=== PATIENT | male | born 1965 | race Caucasian/White ===

== ENCOUNTER 2017-03-09 11:18 | Emergency (ER) | payer MEDICARE, MEDICAID ==
[~2017-03-09] VITALS: Ht 167.6 cm; Wt 113.4 kg
[~2017-03-09 11:18] MED LIST: ?BP MED; AMLO5TAB2 PO; AMOX500C2 PO; BENZ-13 PO; CEPH-507 PO; CYCL10TA9 PO; D-ME118S7 PO; DOXY100C42 PO; DXZS4T PO; GLIP5TAB13 PO; GLIPIZIDE; HYDR-3714 PO; INSU100V16 SQ; INSU100V5 SQ; INSU100V6 SQ; LANTUS SC; LISI10TA2 PO; LISINOPRIL; LOSA50TA2 PO; METFORMIN; METO200T4 PO; NAPR-243 PO; PENI500T PO; ROSU5TAB PO; TRAM-42 PO; TRM50T PO
[2017-03-09] MEDS ORDERED: PROPOFOL DRIP (ICU) 100 ML IV ONE (11:24)
[2017-03-09] MEDS: PROPOFOL DRIP (ICU) 100 ML IV SCH ×2 (11:30→12:05)
[2017-03-09 11:38] LABS: BASOPHILS % (AUTO) 0 % (0-10); EOSINOPHILS # (AUTO) 0.1 10^3/uL (0.0-0.3); EOSINOPHILS % (AUTO) 1 % (0-10); LYMPHOCYTES # (AUTO) 0.3 X 10^3 (1.0-4.0); LYMPHOCYTES % (AUTO) 5 % (12-44); MEAN CORPUSCULAR HEMOGLOBIN 31 PG (25-34); MEAN CORPUSCULAR HGB CONC 33 G/DL (32-36); MEAN CORPUSCULAR VOLUME 94 FL (80-99); MEAN PLATELET VOLUME 10.5 FL (7.4-10.4); MONOCYTES # (AUTO) 0.4 X 10^3 (0.0-1.0); MONOCYTES % (AUTO) 6 % (0-12); NEUTROPHILS % (AUTO) 87 % (42-75); PLATELET COUNT 150 10^3/uL (130-400); RED CELL DISTRIBUTION WIDTH 14.3 % (10.0-14.5); WHITE BLOOD COUNT 5.7 10^3/uL (4.3-11.0)
--- NOTE | 2017-03-09 11:46 | ED General ---
General Chief Complaint: Altered Mental Status Stated Complaint: SEIZURE ACTIVITY Source of Information: Patient Exam Limitations: Physical Impairments, Other (unresponsive) History of Present Illness Time Seen by Provider: 11:18 Initial Comments Here emergently by EMS intubated after RSI. He apparently was at the dialysis center when he became unresponsive and not breathing. EMS was called. He was found to be hypoxic in the 70s with poor respirations and very hypertensive as well as unresponsive. EMS attempted different airway maneuvers including oral and nasopharyngeal airway. Ultimately they were unable to keep oxygen saturation of and elected RSI and intubation. Prior to intubation, patient did have brief spontaneous movement of both arms and at least the right leg. Patient never became responsive and was not handling his airway well and intubation was completed with 8.0 tube. Patient did receive fentanyl 100 g IV and Versed 5 mg IV post intubation. Blood pressure was noted to be as high as 240s over 130s per EMS. He apparently walked into dialysis and was starting dialysis when this all occurred. Reportedly, the dialysis center was trying to get him to take blood pressure medicine prior to event which she refused. Unsure of how much dialysis the patient got today. Timing/Duration: 1/2 Hour Severity: Severe Allergies and Home Medications Allergies Coded Allergies: NKANo Known Allergies (Verified Allergy, Unknown, 06/13/05) Home Medications Amlodipine Besylate 5 Mg Tab, 10 MG PO DAILY, (Reported) Benzonatate 100 Mg Capsule, 1-2 TAB PO TID, #30 Prescribed by: JESSICA DIAZ on 02/27/15 0449 Cephalexin 500 Mg Capsule, 500 MG PO TID, #15 Prescribed by: JONATHAN MOOER on 06/09/15 1321 D-Methorphan Hb/Prometh HCl 118 Ml Syrup, 5-10 ML PO Q4H, #120 Prescribed by: JESSICA DIAZ on 02/27/15 0449 Doxazosin Mesylate 4 Mg Tab, 4 MG PO HS, (Reported) Doxycycline Monohydrate 100 Mg Capsule, 100 MG PO BID, #20 Prescribed by: JESSICA DIAZ on 02/27/15 044 Insulin Aspart 100 Unit/1 Ml Susp, 12 UNIT SQ PC, (Reported) Insulin Glargine,Hum.rec.anlog 100 Unit/1 Ml Vial, 60 UNIT SQ BID, (Reported) Losartan Potassium 50 Mg Tablet, 50 MG PO DAILY, (Reported) Metoprolol Succinate 200 Mg Tab.er.24h, 200 MG PO DAILY, (Reported) Rosuvastatin Calcium 5 Mg Tablet, 20 MG PO DAILY, (Reported) Tramadol HCl 50 Mg Tablet, 50 MG PO Q4H, #20 Prescribed by: JESSICA DIAZ on 02/27/15 0449 Constitutional: see HPI Other Unable to complete review of systems due to critical condition. Past Emljiea-Xgbqqu-Putuso Hx Immunizations Up To Date Tetanus Booster (TDap): Unknown Seasonal Allergies Seasonal Allergies: No Surgeries History of Surgeries: Yes Surgeries: Arteriovenous Shunt, Dialysis, Orthopedic Cardiovascular Cardiac Disorders: High Cholesterol, Hypertension Reproductive System Hx Reproductive Disorders: No Sexually Transmitted Disease: No HIV/AIDS: No Genitourinary Genitourinary Disorders: Renal Failure, Dialysis Musculoskeletal Musculoskeletal Disorders: Back Injury Endocrine Endocrine Disorders: Diabetes, Non-Insulin dep HEENT Loss of Vision: Denies Hearing Impairment: Denies Blood Transfusions Adverse Reaction to a Blood Tr: No Reviewed Nursing Assessment Reviewed/Agree w Nursing PMH: Yes Family Medical History Other All records per chart review as patient is unresponsive and intubated. Family Medial History: Blood clots 19 MOTHER Diabetes mellitus 19 MOTHER Hypertension 19 MOTHER Physical Exam Vital Signs Vital Sign - Last 12Hours 03/09/17 03/09/17 11:30 11:41 Temp 98.0 Pulse 92 Resp 14 B/P (MAP) 162/91 Pulse Ox 96 O2 Delivery Mechanical Ventilator FiO2 100 Capillary Refill : General Appearance: WD/WN, Obese, Other (unresponsive) HEENT: PERRL/EOMI, Pharynx Normal Neck: Non Tender, Supple Respiratory: Lungs Clear (with bagging), Other (equal breath sounds bilaterally with bagging) Cardiovascular: Regular Rate, Rhythm, No Murmur Gastrointestinal: Non Tender, No Distended Extremity: Normal Inspection, No Pedal Edema, Other (dialysis shunt to her left arm.) Neurologic/Psychiatric: Other (unresponsive) Skin: Normal Color, Warm/Dry Focused Exam Evaluation Lactate Level Laboratory Tests 03/09/17 11:28: Lactic Acid Level 5.86*H Lactic Acid Level Laboratory Tests Test 03/09/17 11:28 Lactic Acid Level 5.86 MMOL/L (0.50-2.00) *H Progress/Results/Core Measures Suspected Sepsis SIRS Temperature: Pulse: Respiratory Rate: Laboratory Tests 03/09/17 11:25: White Blood Count 5.7 Blood Pressure / Mean: Laboratory Tests 03/09/17 11:28: Lactic Acid Level 5.86*H Laboratory Tests 03/09/17 11:25: Creatinine 5.21H, Platelet Count 150, Total Bilirubin 0.8 Results/Orders Lab Results Laboratory Tests Test 03/09/17 11:25 03/09/17 11:28 03/09/17 11:39 Range/Units White Blood Count 5.7 4.3-11.0 10^3/uL Red Blood Count 3.10 L 4.35-5.85 10^6/uL Hemoglobin 9.6 L 13.3-17.7 G/DL Hematocrit 29 L 40-54 % Mean Corpuscular Volume 94 80-99 FL Mean Corpuscular Hemoglobin 31 25-34 PG Mean Corpuscular Hemoglobin Concent 33 32-36 G/DL Red Cell Distribution Width 14.3 10.0-14.5 % Platelet Count 150 130-400 10^3/uL Mean Platelet Volume 10.5 H 7.4-10.4 FL Neutrophils (%) (Auto) 87 H 42-75 % Lymphocytes (%) (Auto) 5 L 12-44 % Monocytes (%) (Auto) 6 0-12 % Eosinophils (%) (Auto) 1 0-10 % Basophils (%) (Auto) 0 0-10 % Neutrophils # (Auto) 5.0 1.8-7.8 X 10^3 Lymphocytes # (Auto) 0.3 L 1.0-4.0 X 10^3 Monocytes # (Auto) 0.4 0.0-1.0 X 10^3 Eosinophils # (Auto) 0.1 0.0-0.3 10^3/uL Basophils # (Auto) 0.0 0.0-0.1 10^3/uL Neutrophils % (Manual) 93 % Lymphocytes % (Manual) 4 % Monocytes % (Manual) 2 % Eosinophils % (Manual) 1 % Blood Morphology Comment NORMAL Sodium Level 136 135-145 MMOL/L Potassium Level 3.3 L 3.6-5.0 MMOL/L Chloride Level 94 L 98-107 MMOL/L Carbon Dioxide Level 22 21-32 MMOL/L Anion Gap 20 H 5-14 MMOL/L Blood Urea Nitrogen 28 H 7-18 MG/DL Creatinine 5.21 H 0.60-1.30 MG/DL Estimat Glomerular Filtration Rate 12 BUN/Creatinine Ratio 5 Glucose Level 200 H 70-105 MG/DL Calcium Level 8.2 L 8.5-10.1 MG/DL Magnesium Level 1.9 1.8-2.4 MG/DL Total Bilirubin 0.8 0.1-1.0 MG/DL Aspartate Amino Transf (AST/SGOT) 24 5-34 U/L Alanine Aminotransferase (ALT/SGPT) 21 0-55 U/L Alkaline Phosphatase 78 40-136 U/L Creatine Kinase MB 18.2 *H <6.6 NG/ML Troponin I < 0.30 <0.30 NG/ML C-Reactive Protein High Sensitivity 0.34 0.00-0.50 MG/DL Total Protein 7.8 6.4-8.2 GM/DL Albumin 4.1 3.2-4.5 GM/DL Lactic Acid Level 5.86 *H 0.50-2.00 MMOL/L Urine Color YELLOW Urine Clarity CLEAR Urine pH 8 5-9 Urine Specific [place] 1.015 L 1.016-1.022 Urine Protein 4+ NEGATIVE Urine Glucose (UA) 2+ H NEGATIVE Urine Ketones NEGATIVE NEGATIVE Urine Nitrite NEGATIVE NEGATIVE Urine Bilirubin NEGATIVE NEGATIVE Urine Urobilinogen NORMAL NORMAL MG/DL Urine Leukocyte Esterase NEGATIVE NEGATIVE Urine RBC (Auto) 4+ H NEGATIVE Urine RBC 2-5 H /HPF Urine WBC 5-10 H /HPF Urine Squamous Epithelial Cells 0-2 /HPF Urine Crystals NONE /LPF Urine Amorphous Sediment FEW RAJENDRA URATES H /LPF Urine Bacteria TRACE /HPF Urine Casts NONE /LPF Urine Mucus SMALL H /LPF Urine Other FEW SPERM H /HPF Urine Culture Indicated YES My Orders Orders - SIMI DODGE MD Propofol Drip (Icu) (Diprivan Drip (Icu) (03/09/17 11:24) Cbc With Automated Diff (03/09/17 11:25) Comprehensive Metabolic Panel (03/09/17 11:25) Creatine Kinase Mb (03/09/17 11:25) Hs C Reactive Protein (03/09/17 11:25) Lactic Acid Analyzer (03/09/17 11:25) Magnesium (03/09/17 11:25) Troponin I (03/09/17 11:25) Ua Culture If Indicated (03/09/17 11:25) Ct Head Wo-R/O Stroke (03/09/17 11:25) Saline Lock/Iv-Start (03/09/17 11:25) Chest 1 View, Ap/Pa Only (03/09/17 11:25) Rt Request For Service (03/09/17 11:25) Ekg Tracing (03/09/17 11:25) Catheter(Urinary) Insert & Ass 03,15 (03/09/17 11:25) O2 (03/09/17 11:25) Monitor-Rhythm Ecg Trace Only (03/09/17 11:25) End Tidal Co2 (03/09/17 11:25) Blood Culture (03/09/17 11:25) Ng Tube Insert & Assessment (03/09/17 11:25) Propofol Drip (Icu) (Diprivan Drip (Icu) (03/09/17 11:30) Sputum Culture (03/09/17 11:40) Manual Differential (03/09/17 11:25) Midazolam Injection (Versed Injection) (03/09/17 12:15) Midazolam Injection (Versed Injection) (03/09/17 12:09) Urine Culture (03/09/17 11:39) Piperacillin Sodium/Tazobactam (Zosyn Vi (03/09/17 12:45) Ns (Ivpb) (Sodium C... W/Nicardipine Iv (03/09/17 13:15) Levetiracetam Injection (Keppra Injectio (03/09/17 13:07) Medications Given in ED Current Medications Medications Dose Ordered Sig/Jesse Route Start Time Stop Time Status Last Admin Dose Admin Midazolam HCl 5 mg ONCE ONCE IVP 03/09/17 12:15 03/09/17 12:16 DC 03/09/17 12:10 5 MG Piperacillin Sod/ Tazobactam Sod 2.25 gm/Sodium Chloride 100 ml @ 200 mls/hr ONCE ONCE IV 03/09/17 12:45 03/09/17 13:14 DC 03/09/17 13:18 200 MLS/HR Vital Signs/I&O Vital Sign - Last 12Hours 03/09/17 03/09/17 03/09/17 03/09/17 11:30 11:41 12:05 12:12 Temp 98.0 97.3 98.5 Pulse 92 91 90 96 Resp 14 19 18 14 B/P (MAP) 162/91 162/91 172/98 (122) Pulse Ox 96 95 96 96 O2 Delivery Mechanical Ventilator Mechanical Ventilator FiO2 100 03/09/17 12:51 Pulse 95 Resp 20 Pulse Ox 98 FiO2 80 Capillary Refill : Progress Note : Progress Note Seen and evaluated on arrival by EMS. Patient has been intubated in is being ventilated via [id number]. IV established. Patient has IO established by EMS to the left tibia. Labs, blood cultures, lactic acid, EKG, chest x-ray and CT head ordered. Postintubation sedation initiated with propofol drip. 1200: I did speak with patient's primary care doctor to try to establish is typical place of care at [facility] and it appears to be [facility] in [facility]. We will initiate transfer process with them after CT head is complete. 1232: Notified by radiology of interparenchymal and subarachnoid bleed with concerns for MCA distribution aneurysm with rupture. The closest center available to care for this type of significant injury would be [facility] in [place]. 1236 initiated contact with [facility]. 1245: Report given. Pending acceptance. Family has been updated of all concerns and the critical nature of the situation. Helicopter flight service on standby. 1304: has called back and they have accepted patient for transfer. Dr. Del Valle accepting. Crusting initiation of Keppra 1000 mg IV as well as initiated standard to keep blood pressure less than 140 systolic. Currently his blood pressure is 147/87. We will initiate nicardipine drip to decrease blood pressure. While in 1330: Report given to flight crew by me. To [facility]. ECG Initial ECG Impression Date: Mar 09, 2017 Initial ECG Impression Time: :22 Initial ECG Rate: 93 Initial ECG Rhythm: Normal Sinus Comment Sinus rhythm with left atrial abnormality. LVH noted. Normal axis. Nonspecific intraventricular conduction delay noted. Overall similar to previous of 02/27/15. Interpreted by me. No evidence of ST elevation [place]. Diagnostic Imaging Diagonstic Imaging: Xray Plain Films/CT/US/NM/MRI: chest [facility] [place], [place] NAME: HARMEET DAVIS REC#: [id number] PT STATUS: REG ER : 1965 PHYSICIAN: SIMI DODGE MD ADMIT DATE: 03/09/17/ER Draft Date of Exam:03/09/17 CHEST 1 VIEW, AP/PA ONLY INDICATION: Tube placement, stroke. COMPARISON: 02/27/2015. TECHNIQUE: Frontal radiographs of the chest dated 03/09/2017. FINDINGS: Endotracheal tube is present with the distal tip approximately 1.7 cm above the level of the tiara. Enteric catheter is present with the distal tip extending into the stomach. The cardiac silhouette appears enlarged, though the left heart border is predominantly obscured. Near-complete opacification of the left hemithorax. The right lung appears grossly clear. No significant right pleural effusion. No pneumothorax. No acute osseous abnormality. IMPRESSION: 1. Near complete opacification of the left hemithorax. This likely relates to a combination of pleural fluid with adjacent atelectasis and/or infiltrate. Recommend clinical correlation. Radiographic followup is recommended to ensure resolution as underlying mass lesion in this location is not excluded. 2. Cardiomegaly. 3. Slightly low-lying endotracheal tube. This has been retracted prior to dictation. 4. Additional findings as above. 5. Findings discussed Dr. Dodge prior to dictation. Dictated on workstation # [id number] Dict: 03/09/17 1236 Trans: 03/09/17 1247 KB [id number] Interpreted by: KALYANI BRAY MD Electronically signed by: Reviewed: Reviewed by Me, Discussed w/Radiologist Diagonstic Imaging: CT Plain Films/CT/US/NM/MRI: head Comments VIA [place], [place] NAME: HARMEET DAVIS [facility] REC#: [id number] PT STATUS: REG ER : 1965 PHYSICIAN: SIMI DODGE MD ADMIT DATE: 03/09/17/ER Draft Date of Exam:03/09/17 CT HEAD WO-R/O STROKE INDICATION: Stroke. COMPARISON: None available. TECHNIQUE: Multiple contiguous axial CT images are obtained through the head without use of intravenous contrast dated 03/09/2017. FINDINGS: A 2.4 x 2.0 cm hypodensity is identified within the anterior aspect of the right temporal lobe. This demonstrates minimal adjacent hypodensity. This is associated with a small amount of extra-axial fluid which appears to be within the subarachnoid space overlying the right frontal and temporal lobes. No additional intracranial hemorrhage. No midline shift, herniation, or hydrocephalus. No CT evidence of a large acute territorial ischemic infarction. The orbits are unremarkable. Endotracheal tube and nasoenteric catheter are partially visualized. The calvarium and extracalvarial soft tissues are unremarkable. IMPRESSION: Findings concerning for intraparenchymal hemorrhage within the anterior aspect of the right temporal lobe with adjacent edema. This is associated with a small amount of subarachnoid hemorrhage overlying the right frontotemporal lobes. Given location, this could relate to an underlying middle cerebral artery aneurysm. Therefore, recommend a CT angiogram of the head for further evaluation. Additional findings as above. Findings discussed with Dr. Dodge at 1235 hours on 03/09/2017. Dictated on workstation # [id number] Dict: 03/09/17 1228 Trans: 03/09/17 1244 KB [id number] Interpreted by: KALYANI BRAY MD Electronically signed by: Reviewed: Reviewed by Me, Discussed w/Radiologist Departure Impression Impression: Primary Impression: Subarachnoid hemorrhage Additional Impressions: Intraparenchymal hemorrhage of brain Brain aneurysm Disposition: XF [facility]-TRM HOSP Condition: Critical Transfer Time Spoke to Accepting Phy: 13:04 Transfer Time: 13:04 Transfer Facility: [place], [place], Dr. Del Valle accepting Method of Transfer: Air Departure-Patient Inst. Referrals: [facility] (PCP/Family) Primary Care Physician SIMI DODGE MD Mar 09, 2017 11:46
[2017-03-09 11:55] LABS: ALANINE AMINOTRANSFERASE 21 U/L (0-55); ALBUMIN 4.1 GM/DL (3.2-4.5); ANION GAP 20 MMOL/L (5-14); ASPARTATE AMINO TRANSFERASE 24 U/L (5-34); BILIRUBIN,TOTAL 0.8 MG/DL (0.1-1.0); BLOOD UREA NITROGEN 28 MG/DL (7-18); BUN/CREATININE RATIO 5; CALCIUM 8.2 MG/DL (8.5-10.1); CARBON DIOXIDE 22 MMOL/L (21-32); CHLORIDE 94 MMOL/L (98-107); CREATININE SERUM 5.21 MG/DL (0.60-1.30); GFR ESTIMATED 12; GLUCOSE 200 MG/DL (70-105); MAGNESIUM 1.9 MG/DL (1.8-2.4); POTASSIUM 3.3 MMOL/L (3.6-5.0); SODIUM 136 MMOL/L (135-145); TOTAL PROTEIN 7.8 GM/DL (6.4-8.2); hs C REACTIVE PROTEIN 0.34 MG/DL (0.00-0.50)
[2017-03-09 11:58] LABS: BILIRUBIN,URINE NEGATIVE (NEGATIVE); KETONES,URINE NEGATIVE (NEGATIVE); LEUKOCYTE ESTERASE ,URINE NEGATIVE (NEGATIVE); NITRITE,URINE NEGATIVE (NEGATIVE); PH,URINE 8 (5-9); PROTEIN,URINE 4+ (NEGATIVE); UROBILINOGEN,URINE NORMAL (NORMAL)
[2017-03-09 12:04] LABS: TROPONIN I < 0.30 NG/ML (<0.30)
[2017-03-09] MEDS ORDERED: MIDAZOLAM 5 MG/5 ML (VERSED) VIAL ONE (12:09)
[2017-03-09] MEDS ORDERED: MIDAZOLAM 5 MG/5 ML (VERSED) VIAL IVP ONE (12:15)
[2017-03-09 12:21] LABS: SQUAMOUS EPITHELIAL CELL,UR 0-2 /HPF
--- NOTE | 2017-03-09 12:44 | Diagnostic Imaging Report ---
INDICATION: Stroke. COMPARISON: None available. TECHNIQUE: Multiple contiguous axial CT images are obtained through the head without use of intravenous contrast dated 03/09/2017. FINDINGS: A 2.4 x 2.0 cm hypodensity is identified within the anterior aspect of the right temporal lobe. This demonstrates minimal adjacent hypodensity. This is associated with a small amount of extra-axial fluid which appears to be within the subarachnoid space overlying the right frontal and temporal lobes. No additional intracranial hemorrhage. No midline shift, herniation, or hydrocephalus. No CT evidence of a large acute territorial ischemic infarction. The orbits are unremarkable. Endotracheal tube and nasoenteric catheter are partially visualized. The calvarium and extracalvarial soft tissues are unremarkable. IMPRESSION: Findings concerning for intraparenchymal hemorrhage within the anterior aspect of the right temporal lobe with adjacent edema. This is associated with a small amount of subarachnoid hemorrhage overlying the right frontotemporal lobes. Given location, this could relate to an underlying middle cerebral artery aneurysm. Therefore, recommend a CT angiogram of the head for further evaluation. Additional findings as above. Findings discussed with Dr. Vivas at 1235 hours on 03/09/2017. Dictated by: Dictated on workstation # [id number]
[2017-03-09] MEDS ORDERED: PIPERACILLIN SODIUM/TAZOBACTAM 2.25 GM in NS (IVPB) 100 ML IV ONE (12:45)
--- NOTE | 2017-03-09 12:47 | Diagnostic Imaging Report ---
INDICATION: Tube placement, stroke. COMPARISON: 02/27/2015. TECHNIQUE: Frontal radiographs of the chest dated 03/09/2017. FINDINGS: Endotracheal tube is present with the distal tip approximately 1.7 cm above the level of the tiara. Enteric catheter is present with the distal tip extending into the stomach. The cardiac silhouette appears enlarged, though the left heart border is predominantly obscured. Near-complete opacification of the left hemithorax. The right lung appears grossly clear. No significant right pleural effusion. No pneumothorax. No acute osseous abnormality. IMPRESSION: 1. Near complete opacification of the left hemithorax. This likely relates to a combination of pleural fluid with adjacent atelectasis and/or infiltrate. Recommend clinical correlation. Radiographic followup is recommended to ensure resolution as underlying mass lesion in this location is not excluded. 2. Cardiomegaly. 3. Slightly low-lying endotracheal tube. This has been retracted prior to dictation. 4. Additional findings as above. 5. Findings discussed Dr. Vivas prior to dictation. Dictated by: Dictated on workstation # [id number]
[2017-03-09] MEDS ORDERED: LEVETIRACETAM INJECTION 1,000 MG in NS (IVPB) 100 ML IV STA (13:07)
[2017-03-09 13:09] LABS: EOSINOPHILS % (MANUAL) 1 %; LYMPHOCYTES % (MANUAL) 4 %; NEUTROPHILS % (MANUAL) 93 %
[2017-03-09] MEDS ORDERED: niCARdipine IV 50 MG in NS (IVPB) 230 ML IV SCH (13:15)
[2017-03-09 14:08] VITALS: BP 145/85
== END 2017-03-09 14:08 | disposition short-term general hospital (02) ==
LOC: EDUNIT# 11:18 → ER 11:20
DX: I60.9 Nontraumatic subarachnoid hemorrhage, unspecified (principal); E78.00 Pure hypercholesterolemia, unspecified; I10 Essential (primary) hypertension; E11.9 Type 2 diabetes mellitus without complications; Z99.2 Dependence on renal dialysis
CPT/HCPCS: 36415; 51702; 70450; 71010; 80053; 81000; 82553; 83605; 83735; 84484; 85007; 85027; 86141; 87040; 87070; 87077; 87088; 87186; 87205; 93005; 93041; 94799

== ENCOUNTER 2017-03-26 16:23 | Inpatient (IN) | payer MEDICARE, MEDICAID ==
[~2017-03-26] VITALS: Ht 175.3 cm; Wt 104.1 kg
[2017-03-26 18:15] VITALS: BP 176/42
--- OUTSIDE RECORDS SUMMARY | 2017-03-26 19:19 | XMS REPORT | Continuity of Care Document ---
Author Author [employer] Organization [employer] Address Unknown Phone Unavailable Care Team Providers Care Manhole Stripper Name Role Phone [employer] Unavailable Unavailable Problems Medications Allergies, Adverse Reactions, Alerts Immunizations Results Vital Signs Encounters Procedures Plan of Care Social History Assessment and Plan Family History Value Date Source Advance Directives Order Name Results Value Date Source
--- OUTSIDE RECORDS SUMMARY | 2017-03-26 19:20 | XMS REPORT | Clinical Summary ---
Author Author [facility] Organization [facility] Address Unknown Phone Unavailable Care Team Providers Care Appeals Rn Name Role Phone PCP Unavailable Source Comments Some departments are not documenting in the electronic medical record. If you do not see the information that you expected, contact Release of Information in the Health Information Management department at [phone] for further assistance in locating additional records.[facility] Allergies No Known Allergies Current Medications Prescription Sig. Disp. Refills Start End Date Status Date amLODIPine (NORVASC) 10 Take 10 mg by mouth Active mg tablet daily. ferric citrate 210 mg Take 210 mg by mouth Active iron tab twice daily. calcium acetate (PHOSLO) Take two tablets with Active 667 mg capsule meals and take one with snacks doxazosin (CARDURA) 8 mg Take 8 mg by mouth at Active tablet bedtime daily. atorvastatin (LIPITOR) 10 Take 10 mg by mouth at Active mg tablet bedtime daily. albuterol (VENTOLIN HFA) Inhale 2 puffs by mouth Active 90 mcg/actuation inhaler into the lungs every 4 hours as needed for Wheezing or Shortness of Breath. Shake well before use. acetaminophen (TYLENOL) Take 2 tablets by mouth 0 03/26/20 Active 325 mg tablet every 4 hours as needed. 17 levETIRAcetam (KEPPRA) Take 2 tablets by mouth 03/26/20 Active 750 mg tablet daily. Do not stop being 17 used for seizure control nystatin (MYCOSTATIN) Take 5 mL by mouth four 0 03/26/20 Active 100,000 units/mL oral times daily. 17 suspension QUEtiapine (SEROQUEL) 50 Take 1 tablet by mouth 03/26/20 Active mg tablet twice daily. 17 metoprolol XL (TOPROL XL) Take 1 tablet by mouth 03/26/20 Active 100 mg extended release twice daily. Titration 17 tablet towards home dose 200mg BID niMODipine (NIMOTOP) 30 Take 2 capsules by mouth 48 capsule 0 03/30/20 Active mg capsule every 4 hours for 4 days. 17 17 senna/docusate Take 10 mL by mouth twice 03/26/20 Active (SENOKOT-S) 8.8/50 mg /10 daily. 17 mL solution methylcellulose Apply 1 drop to right eye 12 03/26/20 Active (GONIOSOL) 2.5 % as directed as Needed. 17 ophthalmic Indications: DRY EYE solutionIndications: DRY EYE melatonin 3 mg tab Take 1 tablet by mouth at 03/26/20 Active bedtime daily. 17 losartan (COZAAR) 50 mg Take 2 tablets by mouth 90 tablet 3 03/26/20 Active tablet daily. 17 heparin (porcine) PF Inject 0.5 mL under the 03/26/20 Active 5,000units/0.5mL skin every 8 hours. 17 injection syringe fluticasone/salmeterol Inhale 1 puff by mouth 03/15/20 Discontin (ADVAIR DISKUS) 250/50 into the lungs daily. 17 ued mcg inhalation disk baclofen (LIORESAL) 10 mg Take 10 mg by mouth twice 03/26/20 Suspended tablet daily. 17 HYDROcodone/acetaminophen Take 1 tablet by mouth 03/26/20 Suspended (NORCO) 7.5/325 mg tablet every 6 hours as needed 17 for Pain losartan-hydrochlorothiaz Take 1 tablet by mouth 03/26/20 Suspended kris (HYZAAR) 100-25 mg every morning. 17 tablet furosemide (LASIX) 40 mg Take 40 mg by mouth twice 03/26/20 Suspended tablet daily. 17 metoprolol tartrate Take 200 mg by mouth 03/11/20 Discontin (LOPRESSOR) 100 mg tablet twice daily. 17 ued losartan(+) (COZAAR) 100 Take 100 mg by mouth 03/11/20 Discontin mg tablet daily. 17 ued metOLazone (ZAROXOLYN) 5 Take 5 mg by mouth daily. 03/15/20 Discontin mg tablet 17 ued METOPROLOL SUCCINATE PO Take 200 mg by mouth at 03/09/20 Discontin bedtime daily. 17 ued minoxidil (LONITEN) 10 mg Take 10 mg by mouth twice 03/15/20 Discontin tablet daily. 17 ued insulin aspart (NOVOLOG) Inject 12 Units under the 03/15/20 Discontin 100 unit/mL injection skin three times daily 17 ued with meals. insulin glargine (LANTUS) Inject 60 Units under the 03/15/20 Discontin 100 unit/mL injection skin twice daily. 1 vial 17 ued contains 10mL metoprolol XL (TOPROL XL) Take 200 mg by mouth 03/26/20 Suspended 200 mg extended release twice daily. 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 Overview: Added automatically from request for surgery [id number] Acquired skull defect 03/09/2017 Overview: Added automatically from request for surgery [id number] Encounters Date Type Specialty Care Team Description 03/24/2017 Anesthesia Tania Britt CRNA Event 03/22/2017 Procedure Pass 03/16/2017 Procedure Pass 03/13/2017 Procedure Pass 03/13/2017 Procedure Pass 03/13/2017 Procedure Pass 03/11/2017 Procedure Pass 03/10/2017 Anesthesia Afia Person CRNA Event 03/10/2017 Procedure Pass 03/10/2017 Surgery Edgar Bee MD REPAIR ANEURYSM CRANIOTOMY 03/10/2017 Procedure Pass 03/10/2017 Procedure Pass 03/10/2017 Procedure Pass 03/10/2017 Surgery Edgar Bee MD Rt pterional craniotomy for clipping of MCA aneurysm 03/09/2017 [facility] Melissa Del Valle MD Ruptured cerebral - Encounter Edgar Bee MD aneurysm ([facility]) 03/26/2017 03/09/2017 Hospital Radiology Encounter 03/09/2017 Anesthesia Flor Perez MD Event 03/09/2017 Prep for Case Faraz Hernandez MD 03/09/2017 Anesthesia Radiology Juan Carlos Bunch MD Event 03/09/2017 Hospital Radiology Encounter 03/09/2017 Ancillary Radiology Outpatient, Radiologist Diagnosis unknown Orders 03/09/2017 Procedure Pass from Last 3 Months Family History Medical History Relation Name Comments Blood Clots Mother Diabetes Mother Hypertension Mother Relation Name Status Comments Mother Social History Tobacco Use Types Packs/Day Years Used Date Current Every Day Smoker 1 30 Sex Assigned at Date Recorded Not on file Last Filed Vital Signs Vital Sign Reading Time Taken Blood Pressure 192/83 03/26/2017 1:47 PM [employer]ICE [employer]AD Pulse 72 03/26/2017 1:47 PM [employer] SERVICE LEAD Temperature 36.8 C (98.3 F) 03/26/2017 1:47 PM [employer] SERVICE LEAD Respiratory Rate - - Oxygen Saturation 95% 03/26/2017 1:47 PM [employer] SERVICE LEAD Inhaled Oxygen - - Concentration Weight 105.9 kg (233 lb 7.5 oz) 03/26/2017 12:47 PM [employer]OD SERVICE LEAD Height 172.7 cm (5' 8") 03/11/2017 3:28 PM [employer]OD SERVICE LEAD Body Mass Index 35.5 03/26/2017 12:47 PM [employer]OD SERVICE LEAD Plan of Treatment Health Maintenance Due Date Last Done Comments PHYSICAL (COMPREHENSIVE) 08/21/1974 EXAM PERTUSSIS VACCINE 08/21/1978 TETANUS VACCINE 08/21/1984 INFLUENZA VACCINE 11/06/2016 Implants Implanted Type Area Medical Device Assembler Device Expiration Model / Identifier Date Serial / Lot Patch Dural 2x2in Lyoplant Cranial AESCULAP NEURO 01/05/2022 106 7020 / Bovine Pericardium Onlay - [id number] DIVISION [id number] / Implanted: Qty: 1 on 03/10/2017 by [id number] Edgar Bee MD Clip Aneurysm 21mm S-Lhusfokp-Pxge UNIDENTIFIED 45.858 / 1.77n 13.5mm Open - [id number] [facility] [id number] / Implanted: Qty: 1 on 03/10/2017 by [id number] Edgar Bee MD Clip Aneurysm 3mm 3.5mm UNIDENTIFIED 45.597 / R-Lknytxfj-Bmeg 1.47n 7.7mm Open - [facility] [id number] / [id number] Implanted: Qty: 1 on 03/10/2017 by Edgar Bee MD L-Aneurysm Clip Ti Perm - [id number] UNIDENTIFIED 45.902 / Implanted: Qty: 1 on 03/10/2017 by [facility] [id number] / [place] [id number] Mesh Cranial .6mm Large Temporal UNIDENTIFIED 25-006-51- Titanium Latex Free - [id number] [facility] 09 / Implanted: Qty: 1 on 03/10/2017 by [id number] Edgar Bee MD / [id number] Cover Rashmi Hole L17mm Od3mm - A[facility] [id number]- [id number] IMPLANTS 09 / Implanted: Qty: 1 on 03/10/2017 by [id number] Edgar Bee MD / [id number] Plate Bone 1.5mm Long Straight [facility] 25-302-13- Cranial Titanium 2 Hole Low - IMPLANTS 09 / [id number] Implanted: Qty: 1 on 03/10/2017 by / Edgar Bee MD [id number] Substitute Tissue 5x4in Lyoplant AESCULAP NEURO 106 7050 / Dura Onlay Absorbable - [id number] DIVISION [id number] / Implanted: Qty: 1 on 03/10/2017 by [id number] Edgar Bee MD Screw Neuro 1.5x4mm Drill Free - Right: [facility] 25-975-04- Sna Skull IMPLANTS 91 / Implanted: Qty: 10 on 03/10/2017 by NA / Edgar Bee MD NA Procedures Procedure Name Priority Date/Time Associated Diagnosis Comments CONSULT IV THERAPY TEAM Routine 03/19/2017 9:43 AM [employer]OD SERVICE LEAD ECG-SCAN 03/12/2017 Results for this 10:05 AM FOOD SERVICE LEAD procedure are in the results section. ECG-SCAN 03/12/2017 Results for this 10:05 AM FOOD SERVICE LEAD procedure are in the results section. ECG-SCAN 03/12/2017 Results for this 10:05 AM FOOD SERVICE LEAD procedure are in the results section. ECG-SCAN 03/12/2017 Results for this 10:05 AM FOOD SERVICE LEAD procedure are in the results section. REPAIR ANEURYSM 03/10/2017 Brain aneurysm CRANIOTOMY 8:15 PM FOOD SERVICE LEAD Rt pterional craniotomy 03/10/2017 Ruptured cerebral for clipping of MCA 8:00 AM FOOD SERVICE LEAD aneurysm (HCC) aneurysm from Last 3 Months Results * POC GLUCOSE (03/26/2017 1:47 PM) Only the most recent of 71 results within the time period is included. Component Value Ref Range Glucose, POC 103 (H) 70 - 100 MG/DL Specimen Performing Laboratory [facility] [address] [place] [address] * HEMODIALYSIS DATE (03/26/2017 1:10 PM) Only the most recent of 9 results within the time period is included. Narrative Dima Glasgow RN 03/26/20171:10 PM 0848: Consent confirmed, assessment complete and charted. Patient's LFA AV Fistula was accessed with two #15 fistula needles upon the first attempt. Treatment was started at this time. 1247: Blood returned, needles de-cannulated, bleeding stopped in <10min. Treatment completed at this time. * HEMODIALYSIS INPATIENT (03/26/2017 1:10 PM) Only the most recent of 9 results within the time period is included. Rose Glasgow RN 03/26/20171:10 PM 0848: Consent confirmed, assessment complete and charted. Patient's LFA AV Fistula was accessed with two #15 fistula needles upon the first attempt. Treatment was started at this time. 1247: Blood returned, needles de-cannulated, bleeding stopped in <10min. Treatment completed at this time. * CBC AND DIFF (03/26/2017 4:20 AM) Only the most recent of 17 results within the time period is included. Component Value Ref Range White Blood Cells 6.1 4.5 - 11.0 K/UL RBC 3.00 (L) 4.4 - 5.5 M/UL Hemoglobin 9.4 (L) 13.5 - 16.5 GM/DL Hematocrit 27.2 (L) 40 - 50 % MCV 90.8 80 - 100 FL MCH 31.5 26 - 34 PG MCHC 34.6 32.0 - 36.0 G/DL RDW 14.5 11 - 15 % Platelet Count 221 150 - 400 K/UL MPV 8.5 7 - 11 FL Neutrophils 79 (H) 41 - 77 % Lymphocytes 7 (L) 24 - 44 % Monocytes 9 4 - 12 % Eosinophils 4 0 - 5 % Basophils 1 0 - 2 % Absolute Neutrophil Count 4.80 1.8 - 7.0 K/UL Absolute Lymph Count 0.40 (L) 1.0 - 4.8 K/UL Absolute Monocyte Count 0.60 0 - 0.80 K/UL Absolute Eosinophil Count 0.20 0 - 0.45 K/UL Absolute Basophil Count 0.00 0 - 0.20 K/UL Specimen Performing Laboratory [facility] [address] [place] [address] * BASIC METABOLIC PANEL (03/26/2017 4:20 AM) Only the most recent of 18 results within the time period is included. Component Value Ref Range Sodium 134 (L) 137 - 147 MMOL/L Potassium 5.7 (H) 3.5 - 5.1 MMOL/L Chloride 93 (L) 98 - 110 MMOL/L CO2 16 (L) 21 - 30 MMOL/L Anion Gap 25 (H) 3 - 12 Glucose 118 (H) 70 - 100 MG/DL Blood Urea Nitrogen 77 (H) 7 - 25 MG/DL Creatinine 10.46 (H) 0.4 - 1.24 MG/DL Calcium 11.0 (H) 8.5 - 10.6 MG/DL eGFR Non 5 (L) >60 mL/min Comment: The eGFR is not validated for use in drug dosing adjustments. Continue to use estimated creatinine clearance per dosing reference text. Please contact the Clinical Pharmacist for questions. eGFR 6 (L) >60 mL/min Comment: The eGFR is not validated for use in drug dosing adjustments. Continue to use estimated creatinine clearance per dosing reference text. Please contact the Clinical Pharmacist for questions. Specimen Performing Laboratory [facility] [address] [place] [id number] * PHOSPHORUS (03/24/2017 4:13 AM) Only the most recent of 17 results within the time period is included. Component Value Ref Range Phosphorus 6.5 (H) 2.0 - 4.0 MG/DL Specimen Performing Laboratory [facility] [address] [place] [address] * MAGNESIUM (03/23/2017 4:39 AM) Only the most recent of 15 results within the time period is included. Component Value Ref Range Magnesium 2.6 1.6 - 2.6 mg/dL Specimen Performing Laboratory [facility] [address] [place] [address] * BLOOD GASES, ARTERIAL (03/23/2017 4:39 AM) Only the most recent of 18 results within the time period is included. Component Value Ref Range pH-Arterial 7.26 (L) 7.35 - 7.45 pCO2-Arterial 36 35 - 45 MMHG pO2-Arterial 74 (L) 80 - 100 MMHG Base Deficit-Arterial 10.6 MMOL/L O2 Sat-Arterial 92.5 (L) 95 - 99 % Gqgrsenxhtn-PKF-Vgt 16.1 (L) 21 - 28 MMOL/L Specimen Performing Laboratory Blood, arterial - Blood [facility] [address] [place] [address] * IONIZED CALCIUM (03/23/2017 4:39 AM) Only the most recent of 15 results within the time period is included. Component Value Ref Range Ionized Calcium 1.25 1.0 - 1.3 MMOL/L Specimen Performing Laboratory [facility] [address] [place] [address] * CT HEAD WO CONTRAST (03/22/2017 5:59 PM) Only the most recent of 2 results within the time period is included. Specimen Performing Laboratory [facility] RES[facility] Impressions 1.Prior right pterional craniectomy with improvement in right cerebral sulcal effacement and resolution of transcranial herniation. 2.Prior right MCA bifurcation aneurysm clipping. 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 4.Near-complete resolution of right sylvian fissure subarachnoid hemorrhage. No new acute intracranial hemorrhage. By my electronic signature, I attest that I have personally reviewed the images for this examination and formulated the interpretations and opinions expressed in this report Finalized by Torito Warner M.D. on 03/23/2017 2:31 AM. Dictated by Elinor Hernandez M.D. on 03/23/2017 1:[address] HEAD HISTORY: Status post craniectomy, subarachnoid hemorrhage status post clipping. TECHNIQUE: Multiple contiguous axial images were obtained of the head without IV contrast. Post processing coronal reconstruction images were made from the axial images. COMPARISON: CTA head March 13, 2017 FINDINGS: Prior right pterional craniectomy. There has been interval resolution of transcranial herniation at the craniectomy site and improvement in right cerebral sulcal effacement. Prior right MCA bifurcation aneurysm clipping. There has been expected evolution of low attenuation within the anterior right temporal lobe consistent with patient's known infarct. Near-complete resolution of right sylvian fissure subarachnoid hemorrhage. No new acute intracranial hemorrhage. Basal cisterns are patent. Redemonstration of moderate nonspecific white matter disease. Ventricles are stable in size without hydrocephalus. Partial visualization of nasogastric tube. Procedure Note Interface, Radiant Results - 03/23/2017 2:35 AM [employer]ICE LEAD CT HEAD HISTORY: Status post craniectomy, subarachnoid hemorrhage status post clipping. TECHNIQUE: Multiple contiguous axial images were obtained of the head without IV contrast. Post processing coronal reconstruction images were made from the axial images. COMPARISON: CTA head March 13, 2017 FINDINGS: Prior right pterional craniectomy. There has been interval resolution of transcranial herniation at the craniectomy site and improvement in right cerebral sulcal effacement. Prior right MCA bifurcation aneurysm clipping. There has been expected evolution of low attenuation within the anterior right temporal lobe consistent with patient's known infarct. Near-complete resolution of right sylvian fissure subarachnoid hemorrhage. No new acute intracranial hemorrhage. Basal cisterns are patent. Redemonstration of moderate nonspecific white matter disease. Ventricles are stable in size without hydrocephalus. Partial visualization of nasogastric tube. IMPRESSION 1. Prior right pterional craniectomy with improvement in right cerebral sulcal effacement and resolution of transcranial herniation. 2. Prior right MCA bifurcation aneurysm clipping. 3. 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 4. Near-complete resolution of right sylvian fissure subarachnoid hemorrhage. No new acute intracranial hemorrhage. By my electronic signature, I attest that I have personally reviewed the images for this examination and formulated the interpretations and opinions expressed in this report Finalized by Torito Warner M.D. on 03/23/2017 2:31 AM. Dictated by Elinor Hernandez M.D. on 03/23/2017 1:48 AM. * SWALLOW MOTION SERIES (03/21/2017 3:40 PM) Specimen Performing Laboratory [facility] RES[facility] Impressions SWALLOW MOTION SERIES IMPRESSION: 1. Inconsistent silent aspiration with thin consistency barium. 2. Trace laryngeal penetration with nectar thick barium. 3. Please see separately dictated report from the Department of Speech Pathology for further description. Approved by Terrence Jaime D.O. on 03/21/2017 4:38 PM By my electronic signature, I attest that I have personally reviewed the images for this examination and formulated the interpretations and opinions expressed in this report Finalized by Claudia Tinoco M.D. on 03/21/2017 4:41 PM. Dictated by Terrence Jaime D.O. on 03/21/2017 4:05 PM. Narrative SWALLOW MOTION SERIES CLINICAL INDICATION:Male, 51 years old. Dysphagia. TECHNIQUE: An explanation of the exam was provided to the patient and brief history was obtained. The swallow procedure was performed in conjunction with members of the department of speech pathology. Video fluoroscopy was performed during swallowing of various consistencies of barium. The patient tolerated the procedure well. TOTAL FLUOROSCOPY TIME: 108 seconds SWALLOW MOTION SERIES FINDINGS: Laryngeal penetration and single episode of aspiration with thin consistency barium, which did not elicit a spontaneous cough reflex. Trace laryngeal penetration with nectar thick barium. Procedure Note Interface, Radiant Results - 03/21/2017 4:44 PM FOOD SERVICE LEAD SWALLOW MOTION SERIES CLINICAL INDICATION: Male, 51 years old. Dysphagia. TECHNIQUE: An explanation of the exam was provided to the patient and brief history was obtained. The swallow procedure was performed in conjunction with members of the department of speech pathology. Video fluoroscopy was performed during swallowing of various consistencies of barium. The patient tolerated the procedure well. TOTAL FLUOROSCOPY TIME: 108 seconds SWALLOW MOTION SERIES FINDINGS: Laryngeal penetration and single episode of aspiration with thin consistency barium, which did not elicit a spontaneous cough reflex. Trace laryngeal penetration with nectar thick barium. IMPRESSION SWALLOW MOTION SERIES IMPRESSION: 1. Inconsistent silent aspiration with thin consistency barium. 2. Trace laryngeal penetration with nectar thick barium. 3. Please see separately dictated report from the Department of Speech Pathology for further description. Approved by Terrence Jaime D.O. on 03/21/2017 4:38 PM By my electronic signature, I attest that I have personally reviewed the images for this examination and formulated the interpretations and opinions expressed in this report Finalized by Claudia Tinoco M.D. on 03/21/2017 4:41 PM. Dictated by Terrence Jaime D.O. on 03/21/2017 4:05 PM. * ABDOMEN AP ONLY (03/19/2017 7:37 PM) Only the most recent of 5 results within the time period is included. Specimen Performing Laboratory [facility] RESULTS Impressions Advancement of enteric tube as noted above. Finalized by Simon Ledbetter M.D. on 03/20/2017 7:50 AM. Dictated by Simon Ledbetter M.D. on 03/20/2017 7:49 AM. Narrative Portable AP abdomen CLINICAL HISTORY: Corpak verification. COMPARISON: Earlier exam timed at 1604 hours. FINDINGS: Portable AP abdomen demonstrates partial visualization of loculated left pleural effusion and subjacent atelectasis. There is advancement of enteric tube , with tip appear to overlie the distal gastric antrum near the gastric outlet. The bowel gas pattern appears to be nonspecific and nonobstructive. The lower abdomen and pelvis are not included in the field of view of this study. Thoracic lumbar spondylosis is again noted. Procedure Note Interface, Radiant Results - 03/20/2017 7:53 AM FOOD SERVICE LEAD Portable AP abdomen CLINICAL HISTORY: Corpak verification. COMPARISON: Earlier exam timed at 1604 hours. FINDINGS: Portable AP abdomen demonstrates partial visualization of loculated left pleural effusion and subjacent atelectasis. There is advancement of enteric tube , with tip appear to overlie the distal gastric antrum near the gastric outlet. The bowel gas pattern appears to be nonspecific and nonobstructive. The lower abdomen and pelvis are not included in the field of view of this study. Thoracic lumbar spondylosis is again noted. IMPRESSION Advancement of enteric tube as noted above. Finalized by Simon Ledbetter M.D. on 03/20/2017 7:50 AM. Dictated by Simon Ledbetter M.D. on 03/20/2017 7:49 AM. * US DOPPLER VENOUS BILATERAL (03/19/2017 1:15 AM) Specimen Performing Laboratory Bilateral [facility] RESULTS Impressions No evidence of acute or occlusive femoral popliteal deep venous thrombosis in either leg. Finalized by Ronnie Nice M.D. on 03/19/2017 6:42 AM. Dictated by Ronnie Nice M.D. on 03/19/2017 6:41 AM. Narrative Bilateral lower extremity venous Doppler History: Immobility, increased risk for DVT Technique: Multiple 2-D real-time grayscale sonographic images were obtained throughout the lower extremities. In addition, color and duplex Doppler images were obtained of the deep venous systems. Comparison: No prior examinations are available for comparison Findings: There are no areas of narrowing or occlusion within the deep veins of the lower extremities on the color Doppler examination. There is complete filling in of all examined segments. The common femoral veins, deep femoral veins, femoral veins through the thigh, and popliteal veins are widely patent bilaterally. There is complete compressibility of the visualized portions of the deep veins bilaterally. There is also normal variability and response to augmentation. There is no evidence of mass or loculated fluid collection. Procedure Note Interface, Radiant Results - 03/19/2017 6:45 AM FOOD SERVICE LEAD Bilateral lower extremity venous Doppler History: Immobility, increased risk for DVT Technique: Multiple 2-D real-time grayscale sonographic images were obtained throughout the lower extremities. In addition, color and duplex Doppler images were obtained of the deep venous systems. Comparison: No prior examinations are available for comparison Findings: There are no areas of narrowing or occlusion within the deep veins of the lower extremities on the color Doppler examination. There is complete filling in of all examined segments. The common femoral veins, deep femoral veins, femoral veins through the thigh, and popliteal veins are widely patent bilaterally. There is complete compressibility of the visualized portions of the deep veins bilaterally. There is also normal variability and response to augmentation. There is no evidence of mass or loculated fluid collection. IMPRESSION No evidence of acute or occlusive femoral popliteal deep venous thrombosis in either leg. Finalized by Ronnie Nice M.D. on 03/19/2017 6:42 AM. Dictated by Ronnie Nice M.D. on 03/19/2017 6:41 AM. * CT CHEST W CONTRAST (03/17/2017 8:33 AM) Specimen Performing Laboratory [facility] RES[facility] Impressions 1. Small left pleural effusion with adjacent compressive and rounded atelectasis. 2. Mild cardiomegaly with enlargement of the main pulmonary artery consistent with pulmonary hypertension. 3. Moderate calcific coronary artery disease. 4. Diffuse groundglass opacities throughout both lungs, likely due to limited depth of inspiration. Subtle pulmonary edema or small airway disease could appear similar. 5. Mild hepatosplenomegaly. Approved by Main Connell M.D. on 03/17/2017 11:53 AM By my electronic signature, I attest that I have personally reviewed the images for this examination and formulated the interpretations and opinions expressed in this report Finalized by Juan Carlos Lozano M.D. on 03/17/2017 12:27 PM. Dictated by Main Connell M.D. on 03/17/2017 11:[address] Chest Clinical Indication:Male, 51 years old. Pleural effusion, thickened pleura. Technique: Multiple contiguous axial images were obtained through the chest following administration of Isovue-370 IV contrast material. Post processing coronal and sagittal reconstruction images were made from the axial images. Comparison: None Chest Findings: Lower neck: Unremarkable. Axilla, Mediastinum and Arin: Enteric tube noted. No thoracic lymphadenopathy. Mildly prominent, nonenlarged mediastinal lymph nodes are likely reactive. Heart and Great Vessels: Mild cardiomegaly without pericardial effusion. Enlargement of the main pulmonary artery consistent with pulmonary hypertension. Moderate calcific coronary artery disease. Mild atherosclerotic calcification of the normal caliber thoracic aorta. Airway, Lungs and Pleura: The central airways are patent. Diffuse groundglass opacities throughout both lungs. Small left pleural effusion with adjacent atelectasis. There is rounded atelectasis in the mid lateral left lung and inferior medial right lower lobe. Mild dependent atelectasis in the right lung base. No significant pleural thickening. Chest Wall and Osseous Structures: Mild thoracic spondylosis. Mild bilateral gynecomastia. No destructive osseous lesions. Upper abdomen: Mild hepatosplenomegaly. Nonspecific thickening of the adrenal glands bilaterally. Procedure Note Interface, Radiant Results - 03/17/2017 12:30 PM [employer] LEAD CT Chest Clinical Indication: Male, 51 years old. Pleural effusion, thickened pleura. Technique: Multiple contiguous axial images were obtained through the chest following administration of Isovue-370 IV contrast material. Post processing coronal and sagittal reconstruction images were made from the axial images. Comparison: None Chest Findings: Lower neck: Unremarkable. Axilla, Mediastinum and Arin: Enteric tube noted. No thoracic lymphadenopathy. Mildly prominent, nonenlarged mediastinal lymph nodes are likely reactive. Heart and Great Vessels: Mild cardiomegaly without pericardial effusion. Enlargement of the main pulmonary artery consistent with pulmonary hypertension. Moderate calcific coronary artery disease. Mild atherosclerotic calcification of the normal caliber thoracic aorta. Airway, Lungs and Pleura: The central airways are patent. Diffuse groundglass opacities throughout both lungs. Small left pleural effusion with adjacent atelectasis. There is rounded atelectasis in the mid lateral left lung and inferior medial right lower lobe. Mild dependent atelectasis in the right lung base. No significant pleural thickening. Chest Wall and Osseous Structures: Mild thoracic spondylosis. Mild bilateral gynecomastia. No destructive osseous lesions. Upper abdomen: Mild hepatosplenomegaly. Nonspecific thickening of the adrenal glands bilaterally. IMPRESSION 1. Small left pleural effusion with adjacent compressive and rounded atelectasis. 2. Mild cardiomegaly with enlargement of the main pulmonary artery consistent with pulmonary hypertension. 3. Moderate calcific coronary artery disease. 4. Diffuse groundglass opacities throughout both lungs, likely due to limited depth of inspiration. Subtle pulmonary edema or small airway disease could appear similar. 5. Mild hepatosplenomegaly. Approved by Main Connell M.D. on 03/17/2017 11:53 AM By my electronic signature, I attest that I have personally reviewed the images for this examination and formulated the interpretations and opinions expressed in this report Finalized by Juan Carlos Lozano M.D. on 03/17/2017 12:27 PM. Dictated by Main Connell M.D. on 03/17/2017 11:21 AM. * POC BLOOD GAS ARTERIAL (03/17/2017 5:29 AM) Only the most recent of 6 results within the time period is included. Component Value Ref Range PH-ART-POC 7.35 7.35 - 7.45 LRH7-DBI-PCH 40 35 - 45 MMHG PO2-ART-POC 90 80 - 100 MMHG Base Def-ART-POC 4.0 MMOL/L O2 Sat-ART-POC 97.0 95 - 99 % Jzomhxqjgum-JEA-TPU 22.0 21 - 28 MMOL/L Specimen Performing Laboratory [facility] [address] [place], [place] [id number] * POC SODIUM (03/17/2017 5:29 AM) Only the most recent of 6 results within the time period is included. Component Value Ref Range Sodium-POC 135 (L) 137 - 147 MMOL/L Specimen Performing Laboratory [facility] [address] [place], [place] [id number] * POC POTASSIUM (03/17/2017 5:29 AM) Only the most recent of 6 results within the time period is included. Component Value Ref Range Potassium-POC 3.8 3.5 - 5.1 MMOL/L Specimen Performing Laboratory [facility] [address] [place], [place] [id number] * POC IONIZED CALCIUM (03/17/2017 5:29 AM) Only the most recent of 6 results within the time period is included. Component Value Ref Range Ionized Calcium-POC 1.12 1.0 - 1.3 MMOL/L Specimen Performing Laboratory [facility] [address] [place], [place] [id number] * POC HEMATOCRIT (03/17/2017 5:29 AM) Only the most recent of 6 results within the time period is included. Component Value Ref Range Hemoglobin POC 9.2 (L) 13.5 - 16.5 GM/DL Hematocrit POC 27.0 (L) 40 - 50 % Specimen Performing Laboratory [facility] [address] [place], [place] [id number] * LIPASE (03/17/2017 4:13 AM) Only the most recent of 2 results within the time period is included. Component Value Ref Range Lipase 45 11 - 82 U/L Specimen Performing Laboratory [facility] [address] [place], [place] [id number] * AMYLASE (03/17/2017 4:13 AM) Only the most recent of 2 results within the time period is included. Component Value Ref Range Amylase 86 24 - 100 U/L Specimen Performing Laboratory [facility] [address] [place] [address] * CHEST SINGLE VIEW (03/16/2017 10:10 PM) Only the most recent of 8 results within the time period is included. Specimen Performing Laboratory [facility] RESULTS Impressions Persistent findings of fluid overload and/or CHF with left pleural effusion. Approved by Kenneth Irizarry M.D. on 03/17/2017 9:17 AM By my electronic signature, I attest that I have personally reviewed the images for this examination and formulated the interpretations and opinions expressed in this report Finalized by Lanre Lawler M.D. on 03/17/2017 11:46 AM. Dictated by Kenneth Irizarry M.D. on 03/17/2017 8:31 AM. Narrative CHEST SINGLE VIEW Clinical Indication: Male, 51 years old. Attempted thoracentesis, pleural thickening, concern for pneumothorax Comparison: Chest earlier same day Findings: Enteric tube extending over the diaphragm and out of the field of view. Cardiac silhouette is mildly enlarged. Mild pulmonary venous congestion and interstitial edema. Unchanged left pleural effusion with adjacent atelectasis. No pneumothorax. Procedure Note Interface, Radiant Results - 03/17/2017 11:49 AM [employer]AD CHEST SINGLE VIEW Clinical Indication: Male, 51 years old. Attempted thoracentesis, pleural thickening, concern for pneumothorax Comparison: Chest earlier same day Findings: Enteric tube extending over the diaphragm and out of the field of view. Cardiac silhouette is mildly enlarged. Mild pulmonary venous congestion and interstitial edema. Unchanged left pleural effusion with adjacent atelectasis. No pneumothorax. IMPRESSION Persistent findings of fluid overload and/or CHF with left pleural effusion. Approved by Kenneth Irizarry M.D. on 03/17/2017 9:17 AM By my electronic signature, I attest that I have personally reviewed the images for this examination and formulated the interpretations and opinions expressed in this report Finalized by Lanre Lawler M.D. on 03/17/2017 11:46 AM. Dictated by Kenneth Irizarry M.D. on 03/17/2017 8:31 AM. * BETA HYDROXYBUTYRATE (KETONES) (03/16/2017 11:20 AM) Component Value Ref Range Beta Hydroxybutyrate 0.1 <0.3 MMOL/L Comment: Beta hydroxybutyrate (BOHB) is the most abundant ketone (78%), followed by acetoacetate (20%) and acetone (2%). Measurement BOHB is recommended to assess ketones in DKA. Expected BOHB Results for DKA: Initial presentation high/increasing During treatment decreasing Resolved decreasing/normal Specimen Performing Laboratory [facility] [address] [place], [place] [id number] * LACTIC ACID(LACTATE) (03/16/2017 11:20 AM) Component Value Ref Range Lactic Acid 0.8 0.5 - 2.0 MMOL/L Specimen Performing Laboratory [facility] [address] [place] [address] * PLEURAL FLUID TRIGLYCERIDES (03/14/2017 4:30 PM) Component Value Ref Range Pleural Fluid 20 mg/dL Triglycerides Comment: Triglycerides >110 mg/dL is suggestive of a chylothorax. Triglycerides <50 mg/dL is suggestive of pseudochylothorax. Specimen Performing Laboratory [facility] [address] [place] [address] * PLEURAL FLUID TOTAL PROTEIN (03/14/2017 4:30 PM) Component Value Ref Range Pleural Fluid Total 3.8 (H)Comment: Serum to pleural fluid protein <1.1 g/ dL Protein gradient >3.1 g/dL is suggestive of an exudate Specimen Performing Laboratory [facility] [address] [place] [address] * PLEURAL FLUID PH (03/14/2017 4:30 PM) Component Value Ref Range Pleural Fluid Ph 7.70 (H) 7.60 - 7.66 Specimen Performing Laboratory [facility] [address] [place] [address] * PLEURAL FLUID LACTATE DEHYDROGENASE (03/14/2017 4:30 PM) Component Value Ref Range Pleural Fluid Lactate 255 (H)Comment: Higher levels suggestive of 67 - 140 U/L Dehydrogenase exudate Specimen Performing Laboratory [facility] [address] [place], [place] [id number] * PLEURAL FLUID GLUCOSE (03/14/2017 4:30 PM) Component Value Ref Range Pleural Fluid Glucose 160 (H) 70 - 100 mg/dL Comment: Glucose <60 mg/dL associated with parapneumonic effusion, tuberculosis, malignancy, empyema, and rheumatoid disease Specimen Performing Laboratory [facility] [address] [place] [id number] * PLEURAL FLUID TOTAL BILIRUBIN (03/14/2017 4:30 PM) Component Value Ref Range Pleural Fluid Total 2.4 mg/dL Bilirubin Comment: Pleural fluid to serum bilirubin ratio of 0.6 suggests the presence of an exudate Specimen Performing Laboratory [facility] [address] [place] [address] * PLEURAL FLUID ALBUMIN (03/14/2017 4:30 PM) Component Value Ref Range Pleural Fluid Albumin 2.3Comment: Pleural fluid albumin gradient >1.2 g/ dL g/dL is suggestive of an exudate Specimen Performing Laboratory [facility] [address] [place] [address] * FLUID HEMATOCRIT (03/14/2017 4:30 PM) Component Value Ref Range Fluid Hematocrit 0.7 % Specimen Performing Laboratory [facility] [address] [place] [address] * GRAM STAIN (03/14/2017 4:30 PM) Component Value Ref Range Battery Name GRAM STAIN Specimen Description PLEURAL FLUID L pleural space Special Requests NONE Gram Stain RARE NEUTROPHILS MANY RBC'S NO ORGANISMS SEEN Report Status FINAL 03/15/2017 Specimen Performing Laboratory [facility] [address] [place] [address] * CULTURE-WOUND/TISSUE/FLUID(AEROBIC ONLY)W/SENSITIVITY (03/14/2017 4:30 PM) Component Value Ref Range Battery Name ROUTINE CULTURE Specimen Description PLEURAL FLUID L pleural space Special Requests NONE Direct Gram Stain RARE NEUTROPHILS MANY RBC'S NO ORGANISMS SEEN Culture NO GROWTH 5 DAYS Report Status FINAL 03/19/2017 Specimen Performing Laboratory [facility] [address] [place] [address] * CELL COUNT W/DIFF-FLUIDS (03/14/2017 4:30 PM) Component Value Ref Range White Blood Cells,Fluid 160 /UL Red Blood Cells,Fluid 95328 /UL Segmented Neutrophils, 30 % Fluid Lymphocytes,Fluid 10 % Monocyte/Histo,Fluid 56 % Eosinophils, Fluid 3 % Other,Fluid 1 % Fluid Source PLEURAL FLUID Pathology HEMORRHAGIC FLUID Interpretation,Fluid Pathologist Signature INTERPRETED BY SETH XIAO M.D. By the PATH SIGNATURE ABOVE, I attest that I have personally formulated the final interpretation expressed in this report and that the above diagnosis is based upon my examination of the slides and/or other material indicated in this report. Specimen Performing Laboratory Fluid - Pleural Fluid [facility] [address] [place] [address] * NON-COMBINATION WELDER CYTOLOGY (BODY FLUIDS/TISSUE) (03/14/2017 8:49 AM) Component Value Ref Range Cytology [facility] [email or web address] Department of Pathology and Laboratory Medicine [address] [place] [address] Surgical Pathology Office: [phone] CYTOLOGY REPORT NAME: NAREN MAYFIELD CYTOLOGY #: [id number] MR #: [id number] ALT ID #: [id number] #: [id number] LOCATION: [place] DATE OF PROCEDURE: 03/14/2017 AGE: 51 SEX: M DATE RECEIVED: 03/15/2017 : 1965 TIME RECEIVED: 08:49 PHYSICIAN: EDGAR BEE DATE OF REPORT: 03/21/2017 COPY TO: EDGAR BEE DATE OF PRINTIN03/21/2017 Material Received: A: Pleural Fluid-Left History: 51 year old male with clinical history of left pleural effusion Gross Description: (1thin prep, 1dq direct smear, 1cell block) 1000ml cloudy, dark red fluid. ################################################## ###################### Final Diagnosis: A. Pleural Fluid-Left: Negative for malignant cells. See comment. Comment: Immunohistochemical stains BerEP4, MOC-31, and WT-1 performed on the cell block support the above diagnosis. Attestation: By this signature, I attest that I have personally formulated the final interpretation expressed in this report and that the above diagnosis is based upon my examination of the slides and/or other material indicated in this report. +++Electronically Signed Out By+++ ke/03/18/2017 Interpreted by: Carmela Sánchez MD, PhD Todd Berumen MD Resident Cytology Specimen Performing Laboratory [facility] RES[facility] * CHEM 7 ADD ON (03/14/2017 3:15 AM) Component Value Ref Range Total Protein 7.2 6.0 - 8.0 G/DL Total Bilirubin 0.5 0.3 - 1.2 MG/DL Albumin 3.6 3.5 - 5.0 G/DL Alk Phosphatase 71 25 - 110 U/L AST (SGOT) 21 7 - 40 U/L ALT (SGPT) 3 (L) 7 - 56 U/L Specimen Performing Laboratory [facility] [address] [place] [address] * FIBRINOGEN (03/14/2017 3:15 AM) Component Value Ref Range Fibrinogen 693 (H) 200 - 400 MG/DL Specimen Performing Laboratory [facility] [address] [place] [address] * OSMOLALITY (03/14/2017 3:15 AM) Component Value Ref Range Osmolality 312 (H) 280 - 307 MOSMOL/KG Specimen Performing Laboratory [facility] [address] [place] [address] * LDH-LACTATE DEHYDROGENASE (03/14/2017 3:15 AM) Component Value Ref Range Lactate Dehydrogenase 225 (H) 100 - 210 U/L Specimen Performing Laboratory [facility] [address] [place] [address] * LIPID PROFILE (03/14/2017 3:15 AM) Component Value Ref Range Cholesterol 102 <200 MG/DL Triglycerides 163 (H) <150 MG/DL HDL 20 (L) >40 MG/DL LDL 53 <100 MG/DL VLDL 33 MG/DL Non HDL Cholesterol 82 MG/DL Comment: Calculated non-HDL Cholesterol (non-HDL-C) indirectly measures LDL-C, Lp(a), IDL-C, and VLDL-C. It is a surrogate marker for Apoprotein B. Goal should be less than 130 mg/dL. Specimen Performing Laboratory [facility] [address] [place] [address] * TEG WITH KAOLIN (03/13/2017 4:25 PM) Component Value Ref Range MA Kaolin 77.7 (H) 50.0 - 70.0 MM R Kaolin 6.1 3.0 - 9.0 MIN RK Kaolin 7.0 4.0 - 12.0 MIN K Kaolin 0.9 (L) 1.0 - 3.0 MIN Angle Kaolin 76.0 (H) 55 - 75 DEG Lysis30 0.0 0.0 - 8.0 % Specimen Performing Laboratory [facility] * CBC (03/13/2017 4:25 PM) Only the most recent of 2 results within the time period is included. Component Value Ref Range White Blood Cells 15.3 (H) 4.5 - 11.0 K/UL RBC 2.70 (L) 4.4 - 5.5 M/UL Hemoglobin 8.3 (L) 13.5 - 16.5 GM/DL Hematocrit 24.8 (L) 40 - 50 % MCV 92.0 80 - 100 FL MCH 30.9 26 - 34 PG MCHC 33.6 32.0 - 36.0 G/DL RDW 16.3 (H) 11 - 15 % Platelet Count 286 150 - 400 K/UL MPV 8.4 7 - 11 FL Specimen Performing Laboratory [facility] [address] [place] [address] * CT ABD/PELV WO CONTRAST (03/13/2017 12:27 PM) Specimen Performing Laboratory [facility] RESULTS Impressions 1. Large left layering high density pleural fluid collection collection demonstrating a hematocrit level with marked atelectasis of the visualized left lung. This finding is concerning for hemothorax. 2. Moderate hepatomegaly. 3. Bilateral thickened adrenal glands which may indicate hyperplasia or hemorrhage and are not completely evaluated on this exam. Attention on follow- up recommended. I spoke with Dr. Menendez about the above findings at 3:27pm via telephone on 03/13/17. Approved by Dc Mendez M.D. on 03/13/2017 3:28 PM By my electronic signature, I attest that I have personally reviewed the images for this examination and formulated the interpretations and opinions expressed in this report Finalized by Neal Gates M.D. on 03/13/2017 4:36 PM. Dictated by Dc Mendez M.D. on 03/13/2017 1:[address] ABDOMEN AND PELVIS Clinical Indication:Male, 51 years old. Sheaths were removed from the groin. Low hemoglobin. Technique: Multiple contiguous axial CT images were obtained through the abdomen and pelvis without IV contrast. Post processing coronal and sagittal reconstruction images were made from the axial images. IV contrast: None. Bowel contrast:None Comparison: Abdomen AP March 12, 2017. FINDINGS: Limited evaluation without the use of IV contrast which includes the viscera and vasculature. Lower Thorax: Mild cardiomegaly. Calcific coronary artery disease is present. Mild right basilar atelectasis. Large left high density pleural fluid collection that demonstrates layering densities with marked atelectasis of the visualized left lung. Liver and Biliary system: Moderate hepatomegaly. No discrete hepatic lesion. No biliary ductal dilatation. The gallbladder is normal in size without radiopaque gallstone. Spleen: Unremarkable. Adrenal Glands and Kidneys: Bilateral adrenal gland thickening and nodularity with the left being greater than the right. Bilateral renal sinus lipomatosis. There is paranephric stranding bilaterally. No nephrolithiasis or hydronephrosis. Pancreas and Retroperitoneum: Unremarkable. Aorta and Major Vessels: Moderate aortoiliac calcified atherosclerotic plaque. The abdominal aorta is normal in caliber. No retroperitoneal hematoma. Bowel, Mesentery and Peritoneal space: There is residual contrast material within the colon. Nasogastric tube terminates in the gastric antrum. Small large bowel loops are normal in caliber. No mesenteric adenopathy or ascites. No pneumoperitoneum. Pelvis: A Cunningham catheter is in place within a decompressed urinary bladder. The prostate is unremarkable. No pelvic lymphadenopathy. Abdominal wall and Osseous Structures: Small bilateral fat-containing inguinal hernias. Right anterior abdominal staple line and underlying calvarial flap are noted. Mild thoracolumbar spondylosis. No groin hematoma is noted. Procedure Note Interface, Radiant Results - 03/13/2017 4:39 PM FO[employer] SERVICE LEAD CT ABDOMEN AND PELVIS Clinical Indication: Male, 51 years old. Sheaths were removed from the groin. Low hemoglobin. Technique: Multiple contiguous axial CT images were obtained through the abdomen and pelvis without IV contrast. Post processing coronal and sagittal reconstruction images were made from the axial images. IV contrast: None. Bowel contrast: None Comparison: Abdomen AP March 12, 2017. FINDINGS: Limited evaluation without the use of IV contrast which includes the viscera and vasculature. Lower Thorax: Mild cardiomegaly. Calcific coronary artery disease is present. Mild right basilar atelectasis. Large left high density pleural fluid collection that demonstrates layering densities with marked atelectasis of the visualized left lung. Liver and Biliary system: Moderate hepatomegaly. No discrete hepatic lesion. No biliary ductal dilatation. The gallbladder is normal in size without radiopaque gallstone. Spleen: Unremarkable. Adrenal Glands and Kidneys: Bilateral adrenal gland thickening and nodularity with the left being greater than the right. Bilateral renal sinus lipomatosis. There is paranephric stranding bilaterally. No nephrolithiasis or hydronephrosis. Pancreas and Retroperitoneum: Unremarkable. Aorta and Major Vessels: Moderate aortoiliac calcified atherosclerotic plaque. The abdominal aorta is normal in caliber. No retroperitoneal hematoma. Bowel, Mesentery and Peritoneal space: There is residual contrast material within the colon. Nasogastric tube terminates in the gastric antrum. Small large bowel loops are normal in caliber. No mesenteric adenopathy or ascites. No pneumoperitoneum. Pelvis: A Cunningham catheter is in place within a decompressed urinary bladder. The prostate is unremarkable. No pelvic lymphadenopathy. Abdominal wall and Osseous Structures: Small bilateral fat-containing inguinal hernias. Right anterior abdominal staple line and underlying calvarial flap are noted. Mild thoracolumbar spondylosis. No groin hematoma is noted. IMPRESSION 1. Large left layering high density pleural fluid collection collection demonstrating a hematocrit level with marked atelectasis of the visualized left lung. This finding is concerning for hemothorax. 2. Moderate hepatomegaly. 3. Bilateral thickened adrenal glands which may indicate hyperplasia or hemorrhage and are not completely evaluated on this exam. Attention on follow- up recommended. I spoke with Dr. Menendez about the above findings at 3:27pm via telephone on 03/13/17. Approved by Dc Mendez M.D. on 03/13/2017 3:28 PM By my electronic signature, I attest that I have personally reviewed the images for this examination and formulated the interpretations and opinions expressed in this report Finalized by Neal Gates M.D. on 03/13/2017 4:36 PM. Dictated by Dc Mendez M.D. on 03/13/2017 1:02 PM. * TYPE & CROSSMATCH (03/13/2017 10:49 AM) Only the most recent of 2 results within the time period is included. Component Value Ref Range Units Ordered 1 Crossmatch Expires 03/16/2017 Record Check FOUND ABO/RH(D) A POS Antibody Screen NEG Electronic Crossmatch YES Unit Number [id number] Blood Component Type RBC,ADSOL,LEUKO REDUCED Unit Division 0 Status OF Unit TRANSFUSED Transfusion Status OK TO TRANSFUSE Crossmatch Result COMPATIBLE,ELECTRONIC Specimen Performing Laboratory [facility] [address] [place] [address] * C DIFFICILE BY PCR (03/13/2017 10:30 AM) Component Value Ref Range Battery Name C DIFFICILE PCR Specimen Description FECES Special Requests NONE C. Difficile Toxin B PCR NEGATIVE-wait 7 days to repeat test Report Status FINAL 03/14/2017 Specimen Performing Laboratory Feces [facility] [address] [place] [address] * CT BRAIN PERF (03/13/2017 9:04 AM) Only the most recent of 2 results within the time period is included. Specimen Performing Laboratory [facility] RESULTS Impressions CTA head: 1. Mild increased smooth narrowing of the intracranial arterial vasculature, most notably within the A1 segments, consistent with mild vasospasm. No high- grade intracranial arterial stenosis is identified. 2. 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 3. Increased conspicuity of moderate sized infarct/cytotoxic edema within the anterior right temporal lobe. 4. Persistent mild transcranial herniation at the right pterional craniectomy site with improving intracranial mass effect. 5. Improving localized subarachnoid hemorrhage within the right sylvian fissure. 6. Bony thinning and probable dehiscence of the right jugular bulb sigmoid plate. CT perfusion: 1. Scattered small and moderate sized mismatch perfusion defects within the bilateral cerebral and cerebellar hemispheres, likely related to aforementioned vasospasm. 2. Moderate-sized matched perfusion defect within the anterior right temporal lobe, consistent with completed infarct. This is underestimated on the quantitative RAPID software. Discussed with Dr. Hernandez at 9:40 AM 03/13/2017 Finalized by Juan Carlos Lozano M.D. on 03/13/2017 9:41 AM. Dictated by Juan Carlos Lozano M.D. on 03/13/2017 9:14 AM. Narrative EXAM: CTA HEAD AND CT PERFUSION HISTORY: , Evaluation for vasospasm, aneurysm clipping. TECHNIQUE: Multiple contiguous axial images were obtained of the brain following the administration of IV contrast. CTA maximum density projection images were obtained of the brain with image post processing.Perfusion imaging was also obtained with CBV, MTT, TTD, and CBF mapping. COMPARISON: CT head March 11, 2017 and CTA head March 10, 2017 FINDINGS: Dr. Juan Carlos Lozano M.D. has personally reviewed these images and formulated the interpretations and opinions expressed in this report. CTA head: Prior right pterional craniectomy is again noted with slight increased transcranial herniation at the craniectomy site. There is increased conspicuity of a moderate-sized area of cytotoxic edema within the anterior right temporal lobe. 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 Improving intracranial mass effect with improving sulcal and partial cisternal effacement. Ventricles are less compressed, though, remain nondistended. Basal cisterns are patent. No new intracranial hemorrhage is identified. Mild increased is smooth narrowing of the intracranial arterial vasculature, most notably within the A1 segments (which is moderate degree). No high-grade intracranial arterial stenosis is identified. The distal internal carotid, basilar, and vertebral arteries, and anterior, middle, and posterior cerebral arteries remain patent. No residual or recurrent aneurysm at the clipping site. Bony thinning and probable dehiscence at the right jugular bulb/sigmoid plate. CT Perfusion: Moderate-sized matched perfusion defect (on qualitative perfusion maps) within the anterior right temporal lobe corresponding with aforementioned area of cytotoxic edema and completed infarct. This is underestimated on the quantitative RAPID software. Scattered small and moderate sized mismatch perfusion defects are noted within the bilateral cerebral and cerebellar hemispheres on both qualitative and quantitative perfusion maps. Procedure Note Interface, Radiant Results - 03/13/2017 9:44 AM FOOD SERVICE LEAD EXAM: CTA HEAD AND CT PERFUSION HISTORY: , Evaluation for vasospasm, aneurysm clipping. TECHNIQUE: Multiple contiguous axial images were obtained of the brain following the administration of IV contrast. CTA maximum density projection images were obtained of the brain with image post processing. Perfusion imaging was also obtained with CBV, MTT, TTD, and CBF mapping. COMPARISON: CT head March 11, 2017 and CTA head March 10, 2017 FINDINGS: Dr. Juna Carlos Lozano M.D. has personally reviewed these images and formulated the interpretations and opinions expressed in this report. CTA head: Prior right pterional craniectomy is again noted with slight increased transcranial herniation at the craniectomy site. There is increased conspicuity of a moderate-sized area of cytotoxic edema within the anterior right temporal lobe. 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 Improving intracranial mass effect with improving sulcal and partial cisternal effacement. Ventricles are less compressed, though, remain nondistended. Basal cisterns are patent. No new intracranial hemorrhage is identified. Mild increased is smooth narrowing of the intracranial arterial vasculature, most notably within the A1 segments (which is moderate degree). No high-grade intracranial arterial stenosis is identified. The distal internal carotid, basilar, and vertebral arteries, and anterior, middle, and posterior cerebral arteries remain patent. No residual or recurrent aneurysm at the clipping site. Bony thinning and probable dehiscence at the right jugular bulb/sigmoid plate. CT Perfusion: Moderate-sized matched perfusion defect (on qualitative perfusion maps) within the anterior right temporal lobe corresponding with aforementioned area of cytotoxic edema and completed infarct. This is underestimated on the quantitative RAPID software. Scattered small and moderate sized mismatch perfusion defects are noted within the bilateral cerebral and cerebellar hemispheres on both qualitative and quantitative perfusion maps. IMPRESSION CTA head: 1. Mild increased smooth narrowing of the intracranial arterial vasculature, most notably within the A1 segments, consistent with mild vasospasm. No high- grade intracranial arterial stenosis is identified. 2. 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 3. Increased conspicuity of moderate sized infarct/cytotoxic edema within the anterior right temporal lobe. 4. Persistent mild transcranial herniation at the right pterional craniectomy site with improving intracranial mass effect. 5. Improving localized subarachnoid hemorrhage within the right sylvian fissure. 6. Bony thinning and probable dehiscence of the right jugular bulb sigmoid plate. CT perfusion: 1. Scattered small and moderate sized mismatch perfusion defects within the bilateral cerebral and cerebellar hemispheres, likely related to aforementioned vasospasm. 2. Moderate-sized matched perfusion defect within the anterior right temporal lobe, consistent with completed infarct. This is underestimated on the quantitative RAPID software. Discussed with Dr. Hernandez at 9:40 AM 03/13/2017 Finalized by Juan Carlos Lozano M.D. on 03/13/2017 9:41 AM. Dictated by Jaun Carlos Lozano M.D. on 03/13/2017 9:14 AM. * CTA HEAD WO/W CONTR+POST PRO (03/13/2017 9:04 AM) Only the most recent of 3 results within the time period is included. Specimen Performing Laboratory [facility] RESULTS Impressions CTA head: 1. Mild increased smooth narrowing of the intracranial arterial vasculature, most notably within the A1 segments, consistent with mild vasospasm. No high- grade intracranial arterial stenosis is identified. 2. 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 3. Increased conspicuity of moderate sized infarct/cytotoxic edema within the anterior right temporal lobe. 4. Persistent mild transcranial herniation at the right pterional craniectomy site with improving intracranial mass effect. 5. Improving localized subarachnoid hemorrhage within the right sylvian fissure. 6. Bony thinning and probable dehiscence of the right jugular bulb sigmoid plate. CT perfusion: 1. Scattered small and moderate sized mismatch perfusion defects within the bilateral cerebral and cerebellar hemispheres, likely related to aforementioned vasospasm. 2. Moderate-sized matched perfusion defect within the anterior right temporal lobe, consistent with completed infarct. This is underestimated on the quantitative RAPID software. Discussed with Dr. Hernandez at 9:40 AM 03/13/2017 Finalized by Juan Carlos Lozano M.D. on 03/13/2017 9:41 AM. Dictated by Juan Carlos Lozano M.D. on 03/13/2017 9:14 AM. Narrative EXAM: CTA HEAD AND CT PERFUSION HISTORY: , Evaluation for vasospasm, aneurysm clipping. TECHNIQUE: Multiple contiguous axial images were obtained of the brain following the administration of IV contrast. CTA maximum density projection images were obtained of the brain with image post processing.Perfusion imaging was also obtained with CBV, MTT, TTD, and CBF mapping. COMPARISON: CT head March 11, 2017 and CTA head March 10, 2017 FINDINGS: Dr. Juan Carlos Lozano M.D. has personally reviewed these images and formulated the interpretations and opinions expressed in this report. CTA head: Prior right pterional craniectomy is again noted with slight increased transcranial herniation at the craniectomy site. There is increased conspicuity of a moderate-sized area of cytotoxic edema within the anterior right temporal lobe. 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 Improving intracranial mass effect with improving sulcal and partial cisternal effacement. Ventricles are less compressed, though, remain nondistended. Basal cisterns are patent. No new intracranial hemorrhage is identified. Mild increased is smooth narrowing of the intracranial arterial vasculature, most notably within the A1 segments (which is moderate degree). No high-grade intracranial arterial stenosis is identified. The distal internal carotid, basilar, and vertebral arteries, and anterior, middle, and posterior cerebral arteries remain patent. No residual or recurrent aneurysm at the clipping site. Bony thinning and probable dehiscence at the right jugular bulb/sigmoid plate. CT Perfusion: Moderate-sized matched perfusion defect (on qualitative perfusion maps) within the anterior right temporal lobe corresponding with aforementioned area of cytotoxic edema and completed infarct. This is underestimated on the quantitative RAPID software. Scattered small and moderate sized mismatch perfusion defects are noted within the bilateral cerebral and cerebellar hemispheres on both qualitative and quantitative perfusion maps. Procedure Note Interface, Radiant Results - 03/13/2017 9:44 AM FOOD SERVICE LEAD EXAM: CTA HEAD AND CT PERFUSION HISTORY: , Evaluation for vasospasm, aneurysm clipping. TECHNIQUE: Multiple contiguous axial images were obtained of the brain following the administration of IV contrast. CTA maximum density projection images were obtained of the brain with image post processing. Perfusion imaging was also obtained with CBV, MTT, TTD, and CBF mapping. COMPARISON: CT head March 11, 2017 and CTA head March 10, 2017 FINDINGS: Dr. Juan Carlos Lozano M.D. has personally reviewed these images and formulated the interpretations and opinions expressed in this report. CTA head: Prior right pterional craniectomy is again noted with slight increased transcranial herniation at the craniectomy site. There is increased conspicuity of a moderate-sized area of cytotoxic edema within the anterior right temporal lobe. 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 Improving intracranial mass effect with improving sulcal and partial cisternal effacement. Ventricles are less compressed, though, remain nondistended. Basal cisterns are patent. No new intracranial hemorrhage is identified. Mild increased is smooth narrowing of the intracranial arterial vasculature, most notably within the A1 segments (which is moderate degree). No high-grade intracranial arterial stenosis is identified. The distal internal carotid, basilar, and vertebral arteries, and anterior, middle, and posterior cerebral arteries remain patent. No residual or recurrent aneurysm at the clipping site. Bony thinning and probable dehiscence at the right jugular bulb/sigmoid plate. CT Perfusion: Moderate-sized matched perfusion defect (on qualitative perfusion maps) within the anterior right temporal lobe corresponding with aforementioned area of cytotoxic edema and completed infarct. This is underestimated on the quantitative RAPID software. Scattered small and moderate sized mismatch perfusion defects are noted within the bilateral cerebral and cerebellar hemispheres on both qualitative and quantitative perfusion maps. IMPRESSION CTA head: 1. Mild increased smooth narrowing of the intracranial arterial vasculature, most notably within the A1 segments, consistent with mild vasospasm. No high- grade intracranial arterial stenosis is identified. 2. 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 3. Increased conspicuity of moderate sized infarct/cytotoxic edema within the anterior right temporal lobe. 4. Persistent mild transcranial herniation at the right pterional craniectomy site with improving intracranial mass effect. 5. Improving localized subarachnoid hemorrhage within the right sylvian fissure. 6. Bony thinning and probable dehiscence of the right jugular bulb sigmoid plate. CT perfusion: 1. Scattered small and moderate sized mismatch perfusion defects within the bilateral cerebral and cerebellar hemispheres, likely related to aforementioned vasospasm. 2. Moderate-sized matched perfusion defect within the anterior right temporal lobe, consistent with completed infarct. This is underestimated on the quantitative RAPID software. Discussed with Dr. Hernandez at 9:40 AM 03/13/2017 Finalized by Juan Carlos Lozano M.D. on 03/13/2017 9:41 AM. Dictated by Juan Carlos Lozano M.D. on 03/13/2017 9:14 AM. * TRANSFUSE RBC'S NON-BLEEDING PT (03/12/2017 1:48 PM) Only the most recent of 2 results within the time period is included. Specimen Performing Laboratory Blood * ECG-SCAN (03/12/2017 10:05 AM) Narrative Ordered by an unspecified provider. * ECG-SCAN (03/12/2017 10:05 AM) Narrative Ordered by an unspecified provider. * ECG-SCAN (03/12/2017 10:05 AM) Narrative Ordered by an unspecified provider. * ECG-SCAN (03/12/2017 10:05 AM) Narrative Ordered by an unspecified provider. * HEMOGLOBIN A1C (03/12/2017 3:44 AM) Component Value Ref Range Hemoglobin A1C 5.2 4.0 - 6.0 % Comment: The ADA recommends that most patients with type 1 and type 2 diabetes maintain an A1c level <7%. Specimen Performing Laboratory [facility] [address] [place] [address] * 2-D + DOPPLER ECHOCARDIOGRAM (03/11/2017 3:28 PM) Component Value Ref Range BSA 2.35 m2 CV ECHO PV NEON INSTALLER TENZIN Anand LVIDD 5.9 4.2 - 5.9 cm IVS 1.2 0.6 - 1.0 cm PW 1.3 0.6 - 1.0 cm LVIDS 4.2 cm LA volume 98.0 18 - 58 mL Sinus 3.5 2.1 - 3.5 cm LA size 5.1 3.0 - 4.0 cm AV peak velocity 2.1 m/s TDI e' 0.090 m/s TV rest pulmonary artery 38 mmHg pressure Right Ventricular Basal 4.7 2.5 - 4.1 cm Diameter Right Ventricular Mid 2.5 1.9 - 3.5 cm Diameter Right Ventricular Long 8.8 5.9 - 8.3 cm Diameter Right Atrial Area 25.0 <=18 cm2 Right Atrial Major 6.2 <=5.3 cm Dimension Right Heart Systolic 2.8 cm Mmode TAPSE MV Peak E Abdelrahman PW 1.100 m/s MV Peak A Abdelrahman 0.700 m/s FS 28.81 28 - 44 % EF 48.98 % Left Atrium Index 41.70 10 - 32 E/A ratio 1.57 E/E' ratio 12.22 ECHO EF 55 % Specimen Performing Laboratory OTHER OUTSIDE LAB Narrative Rest Echo: Overall left ventricular systolic function is normal. EF~ 55% No regional wall motion abnormalities identified Aortic valve sclerosis without stenosis Mitral valve thickening with annular calcification No significant pericardial effusion Normal ventricular chamber dimensions Left and right atrial dilation Mild LVH Abnormal diastolic function Normal aortic root dimensions Increased estimated peak systolic PA pressure=38 mmHg No evidence of shunting by saline bubble injection * TROPONIN-I (03/11/2017 8:43 AM) Only the most recent of 5 results within the time period is included. Component Value Ref Range Troponin-I 0.17 (H) 0.0 - 0.05 NG/ML Specimen Performing Laboratory Blood [facility] [address] [place] [address] * FLUORO MOBILE IN OR (03/10/2017 10:18 PM) Specimen Performing Laboratory [facility] RES[facility] Impressions 1. Sluggish flow in the inferior division of the right MCA was identified and was concordant with the territory demonstrating mean transit time elevation on CT perfusion. Therefore a small buttressing clip was removed from the aneurysm. Repeat angiography was performed. This demonstrated robust filling of all vessel territories. There is no obvious change to the configuration of the aneurysm following removal of the small clip. A substantial residual aneurysm is not identified however the images are not optimized to make this definitive interpretation. ATTESTATION: I attest that I performed the entire procedure from beginning to end and am responsible for the image interpretations. Finalized by Edgar Bee M.D. on 03/26/2017 3:02 PM. Dictated by Edgar Bee M.D. on 03/26/2017 2:57 PM. 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 Patient required emergent reoperation for neurologic change. CT perfusion demonstrates prolonged mean transit times involving the inferior division of the right MCA. Intraoperative angiography is performed to evaluate the vasculature. TECHNICAL SERVICES SPECIALIST. Rohit ICT SUPPORT ENGINEER. David PGY-6 PROCEDURE. Intraoperative angiography right internal carotid artery ACCESS. Right common femoral previously placed sheath HEMOSTASIS. Sheath remains in situ. PROCEDURE DETAIL. During the preparation phase for the surgical procedure, the previously placed right femoral sheath was prepped and draped for subsequent intravascular access. The sheath was maintained on a continuous drip. Following surgical resection attention was turned to intraoperative angiography. Under fluoroscopic guidance the catheter was navigated along the descending aorta to the aortic arch over a Glidewire. Under fluoroscopic visualization the above named vessel was selected. Subtracted angiography was performed of the operative site. Sluggish flow in the inferior division of the right MCA was identified and was concordant with the territory demonstrating mean transit time elevation on CT perfusion. Therefore a small buttressing clip was removed from the aneurysm. Repeat angiography was performed. This demonstrated robust filling of all vessel territories. There is no obvious change to the configuration of the aneurysm following removal of the small clip. A substantial residual aneurysm is not identified however the images are not optimized to make this definitive interpretation. The catheter was removed. The sheath remains in situ a pressurized drip for removal in the neuro ICU. FINDINGS: Right internal carotid. Sluggish flow in the inferior division of the right MCA was identified and was concordant with the territory demonstrating mean transit time elevation on CT perfusion. Therefore a small buttressing clip was removed from the aneurysm. Repeat angiography was performed. This demonstrated robust filling of all vessel territories. There is no obvious change to the configuration of the aneurysm following removal of the small clip. A substantial residual aneurysm is not identified however the images are not optimized to make this definitive interpretation. 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 Patient required emergent reoperation for neurologic change. CT perfusion demonstrates prolonged mean transit times involving the inferior division of the right MCA. Intraoperative angiography is performed to evaluate the vasculature. TECHNICAL SERVICES SPECIALIST. Rohit ICT SUPPORT ENGINEER. David PGY-6 PROCEDURE. Intraoperative angiography right internal carotid artery ACCESS. Right common femoral previously placed sheath HEMOSTASIS. Sheath remains in situ. PROCEDURE DETAIL. During the preparation phase for the surgical procedure, the previously placed right femoral sheath was prepped and draped for subsequent intravascular access. The sheath was maintained on a continuous drip. Following surgical resection attention was turned to intraoperative angiography. Under fluoroscopic guidance the catheter was navigated along the descending aorta to the aortic arch over a Glidewire. Under fluoroscopic visualization the above named vessel was selected. Subtracted angiography was performed of the operative site. Sluggish flow in the inferior division of the right MCA was identified and was concordant with the territory demonstrating mean transit time elevation on CT perfusion. Therefore a small buttressing clip was removed from the aneurysm. Repeat angiography was performed. This demonstrated robust filling of all vessel territories. There is no obvious change to the configuration of the aneurysm following removal of the small clip. A substantial residual aneurysm is not identified however the images are not optimized to make this definitive interpretation. The catheter was removed. The sheath remains in situ a pressurized drip for removal in the neuro ICU. FINDINGS: Right internal carotid. Sluggish flow in the inferior division of the right MCA was identified and was concordant with the territory demonstrating mean transit time elevation on CT perfusion. Therefore a small buttressing clip was removed from the aneurysm. Repeat angiography was performed. This demonstrated robust filling of all vessel territories. There is no obvious change to the configuration of the aneurysm following removal of the small clip. A substantial residual aneurysm is not identified however the images are not optimized to make this definitive interpretation. IMPRESSION 1. Sluggish flow in the inferior division of the right MCA was identified and was concordant with the territory demonstrating mean transit time elevation on CT perfusion. Therefore a small buttressing clip was removed from the aneurysm. Repeat angiography was performed. This demonstrated robust filling of all vessel territories. There is no obvious change to the configuration of the aneurysm following removal of the small clip. A substantial residual aneurysm is not identified however the images are not optimized to make this definitive interpretation. ATTESTATION: I attest that I performed the entire procedure from beginning to end and am responsible for the image interpretations. Finalized by Edgar Bee M.D. on 03/26/2017 3:02 PM. Dictated by Edgar Bee M.D. on 03/26/2017 2:57 PM. * PTT (APTT) (03/10/2017 8:50 PM) Only the most recent of 2 results within the time period is included. Component Value Ref Range APTT 29.8Comment: NOTE NEW REFERENCE RANGES 21.0 - 39.0 SEC Specimen Performing Laboratory Blood [facility] [address] [place] [address] * PROTIME INR (PT) (03/10/2017 8:50 PM) Only the most recent of 2 results within the time period is included. Component Value Ref Range INR 1.3 (H) 0.8 - 1.2 Specimen Performing Laboratory Blood [facility] [address] [place] [address] * BLOOD TYPE CONFIRMATION - ORDER ONLY IF REQUESTED BY LAB (03/10/2017 4:00 AM) Component Value Ref Range ABO/RH(D) A POS Specimen [place]forming [place] [address] * TRIGLYCERIDE (03/10/2017 3:25 AM) Component Value Ref Range Triglycerides 84 <150 MG/DL Specimen Performing Laboratory [facility] [address] [place] [address] * PHENCYCLIDINES-URINE RANDOM (03/09/2017 6:45 PM) Component Value Ref Range Phencyclidine (PCP) NEG NEG-NEG Comment: RESULTS WERE OBTAINED BY IMMUNOASSAY AND ARE PRESUMPTIVE ONLY. POSITIVE INDICATES THE PRESENCE OF SUBSTANCE WITH CHARACTERISTICS SIMILAR TO DRUG-DRUG CLASS OR METABOLITE IN CONC. EQUAL TO OR EXCEEDING VALUES LISTED. PHENCYCLIDINE (PCP) 25 NG/ML Specimen Performing Laboratory Urine [facility] [address] [place] [address] * OPIATES-URINE RANDOM (03/09/2017 6:45 PM) Component Value Ref Range Opiates-Urine NEG NEG-NEG Comment: RESULTS WERE OBTAINED BY IMMUNOASSAY AND ARE PRESUMPTIVE ONLY. POSITIVE INDICATES THE PRESENCE OF SUBSTANCE WITH CHARACTERISTICS SIMILAR TO DRUG-DRUG CLASS OR METABOLITE IN CONC. EQUAL TO OR EXCEEDING VALUES LISTED. OPIATES 200 0 NG/ML Specimen Performing Laboratory Urine [facility] [address] [place] [address] * COCAINE-URINE RANDOM (03/09/2017 6:45 PM) Component Value Ref Range Cocaine-Urine NEG NEG-NEG Comment: RESULTS WERE OBTAINED BY IMMUNOASSAY AND ARE PRESUMPTIVE ONLY. POSITIVE INDICATES THE PRESENCE OF SUBSTANCE WITH CHARACTERISTICS SIMILAR TO DRUG-DRUG CLASS OR METABOLITE IN CONC. EQUAL TO OR EXCEEDING VALUES LISTED. COCAINE 300 NG/ML Specimen Performing Laboratory Urine [facility] [address] [place] [id number] * CANNABINOIDS-URINE RANDOM (03/09/2017 6:45 PM) Component Value Ref Range THC NEG NEG-NEG Comment: RESULTS WERE OBTAINED BY IMMUNOASSAY AND ARE PRESUMPTIVE ONLY. POSITIVE INDICATES THE PRESENCE OF SUBSTANCE WITH CHARACTERISTICS SIMILAR TO DRUG-DRUG CLASS OR METABOLITE IN CONC. EQUAL TO OR EXCEEDING VALUES LISTED. CANNABINOIDS 50 NG/ML Specimen Performing Laboratory Urine [facility] [address] [place] [id number] * BENZODIAZEPINES-URINE RANDOM (03/09/2017 6:45 PM) Component Value Ref Range Benzodiazepines POS (A) NEG-NEG Comment: RESULTS WERE OBTAINED BY IMMUNOASSAY AND ARE PRESUMPTIVE ONLY. POSITIVE INDICATES THE PRESENCE OF SUBSTANCE WITH CHARACTERISTICS SIMILAR TO DRUG-DRUG CLASS OR METABOLITE IN CONC. EQUAL TO OR EXCEEDING VALUES LISTED. BENZODIAZEPINES 200 NG/ML Specimen Performing Laboratory Urine [facility] [address] [place] [id number] * BARBITURATES-URINE RANDOM (03/09/2017 6:45 PM) Component Value Ref Range Barbiturates,Urine NEG NEG-NEG Comment: RESULTS WERE OBTAINED BY IMMUNOASSAY AND ARE PRESUMPTIVE ONLY. POSITIVE INDICATES THE PRESENCE OF SUBSTANCE WITH CHARACTERISTICS SIMILAR TO DRUG-DRUG CLASS OR METABOLITE IN CONC. EQUAL TO OR EXCEEDING VALUES LISTED. BARBITURATES 200 NG/ML Specimen Performing Laboratory Urine [facility] [address] [place] [id number] * AMPHETAMINES-URINE RANDOM (03/09/2017 6:45 PM) Component Value Ref Range Amphetamines POS (A) NEG-NEG Comment: RESULTS WERE OBTAINED BY IMMUNOASSAY AND ARE PRESUMPTIVE ONLY. POSITIVE INDICATES THE PRESENCE OF SUBSTANCE WITH CHARACTERISTICS SIMILAR TO DRUG-DRUG CLASS OR METABOLITE IN CONC. EQUAL TO OR EXCEEDING VALUES LISTED. AMPHETAMINES 1000 NG/ML Specimen Performing Laboratory Urine [facility] [address] [place] [id number] * COMPREHENSIVE METABOLIC PANEL (03/09/2017 6:43 PM) Component Value Ref Range Sodium 132 (L) 137 - 147 MMOL/L Potassium 3.5 3.5 - 5.1 MMOL/L Chloride 95 (L) 98 - 110 MMOL/L Glucose 83 70 - 100 MG/DL Blood Urea Nitrogen 36 (H) 7 - 25 MG/DL Creatinine 6.24 (H) 0.4 - 1.24 MG/DL Calcium 8.4 (L) 8.5 - 10.6 MG/DL Total Protein 6.5 6.0 - 8.0 G/DL Total Bilirubin 0.7 0.3 - 1.2 MG/DL Albumin 3.7 3.5 - 5.0 G/DL Alk Phosphatase 61 25 - 110 U/L AST (SGOT) 21 7 - 40 U/L CO2 29 21 - 30 MMOL/L ALT (SGPT) 14 7 - 56 U/L Anion Gap 8 3 - 12 eGFR Non 10 (L) >60 mL/min Comment: The eGFR is not validated for use in drug dosing adjustments. Continue to use estimated creatinine clearance per dosing reference text. Please contact the Clinical Pharmacist for questions. eGFR 12 (L) >60 mL/min Comment: The eGFR is not validated for use in drug dosing adjustments. Continue to use estimated creatinine clearance per dosing reference text. Please contact the Clinical Pharmacist for questions. Specimen Performing Laboratory Blood [facility] [address] [place] [address] * IR ARTERIOGRAM NEURO (03/09/2017 6:35 PM) Specimen Performing Laboratory [facility] RESULTS Addenda Addendum by Lyly Rogel MD on 03/11/2017 10:05 AM Finalized by LYLY ROGEL M.D. on 03/11/2017 8:34 AM. Dictated by LYLY ROGEL M.D. on 03/11/2017 8:22 AM.Addendum: Left Common Femoral Vein Central Line Placement Under fluoroscopic guidance a 4 Thai 10 cm central venous line was placed in the left common femoral vein. Finalized by LYLY ROGEL M.D. on 03/11/2017 10:02 AM. Dictated by LYLY ROGEL M.D. on 03/11/2017 10:01 AM. 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 I performed this procedure without the involvement of a resident or fellow. Narrative Cerebral Angiogram Indication - SAH with IPH Procedures Performed 1) Right common carotid artery cervical angiogram. 2) Selective right internal carotid artery cerebral angiograms x 2. 3) Selective right internal carotid artery 3D cerebral angiogram. 4) Selective right external carotid artery cerebral angiogram. 5) Selective left internal carotid artery cerebral angiograms x 2. 6) Selective left vertebral artery cerebral angiograms x 2. 7) Right common femoral artery angiogram. Referring Physician - Lilian Del Valle M.D. Neurointerventionalist:Lyly Rogel MD I was personally responsible for the administration of moderate sedation services during the procedure performed and I confirm requirements described in CPT section on moderate sedation were followed, including the use of an independent trained observer who had no other duties during the procedure. The total supervised sedation time was 50 minutes.See nursing log for complete details.The drugs utilized were:Versed 0 mg and Fentanyl 100 mcg Contrast - 100 cc [id number] Total mGy - 1174 Anesthesia:conscious sedation Consent -The procedure and its risks, benefits, and alternative treatments were explained to the patient's family over the telephone and a witnessed telephone consent was obtained. Clinical History: Mr. Mayfield is a 51 year old male who presented to the [facility] and was found to have subarachnoid hemorrhage and intraparenchymal hemorrhage due to a ruptured right middle cerebral artery aneurysm. He is here for a cerebral angiogram to further evaluate this aneurysm. Description of Procedure The patient was brought to the angio suite and placed in supine position on the angio table.The right groin was prepped in a standard sterile fashion. Local anesthesia was obtained with 10 cc of 1% lidocaine.Following this, a 5 F 25 cm sheath was placed in the right common femoral artery, establishing arterial access. RCCA Technique A 5 Thai 100 cm Vert catheter was advanced over a 150 cm 0.035 [place] wire over the aortic arch and into the right common carotid artery under fluoroscopic guidance.Images of the right cervical carotids were obtained in biplane projections. RCCA Interpretation The angiogram demonstrated normal flow through the cervical carotids.Mild atherosclerotic disease is seen in the carotid bulb with no significant stenosis. Mild tortuosity is noted in the cervical segment of the right internal carotid artery. PAN Technique Under fluoroscopic and roadmap guidance, the catheter was advanced into the cervical right internal carotid artery and images were obtained in biplane projections of the right anterior intracranial circulation. PAN Interpretation The angiogram demonstrated normal antegrade flow into the right middle and anterior cerebral arteries.A large right middle cerebral artery bifurcation aneurysm is seen, measuring 11.77 mm x 10.99 mm, with bilateral M2 arteries arising from the inferior dome of the aneurysm. Mild intracranial atherosclerotic disease is seen in the pericallosal artery branches. The capillary and venous phases are unremarkable. PAN 3D Angiogram Technique The catheter was attached to the contrast power injector and a right internal carotid artery 3D cerebral angiogram was performed. PAN 3D Angiogram Interpretation The angiogram demonstrated a large right middle cerebral artery bifurcation aneurysm, measuring 11.77 mm x 10.99 mm, with bilateral M2 arteries arising from the inferior dome of the aneurysm. RECA Technique Under fluoroscopic and roadmap guidance, the catheter was advanced into the right external carotid artery and images were obtained in biplane projections of the right extracranial circulation. RECA Interpretation The angiogram demonstrated normal antegrade flow with no evidence of an intracranial anastomosis or early arteriovenous shunting to suggest a dural AVF. LICA Technique Under fluoroscopic and roadmap guidance, the catheter was advanced into the cervical left internal carotid artery and images were obtained in biplane projections of the left anterior intracranial circulation. 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 LVA Technique The left vertebral artery was selectively catheterized under fluoroscopic and roadmap guidance over the [place] wire and images were obtained in biplane projections of the posterior intracranial circulation. LVA Interpretation The angiogram demonstrated normal antegrade flow into the vertebrobasilar artery circulation.Opacification of the contralateral vertebral artery V4 segment and PICA is seen. Mild intracranial atherosclerotic disease is seen in the parieto-occipital branches. The capillary and venous phases are unremarkable. After reviewing the final images, the catheter was removed and a right common femoral artery angiogram was performed.The angiogram demonstrated the access site well above the bifurcation with no branching vessels arising from the site; therefore, hemostasis was achieved using a 6 Thai Angioseal closure device followed by manual pressure for 5 minutes. The patient was transported to the neuro ICU in stable clinical and hemodynamic conditions. Complications - none immediate Procedure Note Interface, Radiant Results - 03/11/2017 10:05 AM [employer]ICE [employer]AD Cerebral Angiogram Indication - SAH with IPH Procedures Performed 1) Right common carotid artery cervical angiogram. 2) Selective right internal carotid artery cerebral angiograms x 2. 3) Selective right internal carotid artery 3D cerebral angiogram. 4) Selective right external carotid artery cerebral angiogram. 5) Selective left internal carotid artery cerebral angiograms x 2. 6) Selective left vertebral artery cerebral angiograms x 2. 7) Right common femoral artery angiogram. Referring Physician - Lilian Del Valle M.D. Neurointerventionalist: Lyly Rogel MD I was personally responsible for the administration of moderate sedation services during the procedure performed and I confirm requirements described in CPT section on moderate sedation were followed, including the use of an independent trained observer who had no other duties during the procedure. The total supervised sedation time was 50 minutes. See nursing log for complete details. The drugs utilized were: Versed 0 mg and Fentanyl 100 mcg Contrast - 100 cc [id number] Total mGy - 1174 Anesthesia: conscious sedation Consent - The procedure and its risks, benefits, and alternative treatments were explained to the patient's family over the telephone and a witnessed telephone consent was obtained. Clinical History: Mr. Mayfield is a 51 year old male who presented to the [facility] and was found to have subarachnoid hemorrhage and intraparenchymal hemorrhage due to a ruptured right middle cerebral artery aneurysm. He is here for a cerebral angiogram to further evaluate this aneurysm. Description of Procedure The patient was brought to the angio suite and placed in supine position on the angio table. The right groin was prepped in a standard sterile fashion. Local anesthesia was obtained with 10 cc of 1% lidocaine. Following this, a 5 F 25 cm sheath was placed in the right common femoral artery, establishing arterial access. RCCA Technique A 5 Thai 100 cm Vert catheter was advanced over a 150 cm 0.035 [place] wire over the aortic arch and into the right common carotid artery under fluoroscopic guidance. Images of the right cervical carotids were obtained in biplane projections. RCCA Interpretation The angiogram demonstrated normal flow through the cervical carotids. Mild atherosclerotic disease is seen in the carotid bulb with no significant stenosis. Mild tortuosity is noted in the cervical segment of the right internal carotid artery. PAN Technique Under fluoroscopic and roadmap guidance, the catheter was advanced into the cervical right internal carotid artery and images were obtained in biplane projections of the right anterior intracranial circulation. PAN Interpretation The angiogram demonstrated normal antegrade flow into the right middle and anterior cerebral arteries. A large right middle cerebral artery bifurcation aneurysm is seen, measuring 11.77 mm x 10.99 mm, with bilateral M2 arteries arising from the inferior dome of the aneurysm. Mild intracranial atherosclerotic disease is seen in the pericallosal artery branches. The capillary and venous phases are unremarkable. PAN 3D Angiogram Technique The catheter was attached to the contrast power injector and a right internal carotid artery 3D cerebral angiogram was performed. PAN 3D Angiogram Interpretation The angiogram demonstrated a large right middle cerebral artery bifurcation aneurysm, measuring 11.77 mm x 10.99 mm, with bilateral M2 arteries arising from the inferior dome of the aneurysm. RECA Technique Under fluoroscopic and roadmap guidance, the catheter was advanced into the right external carotid artery and images were obtained in biplane projections of the right extracranial circulation. RECA Interpretation The angiogram demonstrated normal antegrade flow with no evidence of an intracranial anastomosis or early arteriovenous shunting to suggest a dural AVF. LICA Technique Under fluoroscopic and roadmap guidance, the catheter was advanced into the cervical left internal carotid artery and images were obtained in biplane projections of the left anterior intracranial circulation. LICA Interpretation The angiogram demonstrated normal antegrade flow into the left middle and anterior cerebral arteries. 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 Mild intracranial atherosclerotic disease is seen in the pericallosal artery branches. The capillary and venous phases are unremarkable. LVA Technique The left vertebral artery was selectively catheterized under fluoroscopic and roadmap guidance over the [place] wire and images were obtained in biplane projections of the posterior intracranial circulation. LVA Interpretation The angiogram demonstrated normal antegrade flow into the vertebrobasilar artery circulation. Opacification of the contralateral vertebral artery V4 segment and PICA is seen. Mild intracranial atherosclerotic disease is seen in the parieto-occipital branches. The capillary and venous phases are unremarkable. After reviewing the final images, the catheter was removed and a right common femoral artery angiogram was performed. The angiogram demonstrated the access site well above the bifurcation with no branching vessels arising from the site ; therefore, hemostasis was achieved using a 6 Thai Angioseal closure device followed by manual pressure for 5 minutes. The patient was transported to the neuro ICU in stable clinical and hemodynamic conditions. Complications - none immediate IMPRESSION 1. 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 Due to the M2 arteries arising from the dome, endovascular coil embolization of this aneurysm is not safe and feasible. 2. 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 I performed this procedure without the involvement of a resident or fellow. * CT HEAD EXTERNAL IMAGING (03/09/2017 12:15 AM) Narrative This order has been auto finalized and does not contain a result. * GENERAL RAD CHEST EXTERNAL IMAGING (03/09/2017) Narrative This order has been auto finalized and does not contain a result. from Last 3 Months
--- OUTSIDE RECORDS SUMMARY | 2017-03-26 19:25 | XMS REPORT | Encounter Summary ---
Author Author [facility] Organization [facility] Address Unknown Phone Unavailable Care Team Providers Care Iron Caster Name Role Phone PCP Unavailable Reason for Visit * Auth/Cert Status Reason Specialty Diagnoses / Referred By Referred To Procedures Contact Contact Diagnoses 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HCC) Brain aneurysm subarachnoid hemorrhage Subarachnoid bleed (HCC) Encounter Details Date Type Department Care Team Description 03/09/2017 [facility] Melsisa Del Valle MD Ruptured cerebral - Encounter [id number] aneurysm (HCC) 03/26/2017 [place] [address] [place] [address] [phone] Edgar Leon MD [address] [place] [address] [phone] Social History Tobacco Use Types Packs/Day Years Used Date Current Every Day Smoker 1 30 Sex Assigned at Date Recorded Not on file as of this encounter Last Filed Vital Signs Vital Sign Reading Time Taken Blood Pressure 192/83 03/26/2017 1:47 PM INTERVENTIONIST Pulse 72 03/26/2017 1:47 PM INTERVENTIONIST Temperature 36.8 C (98.3 F) 03/26/2017 1:47 PM INTERVENTIONIST Respiratory Rate - - Oxygen Saturation 95% 03/26/2017 1:47 PM INTERVENTIONIST Inhaled Oxygen - - Concentration Weight 105.9 kg (233 lb 7.5 oz) 03/26/2017 12:47 PM INTERVENTIONIST Height 172.7 cm (5' 8") 03/11/2017 3:28 PM INTERVENTIONIST Body Mass Index 35.5 03/26/2017 12:47 PM INTERVENTIONIST in this encounter Functional Status Functional Status Response Date of Assessment Does the patient have a hearing impairment: No 03/26/2017 Does the patient have a visual impairment: No 03/26/2017 Does the patient have impaired ambulation: Yes 03/26/2017 Does the patient have an activity of daily living Yes 03/26/2017 (ADL) impairment: Cognitive Status Response Date of Assessment Does the patient have a cognitive impairment: Yes 03/26/2017 as of this encounter Medications at Time of Discharge Medication Sig. Disp. Refills Start Date End Date acetaminophen (TYLENOL) Take 2 tablets by mouth 0 03/26/2017 325 mg tablet every 4 hours as needed. albuterol (VENTOLIN HFA) Inhale 2 puffs by mouth 90 mcg/actuation inhaler into the lungs every 4 hours as needed for Wheezing or Shortness of Breath. Shake well before use. amLODIPine (NORVASC) 10 Take 10 mg by mouth mg tablet daily. atorvastatin (LIPITOR) 10 Take 10 mg by mouth at mg tablet bedtime daily. calcium acetate (PHOSLO) Take two tablets with 667 mg capsule meals and take one with snacks doxazosin (CARDURA) 8 mg Take 8 mg by mouth at tablet bedtime daily. ferric citrate 210 mg Take 210 mg by mouth iron tab twice daily. heparin (porcine) PF Inject 0.5 mL under the 03/26/2017 5,000units/0.5mL skin every 8 hours. injection syringe levETIRAcetam (KEPPRA) Take 2 tablets by mouth 03/26/2017 750 mg tablet daily. Do not stop being used for seizure control losartan (COZAAR) 50 mg Take 2 tablets by mouth 90 tablet 3 2016 tablet daily. melatonin 3 mg tab Take 1 tablet by mouth at 03/26/2017 bedtime daily. methylcellulose Apply 1 drop to right eye 12 03/26/2017 (GONIOSOL) 2.5 % as directed as Needed. ophthalmic Indications: DRY EYE solutionIndications: DRY EYE metoprolol XL (TOPROL XL) Take 1 tablet by mouth 03/26/2017 100 mg extended release twice daily. Titration tablet towards home dose 200mg BID niMODipine (NIMOTOP) 30 Take 2 capsules by mouth 48 capsule 0 201603/30/2017 mg capsule every 4 hours for 4 days. nystatin (MYCOSTATIN) Take 5 mL by mouth four 0 03/26/2017 100,000 units/mL oral times daily. suspension QUEtiapine (SEROQUEL) 50 Take 1 tablet by mouth 03/26/2017 mg tablet twice daily. senna/docusate Take 10 mL by mouth twice 03/26/2017 (SENOKOT-S) 8.8/50 mg /10 daily. mL solution as of this encounter Progress Notes * Amairani Miller, RN - 03/26/2017 3:49 PM INTERVENTIONIST Naren Mayfield discharged on 03/26/2017. Discharge instructions reviewed with nurse at rehab facility. Valuables returned: Yes Personal Items / Valuables: Valuables/Belongings home with patient. Home medications: None Functional assessment at discharge complete: Yes PIV removed prior to discharge. Report called to RN at rehab facility. All questions addressed and answered. * Melisa Emery APRN - 03/26/2017 12:43 PM INTERVENTIONIST Formatting of this note may be different from the original. Neurosurgery Progress Note SUBJECTIVE: Patient seen this AM. Did well overnight. No new concerns. Ready for discharge to rehab. OBJECTIVE: Vital Signs: 24 Hour Range BP: (126-198)/(66-89) Temp: [36.3 C (97.3 F)-36.8 C (98.2 F)] Pulse: [60-80] Respirations: [14 PER MINUTE-20 PER MINUTE] SpO2: [91 %-96 %] O2 Delivery: None (Room Air) Awake; oriented to self, setting, year/month Follows commands x 4 extremities Surgical fontanelle soft-full Incisions c/d/i ASSESSMENT/PLAN: 51 y.o. male s/p craniotomy x 2 for repair of right MCA aneurysm 03/10/2017 Active Hospital Problems Diagnosis 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HCC) Added automatically from request for surgery [id number] IVH (intraventricular hemorrhage) (HCC) Intraparenchymal hematoma of brain (HCC) Subarachnoid bleed (HCC) Acquired skull defect Added automatically from request for surgery [id number] SBP goal - normotensive Nimotop SQH Keppra (renal dosing) PT/OT - inpatient rehab - plan for cranioplasty after discharge from rehab Accepted to rehab, plan for transfer this afternoon Prophylaxis: A)GI: PPI B) Lines: No C) Urinary Catheter: No D) Antibiotic Usage: No E) VTE: Pharmacological prophylaxis; SQ Heparin and Mechanical prophylaxis; Sequential compression device F) Restraints: Patient assessed for need for restraints. Please call [phone] with questions. Melisa Emery APRN * Eddie Oconnor MBBS - 03/26/2017 10:43 AM INTERVENTIONIST Formatting of this note may be different from the original. Renal Progress Note Name: Naren Mayfield Today's Date: 03/26/2017 Admission Date: 03/09/2017 LOS: 17 days Assessment and Plan Principal Problem: 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HCC) Active Problems: IVH (intraventricular hemorrhage) (HCC) Intraparenchymal hematoma of brain (HCC) Subarachnoid bleed (HCC) Acquired skull defect Naren Mayfield is a 51 y.o. male with Subarachnoid hemorrhage s/p clipping ESRD on dialysis HTN: MAP goal>80 per neuro team Hyperphosphatemia: moderate, should improve with dialysis Metabolic Acidosis - this has corrected with dialysis, but continues to have high anion gap Plan Hemodialysis today. I saw and examined pt on HD multiple times given persistently elevated BP. UF of 3 L Plan to maintain MAP>80 per neuro team Check daily phos level Dose meds with dialysis. Ok to discharge to inpatient rehab from renal standpoint. CIPRIANO De La Rosa Pager [phone] Subjective Naren Mayfield is a 51 y.o. male. Awake and alert. No acute events. No reported fever. Medications MEDS amLODIPine 10 mg Oral QDAY atorvastatin 10 mg Oral QHS bisacodyl 10 mg Rectal QDAY docusate 100 mg Feeding Tube BID doxazosin 8 mg Oral QDAY heparin (porcine) 5,000 Units Subcutaneous Q8H insulin aspart 0-7 Units Subcutaneous 5 X Day levETIRAcetam 1,500 mg Oral QDAY losartan 50 mg Oral QDAY melatonin 3 mg Oral QHS metoprolol tartrate 50 mg Oral BID milk of magnesia (CONC) 10 mL Feeding Tube QDAY niMODipine 60 mg Oral Q4H nystatin 500,000 Units Swish & Swallow QID QUEtiapine 50 mg Oral BID senna/docusate 10 mL Oral BID IV MEDS Prn acetaminophen Q4H PRN 650 mg at 03/26/17 1001, albuterol Q4H PRN, haloperidol Q6H PRN 5 mg at 03/21/17 0542, hydrALAZINE Q6H PRN 20 mg at 0325, labetalol (NORMODYNE; TRANDATE) injection Q4H PRN 10 mg at 03/25/17 0205, methylcellulose PRN 1 drop at 03/20/17 1623, ondansetron Q6H PRN, oxyCODONE Q4H PRN 5 mg at 03/26/17 1055, pancrelipase 20,000 Units/ sodium bicarbonate 650 mg(#) PRN (Production Aide from Rx), sodium chloride 0.9% (NS) IP Dialysis PRN, sodium chloride 0.9% (NS) IP Dialysis PRN Stopped at 03/26/17 0836 , sodium chloride 0.9% (NS) IP Dialysis PRN Physical Exam Vital Signs: Last Filed In 24 Hours Vital Signs: 24 Hour Range BP: 182/85 (03/26 1230) Temp: 36.4 C (97.5 F) (03/26 0848) Pulse: 75 (03/26 1230) Respirations: 20 PER MINUTE (03/26 1230) SpO2: 94 % (03/26 1230) O2 Delivery: None (Room Air) (03/26 0653) SpO2 Pulse: 75 (03/26 1230) BP: (126-198)/(66-89) Temp: [36.3 C (97.3 F)-36.8 C (98.2 F)] Pulse: [60-80] Respirations: [14 PER MINUTE-20 PER MINUTE] SpO2: [91 %-96 %] O2 Delivery: None (Room Air) Intensity Pain Scale 0-10 (Pain 1): Asleep (03/26/17 0004) Intake/Output Summary (Last 24 hours) at 03/26/17 1243 Last data filed at 03/26/17 1230 Gross per 24 hour Intake 1160 ml Output 0 ml Net 1160 ml Vitals: 03/23/17 1045 03/23/17 1445 03/26/17 0848 Weight: (S) 104.4 kg (230 lb 2.6 oz) 104.2 kg (229 lb 11.5 oz) 107.4 kg (236 lb 12.4 oz) Gen: pleasant CV: no JVD, S1 and S2 normal, no rubs, murmurs or gallops Pulm: decreased breath sounds at bases GI: BS+ x4, non-tender to palpation Neuro: Alert, answering questions appropriately Ext: no edema Skin: no rash Labs Recent Labs 03/24/1741203/25/1742603/26/17 0420 NA 137 136* 134* K 4.6 4.7 5.7* CL 97* 96* 93* CO2 19* 17* 16* GAP 21* 23* 25* BUN 49* 66* 77* CR 6.39* 8.73* 10.46* GLU 94 91 118* CA 10.1 10.5 11.0* PO4 6.5* -- -- Recent Labs 03/24/1741203/25/1742603/26/17 0420 WBC 7.8 7.3 6.1 HGB 10.0* 9.3* 9.4* HCT 29.1* 27.4* 27.2* PLTCT 217 228 221 Estimated Creatinine Clearance: 10.1 mL/min (based on Cr of 10.46). Vitals: 03/23/17 1045 03/23/17 1445 03/26/17 0848 Weight: (S) 104.4 kg (230 lb 2.6 oz) 104.2 kg (229 lb 11.5 oz) 107.4 kg (236 lb 12.4 oz) No results for input(s): PHART, PO2ART in the last 72 hours. Invalid input(s): PC02A CIPRIANO De La Rosa * Carie Kinney, OT - 03/26/2017 10:00 AM INTERVENTIONIST OCCUPATIONAL THERAPY NO TREATMENT NOTE Patient off unit to dialysis at this time and unavailable for occupational therapy. OT will continue to follow. Therapist: ROME Portillo/Omar [id number] Date: 03/26/2017 * Miguel Angel Godoy, PT - 03/25/2017 10:57 AM INTERVENTIONIST PHYSICAL THERAPY PROGRESS NOTE MOBILITY: Mobility Progressive Mobility Level: Walk in hallway Distance Walked (feet): 84 ft Level of Assistance: Assist X2 Assistive Device: Walker Time Tolerated: 11-30 minutes Activity Limited By: Weakness;Mental Status Variability SUBJECTIVE: Subjective Significant hospital events: 51 y.o. male presenting from OSH after being at dialysis 03/09 when he became acutely unresponsive. CT was done at OSH and demonstrated SAH and a possible MCA aneurysm. Patient was then transferred to for further care and management. 03/10 s/p craniotomy for aneurysm clipping; returned emergently to OR for epidural bleed and hemicraniectomy Mental / Cognitive Status: Cooperative;Alert;Follows Commands Persons Present: OT Pain: Patient has no complaint of pain Pain Interventions: Patient agrees to participate in therapy;Patient assisted into position of comfort;Patient pre-medicated Precautions: Helmet on when Out of Bed BED MOBILITY/TRANSFERS: Bed Mobility/Transfers Bed Mobility: Supine to Sit: Minimal Assist;Assist with Trunk;Head of Bed Elevated;Requires Extra Time Transfer Type: Sit to Stand Transfer: Assistance Level: To/From;Bed;Bed Side Chair;Minimal Assist;x2 People Transfer: Assistive Device: Hand Hold Assist;Roller Walker Transfers: Type Of Assistance: Verbal Cues;For Balance;For Safety Considerations End Of Activity Status: Nursing Notified;Instructed Patient to Request Assist with Mobility;Instructed Patient to Use Call Light;Up in Chair (bed alarm on) Comments: Patient is able to stand min assist, but requires mod/max manual cues to stand due to obstinance. GAIT: Gait Gait Distance: 84 feet Gait: Assistance Level: Minimal Assist;x2 People (chair follow) Gait: Assistive Device: Hand Hold Assist;Roller Walker Gait: Descriptors: Pace: Slow;Pathway deviations;Loss of balance;Variable step length;Scissoring;Step-To Gait;Forward trunk flexion Comments: With hand hold patient is mod x2 due to pathway deviatrions and impulsivity. Activity Limited By: Complaint of Fatigue EDUCATION: Education Persons Educated: Patient Patient Barriers To Learning: Cognitive Deficits Interventions: Repetition of Instructions Teaching Methods: Verbal Instruction Patient Response: Verbalized Understanding;More Instruction Required Topics: Plan/Goals of PT Interventions;Mobility Progression;Safety Awareness;Up with Assist Only;Importance of Increasing Activity;Recommend Continued Therapy ASSESSMENT/PROGRESS: Assessment/Progress Impaired Mobility Due To: Decreased Strength;Impaired Balance;Cognitive Deficits ;Safety Concerns;Decreased Activity Tolerance Assessment/Progress: Should Improve w/ Continued PT Comments: Patient seen with OT due to time constraints, patient is able to tolerate seperate therapies AM-PAC 6 Clicks Basic Mobility Inpatient Turning from your back to your side while in a flat bed without using bed rails : A Little Moving from lying on your back to sitting on the side of a flatbed without using bedrails : A Little Moving to and from a bed to a chair (including a wheelchair): Total Standing up from a chair using your arms (e.g. wheelchair, or bedside chair): Total To walk in hospital room: Total Climbing 3-5 steps with a railing: Total Raw Score: 10 Standardized (T-scale) Score: 28.13 Basic Mobility CMS 0-100%: 71.92 CMS G Code Modifier for Basic Mobility: CL GOALS: Goals Goal Formulation: With Patient (Simultaneous filing. User may not have seen previous data.) Time For Goal Achievement: 7 days Pt Will Go Supine To/From Sit: w/ Minimal Assist Pt Will Transfer Bed/Chair: w/ Minimal Assist, w/ Assist of 2 Pt Will Transfer Sit to Stand: w/ Minimal Assist Pt Will Ambulate: 51-100 Feet, w/ No Device Pt Will Achieve Sitting Balance: Static Sitting Balance, Dynamic Sitting Balance , No UE Support, Minimal Assist PLAN: Plan Treatment Interventions: Mobility Training;Strengthening;Balance Activities; Coordination Training;Endurance Training;Neuromuscular Reeducation Plan Frequency: 5 Days per Week Comments: increase ambulation; standing balance exercies RECOMMENDATIONS: PT Discharge Recommendations PT Discharge Recommendations: Inpatient Setting;Recommend Physical Medicine and Rehabilitation Consult to address most appropriate level of rehabilitation placement Therapist: Miguel Angel Godoy, PT Date: 03/25/2017 * Sharyn Rutledge - 03/25/2017 10:54 AM INTERVENTIONIST Formatting of this note may be different from the original. OCCUPATIONAL THERAPY PROGRESS NOTE Patient Name: Naren Mayfield Room/Bed: [id number] Admitting Diagnosis: subarachnoid hemorrhage Subarachnoid bleed (HCC) Past Medical History: Diagnosis Date DM (diabetes mellitus) (HCC) HLD (hyperlipidemia) HTN (hypertension) Renal failure Mobility Progressive Mobility Level: Walk in hallway Distance Walked (feet): 84 ft Level of Assistance: Assist X2 Assistive Device: Walker Time Tolerated: 11-30 minutes Activity Limited By: Fatigue;Mental Status Variability Subjective Pertinent Dx per Physician: 51 y.o. male with PMH of HLD, HTN, renal failure, dialysis, and diabetes presenting from OSH after being at dialysis 03/09 when he became acutely unresponsive. CT was done at OSH and demonstrated SAH and a possible MCA aneurysm. Patient was then transferred to for further care and management. Precautions: Falls (helmet when out of bed) Pain / Complaints: Patient agrees to participate in therapy Comments: Patient in bed at start of session. Left in chair with TABS alarm set , call light within reach and RN notified of patient status. Recommend bed bath rather than shower this date due to patient being unsafe/impulsive/ uncooperative with safety instructions. Objective Psychosocial Status: Participates in Therapy with Encouragement Persons Present: Sister;PT ADL's Where Assessed: Standing at Sink;In Bathroom Grooming Assist: Minimal Assist Grooming Deficits: Steadying;Verbal Cueing;Supervision/Safety;Increased Time To Complete;Wash/Dry Hands LE Dressing Assist: Moderate Assist LE Dressing Deficits: Don/Doff R Sock;Don/Doff L Sock Toileting Assist: Minimal Assist Toileting Deficits: Steadying;Supervision/Safety Functional Transfer Assist: Minimal Assist (x2) Comment: Patient re-educated on purpose of wearing a helmet. Patient continually taking helmet off and wearing incorrectly. Required maximum encouragement to don socks. Patient refused attempting ambulation without walker. Ambulated in hallway. Performed toileting and grooming in bathroom with minimal assist of 1 for steadying. Activity Tolerance Endurance: 3/5 Tolerates 25-30 Minutes Exercise w/Multiple Rests Sitting Balance: 3+/5 Sits w/o UE Support for 30 Seconds or Greater Cognition Overall Cognitive Status: Impaired Social Interaction: Encouragement/Coaxing to Participate Problem Solving: Decreased Judgment/Safety Education Persons Educated: Patient Barriers To Learning: Cognitive Deficits Interventions: Repetition of Instructions Teaching Methods: Verbal Instruction Patient Response: More Instruction Required Topics: Role of OT, Goals for Therapy;Home safety Goal Formulation: With Patient Assessment Assessment: Decreased ADL Status;Decreased Endurance;Decreased Self-Care Trans; Decreased High-Level ADLs;Decreased Safe/Judg during ADL;Decreased Cognition Prognosis: Good Goal Formulation: Patient AM-PAC 6 Clicks Daily Activity Inpatient Putting on and taking off regular lower body clothes?: A Lot Bathing (Including washing, rinsing, drying): A Lot Toileting, which includes using toilet, bedpan, or urinal: A Little Putting on and taking off regular upper body clothing: A Little Taking care of personal grooming such as brushing teeth: A Little Eating meals?: None Daily Activity Raw Score: 17 Standardized (t-scale) score: 37.26 CMS 0-100% Score: 50.11 CMS G Code Modifier: CK Plan Treatment Interventions: ADL Retraining;Functional Transfer Training;Cognitive Reorientation;Patient/Family Training;Equipment Evaluation/Education; Compensatory Technique Education OT Frequency: 5x/week ADL Goals Patient Will Perform Grooming: Standing at Sink, w/ Stand By Assist Functional Transfer Goals Pt Will Perform All Functional Transfers: w/ Stand By Assist Pt Will Transfer To Bedside Commode: Met OT Discharge Recommendations OT Discharge Recommendations: Inpatient Setting Equipment Recommendations: Too early to be determined Therapist: Sharyn Monroy OTR/L [id number] Date: 03/25/2017 * Eddie Oconnor MBBS - 03/25/2017 10:17 AM INTERVENTIONIST Formatting of this note may be different from the original. Renal Progress Note Name: Naren Mayfield Today's Date: 03/25/2017 Admission Date: 03/09/2017 LOS: 16 days Assessment and Plan Principal Problem: 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HCC) Active Problems: IVH (intraventricular hemorrhage) (HCC) Intraparenchymal hematoma of brain (HCC) Subarachnoid bleed (HCC) Acquired skull defect Naren Mayfield is a 51 y.o. male with Subarachnoid hemorrhage s/p clipping ESRD on dialysis HTN: MAP goal>80 per neuro team Hyperphosphatemia: moderate, should improve with dialysis Metabolic Acidosis - this has corrected with dialysis, but continues to have high anion gap Plan No urgent indication for dialysis today We will evaluate daily for dialysis needs but anticipate next dialysis tomorrow. Plan UF of 2-3 L as BP tolerates. Plan to maintain MAP>80 per neuro team Check daily phos level Dose meds with dialysis. CIPRIANO De La Rosa Pager [phone] Subjective Naren Mayfield is a 51 y.o. male. Awake and alert. No acute events. No reported fever. Medications MEDS amLODIPine 10 mg Oral QDAY atorvastatin 10 mg Oral QHS bisacodyl 10 mg Rectal QDAY docusate 100 mg Feeding Tube BID doxazosin 8 mg Oral QDAY heparin (porcine) 5,000 Units Subcutaneous Q8H insulin aspart 0-7 Units Subcutaneous 5 X Day levETIRAcetam 1,500 mg Oral QDAY losartan 50 mg Oral QDAY melatonin 3 mg Oral QHS metoprolol tartrate 50 mg Oral BID milk of magnesia (CONC) 10 mL Feeding Tube QDAY niMODipine 60 mg Oral Q4H nystatin 500,000 Units Swish & Swallow QID QUEtiapine 50 mg Oral BID senna/docusate 10 mL Oral BID IV MEDS Prn acetaminophen Q4H PRN 650 mg at 03/25/17 1841, albuterol Q4H PRN, haloperidol Q6H PRN 5 mg at 03/21/17 0542, hydrALAZINE Q6H PRN 20 mg at 0650, labetalol (NORMODYNE; TRANDATE) injection Q4H PRN 10 mg at 03/25/17 0205, methylcellulose PRN 1 drop at 03/20/17 1623, ondansetron Q6H PRN, oxyCODONE Q4H PRN, pancrelipase 20,000 Units/ sodium bicarbonate 650 mg(#) PRN ( Production Aide from Rx), sodium chloride 0.9% (NS) IP Dialysis PRN Physical Exam Vital Signs: Last Filed In 24 Hours Vital Signs: 24 Hour Range BP: 151/73 (03/25 1917) Temp: 36.7 C (98.1 F) (03/25 1917) Pulse: 70 (03/25 2011) Respirations: 14 PER MINUTE (03/25 2011) SpO2: 94 % (03/25 1917) O2 Delivery: None (Room Air) (03/25 1917) BP: (126-177)/(66-82) Temp: [36.2 C (97.1 F)-36.9 C (98.5 F)] Pulse: [60-79] Respirations: [14 PER MINUTE-18 PER MINUTE] SpO2: [93 %-96 %] O2 Delivery: None (Room Air) Intensity Pain Scale 0-10 (Pain 1): 8 (03/25/17 1841) Intake/Output Summary (Last 24 hours) at 03/25/172016 Last data filed at 03/25/17 1453 Gross per 24 hour Intake 0 ml Output 0 ml Net 0 ml Vitals: 03/23/17 0400 03/23/17 1045 03/23/17 1445 Weight: 103.9 kg (229 lb 0.9 oz) (S) 104.4 kg (230 lb 2.6 oz) 104.2 kg (229 lb 11.5 oz) Gen: pleasant CV: no JVD, S1 and S2 normal, no rubs, murmurs or gallops Pulm: decreased breath sounds at bases GI: BS+ x4, non-tender to palpation Neuro: Alert, answering questions appropriately Ext: no edema Skin: no rash Labs Recent Labs 03/23/1743803/24/1741203/25/17 0427 NA 136* 137 136* K 4.2 4.6 4.7 CL 92* 97* 96* CO2 17* 19* 17* GAP 27* 21* 23* BUN 78* 49* 66* CR 8.84* 6.39* 8.73* GLU 91 94 91 CA 10.9* 10.1 10.5 MG 2.6 -- -- PO4 8.6* 6.5* -- Recent Labs 03/23/1743803/24/1741203/25/17 042 WBC 6.8 7.8 7.3 HGB 9.3* 10.0* 9.3* HCT 28.1* 29.1* 27.4* PLTCT 249 217 228 Estimated Creatinine Clearance: 12 mL/min (based on Cr of 8.73). Vitals: 03/23/17 0400 03/23/17 1045 03/23/17 1445 Weight: 103.9 kg (229 lb 0.9 oz) (S) 104.4 kg (230 lb 2.6 oz) 104.2 kg (229 lb 11.5 oz) Recent Labs 03/23/17438 PHART 7.26* PO2ART 74* CIPRIANO De La Rosa * Maria Dolores Simmons APRN - 03/25/2017 8:46 AM INTERVENTIONIST Formatting of this note may be different from the original. Neurosurgery Progress Note SUBJECTIVE: Patient stable overnight. Doing well this AM. Reports prior to hospital he was running high blood pressures, difficult to control per the family at bedside. OBJECTIVE: Vital Signs: 24 Hour Range BP: (148-198)/(69-93) Temp: [36.2 C (97.1 F)-37.1 C (98.7 F)] Pulse: [62-79] Respirations: [15 PER MINUTE-20 PER MINUTE] SpO2: [93 %-95 %] O2 Delivery: None (Room Air) Awake; oriented to self, setting, year/month Follows commands x 4 extremities Surgical fontanelle soft-full Incisions c/d/i ASSESSMENT/PLAN: 51 y.o. male s/p craniotomy x 2 for repair of right MCA aneurysm 03/10/2017 Active Hospital Problems Diagnosis 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HCC) Added automatically from request for surgery [id number] IVH (intraventricular hemorrhage) (HCC) Intraparenchymal hematoma of brain (HCC) Subarachnoid bleed (HCC) Acquired skull defect Added automatically from request for surgery [id number] SBP goal - normotensive Nimotop SQH Keppra (renal dosing) PT/OT - inpatient rehab - plan for [facility] pending cranioplasty-if can be placed will wait to complete cranioplasty CT head 03/23 reviewed Prophylaxis: A)GI: PPI B) Lines: No C) Urinary Catheter: No D) Antibiotic Usage: No E) VTE: Pharmacological prophylaxis; SQ Heparin and Mechanical prophylaxis; Sequential compression device F) Restraints: Patient assessed for need for restraints. Please call [phone] with questions. Maria Dolores Simmons, ROLO 1807 * Jay Mortensen - 03/24/2017 4:28 PM INTERVENTIONIST ORTHOTICS/PROSTHETICS Follow-up Note: NAME: Naren Mayfield ROOM: [place] [address] DIAGNOSIS: brain bleed DATE OF INITIAL CONSULT: 03-19-17 Order to check helmet fit - pt feels compression in width=discomfort. Trial fit of next size larger did not appear to fit=too large and very loose. Removed padding / liner form sides and added foam suspension top/crown and anterior brow. This seems to improve fit & suspensionto pt's comfort tolerance. Continue use and follow prn. Thank you Orthotics can be reached at [phone]. Jay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 clothes?: A Lot Bathing (Including washing, rinsing, drying): A Lot Toileting, which includes using toilet, bedpan, or urinal: A Lot Putting on and taking off regular upper body clothing: None Taking care of personal grooming such as brushing teeth: A Little Eating meals?: None Daily Activity Raw Score: 17 Standardized (t-scale) score: 37.26 CMS 0-100% Score: 50.11 CMS G Code Modifier: CK Plan Treatment Interventions: ADL Retraining;Functional Transfer Training;Endurance Training;Patient/Family Training;Cognitive Reorientation;Equipment Evaluation/ Education;Compensatory Technique Education OT Frequency: 5x/week Next session: Progress ADLs at sink with focus on safety and use of walker. ADL Goals Patient Will Perform Grooming: Standing at Sink, w/ Stand By Assist Functional Transfer Goals Pt Will Perform All Functional Transfers: w/ Stand By Assist Pt Will Transfer To Bedside Commode: Met OT Discharge Recommendations OT Discharge Recommendations: Inpatient Setting Equipment Recommendations: Too early to be determined Therapist: Sharyn Monroy, OTR/L [id number] Date: 03/22/2017 * Carole Sloan, PT - 03/22/2017 10:09 AM INTERVENTIONIST PHYSICAL THERAPY PROGRESS NOTE MOBILITY: Mobility Progressive Mobility Level: Walk in hallway Distance Walked (feet): 200 ft Level of Assistance: Assist X2 Assistive Device: Walker Time Tolerated: 11-30 minutes Activity Limited By: Weakness SUBJECTIVE: Subjective Significant hospital events: 51 y.o. male presenting from OSH after being at dialysis 03/09 when he became acutely unresponsive. CT was done at OSH and demonstrated SAH and a possible MCA aneurysm. Patient was then transferred to for further care and management. 03/10 s/p craniotomy for aneurysm clipping; returned emergently to OR for epidural bleed and hemicraniectomy Mental / Cognitive Status: Cooperative;Alert;Follows Commands Persons Present: [employer] Consultant Pain: Patient has no complaint of pain Pain Interventions: Patient agrees to participate in therapy;Patient assisted into position of comfort;Patient pre-medicated Comments: No bone flap R side Precautions: Helmet on when Out of Bed Comments: PMH: HLD, HTN, renal failure, dialysis, and diabetes BED MOBILITY/TRANSFERS: Bed Mobility/Transfers Bed Mobility: Supine to Sit: Minimal Assist;Assist with Trunk;Head of Bed Elevated;Requires Extra Time Transfer Type: Sit to Stand Transfer: Assistance Level: To/From;Bed;Minimal Assist;x2 People Transfer: Assistive Device: Hand Hold Assist Transfers: Type Of Assistance: Verbal Cues;For Balance;For Safety Considerations End Of Activity Status: Nursing Notified;Instructed Patient to Request Assist with Mobility;Instructed Patient to Use Call Light;In Bed (bed alarm on) GAIT: Gait Gait Distance: 100 feet (additional 200; with RW at patients request) Gait: Assistance Level: Moderate Assist;of 1st person;of 2nd person;Management of Lines (chair follow) Gait: Assistive Device: Hand Hold Assist (and roller walker) Gait: Descriptors: Pace: Slow;Pathway deviations;Loss of balance;Variable step length;Scissoring;Step-To Gait;Forward trunk flexion Activity Limited By: Complaint of Fatigue EDUCATION: Education Persons Educated: Patient Patient Barriers To Learning: Cognitive Deficits Interventions: Repetition of Instructions Teaching Methods: Verbal Instruction Patient Response: Verbalized Understanding;More Instruction Required Topics: Plan/Goals of PT Interventions;Mobility Progression;Safety Awareness;Up with Assist Only;Importance of Increasing Activity;Recommend Continued Therapy ASSESSMENT/PROGRESS: Assessment/Progress Impaired Mobility Due To: Decreased Strength;Impaired Balance;Cognitive Deficits ;Safety Concerns;Decreased Activity Tolerance Assessment/Progress: Should Improve w/ Continued PT AM-PAC 6 Clicks Basic Mobility Inpatient Turning from your back to your side while in a flat bed without using bed rails : A Little Moving from lying on your back to sitting on the side of a flatbed without using bedrails : A Little Moving to and from a bed to a chair (including a wheelchair): Total Standing up from a chair using your arms (e.g. wheelchair, or bedside chair): Total To walk in hospital room: Total Climbing 3-5 steps with a railing: Total Raw Score: 10 Standardized (T-scale) Score: 28.13 Basic Mobility CMS 0-100%: 71.92 CMS G Code Modifier for Basic Mobility: CL GOALS: Goals Goal Formulation: With Patient Time For Goal Achievement: 7 days Pt Will Go Supine To/From Sit: w/ Minimal Assist Pt Will Transfer Bed/Chair: w/ Minimal Assist, w/ Assist of 2 Pt Will Transfer Sit to Stand: w/ Minimal Assist Pt Will Ambulate: 51-100 Feet, w/ No Device Pt Will Achieve Sitting Balance: Static Sitting Balance, Dynamic Sitting Balance , No UE Support, Minimal Assist PLAN: Plan Treatment Interventions: Mobility Training;Strengthening;Balance Activities; Coordination Training;Endurance Training;Neuromuscular Reeducation Plan Frequency: 5 Days per Week Comments: increase ambulation; standing balance exercises RECOMMENDATIONS: PT Discharge Recommendations PT Discharge Recommendations: Inpatient Setting;Recommend Physical Medicine and Rehabilitation Consult to address most appropriate level of rehabilitation placement Therapist: Carole Sloan, PT Date: 03/22/2017 * Jeancarlos Menendez MD - 03/22/2017 7:41 AM INTERVENTIONIST Formatting of this note may be different from the original. 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 CT was done at OSH and demonstrated SAH and a possible MCA aneurysm. Patient was then transferred to for further care and management. Hospital and ICU course: 03/09: Admit NEICU. CTA. Angiogram 03/10: To OR for clipping, emergent return to OR due to epidural bleed kept intubated, hemicraniectomy 03/11: Dialysis, remains intubated. 03/12: Sheaths to be d/c'd today corpak placed. wean trial today 03/13: MS change, vasospasms on CTA 03/14: MS improved, PLEDs on VEEG 03/15: Extubated, VEEG stopped 03/16: Attempting to wean sedation 03/17: Face shield for breathing trouble, Pulm to assist with left lower lobe effusion 03/21: Room air, vasospasm watch Neuro: IPH rt temporal lobe, SAH rt frontotemporal lobe, epidural bleed, s/p right hemicraniectomy Escobar and Moore Grade (on admission): 4 Modified Stone Grade (on admission): 3 Evidence of hydrocephalus:No EVD at: N/A Sodium Goal:135-145 - 03/09 CTA Head: 1. Large saccular aneurysm projecting laterally from the right MCA bifurcation measuring up to 1.5 cm in maximum diameter. No significant change in surrounding right anterior temporal parenchymal hematoma as well as scattered right convexity subarachnoid hemorrhage. Small amount of layering blood products are noted within the occipital horn of the left lateral ventricle. No progressive ventricular distention to suggest hydrocephalus. Moderate nonspecific white matter disease, likely due to chronic microvascular ischemia. 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 - 03/10 S/p Clipping and craniectomy - 03/13 CTA head: 1. Mild increased smooth narrowing of the intracranial arterial vasculature, most notably within the A1 segments, consistent with mild vasospasm. No high-grade intracranial arterial stenosis is identified. 2. 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 3. Increased conspicuity of moderate sized infarct/cytotoxic edema within the anterior right temporal lobe. 4. Persistent mild transcranial herniation at the right pterional craniectomy site with improving intracranial mass effect. 5. Improving localized subarachnoid hemorrhage within the right sylvian fissure.6. Bony thinning and probable dehiscence of the right jugular bulb sigmoid plate. - 03/13 CT perfusion: 1. Scattered small and moderate sized mismatch perfusion defects within the bilateral cerebral and cerebellar hemispheres, likely related to aforementioned vasospasm. 2. Moderate-sized matched perfusion defect within the anterior right temporal lobe, consistent with completed infarct. This is underestimated on the quantitative RAPID software. -03/14 VEEG- Right PLEDs, severe diffuse slowing -03/15 VEEG- Right PLEDs, severe diffuse slowing Extubated. Follows commands and able to speak, Left face droop, weakness in left leg-improving - UDS + amphetamines on admission - SBP Goal 130-180 to help with vasospasms - Nimodipine [id number] - Continue Keppra 1500mg daily after dialysis - TCDs Daily - Neuro-ICU monitoring, neurochecks q 2 hrs Sedation/Pain Management: Yes -ICU delirium - Stop Precedex - Fentanyl PRN - Seroquel BID 50mg - Haldol prn - Melatonin 3mg Qhs - Delirium protocol Cardiac: HTN, HLD - SBP goal: 130-180 - MAP goal > 65 - EKG with SR, LVH - 03/11 Restart BACK TUFTER minoxidil and metoprolol BID - 03/11 ECHO EF 55% - 03/13 Stop minoxidil - 03/19: restart metoprolol 50mg BID - 03/20: restart amlodipine 10mg qday -03/21: restart losartan 50mg, restart doxasozin 4mg, hold off on HCTZ as not a good BP med in someone who produces no urine -PRN labetalol and hyrdralazine Respiratory: Pleural effusion Date of Intubation: 03/09/17 Date of extubation: 03/15/17 Reason: Airway protection - OSH CXR with near complete opacification of left lung, likely pleural fluid. CXR at slightly improved - 03/10 CXR: Large left pleural effusion and left lung atelectasis. Slight progression of right basilar atelectasis. Cardiomegaly. - PaO2 goal >100, Spo2 goal >95%, PCO2 goal 35-40 torr, chest physiotherapy, bronchotherapy, PD& V q 6 hrs - Pulmonary team consulted for plural effusion - 1.7L removed from pleural effusion 03/14 - Bloody and exudative fluid - Cytology-no malignant cells - Pleural effusion remains- Pulmonary consulted - Pulmonary toilet/physio GI: -Fiber added to thicken up stool, remove rectal tube - neurosurgery bowel regimen, ensure daily BM -Speech therapy eval-pureed diet with nectar thick liquids, will encourage PO intake, stop tube feeds, if not getting enough in will restart tube feeds Heme: - assess for coagulopathy, maintain platelets above 100k, INR <1.5 - TEG did not identify any decreased clotting problems ID: - aim for normothermia, Temp <38.3 celsius, normothermia protocol if febrile Renal: ESRDon dialysis , - Renal consult - dialysis 03/21 2L - Do not want to lower bp by pulling too much fluid as at risk for vasospasm. Map goal of >80 during dialysis - Aim for normovolemia Intake/Output Summary (Last 24 hours) at 03/22/17 0741 Last data filed at 03/22/17 0600 Gross per 24 hour Intake 1730 ml Output 2610 ml Net -880 ml Endocrine: DM - 03/12 BG on chem 151- will start accuchecks x5 daily with SSI - 03/12 A1C-5.2 - Blood glucose goal 100-180mg/dl FEN: - IVF: No maintenance fluid - Magnesium goal >2.0, i-Jarred goal > 1.0, Potassium goal >4.0 mEq/L Prophylaxis Review: A) GI:[id number] B) Lines:2 peripheral lines and Right arterial line C) Urinary Catheter:No D) Antibiotic Usage:No E) VTE:SCDs F) Isolation:NA G)Seizures:Keppra I) Restraints: Patient assessed for need for restraints. Disposition/Family:Neuro critical care team will sign off on patient. Please page with questions or concerns. Primary service:NSG Consults: NEICU, Renal, Pulmonary __ SUBJECTIVE Naren Mayfield is a 51 y.o. male. Overnight Events:No events overnight. Patient feels he is continuing to improve. OBJECTIVE Vital Signs: Last Filed Vital Signs: 24 Hour Range BP: 161/89 (03/21 1400) ABP: 186/70 (03/22 0700) Temp: 36.9 C (98.4 F) (03/22 0400) Pulse: 79 (03/22 0700) Respirations: 19 PER MINUTE (03/22 0700) SpO2: 97 % (03/22 0700) O2 Delivery: Nasal Cannula (03/22 07) Weight: 103.2 kg (227 lb 8.2 oz) (03/21 1230) BP: (145-201)/(56-89) ABP: (145-203)/(52-80) Temp: [36.4 C (97.6 F)-36.9 C (98.5 F)] Pulse: [66-98] Respirations: [15 PER MINUTE-29 PER MINUTE] SpO2: [90 %-99 %] O2 Delivery: Nasal Cannula Intensity Pain Scale 0-10 (Pain 1): (not recorded) Vitals: 03/19/17 1530 03/21/17 0800 03/21/17 1230 Weight: 100.3 kg (221 lb 1.9 oz) 105.2 kg (231 lb 14.8 oz) 103.2 kg (227 lb 8.2 oz) Scheduled Meds: amLODIPine (NORVASC) tablet 10 mg 10 mg Oral QDAY atorvastatin (LIPITOR) tablet 10 mg 10 mg Oral QHS bisacodyl (DULCOLAX) rectal suppository 10 mg 10 mg Rectal QDAY docusate (COLACE) oral solution 100 mg 100 mg Feeding Tube BID heparin (porcine) PF syringe 5,000 Units 5,000 Units Subcutaneous Q8H insulin aspart (NOVOLOG FLEXPEN) injection PEN 0-7 Units 0-7 Units Subcutaneous 5 X Day levETIRAcetam (KEPPRA) oral solution 1,500 mg 1,500 mg Feeding Tube QDAY melatonin tablet 3 mg 3 mg Oral QHS metoprolol tartrate (LOPRESSOR) tablet 50 mg 50 mg Oral BID milk of magnesia (CONC) oral suspension 10 mL 10 mL Feeding Tube QDAY niMODipine (NYMALIZE) 3 mg/ mL solution 30 mg 30 mg Per OG Tube Q2H nystatin (MYCOSTATIN) oral suspension 500,000 Units 500,000 Units Swish & Swallow QID QUEtiapine (SEROQUEL) tablet 50 mg 50 mg Oral BID senna/docusate (SENOKOT-S) solution 10 mL 10 mL Feeding Tube BID Continuous Infusions: PRN and Respiratory Meds:acetaminophen Q4H PRN, albuterol 0.5% Q4H PRN, fentaNYL citrate PF Q1H PRN, haloperidol Q6H PRN, hydrALAZINE Q6H PRN, ipratropium bromide Q4H PRN, labetalol (NORMODYNE; TRANDATE) injection Q10 MIN PRN, methylcellulose PRN, ondansetron Q6H PRN, pancrelipase 20,000 Units/ sodium bicarbonate 650 mg(#) PRN (Production Aide from Rx), sodium chloride 0.9% (NS) IP Dialysis PRN, sodium chloride 0.9% (NS) IP Dialysis PRN, sodium chloride 0.9 % (NS) IP Dialysis PRN Critical Care Vitals: ICP Monitoring: Hemodynamics/Oxycalcs: BP 161/89 (BP Source: Arm, Right) | Pulse 79 | Temp 36.9 C (98.4 F) | Ht 172.7 cm (68") | Wt 103.2 kg (227 lb 8.2 oz) | SpO2 97% | BMI 34.59 kg/m2 Intake/Output Summary: (Last 24 hours) Intake/Output Summary (Last 24 hours) at 03/22/17 0741 Last data filed at 03/22/17 0600 Gross per 24 hour Intake 1730 ml Output 2610 ml Net -880 ml Stool Occurrence: 1 Physical Exam: Blood pressure 161/89, pulse 79, temperature 36.9 C (98.4 F), height 172.7 cm (68"), weight 103.2 kg (227 lb 8.2 oz), SpO2 97 %. General appearance: well-developed Neurologic: Pupil exam: Size: 3 Reactivity: brisk - Corneal reflex: R - present L - present -Left face droop-improving - Cough: present - Gag reflex: present RUE: Strength: 5/5, moves on command gave a thumbs up on command RLE Strength: 5/5, moves on command LUE: Strength: 5/5, moves on command LLE: Strength: 5-/5, able to lift leg off bed, weaker than right lower leg Lungs: diminished breath sounds on left base with crackles, clear on right Pulmonary: no additional oxygen required Heart: regular rate and rhythm, S1, S2 normal Abdomen: soft, non-tender. Skull in abdomen, no palpable hematoma Extremities: extremities normal, atraumatic, no cyanosis, minimal edema Skin: Skin color, texture, turgor normal. No rashes or lesions Lab Review: Pertinent labs reviewed Medications: amLODIPine (NORVASC) tablet 10 mg 10 mg Oral QDAY atorvastatin (LIPITOR) tablet 10 mg 10 mg Oral QHS bisacodyl (DULCOLAX) rectal suppository 10 mg 10 mg Rectal QDAY docusate (COLACE) oral solution 100 mg 100 mg Feeding Tube BID heparin (porcine) PF syringe 5,000 Units 5,000 Units Subcutaneous Q8H insulin aspart (NOVOLOG FLEXPEN) injection PEN 0-7 Units 0-7 Units Subcutaneous 5 X Day levETIRAcetam (KEPPRA) oral solution 1,500 mg 1,500 mg Feeding Tube QDAY melatonin tablet 3 mg 3 mg Oral QHS metoprolol tartrate (LOPRESSOR) tablet 50 mg 50 mg Oral BID milk of magnesia (CONC) oral suspension 10 mL 10 mL Feeding Tube QDAY niMODipine (NYMALIZE) 3 mg/ mL solution 30 mg 30 mg Per OG Tube Q2H nystatin (MYCOSTATIN) oral suspension 500,000 Units 500,000 Units Swish & Swallow QID QUEtiapine (SEROQUEL) tablet 50 mg 50 mg Oral BID senna/docusate (SENOKOT-S) solution 10 mL 10 mL Feeding Tube BID Point of Care Testing: (Last 24 hours): Glucose: (!) 153 (03/22/17 0350) POC Glucose (Download): (!) 155 (03/22/17 1174) Radiology and Other Diagnostic Procedures Review: Reviewed and discussed above. Jeancarlos Menendez MD Date: 03/22/[phone] Associated attestation - Derrell Bowers MD - 03/22/2017 2:30 PM INTERVENTIONIST Formatting of this note may be different from the original. ATTESTATION I have seen, personally fully evaluated, and discussed patient with Dr Menendez and the NEICU team. I agree with the objective findings and agree with the plan of care as documented by the resident with the exceptions noted. The patient is critically ill with SAH s/p clipping, EDH s/p evacuation, ESRD c/b metabolic acidosis, pleural effusion and hypoxemia. O/e: AOx 4, in good spirit, walking with PT, unsteady gait Off oxygen, likely response to regular dialysis Add losartan 50 mg today, doxazosin 4 mg today Continue amlodipine 10 mg, metop 50 mg bid Escalate back to home anti-hypertensive regimen gradually Speech evals for swallow No further TCDs necessary OOB with PT with helmet NEICU will sign off today. Appreciate consult. I spent 30 minutes (excluding time spent performing or supervising any procedures) providing and personally directing critical care services, including reviewing imaging and laboratory results. Staff name: Derrell Bowers MD Date: 03/22/2017 * Adi Gonzalez, RT - 03/21/2017 10:39 PM INTERVENTIONIST RN placed Mr. Mayfield on 2 Lpm Nasal cannula to keep saturation above 92%. * Jarett Sultana, RN - 03/21/2017 8:30 PM INTERVENTIONIST Neurosurgery notified of pt guarding abdomen where bone flap is, his right lower quadrant of the abdomen. Neurosurgery at bedside to assess. Pt states its tender. Orders to monitor redness and site. Will continue to monitor. * Patti Mcclure - 03/21/2017 4:12 PM INTERVENTIONIST SPEECH-LANGUAGE PATHOLOGY VIDEOSWALLOW ASSESSMENT EVALUATION SUMMARY Videoswallow Summary*: Videoswallow completed this date. Moderate oropharyngeal dysphagia present 2* weakness and current mental status impacting attention to task. Silent aspiration noted with thin liquids prior to the swallow x1 secondary to early posterior bolus spillage from oral cavity. Deep penetration events noted with subsequent trials of thin liquids. High penetration noted with nectar thick liquids during the swallow and appeared to mostly clear. Pt noted to complete an independent throat clear following most penetration events , which additionally assisted with clearance of laryngeal residue. Attempted chin tuck, however did not alleviate penetration events. Please see below. RECOMMENDATIONS: 1:Pureed diet with NECTAR thick liquids. Continue ice chips only (15-20 per hour ). Please follow precautions posted at [facility]. 2:Will continue to follow for ongoing dysphagia management and cognitive evaluation as able to complete. 3:Pt will require ongoing speech services at the next level of care. Consistent supervision recommendedupon dischargeas anticipate patient'simpaired memory &attention will potentially impacttheir safety. MBSImp Scale: Lip closure for intraoral bolus containment resulted in bolus escape from the interlabial space or lateral juncture, but no extension beyond the so boarder. Bolus transport/lingual motion was with repetitive/disorganized motion of the tongue. Oral residue was a collection on oral structures. Silent aspiration noted with thin liquids prior to the swallow x1 secondary to early posterior bolus spillage from oral cavity. Initiation of the pharyngeal swallow occured as the bolus head was at the posterior laryngeal surface of the epigliottis. Soft palate elevation resulted in no bolus between the soft palate and the pharyngeal wall. Laryngeal elevation was decreased, with partial superior movement of the thyoid cartilage/ partial approximation of the arytenoids to the epigoittic petiole. Anterior hyoid excursion demonstrated partial anterior movement. Epiglottic movement Was sluggish. Laryngeal vestibular closure was incomplete, with narrow column of air/contrast noted within the laryngeal vestibule at the height of the swallow. This resulted in deep penetration events noted with subsequent trials of thin liquids. High penetration noted with nectar thick liquids during the swallow and appeared to mostly clear. Pt noted to complete an independent throat clear following most penetration events, which additionally assisted with clearance of laryngeal residue. Attempted chin tuck, however did not alleviate penetration events.Pharyngeal stripping wave was present, but diminished. Pharyngeal contraction Pharyngoesophageal segment opening was completely distended for complete duration with no obstruction of bolus flow. Tongue base retraction allowed a trace column of contrast or air between the retracted tongue base and the posterior pharyngeal wall. Pharyngeal residue was a collection of residue within or on pharyngeal structures. Swallow Recommendations* PO: Pureed, Bena Thick Liquids Swallow Strategies: Supervision During Meals Plan*: (Will continue to follow 5x per week) Prognosis*: Good NOMS Dysphagia Rating*: 3-Moderate Dysphagia -Alternative method of feeding needed. Pt takes < 50% of nutrition/hydration by mouth &/or swallow safe w/ consistent mod cueing to use compensatory strategies &/or requires max diet restriction. Penetration Aspiration Scale*: 8 - Material enters laryngeal vestibule, passes below vocal folds & no effort is made to eject Objective*Naren Dickens a 51 y.o.malewith PMH of HLD, HTN, renal failure, dialysis, and diabetes presenting from OSH after being at dialysis 03/09 when he became acutely unresponsive. CT was done at OSH and demonstrated SAH and a possible MCA aneurysm. Patient was then transferred to for further care and management. Lives With: Family Receives Help From: None Needed Psychosocial Status: Willing and Cooperative to Participate Subjective* Pain: Patient complains of pain, During activity, Patient does not rate pain Views / Seating* Views / Seating: Lateral View, Sitting at 90 Degrees Upright Barium Consist/Presentation* Presentations: Therapist Fed, Patient Fed Self Thin Liquid: 1 Tsp, Cup Bena Thick Liquid: 1 Tsp, Cup Other Consistencies: Pudding Education* Persons Educated: (Pt sleeping soundly during attempted return visit) Barriers To Learning: Cognitive Deficits, Family Not Present Interventions: Staff Educated Teaching Methods: Verbal, Printed Topics: Dysphagia Patient Response: Return Demonstration, More Instruction Required Videoswallow Goals* Goal : Pt will tolerate a pureed diet with nectar thick liquids with no change in pulmonary status. Goal : Pt will tolerate PO trials of mechanical soft/regular solids and thin liquids for possible diet upgrade with no overt s/s of aspiration. Goal : Pt will participate in a cognitive evaluation with moderate cues. Therapist: Patti SIEGELL/GAMEWELL OPERATOR Pager:[phone] Office:[phone] Date: 03/21/2017 * Conuselo Ayala, RN - 03/21/2017 3:30 PM INTERVENTIONIST Patient transported to radiology for a video swallow with this RN and transport. Patient tolerated transport and procedure without any complications. * Sharyn Rutledge - 03/21/2017 1:44 PM INTERVENTIONIST OCCUPATIONAL THERAPY PROGRESS NOTE Patient Name: Naren Mayfield Room/Bed: OL0449/01 Admitting Diagnosis: subarachnoid hemorrhage Subarachnoid bleed (HCC) Mobility Progressive Mobility Level: Walk in hallway Distance Walked (feet): 100 ft Level of Assistance: Assist X2 Assistive Device: Hand Held Time Tolerated: 11-30 minutes Activity Limited By: Weakness;Shortness of air Subjective Pertinent Dx per Physician: 51 y.o. male with PMH of HLD, HTN, renal failure, dialysis, and diabetes presenting from OSH after being at dialysis 03/09 when he became acutely unresponsive. CT was done at OSH and demonstrated SAH and a possible MCA aneurysm. Patient was then transferred to for further care and management. Precautions: Falls (helmet when out of bed) Pain / Complaints: Patient has no c/o pain Comments: Patient in bed at start of session. Left in chair with TABS alarm set , delores strap in place, call light within reach and RN notified of patient status. Objective Psychosocial Status: Willing and Cooperative to Participate Persons Present: PT (OT student) ADL's Where Assessed: Chair Bathing Assist: Minimal Assist Bathing Deficits: Verbal Cueing;Supervision/Safety;Increased Time to Complete;L Upper Leg;R Upper Leg;L Lower Leg Including Foot;R Lower Leg Including Foot LE Dressing Assist: Moderate Assist LE Dressing Deficits: Setup;Verbal Cueing;Supervision/Safety;Increased Time To Complete;Don/Doff R Sock;Don/Doff L Sock Functional Transfer Assist: Moderate Assist (x2) Comment: Patient required minimal assist of 1 for supine to sit transfer. Stood and ambulated with moderate assist of 2, one person for line management and one person for chair follow. Patient performed LE bathing in chair with cues and minimal assist for thoroughness. Doffed socks using feet only. Required repeated encouragement and verbal cues for donning socks using hands and leaning forward. Activity Tolerance Endurance: 3/5 Tolerates 25-30 Minutes Exercise w/Multiple Rests Sitting Balance: 3/5 Sits w/o UE Support Up to 30 Seconds Cognition Overall Cognitive Status: Impaired Problem Solving: Decreased Judgment/Safety Education Persons Educated: Patient Teaching Methods: Verbal Instruction Patient Response: Verbalized Understanding Topics: Role of OT, Goals for Therapy Goal Formulation: With Patient (Simultaneous filing. User may not have seen previous data.) Assessment Assessment: Decreased ADL Status;Decreased Safe/Judg during ADL;Decreased Endurance;Decreased Self-Care Trans;Decreased High-Level ADLs Prognosis: Good;w/Cont OT s/p Acute Discharge Goal Formulation: Patient AM-PAC 6 Clicks Daily Activity Inpatient Putting on and taking off regular lower body clothes?: A Lot Bathing (Including washing, rinsing, drying): A Lot Toileting, which includes using toilet, bedpan, or urinal: A Lot Putting on and taking off regular upper body clothing: A Little Taking care of personal grooming such as brushing teeth: A Little Eating meals?: Total Daily Activity Raw Score: 13 Standardized (t-scale) score: 32.03 CMS 0-100% Score: 63.03 CMS G Code Modifier: CL Plan Treatment Interventions: ADL Retraining;Functional Transfer Training;Endurance Training;Patient/Family Training;Equipment Evaluation/Education;Compensatory Technique Education OT Frequency: 5x/week Next session: Split therapy sessions to work on ADLs at sink with focus on safety awareness and coordination. ADL Goals Patient Will Perform Grooming: Standing at Sink, w/ Stand By Assist Functional Transfer Goals Pt Will Perform All Functional Transfers: w/ Stand By Assist Pt Will Transfer To Bedside Commode: Met OT Discharge Recommendations OT Discharge Recommendations: Inpatient Setting Equipment Recommendations: Too early to be determined Therapist: MIRNA Westfall/Omar [id number] Date: 03/21/2017 * Carole Sloan, PT - 03/21/2017 1:44 PM INTERVENTIONIST PHYSICAL THERAPY PROGRESS NOTE MOBILITY: Mobility Progressive Mobility Level: Walk in hallway Distance Walked (feet): 100 ft Level of Assistance: Assist X2 Assistive Device: Hand Held Time Tolerated: 11-30 minutes Activity Limited By: Weakness;Shortness of air SUBJECTIVE: Subjective Significant hospital events: 51 y.o. male presenting from OSH after being at dialysis 03/09 when he became acutely unresponsive. CT was done at OSH and demonstrated SAH and a possible MCA aneurysm. Patient was then transferred to for further care and management. 03/10 s/p craniotomy for aneurysm clipping; returned emergently to OR for epidural bleed and hemicraniectomy Mental / Cognitive Status: Cooperative;Inconsistent with Command Following;Alert Persons Present: OT;Student Pain: Patient complains of pain;During activity;Patient does not rate pain Pain Location: Headache Pain Description: Aching Pain Interventions: Patient agrees to participate in therapy;Patient assisted into position of comfort;Patient pre-medicated Comments: No bone flap R side Precautions: Helmet on when Out of Bed Comments: PMH: HLD, HTN, renal failure, dialysis, and diabetes BED MOBILITY/TRANSFERS: Bed Mobility/Transfers Transfer Type: Sit to Stand Transfer: Assistance Level: To/From;Bed;Minimal Assist;x2 People Transfer: Assistive Device: Hand Hold Assist Transfers: Type Of Assistance: Verbal Cues;For Balance;For Safety Considerations End Of Activity Status: Nursing Notified;Instructed Patient to Request Assist with Mobility;Instructed Patient to Use Call Light;In Bed (bed alarm on) GAIT: Gait Gait Distance: 50 feet (x2 with seated rest break) Gait: Assistance Level: Moderate Assist;x2 People Gait: Assistive Device: Hand Hold Assist Gait: Descriptors: Pace: Slow;Pathway deviations;Loss of balance;Variable step length;Scissoring;Step-To Gait Activity Limited By: Complaint of Fatigue;SOA EDUCATION: Education Persons Educated: Patient Patient Barriers To Learning: Cognitive Deficits Interventions: Repetition of Instructions Teaching Methods: Verbal Instruction Patient Response: Verbalized Understanding;More Instruction Required Topics: Plan/Goals of PT Interventions;Mobility Progression;Safety Awareness;Up with Assist Only;Importance of Increasing Activity;Recommend Continued Therapy ASSESSMENT/PROGRESS: Assessment/Progress Impaired Mobility Due To: Decreased Strength;Impaired Balance;Cognitive Deficits ;Safety Concerns;Decreased Activity Tolerance Assessment/Progress: Should Improve w/ Continued PT AM-PAC 6 Clicks Basic Mobility Inpatient Turning from your back to your side while in a flat bed without using bed rails : A Little Moving from lying on your back to sitting on the side of a flatbed without using bedrails : A Little Moving to and from a bed to a chair (including a wheelchair): Total Standing up from a chair using your arms (e.g. wheelchair, or bedside chair): Total To walk in hospital room: Total Climbing 3-5 steps with a railing: Total Raw Score: 10 Standardized (T-scale) Score: 28.13 Basic Mobility CMS 0-100%: 71.92 CMS G Code Modifier for Basic Mobility: CL GOALS: Goals Goal Formulation: With Patient Time For Goal Achievement: 7 days Pt Will Go Supine To/From Sit: w/ Minimal Assist Pt Will Transfer Bed/Chair: w/ Minimal Assist, w/ Assist of 2 Pt Will Transfer Sit to Stand: w/ Minimal Assist Pt Will Ambulate: 51-100 Feet, w/ No Device Pt Will Achieve Sitting Balance: Static Sitting Balance, Dynamic Sitting Balance , No UE Support, Minimal Assist PLAN: Plan Treatment Interventions: Mobility Training;Strengthening;Balance Activities; Coordination Training;Endurance Training;Neuromuscular Reeducation Plan Frequency: 5 Days per Week Comments: increase ambulation; standing balance exercises RECOMMENDATIONS: PT Discharge Recommendations PT Discharge Recommendations: Inpatient Setting;Recommend Physical Medicine and Rehabilitation Consult to address most appropriate level of rehabilitation placement Therapist: Carole Sloan, PT Date: 03/21/2017 * Tracie Mitchell MD - 03/21/2017 1:15 PM INTERVENTIONIST Formatting of this note may be different from the original. Renal Progress Note Name: Naren Mayfield Today's Date: 03/21/2017 Admission Date: 03/09/2017 LOS: 12 days Assessment and Plan Principal Problem: 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HCC) Active Problems: IVH (intraventricular hemorrhage) (HCC) Intraparenchymal hematoma of brain (HCC) Subarachnoid bleed (HCC) Naren Mayfield is a 51 y.o. male with Subarachnoid hemorrhage s/p clipping ESRD on dialysis HTN: MAP goal>80 per neuro team Hyperphosphatemia: moderate, should improve with dialysis Metabolic Acidosis - this has corrected with dialysis, but continues to have high anion gap Plan Dialysis today I examined him on dialysis Plan for 2 L fluid removal which he is tolerating well so far Will maintain MAP>90 per neuro team Tracie Mitchell MD Pager [phone] Subjective Naern Mayfield is a 51 y.o. male. Examined on dialysis. Medications MEDS amLODIPine 10 mg Oral QDAY atorvastatin 10 mg Oral QHS bisacodyl 10 mg Rectal QDAY docusate 100 mg Feeding Tube BID heparin (porcine) 5,000 Units Subcutaneous Q8H insulin aspart 0-7 Units Subcutaneous 5 X Day levETIRAcetam 1,500 mg Feeding Tube QDAY melatonin 3 mg Oral QHS metoprolol tartrate 50 mg Oral BID milk of magnesia (CONC) 10 mL Feeding Tube QDAY niMODipine 30 mg Per OG Tube Q2H nystatin 500,000 Units Swish & Swallow QID QUEtiapine 50 mg Oral BID senna/docusate 10 mL Feeding Tube BID IV MEDS Prn acetaminophen Q4H PRN 650 mg at 03/21/17 0024, albuterol 0.5% Q4H PRN, fentaNYL citrate PF Q1H PRN 50 mcg at 03/21/17 1226, haloperidol Q6H PRN 5 mg at 03/21/17 0542, hydrALAZINE Q6H PRN 20 mg at 03/21/17 0650, ipratropium bromide Q4H PRN, labetalol (NORMODYNE; TRANDATE) injection Q10 MIN PRN 20 mg at 03/21/17 0227, methylcellulose PRN 1 drop at 03/20/17 1623, ondansetron Q6H PRN , pancrelipase 20,000 Units/ sodium bicarbonate 650 mg(#) PRN (Production Aide from Rx) , sodium chloride 0.9% (NS) IP Dialysis PRN, sodium chloride 0.9% (NS) IP Dialysis PRN 300 mL at 03/21/17 0830, sodium chloride 0.9% (NS) IP Dialysis PRN Physical Exam Vital Signs: Last Filed In 24 Hours Vital Signs: 24 Hour Range BP: 195/76 (03/21 1245) Temp: 36.4 C (97.6 F) (03/21 1230) Pulse: 87 (03/21 1300) Respirations: 21 PER MINUTE (03/21 1300) SpO2: 93 % (03/21 1300) O2 Delivery: None (Room Air) (03/21 1245) SpO2 Pulse: 87 (03/21 1300) BP: (145-201)/(56-80) ABP: (154-213)/(59-81) Temp: [36.4 C (97.6 F)-37.1 C (98.7 F)] Pulse: [66-98] Respirations: [15 PER MINUTE-31 PER MINUTE] SpO2: [90 %-96 %] O2 Delivery: None (Room Air) Intensity Pain Scale 0-10 (Pain 1): 9 (03/21/17 1226) Intake/Output Summary (Last 24 hours) at 03/21/17 1315 Last data filed at 03/21/17 1230 Gross per 24 hour Intake 1391 ml Output 2620 ml Net -1229 ml Vitals: 03/19/17 1530 03/21/17 0800 03/21/17 1230 Weight: 100.3 kg (221 lb 1.9 oz) 105.2 kg (231 lb 14.8 oz) 103.2 kg (227 lb 8.2 oz) Gen: pleasant CV: no JVD, S1 and S2 normal, no rubs, murmurs or gallops Pulm: decreased breath sounds at bases GI: BS+ x4, non-tender to palpation Neuro: sedated Ext: no edema Skin: no rash Labs Recent Labs 03/19/1741703/20/17 0428 03/21/17 0340 NA 136* 135* 137 K 3.8 3.6 3.6 CL 94* 95* 94* CO2 21 22 17* GAP 21* 18* 26* BUN 60* 45* 75* CR 6.68* 5.83* 7.98* GLU 166* 132* 140* CA 10.0 9.9 10.7* MG 2.3 2.2 2.5 PO4 6.2* 5.3* 7.0* Recent Labs 03/19/1741703/20/17 0428 03/21/17 0340 WBC 7.4 8.6 8.6 HGB 9.3* 9.7* 10.2* HCT 27.0* 28.6* 29.9* PLTCT 218 270 286 Estimated Creatinine Clearance: 13 mL/min (based on Cr of 7.98). Vitals: 03/19/17 1530 03/21/17 0800 03/21/17 1230 Weight: 100.3 kg (221 lb 1.9 oz) 105.2 kg (231 lb 14.8 oz) 103.2 kg (227 lb 8.2 oz) Recent Labs 03/20/17 0428 03/21/17 0340 PHART 7.38 7.31* PO2ART 85 65* Tracie Mitchell MD Pager [phone] * Jeancarlos Menendez MD - 03/21/2017 7:22 AM INTERVENTIONIST Formatting of this note may be different from the original. Neuroscience Critical Care Progress Note Naren Mayfield Admission Date: 03/09/2017 LOS: 12 days ASSESSMENT/PLAN Patient Active Problem List Diagnosis Date Noted IVH (intraventricular hemorrhage) ([facility]) 03/09/2017 Intraparenchymal hematoma of brain (HCC) 03/09/2017 Subarachnoid bleed ([facility]) 03/09/2017 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[facility]) 03/09/2017 Added automatically from request for surgery [id number] Naren Mayfieldis a 51 y.o.malewith PMH of HLD, HTN, renal failure, dialysis, and diabetes presenting from OSH after being at dialysis 03/09when he became acutely unresponsive. CT was done at OSH and demonstrated SAH and a possible MCA aneurysm. Patient was then transferred to for further care and management. Hospital and ICU course: 03/09: Admit NEICU. CTA. Angiogram 03/10: To OR for clipping, emergent return to OR due to epidural bleed kept intubated, hemicraniectomy 03/11: Dialysis, remains intubated. 03/12: Sheaths to be d/c'd today corpak placed. wean trial today 03/13: MS change, vasospasms on CTA 03/14: MS improved, PLEDs on VEEG 03/15: Extubated, VEEG stopped 03/16: Attempting to wean sedation 03/17: Face shield for breathing trouble, Pulm to assist with left lower lobe effusion 03/21: Room air, vasospasm watch Neuro: IPH rt temporal lobe, SAH rt frontotemporal lobe, epidural bleed, s/p right hemicraniectomy Escobar and Moore Grade (on admission): 4 Modified Stone Grade (on admission): 3 Evidence of hydrocephalus:No EVD at: N/A Sodium Goal:135-145 - 03/09 CTA Head: 1. Large saccular aneurysm projecting laterally from the right MCA bifurcation measuring up to 1.5 cm in maximum diameter. No significant change in surrounding right anterior temporal parenchymal hematoma as well as scattered right convexity subarachnoid hemorrhage. Small amount of layering blood products are noted within the occipital horn of the left lateral ventricle. No progressive ventricular distention to suggest hydrocephalus. Moderate nonspecific white matter disease, likely due to chronic microvascular ischemia. 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 - 03/10 S/p Clipping and craniectomy - 03/13 CTA head: 1. Mild increased smooth narrowing of the intracranial arterial vasculature, most notably within the A1 segments, consistent with mild vasospasm. No high-grade intracranial arterial stenosis is identified. 2. 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 3. Increased conspicuity of moderate sized infarct/cytotoxic edema within the anterior right temporal lobe. 4. Persistent mild transcranial herniation at the right pterional craniectomy site with improving intracranial mass effect. 5. Improving localized subarachnoid hemorrhage within the right sylvian fissure.6. Bony thinning and probable dehiscence of the right jugular bulb sigmoid plate. - 03/13 CT perfusion: 1. Scattered small and moderate sized mismatch perfusion defects within the bilateral cerebral and cerebellar hemispheres, likely related to aforementioned vasospasm. 2. Moderate-sized matched perfusion defect within the anterior right temporal lobe, consistent with completed infarct. This is underestimated on the quantitative RAPID software. -03/14 VEEG- Right PLEDs, severe diffuse slowing -03/15 VEEG- Right PLEDs, severe diffuse slowing Extubated. Follows commands and able to speak, Left face droop, weakness in left leg-improving - UDS + amphetamines on admission - SBP Goal 130-200 to help with vasospasms - Nimodipine [id number] - Continue Keppra 1500mg daily after dialysis - TCDs Daily - Neuro-ICU monitoring, neurochecks q 2 hrs Sedation/Pain Management: Yes -ICU delirium - Stop Precedex - Fentanyl PRN - Seroquel BID 50mg - Haldol prn - Melatonin 3mg Qhs - Delirium protocol Cardiac: HTN, HLD - SBP goal: 130-180 - MAP goal > 65 - EKG with SR, LVH - 03/11 Restart BACK TUFTER minoxidil and metoprolol BID - 03/11 ECHO EF 55% - 03/13 Stop minoxidil - 03/19: restart metoprolol 50mg BID - 03/20: restart amlodipine 10mg qday -PRN labetalol and hyrdralazine Respiratory: Pleural effusion Date of Intubation: 03/09/17 Date of extubation: 03/15/17 Reason: Airway protection - OSH CXR with near complete opacification of left lung, likely pleural fluid. CXR at slightly improved - 03/10 CXR: Large left pleural effusion and left lung atelectasis. Slight progression of right basilar atelectasis. Cardiomegaly. - PaO2 goal >100, Spo2 goal >95%, PCO2 goal 35-40 torr, chest physiotherapy, bronchotherapy, PD& V q 6 hrs - Pulmonary team consulted for plural effusion - 1.7L removed from pleural effusion 03/14 - Bloody and exudative fluid - Cytology pending - Pleural effusion remains- Pulmonary consulted - Pulmonary toilet/physio GI: - Feeding: tube feeds novasource renal 40ml/hr water bolus 30ml q4 -Fiber added to tube feeds - neurosurgery bowel regimen, ensure daily BM -Speech therapy eval-swallow study this afternoon Heme: - assess for coagulopathy, maintain platelets above 100k, INR <1.5 - TEG did not identify any decreased clotting problems ID: - aim for normothermia, Temp <38.3 celsius, normothermia protocol if febrile Renal: ESRDon dialysis - Renal consult - dialysis 03/21 plan for 3L - Do not want to lower bp by pulling too much fluid as at risk for vasospasm. Map goal of >80 during dialysis - Aim for normovolemia Intake/Output Summary (Last 24 hours) at 03/21/17 0722 Last data filed at 03/21/17 0400 Gross per 24 hour Intake 972 ml Output 460 ml Net 512 ml Endocrine: DM - 03/12 BG on chem 151- will start accuchecks x5 daily with SSI - 03/12 A1C-5.2 - Blood glucose goal 100-180mg/dl FEN: - IVF: No maintenance fluid - Magnesium goal >2.0, i-Jarred goal > 1.0, Potassium goal >4.0 mEq/L Prophylaxis Review: A) GI:[id number] B) Lines:2 peripheral lines and Right arterial line C) Urinary Catheter:No D) Antibiotic Usage:No E) VTE:SCDs F) Isolation:NA G)Seizures:Keppra I) Restraints: Patient assessed for need for restraints. Disposition/Family:NEICU Primary service:NSG Consults: NEICU, Renal, Pulmonary __ SUBJECTIVE Naren Mayfield is a 51 y.o. male. Overnight Events:Patient states he did not sleep that well last night. He hates having to wear restraints at night, but knows he does pull at lines and they are needed. OBJECTIVE Vital Signs: Last Filed Vital Signs: 24 Hour Range ABP: 208/78 (03/21 700) Temp: 36.8 C (98.3 F) (03/21 0400) Pulse: 78 (03/21 0700) Respirations: 31 PER MINUTE (03/21 700) SpO2: 96 % (03/21 700) O2 Delivery: None (Room Air) (03/21 700) ABP: (160-213)/(59-81) Temp: [36.5 C (97.7 F)-37.1 C (98.7 F)] Pulse: [66-89] Respirations: [10 PER MINUTE-31 PER MINUTE] SpO2: [90 %-96 %] O2 Delivery: None (Room Air) Intensity Pain Scale 0-10 (Pain 1): 4 (03/21/17 0600) Vitals: 03/14/17 0730 03/19/17 1130 03/19/17 1530 Weight: 115.9 kg (255 lb 8.2 oz) 103.3 kg (227 lb 11.8 oz) 100.3 kg (221 lb 1.9 oz) Scheduled Meds: amLODIPine (NORVASC) tablet 10 mg 10 mg Oral QDAY atorvastatin (LIPITOR) tablet 10 mg 10 mg Oral QHS bisacodyl (DULCOLAX) rectal suppository 10 mg 10 mg Rectal QDAY docusate (COLACE) oral solution 100 mg 100 mg Feeding Tube BID heparin (porcine) PF syringe 5,000 Units 5,000 Units Subcutaneous Q8H insulin aspart (NOVOLOG FLEXPEN) injection PEN 0-7 Units 0-7 Units Subcutaneous 5 X Day levETIRAcetam (KEPPRA) oral solution 1,500 mg 1,500 mg Feeding Tube QDAY metoprolol tartrate (LOPRESSOR) tablet 50 mg 50 mg Oral BID milk of magnesia (CONC) oral suspension 10 mL 10 mL Feeding Tube QDAY niMODipine (NYMALIZE) 3 mg/ mL solution 30 mg 30 mg Per OG Tube Q2H nystatin (MYCOSTATIN) oral suspension 500,000 Units 500,000 Units Swish & Swallow QID QUEtiapine (SEROQUEL) tablet 50 mg 50 mg Oral BID senna/docusate (SENOKOT-S) solution 10 mL 10 mL Feeding Tube BID Continuous Infusions: PRN and Respiratory Meds:acetaminophen Q4H PRN, albuterol 0.5% Q4H PRN, fentaNYL citrate PF Q1H PRN, haloperidol Q6H PRN, hydrALAZINE Q6H PRN, ipratropium bromide Q4H PRN, labetalol (NORMODYNE; TRANDATE) injection Q10 MIN PRN, methylcellulose PRN, ondansetron Q6H PRN, pancrelipase 20,000 Units/ sodium bicarbonate 650 mg(#) PRN (Production Aide from Rx), sodium chloride 0.9% (NS) IP Dialysis PRN, sodium chloride 0.9% (NS) IP Dialysis PRN, sodium chloride 0.9 % (NS) IP Dialysis PRN Critical Care Vitals: ICP Monitoring: Hemodynamics/Oxycalcs: BP 200/88 (BP Source: Arm, Right) | Pulse 78 | Temp 36.8 C (98.3 F) | Ht 172.7 cm (68") | Wt 100.3 kg (221 lb 1.9 oz) | SpO2 96% | BMI 33.62 kg/m2 Intake/Output Summary: (Last 24 hours) Intake/Output Summary (Last 24 hours) at 03/21/17 0722 Last data filed at 03/21/17 0400 Gross per 24 hour Intake 972 ml Output 460 ml Net 512 ml Stool Occurrence: 1 Physical Exam: Blood pressure 200/88, pulse 78, temperature 36.8 C (98.3 F), height 172.7 cm (68"), weight 100.3 kg (221 lb 1.9 oz), SpO2 96 %. General appearance: well-developed Neurologic: Pupil exam: Size: 3 Reactivity: brisk - Corneal reflex: R - present L - present -Left face droop - Cough: weak - Gag reflex: present RUE: Strength: 5/5, moves on command gave a thumbs up on command RLE Strength: 5/5, moves on command LUE: Strength: 5/5, moves on command LLE: Strength: 4+/5, able to lift leg off bed, weaker than right lower leg Lungs: diminished breath sounds on left base with crackles, clear on right Pulmonary: no additional oxygen required Heart: regular rate and rhythm, S1, S2 normal Abdomen: soft, non-tender. Skull in abdomen, no palpable hematoma Extremities: extremities normal, atraumatic, no cyanosis, minimal edema Skin: Skin color, texture, turgor normal. No rashes or lesions Lab Review: Pertinent labs reviewed Medications: amLODIPine (NORVASC) tablet 10 mg 10 mg Oral QDAY atorvastatin (LIPITOR) tablet 10 mg 10 mg Oral QHS bisacodyl (DULCOLAX) rectal suppository 10 mg 10 mg Rectal QDAY docusate (COLACE) oral solution 100 mg 100 mg Feeding Tube BID heparin (porcine) PF syringe 5,000 Units 5,000 Units Subcutaneous Q8H insulin aspart (NOVOLOG FLEXPEN) injection PEN 0-7 Units 0-7 Units Subcutaneous 5 X Day levETIRAcetam (KEPPRA) oral solution 1,500 mg 1,500 mg Feeding Tube QDAY metoprolol tartrate (LOPRESSOR) tablet 50 mg 50 mg Oral BID milk of magnesia (CONC) oral suspension 10 mL 10 mL Feeding Tube QDAY niMODipine (NYMALIZE) 3 mg/ mL solution 30 mg 30 mg Per OG Tube Q2H nystatin (MYCOSTATIN) oral suspension 500,000 Units 500,000 Units Swish & Swallow QID QUEtiapine (SEROQUEL) tablet 50 mg 50 mg Oral BID senna/docusate (SENOKOT-S) solution 10 mL 10 mL Feeding Tube BID Point of Care Testing: (Last 24 hours): Glucose: (!) 140 (03/21/17 0340) POC Glucose (Download): (!) 150 (03/21/17341) Radiology and Other Diagnostic Procedures Review: Reviewed and discussed above. Jeancarlos Menendez MD Date: 03/21/[phone] Associated attestation - Derrell Bowers MD - 03/21/2017 12:29 PM INTERVENTIONIST Formatting of this note may be different from the original. ATTESTATION I have seen, personally fully evaluated, and discussed patient with Dr Menendez and the NCICU team. I agree with the objective findings and agree with the plan of care as documented by the resident with the exceptions noted. The patient is critically ill with SAH s/p clipping, EDH s/p evacuation, ESRD c/b metabolic acidosis, pleural effusion and hypoxemia. Off oxygen, likely response to regular dialysis Amlodipine 10 mg, metoprolol 50 mg bid Cont speech evals for swallow TCD today for vasospasm monitoring. OOB with PT with helmet Reduce UF in HD to 2 L to avoid volume contraction intravascularly in vasospasm risk period I spent 30 minutes (excluding time spent performing or supervising any procedures) providing and personally directing critical care services, including reviewing imaging and laboratory results. Staff name: Derrell Bowers MD Date: 03/21/2017 * Sharyn Rutledge - 03/20/2017 1:43 PM INTERVENTIONIST OCCUPATIONAL THERAPY PROGRESS NOTE Patient Name: Naren Mayfield Room/Bed: [place] [address] Admitting Diagnosis: subarachnoid hemorrhage Subarachnoid bleed (HCC) Mobility Progressive Mobility Level: Walk in room Distance Walked (feet): 25 ft Level of Assistance: Assist X2 Assistive Device: Hand Held Time Tolerated: 11-30 minutes Activity Limited By: No limitations Subjective Pertinent Dx per Physician: 51 y.o. male with PMH of HLD, HTN, renal failure, dialysis, and diabetes presenting from OSH after being at dialysis 03/09 when he became acutely unresponsive. CT was done at OSH and demonstrated SAH and a possible MCA aneurysm. Patient was then transferred to for further care and management. Precautions: Falls (helmet when out of bed) Pain / Complaints: Patient has no c/o pain Comments: Patient in bed at start of session. Patient left in chair with TABS alarm set, delores strap in place, call light within reach and RN notified of patient status. Objective Psychosocial Status: Willing and Cooperative to Participate Persons Present: PT (OT student) ADL's Where Assessed: Standing at Sink Grooming Assist: Minimal Assist Grooming Deficits: Verbal Cueing;Supervision/Safety;Increased Time To Complete; Teeth Care Functional Transfer Assist: Moderate Assist (x2) Comment: Performed supine to sit with minimal assistance. Stood from bed and ambulated to sink with minimal-moderate assist of 2. Patient required verbal cueing throughout ambulation to focus on his walking for safety. Patient performed grooming at sink with verbal cues for attention to task and minimal assist with opening mouth wash. Activity Tolerance Endurance: 2/5 Tolerates 10-20 Minutes Exercise w/Multiple Rests Sitting Balance: 2/5 Supports Self Independently w/Both UEs Cognition Overall Cognitive Status: Impaired Expression: Increased Time for Expression Problem Solving: Decreased Judgment/Safety Cognition Comment: Educated patient on purpose of helmet and safety concerns with touching right side of head when not wearing helmet. Will need reinforcement. Education Persons Educated: Patient Teaching Methods: Verbal Instruction;Demonstration Patient Response: Return Demonstration;More Instruction Required Topics: Role of OT, Goals for Therapy;Home safety;ADL Compensatory Techniques Goal Formulation: With Patient (Simultaneous filing. User may not have seen previous data.) Assessment Assessment: Decreased ADL Status;Decreased Endurance;Decreased Safe/Judg during ADL;Decreased Cognition;Decreased Self-Care Trans;Decreased High-Level ADLs Prognosis: Good;w/Cont OT s/p Acute Discharge Goal Formulation: Patient AM-PAC 6 Clicks Daily Activity Inpatient Putting on and taking off regular lower body clothes?: A Lot Bathing (Including washing, rinsing, drying): A Lot Toileting, which includes using toilet, bedpan, or urinal: A Lot Putting on and taking off regular upper body clothing: A Little Taking care of personal grooming such as brushing teeth: A Little Eating meals?: Total Daily Activity Raw Score: 13 Standardized (t-scale) score: 32.03 CMS 0-100% Score: 63.03 CMS G Code Modifier: CL Plan Treatment Interventions: ADL Retraining;Functional Transfer Training;Endurance Training;Cognitive Reorientation;Patient/Family Training;Equipment Evaluation/ Education;Compensatory Technique Education OT Frequency: 5x/week Next session: Split therapy session. Work on standing at sink for ADLs. ADL Goals Patient Will Perform Grooming: in Chair, w/ Stand By Assist Functional Transfer Goals Pt Will Perform All Functional Transfers: w/ Stand By Assist Pt Will Transfer To Bedside Commode: Met OT Discharge Recommendations OT Discharge Recommendations: Inpatient Setting Equipment Recommendations: Too early to be determined Therapist: Sharyn Monroy, OTR/L [id number] Date: 03/20/2017 * Carole Sloan, PT - 03/20/2017 1:42 PM INTERVENTIONIST PHYSICAL THERAPY PROGRESS NOTE MOBILITY: Mobility Progressive Mobility Level: Walk in room Distance Walked (feet): 25 ft Level of Assistance: Assist X2 Assistive Device: Hand Held Time Tolerated: 11-30 minutes Activity Limited By: No limitations SUBJECTIVE: Subjective Significant hospital events: 51 y.o. male presenting from OSH after being at dialysis 03/09 when he became acutely unresponsive. CT was done at OSH and demonstrated SAH and a possible MCA aneurysm. Patient was then transferred to for further care and management. 03/10 s/p craniotomy for aneurysm clipping; returned emergently to OR for epidural bleed and hemicraniectomy Mental / Cognitive Status: Cooperative;Inconsistent with Command Following;Alert Persons Present: OT;Student Pain: Patient complains of pain;During activity;Patient does not rate pain Pain Location: Headache Pain Description: Aching Pain Interventions: Patient agrees to participate in therapy;Patient assisted into position of comfort;Patient pre-medicated Comments: No bone flap R side Precautions: Helmet on when Out of Bed Comments: PMH: HLD, HTN, renal failure, dialysis, and diabetes BED MOBILITY/TRANSFERS: Bed Mobility/Transfers Transfer Type: Sit to Stand Transfer: Assistance Level: To/From;Bed;Minimal Assist;x2 People Transfer: Assistive Device: Hand Hold Assist Transfers: Type Of Assistance: Verbal Cues;For Balance;For Safety Considerations End Of Activity Status: Nursing Notified;Instructed Patient to Request Assist with Mobility;Instructed Patient to Use Call Light;In Bed (bed alarm on) GAIT: Gait Gait Distance: 30 feet Gait: Assistance Level: Minimal Assist;x2 People Gait: Assistive Device: Hand Hold Assist Gait: Descriptors: Pace: Slow;Pathway deviations;Loss of balance;Variable step length Activity Limited By: Complaint of Fatigue ACTIVITY/EXERCISE: Activity / Exercise Stand At Bedside : 5 minutes Stand At Bedside Assist: Minimal Assist Comments: Patient making significant mobility improvement, but continues to be impulsive and have poor safety judgement. EDUCATION: Education Persons Educated: Patient Patient Barriers To Learning: Cognitive Deficits Interventions: Repetition of Instructions Teaching Methods: Verbal Instruction Patient Response: Verbalized Understanding;More Instruction Required Topics: Plan/Goals of PT Interventions;Mobility Progression;Safety Awareness;Up with Assist Only;Importance of Increasing Activity;Recommend Continued Therapy ASSESSMENT/PROGRESS: Assessment/Progress Impaired Mobility Due To: Decreased Strength;Impaired Balance;Cognitive Deficits ;Safety Concerns;Decreased Activity Tolerance Assessment/Progress: Should Improve w/ Continued PT AM-PAC 6 Clicks Basic Mobility Inpatient Turning from your back to your side while in a flat bed without using bed rails : A Little Moving from lying on your back to sitting on the side of a flatbed without using bedrails : A Little Moving to and from a bed to a chair (including a wheelchair): Total Standing up from a chair using your arms (e.g. wheelchair, or bedside chair): Total To walk in hospital room: Total Climbing 3-5 steps with a railing: Total Raw Score: 10 Standardized (T-scale) Score: 28.13 Basic Mobility CMS 0-100%: 71.92 CMS G Code Modifier for Basic Mobility: CL GOALS: Goals Goal Formulation: With Patient Time For Goal Achievement: 7 days Pt Will Go Supine To/From Sit: w/ Minimal Assist Pt Will Transfer Bed/Chair: w/ Minimal Assist, w/ Assist of 2 Pt Will Transfer Sit to Stand: w/ Minimal Assist Pt Will Ambulate: 51-100 Feet, w/ No Device Pt Will Achieve Sitting Balance: Static Sitting Balance, Dynamic Sitting Balance , No UE Support, Minimal Assist PLAN: Plan Treatment Interventions: Mobility Training;Strengthening;Balance Activities; Coordination Training;Endurance Training;Neuromuscular Reeducation Plan Frequency: 5 Days per Week Comments: increase ambulation; decrease assist with transfers RECOMMENDATIONS: PT Discharge Recommendations PT Discharge Recommendations: Inpatient Setting;Recommend Physical Medicine and Rehabilitation Consult to address most appropriate level of rehabilitation placement Therapist: Carole Sloan, PT Date: 03/20/2017 * Jeancarlos Menendez MD - 03/20/2017 11:24 AM INTERVENTIONIST Formatting of this note may be different from the original. Neuroscience Critical Care Progress Note Naren Mayfield Admission Date: 03/09/2017 LOS: 11 days ASSESSMENT/PLAN Patient Active Problem List Diagnosis Date Noted IVH (intraventricular hemorrhage) (HCC) 03/09/2017 Intraparenchymal hematoma of brain (HCC) 03/09/2017 Subarachnoid bleed (HCC) 03/09/2017 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HCC) 03/09/2017 Added automatically from request for surgery [id number] Naren Mayfieldis a 51 y.o.malewith PMH of HLD, HTN, renal failure, dialysis, and diabetes presenting from OSH after being at dialysis 03/09when he became acutely unresponsive. CT was done at OSH and demonstrated SAH and a possible MCA aneurysm. Patient was then transferred to for further care and management. Hospital and ICU course: 03/09: Admit NEICU. CTA. Angiogram 03/10: To OR for clipping, emergent return to OR due to epidural bleed kept intubated, hemicraniectomy 03/11: Dialysis, remains intubated. 03/12: Sheaths to be d/c'd today corpak placed. wean trial today 03/13: MS change, vasospasms on CTA 03/14: MS improved, PLEDs on VEEG 03/15: Extubated, VEEG stopped 03/16: Attempting to wean sedation 03/17: Face shield for breathing trouble, Pulm to assist with left lower lobe effusion Neuro: IPH rt temporal lobe, SAH rt frontotemporal lobe, epidural bleed, s/p right hemicraniectomy Escobar and Moore Grade (on admission): 4 Modified Stone Grade (on admission): 3 Evidence of hydrocephalus:No EVD at: N/A Sodium Goal:135-145 - 03/09 CTA Head: 1. Large saccular aneurysm projecting laterally from the right MCA bifurcation measuring up to 1.5 cm in maximum diameter. No significant change in surrounding right anterior temporal parenchymal hematoma as well as scattered right convexity subarachnoid hemorrhage. Small amount of layering blood products are noted within the occipital horn of the left lateral ventricle. No progressive ventricular distention to suggest hydrocephalus. Moderate nonspecific white matter disease, likely due to chronic microvascular ischemia. 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 - 03/10 S/p Clipping and craniectomy - 03/13 CTA head: 1. Mild increased smooth narrowing of the intracranial arterial vasculature, most notably within the A1 segments, consistent with mild vasospasm. No high-grade intracranial arterial stenosis is identified. 2. 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 3. Increased conspicuity of moderate sized infarct/cytotoxic edema within the anterior right temporal lobe. 4. Persistent mild transcranial herniation at the right pterional craniectomy site with improving intracranial mass effect. 5. Improving localized subarachnoid hemorrhage within the right sylvian fissure.6. Bony thinning and probable dehiscence of the right jugular bulb sigmoid plate. - 03/13 CT perfusion: 1. Scattered small and moderate sized mismatch perfusion defects within the bilateral cerebral and cerebellar hemispheres, likely related to aforementioned vasospasm. 2. Moderate-sized matched perfusion defect within the anterior right temporal lobe, consistent with completed infarct. This is underestimated on the quantitative RAPID software. -03/14 VEEG- Right PLEDs, severe diffuse slowing -03/15 VEEG- Right PLEDs, severe diffuse slowing Extubated. Follows commands and able to speak, Left face droop, weakness in left leg - UDS + amphetamines on admission - SBP Goal 130-200 to help with vasospasms - Nimodipine [id number] - Continue Keppra 1500mg daily after dialysis - TCDs Daily - Neuro-ICU monitoring, neurochecks q 2 hrs Sedation/Pain Management: Yes -ICU delirium - Stop Precedex - Fentanyl PRN - Seroquel BID 50mg - Haldol prn - Delirium protocol Cardiac: HTN, HLD - SBP goal: 130-180 - MAP goal > 65 - EKG with SR, LVH - 03/11 Restart BACK TUFTER minoxidil and metoprolol BID - 03/11 ECHO EF 55% - 03/13 Stop minoxidil - 03/19: restart metoprolol 50mg BID - 03/20: restart amlodipine 10mg qday -PRN labetalol and hyrdralazine Respiratory: Pleural effusion Date of Intubation: 03/09/17 Date of extubation: 03/15/17 Reason: Airway protection - OSH CXR with near complete opacification of left lung, likely pleural fluid. CXR at [facility] slightly improved - 03/10 CXR: Large left pleural effusion and left lung atelectasis. Slight progression of right basilar atelectasis. Cardiomegaly. - PaO2 goal >100, Spo2 goal >95%, PCO2 goal 35-40 torr, chest physiotherapy, bronchotherapy, PD& V q 6 hrs - Pulmonary team consulted for plural effusion - 1.7L removed from pleural effusion 03/14 - Bloody and exudative fluid - Cytology pending - Pleural effusion remains- Pulmonary consulted - Pulmonary toilet/physio GI: - Feeding: tube feeds novasource renal 40ml/hr water bolus 30ml q4 - neurosurgery bowel regimen, ensure daily BM -Speech therapy eval-ice chips only Heme: - assess for coagulopathy, maintain platelets above 100k, INR <1.5 - TEG did not identify any decreased clotting problems ID: - aim for normothermia, Temp <38.3 celsius, normothermia protocol if febrile Renal: ESRDon dialysis - Renal consult - dialysis last 03/19 - Do not want to lower bp by pulling too much fluid as at risk for vasospasm. Map goal of >80 during dialysis - Aim for normovolemia Intake/Output Summary (Last 24 hours) at 03/20/17 1124 Last data filed at 03/20/17 0800 Gross per 24 hour Intake 894 ml Output 3660 ml Net -2766 ml Endocrine: DM - 03/12 BG on chem 151- will start accuchecks x5 daily with SSI - 03/12 A1C-5.2 - Blood glucose goal 100-180mg/dl FEN: - IVF: No maintenance fluid - Magnesium goal >2.0, i-Jarred goal > 1.0, Potassium goal >4.0 mEq/L Prophylaxis Review: A) GI:[id number] B) Lines:2 peripheral lines and Right arterial line C) Urinary Catheter:No D) Antibiotic Usage:No E) VTE:SCDs F) Isolation:NA G)Seizures:Keppra I) Restraints: Patient assessed for need for restraints. Disposition/Family:NEICU Primary service:NSG Consults: NEICU, Renal, Pulmonary __ SUBJECTIVE Naren Mayfield is a 51 y.o. male. Overnight Events:swings right arm when sleeps and pulls on lines and head. So was placed on soft restraints overnight. Mentation is continuing to improve. States he was on 3L of O2 at home, but doing well with only 2L this morning. Bp continues to run on higher side. OBJECTIVE Vital Signs: Last Filed Vital Signs: 24 Hour Range ABP: 208/79 (03/20 1100) Temp: 36.5 C (97.7 F) (03/20 0800) Pulse: 75 (03/20 1100) Respirations: 17 PER MINUTE (03/20 1100) SpO2: 96 % (03/20 1100) O2 Delivery: None (Room Air) (03/20 1100) Weight: 100.3 kg (221 lb 1.9 oz) (03/19 1530) ABP: (159-213)/(59-98) Temp: [36.5 C (97.7 F)-37.1 C (98.7 F)] Pulse: [72-91] Respirations: [10 PER MINUTE-24 PER MINUTE] SpO2: [89 %-97 %] O2 Delivery: None (Room Air) Intensity Pain Scale 0-10 (Pain 1): (not recorded) Vitals: 03/14/17 0730 03/19/17 1130 03/19/17 1530 Weight: 115.9 kg (255 lb 8.2 oz) 103.3 kg (227 lb 11.8 oz) 100.3 kg (221 lb 1.9 oz) Scheduled Meds: amLODIPine (NORVASC) tablet 10 mg 10 mg Oral QDAY atorvastatin (LIPITOR) tablet 10 mg 10 mg Oral QHS bisacodyl (DULCOLAX) rectal suppository 10 mg 10 mg Rectal QDAY docusate (COLACE) oral solution 100 mg 100 mg Feeding Tube BID heparin (porcine) PF syringe 5,000 Units 5,000 Units Subcutaneous Q8H insulin aspart (NOVOLOG FLEXPEN) injection PEN 0-7 Units 0-7 Units Subcutaneous 5 X Day levETIRAcetam (KEPPRA) oral solution 1,500 mg 1,500 mg Feeding Tube QDAY metoprolol tartrate (LOPRESSOR) tablet 50 mg 50 mg Oral BID milk of magnesia (CONC) oral suspension 10 mL 10 mL Feeding Tube QDAY niMODipine (NYMALIZE) 3 mg/ mL solution 30 mg 30 mg Per OG Tube Q2H nystatin (MYCOSTATIN) oral suspension 500,000 Units 500,000 Units Swish & Swallow QID QUEtiapine (SEROQUEL) tablet 50 mg 50 mg Oral BID senna/docusate (SENOKOT-S) solution 10 mL 10 mL Feeding Tube BID Continuous Infusions: PRN and Respiratory Meds:acetaminophen Q4H PRN, albuterol 0.5% Q4H PRN, fentaNYL citrate PF Q1H PRN, haloperidol Q6H PRN, hydrALAZINE Q6H PRN, ipratropium bromide Q4H PRN, labetalol (NORMODYNE; TRANDATE) injection Q10 MIN PRN, methylcellulose PRN, ondansetron Q6H PRN, pancrelipase 20,000 Units/ sodium bicarbonate 650 mg(#) PRN (Production Aide from Rx) Critical Care Vitals: ICP Monitoring: Hemodynamics/Oxycalcs: BP 200/88 (BP Source: Arm, Right) | Pulse 75 | Temp 36.5 C (97.7 F) | Ht 172.7 cm (68") | Wt 100.3 kg (221 lb 1.9 oz) | SpO2 96% | BMI 33.62 kg/m2 Intake/Output Summary: (Last 24 hours) Intake/Output Summary (Last 24 hours) at 03/20/17 1124 Last data filed at 03/20/17 0800 Gross per 24 hour Intake 894 ml Output 3660 ml Net -2766 ml Stool Occurrence: 1 Physical Exam: Blood pressure 200/88, pulse 75, temperature 36.5 C (97.7 F), height 172.7 cm (68"), weight 100.3 kg (221 lb 1.9 oz), SpO2 96 %. General appearance: well-developed Neurologic: Pupil exam: Size: 3 Reactivity: brisk - Corneal reflex: R - present L - present -Left face droop - Cough: weak - Gag reflex: present RUE: Strength: 5/5, moves on command gave a thumbs up on command RLE Strength: 5/5, moves on command LUE: Strength: 5/5, moves on command LLE: Strength: 4+/5, able to lift leg off bed, weaker than right lower leg Lungs: diminished breath sounds on left base with crackles, clear on right Pulmonary: nasal cannula 2L Heart: regular rate and rhythm, S1, S2 normal Abdomen: soft, non-tender. Skull in abdomen, no palpable hematoma Extremities: extremities normal, atraumatic, no cyanosis, minimal edema Skin: Skin color, texture, turgor normal. No rashes or lesions Lab Review: Pertinent labs reviewed Medications: amLODIPine (NORVASC) tablet 10 mg 10 mg Oral QDAY atorvastatin (LIPITOR) tablet 10 mg 10 mg Oral QHS bisacodyl (DULCOLAX) rectal suppository 10 mg 10 mg Rectal QDAY docusate (COLACE) oral solution 100 mg 100 mg Feeding Tube BID heparin (porcine) PF syringe 5,000 Units 5,000 Units Subcutaneous Q8H insulin aspart (NOVOLOG FLEXPEN) injection PEN 0-7 Units 0-7 Units Subcutaneous 5 X Day levETIRAcetam (KEPPRA) oral solution 1,500 mg 1,500 mg Feeding Tube QDAY metoprolol tartrate (LOPRESSOR) tablet 50 mg 50 mg Oral BID milk of magnesia (CONC) oral suspension 10 mL 10 mL Feeding Tube QDAY niMODipine (NYMALIZE) 3 mg/ mL solution 30 mg 30 mg Per OG Tube Q2H nystatin (MYCOSTATIN) oral suspension 500,000 Units 500,000 Units Swish & Swallow QID QUEtiapine (SEROQUEL) tablet 50 mg 50 mg Oral BID senna/docusate (SENOKOT-S) solution 10 mL 10 mL Feeding Tube BID Point of Care Testing: (Last 24 hours): Glucose: (!) 132 (03/20/17 4548) POC Glucose (Download): (!) 150 (03/20/17 2737) Radiology and Other Diagnostic Procedures Review: Reviewed and discussed above. Jeancarlos Menendez MD Date: 03/20/[phone] Associated attestation - Derrell Bowers MD - 03/20/2017 11:49 AM INTERVENTIONIST Formatting of this note may be different from the original. ATTESTATION I have seen, personally fully evaluated, and discussed patient with Dr Menendez and [facility]. I agree with the objective findings and agree with the plan of care as documented by the resident with the exceptions noted. The patient is critically ill with SAH s/p clipping, EDH s/p evacuation, ESRD c/b metabolic acidosis, pleural effusion and hypoxemia. Restart amlodipine 10 mg daily (BACK TUFTER med), may need addition of clonidine to control BP. TCD today for vasospasm monitoring. OOB with PT with helmet Dialysis per renal service, appreciate assistance I spent 30 minutes (excluding time spent performing or supervising any procedures) providing and personally directing critical care services, including reviewing imaging and laboratory results. Staff name: Derrell Bowers MD Date: 03/20/2017 * Patti Mcclure - 03/20/2017 10:00 AM INTERVENTIONIST SPEECH-LANGUAGE PATHOLOGY DAILY TREATMENT NOTE Patient seen 1x this date. Documentation reflects all daily treatment sessions. SUMMARY OF THERAPY SESSION: F/u with pt this date for ongoing clinical swallow evaluation. Moderate to severe oropharyngeal dysphagia remains. Pt initially did well with PO trials, however as they progressed began to demonstrate consistent throat clearing. Please see details below. RECOMMENDATIONS: 1:NPO with ice chips only (15-20 per hour). Please follow precautions posted at [facility]. Continue temporary alternate source of nutrition. 2:Will continue to follow for ongoing dysphagia management and cognitive evaluation as able to complete. 3:Pt will require ongoing speech services at the next level of care. Consistent supervision recommended upon discharge as anticipate patient's impaired memory & attention will potentially impact their safety. 4: Lindsaywaltiana 03/21-discussed with Primary team and ICU team. Goal: Pt will participate in an ongoing clinical swallow evaluation with moderate cues. Met Comment: Pt seen with ice chips, thin and nectar thick liquids and purees. Withdraw, control and formation appeared adequate with consistencies trialed. Swallow initiation was timely. Suspect some reduced elevation and possible incomplete airway closure 2* hoarse vocal quality. Pt initially did well with PO trials, however as they progressed began to demonstrate consistent throat clearing. Throat clear noted with all consistencies. Continue to address this goal Goal: Pt will participate in an ice chip protocol with no overt s/s of aspiration. Met Comment:Pt and family report use of ice chip protocol yesterday. Continue to address this goal PLAN / RECOMMENDATIONS: Will continue to follow 5x per week. Therapist: Patti MUNOZ/[employer] OPERATOR Pager:[phone] Office:[phone] Date: 03/20/2017 * Mel Ortiz - 03/19/2017 2:50 PM INTERVENTIONIST ORTHOTICS/PROSTHETICS Consult Note: NAME: Naren Mayfield ADMISSION DATE: admitted to hospital : 1965 AGE: 51 y.o. ROOM: [place] [id number] DOCTOR: Date of Order: 03/19 Date of Service: 03/19 Services referred for: Orthotic Eval and Treat: Hard helmet Description of condition/injury, including services:Post Surgery Size: large Side na Measurements: Area/circumference/Diameter/Length na Functional Goals discussed for device use: Post surgical support/correction Device is to be ordered no Estimated date of delivery delivered 03/19 Functional goals met: Yes The patient states satisfaction with the fit/function of device: Yes Additional supplies provided to the patient: no Patient Education: Written and/or verbal instruction/information provided to Patient and Hospital staff Information provided: device function, usage/break-in period, safety issues, donning/doffing of device, how/whom to report problems related to device/change in physical condition, hospital staff provided instructions, care and cleaning, fitting issues, benefits and precautions and skin inspection Patient did tolerate the procedure without incident/problem. Follow-up scheduled: patient fit today with large helmet. To be worn when up. To follow up as needed PLAN: Order completed Mel Ortiz 03/19/2017 * Tracie Mitchell MD - 03/19/2017 1:28 PM INTERVENTIONIST Formatting of this note may be different from the original. Renal Progress Note Name: Naren Mayfield Today's Date: 03/19/2017 Admission Date: 03/09/2017 LOS: 10 days Assessment and Plan Principal Problem: 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HCC) Active Problems: IVH (intraventricular hemorrhage) (HCC) Intraparenchymal hematoma of brain (HCC) Subarachnoid bleed (HCC) Naren Mayfield is a 51 y.o. male with Subarachnoid hemorrhage s/p clipping ESRD on dialysis HTN: MAP goal>80 per neuro surgery team Hyperphosphatemia: moderate, should improve with dialysis Metabolic Acidosis - this has corrected with dialysis, but continues to have high anion gap Plan Dialysis today I examined him on dialysis Plan for 2-3 L fluid removal which he is tolerating well so far Will maintain MAP>90 per neuro team Tracie Mitchell MD Pager [phone] Subjective Naren Mayfield is a 51 y.o. male. Examined on dialysis. Medications MEDS atorvastatin 10 mg Oral QHS bisacodyl 10 mg Rectal QDAY docusate 100 mg Feeding Tube BID heparin (porcine) 5,000 Units Subcutaneous Q8H insulin aspart 0-7 Units Subcutaneous 5 X Day levETIRAcetam 1,500 mg Feeding Tube QDAY metoprolol tartrate 50 mg Oral BID milk of magnesia (CONC) 10 mL Feeding Tube QDAY niMODipine 30 mg Per OG Tube Q2H nystatin 500,000 Units Swish & Swallow QID QUEtiapine 50 mg Oral BID senna/docusate 10 mL Feeding Tube BID IV MEDS Prn acetaminophen Q4H PRN 650 mg at 03/19/17 1122, albuterol 0.5% Q4H PRN, fentaNYL citrate PF Q1H PRN 50 mcg at 03/18/17 1953, haloperidol Q6H PRN 5 mg at 03/18/17 1154, hydrALAZINE Q6H PRN 20 mg at 03/19/17 0853, ipratropium bromide Q4H PRN, labetalol (NORMODYNE; TRANDATE) injection Q10 MIN PRN 10 mg at 03/17/17 1731, methylcellulose PRN 1 drop at 03/16/17 1351, ondansetron Q6H PRN , pancrelipase 20,000 Units/ sodium bicarbonate 650 mg(#) PRN (Production Aide from Rx) Physical Exam Vital Signs: Last Filed In 24 Hours Vital Signs: 24 Hour Range Temp: 37.1 C (98.7 F) (03/19 1200) Pulse: 83 (03/19 1315) Respirations: 21 PER MINUTE (03/19 1315) SpO2: 90 % (03/19 1315) O2 Delivery: None (Room Air) (03/19 1315) SpO2 Pulse: 82 (03/19 1315) ABP: (146-216)/(60-80) Temp: [36.7 C (98.1 F)-37.2 C (99 F)] Pulse: [70-96] Respirations: [8 PER MINUTE-28 PER MINUTE] SpO2: [90 %-100 %] O2 Delivery: None (Room Air) Intensity Pain Scale 0-10 (Pain 1): Asleep (03/18/17 2030) Intake/Output Summary (Last 24 hours) at 03/19/17 1328 Last data filed at 03/19/17 1315 Gross per 24 hour Intake 2269.11 ml Output 4550 ml Net -2280.89 ml Vitals: 03/14/17 0200 03/14/17 0730 03/19/17 1130 Weight: 116.2 kg (256 lb 2.8 oz) 115.9 kg (255 lb 8.2 oz) 103.3 kg (227 lb 11.8 oz) Gen: pleasant CV: no JVD, S1 and S2 normal, no rubs, murmurs or gallops Pulm: decreased breath sounds at bases GI: BS+ x4, non-tender to palpation Neuro: sedated Ext: no edema Skin: no rash Labs Recent Labs 03/17/17 0413 03/18/17 0340 03/19/17 0418 NA 137 138 136* K 4.9 4.2 3.8 CL 97* 95* 94* CO2 19* 14* 21 GAP 21* 29* 21* BUN 59* 94* 60* CR 6.74* 9.41* 6.68* GLU 142* 152* 166* CA 9.5 10.4 10.0 MG 2.4 2.6 2.3 PO4 6.6* 9.2* 6.2* Recent Labs 03/16/17 1410 03/17/17 0413 03/18/17 0340 03/19/17 0418 WBC 8.9 8.1 8.6 7.4 HGB 8.1* 8.5* 8.9* 9.3* HCT 24.8* 25.9* 25.9* 27.0* PLTCT 194 196 224 218 Estimated Creatinine Clearance: 15.6 mL/min (based on Cr of 6.68). Vitals: 03/14/17 0200 03/14/17 0730 03/19/17 1130 Weight: 116.2 kg (256 lb 2.8 oz) 115.9 kg (255 lb 8.2 oz) 103.3 kg (227 lb 11.8 oz) Recent Labs 03/18/17 0340 03/19/17 0418 PHART 7.28* 7.34* PO2ART 96 108* Tracie Mitchell MD Pager [phone] * Portia Johnson, RD - 03/19/2017 11:50 AM INTERVENTIONIST CLINICAL NUTRITION Clinical Nutrition Follow-Up Summary Nutrition Assessment of Patient: Malnutrition Assessment: Does not meet criteria Current Oral Intake: NPO Estimated Calorie Needs: 7890-7656 (30-32 kcal/kg desired wt) Estimated Protein Needs: 111-133g (1.5-1.8g/kg desired wt 74kf) Oral Diet Order: NPO Intake (calories) Daily Average : 1786 kilocalories (3 day EN/Prosource ave 03/16; 80% goal) Intake (protein) Daily Average : 118 grams (3 day EN/Prosource ave 03/16-; within goal range) Current EN Order: Novasource Renal @ 40ml/hr with 30ml water bolus [id number] and 3 packs Prosource per day. This provides 2100 kcal, 132 g protien and 871ml free water. at goal. Adding 3 packs Nutrisource fiber per day starting today ( 9g soluble fiber per day). Comment: 51 yo M admitted 03/09 from OSH after being acutely unresponsive during dialysis. CT was done at OSH and CT demonstrated large lesion and a possible MCA aneurysm. PMH includes HLD, HTN, ESRD on dialysis, and diabetes. Upon arrival to , pt was intubated. 03/10 s/p clipping and craniectomy. Off propofol 03/12, extubated 03/15. Pt with corpak tip still in stomach per 03/17 KUB. EN began 12:00 on 03/12 with Novasource Renal. Currently at goal rate of 40 ml/hr. 3 day EN/Prosource average 03/16- met 80% min kcal goal and within protein goal range. Last dialysis 03/18 with plans for HD today d/t acidosis per renal note of 03/18. No edema currently noted per RN, no pressure injuries noted. BM 03/19. Primary team adding 3 packs Nutrisource fiber starting today. Pt tolerating EN fine per RN. FSBS 121-194 with low dose correction insulin on board. GAMEWELL OPERATOR to see pt for oral intake safety and options. Recommendation: Recommend increasing Novasource Renal to goal of 45 ml/hr with 3 packs Prosource per day (fluids per primary team). Add Nutrisource fiber packs gradually, 1 additonal per day over 3 days to avoid too much change in fiber at once. If pt mental status allows for safe swallow eval and progression of diet, recommend combination renal dialysis/60g/meal consistent carb diabetic diet order with texture per GAMEWELL OPERATOR. Intervention / Plan: re-eval of kcal goals with HD Monitor EN tolerance/provision monitor wt trends, labs, meds, GI status monitor for swallow eval and ability to advance diet per GAMEWELL OPERATOR Nutrition Diagnosis: Nutrition Diagnosis: Altered GI function Etiology: swallowing deficits s/p SAH/extubation Signs & Symptoms: NPO with EN feeds and plans for GAMEWELL OPERATOR eval Goals: EN tolerated and meeting >85% of nutritional needs Time Frame: Throughout Stay Status: Partially met;Ongoing Portia Johnson RD * Patti Mcclure - 03/19/2017 11:44 AM INTERVENTIONIST SPEECH-LANGUAGE PATHOLOGY CLINICAL SWALLOW ASSESSMENT EVALUATION SUMMARY Summary: Clinical swallow evaluation completed this date. Moderate to severe oropharyngeal dysphagia present 2* prolonged intubation. Please see details below. RECOMMENDATIONS: 1:NPO with ice chips only (15-20 per hour). Please follow precautions posted at [facility]. Continue temporary alternate source of nutrition. 2:Will continue to follow for ongoing dysphagia management and cognitive evaluation as able to complete. 3:Pt will require ongoing speech services at the next level of care. Consistent supervision recommended upon discharge as anticipate patient's impaired memory & attention will potentially impact their safety. Oral Stage Summary*: Pt seen with ice chips, thin and nectar thick liquids and purees. Withdraw, control and formation appeared adequate with consistencies trialed. Pharyngeal Stage Summary*: Swallow initiation was timely. Suspect some reduced elevation and possible incomplete airway closure 2* hoarse vocal quality. Cough noted following thin liquid and pureed trials. Swallow Recommendations* NPO PO: Ice chip only Plan: Will continue to follow 3-5x per week. Prognosis: Good NOMS Dysphagia Ratin5-[id number]-Auxyiy Dysphagia -Not able to swallow safely by mouth for nutrition/hydration but may take some consistency w/ consistent max cues in therapy only. Alternative method of feeding required. Results Reported to Physician: Yes Objective* Naren Dickens a 51 y.o.malewith PMH of HLD, HTN, renal failure, dialysis, and diabetes presenting from OSH after being at dialysis 03/09when he became acutely unresponsive. CT was done at OSH and demonstrated SAH and a possible MCA aneurysm. Patient was then transferred to for further care and management. Hospital and ICU course: 03/09: Admit NEICU. CTA. Angiogram 03/10: To OR for clipping, emergent return to OR due to epidural bleed kept intubated, hemicraniectomy 03/11: Dialysis, remains intubated. 03/12: Sheaths to be d/c'd today corpak placed. wean trial today 03/13: MS change, vasospasms on CTA 03/14: MS improved, PLEDs on VEEG 03/15: Extubated, VEEG stopped 03/16: Attempting to wean sedation 03/17: Face shield for breathing trouble, Pulm to assist with left lower lobe effusion CT head 03/11 IMPRESSION 1. Interval right pterional craniectomy and epidural hematoma evacuation with mild transcranial herniation and resolution of midline shift. 2. Prior right MCA bifurcation aneurysm clipping. 3. Stable mild right perisylvian subarachnoid hemorrhage and trace intraventricular blood products. 4. Persistent nonspecific white matter disease, likely related to chronic microvascular ischemia. Handedness: Right Hearing: WFL Psychosocial Status: Cooperative Subjective* Pain: Patient has no complaint of pain Pain Level Current*: No pain Trach Presence: No Feeding Tube Present During Eval: corpak Nutrition* Nutrition Prior To Hospitalization: Regular;Thin Liquids Current Form Of Nutrition: NPO ORAL MECH EXAM Oral [facility] WFL*: Face asymmetrical upon labial retraction (reduced on L). Pt with missing natural dentition; remaining teeth appeared in poor condition. Jaw strength functional. Lingual ROM appeared functional. Reduced strength on L. Vocal quality hoarse; which may indicate reduced airway closure. Education* Persons Educated: Patient/Sister Barriers To Learning: Cognitive changes? Interventions: Repetition of Instructions Teaching Methods: Verbal;printed Topics: Dysphagia Patient Response: Verbalized Understanding Goal: Pt will participate in an ice chip protocol with no overt s/s of aspiration. Goal: Pt will participate in an ongoing clinical swallow evaluation with moderate cues. Therapist:Patti Nava M.S., CCC-L/GAMEWELL OPERATOR Pager:[phone] Office:[phone] Date:03/19/2017 * Jeancarlos Menendez MD - 03/19/2017 11:17 AM INTERVENTIONIST Formatting of this note may be different from the original. 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 CT was done at OSH and demonstrated SAH and a possible MCA aneurysm. Patient was then transferred to for further care and management. Hospital and ICU course: 03/09: Admit NEICU. CTA. Angiogram 03/10: To OR for clipping, emergent return to OR due to epidural bleed kept intubated, hemicraniectomy 03/11: Dialysis, remains intubated. 03/12: Sheaths to be d/c'd today corpak placed. wean trial today 03/13: MS change, vasospasms on CTA 03/14: MS improved, PLEDs on VEEG 03/15: Extubated, VEEG stopped 03/16: Attempting to wean sedation 03/17: Face shield for breathing trouble, Pulm to assist with left lower lobe effusion Neuro: IPH rt temporal lobe, SAH rt frontotemporal lobe, epidural bleed, s/p right hemicraniectomy Escobar and Moore Grade (on admission): 4 Modified Stone Grade (on admission): 3 Evidence of hydrocephalus:No EVD at: N/A Sodium Goal:135-145 - 03/09 CTA Head: 1. Large saccular aneurysm projecting laterally from the right MCA bifurcation measuring up to 1.5 cm in maximum diameter. No significant change in surrounding right anterior temporal parenchymal hematoma as well as scattered right convexity subarachnoid hemorrhage. Small amount of layering blood products are noted within the occipital horn of the left lateral ventricle. No progressive ventricular distention to suggest hydrocephalus. Moderate nonspecific white matter disease, likely due to chronic microvascular ischemia. 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 - 03/10 S/p Clipping and craniectomy - 03/13 CTA head: 1. Mild increased smooth narrowing of the intracranial arterial vasculature, most notably within the A1 segments, consistent with mild vasospasm. No high-grade intracranial arterial stenosis is identified. 2. 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 3. Increased conspicuity of moderate sized infarct/cytotoxic edema within the anterior right temporal lobe. 4. Persistent mild transcranial herniation at the right pterional craniectomy site with improving intracranial mass effect. 5. Improving localized subarachnoid hemorrhage within the right sylvian fissure.6. Bony thinning and probable dehiscence of the right jugular bulb sigmoid plate. - 03/13 CT perfusion: 1. Scattered small and moderate sized mismatch perfusion defects within the bilateral cerebral and cerebellar hemispheres, likely related to aforementioned vasospasm. 2. Moderate-sized matched perfusion defect within the anterior right temporal lobe, consistent with completed infarct. This is underestimated on the quantitative RAPID software. -03/14 VEEG- Right PLEDs, severe diffuse slowing -03/15 VEEG- Right PLEDs, severe diffuse slowing Extubated. Follows commands and able to speak, Left face droop, weakness in left leg - UDS + amphetamines on admission - SBP Goal 130-200 to help with vasospasms - Nimodipine [id number] - Continue Keppra 1500mg daily after dialysis - TCDs Daily - Neuro-ICU monitoring, neurochecks q 1 hrs Sedation/Pain Management: Yes -ICU delirium - Stop Precedex - Fentanyl PRN - Seroquel BID 50mg - Haldol prn - Delirium protocol Cardiac: HTN, HLD - SBP goal: 130-180 - MAP goal > 65 - EKG with SR, LVH - 03/11 Restart BACK TUFTER minoxidil and metoprolol BID - 03/11 ECHO EF 55% - 03/13 Stop minoxidil - 03/19: restart metoprolol 50mg BID -PRN labetalol and hyrdralazine Respiratory: Pleural effusion Date of Intubation: 03/09/17 Date of extubation: 03/15/17 Reason: Airway protection - OSH CXR with near complete opacification of left lung, likely pleural fluid. CXR at slightly improved - 03/10 CXR: Large left pleural effusion and left lung atelectasis. Slight progression of right basilar atelectasis. Cardiomegaly. - PaO2 goal >100, Spo2 goal >95%, PCO2 goal 35-40 torr, chest physiotherapy, bronchotherapy, PD& V q 6 hrs - Pulmonary team consulted for plural effusion - 1.7L removed from pleural effusion 03/14 - Bloody and exudative fluid - Cytology pending - Pleural effusion remains- Pulmonary consulted - Pulmonary toilet/physio GI: - Feeding: tube feeds novasource renal 40ml/hr water bolus 30ml q4 - neurosurgery bowel regimen, ensure daily BM -Speech therapy eval as patient's mentation improved Heme: - assess for coagulopathy, maintain platelets above 100k, INR <1.5 - TEG did not identify any decreased clotting problems ID: - Tmax 37.8 - WBC 8.6 - aim for normothermia, Temp <38.3 celsius, normothermia protocol if febrile Renal: ESRDon dialysis - Renal consult - dialysis today - Do not want to lower bp by pulling too much fluid as at risk for vasospasm. Map goal of >80 during dialysis - Aim for normovolemia Intake/Output Summary (Last 24 hours) at 03/19/17 1117 Last data filed at 03/19/17 1000 Gross per 24 hour Intake 2085.11 ml Output 4550 ml Net -2464.89 ml Endocrine: DM - 03/12 BG on chem 151- will start accuchecks x5 daily with SSI - 03/12 A1C-5.2 - Blood glucose goal 100-180mg/dl FEN: - IVF: No maintenance fluid - Magnesium goal >2.0, i-Jarred goal > 1.0, Potassium goal >4.0 mEq/L Prophylaxis Review: A) GI:[id number] B) Lines:2 peripheral lines and Right arterial line C) Urinary Catheter:No D) Antibiotic Usage:No E) VTE:SCDs F) Isolation:NA G)Seizures:Keppra I) Restraints: Patient assessed for need for restraints. Disposition/Family:[facility] Primary service:NSG Consults: NEICU, Renal, Pulmonary __ SUBJECTIVE Naren Mayfield is a 51 y.o. male. Overnight Events:Blood pressure elevated to low 200s systolic even after dialysis. Precedex was started to help with pressures. Mentation is much improved this morning. He is able to converse much more and answers questions appropriately. This mentation improved after dialysis yesterday according to sister. OBJECTIVE Vital Signs: Last Filed Vital Signs: 24 Hour Range ABP: 146/72 (03/19 1100) Temp: 37.2 C (99 F) (03/19 0800) Pulse: 70 (03/19 1100) Respirations: 16 PER MINUTE (03/19 1100) SpO2: 98 % (03/19 1100) O2 Delivery: Nasal Cannula (03/19 1100) ABP: (146-216)/(60-80) Temp: [36.7 C (98.1 F)-37.2 C (99 F)] Pulse: [70-96] Respirations: [8 PER MINUTE-28 PER MINUTE] SpO2: [90 %-100 %] O2 Delivery: Nasal Cannula Intensity Pain Scale 0-10 (Pain 1): (not recorded) Vitals: 03/12/17 1603 03/14/17 0200 03/14/17 0730 Weight: 108.8 kg (239 lb 13.8 oz) 116.2 kg (256 lb 2.8 oz) 115.9 kg (255 lb 8.2 oz) Scheduled Meds: atorvastatin (LIPITOR) tablet 10 mg 10 mg Oral QHS bisacodyl (DULCOLAX) rectal suppository 10 mg 10 mg Rectal QDAY docusate (COLACE) oral solution 100 mg 100 mg Feeding Tube BID heparin (porcine) PF syringe 5,000 Units 5,000 Units Subcutaneous Q8H insulin aspart (NOVOLOG FLEXPEN) injection PEN 0-7 Units 0-7 Units Subcutaneous 5 X Day levETIRAcetam (KEPPRA) oral solution 1,500 mg 1,500 mg Feeding Tube QDAY metoprolol tartrate (LOPRESSOR) tablet 50 mg 50 mg Oral BID milk of magnesia (CONC) oral suspension 10 mL 10 mL Feeding Tube QDAY niMODipine (NYMALIZE) 3 mg/ mL solution 30 mg 30 mg Per OG Tube Q2H nystatin (MYCOSTATIN) oral suspension 500,000 Units 500,000 Units Swish & Swallow QID QUEtiapine (SEROQUEL) tablet 50 mg 50 mg Oral BID senna/docusate (SENOKOT-S) solution 10 mL 10 mL Feeding Tube BID Continuous Infusions: PRN and Respiratory Meds:acetaminophen Q4H PRN, albuterol 0.5% Q4H PRN, fentaNYL citrate PF Q1H PRN, haloperidol Q6H PRN, hydrALAZINE Q6H PRN, ipratropium bromide Q4H PRN, labetalol (NORMODYNE; TRANDATE) injection Q10 MIN PRN, methylcellulose PRN, ondansetron Q6H PRN, pancrelipase 20,000 Units/ sodium bicarbonate 650 mg(#) PRN (Production Aide from Rx), sodium chloride 0.9% (NS) IP Dialysis PRN, sodium chloride 0.9% (NS) IP Dialysis PRN, sodium chloride 0.9 % (NS) IP Dialysis PRN Critical Care Vitals: ICP Monitoring: Hemodynamics/Oxycalcs: BP 200/88 (BP Source: Arm, Right) | Pulse 70 | Temp 37.2 C (99 F) | Ht 172.7 cm (68") | Wt 115.9 kg (255 lb 8.2 oz) | SpO2 98% | BMI 38.85 kg/m2 Intake/Output Summary: (Last 24 hours) Intake/Output Summary (Last 24 hours) at 03/19/17 1117 Last data filed at 03/19/17 1000 Gross per 24 hour Intake 2085.11 ml Output 4550 ml Net -2464.89 ml Stool Occurrence: 1 Physical Exam: Blood pressure 200/88, pulse 70, temperature 37.2 C (99 F), height 172.7 cm (68"), weight 115.9 kg (255 lb 8.2 oz), SpO2 98 %. General appearance: well-developed Neurologic: Pupil exam: Size: 3 Reactivity: brisk - Corneal reflex: R - present L - present -Left face droop - Cough: weak - Gag reflex: present RUE: Strength: 5/5, moves on command gave a thumbs up on command RLE Strength: 5/5, moves on command LUE: Strength: 5/5, moves on command LLE: Strength: 4/5, able to lift leg off bed, weaker than right lower leg Lungs: diminished breath sounds on left base with crackles, clear on right Pulmonary: face shield 40% O2 Heart: regular rate and rhythm, S1, S2 normal Abdomen: soft, non-tender. Skull in abdomen, no palpable hematoma Extremities: extremities normal, atraumatic, no cyanosis, minimal edema Skin: Skin color, texture, turgor normal. No rashes or lesions Lab Review: Pertinent labs reviewed Medications: atorvastatin (LIPITOR) tablet 10 mg 10 mg Oral QHS bisacodyl (DULCOLAX) rectal suppository 10 mg 10 mg Rectal QDAY docusate (COLACE) oral solution 100 mg 100 mg Feeding Tube BID heparin (porcine) PF syringe 5,000 Units 5,000 Units Subcutaneous Q8H insulin aspart (NOVOLOG FLEXPEN) injection PEN 0-7 Units 0-7 Units Subcutaneous 5 X Day levETIRAcetam (KEPPRA) oral solution 1,500 mg 1,500 mg Feeding Tube QDAY metoprolol tartrate (LOPRESSOR) tablet 50 mg 50 mg Oral BID milk of magnesia (CONC) oral suspension 10 mL 10 mL Feeding Tube QDAY niMODipine (NYMALIZE) 3 mg/ mL solution 30 mg 30 mg Per OG Tube Q2H nystatin (MYCOSTATIN) oral suspension 500,000 Units 500,000 Units Swish & Swallow QID QUEtiapine (SEROQUEL) tablet 50 mg 50 mg Oral BID senna/docusate (SENOKOT-S) solution 10 mL 10 mL Feeding Tube BID Point of Care Testing: (Last 24 hours): Glucose: (!) 166 (03/19/17 9418) POC Glucose (Download): (!) 163 (03/19/17 4980) Radiology and Other Diagnostic Procedures Review: Reviewed and discussed above. Jeancarlos Menendez MD Date: 03/19/[phone] Associated attestation - Derrell Bowers MD - 03/19/2017 1:59 PM INTERVENTIONIST Formatting of this note may be different from the original. ATTESTATION I have seen, personally fully evaluated, and discussed patient with Dr Menendez and [facility]. I agree with the objective findings and agree with the plan of care as documented by the resident with the exceptions noted. The patient is critically ill with SAH s/p clipping, EDH s/p evacuation, ESRD c/b metabolic acidosis, pleural effusion and hypoxemia. Stop precedex, use labetalol / hydralazine for BP. Start half home dose of metoprolol 50 mg bid today for SBP repeatedly > 200 in the absence of sonographic vasospasm. I spent 40 minutes (excluding time spent performing or supervising any procedures) providing and personally directing critical care services, including reviewing imaging and laboratory results. Staff name: Derrell Bowers MD Date: 03/19/2017 * Sharyn Rutledge - 03/19/2017 8:59 AM INTERVENTIONIST OCCUPATIONAL THERAPY PROGRESS NOTE Patient Name: Naren Mayfield Room/Bed: FL8605/01 Admitting Diagnosis: subarachnoid hemorrhage Subarachnoid bleed (HCC) Mobility Progressive Mobility Level: Stand Level of Assistance: Assist X2 Assistive Device: Hand Held Time Tolerated: 11-30 minutes Activity Limited By: Fatigue Subjective Pertinent Dx per Physician: 51 y.o. male with PMH of HLD, HTN, renal failure, dialysis, and diabetes presenting from OSH after being at dialysis 03/09 when he became acutely unresponsive. CT was done at OSH and demonstrated SAH and a possible MCA aneurysm. Patient was then transferred to for further care and management. Precautions: Falls Pain / Complaints: Patient agrees to participate in therapy Comments: Patient in bed at start and end of session with bed alarm set, call light within reach and RN notified of patient status. Objective Psychosocial Status: Willing and Cooperative to Participate Persons Present: Sister;PT (OT student) ADL's Where Assessed: Edge of Bed Grooming Assist: Moderate Assist Grooming Deficits: Verbal Cueing;Supervision/Safety;Wash/Dry Face Functional Transfer Assist: Moderate Assist (x2) Comment: Patient required verbal cues and minimal assist of 2 for supine to sit transfer. Sat EOB for 15 minutes with minimal assist progressing to stand by assist. Performed grooming with repeated verbal cues for incision and corpak safety. Patient stood with moderate assist of 2 and verbal cues for safety. Activity Tolerance Endurance: 3/5 Tolerates 25-30 Minutes Exercise w/Multiple Rests Sitting Balance: 2/5 Supports Self Independently w/Both UEs Cognition Overall Cognitive Status: Impaired Cognition Comment: Patient joking during session but also demonstrates impaired safety awareness. UE AROM Coordination: Adequate to Complete ADLs Education Persons Educated: Patient/Family Teaching Methods: Verbal Instruction;Demonstration Patient Response: Return Demonstration;More Instruction Required Topics: Role of OT, Goals for Therapy;Home safety Goal Formulation: With Patient/Family Assessment Assessment: Decreased ADL Status;Decreased Safe/Judg during ADL;Decreased Endurance;Decreased Self-Care Trans;Decreased High-Level ADLs Prognosis: Good;w/Cont OT s/p Acute Discharge Goal Formulation: Pt/family AM-PAC 6 Clicks Daily Activity Inpatient Putting on and taking off regular lower body clothes?: A Lot Bathing (Including washing, rinsing, drying): A Lot Toileting, which includes using toilet, bedpan, or urinal: A Lot Putting on and taking off regular upper body clothing: A Little Taking care of personal grooming such as brushing teeth: A Little Eating meals?: Total Daily Activity Raw Score: 13 Standardized (t-scale) score: 32.03 CMS 0-100% Score: 63.03 CMS G Code Modifier: CL Plan Treatment Interventions: ADL Retraining;Functional Transfer Training;Endurance Training;Patient/Family Training;Equipment Evaluation/Education;Compensatory Technique Education OT Frequency: 5x/week Next session: continue working on EOB sitting balance. Transfer to chair if patient has helmet. ADL Goals Patient Will Perform Grooming: in Chair, w/ Stand By Assist Functional Transfer Goals Pt Will Transfer To Bedside Commode: w/ Minimum Assist OT Discharge Recommendations OT Discharge Recommendations: Inpatient Setting Equipment Recommendations: Too early to be determined Therapist: MIRNA Westfall/Omar [id number] Date: 03/19/2017 * Carole Sloan, PT - 03/19/2017 8:58 AM INTERVENTIONIST PHYSICAL THERAPY PROGRESS NOTE MOBILITY: Mobility Progressive Mobility Level: Stand Level of Assistance: Assist X2 Assistive Device: Hand Held Time Tolerated: 11-30 minutes Activity Limited By: Fatigue SUBJECTIVE: Subjective Significant hospital events: 51 y.o. male presenting from OSH after being at dialysis 03/09 when he became acutely unresponsive. CT was done at OSH and demonstrated SAH and a possible MCA aneurysm. Patient was then transferred to for further care and management. 03/10 s/p craniotomy for aneurysm clipping; returned emergently to OR for epidural bleed and hemicraniectomy Mental / Cognitive Status: Cooperative;Inconsistent with Command Following;Alert Persons Present: OT;Sister Pain: Patient has no complaint of pain;Patient demonstrates no signs of pain Pain Interventions: Patient agrees to participate in therapy;Patient assisted into position of comfort Comments: No bone flap R side, contacted neurosurgery team for helmet order Precautions: Helmet on when Out of Bed Comments: PMH: HLD, HTN, renal failure, dialysis, and diabetes BED MOBILITY/TRANSFERS: Bed Mobility/Transfers Bed Mobility: Supine to Sit: Minimal Assist;x2 People;Assist with B LE;Assist with Trunk;Head of Bed Elevated Bed Mobility: Sit to Supine: Moderate Assist;x2 People;Assist with B LE;Assist with Trunk;Bed Flat Transfer Type: Sit to Stand Transfer: Assistance Level: To/From;Bed;Moderate Assist;x2 People Transfer: Assistive Device: Hand Hold Assist Transfers: Type Of Assistance: Verbal Cues;For Balance;For Safety Considerations End Of Activity Status: Nursing Notified;Instructed Patient to Request Assist with Mobility;Instructed Patient to Use Call Light;In Bed (bed alarm on) BALANCE: Balance Sitting Balance: Static Sitting Balance;Moderate Assist GAIT: Gait Comments: Not able to ambulate this date due to weakness/safety concerns without helmet in place. ACTIVITY/EXERCISE: Activity / Exercise Sit Edge Of Bed: 12 minutes Sit Edge Of Bed Assist: Moderate Assist EDUCATION: Education Persons Educated: Patient/Family Patient Barriers To Learning: Cognitive Deficits;Decreased Alertness Interventions: Repetition of Instructions Teaching Methods: Verbal Instruction Patient Response: Verbalized Understanding;More Instruction Required Topics: Plan/Goals of PT Interventions;Mobility Progression;Safety Awareness;Up with Assist Only;Importance of Increasing Activity;Recommend Continued Therapy ASSESSMENT/PROGRESS: Assessment/Progress Impaired Mobility Due To: Decreased Strength;Impaired Balance;Cognitive Deficits ;Safety Concerns;Decreased Activity Tolerance Assessment/Progress: Should Improve w/ Continued PT AM-PAC 6 Clicks Basic Mobility Inpatient Turning from your back to your side while in a flat bed without using bed rails : A lot Moving from lying on your back to sitting on the side of a flatbed without using bedrails : A Lot Moving to and from a bed to a chair (including a wheelchair): Total Standing up from a chair using your arms (e.g. wheelchair, or bedside chair): Total To walk in hospital room: Total Climbing 3-5 steps with a railing: Total Raw Score: 8 Standardized (T-scale) Score: 22.61 Basic Mobility CMS 0-100%: 85.35 [facility] G Code Modifier for Basic Mobility: CM GOALS: Goals Goal Formulation: With Patient Time For Goal Achievement: 7 days Pt Will Go Supine To/From Sit: w/ Minimal Assist Pt Will Transfer Bed/Chair: w/ Minimal Assist, w/ Assist of 2 Pt Will Transfer Sit to Stand: w/ Minimal Assist Pt Will Ambulate: 51-100 Feet, w/ No Device Pt Will Achieve Sitting Balance: Static Sitting Balance, Dynamic Sitting Balance , No UE Support, Minimal Assist PLAN: Plan Treatment Interventions: Mobility Training;Strengthening;Balance Activities; Coordination Training;Endurance Training;Neuromuscular Reeducation Plan Frequency: 5 Days per Week Comments: continue standing trials; transfers to chair as able RECOMMENDATIONS: PT Discharge Recommendations PT Discharge Recommendations: Inpatient Setting;Recommend Physical Medicine and Rehabilitation Consult to address most appropriate level of rehabilitation placement Therapist: Carole Sloan, PT Date: 03/19/2017 * Tracie Mitchell MD - 03/18/2017 3:42 PM INTERVENTIONIST Formatting of this note may be different from the original. Renal Progress Note Name: Naren Mayfield Today's Date: 03/18/2017 Admission Date: 03/09/2017 LOS: 9 days Assessment and Plan Principal Problem: 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HCC) Active Problems: IVH (intraventricular hemorrhage) (HCC) Intraparenchymal hematoma of brain (HCC) Subarachnoid bleed (HCC) Naren Mayfield is a 51 y.o. male with Subarachnoid hemorrhage s/p clipping ESRD on dialysis HTN: MAP goal>80 per neuro surgery team Hyperphosphatemia: moderate, should improve with dialysis Gap Metabolic Acidosis - not sure why this has developed. No ketones or lactate. - will plan to dialyze today and tomorrow which should help to correct it. Plan Dialysis today and Saturday for both volume and acidosis. I examined him on dialysis Plan for 4 L fluid removal which he is tolerating well so far Tracie Mitchell MD Pager [phone] Subjective Naren Mayfield is a 51 y.o. male. Examined on dialysis. Medications MEDS atorvastatin 10 mg Oral QHS bisacodyl 10 mg Rectal QDAY docusate 100 mg Feeding Tube BID heparin (porcine) 5,000 Units Subcutaneous Q8H insulin aspart 0-7 Units Subcutaneous 5 X Day levETIRAcetam 1,500 mg Feeding Tube QDAY milk of magnesia (CONC) 10 mL Feeding Tube QDAY niMODipine 30 mg Per OG Tube Q2H nystatin 500,000 Units Swish & Swallow QID QUEtiapine 50 mg Oral BID senna/docusate 10 mL Feeding Tube BID IV MEDS dexmedetomidine (PRECEDEX) 400 mcg/NS 100 ml IV drip 0.8 mcg/kg/hr ( 1538) Prn acetaminophen Q4H PRN 650 mg at 03/17/17 2019, albuterol 0.5% Q4H PRN, fentaNYL citrate PF Q1H PRN 50 mcg at 03/18/17 1339, haloperidol Q6H PRN 5 mg at 03/18/17 1154, hydrALAZINE Q6H PRN 20 mg at 03/18/17 1251, ipratropium bromide Q4H PRN, labetalol (NORMODYNE; TRANDATE) injection Q10 MIN PRN 10 mg at 03/17/17 1731, methylcellulose PRN 1 drop at 03/16/17 1351, ondansetron Q6H PRN , pancrelipase 20,000 Units/ sodium bicarbonate 650 mg(#) PRN (Production Aide from Rx) , sodium chloride 0.9% (NS) IP Dialysis PRN, sodium chloride 0.9% (NS) IP Dialysis PRN Stopped at 03/18/17 1415, sodium chloride 0.9% (NS) IP Dialysis PRN Physical Exam Vital Signs: Last Filed In 24 Hours Vital Signs: 24 Hour Range Temp: 36.7 C (98.1 F) (03/18 141) Pulse: 75 (03/18 1530) Respirations: 19 PER MINUTE (03/18 153) SpO2: 96 % (03/18 1530) O2 Delivery: Face Shield (03/18 1530) SpO2 Pulse: 75 (03/18 1530) ABP: (144-216)/(52-79) Temp: [36.7 C (98 F)-37.4 C (99.3 F)] Pulse: [66-96] Respirations: [5 PER MINUTE-26 PER MINUTE] SpO2: [90 %-98 %] O2 Delivery: Face Shield Intensity Pain Scale 0-10 (Pain 1): 5 (03/17/171999) Intake/Output Summary (Last 24 hours) at 03/18/17 1542 Last data filed at 03/18/17 1500 Gross per 24 hour Intake 1297.75 ml Output 0 ml Net 1297.75 ml Vitals: 03/12/17 1603 03/14/17 0200 03/14/17 0730 Weight: 108.8 kg (239 lb 13.8 oz) 116.2 kg (256 lb 2.8 oz) 115.9 kg (255 lb 8.2 oz) Gen: anxious today CV: no JVD, S1 and S2 normal, no rubs, murmurs or gallops Pulm: decreased breath sounds at bases GI: BS+ x4, non-tender to palpation Neuro: sedated Ext: no edema Skin: no rash Labs Recent Labs 03/16/17 0507 03/17/17 0413 03/18/17 0340 NA 137 137 138 K 4.5 4.9 4.2 CL 97* 97* 95* CO2 14* 19* 14* GAP 26* 21* 29* BUN 83* 59* 94* CR 8.61* 6.74* 9.41* GLU 149* 142* 152* CA 9.8 9.5 10.4 MG 2.4 2.4 2.6 PO4 9.4* 6.6* 9.2* Recent Labs 03/16/17 1410 03/17/17 0413 03/18/17 0340 WBC 8.9 8.1 8.6 HGB 8.1* 8.5* 8.9* HCT 24.8* 25.9* 25.9* PLTCT 194 196 224 Estimated Creatinine Clearance: 11.7 mL/min (based on Cr of 9.41). Vitals: 03/12/17 1603 03/14/17 0200 03/14/17 0730 Weight: 108.8 kg (239 lb 13.8 oz) 116.2 kg (256 lb 2.8 oz) 115.9 kg (255 lb 8.2 oz) Recent Labs 03/17/17 0527 03/18/17 0340 PHART 7.32* 7.28* PO2ART 108* 96 Tracie Mitchell MD Pager [phone] * Yesenia Yoon, PT - 03/18/2017 9:38 AM INTERVENTIONIST PHYSICAL THERAPY PROGRESS NOTE MOBILITY: Progressive Mobility Level: Sit on edge of bed Level of Assistance: Assist X2 Assistive Device: None Time Tolerated: 11-30 minutes Activity Limited By: Fatigue SUBJECTIVE: Subjective Significant hospital events: 51 y.o. male with PMH of HLD, HTN, renal failure, dialysis, and diabetes presenting from OSH after being at dialysis 03/09 when he became acutely unresponsive. CT was done at OSH and demonstrated SAH and a possible MCA aneurysm. Patient was then transferred to for further care and management. Mental / Cognitive Status: Lethargic;Cooperative;Inconsistent with Command Following Persons Present: OT;Family Pain: Patient has no complaint of pain;Patient demonstrates no signs of pain Pain Interventions: Patient agrees to participate in therapy;Patient assisted into position of comfort Comments: No bone flap R side, no helmet as of 03/18. Ambulation Assist: Independent Mobility in Community with Device Patient Owned Equipment: Single Point Cane Home Situation: Lives with Family (sister) Type of Home: House Entry Stairs: 3-5 Stairs In-Home Stairs: Able to Live on One Level Comments: Previously independent with ADLs. Uses single point cane when feeling weak. BED MOBILITY/TRANSFERS: Bed Mobility/Transfers Bed Mobility: Supine to Sit: Maximum Assist;x2 People;Assist with B LE;Assist with Trunk Bed Mobility: Sit to Supine: Maximum Assist;x2 People;Assist with B LE;Assist with Trunk End Of Activity Status: In Bed;Nursing Notified;Instructed Patient to Request Assist with Mobility;Instructed Patient to Use Call Light (bed alarm on) BALANCE: Balance Sitting Balance: Static Sitting Balance;2 UE Support;Minimal Assist;Maximal Assist (variable) ACTIVITY/EXERCISE: Activity / Exercise Sit Edge Of Bed: 12 minutes Sit Edge Of Bed Assist: Variable;Minimal Assist;Maximum Assist Comments: Patient tolerated sitting edge of bed for ~12 minutes. Patient very lethargic this date, unable to consistently keep eyes open. Patient requires variable min-maximal assist to achieve and maintain upright sitting posture in midline. EDUCATION: Education Persons Educated: Patient Patient Barriers To Learning: Cognitive Deficits;Decreased Alertness (increased time to respond) Interventions: Repetition of Instructions Teaching Methods: Verbal Instruction Patient Response: Verbalized Understanding;More Instruction Required Topics: Plan/Goals of PT Interventions;Mobility Progression;Safety Awareness;Up with Assist Only;Importance of Increasing Activity;Positioning;Recommend Continued Therapy ASSESSMENT/PROGRESS: Assessment/Progress Impaired Mobility Due To: Decreased Strength;Impaired Balance;Cognitive Deficits ;Safety Concerns;Decreased Activity Tolerance Assessment/Progress: Should Improve w/ Continued PT AM-PAC 6 Clicks Basic Mobility Inpatient Turning from your back to your side while in a flat bed without using bed rails : Total Moving from lying on your back to sitting on the side of a flatbed without using bedrails : Total Moving to and from a bed to a chair (including a wheelchair): Total Standing up from a chair using your arms (e.g. wheelchair, or bedside chair): Total To walk in hospital room: Total Climbing 3-5 steps with a railing: Total Raw Score: 6 Standardized (T-scale) Score: 16.59 Basic Mobility [facility] 0-100%: 100 [facility] G Code Modifier for Basic Mobility: CN GOALS: Goals Goal Formulation: With Patient Time For Goal Achievement: 5 days, To, 7 days Pt Will Go Supine To/From Sit: w/ Minimal Assist Pt Will Transfer Sit to Stand: w/ Minimal Assist Pt Will Achieve Sitting Balance: Static Sitting Balance, Dynamic Sitting Balance , No UE Support, Minimal Assist PLAN: Plan Treatment Interventions: Mobility Training;Strengthening;Balance Activities; Coordination Training;Endurance Training;Neuromuscular Reeducation Plan Frequency: 5 Days per Week Comments: Progress sitting edge of bed balance. Attempt sit to stand transfer as able RECOMMENDATIONS: PT Discharge Recommendations: Inpatient Setting Equipment Recommendations: Too early to be determined Therapist: Yesenia Yoon PT Date: 03/18/2017 * Sharyn Rutledge - 03/18/2017 9:38 AM INTERVENTIONIST OCCUPATIONAL THERAPY PROGRESS NOTE Patient Name: Naren Mayfield Room/Bed: KQ7514/01 Admitting Diagnosis: subarachnoid hemorrhage Subarachnoid bleed (HCC) Mobility Progressive Mobility Level: Sit on edge of bed Level of Assistance: Assist X2 Assistive Device: None Time Tolerated: 11-30 minutes Activity Limited By: Fatigue Subjective Pertinent Dx per Physician: 51 y.o. male with PMH of HLD, HTN, renal failure, dialysis, and diabetes presenting from OSH after being at dialysis 03/09 when he became acutely unresponsive. CT was done at OSH and demonstrated SAH and a possible MCA aneurysm. Patient was then transferred to for further care and management. Precautions: Falls Pain / Complaints: Patient demonstrates no signs of pain Comments: Patient in bed at start and end of session with alarm set, restraints in place and RN at bedside. Objective Psychosocial Status: Willing and Cooperative to Participate Persons Present: PT (OT student) ADL's Where Assessed: Edge of Bed Grooming Assist: Maximum Assist Grooming Deficits: Wash/Dry Face Functional Transfer Assist: Maximum Assist (x2) Comment: Patient required maximum assist of 2 for supine to sit. Tolerated sitting EOB for 12 minutes starting with maximum assist progressing to minimal assist at times. Patient with increased fatigue this date requiring verbal cues to stay alert and participate in grooming. Patient required maximum assist for grooming. Returned to supine with maximum assist of 2. Activity Tolerance Endurance: 3/5 Tolerates 25-30 Minutes Exercise w/Multiple Rests Sitting Balance: 1+/5 Supports Self w/>50% Effort UsingUE, Requires Therapist Assistance Cognition Overall Cognitive Status: Impaired Expression: Increased Time for Expression Problem Solving: Decreased Judgment/Safety Attention: Uable to Sustain level of Alertness for Therapy Education Persons Educated: Patient/Family Teaching Methods: Verbal Instruction Patient Response: More Instruction Required Topics: Role of OT, Goals for Therapy Goal Formulation: With Patient Assessment Assessment: Decreased ADL Status;Decreased Safe/Judg during ADL;Decreased Endurance;Decreased Self-Care Trans;Decreased High-Level ADLs Prognosis: Good;w/Cont OT s/p Acute Discharge Goal Formulation: Pt/family AM-PAC 6 Clicks Daily Activity Inpatient Putting on and taking off regular lower body clothes?: Total Bathing (Including washing, rinsing, drying): Total Toileting, which includes using toilet, bedpan, or urinal: Total Putting on and taking off regular upper body clothing: Total Taking care of personal grooming such as brushing teeth: A Lot Eating meals?: Total Daily Activity Raw Score: 7 Standardized (t-scale) score: 20.13 CMS 0-100% Score: 92.44 CMS G Code Modifier: CM Plan Treatment Interventions: ADL Retraining;Functional Transfer Training;Endurance Training;Patient/Family Training;Equipment Evaluation/Education;Compensatory Technique Education OT Frequency: 5x/week Next session: Co-treat one more visit with PT for sitting EOB. Stand if safe. ADL Goals Patient Will Perform Grooming: in Chair, w/ Stand By Assist Functional Transfer Goals Pt Will Transfer To Bedside Commode: w/ Minimum Assist OT Discharge Recommendations OT Discharge Recommendations: Inpatient Setting Equipment Recommendations: Too early to be determined Therapist: MIRNA Westfall/Omar [id number] Date: 03/18/2017 * Jeancarlos Menendez MD - 03/18/2017 7:54 AM INTERVENTIONIST Formatting of this note may be different from the original. Neuroscience Critical Care Progress Note Naren Mayfield Admission Date: 03/09/2017 LOS: 9 days ASSESSMENT/PLAN Patient Active Problem List Diagnosis Date Noted IVH (intraventricular hemorrhage) ([facility]) 03/09/2017 Intraparenchymal hematoma of brain ([facility]) 03/09/2017 Subarachnoid bleed ([facility]) 03/09/2017 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[facility]) 03/09/2017 Added automatically from request for surgery [id number] Naren Mayfieldis a 51 y.o.malewith PMH of HLD, HTN, renal failure, dialysis, and diabetes presenting from OSH after being at dialysis 03/09when he became acutely unresponsive. CT was done at OSH and demonstrated SAH and a possible MCA aneurysm. Patient was then transferred to for further care and management. Hospital and ICU course: 03/09: Admit NEICU. CTA. Angiogram 03/10: To OR for clipping, emergent return to OR due to epidural bleed kept intubated, hemicraniectomy 03/11: Dialysis, remains intubated. 03/12: Sheaths to be d/c'd today corpak placed. wean trial today 03/13: MS change, vasospasms on CTA 03/14: MS improved, PLEDs on VEEG 03/15: Extubated, VEEG stopped 03/16: Attempting to wean sedation 03/17: Face shield for breathing trouble, Pulm to assist with left lower lobe effusion Neuro: IPH rt temporal lobe, SAH rt frontotemporal lobe, epidural bleed, s/p right hemicraniectomy Escobar and Moore Grade (on admission): 4 Modified Stone Grade (on admission): 3 Evidence of hydrocephalus:No EVD at: N/A Sodium Goal:135-145 - 03/09 CTA Head: 1. Large saccular aneurysm projecting laterally from the right MCA bifurcation measuring up to 1.5 cm in maximum diameter. No significant change in surrounding right anterior temporal parenchymal hematoma as well as scattered right convexity subarachnoid hemorrhage. Small amount of layering blood products are noted within the occipital horn of the left lateral ventricle. No progressive ventricular distention to suggest hydrocephalus. Moderate nonspecific white matter disease, likely due to chronic microvascular ischemia. 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 - 03/10 S/p Clipping and craniectomy - 03/13 CTA head: 1. Mild increased smooth narrowing of the intracranial arterial vasculature, most notably within the A1 segments, consistent with mild vasospasm. No high-grade intracranial arterial stenosis is identified. 2. 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 3. Increased conspicuity of moderate sized infarct/cytotoxic edema within the anterior right temporal lobe. 4. Persistent mild transcranial herniation at the right pterional craniectomy site with improving intracranial mass effect. 5. Improving localized subarachnoid hemorrhage within the right sylvian fissure.6. Bony thinning and probable dehiscence of the right jugular bulb sigmoid plate. - 03/13 CT perfusion: 1. Scattered small and moderate sized mismatch perfusion defects within the bilateral cerebral and cerebellar hemispheres, likely related to aforementioned vasospasm. 2. Moderate-sized matched perfusion defect within the anterior right temporal lobe, consistent with completed infarct. This is underestimated on the quantitative RAPID software. -03/14 VEEG- Right PLEDs, severe diffuse slowing -03/15 VEEG- Right PLEDs, severe diffuse slowing Extubated. Follows commands and able to speak, Left face droop, weakness in left leg - UDS + amphetamines on admission - SBP Goal 130-180 to help with vasospasms - Nimodipine 99pet5mcw - Continue Keppra 1500mg daily after dialysis - TCDs Daily - Neuro-ICU monitoring, neurochecks q 1 hrs Sedation/Pain Management: Yes -ICU delirium - Precedex starterd overnight-will try and come off - Fentanyl PRN - Seroquel BID 50mg - Haldol prn - Delirium protocol Cardiac: HTN, HLD - SBP goal: 130-180 - MAP goal > 65 - EKG with SR, LVH - 03/11 Restart BACK TUFTER minoxidil and metoprolol BID - 03/11 ECHO EF 55% - 03/13 Stop minoxidil and metoprolol Respiratory: Pleural effusion Date of Intubation: 03/09/17 Date of extubation: 03/15/17 Reason: Airway protection - OSH CXR with near complete opacification of left lung, likely pleural fluid. CXR at slightly improved - 03/10 CXR: Large left pleural effusion and left lung atelectasis. Slight progression of right basilar atelectasis. Cardiomegaly. - PaO2 goal >100, Spo2 goal >95%, PCO2 goal 35-40 torr, chest physiotherapy, bronchotherapy, PD& V q 6 hrs - Pulmonary team consulted for plural effusion - 1.7L removed from pleural effusion 03/14 - Bloody and exudative fluid - Cytology pending - Pleural effusion remains- Pulmonary consulted - Pulmonary toilet/physio GI: - Feeding: tube feeds novasource renal 40ml/hr water bolus 30ml q4 - neurosurgery bowel regimen, ensure daily BM -Speech therapy Heme: - assess for coagulopathy, maintain platelets above 100k, INR <1.5 - TEG did not identify any decreased clotting problems ID: - Tmax 37.8 - WBC 8.6 - aim for normothermia, Temp <38.3 celsius, normothermia protocol if febrile Renal: ESRDon dialysis - Renal consult - Aim for normovolemia - K+ 4.2, Na 138 - dialysis today - Do not want to lower bp by pulling too much fluid as at risk for vasospasm. Map goal of >80 during dialysis Intake/Output Summary (Last 24 hours) at 03/18/17 0754 Last data filed at 03/18/17 0700 Gross per 24 hour Intake 1166.5 ml Output 0 ml Net 1166.5 ml Endocrine: DM -03/12 BG on chem 151- will start accuchecks x5 daily with SSI - 03/12 A1C-5.2 - Blood glucose goal 100-180mg/dl FEN: - IVF: No maintenance fluid, - Magnesium goal >2.0, i-Jarred goal > 1.0, Potassium goal >4.0 mEq/L Prophylaxis Review: A) GI:[id number] B) Lines:2 peripheral lines and Right arterial line C) Urinary Catheter:No D) Antibiotic Usage:No E) VTE:SCDs F) Isolation:NA G)Seizures:Keppra I) Restraints: Patient assessed for need for restraints. Disposition/Family:NEICU Primary service:NSG Consults: NEICU, Renal, Pulmonary __ SUBJECTIVE Naren Mayfield is a 51 y.o. male. Overnight Events: patient agitated and given haldol and placed on precidex overnight. Patient is able to follow commands and move left leg more today than previous days. OBJECTIVE Vital Signs: Last Filed Vital Signs: 24 Hour Range BP: 200/88 (03/17 1100) ABP: 186/71 (03/18 0700) Temp: 37.4 C (99.3 F) (03/18 0400) Pulse: 79 (03/18 0700) Respirations: 16 PER MINUTE (03/18 700) SpO2: 94 % (03/18 700) O2 Delivery: Face Shield (03/18 700) BP: (138-200)/(60-89) ABP: (144-216)/(52-72) Temp: [36.7 C (98 F)-37.8 C (100 F)] Pulse: [66-83] Respirations: [5 PER MINUTE-25 PER MINUTE] SpO2: [92 %-98 %] O2 Delivery: Face Shield Intensity Pain Scale 0-10 (Pain 1): (not recorded) Vitals: 03/12/17 1603 03/14/17 0200 03/14/17 0730 Weight: 108.8 kg (239 lb 13.8 oz) 116.2 kg (256 lb 2.8 oz) 115.9 kg (255 lb 8.2 oz) Scheduled Meds: atorvastatin (LIPITOR) tablet 10 mg 10 mg Oral QHS bisacodyl (DULCOLAX) rectal suppository 10 mg 10 mg Rectal QDAY docusate (COLACE) oral solution 100 mg 100 mg Feeding Tube BID heparin (porcine) PF syringe 5,000 Units 5,000 Units Subcutaneous Q8H insulin aspart (NOVOLOG FLEXPEN) injection PEN 0-7 Units 0-7 Units Subcutaneous 5 X Day levETIRAcetam (KEPPRA) oral solution 1,500 mg 1,500 mg Feeding Tube QDAY milk of magnesia (CONC) oral suspension 10 mL 10 mL Feeding Tube QDAY niMODipine (NYMALIZE) 3 mg/ mL solution 30 mg 30 mg Per OG Tube Q2H nystatin (MYCOSTATIN) oral suspension 500,000 Units 500,000 Units Swish & Swallow QID QUEtiapine (SEROQUEL) tablet 50 mg 50 mg Oral BID senna/docusate (SENOKOT-S) solution 10 mL 10 mL Feeding Tube BID Continuous Infusions: dexmedetomidine (PRECEDEX) 400 mcg/NS 100 ml IV drip 0.4 mcg/kg/hr ( 0636) PRN and Respiratory Meds:acetaminophen Q4H PRN, albuterol 0.5% Q4H PRN, fentaNYL citrate PF Q1H PRN, haloperidol Q6H PRN, hydrALAZINE Q6H PRN, ipratropium bromide Q4H PRN, labetalol (NORMODYNE; TRANDATE) injection Q10 MIN PRN, methylcellulose PRN, ondansetron Q6H PRN, pancrelipase 20,000 Units/ sodium bicarbonate 650 mg(#) PRN (Production Aide from Rx), sodium chloride 0.9% (NS) IP Dialysis PRN, sodium chloride 0.9% (NS) IP Dialysis PRN, sodium chloride 0.9 % (NS) IP Dialysis PRN Critical Care Vitals: ICP Monitoring: Hemodynamics/Oxycalcs: BP 200/88 (BP Source: Arm, Right) | Pulse 79 | Temp 37.4 C (99.3 F) | Ht 172.7 cm (68") | Wt 115.9 kg (255 lb 8.2 oz) | SpO2 94% | BMI 38.85 kg/m2 Intake/Output Summary: (Last 24 hours) Intake/Output Summary (Last 24 hours) at 03/18/17 0754 Last data filed at 03/18/17 0700 Gross per 24 hour Intake 1166.5 ml Output 0 ml Net 1166.5 ml Stool Occurrence: 1 Physical Exam: Blood pressure 200/88, pulse 79, temperature 37.4 C (99.3 F), height 172.7 cm (68"), weight 115.9 kg (255 lb 8.2 oz), SpO2 94 %. General appearance: well-developed Neurologic: [place] coma score: E: 2 M: 6 V: 1 Pupil exam: Size: 3 Reactivity: brisk - Corneal reflex: R - present L - present -Left face droop - Cough: weak - Gag reflex: present RUE: Strength: 5/5, moves on command gave a thumbs up on command RLE Strength: 5/5, moves on command LUE: Strength: 5/5, moves on command LLE: Strength: 3/5, able to roll leg and wiggled toes today, unable to lift off bed Lungs: diminished breath sounds on left base with crackles, clear on right Pulmonary: face shield 35% O2 Heart: regular rate and rhythm, S1, S2 normal Abdomen: soft, non-tender. Skull in abdomen, no palpable hematoma Extremities: extremities normal, atraumatic, no cyanosis, minimal edema Skin: Skin color, texture, turgor normal. No rashes or lesions Lab Review: Pertinent labs reviewed Medications: atorvastatin (LIPITOR) tablet 10 mg 10 mg Oral QHS bisacodyl (DULCOLAX) rectal suppository 10 mg 10 mg Rectal QDAY docusate (COLACE) oral solution 100 mg 100 mg Feeding Tube BID heparin (porcine) PF syringe 5,000 Units 5,000 Units Subcutaneous Q8H insulin aspart (NOVOLOG FLEXPEN) injection PEN 0-7 Units 0-7 Units Subcutaneous 5 X Day levETIRAcetam (KEPPRA) oral solution 1,500 mg 1,500 mg Feeding Tube QDAY milk of magnesia (CONC) oral suspension 10 mL 10 mL Feeding Tube QDAY niMODipine (NYMALIZE) 3 mg/ mL solution 30 mg 30 mg Per OG Tube Q2H nystatin (MYCOSTATIN) oral suspension 500,000 Units 500,000 Units Swish & Swallow QID QUEtiapine (SEROQUEL) tablet 50 mg 50 mg Oral BID senna/docusate (SENOKOT-S) solution 10 mL 10 mL Feeding Tube BID Point of Care Testing: (Last 24 hours): Glucose: (!) 152 (03/18/17 0340) POC Glucose (Download): (!) 162 (03/18/17 0341) Radiology and Other Diagnostic Procedures Review: Reviewed and discussed above. Jeancarlos Menendez MD Date: 03/18/[phone] Associated attestation - Derrell Bowers MD - 03/18/2017 12:46 PM INTERVENTIONIST Formatting of this note may be different from the original. ATTESTATION I have seen, personally fully evaluated, and discussed patient with Dr Menendez and the NEICU team. I agree with the objective findings and agree with the plan of care as documented by the resident with the exceptions noted. The patient is critically ill with SAH s/p clipping, EDH s/p evacuation, ESRD c/b metabolic acidosis, pleural effusion and hypoxemia. I spent 40 minutes ( excluding time spent performing or supervising any procedures) providing and personally directing critical care services, including reviewing imaging and laboratory results. Staff name: Derrell Bowers MD Date: 03/18/2017 Neuro: Left hemiparesis including face, rest of cranial nerves intact - SBP goal 130-200 mmHg - LEV 1500 mg qd - seroquel 50 mg qhs, percedex gtt for agitation to be weaned off Resp: - face tent - exudative effusion s/p thoracentesis, no indication for abx per pulmonary Cardiac: - keep MAP > 80 mmHg ID: - cultures negative - WBC 8.6 - no abx Endocrine: - low dose SSI Renal: - dialysis today, will touch base with renal to avoid large negative fluid balance, perhaps dialyze more frequently with smaller UF GI: - tube feeds at goal - speech therapy Lines: R art line, left AV fistula, flexicele * Nir Timmons MD - 03/17/2017 1:45 PM INTERVENTIONIST Formatting of this note may be different from the original. Renal Progress Note Name: Naren Mayfield Today's Date: 03/17/2017 Admission Date: 03/09/2017 LOS: 8 days Assessment and Plan Principal Problem: 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HCC) Active Problems: IVH (intraventricular hemorrhage) (HCC) Intraparenchymal hematoma of brain (HCC) Subarachnoid bleed (HCC) Naren Mayfield is a 51 y.o. male with Subarachnoid hemorrhage s/p clipping ESRD on dialysis Large pleural effusion; awaiting thoracentesis HTN: off cardene drip, hypertension better today Hyperphosphatemia: moderate, should improve with dialysis Gap Metabolic Acidosis - not sure why this has developed. No ketones or lactate. - could be an issue with dialysis access with inefficient clearance but no clear evidence for that. - will plan to dialyze Saturday and Saturday which should help to correct it. Plan Dialysis tomorrow and Saturday for both volume and acidosis. Plan for 4 L fluid removal if he can tolerate. Nir Timmons MD Pager [phone] Subjective Naren Mayfield is a 51 y.o. male. Sleepy today. BP readings are better. Medications MEDS atorvastatin 10 mg Oral QHS bisacodyl 10 mg Rectal QDAY chlorhexidine gluconate 15 mL Swish & Spit BID(8-20) docusate 100 mg Feeding Tube BID heparin (porcine) 5,000 Units Subcutaneous Q8H insulin aspart 0-7 Units Subcutaneous 5 X Day levETIRAcetam 1,500 mg Feeding Tube QDAY lidocaine NOW milk of magnesia (CONC) 10 mL Feeding Tube QDAY niMODipine 30 mg Per OG Tube Q2H nystatin 500,000 Units Swish & Swallow QID QUEtiapine 50 mg Oral BID senna/docusate 10 mL Feeding Tube BID IV MEDS Prn acetaminophen Q4H PRN 650 mg at 03/17/17 0401, albuterol 0.5% Q4H PRN, fentaNYL citrate PF Q1H PRN 50 mcg at 12/10/17 0502, haloperidol Q6H PRN 2.5 mg at 03/17/17 0909, hydrALAZINE Q6H PRN 20 mg at 03/17/17 1207, ipratropium bromide Q4H PRN, labetalol (NORMODYNE; TRANDATE) injection Q10 MIN PRN 20 mg at 03/17/17 1135, methylcellulose PRN 1 drop at 03/16/17 1351, ondansetron Q6H PRN , pancrelipase 20,000 Units/ sodium bicarbonate 650 mg(#) PRN (Production Aide from Rx) , sodium chloride 0.9% (NS) IP Dialysis PRN, sodium chloride 0.9% (NS) IP Dialysis PRN Stopped at 03/16/17 1420, sodium chloride 0.9% (NS) IP Dialysis PRN , sodium chloride 0.9% (NS) IP Dialysis PRN, sodium chloride 0.9% (NS) IP Dialysis PRN Stopped at 03/14/17 0731 Physical Exam Vital Signs: Last Filed In 24 Hours Vital Signs: 24 Hour Range BP: 138/60 (03/17 1000) Temp: 38.1 C (100.5 F) (03/17 0400) Pulse: 79 (03/17 1000) Respirations: 23 PER MINUTE (03/17 1000) SpO2: 92 % (03/17 1000) O2 Delivery: Face Shield (03/17 0900) SpO2 Pulse: 79 (03/17 1000) BP: (138-219)/(60-127) Temp: [36.9 C (98.4 F)-38.1 C (100.5 F)] Pulse: [72-95] Respirations: [14 PER MINUTE-29 PER MINUTE] SpO2: [90 %-99 %] O2 Delivery: Face Shield Intake/Output Summary (Last 24 hours) at 03/17/17 1345 Last data filed at 03/17/17 0800 Gross per 24 hour Intake 1195 ml Output 4330 ml Net -3135 ml Vitals: 03/12/17 1603 03/14/17 0200 03/14/17 0730 Weight: 108.8 kg (239 lb 13.8 oz) 116.2 kg (256 lb 2.8 oz) 115.9 kg (255 lb 8.2 oz) Gen: sleepy today CV: no JVD, S1 and S2 normal, no rubs, murmurs or gallops Pulm: decreased breath sounds at bases GI: BS+ x4, non-tender to palpation Neuro: sedated Ext: no edema Skin: no rash Labs Recent Labs 03/15/17 0330 03/16/17 0507 03/17/17 0413 NA 137 137 137 K 4.4 4.5 4.9 CL 99 97* 97* CO2 20* 14* 19* GAP 18* 26* 21* BUN 56* 83* 59* CR 6.29* 8.61* 6.74* GLU 200* 149* 142* CA 9.1 9.8 9.5 MG 2.2 2.4 2.4 PO4 7.5* 9.4* 6.6* Recent Labs 03/16/17 1410 03/17/17 0413 WBC 8.9 8.1 HGB 8.1* 8.5* HCT 24.8* 25.9* PLTCT 194 196 Estimated Creatinine Clearance: 16.4 mL/min (based on Cr of 6.74). Vitals: 03/12/17 1603 03/14/17 0200 03/14/17 0730 Weight: 108.8 kg (239 lb 13.8 oz) 116.2 kg (256 lb 2.8 oz) 115.9 kg (255 lb 8.2 oz) Recent Labs 03/16/17 1905 03/17/17 0527 PHART 7.43 7.32* PO2ART 74* 108* Nir Timmons MD Pager [phone] * Jeancarlos Menendez MD - 03/17/2017 12:05 PM INTERVENTIONIST Formatting of this note may be different from the original. Neuroscience Critical Care Progress Note Naren Mayfield Admission Date: 03/09/2017 LOS: 8 days ASSESSMENT/PLAN Patient Active Problem List Diagnosis Date Noted IVH (intraventricular hemorrhage) ([facility]) 03/09/2017 Intraparenchymal hematoma of brain (HCC) 03/09/2017 Subarachnoid bleed (HCC) 03/09/2017 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HCC) 03/09/2017 Added automatically from request for surgery [id number] Naren Mayfieldis a 51 y.o.malewith PMH of HLD, HTN, renal failure, dialysis, and diabetes presenting from OSH after being at dialysis 03/09when he became acutely unresponsive. CT was done at OSH and demonstrated SAH and a possible MCA aneurysm. Patient was then transferred to for further care and management. Hospital and ICU course: 03/09: Admit NEICU. CTA. Angiogram 03/10: To OR for clipping, emergent return to OR due to epidural bleed kept intubated, hemicraniectomy 03/11: Dialysis, remains intubated. 03/12: Sheaths to be d/c'd today corpak placed. wean trial today 03/13: MS change, vasospasms on CTA 03/14: MS improved, PLEDs on VEEG 03/15: Extubated, VEEG stopped 03/16: Attempting to wean sedation 03/17: Face shield for breathing trouble, Pulm to assist with left lower lobe effusion Neuro: IPH rt temporal lobe, SAH rt frontotemporal lobe, epidural bleed, s/p right hemicraniectomy Escobar and Moore Grade (on admission): 4 Modified Stone Grade (on admission): 3 Evidence of hydrocephalus:No EVD at: N/A Sodium Goal:135-145 - 03/09 CTA Head: 1. Large saccular aneurysm projecting laterally from the right MCA bifurcation measuring up to 1.5 cm in maximum diameter. No significant change in surrounding right anterior temporal parenchymal hematoma as well as scattered right convexity subarachnoid hemorrhage. Small amount of layering blood products are noted within the occipital horn of the left lateral ventricle. No progressive ventricular distention to suggest hydrocephalus. Moderate nonspecific white matter disease, likely due to chronic microvascular ischemia. 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 - 03/10 S/p Clipping and craniectomy - 03/13 CTA head: 1. Mild increased smooth narrowing of the intracranial arterial vasculature, most notably within the A1 segments, consistent with mild vasospasm. No high-grade intracranial arterial stenosis is identified. 2. 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 3. Increased conspicuity of moderate sized infarct/cytotoxic edema within the anterior right temporal lobe. 4. Persistent mild transcranial herniation at the right pterional craniectomy site with improving intracranial mass effect. 5. Improving localized subarachnoid hemorrhage within the right sylvian fissure.6. Bony thinning and probable dehiscence of the right jugular bulb sigmoid plate. - 03/13 CT perfusion: 1. Scattered small and moderate sized mismatch perfusion defects within the bilateral cerebral and cerebellar hemispheres, likely related to aforementioned vasospasm. 2. Moderate-sized matched perfusion defect within the anterior right temporal lobe, consistent with completed infarct. This is underestimated on the quantitative RAPID software. -03/14 VEEG- Right PLEDs, severe diffuse slowing -03/15 VEEG- Right PLEDs, severe diffuse slowing Extubated. Follows commands and able to speak, Left face droop, weakness in left leg - UDS + amphetamines on admission - SBP Goal 130-180 to help with vasospasms - Nimodipine [id number] - Continue Keppra 1500mg daily after dialysis - TCDs Daily - Neuro-ICU monitoring, neurochecks q 1 hrs Sedation/Pain Management: Yes - Precedex stopped - Fentanyl PRN - Assess for delirium daily - Seroquel BID 50mg - Haldol prn Cardiac: HTN, HLD - SBP goal: 130-180 - MAP goal > 65 - EKG with SR, LVH - 03/11 Restart BACK TUFTER minoxidil and metoprolol BID - 03/11 ECHO EF 55% - 03/13 Stop minoxidil and metoprolol Respiratory: Pleural effusion Date of Intubation: 03/09/17 Date of extubation: 03/15/17 Reason: Airway protection - OSH CXR with near complete opacification of left lung, likely pleural fluid. CXR at [facility] slightly improved - 03/10 CXR: Large left pleural effusion and left lung atelectasis. Slight progression of right basilar atelectasis. Cardiomegaly. - PaO2 goal >100, Spo2 goal >95%, PCO2 goal 35-40 torr, chest physiotherapy, bronchotherapy, PD& V q 6 hrs - Pulmonary team consulted for plural effusion - 1.7L removed from pleural effusion 03/14 - Bloody and exudative fluid - Cytology pending - Pleural effusion remains will re-engage Pulm team to evaluate for drainage. - Pulmonary toilet GI: - Feeding: tube feeds novasource renal 40ml/hr water bolus 30ml q4 - neurosurgery bowel regimen, ensure daily BM -Speech therapy -check amylase/lipase today bruising on right flank Heme: - assess for coagulopathy, maintain platelets above 100k, INR <1.5 - TEG did not identify any decreased clotting problems ID: - Tmax 38.1 - WBC 8.1 - aim for normothermia, Temp <38.3 celsius, normothermia protocol if febrile - mcknight culture if fever and would start broad antibiotic coverage Renal: ESRDon dialysis - Renal consult - Cunningham in place - Aim for normovolemia - K+ 3.8, Na 135 - dialysis per renal: Saturday Intake/Output Summary (Last 24 hours) at 03/17/17 1205 Last data filed at 03/17/17 0800 Gross per 24 hour Intake 1295 ml Output 4330 ml Net -3035 ml Endocrine: DM -03/12 BG on chem 151- will start accuchecks x5 daily with SSI - 03/12 A1C pending - Blood glucose goal 100-180mg/dl FEN: - IVF: No maintenance fluid, - Magnesium goal >2.0, i-Jarred goal > 1.0, Potassium goal >4.0 mEq/L Prophylaxis Review: A) GI:[id number] B) Lines:2 peripheral lines, place Right arterial line today C) Urinary Catheter:No D) Antibiotic Usage:No E) VTE:SCDs F) Isolation:NA G)Seizures:Keppra I) Restraints: Patient assessed for need for restraints. Disposition/Family:NEICU Primary service:NSG Consults: NEICU, Renal, Pulmonary __ SUBJECTIVE Naren Mayfield is a 51 y.o. male. Overnight Events: Patient with trouble breathing yesterday evening. He was placed on face shield. Thoracentesis attempted, but unsuccessful overnight. Patient with no complaints this morning. OBJECTIVE Vital Signs: Last Filed Vital Signs: 24 Hour Range BP: 138/60 (03/17 1000) Temp: 38.1 C (100.5 F) (03/17 0400) Pulse: 79 (03/17 1000) Respirations: 23 PER MINUTE (03/17 1000) SpO2: 92 % (03/17 1000) O2 Delivery: Face Shield (03/17 0900) BP: (138-219)/(60-127) Temp: [36.9 C (98.4 F)-38.1 C (100.5 F)] Pulse: [72-95] Respirations: [14 PER MINUTE-32 PER MINUTE] SpO2: [90 %-99 %] O2 Delivery: Face Shield Intensity Pain Scale 0-10 (Pain 1): (not recorded) Vitals: 03/12/17 1603 03/14/17 0200 03/14/17 0730 Weight: 108.8 kg (239 lb 13.8 oz) 116.2 kg (256 lb 2.8 oz) 115.9 kg (255 lb 8.2 oz) Scheduled Meds: atorvastatin (LIPITOR) tablet 10 mg 10 mg Oral QHS bisacodyl (DULCOLAX) rectal suppository 10 mg 10 mg Rectal QDAY chlorhexidine gluconate (PERIDEX) 0.12 % solution 15 mL 15 mL Swish & Spit BID(8 -20) docusate (COLACE) oral solution 100 mg 100 mg Feeding Tube BID heparin (porcine) PF syringe 5,000 Units 5,000 Units Subcutaneous Q8H insulin aspart (NOVOLOG FLEXPEN) injection PEN 0-7 Units 0-7 Units Subcutaneous 5 X Day levETIRAcetam (KEPPRA) oral solution 1,500 mg 1,500 mg Feeding Tube QDAY LIDOCAINE HCL 10 MG/ML (1 %) IJ SOLN (Cabinet Override) NOW milk of magnesia (CONC) oral suspension 10 mL 10 mL Feeding Tube QDAY niMODipine (NYMALIZE) 3 mg/ mL solution 30 mg 30 mg Per OG Tube Q2H nystatin (MYCOSTATIN) oral suspension 500,000 Units 500,000 Units Swish & Swallow QID QUEtiapine (SEROQUEL) tablet 50 mg 50 mg Oral BID senna/docusate (SENOKOT-S) solution 10 mL 10 mL Feeding Tube BID Continuous Infusions: PRN and Respiratory Meds:acetaminophen Q4H PRN, albuterol 0.5% Q4H PRN, fentaNYL citrate PF Q1H PRN, haloperidol Q6H PRN, hydrALAZINE Q6H PRN, ipratropium bromide Q4H PRN, labetalol (NORMODYNE; TRANDATE) injection Q10 MIN PRN, methylcellulose PRN, ondansetron Q6H PRN, pancrelipase 20,000 Units/ sodium bicarbonate 650 mg(#) PRN (Production Aide from Rx), sodium chloride 0.9% (NS) IP Dialysis PRN, sodium chloride 0.9% (NS) IP Dialysis PRN, sodium chloride 0.9 % (NS) IP Dialysis PRN, sodium chloride 0.9% (NS) IP Dialysis PRN, sodium chloride 0.9% (NS) IP Dialysis PRN Critical Care Vitals: ICP Monitoring: Hemodynamics/Oxycalcs: BP 138/60 | Pulse 79 | Temp (!) 38.1 C (100.5 F) | Ht 172.7 cm (68") | Wt 115.9 kg (255 lb 8.2 oz) | SpO2 92% | BMI 38.85 kg/m2 Intake/Output Summary: (Last 24 hours) Intake/Output Summary (Last 24 hours) at 03/17/17 1205 Last data filed at 03/17/17 0800 Gross per 24 hour Intake 1295 ml Output 4330 ml Net -3035 ml Stool Occurrence: 1 Physical Exam: Blood pressure 138/60, pulse 79, temperature (!) 38.1 C (100.5 F), height 172.7 cm (68"), weight 115.9 kg (255 lb 8.2 oz), SpO2 92 %. General appearance: well-developed Neurologic: [place] coma score: E: 2 M: 6 V: 1 Pupil exam: Size: 3 Reactivity: brisk - Corneal reflex: R - present L - present -Left face droop - Cough: weak - Gag reflex: present RUE: Strength: 5/5, moves on command gave a thumbs up on command RLE Strength: 5/5, moves on command LUE: Strength: 5/5, moves on command LLE: Strength: 2/5, flexes to painful stimulation Lungs: diminished breath sounds on left base with crackles, clear on right Pulmonary: face shield 30% O2 Heart: regular rate and rhythm, S1, S2 normal Abdomen: soft, non-tender. Skull in abdomen, no palpable hematoma Extremities: extremities normal, atraumatic, no cyanosis, minimal edema Skin: Skin color, texture, turgor normal. No rashes or lesions Lab Review: Pertinent labs reviewed Medications: atorvastatin (LIPITOR) tablet 10 mg 10 mg Oral QHS bisacodyl (DULCOLAX) rectal suppository 10 mg 10 mg Rectal QDAY chlorhexidine gluconate (PERIDEX) 0.12 % solution 15 mL 15 mL Swish & Spit BID(8 -20) docusate (COLACE) oral solution 100 mg 100 mg Feeding Tube BID heparin (porcine) PF syringe 5,000 Units 5,000 Units Subcutaneous Q8H insulin aspart (NOVOLOG FLEXPEN) injection PEN 0-7 Units 0-7 Units Subcutaneous 5 X Day levETIRAcetam (KEPPRA) oral solution 1,500 mg 1,500 mg Feeding Tube QDAY LIDOCAINE HCL 10 MG/ML (1 %) IJ SOLN (Cabinet Override) NOW milk of magnesia (CONC) oral suspension 10 mL 10 mL Feeding Tube QDAY niMODipine (NYMALIZE) 3 mg/ mL solution 30 mg 30 mg Per OG Tube Q2H nystatin (MYCOSTATIN) oral suspension 500,000 Units 500,000 Units Swish & Swallow QID QUEtiapine (SEROQUEL) tablet 50 mg 50 mg Oral BID senna/docusate (SENOKOT-S) solution 10 mL 10 mL Feeding Tube BID Point of Care Testing: (Last 24 hours): FSBS (Manual): (!) 127 (03/16/17 1719) Glucose: (!) 142 (03/17/17 0413) POC Glucose (Download): (!) 147 (03/17/17 0907) Radiology and Other Diagnostic Procedures Review: Reviewed and discussed above. Jeancarlos Menendez MD Date: 03/17/[phone] Associated attestation - Bakari Wu MD - 03/17/2017 9:11 PM INTERVENTIONIST Formatting of this note may be different from the original. ATTESTATION This note is associated with the NEICU team note dated today. Date of Service: 03/17/2017 51 year old male with past medical history significant for aneurysm rupture. Mental status is good, he has agitation, we are trying to control with seroquel , I envision seroquel 25-50 at night. Precedex has been used in the past and was just placed on the patient. There is possible cerebral vasospasm - observe closely Possible [employer] infection His agitation is also partly driven by respiratory distress and acidosis. He has hypertension that is markedly volume responsive, he will have 4L taken off in HD tomorrow. He develops gap acidosis rapidly. He has a large left-sided pleural effusion which has been present likely for over 1 year as he has been sleeping in a kneeling position and on presentation his lung was collapsed entirely. He may still have more possible reexpansion. I have a strong concern that this bloody effusion is related to cancer. Cytology is pending. He may need more aggressive treatment if there is loculation present: full thoracostomy tube and potential tPA when no longer a risk of intracranial bleeding. I have seen, personally fully evaluated, and discussed patient with the NEICU team. I agree with the objective findings and agree with the plan of care as documented by the resident with the exceptions noted. The patient is critically ill with impending respiratory failure and large left pleural effusion, potential malignancy, intracranial hemorrhage, and cerebral aneurysm rupture. Active hospital problems include: Principal Problem: 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HCC) Active Problems: IVH (intraventricular hemorrhage) (HCC) Intraparenchymal hematoma of brain (HCC) Subarachnoid bleed (HCC) I spent 60 minutes (excluding time spent performing or supervising any procedures) providing and personally directing critical care services including -review of serial neurologic, hemodynamic, respiratory, telemetry, laboratory and imaging data -management of fluids/electrolytes, antibiotics, vasoactive medications, gas exchange/mechanical ventilation, sepsis protocol, ICU prophylaxis, and ICU core measures -pain/sedation/delirium management -medication review and management -organization and coordination of care with patient (or surrogate), ICU team and consulting services. -directing the formulation of the overall plan of care outlined below. Dispo: This patient is critically ill with dysfunction of at least one organ system and is at risk for life threatening deterioration necessitating complex medical decision making and ongoing provision of ICU care. Staff name: Bakari Wu MD Date: 03/17/2017 * Calista Espana MD - 03/17/2017 8:01 AM INTERVENTIONIST Formatting of this note may be different from the original. Neurosurgery Progress Note SUBJECTIVE: Some respiratory distress overnight. Attempted chest tube placement. Planning for CT chest today. OBJECTIVE: Vital Signs: 24 Hour Range BP: (155-219)/(66-127) Temp: [36.9 C (98.4 F)-38.1 C (100.5 F)] Pulse: [71-95] Respirations: [14 PER MINUTE-32 PER MINUTE] SpO2: [90 %-99 %] O2 Delivery: Face Shield Face mask in place Awake on exam Oriented to self, conversational FC briskly RUE,RLE, LUE, questionable movement of LLE but not reproducible Surgical fontanelle soft but full Incisions c/d/i ASSESSMENT/PLAN: 51 y.o. male s/p craniotomy x 2 for repair of right MCA aneurysm 03/10/2017 Active Hospital Problems Diagnosis 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HCC) Added automatically from request for surgery [id number] IVH (intraventricular hemorrhage) (HCC) Intraparenchymal hematoma of brain (HCC) Subarachnoid bleed (HCC) Continue monitoring for seizure activity - renal keppra dosing Mildly elevated temperatures, WBC 8.1, continue to monitor closely for signs of infection CT chest, read pending Nimotop Continue SBP 130-180 Hgb 8.5 Dialysis daily SQ heparin Keppra TCDs 0.9, 2.0 PT/OT - inpatient Prophylaxis: A)GI: PPI B) Lines: Yes; Central Line; Indication: Hemodialysis/Plasmapheresis; Type: Implanted subcutaneous access device C) Urinary Catheter: No D) Antibiotic Usage: No E) VTE: Pharmacological prophylaxis; SQ Heparin and Mechanical prophylaxis; Sequential compression device F) Restraints: Patient assessed for need for restraints. Calista Espana MD Please call [phone] with any questions. * Nir Timmons MD - 03/16/2017 5:19 PM INTERVENTIONIST Formatting of this note may be different from the original. Renal Progress Note Name: Naren Mayfield Today's Date: 03/16/2017 Admission Date: 03/09/2017 LOS: 7 days Assessment and Plan Principal Problem: 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HCC) Active Problems: IVH (intraventricular hemorrhage) (HCC) Intraparenchymal hematoma of brain (HCC) Subarachnoid bleed (HCC) Naren Mayfield is a 51 y.o. male with Subarachnoid hemorrhage s/p clipping ESRD on dialysis Large pleural effusion; awaiting thoracentesis HTN: off cardene drip, but pretty hypertensive while on dialysis today. SBP > 200 Hyperphosphatemia: moderat, should improve with dialysis Plan Dialysis today Plan for 3.5 L fluid removal; he did not want to remove more due to concern for cramping. I examined him on dialysis We will consider an extra dialysis treatment on Saturday for volume removal if HTN control remains difficult. Hard to interpret the weights but may be as much as 20 lbs over recent dry weight if what is listed in the computer is accurate. Nir Timmons MD Pager [phone] Subjective Naren Mayfield is a 51 y.o. male. I examined him on dialysis. He is a little agitated while on treatment. Answers questions appropriately Medications MEDS atorvastatin 10 mg Oral QHS bisacodyl 10 mg Rectal QDAY chlorhexidine gluconate 15 mL Swish & Spit BID(8-20) docusate 100 mg Feeding Tube BID heparin (porcine) 5,000 Units Subcutaneous Q8H insulin aspart 0-7 Units Subcutaneous 5 X Day levETIRAcetam (KEPPRA) IVPB 1,500 mg Intravenous QDAY(12) milk of magnesia (CONC) 10 mL Feeding Tube QDAY niMODipine 30 mg Per OG Tube Q2H nystatin 500,000 Units Swish & Swallow QID QUEtiapine 100 mg Oral BID [START ON 03/17/2017] QUEtiapine 50 mg Oral BID senna/docusate 10 mL Feeding Tube BID IV MEDS Prn acetaminophen Q4H PRN 650 mg at 03/16/17 1200, albuterol 0.5% Q4H PRN, fentaNYL citrate PF Q1H PRN 50 mcg at 03/16/17 1321, haloperidol Q6H PRN 2.5 mg at 03/16/17 1512, hydrALAZINE Q6H PRN 10 mg at 03/16/17 1705, ipratropium bromide Q4H PRN, labetalol (NORMODYNE; TRANDATE) injection Q10 MIN PRN, methylcellulose PRN 1 drop at 12/09/17 1351, ondansetron Q6H PRN, pancrelipase 20,000 Units/ sodium bicarbonate 650 mg(#) PRN (Production Aide from Rx), sodium chloride 0.9% (NS) IP Dialysis PRN, sodium chloride 0.9% (NS) IP Dialysis PRN Stopped at 03/16/17 1420, sodium chloride 0.9% (NS) IP Dialysis PRN, sodium chloride 0.9% (NS) IP Dialysis PRN, sodium chloride 0.9% (NS) IP Dialysis PRN Stopped at 03/14/17 0731 Physical Exam Vital Signs: Last Filed In 24 Hours Vital Signs: 24 Hour Range BP: 206/83 (03/160) Temp: 37 C (98.6 F) (03/16 1400) Pulse: 80 (03/16 1700) Respirations: 28 PER MINUTE (03/16 1700) SpO2: 94 % (03/16 1700) O2 Delivery: Nasal Cannula (03/16 1700) SpO2 Pulse: 80 (03/16 1700) BP: (145-219)/(63-127) Temp: [36.9 C (98.4 F)-37.6 C (99.7 F)] Pulse: [67-86] Respirations: [15 PER MINUTE-32 PER MINUTE] SpO2: [86 %-98 %] O2 Delivery: Nasal Cannula Intake/Output Summary (Last 24 hours) at 03/16/17 1719 Last data filed at 03/16/17 1515 Gross per 24 hour Intake 1566.26 ml Output 0 ml Net 1566.26 ml Vitals: 03/12/17 1603 03/14/17 0200 03/14/17 0730 Weight: 108.8 kg (239 lb 13.8 oz) 116.2 kg (256 lb 2.8 oz) 115.9 kg (255 lb 8.2 oz) Gen: alert, a little agitate CV: no JVD, S1 and S2 normal, no rubs, murmurs or gallops Pulm: decreased breath sounds at bases GI: BS+ x4, non-tender to palpation Neuro: sedated Ext: no edema Skin: no rash Labs Recent Labs 03/14/17 0315 03/15/17 0330 03/16/17 0507 NA 134* 137 137 K 4.8 4.4 4.5 CL 97* 99 97* CO2 19* 20* 14* GAP 18* 18* 26* BUN 63* 56* 83* CR 8.63* 6.29* 8.61* GLU 155* 200* 149* CA 9.1 9.1 9.8 ALBUMIN 3.6 -- -- MG 2.7* 2.2 2.4 PO4 9.1* 7.5* 9.4* Recent Labs 03/14/17 0315 03/16/17 1410 WBC 11.0 8.9 HGB 8.2* 8.1* HCT 24.7* 24.8* PLTCT 215 194 AST 21 -- ALT 3* -- ALKPHOS 71 -- Estimated Creatinine Clearance: 12.8 mL/min (based on Cr of 8.61). Vitals: 03/12/17 1603 03/14/17 0200 03/14/17 0730 Weight: 108.8 kg (239 lb 13.8 oz) 116.2 kg (256 lb 2.8 oz) 115.9 kg (255 lb 8.2 oz) Recent Labs 03/15/17 0330 03/16/17 0507 PHART 7.32* 7.28* PO2ART 145* 92 Nir Timmons MD Pager [phone] * Calista Espana MD - 03/16/2017 8:11 AM INTERVENTIONIST Formatting of this note may be different from the original. Neurosurgery Progress Note SUBJECTIVE: Doing well this AM. Extubated yesterday. OBJECTIVE: Vital Signs: 24 Hour Range BP: (145-209)/(63-99) ABP: (102-207)/(65-82) Temp: [36.8 C (98.2 F)-37.6 C (99.7 F)] Pulse: [59-86] Respirations: [13 PER MINUTE-28 PER MINUTE] SpO2: [86 %-99 %] O2 Delivery: Nasal Cannula Extubated. Awake on exam Oriented x4 FC briskly RUE,RLE, LUE, questionable movement of LLE but not reproducible Surgical fontanelle soft Incisions c/d/i ASSESSMENT/PLAN: 51 y.o. male s/p craniotomy x 2 for repair of right MCA aneurysm 03/10/2017 Active Hospital Problems Diagnosis 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HCC) Added automatically from request for surgery [id number] IVH (intraventricular hemorrhage) (HCC) Intraparenchymal hematoma of brain (HCC) Subarachnoid bleed (HCC) Continue monitoring for seizure activity - renal keppra dosing Nimotop Continue SBP 130-180 Hgb pending Dialysis daily SQ heparin Keppra No recent TCDs, continue now that EEG is removed PT/OT - inpatient Prophylaxis: A)GI: PPI B) Lines: Yes; Central Line; Indication: Hemodialysis/Plasmapheresis; Type: Implanted subcutaneous access device C) Urinary Catheter: No D) Antibiotic Usage: No E) VTE: Pharmacological prophylaxis; SQ Heparin and Mechanical prophylaxis; Sequential compression device F) Restraints: Patient assessed for need for restraints. Calista Espana MD Please call [phone] with any questions. * Bakari Wu - 03/16/2017 6:35 AM INTERVENTIONIST Formatting of this note may be different from the original. Neuroscience Critical Care Progress Note Naren Chaparro Admission Date: 03/09/2017 LOS: 7 days ATTESTATION This note is associated with the NEICU team note dated today. Date of Service: 03/16/2017 51 year old male with past medical history significant for ruptured cerebral aneurysm. He is awake and answers questions. oriented to hospital, name, and year LLE weakness Metabolic acidosis, needs dialysis today Some Kussmaul's Left pleural effusion will perform another thoracentesis tomorrow if not improved after the 3.5L HD today I have seen, personally fully evaluated, and discussed patient with Dr. Velasquez and the NEICU team. I agree with the objective findings and agree with the plan of care as documented by the resident with the exceptions noted. The patient is critically ill with aneurysm rupture. Active hospital problems include: Principal Problem: 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HCC) Active Problems: IVH (intraventricular hemorrhage) (HCC) Intraparenchymal hematoma of brain (HCC) Subarachnoid bleed (HCC) I spent 65 minutes (excluding time spent performing or supervising any procedures) providing and personally directing critical care services including -review of serial neurologic, hemodynamic, respiratory, telemetry, laboratory and imaging data -management of fluids/electrolytes, antibiotics, vasoactive medications, gas exchange/mechanical ventilation, sepsis protocol, ICU prophylaxis, and ICU core measures -pain/sedation/delirium management -medication review and management -organization and coordination of care with patient (or surrogate), ICU team and consulting services. -directing the formulation of the overall plan of care outlined below. Dispo: This patient is critically ill with dysfunction of at least one organ system and is at risk for life threatening deterioration necessitating complex medical decision making and ongoing provision of ICU care. Staff name: Bakari Wu MD Date: 03/16/2017 ASSESSMENT/PLAN Patient Active Problem List Diagnosis Date Noted IVH (intraventricular hemorrhage) (HCC) 03/09/2017 Intraparenchymal hematoma of brain (HCC) 03/09/2017 Subarachnoid bleed (HCC) 03/09/2017 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HCC) 03/09/2017 Added automatically from request for surgery [id number] Naren Dickens a 51 y.o.malewith PMH of HLD, HTN, renal failure, dialysis, and diabetes presenting from OSH after being at dialysis 03/09when he became acutely unresponsive. CT was done at OSH and demonstrated SAH and a possible MCA aneurysm. Patient was then transferred to for further care and management. Hospital and ICU course: 03/09: Admit NEICU. CTA. Angiogram 03/10: To OR for clipping, emergent return to OR due to epidural bleed kept intubated, hemicraniectomy 03/11: Dialysis, remains intubated. 03/12: Sheaths to be d/c'd today corpak placed. wean trial today 03/13: MS change, vasospasms on CTA 03/14: MS improved, PLEDs on VEEG 03/15: Extubated, VEEG stopped 03/16: Attempting to wean sedation Neuro: IPH rt temporal lobe, SAH rt frontotemporal lobe, epidural bleed, s/p right hemicraniectomy Escobar and Moore Grade (on admission): 4 Modified Stone Grade (on admission): 3 Evidence of hydrocephalus:No EVD at: N/A Sodium Goal:135-145 - 03/09 CTA Head: 1. Large saccular aneurysm projecting laterally from the right MCA bifurcation measuring up to 1.5 cm in maximum diameter. No significant change in surrounding right anterior temporal parenchymal hematoma as well as scattered right convexity subarachnoid hemorrhage. Small amount of layering blood products are noted within the occipital horn of the left lateral ventricle. No progressive ventricular distention to suggest hydrocephalus. Moderate nonspecific white matter disease, likely due to chronic microvascular ischemia. 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 - 03/10 S/p Clipping and craniectomy - 03/13 CTA head: 1. Mild increased smooth narrowing of the intracranial arterial vasculature, most notably within the A1 segments, consistent with mild vasospasm. No high-grade intracranial arterial stenosis is identified. 2. 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 3. Increased conspicuity of moderate sized infarct/cytotoxic edema within the anterior right temporal lobe. 4. Persistent mild transcranial herniation at the right pterional craniectomy site with improving intracranial mass effect. 5. Improving localized subarachnoid hemorrhage within the right sylvian fissure.6. Bony thinning and probable dehiscence of the right jugular bulb sigmoid plate. - 03/13 CT perfusion: 1. Scattered small and moderate sized mismatch perfusion defects within the bilateral cerebral and cerebellar hemispheres, likely related to aforementioned vasospasm. 2. Moderate-sized matched perfusion defect within the anterior right temporal lobe, consistent with completed infarct. This is underestimated on the quantitative RAPID software. -03/14 VEEG- Right PLEDs, severe diffuse slowing -03/15 VEEG- Right PLEDs, severe diffuse slowing Extubated. Follows commands and able to speak, Left face droop, weakness on left side, - UDS + amphetamines on admission - SBP Goal 130-200 to help with vasospasms - Nimodipine [id number] - Continue Keppra 1500mg daily after dialysis - TCDs Daily - Neuro-ICU monitoring, neurochecks q 1 hrs Sedation/Pain Management: Yes - Precedex stopped - Fentanyl PRN - Assess for delirium daily - Added seroquel BID 100mg, will decrease to 50mg 03/17 - Haldol prn, will check EKG Cardiac: HTN, HLD - SBP goal: 130-200 - MAP goal > 65 - EKG with SR, LVH - 03/11 Restart BACK TUFTER minoxidil and metoprolol BID - 03/11 ECHO EF 55% - 03/13 Stop minoxidil and metoprolol Respiratory: Pleural effusion Date of Intubation: 03/09/17 Date of extubation: 03/15/17 Reason: Airway protection - OSH CXR with near complete opacification of left lung, likely pleural fluid. CXR at [facility] slightly improved - 03/10 CXR: Large left pleural effusion and left lung atelectasis. Slight progression of right basilar atelectasis. Cardiomegaly. - PaO2 goal >100, Spo2 goal >95%, PCO2 goal 35-40 torr, chest physiotherapy, bronchotherapy, PD& V q 6 hrs - Pulmonary team consulted for plural effusion - ABG improved today with continued metabolic acidosis - 1.7L removed from pleural effusion - Bloody and exudative fluid - Pleural effusion not all gone and will need to be monitored as unclear cause at this time - Will consider additional drainage in the future GI: - Feeding: tube feeds novasource renal 40ml/hr water bolus 30ml q4 - neurosurgery bowel regimen, ensure daily BM -Speech reevaluate Heme: - assess for coagulopathy, maintain platelets above 100k, INR <1.5 - TEG did not identify any decreased clotting problems ID: - Tmax 37.9 - WBC 11 - aim for normothermia, Temp <38.3 celsius, normothermia protocol if febrile Renal: ESRDon dialysis - Renal consult - Cunningham in place - Aim for normovolemia - K+ 4.4, Na 137 - dialysis daily per renal Intake/Output Summary (Last 24 hours) at 03/16/17 0635 Last data filed at 03/16/17 0500 Gross per 24 hour Intake 1246.23 ml Output 0 ml Net 1246.23 ml Endocrine: DM -03/12 BG on chem 151- will start accuchecks x5 daily with SSI - 03/12 A1C pending - Blood glucose goal 100-180mg/dl FEN: - IVF: No maintenance fluid, - Magnesium goal >2.0, i-Jarred goal > 1.0, Potassium goal >4.0 mEq/L Prophylaxis Review: A) GI:[id number] B) Lines:Yes; Arterial Line; Indication: Continuous BP monitoring; Location: Radial C) Urinary Catheter:Yes; Retain cunningham due to: Need for accurate Intake and Output D) Antibiotic Usage:No E) VTE:SCDs F) Isolation:NA G)Seizures:Keppra I) Restraints: Patient assessed for need for restraints. Disposition/Family:NEICU Primary service:NSG Consults: NEICU, Renal, Pulmonary __ SUBJECTIVE Naren Mayfield is a 51 y.o. male. Overnight Events: No events. Patient remains agitated, required precedex overnight. OBJECTIVE Vital Signs: Last Filed Vital Signs: 24 Hour Range BP: 185/86 (03/16 0500) ABP: 207/70 (03/15 1200) Temp: 36.9 C (98.4 F) (03/16 0400) Pulse: 72 (03/16 0500) Respirations: 27 PER MINUTE (03/16 050) SpO2: 96 % (03/16 500) O2 Delivery: Nasal Cannula (03/16 500) BP: (145-209)/(63-99) ABP: (102-207)/(58-82) Temp: [36.8 C (98.2 F)-37.6 C (99.7 F)] Pulse: [59-86] Respirations: [13 PER MINUTE-28 PER MINUTE] SpO2: [90 %-100 %] O2 Delivery: Nasal Cannula Intensity Pain Scale 0-10 (Pain 1): (not recorded) Vitals: 03/12/17 1603 03/14/17 0200 03/14/17 0730 Weight: 108.8 kg (239 lb 13.8 oz) 116.2 kg (256 lb 2.8 oz) 115.9 kg (255 lb 8.2 oz) Artificial airway: Endotracheal Tube Ventilator/ Respiratory Therapy: Yes: Vent weaning trial: Per protocol Lines: Arterial Line, Peripheral Line and AV fistula Left ARM Drains: Cunningham Catheter, Nasoduodenal tube, Claude-Cedeño Drain: #1 Scheduled Meds: atorvastatin (LIPITOR) tablet 10 mg 10 mg Oral QHS bisacodyl (DULCOLAX) rectal suppository 10 mg 10 mg Rectal QDAY chlorhexidine gluconate (PERIDEX) 0.12 % solution 15 mL 15 mL Swish & Spit BID(8 -20) docusate (COLACE) oral solution 100 mg 100 mg Feeding Tube BID famotidine (PEPCID) injection 20 mg 20 mg Intravenous QHS heparin (porcine) PF syringe 5,000 Units 5,000 Units Subcutaneous Q8H insulin aspart (NOVOLOG FLEXPEN) injection PEN 0-7 Units 0-7 Units Subcutaneous 5 X Day levETIRAcetam in NaCl (iso-os) (KEPPRA) IVPB (premade) 1,500 mg 100 mL 1,500 mg Intravenous QDAY(12) milk of magnesia (CONC) oral suspension 10 mL 10 mL Feeding Tube QDAY niMODipine (NYMALIZE) 3 mg/ mL solution 30 mg 30 mg Per OG Tube Q2H nystatin (MYCOSTATIN) oral suspension 500,000 Units 500,000 Units Swish & Swallow QID QUEtiapine (SEROQUEL) tablet 100 mg 100 mg Oral BID senna/docusate (SENOKOT-S) solution 10 mL 10 mL Feeding Tube BID Continuous Infusions: dexmedetomidine (PRECEDEX) 400 mcg/NS 100 ml IV drip 0.3 mcg/kg/hr ( 0342) PRN and Respiratory Meds:acetaminophen Q4H PRN, albuterol 0.5% Q4H PRN, fentaNYL citrate PF Q1H PRN, haloperidol Q6H PRN, ipratropium bromide Q4H PRN, labetalol (NORMODYNE; TRANDATE) injection Q10 MIN PRN, methylcellulose PRN, ondansetron Q6H PRN, pancrelipase 20,000 Units/ sodium bicarbonate 650 mg(#) PRN (Production Aide from Rx), sodium chloride 0.9% (NS) IP Dialysis PRN, sodium chloride 0.9% (NS) IP Dialysis PRN, sodium chloride 0.9% (NS) IP Dialysis PRN, sodium chloride 0.9% (NS) IP Dialysis PRN, sodium chloride 0.9% (NS) IP Dialysis PRN Critical Care Vitals: ICP Monitoring: Hemodynamics/Oxycalcs: BP 185/86 (BP Source: Arm, Right) | Pulse 72 | Temp 36.9 C (98.4 F) | Ht 172.7 cm (68") | Wt 115.9 kg (255 lb 8.2 oz) | SpO2 96% | BMI 38.85 kg/m2 Intake/Output Summary: (Last 24 hours) Intake/Output Summary (Last 24 hours) at 03/16/17 0635 Last data filed at 03/16/17 0500 Gross per 24 hour Intake 1246.23 ml Output 0 ml Net 1246.23 ml Stool Occurrence: 1 Physical Exam: Blood pressure 185/86, pulse 72, temperature 36.9 C (98.4 F), height 172.7 cm (68"), weight 115.9 kg (255 lb 8.2 oz), SpO2 96 %. General appearance: well-developed Neurologic: [place] coma score: E: 2 M: 6 V: 1 Pupil exam: Size: 3 Reactivity: brisk - Corneal reflex: R - present L - present -Left face droop - Cough: present - Gag reflex: present RUE: Strength: 5/5, moves on command gave a thumbs up on command RLE Strength: 5/5, moves on command LUE: Strength: 2/5, flexes to painful stimulation LLE: Strength: 2/5, flexes to painful stimulation Lungs: diminished breath sounds on left base with crackles, clear on right Pulmonary: Extubated Heart: regular rate and rhythm, S1, S2 normal Abdomen: soft, non-tender. Skull in abdomen, no palpable hematoma Extremities: extremities normal, atraumatic, no cyanosis, minimal edema Skin: Skin color, texture, turgor normal. No rashes or lesions Lab Review: Pertinent labs reviewed Medications: atorvastatin (LIPITOR) tablet 10 mg 10 mg Oral QHS bisacodyl (DULCOLAX) rectal suppository 10 mg 10 mg Rectal QDAY chlorhexidine gluconate (PERIDEX) 0.12 % solution 15 mL 15 mL Swish & Spit BID(8 -20) docusate (COLACE) oral solution 100 mg 100 mg Feeding Tube BID famotidine (PEPCID) injection 20 mg 20 mg Intravenous QHS heparin (porcine) PF syringe 5,000 Units 5,000 Units Subcutaneous Q8H insulin aspart (NOVOLOG FLEXPEN) injection PEN 0-7 Units 0-7 Units Subcutaneous 5 X Day levETIRAcetam in NaCl (iso-os) (KEPPRA) IVPB (premade) 1,500 mg 100 mL 1,500 mg Intravenous QDAY(12) milk of magnesia (CONC) oral suspension 10 mL 10 mL Feeding Tube QDAY niMODipine (NYMALIZE) 3 mg/ mL solution 30 mg 30 mg Per OG Tube Q2H nystatin (MYCOSTATIN) oral suspension 500,000 Units 500,000 Units Swish & Swallow QID QUEtiapine (SEROQUEL) tablet 100 mg 100 mg Oral BID senna/docusate (SENOKOT-S) solution 10 mL 10 mL Feeding Tube BID Point of Care Testing: (Last 24 hours): POC Glucose (Download): (!) 162 (03/16/17 9344) Radiology and Other Diagnostic Procedures Review: Reviewed and discussed above. Phi Velasquez MD Date: 03/16/[phone] * Portia Johnson RD - 03/15/2017 2:18 PM INTERVENTIONIST CLINICAL NUTRITION Clinical Nutrition Follow-Up Summary Nutrition Assessment of Patient: Malnutrition Assessment: Does not meet criteria Current Oral Intake: NPO Estimated Calorie Needs: 1850-2220kcal (25-30kcal/kg desired wt 74kg) Estimated Protein Needs: 111-133g (1.5-1.8g/kg desired wt 74kf) Oral Diet Order: NPO Intake (calories) Daily Average : 1373 kilocalories (3 day EN/Prosource ave; 74 % min goal) Intake (protein) Daily Average : 99 grams (3 day EN/Prosource ave; 89% min goal) Current EN Order: Novasource Renal @ 40ml/hr with 30ml water bolus [id number] and 3 packs Prosource per day. This provides 2100 kcal, 132 g protien and 871ml free water. at goal. Comment: 51 yo M admitted 03/09 from OSH after being acutely unresponsive during dialysis. CT was done at OSH and CT demonstrated large lesion and a possible MCA aneurysm. PMH includes HLD, HTN, ESRD on dialysis, and diabetes. Upon arrival to , pt was intubated. 03/10 s/p clipping and craniectomy. Off propofol 03/12, extubated today. Pt with corpak tip in stomach. EN began 12:00 on 03/12 with Novasource Renal. Currently held for extubation but to restart today per RN. Sister available this afternoon, says pt eating well BACK TUFTER and eating whatever he wanted though he should follow a renal/diabetic diet. Pt does his own cooking and dry wt stable per sister estimating around 240-260#. Last dialysis 03/14. Nonpitting edema in, no pressure injuries noted. BM 03/15 ( loose). Current weight is 255 lb pre HD 05/15. Has been tolerating EN fine per RN. Recommendation: When medically able, restart Novasource Renal @ 20 ml/hr with goal of 40 ml/hr and 3 packs Prosource per day (fluids per primary team). If pt mental status allows for safe swallow eval and progression of diet, recommend combination renal dialysis and 60g/meal consistent carb diabetic diet order with texture per GAMEWE[employer] OPERATOR. Intervention / Plan: obtained subjective data monitor En tolerance/provision monitor for swallow eval and ability to advance diet per GAMEWELL OPERATOR monitor wt trends, labs, meds, GI status Nutrition Diagnosis: Nutrition Diagnosis: Altered GI function Etiology: respiratory/swallowing deficits with intubation/extubation s/p SAH Signs & Symptoms: NPO with EN feeds Goals: EN tolerated and meeting >75% of nutritional needs Time Frame: Within 72 Hours Status: Met;new goal established EN tolerated and meeting >85% of nutritional needs Time Frame: Throughout Stay Portia Johnson RD * Saman Joshi - 03/15/2017 2:07 PM INTERVENTIONIST Patient disconnected from Video EEG Monitoring without complications. * Yesenia Yoon, PT - 03/15/2017 1:30 PM INTERVENTIONIST PHYSICAL THERAPY ASSESSMENT MOBILITY: Progressive Mobility Level: Sit on edge of bed Level of Assistance: Assist X2 Assistive Device: None Time Tolerated: 11-30 minutes Activity Limited By: Weakness;Fatigue SUBJECTIVE: Subjective Significant hospital events: 51 y.o. male with PMH of HLD, HTN, renal failure, dialysis, and diabetes presenting from OSH after being at dialysis 03/09 when he became acutely unresponsive. CT was done at OSH and demonstrated SAH and a possible MCA aneurysm. Patient was then transferred to for further care and management. Mental / Cognitive Status: Alert;Cooperative;Inconsistent with Command Following Persons Present: OT Pain: Patient has no complaint of pain Pain Interventions: Patient agrees to participate in therapy;Patient assisted into position of comfort Comments: patient on VEEG Ambulation Assist: Independent Mobility in Community with Device Patient Owned Equipment: Single Point Cane Home Situation: Lives with Family (sister) Type of Home: House Entry Stairs: 3-5 Stairs In-Home Stairs: Able to Live on One Level Comments: Previously independent with ADLs. Uses single point cane when feeling weak. ROM: ROM UE ROM: WFL LE ROM: WFL STRENGTH: Strength Overall Strength: Generalized Weakness POSTURE/NEURO: Posture / Neurological Head Control: Independent Posture: Forward Head;Rounded Shoulders BED MOBILITY/TRANSFERS: Bed Mobility/Transfers Bed Mobility: Supine to Sit: Maximum Assist;x2 People;Assist with B LE;Assist with Trunk Bed Mobility: Sit to Supine: Maximum Assist;x2 People;Assist with B LE;Assist with Trunk End Of Activity Status: In Bed;Nursing Notified;Instructed Patient to Request Assist with Mobility;Instructed Patient to Use Call Light BALANCE: Balance Sitting Balance: Static Sitting Balance;Dynamic Sitting Balance;1 UE Support; Maximal Assist ACTIVITY/EXERCISE: Activity / Exercise Sit Edge Of Bed: 12 minutes Sit Edge Of Bed Assist: Maximum Assist EDUCATION: Education Persons Educated: Patient Patient Barriers To Learning: Cognitive Deficits (increased time to respond) Interventions: Repetition of Instructions Teaching Methods: Verbal Instruction Patient Response: Verbalized Understanding;More Instruction Required Topics: Plan/Goals of PT Interventions;Mobility Progression;Safety Awareness;Up with Assist Only;Importance of Increasing Activity;Positioning;Recommend Continued Therapy ASSESSMENT/PROGRESS: Assessment/Progress Impaired Mobility Due To: Decreased Strength;Impaired Balance;Cognitive Deficits ;Safety Concerns;Decreased Activity Tolerance Assessment/Progress: Should Improve w/ Continued PT AM-PAC 6 Clicks Basic Mobility Inpatient Turning from your back to your side while in a flat bed without using bed rails : Total Moving from lying on your back to sitting on the side of a flatbed without using bedrails : Total Moving to and from a bed to a chair (including a wheelchair): Total Standing up from a chair using your arms (e.g. wheelchair, or bedside chair): Total To walk in hospital room: Total Climbing 3-5 steps with a railing: Total Raw Score: 6 Standardized (T-scale) Score: 16.59 Basic Mobility CMS 0-100%: 100 CMS G Code Modifier for Basic Mobility: CN GOALS: Goals Goal Formulation: With Patient Time For Goal Achievement: 5 days, To, 7 days Pt Will Go Supine To/From Sit: w/ Minimal Assist Pt Will Transfer Sit to Stand: w/ Minimal Assist Pt Will Achieve Sitting Balance: Static Sitting Balance, Dynamic Sitting Balance , No UE Support, Minimal Assist PLAN: Plan Treatment Interventions: Mobility Training;Strengthening;Balance Activities; Coordination Training;Endurance Training;Neuromuscular Reeducation Plan Frequency: 5 Days per Week Comments: Progress sitting edge of bed balance. Attempt sit to stand transfer as able RECOMMENDATIONS: PT Discharge Recommendations: Inpatient Setting Equipment Recommendations: Too early to be determined Therapist: Yesenia Yoon PT, DPT Date: 03/15/2017 G-Codes: Mobility G8978 Current Status: 60-79% G8979 Goal Status: 20-39% Based on above evaluation and clinical judgment. * Sharyn Rutledge - 03/15/2017 1:30 PM INTERVENTIONIST OCCUPATIONAL THERAPY ASSESSMENT NOTE Patient Name: Naren Mayfield Room/Bed: [place] [address] Admitting Diagnosis: subarachnoid hemorrhage Subarachnoid bleed (HCC) Mobility Progressive Mobility Level: Sit on edge of bed Level of Assistance: Assist X2 Assistive Device: None Time Tolerated: 11-30 minutes Activity Limited By: Weakness;Fatigue Subjective Pertinent Dx per Physician: 51 y.o. male with PMH of HLD, HTN, renal failure, dialysis, and diabetes presenting from OSH after being at dialysis 03/09 when he became acutely unresponsive. CT was done at OSH and demonstrated SAH and a possible MCA aneurysm. Patient was then transferred to for further care and management. Precautions: Falls (VEEG) Pain / Complaints: Patient agrees to participate in therapy Comments: Patient in bed at start and end of session with alarm set, restraints in place and RN aware of patient status. Objective Psychosocial Status: Willing and Cooperative to Participate Persons Present: PT;RN Home Living Type of Home: House Home Layout: Stairs to Enter w/ Rails Home Equipment: Cane Prior Function Level Of [place]: Independent with ADLs and functional transfers Lives With: Family Receives Help From: None Needed Homemaking Tasks: Driving Other Function Comments: Patient was driving himself to dialysis and using cane if feeling weak. ADL's Where Assessed: Standing at Sink Grooming Assist: Minimal Assist Grooming Deficits: Verbal Cueing;Wash/Dry Face LE Dressing Assist: Maximum Assist LE Dressing Deficits: Don/Doff R Sock;Don/Doff L Sock Functional Transfer Assist: Maximum Assist (x2) Comment: Patient required assist of 2 for supine to sit transfer. Patient required maximum assist-minimal assist of 1 for maintaining seated position. Patient performed grooming with minimal assistance and repeated verbal cues for safety within incisions. Activity Tolerance Endurance: 2/5 Tolerates 10-20 Minutes Exercise w/Multiple Rests Sitting Balance: 1+/5 Supports Self w/>50% Effort UsingUE, Requires Therapist Assistance Cognition Overall Cognitive Status: Impaired Expression: Increased Time for Expression Problem Solving: Decreased Judgment/Safety;Cueing to Sequence Task UE PROM Overall BUE PROM WNL: Yes UE AROM Coordination: Mild Delay Grasp: Bilateral Grasp Functional for Activity Education Persons Educated: Patient Barriers To Learning: Cognitive Deficits Teaching Methods: Verbal Instruction Patient Response: Verbalized Understanding Topics: Role of OT, Goals for Therapy;ADL Compensatory Techniques Goal Formulation: With Patient Assessment Assessment: Decreased ADL Status;Decreased UE ROM;Decreased UE Strength; Decreased Safe/Judg during ADL;Decreased Endurance;Decreased Self-Care Trans; Decreased High-Level ADLs Prognosis: Good;w/Cont OT s/p Acute Discharge Goal Formulation: Patient AM-PAC 6 Clicks Daily Activity Inpatient Putting on and taking off regular lower body clothes?: Total Bathing (Including washing, rinsing, drying): Total Toileting, which includes using toilet, bedpan, or urinal: Total Putting on and taking off regular upper body clothing: Total Taking care of personal grooming such as brushing teeth: A Lot Eating meals?: Total Daily Activity Raw Score: 7 Standardized (t-scale) score: 20.13 CMS 0-100% Score: 92.44 CMS G Code Modifier: CM G-Codes: Self-care G8987 Current Status: 80-99% Impairment G8988 Goal Status: 60-79% Impairment Based on above evaluation and clinical judgment. Plan Treatment Interventions: ADL Retraining;Functional Transfer Training;Endurance Training;Patient/Family Training;Equipment Evaluation/Education;Compensatory Technique Education OT Frequency: 5x/week Next session: EOB sitting or alfredo to chair if appropriate for ADLs ADL Goals Patient Will Perform Grooming: in Chair, w/ Stand By Assist Functional Transfer Goals Pt Will Transfer To Bedside Commode: w/ Minimum Assist OT Discharge Recommendations OT Discharge Recommendations: Inpatient Setting Equipment Recommendations: Too early to be determined Therapist: MIRNA Westfall/Omar [id number] Date: 03/15/2017 * Jeancarlos Menendez MD - 03/15/2017 1:01 PM INTERVENTIONIST Formatting of this note may be different from the original. Neuroscience Critical Care Progress Note Naren Mayfield Admission Date: 03/09/2017 LOS: 6 days ASSESSMENT/PLAN Patient Active Problem List Diagnosis Date Noted IVH (intraventricular hemorrhage) ([facility]) 03/09/2017 Intraparenchymal hematoma of brain (HCC) 03/09/2017 Subarachnoid bleed (HCC) 03/09/2017 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HCC) 03/09/2017 Added automatically from request for surgery [id number] Naren Dickens a 51 y.o.malewith PMH of HLD, HTN, renal failure, dialysis, and diabetes presenting from OSH after being at dialysis 03/09when he became acutely unresponsive. CT was done at OSH and demonstrated SAH and a possible MCA aneurysm. Patient was then transferred to for further care and management. Hospital and ICU course: 03/09: Admit NEICU. CTA. Angiogram 03/10: To OR for clipping, emergent return to OR due to epidural bleed kept intubated, hemicraniectomy 03/11: Dialysis, remains intubated. 03/12: Sheaths to be d/c'd today corpak placed. wean trial today 03/13: MS change, vasospasms on CTA 03/14: MS improved, PLEDs on VEEG 03/15: Extubated, VEEG stopped Neuro: IPH rt temporal lobe, SAH rt frontotemporal lobe, epidural bleed, s/p right hemicraniectomy Escobar and Moore Grade (on admission): 4 Modified Stone Grade (on admission): 3 Evidence of hydrocephalus:No EVD at: N/A Sodium Goal:135-145 - 03/09 CTA Head: 1. Large saccular aneurysm projecting laterally from the right MCA bifurcation measuring up to 1.5 cm in maximum diameter. No significant change in surrounding right anterior temporal parenchymal hematoma as well as scattered right convexity subarachnoid hemorrhage. Small amount of layering blood products are noted within the occipital horn of the left lateral ventricle. No progressive ventricular distention to suggest hydrocephalus. Moderate nonspecific white matter disease, likely due to chronic microvascular ischemia. 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 - 03/10 S/p Clipping and craniectomy - 03/13 CTA head: 1. Mild increased smooth narrowing of the intracranial arterial vasculature, most notably within the A1 segments, consistent with mild vasospasm. No high-grade intracranial arterial stenosis is identified. 2. 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 3. Increased conspicuity of moderate sized infarct/cytotoxic edema within the anterior right temporal lobe. 4. Persistent mild transcranial herniation at the right pterional craniectomy site with improving intracranial mass effect. 5. Improving localized subarachnoid hemorrhage within the right sylvian fissure.6. Bony thinning and probable dehiscence of the right jugular bulb sigmoid plate. - 03/13 CT perfusion: 1. Scattered small and moderate sized mismatch perfusion defects within the bilateral cerebral and cerebellar hemispheres, likely related to aforementioned vasospasm. 2. Moderate-sized matched perfusion defect within the anterior right temporal lobe, consistent with completed infarct. This is underestimated on the quantitative RAPID software. -03/14 VEEG- Right PLEDs, severe diffuse slowing -03/15 VEEG- Right PLEDs, severe diffuse slowing Extubated today. Follows commands and able to speak, Left face droop, weakness on left side, - UDS + amphetamines on admission - SBP Goal 130-160 to help with vasospasms - Nimodipine [id number] - Continue Keppra 1500mg daily after dialysis - Stop VEEG - Consider 1:1 fluid replacement - TCDs Daily - Neuro-ICU monitoring, neurochecks q 1 hrs Sedation/Pain Management: Yes - Precedex stopped - Fentanyl PRN - Assess for delirium daily Cardiac: HTN, HLD - SBP goal: 130-160 - MAP goal > 65 - phenylephrine drip to meet SBP goal - EKG with SR, LVH - 03/11 Restart BACK TUFTER minoxidil and metoprolol BID - 03/11 ECHO EF 55% - 03/13 Stop minoxidil and metoprolol Respiratory: Pleural effusion Date of Intubation: 03/09/17Reason: Airway protection - PS 450/40%/16/5 - Extubated 03/15 - OSH CXR with near complete opacification of left lung, likely pleural fluid. CXR at slightly improved - 03/10 CXR: Large left pleural effusion and left lung atelectasis. Slight progression of right basilar atelectasis. Cardiomegaly. - PaO2 goal >100, Spo2 goal >95%, PCO2 goal 35-40 torr, chest physiotherapy, bronchotherapy, PD& V q 6 hrs - Pulmonary team consulted for plural effusion - ABG improved today with continued metabolic acidosis - 1.7L removed from pleural effusion - Bloody and exudative fluid - Pleural effusion not all gone and will need to be monitored as unclear cause at this time GI: - Feeding: tube feeds novasource renal 40ml/hr water bolus 30ml q4 - neurosurgery bowel regimen, ensure daily BM -Speech reevaluate post intubation Heme: - Hgb 8.2, Plt 215 - assess for coagulopathy, maintain platelets above 100k, INR <1.5 - TEG did not identify any decreased clotting problems -Fibrinogen 193 03/14 ID: - Tmax 37.9 - WBC 11 - aim for normothermia, Temp <38.3 celsius, normothermia protocol if febrile Renal: ESRDon dialysis - Renal consult - Cunningham in place - Aim for normovolemia - K+ 4.4, Na 137 - dialysis daily per renal Intake/Output Summary (Last 24 hours) at 03/15/17 1301 Last data filed at 03/15/17 1100 Gross per 24 hour Intake 1461.94 ml Output 5000 ml Net -3538.06 ml Endocrine: DM -03/12 BG on chem 151- will start accuchecks x5 daily with SSI - 03/12 A1C pending - Blood glucose goal 100-180mg/dl FEN: - IVF: No maintenance fluid, - Magnesium goal >2.0, i-Jarred goal > 1.0, Potassium goal >4.0 mEq/L Prophylaxis Review: A) GI:[id number] B) Lines:Yes; Arterial Line; Indication: Continuous BP monitoring; Location: Radial C) Urinary Catheter:Yes; Retain cunningham due to: Need for accurate Intake and Output D) Antibiotic Usage:No E) VTE:SCDs F) Isolation:NA G)Seizures:Keppra I) Restraints: Patient assessed for need for restraints. Disposition/Family:NEICU Primary service:NSG Consults: NEICU, Renal, Pulmonary __ SUBJECTIVE Naren Mayfield is a 51 y.o. male. Overnight Events: no events overnight. Following commands with right side. Intubated and unable to speak. OBJECTIVE Vital Signs: Last Filed Vital Signs: 24 Hour Range ABP: 170/65 (03/15 1100) Temp: 37.2 C (99 F) (03/15 0800) Pulse: 75 (03/15 1100) Respirations: 18 PER MINUTE (03/15 1100) SpO2: 92 % (03/15 1100) O2 Delivery: Nasal Cannula (03/15 1100) ABP: (102-207)/(52-82) Temp: [37.2 C (99 F)-38.1 C (100.5 F)] Pulse: [59-90] Respirations: [0 PER MINUTE-28 PER MINUTE] SpO2: [92 %-100 %] O2 Delivery: Nasal Cannula Intensity Pain Scale 0-10 (Pain 1): (not recorded) Vitals: 03/12/17 1603 03/14/17 0200 03/14/17 0730 Weight: 108.8 kg (239 lb 13.8 oz) 116.2 kg (256 lb 2.8 oz) 115.9 kg (255 lb 8.2 oz) Artificial airway: Endotracheal Tube Ventilator/ Respiratory Therapy: Yes: Weaning readiness screen (RT Only):: Implement protocol Weaning readiness screen Met (RT Only):: Yes NIF: [-60 cm H2O] Weaning Minute Volume (L/min): [14.7 L/min] Weaning Tidal Vol (mL) (Calc.): [544 mL] $$ Vital Capacity (mL): [1446 ml] Weaning Respiratory Rate: [27 breaths/min] RSBI (Calculated): [50] FiO2 (Manual entry): [0.4] Spontaneous Breathing Trial (RT Only): Implement protocol Spontaneous Breathing Trial MET (RT Only): Yes $$ Extubation (RT only): Physician order Vent weaning trial: Per protocol Lines: Arterial Line, Peripheral Line and AV fistula Left ARM Drains: Cunningham Catheter, Nasoduodenal tube, Claude-Cedeño Drain: #1 Scheduled Meds: atorvastatin (LIPITOR) tablet 10 mg 10 mg Oral QHS bisacodyl (DULCOLAX) rectal suppository 10 mg 10 mg Rectal QDAY chlorhexidine gluconate (PERIDEX) 0.12 % solution 15 mL 15 mL Swish & Spit BID(8 -20) docusate (COLACE) oral solution 100 mg 100 mg Feeding Tube BID famotidine (PEPCID) injection 20 mg 20 mg Intravenous QHS heparin (porcine) PF syringe 5,000 Units 5,000 Units Subcutaneous Q8H insulin aspart (NOVOLOG FLEXPEN) injection PEN 0-7 Units 0-7 Units Subcutaneous 5 X Day levETIRAcetam in NaCl (iso-os) (KEPPRA) IVPB (premade) 1,500 mg 100 mL 1,500 mg Intravenous QDAY(12) milk of magnesia (CONC) oral suspension 10 mL 10 mL Feeding Tube QDAY niMODipine (NYMALIZE) 3 mg/ mL solution 30 mg 30 mg Per OG Tube Q2H nystatin (MYCOSTATIN) oral suspension 500,000 Units 500,000 Units Swish & Swallow QID senna/docusate (SENOKOT-S) solution 10 mL 10 mL Feeding Tube BID Continuous Infusions: dexmedetomidine (PRECEDEX) 400 mcg/NS 100 ml IV drip Stopped (03/15/17 0940 ) PRN and Respiratory Meds:acetaminophen Q4H PRN, albuterol 0.5% Q4H PRN, fentaNYL citrate PF Q1H PRN, ipratropium bromide Q4H PRN, labetalol (NORMODYNE; TRANDATE) injection Q1H PRN, ondansetron Q6H PRN, pancrelipase 20,000 Units/ sodium bicarbonate 650 mg(#) PRN (Production Aide from Rx), sodium chloride 0.9% (NS) IP Dialysis PRN, sodium chloride 0.9% (NS) IP Dialysis PRN Critical Care Vitals: ICP Monitoring: Hemodynamics/Oxycalcs: BP 144/60 (BP Source: Arm, Right) Comment (BP Source): Arterial line measurement | Pulse 75 | Temp 37.2 C (99 F) | Ht 172.7 cm (68") | Wt 115.9 kg (255 lb 8.2 oz) | SpO2 92% | BMI 38.85 kg/m2 Weaning readiness screen (RT Only):: Implement protocol Weaning readiness screen Met (RT Only):: Yes NIF: [-60 cm H2O] Weaning Minute Volume (L/min): [14.7 L/min] Weaning Tidal Vol (mL) (Calc.): [544 mL] $$ Vital Capacity (mL): [1446 ml] Weaning Respiratory Rate: [27 breaths/min] RSBI (Calculated): [50] FiO2 (Manual entry): [0.4] Spontaneous Breathing Trial (RT Only): Implement protocol Spontaneous Breathing Trial MET (RT Only): Yes $$ Extubation (RT only): Physician order Intake/Output Summary: (Last 24 hours) Intake/Output Summary (Last 24 hours) at 03/15/17 1301 Last data filed at 03/15/17 1100 Gross per 24 hour Intake 1461.94 ml Output 5000 ml Net -3538.06 ml Stool Occurrence: 1 Physical Exam: Blood pressure 144/60, pulse 75, temperature 37.2 C (99 F), height 172.7 cm (68"), weight 115.9 kg (255 lb 8.2 oz), SpO2 92 %. General appearance: well-developed Neurologic: Dylan coma score: E: 2 M: 6 V: 1 Pupil exam: Size: 3 Reactivity: brisk - Corneal reflex: R - present L - present -Left face droop - Cough: present - Gag reflex: present RUE: Strength: 5/5, moves on command gave a thumbs up on command RLE Strength: 5/5, moves on command LUE: Strength: 1/5, flexes to painful stimulation LLE: Strength: 1/5, flexes to painful stimulation Lungs: diminished breath sounds on left base with crackles, clear on right Pulmonary: Mechanical ventilation with pressure support Heart: regular rate and rhythm, S1, S2 normal Abdomen: soft, non-tender. Skull in abdomen, no palpable hematoma Extremities: extremities normal, atraumatic, no cyanosis, minimal edema Skin: Skin color, texture, turgor normal. No rashes or lesions Lab Review: Pertinent labs reviewed Medications: atorvastatin (LIPITOR) tablet 10 mg 10 mg Oral QHS bisacodyl (DULCOLAX) rectal suppository 10 mg 10 mg Rectal QDAY chlorhexidine gluconate (PERIDEX) 0.12 % solution 15 mL 15 mL Swish & Spit BID(8 -20) docusate (COLACE) oral solution 100 mg 100 mg Feeding Tube BID famotidine (PEPCID) injection 20 mg 20 mg Intravenous QHS heparin (porcine) PF syringe 5,000 Units 5,000 Units Subcutaneous Q8H insulin aspart (NOVOLOG FLEXPEN) injection PEN 0-7 Units 0-7 Units Subcutaneous 5 X Day levETIRAcetam in NaCl (iso-os) (KEPPRA) IVPB (premade) 1,500 mg 100 mL 1,500 mg Intravenous QDAY(12) milk of magnesia (CONC) oral suspension 10 mL 10 mL Feeding Tube QDAY niMODipine (NYMALIZE) 3 mg/ mL solution 30 mg 30 mg Per OG Tube Q2H nystatin (MYCOSTATIN) oral suspension 500,000 Units 500,000 Units Swish & Swallow QID senna/docusate (SENOKOT-S) solution 10 mL 10 mL Feeding Tube BID Point of Care Testing: (Last 24 hours): Glucose: (!) 200 (03/15/17 0330) POC Glucose (Download): (!) 162 (03/15/17 1210) Radiology and Other Diagnostic Procedures Review: Reviewed and discussed above. Jeancarlos Menendez MD Date: 03/15/[phone] Associated attestation - Bakari Wu MD - 03/15/2017 6:36 PM INTERVENTIONIST Formatting of this note may be different from the original. ATTESTATION This note is associated with the NEICU team note dated today. Date of Service: 03/15/2017 51 year old male with past medical history significant for left pleural effusion - bloody. Aneurysm rupture rupture on right MCA and sequelae thereof. He was awake yesterday and able to be weaned on the vent and sedation. He was extubated this morning. He will require close attention to prevent recurrent respiratory failure. Will discuss with pulmonary further evaluation of the left sided pleural effusion with bloody features. He may need outpatient oncologic workup. And may need recurrent tap. He is now hypertensive off sedation. He is very volume dependent and will need hemodialysis tomorrow. He is requiring a low dose of precedex per nursing for patient safety, but I will replace this with behavioral interventions, prn haldol, and risperdol 5mg bid. Chest xray tomorrow. He is more alert and follows commands and answers simple questions. vEEG removed. PLEDs are present on the right side, keppra has been increased to 1500mg daily and is given after dialysis. He may be able to switch to evening dosing to ensure that the keppra will not be removed by his routine dialysis in the future. I have seen, personally fully evaluated, and discussed patient with Dr. Menendez and [facility]. I agree with the objective findings and agree with the plan of care as documented by the resident with the exceptions noted. The patient is critically ill with SAH, IPH, M2 aneurysm rupture on the right with subsequent infarction and subsequent epidural hematoma and decompressive craniectomy and then cerebral vasospasm 2 days ago. He has become more alert over the past 2 days. Active hospital problems include: Principal Problem: 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HCC) Active Problems: IVH (intraventricular hemorrhage) (HCC) Intraparenchymal hematoma of brain (HCC) Subarachnoid bleed (HCC) I spent 70 minutes (excluding time spent performing or supervising any procedures) providing and personally directing critical care services including -review of serial neurologic, hemodynamic, respiratory, telemetry, laboratory and imaging data -management of fluids/electrolytes, antibiotics, vasoactive medications, gas exchange/mechanical ventilation, sepsis protocol, ICU prophylaxis, and ICU core measures -pain/sedation/delirium management -medication review and management -organization and coordination of care with patient (or surrogate), ICU team and consulting services. -directing the formulation of the overall plan of care outlined below. Dispo: This patient is critically ill with dysfunction of at least one organ system and is at risk for life threatening deterioration necessitating complex medical decision making and ongoing provision of ICU care. Staff name: Bakari Wu MD Date: 03/15/2017 * Marta Soto, OT - 03/14/2017 2:42 PM INTERVENTIONIST OCCUPATIONAL THERAPY NO TREATMENT NOTE The patient was not seen due to: pt was unavailable X2 this day 2* to dialysis. RN notes pt is following commands, however pt currently on bedrest, intubated with VEEG in place. Anticipate need for helmet once able to get up, due to craniectomy. Will continue to follow. Therapist: Marta Soto, OT Date: 03/14/2017 * Tracie Mitchell MD - 03/14/2017 1:29 PM INTERVENTIONIST Formatting of this note may be different from the original. Renal Progress Note Name: Naren Mayfield Today's Date: 03/14/2017 Admission Date: 03/09/2017 LOS: 5 days Assessment and Plan Principal Problem: 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HCC) Active Problems: IVH (intraventricular hemorrhage) (HCC) Intraparenchymal hematoma of brain (HCC) Subarachnoid bleed (HCC) Naren Mayfield is a 51 y.o. male with Subarachnoid hemorrhage s/p clipping ESRD on dialysis Large pleural effusion; awaiting thoracentesis HTN: off cardene drip Hyperphosphatemia: mild, should correct with dialysis Plan Dialysis today Plan for 3 L fluid removal I examined him on dialysis He was stable on treatment Tracie Mitchell MD Pager [phone] Subjective Naren Mayfield is a 51 y.o. male. He has some movement in his right leg and hand. He is off phenylephrine Medications MEDS bisacodyl 10 mg Rectal QDAY chlorhexidine gluconate 15 mL Swish & Spit BID(8-20) docusate 100 mg Feeding Tube BID famotidine 20 mg Intravenous QHS heparin (porcine) 5,000 Units Subcutaneous Q8H insulin aspart 0-7 Units Subcutaneous 5 X Day levETIRAcetam (KEPPRA) IVPB 1,500 mg Intravenous QDAY(12) milk of magnesia (CONC) 10 mL Feeding Tube QDAY niMODipine 30 mg Per OG Tube Q2H nystatin 500,000 Units Swish & Swallow QID senna/docusate 10 mL Feeding Tube BID IV MEDS dexmedetomidine (PRECEDEX) 400 mcg/NS 100 ml IV drip 0.4 mcg/kg/hr ( 1235) phenylephrine (ARLINE-SYNEPHRINE) 10 mg in sodium chloride 0.9% (NS) 250 mL IV drip (std conc) Stopped (03/13/17 2314) Prn acetaminophen Q4H PRN 650 mg at 03/14/17 0150, albuterol 0.5% Q4H PRN, fentaNYL citrate PF Q1H PRN 50 mcg at 03/12/17 2320, ipratropium bromide Q4H PRN , labetalol (NORMODYNE; TRANDATE) injection Q1H PRN, ondansetron Q6H PRN, pancrelipase 20,000 Units/ sodium bicarbonate 650 mg(#) PRN (Production Aide from Rx), sodium chloride 0.9% (NS) IP Dialysis PRN, sodium chloride 0.9% (NS) IP Dialysis PRN Stopped at 03/14/17 0731, sodium chloride 0.9% (NS) IP Dialysis PRN Physical Exam Vital Signs: Last Filed In 24 Hours Vital Signs: 24 Hour Range BP: 144/60 (03/14 730) Temp: 37.7 C (99.9 F) (03/14 1200) Pulse: 79 (03/14 1315) Respirations: 24 PER MINUTE (03/14 1315) SpO2: 97 % (03/14 1315) O2 Delivery: Endotracheal Tube (Oral) (03/14 1200) SpO2 Pulse: 79 (03/14 1315) BP: (144)/(60) ABP: (100-187)/(51-101) Temp: [37.1 C (98.7 F)-37.7 C (99.9 F)] Pulse: [70-91] Respirations: [0 PER MINUTE-28 PER MINUTE] SpO2: [85 %-100 %] O2 Delivery: Endotracheal Tube (Oral) Intake/Output Summary (Last 24 hours) at 03/14/17 1329 Last data filed at 03/14/17 1315 Gross per 24 hour Intake 2918.92 ml Output 3305 ml Net -386.08 ml Vitals: 03/12/17 1603 03/14/17 0200 03/14/17 0730 Weight: 108.8 kg (239 lb 13.8 oz) 116.2 kg (256 lb 2.8 oz) 115.9 kg (255 lb 8.2 oz) Gen: sedated CV: no JVD, S1 and S2 normal, no rubs, murmurs or gallops Pulm: decreased breath sounds at bases GI: BS+ x4, non-tender to palpation Neuro: sedated Ext: no edema Skin: no rash Labs Recent Labs 03/12/17 0344 03/13/17 0344 03/14/17 0315 NA 135* 136* 134* K 4.5 4.4 4.8 CL 101 101 97* CO2 21 22 19* GAP 13* 13* 18* BUN 36* 39* 63* CR 7.24* 6.12* 8.63* GLU 151* 151* 155* CA 7.9* 8.3* 9.1 MG 2.2 2.2 2.7* PO4 8.7* 6.6* 9.1* HGBA1C 5.2 -- -- Recent Labs 03/12/17 0344 03/13/17 0344 03/13/17 1625 03/14/17 0315 WBC 8.5 10.9 15.3* 11.0 HGB 6.8* 7.2* 8.3* 8.2* HCT 19.8* 21.1* 24.8* 24.7* PLTCT 138* 168 286 215 Estimated Creatinine Clearance: 12.8 mL/min (based on Cr of 8.63). Vitals: 03/12/17 1603 03/14/17 0200 03/14/17 0730 Weight: 108.8 kg (239 lb 13.8 oz) 116.2 kg (256 lb 2.8 oz) 115.9 kg (255 lb 8.2 oz) Recent Labs 03/13/17 0800 03/14/17 0500 PHART 7.35 7.26* PO2ART 112* 109* Tracie Mitchell MD Pager [phone] * Jeancarlos Menendez MD - 03/14/2017 12:41 PM INTERVENTIONIST Formatting of this note may be different from the original. Neuroscience Critical Care Progress Note Naren Mayfield Admission Date: 03/09/2017 LOS: 5 days ASSESSMENT/PLAN Patient Active Problem List Diagnosis Date Noted IVH (intraventricular hemorrhage) (HCC) 03/09/2017 Intraparenchymal hematoma of brain ([facility]) 03/09/2017 Subarachnoid bleed (HCC) 03/09/2017 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[facility]) 03/09/2017 Added automatically from request for surgery [id number] Naren Mayfieldis a 51 y.o.malewith PMH of HLD, HTN, renal failure, dialysis, and diabetes presenting from OSH after being at dialysis 03/09when he became acutely unresponsive. CT was done at OSH and demonstrated SAH and a possible MCA aneurysm. Patient was then transferred to for further care and management. Hospital and ICU course: 03/09: Admit NEICU. CTA. Angiogram 03/10: To OR for clipping, emergent return to OR due to epidural bleed kept intubated, hemicraniectomy 03/11: Dialysis, remains intubated. 03/12: Sheaths to be d/c'd today corpak placed. wean trial today 03/13: MS change, vasospasms on CTA 03/14: MS improved, PLEDs on VEEG Neuro: IPH rt temporal lobe, SAH rt frontotemporal lobe, epidural bleed, s/p right hemicraniectomy Escobar and Moore Grade (on admission): 4 Modified Stone Grade (on admission): 3 Evidence of hydrocephalus:No EVD at: N/A Sodium Goal:135-145 - 03/09 CTA Head: 1. Large saccular aneurysm projecting laterally from the right MCA bifurcation measuring up to 1.5 cm in maximum diameter. No significant change in surrounding right anterior temporal parenchymal hematoma as well as scattered right convexity subarachnoid hemorrhage. Small amount of layering blood products are noted within the occipital horn of the left lateral ventricle. No progressive ventricular distention to suggest hydrocephalus. Moderate nonspecific white matter disease, likely due to chronic microvascular ischemia. 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 - 03/10 S/p Clipping and craniectomy - 03/13 CTA head: 1. Mild increased smooth narrowing of the intracranial arterial vasculature, most notably within the A1 segments, consistent with mild vasospasm. No high-grade intracranial arterial stenosis is identified. 2. 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 3. Increased conspicuity of moderate sized infarct/cytotoxic edema within the anterior right temporal lobe. 4. Persistent mild transcranial herniation at the right pterional craniectomy site with improving intracranial mass effect. 5. Improving localized subarachnoid hemorrhage within the right sylvian fissure.6. Bony thinning and probable dehiscence of the right jugular bulb sigmoid plate. - 03/13 CT perfusion: 1. Scattered small and moderate sized mismatch perfusion defects within the bilateral cerebral and cerebellar hemispheres, likely related to aforementioned vasospasm. 2. Moderate-sized matched perfusion defect within the anterior right temporal lobe, consistent with completed infarct. This is underestimated on the quantitative RAPID software. -03/14 VEEG- Right PLEDs, severe diffuse slowing Mentation improved and following commands, not moving left side spontaneously just to pain. - UDS + amphetamines on admission - SBP Goal 130-160 to help with vasospasms - Nimodipine [id number] - Phenylephrine as needed - Increase Keppra 1500mg daily after dialysis - Continue VEEG- see if PLEDs improve with increased keppra - Consider 1:1 fluid replacement - TCDs Daily - Neuro-ICU monitoring, neurochecks q 1 hrs Sedation/Pain Management: Yes - Precedex drip for sedation paused due to mentation - Fentanyl PRN - Assess for delirium daily Cardiac: HTN, HLD - SBP goal: 130-160 - MAP goal > 65 - phenylephrine drip to meet SBP goal - EKG with SR, LVH - 03/11 Restart BACK TUFTER minoxidil and metoprolol BID - 03/11 ECHO EF 55% - 03/13 Stop minoxidil and metoprolol Respiratory: Pleural effusion Date of Intubation: 03/09/17Reason: Airway protection - PS 450/40%/21/08 - OSH CXR with near complete opacification of left lung, likely pleural fluid. CXR at slightly improved - 03/10 CXR: Large left pleural effusion and left lung atelectasis. Slight progression of right basilar atelectasis. Cardiomegaly. - PaO2 goal >100, Spo2 goal >95%, PCO2 goal 35-40 torr, chest physiotherapy, bronchotherapy, PD& V q 6 hrs - Pulmonary team consulted for plural effusion - AB.26,41,109,17.8 metabolic acidosis with increased anion gap most likely from missing dialysis yesterday. GI: - Feeding: tube feeds novasource renal 40ml/hr water bolus 30ml q4 - neurosurgery bowel regimen, ensure daily BM Heme: - Hgb 8.2, Plt 215 - assess for coagulopathy, maintain platelets above 100k, INR <1.5 - TEG did not identify any decreased clotting problems -Fibrinogen 193 03/14 ID: - Tmax 37.9 - WBC 11 - aim for normothermia, Temp <38.3 celsius, normothermia protocol if febrile Renal: ESRDon dialysis - Renal consult - Octavio in place - Aim for normovolemia - K+ 4.8, Na 134 - dialysis today with metabolic acidosis and high anion gap to hopefully correct this and pull some fluid Intake/Output Summary (Last 24 hours) at 03/14/17 1241 Last data filed at 03/14/17 1110 Gross per 24 hour Intake 2776.62 ml Output 5 ml Net 2771.62 ml Endocrine: DM -03/12 BG on chem 151- will start accuchecks x5 daily with SSI - 03/12 A1C pending - Blood glucose goal 100-180mg/dl FEN: - IVF: No maintenance fluid, - Magnesium goal >2.0, i-Jarred goal > 1.0, Potassium goal >4.0 mEq/L Prophylaxis Review: A) GI:[id number] B) Lines:Yes; Arterial Line; Indication: Continuous BP monitoring; Location: Radial C) Urinary Catheter:Yes; Retain cunningham due to: Need for accurate Intake and Output D) Antibiotic Usage:No E) VTE:SCDs F) Isolation:NA G)Seizures:Keppra I) Restraints: Patient assessed for need for restraints. Disposition/Family:NEICU Primary service:NSG Consults: NEICU, Renal, Pulmonary __ SUBJECTIVE Naren Mayfield is a 51 y.o. male. Overnight Events: Patient received keppra and improved an hour or so later. Unclear if related to seizure or not, but mentation was improved. OBJECTIVE Vital Signs: Last Filed Vital Signs: 24 Hour Range BP: 144/60 (03/14 730) ABP: 187/66 (03/14 1230) Temp: 37.1 C (98.8 F) (03/14 0800) Pulse: 84 (03/14 1230) Respirations: 22 PER MINUTE (03/14 1230) SpO2: 99 % (03/14 1230) O2 Delivery: Endotracheal Tube (Oral) (03/14 1200) Weight: 115.9 kg (255 lb 8.2 oz) (03/14 730) BP: (144)/(60) ABP: (100-187)/(51-101) Temp: [37.1 C (98.7 F)-37.7 C (99.9 F)] Pulse: [70-91] Respirations: [0 PER MINUTE-28 PER MINUTE] SpO2: [85 %-100 %] O2 Delivery: Endotracheal Tube (Oral) Intensity Pain Scale 0-10 (Pain 1): (not recorded) Vitals: 03/12/17 1603 03/14/17 0200 03/14/17 0730 Weight: 108.8 kg (239 lb 13.8 oz) 116.2 kg (256 lb 2.8 oz) 115.9 kg (255 lb 8.2 oz) Artificial airway: Endotracheal Tube Ventilator/ Respiratory Therapy: Yes: Mode: PS/CPAP Tidal Volume Spont (mL): [577 milliliters-640 milliliters] Total Respiratory Rate (Breaths/Min): [21 breaths/minutes-23 breaths/minutes] O2%: [40 %] PIP Actual: [11 cm H20] PEEP/CPAP: [5 cm H2O] PSupport: [5 cm H20] Vent weaning trial: Per protocol Lines: Arterial Line, Peripheral Line and AV fistula Left ARM Drains: Cunningham Catheter, Nasoduodenal tube, Claude-Cedeño Drain: #1 Scheduled Meds: bisacodyl (DULCOLAX) rectal suppository 10 mg 10 mg Rectal QDAY chlorhexidine gluconate (PERIDEX) 0.12 % solution 15 mL 15 mL Swish & Spit BID(8 -20) docusate (COLACE) oral solution 100 mg 100 mg Feeding Tube BID famotidine (PEPCID) injection 20 mg 20 mg Intravenous QHS heparin (porcine) PF syringe 5,000 Units 5,000 Units Subcutaneous Q8H insulin aspart (NOVOLOG FLEXPEN) injection PEN 0-7 Units 0-7 Units Subcutaneous 5 X Day levETIRAcetam in NaCl (iso-os) (KEPPRA) IVPB (premade) 1,500 mg 100 mL 1,500 mg Intravenous QDAY(12) milk of magnesia (CONC) oral suspension 10 mL 10 mL Feeding Tube QDAY niMODipine (NYMALIZE) 3 mg/ mL solution 30 mg 30 mg Per OG Tube Q2H nystatin (MYCOSTATIN) oral suspension 500,000 Units 500,000 Units Swish & Swallow QID senna/docusate (SENOKOT-S) solution 10 mL 10 mL Feeding Tube BID Continuous Infusions: dexmedetomidine (PRECEDEX) 400 mcg/NS 100 ml IV drip 0.4 mcg/kg/hr ( 1235) phenylephrine (ARLINE-SYNEPHRINE) 10 mg in sodium chloride 0.9% (NS) 250 mL IV drip (std conc) Stopped (03/13/17 0901) PRN and Respiratory Meds:acetaminophen Q4H PRN, albuterol 0.5% Q4H PRN, fentaNYL citrate PF Q1H PRN, ipratropium bromide Q4H PRN, labetalol (NORMODYNE; TRANDATE) injection Q1H PRN, ondansetron Q6H PRN, pancrelipase 20,000 Units/ sodium bicarbonate 650 mg(#) PRN (Production Aide from Rx), sodium chloride 0.9% (NS) IP Dialysis PRN, sodium chloride 0.9% (NS) IP Dialysis PRN, sodium chloride 0.9 % (NS) IP Dialysis PRN Critical Care Vitals: ICP Monitoring: Hemodynamics/Oxycalcs: BP 144/60 (BP Source: Arm, Right) Comment (BP Source): Arterial line measurement | Pulse 84 | Temp 37.1 C (98.8 F) | Ht 172.7 cm (68") | Wt 115.9 kg (255 lb 8.2 oz) | SpO2 99% | BMI 38.85 kg/m2 Mode: PS/CPAP Tidal Volume Spont (mL): [577 milliliters-640 milliliters] Total Respiratory Rate (Breaths/Min): [21 breaths/minutes-23 breaths/minutes] O2%: [40 %] PIP Actual: [11 cm H20] PEEP/CPAP: [5 cm H2O] PSupport: [5 cm H20] Intake/Output Summary: (Last 24 hours) Intake/Output Summary (Last 24 hours) at 03/14/17 1241 Last data filed at 03/14/17 1110 Gross per 24 hour Intake 2776.62 ml Output 5 ml Net 2771.62 ml Stool Occurrence: 1 Physical Exam: Blood pressure 144/60, pulse 84, temperature 37.1 C (98.8 F), height 172.7 cm (68"), weight 115.9 kg (255 lb 8.2 oz), SpO2 99 %. General appearance: well-developed Neurologic: Dylan coma score: E: 2 M: 6 V: 1 Pupil exam: Size: 3 Reactivity: brisk - Corneal reflex: R - present L - present - Cough: present - Gag reflex: present RUE: Strength: 5/5, moves on command gave a thumbs up on command RLE Strength: 5/5, moves on command LUE: Strength: 1/5, flexes to painful stimulation LLE: Strength: 1/5, flexes to painful stimulation Lungs: diminished breath sounds on left base with crackles, clear on right Pulmonary: Mechanical ventilation with pressure support Heart: regular rate and rhythm, S1, S2 normal Abdomen: soft, non-tender. Skull in abdomen, no palpable hematoma Extremities: extremities normal, atraumatic, no cyanosis, minimal edema Skin: Skin color, texture, turgor normal. No rashes or lesions Lab Review: Pertinent labs reviewed Medications: bisacodyl (DULCOLAX) rectal suppository 10 mg 10 mg Rectal QDAY chlorhexidine gluconate (PERIDEX) 0.12 % solution 15 mL 15 mL Swish & Spit BID(8 -20) docusate (COLACE) oral solution 100 mg 100 mg Feeding Tube BID famotidine (PEPCID) injection 20 mg 20 mg Intravenous QHS heparin (porcine) PF syringe 5,000 Units 5,000 Units Subcutaneous Q8H insulin aspart (NOVOLOG FLEXPEN) injection PEN 0-7 Units 0-7 Units Subcutaneous 5 X Day levETIRAcetam in NaCl (iso-os) (KEPPRA) IVPB (premade) 1,500 mg 100 mL 1,500 mg Intravenous QDAY(12) milk of magnesia (CONC) oral suspension 10 mL 10 mL Feeding Tube QDAY niMODipine (NYMALIZE) 3 mg/ mL solution 30 mg 30 mg Per OG Tube Q2H nystatin (MYCOSTATIN) oral suspension 500,000 Units 500,000 Units Swish & Swallow QID senna/docusate (SENOKOT-S) solution 10 mL 10 mL Feeding Tube BID Point of Care Testing: (Last 24 hours): Glucose: (!) 155 (03/14/17 0315) POC Glucose (Download): (!) 161 (03/14/17 8532) Radiology and Other Diagnostic Procedures Review: Reviewed and discussed above. Jeancarlos Menendez MD Date: 03/14/[phone] Associated attestation - Bakari Wu MD - 03/14/2017 9:51 PM INTERVENTIONIST Formatting of this note may be different from the original. NEICU Attending Security Shift Supervisor Attestation Naren Mayfield is a 51 y.o. y.o. male admitted 03/09/2017 to the NEICU critically ill with ruptured aneurysm and is receiving critical care services for the treatment of this primary diagnosis and the prevention and management of secondary injuries. I have reviewed the events, seen, personally examined, fully evaluated, and discussed this patient with NeuroICU team during the team rounds. I agree with the objective findings and agree with the plan of care as documented by the resident with the exceptions noted. This patient exhibits injury of at least one organ system and there is high probability of imminent or life-threatening deterioration in patient's condition. As such, there is a need for continued medical attention including frequent neurological examination, frequent vital signs, and the cares appropriate for an ICU. I spent 60 minutes providing and personally directing neurological care services. Family and patient were counseled about the diagnosis, treatment plan , and prognosis. Bakari Wu MD Date: 03/14/2017 * Sydney Andrade - 03/14/2017 9:05 AM INTERVENTIONIST EEG signals are clean of artifact and visible. Video was visualized and recording. Audio recording was checked and functioning. The VEEG system is on- line. Central monitoring station is functioning appropriately. The event button is operational and within reach of the patient and/or patient' s family. Electrode impedances below 5 kOhms * Tracie Mitchell MD - 03/13/2017 4:54 PM INTERVENTIONIST Formatting of this note may be different from the original. Renal Progress Note Name: Naren Mayfield Today's Date: 03/13/2017 Admission Date: 03/09/2017 LOS: 4 days Assessment and Plan Principal Problem: 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HCC) Active Problems: IVH (intraventricular hemorrhage) (HCC) Intraparenchymal hematoma of brain (HCC) Subarachnoid bleed (HCC) Naren Mayfield is a 51 y.o. male with Subarachnoid hemorrhage s/p clipping ESRD on dialysis Large pleural effusion; awaiting thoracentesis HTN: off cardene drip and now hypotensive Hyperphosphatemia: mild, should correct with next dialysis session Plan Potassium and bicarbonate are stable and patient is stable from a respiratory stand point. No need for dialysis today. WIll continue to assess daily for dialysis needs. Tracie Mitchell MD Pager [phone] Subjective Naren Mayfield is a 51 y.o. male. Remains sedated. Off cardene drip. He is now on phenylephrine for hypotension Medications MEDS bisacodyl 10 mg Rectal QDAY chlorhexidine gluconate 15 mL Swish & Spit BID(8-20) docusate 100 mg Feeding Tube BID famotidine 20 mg Intravenous QHS heparin (porcine) 5,000 Units Subcutaneous Q8H insulin aspart 0-7 Units Subcutaneous 5 X Day levETIRAcetam (KEPPRA) IVPB 1,000 mg Intravenous QDAY(12) milk of magnesia (CONC) 10 mL Feeding Tube QDAY niMODipine 30 mg Per OG Tube Q2H nystatin 500,000 Units Swish & Swallow QID senna/docusate 10 mL Feeding Tube BID sodium chloride 0.9% (NS) NOW sodium chloride 0.9% (NS) NOW IV MEDS dexmedetomidine (PRECEDEX) 400 mcg/NS 100 ml IV drip Stopped (03/13/17 0610 ) phenylephrine (ARLINE-SYNEPHRINE) 10 mg in sodium chloride 0.9% (NS) 250 mL IV drip (std conc) 0.8 mcg/kg/min (03/13/17 1621) Prn acetaminophen Q4H PRN 650 mg at 03/13/17 0422, albuterol 0.5% Q4H PRN, fentaNYL citrate PF Q1H PRN 50 mcg at 03/12/17 2320, ipratropium bromide Q4H PRN , ondansetron Q6H PRN, pancrelipase 20,000 Units/ sodium bicarbonate 650 mg(#) PRN (Production Aide from Rx) Physical Exam Vital Signs: Last Filed In 24 Hours Vital Signs: 24 Hour Range BP: 115/50 (03/13 0200) Temp: 37.7 C (99.9 F) (03/13 1452) Pulse: 87 (03/13 1452) Respirations: 28 PER MINUTE (03/13 1452) SpO2: 99 % (03/13 1452) O2 Delivery: Endotracheal Tube (Oral) (03/13 1400) SpO2 Pulse: 87 (03/13 1452) BP: (115)/(50) ABP: (106-157)/(41-131) Temp: [37.2 C (99 F)-37.9 C (100.2 F)] Pulse: [58-87] Respirations: [14 PER MINUTE-28 PER MINUTE] SpO2: [91 %-100 %] O2 Delivery: Endotracheal Tube (Oral) Intake/Output Summary (Last 24 hours) at 03/13/17 1654 Last data filed at 03/13/17 1452 Gross per 24 hour Intake 2020.44 ml Output 0 ml Net 2020.44 ml Vitals: 03/11/17 1528 03/12/17 1233 03/12/17 1603 Weight: 114.8 kg (253 lb) 111 kg (244 lb 11.4 oz) 108.8 kg (239 lb 13.8 oz) Gen: sedated CV: no JVD, S1 and S2 normal, no rubs, murmurs or gallops Pulm: decreased breath sounds at bases GI: BS+ x4, non-tender to palpation Neuro: sedated Ext: no edema Skin: no rash Labs Recent Labs 03/10/17204903/11/17 0355 03/12/17 0344 03/13/17 0344 NA 133* 135* 135* 136* K 4.1 4.0 4.5 4.4 CL 98 101 101 101 CO2 21 20* 21 22 GAP 14* 14* 13* 13* BUN 43* 45* 36* 39* CR 8.05* 8.60* 7.24* 6.12* GLU 101* 100 151* 151* CA 8.2* 7.6* 7.9* 8.3* MG -- 2.1 2.2 2.2 PO4 8.1* 9.1* 8.7* 6.6* HGBA1C -- -- 5.2 -- Recent Labs 03/10/17 2050 03/11/17 0050 03/11/17 0355 03/11/17 0607 03/11/17 0843 03/12/17 0344 03/13/17 0344 WBC 9.0 -- 8.2 -- -- 8.5 10.9 HGB 9.1* -- 7.5* -- -- 6.8* 7.2* HCT 27.7* -- 22.6* -- -- 19.8* 21.1* PLTCT 157 -- 159 -- -- 138* 168 INR 1.3* -- -- -- -- -- -- PTT 29.8 -- -- -- -- -- -- TNI 0.16* 0.13* 0.15* 0.16* 0.17* -- -- Estimated Creatinine Clearance: 17.5 mL/min (based on Cr of 6.12). Vitals: 03/11/17 1528 03/12/17 1233 03/12/17 1603 Weight: 114.8 kg (253 lb) 111 kg (244 lb 11.4 oz) 108.8 kg (239 lb 13.8 oz) Recent Labs 03/13/17 0344 03/13/17 0800 PHART 7.37 7.35 PO2ART 99 112* Tracie Mitchell MD Pager [phone] * Portia Johnson, RD - 03/13/2017 3:54 PM INTERVENTIONIST CLINICAL NUTRITION Clinical Nutrition Follow-Up Summary Nutrition Assessment of Patient: Malnutrition Assessment: (pending subjective information) Current Oral Intake: NPO Estimated Calorie Needs: 1850-2220kcal (25-30kcal/kg desired wt 74kg) Estimated Protein Needs: 111-133g (1.5-1.8g/kg desired wt 74kf) Oral Diet Order: NPO Comment: 51 yo M admitted 03/09 from OSH after being acutely unresponsive during dialysis. CT was done at OSH and CT demonstrated large lesion and a possible MCA aneurysm. PMH includes HLD, HTN, ESRD on dialysis, and diabetes. Upon arrival to , pt was intubated. 03/10 s/p clipping and craniectomy. Off propofol 03/12, vent weaning trial yesterday. Pt with corpak tip in stomach. EN began 12:00 on 03/12 with Novasource Renal. Currently running at 20ml/hr. Pt intubation continues; with staff in procedure and no family available this afternoon. Pt received dialysis 03/11 and . Nonpitting edema in BLEs and facial , no pressure injuries noted. BM 03/13 (medium/loose/watery). Current weight is 239 lb post HD. Per pt's license from August 2016, pt's weight was 245 lb. Will follow up with tolerance and nutrition status 03/15. Recommendation: Recommendation: Continue Novasource Renal @ 20 ml/hr with goal rate of 40 ml/ hr and 3 prosource packets daily. Additional water per primary team. This provides 2100 kcal, 132 g protein, and 691 ml free water. If extubated and passes swallow evaluation, recommend combination of renal-dialysis and diabetic consistent carb [id number] (60g CHO/meal). Intervention / Plan: attempted to obtain subjective data Monitor labs, weight trends, EN intake/tolerance, GI health Nutrition Diagnosis: Nutrition Diagnosis: Inadequate protein-energy intake Etiology: SAH, s/p intubation Signs & Symptoms: trophic EN feeds Goals: EN tolerated and meeting >75% of nutritional needs Time Frame: Within 72 Hours Status: Ongoing Portia Johnson RD * AdiSaman - 03/13/2017 3:07 PM INTERVENTIONIST EEG electrodes were successfully placed on pt's scalp and secured without complications. V-EEG was instructed to both the pt and their family. All questions were answered and addressed to their liking. Seizure pads are placed on the bed rail. The event button and emergent call light are placed within the pt and their family's reach. Video, sound and EEG tracings are all functioning properly. Routine 25 Minute EEG Study completed without complications once patient was hooked up for VEEG Monitoring. * Carole Sloan, PT - 03/13/2017 11:45 AM INTERVENTIONIST PHYSICAL THERAPY NOTE Patient's case reviewed and discussed during interdisciplinary rounds. Patient is currently minimally responsive and unable to participate in purposeful physical therapy. Physical therapy will continue to follow and provide intervention as indicated. Therapist: Carole Sloan, PT Date: 03/13/2017 * Marcos Solorzano MD - 03/13/2017 11:14 AM INTERVENTIONIST Formatting of this note may be different from the original. Pulmonary Progress Note Naren Mayfield Date of Admission: 03/09/2017 Principal Problem: 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HCC) Active Problems: IVH (intraventricular hemorrhage) (HCC) Intraparenchymal hematoma of brain (HCC) Subarachnoid bleed (HCC) Impression/Plan: Mr. Mayfield is a 51 year old male with PMH of SAH s/p clipping of cerebral aneurysm who presents with new pleural effusion 1. Pleural effusion- likely secondary to volume overload. On bedside US this mornign there was not a significant amount of fluid and given patient's current clinical status not ideal to attempt thora - will eval daily with bedside US for thoracentesis - no indication for thoracentesis today Pt seen and discussed with Dr. Solorzano ICU Attending Note Naren Mayfield Is critically ill with: Principal Problem: 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HCC) Active Problems: IVH (intraventricular hemorrhage) (HCC) Intraparenchymal hematoma of brain (HCC) Subarachnoid bleed (HCC) I spent 40 minutes (excluding time spent performing or supervising any procedures) providing and personally directing critical care services which was discussed with the ICU team including: Systems review and physical examination Serial evaluation of hemodynamic data Serial evaluation of respiratory status Review and management of ICU prophylaxis and core measures Review of laboratory data Review of telemetry data Review of imaging studies Review of medications Fluid and electrolyte management Will do daily US to assess fluid accumulation. Unsure of etiology but no loculations identified in pleural space. Large volume thoracentesis possible but logistically challenging given patients MV and bed bound. Further he is currently on pressors. Thoracentesis would probably be helpful with extubation but would wait until he is off pressors and closer to extubation. Staff name: Marcos oSlorzano MD Date: 03/15/2017 __ Subjective Naren Mayfield is a 51 y.o. male. No acute events overnight. Patinet more hypotensive this morning and started on pressor. Was trialing for possible extubation but given mental status unable to be extubated. Objective Vital Signs: Last Filed Vital Signs: 24 Hour Range BP: 115/50 (03/13 0200) Temp: 37.9 C (100.2 F) (03/13 800) Pulse: 82 (03/13 908) Respirations: 26 PER MINUTE (03/13 908) SpO2: 95 % (03/13 908) O2 Delivery: Endotracheal Tube (Oral) (03/13 600) SpO2 Pulse: 77 (03/13 600) BP: (115)/(50) ABP: (106-155)/(41-131) Temp: [36.9 C (98.5 F)-37.9 C (100.2 F)] Pulse: [58-83] Respirations: [13 PER MINUTE-28 PER MINUTE] SpO2: [90 %-100 %] O2 Delivery: Endotracheal Tube (Oral) Intake/Output Summary (Last 24 hours) at 03/13/17 1116 Last data filed at 03/13/17 0800 Gross per 24 hour Intake 1827.71 ml Output 2826 ml Net -998.29 ml PHYSICAL EXAMINATION General: Intubated and sedated Head: Dressing in place Eyes: Conjunctiva clear. Pupils round. No scleral icterus Neck: No JVD. No adenopathy Lungs: Chest rise appropriate with ventilator delivered breath Heart: Regular rate and rhythm Abdomen: Soft, non-tender. Bowel sounds normal. No masses. No organomegaly. Extremities: Extremities normal, atraumatic, no cyanosis or edema Pulses: 2+ and symmetric, all extremities Neurologic Exam Mental Status: sedated Psych: unable to assess given sedation Skin: no rash or jaundice on limited exam. LABS: Recent Labs 03/10/17204903/11/17 0355 03/12/17 0344 03/13/17 0344 NA 133* 135* 135* 136* K 4.1 4.0 4.5 4.4 CL 98 101 101 101 CO2 21 20* 21 22 GAP 14* 14* 13* 13* BUN 43* 45* 36* 39* CR 8.05* 8.60* 7.24* 6.12* GLU 101* 100 151* 151* CA 8.2* 7.6* 7.9* 8.3* MG -- 2.1 2.2 2.2 PO4 8.1* 9.1* 8.7* 6.6* HGBA1C -- -- 5.2 -- Recent Labs 03/10/17 2050 03/11/17 0050 03/11/17 0355 03/11/17 0607 03/11/17 0843 03/12/17 0344 03/13/17 0344 WBC 9.0 -- 8.2 -- -- 8.5 10.9 HGB 9.1* -- 7.5* -- -- 6.8* 7.2* HCT 27.7* -- 22.6* -- -- 19.8* 21.1* PLTCT 157 -- 159 -- -- 138* 168 INR 1.3* -- -- -- -- -- -- PTT 29.8 -- -- -- -- -- -- TNI 0.16* 0.13* 0.15* 0.16* 0.17* -- -- Estimated Creatinine Clearance: 17.5 mL/min (based on Cr of 6.12). Vitals: 03/11/17 1528 03/12/17 1233 03/12/17 1603 Weight: 114.8 kg (253 lb) 111 kg (244 lb 11.4 oz) 108.8 kg (239 lb 13.8 oz) Recent Labs 03/13/17 0344 03/13/17 0800 PHART 7.37 7.35 PO2ART 99 112* MEDS bisacodyl 10 mg Rectal QDAY chlorhexidine gluconate 15 mL Swish & Spit BID(8-20) docusate 100 mg Feeding Tube BID famotidine 20 mg Intravenous QHS insulin aspart 0-7 Units Subcutaneous 5 X Day levETIRAcetam (KEPPRA) IVPB 1,000 mg Intravenous QDAY(12) milk of magnesia (CONC) 10 mL Feeding Tube QDAY niMODipine 30 mg Per OG Tube Q2H nystatin 500,000 Units Swish & Swallow QID senna/docusate 10 mL Feeding Tube BID sodium chloride 0.9% (NS) NOW sodium chloride 0.9% (NS) NOW IV MEDS dexmedetomidine (PRECEDEX) 400 mcg/NS 100 ml IV drip Stopped (12/06/17 0610 ) phenylephrine (ARLINE-SYNEPHRINE) 10 mg in sodium chloride 0.9% (NS) 250 mL IV drip (std conc) 0.7 mcg/kg/min (03/13/17 1044) Prnacetaminophen Q4H PRN, albuterol 0.5% Q4H PRN, fentaNYL citrate PF Q1H PRN , ipratropium bromide Q4H PRN, ondansetron Q6H PRN, pancrelipase 20,000 Units/ sodium bicarbonate 650 mg(#) PRN (Production Aide from Rx) Radiology Pertinent radiology reviewed. Caroline Davila, Pulmonary/Critical Care Pager # [phone] 03/13/2017 * Marta Soto, ERICK - 03/13/2017 10:05 AM INTERVENTIONIST OCCUPATIONAL THERAPY NO TREATMENT NOTE The patient was not seen due to: discussed with RN. Pt with worsened exam, pt is not following commands and not able to participate in meaningful therapy at this time. Will continue to follow. Attempted to see patient 1 time(s) Therapist: Marta Soto, OT Date: 03/13/2017 * Jeancarlos Menendez MD - 03/13/2017 8:09 AM INTERVENTIONIST Formatting of this note may be different from the original. 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 CT was done at OSH and demonstrated SAH and a possible MCA aneurysm. Patient was then transferred to for further care and management. Hospital and ICU course: 03/09: Admit NEICU. CTA. Angiogram 03/10: To OR for clipping, emergent return to OR due to epidural bleed kept intubated, hemicraniectomy 12/4: Dialysis, remains intubated. 03/12: Sheaths to be d/c'd today corpak placed. wean trial today 03/13: MS change, vasospasms on CTA Neuro: IPH rt temporal lobe, SAH rt frontotemporal lobe, epidural bleed, s/p right hemicraniectomy Escobar and Moore Grade (on admission): 4 Modified Stone Grade (on admission): 3 Evidence of hydrocephalus:No EVD at: N/A Sodium Goal:135-145 - 03/09 CTA Head: 1. Large saccular aneurysm projecting laterally from the right MCA bifurcation measuring up to 1.5 cm in maximum diameter. No significant change in surrounding right anterior temporal parenchymal hematoma as well as scattered right convexity subarachnoid hemorrhage. Small amount of layering blood products are noted within the occipital horn of the left lateral ventricle. No progressive ventricular distention to suggest hydrocephalus. Moderate nonspecific white matter disease, likely due to chronic microvascular ischemia. 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 - 03/10 S/p Clipping and craniectomy - 03/13 CTA head: 1. Mild increased smooth narrowing of the intracranial arterial vasculature, most notably within the A1 segments, consistent with mild vasospasm. No high-grade intracranial arterial stenosis is identified. 2. 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 3. Increased conspicuity of moderate sized infarct/cytotoxic edema within the anterior right temporal lobe. 4. Persistent mild transcranial herniation at the right pterional craniectomy site with improving intracranial mass effect. 5. Improving localized subarachnoid hemorrhage within the right sylvian fissure.6. Bony thinning and probable dehiscence of the right jugular bulb sigmoid plate. - 03/13 CT perfusion: 1. Scattered small and moderate sized mismatch perfusion defects within the bilateral cerebral and cerebellar hemispheres, likely related to aforementioned vasospasm. 2. Moderate-sized matched perfusion defect within the anterior right temporal lobe, consistent with completed infarct. This is underestimated on the quantitative RAPID software. Unclear for exact cause of mentation change differential includes vasospasm, Seizures, metabolic, drug, infectious or other etiologies. - UDS + amphetamines on admission - SBP Goal 130-160 to help with vasospasms - Nimodipine [id number] - Phenylephrine - Keppra 1000mg daily after dialysis daily - VEEG today to rule out seizure activity - Consider 1:1 fluid replacement - TCDs Daily - Neuro-ICU monitoring, neurochecks q 1 hrs Sedation/Pain Management: Yes - Precedex drip for sedation paused due to mentation - Fentanyl PRN - Assess for delirium daily Cardiac: HTN, HLD - SBP goal: 130-160 - MAP goal > 65 - phenylephrine drip to meet SBP goal - EKG with SR, LVH - 03/11 Restart BACK TUFTER minoxidil and metoprolol BID - 03/11 ECHO EF 55% - 03/13 Stop minoxidil and metoprolol Respiratory: Pleural effusion Date of Intubation: 03/09/17Reason: Airway protection - PS 450/40%/16/5 - ABG 7.35/40/112/21.9 - OSH CXR with near complete opacification of left lung, likely pleural fluid. CXR at slightly improved - 03/10 CXR: Large left pleural effusion and left lung atelectasis. Slight progression of right basilar atelectasis. Cardiomegaly. - PaO2 goal >100, Spo2 goal >95%, PCO2 goal 35-40 torr, chest physiotherapy, bronchotherapy, PD& V q 6 hrs - Pulmonary team consulted for plural effusion and will hold off as fluid shifts could lower BP, they feel most likely transudate and related to kidney disease GI: - Feeding: tube feeds novasource renal 40ml/hr water bolus 30ml q4 - neurosurgery bowel regimen, ensure daily BM Heme: - Hgb 7.2, Plt 168 - assess for coagulopathy, maintain platelets above 100k, INR <1.5 Sheath removed yesterday and Hgb did not improve as expected with unit of blood will order CT abdomen and pelvis to check for bleed ID: - Tmax 37.7 - WBC 8.5 - aim for normothermia, Temp <38.3 celsius, normothermia protocol if febrile Renal: ESRDon dialysis - Renal consult - Octavio in place - Aim for normovolemia - K+ 4.4, Na 136 - dialysis daily - Will try and limit fluid pulled off today -1L NS given this morning to help pressure Intake/Output Summary (Last 24 hours) at 03/13/17 0809 Last data filed at 03/13/17 0600 Gross per 24 hour Intake 1994.19 ml Output 2831 ml Net -836.81 ml Endocrine: DM -12/5 BG on chem 151- will start accuchecks x5 daily with SSI - 125 A1C pending - Blood glucose goal 100-180mg/dl FEN: - IVF: No maintenance fluid, - Magnesium goal >2.0, i-Jarred goal > 1.0, Potassium goal >4.0 mEq/L Prophylaxis Review: A) [id number] B) Lines:Yes; Arterial Line; Indication: Continuous BP monitoring; Location: Radial C) Urinary Catheter:Yes; Retain cunningham due to: Need for accurate Intake and Output D) Antibiotic Usage:No E) VTE:SCDs F) Isolation:NA G)Seizures:Keppra I) Restraints: Patient assessed for need for restraints. Disposition/Family:NEICU Primary service:NSG Consults: NEICU, Renal, Pulmonary __ SUBJECTIVE Naren Mayfield is a 51 y.o. male. Overnight Events: No events overnight. Change in mentation around 6 am where patient would no longer follow commands. He was able to squeeze hands and open eyes, but now will do neither. Only responds to painful stimulation. Blood pressure lowered around time of symptom start. OBJECTIVE Vital Signs: Last Filed Vital Signs: 24 Hour Range BP: 115/50 (03/13 0200) ABP: 118/47 (03/13 636) ART MAP (Calculated) mm H mm Hg (03/12 1000) Temp: 37.9 C (100.2 F) (03/13 800) Pulse: 83 (03/13 636) Respirations: 28 PER MINUTE (03/13 636) SpO2: 100 % (03/13 636) O2 Delivery: Endotracheal Tube (Oral) (03/13 600) Weight: 108.8 kg (239 lb 13.8 oz) (03/12 1603) BP: (115)/(50) ABP: (106-155)/(41-131) ART MAP (Calculated) mm Hg: [73 mm Hg-92 mm Hg] Temp: [36.9 C (98.5 F)-37.9 C (100.2 F)] Pulse: [58-83] Respirations: [13 PER MINUTE-28 PER MINUTE] SpO2: [90 %-100 %] O2 Delivery: Endotracheal Tube (Oral) Intensity Pain Scale 0-10 (Pain 1): (not recorded) Vitals: 03/11/17 1528 03/12/17 1233 03/12/17 1603 Weight: 114.8 kg (253 lb) 111 kg (244 lb 11.4 oz) 108.8 kg (239 lb 13.8 oz) Artificial airway: Endotracheal Tube Ventilator/ Respiratory Therapy: Yes: Weaning readiness screen (RT Only):: Implement protocol Weaning readiness screen Met (RT Only):: Yes NIF: [-21 cm H2O] Weaning Minute Volume (L/min): [10.4 L/min] Weaning Tidal Vol (mL) (Calc.): [371 mL] Weaning Respiratory Rate: [28 breaths/min] RSBI (Calculated): [75] PaO2 (Manual entry): [99 MMHG] FiO2 (Manual entry): [0.4] P/F Ratio (Calculated): [248] Mode: PS/CPAP Set Vt (ml): [450 milliliters] Tidal Volume Spont (mL): [426 milliliters-481 milliliters] Set RR: [16 breaths/minutes] Total Respiratory Rate (Breaths/Min): [24 breaths/minutes-28 breaths/minutes] O2%: [40 %] PIP Actual: [7.1 cm H20-16 cm H20] PEEP/CPAP: [5 cm H2O] PSupport: [5 cm H20] Spontaneous Breathing Trial (RT Only): Implement protocol Spontaneous Breathing Trial MET (RT Only): No: Not awake/alert, doesn't follow commands Weaning Trial Comment: pt not following commands, hypotensive Vent weaning trial: Per protocol Lines: Arterial Line, Peripheral Line and AV fistula Left ARM Drains: Cunningham Catheter, Nasoduodenal tube, Claude-Cedeño Drain: #1 Scheduled Meds: bisacodyl (DULCOLAX) rectal suppository 10 mg 10 mg Rectal QDAY chlorhexidine gluconate (PERIDEX) 0.12 % solution 15 mL 15 mL Swish & Spit BID(8 -20) docusate (COLACE) oral solution 100 mg 100 mg Feeding Tube BID famotidine (PEPCID) injection 20 mg 20 mg Intravenous QHS insulin aspart (NOVOLOG FLEXPEN) injection PEN 0-7 Units 0-7 Units Subcutaneous 5 X Day levETIRAcetam in NaCl (iso-os) (KEPPRA) IVPB (premade) 1,000 mg 100 mL 1,000 mg Intravenous QDAY(12) metoprolol tartrate (LOPRESSOR) tablet 100 mg 100 mg Per NG tube BID milk of magnesia (CONC) oral suspension 10 mL 10 mL Feeding Tube QDAY minoxidil (LONITEN) tablet 10 mg 10 mg Per NG tube BID niMODipine (NYMALIZE) 3 mg/ mL solution 60 mg 60 mg Per OG Tube Q4H senna/docusate (SENOKOT-S) solution 10 mL 10 mL Feeding Tube BID Continuous Infusions: dexmedetomidine (PRECEDEX) 400 mcg/NS 100 ml IV drip Stopped (03/13/17 0610 ) phenylephrine (ARLINE-SYNEPHRINE) 10 mg in sodium chloride 0.9% (NS) 250 mL IV drip (std conc) PRN and Respiratory Meds:acetaminophen Q4H PRN, albuterol 0.5% Q4H PRN, fentaNYL citrate PF Q1H PRN, hydrALAZINE Q6H PRN, ipratropium bromide Q4H PRN, labetalol (NORMODYNE; TRANDATE) injection Q15 MIN PRN, ondansetron Q6H PRN, pancrelipase 20,000 Units/ sodium bicarbonate 650 mg(#) PRN (Production Aide from Rx) Critical Care Vitals: ICP Monitoring: Hemodynamics/Oxycalcs: BP 115/50 (BP Source: Arm, Left) | Pulse 83 | Temp 37.9 C (100.2 F) | Ht 172.7 cm (68") | Wt 108.8 kg (239 lb 13.8 oz) | SpO2 100% | BMI 36.47 kg/m2 Weaning readiness screen (RT Only):: Implement protocol Weaning readiness screen Met (RT Only):: Yes NIF: [-21 cm H2O] Weaning Minute Volume (L/min): [10.4 L/min] Weaning Tidal Vol (mL) (Calc.): [371 mL] Weaning Respiratory Rate: [28 breaths/min] RSBI (Calculated): [75] PaO2 (Manual entry): [99 MMHG] FiO2 (Manual entry): [0.4] P/F Ratio (Calculated): [248] Mode: PS/CPAP Set Vt (ml): [450 milliliters] Tidal Volume Spont (mL): [426 milliliters-481 milliliters] Set RR: [16 breaths/minutes] Total Respiratory Rate (Breaths/Min): [24 breaths/minutes-28 breaths/minutes] O2%: [40 %] PIP Actual: [7.1 cm H20-16 cm H20] PEEP/CPAP: [5 cm H2O] PSupport: [5 cm H20] Spontaneous Breathing Trial (RT Only): Implement protocol Spontaneous Breathing Trial MET (RT Only): No: Not awake/alert, doesn't follow commands Weaning Trial Comment: pt not following commands, hypotensive Intake/Output Summary: (Last 24 hours) Intake/Output Summary (Last 24 hours) at 03/13/17 0809 Last data filed at 03/13/17 0600 Gross per 24 hour Intake 1994.19 ml Output 2831 ml Net -836.81 ml Stool Occurrence: 1 Physical Exam: Blood pressure 115/50, pulse 83, temperature 37.9 C (100.2 F), height 172.7 cm (68"), weight 108.8 kg (239 lb 13.8 oz), SpO2 100 %. General appearance: well-developed Neurologic: Dylan coma score: E: 1 M: 4 V: 1 Pupil exam: Size: 3 Reactivity: brisk - Corneal reflex: R - present L - present - Cough: present - Gag reflex: present RUE: Strength: 1/5, moves to painful stimulation RLE Strength: 1/5, moves to painful stimulation LUE: Strength: 1/5, moves to painful stimulation LLE: Strength: 1/5, moves to painful stimulation Lungs: diminished breath sounds on left base with crackles, clear on right Pulmonary: Mechanical ventilation with pressure support Heart: regular rate and rhythm, S1, S2 normal Abdomen: soft, non-tender. Skull in abdomen, no palpable hematoma Extremities: extremities normal, atraumatic, no cyanosis, minimal edema Skin: Skin color, texture, turgor normal. No rashes or lesions Lab Review: Pertinent labs reviewed Medications: bisacodyl (DULCOLAX) rectal suppository 10 mg 10 mg Rectal QDAY chlorhexidine gluconate (PERIDEX) 0.12 % solution 15 mL 15 mL Swish & Spit BID(8 -20) docusate (COLACE) oral solution 100 mg 100 mg Feeding Tube BID famotidine (PEPCID) injection 20 mg 20 mg Intravenous QHS insulin aspart (NOVOLOG FLEXPEN) injection PEN 0-7 Units 0-7 Units Subcutaneous 5 X Day levETIRAcetam in NaCl (iso-os) (KEPPRA) IVPB (premade) 1,000 mg 100 mL 1,000 mg Intravenous QDAY(12) metoprolol tartrate (LOPRESSOR) tablet 100 mg 100 mg Per NG tube BID milk of magnesia (CONC) oral suspension 10 mL 10 mL Feeding Tube QDAY minoxidil (LONITEN) tablet 10 mg 10 mg Per NG tube BID niMODipine (NYMALIZE) 3 mg/ mL solution 60 mg 60 mg Per OG Tube Q4H senna/docusate (SENOKOT-S) solution 10 mL 10 mL Feeding Tube BID Point of Care Testing: (Last 24 hours): Glucose: (!) 151 (03/13/17 0344) POC Glucose (Download): (!) 129 (03/13/17 0342) Radiology and Other Diagnostic Procedures Review: Reviewed and discussed above. Jeancarlos Menendez MD Date: 03/13/[phone] Associated attestation - Bakari Wu MD - 03/13/2017 6:19 PM INTERVENTIONIST Formatting of this note may be different from the original. ATTESTATION This note is associated with the NEICU team note dated today. Date of Service: 03/13/2017 51 year old male with past medical history significant for R M2 aneurysm rupture and IPH, SAH, cerebral edema, and small cerebral infarction. Mr Mayfield was less responsive this morning and required fluid volume replacement 1L and BP augmentation. CTa/CTp demonstrated some cerebral vasospasm. This morning his NPI were less responsive, and he did not respond to pain. In the late morning after bp augmentation his exam remained unchanged. By the afternoon, 4pm, his exam was improved to the point where he would open his eyes again, he would not track, he did have a subtle grasp with his right hand. Continue BP augmentation 130-180 for today. Use phenylephrine as needed for augmentation. Wean off precedex sedation vEEG started today DDx of neurologic change: vasospasm, cerebral edema, fever (low grade), seizure. HgB was low again and required 1 u pRBC transfusion. He had an appropriate bum in his hemoglobin after transfusion. However he did have a CTabdomen to rule out retroperitoneal bleed after pulling the sheath which did not show a retroperitoneal bleed. The left sided pleural effusion did have some layering idiciativeof its chronicity. I do not suspect that it would be bloody as there is no obvious mechanism for this. TEG and coag sent today. Platelets normal. After we obtain pigtail drain to the left chest we will be able to send for cells, free hemoglobin, Lights criteria. Not clear on the etiology of the pleural effusion. The left lung though is almost completely collapsed as seen on ultrasound and CT. Will continue to attempt to wean to extubate. Gradual removal of pleural fluid may be more successful at re-inflating the left lung if it has been compromised for a long time and positive pressure ventilation will held minimize the tendency for pulmonary edema from reinflation. Anemia - 8.6 on admission. If no bleeding, then may start SQ heparin tomorrow Leukocytosis and low grade temp may be related to vasospasm. Will culture if fever spikes. HD was withheld today. Vascular access: avoiding IJ canulation due to potential for elevated ICP in the future, avoid subclavian canulation due to need for dialysis access and the left forearm AV fistula, avoid radha access for infectious risk and recently pulled groin sheaths. I have seen, personally fully evaluated, and discussed patient with Dr. Menendez and the [facility] team. I agree with the objective findings and agree with the plan of care as documented by the resident with the exceptions noted. The patient is critically ill with cerebral vasospasm. Active hospital problems include: Principal Problem: 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HCC) Active Problems: IVH (intraventricular hemorrhage) (HCC) Intraparenchymal hematoma of brain (HCC) Subarachnoid bleed (HCC) I spent 55 minutes (excluding time spent performing or supervising any procedures) providing and personally directing critical care services including -review of serial neurologic, hemodynamic, respiratory, telemetry, laboratory and imaging data -management of fluids/electrolytes, antibiotics, vasoactive medications, gas exchange/mechanical ventilation, sepsis protocol, ICU prophylaxis, and ICU core measures -pain/sedation/delirium management -medication review and management -organization and coordination of care with patient (or surrogate), ICU team and consulting services. -directing the formulation of the overall plan of care outlined below. Dispo: This patient is critically ill with dysfunction of at least one organ system and is at risk for life threatening deterioration necessitating complex medical decision making and ongoing provision of ICU care. Staff name: Bakari Wu MD Date: 03/13/2017 * Bakari Wu - 03/12/2017 11:05 PM INTERVENTIONIST Formatting of this note may be different from the original. Neuroscience Critical Care Progress Note Naren Mayfield Admission Date: 03/09/2017 LOS: 3 days ATTESTATION This note is associated with the NEICU team note dated today. Date of Service: 03/12/2017 51 year old male with past medical history significant for ruptured M2 aneurysm. Mr Mayfield has no further elevated ICP issues and is awake on exam. TCD's have been non-concerning He has had good bp control with the addition of meds yesterday and the removal of fluid on dialysis Will evaluate for extubation tomorrow: before extubation, will wean vent and sedation, will determine the duration of the epidural drain and if the patient can sit up, will drain pleural fluid preferably with a pigtail to drain fluid over several days as I expect a large volume will be present. His femoral sheaths have nettie removed. HD again today with 2.5L removed. Tube feeds running, will hold npo at midnight 1u prbc administered during dialysis for anemia hgb 6.8. I have seen, personally fully evaluated, and discussed patient with the NEICU team. I agree with the objective findings and agree with the plan of care as documented by the resident with the exceptions noted. The patient is critically ill with SAH. Active hospital problems include: Principal Problem: 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HCC) Active Problems: IVH (intraventricular hemorrhage) (HCC) Intraparenchymal hematoma of brain (HCC) Subarachnoid bleed (HCC) I spent 70 minutes (excluding time spent performing or supervising any procedures) providing and personally directing critical care services including -review of serial neurologic, hemodynamic, respiratory, telemetry, laboratory and imaging data -management of fluids/electrolytes, antibiotics, vasoactive medications, gas exchange/mechanical ventilation, sepsis protocol, ICU prophylaxis, and ICU core measures -pain/sedation/delirium management -medication review and management -organization and coordination of care with patient (or surrogate), ICU team and consulting services. -directing the formulation of the overall plan of care outlined below. Dispo: This patient is critically ill with dysfunction of at least one organ system and is at risk for life threatening deterioration necessitating complex medical decision making and ongoing provision of ICU care. 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 CT was done at OSH and demonstrated SAH and a possible MCA aneurysm. Patient was then transferred to for further care and management. Hospital and ICU course: 03/09: Admit NEICU. CTA. Angiogram 03/10: To OR for clipping, emergent return to OR due to epidural bleed kept intubated 03/11: Dialysis, remains intubated. 03/12: Sheaths to be d/c'd today corpak placed. wean trial today Neuro: IPH rt temporal lobe, SAH rt frontotemporal lobe Escobar and Moore Grade (on admission): 4 Modified Stone Grade (on admission): 3 Evidence of hydrocephalus:No EVD at: N/A Sodium Goal:135-145 - 03/09 CTA Head: 1. Large saccular aneurysm projecting laterally from the right MCA bifurcation measuring up to 1.5 cm in maximum diameter. No significant change in surrounding right anterior temporal parenchymal hematoma as well as scattered right convexity subarachnoid hemorrhage. Small amount of layering blood products are noted within the occipital horn of the left lateral ventricle. No progressive ventricular distention to suggest hydrocephalus. Moderate nonspecific white matter disease, likely due to chronic microvascular ischemia. 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 - 03/10 S/p Clipping and craniectomy - UDS + amphetamines - SBP 120-160 - Keppra 1000mg daily after dialysis daily - Nimotop [id number] - Consider 1:1 fluid replacement - TCDs Daily - Neuro-ICU monitoring, neurochecks q 1 hrs Sedation/Pain Management: Yes - Precedex drip for sedation - Fentanyl PRN - Assess for delirium daily Cardiac: HTN, HLD - SBP goal: 120-160 - MAP goal > 65 - Cardene drip to meet SBP goal, PRN hydralazine, labetalol - EKG with SR, LVH - 03/11 Restart BACK TUFTER minoxidil and metoprolol BID - 03/11 ECHO EF 55% Respiratory: Pleural effusion Date of Intubation: 03/09/17Reason: Airway protection - AC 450/50%/16/5 - ABG 7.33/ 41/72/20.9 - OSH CXR with near complete opacification of left lung, likely pleural fluid. CXR at [facility] slightly improved - 03/10 CXR: Large left pleural effusion and left lung atelectasis. Slight progression of right basilar atelectasis. Cardiomegaly. - Pulmonary team consulted for plural effusion - PaO2 goal >100, Spo2 goal >95%, PCO2 goal 35-40 torr, chest physiotherapy, bronchotherapy, PD& V q 6 hrs GI: - Feeding: NPO - Gastric tube in place- will assess plan for nutrition and PO access 03/12 - neurosurgery bowel regimen, ensure daily BM Heme: - Hgb 6.8, Plt 139 - assess for coagulopathy, maintain platelets above 100k, INR <1.5 ID: - Tmax 38 - WBC 8.5 - aim for normothermia, Temp <38.3 celsius, normothermia protocol if febrile Renal: ESRDon dialysis - Renal consult - Octavio in place - Aim for normovolemia - K+ 4.5, Na 135 - dialysis daily - 03/12 may consider transfusion 1Unit PRBCs with dialysis Intake/Output Summary (Last 24 hours) at 03/12/17 2305 Last data filed at 03/12/17 2200 Gross per 24 hour Intake 1831.73 ml Output 3551 ml Net -1719.27 ml Endocrine: DM -12 BG on chem 151- will start accuchecks x5 daily with SSI - 03/12 A1C pending - Blood glucose goal 100-180mg/dl FEN: - IVF: No maintenance fluid, on Precedex - Magnesium goal >2.0, i-Jarred goal > 1.0, Potassium goal >4.0 mEq/L Prophylaxis Review: A) GI:[id number] B) Lines:Yes; Arterial Line; Indication: Continuous BP monitoring; Location: Radial C) Urinary Catheter:Yes; Retain cunningham due to: Need for accurate Intake and Output D) Antibiotic Usage:No E) VTE:SCDs F) Isolation:NA G)Seizures:Keppra I) Restraints: Patient assessed for need for restraints. Disposition/Family:NEICU Primary service:NSG Consults: NEICU, Renal __ SUBJECTIVE Naren Mayfield is a 51 y.o. male. Overnight Events: No new events noted. OBJECTIVE Vital Signs: Last Filed Vital Signs: 24 Hour Range ABP: 114/47 (03/12 2100) ART MAP (Calculated) mm H mm Hg (03/12 1000) Temp: 37.3 C (99.1 F) (03/12 2000) Pulse: 58 (03/12 2100) Respirations: 23 PER MINUTE (03/12 2100) SpO2: 93 % (03/12 2100) O2 Delivery: Endotracheal Tube (Oral) (03/12 2100) Weight: 108.8 kg (239 lb 13.8 oz) (03/12 1603) ABP: (114-155)/(47-131) ART MAP (Calculated) mm Hg: [73 mm Hg-92 mm Hg] Temp: [36.9 C (98.5 F)-37.5 C (99.5 F)] Pulse: [58-73] Respirations: [13 PER MINUTE-25 PER MINUTE] SpO2: [90 %-100 %] O2 Delivery: Endotracheal Tube (Oral) Intensity Pain Scale 0-10 (Pain 1): (not recorded) Vitals: 03/11/17 1528 03/12/17 1233 03/12/17 1603 Weight: 114.8 kg (253 lb) 111 kg (244 lb 11.4 oz) 108.8 kg (239 lb 13.8 oz) Artificial airway: Endotracheal Tube Ventilator/ Respiratory Therapy: Yes: Mode: V/AC+ Set Vt (ml): [450 milliliters] Tidal Volume Spont (mL): [398 milliliters-554 milliliters] Set RR: [16 breaths/minutes] Total Respiratory Rate (Breaths/Min): [21 breaths/minutes-29 breaths/minutes] O2%: [40 %] PIP Actual: [6.4 cm H20-20 cm H20] PEEP/CPAP: [5 cm H2O] Vent weaning trial: Per protocol Lines: Arterial Line, Peripheral Line and AV fistula Left ARM Drains: Cunningham Catheter, Nasoduodenal tube, Claude-Cedeño Drain: #1 Scheduled Meds: bisacodyl (DULCOLAX) rectal suppository 10 mg 10 mg Rectal QDAY ceFAZolin (ANCEF) IVP 1 g 1 g Intravenous Q24H* chlorhexidine gluconate (PERIDEX) 0.12 % solution 15 mL 15 mL Swish & Spit BID(8 -20) docusate (COLACE) oral solution 100 mg 100 mg Feeding Tube BID famotidine (PEPCID) injection 20 mg 20 mg Intravenous QHS insulin aspart (NOVOLOG FLEXPEN) injection PEN 0-7 Units 0-7 Units Subcutaneous 5 X Day levETIRAcetam in NaCl (iso-os) (KEPPRA) IVPB (premade) 1,000 mg 100 mL 1,000 mg Intravenous QDAY(12) metoprolol tartrate (LOPRESSOR) tablet 100 mg 100 mg Per NG tube BID milk of magnesia (CONC) oral suspension 10 mL 10 mL Feeding Tube QDAY minoxidil (LONITEN) tablet 10 mg 10 mg Per NG tube BID niMODipine (NYMALIZE) 3 mg/ mL solution 60 mg 60 mg Per OG Tube Q4H senna/docusate (SENOKOT-S) solution 10 mL 10 mL Feeding Tube BID Continuous Infusions: dexmedetomidine (PRECEDEX) 400 mcg/NS 100 ml IV drip 1 mcg/kg/hr (03/12/171914) PRN and Respiratory Meds:acetaminophen Q4H PRN, albuterol 0.5% Q4H PRN, fentaNYL citrate PF Q1H PRN, hydrALAZINE Q6H PRN, ipratropium bromide Q4H PRN, labetalol (NORMODYNE; TRANDATE) injection Q15 MIN PRN, ondansetron Q6H PRN, pancrelipase 20,000 Units/ sodium bicarbonate 650 mg(#) PRN (Production Aide from Rx) Critical Care Vitals: ICP Monitoring: Hemodynamics/Oxycalcs: BP 123/56 | Pulse 58 | Temp 37.3 C (99.1 F) | Ht 172.7 cm (68") | Wt 108.8 kg (239 lb 13.8 oz) | SpO2 93% | BMI 36.47 kg/m2 Mode: V/AC+ Set Vt (ml): [450 milliliters] Tidal Volume Spont (mL): [398 milliliters-554 milliliters] Set RR: [16 breaths/minutes] Total Respiratory Rate (Breaths/Min): [21 breaths/minutes-29 breaths/minutes] O2%: [40 %] PIP Actual: [6.4 cm H20-20 cm H20] PEEP/CPAP: [5 cm H2O] Intake/Output Summary: (Last 24 hours) Intake/Output Summary (Last 24 hours) at 03/12/17 2305 Last data filed at 03/12/17 2200 Gross per 24 hour Intake 1831.73 ml Output 3551 ml Net -1719.27 ml Stool Occurrence: 1 Physical Exam: Blood pressure 123/56, pulse 58, temperature 37.3 C (99.1 F), height 172.7 cm (68"), weight 108.8 kg (239 lb 13.8 oz), SpO2 93 %. General appearance: well-developed, cooperative and mild distress Neurologic: [place] coma score: E: 3 M: 6 V: 1+T FOUR score: E: 4 M: 4 BR: 4 Resp : 1 Pupil exam: Size: 2 Reactivity: brisk - Corneal reflex: R - present L - present - Cough: present - Gag reflex: present RUE: Strength: 3/5 RLE Strength: 3/5 LUE: Strength: 1/5 LLE: Strength: 1/5 Lungs: clear to auscultation bilaterally, diminished breath sounds R base and L base Pulmonary: Mechanical ventilation full vent support for now Heart: regular rate and rhythm, S1, S2 normal Abdomen: soft, non-tender. Bowel sounds normal. No masses, no organomegaly Extremities: extremities normal, atraumatic, no cyanosis or edema Skin: Skin color, texture, turgor normal. No rashes or lesions Lab Review: Pertinent labs reviewed Medications: bisacodyl (DULCOLAX) rectal suppository 10 mg 10 mg Rectal QDAY ceFAZolin (ANCEF) IVP 1 g 1 g Intravenous Q24H* chlorhexidine gluconate (PERIDEX) 0.12 % solution 15 mL 15 mL Swish & Spit BID(8 -20) docusate (COLACE) oral solution 100 mg 100 mg Feeding Tube BID famotidine (PEPCID) injection 20 mg 20 mg Intravenous QHS insulin aspart (NOVOLOG FLEXPEN) injection PEN 0-7 Units 0-7 Units Subcutaneous 5 X Day levETIRAcetam in NaCl (iso-os) (KEPPRA) IVPB (premade) 1,000 mg 100 mL 1,000 mg Intravenous QDAY(12) metoprolol tartrate (LOPRESSOR) tablet 100 mg 100 mg Per NG tube BID milk of magnesia (CONC) oral suspension 10 mL 10 mL Feeding Tube QDAY minoxidil (LONITEN) tablet 10 mg 10 mg Per NG tube BID niMODipine (NYMALIZE) 3 mg/ mL solution 60 mg 60 mg Per OG Tube Q4H senna/docusate (SENOKOT-S) solution 10 mL 10 mL Feeding Tube BID Point of Care Testing: (Last 24 hours): Glucose: (!) 151 (03/12/17 0344) POC Glucose (Download): (!) 139 (03/12/17 1120) Radiology and Other Diagnostic Procedures Review: all noted Bakari Wu Date: 03/12/[phone] * Nicolas Mclaughlin MD - 03/12/2017 5:00 PM INTERVENTIONIST Brief Pulmonary Progress Note Due to required time being flat after femoral sheath removal we will have to delay thoracentesis till tomorrow morning. Given that his FiO2 requirements are decreasing I suspect that the effusion is not causing significant effect on oxygenation and thus thoracentesis should not delay extubation. If there are any clinical changes overnight please page [phone] to have the procedure done urgently * Tracie Mitchell MD - 03/12/2017 4:52 PM INTERVENTIONIST Formatting of this note may be different from the original. Renal Progress Note Name: Naren Mayfield Today's Date: 03/12/2017 Admission Date: 03/09/2017 LOS: 3 days Assessment and Plan Principal Problem: 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HCC) Active Problems: IVH (intraventricular hemorrhage) (HCC) Intraparenchymal hematoma of brain (HCC) Subarachnoid bleed (HCC) Naren Mayfield is a 51 y.o. male with Subarachnoid hemorrhage s/p clipping ESRD on dialysis Large pleural effusion HTN: off cardene drip and well controlled Plan Dialysis performed today for volume I examined him on dialysis He was hemodynamically stable Plan for UF goal of 2.5 L Will follow for dialysis needs Tracie Mitchell MD Pager [phone] Subjective Naren Mayfield is a 51 y.o. male . He was examined on dialysis. Remains sedated. Off cardene drip Medications MEDS bisacodyl 10 mg Rectal QDAY ceFAZolin (ANCEF) IV 1 g Intravenous Q24H* chlorhexidine gluconate 15 mL Swish & Spit BID(8-20) docusate 100 mg Feeding Tube BID famotidine 20 mg Intravenous QHS insulin aspart 0-7 Units Subcutaneous 5 X Day levETIRAcetam (KEPPRA) IVPB 1,000 mg Intravenous QDAY(12) metoprolol tartrate 100 mg Per NG tube BID milk of magnesia (CONC) 10 mL Feeding Tube QDAY minoxidil 10 mg Per NG tube BID niMODipine 60 mg Per OG Tube Q4H senna/docusate 10 mL Feeding Tube BID IV MEDS dexmedetomidine (PRECEDEX) 400 mcg/NS 100 ml IV drip 1 mcg/kg/hr (03/12/17 1517) Prn acetaminophen Q4H PRN 650 mg at 03/12/17 0012, albuterol 0.5% Q4H PRN, fentaNYL citrate PF Q1H PRN 50 mcg at 03/12/17 1002, hydrALAZINE Q6H PRN 10 mg at 03/09/17 2134, ipratropium bromide Q4H PRN, labetalol (NORMODYNE; TRANDATE) injection Q15 MIN PRN 10 mg at 03/11/17 1152, ondansetron Q6H PRN, pancrelipase 20,000 Units/ sodium bicarbonate 650 mg(#) PRN (Production Aide from Rx), sodium chloride 0.9% (NS) IP Dialysis PRN, sodium chloride 0.9% (NS) IP Dialysis PRN, sodium chloride 0.9% (NS) IP Dialysis PRN Physical Exam Vital Signs: Last Filed In 24 Hours Vital Signs: 24 Hour Range Temp: 37.1 C (98.8 F) (03/12 1603) Pulse: 63 (03/12 1603) Respirations: 14 PER MINUTE (03/12 1603) SpO2: 95 % (03/12 1603) O2 Delivery: Endotracheal Tube (Oral) (03/12 1603) SpO2 Pulse: 63 (03/12 1603) ABP: (115-160)/(50-69) ART MAP (Calculated) mm Hg: [73 mm Hg-92 mm Hg] Temp: [36.9 C (98.5 F)-38 C (100.4 F)] Pulse: [58-73] Respirations: [13 PER MINUTE-25 PER MINUTE] SpO2: [90 %-100 %] O2 Delivery: Endotracheal Tube (Oral) Intake/Output Summary (Last 24 hours) at 03/12/17 1653 Last data filed at 03/12/17 1603 Gross per 24 hour Intake 1608.53 ml Output 3916 ml Net -2307.47 ml Vitals: 03/11/17 1528 03/12/17 1233 03/12/17 1603 Weight: 114.8 kg (253 lb) 111 kg (244 lb 11.4 oz) 108.8 kg (239 lb 13.8 oz) Gen: sedated CV: no JVD, S1 and S2 normal, no rubs, murmurs or gallops Pulm: decreased breath sounds at bases GI: BS+ x4, non-tender to palpation Neuro: sedated Ext: no edema Skin: no rash Labs Recent Labs 03/09/17 [id number]/10/[id number]/11/17 0355 03/12/17 0344 NA 132* 134* 133* 135* 135* K 3.5 3.4* 4.1 4.0 4.5 CL 95* 96* 98 101 101 CO2 29 28 21 20* 21 GAP 8 10 14* 14* 13* BUN 36* 38* 43* 45* 36* CR 6.24* 6.46* 8.05* 8.60* 7.24* GLU 83 91 101* 100 151* CA 8.4* 8.4* 8.2* 7.6* 7.9* ALBUMIN 3.7 -- -- -- -- MG 2.1 2.2 -- 2.1 2.2 PO4 6.0* 6.1* 8.1* 9.1* 8.7* HGBA1C -- -- -- -- 5.2 Recent Labs 03/09/17 [id number]/11/17 0050 03/11/17 0355 03/11/17 0607 03/11/17 0843 03/12/17 0344 WBC 7.4 8.6 9.0 -- 8.2 -- -- 8.5 HGB 8.6* 9.0* 9.1* -- 7.5* -- -- 6.8* HCT 26.3* 25.5* 27.7* -- 22.6* -- -- 19.8* PLTCT 164 152 157 -- 159 -- -- 138* INR 1.3* -- 1.3* -- -- -- -- -- PTT 31.9 -- 29.8 -- -- -- -- -- AST 21 -- -- -- -- -- -- -- ALT 14 -- -- -- -- -- -- -- ALKPHOS 61 -- -- -- -- -- -- -- TNI -- -- 0.16* 0.13* 0.15* 0.16* 0.17* -- Estimated Creatinine Clearance: 14.8 mL/min (based on Cr of 7.24). Vitals: 03/11/17 1528 03/12/17 1233 03/12/17 1603 Weight: 114.8 kg (253 lb) 111 kg (244 lb 11.4 oz) 108.8 kg (239 lb 13.8 oz) Recent Labs 03/12/17 0344 03/12/17 1014 PHART 7.35 7.33* PO2ART 132* 72* Tracie Mitchell MD Pager [phone] * Marta Soto, OT - 03/12/2017 9:44 AM INTERVENTIONIST OCCUPATIONAL THERAPY NO TREATMENT NOTE The patient was not seen due to: pt still with sheaths in place. Will follow up tomorrow as appropriate. Therapist: Marta Soto, OT Date: 03/12/2017 * Geoffrey Guerra, WELFARE AIDE - 03/12/2017 6:44 AM INTERVENTIONIST Formatting of this note may be different from the original. Neuroscience Critical Care Progress Note Naren Mayfield Admission Date: 03/09/2017 LOS: 3 days ASSESSMENT/PLAN Patient Active Problem List Diagnosis Date Noted IVH (intraventricular hemorrhage) (HCC) 03/09/2017 Intraparenchymal hematoma of brain (HCC) 03/09/2017 Subarachnoid bleed (HCC) 03/09/2017 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[facility]) 03/09/2017 Added automatically from request for surgery [id number] Naren Mayfieldis a 51 y.o.malewith PMH of HLD, HTN, renal failure, dialysis, and diabetes presenting from OSH after being at dialysis 03/09when he became acutely unresponsive. CT was done at OSH and demonstrated SAH and a possible MCA aneurysm. Patient was then transferred to for further care and management. Hospital and ICU course: 03/09: Admit NEICU. CTA. Angiogram 03/10: To OR for clipping, emergent return to OR due to epidural bleed kept intubated 03/11: Dialysis, remains intubated. 03/12: Sheaths to be d/c'd today corpak placed. wean trial today Neuro: IPH rt temporal lobe, SAH rt frontotemporal lobe Escobar and Moore Grade (on admission): 4 Modified Stone Grade (on admission): 3 Evidence of hydrocephalus:No EVD at: N/A Sodium Goal:135-145 - 03/09 CTA Head: 1. Large saccular aneurysm projecting laterally from the right MCA bifurcation measuring up to 1.5 cm in maximum diameter. No significant change in surrounding right anterior temporal parenchymal hematoma as well as scattered right convexity subarachnoid hemorrhage. Small amount of layering blood products are noted within the occipital horn of the left lateral ventricle. No progressive ventricular distention to suggest hydrocephalus. Moderate nonspecific white matter disease, likely due to chronic microvascular ischemia. 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 - 03/10 S/p Clipping and craniectomy - UDS + amphetamines - SBP 120-160 - Keppra 1000mg daily after dialysis daily - Nimotop [id number] - Consider 1:1 fluid replacement - TCDs Daily - Neuro-ICU monitoring, neurochecks q 1 hrs Sedation/Pain Management: Yes - Precedex drip for sedation - Fentanyl PRN - Assess for delirium daily Cardiac: HTN, HLD - SBP goal: 120-160 - MAP goal > 65 - Cardene drip to meet SBP goal, PRN hydralazine, labetalol - EKG with SR, LVH - 03/11 Restart BACK TUFTER minoxidil and metoprolol BID - 03/11 ECHO EF 55% Respiratory: Pleural effusion Date of Intubation: 03/09/17Reason: Airway protection - AC 450/50%/16/5 - ABG 7.33/ 41/72/20.9 - OSH CXR with near complete opacification of left lung, likely pleural fluid. CXR at slightly improved - 03/10 CXR: Large left pleural effusion and left lung atelectasis. Slight progression of right basilar atelectasis. Cardiomegaly. - Pulmonary team consulted for plural effusion - PaO2 goal >100, Spo2 goal >95%, PCO2 goal 35-40 torr, chest physiotherapy, bronchotherapy, PD& V q 6 hrs GI: - Feeding: NPO - Gastric tube in place- will assess plan for nutrition and PO access 03/12 - neurosurgery bowel regimen, ensure daily BM Heme: - Hgb 6.8, Plt 139 - assess for coagulopathy, maintain platelets above 100k, INR <1.5 ID: - Tmax 38 - WBC 8.5 - aim for normothermia, Temp <38.3 celsius, normothermia protocol if febrile Renal: ESRDon dialysis - Renal consult - Cunningham in place - Aim for normovolemia - K+ 4.5, Na 135 - dialysis daily - 03/12 may consider transfusion 1Unit PRBCs with dialysis Intake/Output Summary (Last 24 hours) at 03/12/17 0646 Last data filed at 03/12/17 0600 Gross per 24 hour Intake 1584.5 ml Output 5452 ml Net -3867.5 ml Endocrine: DM -03/12 BG on chem 151- will start accuchecks x5 daily with SSI - 03/12 A1C pending - Blood glucose goal 100-180mg/dl FEN: - IVF: No maintenance fluid, on Precedex - Magnesium goal >2.0, i-Jarred goal > 1.0, Potassium goal >4.0 mEq/L Prophylaxis Review: A) GI:[id number] B) Lines:Yes; Arterial Line; Indication: Continuous BP monitoring; Location: Radial C) Urinary Catheter:Yes; Retain cunningham due to: Need for accurate Intake and Output D) Antibiotic Usage:No E) VTE:SCDs F) Isolation:NA G)Seizures:Keppra I) Restraints: Patient assessed for need for restraints. Disposition/Family:NEICU [place] [place]: [place], Renal __ SUBJECTIVE Naren Mayfield is a 51 y.o. male. Overnight Events: No new events noted. OBJECTIVE Vital Signs: Last Filed Vital Signs: 24 Hour Range BP: 123/56 (03/11 1528) ABP: 127/53 (03/12 0600) ART MAP (Calculated) mm H mm Hg (03/12 600) Temp: 37.1 C (98.8 F) (03/12 400) Pulse: 58 (03/12 600) Respirations: 18 PER MINUTE (03/12 600) SpO2: 100 % (03/12 600) O2 Delivery: Endotracheal Tube (Oral) (03/12 600) Height: 172.7 cm (68") (03/11 1528) Weight: 114.8 kg (253 lb) (03/11 1528) BP: (123)/(56) ABP: (120-160)/(51-69) ART MAP (Calculated) mm Hg: [74 mm Hg-92 mm Hg] Temp: [36.9 C (98.5 F)-38 C (100.4 F)] Pulse: [58-82] Respirations: [15 PER MINUTE-29 PER MINUTE] SpO2: [94 %-100 %] O2 Delivery: Endotracheal Tube (Oral) Intensity Pain Scale 0-10 (Pain 1): (not recorded) Vitals: 03/11/17 1000 03/11/17 1400 03/11/171527 Weight: 118.3 kg (260 lb 12.9 oz) 114.1 kg (251 lb 8.7 oz) 114.8 kg (253 lb) Artificial airway: Endotracheal Tube Ventilator/ Respiratory Therapy: Yes: Weaning readiness screen (RT Only):: Implement protocol PaO2 (Manual entry): [132 MMHG] FiO2 (Manual entry): [0.6] P/F Ratio (Calculated): [220] Mode: V/AC+ Set Vt (ml): [450 milliliters] Tidal Volume Spont (mL): [492 milliliters-674 milliliters] Set RR: [16 breaths/minutes] Total Respiratory Rate (Breaths/Min): [18 breaths/minutes-21 breaths/minutes] O2%: [60 %] PIP Actual: [4.9 cm H20-13 cm H20] PEEP/CPAP: [5 cm H2O] Spontaneous Breathing Trial (RT Only): Implement protocol Vent weaning trial: Per protocol Lines: Arterial Line, Peripheral Line and AV fistula Left ARM Drains: [place] Catheter, Nasoduodenal tube, Claude-Cedeño Drain: #1 Scheduled Meds: bisacodyl (DULCOLAX) rectal suppository 10 mg 10 mg Rectal QDAY ceFAZolin (ANCEF) IVP 1 g 1 g Intravenous Q24H* chlorhexidine gluconate (PERIDEX) 0.12 % solution 15 mL 15 mL Swish & Spit BID(8 -20) docusate (COLACE) oral solution 100 mg 100 mg Feeding Tube BID famotidine (PEPCID) injection 20 mg 20 mg Intravenous QHS levETIRAcetam in NaCl (iso-os) (KEPPRA) IVPB (premade) 1,000 mg 100 mL 1,000 mg Intravenous QDAY(12) metoprolol tartrate (LOPRESSOR) tablet 100 mg 100 mg Per NG tube BID milk of magnesia (CONC) oral suspension 10 mL 10 mL Feeding Tube QDAY minoxidil (LONITEN) tablet 10 mg 10 mg Per NG tube BID niMODipine (NYMALIZE) 3 mg/ mL solution 60 mg 60 mg Per OG Tube Q4H senna/docusate (SENOKOT-S) solution 10 mL 10 mL Feeding Tube BID Continuous Infusions: dexmedetomidine (PRECEDEX) 400 mcg/NS 100 ml IV drip 1 mcg/kg/hr (03/12/17 0619) niCARdipine (cardENE) 20 mg/NS 200 mL infusion (std conc)(premade) Stopped (03/11/17 1140) propofol (DIPRIVAN) 10 mg/mL IV infusion Stopped (03/11/17 1313) PRN and Respiratory Meds:acetaminophen Q4H PRN, albuterol 0.5% Q4H PRN, fentaNYL citrate PF Q1H PRN, hydrALAZINE Q6H PRN, ipratropium bromide Q4H PRN, labetalol (NORMODYNE; TRANDATE) injection Q15 MIN PRN, ondansetron Q6H PRN, sodium chloride 0.9% (NS) IP Dialysis PRN, sodium chloride 0.9% (NS) IP Dialysis PRN Critical Care Vitals: ICP Monitoring: Hemodynamics/Oxycalcs: BP 123/56 | Pulse 58 | Temp 37.1 C (98.8 F) | Ht 172.7 cm (68") | Wt 114.8 kg (253 lb) | SpO2 100% | BMI 38.47 kg/m2 Weaning readiness screen (RT Only):: Implement protocol PaO2 (Manual entry): [132 MMHG] FiO2 (Manual entry): [0.6] P/F Ratio (Calculated): [220] Mode: V/AC+ Set Vt (ml): [450 milliliters] Tidal Volume Spont (mL): [492 milliliters-674 milliliters] Set RR: [16 breaths/minutes] Total Respiratory Rate (Breaths/Min): [18 breaths/minutes-21 breaths/minutes] O2%: [60 %] PIP Actual: [4.9 cm H20-13 cm H20] PEEP/CPAP: [5 cm H2O] Spontaneous Breathing Trial (RT Only): Implement protocol Intake/Output Summary: (Last 24 hours) Intake/Output Summary (Last 24 hours) at 03/12/17 0645 Last data filed at 03/12/17 0600 Gross per 24 hour Intake 1584.5 ml Output 5452 ml Net -3867.5 ml Physical Exam: Blood pressure 123/56, pulse 58, temperature 37.1 C (98.8 F), height 172.7 cm (68"), weight 114.8 kg (253 lb), SpO2 100 %. General appearance: well-developed, cooperative and mild distress Neurologic: [place] coma score: E: 3 M: 6 V: 1+T FOUR score: E: 4 M: 4 BR: 4 Resp : 1 Pupil exam: Size: 2 Reactivity: brisk - Corneal reflex: R - present L - present - Cough: present - Gag reflex: present RUE: Strength: 3/5 RLE Strength: 3/5 LUE: Strength: 1/5 LLE: Strength: 1/5 Lungs: clear to auscultation bilaterally, diminished breath sounds R base and L base Pulmonary: Mechanical ventilation full vent support for now Heart: regular rate and rhythm, S1, S2 normal Abdomen: soft, non-tender. Bowel sounds normal. No masses, no organomegaly Extremities: extremities normal, atraumatic, no cyanosis or edema Skin: Skin color, texture, turgor normal. No rashes or lesions Lab Review: Pertinent labs reviewed Medications: bisacodyl (DULCOLAX) rectal suppository 10 mg 10 mg Rectal QDAY ceFAZolin (ANCEF) IVP 1 g 1 g Intravenous Q24H* chlorhexidine gluconate (PERIDEX) 0.12 % solution 15 mL 15 mL Swish & Spit BID(8 -20) docusate (COLACE) oral solution 100 mg 100 mg Feeding Tube BID famotidine (PEPCID) injection 20 mg 20 mg Intravenous QHS levETIRAcetam in NaCl (iso-os) (KEPPRA) IVPB (premade) 1,000 mg 100 mL 1,000 mg Intravenous QDAY(12) metoprolol tartrate (LOPRESSOR) tablet 100 mg 100 mg Per NG tube BID milk of magnesia (CONC) oral suspension 10 mL 10 mL Feeding Tube QDAY minoxidil (LONITEN) tablet 10 mg 10 mg Per NG tube BID niMODipine (NYMALIZE) 3 mg/ mL solution 60 mg 60 mg Per OG Tube Q4H senna/docusate (SENOKOT-S) solution 10 mL 10 mL Feeding Tube BID Point of Care Testing: (Last 24 hours): Glucose: (!) 151 (03/12/17 0344) Radiology and Other Diagnostic Procedures Review: all noted I spent 50 minutes managing the care of this patient. Mr Mayfield is critically ill. Cares included: detailed neurologic and systems exam, medication review, laboratory data review and interpretation, electrolyte management, review of available imaging, DVT/PE prophylaxis review, diet review, activity review, mechanical ventilation and sedation management, and coordination of care with consulted teams Geoffrey Guerra, ROLO Date: 03/12/[phone] * Bakari Wu - 03/11/2017 6:00 PM INTERVENTIONIST Formatting of this note may be different from the original. Neuroscience Critical Care Progress Note Naren Mayfield Admission Date: 03/09/2017 LOS: 2 days ATTESTATION This note is associated with the NEICU team note dated today. Date of Service: 03/11/2017 51 year old male with past medical history significant for R MCA aneurysm with SAH, IPH, small IVH, ESRD on HD with bleed on dialysis 2 days ago. R MCA aneurysm was greater than 1.5cm and has subsequently been clipped. Takeback to OR after blown right pupil due to epidural hematoma with epidural evacuation, craniectomy for decompression and removal of 1 of 2 clips. Positive amphetamines on arrival and hx of refractory hypertension requiring multiple medications (7 medications). N: R pupil dilated compared to right on my exam 6mm left was 4mm, both were reactive with consensual response. He was on sedation and I did not get as good of an exam as other providers today. Follow neurochecks q1h. keppra 100bid for prophylaxis after HD due to dialysis Nimotop, TCDs Monitor for hydrocephalus, seizures, vasospasm, herniation syndrome Repeat CT head this afternoon with good evacuation of the hematoma and resolution of the midline shift Arterial and venous femoral sheaths ill stay in place tonight in case repeat angiography is needed tonight, then d/c sheaths when no longer needed. precedex for sedation CV: Refractory hypertension. We restarted his minoxidil 10 bid -whic is his home dose, and we restarted his metoprolol at 100 BID- which is half his home dose. With this intervention he was able to come off nicardipine gtt and stay with in his target bp range 120-160. Will continue to hold amlodipine, losartan , and doxazosin and his diuretics furosemide and metolazone. Hopefully he will abstain from stimulants in the future. Troponin elevated from ESRD. Abnormal EKG, lateral leads with ST elevation. No on going ischemia. Resp: Very large left pleural effusion. >2L. We will limit the thoracentesis to 2L tomorrow, may benefit from pigtail catheter to avoid overdrainage at one time. Will send for Light's criteria, pH, cell count, and culture. Ths is strange to occur on the left side if related to ESRD and fluid overload. Per his girlfriend he sleeps in an upright kneeling position slumped over a rest. He may have very chronic pleural effusion. erspiratory failure due to SAH and neurologic state. However he is tachypnea and labored on the ventilator, likely with some dyspnea due to pleural effusion. Renal: ESRD, 4L dialysis today. Left arm fistula works well. Near anuria Hypocalcemia Hyponatremia resolved 134->135. He potenially has the beginnings of a metabolic acidosis, Hyperphosphatemia - when tube feeds restarted will need dialysis tube feed and phosphate binder. GI: OG output is considerable. May have poor gut function due to gut edema from volume overload. GI prophylaxis with pepcid ID: no current infection. Prophylactic ancef for evd today. Endo: glucose Heme: anemia hgb 7.5. mcv 91 I have seen, personally fully evaluated, and discussed patient with the NEICU team. I agree with the objective findings and agree with the plan of care as documented by the resident with the exceptions noted. The patient is critically ill with SAH. Active hospital problems include: Principal Problem: 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HCC) Active Problems: IVH (intraventricular hemorrhage) (HCC) Intraparenchymal hematoma of brain (HCC) Subarachnoid bleed (HCC) I spent 70 minutes (excluding time spent performing or supervising any procedures) providing and personally directing critical care services including -review of serial neurologic, hemodynamic, respiratory, telemetry, laboratory and imaging data -management of fluids/electrolytes, antibiotics, vasoactive medications, gas exchange/mechanical ventilation, sepsis protocol, ICU prophylaxis, and ICU core measures -pain/sedation/delirium management -medication review and management -organization and coordination of care with patient (or surrogate), ICU team and consulting services. -directing the formulation of the overall plan of care outlined below. Dispo: This patient is critically ill with dysfunction of at least one organ system and is at risk for life threatening deterioration necessitating complex medical decision making and ongoing provision of ICU care. Staff name: Bakari Wu MD Date: 03/11/2017 ASSESSMENT/PLAN Patient Active Problem List Diagnosis Date Noted IVH (intraventricular hemorrhage) (HCC) 03/09/2017 Intraparenchymal hematoma of brain (HCC) 03/09/2017 Subarachnoid bleed (HCC) 03/09/2017 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HCC) 03/09/2017 Added automatically from request for surgery [id number] Naren Mayfield is a 51 y.o. male with PMH of HLD, HTN, renal failure, dialysis , and diabetes presenting from OSH after being at dialysis 03/09when he became acutely unresponsive. CT was done at OSH and demonstrated SAH and a possible MCA aneurysm. Patient was then transferred to for further care and management. Hospital and ICU course: 03/09: Admit NEICU. CTA. Angiogram 03/10: To OR for clipping Neuro: IPH rt temporal lobe, SAH rt frontotemporal lobe Escobar and Moore Grade (on admission): 4 Modified Stone Grade (on admission): 3 Evidence of hydrocephalus:No EVD at: N/A Sodium Goal:135-145 - 03/09 CTA Head: 1. Large saccular aneurysm projecting laterally from the right MCA bifurcation measuring up to 1.5 cm in maximum diameter. No significant change in surrounding right anterior temporal parenchymal hematoma as well as scattered right convexity subarachnoid hemorrhage. Small amount of layering blood products are noted within the occipital horn of the left lateral ventricle. No progressive ventricular distention to suggest hydrocephalus. Moderate nonspecific white matter disease, likely due to chronic microvascular ischemia. 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 - 03/10 S/p Clipping and craniectomy - UDS + amphetamines - SBP 120-160 - Keppra 1000mg daily after dialysis daily - Nimotop [id number] - Consider 1:1 fluid replacement - TCDs Daily - Neuro-ICU monitoring, neurochecks q 1 hrs Sedation/Pain Management: Yes - Wean Propofol as able, Precedex drip available - Fentanyl PRN - Assess for delirium daily Cardiac: HTN, HLD - SBP goal: 120-160 - MAP goal > 65 - Cardene drip to meet SBP goal, PRN hydralazine, labetalol - EKG with SR, LVH - 03/11 Restart BACK TUFTER minoxidil and metoprolol BID - ECHO this AM Respiratory: Pleural effusion Date of Intubation: 03/09/17Reason: Airway protection - AC 450/50%/21/08 - ABG pending - OSH CXR with near complete opacification of left lung, likely pleural fluid. CXR at [facility] slightly improved - 03/10 CXR: Large left pleural effusion and left lung atelectasis. Slight progression of right basilar atelectasis. Cardiomegaly. - Pulmonary team consulted for plural effusion - PaO2 goal >100, Spo2 goal >95%, PCO2 goal 35-40 torr, chest physiotherapy, bronchotherapy, PD& V q 6 hrs GI: - Feeding: NPO - Gastric tube in place- will assess plan for nutrition and PO access 03/12 - neurosurgery bowel regimen, ensure daily BM Heme: - Hgb 7.5 Plt 159 - assess for coagulopathy, maintain platelets above 100k, INR <1.5 ID: - Tmax 37 - WBC 8.2 - aim for normothermia, Temp <38.3 celsius, normothermia protocol if febrile Renal: ESRD on dialysis - Renal consult - Cunningham in place - Aim for normovolemia - K+ 4.0, Na 135 - dialysis daily - 03/11 plan for 4 liters removal today Intake/Output Summary (Last 24 hours) at 03/11/17 1800 Last data filed at 03/11/17 1600 Gross per 24 hour Intake 3226.73 ml Output 4669 ml Net -1442.27 ml Endocrine: DM -03/11 BG on chem 100 - Blood glucose goal 100-180mg/dl FEN: - IVF: No maintenance fluid, on Cardene drip, Propofol and Precedex- wean as able - Magnesium goal >2.0, i-Jarred goal > 1.0, Potassium goal >4.0 mEq/L Prophylaxis Review: A) [id number] B) Lines:Yes; Arterial Line; Indication: Continuous BP monitoring; Location: Radial C) Urinary Catheter:Yes; Retain cunningham due to: Need for accurate Intake and Output D) Antibiotic Usage:No E) VTE:SCDs F) Isolation:NA G)Seizures:Keppra I) Restraints: Patient assessed for need for restraints. Disposition/Family:NEICU Primary service:NSG Consults: NEICU, Renal __ SUBJECTIVE Naren Mayfield is a 51 y.o. male. Overnight Events: Significant event: returned emergently to the OR overnight due bleeding. Now S/p Craniectomy . OBJECTIVE Vital Signs: Last Filed Vital Signs: 24 Hour Range BP: 123/56 (03/11 1528) ABP: 142/59 (03/11 175) ART MAP (Calculated) mm H mm Hg (03/11 1700) Temp: 37.3 C (99.2 F) (03/11 1600) Pulse: 64 (03/11 1751) Respirations: 20 PER MINUTE (03/11 175) SpO2: 94 % (03/11 1751) O2 Delivery: Endotracheal Tube (Oral) (03/11 1700) Height: 172.7 cm (68") (03/11 1528) Weight: 114.8 kg (253 lb) (03/11 1528) BP: (123-151)/(56-73) ABP: (123-170)/(53-74) ART MAP (Calculated) mm Hg: [80 mm Hg-106 mm Hg] Temp: [36.9 C (98.5 F)-37.3 C (99.2 F)] Pulse: [64-82] Respirations: [0 PER MINUTE-29 PER MINUTE] SpO2: [90 %-100 %] O2 Delivery: Endotracheal Tube (Oral) Intensity Pain Scale 0-10 (Pain 1): (not recorded) Vitals: 03/11/17 1000 03/11/17 1400 03/11/171527 Weight: 118.3 kg (260 lb 12.9 oz) 114.1 kg (251 lb 8.7 oz) 114.8 kg (253 lb) Artificial airway: Endotracheal Tube Ventilator/ Respiratory Therapy: Yes: Mode: V/AC+ Set Vt (ml): [450 milliliters] Tidal Volume Spont (mL): [414 milliliters-556 milliliters] Set RR: [16 breaths/minutes] Total Respiratory Rate (Breaths/Min): [20 breaths/minutes-28 breaths/minutes] O2%: [60 %-80 %] PIP Actual: [6 cm H20-8.9 cm H20] PEEP/CPAP: [5 cm H2O] PSupport: [5 cm H20] Vent weaning trial: Per protocol Lines: Central Line, Dialysis Catheter, Arterial Line and Peripheral Line Drains: Cunningham Catheter, Nasogastric tube and Claude-Cedeño Drain: #1 Scheduled Meds: bisacodyl (DULCOLAX) rectal suppository 10 mg 10 mg Rectal QDAY ceFAZolin (ANCEF) IVP 1 g 1 g Intravenous Q24H* chlorhexidine gluconate (PERIDEX) 0.12 % solution 15 mL 15 mL Swish & Spit BID(8 -20) docusate (COLACE) oral solution 100 mg 100 mg Feeding Tube BID famotidine (PEPCID) injection 20 mg 20 mg Intravenous QHS [START ON 03/12/2017] levETIRAcetam in NaCl (iso-os) (KEPPRA) IVPB (premade) 1, 000 mg 100 mL 1,000 mg Intravenous QDAY(12) metoprolol tartrate (LOPRESSOR) tablet 100 mg 100 mg Per NG tube BID milk of magnesia (CONC) oral suspension 10 mL 10 mL Feeding Tube QDAY minoxidil (LONITEN) tablet 10 mg 10 mg Per NG tube BID niMODipine (NYMALIZE) 3 mg/ mL solution 60 mg 60 mg Per OG Tube Q4H senna/docusate (SENOKOT-S) solution 10 mL 10 mL Feeding Tube BID Continuous Infusions: dexmedetomidine (PRECEDEX) 400 mcg/NS 100 ml IV drip 1 mcg/kg/hr (03/11/17 1453) niCARdipine (cardENE) 20 mg/NS 200 mL infusion (std conc)(premade) Stopped (03/11/17 1140) propofol (DIPRIVAN) 10 mg/mL IV infusion Stopped (03/11/17 1313) PRN and Respiratory Meds:albuterol 0.5% Q4H PRN, fentaNYL citrate PF Q1H PRN, hydrALAZINE Q6H PRN, ipratropium bromide Q4H PRN, labetalol (NORMODYNE; TRANDATE ) injection Q15 MIN PRN, ondansetron Q6H PRN, sodium chloride 0.9% (NS) IP Dialysis PRN, sodium chloride 0.9% (NS) IP Dialysis PRN, sodium chloride 0.9% ( NS) IP Dialysis PRN Critical Care Vitals: ICP Monitoring: Hemodynamics/Oxycalcs: BP 123/56 | Pulse 64 | Temp 37.3 C (99.2 F) | Ht 172.7 cm (68") | Wt 114.8 kg (253 lb) | SpO2 94% | BMI 38.47 kg/m2 Mode: V/AC+ Set Vt (ml): [450 milliliters] Tidal Volume Spont (mL): [414 milliliters-556 milliliters] Set RR: [16 breaths/minutes] Total Respiratory Rate (Breaths/Min): [20 breaths/minutes-28 breaths/minutes] O2%: [60 %-80 %] PIP Actual: [6 cm H20-8.9 cm H20] PEEP/CPAP: [5 cm H2O] PSupport: [5 cm H20] Intake/Output Summary: (Last 24 hours) Intake/Output Summary (Last 24 hours) at 03/11/17 1800 Last data filed at 03/11/17 1600 Gross per 24 hour Intake 3226.73 ml Output 4669 ml Net -1442.27 ml Physical Exam: Blood pressure 123/56, pulse 64, temperature 37.3 C (99.2 F), height 172.7 cm (68"), weight 114.8 kg (253 lb), SpO2 94 %. General appearance: well-developed, cooperative and mild distress Neurologic: Dylan coma score: E: 3 M: 6 V: 1+T FOUR score: E: 4 M: 4 BR: 4 Resp : 1 Pupil exam: Size: 2 Reactivity: brisk - Corneal reflex: R - present L - present - Cough: present - Gag reflex: present EOM: LOS- sedated, right periorbital edema RUE: Strength: 3/5 RLE Strength: 3/5 LUE: Strength: 1/5 LLE: Strength: 1/5 Lungs: clear to auscultation bilaterally, diminished breath sounds R base and L base Pulmonary: Mechanical ventilation full vent support for now Heart: regular rate and rhythm, S1, S2 normal Abdomen: soft, non-tender. Bowel sounds normal. No masses, no organomegaly Extremities: extremities normal, atraumatic, no cyanosis or edema Skin: Skin color, texture, turgor normal. No rashes or lesions Lab Review: Pertinent labs reviewed Medications: bisacodyl (DULCOLAX) rectal suppository 10 mg 10 mg Rectal QDAY ceFAZolin (ANCEF) IVP 1 g 1 g Intravenous Q24H* chlorhexidine gluconate (PERIDEX) 0.12 % solution 15 mL 15 mL Swish & Spit BID(8 -20) docusate (COLACE) oral solution 100 mg 100 mg Feeding Tube BID famotidine (PEPCID) injection 20 mg 20 mg Intravenous QHS [START ON 03/12/2017] levETIRAcetam in NaCl (iso-os) (KEPPRA) IVPB (premade) 1, 000 mg 100 mL 1,000 mg Intravenous QDAY(12) metoprolol tartrate (LOPRESSOR) tablet 100 mg 100 mg Per NG tube BID milk of magnesia (CONC) oral suspension 10 mL 10 mL Feeding Tube QDAY minoxidil (LONITEN) tablet 10 mg 10 mg Per NG tube BID niMODipine (NYMALIZE) 3 mg/ mL solution 60 mg 60 mg Per OG Tube Q4H senna/docusate (SENOKOT-S) solution 10 mL 10 mL Feeding Tube BID Point of Care Testing: (Last 24 hours): Glucose: 100 (03/11/17 0355) Radiology and Other Diagnostic Procedures Review: all noted Bakari Wintersamp Date: 03/11/[phone] * Caorle Sloan, PT - 03/11/2017 3:31 PM INTERVENTIONIST PHYSICAL THERAPY NOTE Discussed case with bedside RN, patient is currently requiring increased oxygen demands and not appropriate for physical therapy intervention. Physical therapy will continue to follow and provide intervention as indicated. Therapist: Carole Sloan, PT Date: 03/11/2017 * Marta Soto, OT - 03/11/2017 3:05 PM INTERVENTIONIST OCCUPATIONAL THERAPY NO TREATMENT NOTE The patient was not seen due to: getting bedside test. Still on 80% FiO2, but likely to wean later per RN. Will follow up tomorrow. Therapist: Marta Soto, OT Date: 03/11/2017 * Melisa Dailey, RT - 03/11/2017 8:22 AM INTERVENTIONIST No wean till after dialysis per RN team * Geoffrey Guerra APRN - 03/11/2017 6:11 AM INTERVENTIONIST Formatting of this note may be different from the original. Neuroscience Critical Care Progress Note Naren Mayfield Admission Date: 03/09/2017 LOS: 2 days ASSESSMENT/PLAN Patient Active Problem List Diagnosis Date Noted IVH (intraventricular hemorrhage) ([facility]) 03/09/2017 Intraparenchymal hematoma of brain ([facility]) 03/09/2017 Subarachnoid bleed ([facility]) 03/09/2017 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[facility]) 03/09/2017 Added automatically from request for surgery [id number] Naren Mayfield is a 51 y.o. male with PMH of HLD, HTN, renal failure, dialysis , and diabetes presenting from OSH after being at dialysis 03/09when he became acutely unresponsive. CT was done at OSH and demonstrated SAH and a possible MCA aneurysm. Patient was then transferred to for further care and management. Hospital and ICU course: 03/09: Admit NEICU. CTA. Angiogram 03/10: To OR for clipping Neuro: IPH rt temporal lobe, SAH rt frontotemporal lobe Escobar and Moore Grade (on admission): 4 Modified Stone Grade (on admission): 3 Evidence of hydrocephalus:No EVD at: N/A Sodium Goal:135-145 - 03/09 CTA Head: 1. Large saccular aneurysm projecting laterally from the right MCA bifurcation measuring up to 1.5 cm in maximum diameter. No significant change in surrounding right anterior temporal parenchymal hematoma as well as scattered right convexity subarachnoid hemorrhage. Small amount of layering blood products are noted within the occipital horn of the left lateral ventricle. No progressive ventricular distention to suggest hydrocephalus. Moderate nonspecific white matter disease, likely due to chronic microvascular ischemia. 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 - 03/10 S/p Clipping and craniectomy - UDS + amphetamines - SBP 120-160 - Keppra 1000mg daily after dialysis daily - Nimotop [id number] - Consider 1:1 fluid replacement - TCDs Daily - Neuro-ICU monitoring, neurochecks q 1 hrs Sedation/Pain Management: Yes - Wean Propofol as able, Precedex drip available - Fentanyl PRN - Assess for delirium daily Cardiac: HTN, HLD - SBP goal: 120-160 - MAP goal > 65 - Cardene drip to meet SBP goal, PRN hydralazine, labetalol - EKG with SR, LVH - 03/11 Restart BACK TUFTER minoxidil and metoprolol BID - ECHO this AM Respiratory: Pleural effusion Date of Intubation: 03/09/17Reason: Airway protection - AC 450/50%/21/08 - ABG pending - OSH CXR with near complete opacification of left lung, likely pleural fluid. CXR at slightly improved - 03/10 CXR: Large left pleural effusion and left lung atelectasis. Slight progression of right basilar atelectasis. Cardiomegaly. - Pulmonary team consulted for plural effusion - PaO2 goal >100, Spo2 goal >95%, PCO2 goal 35-40 torr, chest physiotherapy, bronchotherapy, PD& V q 6 hrs GI: - Feeding: NPO - Gastric tube in place- will assess plan for nutrition and PO access 03/12 - neurosurgery bowel regimen, ensure daily BM Heme: - Hgb 7.5 Plt 159 - assess for coagulopathy, maintain platelets above 100k, INR <1.5 ID: - Tmax 37 - WBC 8.2 - aim for normothermia, Temp <38.3 celsius, normothermia protocol if febrile Renal: ESRD on dialysis - Renal consult - Cunningham in place - Aim for normovolemia - K+ 4.0, Na 135 - dialysis daily - 03/11 plan for 4 liters removal today Intake/Output Summary (Last 24 hours) at 03/11/17 1153 Last data filed at 03/11/17 1000 Gross per 24 hour Intake 4313.87 ml Output 724 ml Net 3589.87 ml Endocrine: DM -03/11 BG on chem 100 - Blood glucose goal 100-180mg/dl FEN: - IVF: No maintenance fluid, on Cardene drip, Propofol and Precedex- wean as able - Magnesium goal >2.0, i-Jarred goal > 1.0, Potassium goal >4.0 mEq/L Prophylaxis Review: A) [id number] B) Lines:Yes; Arterial Line; Indication: Continuous BP monitoring; Location: Radial C) Urinary Catheter:Yes; Retain cunningham due to: Need for accurate Intake and Output D) Antibiotic Usage:No E) VTE:SCDs F) Isolation:NA G)Seizures:Keppra I) Restraints: Patient assessed for need for restraints. Disposition/Family:NEICU Primary service:NSG Consults: NEICU, Renal __ SUBJECTIVE Naren Mayfield is a 51 y.o. male. Overnight Events: Significant event: returned emergently to the OR overnight due bleeding. Now S/p Craniectomy . OBJECTIVE Vital Signs: Last Filed Vital Signs: 24 Hour Range BP: 151/73 (03/10 1830) ABP: 149/62 (03/11 0500) ART MAP (Calculated) mm H mm Hg (03/11 0500) Temp: 37 C (98.6 F) (03/11 400) Pulse: 73 (03/110) Respirations: 23 PER MINUTE (03/11 500) SpO2: 100 % (03/11 500) O2 Delivery: Endotracheal Tube (Oral) (03/11 500) BP: (151)/(73) ABP: (116-170)/(58-74) ART MAP (Calculated) mm Hg: [77 mm Hg-106 mm Hg] Temp: [37 C (98.6 F)] Pulse: [64-73] Respirations: [0 PER MINUTE-23 PER MINUTE] SpO2: [90 %-100 %] O2 Delivery: Endotracheal Tube (Oral) Intensity Pain Scale 0-10 (Pain 1): (not recorded) Vitals: 03/09/17 1525 Weight: 115.1 kg (253 lb 12 oz) Artificial airway: Endotracheal Tube Ventilator/ Respiratory Therapy: Yes: Weaning readiness screen (RT Only):: Implement protocol Weaning readiness screen Met (RT Only):: Other (see comments) PaO2 (Manual entry): [135 MMHG] FiO2 (Manual entry): [0.8] P/F Ratio (Calculated): [169] Mode: V/AC+ Set Vt (ml): [450 milliliters] Tidal Volume Spont (mL): [419 milliliters-530 milliliters] Set RR: [16 breaths/minutes-26 breaths/minutes] Total Respiratory Rate (Breaths/Min): [24 breaths/minutes-28 breaths/minutes] O2%: [80 %] PIP Actual: [5.1 cm H20-14 cm H20] PEEP/CPAP: [5 cm H2O] PSupport: [5 cm H20] Plateau Pressure: [8 cm H2O] Weaning Trial Comment: pt. just got back from OR Vent weaning trial: Per protocol Lines: Central Line, Dialysis Catheter, Arterial Line and Peripheral Line Drains: Cunningham Catheter, Nasogastric tube and Claude-Cedeño Drain: #1 Scheduled Meds: docusate (COLACE) oral solution 100 mg 100 mg Feeding Tube BID famotidine (PEPCID) injection 20 mg 20 mg Intravenous QHS levETIRAcetam in NaCl (iso-os) (KEPPRA) IVPB (premade) 500 mg 100 mL 500 mg Intravenous BID milk of magnesia (CONC) oral suspension 10 mL 10 mL Feeding Tube QDAY niMODipine (NIMOTOP) capsule 60 mg 60 mg Oral Q4H potassium chloride oral solution 40 mEq 40 mEq Per NG tube ONCE senna/docusate (SENOKOT-S) solution 10 mL 10 mL Feeding Tube BID Continuous Infusions: dexmedetomidine (PRECEDEX) 400 mcg/NS 100 ml IV drip Stopped (03/10/17 0800 ) niCARdipine (cardENE) 20 mg/NS 200 mL infusion (std conc)(premade) 15 mg/ hr (03/11/17 0152) propofol (DIPRIVAN) 10 mg/mL IV infusion 30 mcg/kg/min (03/11/17 0324) PRN and Respiratory Meds:albuterol 0.5% Q4H PRN, fentaNYL citrate PF Q1H PRN, fentaNYL citrate PF Intra-procedure Med, hydrALAZINE Q6H PRN, ipratropium bromide Q4H PRN, labetalol (NORMODYNE; TRANDATE) injection Q15 MIN PRN, ondansetron Q6H PRN, sodium chloride 0.9% (NS) IP Dialysis PRN, sodium chloride 0.9% (NS) IP Dialysis PRN, sodium chloride 0.9% (NS) IP Dialysis PRN Critical Care Vitals: ICP Monitoring: Hemodynamics/Oxycalcs: BP 151/73 (BP Source: Leg, Left) | Pulse 73 | Temp 37 C (98.6 F) | Ht 172.7 cm (68") | Wt 115.1 kg (253 lb 12 oz) | SpO2 100% | BMI 38.58 kg/m2 Weaning readiness screen (RT Only):: Implement protocol Weaning readiness screen Met (RT Only):: Other (see comments) PaO2 (Manual entry): [135 MMHG] FiO2 (Manual entry): [0.8] P/F Ratio (Calculated): [169] Mode: V/AC+ Set Vt (ml): [450 milliliters] Tidal Volume Spont (mL): [330 milliliters-528 milliliters] Set RR: [16 breaths/minutes-26 breaths/minutes] Total Respiratory Rate (Breaths/Min): [24 breaths/minutes-28 breaths/minutes] O2%: [80 %] PIP Actual: [5.1 cm H20-27 cm H20] PEEP/CPAP: [5 cm H2O] PSupport: [5 cm H20] Plateau Pressure: [8 cm H2O] Weaning Trial Comment: pt. just got back from OR Intake/Output Summary: (Last 24 hours) Intake/Output Summary (Last 24 hours) at 03/11/17 0612 Last data filed at 03/11/17 0500 Gross per 24 hour Intake 4811.76 ml Output 681 ml Net 4130.76 ml Physical Exam: Blood pressure 151/73, pulse 73, temperature 37 C (98.6 F), height 172.7 cm (68"), weight 115.1 kg (253 lb 12 oz), SpO2 100 %. General appearance: well-developed, cooperative and mild distress Neurologic: [place] coma score: E: 3 M: 6 V: 1+T FOUR score: E: 4 M: 4 BR: 4 Resp : 1 Pupil exam: Size: 2 Reactivity: brisk - Corneal reflex: R - present L - present - Cough: present - Gag reflex: present EOM: LOS- sedated, right periorbital edema RUE: Strength: 3/5 RLE Strength: 3/5 LUE: Strength: 1/5 LLE: Strength: 1/5 Lungs: clear to auscultation bilaterally, diminished breath sounds R base and L base Pulmonary: Mechanical ventilation full vent support for now Heart: regular rate and rhythm, S1, S2 normal Abdomen: soft, non-tender. Bowel sounds normal. No masses, no organomegaly Extremities: extremities normal, atraumatic, no cyanosis or edema Skin: Skin color, texture, turgor normal. No rashes or lesions Lab Review: Pertinent labs reviewed Medications: docusate (COLACE) oral solution 100 mg 100 mg Feeding Tube BID famotidine (PEPCID) injection 20 mg 20 mg Intravenous QHS levETIRAcetam in NaCl (iso-os) (KEPPRA) IVPB (premade) 500 mg 100 mL 500 mg Intravenous BID milk of magnesia (CONC) oral suspension 10 mL 10 mL Feeding Tube QDAY niMODipine (NIMOTOP) capsule 60 mg 60 mg Oral Q4H potassium chloride oral solution 40 mEq 40 mEq Per NG tube ONCE senna/docusate (SENOKOT-S) solution 10 mL 10 mL Feeding Tube BID Point of Care Testing: (Last 24 hours): Glucose: 100 (03/11/17 0355) POC Glucose (Download): 90 (03/10/17 1210) Radiology and Other Diagnostic Procedures Review: all noted I spent 51 minutes managing the care of this patient. Mr Mayfield is critically ill s/p SAH. Cares included: detailed neurologic and systems exam, medication review, laboratory data review and interpretation, electrolyte management, review of available imaging, DVT/PE prophylaxis review, diet review, activity review, mechanical ventilation and sedation management, and coordination of care with consulted teams. Geoffrey Guerra, WELFARE AIDE Date: 03/11/[phone] * Tonia Lopes MD - 03/10/2017 9:02 PM INTERVENTIONIST Formatting of this note may be different from the original. March 10, 2017 Naren Chaparro Lopes MD Neuro ICU Progress Note Subjective: I have seen and examined Mr. Mayfield in the neurosciences ICU. I have reviewed the hospital progress note authored by Ms. Tanner, and I agree with their findings as stated, unless amended below. Examined briefly pre-operatively this morning and again following return from the OR. No major events overnight. Objective: Vitals: 03/10/17 1840 03/10/17 1845 03/10/17 1900 03/10/17 1930 BP: Pulse: 73 69 68 70 Temp: SpO2: 96% 97% 100% 99% Weight: Height: In/Out: Intake/Output Summary (Last 24 hours) at 03/10/17 2102 Last data filed at 03/10/17 1900 Gross per 24 hour Intake 3381.16 ml Output 490 ml Net 2891.16 ml Last bowel movement: none since admission General: in bed, intubated and sedated Heart: regular rate and rhythm, no murmur Lungs: decreased on the lower left, otherwise clear. Abdomen: Obese, non-distended. Extremities: LUE dialysis catheter. Left femoral venous line site is clean and dry. Neuro: Post-op pupils were initially anisocoric (R 4 mm, L 3 mm). Patient was sedated on propofol. Approximately 30 minutes later his right pupil was 8 mm and non-reactive. Impression: Mr. Mayfield is a 51 yo gentleman with a medical history significant for DM and ESRD who suffered a subarachnoid hemorrhage with subsequent angiography demonstrating a large MCA trifurcation aneurysm now status/post clipping. He returned to the OR this evening after developing a dilated, unreactive right pupil. Hospital Problem List: #1 Aneurysmal subarachnoid hemorrhage #2 Stupor #3 Intubation and mechanical ventilation #4 Left pleural effusion #5 Possible seizure #6 ESRD on dialysis #7 Diabetes mellitus Plan/Recommendations: Neurologic: Underwent coiling today and has returned to the OR for reoperation after developing a blown pupil. He received 23% NaCl and was hyperventilated as a bridge to the OR. Cardiac: Echo ordered but has not been able to be completed as he was in the OR today. Will continue to monitor. Nicardipine as needed for HTN, goal SBP <160 mm Hg. Pulmonary: Keep intubated, okay to wean to SIMV or CPAP post-op but do not extubate. Will need fluid removal with nephrology to optimize his respiratory status. Gastrointestinal: NPO overnight. Start tube feeds tomorrow pending clinical status. Bowel regimen. Renal: Nephrology consulted due to ESRD. He did not complete dialysis yesterday and is fluid up since admission and is clinically volume overloaded, requiring high FIO2. Endocrine: Diabetes mellitus. Sliding scale insulin for now. Will need to implement home insulin regimen. Hematologic: Obtain baseline CBC here. No subQ heparin until cleared by neurosurgery post-operatively. Infectious Disease: No known infection. Monitor and culture with fever. Perioperative antibiotics. I have seen, personally fully evaluated, and discussed patient with the NEURO- ENT ICU team. The patient is critically ill with aneurysmal subarachnoid hemorrhage and stupor requiring intubation and mechanical ventilation s/p clipping and development of a blown pupil.I spent 45minutes (excluding time spent performing or supervising any procedures) providing and personally directing critical care services including neuro monitoring and management, ventilator management, hemodynamic monitoring and management, lab and radiology review, medication review and management, fluid and electrolyte management and coordination of care. * Moi Sol RN - 03/10/2017 8:58 PM INTERVENTIONIST Patient came from OR and arrived in room at 1830, Neurosurgery let me know of his right pupil being slightly larger than his left. This RN noticed as well. Patient's right pupil blew around 1930, Neurosurgery was notified, and so was Neuro ICU team. Stat CTA/P was ordered, and a 23.4% bolus was ordered as well. Patient getting packed up to go to CT and the 23.4% was started with an attending in the room. Nurses and RT were told to keep an eye out for pulm edema. Patient left for CT at around 2009 with attending and Neuro surg residents, along with RT and resource nurse. * Saeid Thompson, RN - 03/10/2017 8:42 PM INTERVENTIONIST Patient transported to CT on the monitor, on the vent with RT. Physician with the patient during transport. Transported without incident. After CT scan the patient was transported to OR with anesthesia assuming care. * Courtney Dael MD - 03/10/2017 5:01 PM INTERVENTIONIST Pulmonary service consulted for L pleural effusion at 8:30 am. Unable to see the patient all day as he has been in the OR since 7 am and has not returned. Pulmonary consult service will see the patient in the AM. Please page [phone] if stat consult required overnight. Courtney Dale MD, M.Sc. PGY4 Pulmonary and Critical Care Fellow Pager: [phone] * Tracie Mitchell MD - 03/10/2017 1:51 PM INTERVENTIONIST Renal service consulted for ESRD. Unable to see patient as he has been in the OR since morning. Will see patient in AM unless acutely needed. Please obtain a BMP after return from OR * Yesenia Yoon, PT - 03/10/2017 9:31 AM INTERVENTIONIST PHYSICAL THERAPY NOTE Physical therapy orders received and appreciated. Patient to OR today for right pterional craniotomy for clipping of MCA aneurysm. PT will follow up 03/11 and provide physical therapy intervention as indicated. Therapist: Yesenia Yoon PT Date: 03/10/2017 * Brandy Posada OT - 03/10/2017 9:10 AM INTERVENTIONIST OCCUPATIONAL THERAPY NOTE OT orders received and appreciated. Pt to OR for procedure this date. OT will follow up tomorrow for evaluation/treatment as indicated. Therapist: MIRNA Best/Omar [id number] Date: 03/10/2017 * Moi Sol RN - 03/10/2017 8:25 AM INTERVENTIONIST Patient started to be prepared for OR at 0730. Patient left room at 0815. Patient taking via bed with SERVICE ORDER CLERK's and RT. No issues during this process. This RN was not able to get a full assessment done before the patient was taken to OR. * Rosie Tanner, WELFARE AIDE - 03/10/2017 6:32 AM INTERVENTIONIST Formatting of this note may be different from the original. Neuro Critical Care Progress Note Naren Mayfield Admission Date: 03/09/2017 LOS: 1 day Full Code ASSESSMENT/PLAN Patient Active Problem List Diagnosis Date Noted IVH (intraventricular hemorrhage) (HCC) 03/09/2017 Intraparenchymal hematoma of brain (HCC) 03/09/2017 Subarachnoid bleed (HCC) 03/09/2017 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HCC) 03/09/2017 Added automatically from request for surgery [id number] Naren Mayfield is a 51 y.o. male with PMH of HLD, HTN, renal failure, dialysis , and diabetes presenting from OSH after being at dialysis 03/09 when he became acutely unresponsive. CT was done at OSH and demonstrated SAH and a possible MCA aneurysm. Patient was then transferred to for further care and management. Hospital and ICU course: 03/09: Admit NEICU. CTA. Angiogram 03/10: To OR for clipping Neuro: IPH rt temporal lobe, SAH rt frontotemporal lobe Escobar and Moore Grade (on admission): 4 Modified Stone Grade (on admission): 3 Evidence of hydrocephalus: No EVD at: N/A Sodium Goal: 135-145 - 03/09 CTA Head: 1. Large saccular aneurysm projecting laterally from the right MCA bifurcation measuring up to 1.5 cm in maximum diameter. No significant change in surrounding right anterior temporal parenchymal hematoma as well as scattered right convexity subarachnoid hemorrhage. Small amount of layering blood products are noted within the occipital horn of the left lateral ventricle. No progressive ventricular distention to suggest hydrocephalus. Moderate nonspecific white matter disease, likely due to chronic microvascular ischemia. 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 - UDS + amphetamines - SBP <140 - Keppra 500BID - Nimotop 60mg q4hrs - Consider 1:1 fluid replacement - TCDs Daily - Neuro-ICU monitoring, neurochecks q 1 hrs, parameters for prevention of secondary brain injury (avoid hypotension, hypoxia, fever, hyperglycemia, significant anemia, diagnose and treatment of seizures, electrolyte abnormalities) - To OR today for clipping Sedation/Pain Management: Yes - Wean Propofol as able, Precedex drip available - Fentanyl PRN - Assess for delirium daily Cardiac: HTN, HLD - SBP goal: < 140 - MAP goal > 65 - Cardene drip to meet SBP goal, PRN hydralazine, labetalol - EKG with SR, LVH - Will add BACK TUFTER medications when verified - ECHO this AM Respiratory: Pleural effusion Date of Intubation: 03/09/17 Reason: Airway protection - AC 450/50%/21/08 - ABG pending - OSH CXR with near complete opacification of left lung, likely pleural fluid. CXR at slightly improved - 03/10 CXR: Large left pleural effusion and left lung atelectasis. Slight progression of right basilar atelectasis. Cardiomegaly. - Pulmonary team consulted - PaO2 goal >100, Spo2 goal >95%, PCO2 goal 35-40 torr, chest physiotherapy, bronchotherapy, PD& V q 6 hrs GI: - Feeding: NPO - Gastric tube in place - neurosurgery bowel regimen, ensure daily BM Heme: - Hgb 9.0 Plt 152 - assess for coagulopathy, maintain platelets above 100k, INR <1.5 ID: - Tmax 37 - WBC 8.6 - aim for normothermia, Temp <38.3 celsius, normothermia protocol if febrile Renal: ESRD on dialysis - Renal consult - Cunningham in place - 40mg Lasix given overnight with little UO - Monitor I/O balance- +795ml over 24 hours - Aim for normovolemia - K+ 3.4, Na 134 - BUN 38, Creat 6.46 - Renal to diurese when pt is stable from OR Endocrine: DM - BG on chem 91 - Blood glucose goal 100-180mg/dl FEN: - IVF: No maintenance fluid, on Cardene drip, Propofol and Precedex- wean as able - Magnesium goal >2.0, i-Jarred goal > 1.0, Potassium goal >4.0 mEq/L Prophylaxis Review: A) GI: P1Rmlmedn B) Lines: Yes; Arterial Line; Indication: Continuous BP monitoring; Location: Radial C) Urinary Catheter: Yes; Retain cunningham due to: Need for accurate Intake and Output D) Antibiotic Usage: No E) VTE: SCDs F) Isolation: NA G)Seizures: Keppra I) Restraints: Patient assessed for need for restraints. Disposition/Family: GLENNA Primary service: NSG Consults: NEICU, Renal SUBJECTIVE Naren Mayfield is a 51 y.o. male. Overnight Events: No new events noted. Patient sedated, to OR today OBJECTIVE Vital Signs: Last Filed Vital Signs: 24 Hour Range BP: 127/89 (03/09 2030) ABP: 132/67 (03/10 0455) ART MAP (Calculated) mm H mm Hg (03/09 1930) Temp: 36.6 C (97.8 F) (03/10 0000) Pulse: 68 (03/10 0455) Respirations: 20 PER MINUTE (03/10 0442) SpO2: 98 % (03/10 0455) O2 Delivery: Endotracheal Tube (Oral) (03/10 0200) Height: 172.7 cm (68") (03/09 152) Weight: 115.1 kg (253 lb 12 oz) (03/09 1525) BP: (107-143)/(67-95) ABP: (110-183)/(55-104) ART MAP (Calculated) mm Hg: [76 mm Hg-96 mm Hg] Temp: [36 C (96.8 F)-36.9 C (98.4 F)] Pulse: [67-89] Respirations: [18 PER MINUTE-23 PER MINUTE] SpO2: [90 %-100 %] O2 Delivery: Endotracheal Tube (Oral) Intensity Pain Scale 0-10 (Pain 1): (not recorded) Vitals: 03/09/17 1525 Weight: 115.1 kg (253 lb 12 oz) Artificial airway: Endotracheal Tube Ventilator/ Respiratory Therapy: Yes: Weaning readiness screen (RT Only):: Implement protocol FiO2 (Manual entry): [0.5] Mode: V/AC+ Set Vt (ml): [400 milliliters-450 milliliters] Tidal Volume Spont (mL): [365 milliliters-488 milliliters] Set RR: [16 breaths/minutes] Total Respiratory Rate (Breaths/Min): [22 breaths/minutes-23 breaths/minutes] O2%: [50 %-60 %] PIP Actual: [4.9 cm H20-5.3 cm H20] PEEP/CPAP: [5 cm H2O] Spontaneous Breathing Trial (RT Only): Implement protocol Spontaneous Breathing Trial MET (RT Only): Other (see comments) Vent weaning trial: Per protocol Lines: Dialysis Catheter, Arterial Line and Peripheral Line Drains: Cunningham Catheter: 41 mL Intake/Output Summary: (Last 24 hours) Intake/Output Summary (Last 24 hours) at 03/10/17 0632 Last data filed at 03/10/17 0200 Gross per 24 hour Intake 776.42 ml Output 169 ml Net 607.42 ml Physical Exam: Blood pressure 127/89, pulse 68, temperature 36.6 C (97.8 F), height 172.7 cm (68"), weight 115.1 kg (253 lb 12 oz), SpO2 98 %. Dylan coma score: E: 3 - Opens eyes to loud noise or command M: 6 - Follows simple motor commands V: 1T - Makes no noise Neuro: Mental Status: Sedated, when sedation paused patient is agitated flailing all extremities. Able to follow commands. Cranial Nerves: - Pupil exam: Size: 3 Reactivity: Brisk - Corneal reflex: R - present L - present - Grimace/facial movement: present - Cough: present - Gag reflex: present Motor: 4/5 moving all extremities LOS formal strength testing Sensory: LOS sensory loss, brisk withdrawal throughout Lungs: diminished breath sounds R anterior Pulmonary: Respiratory status: Stable Heart: regular rate and rhythm, S1, S2 normal, no murmur, click, rub or gallop Abdomen: soft, non-tender. Bowel sounds normal. No masses, no organomegaly, abnormal findings: obese Extremities: extremities normal, atraumatic, no cyanosis or edema Skin: Skin color, texture, turgor normal. No rashes or lesions Point of Care Testing: (Last 24 hours) Glucose: 91 (03/10/17 0325) Lab Review: Pertinent labs reviewed Radiology and Other Diagnostic Procedures Review: Pertinent radiologic and diagnostic procedures reviewed. Rosie Tanner APRN Date: 03/10/[phone] I spent 65 minutes managing the care of this patient. Mr. Mayfield is in critical condition with SAH and MCA aneurysm, HTN, ESRD on dialysis, pleural effusion. Cares included: detailed neurologic and systems exam, medication review, laboratory data review and interpretation, electrolyte management, review of available imaging, DVT/PE prophylaxis review, diet review, activity review, mechanical ventilation and sedation management, and coordination of care with consulted teams * Tonia Lopes MD - 03/09/2017 6:22 PM INTERVENTIONIST Formatting of this note may be different from the original. @DATE@ Naren Mayfield Tonia Lopes MD Neuro ICU Progress Note Subjective: I have seen and examined Mr. Mayfield in the neurosciences ICU. The patient is a 51 yo male with DM and ESRD on dialysis. He was just beginning his dialysis run today and while there developed sudden unresponsiveness and possible seizure activity. He had desaturation and was intubated in the field. His blood pressure was 240/[address] demonstrated a large lesion, presumed aneurysm in the sylvian fissure on the right at the location of the MCA bifurcation. There was associated subarachnoid hemorrhage. CXR demonstrated poor aeration of the left lung and a large left pleural effusion. He was transferred here for further management. He did not complete his dialysis before the event. Objective: Vitals: 03/09/17 1755 03/09/17 1800 03/09/17 1805 03/09/17 1810 BP: 114/68 Pulse: 69 70 73 72 Temp: SpO2: (!) 90% (!) 90% (!) 90% (!) 90% Weight: Height: In/Out: No intake or output data in the 24 hours ending 03/09/17 1822 Last bowel movement: None since admission General: In bed, sedate on propofol Heart: Regular rate and rhythm Lungs: Clear anteriorly, normal effort. Abdomen: Obese, soft, non-distended. Neuro: Intubated and sedate. Pupils are equal and reactive. He will localize with his upper extremities and moves his lower extremities. Impression: Mr. Mayfield is a 51 yo gentleman with a medical history significant for DM and ESRD who suffered a subarachnoid hemorrhage with subsequent angiography demonstrating a large MCA trifurcation aneurysm. Hospital Problem List: #1 Aneurysmal subarachnoid hemorrhage #2 Stupor #3 Intubation and mechanical ventilation #4 Left pleural effusion #5 Possible seizure Plan/Recommendations: Neurologic: Angiogram has just been completed. Planning for clipping tomorrow. Maintain blood pressure <140 mm Hg. Keep sedate with low-dose propofol. Cardiac: Stable on arrival. Will continue to monitor. Nicardipine as needed for HTN. Pulmonary: Keep intubated, okay to wean to SIMV or CPAP, but do not extubate. Gastrointestinal: NPO overnight. Consider diet via NG or oral pending intubation status post-operatively. Bowel regimen. Renal: Nephrology consultation due to ESRD. He did not complete dialysis today. Electrolytes were acceptable on outside labs; will repeat here. Uncertain if he produces urine or not. Will not provide additional IVF beyond medication infusions. Endocrine: Diabetes mellitus. Sliding scale insulin until home regimen is known. Hematologic: Obtain baseline CBC here. No subQ heparin until cleared by neurosurgery post-operatively. Infectious Disease: No known infection. Monitor and culture with fever. I have seen, personally fully evaluated, and discussed patient with the NEURO- ENT ICU team. The patient is critically ill with aneurysmal subarachnoid hemorrhage and stupor requiring intubation and mechanical ventilation. I spent 45 minutes (excluding time spent performing or supervising any procedures) providing and personally directing critical care services including neuro monitoring and management, ventilator management, hemodynamic monitoring and management, lab and radiology review, medication review and management, fluid and electrolyte management and coordination of care. * Dayan Rollins RN - 03/09/2017 4:43 PM INTERVENTIONIST Sedation physician present in room. Recent vitals and patient condition reviewed between sedating physician and nurse. Reassessment completed. Determination made to proceed with planned sedation. * Leslye Park RN ([place]) - 03/09/2017 3:30 PM INTERVENTIONIST Pt arrived to room [id number] via EMS intubated and sedated. VSS, no acute issues. All orders released and implemented as necessary. ART line placed at bedside by Neuro ICU team. 1605- pt transported to CT via bed with this RN, NA, and RT with vent. Tolerated scan and move well. Dr Rogel met in CT, orders to go straight from CT to IR for Angio. in this encounter H&P Notes * Braden De Leon MD - 03/09/2017 3:30 PM INTERVENTIONIST Formatting of this note may be different from the original. Neurosurgery History and Physical Examination Naren Mayfield Admission Date: 03/09/2017 Assessment/Plan: Naren Mayfield is a 51 y.o. male with PMH of HLD, HTN, renal failure, dialysis , and diabetes presenting from OSH with concern for right ruptured MCA aneurysm , GCS 7T on arrival. HH4mF3, WFNS grade 4 - admit to NEI - consult NEICU team - consult nephrology - CTA head to evaluate aneurysm - angiogram after CTA - NPO - SBP <140 - keppra 500 BID - nimotop 60 q4 - discussed with staff Please page [phone] with any questions Devon Castro MD [id number] __ Chief Complaint: MCA aneurysm History of Present Illness: Naren Mayfield is a 51 y.o. male with PMH of HLD, HTN, renal failure, dialysis , and diabetes presenting from OSH after being at dialysis earlier today when he became acutely unresponsive. CT was done at OSH and demonstrated SAH and a possible MCA aneurysm. Patient was then transferred to for further care and management. Past Medical History: Past Medical History: Diagnosis Date DM (diabetes mellitus) (HCC) HLD (hyperlipidemia) HTN (hypertension) Renal failure Past Surgical History: No past surgical history on file. Social History: Social History Substance Use Topics Smoking status: None Smokeless tobacco: None Alcohol use None Family History: Family History Problem Relation Age of Onset Blood Clots Mother Hypertension Mother Diabetes Mother Allergies: Review of patient's allergies indicates no known allergies. Medications: Prescriptions Prior to Admission Medication Sig albuterol (VENTOLIN HFA) 90 mcg/actuation inhaler Inhale 2 puffs by mouth into the lungs every 6 hours as needed for Wheezing or Shortness of Breath. Shake well before use. amLODIPine (NORVASC) 10 mg tablet Take 10 mg by mouth daily. atorvastatin (LIPITOR) 10 mg tablet Take 10 mg by mouth at bedtime daily. baclofen (LIORESAL) 10 mg tablet Take 10 mg by mouth daily. calcium acetate (PHOSLO) 667 mg capsule Take 1,334 mg by mouth three times daily with meals. Take two tabs with meals, take one with snacks doxazosin (CARDURA) 8 mg tablet Take 8 mg by mouth at bedtime daily. ferric citrate 210 mg iron tab Take 210 mg by mouth three times daily. fluticasone/salmeterol (ADVAIR DISKUS) 250/50 mcg inhalation disk Inhale 1 puff by mouth into the lungs daily. furosemide (LASIX) 40 mg tablet Take 40 mg by mouth twice daily. HYDROcodone/acetaminophen (NORCO) 7.5/325 mg tablet Take 1 tablet by mouth every 6 hours as needed for Pain insulin aspart (NOVOLOG) 100 unit/mL injection Inject 12 Units under the skin three times daily with meals. insulin glargine (LANTUS) 100 unit/mL injection Inject 60 Units under the skin twice daily. 1 vial contains 10mL losartan(+) (COZAAR) 100 mg tablet Take 100 mg by mouth daily. losartan-hydrochlorothiazide (HYZAAR) 100-25 mg tablet Take 1 tablet by mouth every morning. metOLazone (ZAROXOLYN) 5 mg tablet Take 5 mg by mouth daily. METOPROLOL SUCCINATE PO Take 200 mg by mouth at bedtime daily. metoprolol tartrate (LOPRESSOR) 100 mg tablet Take 200 mg by mouth twice daily. minoxidil (LONITEN) 10 mg tablet Take 10 mg by mouth twice daily. Review of Systems: Full 10 point review of systems negative except for HPI Physical Exam: Vital Signs: Last Filed In 24 Hours Vital Signs: 24 Hour Range BP: 114/68 (03/09 1800) Temp: 36.9 C (98.4 F) (03/09 1845) Pulse: 71 (03/09 1930) Respirations: 22 PER MINUTE (03/09 1915) SpO2: 98 % (03/09 1930) O2 Delivery: Endotracheal Tube (Oral) (03/09 1930) SpO2 Pulse: 70 (03/09 1930) Height: 172.7 cm (68") (03/09 1525) BP: (107-143)/(67-95) ABP: (110-183)/(55-104) ART MAP (Calculated) mm Hg: [76 mm Hg-96 mm Hg] Temp: [36.9 C (98.4 F)] Pulse: [68-84] Respirations: [18 PER MINUTE-22 PER MINUTE] SpO2: [90 %-98 %] O2 Delivery: Endotracheal Tube (Oral) General appearance: intubated, thrashing Lungs: Clear to auscultation bilaterally Heart: Regular rate and rhythm Gastrointestinal: Soft, non-tender. Bowel sounds normal Musculoskeletal: No edema, redness or tenderness in the calves or thighs Skin: Integument intact without major lesion. Psychiatric: intubated Neurologic Exam: Mental Status: awake, intubated Pupils: Pupils equal round and reactive to light Cranial Nerves: face symmetric Motor: Moves all spontaneously, does not follow RUE: localizes Normal muscle bulk and tone Sensation: unable to assess given patient condition Deep Tendon Reflexes: Plantar responses toes downgoing bilaterally No clonus bilaterally No shaffer's sign bilaterally Gait: deferred Cerebellar: unable to assess given patient condition Rectal: deferred Lab Tests: Hematology: Lab Results Component Value Date HGB 8.6 03/09/2017 HCT 26.3 03/09/2017 PLTCT 164 03/09/2017 WBC 7.4 03/09/2017 NEUT 86 03/09/2017 ANC 6.30 03/09/2017 ALC 0.40 03/09/2017 SUZI 7 03/09/2017 AMC 0.50 03/09/2017 ABC 0.00 03/09/2017 MCV 92.1 03/09/2017 MCHC 32.8 03/09/2017 MPV 8.5 03/09/2017 RDW 16.1 03/09/2017 General Chemistry: Lab Results Component Value Date NA 132 03/09/2017 K 3.5 03/09/2017 CL 95 03/09/2017 CO2 29 03/09/2017 BUN 36 03/09/2017 CR 6.24 03/09/2017 GLU 83 03/09/2017 OBSCA 1.10 03/09/2017 CA 8.4 03/09/2017 MG 2.1 03/09/2017 PO4 6.0 03/09/2017 General Chemistry: Lab Results Component Value Date GAP 8 03/09/2017 ALBUMIN 3.7 03/09/2017 TOTBILI 0.7 03/09/2017 TOTPROT 6.5 03/09/2017 AST 21 03/09/2017 ALT 14 03/09/2017 ALKPHOS 61 03/09/2017 Radiology and other Diagnostics Review: Reviewed in this encounter Procedure Notes * Dima Glasgow RN - 03/26/2017 9:00 AM INTERVENTIONIST Associated Order(s): HEMODIALYSIS INPATIENT; HEMODIALYSIS DATE 0848: Consent confirmed, assessment complete and charted. Patient's LFA AV Fistula was accessed with two #15 fistula needles upon the first attempt. Treatment was started at this time. 1247: Blood returned, needles de-cannulated, bleeding stopped in <10min. Treatment completed at this time. * Dharmesh Navarro RN - 03/23/2017 3:22 PM INTERVENTIONIST Associated Order(s): HEMODIALYSIS INPATIENT; HEMODIALYSIS DATE Arrived at patient room C 5112 and treatment started at 1040 am. Vital signs stable. Patient tolerating treatment well. Treatment complete at 1444 pm. Vital signs stable. Comins removed from L AV fistula and site healed. Report given to unit nurse. Left patient in room C 5112 in stable condition. * Hetal Roberts RN - 03/21/2017 8:44 AM INTERVENTIONIST Associated Order(s): HEMODIALYSIS INPATIENT; HEMODIALYSIS DATE 06 Arrived in Pt's [id number] with portable R/O and diaysis machine/supply cart. ICU staff cleaning Pt from BM. [id number] R/O rinsing/cool down cycle in progress. Pt repositioned by ICU staff X's 3. 0815 Arterial line patent. Verified correct Pt,meds,procedure and equipment.Signed consent for HD TX in chart. Pre-TX VS taken. 0830 HD TX started after all machine checks completed and passed. Verified Pt's LT FA AVF is patent. #15g fistula needles to cannulate Pt's access successfully, taped securely then connected to HD bloodlines. HD TX set per 's orders/HD protocol. Dr. Mitchell notified Pt started TX. 0930 Neuro team @ bedside and requested FR @ 2.0L. HD machine adjusted. 0945 Dr. Mitchell @ bedside. 1230 HD TX completed. Blood returned through Pt's LT FA AVF and flushes easily. Net UF is 2.01L. 1245 Post TX VS taken. Report given to TENZIN Cueto. * Geoffrey Farias RN - 03/19/2017 11:57 AM INTERVENTIONIST Associated Order(s): HEMODIALYSIS INPATIENT; HEMODIALYSIS DATE Hemodialysis treatment started 11:28, orders written for a 4 hour treatment with an ultra filtration goal of 2-3 liters, pre dialysis weight per bed scale 103.3 kg. Patient with a left forearm fistula needles placed without difficulties. Dialysis treatment completed without complications, blood returned needles pulled, hemostasis within 10 minutes, actual patient fluid removal 3,000 ml. * Mihai Aly RN - 03/18/2017 2:45 PM INTERVENTIONIST Associated Order(s): HEMODIALYSIS INPATIENT; HEMODIALYSIS DATE Formatting of this note may be different from the original. Status: Active Ordering user: Nir Timmons MD 03/17/171224 Ordering provider: Nir Timmons MD Authorized by: Nir Timmons MD Frequency: Once 03/17/17 1800 - 1 Occurrences Released by: Patti Garcia RN 03/17/17 1477 Questions: Date Hemodialysis to be performed: 03/18/2017 Type of Hemodialysis: Conventional Hemodialysis Dialyzer: [employer] Optiflux F160 Type of Access: Left AV Fistula Maximum Blood flow Rate (BFR)(mL/min): 400 Comment - May reduce Blood Flow Rate if access or return pressure exceeds +/- 250 mmHg or symptomatic for hypovolemia Maximum Dialysate flow rate (mL/min): 800 Duration of treatment __ hours: 4 Comment - May adjust duration to match outpatient orders Initial Net Ultrafiltration Goal: Liters (Specify in comments) Comment - May reduce goal or place in minimum ultrafiltration rate if MAP <60 mmHg or symptomatic for hypovolemia Comments: 4 Potassium (K+) Bath: 3 mEq/L Calcium (Ca++) Bath 2.5 mEq/L Bicarbonate: 35 mEq/L Sodium (Na+) Modeling: Standard 140 mEq UF Modeling: Comment - May select UF Profile PRN to optimize fluid removal 1411 Set up at bedside. Patient in soft restraints for safety. Verified consent. Utilized 15 gauge and cannulated left forearm fistula. Bruit and thrill present. Aspirated and flushed well. Secured line with tape and scissor clamp. Soft restraint in place to prevent dislodgement of needles. Dialysis began. UF set for 2.5 liters or if Map drops below 80. 1450 Dr[address]aged. [phone] Dr Mitchell here at bedside. 1814 patient had episodes with agitation and restless during treatment. Completed dialysis. Took off 4 liters. Map remains over 80. Karen DAVE received report. * Vernell Corbin MD - 03/18/2017 1:01 PM INTERVENTIONIST VIDEO EEG REPORT Name: Naren Mayfield Date of : 1965 START TIME 0700 on 03/15/2017 END TIME 1407 on 03/15/2017 PATIENT HISTORY: This is a 51 y.o. male with a history of HTN, HLD, DM, ESRD on dialysis presenting with altered mental status found to have Right temporal ICH/SAH due to ruptured Right MCA aneurysm s/p craniotomy and clipping c/b epidural hematoma s/p craniectomy and evacuation. TECHNICAL: This EEG is intended to be awake, drowsy and asleep. EEG is intended to be prolonged with continuous video recording. The EEG is performed on a 32 channel digital recording device. The 10-20 international system of electrode placement is used. REPORT: BACKGROUND: The posterior dominant rhythm is not seen. The background consists of continuous slow activity in the delta frequency range, diffuse with maximum slowing in the right hemisphere, with no EEG reactivity. SLEEP: Normal sleep architecture is not seen. ABNORMALITIES: 1. Periodic Discharges, Lateralized, Right Hemisphere maximum Right Frontal region ( F4>FP2>F8) Seen continuously throughout the recording, composed of sharp waves/spikes superimposed on high amplitude polymorphic delta activity, 1-3 Hz in frequency, for brief periods of time can be 4-5 Hz in frequency with superimposed faster activity, but no definite evolution. 2. Continuous Slow, Generalized and Lateralized, Right Hemisphere 3. Asymmetry, increased background amplitude, Right compared to left hemisphere. IMPRESSION This abnormal EEG is indicative of an acute/subacute right cerebral hemisphere lesion/dysfunction maximum in the right frontal region with epileptogenic potential. There is also evidence of a severe diffuse encephalopathy. This EEG is also consistent with the presence of skull defect/craniotomy on the right side. Vernell Corbin MD Seafood Process Worker of Neurology [facility] * Bakari Wu - 03/16/2017 9:43 PM INTERVENTIONIST Procedure(s): THORACENTESIS ED Procedure Note - Attempted Thoracentesis: Confirmed correct: Patient, Procedure and Side Indication: large pleural effusion and respiratory distress Procedure consent form: Risks discussed, Alternatives discussed, Questions answered, Form signed and Patient unable to sign form due to medical condition Approach: Left, Posterior and Rib level 5th Preparation: Chloraprep Anesthesia: 1% lidocaine 4 ml SQ in area of aspiration Technique: Needle - catheter size: 14 Aspirate: None Ultrasound of the left chest was performed. There was elevation and lack of excursion of the left hemidiaphragm. A large amount of free fluid was easily seen deep in the chest. Within the thorax fibrinous material was seen on imaging. There was a large pleural based thickening. After topicalization of the skin the 30 ga needle was used to probe deeper structures but was unable to make contact with the rib due to the patients weight. With the 21ga needle bony contact was made and the needle was walked off the bone. There was some return of serosanguinous fluid. The 14ga thoracentesis needle was inserted in the same direction but unable to aspirate fluid at 5cm depth. The procedure was abandoned. Will obtain Chest CT to better delineate the pleural based process as a possible source of the bloody pleural effusion. Post procedure breath sounds: Unchanged Post procedure patient condition: Unchanged Patient tolerated procedure: Well Resident Supervision Note concerning Naren Mayfield: I personally performed the procedure myself. Bakari Wu * Mihai Aly RN - 03/16/2017 2:38 PM INTERVENTIONIST Associated Order(s): HEMODIALYSIS INPATIENT; HEMODIALYSIS DATE Formatting of this note may be different from the original. 41 Status: Active Ordering user: Tracie Mitchell MD 03/15/171641 Ordering provider: Tracie Mitchell MD Authorized by: Tracie Mitchell MD Frequency: Once 03/16/17 0530 - 1 Occurrences Released by: Corazon Caba RN 03/16/17519 Questions: Date Hemodialysis to be performed: 03/16/2017 Type of Hemodialysis: Conventional Hemodialysis Dialyzer: [employer] Optiflux F160 Type of Access: Left AV Fistula Maximum Blood flow Rate (BFR)(mL/min): 400 Comment - May reduce Blood Flow Rate if access or return pressure exceeds +/- 250 mmHg or symptomatic for hypovolemia Maximum Dialysate flow rate (mL/min): 800 Duration of treatment __ hours: 3.5 Comment - May adjust duration to match outpatient orders Initial Net Ultrafiltration Goal: Liters (Specify in comments) Comment - May reduce goal or place in minimum ultrafiltration rate if MAP <60 mmHg or symptomatic for hypovolemia Comments: 2-3L Potassium (K+) Bath: 2 mEq/L Calcium (Ca++) Bath 2.5 mEq/L Bicarbonate: 35 mEq/L Sodium (Na+) Modeling: Standard 140 mEq UF Modeling: Comment - May select UF Profile PRN to optimize fluid removal 1245 Received report at bedside from Miranda Alcantara RN. 1400 CBC drawn prior to start of dialysis. 1415 Orders as above placed per renal. Accessed his left forearm fistula with 15 guage needles. Aspirated and flushed well. Lines are visible on him and to the machine. Goal is set at 2 liters. Potassium bath was 2K+. 1430 Dr. Mitchell paged. [phone] Family in room visiting. 1515 Patient has been consistent with putting legs on the side of the bed. 1530 B/P in the 200s systolic. immigration paralegal giving meds. UF increased to 3.[address] Cardona. 1615 BP remains above 200 systolic. ICU nurse addressing B/P. 1745 Dialysis complete. UF total was 4 liters. Phi DAVE given report. * Vernell Corbin MD - 03/15/2017 9:22 AM INTERVENTIONIST VIDEO EEG REPORT Name: Naren Mayfield Date of : 1965 START TIME 0700 on 03/14/2017 END TIME 0700 on 03/15/2017 PATIENT HISTORY: This is a 51 y.o. male with a history of HTN, HLD, DM, ESRD on dialysis presenting with altered mental status found to have Right temporal ICH/SAH due to ruptured Right MCA aneurysm s/p craniotomy and clipping c/b epidural hematoma s/p craniectomy and evacuation. TECHNICAL: This EEG is intended to be awake, drowsy and asleep. EEG is intended to be prolonged with continuous video recording. The EEG is performed on a 32 channel digital recording device. The 10-20 international system of electrode placement is used. REPORT: BACKGROUND: The posterior dominant rhythm is not seen. The background consists of continuous slow activity in the delta frequency range, diffuse with maximum slowing in the right hemisphere, with no EEG reactivity. SLEEP: Normal sleep architecture is not seen. ABNORMALITIES: 1. Periodic Discharges, Lateralized, Right Hemisphere maximum Right Frontal region ( F4>FP2>F8) Seen continuously throughout the recording, composed of sharp waves/spikes superimposed on high amplitude polymorphic delta activity, 1-3 Hz in frequency, for brief periods of time can be 4-5 Hz in frequency with superimposed faster activity, but no definite evolution. 2. Continuous Slow, Generalized and Lateralized, Right Hemisphere 3. Asymmetry, increased background amplitude, Right compared to left hemisphere. IMPRESSION This abnormal EEG is indicative of an acute/subacute right cerebral hemisphere lesion/dysfunction maximum in the right frontal region with epileptogenic potential. There is also evidence of a severe diffuse encephalopathy. This EEG is also consistent with the presence of skull defect/craniotomy on the right side. Vernell Corbin MD Seafood Process Worker of Neurology [facility] * Marcos Solorzano MD - 03/14/2017 4:26 PM INTERVENTIONIST Procedure(s): THORACENTESIS ED Pre-Procedure Diagnose(s): Pleural effusion Post-Procedure Diagnose(s): Pleural effusion Formatting of this note may be different from the original. Thoracentesis: Under sterile conditions the skin above the posterior Left 5 rib was prepped with chlorhexadine and covered with a sterile drape. Local anesthesia was applied to the skin and subcutaneous tissues. A(n) 18 needle was then inserted superior to the rib and advanced until fluid was returned. A catheter was then passed through the needle, and the needle was withdrawn. 1700 mL dark serosanguinous fluid was removed. Catheter was then removed, and a pressure dressing was applied to the site. Dr. Solorzano was present throughout the entire procedure Caroline Davila, Pulmonary and Critical Care Fellow ATTESTATION I was present for the procedure performed by Dr. Davila, Pulmonary Critical Care Fellow. DOS 03-14-17 Staff name: Marcos Solorzano MD Date: 03/15/2017 * Vernell Corbin MD - 03/14/2017 9:22 AM INTERVENTIONIST VIDEO EEG REPORT Name: Naren Mayfield Date of : 1965 START TIME 1601 on 03/13/2017 END TIME 0700 on 03/14/2017 PATIENT HISTORY: This is a 51 y.o. male with a history of HTN, HLD, DM, ESRD on dialysis presenting with altered mental status found to have Right temporal ICH/SAH due to ruptured Right MCA aneurysm s/p craniotomy and clipping c/b epidural hematoma s/p craniectomy and evacuation. TECHNICAL: This EEG is intended to be awake, drowsy and asleep. EEG is intended to be prolonged with continuous video recording. The EEG is performed on a 32 channel digital recording device. The 10-20 international system of electrode placement is used. REPORT: BACKGROUND: The posterior dominant rhythm is not seen. The background consists of continuous slow activity in the delta frequency range, diffuse with maximum slowing in the right hemisphere, with no EEG reactivity. SLEEP: Normal sleep architecture is not seen. ABNORMALITIES: 1. Periodic Discharges, Lateralized, Right Hemisphere maximum Right Frontal region ( F4>FP2>F8) Seen continuously throughout the recording, composed of sharp waves/spikes superimposed on high amplitude polymorphic delta activity, 1-3 Hz in frequency, at times can be 4-5 Hz in frequency with superimposed faster activity but no definite evolution. 2. Continuous Slow, Generalized and Lateralized, Right Hemisphere 3. Asymmetry, increased background amplitude, Right compared to left hemisphere. IMPRESSION This abnormal EEG is indicative of an acute/subacute right cerebral hemisphere lesion/dysfunction maximum in the right frontal region with epileptogenic potential. There is also evidence of a severe diffuse encephalopathy. This EEG is also consistent with the presence of skull defect/craniotomy on the right side. Vernell Corbin MD [employer] Worker of Neurology [facility] * Germaine Covarrubias RN - 03/14/2017 7:27 AM INTERVENTIONIST Associated Order(s): HEMODIALYSIS INPATIENT; HEMODIALYSIS DATE tubular stock glass bulb machine former in patient's room. Patient sedated and on ventilator, however, opens eyes to commands and moves bilateral upper extremities and right lower extremity to command. Patient moves away from painful stimuli. HD treatment initiated per MD orders using patient's left AVF. AVF (+/+) cannulated without difficulties. Will continue to monitor. With one hour remaining on treatment, machine with technical alarm that was unable to be cleared. Blood returned manually to patient. Machine exchanged. * Vernell Corbin MD - 03/13/2017 5:44 PM INTERVENTIONIST EEG REPORT Date of service: 03/13/2017 Name: Naren Mayfield Date of : 1965 PATIENT HISTORY: This is a 51 y.o. male with a history of HTN, HLD, DM, ESRD on dialysis presenting with altered mental status found to have Right temporal ICH/SAH due to ruptured Right MCA aneurysm s/p craniotomy and clipping c/b epidural hematoma s/p craniectomy and evacuation. TECHNICAL: This is EEG was intended to be awake, drowsy and asleep. The EEG was performed on a 32 channel digital recording device. The 10-20 international system of electrode placement was used. Hyperventilation was not performed. Photic stimulation was not performed. REPORT: BACKGROUND: The posterior dominant rhythm is not seen. The background consists of continuous slow activity in the delta frequency range, diffuse with maximum slowing in the right hemisphere, with no EEG reactivity. SLEEP: Normal sleep architecture is not seen. ACTIVATIONS: Stepwise photic stimulation at a frequency of 3-30 Hz results in no driving response. ABNORMALITIES: 1. Periodic Discharges, Lateralized, Right Hemisphere maximum Right Frontal region ( F4>FP2>F8) Seen continuously throughout the recording, composed of sharp waves/spikes superimposed on high amplitude polymorphic delta activity, 1-3 Hz in frequency, with no clear evolution. 2. Continuous Slow, Generalized and Lateralized, Right Hemisphere 3. Asymmetry, increased background amplitude, Right compared to left hemisphere. IMPRESSION This abnormal EEG is indicative of an acute/subacute right cerebral hemisphere lesion/dysfunction maximum in the right frontal region with epileptogenic potential. There is also evidence of a severe diffuse encephalopathy. This EEG is also consistent with the presence of skull defect/craniotomy on the right side. Vernell Corbin MD [employer]afood [employer] Worker of Neurology [facility] * Vandana Delaney, TENZIN - 03/12/2017 12:33 PM INTERVENTIONIST Associated Order(s): HEMODIALYSIS INPATIENT; HEMODIALYSIS DATE 1233- HD tx initiated using pt's L AV lower arm fistula without difficulty. Pt anticipating 3.5 hr tx, on a 3k bath, with 2L net expected fluid removal as tolerated. Will monitor pt closely during tx. 1603- HD tx complete, blood returned, and post VSS. Pt's L AV lower arm fistula de-accessed, pressure held until hemostasis achieved, and new bandages applied to each site. Pt in stable condition and tolerated tx well. Total of 2.5L net expected fluid removed from pt during tx. Primary, RN updated on pt. Pt remains in room [id number] at this time. * Bailee Gann RN - 03/11/2017 10:09 AM INTERVENTIONIST Associated Order(s): HEMODIALYSIS INPATIENT 0900 Arrived in [id number] to set up for dialysis. Assessment completed and documented. Care of pt, respirator and all lines remains with his primary SUPERVISOR LAMP SHADESTENZIN Jean. Left AVF assessed and found to still have dialysis needles from last dialysis treatment (03/09/17 outside facility) in place. Area around needles noted to have old bloody drainage under transparent dressing. Dressing and needles removed, hemostasis achieved and skin around AVF cleaned. 1000 Left AVF accessed with new 15 gauge needles without difficulty. Dialysis treatment started with a planned duration of 3.5 hours and a UF goal of 3 liters of fluid. 1045 Dr Mitchell at bedside. Requested length of dialysis to be increased to 4 hours and UF goal be increased to 4 liters. 1400 Dialysis treatment completed. Pt tolerated well. Blood returned and needles removed from left AVF, hemostasis achieved and area covered with dry gauze and paper tape. Report given to primary SUPERVISOR LAMP SHADESTENZIN Jean. * Dharmesh Navarro RN - 03/10/2017 9:10 PM INTERVENTIONIST Associated Order(s): HEMODIALYSIS DATE Arrived on unit and contacted unit nurse for patient at 2014 pm. Patient had cranial bleed and sent to CT and then to OR for second time. Home Care Liaison contacted and said patient may be done the next morning. Unit nurse also said patient may still have needles from outpatient dialysis unit in fistula. Patient already in OR. * Maxim Chauhan MD - 03/10/2017 9:45 AM INTERVENTIONIST Pre-Procedure Diagnose(s): Aneurysm rupture of middle cerebral artery (HCC); Aneurysm of middle cerebral artery Neurology intra-Operating Monitoring report (IOM) Diagnosis: Ruptured aneurysm of right middle cerebral artery Procedure: Right pterional craniotomy for repair of aneurysm.Clipping of aneurysm. Surgeon: Edgar Bee MD Baseline acquisition time: 9:12 am Monitoring start time: 9:12 am Incision time: 9:19 am Closing started at: 4:26 pm Monitoring stop time: 5:08 pm TcMEP: Trancranial Motor Evoked Potential: Post induction baseline transcranial motor evoked potentials from bilateral abductor digiti minimi in hands, and bilateral tibialis anterior, and abductor hallucis muscles in lower extremities were reproducible with normal latencies and morphology. The compound muscle action potential data showed no evidence to suggest change in the lateral cortico-spinal pathways as a consequence of this surgery. SSEP: Somatosensory Evoked Potentials: Post induction baseline somatosensory evoked potentials from bilateral ulnar and posterior tibial nerves were obtained. They were reproducible with normal latencies and morphology in upper extremities. The somatosensory evoked potential from bilateral posterior tibial nerves were of very low amplitude and could not be reliably monitored at onset. After troubleshooting they become reproducible with normal morphology and latencies in both legs. The data from neurophysiological monitoring of somatosensory evoked potentials showed no evidence to suggest change in the posterior column-medial lemniscus cortical pathways as a consequence of this surgery. Repetitive Nerve Stimulation: TO4 (train of 4) was frequently run throughout the procedure to monitor for neuromuscular blockade. A nerve was repetitively stimulation and the compound motor action potentials (CMAPs) recorded from a distal motor group. TO4 was assessed during critical periods of surgery and demonstrated that neuromuscular blockade was not present while monitoring EMGs and TcMEP. EEG: Electroencephalography: Post induction EEG was monitorable with interhemispheric symmetry. EEG was continuously monitored throughout the procedure. No significant changes in the EEG were observed. I remotely monitored and supervised this case in real-time, online via a secure HIPAA-compliant network. Maxim Chauhan MD Visual Supervisor [facility] Department of Neurology in this encounter Consult Notes * Aleksandr Young MD - 03/19/2017 10:34 AM INTERVENTIONIST Associated Order(s): CONSULT REHABILITATION MEDICINE PHYSICIAN Formatting of this note may be different from the original. Physical Medicine & Rehabilitation Consult Note Date of Service: 03/19/2017 Naren Mayfield is a 51 y.o. male. : 1965 Primary Insurance: MEDICARE Secondary Insurance: [facility] MEDICAID [place] Tertiary Insurance: Financial Class: Medicare Date of Admission: 03/09/2017 Referring Physician: Edgar Bee MD Reason for Consult: evaluate for Post-Acute Rehab/Placement Precautions: Fall, aspiration, helmet s/p craniectomy Active Problems Ruptured R MCA aneurysm S/p hemicraniectomy with aneurysm repair S/p evacuation of SDH Acute respiratory failure requiring intubation, resolved Hypertension LLE weakness Cognitive impairment Impaired mobility and ADLs Gait abnormality Assessment & Plan Naren Mayfield is a 51 y.o. male admitted to [facility] on 03/09/2017 with the following issues: IPH/SAH secondary to ruptured R MCA aneurysm Impairments: cognitive impairments, dysphagia, poor activity tolerance and weakness Activity Limitations: eating, grooming, bathing, dressing - upper, dressing - lower, toileting, bowel control, transfers, ambulation, problem solving and memory Participation Restrictions: unable to return home safely Post-acute care rehabilitation needs: Pt currently demonstrates the therapy goals and medical complexity to recommend admission to acute inpatient rehabilitation once medically stable. Given that the patient will remain in the Neuro-ICU through the end of the week (at a minimum) for continued monitoring, our service will continue to follow his progress with therapies. Goals & Barriers Family / Patient Goals: return home with family assistance Mobility Goals: Overall goal is Minimum assistance and Physical Therapy will evaluate and treat ambulation/wheelchair use and bed transfers Activities of Daily Living (ADLs) Goals: Overall goal is Supervision and Occupational therapy will evaluate and treat basic Activities of Daily Living Cognition / Communication Goals: Speech therapy will evaluate and treat cognition and communication deficits and assess for safe swallow Barriers: High burden of care, Medical complexity, Medication education and Poor strength/endurance Facilitators: patient motivation, improving strength / endurance and improving medical condition Rehabilitation Prognosis: Good Tolerance for three hours of therapy a day: Good Prior to the inpatient rehabilitation admission complete the following: *Dysphagia The patient is at risk for or has significant dysphagia. The primary team is currently addressing adequate nutritional access, and the patient will need to make sure the patient is tolerating appropriate tubefeeding prior to admission to acute inpatient rehabilitation. *IV Pain The patient will need to be transitioned off all IV pain medications and have good pain control with oral analgesics prior to considering acute inpatient rehabilitation. Other recommendations: Cognitive impairment Pt would benefit from formal GAMEWELL OPERATOR cognitive evaluation to determine specific domains of cognitive dysfunction at this or next level of care. Aleksandr Young MD Rehab Consult Pager: [phone] History of Present Illness Hospital Course: Mr. Naren Mayfield is a 51 yo M with a hx of DM, HTN, HLD and renal failure on HD transferred to [facility] from [facility] on 03/09 with concern for ruptured R MCA aneurysm. Pt was found on imaging to have subarachnoid hemorrhage with a right temporal intracerebral hemorrhage. Vascular imaging was significant for a right sided large MCA aneurysm with multiple branches incorporated. Pt underwent right pterional craniotomy for repair of R MCA aneurysm via clipping on 03/10. Upon recovery in the neuro ICU the patient's neurological exam had declined and he had a fixed and dilated right pupil. CT imaging of the head and intracranial vasculature with perfusion data was significant for a small right epidural hematoma with significant amount of brain edema and shift. Pt subsequently underwent craniectomy evacuation of epidural hematoma on 03/11. Pt has remained in neuro ICU for continued transcranial doppler monitoring. Pt underwent video EEG which were abnormal for right cerebral hemisphere dysfunction in the right frontal region with epileptogenic potential and evidence of a severe diffuse encephalopathy. Pt underwent thoracentesis with pulmonary on 03/14 for pleural effusion. Pt has continued to be followed by renal for dialysis sessions. Pt extubated on 03/15. Sedation weaned 03/16. Corpak in place due to NPO status. PT/OT consulted for therapy needs. PM&R consulted for rehab recs for discharge planning. Past Medical History Past Medical History: Diagnosis Date DM (diabetes mellitus) (HCC) HLD (hyperlipidemia) HTN (hypertension) Renal failure Past Surgical History Past Surgical History: Procedure Laterality Date INTRACRANIAL ANEURYSM REPAIR N/A 03/10/2017 REPAIR ANEURYSM CRANIOTOMY performed by Edgar Bee MD at [facility] OR/Periop INTRACRANIAL ANEURYSM REPAIR Right 03/10/2017 Rt pterional craniotomy for clipping of MCA aneurysm performed by Edgar Bee MD at [facility] OR/Periop Family\\Social History Social History Social History Marital status: Spouse name: N/A Number of children: N/A Years of education: N/A Social History Main Topics Smoking status: Current Every Day Smoker Packs/day: 1.00 Years: 30.00 Smokeless tobacco: None Alcohol use None Drug use: None Sexual activity: Not Asked Other Topics Concern None Social History Narrative Family History Problem Relation Age of Onset Blood Clots Mother Hypertension Mother Diabetes Mother Medications: atorvastatin (LIPITOR) tablet 10 mg 10 mg Oral QHS bisacodyl (DULCOLAX) rectal suppository 10 mg 10 mg Rectal QDAY docusate (COLACE) oral solution 100 mg 100 mg Feeding Tube BID heparin (porcine) PF syringe 5,000 Units 5,000 Units Subcutaneous Q8H insulin aspart (NOVOLOG FLEXPEN) injection PEN 0-7 Units 0-7 Units Subcutaneous 5 X Day levETIRAcetam (KEPPRA) oral solution 1,500 mg 1,500 mg Feeding Tube QDAY metoprolol tartrate (LOPRESSOR) tablet 50 mg 50 mg Oral BID milk of magnesia (CONC) oral suspension 10 mL 10 mL Feeding Tube QDAY niMODipine (NYMALIZE) 3 mg/ mL solution 30 mg 30 mg Per OG Tube Q2H nystatin (MYCOSTATIN) oral suspension 500,000 Units 500,000 Units Swish & Swallow QID QUEtiapine (SEROQUEL) tablet 50 mg 50 mg Oral BID senna/docusate (SENOKOT-S) solution 10 mL 10 mL Feeding Tube BID PRN Medications: acetaminophen Q4H PRN, albuterol 0.5% Q4H PRN, fentaNYL citrate PF Q1H PRN, haloperidol Q6H PRN, hydrALAZINE Q6H PRN, ipratropium bromide Q4H PRN, labetalol (NORMODYNE; TRANDATE) injection Q10 MIN PRN, methylcellulose PRN, ondansetron Q6H PRN, pancrelipase 20,000 Units/ sodium bicarbonate 650 mg(#) PRN (Production Aide from Rx), sodium chloride 0.9% (NS) IP Dialysis PRN, sodium chloride 0.9% (NS) IP Dialysis PRN, sodium chloride 0.9% (NS) IP Dialysis PRN Allergies: No Known Allergies Prior Level of Function Self-Care/ADLs: Independent Mobility: Independent Home Environment: Home Situation: Lives with Family (sister) (03/18/2017 10:00 AM) Patient Owned Equipment: Single Point Cane (03/18/2017 10:00 AM) Type of Home: House (03/18/2017 10:00 AM) Entry Stairs: 3-5 Stairs (03/18/2017 10:00 AM) In-Home Stairs: Able to Live on One Level (03/18/2017 10:00 AM) Comments: Previously independent with ADLs. Uses single point cane when feeling weak. (03/18/2017 10:00 AM) No Data Recorded Support System: Lives with sister Current Level of Function PT Gait: Bed Mobility/Transfers Bed Mobility: Supine to Sit: Minimal Assist, x2 People, Assist with B LE, Assist with Trunk, Head of Bed Elevated Bed Mobility: Sit to Supine: Moderate Assist, x2 People, Assist with B LE, Assist with Trunk, Bed Flat Transfer Type: Sit to Stand Transfer: Assistance Level: To/From, Bed, Moderate Assist, x2 People Transfer: Assistive Device: Hand Hold Assist Transfers: Type Of Assistance: Verbal Cues, For Balance, For Safety Considerations End Of Activity Status: Nursing Notified, Instructed Patient to Request Assist with Mobility, Instructed Patient to Use Call Light, In Bed (bed alarm on) OT ADL's Where Assessed: Edge of Bed Grooming Assist: Moderate Assist Grooming Deficits: Verbal Cueing, Supervision/Safety, Wash/Dry Face LE Dressing Assist: Maximum Assist LE Dressing Deficits: Don/Doff R Sock, Don/Doff L Sock Functional Transfer Assist: Moderate Assist (x2) Comment: Patient required verbal cues and minimal assist of 2 for supine to sit transfer. Sat EOB for 15 minutes with minimal assist progressing to stand by assist. Performed grooming with repeated verbal cues for incision and corpak safety. Patient stood with moderate assist of 2 and verbal cues for safety. Review of Systems A 14 point review of systems was negative except for: as described in brief hospital course Physical Exam Temp: 37.2 C (99 F) (03/19 0800) Pulse: 78 (03/19 1000) Respirations: 19 PER MINUTE (03/19 1000) SpO2: 99 % (03/19 1000) O2 Delivery: Nasal Cannula (03/19 1000) SpO2 Pulse: 78 (03/19 1000) Body mass index is 38.85 kg/(m^2). Gen: Alert & Oriented X 3, No Acute Distress HEENT: R Craniectomy site c/d/i, Corpak in place, PERRL, EOMI, MMM Neck: Supple, symmetric Heart: Ext well perfused Lungs: Even, non-labored respirations : No Cunningham Skin: No rashes/lesions Ext: No c/c/e MS: Root Right Left Shoulder Abduction C5 5 * Elbow Flexion C5 5 * Elbow Extension C7 5 * Wrist Extension C6 5 * Finger Flexion C8 5 5 Finger Abduction T1 5 5 Hip Flexion L2 3 3 Knee Extension L3 5 4 Dorsiflexion L4 5 3 Plantarflexion S1 5 3 EHL Extension L5 5 3 *Unable to perform due to limb being restrained Neuro: Cranial Nerves Left facial droop, otherwise Cranial Nerves 2-12 are grossly intact DTR's No hyperreflexia noted Babinski Plantar Reflex is Downgoing Bilaterally Rapid Alternating Movements Normal Upper Extremity Tone Normal Lower Extremity Tone Normal Upper Extremity Sensation Intact to light touch bilaterally Lower Extremity Sensation Intact to light touch bilaterally Clonus Negative Bilaterally Memory/Cognition/Speech Pt with limited memory of early hospital details. Concentration impaired. Speech fluent. Intake/Output Summary: Intake/Output Summary (Last 24 hours) at 03/19/17 1034 Last data filed at 03/19/17 1000 Gross per 24 hour Intake 2089.36 ml Output 4550 ml Net -2460.64 ml Stool Occurrence: 1 (03/18/2017 7:00 PM) Last BM Date: 03/19/17 (03/19/2017 8:00 AM) BVI (Bladder Scan)(mL): 2 milliliters (03/19/2017 5:00 AM) No Data Recorded No Data Recorded No Data Recorded Oral Diet Order: NPO (03/12/2017 2:00 PM) Basic Metabolic Profile Lab Results Component Value Date/Time NA 136 (L) 03/19/2017 04:18 AM K 3.8 03/19/2017 04:18 AM CA 10.0 03/19/2017 04:18 AM CL 94 (L) 03/19/2017 04:18 AM CO2 21 03/19/2017 04:18 AM Lab Results Component Value Date/Time BUN 60 (H) 03/19/2017 04:18 AM CR 6.68 (H) 03/19/2017 04:18 AM GLU 166 (H) 03/19/2017 04:18 AM CBC w/Diff Lab Results Component Value Date/Time WBC 7.4 03/19/2017 04:18 AM RBC 2.96 (L) 03/19/2017 04:18 AM HGB 9.3 (L) 03/19/2017 04:18 AM HCT 27.0 (L) 03/19/2017 04:18 AM MCV 91.1 03/19/2017 04:18 AM MCH 31.3 03/19/2017 04:18 AM RDW 15.1 (H) 03/19/2017 04:18 AM PLTCT 218 03/19/2017 04:18 AM MPV 8.0 03/19/2017 04:18 AM Lab Results Component Value Date/Time NEUT 81 (H) 03/19/2017 04:18 AM ANC 6.00 03/19/2017 04:18 AM LYMA 4 (L) 03/19/2017 04:18 AM ALC 0.30 (L) 03/19/2017 04:18 AM SUZI 10 03/19/2017 04:18 AM AMC 0.70 03/19/2017 04:18 AM EOSA 4 03/19/2017 04:18 AM AEC 0.30 03/19/2017 04:18 AM BASA 1 03/19/2017 04:18 AM ABC 0.00 03/19/2017 04:18 AM Radiology: Reviewed Associated attestation - Richard Mackenzie MD - 03/19/2017 10:02 PM INTERVENTIONIST Rehabilitation Medicine Attending Physician Attestation: Agree with resident. Naren Mayfield is a pleasant 51 y.o. male with PMH of HL , HTN, ESRD on chronic HD, and diabetes mellitus type 2 who was admitted from OSH on 03/09/2017 after being found to be acutely unresponsive. The patient was intubated for acute respiratory failure and placed on mechanical ventilation. He was found to have SAH and concerns for MCA aneurysm, and thus he was admitted to NeICU and underwent angiography which showed Large right MCA bifurcation aneurysm by Dr. Rogel on 03/09/2017, right hemicraniectomy as well as craniotomy with aneurysm clipping/repair. He remains in the NeICU on close monitoring with TCDs for vasospasms and was ultimately extubated on 03/15/2017. The patient has experienced an acute hemorrhagic stroke syndrome, with resulting left hemiparesis (primarily LLE), dysphagia, and significant cognitive and functional deficits as noted. He seems to have medical complexity and goals with PT, OT, and GAMEWELL OPERATOR for acute inpatient rehabilitation. Recommend continued therapies, while the primary team continues to monitor and manage acute concerns for the patient while addressing dysphagia and adequate nutritional access. Discussed with the patient and will discuss with our dock coordinator. Will continue to follow for medical stability/ appropriateness for discharge. Thank you for this consultation. Please call with questions/concerns. I personally performed rubin portions of the history and exam. I discussed the case with the resident and concur with the resident's documentation of history, physical assessment and treatment plan unless otherwise noted. Richard Mackenzie MD * Janeen Morse - 03/12/2017 3:10 PM INTERVENTIONIST Associated Order(s): CONSULT DIETITIAN CLINICAL NUTRITION Clinical Nutrition Assessment Summary Nutrition Assessment of Patient: BMI Categories Adult: Obesity Class II: 35-39.9 Malnutrition Assessment: (pending subjective information) Current Oral Intake: NPO Estimated Calorie Needs: 1850-2220kcal (25-30kcal/kg desired wt 74kg) Estimated Protein Needs: 111-133g (1.5-1.8g/kg desired wt 74kf) Oral Diet Order: NPO Current EN Order: Novasource Renal @ 40ml/hr with 30ml water bolus [id number]. This provides 1920kcal, 87g, and 871ml free water. 51 yo M admitted 03/09 from OSH after being acutely unresponsive during dialysis. CT was done at OSH and CT demonstrated large lesion and a possible MCA aneurysm. PMH includes HLD, HTN, ESRD on dialysis, and diabetes. Upon arrival to , pt was intubated. 03/10 s/p clipping and craniectomy. Off propofol 03/12, vent weaning trial today. Pt with corpak tip in stomach. EN began 12:00 on 03/12 with Novasource Renal. Currently running at 20ml/hr. Consult for EN recs complete. Unable to see pt today, RD internal medicine specialist to follow up tomorrow. Pt received dialysis 03/11, Nonpitting edema in BLEs and facial, no pressure injuries noted. BM 03/12. Current weight is 244 lb. Per pt's license from August 2016, pt's weight was 245 lb. A1C taken 03/12/17 is 5.2%, could be falsely low. Will follow up with tolerance and nutrition status 03/13. Recommendation: As pt likely to extubate, agree with Novasource Renal Continuous @ 40 ml/hr goal rate. Additionally 3 prosource packets daily. Additional water per med team. This provides 2100 kcal, 132 g protein, and 691 ml free water. If extubated and passes swallow evaluation, recommend combination of renal- dialysis and diabetic consistent carb [id number] (60g CHO/meal). Intervention / Plan: Consult complete for EN recommendations Monitor labs, weight trends, EN intake/tolerance, GI health Will obtain further subjective data on follow up Nutrition Diagnosis: Nutrition Diagnosis: Inadequate protein-energy intake Etiology: SAH, s/p intubation Signs & Symptoms: 2 days w/o EN support Goals: EN tolerated and meeting >75% of nutritional needs Time Frame: Within 72 Hours Janeen Morse, Best Worker *[phone] Associated attestation - Crystal Mayen RD - 03/12/2017 3:21 PM INTERVENTIONIST Agree with internal medicine specialist's initial assessment/recommendations as summarized. Malnutrition assessment and updated recommendations to be completed at next visit as feasible. If patient unable to extubate soon, hypocaloric/high protein feeding goals should be initiated. Crystal Mayen RD, LD, CNSC *[phone] * Yuly Meléndez MD - 03/11/2017 5:02 PM INTERVENTIONIST Associated Order(s): CONSULT PULMONARY/CRITICAL CARE PHYSICIAN Formatting of this note may be different from the original. Pulmonary Critical Care Consult Note Admission Date: 03/09/2017 LOS: 2 days Reason for Consult: "Pleaural effusion- ?drain" Consult type: Co-management with signed orders Impression: 1) Left pleural effusion - unknown duratoin 2) Ruptured cerebral aneurysm s/p clipping 3) ESRD on HD 4) Volume overload 5) Hypoxemic respiratory failure 6) Mechanical ventilation Recommendations: > Newly diagnosed left pleural effusion, given the clinical context, is likely related to volume overload but should be evaluated by thoracentesis > Do not feel that this represents an empyema or complicated parapneumonic effusion that would require small bore chest tube placement > On ultrasonographic evaluation today there was a significant amount of pleural fluid that could be safely accessed via thoracentesis but given that he must lay flat with his venous access sheaths in place we will postpone the procedure till tomorrow > Please check CXR in AM, if he undergoes significant UF in dialysis today the effusion may decrease in size > Please page [phone] if there are any clinical changes overnight Patient seen and discussed with Dr. Rika Mclaughlin MD Pulmonary Critical Care, PGY-5 Pg. [phone] ATTESTATION I personally performed the E/M including history, physical exam, and MDM. Will f/u on repeat CXR tomorrow. If fluid still present, will proceed with thoracentesis once he is able to be moved. Staff name: Yuly Meléndez MD Date: 03/11/2017 History of Present Illness: Naren Mayfield is a 51 y.o. male History obtained from patients sister as patient was intubated and sedated. She reports that she is unsure whether he has been told he had a pleural effusion before or if he has ever undergone a thoracentesis. She does note that for some time he has been unable to lay flat at night due to dyspnea. Also that the week prior to coming in he underwent extra dialysis sessions to remove fluid. He did not have any fevers, chills, productive cough or chest pain prior to coming in that she is aware of. He does not have any known pulmonary problems and has never been admitted for breathing difficulties. He is a smoker and has smoked for about the past 30 years but has quit off and on. Past Medical History: Diagnosis Date DM (diabetes mellitus) (HCC) HLD (hyperlipidemia) HTN (hypertension) Renal failure Past Surgical History: Procedure Laterality Date INTRACRANIAL ANEURYSM REPAIR N/A 03/10/2017 REPAIR ANEURYSM CRANIOTOMY performed by Edgar Bee MD at [facility] OR/Periop INTRACRANIAL ANEURYSM REPAIR Right 03/10/2017 Rt pterional craniotomy for clipping of MCA aneurysm performed by Edgar Bee MD at [facility] OR/Periop Social History Social History Marital status: Spouse name: N/A Number of children: N/A Years of education: N/A Social History Main Topics Smoking status: Not on file Smokeless tobacco: Not on file Alcohol use Not on file Drug use: Not on file Sexual activity: Not on file Other Topics Concern Not on file Social History Narrative Family History Problem Relation Age of Onset Blood Clots Mother Hypertension Mother Diabetes Mother Allergies: Review of patient's allergies indicates no known allergies. Scheduled Meds: bisacodyl (DULCOLAX) rectal suppository 10 mg 10 mg Rectal QDAY ceFAZolin (ANCEF) IVP 1 g 1 g Intravenous Q24H* chlorhexidine gluconate (PERIDEX) 0.12 % solution 15 mL 15 mL Swish & Spit BID(8 -20) docusate (COLACE) oral solution 100 mg 100 mg Feeding Tube BID famotidine (PEPCID) injection 20 mg 20 mg Intravenous QHS [START ON 03/12/2017] levETIRAcetam in NaCl (iso-os) (KEPPRA) IVPB (premade) 1, 000 mg 100 mL 1,000 mg Intravenous QDAY(12) metoprolol tartrate (LOPRESSOR) tablet 100 mg 100 mg Per NG tube BID milk of magnesia (CONC) oral suspension 10 mL 10 mL Feeding Tube QDAY minoxidil (LONITEN) tablet 10 mg 10 mg Per NG tube BID niMODipine (NYMALIZE) 3 mg/ mL solution 60 mg 60 mg Per OG Tube Q4H senna/docusate (SENOKOT-S) solution 10 mL 10 mL Feeding Tube BID Continuous Infusions: dexmedetomidine (PRECEDEX) 400 mcg/NS 100 ml IV drip 1 mcg/kg/hr (03/11/17 1453) niCARdipine (cardENE) 20 mg/NS 200 mL infusion (std conc)(premade) Stopped (03/11/17 1140) propofol (DIPRIVAN) 10 mg/mL IV infusion Stopped (03/11/17 1313) PRN and Respiratory Meds:albuterol 0.5% Q4H PRN, fentaNYL citrate PF Q1H PRN, hydrALAZINE Q6H PRN, ipratropium bromide Q4H PRN, labetalol (NORMODYNE; TRANDATE ) injection Q15 MIN PRN, ondansetron Q6H PRN, sodium chloride 0.9% (NS) IP Dialysis PRN, sodium chloride 0.9% (NS) IP Dialysis PRN, sodium chloride 0.9% ( NS) IP Dialysis PRN Review of Systems: Review of systems not obtained from patient due to patient factors. Vital Signs: Last Filed in 24 hours Vital Signs: 24 hour Range BP: 123/56 (03/11 1528) Temp: 37.3 C (99.2 F) (03/11 1600) Pulse: 65 (03/11 1600) Respirations: 24 PER MINUTE (03/11 1600) SpO2: 98 % (03/11 1600) O2 Delivery: Endotracheal Tube (Oral) (03/11 1600) SpO2 Pulse: 65 (03/11 1600) Height: 172.7 cm (68") (03/11 1528) BP: (123-151)/(56-73) ABP: (123-170)/(53-74) ART MAP (Calculated) mm Hg: [80 mm Hg-106 mm Hg] Temp: [36.9 C (98.5 F)-37.3 C (99.2 F)] Pulse: [64-82] Respirations: [0 PER MINUTE-29 PER MINUTE] SpO2: [90 %-100 %] O2 Delivery: Endotracheal Tube (Oral) Physical Exam: General: Intubated and sedated, no response to verbal or tactile stimuli Head: Right sided surgical changes including periorbital ecchymoses and edema Eyes: Unable to examine right eye due to edema, left conj clear Throat: Lips normal, ETT in place Neck: Supple, JVP not elevated Lungs: Clear to auscultation, decreased air movement on left, no rales/rhonchi/ wheezes Heart: Regular rate and rhythm, no murmur Abdomen: Soft, non-distended, non-tender, +BS Extremities: Trace LE edema, LUE AV fistula Peripheral pulses: 2+ and symmetric, all extremities Cap Refill: <2 seconds Skin: Skin color, texture, turgor normal. No rashes or lesions except for as described above Lab/Radiology/Other Diagnostic Tests: Hematology: Lab Results Component Value Date HGB 7.5 03/11/2017 HCT 22.6 03/11/2017 PLTCT 159 03/11/2017 WBC 8.2 03/11/2017 NEUT 89 03/11/2017 ANC 7.20 03/11/2017 ALC 0.30 03/11/2017 SUZI 7 03/11/2017 AMC 0.60 03/11/2017 ABC 0.00 03/11/2017 MCV 91.1 03/11/2017 MCHC 33.2 03/11/2017 MPV 8.5 03/11/2017 RDW 16.3 03/11/2017 , Coagulation: Lab Results Component Value Date PTT 29.8 03/10/2017 INR 1.3 03/10/2017 , General Chemistry: Lab Results Component Value Date NA 135 03/11/2017 K 4.0 03/11/2017 CL 101 03/11/2017 GAP 14 03/11/2017 BUN 45 03/11/2017 CR 8.60 03/11/2017 GLU 100 03/11/2017 CA 7.6 03/11/2017 ALBUMIN 3.7 03/09/2017 OBSCA 1.05 03/11/2017 MG 2.1 03/11/2017 TOTBILI 0.7 03/09/2017 , Enzymes: Lab Results Component Value Date AST 21 03/09/2017 ALT 14 03/09/2017 ALKPHOS 61 03/09/2017 and Mg and PO4: Lab Results Component Value Date MG 2.1 03/11/2017 Pertinent radiology reviewed. Nicolas Mclaughlin MD Pager [phone] * Tracie Mitchell MD - 03/10/2017 10:43 AM INTERVENTIONIST Associated Order(s): CONSULT NEPHROLOGY PHYSICIAN Formatting of this note may be different from the original. Renal Consult Naren Mayfield Admission Date: 03/09/2017 ASSESSMENT/PLAN: Principal Problem: 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HCC) Active Problems: IVH (intraventricular hemorrhage) (HCC) Intraparenchymal hematoma of brain (HCC) Subarachnoid bleed (HCC) Naren Mayfield is a 51 y.o. male Subarachnoid hemorrhage s/p clipping ESRD on dialysis Large pleural effusion HTN Plan Dialysis performed today for volume I examined him on dialysis He was hemodynamically stable Plan for UF goal of 4 L Please resume his home anti hypertensives amlodipine, lopressor and minoxidil and losartan Wean cardene drip as able to We will plan on dialysis daily to help with HTN Will get his outpatient dialysis prescription If starting tube feeds, please choose a renal prepaaration. Per patients sister, he is anuric, so would hold on starting lasix and zaroxylyn - renally dose medications - avoid mag containing medications - avoid PICC lines - strict Is and Os - Daily weights Tracie Mitchell MD Pager [phone] History Reason for Consult: ESRD HPI: Naren Mayfield is a 51 y.o. male with ESRD on dialysis transferred from outside hospital on 03/09/17 after becoming unresponsive at dialysis. Ct done demonstrated sub arachnoid hemorrhage and a possible MCA aneurysm. Plans for craniotomy today and clipping of MCA aneurysm. This is his first admission to . He was in surgery all day yesterday and had clipping of his anuerysm done. He returned from the OR at 7pm and the plan was to dialyse him for fluid overload, but he had to go back to the OR. He is currently on cardene drip with blood pressure in the 140 systolic range I talked to sister. He started dialysis 1.5 years ago and he dialyses in [place], [place]. He usually dialyses T// but dialysed 4 times last week as he was way above dry weight. Past Medical History: Diagnosis Date DM (diabetes mellitus) (HCC) HLD (hyperlipidemia) HTN (hypertension) Renal failure Past Surgical History: Procedure Laterality Date INTRACRANIAL ANEURYSM REPAIR N/A 03/10/2017 REPAIR ANEURYSM CRANIOTOMY performed by Edgar Bee MD at [facility] OR/Periop INTRACRANIAL ANEURYSM REPAIR Right 03/10/2017 Rt pterional craniotomy for clipping of MCA aneurysm performed by Edgar Bee MD at [facility] OR/Periop Family History Problem Relation Age of Onset Blood Clots Mother Hypertension Mother Diabetes Mother Social History Social History Marital status: Spouse name: N/A Number of children: N/A Years of education: N/A Social History Main Topics Smoking status: None Smokeless tobacco: None Alcohol use None Drug use: None Sexual activity: Not Asked Other Topics Concern None Social History Narrative Allergies Review of patient's allergies indicates no known allergies. Medications MEDS ceFAZolin (ANCEF) IV 1 g Intravenous Q24H* chlorhexidine gluconate 15 mL Swish & Spit BID(8-20) docusate 100 mg Feeding Tube BID famotidine 20 mg Intravenous QHS [START ON 03/12/2017] levETIRAcetam (KEPPRA) IVPB 1,000 mg Intravenous QDAY(12) levETIRAcetam (KEPPRA) IVPB 500 mg Intravenous ONCE metoprolol tartrate 100 mg Per NG tube BID milk of magnesia (CONC) 10 mL Feeding Tube QDAY minoxidil 10 mg Per NG tube BID niMODipine 60 mg Per OG Tube Q4H senna/docusate 10 mL Feeding Tube BID IV MEDS dexmedetomidine (PRECEDEX) 400 mcg/NS 100 ml IV drip Stopped (03/10/17 0800 ) niCARdipine (cardENE) 20 mg/NS 200 mL infusion (std conc)(premade) Stopped (03/11/17 1140) propofol (DIPRIVAN) 10 mg/mL IV infusion 50 mcg/kg/min (03/11/17 1207) Prn albuterol 0.5% Q4H PRN, fentaNYL citrate PF Q1H PRN 50 mcg at 03/09/17 2150, hydrALAZINE Q6H PRN 10 mg at 03/09/17 2134, ipratropium bromide Q4H PRN, labetalol (NORMODYNE; TRANDATE) injection Q15 MIN PRN 10 mg at 03/11/17 1152, ondansetron Q6H PRN, sodium chloride 0.9% (NS) IP Dialysis PRN, sodium chloride 0.9% (NS) IP Dialysis PRN Stopped at 03/11/17 1020, sodium chloride 0.9% (NS) IP Dialysis PRN HOME MEDS Prior to Admission Medications Prescriptions Last Dose Informant Patient Reported? Taking? HYDROcodone/acetaminophen (NORCO) 7.5/325 mg tablet Yes Yes Sig: Take 1 tablet by mouth every 6 hours as needed for Pain albuterol (VENTOLIN HFA) 90 mcg/actuation inhaler Yes Yes Sig: Inhale 2 puffs by mouth into the lungs every 6 hours as needed for Wheezing or Shortness of Breath. Shake well before use. amLODIPine (NORVASC) 10 mg tablet Yes Yes Sig: Take 10 mg by mouth daily. atorvastatin (LIPITOR) 10 mg tablet Yes Yes Sig: Take 10 mg by mouth at bedtime daily. baclofen (LIORESAL) 10 mg tablet Yes Yes Sig: Take 10 mg by mouth daily. calcium acetate (PHOSLO) 667 mg capsule Yes Yes Sig: Take 1,334 mg by mouth three times daily with meals. Take two tabs with meals, take one with snacks doxazosin (CARDURA) 8 mg tablet Yes Yes Sig: Take 8 mg by mouth at bedtime daily. ferric citrate 210 mg iron tab Yes Yes Sig: Take 210 mg by mouth three times daily. fluticasone/salmeterol (ADVAIR DISKUS) 250/50 mcg inhalation disk Yes Yes Sig: Inhale 1 puff by mouth into the lungs daily. furosemide (LASIX) 40 mg tablet Yes Yes Sig: Take 40 mg by mouth twice daily. insulin aspart (NOVOLOG) 100 unit/mL injection Yes Yes Sig: Inject 12 Units under the skin three times daily with meals. insulin glargine (LANTUS) 100 unit/mL injection Yes Yes Sig: Inject 60 Units under the skin twice daily. 1 vial contains 10mL losartan(+) (COZAAR) 100 mg tablet Yes Yes Sig: Take 100 mg by mouth daily. losartan-hydrochlorothiazide (HYZAAR) 100-25 mg tablet Yes Yes Sig: Take 1 tablet by mouth every morning. metOLazone (ZAROXOLYN) 5 mg tablet Yes Yes Sig: Take 5 mg by mouth daily. metoprolol tartrate (LOPRESSOR) 100 mg tablet Yes Yes Sig: Take 200 mg by mouth twice daily. minoxidil (LONITEN) 10 mg tablet Yes Yes Sig: Take 10 mg by mouth twice daily. Facility-Administered Medications: None Review of Systems Unable to obtain due to patients condition Physical Exam Vital Signs: Last Filed In 24 Hours Vital Signs: 24 Hour Range BP: 151/73 (03/10 1830) Temp: 36.9 C (98.5 F) (03/11 1000) Pulse: 75 (03/11 1215) Respirations: 25 PER MINUTE (03/11 1215) SpO2: 99 % (03/11 1215) O2 Delivery: Endotracheal Tube (Oral) (03/11 1215) SpO2 Pulse: 75 (03/11 1215) BP: (151)/(73) ABP: (130-170)/(53-74) ART MAP (Calculated) mm Hg: [80 mm Hg-106 mm Hg] Temp: [36.9 C (98.5 F)-37.1 C (98.8 F)] Pulse: [64-82] Respirations: [0 PER MINUTE-29 PER MINUTE] SpO2: [90 %-100 %] O2 Delivery: Endotracheal Tube (Oral) Vitals: 03/09/17 1525 03/11/17 1000 Weight: 115.1 kg (253 lb 12 oz) 120.1 kg (264 lb 12.4 oz) Gen: Aintubated HEENT: Sclera normal CV: no JVD, S1 and S2 normal, no rubs, murmurs or gallops Pulm: decreased breath sounds at bases GI: BS+ x4, soft no organomegaly Neuro: sedated Ext: no edema, cyanosis, clubbing Pulse: 2+ bilaterally Labs: Recent Labs 03/09/17 1843 03/10/17 0325 03/10/170 03/11/17 0355 NA 132* 134* 133* 135* K 3.5 3.4* 4.1 4.0 CL 95* 96* 98 101 CO2 29 28 21 20* GAP 8 10 14* 14* BUN 36* 38* 43* 45* CR 6.24* 6.46* 8.05* 8.60* GLU 83 91 101* 100 CA 8.4* 8.4* 8.2* 7.6* ALBUMIN 3.7 -- -- -- MG 2.1 2.2 -- 2.1 PO4 6.0* 6.1* 8.1* 9.1* Recent Labs 03/09/17 1843 03/10/17 0325 03/10/170 03/11/17 0050 03/11/17 0355 03/11/17 0607 03/11/17 0843 WBC 7.4 8.6 9.0 -- 8.2 -- -- HGB 8.6* 9.0* 9.1* -- 7.5* -- -- HCT 26.3* 25.5* 27.7* -- 22.6* -- -- PLTCT 164 152 157 -- 159 -- -- INR 1.3* -- 1.3* -- -- -- -- PTT 31.9 -- 29.8 -- -- -- -- AST 21 -- -- -- -- -- -- ALT 14 -- -- -- -- -- -- ALKPHOS 61 -- -- -- -- -- -- TNI -- -- 0.16* 0.13* 0.15* 0.16* 0.17* Estimated Creatinine Clearance: 13.1 mL/min (based on Cr of 8.6). Vitals: 03/09/17 1525 03/11/17 1000 Weight: 115.1 kg (253 lb 12 oz) 120.1 kg (264 lb 12.4 oz) Recent Labs 03/11/17 0050 03/11/17 0355 PHART 7.36 7.36 PO2ART 140* 135* Radiology Pertinent radiology reviewed. Tracie Mitchell MD Pager [phone] * Rosie Tanner, ROLO - 03/09/2017 4:28 PM INTERVENTIONIST Associated Order(s): CONSULT NEURO CRITICAL CARE PHYSICIAN Formatting of this note may be different from the original. Neuro Critical Care Consult Note Naren Mayfield Admission Date: 03/09/2017 LOS: 0 days Full Code ASSESSMENT/PLAN Patient Active Problem List Diagnosis Date Noted IVH (intraventricular hemorrhage) (HCC) 03/09/2017 Intraparenchymal hematoma of brain (HCC) 03/09/2017 Subarachnoid bleed ([facility]) 03/09/2017 Naren Mayfield is a 51 y.o. male with PMH of HLD, HTN, renal failure, dialysis , and diabetes presenting from OSH after being at dialysis 03/09 when he became acutely unresponsive. CT was done at OSH and demonstrated SAH and a possible MCA aneurysm. Patient was then transferred to for further care and management. Hospital and ICU course: 03/09: Admit NEICU. CTA. Angiogram Neuro: IPH rt temporal lobe, SAH rt frontotemporal lobe Escobar and Moore Grade (on admission): 4 Modified Stone Grade (on admission): 3 Evidence of hydrocephalus: No EVD at: N/A Sodium Goal: 135-145 - CTA now, Angiogram after - VTE prophylaxis: Mechanical prophylaxis; Sequential compression device - SBP <140 - Keppra 500 BID - Nimotop 60mg q4hrs - Consider 1:1 fluid replacement - TCDs Daily - Neuro-ICU monitoring, neurochecks q 1 hrs, parameters for prevention of secondary brain injury (avoid hypotension, hypoxia, fever, hyperglycemia, significant anemia, diagnose and treatment of seizures, electrolyte abnormalities) - Cognitive impairment suspected? Yes - if yes, GAMEWELL OPERATOR cognitive evaluation ordered? Not at this time, will evaluate when extubated Sedation/Pain Management: Yes - Propofol - Assess for delirium daily Cardiac: - SBP goal: < 140 - MAP goal > 65 - Cardene drip to meet SBP goal - EKG with SR - Will add BACK TUFTER medications when verified Respiratory: Date of Intubation: 03/09/17 Reason: Airway protection - AC 400/40%/16/5 - OSH CXR with near complete opacification of left lung, likely pleural fluid. CXR at slightly improved - PaO2 goal >100, Spo2 goal >95%, PCO2 goal 35-40 torr, chest physiotherapy, bronchotherapy, PD& V q 6 hrs GI: - Feeding: NPO - neurosurgery bowel regimen, ensure daily BM Heme: - assess for coagulopathy, maintain platelets above 100k, INR <1.5 ID: - Tmax 36.9 - aim for normothermia, Temp <38.3 celsius, normothermia protocol if febrile Renal: Renal failure on dialysis - Renal consult - Cunningham in place - Monitor I/O balance - Aim for normovolemia Endocrine: DM - Blood glucose goal 100-180mg/dl FEN: - IVF: NS @ 75ml/hr - Magnesium goal >2.0, i-Jarred goal > 1.0, Potassium goal >4.0 mEq/L Prophylaxis Review: A) GI: [id number] B) Lines: Yes; Arterial Line; Indication: Continuous BP monitoring; Location: Radial C) Urinary Catheter: Yes; Retain cunningham due to: Need for accurate Intake and Output D) Antibiotic Usage: No E) VTE: SCDs F) Isolation: NA G)Seizures: Keppra I) Restraints: Patient assessed for need for restraints. Disposition/Family: NEICU Primary service: NSG Consults: NEICU, Renal SUBJECTIVE Chief Complaint: SAH History of Present Illness: Naren Mayfield is a 51 y.o. male with PMH of HLD, HTN, renal failure, dialysis, and diabetes presenting from OSH after being at dialysis earlier today when he became acutely unresponsive. CT was done at OSH and demonstrated SAH and a possible MCA aneurysm. Patient was then transferred to for further care and management. Past Medical History: Diagnosis Date DM (diabetes mellitus) (HCC) HLD (hyperlipidemia) HTN (hypertension) Renal failure No past surgical history on file. Family History Problem Relation Age of Onset Blood Clots Mother Hypertension Mother Diabetes Mother Social History Social History Narrative No narrative on file Code Status: Full Code Decision Maker: Self and sister Mary [phone] Immunizations (includes history and patient reported): There is no immunization history on file for this patient. Allergies: Review of patient's allergies indicates no known allergies. Prescriptions Prior to Admission Medication Sig albuterol (VENTOLIN HFA) 90 mcg/actuation inhaler Inhale 2 puffs by mouth into the lungs every 6 hours as needed for Wheezing or Shortness of Breath. Shake well before use. amLODIPine (NORVASC) 10 mg tablet Take 10 mg by mouth daily. atorvastatin (LIPITOR) 10 mg tablet Take 10 mg by mouth at bedtime daily. baclofen (LIORESAL) 10 mg tablet Take 10 mg by mouth daily. calcium acetate (PHOSLO) 667 mg capsule Take 1,334 mg by mouth three times daily with meals. Take two tabs with meals, take one with snacks doxazosin (CARDURA) 8 mg tablet Take 8 mg by mouth at bedtime daily. ferric citrate 210 mg iron tab Take 210 mg by mouth three times daily. fluticasone/salmeterol (ADVAIR DISKUS) 250/50 mcg inhalation disk Inhale 1 puff by mouth into the lungs daily. furosemide (LASIX) 40 mg tablet Take 40 mg by mouth twice daily. HYDROcodone/acetaminophen (NORCO) 7.5/325 mg tablet Take 1 tablet by mouth every 6 hours as needed for Pain insulin aspart (NOVOLOG) 100 unit/mL injection Inject 12 Units under the skin three times daily with meals. insulin glargine (LANTUS) 100 unit/mL injection Inject 60 Units under the skin twice daily. 1 vial contains 10mL losartan(+) (COZAAR) 100 mg tablet Take 100 mg by mouth daily. losartan-hydrochlorothiazide (HYZAAR) 100-25 mg tablet Take 1 tablet by mouth every morning. metOLazone (ZAROXOLYN) 5 mg tablet Take 5 mg by mouth daily. METOPROLOL SUCCINATE PO Take 200 mg by mouth at bedtime daily. metoprolol tartrate (LOPRESSOR) 100 mg tablet Take 200 mg by mouth twice daily. minoxidil (LONITEN) 10 mg tablet Take 10 mg by mouth twice daily. Review of Systems: Review of systems not obtained from patient due to patient factors. OBJECTIVE Vital Signs: Last Filed Vital Signs: 24 Hour Range BP: 127/80 (03/09 1715) ABP: 146/71 (03/09 1715) Temp: 36.9 C (98.4 F) (03/09 1525) Pulse: 70 (03/09 1715) Respirations: 19 PER MINUTE (03/09 1525) SpO2: 94 % (03/09 1715) O2 Delivery: Endotracheal Tube (Oral) (12/02 1715) Height: 172.7 cm (68") (03/09 1525) Weight: 115.1 kg (253 lb 12 oz) (03/09 1525) BP: (127-141)/(78-85) ABP: (110-146)/(55-71) Temp: [36.9 C (98.4 F)] Pulse: [70-84] Respirations: [19 PER MINUTE] SpO2: [94 %-97 %] O2 Delivery: Endotracheal Tube (Oral) Intensity Pain Scale 0-10 (Pain 1): (not recorded) Vitals: 03/09/17 152 Weight: 115.1 kg (253 lb 12 oz) Artificial airway: Endotracheal Tube Ventilator/ Respiratory Therapy: Yes: Mode: V/AC+ Set Vt (ml): [400 milliliters-500 milliliters] Tidal Volume Spont (mL): [263 milliliters-518 milliliters] Set RR: [14 breaths/minutes-16 breaths/minutes] Total Respiratory Rate (Breaths/Min): [21 breaths/minutes-24 breaths/minutes] O2%: [40 %-75 %] PIP Actual: [10 cm H20-22 cm H20] PEEP/CPAP: [5 cm H2O] PSupport: [5 cm H20] Vent weaning trial: Per protocol Lines: Arterial Line and Peripheral Line Drains: Cunningham Catheter: - mL Intake/Output Summary: (Last 24 hours) No intake or output data in the 24 hours ending 03/09/17 1734 Physical Exam: Blood pressure 127/80, pulse 70, temperature 36.9 C (98.4 F), height 172.7 cm (68"), weight 115.1 kg (253 lb 12 oz), SpO2 94 %. [place] coma score: E: 4 - Opens eyes on own M: 5 - Pushes away noxious stimulus V: 1T - Makes no noise FOUR score: E: 3 M: 3 BR: 4 Resp: 1 Neuro: Mental Status: Intubated, thrashing. Moving all extremities, not following commands. Cranial Nerves: Face symmetric, pupils reactive - Pupil exam: Size: 3 Reactivity: Brisk - Corneal reflex: R - present L - present - Grimace/facial movement: present - Cough: present - Gag reflex: present Motor: RUE: Strength: 4/5; localizes to noxious RLE: Strength: 3/5; spontaneous LUE: Strength: 3/5; spontaneous LLE: Strength: 3/5; spontaneous Sensory: LOS severity of sensory loss Lungs: clear to auscultation bilaterally Pulmonary: Respiratory status: Stable Heart: regular rate and rhythm, S1, S2 normal, no murmur, click, rub or gallop Abdomen: soft, non-tender. Bowel sounds normal. No masses, no organomegaly, abnormal findings: obese Extremities: extremities normal, atraumatic, no cyanosis or edema Skin: Skin color, texture, turgor normal. No rashes or lesions Point of Care Testing: (Last 24 hours): Lab Review: Pertinent labs reviewed Radiology and Other Diagnostic Procedures Review: Pertinent radiologic and diagnostic procedures reviewed. Rosie Tanner, WELFARE AIDE Date: 03/09/[phone] I spent 65 minutes managing the care of this patient. Mr. Mayfield is in critical condition with SAH and MCA aneurysm, HTN. Cares included: detailed neurologic and systems exam, medication review, laboratory data review and interpretation, electrolyte management, review of available imaging, DVT/PE prophylaxis review, diet review, activity review, mechanical ventilation and sedation management, and coordination of care with consulted teams in this encounter Miscellaneous Notes * Case Mgmt DC Plan - Yesenia Stockton - 03/26/2017 11:21 AM INTERVENTIONIST Case Management Progress Note NAME:Naren Mayfield :[birth year] AGE: 51 y.o. ADMISSION DATE: 03/09/2017 DAYS ADMITTED: LOS: 17 days Todays Date: 03/26/2017 Plan REJI met with the neurosurgery team regarding POC and d/c planning. Pt is ready to d/c today, facility has accepted, since REJI was able to get transportation arranged for dialysis. Pt going to [facility], [facility] today at 3:00 via [employer] [facility] W/C Van ([phone]), following his dialysis today Interventions ? Support Mary Chaparro, pt's sister is primary source of support. ? Info or Referral REJI called [facility] Medicaid to set up transportation ([phone]; where's my ride is [phone]) at d/c; [facility] denied. [facility] also originally denied dialysis apt transportation, but SW was eventually able to obtain authorization. Pt's transport to and from Dialysis apts from [facility], are as follows: Pt's Medicaid ID is [id number] 03/28/17 9:00am apt fern picker @ 8 [facility] Confirmation#[id number] 03/30/17 9:00am fern picker @8 Confirmation #[id number] 04/02/17 9am apt, fern picker @ 8:00am from [facility] Confirmatoin #[id number] 04/04/17 9am apt from [facility] (train operations supervisor @ 8:00am) Confirmation #[id number] 04/06/17 9am apt from [facility] (train operations supervisor @ 8:00am) Confirmation #[id number] 04/09/17 9am apt from [facility] (train operations supervisor @ 8:00am) Confirmation #[id number] 04/11/17 9am apt from [facility] (train operations supervisor @ 8:00am) Confirmation #[id number] 04/13/17 9am apt from [facility] (train operations supervisor @ 8:00am) Confirmation #[id number] ? Discharge Planning Discharge Planning: OP HD or PD Pt planning on going to [facility], [facility] today at 3:00 via [place] [facility] W/C Van ([phone]) Via [facility] in [place] - Acute Rehab [address] [place], [place] [id number] [place] [address] [facility] [address], [place] [address] ? Medication Needs ? Financial ? Legal ? Other Disposition ? Discharge Preparation When ready for discharge, who will be responsible for transporting?: sister Type of Residence: Private residence Patient expects to be discharged to: Rehab facility Was the patient receiving home care services?: No ? Expected Discharge Expected Discharge Date: 03/25/17 ? Discharge Disposition Disposition: Inpatient Rehab Facility (IRF) Inpatient Rehab: [facility] ([place], [place]) ([phone]) ? Next Level Care Yesenia Stockton, [facility] *[phone] * Case Mgmt DC Earl - Kavitha Pimentel - 03/26/2017 10:04 AM INTERVENTIONIST Request to Arrange Patient Transportation Received request from Yesenia Stockton [facility] to arrange transportation for pt to transfer to [facility] in [place]; [address] [address] today. Arrival date and time: 03/26 @ 1530 Transport company: [employer] @ [phone] Instructions for clark driver: Pt needs wheelchair van, has no other special needs. Cost of transport: $325 to be paid by [facility] per SWCM. Kavitha Pimentel It Help Desk Manager For further assistance please contact [facility] *[phone] * Care Plan - Consuelo Cox RN - 03/26/2017 12:33 AM INTERVENTIONIST Problem: Neurological Status, Impaired/Altered Goal: Progress toward maximizing functional outcomes Outcome: Goal Ongoing Neuro checks done Q4 Goal: Cognitive status restored to baseline Outcome: Goal Ongoing Pt reoriented as needed. Problem: Discharge Planning Goal: Participation in plan of care Outcome: Goal Ongoing Discharge plan in place. Problem: Pain Goal: Management of pain Outcome: Goal Ongoing Pain management plan in place. Goal: Knowledge of pain management Outcome: Goal Ongoing RN educated pt on pain management regimen. Problem: Tissue Perfusion, Altered Goal: Adequate tissue perfusion Outcome: Goal Ongoing Cap refill less than 3 seconds. Problem: Falls, High Risk of Goal: Absence of falls-Adult Patient Outcome: Goal Ongoing Fall bundle in place. Problem: Skin Integrity Goal: Skin integrity intact Outcome: Goal Ongoing Skin CDI other than documented wounds. Problem: Nutrition Deficit Goal: Adequate nutritional intake Outcome: Goal Ongoing Pt on a nectar thick diet. Problem: Self-Care Deficit Goal: Maximize ADL functioning Outcome: Goal Ongoing Pt encouraged to participate in all care provided. * Case Mgmt DC Plan - Kavitha Pimentel - 03/25/2017 11:32 AM INTERVENTIONIST Request to Arrange Patient Transportation Received request from Yesenia Stockton [facility] to arrange transportation for pt to transfer to [facility], [address] [facility] [place] [address] today. Transportation cancelled per SWCM @ 1330 Transport company: [employer] [phone] Instructions for clark driver: Pt needs wheelchair van, has no other special needs. Cost of transport: $325 to be paid by [facility] per SWCM Patient Transportation Quote Request Received request from MAE Rossi to check on quotes for wheelchair van to transfer pt to [facility] in [place], [address] [place] [address] [employer] [phone]: $325 [facility] Transport [phone]- $480 Kavitha Pimentel It Help Desk Manager For further assistance please contact [facility] *[phone] * Case Mgmt DC Plan - Yesenia Stockton - 03/25/2017 11:28 AM INTERVENTIONIST Case Management Progress Note NAME:Naren Mayfield :[birth year] AGE: 51 y.o. ADMISSION DATE: 03/09/2017 DAYS ADMITTED: LOS: 16 days Todays Date: 03/25/2017 Plan SW met with the neurosurgery team regarding POC and d/c planning; pt is ready to d/c today. However, Via [facility] will only accept if pt's dialysis transport has been arranged for pt. ([facility] denied without transportation arrangement for pt's dialysis). Interventions ? Support ? Info or Referral SW called [facility] Community Plan to set up w/c transport [phone]; member service CM authorization requested for pt's dialysis transportation. Mihir to call SW back with confirmation ([phone]); 16:30 03/25/17. REJI also called [facility] transport in [place] requesting transport assistance. 03/28/17 9:00am apt fern picker @ 8 [facility] Confirmation# 03/30/17 9:00am fern picker @8 Confirmation # 04/01/17 9am apt, fern picker @ 8:00am from [facility] Confirmatoin # 04/03/17 9am apt from [facility] (train operations supervisor @ 8:00am) Confirmation # 04/05/17 9am apt from [facility] (train operations supervisor @ 8:00am) Confirmation # 04/07/17 9am apt from [facility] (train operations supervisor @ 8:00am) Confirmation # 04/09/17 9am apt from [facility] (train operations supervisor @ 8:00am) Confirmation # 04/11/17 9am apt from [facility] (train operations supervisor @ 8:00am) Confirmation # 04/13/17 9am apt from [facility] to [facility] (train operations supervisor @ 8:00am) Confirmation # [facility] will not transport pt from Hospital to [facility]. SW discussed this with the SW @ [facility] ? Discharge Planning Discharge Planning: OP HD or PD Set up transportation for pt's dialysis. Pt going to [facility] as soon as w/c van can be arranged [facility] in [place] - Acute Rehab [address] [place] [address] [facility] [address], [place] [address] ? Medication Needs ? Financial ? Legal ? Other Disposition ? Discharge Preparation When ready for discharge, who will be responsible for transporting?: sister Type of Residence: Private residence Patient expects to be discharged to: Rehab facility Was the patient receiving home care services?: No ? Expected Discharge Expected Discharge Date: 03/25/17 ? Discharge Disposition ? Next Level Care Yesenia Stockton, [facility] *[phone] * Care Plan - Patito Moulton RN - 03/25/2017 12:19 AM INTERVENTIONIST Problem: Neurological Status, Impaired/Altered Goal: Progress toward maximizing functional outcomes Outcome: Goal Ongoing Neuro checks performed q4hrs, NIH assessed at beginning of shift. Problem: Discharge Planning Goal: Participation in plan of care Outcome: Goal Ongoing POC discussed with patient. Pt verbalized understanding. Problem: Pain Goal: Management of pain Outcome: Goal Ongoing Pt denies pain at present. Problem: Falls, High Risk of Goal: Absence of falls-Adult Patient Outcome: Goal Ongoing Fall risk bundle in place. * Care Plan - Consuelo Cox RN - 03/24/2017 3:07 AM INTERVENTIONIST Problem: Neurological Status, Impaired/Altered Goal: Progress toward maximizing functional outcomes Outcome: Goal Ongoing Neuro assessments done Q4h. Problem: Discharge Planning Goal: Participation in plan of care Outcome: Goal Ongoing Discharge plan in place. Problem: Pain Goal: Management of pain Outcome: Goal Ongoing Pain management plan in place. Goal: Knowledge of pain management Outcome: Goal Ongoing RN educated pt on pain management regimen. Problem: Tissue Perfusion, Altered Goal: Adequate tissue perfusion Outcome: Goal Ongoing Cap refill less than 3 seconds Problem: Falls, High Risk of Goal: Absence of falls-Adult Patient Outcome: Goal Ongoing Fall bundle in place. Problem: Skin Integrity Goal: Skin integrity intact Outcome: Goal Ongoing Skin CDI. Problem: Nutrition Deficit Goal: Adequate nutritional intake Outcome: Goal Ongoing Pt currently on a necator thick diet. * Case Mgmt DC Plan - Yesenia Stockton - 03/22/2017 4:17 PM INTERVENTIONIST Case Management Progress Note NAME:Naren Mayfield :[birth year] AGE: 51 y.o. ADMISSION DATE: 03/09/2017 DAYS ADMITTED: LOS: 13 days Todays Date: 03/22/2017 Plan SW met with the neurosurgery team regarding POC and d/c planning. Pt may be ready to transition to IPR as early as Saturday. Interventions ? Support Pt's sister, Mary Mayfield ([phone]) is pt's primary support. She is working with [facility] housing to try and get him his own place, once he is done with IPR. She is also taking responsibility for pt's daughter, Charo (9y/o). ? Info or Referral SW was asked to draft a statement for pt, stating that pt is giving his sister , Mary, permission to assist with setting up Housing/utility and practical planning through the end of this year (04/07/17). REJI reviewed with pt and pt signed. This was sent to Calista Maldonado with the housing authority in [place] ( [phone]; [phone]); per pt and pt's sister's request. ? Discharge Planning Discharge Planning: OP HD or PD SW sent a referral to [facility] in [place], but they denied acceptance , stating that pt needs to have a d/c plan from there. REJI discussed this with Mary, and she stated that she will not let him be homeless--that she can take him back in to her home, until she can get the housing voucher approved. REJI will review this with [facility] clinical liaison. [facility] - Acute Rehab [address] [place] [address] ? Medication Needs ? Financial ? Legal ? Other Disposition ? Discharge Preparation When ready for discharge, who will be responsible for transporting?: sister Type of Residence: Private residence Patient expects to be discharged to: Rehab facility Was the patient receiving home care services?: No ? Expected Discharge Expected Discharge Date: 03/25/17 ? Discharge Disposition ? Next Level Care Yesenia Stockton, [facility] *[phone] * Procedures (Immed Post or Bedside) - Daianaberthajocelyn ElaineROLO - 03/21/2017 5: 47 PM INTERVENTIONIST Formatting of this note may be different from the original. Neuro Critical Care Transcranial Doppler Ultrasound Report Naren Mayfield [id number] 51 y.o. male Diagnosis: SAH Indication for TCD: Evaluation for cerebral vasospasm Blood pressure 161/89, pulse 79, temperature 36.5 C (97.7 F), height 172.7 cm (68"), weight 103.2 kg (227 lb 8.2 oz), SpO2 94 %. Hgb: 10.2gm/dl Intake/Output Summary (Last 24 hours) at 03/21/17 1747 Last data filed at 03/21/17 1600 Gross per 24 hour Intake 1411 ml Output 2620 ml Net -1209 ml Escobar and Moore: 4 Modified Stone: 3 Observations: The following denote maximal velocities recorded for that vessel territory Procedure and Results: A complete transcranial doppler ultrasound examination was performed. Interpretation: Reference Values Lindegaard Ratio Pulsatility Ratio <3: Probability of vasospasm - <15% <0.5: Below normal 3 - 4.5: Probability of vasospasm - 50-75% 0.5 - 1.2: Normal >4.5: Probability of vasospasm - >95% 1.2 - 1.5: Above normal >1.5: Abnormal ATTESTATION I have personally performed the procedure. Procedure time: 15 minutes Results communicated to the neurosurgical team Staff name: Elaine ROLO Nicholson Date: 03/21/2017 Associated attestation - Derrell Bowers MD - 03/22/2017 7:55 AM INTERVENTIONIST I have personally reviewed the study. Bilaterally elevated LRs but mean MCA velocities < 120, do not meet criteria for vasospasm. Follow up study recommended. Derrell Bowers MD 03/22/2017 7:55 AM * Case Mgmt DC Plan - Kavitha Pimentel - 03/20/2017 3:54 PM INTERVENTIONIST Request to Send Referral Received request from Yesenia Stockton [facility] to send referral to the following facility: [facility] [address] [place] [address] Kavitha Pimentel It Help Desk Manager For additional assistance please contact [facility] *[phone] * Case Mgmt DC Plan - Diana Scott RN - 03/20/2017 3:33 PM INTERVENTIONIST Case Management Progress Note NAME:Naren Mayfield :[birth year] AGE: 51 y.o. ADMISSION DATE: 03/09/2017 DAYS ADMITTED: LOS: 11 days Todays Date: 03/20/2017 Plan Ongoing DC planning - Dialysis Center update Interventions ? Support ? Info or Referral ? Discharge Planning Discharge Planning: OP HD or PD - NCM updated Danita at [facility] - [place], [place], ph [phone] / fax [phone] on patient's discharge planning (likely IPR, hopefully in [place], next week). NCM will contact [facility] again upon discharge so that they are aware of where patient is recovering. ? Medication Needs ? Financial ? Legal ? Other Disposition ? Discharge Preparation When ready for discharge, who will be responsible for transporting?: sister Type of Residence: Private residence Patient expects to be discharged to: Rehab facility Was the patient receiving home care services?: No ? Expected Discharge Expected Discharge Date: 03/25/17 ? Discharge Disposition ? Next Level Care THANG Mack, pilates instructor Nurse Abalone Diver [phone] * Case Mgmt DC Plan - Yesenia Stockton - 03/20/2017 2:58 PM INTERVENTIONIST Case Management Progress Note NAME:Naren Mayfield :[birth year] AGE: 51 y.o. ADMISSION DATE: 03/09/2017 DAYS ADMITTED: LOS: 11 days Todays Date: 03/20/2017 Plan SW discussed this pt with the neurosurgery team reviewing his POC and d/c plan. Pt is alert and medically doing much better, but behaviorally being somewhat challenging for the team (pulling on his monitors and trying to get out of his restraints). Interventions ? Support Pt's sister, Torito was in the room when SW arrived. Pt's sister Mary is also supportive and helping with the care of pt's daughter, Charo (9 y/o). SW notified pt that SW had contacted the state regarding his positive UDS ( amphetamine and benzodiazepine)--pt acted surprised that he was positive. Pt then stated, "I will take them all down before I lose my little girl", and he stated that he will kill himself if he loses his daughter. SW asked 3x during the conversation whether not SW should consult psychology and pt denied need for psych support. SW also notified bedside RN of SW's conversation. ? Info or Referral Pt asking SW for assistance with a therapy dog (because his daughter really wants a dog), assistance with rent deposit money and utility deposit money. According to pt's sister, pt is on a waiting list for HCBS care as well. Pt has a housing voucher; for which SW asked if he needs a letter or anything considering his current medical situation. Pt does not believe that he needs anything. SW to check back in with pt's sister, Mary tomorrow or Saturday. ? Discharge Planning Discharge Planning: OP HD or PD PM&R consult in, pt appropriate, but prefers to go to [facility]. REJI requested that the [facility] please send a referral for their consideration. ? Medication Needs ? Financial ? Legal ? Other Disposition ? Discharge Preparation When ready for discharge, who will be responsible for transporting?: sister Type of Residence: Private residence Patient expects to be discharged to: Rehab facility Was the patient receiving home care services?: No ? Expected Discharge Expected Discharge Date: 03/22/17 ? Discharge Disposition ? Next Level Care Yesenia Stockton, [facility] *[id number] * Procedures (Immed Post or Bedside) - Rylee Arango APRN - 03/19/2017 12:17 PM INTERVENTIONIST Formatting of this note may be different from the original. Neuro Critical Care Transcranial Doppler Ultrasound Report Naren Chaparro [id number] 51 y.o. male Diagnosis: SAH Indication for TCD: Evaluation for cerebral vasospasm Blood pressure 200/88, pulse 73, temperature 37.1 C (98.7 F), height 172.7 cm (68"), weight 103.3 kg (227 lb 11.8 oz), SpO2 97 %. Hgb: 9.3 gm/dl Intake/Output Summary (Last 24 hours) at 03/19/17 1218 Last data filed at 03/19/17 1200 Gross per 24 hour Intake 2269.11 ml Output 4550 ml Net -2280.89 ml Escobar and Moore: 4 Modified Stone: 3 Observations: The following denote maximal velocities recorded for that vessel territory Procedure and Results: A complete transcranial doppler ultrasound examination was performed. Interpretation: Reference Values Lindegaard Ratio Pulsatility Ratio <3: Probability of vasospasm - <15% <0.5: Below normal 3 - 4.5: Probability of vasospasm - 50-75% 0.5 - 1.2: Normal >4.5: Probability of vasospasm - >95% 1.2 - 1.5: Above normal >1.5: Abnormal ATTESTATION I have personally performed the procedure. Procedure time: 25 minutes Results communicated to the neurosurgical team Staff name: Rylee Arango, WELFARE AIDE Date: 03/19/2017 Associated attestation - Derrell Bowers MD - 03/19/2017 1:54 PM INTERVENTIONIST Interval decrease in the MFV of left MCA, with slight increase in MFV of right MCAs. LRL 1.1; RLR 1.2. No sonographic evidence of vasospasm on this study. Derrell Bowers MD 03/19/2017 1:54 PM * Case Mgmt DC Plan - Yesenia Stockton - 03/18/2017 10:44 AM INTERVENTIONIST Case Management Progress Note NAME:Naren Mayfield :[birth year] AGE: 51 y.o. ADMISSION DATE: 03/09/2017 DAYS ADMITTED: LOS: 9 days Todays Date: 03/18/2017 Plan REJI met with the neurosurgery team regarding POC and d/c planning. Pt is no longer intubated, talking some and ambulating minimally as well. Pt has a very complex medical history and ongoing concerns; therefore, will likely remain in the hospital for another several days. Pt expected to need facility placement ( IPR, ideal). Interventions ? Support Pt's sister, Mary, and his sister, Torito; have been very supportive. Pt has a 9 y/o daughter, Charo; who is being cared for by Mary Hernandez's and her oldest daughter (21). Due to pt's positive UDS, REJI has contacted [facility] and filed a report; family aware of SW's report. Pt has been accepted for HUD housing in [place] and was getting ready to move into his home just when he experienced the SAH. SW unsure what the status of his home currently is, but has offered support if letters re:pt's medical situation are needed. ? Info or Referral ? Discharge Planning Discharge Planning: OP HD or PD Rehab consult has been placed. Pt [facility] returning [facility] ( [facility] SW will watch to consult them as pt continues to medically improve. ? Medication Needs ? Financial ? Legal ? Other Disposition ? Discharge Preparation When ready for discharge, who will be responsible for transporting?: sister Type of Residence: Private residence Patient expects to be discharged to: Rehab facility Was the patient receiving home care services?: No ? Expected Discharge Expected Discharge Date: 03/22/17 ? Discharge Disposition ? Next Level Care Yesenia Stockton, [facility] *[id number] * Procedures (Immed Post or Bedside) - Rosie Tanner APRN - 03/18/2017 5: 56 AM INTERVENTIONIST Formatting of this note may be different from the original. Neuro Critical Care Transcranial Doppler Ultrasound Report Naren Chaparro [id number] 51 y.o. male Diagnosis: SAH Indication for TCD: Evaluation for cerebral vasospasm Blood pressure 200/88, pulse 76, temperature 37.4 C (99.3 F), height 172.7 cm (68"), weight 115.9 kg (255 lb 8.2 oz), SpO2 94 %. Hgb: 8.9 gm/dl Intake/Output Summary (Last 24 hours) at 03/18/17 0556 Last data filed at 03/18/17 0500 Gross per 24 hour Intake 1131.8 ml Output 0 ml Net 1131.8 ml Escobar and Moore: 4 Modified Stone: 3 Observations: The following denote maximal velocities recorded for that vessel territory Procedure and Results: A complete transcranial doppler ultrasound examination was performed. Interpretation: Reference Values Lindegaard Ratio Pulsatility Ratio <3: Probability of vasospasm - <15% <0.5: Below normal 3 - 4.5: Probability of vasospasm - 50-75% 0.5 - 1.2: Normal >4.5: Probability of vasospasm - >95% 1.2 - 1.5: Above normal >1.5: Abnormal ATTESTATION I have personally performed the procedure. Procedure time: 35 minutes Results communicated to the neurosurgical team Staff name: Rosie Tanner APRN Date: 03/18/2017 Associated attestation - Derrell Bowers MD - 03/21/2017 6:12 PM INTERVENTIONIST Elevated LR on left side 3.3, however mean flow velocity of L MCA is < 130 cm/ s. Could be an early finding of subsequent vasospasm. Right LR 1.6, normal velocities on right side. Follow up study recommended. Derrell Bowers MD 03/19/2017 1:50 PM * Critical Results - Karen Escalante RN - 03/17/2017 6:01 AM INTERVENTIONIST Critical result or procedure called (document test and value, and read back): PO2 49 Time MD/MARKETING ADMINISTRATIVE ASSISTANT Notified: 0415 MD/MARKETING ADMINISTRATIVE ASSISTANT Name: Rosie Tanner APRN MD/MARKETING ADMINISTRATIVE ASSISTANT Response/Orders Given: Result thought to be in error. Orders given to redraw. * Procedures (Immed Post or Bedside) - Rosie Tanner APRN - 03/17/2017 5: 43 AM INTERVENTIONIST Formatting of this note may be different from the original. Neuro Critical Care Transcranial Doppler Ultrasound Report Naren Mayfield [id number] 51 y.o. male Diagnosis: SAH Indication for TCD: Evaluation for cerebral vasospasm Blood pressure 157/67, pulse 79, temperature (!) 38.1 C (100.5 F), height 172.7 cm (68"), weight 115.9 kg (255 lb 8.2 oz), SpO2 97 %. Hgb: 9.2 gm/dl Intake/Output Summary (Last 24 hours) at 03/17/17 0543 Last data filed at 03/17/17 0000 Gross per 24 hour Intake 1362.1 ml Output 4330 ml Net -2967.9 ml Escobar and Moore: 4 Modified Stone: 3 Observations: The following denote maximal velocities recorded for that vessel territory Procedure and Results: A complete transcranial doppler ultrasound examination was performed. Interpretation: Reference Values Lindegaard Ratio Pulsatility Ratio <3: Probability of vasospasm - <15% <0.5: Below normal 3 - 4.5: Probability of vasospasm - 50-75% 0.5 - 1.2: Normal >4.5: Probability of vasospasm - >95% 1.2 - 1.5: Above normal >1.5: Abnormal ATTESTATION I have personally performed the procedure. Procedure time: 35 minutes Results communicated to the neurosurgical team Staff name: Rosie GutierrezROLO pereyra Date: 03/17/2017 Associated attestation - Deborah Lynn MD - 03/26/2017 2:57 PM INTERVENTIONIST Formatting of this note may be different from the original. ATTESTATION: No evidence of vasospasm on this study. I have interpreted the results. Staff name: Deborah Lynn MD Date: 03/26/2017 * Care Plan - Mary Amezquita RN - 03/14/2017 6:40 PM INTERVENTIONIST Problem: Infection, Risk of, Central Venous Catheter-Associated Bloodstream Infection Goal: Absence of CVC Associated Bloodstream infection Outcome: Goal Achieved Date Met: 03/14/17 Pt no longer has central line * Case Mgmt DC Plan - Mahin Yesenia - 03/14/2017 10:46 AM INTERVENTIONIST Case Management Progress Note NAME:Naren Mayfield :[birth year] AGE: 51 y.o. ADMISSION DATE: 03/09/2017 DAYS ADMITTED: LOS: 5 days Todays Date: 03/14/2017 Plan SW met with the neurosurgery team regarding POC and d/c planning. Pt is continuing his acute recovery following surgery. He is anticipated to be here for several more days. Interventions ? Support Pt's sister, Mary, is in the room with him. His other sister, Torito, is planning to come on Saturday to stay the weekend with him. Pt has a 9 year old daughter; Charo; who is being cared for by Mary and her s/o; Torito, and her eldest cousin (Mary's 21 year old daughter). ? Info or Referral SW did send a CFS report d/t positive UDS. Family aware and prepared to discuss this with the state. ? Discharge Planning Discharge Planning: OP HD or PD Pt anticipated to need inpt; however whether or not pt will need SNF or IPR is unknown at this time. Rehab consult has not yet been made. SW will be watchful for any improvement in pt's mobility to warrant a consult. ? Medication Needs ? Financial ? 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 Pt's sister, Mary, self disclosed that she is also listed as a felon with the state--not drug use related. ? Other Disposition ? Discharge Preparation ? Expected Discharge Expected Discharge Date: 03/22/17 ? Discharge Disposition ? Next Level Care Yesenia Stockton, [facility] *[id number] * Procedures (Immed Post or Bedside) - Elaine Nicholson APRN - 03/14/2017 6: 46 AM INTERVENTIONIST Formatting of this note may be different from the original. Neuro Critical Care Transcranial Doppler Ultrasound Report Naren Mayfield [id number] 51 y.o. male Diagnosis: SAH Indication for TCD: Evaluation for cerebral vasospasm Blood pressure 115/50, pulse 74, temperature 37.1 C (98.7 F), height 172.7 cm (68"), weight 116.2 kg (256 lb 2.8 oz), SpO2 99 %. Hgb: 8.2gm/dl Intake/Output Summary (Last 24 hours) at 03/14/17 0646 Last data filed at 03/14/17 0600 Gross per 24 hour Intake 3192.31 ml Output 12 ml Net 3180.31 ml Escobar and Moore: 4 Modified Stone: 3 Observations: The following denote maximal velocities recorded for that vessel territory Procedure and Results: A complete transcranial doppler ultrasound examination was attempted. Unable to obtain Right measurements 2/2 EEG leads and bandages. Interpretation: Reference Values Lindegaard Ratio Pulsatility Ratio <3: Probability of vasospasm - <15% <0.5: Below normal 3 - 4.5: Probability of vasospasm - 50-75% 0.5 - 1.2: Normal >4.5: Probability of vasospasm - >95% 1.2 - 1.5: Above normal >1.5: Abnormal ATTESTATION I have personally performed the procedure. Procedure time: 15 minutes Results communicated to the neurosurgical team Staff name: Elaine Nicholson APRN Date: 03/14/2017 Associated attestation - Deborah Lynn MD - 03/26/2017 2:54 PM INTERVENTIONIST Formatting of this note may be different from the original. ATTESTATION: Right TCDs not able to be obtained. Left sided study shows no evidence of vasospasm. I have interpreted the results. Staff name: Deborah Lynn MD Date: 03/26/2017 * Care Coordination-Inpatient - Vernell Corbin MD - 03/13/2017 6:56 PM INTERVENTIONIST BRIEF VEEG NOTE First 30 min of EEG reviewed. Right PLEDs are seen. Will continue to monitor. Vernell Corbin MD Seafood Process Worker of Neurology [facility] Ep[facility] * Case Mgmt DC Plan - Yesenia Stockton - 03/13/2017 2:28 PM INTERVENTIONIST Case Management Progress Note NAME:Naren Mayfield :[birth year] AGE: 51 y.o. ADMISSION DATE: 03/09/2017 DAYS ADMITTED: LOS: 4 days Todays Date: 03/13/2017 Plan SW met with the neurosurgery and neuro-icu team regarding pt's POC and d/c plan. SW was notified that pt was positive for amphetamine and benzos; according to the UDS completed upon admission. Interventions ? Support SW talked with pt's sister, Mary, regarding pt's positive UDS, and as a mandated nib adjuster, SW would need to contact the state. She was very upset to hear this about her brother, but understood that SW would be calling in a report. She admitted to him having a history of methamphetamine use, but that he was clean for 2 years in order to get his daughter back in his custody. Furthermore , she had opened her home to Mr. Mayfield and his daughter so that they can re- start their live, after he regained custody. She stated that there were only two times she suspected that he may have been using, but that she was never able to prove it. Daughter is reportedly safe, with her aunt, Torito. Mary's 14 year old son is also with the aunt Torito. SW did call [facility] to report the positive drug screen. Incident: [id number] ? Info or Referral ? Discharge Planning Discharge Planning: OP HD or PD D/C planning is too early to determine. Pt will likely require IPR vs SNF; SW will continue to follow with the neurosurgery team and therapies recommendations. ? Medication Needs ? Financial ? Legal ? Other Disposition ? Discharge Preparation ? Expected Discharge Expected Discharge Date: 03/22/17 ? Discharge Disposition ? Next Level Care Yesenia Stockton LMSW *[id number] * Procedures (Immed Post or Bedside) - Luciano WeemscarlojessyROLO - 03/13/2017 6: 16 AM INTERVENTIONIST Formatting of this note may be different from the original. [facility] Neuroscience ICU Transcranial Doppler Ultrasound Report Naren Mayfield [id number] 51 y.o. male Diagnosis:SAH Indication for TCD: evaluation for cerebral vasospasm Blood pressure 115/50, pulse 77, temperature 37.7 C (99.9 F), height 172.7 cm (68"), weight 108.8 kg (239 lb 13.8 oz), SpO2 96 %. Hb: gm/dl Intake/Output Summary (Last 24 hours) at 03/13/17 0616 Last data filed at 03/13/17 0600 Gross per 24 hour Intake 2033.79 ml Output 2834 ml Net -800.21 ml Escobar and Moore: Modified Stone grade: Observations: Following denote maximal velocities recorded for that vessel territory Procedure and Results: A complete transcranial doppler ultrasound examination was performed. Reference values: Lindegaard ratio : <3 : Low probability of vasospasm ( less than 15%) 3-4.5: Probability of vasospasm 50-75% >4.5: High probability (>95%) Pulsatility ratio: Normal : 0.5 to 1.2 Below normal : < 0.5 Above normal : 1.2 to 1.5 Abnormal: > 1.5 ATTESTATION I have personally performed the procedure. Procedure time: minutes Results communicated to the neurosurgical team Staff name: Phyllisjessy ROLO Weems Date: 03/13/2017 Associated attestation - Deborah Lynn MD - 03/14/2017 1:39 PM INTERVENTIONIST Formatting of this note may be different from the original. ATTESTATION: Increased left LR concerning for vasospasm. No evidence of right-sided vasospasm on this study. I have interpreted the results. Staff name: Deborah Lynn MD Date: 03/14/2017 * Case Mgmt DC Plan - Yesenia Stockton - 03/12/2017 4:33 PM INTERVENTIONIST Case Management Progress Note NAME:Naren Mayfield :[birth year] AGE: 51 y.o. ADMISSION DATE: 03/09/2017 DAYS ADMITTED: LOS: 3 days Todays Date: 03/12/2017 Plan REJI met with the neuro-surgery team regarding pt's POC and d/c planning. Pt anticipated to stay in the hospital for the next two weeks or so for acute monitoring. Interventions ? Support Pt's sister is in the room staying with pt. Pt has a 9 year old daughter at home; being watched by her cousin (pt's sister's oldest daughter--who is in college). Pt's sister (Mary) also has a son (14) who is being watched by her oldest daughter. Pt is one of 8 children; 6 of whom live in the [facility] area. ? Info or Referral none at this time ? Discharge Planning Discharge Planning: OP HD or PD SW was asked to assist with faxing a letter to pt's place of work excusing her absence. SW also asked to draft a letter excusing pt's daughter from school ( at least once weekly) to visit her father while he's in the hospital for the next 2 weeks. REJI faxed the work letter and will provide the school letter directly to pt's sister to submit. ? Medication Needs ? Financial ? Legal ? Other Disposition ? Discharge Preparation ? Expected Discharge Expected Discharge Date: 03/22/17 ? Discharge Disposition ? Next Level Care Yesenia Stockton, [facility] *[id number] * Case Mgmt DC Plan - Diana Scott RN - 03/12/2017 2:08 PM INTERVENTIONIST Case Management Progress Note NAME:Naren Mayfield :[birth year] AGE: 51 y.o. ADMISSION DATE: 03/09/2017 DAYS ADMITTED: LOS: 3 days Todays Date: 03/12/2017 Plan Ongoing DC planning - Outpatient dialysis Interventions ? Support ? Info or Referral ? Discharge Planning Discharge Planning: OP HD or PD * NCM confirmed with dialysis center that patient obtains his dialysis T-Th-Sat at [facility] [place], [place], ph [phone] / fax [phone]. * This center is not part of [employer]; NCM sent [facility] referral, facesheet, H&P, renal consult, and dialysis report as of 03/12/17 to [facility] via [employer] fax function. * NCM will update [facility] as needed as DC planning evolves; patient may require an inpatient setting at discharge. ? Medication Needs ? Financial ? Legal ? Other Disposition ? Discharge Preparation ? Expected Discharge Expected Discharge Date: 03/22/17 ? Discharge Disposition ? Next Level Care THANG Mack, pilates instructor Nurse Abalone Diver [phone] * Procedures (Immed Post or Bedside) - Shannen Wilson APRN-NP - 03/12/2017 1: 10 AM INTERVENTIONIST Formatting of this note may be different from the original. Neuro Critical Care Transcranial Doppler Ultrasound Report Naren Mayfield [id number] 51 y.o. male Diagnosis: SAH Indication for TCD: Evaluation for cerebral vasospasm Blood pressure 123/56, pulse 64, temperature 37.5 C (99.5 F), height 172.7 cm (68"), weight 114.8 kg (253 lb), SpO2 98 %. Hgb: 7.5 gm/dl Intake/Output Summary (Last 24 hours) at 03/12/17 0110 Last data filed at 03/12/17 0000 Gross per 24 hour Intake 2188.32 ml Output 4395 ml Net -2206.68 ml Escobar and Moore: 4 Modified Stone: 3 Observations: The following denote maximal velocities recorded for that vessel territory Procedure and Results: A complete transcranial doppler ultrasound examination was performed. Reference Values Lindegaard Ratio Pulsatility Ratio <3: Probability of vasospasm - <15% <0.5: Below normal 3 - 4.5: Probability of vasospasm - 50-75% 0.5 - 1.2: Normal >4.5: Probability of vasospasm - >95% 1.2 - 1.5: Above normal >1.5: Abnormal ATTESTATION I have personally performed the procedure. Procedure time: 20 minutes Results communicated to the neurosurgical team Staff name: Shannen Wilson APRN-JONI Date: 03/12/2017 Associated attestation - eDborah Lynn MD - 03/12/2017 11:55 AM INTERVENTIONIST Formatting of this note may be different from the original. ATTESTATION: No evidence of vasospasm on this study. I have interpreted the results. Staff name: Deborah Lynn MD Date: 03/12/2017 * Case Mgmt DC Plan - Vandana Arce - 03/11/2017 2:38 PM INTERVENTIONIST Formatting of this note may be different from the original. Case Management Admission Assessment NAME:Naren Mayfield :1965 AGE: 51 y.o. ADMISSION DATE: 03/09/2017 DAYS ADMITTED: LOS: 2 days Todays Date: 03/11/2017 Source of Information: Patient's nieceSim Plan Plan: CM Assessment, Assist PRN with SW/NCM Services Covering SW reviewed EMR for plan of care update and met with pt's niece, Sim Gan, at the bedside to obtain as much information as possible. Pt's primary support (sister, Laura Mayfield) was not present at time of assessment, and SW unable to reach sister by phone. Final discharge disposition undetermined at this time, but per discussion with medical team, anticipate pt will remain inpatient for at least another 14 days. Prior to admit, pt reportedly attending T// HD at [facility], and was primarily transporting himself to/from HD appts. Emergency Contact No emergency contact information on file. Primary family support is pt's sister, Laura Mayfield -cell. Pt currently resides with his sister at [address] [place] [address]. DPOA None on file Transportation Does the patient need discharge transport arranged?: No Transportation Name, Phone and Availability #1: Sister, Laura Mayfield Does the patient use Medicaid Transportation?: No Expected Discharge Expected Discharge Date: 03/22/17 Living Situation Prior to Admission ? Living Arrangements Type of Residence: Home, independent Living Arrangements: Family members, Children (Pt lives with his sister, Laura Mayfield. Pt's 9 y/o daughter also resides in the home) How many levels in the residence?: 1 (Pt's sister's home has 3 entry steps, but once inside pt can reside on a single level) Can patient live on one level if needed?: Yes Support Systems: Other family Assistance Needed: No Home Care Services: No Per pt's niece, Sim Gan (Sim's mother is pt's sister/primary support, Laura Mayfield), the address on pt's Facesheet is pt's permanent address, but pt has been staying with his sister, Laura, at the above listed address in [place], [place]. Per Sim, pt is primarily independent, was driving to/from HD appointments, and only occasionally using a cane. Pt reportedly has 5 children , including a 9 y/o daughter that resides with pt at his sister Laura's home. ? Level of Function Prior level of function: Independent (Pt reportedly primarily independent, some transportation assistance to HD appointments if he is not feeling well and occassional use of a cane if feeling weak. ) ? Cognitive Abilities Cognitive Abilities: Continue to Assess, Unable to participate in decision making (Intubated/vented at time of SW assessment) Financial Resources ? Coverage Primary Insurance: Medicare (Part B ) Secondary Insurance: Medicaid ([employer] [place] Medicaid) Additional Coverage: RX ? Source of Income Source Of Income: SSDI ? Financial Assistance Needed? None identified at time of assessment Current/Previous Services ? PCP No primary care provider on file. ? DME DME at home: Single Point Cane ? Home Health Home Health: No ? HD or PD Undergoing hemodialysis or peritoneal dialysis: Yes Hemodialysis or Peritoneal Dialysis: Hemodialysis Location: [facility] attending: Saturday, , Saturday Does patient sit for treatment?: Yes Transportation to treatment via: Other (Pt typically drives self to HD appts. Family occassionally assists if pt is not feeling well enough to drive) ? Tube/Enteral Feeds Receive tube/enteral feeds: No ? Infusion Receive infusions: No ? Private Duty Private duty help used: No ? HCBS Home and community based services: No ? Que White Que White: No ? Hospice Hospice: No ? Outpatient Therapy PT: No OT: No GAMEWELL OPERATOR: No ? SNF/NH SNF: No NH: No ? IPR IPR: No ? LTACH LTACH: No ? Acute Hospital Stay Acute Hospital Stay: In the past Was patient's stay within the last 30 days?: No Psychosocial Needs ? Mental Health Unable to assess due to medical status, will require f/u ? Substance History -- Unable to assess due to medical status, will require f/u History Smoking Status Not on file Smokeless Tobacco Not on file History Alcohol use Not on file History Drug Use Not on file ? Abuse/Sexual Assault Unable to assess with pt due to medical status Radha Arce LMSW, [facility] [phone] * Anesthesia Post Op Day 1 - Carmen Novak SRNA - 03/11/2017 9:57 AM INTERVENTIONIST Formatting of this note may be different from the original. Anesthesia Follow-Up Evaluation: Post-Procedure Day One Name: Naren Mayfield : 1965 Age: 51 y.o. 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 - Neuromonitoring, aneurysm clips, microscope, ICG, radiolucent cobden Physical Assessment Height: 172.7 cm (68") Weight: 115.1 kg (253 lb 12 oz) Vital Signs (Last Filed in 24 hours) BP: 151/73 (03/10 1830) Temp: 37 C (98.6 F) (03/11 0400) Pulse: 77 (03/11 819) Respirations: 27 PER MINUTE (03/11 819) SpO2: 98 % (03/11 819) O2 Delivery: Endotracheal Tube (Oral) (03/11 600) SpO2 Pulse: 76 (03/11 600) Patient History Allergies No Known Allergies Medications Scheduled Meds: ceFAZolin (ANCEF) IVP 1 g 1 g Intravenous Q24H* docusate (COLACE) oral solution 100 mg 100 mg Feeding Tube BID famotidine (PEPCID) injection 20 mg 20 mg Intravenous QHS levETIRAcetam in NaCl (iso-os) (KEPPRA) IVPB (premade) 500 mg 100 mL 500 mg Intravenous BID milk of magnesia (CONC) oral suspension 10 mL 10 mL Feeding Tube QDAY niMODipine (NYMALIZE) 3 mg/ mL solution 60 mg 60 mg Per OG Tube Q4H senna/docusate (SENOKOT-S) solution 10 mL 10 mL Feeding Tube BID Continuous Infusions: dexmedetomidine (PRECEDEX) 400 mcg/NS 100 ml IV drip Stopped (03/10/17 0800 ) niCARdipine (cardENE) 20 mg/NS 200 mL infusion (std conc)(premade) Stopped (03/11/17 0940) propofol (DIPRIVAN) 10 mg/mL IV infusion 50 mcg/kg/min (03/11/17 8768) PRN and Respiratory Meds:albuterol 0.5% Q4H PRN, fentaNYL citrate PF Q1H PRN, fentaNYL citrate PF Intra-procedure Med, hydrALAZINE Q6H PRN, ipratropium bromide Q4H PRN, labetalol (NORMODYNE; TRANDATE) injection Q15 MIN PRN, ondansetron Q6H PRN, sodium chloride 0.9% (NS) IP Dialysis PRN, sodium chloride 0.9% (NS) IP Dialysis PRN, sodium chloride 0.9% (NS) IP Dialysis PRN Diagnostic Tests Hematology: Lab Results Component Value Date HGB 7.5 03/11/2017 HCT 22.6 03/11/2017 PLTCT 159 03/11/2017 WBC 8.2 03/11/2017 NEUT 89 03/11/2017 ANC 7.20 03/11/2017 ALC 0.30 03/11/2017 SUZI 7 03/11/2017 AMC 0.60 03/11/2017 EOSA 0 03/11/2017 ABC 0.00 03/11/2017 MCV 91.1 03/11/2017 MCH 30.2 03/11/2017 MCHC 33.2 03/11/2017 MPV 8.5 03/11/2017 RDW 16.3 03/11/2017 General Chemistry: Lab Results Component Value Date NA 135 03/11/2017 K 4.0 03/11/2017 CL 101 03/11/2017 CO2 20 03/11/2017 GAP 14 03/11/2017 BUN 45 03/11/2017 CR 8.60 03/11/2017 GLU 100 03/11/2017 CA 7.6 03/11/2017 ALBUMIN 3.7 03/09/2017 OBSCA 1.05 03/11/2017 MG 2.1 03/11/2017 TOTBILI 0.7 03/09/2017 PO4 9.1 03/11/2017 Coagulation: Lab Results Component Value Date PTT 29.8 03/10/2017 INR 1.3 03/10/2017 Follow-Up Assessment Patient location during evaluation: ICU Anesthetic Complications: Anesthetic complications: The patient did not experience any anesthestic complications. Pain: Pain control: unable to assess. Level of Consciousness: Post-procedure mental status: sedated with propofol. Hydration:acceptable Airway Patency: patent Respiratory Status: ETT, intubated and ventilator (VC) Cardiovascular Status:acceptable and hemodynamically stable Regional/Neuroaxial: Comments: On CRRT. Radial and femoral arterial lines in place. Current ABP varying between 140/150 systolic and 60/65 diastolic. * Anesthesia Post Op Day 1 - Carmen Novak, OMI - 03/11/2017 9:53 AM INTERVENTIONIST Formatting of this note may be different from the original. Anesthesia Follow-Up Evaluation: Post-Procedure Day One Name: Naren Mayfield : 1965 Age: 51 y.o. Sex: male Procedure Date: 03/10/2017 Procedure: Procedure(s): REPAIR ANEURYSM CRANIOTOMY Physical Assessment Height: 172.7 cm (68") Weight: 115.1 kg (253 lb 12 oz) Vital Signs (Last Filed in 24 hours) BP: 151/73 (03/10 1830) Temp: 37 C (98.6 F) (03/11 0400) Pulse: 77 (03/11 0819) Respirations: 27 PER MINUTE (03/11 0819) SpO2: 98 % (03/11 08) O2 Delivery: Endotracheal Tube (Oral) (03/11 600) SpO2 Pulse: 76 (03/11 0600) Patient History Allergies No Known Allergies Medications Scheduled Meds: ceFAZolin (ANCEF) IVP 1 g 1 g Intravenous Q24H* docusate (COLACE) oral solution 100 mg 100 mg Feeding Tube BID famotidine (PEPCID) injection 20 mg 20 mg Intravenous QHS levETIRAcetam in NaCl (iso-os) (KEPPRA) IVPB (premade) 500 mg 100 mL 500 mg Intravenous BID milk of magnesia (CONC) oral suspension 10 mL 10 mL Feeding Tube QDAY niMODipine (NYMALIZE) 3 mg/ mL solution 60 mg 60 mg Per OG Tube Q4H senna/docusate (SENOKOT-S) solution 10 mL 10 mL Feeding Tube BID Continuous Infusions: dexmedetomidine (PRECEDEX) 400 mcg/NS 100 ml IV drip Stopped (03/10/17 0800 ) niCARdipine (cardENE) 20 mg/NS 200 mL infusion (std conc)(premade) Stopped (03/11/17 0940) propofol (DIPRIVAN) 10 mg/mL IV infusion 50 mcg/kg/min (03/11/17 0822) PRN and Respiratory Meds:albuterol 0.5% Q4H PRN, fentaNYL citrate PF Q1H PRN, fentaNYL citrate PF Intra-procedure Med, hydrALAZINE Q6H PRN, ipratropium bromide Q4H PRN, labetalol (NORMODYNE; TRANDATE) injection Q15 MIN PRN, ondansetron Q6H PRN, sodium chloride 0.9% (NS) IP Dialysis PRN, sodium chloride 0.9% (NS) IP Dialysis PRN, sodium chloride 0.9% (NS) IP Dialysis PRN Diagnostic Tests Hematology: Lab Results Component Value Date HGB 7.5 03/11/2017 HCT 22.6 03/11/2017 PLTCT 159 03/11/2017 WBC 8.2 03/11/2017 NEUT 89 03/11/2017 ANC 7.20 03/11/2017 ALC 0.30 03/11/2017 SUZI 7 03/11/2017 AMC 0.60 03/11/2017 EOSA 0 03/11/2017 ABC 0.00 03/11/2017 MCV 91.1 03/11/2017 MCH 30.2 03/11/2017 MCHC 33.2 03/11/2017 MPV 8.5 03/11/2017 RDW 16.3 03/11/2017 General Chemistry: Lab Results Component Value Date NA 135 03/11/2017 K 4.0 03/11/2017 CL 101 03/11/2017 CO2 20 03/11/2017 GAP 14 03/11/2017 BUN 45 03/11/2017 CR 8.60 03/11/2017 GLU 100 03/11/2017 CA 7.6 03/11/2017 ALBUMIN 3.7 03/09/2017 OBSCA 1.05 03/11/2017 MG 2.1 03/11/2017 TOTBILI 0.7 03/09/2017 PO4 9.1 03/11/2017 Coagulation: Lab Results Component Value Date PTT 29.8 03/10/2017 INR 1.3 03/10/2017 Follow-Up Assessment Patient location during evaluation: ICU Anesthetic Complications: Anesthetic complications: The patient did not experience any anesthestic complications. Pain: Pain control: unable to assess. Level of Consciousness: Post-procedure mental status: sedated with propofol. Hydration:acceptable Airway Patency: patent Respiratory Status: ETT, intubated and ventilator (VC) Cardiovascular Status:acceptable and hemodynamically stable Regional/Neuroaxial: * Procedures (Immed Post or Bedside) - Lyly Rogel MD - 03/09/2017 5:54 PM INTERVENTIONIST Neuro Interventional Immediate Post Procedure Note Date: 03/09/2017 Attending Physician: Lyly Rogel MD Php Programmer(s): Ankita Lopez Cerebral Angiogram Time out performed: Consent obtained, correct patient verified, correct procedure verified, correct site verified, patient marked as necessary. 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 Will go for clipping in am. Estimated Blood Loss: Minimal Specimen(s) Removed/Disposition: None Complications: None Comments: D/w Dr. Bee who will clip in am Closure Device: Sheath left in place Recommended Blood Pressure Parameters: SBP <140 mmHg Neuro Exam: Intubated, sedated Lyly Rogel MD Pager: [phone] * Procedures (Immed Post or Bedside) - Rosie Tanner APRN - 03/09/2017 4: 29 PM INTERVENTIONIST Formatting of this note may be different from the original. Procedure Note - Arterial catheter insertion Indication : Hemodynamic monitoring, frequent blood draws Site: Rt radial Prep: Chloraprep Catheter: 20 gauge Local anesthesia: 2% lidocaine, 0.5 ml local skin infiltration Attempts: # 1 Waveform: Adequate dampened waveform Procedure time: 20 Minutes Pt tolerated procedure well, no complications. Extremity pink and warm after completed. ATTESTATION Date of Service: 03/09/2017 I personally performed the procedure myself with supervision of Dr. Lopes. Staff name: Rosie Tanner APRN Date: 03/09/2017 in this encounter Plan of Treatment Name Priority Associated Diagnoses Date/Time DELIVER & TRANSFUSE RED BLOOD CELLS STAT 03/10/2017 10:29 AM INTERVENTIONIST (INTRAOP ONLY) IR ARTERIOGRAM NEURO Routine 03/10/2017 9:34 AM INTERVENTIONIST TRANSFUSE RBC'S NON-BLEEDING PT Routine 03/13/2017 1:10 PM INTERVENTIONIST TRANSFUSE RBC'S NON-BLEEDING PT Routine 03/13/2017 1:10 PM INTERVENTIONIST CULTURE-FUNGAL,OTHER Routine 03/14/2017 4:30 PM INTERVENTIONIST CULTURE-TB (AFB) Routine 03/14/2017 4:30 PM INTERVENTIONIST Name Priority Associated Diagnoses Order Schedule IR ARTERIOGRAM NEURO Routine ONE TIME for 1 Occurrences starting 03/11/2017 until 03/11/2017 as of this encounter Procedures Procedure Name Priority Date/Time Associated Diagnosis Comments CONSULT IV THERAPY TEAM Routine 03/19/2017 9:43 AM INTERVENTIONIST ECG-SCAN 03/12/2017 Results for this 10:05 AM INTERVENTIONIST procedure are in the results section. ECG-SCAN 03/12/2017 Results for this 10:05 AM INTERVENTIONIST procedure are in the results section. ECG-SCAN 03/12/2017 Results for this 10:05 AM INTERVENTIONIST procedure are in the results section. ECG-SCAN 03/12/2017 Results for this 10:05 AM INTERVENTIONIST procedure are in the results section. REPAIR ANEURYSM 03/10/2017 Brain aneurysm CRANIOTOMY 8:15 PM INTERVENTIONIST Rt pterional craniotomy 03/10/2017 Ruptured cerebral for clipping of MCA 8:00 AM INTERVENTIONIST aneurysm (HCC) aneurysm in this encounter Results * POC GLUCOSE (03/26/2017 1:47 PM) Component Value Ref Range Glucose, POC 103 (H) 70 - 100 MG/DL Specimen Performing Laboratory MA[facility] [address] [place] [address] * HEMODIALYSIS INPATIENT (03/26/2017 1:10 PM) Narrative Dima Glasgow RN 03/26/20171:10 PM 0848: Consent confirmed, assessment complete and charted. Patient's LFA AV Fistula was accessed with two #15 fistula needles upon the first attempt. Treatment was started at this time. 1247: Blood returned, needles de-cannulated, bleeding stopped in <10min. Treatment completed at this time. * HEMODIALYSIS DATE (03/26/2017 1:10 PM) Narrative Dima Glasgow RN 03/26/20171:10 PM 0848: Consent confirmed, assessment complete and charted. Patient's LFA AV Fistula was accessed with two #15 fistula needles upon the first attempt. Treatment was started at this time. 1247: Blood returned, needles de-cannulated, bleeding stopped in <10min. Treatment completed at this time. * CBC AND DIFF (03/26/2017 4:20 AM) Component Value Ref Range White Blood Cells [...] Performing Laboratory Blood [facility] [address] [place] [address] * BASIC METABOLIC PANEL (03/26/2017 4:20 AM) Component Value Ref Range Sodium 134 (L) [...] Pharmacist for questions. Specimen Performing Laboratory Blood [facility] [address] [place] [address] * POC GLUCOSE (03/26/2017 3:24 AM) Component Value Ref Range Glucose, POC 114 (H) 70 - 100 MG/DL Specimen Performing Laboratory [facility] [address] [place], [place] [id number] * POC GLUCOSE (03/25/2017 8:52 PM) Component Value Ref Range Glucose, POC 160 (H) 70 - 100 MG/DL Specimen Performing Laboratory [facility] [address] [place] [address] * POC GLUCOSE (03/25/2017 5:13 PM) Component Value Ref Range Glucose, POC 135 (H) 70 - 100 MG/DL Specimen Performing Laboratory [facility] [address] [place] [address] * POC GLUCOSE (03/25/2017 11:59 AM) Component Value Ref Range Glucose, POC 103 (H) 70 - 100 MG/DL Specimen Performing Laboratory [facility] [address] [place] [address] * POC GLUCOSE (03/25/2017 7:30 AM) Component Value Ref Range Glucose, POC 85 70 - 100 MG/DL Specimen Performing Laboratory [facility] [address] [place] [address] * CBC AND DIFF (03/25/2017 4:27 AM) Component Value Ref Range White Blood Cells 7.3 4.5 - 11.0 K/UL RBC 3.05 (L) 4.4 - 5.5 M/UL Hemoglobin 9.3 (L) 13.5 - 16.5 GM/DL Hematocrit 27.4 (L) 40 - 50 % MCV 89.7 80 - 100 FL MCH 30.4 26 - 34 PG MCHC 33.9 32.0 - 36.0 G/DL RDW 14.9 11 - 15 % Platelet Count 228 150 - 400 K/UL MPV 8.2 7 - 11 FL Neutrophils 80 (H) 41 - 77 % Lymphocytes 7 (L) 24 - 44 % Monocytes 9 4 - 12 % Eosinophils 3 0 - 5 % Basophils 1 0 - 2 % Absolute Neutrophil Count 6.00 1.8 - 7.0 K/UL Absolute Lymph Count 0.50 (L) 1.0 - 4.8 K/UL Absolute Monocyte Count 0.60 0 - 0.80 K/UL Absolute Eosinophil Count 0.20 0 - 0.45 K/UL Absolute Basophil Count 0.00 0 - 0.20 K/UL Specimen Performing Laboratory Blood [facility] [address] [place] [address] * BASIC METABOLIC PANEL (03/25/2017 4:27 AM) Component Value Ref Range Sodium 136 (L) 137 - 147 MMOL/L Potassium 4.7 3.5 - 5.1 MMOL/L Chloride 96 (L) 98 - 110 MMOL/L CO2 17 (L) 21 - 30 MMOL/L Anion Gap 23 (H) 3 - 12 Glucose 91 70 - 100 MG/DL Blood Urea Nitrogen 66 (H) 7 - 25 MG/DL Creatinine 8.73 (H) 0.4 - 1.24 MG/DL Calcium 10.5 8.5 - 10.6 MG/DL eGFR Non 7 (L) >60 mL/min Comment: The eGFR is not validated for use in drug dosing adjustments. Continue to use estimated creatinine clearance per dosing reference text. Please contact the Clinical Pharmacist for questions. eGFR 8 (L) >60 mL/min Comment: The eGFR is not validated for use in drug dosing adjustments. Continue to use estimated creatinine clearance per dosing reference text. Please contact the Clinical Pharmacist for questions. Specimen Performing Laboratory [facility] [address] [place] [address] * POC GLUCOSE (03/25/2017 1:51 AM) Component Value Ref Range Glucose, POC 90 70 - 100 MG/DL Specimen Performing Laboratory [facility] [address] [place] [address] * POC GLUCOSE (03/24/2017 8:52 PM) Component Value Ref Range Glucose, POC 160 (H) 70 - 100 MG/DL Specimen Performing Laboratory [facility] [address] [place] [address] * POC GLUCOSE (03/24/2017 4:55 PM) Component Value Ref Range Glucose, POC 105 (H) 70 - 100 MG/DL Specimen Performing Laboratory [facility] [address] [place] [address] * POC GLUCOSE (03/24/2017 11:42 AM) Component Value Ref Range Glucose, POC 158 (H) 70 - 100 MG/DL Specimen Performing Laboratory [facility] [address] [place] [address] * POC GLUCOSE (03/24/2017 7:52 AM) Component Value Ref Range Glucose, POC 102 (H) 70 - 100 MG/DL Specimen Performing Laboratory [facility] [address] [place] [address] * BASIC METABOLIC PANEL (03/24/2017 4:13 AM) Component Value Ref Range Sodium 137 137 - 147 MMOL/L Potassium 4.6 3.5 - 5.1 MMOL/L Chloride 97 (L) 98 - 110 MMOL/L CO2 19 (L) 21 - 30 MMOL/L Anion Gap 21 (H) 3 - 12 Glucose 94 70 - 100 MG/DL Blood Urea Nitrogen 49 (H) 7 - 25 MG/DL Creatinine 6.39 (H) 0.4 - 1.24 MG/DL Calcium 10.1 8.5 - 10.6 MG/DL eGFR Non 9 (L) >60 mL/min Comment: The eGFR is not validated for use in drug dosing adjustments. Continue to use estimated creatinine clearance per dosing reference text. Please contact the Clinical Pharmacist for questions. eGFR 11 (L) >60 mL/min Comment: The eGFR is not validated for use in drug dosing adjustments. Continue to use estimated creatinine clearance per dosing reference text. Please contact the Clinical Pharmacist for questions. Specimen Performing Laboratory Blood [facility] [address] [place] [address] * PHOSPHORUS (03/24/2017 4:13 AM) Component Value Ref Range Phosphorus 6.5 (H) 2.0 - 4.0 MG/DL Specimen Performing Laboratory Blood [facility] [address] [place] [address] * CBC AND DIFF (03/24/2017 4:13 AM) Component Value Ref Range White Blood Cells 7.8 4.5 - 11.0 K/UL RBC 3.25 (L) 4.4 - 5.5 M/UL Hemoglobin 10.0 (L) 13.5 - 16.5 GM/DL Hematocrit 29.1 (L) 40 - 50 % MCV 89.4 80 - 100 FL MCH 30.7 26 - 34 PG MCHC 34.3 32.0 - 36.0 G/DL RDW 14.7 11 - 15 % Platelet Count 217 150 - 400 K/UL MPV 8.0 7 - 11 FL Neutrophils 81 (H) 41 - 77 % Lymphocytes 7 (L) 24 - 44 % Monocytes 9 4 - 12 % Eosinophils 3 0 - 5 % Basophils 0 0 - 2 % Absolute Neutrophil Count 6.30 1.8 - 7.0 K/UL Absolute Lymph Count 0.50 (L) 1.0 - 4.8 K/UL Absolute Monocyte Count 0.70 0 - 0.80 K/UL Absolute Eosinophil Count 0.20 0 - 0.45 K/UL Absolute Basophil Count 0.00 0 - 0.20 K/UL Specimen Performing Laboratory [facility] [address] [place] [address] * POC GLUCOSE (03/24/2017 3:55 AM) Component Value Ref Range Glucose, POC 97 70 - 100 MG/DL Specimen Performing Laboratory [facility] [address] [place] [address] * POC GLUCOSE (03/23/2017 9:09 PM) Component Value Ref Range Glucose, POC 143 (H) 70 - 100 MG/DL Specimen Performing Laboratory [facility] [address] [place] [address] * POC GLUCOSE (03/23/2017 5:37 PM) Component Value Ref Range Glucose, POC 134 (H) 70 - 100 MG/DL Specimen Performing Laboratory [facility] [address] [place] [address] * HEMODIALYSIS INPATIENT (03/23/2017 3:24 PM) Narrative Dharmesh Navarro RN 03/23/20173:24 PM Arrived at patient room C [facility] and treatment started at 1040 am. Vital signs stable. Patient tolerating treatment well. Treatment complete at 1444 pm. Vital signs stable. Comins removed from L AV fistula and site healed. Report given to unit nurse. Left patient in room C [facility] in stable condition. * HEMODIALYSIS DATE (03/23/2017 3:24 PM) Rose Navarro RN 03/23/20173:24 PM Arrived at patient room C [facility] and treatment started at 1040 am. Vital signs stable. Patient tolerating treatment well. Treatment complete at 1444 pm. Vital signs stable. Comins removed from L AV fistula and site healed. Report given to unit nurse. Left patient in room C [facility] in stable condition. * POC GLUCOSE (03/23/2017 1:10 PM) Component Value Ref Range Glucose, POC 146 (H) 70 - 100 MG/DL Specimen Performing Laboratory [facility] [address] [place] [address] * POC GLUCOSE (03/23/2017 8:13 AM) Component Value Ref Range Glucose, POC 105 (H) 70 - 100 MG/DL Specimen Performing Laboratory [facility] [address] [place] [address] * CBC AND DIFF (03/23/2017 4:39 AM) Component Value Ref Range White Blood Cells 6.8 4.5 - 11.0 K/UL RBC 3.08 (L) 4.4 - 5.5 M/UL Hemoglobin 9.3 (L) 13.5 - 16.5 GM/DL Hematocrit 28.1 (L) 40 - 50 % MCV 91.4 80 - 100 FL MCH 30.1 26 - 34 PG MCHC 33.0 32.0 - 36.0 G/DL RDW 15.0 11 - 15 % Platelet Count 249 150 - 400 K/UL MPV 8.5 7 - 11 FL Neutrophils 76 41 - 77 % Lymphocytes 10 (L) 24 - 44 % Monocytes 10 4 - 12 % Eosinophils 3 0 - 5 % Basophils 1 0 - 2 % Absolute Neutrophil Count 5.20 1.8 - 7.0 K/UL Absolute Lymph Count 0.70 (L) 1.0 - 4.8 K/UL Absolute Monocyte Count 0.70 0 - 0.80 K/UL Absolute Eosinophil Count 0.20 0 - 0.45 K/UL Absolute Basophil Count 0.00 0 - 0.20 K/UL Specimen Performing Laboratory [facility] [address] [place] [address] * BLOOD GASES, ARTERIAL (03/23/2017 4:39 AM) Component Value Ref Range pH-Arterial 7.26 (L) 7.35 - 7.45 pCO2-Arterial 36 35 - 45 MMHG pO2-Arterial 74 (L) 80 - 100 MMHG Base Deficit-Arterial 10.6 MMOL/L O2 Sat-Arterial 92.5 (L) 95 - 99 % Twsrpgfeqit-MGV-Myj 16.1 (L) 21 - 28 MMOL/L Specimen Performing Laboratory Blood, arterial - Blood [facility] [address] [place] [address] * IONIZED CALCIUM (03/23/2017 4:39 AM) Component Value Ref Range Ionized Calcium 1.25 1.0 - 1.3 MMOL/L Specimen Performing Laboratory [facility] [address] [place] [address] * PHOSPHORUS (03/23/2017 4:39 AM) Component Value Ref Range Phosphorus 8.6 (H) 2.0 - 4.0 MG/DL Specimen Performing Laboratory [facility] [address] [place] [address] * MAGNESIUM (03/23/2017 4:39 AM) Component Value Ref Range Magnesium 2.6 1.6 - 2.6 mg/dL Specimen Performing Laboratory [facility] [address] [place] [address] * BASIC METABOLIC PANEL (03/23/2017 4:39 AM) Component Value Ref Range Sodium 136 (L) 137 - 147 MMOL/L Potassium 4.2 3.5 - 5.1 MMOL/L Chloride 92 (L) 98 - 110 MMOL/L CO2 17 (L) 21 - 30 MMOL/L Anion Gap 27 (H) 3 - 12 Glucose 91 70 - 100 MG/DL Blood Urea Nitrogen 78 (H) 7 - 25 MG/DL Creatinine 8.84 (H) 0.4 - 1.24 MG/DL Calcium 10.9 (H) 8.5 - 10.6 MG/DL eGFR Non 6 (L) >60 mL/min Comment: The eGFR is not validated for use in drug dosing adjustments. Continue to use estimated creatinine clearance per dosing reference text. Please contact the Clinical Pharmacist for questions. eGFR 8 (L) >60 mL/min Comment: The eGFR is not validated for use in drug dosing adjustments. Continue to use estimated creatinine clearance per dosing reference text. Please contact the Clinical Pharmacist for questions. Specimen Performing Laboratory [facility] [address] [place] [address] * POC GLUCOSE (03/23/2017 4:23 AM) Component Value Ref Range Glucose, POC 90 70 - 100 MG/DL Specimen Performing Laboratory [facility] [address] [place] [address] * POC GLUCOSE (03/22/2017 8:40 PM) Component Value Ref Range Glucose, POC 110 (H) 70 - 100 MG/DL Specimen Performing Laboratory [facility] [address] [place] [address] * POC GLUCOSE (03/22/2017 6:14 PM) Component Value Ref Range Glucose, POC 212 (H) 70 - 100 MG/DL Specimen Performing Laboratory [facility] [address] [place] [address] * CT HEAD WO CONTRAST (03/22/2017 5:59 PM) Specimen Performing Laboratory [facility] RAD RESULTS [...] Interface, Radiant Results - 03/23/2017 2:[address] HEAD HISTORY: Status post craniectomy, subarachnoid [...] Hernandez M.D. on 03/23/2017 1:48 AM. * POC GLUCOSE (03/22/2017 12:43 PM) Component Value Ref Range Glucose, POC 219 (H) 70 - 100 MG/DL Specimen Performing Laboratory MAIN LAB [address] [place] [address] * POC GLUCOSE (03/22/2017 8:07 AM) Component Value Ref Range Glucose, POC 128 (H) 70 - 100 MG/DL Specimen Performing Laboratory MAIN LAB [address] [place] [address] * CBC AND DIFF (03/22/2017 3:50 AM) Component Value Ref Range White Blood Cells 8.6 4.5 - 11.0 K/UL RBC 3.41 (L) 4.4 - 5.5 M/UL Hemoglobin 10.4 (L) 13.5 - 16.5 GM/DL Hematocrit 30.8 (L) 40 - 50 % MCV 90.4 80 - 100 FL MCH 30.6 26 - 34 PG MCHC 33.8 32.0 - 36.0 G/DL RDW 15.4 (H) 11 - 15 % Platelet Count 280 150 - 400 K/UL MPV 8.2 7 - 11 FL Neutrophils 82 (H) 41 - 77 % Lymphocytes 5 (L) 24 - 44 % Monocytes 10 4 - 12 % Eosinophils 3 0 - 5 % Basophils 0 0 - 2 % Absolute Neutrophil Count 7.10 (H) 1.8 - 7.0 K/UL Absolute Lymph Count 0.40 (L) 1.0 - 4.8 K/UL Absolute Monocyte Count 0.80 0 - 0.80 K/UL Absolute Eosinophil Count 0.30 0 - 0.45 K/UL Absolute Basophil Count 0.00 0 - 0.20 K/UL Specimen Performing Laboratory Blood MAIN LAB [address] [place] [address] * BLOOD GASES, ARTERIAL (03/22/2017 3:50 AM) Component Value Ref Range pH-Arterial 7.36 7.35 - 7.45 pCO2-Arterial 36 35 - 45 MMHG pO2-Arterial 83 80 - 100 MMHG Base Deficit-Arterial 4.2 MMOL/L O2 Sat-Arterial 96.1 95 - 99 % Xapdbvnpokl-VDW-Hxs 20.9 (L) 21 - 28 MMOL/L Specimen Performing Laboratory Blood, arterial - Blood MAIN LAB [address] [place] [address] * IONIZED CALCIUM (03/22/2017 3:50 AM) Component Value Ref Range Ionized Calcium 1.21 1.0 - 1.3 MMOL/L Specimen Performing Laboratory Blood MAIN LAB [address] [place], [place] [id number] * PHOSPHORUS (03/22/2017 3:50 AM) Component Value Ref Range Phosphorus 6.3 (H) 2.0 - 4.0 MG/DL Specimen Performing Laboratory Blood MAIN LAB [address] [place], [place] [id number] * MAGNESIUM (03/22/2017 3:50 AM) Component Value Ref Range Magnesium 2.4 1.6 - 2.6 mg/dL Specimen Performing Laboratory Blood MAIN LAB [address] [place] [address] * BASIC METABOLIC PANEL (03/22/2017 3:50 AM) Component Value Ref Range Sodium 135 (L) 137 - 147 MMOL/L Potassium 4.1 3.5 - 5.1 MMOL/L Chloride 95 (L) 98 - 110 MMOL/L CO2 19 (L) 21 - 30 MMOL/L Anion Gap 21 (H) 3 - 12 Glucose 153 (H) 70 - 100 MG/DL Blood Urea Nitrogen 51 (H) 7 - 25 MG/DL Creatinine 6.31 (H) 0.4 - 1.24 MG/DL Calcium 10.2 8.5 - 10.6 MG/DL eGFR Non 9 (L) >60 mL/min Comment: The eGFR is not validated for use in drug dosing adjustments. Continue to use estimated creatinine clearance per dosing reference text. Please contact the Clinical Pharmacist for questions. eGFR 11 (L) >60 mL/min Comment: The eGFR is not validated for use in drug dosing adjustments. Continue to use estimated creatinine clearance per dosing reference text. Please contact the Clinical Pharmacist for questions. Specimen Performing Laboratory Blood MAIN LAB [address] [place] [address] * POC GLUCOSE (03/22/2017 3:38 AM) Component Value Ref Range Glucose, POC 155 (H) 70 - 100 MG/DL Specimen Performing Laboratory MAIN LAB [address] [place] [address] * POC GLUCOSE (03/21/2017 9:12 PM) Component Value Ref Range Glucose, POC 153 (H) 70 - 100 MG/DL Specimen Performing Laboratory MAIN LAB [address] [place] [address] * POC GLUCOSE (03/21/2017 6:09 PM) Component Value Ref Range Glucose, POC 163 (H) 70 - 100 MG/DL Specimen Performing Laboratory MAIN LAB [address] [place] [address] * SWALLOW MOTION SERIES (03/21/2017 3:40 PM) [...] Interface, Radiant Results - 03/21/2017 4:44 PM INTERVENTIONIST SWALLOW MOTION SERIES CLINICAL INDICATION: Male, 51 [...] Jaime D.O. on 03/21/2017 4:05 PM. * HEMODIALYSIS INPATIENT (03/21/2017 1:02 PM) Narrative Hetal Roberts RN 03/21/20171:02 PM 0630 Arrived in Pt's RM [id number] with portable R/O and diaysis machine/supply cart. ICU staff cleaning Pt from BM. [id number] R/O rinsing/cool down cycle in progress. Pt repositioned by ICU staff X's 3. 0815 Arterial line patent. Verified correct Pt,meds,procedure and equipment.Signed consent for HD TX in chart. Pre-TX VS taken. 0830 HD TX started after all machine checks completed and passed. Verified Pt's LT FA AVF is patent. #15g fistula needles to cannulate Pt's access successfully,taped securely then connected to HD bloodlines. HD TX set per 's orders/HD protocol. Dr. Mitchell notified Pt started TX. 0930 Neuro team @ bedside and requested FR @ 2.0L. HD machine adjusted. 45 Dr. Mitchell @ bedside. 1230 HD TX completed. Blood returned through Pt's LT FA AVF and flushes easily. Net UF is 2.01L. 1245 Post TX VS taken. Report given to TENZIN Cueto. * HEMODIALYSIS DATE (03/21/2017 1:02 PM) Narrative Hetal Roberts RN 03/21/20171:02 PM 0630 Arrived in Pt's RM [id number] with portable R/O and diaysis machine/supply cart. ICU staff cleaning Pt from BM. [id number] R/O rinsing/cool down cycle in progress. Pt repositioned by ICU staff X's 3. 0815 Arterial line patent. Verified correct Pt,meds,procedure and equipment.Signed consent for HD TX in chart. Pre-TX VS taken. 0830 HD TX started after all machine checks completed and passed. Verified Pt's LT FA AVF is patent. #15g fistula needles to cannulate Pt's access successfully,taped securely then connected to HD bloodlines. HD TX set per 's orders/HD protocol. Dr. Mitchell notified Pt started TX. 0930 Neuro team @ bedside and requested FR @ 2.0L. HD machine adjusted. 45 Dr. Mitchell @ bedside. 1230 HD TX completed. Blood returned through Pt's LT FA AVF and flushes easily. Net UF is 2.01L. 1245 Post TX VS taken. Report given to TENZIN Cueto. * POC GLUCOSE (03/21/2017 12:26 PM) Component Value Ref Range Glucose, POC 145 (H) 70 - 100 MG/DL Specimen Performing Laboratory MAIN LAB [address] [place] [address] * POC GLUCOSE (03/21/2017 8:05 AM) Component Value Ref Range Glucose, POC 169 (H) 70 - 100 MG/DL Specimen Performing Laboratory MAIN LAB [address] [place] [address] * POC GLUCOSE (03/21/2017 3:42 AM) Component Value Ref Range Glucose, POC 150 (H) 70 - 100 MG/DL Specimen Performing Laboratory MAIN LAB [address] [place] [address] * CBC AND DIFF (03/21/2017 3:40 AM) Component Value Ref Range White Blood Cells 8.6 4.5 - 11.0 K/UL RBC 3.35 (L) 4.4 - 5.5 M/UL Hemoglobin 10.2 (L) 13.5 - 16.5 GM/DL Hematocrit 29.9 (L) 40 - 50 % MCV 89.2 80 - 100 FL MCH 30.4 26 - 34 PG MCHC 34.1 32.0 - 36.0 G/DL RDW 15.3 (H) 11 - 15 % Platelet Count 286 150 - 400 K/UL MPV 8.0 7 - 11 FL Neutrophils 81 (H) 41 - 77 % Lymphocytes 6 (L) 24 - 44 % Monocytes 10 4 - 12 % Eosinophils 3 0 - 5 % Basophils 0 0 - 2 % Absolute Neutrophil Count 6.90 1.8 - 7.0 K/UL Absolute Lymph Count 0.50 (L) 1.0 - 4.8 K/UL Absolute Monocyte Count 0.90 (H) 0 - 0.80 K/UL Absolute Eosinophil Count 0.30 0 - 0.45 K/UL Absolute Basophil Count 0.00 0 - 0.20 K/UL Specimen Performing Laboratory Blood MAIN LAB [address] [place] [address] * BLOOD GASES, ARTERIAL (03/21/2017 3:40 AM) Component Value Ref Range pH-Arterial 7.31 (L) 7.35 - 7.45 pCO2-Arterial 33 (L) 35 - 45 MMHG pO2-Arterial 65 (L) 80 - 100 MMHG Base Deficit-Arterial 9.1 MMOL/L O2 Sat-Arterial 89.9 (L) 95 - 99 % Ejymxckurop-TSH-Jel 17.0 (L) 21 - 28 MMOL/L Specimen Performing Laboratory Blood, arterial - Blood MAIN LAB [address] [place], [place] [id number] * IONIZED CALCIUM (03/21/2017 3:40 AM) Component Value Ref Range Ionized Calcium 1.23 1.0 - 1.3 MMOL/L Specimen Performing Laboratory Blood MAIN LAB [address] [place] [address] * PHOSPHORUS (03/21/2017 3:40 AM) Component Value Ref Range Phosphorus 7.0 (H) 2.0 - 4.0 MG/DL Specimen Performing Laboratory Blood MAIN LAB [address] [place] [address] * MAGNESIUM (03/21/2017 3:40 AM) Component Value Ref Range Magnesium 2.5 1.6 - 2.6 mg/dL Specimen Performing Laboratory Blood MAIN LAB [address] [place] [address] * BASIC METABOLIC PANEL (03/21/2017 3:40 AM) Component Value Ref Range Sodium 137 137 - 147 MMOL/L Potassium 3.6 3.5 - 5.1 MMOL/L Chloride 94 (L) 98 - 110 MMOL/L CO2 17 (L) 21 - 30 MMOL/L Anion Gap 26 (H) 3 - 12 Glucose 140 (H) 70 - 100 MG/DL Blood Urea Nitrogen 75 (H) 7 - 25 MG/DL Creatinine 7.98 (H) 0.4 - 1.24 MG/DL Calcium 10.7 (H) 8.5 - 10.6 MG/DL eGFR Non 7 (L) >60 mL/min Comment: The eGFR is not validated for use in drug dosing adjustments. Continue to use estimated creatinine clearance per dosing reference text. Please contact the Clinical Pharmacist for questions. eGFR 9 (L) >60 mL/min Comment: The eGFR is not validated for use in drug dosing adjustments. Continue to use estimated creatinine clearance per dosing reference text. Please contact the Clinical Pharmacist for questions. Specimen Performing Laboratory Blood MAIN LAB [address] [place] [address] * POC GLUCOSE (03/20/2017 8:54 PM) Component Value Ref Range Glucose, POC 139 (H) 70 - 100 MG/DL Specimen Performing Laboratory MAIN LAB [address] [place] [address] * POC GLUCOSE (03/20/2017 4:51 PM) Component Value Ref Range Glucose, POC 159 (H) 70 - 100 MG/DL Specimen Performing Laboratory MAIN LAB [address] [place] [address] * POC GLUCOSE (03/20/2017 11:57 AM) Component Value Ref Range Glucose, POC 143 (H) 70 - 100 MG/DL Specimen Performing Laboratory MAIN LAB [address] [place] [address] * POC GLUCOSE (03/20/2017 7:44 AM) Component Value Ref Range Glucose, POC 150 (H) 70 - 100 MG/DL Specimen Performing Laboratory MAIN LAB [address] [place] [address] * CBC AND DIFF (03/20/2017 4:28 AM) Component Value Ref Range White Blood Cells 8.6 4.5 - 11.0 K/UL RBC 3.18 (L) 4.4 - 5.5 M/UL Hemoglobin 9.7 (L) 13.5 - 16.5 GM/DL Hematocrit 28.6 (L) 40 - 50 % MCV 90.1 80 - 100 FL MCH 30.7 26 - 34 PG MCHC 34.1 32.0 - 36.0 G/DL RDW 15.1 (H) 11 - 15 % Platelet Count 270 150 - 400 K/UL MPV 8.1 7 - 11 FL Neutrophils 81 (H) 41 - 77 % Lymphocytes 5 (L) 24 - 44 % Monocytes 11 4 - 12 % Eosinophils 3 0 - 5 % Basophils 0 0 - 2 % Absolute Neutrophil Count 6.90 1.8 - 7.0 K/UL Absolute Lymph Count 0.40 (L) 1.0 - 4.8 K/UL Absolute Monocyte Count 1.00 (H) 0 - 0.80 K/UL Absolute Eosinophil Count 0.30 0 - 0.45 K/UL Absolute Basophil Count 0.00 0 - 0.20 K/UL Specimen Performing Laboratory Blood MAIN LAB [address] [place] [address] * BLOOD GASES, ARTERIAL (03/20/2017 4:28 AM) Component Value Ref Range pH-Arterial 7.38 7.35 - 7.45 pCO2-Arterial 37 35 - 45 MMHG pO2-Arterial 85 80 - 100 MMHG Base Deficit-Arterial 2.3 MMOL/L O2 Sat-Arterial 96.1 95 - 99 % Nbztbbaxtqj-PFV-Fog 22.4 21 - 28 MMOL/L Specimen Performing Laboratory Blood, arterial - Blood MAIN LAB [address] [place] [address] * IONIZED CALCIUM (03/20/2017 4:28 AM) Component Value Ref Range Ionized Calcium 1.19 1.0 - 1.3 MMOL/L Specimen Performing Laboratory Blood MAIN LAB [address] [place] [address] * PHOSPHORUS (03/20/2017 4:28 AM) Component Value Ref Range Phosphorus 5.3 (H) 2.0 - 4.0 MG/DL Specimen Performing Laboratory Blood MAIN LAB [address] [place] [address] * MAGNESIUM (03/20/2017 4:28 AM) Component Value Ref Range Magnesium 2.2 1.6 - 2.6 mg/dL Specimen Performing Laboratory Blood MAIN LAB [address] [place] [address] * BASIC METABOLIC PANEL (03/20/2017 4:28 AM) Component Value Ref Range Sodium 135 (L) 137 - 147 MMOL/L Potassium 3.6 3.5 - 5.1 MMOL/L Chloride 95 (L) 98 - 110 MMOL/L CO2 22 21 - 30 MMOL/L Anion Gap 18 (H) 3 - 12 Glucose 132 (H) 70 - 100 MG/DL Blood Urea Nitrogen 45 (H) 7 - 25 MG/DL Creatinine 5.83 (H) 0.4 - 1.24 MG/DL Calcium 9.9 8.5 - 10.6 MG/DL eGFR Non 10 (L) >60 mL/min Comment: The eGFR is not validated for use in drug dosing adjustments. Continue to use estimated creatinine clearance per dosing reference text. Please contact the Clinical Pharmacist for questions. eGFR 13 (L) >60 mL/min Comment: The eGFR is not validated for use in drug dosing adjustments. Continue to use estimated creatinine clearance per dosing reference text. Please contact the Clinical Pharmacist for questions. Specimen Performing Laboratory Blood MAIN LAB [address] [place] [address] * POC GLUCOSE (03/20/2017 3:23 AM) Component Value Ref Range Glucose, POC 150 (H) 70 - 100 MG/DL Specimen Performing Laboratory MAIN LAB [address] [place] [address] * POC GLUCOSE (03/19/2017 8:10 PM) Component Value Ref Range Glucose, POC 137 (H) 70 - 100 MG/DL Specimen Performing Laboratory MAIN LAB [address] [place] [address] * ABDOMEN AP ONLY (03/19/2017 7:37 PM) Specimen Performing Laboratory [facility] RAD RESULTS [...] Interface, Radiant Results - 03/20/2017 7:53 AM INTERVENTIONIST Portable AP abdomen CLINICAL HISTORY: Corpak verification. [...] Ledbetter M.D. on 03/20/2017 7:49 AM. * POC GLUCOSE (03/19/2017 5:36 PM) Component Value Ref Range Glucose, POC 131 (H) 70 - 100 MG/DL Specimen Performing Laboratory [facility] MAIN [facility] [address] [place] [address] * ABDOMEN AP ONLY (03/19/2017 4:23 PM) Specimen Performing Laboratory [facility] RAD RESULTS Impressions Enteric tube with tip overlying region of gastric body. Finalized by Claudia Tinoco M.D. on 03/19/2017 4:36 PM. Dictated by Claudia Tinoco M.D. on 03/19/2017 4:35 PM. Narrative ABDOMEN AP ONLY Indication: Corpak placement. Comparison: March 17, 2017 Findings: The enteric tube is seen with the tip overlying the region of the gastric body. Scattered gas is seen in large and small bowel in the upper abdomen. There appears to be a left pleural effusion and adjacent atelectasis. Procedure Note Interface, Radiant Results - 03/19/2017 4:39 PM INTERVENTIONIST ABDOMEN AP ONLY Indication: Corpak placement. Comparison: March 17, 2017 Findings: The enteric tube is seen with the tip overlying the region of the gastric body. Scattered gas is seen in large and small bowel in the upper abdomen. There appears to be a left pleural effusion and adjacent atelectasis. IMPRESSION Enteric tube with tip overlying region of gastric body. Finalized by Claudia Tinoco M.D. on 03/19/2017 4:36 PM. Dictated by Claudia Tinoco M.D. on 03/19/2017 4:35 PM. * HEMODIALYSIS INPATIENT (03/19/2017 4:09 PM) Rose Farias RN 03/19/20174:09 PM Hemodialysis treatment started 11:28, orders written for a 4 hour treatment with an ultra filtration goal of 2-3 liters, pre dialysis weight per bed scale 103.3 kg.Patient with a left forearm fistula needles placed without difficulties. Dialysis treatment completed without complications, blood returned needles pulled, hemostasis within 10 minutes, actual patient fluid removal 3,000 ml. * HEMODIALYSIS DATE (03/19/2017 4:09 PM) Rose Farias RN 03/19/20174:09 PM Hemodialysis treatment started 11:28, orders written for a 4 hour treatment with an ultra filtration goal of 2-3 liters, pre dialysis weight per bed scale 103.3 kg.Patient with a left forearm fistula needles placed without difficulties. Dialysis treatment completed without complications, blood returned needles pulled, hemostasis within 10 minutes, actual patient fluid removal 3,000 ml. * POC GLUCOSE (03/19/2017 11:56 AM) Component Value Ref Range Glucose, POC 139 (H) 70 - 100 MG/DL Specimen Performing Laboratory MAIN LAB [address] [place] [address] * POC GLUCOSE (03/19/2017 8:26 AM) Component Value Ref Range Glucose, POC 163 (H) 70 - 100 MG/DL Specimen Performing Laboratory MAIN LAB [address] [place] [address] * CBC AND DIFF (03/19/2017 4:18 AM) Component Value Ref Range White Blood Cells 7.4 4.5 - 11.0 K/UL RBC 2.96 (L) 4.4 - 5.5 M/UL Hemoglobin 9.3 (L) 13.5 - 16.5 GM/DL Hematocrit 27.0 (L) 40 - 50 % MCV 91.1 80 - 100 FL MCH 31.3 26 - 34 PG MCHC 34.4 32.0 - 36.0 G/DL RDW 15.1 (H) 11 - 15 % Platelet Count 218 150 - 400 K/UL MPV 8.0 7 - 11 FL Neutrophils 81 (H) 41 - 77 % Lymphocytes 4 (L) 24 - 44 % Monocytes 10 4 - 12 % Eosinophils 4 0 - 5 % Basophils 1 0 - 2 % Absolute Neutrophil Count 6.00 1.8 - 7.0 K/UL Absolute Lymph Count 0.30 (L) 1.0 - 4.8 K/UL Absolute Monocyte Count 0.70 0 - 0.80 K/UL Absolute Eosinophil Count 0.30 0 - 0.45 K/UL Absolute Basophil Count 0.00 0 - 0.20 K/UL Specimen Performing Laboratory Blood MAIN LAB [address] [place], [place] [id number] * BLOOD GASES, ARTERIAL (03/19/2017 4:18 AM) Component Value Ref Range pH-Arterial 7.34 (L) 7.35 - 7.45 pCO2-Arterial 37 35 - 45 MMHG pO2-Arterial 108 (H) 80 - 100 MMHG Base Deficit-Arterial 5.2 MMOL/L O2 Sat-Arterial 98.4 95 - 99 % Dfmzljwcmdg-QMW-Ekk 20.1 (L) 21 - 28 MMOL/L Specimen Performing Laboratory Blood, arterial - Blood MAIN LAB [address] [place], [place] [id number] * IONIZED CALCIUM (03/19/2017 4:18 AM) Component Value Ref Range Ionized Calcium 1.18 1.0 - 1.3 MMOL/L Specimen Performing Laboratory Blood MAIN LAB [address] [place] [address] * PHOSPHORUS (03/19/2017 4:18 AM) Component Value Ref Range Phosphorus 6.2 (H) 2.0 - 4.0 MG/DL Specimen Performing Laboratory Blood MAIN LAB [address] [place] [address] * MAGNESIUM (03/19/2017 4:18 AM) Component Value Ref Range Magnesium 2.3 1.6 - 2.6 mg/dL Specimen Performing Laboratory Blood MAIN LAB [address] [place] [address] * BASIC METABOLIC PANEL (03/19/2017 4:18 AM) Component Value Ref Range Sodium 136 (L) 137 - 147 MMOL/L Potassium 3.8 3.5 - 5.1 MMOL/L Chloride 94 (L) 98 - 110 MMOL/L CO2 21 21 - 30 MMOL/L Anion Gap 21 (H) 3 - 12 Glucose 166 (H) 70 - 100 MG/DL Blood Urea Nitrogen 60 (H) 7 - 25 MG/DL Creatinine 6.68 (H) 0.4 - 1.24 MG/DL Calcium 10.0 8.5 - 10.6 MG/DL eGFR Non 9 (L) >60 mL/min Comment: The eGFR is not validated for use in drug dosing adjustments. Continue to use estimated creatinine clearance per dosing reference text. Please contact the Clinical Pharmacist for questions. eGFR 11 (L) >60 mL/min Comment: The eGFR is not validated for use in drug dosing adjustments. Continue to use estimated creatinine clearance per dosing reference text. Please contact the Clinical Pharmacist for questions. Specimen Performing Laboratory Blood [facility] MAIN LAB [address] [place] [address] * POC GLUCOSE (03/19/2017 3:02 AM) Component Value Ref Range Glucose, POC 181 (H) 70 - 100 MG/DL Specimen Performing Laboratory [facility] MAIN [facility] [address] [place] [address] * US DOPPLER VENOUS BILATERAL (03/19/2017 1:15 [...] Interface, Radiant Results - 03/19/2017 6:45 AM INTERVENTIONIST Bilateral lower extremity venous Doppler History: Immobility, [...] Nice M.D. on 03/19/2017 6:41 AM. * POC GLUCOSE (03/18/2017 8:40 PM) Component Value Ref Range Glucose, POC 170 (H) 70 - 100 MG/DL Specimen Performing Laboratory MAIN LAB [address] [place] [address] * HEMODIALYSIS INPATIENT (03/18/2017 7:03 PM) Narrative Mihai Aly RN 03/18/20177:03 PM 8895 Status: Active Ordering user: Nir Timmons MD 03/17/175 Ordering provider: Nir Timmons MD Authorized by: Nir Timmons MD Frequency: Once 03/17/17 1800 - 1 Occurrences Released by: Patti Garcia RN 03/17/17 1422 Questions: Date Hemodialysis to be performed: 03/18/2017 Type of Hemodialysis: Conventional Hemodialysis Dialyzer: [employer] Optiflux F160 Type of Access: Left AV Fistula Maximum Blood flow Rate (BFR)(mL/min): 400 Comment - May reduce Blood Flow Rate if access or return pressure exceeds +/- 250 mmHg or symptomatic for hypovolemia Maximum Dialysate flow rate (mL/min): 800 Duration of treatment __ hours: 4 Comment - May adjust duration to match outpatient orders Initial Net Ultrafiltration Goal: Liters (Specify in comments) Comment - May reduce goal or place in minimum ultrafiltration rate if MAP <60 mmHg or symptomatic for hypovolemia Comments: 4 Potassium (K+) Bath: 3 mEq/L Calcium (Ca++) Bath 2.5 mEq/L Bicarbonate: 35 mEq/L Sodium (Na+) Modeling: Standard 140 mEq UF Modeling: Comment - May select UF Profile PRN to optimize fluid removal 1411 Set up at bedside. Patient in soft restraints for safety. Verified consent. Utilized 15 gauge and cannulated left forearm fistula. Bruit and thrill present. Aspirated and flushed well. Secured line with tape and scissor clamp. Soft restraint in place to prevent dislodgement of needles. Dialysis began. UF set for 2.5 liters or if Map drops below 80. 1450 Dr. Hartman paged. 1530 Dr Mitchlel here at bedside. 1815 patient had episodes with agitation and restless during treatment. Completed dialysis. Took off 4 liters. Map remains over 80. Karen DAVE received report. * HEMODIALYSIS DATE (03/18/2017 7:03 PM) Narrative Mihai Aly RN 03/18/20177:03 PM 1225 Status: Active Ordering user: Nir Timmons MD 03/17/17 1225 Ordering provider: Nir Timmons MD Authorized by: Nir Timmons MD Frequency: Once 03/17/17 1800 - 1 Occurrences Released by: Patti Garcia RN 03/17/17 5235 Questions: Date Hemodialysis to be performed: 03/18/2017 Type of Hemodialysis: Conventional Hemodialysis Dialyzer: [employer] Optiflux F160 Type of Access: Left AV Fistula Maximum Blood flow Rate (BFR)(mL/min): 400 Comment - May reduce Blood Flow Rate if access or return pressure exceeds +/- 250 mmHg or symptomatic for hypovolemia Maximum Dialysate flow rate (mL/min): 800 Duration of treatment __ hours: 4 Comment - May adjust duration to match outpatient orders Initial Net Ultrafiltration Goal: Liters (Specify in comments) Comment - May reduce goal or place in minimum ultrafiltration rate if MAP <60 mmHg or symptomatic for hypovolemia Comments: 4 Potassium (K+) Bath: 3 mEq/L Calcium (Ca++) Bath 2.5 mEq/L Bicarbonate: 35 mEq/L Sodium (Na+) Modeling: Standard 140 mEq UF Modeling: Comment - May select UF Profile PRN to optimize fluid removal 1411 Set up at bedside. Patient in soft restraints for safety. Verified consent. Utilized 15 gauge and cannulated left forearm fistula. Bruit and thrill present. Aspirated and flushed well. Secured line with tape and scissor clamp. Soft restraint in place to prevent dislodgement of needles. Dialysis began. UF set for 2.5 liters or if Map drops below 80. 14[address] Dr[address]man [address] 1530 Dr Mitchell here at bedside. 1815 patient had episodes with agitation and restless during treatment. Completed dialysis. Took off 4 liters. Map remains over 80. Karen DAVE received report. * POC GLUCOSE (03/18/2017 6:05 PM) Component Value Ref Range Glucose, POC 121 (H) 70 - 100 MG/DL Specimen Performing Laboratory MAIN LAB [address] [place] [address] * POC GLUCOSE (03/18/2017 11:44 AM) Component Value Ref Range Glucose, POC 157 (H) 70 - 100 MG/DL Specimen Performing Laboratory MAIN LAB [address] [place] [address] * POC GLUCOSE (03/18/2017 10:03 AM) Component Value Ref Range Glucose, POC 194 (H) 70 - 100 MG/DL Specimen Performing Laboratory MAIN LAB [address] [place] [address] * POC GLUCOSE (03/18/2017 3:41 AM) Component Value Ref Range Glucose, POC 162 (H) 70 - 100 MG/DL Specimen Performing Laboratory MAIN LAB [address] [place] [address] * CBC AND DIFF (03/18/2017 3:40 AM) Component Value Ref Range White Blood Cells 8.6 4.5 - 11.0 K/UL RBC 2.84 (L) 4.4 - 5.5 M/UL Hemoglobin 8.9 (L) 13.5 - 16.5 GM/DL Hematocrit 25.9 (L) 40 - 50 % MCV 91.4 80 - 100 FL MCH 31.5 26 - 34 PG MCHC 34.5 32.0 - 36.0 G/DL RDW 15.2 (H) 11 - 15 % Platelet Count 224 150 - 400 K/UL MPV 8.2 7 - 11 FL Neutrophils 81 (H) 41 - 77 % Lymphocytes 4 (L) 24 - 44 % Monocytes 10 4 - 12 % Eosinophils 4 0 - 5 % Basophils 1 0 - 2 % Absolute Neutrophil Count 7.00 1.8 - 7.0 K/UL Absolute Lymph Count 0.40 (L) 1.0 - 4.8 K/UL Absolute Monocyte Count 0.90 (H) 0 - 0.80 K/UL Absolute Eosinophil Count 0.40 0 - 0.45 K/UL Absolute Basophil Count 0.10 0 - 0.20 K/UL Specimen Performing Laboratory Blood MAIN LAB [address] [place] [address] * BLOOD GASES, ARTERIAL (03/18/2017 3:40 AM) Component Value Ref Range pH-Arterial 7.28 (L) 7.35 - 7.45 pCO2-Arterial 33 (L) 35 - 45 MMHG pO2-Arterial 96 80 - 100 MMHG Base Deficit-Arterial 10.4 MMOL/L O2 Sat-Arterial 97.0 95 - 99 % Vlhzznsumwo-NUF-Kfg 16.1 (L) 21 - 28 MMOL/L Specimen Performing Laboratory Blood, arterial - Blood MAIN LAB [address] [place] [address] * IONIZED CALCIUM (03/18/2017 3:40 AM) Component Value Ref Range Ionized Calcium 1.22 1.0 - 1.3 MMOL/L Specimen Performing Laboratory Blood MAIN LAB [address] [place] [address] * PHOSPHORUS (03/18/2017 3:40 AM) Component Value Ref Range Phosphorus 9.2 (H) 2.0 - 4.0 MG/DL Specimen Performing Laboratory Blood MAIN LAB [address] [place] [address] * MAGNESIUM (03/18/2017 3:40 AM) Component Value Ref Range Magnesium 2.6 1.6 - 2.6 mg/dL Specimen Performing Laboratory Blood MAIN LAB [address] [place] [address] * BASIC METABOLIC PANEL (03/18/2017 3:40 AM) Component Value Ref Range Sodium 138 137 - 147 MMOL/L Potassium 4.2 3.5 - 5.1 MMOL/L Chloride 95 (L) 98 - 110 MMOL/L CO2 14 (L) 21 - 30 MMOL/L Anion Gap 29 (H) 3 - 12 Glucose 152 (H) 70 - 100 MG/DL Blood Urea Nitrogen 94 (H) 7 - 25 MG/DL Creatinine 9.41 (H) 0.4 - 1.24 MG/DL Calcium 10.4 8.5 - 10.6 MG/DL eGFR Non 6 (L) >60 mL/min Comment: The eGFR is not validated for use in drug dosing adjustments. Continue to use estimated creatinine clearance per dosing reference text. Please contact the Clinical Pharmacist for questions. eGFR 7 (L) >60 mL/min Comment: The eGFR is not validated for use in drug dosing adjustments. Continue to use estimated creatinine clearance per dosing reference text. Please contact the Clinical Pharmacist for questions. Specimen Performing Laboratory [facility] [address] [place] [address] * ABDOMEN AP ONLY (03/17/2017 9:28 PM) Specimen Performing Laboratory [facility] RESULTS Impressions Antral position of the tip of the enteric tube. Finalized by Ronnie Nice M.D. on 03/18/2017 8:20 AM. Dictated by Ronnie Nice M.D. on 03/18/2017 8:18 AM. Narrative Corpak placement. Technique: Single portable AP supine view of the abdomen was obtained. Comparison: Comparison is made to an examination of 03/12/2017.. Findings: Only the upper abdomen is included on the present study. The bowel is not distended. An enteric tube is in place with its tip at the level of the gastric antrum. There are bilateral lower lobe alveolar opacities, left greater than right. There is also a left pleural effusion. Procedure Note Interface, Radiant Results - 03/18/2017 8:23 AM INTERVENTIONIST Corpak placement. Technique: Single portable AP supine view of the abdomen was obtained. Comparison: Comparison is made to an examination of 03/12/2017.. Findings: Only the upper abdomen is included on the present study. The bowel is not distended. An enteric tube is in place with its tip at the level of the gastric antrum. There are bilateral lower lobe alveolar opacities, left greater than right. There is also a left pleural effusion. IMPRESSION Antral position of the tip of the enteric tube. Finalized by Ronnie Nice M.D. on 03/18/2017 8:20 AM. Dictated by Ronnie Nice M.D. on 03/18/2017 8:18 AM. * POC GLUCOSE (03/17/2017 8:28 PM) Component Value Ref Range Glucose, POC 134 (H) 70 - 100 MG/DL Specimen Performing Laboratory [facility] [address] [place] [address] * POC GLUCOSE (03/17/2017 4:51 PM) Component Value Ref Range Glucose, POC 153 (H) 70 - 100 MG/DL Specimen Performing Laboratory [facility] [address] [place] [address] * POC GLUCOSE (03/17/2017 12:40 PM) Component Value Ref Range Glucose, POC 185 (H) 70 - 100 MG/DL Specimen Performing Laboratory [facility] [address] [place] [address] * POC GLUCOSE (03/17/2017 9:07 AM) Component Value Ref Range Glucose, POC 147 (H) 70 - 100 MG/DL Specimen Performing Laboratory [facility] [address] [place] [address] * CT CHEST W CONTRAST (03/17/2017 8:33 [...] Interface, Radiant Results - 03/17/2017 12:[address] Chest Clinical Indication: Male, 51 years [...] M.D. on 03/17/2017 11:21 AM. * POC IONIZED CALCIUM (03/17/2017 5:29 AM) Component Value Ref Range Ionized Calcium-POC 1.12 1.0 - 1.3 MMOL/L Specimen Performing Laboratory MAIN [facility] [address] [place] [address] * POC SODIUM (03/17/2017 5:29 AM) Component Value Ref Range Sodium-POC 135 (L) 137 - 147 MMOL/L Specimen Performing Laboratory MAIN [facility] [address] [place], [place] [id number] * POC POTASSIUM (03/17/2017 5:29 AM) Component Value Ref Range Potassium-POC 3.8 3.5 - 5.1 MMOL/L Specimen Performing Laboratory MAIN [facility] [address] [place] [address] * POC HEMATOCRIT (03/17/2017 5:29 AM) Component Value Ref Range Hemoglobin POC 9.2 (L) 13.5 - 16.5 GM/DL Hematocrit POC 27.0 (L) 40 - 50 % Specimen Performing Laboratory MAIN [facility] [address] [place] [address] * POC BLOOD GAS ARTERIAL (03/17/2017 5:29 AM) Component Value Ref Range PH-ART-POC 7.35 7.35 - 7.45 PCS1-MON-GQO 40 35 - 45 MMHG PO2-ART-POC 90 80 - 100 MMHG Base Def-ART-POC 4.0 MMOL/L O2 Sat-ART-POC 97.0 95 - 99 % Sifvdtxnptb-RIP-SKP 22.0 21 - 28 MMOL/L Specimen Performing Laboratory [facility] [address] [place] [address] * BLOOD GASES, ARTERIAL (03/17/2017 5:27 AM) Component Value Ref Range pH-Arterial 7.32 (L) 7.35 - 7.45 pCO2-Arterial 41 35 - 45 MMHG pO2-Arterial 108 (H) 80 - 100 MMHG Base Deficit-Arterial 4.7 MMOL/L O2 Sat-Arterial 98.0 95 - 99 % Ygewqegboog-GDV-Vds 20.5 (L) 21 - 28 MMOL/L Specimen Performing Laboratory Blood, arterial - Blood [facility] [address] [place] [address] * LIPASE (03/17/2017 4:13 AM) Component Value Ref Range Lipase 45 11 - 82 U/L Specimen Performing Laboratory [facility] [address] [place] [address] * AMYLASE (03/17/2017 4:13 AM) Component Value Ref Range Amylase 86 24 - 100 U/L Specimen Performing Laboratory [facility] [address] [place] [address] * CBC AND DIFF (03/17/2017 4:13 AM) Component Value Ref Range White Blood Cells 8.1 4.5 - 11.0 K/UL RBC 2.82 (L) 4.4 - 5.5 M/UL Hemoglobin 8.5 (L) 13.5 - 16.5 GM/DL Hematocrit 25.9 (L) 40 - 50 % MCV 91.8 80 - 100 FL MCH 30.3 26 - 34 PG MCHC 33.0 32.0 - 36.0 G/DL RDW 16.1 (H) 11 - 15 % Platelet Count 196 150 - 400 K/UL MPV 8.8 7 - 11 FL Neutrophils 83 (H) 41 - 77 % Lymphocytes 3 (L) 24 - 44 % Monocytes 11 4 - 12 % Eosinophils 3 0 - 5 % Basophils 0 0 - 2 % Absolute Neutrophil Count 6.60 1.8 - 7.0 K/UL Absolute Lymph Count 0.30 (L) 1.0 - 4.8 K/UL Absolute Monocyte Count 0.90 (H) 0 - 0.80 K/UL Absolute Eosinophil Count 0.30 0 - 0.45 K/UL Absolute Basophil Count 0.00 0 - 0.20 K/UL Specimen Performing Laboratory [facility] [address] [place] [address] * IONIZED CALCIUM (03/17/2017 4:13 AM) Component Value Ref Range Ionized Calcium 1.17 1.0 - 1.3 MMOL/L Specimen Performing Laboratory [facility] [address] [place] [address] * PHOSPHORUS (03/17/2017 4:13 AM) Component Value Ref Range Phosphorus 6.6 (H) 2.0 - 4.0 MG/DL Specimen Performing Laboratory [facility] [address] [place] [address] * MAGNESIUM (03/17/2017 4:13 AM) Component Value Ref Range Magnesium 2.4Comment: SLT HEMOLYSIS 1.6 - 2.6 mg/dL Specimen Performing Laboratory [facility] [address] [place] [address] * BASIC METABOLIC PANEL (03/17/2017 4:13 AM) Component Value Ref Range Sodium 137 137 - 147 MMOL/L Potassium 4.9Comment: SLT HEMOLYSIS 3.5 - 5.1 MMOL/L Chloride 97 (L) 98 - 110 MMOL/L CO2 19 (L) 21 - 30 MMOL/L Anion Gap 21 (H) 3 - 12 Glucose 142 (H) 70 - 100 MG/DL Blood Urea Nitrogen 59 (H) 7 - 25 MG/DL Creatinine 6.74 (H) 0.4 - 1.24 MG/DL Calcium 9.5 8.5 - 10.6 MG/DL eGFR Non 9 (L) >60 mL/min Comment: The eGFR is not validated for use in drug dosing adjustments. Continue to use estimated creatinine clearance per dosing reference text. Please contact the Clinical Pharmacist for questions. eGFR 11 (L) >60 mL/min Comment: The eGFR is not validated for use in drug dosing adjustments. Continue to use estimated creatinine clearance per dosing reference text. Please contact the Clinical Pharmacist for questions. Specimen Performing Laboratory [facility] [address] [place] [address] * POC GLUCOSE (03/17/2017 4:00 AM) Component Value Ref Range Glucose, POC 142 (H) 70 - 100 MG/DL Specimen Performing Laboratory MA[facility] [address] [place] [address] * POC GLUCOSE (03/16/2017 10:18 PM) Component Value Ref Range Glucose, POC 147 (H) 70 - 100 MG/DL Specimen Performing Laboratory [facility] [address] [place] [address] * CHEST SINGLE VIEW (03/16/2017 10:10 PM) Specimen Performing Laboratory [facility] RESULTS [...] Interface, Radiant Results - 03/17/2017 11:49 AM INTERVENTIONIST CHEST SINGLE VIEW Clinical Indication: Male, 51 [...] Irizarry M.D. on 03/17/2017 8:31 AM. * CHEST SINGLE VIEW (03/16/2017 7:44 PM) Specimen Performing Laboratory [facility] RESULTS Impressions Unchanged mild cardiomegaly and a left pleural effusion with adjacent atelectasis. Approved by Kenneth Irizarry M.D. on 03/17/2017 10:16 AM By my electronic signature, I attest that I have personally reviewed the images for this examination and formulated the interpretations and opinions expressed in this report Finalized by Lanre Lawler M.D. on 03/17/2017 11:46 AM. Dictated by Kenneth Irizarry M.D. on 03/17/2017 9:32 AM. Narrative CHEST SINGLE VIEW Clinical Indication: Male, 51 years old. Increased work of breathing Comparison: Chest earlier same day Findings: Enteric tube extends below the diaphragm and out of the field of view. Cardiac silhouettes mildly enlarged. Pulmonary vasculature is unremarkable. Unchanged left pleural effusion and adjacent atelectasis. No pneumothorax. Procedure Note Interface, Radiant Results - 03/17/2017 11:49 AM INTERVENTIONIST CHEST SINGLE VIEW Clinical Indication: Male, 51 years old. Increased work of breathing Comparison: Chest earlier same day Findings: Enteric tube extends below the diaphragm and out of the field of view. Cardiac silhouettes mildly enlarged. Pulmonary vasculature is unremarkable. Unchanged left pleural effusion and adjacent atelectasis. No pneumothorax. IMPRESSION Unchanged mild cardiomegaly and a left pleural effusion with adjacent atelectasis. Approved by Kenneth Irizarry M.D. on 03/17/2017 10:16 AM By my electronic signature, I attest that I have personally reviewed the images for this examination and formulated the interpretations and opinions expressed in this report Finalized by Lanre Lawler M.D. on 03/17/2017 11:46 AM. Dictated by Kenneth Irizarry M.D. on 03/17/2017 9:32 AM. * BLOOD GASES, ARTERIAL (03/16/2017 7:05 PM) Component Value Ref Range pH-Arterial 7.43 7.35 - 7.45 pCO2-Arterial 34 (L) 35 - 45 MMHG pO2-Arterial 74 (L) 80 - 100 MMHG Base Deficit-Arterial 1.1 MMOL/L O2 Sat-Arterial 95.1 95 - 99 % Dbborisvjca-BJK-Ysk 23.4 21 - 28 MMOL/L Specimen Performing Laboratory Blood, arterial - Blood [facility] [address] [place] [address] * HEMODIALYSIS INPATIENT (03/16/2017 6:13 PM) Narrative Mihai Aly RN 03/16/20176:13 PM 41 Status: Active Ordering user: Tracie Mitchell MD 03/15/171641 Ordering provider: Tracie Mitchell MD Authorized by: Tracie Mitchell MD Frequency: Once 03/16/17 0530 - 1 Occurrences Released by: Corazon Caba RN 03/16/17519 Questions: Date Hemodialysis to be performed: 03/16/2017 Type of Hemodialysis: Conventional Hemodialysis Dialyzer: [employer] Optiflux F160 Type of Access: Left AV Fistula Maximum Blood flow Rate (BFR)(mL/min): 400 Comment - May reduce Blood Flow Rate if access or return pressure exceeds +/- 250 mmHg or symptomatic for hypovolemia Maximum Dialysate flow rate (mL/min): 800 Duration of treatment __ hours: 3.5 Comment - May adjust duration to match outpatient orders Initial Net Ultrafiltration Goal: Liters (Specify in comments) Comment - May reduce goal or place in minimum ultrafiltration rate if MAP <60 mmHg or symptomatic for hypovolemia Comments: 2-3L Potassium (K+) Bath: 2 mEq/L Calcium (Ca++) Bath 2.5 mEq/L Bicarbonate: 35 mEq/L Sodium (Na+) Modeling: Standard 140 mEq UF Modeling: Comment - May select UF Profile PRN to optimize fluid removal 1245 Received report at bedside from Miranda Alcantara RN. 1400 CBC drawn prior to start of dialysis. 1415 Orders as above placed per renal. Accessed his left forearm fistula with 15 guage needles. Aspirated and flushed well. Lines are visible on him and to the machine. Goal is set at 2 liters. Potassium bath was 2K+. 1430 Dr. Mitchell paged. 1435 Family in room visiting. 1515 Patient has been consistent with putting legs on the side of the bed. 1530 B/P in the 200s systolic. immigration paralegal giving meds. UF increased to 3.[address] Cardona. 1615 BP remains above 200 systolic. ICU nurse addressing B/P. 1745 Dialysis complete. UF total was 4 liters. Phi DAVE given report. * HEMODIALYSIS DATE (03/16/2017 6:13 PM) Narrative Mihai Aly RN 03/16/20176:13 PM 1642 Status: Active Ordering user: Tracie Mitchell MD 03/15/17 1642 Ordering provider: Tracie Mitchell MD Authorized by: Tracie Mitchell MD Frequency: Once 03/16/17 0530 - 1 Occurrences Released by: Corazon Caba RN 03/16/17519 Questions: Date Hemodialysis to be performed: 03/16/2017 Type of Hemodialysis: Conventional Hemodialysis Dialyzer: [employer] Optiflux F160 Type of Access: Left AV Fistula Maximum Blood flow Rate (BFR)(mL/min): 400 Comment - May reduce Blood Flow Rate if access or return pressure exceeds +/- 250 mmHg or symptomatic for hypovolemia Maximum Dialysate flow rate (mL/min): 800 Duration of treatment __ hours: 3.5 Comment - May adjust duration to match outpatient orders Initial Net Ultrafiltration Goal: Liters (Specify in comments) Comment - May reduce goal or place in minimum ultrafiltration rate if MAP <60 mmHg or symptomatic for hypovolemia Comments: 2-3L Potassium (K+) Bath: 2 mEq/L Calcium (Ca++) Bath 2.5 mEq/L Bicarbonate: 35 mEq/L Sodium (Na+) Modeling: Standard 140 mEq UF Modeling: Comment - May select UF Profile PRN to optimize fluid removal 1245 Received report at bedside from Miranda Alcantara RN. 1400 CBC drawn prior to start of dialysis. 1415 Orders as above placed per renal. Accessed his left forearm fistula with 15 guage needles. Aspirated and flushed well. Lines are visible on him and to the machine. Goal is set at 2 liters. Potassium bath was 2K+. 1430 Dr. Mitchell paged. 1435 Family in room visiting. 1515 Patient has been consistent with putting legs on the side of the bed. 1530 B/P in the 200s systolic. immigration paralegal giving meds. UF increased to 3.[address] Cardona. 1615 BP remains above 200 systolic. ICU nurse addressing B/P. 1745 Dialysis complete. UF total was 4 liters. Phi DAVE given report. * POC GLUCOSE (03/16/2017 5:18 PM) Component Value Ref Range Glucose, POC 127 (H) 70 - 100 MG/DL Specimen Performing Laboratory [facility] [address] [place] [address] * CBC AND DIFF (03/16/2017 2:10 PM) Component Value Ref Range White Blood Cells 8.9 4.5 - 11.0 K/UL RBC 2.67 (L) 4.4 - 5.5 M/UL Hemoglobin 8.1 (L) 13.5 - 16.5 GM/DL Hematocrit 24.8 (L) 40 - 50 % MCV 92.8 80 - 100 FL MCH 30.4 26 - 34 PG MCHC 32.7 32.0 - 36.0 G/DL RDW 16.2 (H) 11 - 15 % Platelet Count 194 150 - 400 K/UL MPV 8.4 7 - 11 FL Neutrophils 82 (H) 41 - 77 % Lymphocytes 3 (L) 24 - 44 % Monocytes 11 4 - 12 % Eosinophils 4 0 - 5 % Basophils 0 0 - 2 % Absolute Neutrophil Count 7.30 (H) 1.8 - 7.0 K/UL Absolute Lymph Count 0.30 (L) 1.0 - 4.8 K/UL Absolute Monocyte Count 1.00 (H) 0 - 0.80 K/UL Absolute Eosinophil Count 0.30 0 - 0.45 K/UL Absolute Basophil Count 0.00 0 - 0.20 K/UL Specimen Performing Laboratory [facility] [address] [place] [address] * POC GLUCOSE (03/16/2017 11:56 AM) Component Value Ref Range Glucose, POC 193 (H) 70 - 100 MG/DL Specimen Performing Laboratory [facility] [address] [place] [address] * BETA HYDROXYBUTYRATE (KETONES) (03/16/2017 11:20 AM) Component Value Ref Range Beta Hydroxybutyrate 0.1 <0.3 MMOL/L Comment: Beta hydroxybutyrate (BOHB) is the most abundant ketone (78%), followed by acetoacetate (20%) and acetone (2%). Measurement BOHB is recommended to assess ketones in DKA. Expected BOHB Results for DKA: Initial presentation high/increasing During treatment decreasing Resolved decreasing/normal Specimen Performing Laboratory [facility] [address] [place] [address] * LACTIC ACID(LACTATE) (03/16/2017 11:20 AM) Component Value Ref Range Lactic Acid 0.8 0.5 - 2.0 MMOL/L Specimen Performing Laboratory [facility] [address] [place] [address] * POC GLUCOSE (03/16/2017 7:59 AM) Component Value Ref Range Glucose, POC 191 (H) 70 - 100 MG/DL Specimen Performing Laboratory [facility] [address] [place] [address] * CHEST SINGLE VIEW (03/16/2017 6:32 AM) Specimen Performing Laboratory [facility] RESULTS Impressions 1.Interval removal of endotracheal tube. 2.Increased left pleural effusion and left basilar consolidation. 3.Unchanged cardiomegaly. Approved by Berlin Menjivar M.D. on 03/16/2017 10:25 AM By my electronic signature, I attest that I have personally reviewed the images for this examination and formulated the interpretations and opinions expressed in this report Finalized by Lanre Lawler M.D. on 03/16/2017 11:18 AM. Dictated by Berlin Menjivar M.D. on 03/16/2017 9:08 AM. Narrative Exam: CHEST SINGLE VIEW History: left sided pleural effusion Comparison: Portable chest dated 03/14/2017.. Findings: The endotracheal tube and esophageal temperature probe have been removed. An enteric tube is again seen and can be followed below the diaphragm, however, the tip is not in the ecvvu-fi-ntel. The heart size remains enlarged. No pulmonary vascular congestion is identified. There is been interval increased left pleural effusion and left basilar consolidation. The right lung remains clear focal consolidation or pleural effusion. No pneumothorax is identified. Procedure Note Interface, Radiant Results - 03/16/2017 11:22 AM INTERVENTIONIST Exam: CHEST SINGLE VIEW History: left sided pleural effusion Comparison: Portable chest dated 03/14/2017.. Findings: The endotracheal tube and esophageal temperature probe have been removed. An enteric tube is again seen and can be followed below the diaphragm, however, the tip is not in the ktcth-rr-meoe. The heart size remains enlarged. No pulmonary vascular congestion is identified. There is been interval increased left pleural effusion and left basilar consolidation. The right lung remains clear focal consolidation or pleural effusion. No pneumothorax is identified. IMPRESSION 1. Interval removal of endotracheal tube. 2. Increased left pleural effusion and left basilar consolidation. 3. Unchanged cardiomegaly. Approved by Berlin Menjivar M.D. on 03/16/2017 10:25 AM By my electronic signature, I attest that I have personally reviewed the images for this examination and formulated the interpretations and opinions expressed in this report Finalized by Lanre Lawler M.D. on 03/16/2017 11:18 AM. Dictated by Berlin Menjivar M.D. on 03/16/2017 9:08 AM. * BLOOD GASES, ARTERIAL (03/16/2017 5:07 AM) Component Value Ref Range pH-Arterial 7.28 (L) 7.35 - 7.45 pCO2-Arterial 35 35 - 45 MMHG pO2-Arterial 92 80 - 100 MMHG Base Deficit-Arterial 9.8 MMOL/L O2 Sat-Arterial 96.3 95 - 99 % Cnsusstepmq-FYQ-Lon 16.5 (L) 21 - 28 MMOL/L Specimen Performing Laboratory Blood, arterial - Blood [facility] [address] [place] [address] * IONIZED CALCIUM (03/16/2017 5:07 AM) Component Value Ref Range Ionized Calcium 1.14 1.0 - 1.3 MMOL/L Specimen Performing Laboratory Blood [facility] [address] [place], [place] [id number] * PHOSPHORUS (03/16/2017 5:07 AM) Component Value Ref Range Phosphorus 9.4 (H) 2.0 - 4.0 MG/DL Specimen Performing Laboratory [facility] [address] [place] [address] * MAGNESIUM (03/16/2017 5:07 AM) Component Value Ref Range Magnesium 2.4 1.6 - 2.6 mg/dL Specimen Performing Laboratory [facility] [address] [place] [address] * BASIC METABOLIC PANEL (03/16/2017 5:07 AM) Component Value Ref Range Sodium 137 137 - 147 MMOL/L Potassium 4.5 3.5 - 5.1 MMOL/L Chloride 97 (L) 98 - 110 MMOL/L CO2 14 (L) 21 - 30 MMOL/L Anion Gap 26 (H) 3 - 12 Glucose 149 (H) 70 - 100 MG/DL Blood Urea Nitrogen 83 (H) 7 - 25 MG/DL Creatinine 8.61 (H) 0.4 - 1.24 MG/DL Calcium 9.8 8.5 - 10.6 MG/DL eGFR Non 7 (L) >60 mL/min Comment: The eGFR is not validated for use in drug dosing adjustments. Continue to use estimated creatinine clearance per dosing reference text. Please contact the Clinical Pharmacist for questions. eGFR 8 (L) >60 mL/min Comment: The eGFR is not validated for use in drug dosing adjustments. Continue to use estimated creatinine clearance per dosing reference text. Please contact the Clinical Pharmacist for questions. Specimen Performing Laboratory Blood [facility] [address] [place] [address] * POC GLUCOSE (03/16/2017 4:57 AM) Component Value Ref Range Glucose, POC 162 (H) 70 - 100 MG/DL Specimen Performing Laboratory [facility] [address] [place], [place] [id number] * POC GLUCOSE (03/15/2017 8:24 PM) Component Value Ref Range Glucose, POC 182 (H) 70 - 100 MG/DL Specimen Performing Laboratory [facility] [address] [place], [place] [id number] * POC GLUCOSE (03/15/2017 5:26 PM) Component Value Ref Range Glucose, POC 163 (H) 70 - 100 MG/DL Specimen Performing Laboratory [facility] [address] [place], [place] [id number] * POC GLUCOSE (03/15/2017 12:10 PM) Component Value Ref Range Glucose, POC 162 (H) 70 - 100 MG/DL Specimen Performing Laboratory [facility] [address] [place], [place] [id number] * POC GLUCOSE (03/15/2017 8:19 AM) Component Value Ref Range Glucose, POC 163 (H) 70 - 100 MG/DL Specimen Performing Laboratory [facility] [address] [place] [address] * BLOOD GASES, ARTERIAL (03/15/2017 3:30 AM) Component Value Ref Range pH-Arterial 7.32 (L) 7.35 - 7.45 pCO2-Arterial 44 35 - 45 MMHG pO2-Arterial 145 (H) 80 - 100 MMHG Base Deficit-Arterial 3.7 MMOL/L O2 Sat-Arterial 99.5 (H) 95 - 99 % Nfnbdahcwnq-GAO-Efb 21.3 21 - 28 MMOL/L Specimen Performing Laboratory Blood, arterial - Blood [facility] [address] [place] [address] * IONIZED CALCIUM (03/15/2017 3:30 AM) Component Value Ref Range Ionized Calcium 1.16 1.0 - 1.3 MMOL/L Specimen Performing Laboratory [facility] [address] [place] [address] * PHOSPHORUS (03/15/2017 3:30 AM) Component Value Ref Range Phosphorus 7.5 (H) 2.0 - 4.0 MG/DL Specimen Performing Laboratory [facility] [address] [place] [address] * MAGNESIUM (03/15/2017 3:30 AM) Component Value Ref Range Magnesium 2.2 1.6 - 2.6 mg/dL Specimen Performing Laboratory [facility] [address] [place] [address] * BASIC METABOLIC PANEL (03/15/2017 3:30 AM) Component Value Ref Range Sodium 137 137 - 147 MMOL/L Potassium 4.4 3.5 - 5.1 MMOL/L Chloride 99 98 - 110 MMOL/L CO2 20 (L) 21 - 30 MMOL/L Anion Gap 18 (H) 3 - 12 Glucose 200 (H) 70 - 100 MG/DL Blood Urea Nitrogen 56 (H) 7 - 25 MG/DL Creatinine 6.29 (H) 0.4 - 1.24 MG/DL Calcium 9.1 8.5 - 10.6 MG/DL eGFR Non 10 (L) >60 mL/min Comment: [...] Pharmacist for questions. Specimen Performing Laboratory [facility] [address] [place] [address] * POC GLUCOSE (03/15/2017 2:19 AM) Component Value Ref Range Glucose, POC 193 (H) 70 - 100 MG/DL Specimen Performing Laboratory [facility] [address] [place] [address] * POC GLUCOSE (03/14/2017 8:04 PM) Component Value Ref Range Glucose, POC 172 (H) 70 - 100 MG/DL Specimen Performing Laboratory [facility] [address] [place] [address] * POC GLUCOSE (03/14/2017 5:11 PM) Component Value Ref Range Glucose, POC 206 (H) 70 - 100 MG/DL Specimen Performing Laboratory [facility] [address] [place] [address] * CHEST SINGLE VIEW (03/14/2017 5:08 PM) Specimen Performing Laboratory [facility] RESULTS Impressions 1. Improvement in moderate left pleural effusion with adjacent consolidation. 2. Cardiomegaly without CHF. 3. Exchange of gastric tube for enteric tube. Approved by Lyly Frazier M.D. on 03/15/2017 10:04 AM By my electronic signature, I attest that I have personally reviewed the images for this examination and formulated the interpretations and opinions expressed in this report Finalized by Gage Sebastian D.O. on 03/16/2017 12:00 AM. Dictated by Lyly Frazier M.D. on 03/15/2017 7:28 AM. Narrative Procedure: CHEST SINGLE VIEW Clinical Indication: Status post thoracentesis. Comparison: Chest radiograph March 12, 2017 FINDINGS: Single portable semiupright AP chest radiograph was obtained. Endotracheal tube remains in similar position. Exchange of gastric tube for enteric tube which courses below the diaphragm and projects out of the lrinu-ps-pech. Metallic wire is noted with tip overlying the tiara which may represent a guidewire. Persistent cardiomegaly without pulmonary venous congestion. Improvement in moderate left pleural effusion with adjacent left lung base consolidation. No pneumothorax. Procedure Note Interface, Radiant Results - 03/16/2017 12:03 AM INTERVENTIONIST Procedure: CHEST SINGLE VIEW Clinical Indication: Status post thoracentesis. Comparison: Chest radiograph March 12, 2017 FINDINGS: Single portable semiupright AP chest radiograph was obtained. Endotracheal tube remains in similar position. Exchange of gastric tube for enteric tube which courses below the diaphragm and projects out of the fzhxl-nu-jjhz. Metallic wire is noted with tip overlying the tiara which may represent a guidewire. Persistent cardiomegaly without pulmonary venous congestion. Improvement in moderate left pleural effusion with adjacent left lung base consolidation. No pneumothorax. IMPRESSION 1. Improvement in moderate left pleural effusion with adjacent consolidation. 2. Cardiomegaly without CHF. 3. Exchange of gastric tube for enteric tube. Approved by Lyly Frazier M.D. on 03/15/2017 10:04 AM By my electronic signature, I attest that I have personally reviewed the images for this examination and formulated the interpretations and opinions expressed in this report Finalized by Gage Sebastian D.O. on 03/16/2017 12:00 AM. Dictated by Lyly Frazier M.D. on 03/15/2017 7:28 AM. * FLUID HEMATOCRIT (03/14/2017 4:30 PM) Component Value Ref Range Fluid Hematocrit 0.7 % Specimen Performing Laboratory MAIN LAB [address] [place] [address] * GRAM STAIN (03/14/2017 4:30 PM) Component Value Ref Range Battery Name GRAM STAIN Specimen Description PLEURAL FLUID L pleural space Special Requests NONE Gram Stain RARE NEUTROPHILS MANY RBC'S NO ORGANISMS SEEN Report Status FINAL 03/15/2017 Specimen Performing Laboratory Pleural Fluid [facility] [address] [place] [address] * CULTURE-WOUND/TISSUE/FLUID(AEROBIC ONLY)W/SENSITIVITY (03/14/2017 4:30 PM) Component Value Ref Range Battery Name ROUTINE CULTURE Specimen Description PLEURAL FLUID L pleural space Special Requests NONE Direct Gram Stain RARE NEUTROPHILS MANY RBC'S NO ORGANISMS SEEN Culture NO GROWTH 5 DAYS Report Status FINAL 03/19/2017 Specimen Performing Laboratory Pleural Fluid [facility] [address] [place] [address] * PLEURAL FLUID ALBUMIN (03/14/2017 4:30 PM) Component Value Ref Range Pleural Fluid Albumin 2.3Comment: Pleural fluid albumin gradient >1.2 g/ dL g/dL is suggestive of an exudate Specimen Performing Laboratory Pleural Fluid [facility] [address] [place] [address] * PLEURAL FLUID TOTAL BILIRUBIN (03/14/2017 4:30 PM) Component Value Ref Range Pleural Fluid Total 2.4 mg/dL Bilirubin Comment: Pleural fluid to serum bilirubin ratio of 0.6 suggests the presence of an exudate Specimen Performing Laboratory Pleural Fluid MAIN LAB [address] [place] [address] * PLEURAL FLUID GLUCOSE (03/14/2017 4:30 PM) Component Value Ref Range Pleural Fluid Glucose 160 (H) 70 - 100 mg/dL Comment: Glucose <60 mg/dL associated with parapneumonic effusion, tuberculosis, malignancy, empyema, and rheumatoid disease Specimen Performing Laboratory Pleural Fluid MAIN LAB [address] [place] [address] * PLEURAL FLUID LACTATE DEHYDROGENASE (03/14/2017 4:30 PM) Component Value Ref Range Pleural Fluid Lactate 255 (H)Comment: Higher levels suggestive of 67 - 140 U/L Dehydrogenase exudate Specimen Performing Laboratory Pleural Fluid MAIN LAB [address] [place] [address] * PLEURAL FLUID PH (03/14/2017 4:30 PM) Component Value Ref Range Pleural Fluid Ph 7.70 (H) 7.60 - 7.66 Specimen Performing Laboratory Pleural Fluid MAIN [facility] [address] [place] [address] * PLEURAL FLUID TRIGLYCERIDES (03/14/2017 4:30 PM) Component Value Ref Range Pleural Fluid 20 mg/dL Triglycerides Comment: Triglycerides >110 mg/dL is suggestive of a chylothorax. Triglycerides <50 mg/dL is suggestive of pseudochylothorax. Specimen Performing Laboratory Pleural Fluid MAIN [facility] [address] [place] [address] * PLEURAL FLUID TOTAL PROTEIN (03/14/2017 4:30 PM) Component Value Ref Range Pleural Fluid Total 3.8 (H)Comment: Serum to pleural fluid protein <1.1 g/ dL Protein gradient >3.1 g/dL is suggestive of an exudate Specimen Performing Laboratory Pleural Fluid MAIN [facility] [address] [place] [address] * CELL COUNT W/DIFF-FLUIDS (03/14/2017 4:30 PM) Component Value Ref Range White Blood Cells,Fluid 160 /UL Red Blood Cells,Fluid 57029 /UL Segmented Neutrophils, 30 % Fluid Lymphocytes,Fluid [...] Specimen Performing Laboratory Fluid - Pleural Fluid MAIN LAB [address] [place] [address] * POC GLUCOSE (03/14/2017 12:25 PM) Component Value Ref Range Glucose, POC 161 (H) 70 - 100 MG/DL Specimen Performing Laboratory [facility] [address] [place] [address] * HEMODIALYSIS INPATIENT (03/14/2017 10:41 AM) Rose Covarrubias RN 03/14/2017 10:41 AM tubular stock glass bulb machine former in patient's room. Patient sedated and on ventilator, however, opens eyes to commands and moves bilateral upper extremities and right lower extremity to command. Patient moves away from painful stimuli. HD treatment initiated per MD orders using patient's left AVF. AVF (+/+) cannulated without difficulties. Will continue to monitor. With one hour remaining on treatment, machine with technical alarm that was unable to be cleared. Blood returned manually to patient. Machine exchanged. * HEMODIALYSIS DATE (03/14/2017 10:41 AM) Rose Covarrubias RN 03/14/2017 10:41 AM tubular stock glass bulb machine former in patient's room. Patient sedated and on ventilator, however, opens eyes to commands and moves bilateral upper extremities and right lower extremity to command. Patient moves away from painful stimuli. HD treatment initiated per MD orders using patient's left AVF. AVF (+/+) cannulated without difficulties. Will continue to monitor. With one hour remaining on treatment, machine with technical alarm that was unable to be cleared. Blood returned manually to patient. Machine exchanged. * NON-PROJECT MANAGER CYTOLOGY (BODY FLUIDS/TISSUE) (03/14/2017 8:49 AM) Component Value Ref Range Cytology [email or web address] Department of Pathology and Laboratory Medicine [address] [place] [id number] Surgical Pathology Office: [phone] CYTOLOGY REPORT NAME: NAREN MAYFIELD CYTOLOGY #: [id number] MR #: [id number] ALT ID #: BILLING #: [id number] LOCATION: [place] DATE OF PROCEDURE: 03/14/2017 AGE: [...] Berumen MD Resident Cytology Specimen Performing Laboratory LAB RESULTS * POC GLUCOSE (03/14/2017 7:58 AM) Component Value Ref Range Glucose, POC 171 (H) 70 - 100 MG/DL Specimen Performing Laboratory MAIN LAB [address] [place] [address] * BLOOD GASES, ARTERIAL (03/14/2017 5:00 AM) Component Value Ref Range pH-Arterial 7.26 (L) 7.35 - 7.45 pCO2-Arterial 41 35 - 45 MMHG pO2-Arterial 109 (H) 80 - 100 MMHG Base Deficit-Arterial 8.2 MMOL/L O2 Sat-Arterial 98.0 95 - 99 % Qkqjbchlahs-SSV-Ibo 17.8 (L) 21 - 28 MMOL/L Specimen Performing Laboratory Blood, arterial - Blood [facility] [address] [place] [address] * IONIZED CALCIUM (03/14/2017 5:00 AM) Component Value Ref Range Ionized Calcium 1.11 1.0 - 1.3 MMOL/L Specimen Performing Laboratory Blood MAIN LAB [address] [place] [address] * LDH-LACTATE DEHYDROGENASE (03/14/2017 3:15 AM) Component Value Ref Range Lactate Dehydrogenase 225 (H) 100 - 210 U/L Specimen Performing Laboratory MAIN LAB [address] [place] [address] * CHEM 7 ADD ON (03/14/2017 3:15 AM) Component Value Ref Range Total Protein 7.2 6.0 - 8.0 G/DL Total Bilirubin 0.5 0.3 - 1.2 MG/DL Albumin 3.6 3.5 - 5.0 G/DL Alk Phosphatase 71 25 - 110 U/L AST (SGOT) 21 7 - 40 U/L ALT (SGPT) 3 (L) 7 - 56 U/L Specimen Performing Laboratory [facility] [address] [place] [address] * LIPASE (03/14/2017 3:15 AM) Component Value Ref Range Lipase 26 11 - 82 U/L Specimen Performing Laboratory [facility] [address] [place], [place] [id number] * AMYLASE (03/14/2017 3:15 AM) Component Value Ref Range Amylase 115 (H) 24 - 100 U/L Specimen Performing Laboratory [facility] [address] [place], [place] [id number] * LIPID PROFILE (03/14/2017 3:15 AM) Component [...] less than 130 mg/dL. Specimen Performing Laboratory [facility] [address] [place] [address] * PHOSPHORUS (03/14/2017 3:15 AM) Component Value Ref Range Phosphorus 9.1 (H) 2.0 - 4.0 MG/DL Specimen Performing Laboratory Blood [facility] [address] [place] [address] * MAGNESIUM (03/14/2017 3:15 AM) Component Value Ref Range Magnesium 2.7 (H) 1.6 - 2.6 mg/dL Specimen Performing Laboratory Blood MAIN LAB [address] [place], [place] [id number] * BASIC METABOLIC PANEL (03/14/2017 3:15 AM) Component Value Ref Range Sodium 134 (L) 137 - 147 MMOL/L Potassium 4.8 3.5 - 5.1 MMOL/L Chloride 97 (L) 98 - 110 MMOL/L CO2 19 (L) 21 - 30 MMOL/L Anion Gap 18 (H) 3 - 12 Glucose 155 (H) 70 - 100 MG/DL Blood Urea Nitrogen 63 (H) 7 - 25 MG/DL Creatinine 8.63 (H) 0.4 - 1.24 MG/DL Calcium 9.1 8.5 - 10.6 MG/DL eGFR Non 7 (L) >60 mL/min Comment: The eGFR is not validated for use in drug dosing adjustments. Continue to use estimated creatinine clearance per dosing reference text. Please contact the Clinical Pharmacist for questions. eGFR 8 (L) >60 mL/min Comment: The eGFR is not validated for use in drug dosing adjustments. Continue to use estimated creatinine clearance per dosing reference text. Please contact the Clinical Pharmacist for questions. Specimen Performing Laboratory Blood MAIN LAB [address] [place] [id number] * OSMOLALITY (03/14/2017 3:15 AM) Component Value Ref Range Osmolality 312 (H) 280 - 307 MOSMOL/KG Specimen Performing Laboratory Blood MAIN LAB [address] [place] [address] * FIBRINOGEN (03/14/2017 3:15 AM) Component Value Ref Range Fibrinogen 693 (H) 200 - 400 MG/DL Specimen Performing Laboratory Blood MAIN LAB [address] [place] [address] * CBC AND DIFF (03/14/2017 3:15 AM) Component Value Ref Range White Blood Cells 11.0 4.5 - 11.0 K/UL RBC 2.67 (L) 4.4 - 5.5 M/UL Hemoglobin 8.2 (L) 13.5 - 16.5 GM/DL Hematocrit 24.7 (L) 40 - 50 % MCV 92.4 80 - 100 FL MCH 30.5 26 - 34 PG MCHC 33.0 32.0 - 36.0 G/DL RDW 16.7 (H) 11 - 15 % Platelet Count 215 150 - 400 K/UL MPV 8.4 7 - 11 FL Neutrophils 86 (H) 41 - 77 % Lymphocytes 3 (L) 24 - 44 % Monocytes 10 4 - 12 % Eosinophils 1 0 - 5 % Basophils 0 0 - 2 % Absolute Neutrophil Count 9.60 (H) 1.8 - 7.0 K/UL Absolute Lymph Count 0.30 (L) 1.0 - 4.8 K/UL Absolute Monocyte Count 1.00 (H) 0 - 0.80 K/UL Absolute Eosinophil Count 0.10 0 - 0.45 K/UL Absolute Basophil Count 0.00 0 - 0.20 K/UL Specimen Performing Laboratory Blood MAIN LAB [address] [place], [place] [id number] * POC GLUCOSE (03/14/2017 3:11 AM) Component Value Ref Range Glucose, POC 82 70 - 100 MG/DL Specimen Performing Laboratory [facility] [address] [place], [place] [phone] * POC GLUCOSE (03/13/2017 9:40 PM) Component Value Ref Range Glucose, POC 182 (H) 70 - 100 MG/DL Specimen Performing Laboratory [facility] [address] [place], [place] [phone] * POC GLUCOSE (03/13/2017 4:45 PM) Component Value Ref Range Glucose, POC 152 (H) 70 - 100 MG/DL Specimen Performing Laboratory [facility] [address] [place], [place] [phone] * CBC (03/13/2017 4:25 PM) Component Value Ref Range White Blood Cells [...] - 11 FL Specimen Performing Laboratory Blood [facility] [address] [place], [place] [phone] * TEG WITH KAOLIN (03/13/2017 4:25 PM) Component Value Ref Range MA Kaolin 77.7 (H) 50.0 - 70.0 MM R Kaolin 6.1 3.0 - 9.0 MIN RK Kaolin 7.0 4.0 - 12.0 MIN K Kaolin 0.9 (L) 1.0 - 3.0 MIN Angle Kaolin 76.0 (H) 55 - 75 DEG Lysis30 0.0 0.0 - 8.0 % Specimen Performing Laboratory Blood REFERENCE LAB * POC GLUCOSE (03/13/2017 1:16 PM) Component Value Ref Range Glucose, POC 140 (H) 70 - 100 MG/DL Specimen Performing Laboratory [facility] [address] [place] [address] * CT ABD/PELV WO CONTRAST (03/13/2017 12:27 [...] Interface, Radiant Results - 03/13/2017 4:[address] ABDOMEN AND PELVIS Clinical Indication: Male, [...] * TYPE & CROSSMATCH (03/13/2017 10:49 AM) Component Value Ref Range Units Ordered 1 Crossmatch Expires 03/16/2017 Record Check FOUND ABO/RH(D) A POS Antibody Screen NEG Electronic Crossmatch YES Unit Number [id number] Blood Component Type RBC,ADSOL,LEUKO REDUCED Unit Division 0 Status OF Unit TRANSFUSED Transfusion Status OK TO TRANSFUSE Crossmatch Result COMPATIBLE,ELECTRONIC Specimen Performing Laboratory Blood MAIN LAB [address] [place] [address] * C DIFFICILE BY PCR (03/13/2017 10:30 AM) Component Value Ref Range Battery Name C DIFFICILE PCR Specimen Description FECES Special Requests NONE C. Difficile Toxin B PCR NEGATIVE-wait 7 days to repeat test Report Status FINAL 03/14/2017 Specimen Performing Laboratory Feces MAIN LAB [address] [place] [address] * POC GLUCOSE (03/13/2017 10:24 AM) Component Value Ref Range Glucose, POC 152 (H) 70 - 100 MG/DL Specimen Performing Laboratory [facility] [address] [place] [address] * CT BRAIN PERF (03/13/2017 9:04 AM) Specimen Performing Laboratory [facility] RAD RESULTS [...] Interface, Radiant Results - 03/13/2017 9:44 AM INTERVENTIONIST EXAM: CTA HEAD AND CT PERFUSION HISTORY: [...] HEAD WO/W CONTR+POST PRO (03/13/2017 9:04 AM) Specimen Performing Laboratory [facility] RAD RESULTS [...] Interface, Radiant Results - 03/13/2017 9:44 AM INTERVENTIONIST EXAM: CTA HEAD AND CT PERFUSION HISTORY: [...] Lozano M.D. on 03/13/2017 9:14 AM. * BLOOD GASES, ARTERIAL (03/13/2017 8:00 AM) Component Value Ref Range pH-Arterial 7.35 7.35 - 7.45 pCO2-Arterial 40 35 - 45 MMHG pO2-Arterial 112 (H) 80 - 100 MMHG Base Deficit-Arterial 2.9 MMOL/L O2 Sat-Arterial 98.7 95 - 99 % Ieldqilskzn-RES-Rpv 21.9 21 - 28 MMOL/L Specimen Performing Laboratory Blood, arterial - Blood MAIN LAB [address] [place] [address] * BLOOD GASES, ARTERIAL (03/13/2017 3:44 AM) Component Value Ref Range pH-Arterial 7.37 7.35 - 7.45 pCO2-Arterial 42 35 - 45 MMHG pO2-Arterial 99 80 - 100 MMHG Base Deficit-Arterial 1.1 MMOL/L O2 Sat-Arterial 97.3 95 - 99 % Fhdpsaefxho-TTC-Cqt 23.5 21 - 28 MMOL/L Specimen Performing Laboratory Blood, arterial - Blood MAIN LAB [address] [place], [place] [phone] * IONIZED CALCIUM (03/13/2017 3:44 AM) Component Value Ref Range Ionized Calcium 1.11 1.0 - 1.3 MMOL/L Specimen Performing Laboratory Blood MAIN LAB [address] [place] [address] * PHOSPHORUS (03/13/2017 3:44 AM) Component Value Ref Range Phosphorus 6.6 (H) 2.0 - 4.0 MG/DL Specimen Performing Laboratory Blood MAIN LAB [address] [place] [address] * MAGNESIUM (03/13/2017 3:44 AM) Component Value Ref Range Magnesium 2.2 1.6 - 2.6 mg/dL Specimen Performing Laboratory Blood MAIN LAB [address] [place] [address] * CBC AND DIFF (03/13/2017 3:44 AM) Component Value Ref Range White Blood Cells 10.9 4.5 - 11.0 K/UL RBC 2.33 (L) 4.4 - 5.5 M/UL Hemoglobin 7.2 (L) 13.5 - 16.5 GM/DL Hematocrit 21.1 (L) 40 - 50 % MCV 90.7 80 - 100 FL MCH 30.9 26 - 34 PG MCHC 34.1 32.0 - 36.0 G/DL RDW 15.9 (H) 11 - 15 % Platelet Count 168 150 - 400 K/UL MPV 8.4 7 - 11 FL Neutrophils 89 (H) 41 - 77 % Lymphocytes 2 (L) 24 - 44 % Monocytes 8 4 - 12 % Eosinophils 1 0 - 5 % Basophils 0 0 - 2 % Absolute Neutrophil Count 9.80 (H) 1.8 - 7.0 K/UL Absolute Lymph Count 0.20 (L) 1.0 - 4.8 K/UL Absolute Monocyte Count 0.80 0 - 0.80 K/UL Absolute Eosinophil Count 0.10 0 - 0.45 K/UL Absolute Basophil Count 0.00 0 - 0.20 K/UL Specimen Performing Laboratory Blood [facility] [address] [place] [address] * BASIC METABOLIC PANEL (03/13/2017 3:44 AM) Component Value Ref Range Sodium 136 (L) 137 - 147 MMOL/L Potassium 4.4 3.5 - 5.1 MMOL/L Chloride 101 98 - 110 MMOL/L CO2 22 21 - 30 MMOL/L Anion Gap 13 (H) 3 - 12 Glucose 151 (H) 70 - 100 MG/DL Blood Urea Nitrogen 39 (H) 7 - 25 MG/DL Creatinine 6.12 (H) 0.4 - 1.24 MG/DL Calcium 8.3 (L) 8.5 - 10.6 MG/DL eGFR Non 10 (L) >60 mL/min Comment: [...] Performing Laboratory Blood [facility] [address] [place] [address] * POC GLUCOSE (03/13/2017 3:42 AM) Component Value Ref Range Glucose, POC 129 (H) 70 - 100 MG/DL Specimen Performing Laboratory MAIN LAB [address] [place] [address] * POC GLUCOSE (03/12/2017 11:25 PM) Component Value Ref Range Glucose, POC 197 (H) 70 - 100 MG/DL Specimen Performing Laboratory MAIN LAB [address] [place] [address] * POC GLUCOSE (03/12/2017 5:14 PM) Component Value Ref Range Glucose, POC 139 (H) 70 - 100 MG/DL Specimen Performing Laboratory MAIN LAB [address] [place] [address] * HEMODIALYSIS INPATIENT (03/12/2017 4:52 PM) Narrative Vandana Delaney RN 03/12/20174:52 PM 1233- HD tx initiated using pt's L AV lower arm fistula without difficulty. Pt anticipating 3.5 hr tx, on a 3k bath, with 2L net expected fluid removal as tolerated. Will monitor pt closely during tx. 1603- HD tx complete, blood returned, and post VSS. Pt's L AV lower arm fistula de-accessed, pressure held until hemostasis achieved, and new bandages applied to each site. Pt in stable condition and tolerated tx well. Total of 2.5L net expected fluid removed from pt during tx. TENZIN Patel updated on pt. Pt remains in room [id number] at this time. * HEMODIALYSIS DATE (03/12/2017 4:52 PM) Narrative Vandana Delaney RN 03/12/20174:52 PM 1233- HD tx initiated using pt's L AV lower arm fistula without difficulty. Pt anticipating 3.5 hr tx, on a 3k bath, with 2L net expected fluid removal as tolerated. Will monitor pt closely during tx. 1603- HD tx complete, blood returned, and post VSS. Pt's L AV lower arm fistula de-accessed, pressure held until hemostasis achieved, and new bandages applied to each site. Pt in stable condition and tolerated tx well. Total of 2.5L net expected fluid removed from pt during tx. TENZIN Patel updated on pt. Pt remains in room [id number] at this time. * TRANSFUSE RBC'S NON-BLEEDING PT (03/12/2017 1:48 PM) Specimen Performing Laboratory Blood * TRANSFUSE RBC'S NON-BLEEDING PT (03/12/2017 1:48 PM) Specimen Performing Laboratory Blood * POC GLUCOSE (03/12/2017 11:49 AM) Component Value Ref Range Glucose, POC 165 (H) 70 - 100 MG/DL Specimen Performing Laboratory [facility] [address] [place] [address] * ABDOMEN AP ONLY (03/12/2017 11:08 AM) Specimen Performing Laboratory [facility] RAD RESULTS Impressions Interval exchange of enteric catheters. Finalized by Gage Sebastian D.O. on 03/12/2017 11:33 AM. Dictated by Gage Sebastian D.O. on 03/12/2017 11:31 AM. Narrative Supine abdomen CLINICAL HISTORY: Post feeding tube placement COMPARISON: 2 days earlier FINDINGS: Interval exchange of the nasogastric tube for a nasoenteric tube with its tip overlying the region of the gastric outlet. The visualized bowel loops are nondistended. The left lung base remains opacified. Procedure Note Interface, Radiant Results - 03/12/2017 11:36 AM INTERVENTIONIST Supine abdomen CLINICAL HISTORY: Post feeding tube placement COMPARISON: 2 days earlier FINDINGS: Interval exchange of the nasogastric tube for a nasoenteric tube with its tip overlying the region of the gastric outlet. The visualized bowel loops are nondistended. The left lung base remains opacified. IMPRESSION Interval exchange of enteric catheters. Finalized by Gage Sebastian D.O. on 03/12/2017 11:33 AM. Dictated by Gage Sebastian D.O. on 03/12/2017 11:31 AM. * BLOOD GASES, ARTERIAL (03/12/2017 10:14 AM) Component Value Ref Range pH-Arterial 7.33 (L) 7.35 - 7.45 pCO2-Arterial 41 35 - 45 MMHG pO2-Arterial 72 (L) 80 - 100 MMHG Base Deficit-Arterial 4.1 MMOL/L O2 Sat-Arterial 92.3 (L) 95 - 99 % Eezmiagzjpv-GWY-Ocy 20.9 (L) 21 - 28 MMOL/L Specimen Performing Laboratory Blood, arterial - Blood [facility] [address] [place] [address] * ECG-SCAN (03/12/2017 10:05 AM) Narrative Ordered [...] an A1c level <7%. Specimen Performing Laboratory MAIN LAB [address] [place] [address] * BLOOD GASES, ARTERIAL (03/12/2017 3:44 AM) Component Value Ref Range pH-Arterial 7.35 7.35 - 7.45 pCO2-Arterial 42 35 - 45 MMHG pO2-Arterial 132 (H) 80 - 100 MMHG Base Deficit-Arterial 2.1 MMOL/L O2 Sat-Arterial 98.9 95 - 99 % Ohlbnoewghg-TYS-Nsj 22.7 21 - 28 MMOL/L Specimen Performing Laboratory Blood, arterial - Blood MAIN LAB [address] [place] [address] * IONIZED CALCIUM (03/12/2017 3:44 AM) Component Value Ref Range Ionized Calcium 1.14 1.0 - 1.3 MMOL/L Specimen Performing Laboratory Blood MAIN LAB [address] [place] [address] * PHOSPHORUS (03/12/2017 3:44 AM) Component Value Ref Range Phosphorus 8.7 (H) 2.0 - 4.0 MG/DL Specimen Performing Laboratory Blood MAIN LAB [address] [place] [address] * MAGNESIUM (03/12/2017 3:44 AM) Component Value Ref Range Magnesium 2.2 1.6 - 2.6 mg/dL Specimen Performing Laboratory Blood MAIN LAB [address] [place] [address] * CBC AND DIFF (03/12/2017 3:44 AM) Component Value Ref Range White Blood Cells 8.5 4.5 - 11.0 K/UL RBC 2.19 (L) 4.4 - 5.5 M/UL Hemoglobin 6.8 (L) 13.5 - 16.5 GM/DL Hematocrit 19.8 (L) 40 - 50 % MCV 90.2 80 - 100 FL MCH 31.1 26 - 34 PG MCHC 34.4 32.0 - 36.0 G/DL RDW 16.4 (H) 11 - 15 % Platelet Count 138 (L) 150 - 400 K/UL MPV 8.4 7 - 11 FL Neutrophils 87 (H) 41 - 77 % Lymphocytes 3 (L) 24 - 44 % Monocytes 9 4 - 12 % Eosinophils 1 0 - 5 % Basophils 0 0 - 2 % Absolute Neutrophil Count 7.40 (H) 1.8 - 7.0 K/UL Absolute Lymph Count 0.20 (L) 1.0 - 4.8 K/UL Absolute Monocyte Count 0.80 0 - 0.80 K/UL Absolute Eosinophil Count 0.10 0 - 0.45 K/UL Absolute Basophil Count 0.00 0 - 0.20 K/UL Specimen Performing Laboratory Blood [facility] [address] [place] [address] * BASIC METABOLIC PANEL (03/12/2017 3:44 AM) Component Value Ref Range Sodium 135 (L) 137 - 147 MMOL/L Potassium 4.5 3.5 - 5.1 MMOL/L Chloride 101 98 - 110 MMOL/L CO2 21 21 - 30 MMOL/L Anion Gap 13 (H) 3 - 12 Glucose 151 (H) 70 - 100 MG/DL Blood Urea Nitrogen 36 (H) 7 - 25 MG/DL Creatinine 7.24 (H) 0.4 - 1.24 MG/DL Calcium 7.9 (L) 8.5 - 10.6 MG/DL eGFR Non 8 (L) >60 mL/min Comment: The eGFR is not validated for use in drug dosing adjustments. Continue to use estimated creatinine clearance per dosing reference text. Please contact the Clinical Pharmacist for questions. eGFR 10 (L) >60 mL/min Comment: The eGFR is not validated for use in drug dosing adjustments. Continue to use estimated creatinine clearance per dosing reference text. Please contact the Clinical Pharmacist for questions. Specimen Performing Laboratory Blood [facility] [address] [place] [address] * CHEST SINGLE VIEW (03/12/2017 3:40 AM) Specimen Performing Laboratory [facility] RAD RESULTS Impressions 1. Large left pleural effusion with adjacent consolidation. 2. Stable cardiomegaly without pulmonary venous congestion. Approved by Lyly Frazier M.D. on 03/12/2017 9:54 AM By my electronic signature, I attest that I have personally reviewed the images for this examination and formulated the interpretations and opinions expressed in this report Finalized by Ronnie Nice M.D. on 03/12/2017 11:06 AM. Dictated by Lyly Frazier M.D. on 03/12/2017 9:06 AM. Narrative Procedure: CHEST SINGLE VIEW Clinical Indication: Pleural effusion. Comparison: Chest radiograph March 10, 2017 FINDINGS: Single portable supine AP chest radiograph was obtained. Endotracheal tube with tip well above the tiara at the level of the clavicles. Gastric tube courses below the diaphragm and projects out of the qmetl-dh-rnlb. Persistent cardiomegaly without pulmonary venous congestion. Large left pleural effusion with adjacent consolidation. No pneumothorax. Procedure Note Interface, Radiant Results - 03/12/2017 11:09 AM INTERVENTIONIST Procedure: CHEST SINGLE VIEW Clinical Indication: Pleural effusion. Comparison: Chest radiograph March 10, 2017 FINDINGS: Single portable supine AP chest radiograph was obtained. Endotracheal tube with tip well above the tiara at the level of the clavicles. Gastric tube courses below the diaphragm and projects out of the japuq-jf-cbie. Persistent cardiomegaly without pulmonary venous congestion. Large left pleural effusion with adjacent consolidation. No pneumothorax. IMPRESSION 1. Large left pleural effusion with adjacent consolidation. 2. Stable cardiomegaly without pulmonary venous congestion. Approved by Lyly Frazier M.D. on 03/12/2017 9:54 AM By my electronic signature, I attest that I have personally reviewed the images for this examination and formulated the interpretations and opinions expressed in this report Finalized by Ronnie Nice M.D. on 03/12/2017 11:06 AM. Dictated by Lyly Frazier M.D. on 03/12/2017 9:06 AM. * CT HEAD WO CONTRAST (03/11/2017 4:08 PM) Specimen Performing Laboratory [facility] RESULTS Impressions 1. Interval right pterional craniectomy and epidural hematoma evacuation with mild transcranial herniation and resolution of midline shift. 2. Prior right MCA bifurcation aneurysm clipping. 3. Stable mild right perisylvian subarachnoid hemorrhage and trace intraventricular blood products. 4. Persistent nonspecific white matter disease, likely related to chronic microvascular ischemia. Finalized by Juan Carlos Lozano M.D. on 03/11/2017 5:00 PM. Dictated by Juan Carlos Lozano M.D. on 03/11/2017 4:34 PM. 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 Epidural drain in place., TECHNIQUE: Multiple contiguous axial images were obtained of the brain without intravenous contrast. COMPARISON: CT head March 09, 2017 and CTA head March 10, 2017 FINDINGS: Dr. Juan Carlos Lozano M.D. has personally reviewed these images and formulated the interpretations and opinions expressed in this report. Interval right pterional craniectomy and epidural hematoma evacuation, status post prior right MCA bifurcation aneurysm clipping. Indwelling right pterional scalp surgical drain. There is mild transcranial herniation at the craniectomy site with resolution of right to left midline shift. Basal cisterns are patent. Persistent mild subarachnoid hemorrhage within the right sylvian fissure and trace intraventricular blood products in the occipital horns. No new intracranial hemorrhage is identified. Patchy areas of hypodensity throughout the supratentorial white matter consistent with persistent moderate nonspecific white matter disease. Byrd-white matter interfaces are grossly preserved. Ventricles remain nondistended. Procedure Note Interface, Radiant Results - 03/11/2017 5:03 PM INTERVENTIONIST EXAM: CT HEAD HISTORY: , craniectomy last PM after aneurysm clipping. Epidural drain in place., TECHNIQUE: Multiple contiguous axial images were obtained of the brain without intravenous contrast. COMPARISON: CT head March 09, 2017 and CTA head March 10, 2017 FINDINGS: Dr. Juan Carlos Lozano M.D. has personally reviewed these images and formulated the interpretations and opinions expressed in this report. Interval right pterional craniectomy and epidural hematoma evacuation, status post prior right MCA bifurcation aneurysm clipping. Indwelling right pterional scalp surgical drain. There is mild transcranial herniation at the craniectomy site with resolution of right to left midline shift. Basal cisterns are patent. Persistent mild subarachnoid hemorrhage within the right sylvian fissure and trace intraventricular blood products in the occipital horns. No new intracranial hemorrhage is identified. Patchy areas of hypodensity throughout the supratentorial white matter consistent with persistent moderate nonspecific white matter disease. Byrd-white matter interfaces are grossly preserved. Ventricles remain nondistended. IMPRESSION 1. Interval right pterional craniectomy and epidural hematoma evacuation with mild transcranial herniation and resolution of midline shift. 2. Prior right MCA bifurcation aneurysm clipping. 3. Stable mild right perisylvian subarachnoid hemorrhage and trace intraventricular blood products. 4. Persistent nonspecific white matter disease, likely related to chronic microvascular ischemia. Finalized by Juan Carlos Lozano M.D. on 03/11/2017 5:00 PM. Dictated by Juan Carlos Lozano M.D. on 03/11/2017 4:34 PM. * 2-D + DOPPLER ECHOCARDIOGRAM (03/11/2017 3:28 PM) Component Value Ref Range BSA 2.35 m2 CV ECHO PV MEDICAL ADMINISTRATIVE TECHNICIAN TENZIN Anand LVIDD 5.9 4.2 - 5.9 [...] of shunting by saline bubble injection * HEMODIALYSIS INPATIENT (03/11/2017 2:41 PM) Narrative Bialee Gann RN 03/11/20172:41 PM 0900 Arrived in [facility] to set up for dialysis. Assessment completed and documented. Care of pt, respirator and all lines remains with his primary SUPERVISOR LAMP SHADESTENZIN Jean. Left AVF assessed and found to still have dialysis needles from last dialysis treatment (03/09/17 outside facility) in place. Area around needles noted to have old bloody drainage under transparent dressing. Dressing and needles removed, hemostasis achieved and skin around AVF cleaned. 1000 Left AVF accessed with new 15 gauge needles without difficulty. Dialysis treatment started with a planned duration of 3.5 hours and a UF goal of 3 liters of fluid. 1045 Dr Mitchell at bedside. Requested length of dialysis to be increased to 4 hours and UF goal be increased to 4 liters. 1400 Dialysis treatment completed. Pt tolerated well. Blood returned and needles removed from left AVF, hemostasis achieved and area covered with dry gauze and paper tape. Report given to primary SUPERVISOR LAMP SHADESTENZIN Jean. * TROPONIN-I (03/11/2017 8:43 AM) Component Value Ref Range Troponin-I 0.17 (H) 0.0 - 0.05 NG/ML Specimen Performing Laboratory [facility] [address] [place] [address] * TROPONIN-I (03/11/2017 6:07 AM) Component Value Ref Range Troponin-I 0.16 (H) 0.0 - 0.05 NG/ML Specimen Performing Laboratory [facility] [address] [place] [address] * IONIZED CALCIUM (03/11/2017 3:55 AM) Component Value Ref Range Ionized Calcium 1.05 1.0 - 1.3 MMOL/L Specimen Performing Laboratory [facility] [address] [place] [address] * TROPONIN-I (03/11/2017 3:55 AM) Component Value Ref Range Troponin-I 0.15 (H) 0.0 - 0.05 NG/ML Specimen Performing Laboratory [facility] [address] [place] [address] * BLOOD GASES, ARTERIAL (03/11/2017 3:55 AM) Component Value Ref Range pH-Arterial 7.36 7.35 - 7.45 pCO2-Arterial 41 35 - 45 MMHG pO2-Arterial 135 (H) 80 - 100 MMHG Base Deficit-Arterial 2.3 MMOL/L O2 Sat-Arterial 99.2 (H) 95 - 99 % Ogsiwzqcfnh-[id number]-Hpd 22.5 21 - 28 MMOL/L Specimen Performing Laboratory Blood, arterial - Blood [facility] [address] [place] [address] * PHOSPHORUS (03/11/2017 3:55 AM) Component Value Ref Range Phosphorus 9.1 (H) 2.0 - 4.0 MG/DL Specimen Performing Laboratory [facility] [address] [place] [address] * MAGNESIUM (03/11/2017 3:55 AM) Component Value Ref Range Magnesium 2.1 1.6 - 2.6 mg/dL Specimen Performing Laboratory [facility] [address] [place] [address] * CBC AND DIFF (03/11/2017 3:55 AM) Component Value Ref Range White Blood Cells 8.2 4.5 - 11.0 K/UL RBC 2.48 (L) 4.4 - 5.5 M/UL Hemoglobin 7.5 (L) 13.5 - 16.5 GM/DL Hematocrit 22.6 (L) 40 - 50 % MCV 91.1 80 - 100 FL MCH 30.2 26 - 34 PG MCHC 33.2 32.0 - 36.0 G/DL RDW 16.3 (H) 11 - 15 % Platelet Count 159 150 - 400 K/UL MPV 8.5 7 - 11 FL Neutrophils 89 (H) 41 - 77 % Lymphocytes 4 (L) 24 - 44 % Monocytes 7 4 - 12 % Eosinophils 0 0 - 5 % Basophils 0 0 - 2 % Absolute Neutrophil Count 7.20 (H) 1.8 - 7.0 K/UL Absolute Lymph Count 0.30 (L) 1.0 - 4.8 K/UL Absolute Monocyte Count 0.60 0 - 0.80 K/UL Absolute Eosinophil Count 0.00 0 - 0.45 K/UL Absolute Basophil Count 0.00 0 - 0.20 K/UL Specimen Performing Laboratory [facility] [address] [place] [address] * BASIC METABOLIC PANEL (03/11/2017 3:55 AM) Component Value Ref Range Sodium 135 (L) 137 - 147 MMOL/L Potassium 4.0 3.5 - 5.1 MMOL/L Chloride 101 98 - 110 MMOL/L CO2 20 (L) 21 - 30 MMOL/L Anion Gap 14 (H) 3 - 12 Glucose 100 70 - 100 MG/DL Blood Urea Nitrogen 45 (H) 7 - 25 MG/DL Creatinine 8.60 (H) 0.4 - 1.24 MG/DL Calcium 7.6 (L) 8.5 - 10.6 MG/DL eGFR Non 7 (L) >60 mL/min Comment: The eGFR is not validated for use in drug dosing adjustments. Continue to use estimated creatinine clearance per dosing reference text. Please contact the Clinical Pharmacist for questions. eGFR 8 (L) >60 mL/min Comment: The eGFR is not validated for use in drug dosing adjustments. Continue to use estimated creatinine clearance per dosing reference text. Please contact the Clinical Pharmacist for questions. Specimen Performing Laboratory [facility] [address] [place] [address] * TROPONIN-I (03/11/2017 12:50 AM) Component Value Ref Range Troponin-I 0.13 (H) 0.0 - 0.05 NG/ML Specimen Performing Laboratory [facility] [address] [place] [address] * BLOOD GASES, ARTERIAL (03/11/2017 12:50 AM) Component Value Ref Range pH-Arterial 7.36 7.35 - 7.45 pCO2-Arterial 41 35 - 45 MMHG pO2-Arterial 140 (H) 80 - 100 MMHG Base Deficit-Arterial 2.1 MMOL/L O2 Sat-Arterial 99.3 (H) 95 - 99 % Uajctymxrcm-SDX-Jdr 22.7 21 - 28 MMOL/L Specimen Performing Laboratory Blood, arterial - [facility] [address] [place] [address] * FLUORO MOBILE IN OR (03/10/2017 10:18 [...] angiography is performed to evaluate the vasculature. AGRICULTURAL EQUIPMENT OPERATOR. Rohit LOTTERY MANAGER. David PGY-6 PROCEDURE. 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 Patient required emergent reoperation for neurologic change. CT perfusion demonstrates prolonged mean transit times involving the inferior division of the right MCA. Intraoperative angiography is performed to evaluate the vasculature. AGRICULTURAL EQUIPMENT OPERATOR. Rohit LOTTERY MANAGER. David PGY-6 PROCEDURE. Intraoperative angiography right internal [...] Bee M.D. on 03/26/2017 2:57 PM. * HEMODIALYSIS DATE (03/10/2017 9:16 PM) Narrative Dharmesh Navarro RN 03/10/20179:16 PM Arrived on unit and contacted unit nurse for patient at 2014 pm. Patient had cranial bleed and sent to CT and then to OR for second time.Home Care Liaison contacted and said patient may be done the next morning.Unit nurse also said patient may still have needles from outpatient dialysis unit in fistula. Patient already in OR. * POC IONIZED CALCIUM (03/10/2017 9:03 PM) Component Value Ref Range Ionized Calcium-POC 0.98 (L) 1.0 - 1.3 MMOL/L Specimen Performing Laboratory [facility] [address] [place] [address] * POC SODIUM (03/10/2017 9:03 PM) Component Value Ref Range Sodium-POC 134 (L) 137 - 147 MMOL/L Specimen Performing Laboratory [facility] [address] [place] [address] * POC POTASSIUM (03/10/2017 9:03 PM) Component Value Ref Range Potassium-POC 4.0 3.5 - 5.1 MMOL/L Specimen Performing Laboratory [facility] [address] [place] [address] * POC HEMATOCRIT (03/10/2017 9:03 PM) Component Value Ref Range Hemoglobin POC 9.5 (L) 13.5 - 16.5 GM/DL Hematocrit POC 28.0 (L) 40 - 50 % Specimen Performing Laboratory [facility] [address] [place] [address] * POC BLOOD GAS ARTERIAL (03/10/2017 9:03 PM) Component Value Ref Range PH-ART-POC 7.34 (L) 7.35 - 7.45 [id number]-[id number] 44 35 - 45 MMHG PO2-ART-POC 69 (L) 80 - 100 MMHG Base Def-ART-POC 2.0 MMOL/L O2 Sat-ART-POC 92.0 (L) 95 - 99 % Ypslnmuvyfv-PHL-BSL 23.7 21 - 28 MMOL/L Specimen Performing Laboratory [facility] [address] [place] [address] * TROPONIN-I (03/10/2017 8:50 PM) Component Value Ref Range Troponin-I 0.16 (H) 0.0 - 0.05 NG/ML Specimen Performing Laboratory [facility] [address] [place] [address] * PHOSPHORUS (03/10/2017 8:50 PM) Component Value Ref Range Phosphorus 8.1 (H) 2.0 - 4.0 MG/DL Specimen Performing Laboratory [facility] [address] [place] [address] * CBC (03/10/2017 8:50 PM) Component Value Ref Range White Blood Cells 9.0 4.5 - 11.0 K/UL RBC 3.00 (L) 4.4 - 5.5 M/UL Hemoglobin 9.1 (L) 13.5 - 16.5 GM/DL Hematocrit 27.7 (L) 40 - 50 % MCV 92.1 80 - 100 FL MCH 30.4 26 - 34 PG MCHC 33.0 32.0 - 36.0 G/DL RDW 16.5 (H) 11 - 15 % Platelet Count 157 150 - 400 K/UL MPV 8.8 7 - 11 FL Specimen Performing Laboratory [facility] [address] [place] [address] * BASIC METABOLIC PANEL (03/10/2017 8:50 PM) Component Value Ref Range Sodium 133 (L) 137 - 147 MMOL/L Potassium 4.1 3.5 - 5.1 MMOL/L Chloride 98 98 - 110 MMOL/L CO2 21 21 - 30 MMOL/L Anion Gap 14 (H) 3 - 12 Glucose 101 (H) 70 - 100 MG/DL Blood Urea Nitrogen 43 (H) 7 - 25 MG/DL Creatinine 8.05 (H) 0.4 - 1.24 MG/DL Calcium 8.2 (L) 8.5 - 10.6 MG/DL eGFR Non 7 (L) >60 mL/min Comment: The eGFR is not validated for use in drug dosing adjustments. Continue to use estimated creatinine clearance per dosing reference text. Please contact the Clinical Pharmacist for questions. eGFR 9 (L) >60 mL/min Comment: The eGFR is not validated for use in drug dosing adjustments. Continue to use estimated creatinine clearance per dosing reference text. Please contact the Clinical Pharmacist for questions. Specimen Performing Laboratory [facility] [address] [place] [address] * PTT (APTT) (03/10/2017 8:50 PM) Component Value Ref Range APTT 29.8Comment: NOTE NEW REFERENCE RANGES 21.0 - 39.0 SEC Specimen Performing Laboratory [facility] [address] [place] [address] * PROTIME INR (PT) (03/10/2017 8:50 PM) Component Value Ref Range INR 1.3 (H) 0.8 - 1.2 Specimen Performing Laboratory [facility] [address] [place] [address] * CT BRAIN PERF (03/10/2017 8:35 PM) Specimen Performing Laboratory [facility] RESULTS Impressions CTA head: 1.Interval right pterional craniotomy for MCA bifurcation clipping and evacuation of temporal hematoma. Development of right epidural hemorrhage causing effacement of the right lateral ventricle, leftward subfalcine herniation, and mild right uncal herniation. Slight asymmetric distention of the left lateral ventricle may represent early entrapment. 2.Loss of byrd-white matter interface within the anterolateral right temporal lobe compatible with infarct. 3.No significant residual aneurysm identified at the clipping site. Decrease in size of temporal tip hematoma following evacuation. 4.Additional new subgaleal and right sylvian fissure hemorrhage. Redemonstration of scattered subarachnoid hemorrhage and trace dependent intraventricular hemorrhage within the left occipital horn. 5.Luminal irregularity and mildly decreased caliber of the ascending proximal right M2 branches which may represent mild vasospasm or reactive change. No discrete branch vessel occlusion is identified to account for the right temporal infarct. 6.Diffuse supratentorial sulcal effacement compatible with cerebral edema. CT perfusion: 1.Small completed infarct in the anterolateral right temporal lobe with surrounding tissue at risk involving the lateral right occipitotemporal region. 2.Symmetric perfusion to the high MCA territories without evidence of significant vasospasm of the right M2 branches. Findings discussed via telephone with Justin Sebastian of neurosurgery at 9: 50 PM 03/10/2017. By my electronic signature, I attest that I have personally reviewed the images for this examination and formulated the interpretations and opinions expressed in this report Finalized by Dillon Maldonado M.D. on 03/10/2017 9:53 PM. Dictated by Miguel Angel Kim M.D. on 03/10/2017 9:19 PM. Narrative EXAM: CTA HEAD AND NECK, CTA BRAIN PERFUSION HISTORY: 51-year-old male. Neurological change. Cerebral aneurysm status post surgery. Subarachnoid hemorrhage. TECHNIQUE: Multiple contiguous axial images were obtained of the brain following the administration of Isovue-370IV contrast. CTA maximum density projection images were obtained of the brain and neck with image post processing.Perfusion imaging was also obtained with CBV, MTT, TTD, and CBF mapping. COMPARISON: CTA head previous day FINDINGS: CTA head: There has been interval right pterional craniotomy for clipping of previously noted large right MCA bifurcation aneurysm. Bifrontal pneumocephalus is noted. Development of epidural hemorrhage measuring to 1.5 cm in thickness (series 2 image 19). There is leftward subfalcine herniation measuring up to 1.1 cm ( series 2 image 17). Mild right uncal herniation. There is slightly increased asymmetric distention of the left lateral ventricle. Diffuse supratentorial sulcal effacement with crowding of the suprasellar cistern. New subarachnoid hemorrhage along the anterior right sylvian fissure. Scattered subarachnoid hemorrhage along the right convexity is similar to prior. Trace amount of blood products again noted within the occipital horn of the left lateral ventricle. Decrease in size of the hematoma in the right temporal tip adjacent to the aneurysm clip with a few foci of gas compatible with interval evacuation. Mild surrounding edema is again noted. Development of loss of byrd- white matter interface within the right anterior and lateral temporal lobe. Subgaleal and subcutaneous hemorrhage in the right scalp. There is a postoperative surgical drain within the subgaleal hemorrhage. Surgical andria are noted along the right frontoparietal scalp. An endotracheal tube is in place.There is mild mucosal thickening of the left maxillary sinus with patchy ethmoid opacities. The distal internal carotid, vertebral, and basilar arteries are patent without focal narrowing or occlusion. 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 No definite residual aneurysm is visualized at the clipping site. The M2 branches which originate near the base of the aneurysm demonstrate mild luminal irregularity and decreased caliber proximally, although , the high distal MCA vascular territory is well opacified. There is relative oligemia in the right temporal lobe in comparison to the left, although, no discrete branch vessel occlusion is identified. The anterior and posterior cerebral arteries are patent without focal narrowing. CT Perfusion: There is a small area of matched perfusion defect within the right anterior and lateral temporal lobe compatible with completed infarct, corresponding with the area of byrd-white loss. There is surrounding mismatched perfusion throughout the lateral right occipitotemporal region compatible with tissue at risk. No significant decreased blood flow or increased mean transit time in the high right MCA territory to suggest significant vasospasm. Procedure Note Interface, Radiant Results - 03/10/2017 9:56 PM INTERVENTIONIST EXAM: CTA HEAD AND NECK, CTA BRAIN PERFUSION HISTORY: 51-year-old male. Neurological change. Cerebral aneurysm status post surgery. Subarachnoid hemorrhage. TECHNIQUE: Multiple contiguous axial images were obtained of the brain following the administration of Isovue-370 IV contrast. CTA maximum density projection images were obtained of the brain and neck with image post processing. Perfusion imaging was also obtained with CBV, MTT, TTD, and CBF mapping. COMPARISON: CTA head previous day FINDINGS: CTA head: There has been interval right pterional craniotomy for clipping of previously noted large right MCA bifurcation aneurysm. Bifrontal pneumocephalus is noted. Development of epidural hemorrhage measuring to 1.5 cm in thickness (series 2 image 19). There is leftward subfalcine herniation measuring up to 1.1 cm ( series 2 image 17). Mild right uncal herniation. There is slightly increased asymmetric distention of the left lateral ventricle. Diffuse supratentorial sulcal effacement with crowding of the suprasellar cistern. New subarachnoid hemorrhage along the anterior right sylvian fissure. Scattered subarachnoid hemorrhage along the right convexity is similar to prior. Trace amount of blood products again noted within the occipital horn of the left lateral ventricle. Decrease in size of the hematoma in the right temporal tip adjacent to the aneurysm clip with a few foci of gas compatible with interval evacuation. Mild surrounding edema is again noted. Development of loss of byrd- white matter interface within the right anterior and lateral temporal lobe. Subgaleal and subcutaneous hemorrhage in the right scalp. There is a postoperative surgical drain within the subgaleal hemorrhage. Surgical andria are noted along the right frontoparietal scalp. An endotracheal tube is in place.There is mild mucosal thickening of the left maxillary sinus with patchy ethmoid opacities. The distal internal carotid, vertebral, and basilar arteries are patent without focal narrowing or occlusion. 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 No definite residual aneurysm is visualized at the clipping site. The M2 branches which originate near the base of the aneurysm demonstrate mild luminal irregularity and decreased caliber proximally, although , the high distal MCA vascular territory is well opacified. There is relative oligemia in the right temporal lobe in comparison to the left, although, no discrete branch vessel occlusion is identified. The anterior and posterior cerebral arteries are patent without focal narrowing. CT Perfusion: There is a small area of matched perfusion defect within the right anterior and lateral temporal lobe compatible with completed infarct, corresponding with the area of byrd-white loss. There is surrounding mismatched perfusion throughout the lateral right occipitotemporal region compatible with tissue at risk. No significant decreased blood flow or increased mean transit time in the high right MCA territory to suggest significant vasospasm. IMPRESSION CTA head: 1. Interval right pterional craniotomy for MCA bifurcation clipping and evacuation of temporal hematoma. Development of right epidural hemorrhage causing effacement of the right lateral ventricle, leftward subfalcine herniation, and mild right uncal herniation. Slight asymmetric distention of the left lateral ventricle may represent early entrapment. 2. Loss of byrd-white matter interface within the anterolateral right temporal lobe compatible with infarct. 3. No significant residual aneurysm identified at the clipping site. Decrease in size of temporal tip hematoma following evacuation. 4. Additional new subgaleal and right sylvian fissure hemorrhage. Redemonstration of scattered subarachnoid hemorrhage and trace dependent intraventricular hemorrhage within the left occipital horn. 5. Luminal irregularity and mildly decreased caliber of the ascending proximal right M2 branches which may represent mild vasospasm or reactive change. No discrete branch vessel occlusion is identified to account for the right temporal infarct. 6. Diffuse supratentorial sulcal effacement compatible with cerebral edema. CT perfusion: 1. Small completed infarct in the anterolateral right temporal lobe with surrounding tissue at risk involving the lateral right occipitotemporal region. 2. Symmetric perfusion to the high MCA territories without evidence of significant vasospasm of the right M2 branches. Findings discussed via telephone with Justin Sebastian of neurosurgery at 9: 50 PM 03/10/2017. By my electronic signature, I attest that I have personally reviewed the images for this examination and formulated the interpretations and opinions expressed in this report Finalized by Dillon Maldonado M.D. on 03/10/2017 9:53 PM. Dictated by Miguel Angel Kim M.D. on 03/10/2017 9:19 PM. * CTA HEAD WO/W CONTR+POST PRO (03/10/2017 8:35 PM) Specimen Performing Laboratory [facility] RESULTS Impressions CTA head: 1.Interval right pterional craniotomy for MCA bifurcation clipping and evacuation of temporal hematoma. Development of right epidural hemorrhage causing effacement of the right lateral ventricle, leftward subfalcine herniation, and mild right uncal herniation. Slight asymmetric distention of the left lateral ventricle may represent early entrapment. 2.Loss of byrd-white matter interface within the anterolateral right temporal lobe compatible with infarct. 3.No significant residual aneurysm identified at the clipping site. Decrease in size of temporal tip hematoma following evacuation. 4.Additional new subgaleal and right sylvian fissure hemorrhage. Redemonstration of scattered subarachnoid hemorrhage and trace dependent intraventricular hemorrhage within the left occipital horn. 5.Luminal irregularity and mildly decreased caliber of the ascending proximal right M2 branches which may represent mild vasospasm or reactive change. No discrete branch vessel occlusion is identified to account for the right temporal infarct. 6.Diffuse supratentorial sulcal effacement compatible with cerebral edema. CT perfusion: 1.Small completed infarct in the anterolateral right temporal lobe with surrounding tissue at risk involving the lateral right occipitotemporal region. 2.Symmetric perfusion to the high MCA territories without evidence of significant vasospasm of the right M2 branches. Findings discussed via telephone with Justin Sebastian of neurosurgery at 9: 50 PM 03/10/2017. By my electronic signature, I attest that I have personally reviewed the images for this examination and formulated the interpretations and opinions expressed in this report Finalized by Dillon Maldonado M.D. on 03/10/2017 9:53 PM. Dictated by Miguel Angel Kim M.D. on 03/10/2017 9:19 PM. Narrative EXAM: CTA HEAD AND NECK, CTA BRAIN PERFUSION HISTORY: 51-year-old male. Neurological change. Cerebral aneurysm status post surgery. Subarachnoid hemorrhage. TECHNIQUE: Multiple contiguous axial images were obtained of the brain following the administration of Isovue-370IV contrast. CTA maximum density projection images were obtained of the brain and neck with image post processing.Perfusion imaging was also obtained with CBV, MTT, TTD, and CBF mapping. COMPARISON: CTA head previous day FINDINGS: CTA head: There has been interval right pterional craniotomy for clipping of previously noted large right MCA bifurcation aneurysm. Bifrontal pneumocephalus is noted. Development of epidural hemorrhage measuring to 1.5 cm in thickness (series 2 image 19). There is leftward subfalcine herniation measuring up to 1.1 cm ( series 2 image 17). Mild right uncal herniation. There is slightly increased asymmetric distention of the left lateral ventricle. Diffuse supratentorial sulcal effacement with crowding of the suprasellar cistern. New subarachnoid hemorrhage along the anterior right sylvian fissure. Scattered subarachnoid hemorrhage along the right convexity is similar to prior. Trace amount of blood products again noted within the occipital horn of the left lateral ventricle. Decrease in size of the hematoma in the right temporal tip adjacent to the aneurysm clip with a few foci of gas compatible with interval evacuation. Mild surrounding edema is again noted. Development of loss of byrd- white matter interface within the right anterior and lateral temporal lobe. Subgaleal and subcutaneous hemorrhage in the right scalp. There is a postoperative surgical drain within the subgaleal hemorrhage. Surgical andria are noted along the right frontoparietal scalp. An endotracheal tube is in place.There is mild mucosal thickening of the left maxillary sinus with patchy ethmoid opacities. The distal internal carotid, vertebral, and basilar arteries are patent without focal narrowing or occlusion. 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 No definite residual aneurysm is visualized at the clipping site. The M2 branches which originate near the base of the aneurysm demonstrate mild luminal irregularity and decreased caliber proximally, although , the high distal MCA vascular territory is well opacified. There is relative oligemia in the right temporal lobe in comparison to the left, although, no discrete branch vessel occlusion is identified. The anterior and posterior cerebral arteries are patent without focal narrowing. CT Perfusion: There is a small area of matched perfusion defect within the right anterior and lateral temporal lobe compatible with completed infarct, corresponding with the area of byrd-white loss. There is surrounding mismatched perfusion throughout the lateral right occipitotemporal region compatible with tissue at risk. No significant decreased blood flow or increased mean transit time in the high right MCA territory to suggest significant vasospasm. Procedure Note Interface, Radiant Results - 03/10/2017 9:56 PM INTERVENTIONIST EXAM: CTA HEAD AND NECK, CTA BRAIN PERFUSION HISTORY: 51-year-old male. Neurological change. Cerebral aneurysm status post surgery. Subarachnoid hemorrhage. TECHNIQUE: Multiple contiguous axial images were obtained of the brain following the administration of Isovue-370 IV contrast. CTA maximum density projection images were obtained of the brain and neck with image post processing. Perfusion imaging was also obtained with CBV, MTT, TTD, and CBF mapping. COMPARISON: CTA head previous day FINDINGS: CTA head: There has been interval right pterional craniotomy for clipping of previously noted large right MCA bifurcation aneurysm. Bifrontal pneumocephalus is noted. Development of epidural hemorrhage measuring to 1.5 cm in thickness (series 2 image 19). There is leftward subfalcine herniation measuring up to 1.1 cm ( series 2 image 17). Mild right uncal herniation. There is slightly increased asymmetric distention of the left lateral ventricle. Diffuse supratentorial sulcal effacement with crowding of the suprasellar cistern. New subarachnoid hemorrhage along the anterior right sylvian fissure. Scattered subarachnoid hemorrhage along the right convexity is similar to prior. Trace amount of blood products again noted within the occipital horn of the left lateral ventricle. Decrease in size of the hematoma in the right temporal tip adjacent to the aneurysm clip with a few foci of gas compatible with interval evacuation. Mild surrounding edema is again noted. Development of loss of byrd- white matter interface within the right anterior and lateral temporal lobe. Subgaleal and subcutaneous hemorrhage in the right scalp. There is a postoperative surgical drain within the subgaleal hemorrhage. Surgical andria are noted along the right frontoparietal scalp. An endotracheal tube is in place.There is mild mucosal thickening of the left maxillary sinus with patchy ethmoid opacities. The distal internal carotid, vertebral, and basilar arteries are patent without focal narrowing or occlusion. 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 No definite residual aneurysm is visualized at the clipping site. The M2 branches which originate near the base of the aneurysm demonstrate mild luminal irregularity and decreased caliber proximally, although , the high distal MCA vascular territory is well opacified. There is relative oligemia in the right temporal lobe in comparison to the left, although, no discrete branch vessel occlusion is identified. The anterior and posterior cerebral arteries are patent without focal narrowing. CT Perfusion: There is a small area of matched perfusion defect within the right anterior and lateral temporal lobe compatible with completed infarct, corresponding with the area of byrd-white loss. There is surrounding mismatched perfusion throughout the lateral right occipitotemporal region compatible with tissue at risk. No significant decreased blood flow or increased mean transit time in the high right MCA territory to suggest significant vasospasm. IMPRESSION CTA head: 1. Interval right pterional craniotomy for MCA bifurcation clipping and evacuation of temporal hematoma. Development of right epidural hemorrhage causing effacement of the right lateral ventricle, leftward subfalcine herniation, and mild right uncal herniation. Slight asymmetric distention of the left lateral ventricle may represent early entrapment. 2. Loss of byrd-white matter interface within the anterolateral right temporal lobe compatible with infarct. 3. No significant residual aneurysm identified at the clipping site. Decrease in size of temporal tip hematoma following evacuation. 4. Additional new subgaleal and right sylvian fissure hemorrhage. Redemonstration of scattered subarachnoid hemorrhage and trace dependent intraventricular hemorrhage within the left occipital horn. 5. Luminal irregularity and mildly decreased caliber of the ascending proximal right M2 branches which may represent mild vasospasm or reactive change. No discrete branch vessel occlusion is identified to account for the right temporal infarct. 6. Diffuse supratentorial sulcal effacement compatible with cerebral edema. CT perfusion: 1. Small completed infarct in the anterolateral right temporal lobe with surrounding tissue at risk involving the lateral right occipitotemporal region. 2. Symmetric perfusion to the high MCA territories without evidence of significant vasospasm of the right M2 branches. Findings discussed via telephone with Justin Sebastian of neurosurgery at 9: 50 PM 03/10/2017. By my electronic signature, I attest that I have personally reviewed the images for this examination and formulated the interpretations and opinions expressed in this report Finalized by Dillon Maldonado M.D. on 03/10/2017 9:53 PM. Dictated by Miguel Angel Kim M.D. on 03/10/2017 9:19 PM. * POC IONIZED CALCIUM (03/10/2017 5:00 PM) Component Value Ref Range Ionized Calcium-POC 0.97 (L) 1.0 - 1.3 MMOL/L Specimen Performing Laboratory [facility] [address] [place] [address] * POC SODIUM (03/10/2017 5:00 PM) Component Value Ref Range Sodium-POC 135 (L) 137 - 147 MMOL/L Specimen Performing Laboratory [facility] [address] [place] [address] * POC POTASSIUM (03/10/2017 5:00 PM) Component Value Ref Range Potassium-POC 4.0 3.5 - 5.1 MMOL/L Specimen Performing Laboratory [facility] [address] [place] [address] * POC HEMATOCRIT (03/10/2017 5:00 PM) Component Value Ref Range Hemoglobin POC 8.5 (L) 13.5 - 16.5 GM/DL Hematocrit POC 25.0 (L) 40 - 50 % Specimen Performing Laboratory [facility] [address] [place] [address] * POC BLOOD GAS ARTERIAL (03/10/2017 5:00 PM) Component Value Ref Range PH-ART-POC 7.40 7.35 - 7.45 [id number] 37 35 - 45 MMHG PO2-ART-POC 76 (L) 80 - 100 MMHG Base Def-ART-POC 2.0 MMOL/L O2 Sat-ART-POC 95.0 95 - 99 % Jdjnfrwlazw-CYH-SIY 23.0 21 - 28 MMOL/L Specimen Performing Laboratory [facility] [address] [place] [address] * POC IONIZED CALCIUM (03/10/2017 2:30 PM) Component Value Ref Range Ionized Calcium-POC 0.97 (L) 1.0 - 1.3 MMOL/L Specimen Performing Laboratory [facility] [address] [place] [address] * POC SODIUM (03/10/2017 2:30 PM) Component Value Ref Range Sodium-POC 135 (L) 137 - 147 MMOL/L Specimen Performing Laboratory [facility] [address] [place] [address] * POC POTASSIUM (03/10/2017 2:30 PM) Component Value Ref Range Potassium-POC 4.0 3.5 - 5.1 MMOL/L Specimen Performing Laboratory [facility] [address] [place] [address] * POC HEMATOCRIT (03/10/2017 2:30 PM) Component Value Ref Range Hemoglobin POC 8.8 (L) 13.5 - 16.5 GM/DL Hematocrit POC 26.0 (L) 40 - 50 % Specimen Performing Laboratory [facility] [address] [place] [address] * POC BLOOD GAS ARTERIAL (03/10/2017 2:30 PM) Component Value Ref Range PH-ART-POC 7.42 7.35 - 7.45 [id number] 37 35 - 45 MMHG PO2-ART-POC 72 (L) 80 - 100 MMHG Base Ex-ART-POC 0.0 MMOL/L O2 Sat-ART-POC 95.0 95 - 99 % Powbjkoibrn-OMT-SEY 24.0 21 - 28 MMOL/L Specimen Performing Laboratory [facility] [address] [place] [address] * POC GLUCOSE (03/10/2017 12:10 PM) Component Value Ref Range Glucose, POC 90 70 - 100 MG/DL Specimen Performing Laboratory [facility] [address] [place], [place] [id number] * POC IONIZED CALCIUM (03/10/2017 11:29 AM) Component Value Ref Range Ionized Calcium-POC 1.01 1.0 - 1.3 MMOL/L Specimen Performing Laboratory [facility] [address] [place], [place] [id number] * POC SODIUM (03/10/2017 11:29 AM) Component Value Ref Range Sodium-POC 135 (L) 137 - 147 MMOL/L Specimen Performing Laboratory [facility] [address] [place] [address] * POC POTASSIUM (03/10/2017 11:29 AM) Component Value Ref Range Potassium-POC 3.5 3.5 - 5.1 MMOL/L Specimen Performing Laboratory [facility] [address] [place], [place] [id number] * POC HEMATOCRIT (03/10/2017 11:29 AM) Component Value Ref Range Hemoglobin POC 8.5 (L) 13.5 - 16.5 GM/DL Hematocrit POC 25.0 (L) 40 - 50 % Specimen Performing Laboratory [facility] [address] [place] [address] * POC BLOOD GAS ARTERIAL (03/10/2017 11:29 AM) Component Value Ref Range PH-ART-POC 7.45 7.35 - 7.45 [id number] 36 35 - 45 MMHG PO2-ART-POC 86 80 - 100 MMHG Base Ex-ART-POC 1.0 MMOL/L O2 Sat-ART-POC 97.0 95 - 99 % Lzgebdokhyr-JPA-LMK 24.6 21 - 28 MMOL/L Specimen Performing Laboratory [facility] [address] [place], [place] [id number] * POC IONIZED CALCIUM (03/10/2017 10:18 AM) Component Value Ref Range Ionized Calcium-POC 1.02 1.0 - 1.3 MMOL/L Specimen Performing Laboratory [facility] [address] [place], [place] [id number] * POC SODIUM (03/10/2017 10:18 AM) Component Value Ref Range Sodium-POC 135 (L) 137 - 147 MMOL/L Specimen Performing Laboratory [facility] [address] [place] [address] * POC POTASSIUM (03/10/2017 10:18 AM) Component Value Ref Range Potassium-POC 3.4 (L) 3.5 - 5.1 MMOL/L Specimen Performing Laboratory [facility] [address] [place] [address] * POC HEMATOCRIT (03/10/2017 10:18 AM) Component Value Ref Range Hemoglobin POC 7.8 (L) 13.5 - 16.5 GM/DL Hematocrit POC 23.0 (L) 40 - 50 % Specimen Performing Laboratory [facility] [address] [place] [address] * POC BLOOD GAS ARTERIAL (03/10/2017 10:18 AM) Component Value Ref Range PH-ART-POC 7.46 (H) 7.35 - 7.45 [id number] 35 35 - 45 MMHG PO2-ART-POC 90 80 - 100 MMHG Base Ex-ART-POC 1.0 MMOL/L O2 Sat-ART-POC 97.0 95 - 99 % Cqkswbdhlnh-JBY-VSC 25.0 21 - 28 MMOL/L Specimen Performing Laboratory [facility] [address] [place] [address] * ABDOMEN AP ONLY (03/10/2017 7:57 AM) Specimen Performing Laboratory [facility] RESULTS Impressions Findings/Impression: Tip of the gastric tube is seen overlying the mid abdomen in the expected location of body of stomach. Small amount of stool in the colon. Otherwise, nonspecific bowel gas pattern. No free air in the abdomen on this limited radiograph. Left basilar subsegmental atelectasis. Regional osseous structures are grossly intact. Finalized by ROLANDO UGARTE on 03/10/2017 10:13 AM. Dictated by ROLANDO UGARTE on 03/10/2017 10:11 AM. Narrative ABDOMEN AP ONLY Indication: gastric tube placement Comparison: None Technique: Single AP view Procedure Note Interface, Radiant Results - 03/10/2017 10:16 AM INTERVENTIONIST ABDOMEN AP ONLY Indication: gastric tube placement Comparison: None Technique: Single AP view IMPRESSION Findings/Impression: Tip of the gastric tube is seen overlying the mid abdomen in the expected location of body of stomach. Small amount of stool in the colon. Otherwise, nonspecific bowel gas pattern. No free air in the abdomen on this limited radiograph. Left basilar subsegmental atelectasis. Regional osseous structures are grossly intact. Finalized by ROLANDO UGARTE on 03/10/2017 10:13 AM. Dictated by ROLANDO UGARTE on 03/10/2017 10:11 AM. * BLOOD TYPE CONFIRMATION - ORDER ONLY IF REQUESTED BY LAB (03/10/2017 4:00 AM) Component Value Ref Range ABO/RH(D) A POS Specimen Performing Laboratory Blood [facility] [address] [place] [address] * TRIGLYCERIDE (03/10/2017 3:25 AM) Component Value Ref Range Triglycerides 84 <150 MG/DL Specimen Performing Laboratory [facility] [address] [place] [address] * IONIZED CALCIUM (03/10/2017 3:25 AM) Component Value Ref Range Ionized Calcium 1.01 1.0 - 1.3 MMOL/L Specimen Performing Laboratory Blood [facility] [address] [place] [address] * PHOSPHORUS (03/10/2017 3:25 AM) Component Value Ref Range Phosphorus 6.1 (H) 2.0 - 4.0 MG/DL Specimen Performing Laboratory Blood [facility] [address] [place], [place] [id number] * MAGNESIUM (03/10/2017 3:25 AM) Component Value Ref Range Magnesium 2.2 1.6 - 2.6 mg/dL Specimen Performing Laboratory Blood [facility] [address] [place] [address] * CBC AND DIFF (03/10/2017 3:25 AM) Component Value Ref Range White Blood Cells 8.6 4.5 - 11.0 K/UL RBC 2.80 (L) 4.4 - 5.5 M/UL Hemoglobin 9.0 (L) 13.5 - 16.5 GM/DL Hematocrit 25.5 (L) 40 - 50 % MCV 91.1 80 - 100 FL MCH 32.0 26 - 34 PG MCHC 35.2 32.0 - 36.0 G/DL RDW 15.4 (H) 11 - 15 % Platelet Count 152 150 - 400 K/UL MPV 8.7 7 - 11 FL Neutrophils 86 (H) 41 - 77 % Lymphocytes 4 (L) 24 - 44 % Monocytes 8 4 - 12 % Eosinophils 2 0 - 5 % Basophils 0 0 - 2 % Absolute Neutrophil Count 7.50 (H) 1.8 - 7.0 K/UL Absolute Lymph Count 0.30 (L) 1.0 - 4.8 K/UL Absolute Monocyte Count 0.70 0 - 0.80 K/UL Absolute Eosinophil Count 0.10 0 - 0.45 K/UL Absolute Basophil Count 0.00 0 - 0.20 K/UL Specimen Performing Laboratory Blood [facility] [address] [place] [address] * BASIC METABOLIC PANEL (03/10/2017 3:25 AM) Component Value Ref Range Sodium 134 (L) 137 - 147 MMOL/L Potassium 3.4 (L) 3.5 - 5.1 MMOL/L Chloride 96 (L) 98 - 110 MMOL/L CO2 28 21 - 30 MMOL/L Anion Gap 10 3 - 12 Glucose 91 70 - 100 MG/DL Blood Urea Nitrogen 38 (H) 7 - 25 MG/DL Creatinine 6.46 (H) 0.4 - 1.24 MG/DL Calcium 8.4 (L) 8.5 - 10.6 MG/DL eGFR Non 9 (L) >60 mL/min Comment: The eGFR is not validated for use in drug dosing adjustments. Continue to use estimated creatinine clearance per dosing reference text. Please contact the Clinical Pharmacist for questions. eGFR 11 (L) >60 mL/min Comment: The eGFR is not validated for use in drug dosing adjustments. Continue to use estimated creatinine clearance per dosing reference text. Please contact the Clinical Pharmacist for questions. Specimen Performing Laboratory Blood [facility] [address] [place] [address] * TYPE & CROSSMATCH (03/10/2017 3:25 AM) Component Value Ref Range Units Ordered 4 Crossmatch Expires 03/13/2017 Record Check 2ND TYPE REQUIRED ABO/RH(D) A POS Antibody Screen NEG Electronic Crossmatch YES Unit Number [id number] Blood Component Type RBC,ADSOL,LEUKO REDUCED Unit Division 0 Status OF Unit DISCARDED Transfusion Status OK TO TRANSFUSE Crossmatch Result COMPATIBLE,ELECTRONIC Unit Number [id number] Blood Component Type RBC,ADSOL,LEUKO REDUCED Unit Division 0 Status OF Unit TRANSFUSED Transfusion Status OK TO TRANSFUSE Crossmatch Result COMPATIBLE,ELECTRONIC Unit Number [id number] Blood Component Type RBC,ADSOL,LEUKO REDUCED Unit Division 0 Status OF Unit REL FROM ALLOC Transfusion Status OK TO TRANSFUSE Crossmatch Result COMPATIBLE,ELECTRONIC Unit Number [id number] Blood Component Type RBC,ADSOL,LEUKO REDUCED Unit Division 0 Status OF Unit REL FROM ALLOC Transfusion Status OK TO TRANSFUSE Crossmatch Result COMPATIBLE,ELECTRONIC Unit Number [id number] Blood Component Type RBC,ADSOL,LEUKO REDUCED Unit Division 0 Status OF Unit TRANSFUSED Transfusion Status OK TO TRANSFUSE Crossmatch Result COMPATIBLE,ELECTRONIC Specimen Performing Laboratory Blood [facility] [address] [place] [address] * CHEST SINGLE VIEW (03/10/2017 1:47 AM) Specimen Performing Laboratory [facility] RAD RESULTS Impressions 1. No significant change in large left pleural effusion with adjacent consolidation. 2. Persistent cardiomegaly without CHF. Approved by Main Connell M.D. on 03/10/2017 9:40 AM By my electronic signature, I attest that I have personally reviewed the images for this examination and formulated the interpretations and opinions expressed in this report Finalized by ROLANDO UGARTE on 03/10/2017 10:52 AM. Dictated by Main Connell M.D. on 03/10/2017 9:11 AM. Narrative CHEST SINGLE VIEW Indication: Male, 51 years old, pleural effusion Comparison: March 09, 2017 FINDINGS: Endotracheal tube remains in place. Interval retraction of the gastric tube with tip now located at the GE junction. This has been advanced below the diaphragm on a future study. Persistent cardiomegaly without pulmonary vascular congestion. Persistent large left pleural effusion with adjacent consolidation. The right lung remains clear. No pneumothorax. Mild bilateral acromioclavicular arthrosis. Procedure Note Interface, Radiant Results - 03/10/2017 10:56 AM INTERVENTIONIST CHEST SINGLE VIEW Indication: Male, 51 years old, pleural effusion Comparison: March 09, 2017 FINDINGS: Endotracheal tube remains in place. Interval retraction of the gastric tube with tip now located at the GE junction. This has been advanced below the diaphragm on a future study. Persistent cardiomegaly without pulmonary vascular congestion. Persistent large left pleural effusion with adjacent consolidation. The right lung remains clear. No pneumothorax. Mild bilateral acromioclavicular arthrosis. IMPRESSION 1. No significant change in large left pleural effusion with adjacent consolidation. 2. Persistent cardiomegaly without CHF. Approved by Main Connell M.D. on 03/10/2017 9:40 AM By my electronic signature, I attest that I have personally reviewed the images for this examination and formulated the interpretations and opinions expressed in this report Finalized by ROLANDO UGARTE on 03/10/2017 10:52 AM. Dictated by Main Connell M.D. on 03/10/2017 9:11 AM. * CHEST SINGLE VIEW (03/09/2017 8:45 PM) Specimen Performing Laboratory [facility] RAD RESULTS Impressions 1. Endotracheal tube in satisfactory positioning as above. This was discussed by telephone with Rylee Arango APRN at 9:15 PM on 03/09/2017. 2. Large left pleural effusion and left lung atelectasis. Slight progression of right basilar atelectasis. 3. Cardiomegaly. By my electronic signature, I attest that I have personally reviewed the images for this examination and formulated the interpretations and opinions expressed in this report Finalized by Dillon Maldonado M.D. on 03/09/2017 9:29 PM. Dictated by Mikey Nuñez M.D. on 03/09/2017 9:14 PM. Narrative CHEST SINGLE VIEW Clinical history: Repositioned endotracheal tube Comparison: Same day chest x-ray Findings: The endotracheal tube is visualized in unchanged position with tip at the level of the inferior clavicular heads. Additional tubing and leads overlie the patient. The nasogastric tube is visualized with tip coursing below the diaphragm, distal tip not visualized. The heart is at least mildly enlarged. There is a large left pleural effusion and atelectasis throughout the left upper lung. Slight progression of right basilar atelectasis. The costophrenic angles are not included within the [id number]. No pneumothorax. Right AC joint arthrosis. Procedure Note Interface, Radiant Results - 03/09/2017 9:32 PM INTERVENTIONIST CHEST SINGLE VIEW Clinical history: Repositioned endotracheal tube Comparison: Same day chest x-ray Findings: The endotracheal tube is visualized in unchanged position with tip at the level of the inferior clavicular heads. Additional tubing and leads overlie the patient. The nasogastric tube is visualized with tip coursing below the diaphragm, distal tip not visualized. The heart is at least mildly enlarged. There is a large left pleural effusion and atelectasis throughout the left upper lung. Slight progression of right basilar atelectasis. The costophrenic angles are not included within the [id number]-mu-[id number]. No pneumothorax. Right AC joint arthrosis. IMPRESSION 1. Endotracheal tube in satisfactory positioning as above. This was discussed by telephone with Rylee Arango APRN at 9:15 PM on 03/09/2017. 2. Large left pleural effusion and left lung atelectasis. Slight progression of right basilar atelectasis. 3. Cardiomegaly. By my electronic signature, I attest that I have personally reviewed the images for this examination and formulated the interpretations and opinions expressed in this report Finalized by Dillon Maldonado M.D. on 03/09/2017 9:29 PM. Dictated by Mikey Nuñez M.D. on 03/09/2017 9:14 PM. * PHENCYCLIDINES-URINE RANDOM (03/09/2017 6:45 PM) Component Value Ref Range Phencyclidine (PCP) NEG NEG-NEG Comment: RESULTS WERE OBTAINED BY IMMUNOASSAY AND ARE PRESUMPTIVE ONLY. POSITIVE INDICATES THE PRESENCE OF SUBSTANCE WITH CHARACTERISTICS SIMILAR TO DRUG-DRUG CLASS OR METABOLITE IN CONC. EQUAL TO OR EXCEEDING VALUES LISTED. PHENCYCLIDINE (PCP) 25 NG/ML Specimen Performing Laboratory Urine [facility] [address] [place] [address] * OPIATES-URINE RANDOM (03/09/2017 6:45 PM) Component Value Ref Range Opiates-Urine NEG NEG-NEG Comment: RESULTS WERE OBTAINED BY IMMUNOASSAY AND ARE PRESUMPTIVE ONLY. POSITIVE INDICATES THE PRESENCE OF SUBSTANCE WITH CHARACTERISTICS SIMILAR TO DRUG-DRUG CLASS OR METABOLITE IN CONC. EQUAL TO OR EXCEEDING VALUES LISTED. OPIATES 200 0 NG/ML Specimen Performing Laboratory Urine [facility] [address] [place] [address] * COCAINE-URINE RANDOM (03/09/2017 6:45 PM) Component Value Ref Range Cocaine-Urine NEG NEG-NEG Comment: RESULTS WERE OBTAINED BY IMMUNOASSAY AND ARE PRESUMPTIVE ONLY. POSITIVE INDICATES THE PRESENCE OF SUBSTANCE WITH CHARACTERISTICS SIMILAR TO DRUG-DRUG CLASS OR METABOLITE IN CONC. EQUAL TO OR EXCEEDING VALUES LISTED. COCAINE 300 NG/ML Specimen Performing Laboratory Urine [facility] [address] [place] [address] [id number] * CANNABINOIDS-URINE RANDOM (03/09/2017 6:45 PM) Component Value Ref Range THC NEG NEG-NEG Comment: RESULTS WERE OBTAINED BY IMMUNOASSAY AND ARE PRESUMPTIVE ONLY. POSITIVE INDICATES THE PRESENCE OF SUBSTANCE WITH CHARACTERISTICS SIMILAR TO DRUG-DRUG CLASS OR METABOLITE IN CONC. EQUAL TO OR EXCEEDING VALUES LISTED. CANNABINOIDS 50 NG/ML Specimen Performing Laboratory [facility] [address] [place] [address] [id number] * BENZODIAZEPINES-URINE RANDOM (03/09/2017 6:45 PM) Component Value Ref Range Benzodiazepines POS (A) NEG-NEG Comment: RESULTS WERE OBTAINED BY IMMUNOASSAY AND ARE PRESUMPTIVE ONLY. POSITIVE INDICATES THE PRESENCE OF SUBSTANCE WITH CHARACTERISTICS SIMILAR TO DRUG-DRUG CLASS OR METABOLITE IN CONC. EQUAL TO OR EXCEEDING VALUES LISTED. BENZODIAZEPINES 200 NG/ML Specimen Performing Laboratory Urine [facility] [address] [place] [id number] * BARBITURATES-URINE RANDOM (03/09/2017 6:45 PM) Component Value Ref Range Barbiturates,Urine NEG NEG-NEG Comment: RESULTS WERE OBTAINED BY IMMUNOASSAY AND ARE PRESUMPTIVE ONLY. POSITIVE INDICATES THE PRESENCE OF SUBSTANCE WITH CHARACTERISTICS SIMILAR TO DRUG-DRUG CLASS OR METABOLITE IN CONC. EQUAL TO OR EXCEEDING VALUES LISTED. BARBITURATES 200 NG/ML Specimen Performing Laboratory Urine [facility] [address] [place] [id number] * AMPHETAMINES-URINE RANDOM (03/09/2017 6:45 PM) Component Value Ref Range Amphetamines POS (A) NEG-NEG Comment: RESULTS WERE OBTAINED BY IMMUNOASSAY AND ARE PRESUMPTIVE ONLY. POSITIVE INDICATES THE PRESENCE OF SUBSTANCE WITH CHARACTERISTICS SIMILAR TO DRUG-DRUG CLASS OR METABOLITE IN CONC. EQUAL TO OR EXCEEDING VALUES LISTED. AMPHETAMINES 1000 NG/ML Specimen Performing Laboratory Urine [facility] [address] [place] [id number] * IONIZED CALCIUM (03/09/2017 6:43 PM) Component Value Ref Range Ionized Calcium 1.10 1.0 - 1.3 MMOL/L Specimen Performing Laboratory Blood [facility] [address] [place] [phone] * BLOOD GASES, ARTERIAL (03/09/2017 6:43 PM) Component Value Ref Range pH-Arterial 7.37 7.35 - 7.45 pCO2-Arterial 50 (H) 35 - 45 MMHG pO2-Arterial 118 (H) 80 - 100 MM[facility] Base Excess-Arterial 3.3 MMOL/L O2 Sat-Arterial 98.6 95 - 99 % [id number]-Hrc 27.4 21 - 28 MMOL/L Specimen Performing Laboratory Blood, arterial - Blood [facility] [address] [place] [address] * PHOSPHORUS (03/09/2017 6:43 PM) Component Value Ref Range Phosphorus 6.0 (H) 2.0 - 4.0 MG/DL Specimen Performing Laboratory [facility] [address] [place] [address] * MAGNESIUM (03/09/2017 6:43 PM) Component Value Ref Range Magnesium 2.1 1.6 - 2.6 mg/dL Specimen Performing Laboratory [facility] [address] [place] [address] [phone] * COMPREHENSIVE METABOLIC PANEL (03/09/2017 6:43 PM) [...] Pharmacist for questions. Specimen Performing Laboratory [facility] [address] [place] [id number] * PTT (APTT) (03/09/2017 6:43 PM) Component Value Ref Range APTT 31.9Comment: NOTE NEW REFERENCE RANGES 21.0 - 39.0 SEC Specimen Performing Laboratory [facility] [address] [place] [address] * PROTIME INR (PT) (03/09/2017 6:43 PM) Component Value Ref Range INR 1.3 (H) 0.8 - 1.2 Specimen Performing Laboratory [facility] [address] [place] [address] * CBC AND DIFF (03/09/2017 6:43 PM) Component Value Ref Range White Blood Cells 7.4 4.5 - 11.0 K/UL RBC 2.86 (L) 4.4 - 5.5 M/UL Hemoglobin 8.6 (L) 13.5 - 16.5 GM/DL Hematocrit 26.3 (L) 40 - 50 % MCV 92.1 80 - 100 FL MCH 30.2 26 - 34 PG MCHC 32.8 32.0 - 36.0 G/DL RDW 16.1 (H) 11 - 15 % Platelet Count 164 150 - 400 K/UL MPV 8.5 7 - 11 FL Neutrophils 86 (H) 41 - 77 % Lymphocytes 6 (L) 24 - 44 % Monocytes 7 4 - 12 % Eosinophils 1 0 - 5 % Basophils 0 0 - 2 % Absolute Neutrophil Count 6.30 1.8 - 7.0 K/UL Absolute Lymph Count 0.40 (L) 1.0 - 4.8 K/UL Absolute Monocyte Count 0.50 0 - 0.80 K/UL Absolute Eosinophil Count 0.10 0 - 0.45 K/UL Absolute Basophil Count 0.00 0 - 0.20 K/UL Specimen Performing Laboratory [facility] [address] [place] [address] * IR ARTERIOGRAM NEURO (03/09/2017 6:35 PM) Specimen Performing Laboratory RAD RESULTS Addenda Addendum by Llyy Rogel MD on 03/11/2017 10:05 AM Finalized by LYLY ROGEL M.D. on 03/11/2017 8:34 AM. Dictated by LYLY ROGEL M.D. on 03/11/2017 8:22 AM.Addendum: Left Common Femoral Vein Central Line Placement Under fluoroscopic guidance a 4 Kosovan 10 cm central venous line was placed [...] Narrative Cerebral Angiogram Indication - SAH with [facility] Procedures Performed 1) Right common carotid artery [...] Fentanyl 100 mcg Contrast - 100 cc [id number] Total mGy - 1174 Anesthesia:conscious sedation Consent -The procedure and its risks, benefits, and alternative treatments were explained to the patient's family over the telephone and a witnessed telephone consent was obtained. Clinical History: Mr. Mayfield is a 51 year old male who presented to the [facility] and was found to have subarachnoid hemorrhage [...] establishing arterial access. RCCA Technique A 5 Kosovan 100 cm Vert catheter was advanced over a 150 cm 0.035 [place] wire over the aortic arch and into [...] under fluoroscopic and roadmap guidance over the [place] wire and images were obtained in biplane [...] therefore, hemostasis was achieved using a 6 [place] Angioseal closure device followed by manual pressure for 5 minutes. The patient was transported to the neuro ICU in stable clinical and hemodynamic conditions. Complications - none immediate Procedure Note Interface, Radiant Results - 03/11/2017 10:05 AM INTERVENTIONIST Cerebral Angiogram Indication - SAH with IPH [...] Fentanyl 100 mcg Contrast - 100 cc [id number] Total mGy - 1174 Anesthesia: conscious sedation Consent - The procedure and its risks, benefits, and alternative treatments were explained to the patient's family over the telephone and a witnessed telephone consent was obtained. Clinical History: Mr. Mayfield is a 51 year old male who presented to the [facility] and was found to have subarachnoid hemorrhage [...] establishing arterial access. RCCA Technique A 5 [place] 100 cm Vert catheter was advanced over a 150 cm 0.035 [place] wire over the aortic arch and into [...] under fluoroscopic and roadmap guidance over the [place] wire and images were obtained in biplane [...] therefore, hemostasis was achieved using a 6 [place] Angioseal closure device followed by manual pressure [...] involvement of a resident or fellow. * CTA HEAD WO/W CONTR+POST PRO (03/09/2017 4:32 PM) Specimen Performing Laboratory [facility] RAD RESULTS Addenda Addendum by Dillon Maldonado MD on 03/09/2017 6:58 PM Finalized by Dillon Maldonado M.D. on 03/09/2017 5:56 PM. Dictated by Ekta Vitale M.D. on 03/09/2017 5:08 PM.Addendum: Large aneurysm was discussed with Xenia Arango by phone at 6:39 PM on 03/09/2017. Approved by Ekta Vitale M.D. on 03/09/2017 6:39 PM By my electronic signature, I attest that I have personally reviewed the images for this examination and formulated the interpretations and opinions expressed in this report Finalized by Dillon Maldonado M.D. on 03/09/2017 6:55 PM. Dictated by Ekta Vitale M.D. on 03/09/2017 6:39 PM. Impressions 1.Large saccular aneurysm projecting laterally from the right MCA bifurcation measuring up to 1.5 cm in maximum diameter. 2.No significant change in surrounding right anterior temporal parenchymal hematoma as well as scattered right convexity subarachnoid hemorrhage. Small amount of layering blood products are noted within the occipital horn of the left lateral ventricle. No progressive ventricular distention to suggest hydrocephalus. 3.Moderate nonspecific white matter disease, likely due to chronic microvascular ischemia. By my electronic signature, I attest that I have personally reviewed the images for this examination and formulated the interpretations and opinions expressed in this report Narrative EXAM: CTA HEAD HISTORY: 51-year-old male, subarachnoid hemorrhage with IPH TECHNIQUE: Multiple contiguous axial images were obtained of the brain before and following the administration of Isovue-370IV contrast. CTA maximum density projection images were obtained of the brain with image post processing. Comparison: CT head 03/09/2017 FINDINGS: Redemonstration of intraparenchymal hematoma involving the right temporal tip now measuring 2.3 x 2.1 cm (series 2 image 11), previously 2.1 x 2.0 cm. There is a focal area of low-attenuation along the superomedial aspect of the hematoma demonstrating peripheral calcification which corresponds with the MCA aneurysm, further discussed below. There is mild surrounding vasogenic edema. Additionally, there is subarachnoid hemorrhage involving the right lateral sylvian fissure and parietotemporal region with a small amount of hemorrhage layering within the occipital horn of the left lateral ventricle. No evidence of progressive ventricular distention. Punctate low-attenuation in the anterior limbs of the internal capsules, likely old lacunar infarcts. Patchy and confluent low-attenuation in the cerebral white matter compatible with moderate nonspecific white matter disease. The byrd white matter interfaces are otherwise maintained. There is no midline shift. The basal cisterns are patent. The calvarium is intact. Mild mucosal thickening of the maxillary sinuses and ethmoid air cells. Along the distal right M1 segment centered about the right MCA bifurcation, there is a large elongated saccular aneurysm with partial peripheral calcifications measuring 1.5 x 1.2 cm (series 3 image 90). The lesion projects laterally from the MCA bifurcation demonstrates a relatively narrow neck. The posterior right M2 division originates from the base of the aneurysm. The distal internal carotid, vertebral, and basilar arteries are patent without focal narrowing or occlusion. The anterior, middle, and posterior cerebral arteries are patent without focal narrowing. Procedure Note Interface, Radiant Results - 03/09/2017 6:58 PM INTERVENTIONIST EXAM: CTA HEAD HISTORY: 51-year-old male, subarachnoid hemorrhage with IPH TECHNIQUE: Multiple contiguous axial images were obtained of the brain before and following the administration of Isovue-370 IV contrast. CTA maximum density projection images were obtained of the brain with image post processing. Comparison: CT head 03/09/2017 FINDINGS: Redemonstration of intraparenchymal hematoma involving the right temporal tip now measuring 2.3 x 2.1 cm (series 2 image 11), previously 2.1 x 2.0 cm. There is a focal area of low-attenuation along the superomedial aspect of the hematoma demonstrating peripheral calcification which corresponds with the MCA aneurysm, further discussed below. There is mild surrounding vasogenic edema. Additionally, there is subarachnoid hemorrhage involving the right lateral sylvian fissure and parietotemporal region with a small amount of hemorrhage layering within the occipital horn of the left lateral ventricle. No evidence of progressive ventricular distention. Punctate low-attenuation in the anterior limbs of the internal capsules, likely old lacunar infarcts. Patchy and confluent low-attenuation in the cerebral white matter compatible with moderate nonspecific white matter disease. The byrd white matter interfaces are otherwise maintained. There is no midline shift. The basal cisterns are patent. The calvarium is intact. Mild mucosal thickening of the maxillary sinuses and ethmoid air cells. Along the distal right M1 segment centered about the right MCA bifurcation, there is a large elongated saccular aneurysm with partial peripheral calcifications measuring 1.5 x 1.2 cm (series 3 image 90). The lesion projects laterally from the MCA bifurcation demonstrates a relatively narrow neck. The posterior right M2 division originates from the base of the aneurysm. The distal internal carotid, vertebral, and basilar arteries are patent without focal narrowing or occlusion. The anterior, middle, and posterior cerebral arteries are patent without focal narrowing. IMPRESSION 1. Large saccular aneurysm projecting laterally from the right MCA bifurcation measuring up to 1.5 cm in maximum diameter. 2. No significant change in surrounding right anterior temporal parenchymal hematoma as well as scattered right convexity subarachnoid hemorrhage. Small amount of layering blood products are noted within the occipital horn of the left lateral ventricle. No progressive ventricular distention to suggest hydrocephalus. 3. Moderate nonspecific white matter disease, likely due to chronic microvascular ischemia. By my electronic signature, I attest that I have personally reviewed the images for this examination and formulated the interpretations and opinions expressed in this report * CHEST SINGLE VIEW (03/09/2017 3:45 PM) Specimen Performing Laboratory [facility] RAD RESULTS Impressions 1. Slight decrease in size of large left pleural effusion with adjacent consolidation. 2. Persistent cardiomegaly without CHF. Approved by Main Connell M.D. on 03/10/2017 9:26 AM By my electronic signature, I attest that I have personally reviewed the images for this examination and formulated the interpretations and opinions expressed in this report Finalized by ROLANDO UGARTE on 03/10/2017 10:53 AM. Dictated by Main Connell M.D. on 03/10/2017 8:37 AM. Narrative CHEST SINGLE VIEW Indication: Male, 51 years old, intubated, new transfer Comparison: March 09, 2017 FINDINGS: Endotracheal tube and gastric tube remain in place. Persistent cardiomegaly without pulmonary vascular congestion. Slight decrease in size of large left pleural effusion with adjacent consolidation. The right lung remains clear. No pneumothorax. Mild bilateral acromioclavicular arthrosis. Procedure Note Interface, Radiant Results - 03/10/2017 10:56 AM INTERVENTIONIST CHEST SINGLE VIEW Indication: Male, 51 years old, intubated, new transfer Comparison: March 09, 2017 FINDINGS: Endotracheal tube and gastric tube remain in place. Persistent cardiomegaly without pulmonary vascular congestion. Slight decrease in size of large left pleural effusion with adjacent consolidation. The right lung remains clear. No pneumothorax. Mild bilateral acromioclavicular arthrosis. IMPRESSION 1. Slight decrease in size of large left pleural effusion with adjacent consolidation. 2. Persistent cardiomegaly without CHF. Approved by Main Connell M.D. on 03/10/2017 9:26 AM By my electronic signature, I attest that I have personally reviewed the images for this examination and formulated the interpretations and opinions expressed in this report Finalized by ROLANDO UGARTE on 03/10/2017 10:53 AM. Dictated by Main Connell M.D. on 03/10/2017 8:37 AM. in this encounter Visit Diagnoses Diagnosis 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HCC) - Primary Subarachnoid hemorrhage IVH (intraventricular hemorrhage) (HCC) Intracerebral hemorrhage On mechanically assisted ventilation (HCC) ESRD on hemodialysis (HCC) End stage renal disease Subarachnoid bleed (HCC) Subarachnoid hemorrhage ESRD (end stage renal disease) (HCC) End stage renal disease Essential hypertension Unspecified essential hypertension Hypertension secondary to other renal disorders Hyperphosphatemia Disorders of phosphorus metabolism Acquired skull defect Other specified acquired deformity of head Intraparenchymal hematoma of brain (HCC) in this encounter Admitting Diagnoses Diagnosis subarachnoid hemorrhage Subarachnoid bleed (HCC) 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HCC) Subarachnoid hemorrhage Brain aneurysm Cerebral aneurysm, nonruptured 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HCC) Subarachnoid hemorrhage Acquired skull defect Other specified acquired deformity of head in this encounter Administered Medications Medication Order MAR Action Action Date Dose Rate Site acetaminophen (TYLENOL) oral solution Given 03/22/2017 650 mg 650 mg 23:54 INTERVENTIONIST 650 mg, Per NG tube, EVERY 4 HOURS PRN, Starting Sat03/20/17 at 0149, Until Sat03/24/17 at 0134, Pain non-opioid: may be used alone or in combination with opioid analgesia, TOTAL ACETAMINOPHEN DOSE NOT TO EXCEED 4GM DAILY Given 03/23/2017 650 mg 08:01 INTERVENTIONIST Given 03/23/2017 650 mg 16:01 INTERVENTIONIST acetaminophen (TYLENOL) tablet 650 mg Given 03/17/2017 650 mg 650 mg, Oral, EVERY 4 HOURS PRN, 20:19 INTERVENTIONIST Starting Sat03/11/17 at 2330, Until Sat03/20/17 at 0151, Pain non-opioid: may be used alone or in combination with opioid analgesia, TOTAL ACETAMINOPHEN DOSE NOT TO EXCEED 4GM DAILY Given 03/19/2017 650 mg 11:22 INTERVENTIONIST Given 03/19/2017 650 mg 17:27 INTERVENTIONIST acetaminophen (TYLENOL) tablet 650 mg Given 03/24/2017 650 mg 650 mg, Oral, EVERY 4 HOURS PRN, 08:03 INTERVENTIONIST Starting 03/24/17 at 0138, Until Sat03/26/17 at 1750, Pain non-opioid: may be used alone or in combination with opioid analgesia, TOTAL ACETAMINOPHEN DOSE NOT TO EXCEED 4GM DAILY Given 03/25/2017 650 mg 18:41 INTERVENTIONIST Given 03/26/2017 650 mg 10:01 INTERVENTIONIST amLODIPine (NORVASC) tablet 10 mg Given 03/24/2017 10 mg 10 mg, Oral, DAILY, First dose on Sat 09:03 INTERVENTIONIST 03/20/17 at 1100, Until Discontinued, NURSING: Please educate patient and document: Do not give with grapefruit juice. Given 03/25/2017 10 mg 08:21 INTERVENTIONIST Given 03/26/2017 10 mg 14:05 INTERVENTIONIST atorvastatin (LIPITOR) tablet 10 mg Given 03/23/2017 10 mg 10 mg, Oral, AT BEDTIME DAILY, First 21:16 INTERVENTIONIST dose on Sat03/15/17 at 2100, Until Discontinued Given 03/24/2017 10 mg 21:26 INTERVENTIONIST Given 03/25/2017 10 mg 20:52 INTERVENTIONIST barium sulfate 40 % (VARIBAR HONEY) oral Given 03/21/2017 10 mL suspension 10 mL 15:30 INTERVENTIONIST 10 mL, Oral, ONCE, 1 dose, Becky 03/21/17 at 1545, GI Procedure Area Only barium sulfate 40 % (VARIBAR NECTAR) Given 03/21/2017 10 mL oral suspension 10 mL 15:30 INTERVENTIONIST 10 mL, Oral, ONCE, 1 dose, Becky 03/21/17 at 1545, GI Procedure Area Only barium sulfate 40 % (VARIBAR PUDDING) Given 03/21/2017 10 mL oral paste 10 mL 15:30 INTERVENTIONIST 10 mL, Oral, ONCE, 1 dose, Becky 03/21/17 at 1545, GI Procedure Area Only barium sulfate 40 % (VARIBAR THIN Given 03/21/2017 10 mL LIQUID) oral powder for suspension 10 mL 15:30 INTERVENTIONIST 10 mL, Oral, ONCE, 1 dose, Becky 03/21/17 at 1545, Mixing Instructions: 1. Gently shake the barium sulfate to loosen the powder. 2. Remove Cap. Add water to the 40% (w/v) line and replace the cap. 3. Invert bottle and tap with fingers to mix the powder into the water. 4. Shake vigorously for 30 seconds. Let stand for 5 minutes. 5. Suspension has hydrated and settled. Re-fill with water to the 40% line and replace cap. 6. Re-shake thoroughly. Product is now ready for use. bisacodyl (DULCOLAX) rectal suppository Given 03/11/2017 10 mg 10 mg 20:41 INTERVENTIONIST 10 mg, Rectal, DAILY, First dose on Sat03/11/17 at 2100, Until Discontinued, Hold for loose stools ceFAZolin (ANCEF) IVP 1 g Given 03/11/2017 1 g 1 g, Intravenous, EVERY 24 HOURS, First 17:00 INTERVENTIONIST dose on Sat03/11/17 at 1600, Until Discontinued, Administer after HD on HD days IV PUSH -- RECONSTITUTE each 1 g vial by adding 10 mL 0.9% NACL Given 03/12/2017 1 g 16:15 INTERVENTIONIST chlorhexidine gluconate (PERIDEX) 0.12 % Given 03/16/2017 15 mL solution 15 mL 09:00 INTERVENTIONIST 15 mL, Swish & Spit, TWICE DAILY, First dose on Sat03/11/17 at 1200, Until Discontinued Given 03/16/2017 15 mL 22:19 INTERVENTIONIST Given 03/17/2017 15 mL 09:09 INTERVENTIONIST dexmedetomidine (PRECEDEX) 400 mcg/NS Dose/Rate 03/15/2017 0.2 5.8 mL/ hr 100 ml IV drip Change 21:54 INTERVENTIONIST mcg/kg/hr 0.2-1 mcg/kg/hr 115.1 kg (5.755-28.775 mL/hr, rounded to 5.8-28.8 mL/hr) 100 mL, at 5.8-28.8 mL/hr, Intravenous, TITRATE DIRECTED , Starting 03/10/17 at 0700, Until 03/16/17 at 0901, -Initiate at 0.2 mcg/kg/hr and maintain for 30 minutes -Titrate to keep: RASS of 0 to -2 a.) Titrate infusion in increments of 0.1 mcg/kg/hour at 5 minute intervals until goal sedation level achieved or maintenance exceeds 1.0 mcg/kg/hr b.) If HR < 60 or SBP < 90 mmHg hold for 10 minutes then restart at dose reduced by 0.3 mcg/kg/min c.) Notify physician for persistent hypotension (SBP < 90 mmHg) or bradycardia (HR < 60) over 15 minutes d.) For breakthrough agitation NOTIFY PHYSICIAN and consider bolus of 1 mcg/kg over 20 min if HR and BP are acceptable. e.) Notify physician if maintenance exceeds 1 mcg/kg/hr -Taper agent continuously to lowest effective dose to achieve desired level of sedation keeping patient calm and able to participate in care. Infusion Restarted 03/16/2017 0.3 8.6 mL/hr 01:18 INTERVENTIONIST mcg/kg/hr Given - New Bag 03/16/2017 0.3 8.6 mL/hr 03:42 INTERVENTIONIST mcg/kg/hr dexmedetomidine (PRECEDEX) 400 mcg/NS Infusion 03/18/2017 0.6 17.4 mL/ hr 100 ml IV drip Restarted 19:45 INTERVENTIONIST mcg/kg/hr 0.2-1 mcg/kg/hr 115.9 kg (5.795-28.975 mL/hr, rounded to 5.8-29 mL/hr) 100 mL, at 5.8-29 mL/hr, Intravenous, TITRATE DIRECTED , Starting [place] 03/17/17 at 1945, Until Sat03/19/17 at 0906, -Initiate at .2 mcg/kg/hr and maintain for 30 minutes -Titrate to keep: RASS of 0 to -2 a.) Titrate infusion in increments of 0.1 mcg/kg/hour at 5 minute intervals until goal sedation level achieved or maintenance exceeds 1.0 mcg/kg/hr b.) If HR < 60 or SBP < 90 mmHg hold for 10 minutes then restart at dose reduced by 0.3 mcg/kg/min c.) Notify physician for persistent hypotension (SBP < 90 mmHg) or bradycardia (HR < 60) over 15 minutes d.) For breakthrough agitation NOTIFY PHYSICIAN and consider bolus of 1 mcg/kg over 20 min if HR and BP are acceptable. e.) Notify physician if maintenance exceeds 1 mcg/kg/hr -Taper agent continuously to lowest effective dose to achieve desired level of sedation keeping patient calm and able to participate in care. Dose/Rate Change 03/18/2017 0.4 11.6 mL/hr 22:32 INTERVENTIONIST mcg/kg/hr Given - New Bag 03/19/2017 0.4 11.6 mL/hr 01:34 INTERVENTIONIST mcg/kg/hr docusate (COLACE) oral solution 100 mg Given 03/12/2017 100 mg 100 mg, Feeding Tube, TWICE DAILY, First 08:40 INTERVENTIONIST dose on 03/09/17 at 2100, Until Discontinued, Hold for loose stools Given 03/12/2017 100 mg 20:09 INTERVENTIONIST Given 03/24/2017 100 mg 09:03 INTERVENTIONIST doxazosin (CARDURA) tablet 4 mg Given 03/22/2017 4 mg 4 mg, Feeding Tube, DAILY, First dose on 12:16 INTERVENTIONIST 03/22/17 at 1130, Until Discontinued Given 03/23/2017 4 mg 08:02 INTERVENTIONIST doxazosin (CARDURA) tablet 4 mg Given 03/24/2017 4 mg 4 mg, Oral, DAILY, First dose on Sun 09:03 INTERVENTIONIST 03/24/17 at 0900, Until Discontinued doxazosin (CARDURA) tablet 8 mg Given 03/25/2017 8 mg 8 mg, Oral, DAILY, First dose on Mon 08:21 INTERVENTIONIST 03/25/17 at 0900, Until Discontinued Given 03/26/2017 8 mg 14:05 INTERVENTIONIST famotidine (PEPCID) injection 20 mg Given 03/13/2017 20 mg 20 mg, Intravenous, AT BEDTIME DAILY, 20:29 INTERVENTIONIST First dose on 03/09/17 at 2100, Until Discontinued, DILUTE W/ 10ML NS OR D5W. GIVE IV PUSH OVER 2 MIN Given 03/14/2017 20 mg 20:02 INTERVENTIONIST Given 03/15/2017 20 mg 20:25 INTERVENTIONIST fentaNYL citrate PF (SUBLIMAZE) Given 03/09/2017 50 mcg injection 17:37 INTERVENTIONIST INTRA-PROCEDURE MED, Starting 03/09/17 at 1737, Until 03/11/17 at 1043 fentaNYL citrate PF (SUBLIMAZE) Given 03/21/2017 50 mcg injection 25-50 mcg 05:42 INTERVENTIONIST 25-50 mcg, Intravenous, EVERY 1 HOUR PRN, Starting 03/09/17 at 1516, Until Sat03/22/17 at 1033, Pain Injectable Given 03/21/2017 50 mcg 09:16 INTERVENTIONIST Given 03/21/2017 50 mcg 12:26 INTERVENTIONIST furosemide (LASIX) injection 40 mg Given 03/09/2017 40 mg 40 mg, Intravenous, ONCE, 1 dose, Sat 21:18 INTERVENTIONIST 03/09/17 at 2100, PROTECT FROM LIGHT haloperidol (HALDOL) oral solution 2.5-5 Given 03/19/2017 5 mg mg 23:06 INTERVENTIONIST 2.5-5 mg, Oral, EVERY 6 HOURS PRN, Starting Sat03/15/17 at 1716, Until Tu03/26/17 at 1750, Agitation PO, Anxiety PO Given 03/20/2017 5 mg 22:16 INTERVENTIONIST Given 03/21/2017 5 mg 05:42 INTERVENTIONIST heparin (porcine) PF syringe 5,000 Units Given 03/24/2017 5,000 Units Arm, Right 5,000 Units, Subcutaneous, EVERY 8 06:04 INTERVENTIONIST HOURS, 34 doses, First dose on 03/13/17 at 2100, Last dose on Sat03/24/17 at 2200, NOTE: This is a HIGH ALERT Medication. Given 03/24/2017 5,000 Units Abdominal 15:37 INTERVENTIONIST Tissue Given 03/24/2017 5,000 Units Abdominal 21:25 INTERVENTIONIST Tissue heparin (porcine) PF syringe 5,000 Units Given 03/26/2017 5,000 Units Arm, Right 5,000 Units, Subcutaneous, EVERY 8 06:24 INTERVENTIONIST HOURS, First dose on Sat03/25/17 at 2200, Until Discontinued, NOTE: This is a HIGH ALERT Medication. hydrALAZINE (APRESOLINE) injection 10 mg Given 03/09/2017 10 mg 10 mg, Intravenous, EVERY 6 HOURS PRN, 21:34 INTERVENTIONIST Starting 03/09/17 at 1516, Until Sat03/13/17 at 0946, Systolic Blood Pressure..., >140 mmHg or MAP >110 mmHg or DBP >90 mmHg hydrALAZINE (APRESOLINE) injection 10-20 Given 03/20/2017 20 mg mg 16:57 INTERVENTIONIST 10-20 mg, Intravenous, EVERY 6 HOURS PRN, Starting 03/16/17 at 1631, Until Sat03/26/17 at 1750, Systolic Blood Pressure..., >200mmHg Given 03/21/2017 20 mg 06:50 INTERVENTIONIST Given 03/26/2017 20 mg 03:25 INTERVENTIONIST insulin aspart (NOVOLOG FLEXPEN) Given 03/22/2017 2 Units Arm, Left injection PEN 0-7 Units 18:00 INTERVENTIONIST 0-7 Units, Subcutaneous, FIVE TIMES DAILY, First dose on Sat03/12/17 at 1200, Until Discontinued, -POC glucose 140-180mg/dL at administer 1 unit insulin, at , 03* administer 0 units. -POC glucose 181-220mg/dL at administer 2 units insulin, at 21, 03* administer 1 unit. -POC glucose 221-260mg/dL at administer 3 units insulin, at , 03* administer 2 units. -POC glucose 261-300mg/dL at administer 4 units insulin, at , 03* administer 3 units. -POC glucose 301-350mg/dL at administer 5 units insulin, at , 03* administer 4 units. -POC glucose 351-400mg/dL at administer 6 units insulin, at , 03* administer 5 units. -POC glucose >400mg/dL at 07, 11, 17 administer 7 units insulin, at 21, 03* administer 6 units. *only if ordered 5x's daily For POCT glucose >350mg/dL give correction bolus and recheck POCT glucose in 2 hours. If POCT glucose at 2 hours >300mg/dL call physician for further orders. For patients who are not eating meals, continue to administer the appropriate correction factor. NOTE: This is a HIGH ALERT Medication. Given 03/23/2017 1 Units Arm, Right 13:00 INTERVENTIONIST Given 03/24/2017 1 Units Abdominal 12:36 INTERVENTIONIST Tissue iopamidol 300 (ISOVUE-300) injection 100 Given 03/09/2017 100 mL mL 18:36 INTERVENTIONIST 100 mL, Intra-arterial, ONCE, 1 dose, 03/09/17 at 1845, NOTE: This is a HIGH ALERT Medication. iopamidol 300 (ISOVUE-300) injection 50 Given 03/11/2017 50 mL mL 09:57 INTERVENTIONIST 50 mL, Intra-arterial, ONCE, 1 dose, 03/11/17 at 1000, NOTE: This is a HIGH ALERT Medication. iopamidol 370 (ISOVUE-370) injection 100 Given 03/10/2017 100 mL mL 20:45 INTERVENTIONIST 100 mL, Intravenous, ONCE, 1 dose, 03/10/17 at 2045, NOTE: This is a HIGH ALERT Medication. iopamidol 370 (ISOVUE-370) injection 100 Given 03/13/2017 100 mL mL 09:15 INTERVENTIONIST 100 mL, Intravenous, ONCE, 1 dose, 03/13/17 at 0915, NOTE: This is a HIGH ALERT Medication. iopamidol 370 (ISOVUE-370) injection 65 Given 03/09/2017 65 mL mL 16:45 INTERVENTIONIST 65 mL, Intravenous, ONCE, 1 dose, 03/09/17 at 1645, NOTE: This is a HIGH ALERT Medication. iopamidol 370 (ISOVUE-370) injection 65 Given 03/17/2017 65 mL mL 08:45 INTERVENTIONIST 65 mL, Intravenous, ONCE, 1 dose, 03/17/17 at 0845, NOTE: This is a HIGH ALERT Medication. labetalol (NORMODYNE) injection 10 mg Given 03/14/2017 10 mg 10 mg, Intravenous, EVERY 1 HOUR PRN, 18:33 INTERVENTIONIST Starting Becky 03/14/17 at 0230, Until 03/15/17 at 1414, Systolic Blood Pressure..., >180, Hold for heart rate < 60 bpm Given 03/15/2017 10 mg 13:25 INTERVENTIONIST labetalol (NORMODYNE) injection 10 mg Given 03/24/2017 10 mg 10 mg, Intravenous, EVERY 4 HOURS PRN, 11:30 INTERVENTIONIST Starting 03/24/17 at 1107, Until Tu03/26/17 at 1750, Blood Pressure..., Systolic Blood Pressure..., for SBP > 160, Hold for heart rate < 60 bpm Given 03/25/2017 10 mg 02:05 INTERVENTIONIST labetalol (NORMODYNE) injection 10-20 mg Given 03/11/2017 10 mg 10-20 mg, Intravenous, EVERY 15 MIN PRN, 02:45 INTERVENTIONIST Starting 03/09/17 at 1516, Until Sat03/13/17 at 0946, Other..., For SBP > 140 mmHg or MAP > 110 mmHg OR DBP >90 mmHg, Hold for HR < 60/min and/or MAP < 110 mmHg or SBP < 140 mmHg or DBP <90 mmHg. Given 03/11/2017 10 mg 07:02 INTERVENTIONIST Given 03/11/2017 10 mg 11:52 INTERVENTIONIST labetalol (NORMODYNE) injection 10-20 mg Given 03/16/2017 15 mg 10-20 mg, Intravenous, EVERY 10 MIN PRN, 03:36 INTERVENTIONIST Starting 03/15/17 at 1422, Until 03/16/17 at 1637, Systolic Blood Pressure..., >180, Hold for heart rate < 60 bpm. May double dose every 10 min up to 80mg. Never give more than 80mg at one time and never more than 300mg in one 24h period. Given 03/16/2017 20 mg 06:14 INTERVENTIONIST Given 03/16/2017 20 mg 15:50 INTERVENTIONIST labetalol (NORMODYNE) injection 10-20 mg Given 03/19/2017 20 mg 10-20 mg, Intravenous, EVERY 10 MIN PRN, 20:04 INTERVENTIONIST Starting 03/16/17 at 1631, Until 03/23/17 at 1914, Systolic Blood Pressure..., >200mmHg, Hold for heart rate < 60 bpm. May double dose every 10 min up to 80mg. Never give more than 80mg at one time and never more than 300mg in one 24h period. Given 03/20/2017 20 mg 11:03 INTERVENTIONIST Given 03/21/2017 20 mg 02:27 INTERVENTIONIST levETIRAcetam (KEPPRA) oral solution Given 03/21/2017 1,500 mg 1,500 mg 13:06 INTERVENTIONIST 1,500 mg, Feeding Tube, DAILY, First dose on 03/17/17 at 1300, Until Discontinued Given 03/22/2017 1,500 mg 08:04 INTERVENTIONIST Given 03/23/2017 1,500 mg 08:00 INTERVENTIONIST levETIRAcetam (KEPPRA) tablet 1,500 mg Given 03/24/2017 1,500 mg 1,500 mg, Oral, DAILY, First dose on Sun 09:34 INTERVENTIONIST 03/24/17 at 0900, Until Discontinued Given 03/25/2017 1,500 mg 08:21 INTERVENTIONIST Given 03/26/2017 1,500 mg 14:05 INTERVENTIONIST levETIRAcetam in NaCl (iso-os) (KEPPRA) Given - 03/12/2017 1,000 mg IVPB (premade) 1,000 mg 100 mL Bag 16:22 INTERVENTIONIST 1,000 mg, 100 mL, Administer over 15 Minutes, Intravenous, DAILY, First dose on Sat03/12/17 at 1200, Until Discontinued, renal dosing - give after dialysis on dialysis days levETIRAcetam in NaCl (iso-os) (KEPPRA) Given - New 03/13/2017 1,000 mg IVPB (premade) 1,000 mg 100 mL Bag 21:32 INTERVENTIONIST 1,000 mg, 100 mL, Administer over 15 Minutes, Intravenous, ONCE, 1 dose, Sat03/13/17 at 2030 levETIRAcetam in NaCl (iso-os) (KEPPRA) Given - New 03/14/2017 1,500 mg IVPB (premade) 1,500 mg 100 mL Bag 14:22 INTERVENTIONIST 1,500 mg, 100 mL, Administer over 15 Minutes, Intravenous, DAILY, First dose on Becky 03/14/17 at 1230, Until Discontinued, renal dosing - give after dialysis on dialysis days (continue giving on non-HD days) Given - New Bag 03/15/2017 1,500 mg 12:01 INTERVENTIONIST Given - New Bag 03/16/2017 1,500 mg 12:42 INTERVENTIONIST levETIRAcetam in NaCl (iso-os) (KEPPRA) Given - New 03/09/2017 500 mg IVPB (premade) 500 mg 100 mL Bag 21:18 INTERVENTIONIST 500 mg, 100 mL, Administer over 15 Minutes, Intravenous, TWICE DAILY, First dose on 03/09/17 at 2100, Until Discontinued Given - New Bag 03/11/2017 500 mg 08:10 INTERVENTIONIST levETIRAcetam in NaCl (iso-os) (KEPPRA) Given - New 03/11/2017 500 mg IVPB (premade) 500 mg 100 mL Bag 14:06 INTERVENTIONIST 500 mg, 100 mL, Administer over 15 Minutes, Intravenous, ONCE, 1 dose, 03/11/17 at 1300, After HD losartan (COZAAR) suspension 50 mg Given 03/22/2017 50 mg 50 mg, Feeding Tube, DAILY, First dose 12:16 INTERVENTIONIST on Sat03/22/17 at 1130, Until Discontinued Given 03/23/2017 50 mg 08:00 INTERVENTIONIST losartan (COZAAR) tablet 50 mg Given 03/24/2017 50 mg 50 mg, Oral, DAILY, First dose on Sun 09:03 INTERVENTIONIST 03/24/17 at 0900, Until Discontinued Given 03/25/2017 50 mg 08:21 INTERVENTIONIST Given 03/26/2017 50 mg 14:08 INTERVENTIONIST melatonin tablet 3 mg Given 03/23/2017 3 mg 3 mg, Oral, AT BEDTIME DAILY, First dose 21:16 INTERVENTIONIST on Becky 03/21/17 at 2100, Until Discontinued Given 03/24/2017 3 mg 21:26 INTERVENTIONIST Given 03/25/2017 3 mg 20:52 INTERVENTIONIST methylcellulose (GONIOSOL) 2.5 % Given 03/16/2017 1 drop ophthalmic solution 1 drop 13:51 INTERVENTIONIST 1 drop, Both Eyes, NEEDED, Starting Sat03/15/17 at 1708, Until Tu03/26/17 at 1750, Dry Eyes, Irritated Eyes Given 03/20/2017 1 drop 10:31 INTERVENTIONIST Given 03/20/2017 1 drop 16:23 INTERVENTIONIST metoprolol tartrate (LOPRESSOR) tablet Given 03/11/2017 100 mg 100 mg 20:09 INTERVENTIONIST 100 mg, Per NG tube, TWICE DAILY, First dose on 03/11/17 at 1200, Until Discontinued, Hold for heart rate < 60 bpm, SBP<120 Given 03/12/2017 100 mg 09:45 INTERVENTIONIST Given 03/12/2017 100 mg 20:09 INTERVENTIONIST metoprolol tartrate (LOPRESSOR) tablet Given 03/21/2017 50 mg 50 mg 13:07 INTERVENTIONIST 50 mg, Oral, TWICE DAILY, First dose on Sat03/19/17 at 1030, Until Discontinued, Hold for heart rate < 60 bpm Given 03/21/2017 50 mg 20:07 INTERVENTIONIST Given 03/22/2017 50 mg 08:04 INTERVENTIONIST metoprolol tartrate (LOPRESSOR) tablet Given 03/25/2017 50 mg 50 mg 08:21 INTERVENTIONIST 50 mg, Oral, TWICE DAILY, First dose on Sat03/24/17 at 0900, Until Discontinued, Hold for heart rate < 50 bpm or systolic BP < 100 Given 03/25/2017 50 mg 20:52 INTERVENTIONIST Given 03/26/2017 50 mg 14:05 INTERVENTIONIST metoprolol(#) (LOPRESSOR) solution 50 mg Given 03/22/2017 50 mg 50 mg, Feeding Tube, TWICE DAILY, First 20:41 INTERVENTIONIST dose on Sat03/22/17 at 2100, Until Discontinued, Hold for heart rate < 60 bpm Given 03/23/2017 50 mg 08:01 INTERVENTIONIST Given 03/23/2017 50 mg 21:18 INTERVENTIONIST milk of magnesia (CONC) oral suspension Given 03/24/2017 10 mL 10 mL 09:03 INTERVENTIONIST 10 mL, Feeding Tube, DAILY, First dose on Sat03/09/17 at 1530, Until Discontinued, May hold if BM within 24 hours of dose. 10 mL CONC=30 mL MOM minoxidil (LONITEN) tablet 10 mg Given 03/11/2017 10 mg 10 mg, Per NG tube, TWICE DAILY, First 20:08 INTERVENTIONIST dose on Sat03/11/17 at 1200, Until Discontinued Given 03/12/2017 10 mg 09:45 INTERVENTIONIST Given 03/12/2017 10 mg 20:09 INTERVENTIONIST niCARdipine (cardENE) 20 mg/NS 200 mL Dose/Rate 03/11/2017 15 mg/hr 150 mL/hr infusion (std conc)(premade) Change 01:52 INTERVENTIONIST 200 mL, 5-15 mg/hr (50-150 mL/hr), at 50-150 mL/hr, Intravenous, TITRATE DIRECTED , Starting Sat03/09/17 at 1545, Until Sat03/12/17 at 0930, Initiate at 5 mg/hr Titrate to keep: SYS<140 Call MD if patient's dose is 5 mg/hr and able to tolerate oral medications. Std Conc=0.1 mg/ml Given - New Bag 03/11/2017 5 mg/hr 50 mL/hr 06:50 INTERVENTIONIST Infusion Restarted 03/11/2017 5 mg/hr 50 mL/hr 10:26 INTERVENTIONIST niMODipine (NIMOTOP) capsule 60 mg Given 03/10/2017 60 mg 60 mg, Oral, EVERY 4 HOURS, 126 doses, 04:56 INTERVENTIONIST First dose on 03/09/17 at 2200, Last dose on Sat03/30/17 at 1600, Give sublingually Given 03/11/2017 60 mg 03:24 INTERVENTIONIST Given 03/11/2017 60 mg 08:00 INTERVENTIONIST niMODipine (NIMOTOP) capsule 60 mg Given 03/25/2017 60 mg 60 mg, Oral, EVERY 4 HOURS, First dose 19:41 INTERVENTIONIST on 03/24/17 at 0815, Until Discontinued Given 03/25/2017 60 mg 23:31 INTERVENTIONIST Given 03/26/2017 60 mg 03:16 INTERVENTIONIST niMODipine (NYMALIZE) 3 mg/ mL solution Given 03/22/2017 30 mg 30 mg 13:41 INTERVENTIONIST 30 mg, Per OG Tube, EVERY 2 HOURS, 211 doses, First dose on Sat03/13/17 at 1000, Last dose on Sat03/30/17 at 2200 Given 03/22/2017 30 mg 16:05 INTERVENTIONIST Given 03/22/2017 30 mg 18:15 INTERVENTIONIST niMODipine (NYMALIZE) 3 mg/ mL solution Given 03/12/2017 60 mg 60 mg 16:14 INTERVENTIONIST 60 mg, Per OG Tube, EVERY 4 HOURS, 127 doses, First dose on Sat03/11/17 at 0900, Last dose on Sat04/01/17 at 0800 Given 03/12/2017 60 mg 20:09 INTERVENTIONIST Given 03/13/2017 60 mg 00:26 INTERVENTIONIST niMODipine (NYMALIZE) 3 mg/ mL solution Given 03/23/2017 60 mg 60 mg 20:33 INTERVENTIONIST 60 mg, Per OG Tube, EVERY 4 HOURS, First dose on Sat03/22/17 at 2030, Until Discontinued Given 03/24/2017 60 mg 00:00 INTERVENTIONIST Given 03/24/2017 60 mg 03:48 INTERVENTIONIST nystatin (MYCOSTATIN) oral suspension Given 03/21/2017 500,000 500,000 Units 16:10 INTERVENTIONIST Units 500,000 Units, Swish & Swallow, FOUR TIMES DAILY, First dose on Sat03/13/17 at 1300, Until Discontinued, Swab mouth Given 03/21/2017 500,000 21:09 INTERVENTIONIST Units Given 03/22/2017 500,000 08:04 INTERVENTIONIST Units nystatin (MYCOSTATIN) oral suspension Given 03/25/2017 500,000 500,000 Units 08:21 INTERVENTIONIST Units 500,000 Units, Swish & Swallow, FOUR TIMES DAILY, First dose on Sat03/22/17 at 1300, Until Discontinued, Swab mouth Given 03/25/2017 500,000 13:38 INTERVENTIONIST Units Given 03/25/2017 500,000 20:52 INTERVENTIONIST Units oxyCODONE (ROXICODONE) oral solution Given 03/22/2017 10 mg 5-15 mg 18:15 INTERVENTIONIST 5-15 mg, Feeding Tube, EVERY 4 HOURS PRN, Starting Sat03/22/17 at 1032, Until Sat03/24/17 at 0711, Headache, Pain PO Given 03/22/2017 10 mg 23:54 INTERVENTIONIST Given 03/23/2017 5 mg 06:44 INTERVENTIONIST oxyCODONE (ROXICODONE, OXY-IR) tablet 5 Given 03/26/2017 5 mg mg 10:55 INTERVENTIONIST 5 mg, Oral, EVERY 4 HOURS PRN, Starting Sat03/24/17 at 0711, Until Sat03/26/17 at 1750, Pain PO phenylephrine (ARLINE-SYNEPHRINE) 10 mg in Given - New 03/13/2017 0.8 130.6 mL/hr sodium chloride 0.9% (NS) 250 mL IV drip Bag 16:21 INTERVENTIONIST mcg/kg/min (std conc) 0.5-3 mcg/kg/min 108.8 kg (81.6-489.6 mL/hr) 250 mL, at 81.6-489.6 mL/hr, Intravenous, TITRATE DIRECTED , Starting Sat03/13/17 at 0800, Until Sat03/15/17 at 0913, Initiate at 0.5 mcg/kg/min Titrate to keep: SBP > 130-180 mmHg Std Conc=40 mcg/ml NOTE: For weight-based dosing, use patient dosing weight. Given - New Bag 03/13/2017 0.4 65.3 mL/hr 16:56 INTERVENTIONIST mcg/kg/min Dose/Rate Change 03/13/2017 0.2 32.6 mL/hr 19:42 INTERVENTIONIST mcg/kg/min propofol (DIPRIVAN) 10 mg/mL IV infusion Dose/Rate 03/11/2017 40 27.6 mL/hr 5-60 mcg/kg/min Change 10:26 INTERVENTIONIST mcg/kg/min 115.1 kg (3.453-41.436 mL/hr, rounded to 3.5-41.4 mL/hr) 100 mL, at 3.5-41.4 mL/hr, Intravenous, TITRATE DIRECTED , Starting Sat03/09/17 at 1545, Until Sat03/12/17 at 0930, -Initiate at 10 mcg/kg/min (No loading dose) -Titrate to keep: SYS<140 -Increase in 10 mcg/kg/min increments every 1 minute to achieve goal sedation level. -Call physician if maintenance exceeds 150 mcg/kg/min -Taper agent continuously to lowest effective dose to achieve desired level of sedation keeping patient calm and able to participate in care. NOTE: This is a HIGH ALERT Medication. Given - New Bag 03/11/2017 40 27.6 mL/hr 11:01 INTERVENTIONIST mcg/kg/min Dose/Rate Change 03/11/2017 25 17.3 mL/hr 12:07 INTERVENTIONIST mcg/kg/min QUEtiapine (SEROQUEL) tablet 100 mg Given 03/15/2017 100 mg 100 mg, Oral, TWICE DAILY, 3 doses, 20:26 INTERVENTIONIST First dose on Sat03/15/17 at 2100, Last dose on Sat03/16/17 at 2100 Given 03/16/2017 100 mg 08:01 INTERVENTIONIST Given 03/16/2017 100 mg 22:21 INTERVENTIONIST QUEtiapine (SEROQUEL) tablet 50 mg Given 03/25/2017 50 mg 50 mg, Oral, TWICE DAILY, First dose on 08:21 INTERVENTIONIST 03/17/17 at 0900, Until Discontinued Given 03/25/2017 50 mg 20:51 INTERVENTIONIST Given 03/26/2017 50 mg 14:05 INTERVENTIONIST senna/docusate (SENOKOT-S) solution 10 Given 03/11/2017 10 mL mL 20:08 INTERVENTIONIST 10 mL, Feeding Tube, TWICE DAILY, First dose on 03/09/17 at 2100, Until Discontinued, Hold for loose stools. If patient unable to take tablet, give 10 mL of senna/docusate (SENOKOT-S) solution. Send inKlash message to pharmacy. Given 03/12/2017 10 mL 20:09 INTERVENTIONIST senna/docusate (SENOKOT-S) solution 10 Given 03/24/2017 10 mL mL 09:03 INTERVENTIONIST 10 mL, Oral, TWICE DAILY, First dose on Sat03/24/17 at 0900, Until Discontinued, Hold for loose stools. If patient unable to take tablet, give 10 mL of senna/docusate (SENOKOT-S) solution. Send inKlash message to pharmacy. sodium chloride 0.9 % infusion Given - 03/11/2017 300 mL 150 mL/ hr 1,000 mL, 300 mL, Intravenous, at 150 Bag 10:19 INTERVENTIONIST mL/hr, PRN IN IP DIALYSIS, 2 doses, Starting Sat03/11/17 at 0743, Until Sat03/12/17 at 0919, Other..., Prime Rinse, For Prime/Rinseback sodium chloride 0.9 % infusion Given - 03/13/2017 250 mL 250 mL/ hr 250 mL, 250 mL, Intravenous, at 250 Bag 07:29 INTERVENTIONIST mL/hr, BOLUS, 1 dose, Sat03/13/17 at 0700 sodium chloride 0.9 % infusion Given - 03/13/2017 250 mL 250 mL/ hr 250 mL, 250 mL, Intravenous, at 250 Bag 07:00 INTERVENTIONIST mL/hr, BOLUS, 1 dose, Sat03/13/17 at 0715, In addition to 250ml already given for a total of 500ml this morning sodium chloride 0.9 % infusion Given - 03/14/2017 300 mL 1,000 mL, 300 mL, Intravenous, PRN IN IP Bag 07:29 INTERVENTIONIST DIALYSIS, 2 doses, Starting Sat03/13/17 at 1741, Until Sat03/17/17 at 1803, Other..., Prime Rinse, For Prime/Rinseback sodium chloride 0.9 % infusion Given - 03/16/2017 300 mL 1,000 mL, 300 mL, Intravenous, PRN IN IP Bag 14:15 INTERVENTIONIST DIALYSIS, 2 doses, Starting 03/16/17 at 0520, Until 03/17/17 at 1803, Other..., Prime Rinse, For Prime/Rinseback sodium chloride 0.9 % infusion Given - 03/18/2017 300 mL 1,000 mL, 300 mL, Intravenous, PRN IN IP Bag 14:11 INTERVENTIONIST DIALYSIS, 2 doses, Starting [place] 03/17/17 at 1756, Until Sat03/19/17 at 0316, Other..., Prime Rinse, For Prime/Rinseback sodium chloride 0.9 % infusion Given - 03/19/2017 300 mL 1,000 mL, 300 mL, Intravenous, PRN IN IP Bag 11:15 INTERVENTIONIST DIALYSIS, 2 doses, Starting Sat03/19/17 at 0309, Until Sat03/19/17 at 1200, Other..., Prime Rinse, For Prime/Rinseback sodium chloride 0.9 % infusion Given - 03/21/2017 300 mL 1,000 mL, 300 mL, Intravenous, PRN IN IP Bag 08:30 INTERVENTIONIST DIALYSIS, 2 doses, Starting Becky 03/21/17 at 0514, Until 03/23/17 at 0333, Other..., Prime Rinse, For Prime/Rinseback sodium chloride 0.9 % infusion Given - 03/26/2017 300 mL 1,000 mL, 300 mL, Intravenous, PRN IN IP Bag 08:35 INTERVENTIONIST DIALYSIS, 2 doses, Starting Sat03/26/17 at 0522, Until Sat03/26/17 at 1311, Other..., Prime Rinse, For Prime/Rinseback SODIUM CHLORIDE 0.9 % IV SOLP (Cabinet Given - 03/13/2017 1,000 mL Override) Bag 07:29 INTERVENTIONIST NOW, 1 dose, [facility] 03/13/17 at 0700, Created by cabinet override sodium chloride 23.4 % 30mL IVPB Given - 03/10/2017 90 mL/hr 30 mL, Intravenous, Administer over 20 Bag 20:07 INTERVENTIONIST Minutes, ONCE, 1 dose, [place] 03/10/17 at 2000, NOTE: HYPERTONIC SALINE 23.4% (4mEq/mL) CENTRAL LINE ONLY Ordering provider must be present on unit during 23.4% HTS infusion administration Use Restricted to Critical Care Areas ONLY Delivers: Sodium 4004 mEq/L, osmolarity 8008 mOsm/L. NOTE: This is a HIGH ALERT Medication. sodium chloride PF 0.9% injection 50 mL Given 03/09/2017 50 mL 50 mL, Intravenous, ONCE, 1 dose, Sat 16:45 INTERVENTIONIST 03/09/17 at 1645, Intra-procedure (IR) sodium chloride PF 0.9% injection 50 mL Given 03/10/2017 50 mL 50 mL, Intravenous, ONCE, 1 dose, Sun 20:45 INTERVENTIONIST 03/10/17 at 2045, DO NOT SEND this medication unless it is requested. This med is usually available in floor stock. sodium chloride PF 0.9% injection 50 mL Given 03/13/2017 50 mL 50 mL, Intravenous, ONCE, 1 dose, Wed 09:15 INTERVENTIONIST 03/13/17 at 0915, Intra-procedure (IR) sodium chloride PF 0.9% injection 50 mL Given 03/17/2017 50 mL 50 mL, Intravenous, ONCE, 1 dose, Sun 08:45 INTERVENTIONIST 03/17/17 at 0845, Intra-procedure (IR) in this encounter
--- OUTSIDE RECORDS SUMMARY | 2017-03-26 19:26 | XMS REPORT | Encounter Summary ---
Author Author [facility] Organization [facility] Address Unknown Phone Unavailable Care Team Providers Care Line Maintenance Technician Name Role Phone PCP Unavailable Encounter Details Date Type Department Care Team Description 03/22/2017 Procedure Pass [id number] [place] [address] Social History Tobacco Use Types Packs/Day Years Used Date Current Every Day Smoker 1 30 Sex Assigned at Date Recorded Not on file as of this encounter Functional Status Functional Status Response Date of Assessment Does the patient have a hearing impairment: No 03/15/2017 as of this encounter Plan of Treatment Not on fileas of this encounter Visit Diagnoses Not on filein this encounter
--- OUTSIDE RECORDS SUMMARY | 2017-03-26 19:26 | XMS REPORT | Encounter Summary ---
Author Author [facility] Organization [facility] Address Unknown Phone Unavailable Care Team Providers Care Teaching Assistant Name Role Phone PCP Unavailable Encounter Details Date Type Department Care Team Description 03/11/2017 Procedure [facility] [id number] [place] [address] Social History Tobacco Use Types Packs/Day Years Used Date Current Every Day Smoker 1 30 Sex Assigned at Date Recorded Not on file as of this encounter Plan of Treatment Not on fileas of this encounter Visit Diagnoses Not on filein this encounter
--- OUTSIDE RECORDS SUMMARY | 2017-03-26 19:26 | XMS REPORT | Encounter Summary ---
Author Author [facility] Organization [facility] Address Unknown Phone Unavailable Care Team Providers Care Hris Coordinator Name Role Phone PCP Unavailable Encounter Details Date Type Department Care Team Description 03/13/2017 Procedure Pass [id number] [place] [address] Social History Tobacco Use Types Packs/Day Years Used Date Current Every Day Smoker 1 30 Sex Assigned at Date Recorded Not on file as of this encounter Plan of Treatment Not on fileas of this encounter Visit Diagnoses Not on filein this encounter
--- OUTSIDE RECORDS SUMMARY | 2017-03-26 19:26 | XMS REPORT | Encounter Summary ---
Author Author [facility] Organization [facility] Address Unknown Phone Unavailable Care Team Providers Care Stained Glass Painter Name Role Phone PCP Unavailable Encounter Details Date Type Department Care Team Description 03/13/2017 Procedure Pass [id number] [place] [address] Social History Tobacco Use Types Packs/Day Years Used Date Current Every Day Smoker 1 30 Sex Assigned at Date Recorded Not on file as of this encounter Plan of Treatment Not on fileas of this encounter Visit Diagnoses Not on filein this encounter
--- OUTSIDE RECORDS SUMMARY | 2017-03-26 19:26 | XMS REPORT | Encounter Summary ---
Author Author [facility] Organization [facility] Address Unknown Phone Unavailable Care Team Providers Care Automotive Tire Technician Name Role Phone PCP Unavailable Reason for Visit * Auth/Cert Status Reason Specialty Diagnoses / Referred By Referred To Procedures Contact Contact Diagnoses 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HCC) Brain aneurysm subarachnoid hemorrhage Subarachnoid bleed (HCC) Encounter Details Date Type Department Care Team Description 03/10/2017 Anesthesia [place] Operating Room Afia Person CRNA [address] [address] [place] [address] [phone] Social History Tobacco Use Types Packs/Day Years Used Date Never Assessed Sex Assigned at Date Recorded Not on file as of this encounter OR Notes * Anesthesia Postprocedure Evaluation - Afia Person CRNA - 03/10/2017 10: 59 PM AVIATION NEUROPSYCHOLOGIST Post-Anesthesia Evaluation Name: Naren Mayfield : 1965 Age: 51 y.o. Sex: male Procedure Date: 03/10/2017 Procedure: Procedure(s): REPAIR ANEURYSM CRANIOTOMY Surgeon: Surgeon(s): MD Faraz Oliver MD Post-Anesthesia Vitals BP: 151/73 (03/10 1830) Temp: 37 C (98.6 F) (03/10 1830) Pulse: 68 (03/10 2020) Respirations: 0 PER MINUTE (03/10 1930) SpO2: 99 % (03/10 2020) O2 Delivery: Endotracheal Tube (Oral) (03/10 1830) SpO2 Pulse: 70 (03/10 1930) Post Anesthesia Evaluation Note Evaluation location: ICU Patient participation: patient intubated, unable to assess; expectation of recovery by ICU physician Level of consciousness: intubated & sedated Pain score: Pain scale: unable to assess. Hydration: normovolemia Temperature: 36.0C - 38.4C Airway patency: adequate Perioperative Events Perioperative events: no Post-op nausea and vomiting: PONV status: intubated and sedated. Postoperative Status Cardiovascular status: hemodynamically stable Respiratory status: ETT Additional comments: Department of Anesthesia Post Anesthesia Evaluation & Transfer Note Date of Service: 03/10/2017 Name: Naren Mayfield is a 51 y.o. y.o. male. : 1965 Patient status -post General and with Invasive Monitoring for Repair aneurysm craniotomy. Surgeon: Rohit Vital Signs in ICU BP: 151/73 (03/10 1830) Temp: 37 C (98.6 F) (03/10 1830) Pulse: 68 (03/10 2020) Respirations: 0 PER MINUTE (03/10 1930) SpO2: 99 % (03/10 2020) O2 Delivery: Endotracheal Tube (Oral) (03/10 1830) SpO2 Pulse: 70 (03/10 1930) Respiratory Function: Airway: Intubated prior to arrival to OR/Procedural suite. Ventilator settings: Mode: VC FiO2: .94 Tidal volume: 525 ml Ventilatory rate: 17 breaths/min PEEP: 5 cm H2O Cardiovascular Function: Hemodynamically stable: Yes Vasoactive Drips: Phenylephrine: 0 mcg/kg/min Mental Status: Mental status: Patient intubated, unable to assess and expectation for recovery per ICU physician Pain: Adequate analgesia: Unable to assess Regional block: No Nausea and Vomiting: PONV Control Satisfactory: Unable to assess Hydration Status: Adequate hydration status: Yes Fluids: Crystalloid: 300 ml UOP: 9 ml Blood products/Hemostatic Agents/Anticoagulants: N/A Medications: Case drug total: Antibiotic: ancef; Last dose: 2000 mg @2138 hrs. Paralytic:rocuronium; Last dose: 50 mg @ 2049 hrs. Reversal given @ 2320 hrs. Other drips: N/A Intraoperative Complications/Unanticipated Events: Anesthetic complications: altered EKG leads in II and V. Upon transfer to ICU, Neuro attending notified and will follow with appropriate labs. Lines placed: N/A Special Considerations: N/A Lab Results: Lab Results Component Value Date HGB 9.1 (L) 03/10/2017 HCT 27.7 (L) 03/10/2017 PLTCT 157 03/10/2017 INR 1.3 (H) 03/10/2017 NA 133 (L) 03/10/2017 K 4.1 03/10/2017 GLU 101 (H) 03/10/2017 CA 8.2 (L) 03/10/2017 Lab Results Component Value Date PHART 7.37 03/09/2017 PCO2A 50 (H) 03/09/2017 PO2ART 118 (H) 03/09/2017 HCO3A 27.4 03/09/2017 [id number] 98.6 03/09/2017 BASEEXA 3.3 03/09/2017 Transport: Patient was transported with supplemental oxygen and routine cardiovascular monitoring, including pulse oximetry. Individuals present during transport include Astrid Person CRNA, , MD Ana Luisa, David JONES-neurosurg, RT,Raúl-anesthesia residents Assessment/Plan: The patient was admitted to the ICU under care of RN. Report given to RN and ICU attending; Neuro ICU to follow up on EKG and Labs, radiology or consults.. Afia Person CRNA Perioperative Events Perioperative Event: No Emergency Case Activation: No Associated attestation - Binh Orosco MD - 03/12/2017 7:52 AM AVIATION NEUROPSYCHOLOGIST Post-Anesthesia Evaluation Attestation: I reviewed and agree the indicated post- anesthesia care was provided. * Anesthesia Preprocedure Evaluation - Binh Orosco MD - 03/10/2017 9:59 PM AVIATION NEUROPSYCHOLOGIST Formatting of this note may be different from the original. Anesthesia Pre-Procedure Evaluation Name: Naren Mayfield : 1965 Age: 51 y.o. Sex: male Procedure Date: 03/10/2017 Procedure: Procedure(s): REPAIR ANEURYSM CRANIOTOMY Physical Assessment Vital Signs (last filed in past 24 hours): BP: 151/73 (03/10 1830) ABP: 146/60 (03/10 1930) ART MAP (Calculated) mm H mm Hg (03/10 1930) Temp: 37 C (98.6 F) (03/10 1830) Pulse: 70 (03/10 1930) Respirations: 0 PER MINUTE (03/10 1930) SpO2: 99 % (03/10 1930) O2 Delivery: Endotracheal Tube (Oral) (03/10 1830) Patient History No Known Allergies Current Medications Medication Directions albuterol (VENTOLIN HFA) 90 mcg/actuation inhaler Inhale [...] tablet Take 5 mg by mouth daily. metoprolol tartrate (LOPRESSOR) 100 mg tablet Take 200 mg by mouth twice daily. minoxidil (LONITEN) 10 mg tablet Take 10 mg by mouth twice daily. Review of Systems/Medical History Airway Presently intubated Cardiovascular Hypertension, Hyperlipidemia GI/Hepatic/Renal Renal disease: dialysis and ESRD Neuro/Psych CVA Aneurysmal bleed from right MCA aneurysm 03/09/2017. Sedation with propofol Endocrine/Other Diabetes Physical Exam Airway Findings Pre-existing airway: ETT Neurological Findings: Sedated Comments: Prior to sedation was reportedly moving all four limbs, but obtunded with GCS 7. Escobar and Moore grade 3 upon admission Diagnostic Tests Hematology: Lab Results Component Value Date HGB 9.1 03/10/2017 HCT 27.7 03/10/2017 PLTCT 157 03/10/2017 WBC 9.0 03/10/2017 NEUT 86 03/10/2017 ANC 7.50 03/10/2017 ALC 0.30 03/10/2017 SUZI 8 03/10/2017 AMC 0.70 03/10/2017 EOSA 2 03/10/2017 ABC 0.00 03/10/2017 MCV 92.1 03/10/2017 MCH 30.4 03/10/2017 MCHC 33.0 03/10/2017 MPV 8.8 03/10/2017 RDW 16.5 03/10/2017 General Chemistry: Lab Results Component Value Date NA 133 03/10/2017 K 4.1 03/10/2017 CL 98 03/10/2017 CO2 21 03/10/2017 GAP 14 03/10/2017 BUN 43 03/10/2017 CR 8.05 03/10/2017 GLU 101 03/10/2017 CA 8.2 03/10/2017 ALBUMIN 3.7 03/09/2017 OBSCA 1.01 03/10/2017 MG 2.2 03/10/2017 TOTBILI 0.7 03/09/2017 PO4 8.1 03/10/2017 Coagulation: Lab Results Component Value Date PTT 29.8 03/10/2017 INR 1.3 03/10/2017 Anesthesia Plan ASA score: 4 emergent Plan: general and invasive monitoring Induction method: intravenous NPO status: acceptable and waived due to emergency Comments: (Pt s/p Rt pterional craniotomy for clipping of MCA aneurysm earlier today (03/10). 1-2 hrs post-op in ICU, pt found to have acute change on exam w/ Rt pupil 8mm and NR. Emergently taken to CT and OR for Crainotomy, exploration and possible hematoma evacuation/aneurysm repair. Pt remains intubated w/ all previous lines in place. Cardene gtt at 10mg/hr. Increased to 15mg/hr in CT for SBP 160-170.) Informed Consent Plan discussed with: anesthesiologist, SHELLFISH MANAGER and resident. in this encounter Miscellaneous Notes * Addendum Note - Afia Person CRNA - 03/11/2017 3:40 PM AVIATION NEUROPSYCHOLOGIST Formatting of this note may be different from the original. Addendum created 03/11/17 1540 by Afia Person CRNA Sign clinical note in this encounter Plan of Treatment Not on fileas of this encounter Visit Diagnoses Not on filein this encounter Administered Medications Medication Order MAR Action Action Date Dose Rate Site albuterol (PROAIR HFA, VENTOLIN HFA, or Given 03/10/2017 2 puffs PROVENTIL HFA) inhaler 21:12 AVIATION NEUROPSYCHOLOGIST INTRA-PROCEDURE MED, Starting 03/10/17 at 2111, Until Discontinued, RT PROTOCOL, Anesthesia Intra-op ceFAZolin (ANCEF) injection Given 03/10/2017 2 g INTRA-PROCEDURE MED, Starting Sun 21:38 AVIATION NEUROPSYCHOLOGIST 03/10/17 at 2137, Until Discontinued, Anesthesia Intra-op electrolyte-R (PH 7.4) (NORMOSOL-R Given - New 03/10/2017 PH7.4) injection Bag 20:44 AVIATION NEUROPSYCHOLOGIST INTRA-PROCEDURE MED(CONT), Starting 03/10/17 at 2043, Until Discontinued, Anesthesia Intra-op electrolyte-R (PH 7.4) (NORMOSOL-R Given - New 03/10/2017 PH7.4) injection Bag 20:57 AVIATION NEUROPSYCHOLOGIST INTRA-PROCEDURE MED(CONT), Starting 03/10/17 at 2056, Until Discontinued, Anesthesia Intra-op fentaNYL citrate PF (SUBLIMAZE) Given 03/10/2017 25 mcg injection 20:56 AVIATION NEUROPSYCHOLOGIST INTRA-PROCEDURE MED, Starting 03/10/17 at 2055, Until Discontinued, Pain Injectable, Anesthesia Intra-op Given 03/10/2017 25 mcg 22:11 AVIATION NEUROPSYCHOLOGIST Given 03/10/2017 25 mcg 22:52 AVIATION NEUROPSYCHOLOGIST glycopyrrolate (ROBINUL) injection Given 03/10/2017 0.8 mg INTRA-PROCEDURE MED, Starting Sun 23:21 AVIATION NEUROPSYCHOLOGIST 03/10/17 at 2321, Until 03/10/17 at 2351, Secretions, Anesthesia Intra-op neostigmine (PROSTIGMINE) injection Given 03/10/2017 5 mg INTRA-PROCEDURE MED, Starting Sun 23:21 AVIATION NEUROPSYCHOLOGIST 03/10/17 at 2321, Until 03/10/17 at 2351, Anesthesia Intra-op niCARdipine (cardENE) 20 mg/NS 200 mL Dose/Rate 03/11/2017 15 mg/hr 150 mL/hr infusion (std conc)(premade) Change 01:52 AVIATION NEUROPSYCHOLOGIST 200 mL, 5-15 mg/hr (50-150 mL/hr), at 50-150 mL/hr, Intravenous, TITRATE DIRECTED , Starting 03/09/17 at 1545, Until 03/12/17 at 0930, Initiate at 5 mg/hr Titrate to keep: SYS<140 Call MD if patient's dose is 5 mg/hr and able to tolerate oral medications. Std Conc=0.1 mg/ml Given - New Bag 03/11/2017 5 mg/hr 50 mL/hr 06:50 AVIATION NEUROPSYCHOLOGIST Infusion Restarted 03/11/2017 5 mg/hr 50 mL/hr 10:26 AVIATION NEUROPSYCHOLOGIST phenylephrine (ARLINE-SYNEPHRINE) 10 mg in Infusion 03/10/2017 0.4 69.1 mL /hr sodium chloride 0.9% (NS) 250 mL IV drip Restarted 22:34 AVIATION NEUROPSYCHOLOGIST mcg/kg/min (std conc) 10 mg 250 mL, INTRA-PROCEDURE MED(CONT), Starting 03/10/17 at 2121, Until Discontinued, Anesthesia Intra-op Dose/Rate Change 03/10/2017 0.3 51.8 mL/hr 22:51 AVIATION NEUROPSYCHOLOGIST mcg/kg/min Infusion Restarted 03/10/2017 0.3 51.8 mL/hr 23:04 AVIATION NEUROPSYCHOLOGIST mcg/kg/min propofol (DIPRIVAN) infusion 1,000 mg Dose/Rate 03/10/2017 75 51.8 mL/ hr 1,000 mg Change 22:12 AVIATION NEUROPSYCHOLOGIST mcg/kg/min 100 mL, INTRA-PROCEDURE MED(CONT), Starting 03/10/17 at 2045, Until Discontinued, Anesthesia Intra-op Dose/Rate Change 03/10/2017 50 34.5 mL/hr 22:20 AVIATION NEUROPSYCHOLOGIST mcg/kg/min Given - New Bag 03/10/2017 23:10 AVIATION NEUROPSYCHOLOGIST propofol (DIPRIVAN) injection Given 03/10/2017 80 mg INTRA-PROCEDURE MED, Starting Sun 20:44 AVIATION NEUROPSYCHOLOGIST 03/10/17 at 2043, Until Discontinued, Anesthesia Intra-op rocuronium (ZEMURON) injection Given 03/10/2017 50 mg Intravenous, INTRA-PROCEDURE MED, 20:48 AVIATION NEUROPSYCHOLOGIST Starting [place] 03/10/17 at 2047, Until Discontinued, Anesthesia Intra-op in this encounter
--- OUTSIDE RECORDS SUMMARY | 2017-03-26 19:26 | XMS REPORT | Encounter Summary ---
Author Author [facility] Organization [facility] Address Unknown Phone Unavailable Care Team Providers Care Painter Spring Name Role Phone PCP Unavailable Encounter Details Date Type Department Care Team Description 03/13/2017 Procedure Pass CA7 [address] [place] [address] Social History Tobacco Use Types Packs/Day Years Used Date Current Every Day Smoker 1 30 Sex Assigned at Date Recorded Not on file as of this encounter Plan of Treatment Not on fileas of this encounter Visit Diagnoses Not on filein this encounter
--- OUTSIDE RECORDS SUMMARY | 2017-03-26 19:26 | XMS REPORT | Encounter Summary ---
Author Author [facility] Organization [facility] Address Unknown Phone Unavailable Care Team Providers Care Rehabilitation Program Manager Name Role Phone PCP Unavailable Encounter Details Date Type Department Care Team Description 03/10/2017 Procedure Pass CA Operating Room [address] [place] [address] Social History Tobacco Use Types Packs/Day Years Used Date Never Assessed Sex Assigned at Date Recorded Not on file as of this encounter Plan of Treatment Not on fileas of this encounter Visit Diagnoses Not on filein this encounter
--- OUTSIDE RECORDS SUMMARY | 2017-03-26 19:26 | XMS REPORT | Encounter Summary ---
Author Author [facility] Organization [facility] Address Unknown Phone Unavailable Care Team Providers Care General Medical Practitioner Name Role Phone PCP Unavailable Encounter Details Date Type Department Care Team Description 03/16/2017 Procedure Pass [facility]7 [address] [place] [address] Social History Tobacco Use Types Packs/Day Years [...]
--- OUTSIDE RECORDS SUMMARY | 2017-03-26 19:26 | XMS REPORT | Encounter Summary ---
Author Author [facility] Organization [facility] Address Unknown Phone Unavailable Care Team Providers Care Iuss Acoustic Analyst Name Role Phone PCP Unavailable Encounter Details Date Type Department Care Team Description 03/25/2017 Anesthesia [place] Operating Room Tania Britt CRNA [address] [facility] [address] [place] [address] [place] [address] [phone] Social History Tobacco Use Types Packs/Day Years Used Date Current Every Day Smoker 1 30 Sex Assigned at Date Recorded Not on file as of this encounter Functional Status Functional Status Response Date of Assessment Does the patient have a hearing impairment: No 03/15/2017 as of this encounter OR Notes * Anesthesia Preprocedure Evaluation - Tania Britt CRNA - 03/24/2017 3:11 PM PRISON CLASSIFICATION COUNSELOR Formatting of this note may be different from the original. Anesthesia Pre-Procedure Evaluation Name: Naren Mayfield : 1965 Age: 51 y.o. Sex: male Procedure Date: 03/25/2017 Procedure: Procedure(s): RIGHT FRONTAL CRANIOPLASTY Physical Assessment Vital Signs (last filed in past 24 hours): BP: 182/74 (03/24 1037) ABP: 140/67 (03/23 1700) Temp: 36.7 C (98.1 F) (03/24 1037) Pulse: 62 (03/24 1037) Respirations: 20 PER MINUTE (03/24 1037) SpO2: 95 % (03/24 1037) O2 Delivery: None (Room Air) (03/24 1037) Patient History No Known Allergies Current Medications Medication Directions albuterol (VENTOLIN HFA) 90 mcg/actuation inhaler Inhale 2 puffs by mouth into the lungs every 4 hours as needed for Wheezing or Shortness of Breath. Shake well before use. amLODIPine (NORVASC) 10 mg tablet Take 10 mg by mouth daily. atorvastatin (LIPITOR) 10 mg tablet Take 10 mg by mouth at bedtime daily. baclofen (LIORESAL) 10 mg tablet Take 10 mg by mouth twice daily. calcium acetate (PHOSLO) 667 mg capsule Take two tablets with meals and take one with snacks doxazosin (CARDURA) 8 mg tablet Take 8 mg by mouth at bedtime daily. ferric citrate 210 mg iron tab Take 210 mg by mouth twice daily. furosemide (LASIX) 40 mg tablet Take 40 mg by mouth twice daily. HYDROcodone/acetaminophen (NORCO) 7.5/325 mg tablet Take 1 tablet by mouth every 6 hours as needed for Pain losartan-hydrochlorothiazide (HYZAAR) 100-25 mg tablet Take 1 tablet by mouth every morning. metoprolol XL (TOPROL XL) 200 mg extended release tablet Take 200 mg by mouth twice daily. Review of Systems/Medical History Patient summary reviewed Nursing notes reviewed Pertinent labs reviewed PONV Screening: Postoperative opioids and Non-smoker No history of anesthetic complications No family history of anesthetic complications Airway Presently intubated Pulmonary Not a current smoker COPD Home oxygen use Sleep apnea; noncompliant Former smoker 6 - 8 Pack year Cardiovascular Exercise tolerance: <4 METS Hypertension, Hyperlipidemia Hospitalized since 03/09/2017 GI/Hepatic/Renal No GERD, No peptic ulcer disease Renal disease: dialysis and ESRD Date of last dialysis: Dialyzed 03/23/2017 No nausea No vomiting Left Arm A V Fistula - No BP's, no venipuncture left arm Neuro/Psych No seizures CVA Aneurysmal bleed from right MCA aneurysm 03/09/2017. Sedation with propofol Endocrine/Other Diabetes, well controlled, type 1; using insulin Physical Exam Airway Findings Mallampati: IV TM distance: <3 FB Neck ROM: full Mouth opening: good Airway patency: adequate Dental Findings: Cardiovascular Findings: Negative Rhythm: regular Pulmonary Findings: Negative Breath sounds clear to auscultation. Other Findings: ONLY 1 piece of 1 tooth upper, many lower missing teeth. Poor dentition Sleepy for interview. Discussed with RN - patient does not have motor deficits post craniotomy Up with help in Hallway. Wears Helmet for cranial protection Diagnostic Tests Hematology: Lab Results Component Value Date HGB 10.0 03/24/2017 HCT 29.1 03/24/2017 PLTCT 217 03/24/2017 WBC 7.8 03/24/2017 NEUT 81 03/24/2017 ANC 6.30 03/24/2017 ALC 0.50 03/24/2017 SUZI 9 03/24/2017 AMC 0.70 03/24/2017 EOSA 3 03/24/2017 ABC 0.00 03/24/2017 MCV 89.4 03/24/2017 MCH 30.7 03/24/2017 MCHC 34.3 03/24/2017 MPV 8.0 03/24/2017 RDW 14.7 03/24/2017 General Chemistry: Lab Results Component Value Date NA 137 03/24/2017 K 4.6 03/24/2017 CL 97 03/24/2017 CO2 19 03/24/2017 GAP 21 03/24/2017 BUN 49 03/24/2017 CR 6.39 03/24/2017 GLU 94 03/24/2017 CA 10.1 03/24/2017 ALBUMIN 3.6 03/14/2017 LACTIC 0.8 03/16/2017 OBSCA 1.25 03/23/2017 MG 2.6 03/23/2017 TOTBILI 0.5 03/14/2017 PO4 6.5 03/24/2017 Coagulation: Lab Results Component Value Date PTT 29.8 03/10/2017 INR 1.3 03/10/2017 Anesthesia Plan ASA score: 3 Plan: general in this encounter Plan of Treatment Not on fileas of this encounter Visit Diagnoses Not on filein this encounter
[2017-03-26] MEDS ORDERED: RT-ALBUTEROL SULF 2.5 MG/3 ML PRE-MIX VIAL INH PRN (19:30)
--- OUTSIDE RECORDS SUMMARY | 2017-03-26 19:30 | XMS REPORT | Encounter Summary ---
Author Author [facility] Organization [facility] Address Unknown Phone Unavailable Care Team Providers Care Bed Placement Coordinator Name Role Phone PCP Unavailable Reason for Visit * Auth/Cert Status Reason Specialty Diagnoses / Referred By Referred To Procedures Contact Contact Diagnoses 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HCC) Brain aneurysm subarachnoid hemorrhage Subarachnoid bleed (HCC) Encounter Details Date Type Department Care Team Description 03/10/2017 Surgery [place] Operating Room Edgar Bee MD REPAIR ANEURYSM [address] [place] [address] [address] [place] [address] [phone] Social History Tobacco Use Types Packs/Day Years Used Date Current Every Day Smoker 1 30 Sex Assigned at Date Recorded Not on file as of this encounter Last Filed Vital Signs Vital Sign Reading Time Taken Blood Pressure 192/83 03/26/2017 1:47 PM DRIVER Pulse 72 03/26/2017 1:47 PM DRIVER Temperature 36.8 C (98.3 F) 03/26/2017 1:47 PM DRIVER Respiratory Rate - - Oxygen Saturation 95% 03/26/2017 1:47 PM DRIVER Inhaled Oxygen - - Concentration Weight 105.9 kg (233 lb 7.5 oz) 03/26/2017 12:47 PM DRIVER Height 172.7 cm (5' 8") 03/11/2017 3:28 PM DRIVER Body Mass Index 35.5 03/26/2017 12:47 PM DRIVER in this encounter Functional Status Functional Status [...] Amairani Miller, RN - 03/26/2017 3:49 PM DRIVER Naren Mayfield discharged on 03/26/2017. Discharge instructions reviewed with nurse at rehab facility. Valuables returned: Yes Personal Items / Valuables: Valuables/Belongings home with patient. Home medications: None Functional assessment at discharge complete: Yes PIV removed prior to discharge. Report called to RN at rehab facility. All questions addressed and answered. * Melisa Emery APRN - 03/26/2017 12:43 PM DRIVER Formatting of this note may be different [...] (HCC) Added automatically from request for surgery [id number] IVH (intraventricular hemorrhage) (HCC) Intraparenchymal hematoma of brain (HCC) Subarachnoid bleed (HCC) Acquired skull defect Added automatically from request for surgery [id number] SBP goal - normotensive Nimotop SQH Keppra [...] assessed for need for restraints. Please call [phone] with questions. Melisa Emery APRN * Eddie Oconnor MBBS - 03/26/2017 10:43 AM DRIVER Formatting of this note may be different [...] renal standpoint. CIPRIANO De La Rosa Pager [phone] Subjective Naren Mayfield is a 51 y.o. [...] 20,000 Units/ sodium bicarbonate 650 mg(#) PRN (Senior Adults Director from Rx), sodium chloride 0.9% (NS) IP [...] edema Skin: no rash Labs Recent Labs 03/24/1741203/25/1742603/26/17419 NA 137 136* 134* K 4.6 4.7 5.7* CL 97* 96* 93* CO2 19* 17* 16* GAP 21* 23* 25* BUN 49* 66* 77* CR 6.39* 8.73* 10.46* GLU 94 91 118* CA 10.1 10.5 11.0* PO4 6.5* -- -- Recent Labs 03/24/1741203/25/1742603/26/17419 WBC 7.8 7.3 6.1 HGB 10.0* 9.3* [...] Carie Kinney, OT - 03/26/2017 10:00 AM DRIVER OCCUPATIONAL THERAPY NO TREATMENT NOTE Patient off unit to dialysis at this time and unavailable for occupational therapy. OT will continue to follow. Therapist: ROME Portillo/Omar [id number] Date: 03/26/2017 * Miguel Angel Godoy, PT - 03/25/2017 10:57 AM DRIVER PHYSICAL THERAPY PROGRESS NOTE MOBILITY: Mobility Progressive [...] level of rehabilitation placement Therapist: Miguel Angel Godoy PT Date: 03/25/2017 * Sharyn Rutledge - 03/25/2017 10:54 AM DRIVER Formatting of this note may be different from the original. OCCUPATIONAL THERAPY PROGRESS NOTE Patient Name: Naren Mayfield Room/Bed: [place] [address] Admitting Diagnosis: subarachnoid hemorrhage Subarachnoid bleed (HCC) [...] presenting from OSH after being at dialysis / when he became acutely unresponsive. CT was [...] early to be determined Therapist: Sharyn Monroy OTR/Omar 5294 Date: 03/25/2017 * Eddie Oconnor MBBS - 03/25/2017 10:17 AM DRIVER Formatting of this note may be different [...] with dialysis. CIPRIANO De La Rosa Pager [phone] Subjective Naren Mayfield is a 51 y.o. [...] Units/ sodium bicarbonate 650 mg(#) PRN ( Senior Adults Director from Rx), sodium chloride 0.9% (NS) IP [...] Intensity Pain Scale 0-10 (Pain 1): 8 (03/25/171840) Intake/Output Summary (Last 24 hours) at 03/25/172016 [...] Skin: no rash Labs Recent Labs 03/23/1743803/24/1741203/25/17 042 NA 136* 137 136* K 4.2 4.6 4.7 CL 92* 97* 96* CO2 17* 19* 17* GAP 27* 21* 23* BUN 78* 49* 66* CR 8.84* 6.39* 8.73* GLU 91 94 91 CA 10.9* 10.1 10.5 MG 2.6 -- -- PO4 8.6* 6.5* -- Recent Labs 03/23/17 04303/24/1741203/25/17 042 WBC 6.8 7.8 7.3 HGB 9.3* [...] Dolores Simmons APRN - 03/25/2017 8:46 AM DRIVER Formatting of this note may be different [...] (HCC) Added automatically from request for surgery [id number] IVH (intraventricular hemorrhage) (HCC) Intraparenchymal hematoma of brain (HCC) Subarachnoid bleed (HCC) Acquired skull defect Added automatically from request for surgery [id number] SBP goal - normotensive Nimotop SQH Keppra (renal dosing) PT/OT - inpatient rehab - plan for [place] pending cranioplasty-if can be placed will wait to complete cranioplasty CT head 03/23 reviewed Prophylaxis: A)GI: PPI B) Lines: No C) Urinary Catheter: No D) Antibiotic Usage: No E) VTE: Pharmacological prophylaxis; SQ Heparin and Mechanical prophylaxis; Sequential compression device F) Restraints: Patient assessed for need for restraints. Please call [phone] with questions. Maria Dolores Simmons APRN [id number] - 03/24/2017 4:28 PM DRIVER ORTHOTICS/PROSTHETICS Follow-up Note: NAME: Naren Mayfield ROOM: [place] [address] DIAGNOSIS: brain bleed DATE OF INITIAL CONSULT: [...] Thank you Orthotics can be reached at [phone]. Jay Mortensen * Montana Moore MD - 03/24/2017 9:00 AM DRIVER Formatting of this note may be different [...] (HCC) Added automatically from request for surgery [id number] IVH (intraventricular hemorrhage) (HCC) Intraparenchymal hematoma of brain (HCC) Subarachnoid bleed (HCC) SBP goal - normotensive Nimotop SQH Keppra (renal dosing) PT/OT - inpatient rehab - plan for [place] pending cranioplasty Corpak out, continue to monitor [...] assessed for need for restraints. Please call [phone] with questions. Saeid Nix MD ATTESTATION pollution control engineer neurosurgery attending coverage. Patient seen and reviewed with resident team. Present management. Staff name: Montana Moore MD Date: 03/24/2017 * Jimena Rogel, RT - 03/24/2017 8:53 AM DRIVER Formatting of this note may be different [...] Date: 03/24/2017 Rubin AC=Airway clearance AM=Aerosolized medication BA=[place] aerosol DB&C=Deep breathe & cough FEV1=Forced expiratory volume in first second) IC=Inspiratory capacity LE=Lung expansion MDI=Metered dose inhaler Neb=Nebulizer O2=Oxygen Oxim=Oximetry PEFR=Peak expiratory flow rate EMBEDDED ENGINEER=Rapid Response Team * Yesenia Mendoza RN - 03/24/2017 8:25 AM DRIVER Patient up to chair but refusing to wear helmet because he states it is too small. This RN contacted [facility] [employer] about getting a larger helmet. * Consuelo Cox RN - 03/24/2017 7:11 AM DRIVER Neuro surgery paged. Pt removed Corpak last night, day RN in need of morning medications changed to PO medications. MD Nix placed the orders to change medications. Will continue to monitor. * Consuelo Cox RN - 03/24/2017 1:40 AM DRIVER Neuro surg paged. Pt's corpak came out after requesting tylenol, RN told MD that pt is tolerating nector thick liquids well. MD Nix notified and told RN told leave the corpak out and change the tylenol order to PO. * Yesenia Mendoza RN - 03/23/2017 6:47 PM DRIVER Patient arrived on unit via bed accompanied by RN. Patient transferred to the bed with assistance. Assessment completed, refer to flowsheet for details. Orders released, reviewed, and implemented as appropriate. Oriented to surroundings, call light within reach. Plan of care reviewed. Will continue to monitor and assess. * Ryan Villagran MD - 03/23/2017 3:25 PM DRIVER Formatting of this note may be different [...] per neuro team Ryan Villagran MD Pager [phone] Subjective Naren Mayfield is a 51 y.o. [...] 000 Units/ sodium bicarbonate 650 mg(#) PRN (Senior Adults Director from Rx), sodium chloride 0.9% (NS) IP [...] Skin: no rash Labs Recent Labs 03/21/17 03403/22/17 0350 03/23/17 0439 NA 137 135* 136* K 3.6 4.1 4.2 CL 94* 95* 92* CO2 17* 19* 17* GAP 26* 21* 27* BUN 75* 51* 78* CR 7.98* 6.31* 8.84* GLU 140* 153* 91 CA 10.7* 10.2 10.9* MG 2.5 2.4 2.6 PO4 7.0* 6.3* 8.6* Recent Labs 03/21/17 03403/22/17 0350 03/23/17 0439 WBC 8.6 8.6 6.8 [...] Montana Moore MD - 03/23/2017 2:54 PM DRIVER Formatting of this note may be different [...] (HCC) Added automatically from request for surgery [id number] IVH (intraventricular hemorrhage) (HCC) Intraparenchymal hematoma of brain (HCC) Subarachnoid bleed (HCC) Continue monitoring for seizure activity - renal keppra dosing SBP - normotensive Nimotop SQH Keppra PT/OT - inpatient rehab - plan for [facility] [place] by [facility] when able Pending Corpak removal based on intake Possible cranioplasty Saturday Prophylaxis: A)GI: PPI B) Lines: Yes; Central Line; Indication: Hemodialysis/Plasmapheresis; Type: Implanted subcutaneous access device C) Urinary Catheter: No D) Antibiotic Usage: No E) VTE: Pharmacological prophylaxis; SQ Heparin and Mechanical prophylaxis; Sequential compression device F) Restraints: Patient assessed for need for restraints. Miguel Angel Jaime MD 5070 Please call [phone] with any questions. ATTESTATION pollution control engineer neurosurgery attending coverage. Patient seen and reviewed with resident team. Present management. Staff name: Montana Moore MD Date: 03/23/2017 * Matheus López RT - 03/23/2017 8:20 AM DRIVER Formatting of this note may be different [...] Cell Crisis OR Anemia (<10) OR Acute OH (02 & oxim) Patient Assessment * Respiratory [...] Date: 03/23/2017 Rubin AC=Airway clearance AM=Aerosolized medication BA=[place] aerosol DB&C=Deep breathe & cough FEV1=Forced expiratory volume in first second) IC=Inspiratory capacity LE=Lung expansion MDI=Metered dose inhaler Neb=Nebulizer O2=Oxygen Oxim=Oximetry PEFR=Peak expiratory flow rate EMBEDDED ENGINEER=Rapid Response Team * Portia Johnson, RD - 03/22/2017 4:01 PM DRIVER CLINICAL NUTRITION Clinical Nutrition Follow-Up Summary Nutrition Assessment of Patient: Malnutrition Assessment: Does not meet criteria Current Oral Intake: Inadequate (new start of pureed today) Estimated Calorie Needs: 5065-3820 (30-32 kcal/kg desired wt) Estimated Protein Needs: 110-135 (1.5-1.8 g /kg desired wt) Oral Diet Order: Pureed, [place] Thick Liquids Oral Supplement: Nutrisource Fiber, TID, [...] injuries noted. BM 03/22 (rectal tube out). ENVIRONMENTAL CONSTRUCTION ENGINEER evaluated pt safe for pureed diet with nectar thick liquids today and EN feeds discontinued. Primary team added 3 packs Nutrisource fiber ( 1 per each meal). FSBS 128-219 with correction insulin on board. ENVIRONMENTAL CONSTRUCTION ENGINEER continuing to follow pt for oral intake safety and options. Recommendation: Continue to encourage po inake on pureed diet with nectar thick fluids. Add CIB in nectar thick milk daily and PRN if tolerated with renal/diabetes status. Intervention / Plan: monitor po intake, wt trends, labs, meds, GI status monitor ENVIRONMENTAL CONSTRUCTION ENGINEER findings and recs Nutrition Diagnosis: Nutrition Diagnosis: Altered GI function Etiology: swallowing deficits s/p SAH/extubation Signs & Symptoms: pureed diet with nectar thick fluids per ENVIRONMENTAL CONSTRUCTION ENGINEER recs Goals: EN tolerated and meeting >85% of nutritional needs Time Frame: Throughout Stay Status: Partially met;no longer appropriate Patient to consume >50% of meals Time Frame: Within [address] * Lilian Garcia - 03/22/2017 1:57 PM DRIVER SPEECH-LANGUAGE PATHOLOGY COGNITIVE ASSESSMENT // SWALLOW TREATMENT [...] per hour). Please follow precautions posted at [facility]. Will continue to follow for ongoing dysphagia [...] safety problems given min cues. Therapist: Omar Ames/ISMAEL-ENVIRONMENTAL CONSTRUCTION ENGINEER [phone] Date: 03/22/2017 * Elaine Nicholson APRN - 03/22/2017 12:18 PM DRIVER Pt hemodynamically stable and neuro exam unchanged. Discussed with primary team and NEICU Team to sign off at this time. Please page [phone] with any questions. Thank you for this consult. * Sharyn Rutledge - 03/22/2017 11:32 AM DRIVER Formatting of this note may be different from the original. OCCUPATIONAL THERAPY PROGRESS NOTE Patient Name: Naren Mayfield Room/Bed: KG8410/01 Admitting Diagnosis: subarachnoid hemorrhage Subarachnoid bleed (HCC) [...] Cooperative to Participate Persons Present: (OT student; certified ophthalmic technologist) ADL's Where Assessed: In Bathroom Eating Assist: [...] Carole Sloan, PT - 03/22/2017 10:09 AM DRIVER PHYSICAL THERAPY PROGRESS NOTE MOBILITY: Mobility Progressive [...] / Cognitive Status: Cooperative;Alert;Follows Commands Persons Present: Talent Acquisition Director Pain: Patient has no complaint of pain [...] Jeancarlos Menendez MD - 03/22/2017 7:41 AM DRIVER Formatting of this note may be different from the original. Neuroscience Critical Care Progress Note Naren Mayfield Admission Date: 03/09/2017 LOS: 13 days ASSESSMENT/PLAN Patient Active Problem List Diagnosis Date Noted IVH (intraventricular hemorrhage) (HCC) 03/09/2017 Intraparenchymal hematoma of brain (HCC) 03/09/2017 Subarachnoid bleed (HCC) 03/09/2017 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HCC) 03/09/2017 Added automatically from request for surgery [id number] Naren Mayfieldis a 51 y.o.malewith PMH of [...] 130-180 to help with vasospasms - Nimodipine [id number] - Continue Keppra 1500mg daily after dialysis - TCDs Daily - Neuro-ICU monitoring, neurochecks q 2 hrs Sedation/Pain Management: Yes -ICU delirium - Stop Precedex - Fentanyl PRN - Seroquel BID 50mg - Haldol prn - Melatonin 3mg Qhs - Delirium protocol Cardiac: HTN, HLD - SBP goal: 130-180 - MAP goal > 65 - EKG with SR, LVH - 03/11 Restart QUARRY MANAGER minoxidil and metoprolol BID - 03/11 ECHO [...] Potassium goal >4.0 mEq/L Prophylaxis Review: A) GI:F1Lqfpxxf B) Lines:2 peripheral lines and Right arterial [...] (03/22 0700) O2 Delivery: Nasal Cannula (03/22 0700) Weight: 103.2 kg (227 lb 8.2 oz) [...] 20,000 Units/ sodium bicarbonate 650 mg(#) PRN (Senior Adults Director from Rx), sodium chloride 0.9% (NS) IP [...] 0350) POC Glucose (Download): (!) 155 (03/22/17 4972) Radiology and Other Diagnostic Procedures Review: Reviewed and discussed above. Jeancarlos Menendez MD Date: 03/22/[phone] Associated attestation - Derrell Bowers MD - 03/22/2017 2:30 PM DRIVER Formatting of this note may be different [...] Adi Gonzalez, RT - 03/21/2017 10:39 PM DRIVER RN placed Mr. Mayfield on 2 Lpm Nasal cannula to keep saturation above 92%. * Jarett Sultana, RN - 03/21/2017 8:30 PM DRIVER Neurosurgery notified of pt guarding abdomen where bone flap is, his right lower quadrant of the abdomen. Neurosurgery at bedside to assess. Pt states its tender. Orders to monitor redness and site. Will continue to monitor. * Patti Mcclure - 03/21/2017 4:12 PM DRIVER SPEECH-LANGUAGE PATHOLOGY VIDEOSWALLOW ASSESSMENT EVALUATION SUMMARY Videoswallow [...] hour ). Please follow precautions posted at [facility]. 2:Will continue to follow for ongoing dysphagia [...] on pharyngeal structures. Swallow Recommendations* PO: Pureed, [place] Thick Liquids Swallow Strategies: Supervision During Meals [...] Fed Self Thin Liquid: 1 Tsp, Cup [place] Thick Liquid: 1 Tsp, Cup Other Consistencies: [...] cognitive evaluation with moderate cues. Therapist: Patti Nava M.S., CCC-L/ENVIRONMENTAL CONSTRUCTION ENGINEER Pager:[phone] Office:[phone] Date: 03/21/2017 * Consuelo Ayala, RN - 03/21/2017 3:30 PM DRIVER Patient transported to radiology for a video swallow with this RN and transport. Patient tolerated transport and procedure without any complications. * Sharyn Rutledge - 03/21/2017 1:44 PM DRIVER OCCUPATIONAL THERAPY PROGRESS NOTE Patient Name: Naren Mayfield Room/Bed: UH4618/01 Admitting Diagnosis: subarachnoid hemorrhage Subarachnoid bleed (HCC) [...] determined Therapist: Sharyn Monroy, OTR/L 5294 Date: 03/21/2017 * Carole Sloan, PT - 03/21/2017 1:44 PM DRIVER PHYSICAL THERAPY PROGRESS NOTE MOBILITY: Mobility Progressive [...] Tracie Mitchell MD - 03/21/2017 1:15 PM DRIVER Formatting of this note may be different [...] per neuro team Tracie Mitchell MD Pager [phone] Subjective Naren Mayfield is a 51 y.o. [...] 20,000 Units/ sodium bicarbonate 650 mg(#) PRN (Senior Adults Director from Rx) , sodium chloride 0.9% (NS) [...] edema Skin: no rash Labs Recent Labs 03/19/1741703/20/178 03/21/17 0340 NA 136* 135* 137 K [...] PO2ART 85 65* Tracie Mitchell MD Pager [phone] * Jeancarlos Menendez MD - 03/21/2017 7:22 AM DRIVER Formatting of this note may be different from the original. Neuroscience Critical Care Progress Note Naren Mayfield Admission Date: 03/09/2017 LOS: 12 days ASSESSMENT/PLAN Patient Active Problem List Diagnosis Date Noted IVH (intraventricular hemorrhage) (HCC) 03/09/2017 Intraparenchymal hematoma of brain (HCC) 03/09/2017 Subarachnoid bleed (HCC) 03/09/2017 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HCC) 03/09/2017 Added automatically from request for surgery [id number] Naren Mayfieldis a 51 y.o.malewith PMH of [...] 130-200 to help with vasospasms - Nimodipine [id number] - Continue Keppra 1500mg daily after dialysis - TCDs Daily - Neuro-ICU monitoring, neurochecks q 2 hrs Sedation/Pain Management: Yes -ICU delirium - Stop Precedex - Fentanyl PRN - Seroquel BID 50mg - Haldol prn - Melatonin 3mg Qhs - Delirium protocol Cardiac: HTN, HLD - SBP goal: 130-180 - MAP goal > 65 - EKG with SR, LVH - 03/11 Restart QUARRY MANAGER minoxidil and metoprolol BID - 03/11 ECHO [...] Potassium goal >4.0 mEq/L Prophylaxis Review: A) GI:W9Cglvmxs B) Lines:2 peripheral lines and Right arterial [...] 20,000 Units/ sodium bicarbonate 650 mg(#) PRN (Senior Adults Director from Rx), sodium chloride 0.9% (NS) IP [...] discussed above. Jeancarlos Menendez MD Date: 03/21/[phone] Associated attestation - Derrell Bowers MD - 03/21/2017 12:29 PM DRIVER Formatting of this note may be different from the original. ATTESTATION I have seen, personally fully evaluated, and discussed patient with Dr Menendez and [facility]. I agree with the objective findings [...] * Sharyn Rutledge - 03/20/2017 1:43 PM DRIVER OCCUPATIONAL THERAPY PROGRESS NOTE Patient Name: Naren Mayfield Room/Bed: [place] [address] Admitting Diagnosis: subarachnoid hemorrhage Subarachnoid bleed (HCC) [...] Carole Sloan, PT - 03/20/2017 1:42 PM DRIVER PHYSICAL THERAPY PROGRESS NOTE MOBILITY: Mobility Progressive [...] Jeancarlos Menendez MD - 03/20/2017 11:24 AM DRIVER Formatting of this note may be different from the original. Neuroscience Critical Care Progress Note Naren Mayfield Admission Date: 03/09/2017 LOS: 11 days ASSESSMENT/PLAN Patient Active Problem List Diagnosis Date Noted IVH (intraventricular hemorrhage) (HCC) 03/09/2017 Intraparenchymal hematoma of brain (HCC) 03/09/2017 Subarachnoid bleed (HCC) 03/09/2017 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HCC) 03/09/2017 Added automatically from request for surgery [id number] Naren Dickens a 51 y.o.malewith PMH of [...] 130-200 to help with vasospasms - Nimodipine [id number] - Continue Keppra 1500mg daily after dialysis - TCDs Daily - Neuro-ICU monitoring, neurochecks q 2 hrs Sedation/Pain Management: Yes -ICU delirium - Stop Precedex - Fentanyl PRN - Seroquel BID 50mg - Haldol prn - Delirium protocol Cardiac: HTN, HLD - SBP goal: 130-180 - MAP goal > 65 - EKG with SR, LVH - 03/11 Restart QUARRY MANAGER minoxidil and metoprolol BID - 03/11 ECHO [...] Potassium goal >4.0 mEq/L Prophylaxis Review: A) GI:I7Eahgqmm B) Lines:2 peripheral lines and Right arterial [...] 20,000 Units/ sodium bicarbonate 650 mg(#) PRN (Senior Adults Director from Rx) Critical Care Vitals: ICP Monitoring: [...] (Last 24 hours): Glucose: (!) 132 (03/20/17 0428) POC Glucose (Download): (!) 150 (03/20/17 9214) Radiology and Other Diagnostic Procedures Review: Reviewed and discussed above. Jeancarlos Menendez MD Date: 03/20/[phone] Associated attestation - Derrell Bowers MD - 03/20/2017 11:49 AM DRIVER Formatting of this note may be different from the original. ATTESTATION I have seen, personally fully evaluated, and discussed patient with Dr Menendez and the [facility] team. I agree with the objective findings and agree with the plan of care as documented by the resident with the exceptions noted. The patient is critically ill with SAH s/p clipping, EDH s/p evacuation, ESRD c/b metabolic acidosis, pleural effusion and hypoxemia. Restart amlodipine 10 mg daily (QUARRY MANAGER med), may need addition of clonidine to [...] * Patti Mcclure - 03/20/2017 10:00 AM DRIVER SPEECH-LANGUAGE PATHOLOGY DAILY TREATMENT NOTE Patient seen [...] per hour). Please follow precautions posted at [facility]. Continue temporary alternate source of nutrition. 2:Will continue to follow for ongoing dysphagia management and cognitive evaluation as able to complete. 3:Pt will require ongoing speech services at the next level of care. Consistent supervision recommended upon discharge as anticipate patient's impaired memory & attention will potentially impact their safety. 4: Videoswallow 03/21-discussed with Primary team and ICU team. [...] to follow 5x per week. Therapist: Patti Nava M.S., CCC-L/ENVIRONMENTAL CONSTRUCTION ENGINEER Pager:[phone] Office:[phone] Date: 03/20/2017 * Mel Ortiz - 03/19/2017 2:50 PM DRIVER ORTHOTICS/PROSTHETICS Consult Note: NAME: Naren Mayfield ADMISSION DATE: admitted to hospital : 1965 AGE: 51 y.o. ROOM: [place] [address] DOCTOR: Date of Order: 03/19 Date of [...] Tracie Mitchell MD - 03/19/2017 1:28 PM DRIVER Formatting of this note may be different [...] per neuro team Tracie Mitchell MD Pager [phone] Subjective Naren Mayfield is a 51 y.o. [...] 20,000 Units/ sodium bicarbonate 650 mg(#) PRN (Senior Adults Director from Rx) Physical Exam Vital Signs: Last [...] PO2ART 96 108* Tracie Mitchell MD Pager [phone] * Portia Johnson, RD - 03/19/2017 11:50 AM [facility] CLINICAL NUTRITION Clinical Nutrition Follow-Up Summary Nutrition Assessment of Patient: Malnutrition Assessment: Does not meet criteria Current Oral Intake: NPO Estimated Calorie Needs: 5384-0764 (30-32 kcal/kg desired wt) Estimated Protein Needs: 111-133g (1.5-1.8g/kg desired wt 74kf) Oral Diet Order: NPO Intake (calories) Daily Average : 1786 kilocalories (3 day EN/Prosource ave 03/16; 80% goal) Intake (protein) Daily Average : 118 grams (3 day EN/Prosource ave 03/16-; within goal range) Current EN Order: Novasource Renal @ 40ml/hr with 30ml water bolus [id number] and 3 packs Prosource per day. This [...] on dialysis, and diabetes. Upon arrival to [facility], pt was intubated. 03/10 s/p clipping and craniectomy. Off propofol 03/12, extubated 03/15. Pt with corpak tip still in stomach per 03/17 [facility]. EN began 12:00 on 03/12 with Novasource Renal. Currently at goal rate of 40 ml/hr. 3 day EN/Prosource average met 80% min kcal goal and within protein goal range. Last dialysis 03/18 with plans for HD today d/t acidosis per renal note of 03/18. No edema currently noted per RN, no pressure injuries noted. BM 03/19. Primary team adding 3 packs Nutrisource fiber starting today. Pt tolerating EN fine per RN. FSBS 121-194 with low dose correction insulin on board. ENVIRONMENTAL CONSTRUCTION ENGINEER to see pt for oral intake safety [...] carb diabetic diet order with texture per ENVIRONMENTAL CONSTRUCTION ENGINEER. Intervention / Plan: re-eval of kcal goals with HD Monitor EN tolerance/provision monitor wt trends, labs, meds, GI status monitor for swallow eval and ability to advance diet per ENVIRONMENTAL CONSTRUCTION ENGINEER Nutrition Diagnosis: Nutrition Diagnosis: Altered GI function Etiology: swallowing deficits s/p SAH/extubation Signs & Symptoms: NPO with EN feeds and plans for ENVIRONMENTAL CONSTRUCTION ENGINEER eval Goals: EN tolerated and meeting >85% of nutritional needs Time Frame: Throughout Stay Status: Partially met;Ongoing Portia Johnson, TAE * Patti Mcclure - 03/19/2017 11:44 AM DRIVER SPEECH-LANGUAGE PATHOLOGY CLINICAL SWALLOW ASSESSMENT EVALUATION SUMMARY Summary: Clinical swallow evaluation completed this date. Moderate to severe oropharyngeal dysphagia present 2* prolonged intubation. Please see details below. RECOMMENDATIONS: 1:NPO with ice chips only (15-20 per hour). Please follow precautions posted at [facility]. Continue temporary alternate source of nutrition. 2:Will [...] 3-5x per week. Prognosis: Good NOMS Dysphagia Ratin7-Xpkaplwshj-Hgrdcs Dysphagia -Not able to swallow safely by [...] Of Nutrition: NPO ORAL MECH EXAM [facility] WFL*: Face asymmetrical upon labial retraction [...] evaluation with moderate cues. Therapist:Patti Nava M.S., CCC-L/ENVIRONMENTAL CONSTRUCTION ENGINEER Pager:[phone] Office:[phone] Date:03/19/2017 * Jeancarlos Menendez MD - 03/19/2017 11:17 AM DRIVER Formatting of this note may be different from the original. 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 Added automatically from request for surgery [id number] Naren Mayfieldis a 51 y.o.malewith PMH of [...] 130-200 to help with vasospasms - Nimodipine [id number] - Continue Keppra 1500mg daily after dialysis - TCDs Daily - Neuro-ICU monitoring, neurochecks q 1 hrs Sedation/Pain Management: Yes -ICU delirium - Stop Precedex - Fentanyl PRN - Seroquel BID 50mg - Haldol prn - Delirium protocol Cardiac: HTN, HLD - SBP goal: 130-180 - MAP goal > 65 - EKG with SR, LVH - 03/11 Restart QUARRY MANAGER minoxidil and metoprolol BID - 03/11 ECHO [...] Potassium goal >4.0 mEq/L Prophylaxis Review: A) GI:Y1Akkngom B) Lines:2 peripheral lines and Right arterial [...] 20,000 Units/ sodium bicarbonate 650 mg(#) PRN (Senior Adults Director from Rx), sodium chloride 0.9% (NS) IP [...] (Last 24 hours): Glucose: (!) 166 (03/19/17 1959) POC Glucose (Download): (!) 163 (03/19/17 8681) Radiology and Other Diagnostic Procedures Review: Reviewed and discussed above. Jeancarlos Menendez MD Date: 03/19/[phone] Associated attestation - Derrell Bowers MD - 03/19/2017 1:59 PM DRIVER Formatting of this note may be different from the original. ATTESTATION I have seen, personally fully evaluated, and discussed patient with Dr Menendez [facility]. I agree with the objective findings [...] * Sharyn Rutledge - 03/19/2017 8:59 AM DRIVER OCCUPATIONAL THERAPY PROGRESS NOTE Patient Name: Naren Mayfield Room/Bed: [id number]/ Admitting Diagnosis: subarachnoid hemorrhage Subarachnoid bleed (HCC) [...] determined Therapist: Sharyn Monroy, OTR/L 5294 Date: 03/19/2017 * Carole Sloan, PT - 03/19/2017 8:58 AM DRIVER PHYSICAL THERAPY PROGRESS NOTE MOBILITY: Mobility Progressive Mobility Level: Stand Level of Assistance: Assist X2 Assistive Device: Hand Held Time Tolerated: 11-30 minutes Activity Limited By: Fatigue SUBJECTIVE: Subjective Significant hospital events: 51 y.o. male presenting from OSH after being at dialysis 12/2 when he became acutely unresponsive. CT was [...] Score: 22.61 Basic Mobility CMS 0-100%: 85.35 CMS G Code Modifier for Basic Mobility: CM [...] Tracie Mitchell MD - 03/18/2017 3:42 PM DRIVER Formatting of this note may be different [...] well so far Tracie Mitchell MD Pager [phone] Subjective Naren Mayfield is a 51 y.o. [...] 20,000 Units/ sodium bicarbonate 650 mg(#) PRN (Senior Adults Director from Rx) , sodium chloride 0.9% (NS) IP Dialysis PRN, sodium chloride 0.9% (NS) IP Dialysis PRN Stopped at 03/18/17 1415, sodium chloride 0.9% (NS) IP Dialysis PRN Physical Exam Vital Signs: Last Filed In 24 Hours Vital Signs: 24 Hour Range Temp: 36.7 C (98.1 F) (03/18 1411) Pulse: 75 (03/180) Respirations: 19 PER MINUTE (03/18 153) SpO2: [...] PO2ART 108* 96 Tracie Mitchell MD Pager [phone] * Yesenia Yoon, PT - 03/18/2017 9:38 AM DRIVER PHYSICAL THERAPY PROGRESS NOTE MOBILITY: Progressive Mobility [...] Too early to be determined Therapist: Yesenia Yoon, PT Date: 03/18/2017 * Sharyn Rutledge - 03/18/2017 9:38 AM DRIVER OCCUPATIONAL THERAPY PROGRESS NOTE Patient Name: Naren Mayfield Room/Bed: [id number] Admitting Diagnosis: subarachnoid hemorrhage Subarachnoid bleed (HCC) [...] determined Therapist: Sharyn Monroy, OTR/L 5294 Date: 03/18/2017 * Jeancarlos Menendez MD - 03/18/2017 7:54 AM DRIVER Formatting of this note may be different from the original. Neuroscience Critical Care Progress Note Naren Mayfield Admission Date: 03/09/2017 LOS: 9 days ASSESSMENT/PLAN Patient Active Problem List Diagnosis Date Noted IVH (intraventricular hemorrhage) ([facility]) 03/09/2017 Intraparenchymal hematoma of brain ([facility]) 03/09/2017 Subarachnoid bleed ([facility]) 03/09/2017 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[facility]) 03/09/2017 Added automatically from request for surgery [id number] Naren Mayfieldis a 51 y.o.malewith PMH of [...] 130-180 to help with vasospasms - Nimodipine [id number] - Continue Keppra 1500mg daily after dialysis - TCDs Daily - Neuro-ICU monitoring, neurochecks q 1 hrs Sedation/Pain Management: Yes -ICU delirium - Precedex starterd overnight-will try and come off - Fentanyl PRN - Seroquel BID 50mg - Haldol prn - Delirium protocol Cardiac: HTN, HLD - SBP goal: 130-180 - MAP goal > 65 - EKG with SR, LVH - 03/11 Restart QUARRY MANAGER minoxidil and metoprolol BID - 03/11 ECHO [...] Potassium goal >4.0 mEq/L Prophylaxis Review: A) GI:B2Llznvlc B) Lines:2 peripheral lines and Right arterial [...] BP: 200/88 (03/17 1100) ABP: 186/71 (03/18 700) Temp: 37.4 C (99.3 F) (03/18 0400) Pulse: 79 (03/18 700) Respirations: 16 PER MINUTE (03/18 700) SpO2: [...] 20,000 Units/ sodium bicarbonate 650 mg(#) PRN (Senior Adults Director from Rx), sodium chloride 0.9% (NS) IP [...] SpO2 94 %. General appearance: well-developed Neurologic: [place] coma score: E: 2 M: 6 V: [...] discussed above. Jeancarlos Menendez MD Date: 03/18/[phone] Associated attestation - Derrell Bowers MD - 03/18/2017 12:46 PM DRIVER Formatting of this note may be different from the original. ATTESTATION I have seen, personally fully evaluated, and discussed patient with Dr Menendez and the [facility] team. I agree with the objective findings [...] Nir Timmons MD - 03/17/2017 1:45 PM DRIVER Formatting of this note may be different [...] he can tolerate. Nir Timmons MD Pager [phone] Subjective Naren Mayfield is a 51 y.o. [...] citrate PF Q1H PRN 50 mcg at 03/17/17 0502, haloperidol Q6H PRN 2.5 mg at 03/17/17 0909, hydrALAZINE Q6H PRN 20 mg at 03/17/17 1207, ipratropium bromide Q4H PRN, labetalol (NORMODYNE; TRANDATE) injection Q10 MIN PRN 20 mg at 03/17/17 1135, methylcellulose PRN 1 drop at 03/16/17 1351, ondansetron Q6H PRN , pancrelipase 20,000 Units/ sodium bicarbonate 650 mg(#) PRN (Senior Adults Director from Rx) , sodium chloride 0.9% (NS) [...] PO2ART 74* 108* Nir Timmons MD Pager [phone] * Jeancarlos Menendez MD - 03/17/2017 12:05 PM DRIVER Formatting of this note may be different from the original. Neuroscience Critical Care Progress Note Naren Mayfield Admission Date: 03/09/2017 LOS: 8 days ASSESSMENT/PLAN Patient Active Problem List Diagnosis Date Noted IVH (intraventricular hemorrhage) (HCC) 03/09/2017 Intraparenchymal hematoma of brain (HCC) 03/09/2017 Subarachnoid bleed ([facility]) 03/09/2017 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[facility]) 03/09/2017 Added automatically from request for surgery [id number] Naren Mayfieldis a 51 y.o.malewith PMH of [...] 130-180 to help with vasospasms - Nimodipine [id number] - Continue Keppra 1500mg daily after dialysis - TCDs Daily - Neuro-ICU monitoring, neurochecks q 1 hrs Sedation/Pain Management: Yes - Precedex stopped - Fentanyl PRN - Assess for delirium daily - Seroquel BID 50mg - Haldol prn Cardiac: HTN, HLD - SBP goal: 130-180 - MAP goal > 65 - EKG with SR, LVH - 03/11 Restart QUARRY MANAGER minoxidil and metoprolol BID - 03/11 ECHO [...] Potassium goal >4.0 mEq/L Prophylaxis Review: A) GI:C3Frqplyu B) Lines:2 peripheral lines, place Right arterial [...] 20,000 Units/ sodium bicarbonate 650 mg(#) PRN (Senior Adults Director from Rx), sodium chloride 0.9% (NS) IP [...] SpO2 92 %. General appearance: well-developed Neurologic: [place] coma score: E: 2 M: 6 V: [...] discussed above. Jeancarlos Menendez MD Date: 03/17/[phone] Associated attestation - Bakari Wu MD - 03/17/2017 9:11 PM DRIVER Formatting of this note may be different [...] possible cerebral vasospasm - observe closely Possible SPORTS ANNOUNCER infection His agitation is also partly driven [...] Calista Espana MD - 03/17/2017 8:01 AM DRIVER Formatting of this note may be different [...] (HCC) Added automatically from request for surgery [id number] IVH (intraventricular hemorrhage) (HCC) Intraparenchymal hematoma of [...] for restraints. Calista Espana MD Please call [phone] with any questions. * Nir Timmons MD - 03/16/2017 5:19 PM DRIVER Formatting of this note may be different [...] computer is accurate. Nir Timmons MD Pager [phone] Subjective Naren Mayfield is a 51 y.o. [...] MIN PRN, methylcellulose PRN 1 drop at 03/16/17 1351, ondansetron Q6H PRN, pancrelipase 20,000 Units/ sodium bicarbonate 650 mg(#) PRN (Senior Adults Director from Rx), sodium chloride 0.9% (NS) IP Dialysis PRN, sodium chloride 0.9% (NS) IP Dialysis PRN Stopped at 03/16/17 1420, sodium chloride 0.9% (NS) IP Dialysis PRN, sodium chloride 0.9% (NS) IP Dialysis PRN, sodium chloride 0.9% (NS) IP Dialysis PRN Stopped at 03/14/17 0731 Physical Exam Vital Signs: Last Filed In 24 Hours Vital Signs: 24 Hour Range BP: 206/83 (03/16 1700) Temp: 37 C (98.6 F) (03/16 1400) [...] PO2ART 145* 92 Nir Timmons MD Pager [phone] * Calista Espana MD - 03/16/2017 8:11 AM DRIVER Formatting of this note may be different [...] (HCC) Added automatically from request for surgery [id number] IVH (intraventricular hemorrhage) (HCC) Intraparenchymal hematoma of [...] for restraints. Calista Espana MD Please call [phone] with any questions. * Bakari Wu - 03/16/2017 6:35 AM DRIVER Formatting of this note may be different from the original. Neuroscience Critical Care Progress Note Naren Mayfield Admission Date: 03/09/2017 LOS: 7 days ATTESTATION [...] 03/09/2017 Added automatically from request for surgery [id number] Naren Dickens a 51 y.o.malewith PMH of [...] 130-200 to help with vasospasms - Nimodipine [id number] - Continue Keppra 1500mg daily after dialysis [...] EKG with SR, LVH - 03/11 Restart QUARRY MANAGER minoxidil and metoprolol BID - 03/11 ECHO [...] 0 ml Net 1246.23 ml Endocrine: DM -12/ BG on chem 151- will start accuchecks x5 daily with SSI - 12 A1C pending - Blood glucose goal 100-180mg/dl FEN: - IVF: No maintenance fluid, - Magnesium goal >2.0, i-Jarred goal > 1.0, Potassium goal >4.0 mEq/L Prophylaxis Review: A) GI:G0Oseiler B) Lines:Yes; Arterial Line; Indication: Continuous BP monitoring; Location: Radial C) Urinary Catheter:Yes; Retain cunninhgam due to: Need for accurate Intake and [...] MINUTE (03/16 050) SpO2: 96 % (03/16 050) O2 Delivery: Nasal Cannula (03/16 500) BP: [...] 20,000 Units/ sodium bicarbonate 650 mg(#) PRN (Senior Adults Director from Rx), sodium chloride 0.9% (NS) IP [...] SpO2 96 %. General appearance: well-developed Neurologic: [place] coma score: E: 2 M: 6 V: [...] hours): POC Glucose (Download): (!) 162 (03/16/17 8266) Radiology and Other Diagnostic Procedures Review: Reviewed and discussed above. Phi Velasquez MD Date: 03/16/[phone] * Portia Johnson, TAE - 03/15/2017 2:18 PM DRIVER CLINICAL NUTRITION Clinical Nutrition Follow-Up Summary Nutrition [...] Renal @ 40ml/hr with 30ml water bolus [id number] and 3 packs Prosource per day. This [...] available this afternoon, says pt eating well QUARRY MANAGER and eating whatever he wanted though he [...] carb diabetic diet order with texture per ENVIRONMENTAL CONSTRUCTION ENGINEER. Intervention / Plan: obtained subjective data monitor En tolerance/provision monitor for swallow eval and ability to advance diet per ENVIRONMENTAL CONSTRUCTION ENGINEER monitor wt trends, labs, meds, GI status Nutrition Diagnosis: Nutrition Diagnosis: Altered GI function Etiology: respiratory/swallowing deficits with intubation/extubation s/p SAH Signs & Symptoms: NPO with EN feeds Goals: EN tolerated and meeting >75% of nutritional needs Time Frame: Within 72 Hours Status: Met;new goal established EN tolerated and meeting >85% of nutritional needs Time Frame: Throughout Stay Portia Johnson, RD * Saman Joshi - 03/15/2017 2:07 PM DRIVER Patient disconnected from Video EEG Monitoring without complications. * Yesenia Yoon, PT - 03/15/2017 1:30 PM DRIVER PHYSICAL THERAPY ASSESSMENT MOBILITY: Progressive Mobility Level: [...] 6 Standardized (T-scale) Score: 16.59 Basic Mobility [facility] 0-100%: 100 CMS G Code Modifier for [...] * Sharyn Rutledge - 03/15/2017 1:30 PM DRIVER OCCUPATIONAL THERAPY ASSESSMENT NOTE Patient Name: Naren Mayfield Room/Bed: [place] [address] Admitting Diagnosis: subarachnoid hemorrhage Subarachnoid bleed (HCC) [...] Home Equipment: Cane Prior Function Level Of [place]: Independent with ADLs and functional transfers Lives [...] Raw Score: 7 Standardized (t-scale) score: 20.13 [facility] 0-100% Score: 92.44 [facility] G Code Modifier: CM G-Codes: Self-care G8987 [...] determined Therapist: Sharyn Monroy, OTR/L 5294 Date: 03/15/2017 * Jeancarlos Mneendez MD - 03/15/2017 1:01 PM DRIVER Formatting of this note may be different from the original. 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 General appearance: well-developed Neurologic: [place] coma score: E: 2 M: 6 V: [...] discussed above. Jeancarlos Menendez MD Date: 03/15/[phone] Associated attestation - Bakari Wu MD - 03/15/2017 6:36 PM DRIVER Formatting of this note may be different [...] discussed patient with Dr. Menendez and the NEICU team. I agree [...] Bakari Wu MD Date: 03/15/2017 * Marta Soto OT - 03/14/2017 2:42 PM DRIVER OCCUPATIONAL THERAPY NO TREATMENT NOTE The patient was not seen due to: pt was unavailable X2 this day 2* to dialysis. RN notes pt is following commands, however pt currently on bedrest, intubated with VEEG in place. Anticipate need for helmet once able to get up, due to craniectomy. Will continue to follow. Therapist: Marta Soto OT Date: 03/14/2017 * Tracie Mitchell MD - 03/14/2017 1:29 PM DRIVER Formatting of this note may be different [...] stable on treatment Tracie Mitchell MD Pager [phone] Subjective Naren Mayfield is a 51 y.o. [...] 20,000 Units/ sodium bicarbonate 650 mg(#) PRN (Senior Adults Director from Rx), sodium chloride 0.9% (NS) IP Dialysis PRN, sodium chloride 0.9% (NS) IP Dialysis PRN Stopped at 03/14/17 0731, sodium chloride 0.9% (NS) IP Dialysis PRN Physical Exam Vital Signs: Last Filed In 24 Hours Vital Signs: 24 Hour Range BP: 144/60 (03/14 730) Temp: 37.7 C (99.9 F) (03/14 1200) Pulse: 79 (03/14 131) Respirations: 24 PER MINUTE (03/14 1315) SpO2: [...] PO2ART 112* 109* Tracie Mitchell MD Pager [phone] * Jeancarlos Menendez MD - 03/14/2017 12:41 PM DRIVER Formatting of this note may be different from the original. Neuroscience Critical Care Progress Note Naren Mayfield Admission Date: 03/09/2017 LOS: 5 days ASSESSMENT/PLAN Patient Active Problem List Diagnosis Date Noted IVH (intraventricular hemorrhage) ([facility]) 03/09/2017 Intraparenchymal hematoma of brain ([facility]) 03/09/2017 Subarachnoid bleed ([facility]) 03/09/2017 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[facility]) 03/09/2017 Added automatically from request for surgery [id number] Naren Mayfieldis a 51 y.o.malewith PMH of [...] 130-160 to help with vasospasms - Nimodipine [id number] - Phenylephrine as needed - Increase Keppra [...] EKG with SR, LVH - 03/11 Restart QUARRY MANAGER minoxidil and metoprolol BID - 03/11 ECHO [...] 5 ml Net 2771.62 ml Endocrine: DM -12/ BG on chem 151- will start accuchecks x5 daily with SSI - 12/5 A1C pending - Blood glucose goal 100-180mg/dl FEN: - IVF: No maintenance fluid, - Magnesium goal >2.0, i-Jarred goal > 1.0, Potassium goal >4.0 mEq/L Prophylaxis Review: A) GI:X6Fvpekgd B) Lines:Yes; Arterial Line; Indication: Continuous BP monitoring; Location: Radial C) Urinary Catheter:Yes; Retain cunningham due to: Need for accurate Intake and Output D) Antibiotic Usage:No E) VTE:SCDs F) Isolation:NA G)Seizures:Keppra I) Restraints: Patient assessed for need for restraints. Disposition/Family:NEICU Primary service:NSG Consults: NEICU, Renal, Pulmonary __ SUBJECTIVE aNren Mayfield is a 51 y.o. male. Overnight [...] IV drip (std conc) Stopped (03/13/17 2314) PRN and Respiratory Meds:acetaminophen Q4H PRN, albuterol 0.5% Q4H PRN, fentaNYL citrate PF Q1H PRN, ipratropium bromide Q4H PRN, labetalol (NORMODYNE; TRANDATE) injection Q1H PRN, ondansetron Q6H PRN, pancrelipase 20,000 Units/ sodium bicarbonate 650 mg(#) PRN (Senior Adults Director from Rx), sodium chloride 0.9% (NS) IP [...] SpO2 99 %. General appearance: well-developed Neurologic: [place] coma score: E: 2 M: 6 V: [...] 0315) POC Glucose (Download): (!) 161 (03/14/17 1225) Radiology and Other Diagnostic Procedures Review: Reviewed and discussed above. Jeancarlos Menendez MD Date: 03/14/[phone] Associated attestation - Bakari Wu MD - 03/14/2017 9:51 PM DRIVER Formatting of this note may be different from the original. NEICU Attending Command Post Superintendent Attestation Naren Mayfield is a 51 y.o. [...] * Sydney Andrade - 03/14/2017 9:05 AM DRIVER EEG signals are clean of artifact and visible. Video was visualized and recording. Audio recording was checked and functioning. The VEEG system is on- line. Central monitoring station is functioning appropriately. The event button is operational and within reach of the patient and/or patient' s family. Electrode impedances below 5 kOhms * Tracie Mitchell MD - 03/13/2017 4:54 PM DRIVER Formatting of this note may be different [...] for dialysis needs. Tracie Mitchell MD Pager [phone] Subjective Naren Mayfield is a 51 y.o. [...] 20,000 Units/ sodium bicarbonate 650 mg(#) PRN (Senior Adults Director from Rx) Physical Exam Vital Signs: Last Filed In 24 Hours Vital Signs: 24 Hour Range BP: 115/50 (03/13 0200) Temp: 37.7 C (99.9 F) (03/13 1452) Pulse: 87 (03/13 145) Respirations: 28 PER MINUTE (03/13 1452) SpO2: [...] HGBA1C -- -- 5.2 -- Recent Labs 03/10/17204903/11/17 0050 03/11/17 0355 03/11/17 0607 03/11/17 0843 [...] PO2ART 99 112* Tracie Mitchell MD Pager [phone] * Portia Johnson, RD - 03/13/2017 3:54 PM DRIVER CLINICAL NUTRITION Clinical Nutrition Follow-Up Summary Nutrition [...] combination of renal-dialysis and diabetic consistent carb 7501-1409 (60g CHO/meal). Intervention / Plan: attempted to obtain subjective data Monitor labs, weight trends, EN intake/tolerance, GI health Nutrition Diagnosis: Nutrition Diagnosis: Inadequate protein-energy intake Etiology: SAH, s/p intubation Signs & Symptoms: trophic EN feeds Goals: EN tolerated and meeting >75% of nutritional needs Time Frame: Within 72 Hours Status: Ongoing Portia Johnson RD * Saman Joshi - 03/13/2017 3:07 PM DRIVER EEG electrodes were successfully placed on pt's [...] Carole Sloan, PT - 03/13/2017 11:45 AM DRIVER PHYSICAL THERAPY NOTE Patient's case reviewed and discussed during interdisciplinary rounds. Patient is currently minimally responsive and unable to participate in purposeful physical therapy. Physical therapy will continue to follow and provide intervention as indicated. Therapist: Carole Sloan, PT Date: 03/13/2017 * Marcos Solorzano MD - 03/13/2017 11:14 AM DRIVER Formatting of this note may be different [...] and closer to extubation. Staff name: Marcos Solorzano MD Date: 03/15/2017 __ Subjective Naren Mayfield [...] 20,000 Units/ sodium bicarbonate 650 mg(#) PRN (Senior Adults Director from Rx) Radiology Pertinent radiology reviewed. Caroline Davila, DO Pulmonary/Critical Care Pager # [phone] 03/13/2017 * Marta Soto, OT - 03/13/2017 10:05 AM DRIVER OCCUPATIONAL THERAPY NO TREATMENT NOTE The patient was not seen due to: discussed with RN. Pt with worsened exam, pt is not following commands and not able to participate in meaningful therapy at this time. Will continue to follow. Attempted to see patient 1 time(s) Therapist: Marta Soto OT Date: 03/13/2017 * Jeancarlos Menendez MD - 03/13/2017 8:09 AM DRIVER Formatting of this note may be different from the original. 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 Added automatically from request for surgery [id number] Naren Mayfieldis a 51 y.o.malewith PMH of [...] 130-160 to help with vasospasms - Nimodipine [id number] - Phenylephrine - Keppra 1000mg daily after [...] EKG with SR, LVH - 03/11 Restart QUARRY MANAGER minoxidil and metoprolol BID - 03/11 ECHO [...] 2831 ml Net -836.81 ml Endocrine: DM -03/12 BG on chem 151- will start accuchecks x5 daily with SSI - 03/12 A1C pending - Blood glucose goal 100-180mg/dl FEN: - IVF: No maintenance fluid, - Magnesium goal >2.0, i-Jarred goal > 1.0, Potassium goal >4.0 mEq/L Prophylaxis Review: A) GI:R2Gmpgmsk B) Lines:Yes; Arterial Line; Indication: Continuous BP [...] 1000) Temp: 37.9 C (100.2 F) (03/13 0800) Pulse: 83 (03/13 636) Respirations: 28 PER [...] 20,000 Units/ sodium bicarbonate 650 mg(#) PRN (Senior Adults Director from Rx) Critical Care Vitals: ICP Monitoring: [...] SpO2 100 %. General appearance: well-developed Neurologic: [place] coma score: E: 1 M: 4 V: [...] discussed above. Jeancarlos Menendez MD Date: 03/13/[phone] Associated attestation - Bakari Wu MD - 03/13/2017 6:19 PM DRIVER Formatting of this note may be different [...] discussed patient with Dr. Menendez and the [facility] team. I agree with the objective findings [...] * Bakari Wu - 03/12/2017 11:05 PM DRIVER Formatting of this note may be different [...] 03/09/2017 Added automatically from request for surgery [id number] Naren Dickens a 51 y.o.malewith PMH of [...] 1000mg daily after dialysis daily - Nimotop [id number] - Consider 1:1 fluid replacement - TCDs Daily - Neuro-ICU monitoring, neurochecks q 1 hrs Sedation/Pain Management: Yes - Precedex drip for sedation - Fentanyl PRN - Assess for delirium daily Cardiac: HTN, HLD - SBP goal: 120-160 - MAP goal > 65 - Cardene drip to meet SBP goal, PRN hydralazine, labetalol - EKG with SR, LVH - 03/11 Restart QUARRY MANAGER minoxidil and metoprolol BID - 03/11 ECHO EF 55% Respiratory: Pleural effusion Date of Intubation: 03/09/17Reason: Airway protection - AC 450/50%/5 - ABG 7.33/ 41/72/20.9 - OSH CXR [...] 3551 ml Net -1719.27 ml Endocrine: DM -03/12 BG on chem 151- will start accuchecks x5 daily with SSI - 03/12 A1C pending - Blood glucose goal 100-180mg/dl FEN: - IVF: No maintenance fluid, on Precedex - Magnesium goal >2.0, i-Jarred goal > 1.0, Potassium goal >4.0 mEq/L Prophylaxis Review: A) GI:[id number] B) Lines:Yes; Arterial Line; Indication: Continuous BP [...] 108.8 kg (239 lb 13.8 oz) (03/12 160) ABP: (114-155)/(47-131) ART MAP (Calculated) mm Hg: [...] 20,000 Units/ sodium bicarbonate 650 mg(#) PRN (Senior Adults Director from Rx) Critical Care Vitals: ICP Monitoring: [...] appearance: well-developed, cooperative and mild distress Neurologic: Ydlan coma score: E: 3 M: 6 V: [...] 0344) POC Glucose (Download): (!) 139 (03/12/17 6550) Radiology and Other Diagnostic Procedures Review: all noted Bakari Wu Date: 03/12/[phone] * Nicolas Mclaughlin MD - 03/12/2017 5:00 PM DRIVER Brief Pulmonary Progress Note Due to required [...] Tracie Mitchell MD - 03/12/2017 4:52 PM DRIVER Formatting of this note may be different [...] for dialysis needs Tracie Mitchell MD Pager [phone] Subjective Naren Mayfield is a 51 y.o. [...] 100 ml IV drip 1 mcg/kg/hr (03/12/17 8487) Prn acetaminophen Q4H PRN 650 mg at 03/12/17 0012, albuterol 0.5% Q4H PRN, fentaNYL citrate PF Q1H PRN 50 mcg at 03/12/17 1002, hydrALAZINE Q6H PRN 10 mg at 03/09/17 2134, ipratropium bromide Q4H PRN, labetalol (NORMODYNE; TRANDATE) injection Q15 MIN PRN 10 mg at 03/11/17 1152, ondansetron Q6H PRN, pancrelipase 20,000 Units/ sodium bicarbonate 650 mg(#) PRN (Senior Adults Director from Rx), sodium chloride 0.9% (NS) IP Dialysis PRN, sodium chloride 0.9% (NS) IP Dialysis PRN, sodium chloride 0.9% (NS) IP Dialysis PRN Physical Exam Vital Signs: Last Filed In 24 Hours Vital Signs: 24 Hour Range Temp: 37.1 C (98.8 F) (03/12 160) Pulse: 63 (03/12 160) Respirations: 14 PER MINUTE (03/12 1603) SpO2: 95 % (03/12 1603) O2 Delivery: Endotracheal Tube (Oral) (03/12 1603) SpO2 Pulse: 63 (03/12 160) ABP: (115-160)/(50-69) ART MAP (Calculated) mm Hg: [...] edema Skin: no rash Labs Recent Labs 03/09/17184203/10/1732403/10/17204903/11/1735403/12/17 0344 NA 132* 134* 133* 135* 135* [...] -- -- -- -- 5.2 Recent Labs 03/09/17184203/10/1732403/10/17204903/11/17 0050 03/11/175 03/11/17 0607 03/11/17 0843 03/12/17 0344 WBC [...] PO2ART 132* 72* Tracie Mitchell MD Pager [phone] * Marta Soto, OT - 03/12/2017 9:44 AM DRIVER OCCUPATIONAL THERAPY NO TREATMENT NOTE The patient was not seen due to: pt still with sheaths in place. Will follow up tomorrow as appropriate. Therapist: Marta Soto, OT Date: 03/12/2017 * Geoffrey Guerra APRN - 03/12/2017 6:44 AM DRIVER Formatting of this note may be different from the original. Neuroscience Critical Care Progress Note Naren Mayfield Admission Date: 03/09/2017 LOS: 3 days ASSESSMENT/PLAN Patient Active Problem List Diagnosis Date Noted IVH (intraventricular hemorrhage) (HCC) 03/09/2017 Intraparenchymal hematoma of brain (HCC) 03/09/2017 Subarachnoid bleed (HCC) 03/09/2017 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HCC) 03/09/2017 Added automatically from request for surgery [id number] Naren Mayfieldis a 51 y.o.malewith PMH of [...] 1000mg daily after dialysis daily - Nimotop [id number] - Consider 1:1 fluid replacement - TCDs Daily - Neuro-ICU monitoring, neurochecks q 1 hrs Sedation/Pain Management: Yes - Precedex drip for sedation - Fentanyl PRN - Assess for delirium daily Cardiac: HTN, HLD - SBP goal: 120-160 - MAP goal > 65 - Cardene drip to meet SBP goal, PRN hydralazine, labetalol - EKG with SR, LVH - 03/11 Restart QUARRY MANAGER minoxidil and metoprolol BID - 03/11 ECHO [...] Potassium goal >4.0 mEq/L Prophylaxis Review: A) GI:[id number] B) Lines:Yes; Arterial Line; Indication: Continuous BP [...] BP: 123/56 (03/11 1528) ABP: 127/53 (03/12 600) ART MAP (Calculated) mm H mm Hg (03/12 600) Temp: 37.1 C (98.8 F) (03/12 0400) Pulse: 58 (03/12 600) Respirations: 18 PER [...] consulted teams Geoffrey Guerra, ROLO Date: 03/12/[phone] * Bakari Wu - 03/11/2017 6:00 PM DRIVER Formatting of this note may be different [...] 03/09/2017 Added automatically from request for surgery [id number] Naren Mayfield is a 51 y.o. male [...] 1000mg daily after dialysis daily - Nimotop [id number] - Consider 1:1 fluid replacement - TCDs [...] EKG with SR, LVH - 03/11 Restart QUARRY MANAGER minoxidil and metoprolol BID - ECHO this [...] ESRD on dialysis - Renal consult - Octavio in [...] Potassium goal >4.0 mEq/L Prophylaxis Review: A) GI:S7Qvagptv B) Lines:Yes; Arterial Line; Indication: Continuous BP [...] BP: 123/56 (03/11 1528) ABP: 142/59 (03/11 1751) ART MAP (Calculated) mm H mm Hg (03/11 1700) Temp: 37.3 C (99.2 F) (03/11 1600) Pulse: 64 (03/11 1751) Respirations: 20 PER MINUTE (03/11 1751) SpO2: 94 % (03/11 1751) O2 Delivery: [...] (not recorded) Vitals: 03/11/17 1000 03/11/17 1400 03/11/17 1528 Weight: 118.3 kg (260 lb 12.9 oz) [...] Procedures Review: all noted Bakari Wu Date: 03/11/[phone] * Carole Sloan, PT - 03/11/2017 3:31 PM DRIVER PHYSICAL THERAPY NOTE Discussed case with bedside RN, patient is currently requiring increased oxygen demands and not appropriate for physical therapy intervention. Physical therapy will continue to follow and provide intervention as indicated. Therapist: Carole Sloan, PT Date: 03/11/2017 * Marta Soto, OT - 03/11/2017 3:05 PM DRIVER OCCUPATIONAL THERAPY NO TREATMENT NOTE The patient was not seen due to: getting bedside test. Still on 80% FiO2, but likely to wean later per RN. Will follow up tomorrow. Therapist: Marta Soto, OT Date: 03/11/2017 * Melisa Dailey, RT - 03/11/2017 8:22 AM DRIVER No wean till after dialysis per RN team * Geoffrey Guerra, FIRE EXTINGUISHER MECHANIC - 03/11/2017 6:11 AM DRIVER Formatting of this note may be different from the original. Neuroscience Critical Care Progress Note Naren Mayfield Admission Date: 03/09/2017 LOS: 2 days ASSESSMENT/PLAN Patient Active Problem List Diagnosis Date Noted IVH (intraventricular hemorrhage) (HCC) 03/09/2017 Intraparenchymal hematoma of brain (HCC) 03/09/2017 Subarachnoid bleed (HCC) 03/09/2017 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HCC) 03/09/2017 Added automatically from request for surgery [id number] Naren Mayfield is a 51 y.o. male [...] 1000mg daily after dialysis daily - Nimotop [id number] - Consider 1:1 fluid replacement - TCDs [...] EKG with SR, LVH - 03/11 Restart QUARRY MANAGER minoxidil and metoprolol BID - ECHO this [...] Potassium goal >4.0 mEq/L Prophylaxis Review: A) GI:M5Ikfmzwr B) Lines:Yes; Arterial Line; Indication: Continuous BP [...] MAP (Calculated) mm H mm Hg (03/11 500) Temp: 37 C (98.6 F) (03/11 0400) Pulse: 73 (03/11 0500) Respirations: 23 PER MINUTE (03/11 0500) SpO2: 100 % (12/04 0500) O2 Delivery: Endotracheal Tube (Oral) (03/11 0500) BP: (151)/(73) ABP: (116-170)/(58-74) ART MAP (Calculated) [...] coordination of care with consulted teams. Geoffrey Resendiz Charlie, FIRE EXTINGUISHER MECHANIC Date: 03/11/[phone] * Tonia Lopes MD - 03/10/2017 9:02 PM DRIVER Formatting of this note may be different from the original. March 10, 2017 Naren Mayfield Tonia Lopes MD Neuro ICU [...] management and coordination of care. * Moi Sol, RN - 03/10/2017 8:58 PM DRIVER Patient came from OR and arrived in [...] Saeid Thompson, RN - 03/10/2017 8:42 PM DRIVER Patient transported to CT on the monitor, on the vent with RT. Physician with the patient during transport. Transported without incident. After CT scan the patient was transported to OR with anesthesia assuming care. * Courtney Dale MD - 03/10/2017 5:01 PM DRIVER Pulmonary service consulted for L pleural effusion at 8:30 am. Unable to see the patient all day as he has been in the OR since 7 am and has not returned. Pulmonary consult service will see the patient in the AM. Please page [phone] if stat consult required overnight. Courtney Dale MD, M.Sc. PGY4 Pulmonary and Critical Care Fellow Pager: [phone] * Tracie Mitchell MD - 03/10/2017 1:51 PM DRIVER Renal service consulted for ESRD. Unable to see patient as he has been in the OR since morning. Will see patient in AM unless acutely needed. Please obtain a BMP after return from OR * Yesenia Yoon, PT - 03/10/2017 9:31 AM DRIVER PHYSICAL THERAPY NOTE Physical therapy orders received and appreciated. Patient to OR today for right pterional craniotomy for clipping of MCA aneurysm. PT will follow up 03/11 and provide physical therapy intervention as indicated. Therapist: Yesenia Yoon, PT Date: 03/10/2017 * Brandy Posada OT - 03/10/2017 9:10 AM DRIVER OCCUPATIONAL THERAPY NOTE OT orders received and appreciated. Pt to OR for procedure this date. OT will follow up tomorrow for evaluation/treatment as indicated. Therapist: Brandy Posada OTR/Omar [id number] Date: 03/10/2017 * Moi Sol RN - 03/10/2017 8:25 AM DRIVER Patient started to be prepared for OR at 0730. Patient left room at 0815. Patient taking via bed with WHITE HAT HACKER's and RT. No issues during this process. This RN was not able to get a full assessment done before the patient was taken to OR. * Rosie Tanner APRN - 03/10/2017 6:32 AM DRIVER Formatting of this note may be different from the original. Neuro Critical Care Progress Note Naren Mayfield Admission Date: 03/09/2017 LOS: 1 day Full Code ASSESSMENT/PLAN Patient Active Problem List Diagnosis Date Noted IVH (intraventricular hemorrhage) (HCC) 03/09/2017 Intraparenchymal hematoma of brain (HCC) 03/09/2017 Subarachnoid bleed (HCC) 03/09/2017 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HCC) 03/09/2017 Added automatically from request for surgery [id number] Naren Mayfield is a 51 y.o. male [...] EKG with SR, LVH - Will add QUARRY MANAGER medications when verified - ECHO this AM [...] goal >4.0 mEq/L Prophylaxis Review: A) GI: [id number] B) Lines: Yes; Arterial Line; Indication: Continuous [...] Range BP: 127/89 (03/09 2030) ABP: 132/67 (03/105) ART MAP (Calculated) mm H mm Hg (03/09 1930) Temp: 36.6 C (97.8 F) (03/10 0000) Pulse: 68 (03/10 455) Respirations: 20 PER MINUTE (03/10 442) SpO2: 98 % (03/10 455) O2 Delivery: Endotracheal Tube (Oral) (03/10 0200) [...] (253 lb 12 oz), SpO2 98 %. [place] coma score: E: 3 - Opens eyes [...] radiologic and diagnostic procedures reviewed. Rosie Tanner, ROLO Date: 03/10/[phone] I spent 65 minutes managing the care [...] Tonia Lopes MD - 03/09/2017 6:22 PM DRIVER Formatting of this note may be different [...] Dayan Rollins RN - 03/09/2017 4:43 PM DRIVER Sedation physician present in room. Recent vitals and patient condition reviewed between sedating physician and nurse. Reassessment completed. Determination made to proceed with planned sedation. * Leslye Park RN ([place]) - 03/09/2017 3:30 PM DRIVER Pt arrived to room [id number] via EMS intubated and sedated. VSS, no [...] De Leon MD - 03/09/2017 3:30 PM DRIVER Formatting of this note may be different [...] q4 - discussed with staff Please page [phone] with any questions Devon Castro MD [phone] __ Chief Complaint: MCA aneurysm History of [...] (03/09 1930) Height: 172.7 cm (68") (03/09 152) BP: (107-143)/(67-95) ABP: (110-183)/(55-104) ART MAP (Calculated) [...] Dima Glasgow RN - 03/26/2017 9:00 AM DRIVER Associated Order(s): HEMODIALYSIS INPATIENT; HEMODIALYSIS DATE 847: Consent confirmed, assessment complete and charted. Patient's LFA AV Fistula was accessed with two #15 fistula needles upon the first attempt. Treatment was started at this time. 1247: Blood returned, needles de-cannulated, bleeding stopped in <10min. Treatment completed at this time. * Dharmesh Navarro RN - 03/23/2017 3:22 PM DRIVER Associated Order(s): HEMODIALYSIS INPATIENT; HEMODIALYSIS DATE Arrived at patient room C 5112 and treatment started at 1040 am. Vital signs stable. Patient tolerating treatment well. Treatment complete at 1444 pm. Vital signs stable. [place] removed from L AV fistula and site healed. Report given to unit nurse. Left patient in room C 5112 in stable condition. * Hetal Roberts RN - 03/21/2017 8:44 AM DRIVER Associated Order(s): HEMODIALYSIS INPATIENT; HEMODIALYSIS DATE 629 Arrived in Pt's RM [id number] with portable R/O and diaysis machine/supply cart. ICU staff cleaning Pt from BM. [id number] R/O rinsing/cool down cycle in progress. Pt repositioned by ICU staff X's 3 0815 Arterial line patent. Verified correct Pt,meds,procedure [...] Geoffrey Farias RN - 03/19/2017 11:57 AM DRIVER Associated Order(s): HEMODIALYSIS INPATIENT; HEMODIALYSIS DATE Hemodialysis [...] Mihai Aly RN - 03/18/2017 2:45 PM DRIVER Associated Order(s): HEMODIALYSIS INPATIENT; HEMODIALYSIS DATE Formatting of this note may be different from the original. 1225 Status: Active Ordering user: Nir Timmons MD 03/17/17 1225 Ordering provider: Nir Timmons MD Authorized by: Nir Timmons MD Frequency: Once 03/17/17 1800 - 1 Occurrences Released by: Patti Garcia RN 03/17/17 5284 Questions: Date Hemodialysis to be performed: 03/18/2017 [...] Vernell Corbin MD - 03/18/2017 1:01 PM DRIVER VIDEO EEG REPORT Name: Naren Mayfield Date [...] on the right side. Vernell Corbin MD Reformatory Attendant of Neurology [facility] * Bakari Wu - 03/16/2017 9:43 PM DRIVER Procedure(s): THORACENTESIS ED Procedure Note - Attempted [...] Mihai Aly RN - 03/16/2017 2:38 PM DRIVER Associated Order(s): HEMODIALYSIS INPATIENT; HEMODIALYSIS DATE Formatting of this note may be different from the original. 41 Status: Active Ordering user: Tracie Mitchell MD 03/15/171641 Ordering provider: Tracie Mitchell MD Authorized by: Tracie Mitchell MD Frequency: Once 03/16/17 0530 - 1 Occurrences Released by: Corazon Caba RN 03/16/17 05 Questions: Date Hemodialysis to be performed: 03/16/2017 [...] bed. 1530 B/P in the 200s systolic. data analytics specialist giving meds. UF increased to 3.[address] Cardona. 1615 BP remains above 200 systolic. ICU nurse addressing B/P. 1745 Dialysis complete. UF total was 4 liters. Phi DAVE given report. * Vernell Corbin MD - 03/15/2017 9:22 AM DRIVER VIDEO EEG REPORT Name: Naren Mayfield Date [...] on the right side. Vernell Corbin MD Reformatory Attendant of Neurology Comprehensive Epilepsy [facility] * Marcos Solorzano MD - 03/14/2017 4:26 PM DRIVER Procedure(s): THORACENTESIS ED Pre-Procedure Diagnose(s): Pleural effusion [...] by Dr. Davila, Pulmonary Critical Care Fellow. [facility] 03-14-17 Staff name: Marcos Solorzano MD Date: 03/15/2017 * Vernell Corbin MD - 03/14/2017 9:22 AM DRIVER VIDEO EEG REPORT Name: Naren Mayfield Date [...] on the right side. Vernell Corbin MD Reformatory Attendant of Neurology [facility] * Germaine Covarrubias, RN - 03/14/2017 7:27 AM DRIVER Associated Order(s): HEMODIALYSIS INPATIENT; HEMODIALYSIS DATE waterproof bag sewer in patient's room. Patient sedated and on [...] Vernell Corbin MD - 03/13/2017 5:44 PM DRIVER EEG REPORT Date of service: 03/13/2017 Name: [...] on the right side. Vernell Corbin MD Reformatory Attendant of Neurology [facility] * Vandana Delaney RN - 03/12/2017 12:33 PM DRIVER Associated Order(s): HEMODIALYSIS INPATIENT; HEMODIALYSIS DATE 1233- [...] expected fluid removed from pt during tx. Amanda, RN updated on pt. Pt remains in room [id number] at this time. * Bailee Gann RN - 03/11/2017 10:09 AM DRIVER Associated Order(s): HEMODIALYSIS INPATIENT 0900 Arrived in [id number] to set up for dialysis. Assessment completed and documented. Care of pt, respirator and all lines remains with his primary CHIEF STEWARD/STEWARDESSTENZIN Jean. Left AVF assessed and found to [...] and paper tape. Report given to primary CHIEF STEWARD/STEWARDESSTENZIN Jean. * Dharmesh Navarro RN - 03/10/2017 9:10 PM DRIVER Associated Order(s): HEMODIALYSIS DATE Arrived on unit and contacted unit nurse for patient at 2014 pm. Patient had cranial bleed and sent to CT and then to OR for second time. Bulk Truck Driver contacted and said patient may be done the next morning. Unit nurse also said patient may still have needles from outpatient dialysis unit in fistula. Patient already in OR. * Maxim Chauhan MD - 03/10/2017 9:45 AM DRIVER Pre-Procedure Diagnose(s): Aneurysm rupture of middle cerebral [...] a secure HIPAA-compliant network. Maxim Chauhan MD Shop Clerk [facility] Epilepsy [place] Department of Neurology in this encounter Consult Notes * Aleksandr Young MD - 03/19/2017 10:34 AM DRIVER Associated Order(s): CONSULT REHABILITATION MEDICINE PHYSICIAN Formatting of this note may be different from the original. Physical Medicine & Rehabilitation Consult Note Date of Service: 03/19/2017 Naren Mayfield is a 51 y.o. male. : 1965 Primary Insurance: MEDICARE Secondary Insurance: [facility] MEDICAID [place] Tertiary Insurance: Financial Class: Medicare Date of [...] a 51 y.o. male admitted to [facility] on 03/09/2017 with the following issues: IPH/SAH [...] Cognitive impairment Pt would benefit from formal ENVIRONMENTAL CONSTRUCTION ENGINEER cognitive evaluation to determine specific domains of cognitive dysfunction at this or next level of care. Aleksandr Young MD Rehab Consult Pager: [phone] History of Present Illness Hospital Course: Mr. Naren Mayfield is a 51 yo M with a hx of DM, HTN, HLD and renal failure on HD transferred to [facility] from OSH on 03/09 with concern for ruptured R [...] CRANIOTOMY performed by Edgar Bee MD at [facility] OR/Periop INTRACRANIAL ANEURYSM REPAIR Right 03/10/2017 Rt pterional craniotomy for clipping of MCA aneurysm performed by Edgar Bee MD at [facility] OR/Periop Family\\Social History Social History Social History [...] 20,000 Units/ sodium bicarbonate 650 mg(#) PRN (Senior Adults Director from Rx), sodium chloride 0.9% (NS) IP [...] Richard Mackenzie MD - 03/19/2017 10:02 PM DRIVER Rehabilitation Medicine Attending Physician Attestation: Agree with [...] complexity and goals with PT, OT, and ENVIRONMENTAL CONSTRUCTION ENGINEER for acute inpatient rehabilitation. Recommend continued therapies, while the primary team continues to monitor and manage acute concerns for the patient while addressing dysphagia and adequate nutritional access. Discussed with the patient and will discuss with our admissions recruiter. Will continue to follow for medical stability/ appropriateness for discharge. Thank you for this consultation. Please call with questions/concerns. I personally performed rubin portions of the history and exam. I discussed the case with the resident and concur with the resident's documentation of history, physical assessment and treatment plan unless otherwise noted. Richard Mackenzie MD * Janeen Morse - 03/12/2017 3:10 PM DRIVER Associated Order(s): CONSULT DIETITIAN CLINICAL NUTRITION Clinical Nutrition Assessment Summary Nutrition Assessment of Patient: BMI Categories Adult: Obesity Class II: 35-39.9 Malnutrition Assessment: (pending subjective information) Current Oral Intake: NPO Estimated Calorie Needs: 1850-2220kcal (25-30kcal/kg desired wt 74kg) Estimated Protein Needs: 111-133g (1.5-1.8g/kg desired wt 74kf) Oral Diet Order: NPO Current EN Order: Novasource Renal @ 40ml/hr with 30ml water bolus g5mgqig. This provides 1920kcal, 87g, and 871ml free [...] complete. Unable to see pt today, RD statistics intern to follow up tomorrow. Pt received dialysis [...] of renal- dialysis and diabetic consistent carb [id number] (60g CHO/meal). Intervention / Plan: Consult complete for EN recommendations Monitor labs, weight trends, EN intake/tolerance, GI health Will obtain further subjective data on follow up Nutrition Diagnosis: Nutrition Diagnosis: Inadequate protein-energy intake Etiology: SAH, s/p intubation Signs & Symptoms: 2 days w/o EN support Goals: EN tolerated and meeting >75% of nutritional needs Time Frame: Within 72 Hours Janeen Morse, Plug Grower *[phone] Associated attestation - SkCrystal gong RD - 03/12/2017 3:21 PM DRIVER Agree with statistics intern's initial assessment/recommendations as summarized. Malnutrition assessment and updated recommendations to be completed at next visit as feasible. If patient unable to extubate soon, hypocaloric/high protein feeding goals should be initiated. Crystal Mayen RD, LD, [facility] *[phone] * Yuly Meléndez MD - 03/11/2017 5:02 PM DRIVER Associated Order(s): CONSULT PULMONARY/CRITICAL CARE PHYSICIAN Formatting [...] CRANIOTOMY performed by Edgar Bee MD at [facility] OR/Periop INTRACRANIAL ANEURYSM REPAIR Right 03/10/2017 Rt pterional craniotomy for clipping of MCA aneurysm performed by Edgar Bee MD at [facility] OR/Periop Social History Social History Marital status: [...] Pertinent radiology reviewed. Nicolas Mclaughlin MD Pager [phone] * Tracie Mitchell MD - 03/10/2017 10:43 AM DRIVER Associated Order(s): CONSULT NEPHROLOGY PHYSICIAN Formatting of [...] - Daily weights Tracie Mitchell MD Pager [phone] History Reason for Consult: ESRD HPI: Naren [...] 1.5 years ago and he dialyses in [place], [place]. He usually dialyses T// but dialysed 4 times last week as he was way above dry weight. Past Medical History: Diagnosis Date DM (diabetes mellitus) (HCC) HLD (hyperlipidemia) HTN (hypertension) Renal failure Past Surgical History: Procedure Laterality Date INTRACRANIAL ANEURYSM REPAIR N/A 03/10/2017 REPAIR ANEURYSM CRANIOTOMY performed by Edgar Bee MD at [facility] OR/Periop INTRACRANIAL ANEURYSM REPAIR Right 03/10/2017 Rt pterional craniotomy for clipping of MCA aneurysm performed by Edgar Bee MD at [facility] OR/Periop Family History Problem Relation Age of [...] 2150, hydrALAZINE Q6H PRN 10 mg at 03/09/174, ipratropium bromide Q4H PRN, labetalol (NORMODYNE; TRANDATE) [...] 1215) O2 Delivery: Endotracheal Tube (Oral) (03/11 121) SpO2 Pulse: 75 (03/11 1215) BP: (151)/(73) [...] Labs: Recent Labs 03/09/17 1843 03/10/17 0325 03/10/17204903/11/17 0355 NA 132* 134* 133* 135* K [...] 9.1* Recent Labs 03/09/17 1843 03/10/17 0325 03/10/17 2050 03/11/17 0050 03/11/17 0355 03/11/17 [...] Pertinent radiology reviewed. Tracie Mitchell MD Pager [phone] * Rosie Tanner, FIRE EXTINGUISHER MECHANIC - 03/09/2017 4:28 PM DRIVER Associated Order(s): CONSULT NEURO CRITICAL CARE PHYSICIAN Formatting of this note may be different from the original. Neuro Critical Care Consult Note Naren Mayfield Admission Date: 03/09/2017 LOS: 0 days Full Code ASSESSMENT/PLAN Patient Active Problem List Diagnosis Date Noted IVH (intraventricular hemorrhage) (HCC) 03/09/2017 Intraparenchymal hematoma of brain (HCC) 03/09/2017 Subarachnoid bleed (HCC) 03/09/2017 Naren Mayfield is a 51 y.o. [...] Cognitive impairment suspected? Yes - if yes, ENVIRONMENTAL CONSTRUCTION ENGINEER cognitive evaluation ordered? Not at this time, will evaluate when extubated Sedation/Pain Management: Yes - Propofol - Assess for delirium daily Cardiac: - SBP goal: < 140 - MAP goal > 65 - Cardene drip to meet SBP goal - EKG with SR - Will add QUARRY MANAGER medications when verified Respiratory: Date of Intubation: [...] goal >4.0 mEq/L Prophylaxis Review: A) GI: [id number] B) Lines: Yes; Arterial Line; Indication: Continuous [...] Code Decision Maker: Self and sister Mary [phone] Immunizations (includes history and patient reported): There [...] (03/09 1715) O2 Delivery: Endotracheal Tube (Oral) (03/09 1715) Height: 172.7 cm (68") (03/09 1525) [...] (253 lb 12 oz), SpO2 94 %. [place] coma score: E: 4 - Opens eyes [...] radiologic and diagnostic procedures reviewed. Rosie Tanner, FIRE EXTINGUISHER MECHANIC Date: 03/09/[phone] I spent 65 minutes managing the care [...] - Yesenia Stockton - 03/26/2017 11:21 AM DRIVER Case Management Progress Note NAME:Naren Mayfield :[birth year] AGE: 51 y.o. ADMISSION DATE: 03/09/2017 DAYS ADMITTED: LOS: 17 days Todays Date: 03/26/2017 Plan REJI met with the neurosurgery team regarding POC and d/c planning. Pt is ready to d/c today, facility has accepted, since was able to get transportation arranged for dialysis. Pt going to [facility], [address] [place] [facility] today at 3:00 via [employer] W/C Van ([phone]), following his dialysis today Interventions ? Support Mary Mayfield, pt's sister is primary source of support. ? Info or Referral REJI called [facility] Medicaid to set up transportation ([phone]; where's my ride is [phone]) at d/c; [facility] denied. [facility] also originally denied dialysis apt transportation, but REJI was eventually able to obtain authorization. Pt's transport to and from Dialysis apts from [facility], are as follows: Pt's Medicaid ID is [id number] 03/28/17 9:00am apt pickling grader @ 8 [facility] Confirmation#[id number] 03/30/17 9:00am pickling grader @8 Confirmation #[id number] 04/02/17 9am apt, pickling grader @ 8:00am from [facility] Confirmatoin #[id number] 04/04/17 9am apt from [facility] (paramedic supervisor @ 8:00am) Confirmation #[id number] 04/06/17 9am apt from [facility] (paramedic supervisor @ 8:00am) Confirmation #[id number] 04/09/17 9am apt from [facility] (paramedic supervisor @ 8:00am) Confirmation #[id number] 04/11/17 9am apt from [facility] (paramedic supervisor @ 8:00am) Confirmation #[id number] 04/13/17 9am apt from [facility] to [facility] (paramedic supervisor @ 8:00am) Confirmation #[id number] ? Discharge Planning Discharge Planning: OP HD or PD Pt planning on going to [facility], [facility] today at 3:00 via [place] [facility] W/C Van ([phone]) [facility] [address] [place] [address] ? Medication Needs ? Financial ? Legal ? Other Disposition ? Discharge Preparation When ready for discharge, who will be responsible for transporting?: [facility] Type of Residence: Private residence Patient expects to be discharged to: Rehab facility Was the patient receiving home care services?: No ? Expected Discharge Expected Discharge Date: 03/25/17 ? Discharge Disposition Disposition: Inpatient Rehab Facility (IRF) Inpatient Rehab: Via [facility] ([place], [place]) ([phone]) ? Next Level Care Yesenia Stockton LMSW *[id number] * Case Mgmt DC Plan - Kavitha Pimentel - 03/26/2017 10:04 AM DRIVER Request to Arrange Patient Transportation Received request from Yesenia Stockton [facility] to arrange transportation for pt to transfer to Via [facility]; [address] [place] [phone] today. Arrival date and time: 03/26 @ 1530 Transport company: [employer] @ [phone] Instructions for service car driver: Pt needs wheelchair van, has no other special needs. Cost of transport: $325 to be paid by [facility] per SWCM. Kavitha Pimentel Customer Assistant For further assistance please contact [facility] *[phone] * Care Plan - Consuelo Cox RN - 03/26/2017 12:33 AM DRIVER Problem: Neurological Status, Impaired/Altered Goal: Progress toward [...] - Kavitha Pimentel - 03/25/2017 11:32 AM DRIVER Request to Arrange Patient Transportation Received request from Yesenia Stockton [facility] to arrange transportation for pt to transfer to [facility], [address] [place] [address] today. Transportation cancelled per SWCM @ 1330 Transport company: [employer] [phone] Instructions for service car driver: Pt needs wheelchair van, has no other special needs. Cost of transport: $325 to be paid by [facility] per SWCM Patient Transportation Quote Request Received request from MAE Rossi to check on quotes for wheelchair van to transfer pt to [facility], [address] [place] [address] [employer] [phone]: $325 Assisted Transport [phone]- $480 Kavitha Margarito Customer Assistant For further assistance please contact [facility] *[phone] * Case Mgmt DC Plan - Yesenia Stockton - 03/25/2017 11:28 AM DRIVER Case Management Progress Note NAME:Naren Mayfield :[birth year] AGE: 51 y.o. ADMISSION DATE: 03/09/2017 DAYS ADMITTED: LOS: 16 days Todays Date: 03/25/2017 Plan REJI met with the neurosurgery team regarding POC and d/c planning; pt is ready to d/c today. However, [facility] will only accept if pt's dialysis transport has been arranged for pt. ([facility] denied without transportation arrangement for pt's dialysis). Interventions ? Support ? Info or Referral REJI called [facility] Community Plan to set up w/c transport [phone]; member service CM authorization requested for pt's dialysis transportation. Mihir to call back with confirmation ([phone]); 16:30 03/25/17. REJI also called [employer] [facility] in [place] requesting transport assistance. 03/28/17 9:00am apt pickling grader @ 8 From [facility] Confirmation# 03/30/17 9:00am pickling grader @8 Confirmation # 04/01/17 9am apt, pickling grader @ 8:00am from [facility] Confirmatoin # 04/03/17 9am apt from [facility] (paramedic supervisor @ 8:00am) Confirmation # 04/05/17 9am apt from [facility] (paramedic supervisor @ 8:00am) Confirmation # 04/07/17 9am apt from [facility] (paramedic supervisor @ 8:00am) Confirmation # 04/09/17 9am apt from [facility] (paramedic supervisor @ 8:00am) Confirmation # 04/11/17 9am apt from [facility] (paramedic supervisor @ 8:00am) Confirmation # 04/13/17 9am apt from [facility] (paramedic supervisor @ 8:00am) Confirmation # [facility] will not transport pt from Hospital to [facility] IPR. REJI discussed this with the @ [facility] ? Discharge Planning Discharge Planning: OP HD or PD Set up transportation for pt's dialysis. Pt going to [facility] as soon as w/c van can be arranged [facility] [address] [place] [address] [facility] [address] [place], [place] [address] ? Medication Needs ? Financial ? Legal ? Other Disposition ? Discharge Preparation When ready for discharge, who will be responsible for transporting?: sister Type of Residence: Private residence Patient expects to be discharged to: Rehab facility Was the patient receiving home care services?: No ? Expected Discharge Expected Discharge Date: 03/25/17 ? Discharge Disposition ? Next Level Care Yesenia Stockton, [facility] *6246 * Care Plan - Patito Moulton RN - 03/25/2017 12:19 AM DRIVER Problem: Neurological Status, Impaired/Altered Goal: Progress toward [...] Consuelo Cox RN - 03/24/2017 3:07 AM DRIVER Problem: Neurological Status, Impaired/Altered Goal: Progress toward [...] - Yesenia Stockton - 03/22/2017 4:17 PM DRIVER Case Management Progress Note NAME:Naren Mayfield :[birth year] AGE: 51 y.o. ADMISSION DATE: 03/09/2017 DAYS ADMITTED: LOS: 13 days Todays Date: 03/22/2017 Plan SW met with the neurosurgery team regarding POC and d/c planning. Pt may be ready to transition to IPR as early as Saturday. Interventions ? Support Pt's sister, Mary Mayfield ([phone]) is pt's primary support. She is working with [facility] housing to try and get him his [...] through the end of this year (04/07/17). SW reviewed with pt and pt signed. This was sent to Calista Maldonado with the housing authority in [place] ( [phone]; [phone]); per pt and pt's sister's request. ? Discharge Planning Discharge Planning: OP HD or PD SW sent a referral to [facility] in [place], but they denied acceptance , stating that pt needs to have a d/c plan from there. SW discussed this with Mary, and she stated that she will not let him be homeless--that she can take him back in to her home, until she can get the housing voucher approved. REJI will review this with [facility] [place] clinical liaison. [facility] 1 [place] [address] ? Medication Needs ? Financial ? Legal [...] or Bedside) - Elaine Nicholson APRN - 03/21/2017 5: 47 PM DRIVER Formatting of this note may be different from the original. Neuro Critical Care Transcranial Doppler Ultrasound Report Naren Mayfield [id number] 51 y.o. male Diagnosis: SAH Indication for [...] to the neurosurgical team Staff name: Elaine NicholsonROLO Date: 03/21/2017 Associated attestation - Derrell Bowers MD - 03/22/2017 7:55 AM DRIVER I have personally reviewed the study. Bilaterally elevated LRs but mean MCA velocities < 120, do not meet criteria for vasospasm. Follow up study recommended. Derrell Bowers MD 03/22/2017 7:55 AM * Case Mgmt DC Plan - Kavitha Pimentel - 03/20/2017 3:54 PM DRIVER Request to Send Referral Received request from Yesenia Stockton [facility] to send referral to the following facility: Via [facility] 1 [place] [address] Kavitha Pimentel Customer Assistant For additional assistance please contact [facility] *[phone] * Case Mgmt DC Plan - Diana Scott RN - 03/20/2017 3:33 PM DRIVER Case Management Progress Note NAME:Naren Mayfield :[birth year] AGE: 51 y.o. ADMISSION DATE: 03/09/2017 DAYS ADMITTED: LOS: 11 days Todays Date: 03/20/2017 Plan Ongoing DC planning - Dialysis Center update Interventions ? Support ? Info or Referral ? Discharge Planning Discharge Planning: OP HD or PD - NCM updated Danita at [place], [place], ph [phone] / fax [phone] on patient's discharge planning (likely IPR, hopefully in [place], next week). NCM will contact [facility] again upon discharge so that they are [...] Disposition ? Next Level Care THANG Mack, military exchange wireless manager Nurse Oyster Planter [phone] * Case Mgmt DC Plan - Yesenia Stockton - 03/20/2017 2:58 PM DRIVER Case Management Progress Note NAME:Naren Mayfield :[birth year] [...] pt appropriate, but prefers to go to [facility]. SW requested that the [facility] please send a referral for their consideration. [...] Disposition ? Next Level Care Yesenia Stockton, [facility] *[id number] * Procedures (Immed Post or Bedside) - Rylee Arango APRN - 03/19/2017 12:17 PM DRIVER Formatting of this note may be different from the original. Neuro Critical Care Transcranial Doppler Ultrasound Report Naren Mayfield [id number] 51 y.o. male Diagnosis: SAH Indication for [...] the neurosurgical team Staff name: Rylee Arango, FIRE EXTINGUISHER MECHANIC Date: 03/19/2017 Associated attestation - Derrell Bowers MD - 03/19/2017 1:54 PM DRIVER Interval decrease in the MFV of left MCA, with slight increase in MFV of right MCAs. LRL 1.1; RLR 1.2. No sonographic evidence of vasospasm on this study. Derrell Bowers MD 03/19/2017 1:54 PM * Case Mgmt DC Plan - Yesenia Stockton - 03/18/2017 10:44 AM DRIVER Case Management Progress Note NAME:Naren Mayfield :[birth year] AGE: 51 y.o. ADMISSION DATE: 03/09/2017 DAYS ADMITTED: LOS: 9 days Todays Date: 03/18/2017 Plan SW met with the neurosurgery team [...] daughter (21). Due to pt's positive UDS, SW has contacted [facility] and filed a report; family aware of SW's report. Pt has been accepted for [facility] housing in [place] and was getting ready to move into his home just when he experienced the SAH. SW unsure what the status of his home currently is, but has offered support if letters re:pt's medical situation are needed. ? Info or Referral ? Discharge Planning Discharge Planning: OP HD or PD Rehab consult has been placed. Pt likely returning to [facility] ( [facility]). SW will watch to consult them as [...] Discharge Disposition ? Next Level Care Yesenia Moralesby, [facility] *[phone] * Procedures (Immed Post or Bedside) - Rosie Tanner APRN - 03/18/2017 5: 56 AM DRIVER Formatting of this note may be different from the original. Neuro Critical Care Transcranial Doppler Ultrasound Report Naren Mayfield [id number] 51 y.o. male Diagnosis: SAH Indication for [...] Derrell Bowers MD - 03/21/2017 6:12 PM DRIVER Elevated LR on left side 3.3, however mean flow velocity of L MCA is < 130 cm/ s. Could be an early finding of subsequent vasospasm. Right LR 1.6, normal velocities on right side. Follow up study recommended. Derrell Bowers MD 03/19/2017 1:50 PM * Critical Results - Karen Escalante RN - 03/17/2017 6:01 AM DRIVER Critical result or procedure called (document test and value, and read back): PO2 49 Time MD/SCRUMMASTER Notified: 0415 MD/SCRUMMASTER Name: Rosie Tanner APRN MD/SCRUMMASTER Response/Orders Given: Result thought to be in error. Orders given to redraw. * Procedures (Immed Post or Bedside) - Rosie Tanner APRN - 03/17/2017 5: 43 AM DRIVER Formatting of this note may be different from the original. Neuro Critical Care Transcranial Doppler Ultrasound Report Naren Mayfield [id number] 51 y.o. male Diagnosis: SAH Indication for [...] team Staff name: Rosie Tanner APRN Date: 03/17/2017 Associated attestation - Deborah Lynn MD - 03/26/2017 2:57 PM DRIVER Formatting of this note may be different from the original. ATTESTATION: No evidence of vasospasm on this study. I have interpreted the results. Staff name: Deborah Lynn MD Date: 03/26/2017 * Care Plan - Mary Amezquita RN - 03/14/2017 6:40 PM DRIVER Problem: Infection, Risk of, Central Venous Catheter-Associated Bloodstream Infection Goal: Absence of CVC Associated Bloodstream infection Outcome: Goal Achieved Date Met: 03/14/17 Pt no longer has central line * Case Mgmt DC Plan - Yesenia Stockton - 03/14/2017 10:46 AM DRIVER Case Management Progress Note NAME:Naren Mayfield :[birth year] [...] Disposition ? Next Level Care Yesenia Stockton, [facility] *[phone] * Procedures (Immed Post or Bedside) - Daianaberthajocelyn ElaineROLO - 03/14/2017 6: 46 AM DRIVER Formatting of this note may be different from the original. Neuro Critical Care Transcranial Doppler Ultrasound Report Naren Mayfield [id number] 51 y.o. male Diagnosis: SAH Indication for [...] Deborah Lynn MD - 03/26/2017 2:54 PM DRIVER Formatting of this note may be different from the original. ATTESTATION: Right TCDs not able to be obtained. Left sided study shows no evidence of vasospasm. I have interpreted the results. Staff name: Deborah Lynn MD Date: 03/26/2017 * Care Coordination-Inpatient - Vernell Corbin MD - 03/13/2017 6:56 PM DRIVER BRIEF VEEG NOTE First 30 min of EEG reviewed. Right PLEDs are seen. Will continue to monitor. Vernell Corbin MD Reformatory Attendant of Neurology [facility] * Case Mgmt DC Plan - Yesenia Stockton - 03/13/2017 2:28 PM DRIVER Case Management Progress Note NAME:Naren Mayfield :[birth year] AGE: 51 y.o. ADMISSION DATE: 03/09/2017 DAYS ADMITTED: LOS: 4 days Todays Date: 03/13/2017 Plan REJI met with the neurosurgery and neuro-icu team regarding pt's POC and d/c plan. SW was notified that pt was positive for amphetamine and benzos; according to the UDS completed upon admission. Interventions ? Support REJI talked with pt's sister, Mary, regarding pt's positive UDS, and as a mandated health sanitarian, SW would need to contact the state. [...] son is also with the aunt Torito. REJI did call [facility] to report the positive drug screen. Incident: [id number] ? Info or Referral ? Discharge Planning [...] * Procedures (Immed Post or Bedside) - Suad Weems APRN - 03/13/2017 6: 16 AM DRIVER Formatting of this note may be different from the original. [facility] Neuroscience ICU Transcranial Doppler Ultrasound Report Naren Mayfield [id number] 51 y.o. male Diagnosis:SAH Indication for TCD: [...] communicated to the neurosurgical team Staff name: Suad Weems APRN Date: 03/13/2017 Associated attestation - Deborah Lynn MD - 03/14/2017 1:39 PM DRIVER Formatting of this note may be different from the original. ATTESTATION: Increased left LR concerning for vasospasm. No evidence of right-sided vasospasm on this study. I have interpreted the results. Staff name: Deborah Lynn MD Date: 03/14/2017 * Case Mgmt DC Plan - Yesenia Stockton - 03/12/2017 4:33 PM DRIVER Case Management Progress Note NAME:Naren Mayfield :[birth year] AGE: 51 y.o. ADMISSION DATE: 03/09/2017 DAYS ADMITTED: LOS: 3 days Todays Date: 03/12/2017 Plan SW met with the neuro-surgery team regarding pt's [...] children; 6 of whom live in the [facility] area. ? Info or Referral none at [...] the hospital for the next 2 weeks. SW faxed the work letter and will provide the school letter directly to pt's sister to submit. ? Medication Needs ? Financial ? Legal ? Other Disposition ? Discharge Preparation ? Expected Discharge Expected Discharge Date: 03/22/17 ? Discharge Disposition ? Next Level Care Yesenia Stockton, [facility] *[phone] * Case Mgmt DC Plan - Diana Scott RN - 03/12/2017 2:08 PM DRIVER Case Management Progress Note NAME:Naren Mayfield :[birth year] AGE: 51 y.o. ADMISSION DATE: 03/09/2017 DAYS ADMITTED: LOS: 3 days Todays Date: 03/12/2017 Plan Ongoing DC planning - Outpatient dialysis Interventions ? Support ? Info or Referral ? Discharge Planning Discharge Planning: OP HD or PD * NCM confirmed with dialysis center that patient obtains his dialysis T--Sat at [place], [place], ph [phone] / fax [phone]. * This center is not part of [facility]; NCM sent [facility] referral, facesheet, H&P, renal consult, and dialysis report as of 03/12/17 to [facility] via [facility] fax function. * [facility] will update [facility] as needed as DC planning evolves; patient may require an inpatient setting at discharge. ? Medication Needs ? Financial ? Legal ? Other Disposition ? Discharge Preparation ? Expected Discharge Expected Discharge Date: 03/22/17 ? Discharge Disposition ? Next Level Care THANG Mack, military exchange wireless manager Nurse Oyster Planter [phone] * Procedures (Immed Post or Bedside) - Shannen Wilson APRN-NP - 03/12/2017 1: 10 AM DRIVER Formatting of this note may be different from the original. Neuro Critical Care Transcranial Doppler Ultrasound Report Naren Mayfield [id number] 51 y.o. male Diagnosis: SAH Indication for [...] communicated to the neurosurgical team Staff name: SUJIT Disla Date: 03/12/2017 Associated attestation - Deborah Lynn MD - 03/12/2017 11:55 AM DRIVER Formatting of this note may be different from the original. ATTESTATION: No evidence of vasospasm on this study. I have interpreted the results. Staff name: Deborah Lynn MD Date: 03/12/2017 * Case Mgmt DC Plan - Asia Arceecca - 03/11/2017 2:38 PM DRIVER Formatting of this note may be different from the original. Case Management Admission Assessment NAME:Naren Mayfield :1965 AGE: 51 y.o. ADMISSION DATE: 03/09/2017 DAYS ADMITTED: LOS: 2 days Todays Date: 03/11/2017 Source of Information: Patient's niece, Sim Gan Plan Plan: CM Assessment, Assist PRN with [...] days. Prior to admit, pt reportedly attending // HD at [facility], and was primarily transporting himself to/from HD appts. Emergency Contact No emergency contact information on file. Primary family support is pt's sister, Laura Mayfield -cell. Pt currently resides with his sister at [address] [place] [address]. DPOA None on file Transportation Does the [...] Laura, at the above listed address in [place], [place]. Per Sim, pt is primarily independent, [...] Yes Hemodialysis or Peritoneal Dialysis: Hemodialysis Location: [facility] attending: Saturday, , Saturday Does patient sit [...] ? Outpatient Therapy PT: No OT: No ENVIRONMENTAL CONSTRUCTION ENGINEER: No ? SNF/NH SNF: No NH: No [...] due to medical status Radha Arce LMSW, [facility] [phone] * Anesthesia Post Op Day 1 - Carmen Novak SRNA - 03/11/2017 9:57 AM DRIVER Formatting of this note may be different from the original. Anesthesia Follow-Up Evaluation: Post-Procedure Day One Name: Naren Mayfield : 1965 Age: 51 y.o. 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 - Neuromonitoring, aneurysm clips, microscope, ICG, radiolucent dayton Physical Assessment Height: 172.7 cm (68") Weight: [...] 1 - Carmen Novak SRNA - 03/11/2017 9:53 AM DRIVER Formatting of this note may be different [...] MINUTE (03/11 0819) SpO2: 98 % (03/11 819) O2 Delivery: Endotracheal Tube (Oral) (03/11 0600) SpO2 Pulse: 76 (03/11 0600) Patient History [...] Lyly Rogel MD - 03/09/2017 5:54 PM DRIVER Neuro Interventional Immediate Post Procedure Note Date: 03/09/2017 Attending Physician: Lyly Rogel MD Pushcart Peddler(s): Ankita Lopez Cerebral Angiogram Time out performed: [...] Exam: Intubated, sedated Lyly Rogel MD Pager: [phone] * Procedures (Immed Post or Bedside) - Rosie Tanner APRN - 03/09/2017 4: 29 PM DRIVER Formatting of this note may be different [...] RED BLOOD CELLS STAT 03/10/2017 10:29 AM DRIVER (INTRAOP ONLY) IR ARTERIOGRAM NEURO Routine 03/10/2017 9:34 AM DRIVER TRANSFUSE RBC'S NON-BLEEDING PT Routine 03/13/2017 1:10 PM DRIVER TRANSFUSE RBC'S NON-BLEEDING PT Routine 03/13/2017 1:10 PM DRIVER CULTURE-FUNGAL,OTHER Routine 03/14/2017 4:30 PM DRIVER CULTURE-TB (AFB) Routine 03/14/2017 4:30 PM DRIVER Name Priority Associated Diagnoses Order Schedule IR ARTERIOGRAM NEURO Routine ONE TIME for 1 Occurrences starting 03/11/2017 until 03/11/2017 as of this encounter Procedures Procedure Name Priority Date/Time Associated Diagnosis Comments CONSULT IV THERAPY TEAM Routine 03/19/2017 9:43 AM DRIVER ECG-SCAN 03/12/2017 Results for this 10:05 AM DRIVER procedure are in the results section. ECG-SCAN 03/12/2017 Results for this 10:05 AM DRIVER procedure are in the results section. ECG-SCAN 03/12/2017 Results for this 10:05 AM DRIVER procedure are in the results section. ECG-SCAN 03/12/2017 Results for this 10:05 AM DRIVER procedure are in the results section. REPAIR ANEURYSM 03/10/2017 Brain aneurysm CRANIOTOMY 8:15 PM DRIVER in this encounter Results * POC GLUCOSE (03/26/2017 1:47 PM) Component Value Ref Range Glucose, POC 103 (H) 70 - 100 MG/DL Specimen Performing Laboratory MAIN LAB [address] [place] [address] * HEMODIALYSIS INPATIENT (03/26/2017 1:10 PM) Narrative [...] Specimen Performing Laboratory Blood MAIN LAB [address] [place] [address] * BASIC METABOLIC PANEL (03/26/2017 4:20 AM) [...] Specimen Performing Laboratory Blood MAIN LAB [address] [place] [address] * POC GLUCOSE (03/26/2017 3:24 AM) Component Value Ref Range Glucose, POC 114 (H) 70 - 100 MG/DL Specimen Performing Laboratory [facility] [address] [place] [address] * POC GLUCOSE (03/25/2017 8:52 PM) Component Value Ref Range Glucose, POC 160 (H) 70 - 100 MG/DL Specimen Performing Laboratory [facility] [address] [place] [address] * POC GLUCOSE (03/25/2017 5:13 PM) Component Value Ref Range Glucose, POC 135 (H) 70 - 100 MG/DL Specimen Performing Laboratory [facility] [address] [place] [address] * POC GLUCOSE (03/25/2017 11:59 AM) Component Value Ref Range Glucose, POC 103 (H) 70 - 100 MG/DL Specimen Performing Laboratory [facility] [address] [place] [address] * POC GLUCOSE (03/25/2017 7:30 AM) Component Value Ref Range Glucose, POC 85 70 - 100 MG/DL Specimen Performing Laboratory [facility] [address] [place] [address] * CBC AND DIFF (03/25/2017 4:27 AM) [...] - 0.20 K/UL Specimen Performing Laboratory Blood [facility] [address] [place] [address] * BASIC METABOLIC PANEL (03/25/2017 4:27 AM) [...] Pharmacist for questions. Specimen Performing Laboratory Blood [facility] [address] [place] [address] * POC GLUCOSE (03/25/2017 1:51 AM) Component Value Ref Range Glucose, POC 90 70 - 100 MG/DL Specimen Performing Laboratory [facility] [address] [place] [address] * POC GLUCOSE (03/24/2017 8:52 PM) Component Value Ref Range Glucose, POC 160 (H) 70 - 100 MG/DL Specimen Performing Laboratory MAIN LAB [address] [place] [address] * POC GLUCOSE (03/24/2017 4:55 PM) Component Value Ref Range Glucose, POC 105 (H) 70 - 100 MG/DL Specimen Performing Laboratory MAIN LAB [address] [place] [address] * POC GLUCOSE (03/24/2017 11:42 AM) Component Value Ref Range Glucose, POC 158 (H) 70 - 100 MG/DL Specimen Performing Laboratory MAIN LAB [address] [place] [address] * POC GLUCOSE (03/24/2017 7:52 AM) Component Value Ref Range Glucose, POC 102 (H) 70 - 100 MG/DL Specimen Performing Laboratory MAIN LAB [address] [place] [address] * BASIC METABOLIC PANEL (03/24/2017 4:13 AM) [...] Specimen Performing Laboratory Blood MAIN LAB [address] [place] [address] * PHOSPHORUS (03/24/2017 4:13 AM) Component Value Ref Range Phosphorus 6.5 (H) 2.0 - 4.0 MG/DL Specimen Performing Laboratory Blood MAIN LAB [address] [place] [address] * CBC AND DIFF (03/24/2017 4:13 AM) [...] K/UL Specimen Performing Laboratory Blood MAIN LAB [address] [place] [address] * POC GLUCOSE (03/24/2017 3:55 AM) Component Value Ref Range Glucose, POC 97 70 - 100 MG/DL Specimen Performing Laboratory MAIN LAB [address] [place] [address] * POC GLUCOSE (03/23/2017 9:09 PM) Component Value Ref Range Glucose, POC 143 (H) 70 - 100 MG/DL Specimen Performing Laboratory MAIN LAB [address] [place] [address] * POC GLUCOSE (03/23/2017 5:37 PM) Component Value Ref Range Glucose, POC 134 (H) 70 - 100 MG/DL Specimen Performing Laboratory MAIN LAB [address] [place] [address] * HEMODIALYSIS INPATIENT (03/23/2017 3:24 PM) Narrative Dharmesh Navarro RN 03/23/20173:24 PM Arrived at patient room C [facility] and treatment started at 1040 am. Vital signs stable. Patient tolerating treatment well. Treatment complete at 1444 pm. Vital signs stable. [place] removed from L AV fistula and site healed. Report given to unit nurse. Left patient in room C [facility] in stable condition. * HEMODIALYSIS DATE (03/23/2017 3:24 PM) Narrative Dharmesh Navarro RN 03/23/20173:24 PM Arrived at patient room C [facility] and treatment started at 1040 am. Vital signs stable. Patient tolerating treatment well. Treatment complete at 1444 pm. Vital signs stable. [place] removed from L AV fistula and site healed. Report given to unit nurse. Left patient in room C 5112 in stable condition. * POC GLUCOSE (03/23/2017 1:10 PM) Component Value Ref Range Glucose, POC 146 (H) 70 - 100 MG/DL Specimen Performing Laboratory MAIN LAB [address] [place] [address] * POC GLUCOSE (03/23/2017 8:13 AM) Component Value Ref Range Glucose, POC 105 (H) 70 - 100 MG/DL Specimen Performing Laboratory MAIN LAB [address] [place] [address] * CBC AND DIFF (03/23/2017 4:39 AM) [...] K/UL Specimen Performing Laboratory Blood MAIN LAB [address] [place] [address] * BLOOD GASES, ARTERIAL (03/23/2017 4:39 AM) Component Value Ref Range pH-Arterial 7.26 (L) 7.35 - 7.45 pCO2-Arterial 36 35 - 45 MMHG pO2-Arterial 74 (L) 80 - 100 MMHG Base Deficit-Arterial 10.6 MMOL/L O2 Sat-Arterial 92.5 (L) 95 - 99 % Hsmyjgdixwo-UHB-Ifg 16.1 (L) 21 - 28 MMOL/L Specimen Performing Laboratory Blood, arterial - Blood MAIN LAB [address] [place] [address] * IONIZED CALCIUM (03/23/2017 4:39 AM) Component Value Ref Range Ionized Calcium 1.25 1.0 - 1.3 MMOL/L Specimen Performing Laboratory Blood MAIN LAB [address] [place] [address] * PHOSPHORUS (03/23/2017 4:39 AM) Component Value Ref Range Phosphorus 8.6 (H) 2.0 - 4.0 MG/DL Specimen Performing Laboratory Blood MAIN LAB [address] [place] [address] * MAGNESIUM (03/23/2017 4:39 AM) Component Value Ref Range Magnesium 2.6 1.6 - 2.6 mg/dL Specimen Performing Laboratory Blood MAIN LAB [address] [place] [address] * BASIC METABOLIC PANEL (03/23/2017 4:39 AM) [...] questions. Specimen Performing Laboratory Blood MAIN LAB [address] [place] [address] * POC GLUCOSE (03/23/2017 4:23 AM) Component Value Ref Range Glucose, POC 90 70 - 100 MG/DL Specimen Performing Laboratory MAIN LAB [address] [place] [address] * POC GLUCOSE (03/22/2017 8:40 PM) Component Value Ref Range Glucose, POC 110 (H) 70 - 100 MG/DL Specimen Performing Laboratory MAIN LAB [address] [place] [address] * POC GLUCOSE (03/22/2017 6:14 PM) Component Value Ref Range Glucose, POC 212 (H) 70 - 100 MG/DL Specimen Performing Laboratory MAIN LAB [address] [place] [address] * CT HEAD WO CONTRAST (03/22/2017 5:59 [...] Interface, Radiant Results - 03/23/2017 2:[address] HEAD HISTORY: Status post craniectomy, subarachnoid [...] 100 MG/DL Specimen Performing Laboratory MAIN LAB [address] [place] [address] * POC GLUCOSE (03/22/2017 8:07 AM) Component Value Ref Range Glucose, POC 128 (H) 70 - 100 MG/DL Specimen Performing Laboratory MAIN LAB [address] [place] [address] * CBC AND DIFF (03/22/2017 3:50 AM) [...] K/UL Specimen Performing Laboratory Blood MAIN LAB [address] [place] [address] * BLOOD GASES, ARTERIAL (03/22/2017 3:50 AM) Component Value Ref Range pH-Arterial 7.36 7.35 - 7.45 pCO2-Arterial 36 35 - 45 MMHG pO2-Arterial 83 80 - 100 MMHG Base Deficit-Arterial 4.2 MMOL/L O2 Sat-Arterial 96.1 95 - 99 % Ucffvrijjqa-FXY-Thp 20.9 (L) 21 - 28 MMOL/L Specimen Performing Laboratory Blood, arterial - Blood [facility] MAIN LAB [address] [place] [address] * IONIZED CALCIUM (03/22/2017 3:50 AM) Component Value Ref Range Ionized Calcium 1.21 1.0 - 1.3 MMOL/L Specimen Performing Laboratory Blood MAIN LAB [address] [place] [address] * PHOSPHORUS (03/22/2017 3:50 AM) Component Value Ref Range Phosphorus 6.3 (H) 2.0 - 4.0 MG/DL Specimen Performing Laboratory Blood MAIN LAB [address] [place] [address] * MAGNESIUM (03/22/2017 3:50 AM) Component Value Ref Range Magnesium 2.4 1.6 - 2.6 mg/dL Specimen Performing Laboratory Blood MAIN LAB [address] [place] [address] * BASIC METABOLIC PANEL (03/22/2017 3:50 AM) [...] Performing Laboratory Blood [facility] MAIN LAB [address] [place] [address] * POC GLUCOSE (03/22/2017 3:38 AM) Component Value Ref Range Glucose, POC 155 (H) 70 - 100 MG/DL Specimen Performing Laboratory [facility] MAIN LAB [address] [place] [address] * POC GLUCOSE (03/21/2017 9:12 PM) Component Value Ref Range Glucose, POC 153 (H) 70 - 100 MG/DL Specimen Performing Laboratory [facility] MAIN LAB [address] [place] [address] * POC GLUCOSE (03/21/2017 6:09 PM) Component Value Ref Range Glucose, POC 163 (H) 70 - 100 MG/DL Specimen Performing Laboratory MAIN LAB [address] [place] [address] * SWALLOW MOTION SERIES (03/21/2017 3:40 PM) [...] Interface, Radiant Results - 03/21/2017 4:44 PM DRIVER SWALLOW MOTION SERIES CLINICAL INDICATION: Male, 51 [...] 03/21/20171:02 PM 0630 Arrived in Pt's RM [id number] with portable R/O and diaysis machine/supply cart. ICU staff cleaning Pt from BM. [id number] R/O rinsing/cool down cycle in progress. Pt [...] 03/21/20171:02 PM 0630 Arrived in Pt's RM [id number] with portable R/O and diaysis machine/supply cart. ICU staff cleaning Pt from BM. [id number] R/O rinsing/cool down cycle in progress. Pt [...] 100 MG/DL Specimen Performing Laboratory MAIN LAB [address] [place] [address] * POC GLUCOSE (03/21/2017 8:05 AM) Component Value Ref Range Glucose, POC 169 (H) 70 - 100 MG/DL Specimen Performing Laboratory MAIN LAB [address] [place] [address] 10[address] * POC GLUCOSE (03/21/2017 3:42 AM) Component Value Ref Range Glucose, POC 150 (H) 70 - 100 MG/DL Specimen Performing Laboratory MAIN LAB [address] [place] [address] * CBC AND DIFF (03/21/2017 3:40 AM) [...] K/UL Specimen Performing Laboratory Blood MAIN LAB [address] [place] [address] * BLOOD GASES, ARTERIAL (03/21/2017 3:40 AM) Component Value Ref Range pH-Arterial 7.31 (L) 7.35 - 7.45 pCO2-Arterial 33 (L) 35 - 45 MMHG pO2-Arterial 65 (L) 80 - 100 MMHG Base Deficit-Arterial 9.1 MMOL/L O2 Sat-Arterial 89.9 (L) 95 - 99 % Kemytjasrhd-NRV-Hqw 17.0 (L) 21 - 28 MMOL/L Specimen Performing Laboratory Blood, arterial - Blood MAIN LAB [address] [place] [address] * IONIZED CALCIUM (03/21/2017 3:40 AM) Component Value Ref Range Ionized Calcium 1.23 1.0 - 1.3 MMOL/L Specimen Performing Laboratory Blood MAIN LAB [address] [place] [address] * PHOSPHORUS (03/21/2017 3:40 AM) Component Value Ref Range Phosphorus 7.0 (H) 2.0 - 4.0 MG/DL Specimen Performing Laboratory Blood MAIN LAB [address] [place] [address] * MAGNESIUM (03/21/2017 3:40 AM) Component Value Ref Range Magnesium 2.5 1.6 - 2.6 mg/dL Specimen Performing Laboratory Blood [facility] MAIN LAB [address] [place] [address] * BASIC METABOLIC PANEL (03/21/2017 3:40 AM) [...] Pharmacist for questions. Specimen Performing Laboratory Blood [facility] [address] [place] [address] * POC GLUCOSE (03/20/2017 8:54 PM) Component Value Ref Range Glucose, POC 139 (H) 70 - 100 MG/DL Specimen Performing Laboratory [facility] [address] [place] [address] 8[address] * POC GLUCOSE (03/20/2017 4:51 PM) Component Value Ref Range Glucose, POC 159 (H) 70 - 100 MG/DL Specimen Performing Laboratory MAIN LAB [address] [place] [address] 8[address] * POC GLUCOSE (03/20/2017 11:57 AM) Component Value Ref Range Glucose, POC 143 (H) 70 - 100 MG/DL Specimen Performing Laboratory MAIN LAB [address] [place] [address] 119[address] * POC GLUCOSE (03/20/2017 7:44 AM) Component Value Ref Range Glucose, POC 150 (H) 70 - 100 MG/DL Specimen Performing Laboratory [facility] [address] [place] [address] * CBC AND DIFF (03/20/2017 4:28 AM) [...] K/UL Specimen Performing Laboratory Blood MAIN LAB [address] [place] [address] * BLOOD GASES, ARTERIAL (03/20/2017 4:28 AM) Component Value Ref Range pH-Arterial 7.38 7.35 - 7.45 pCO2-Arterial 37 35 - 45 MMHG pO2-Arterial 85 80 - 100 MMHG Base Deficit-Arterial 2.3 MMOL/L O2 Sat-Arterial 96.1 95 - 99 % Srgqtgylqxk-KRF-Gfa 22.4 21 - 28 MMOL/L Specimen Performing Laboratory Blood, arterial - Blood [facility] MAIN LAB [address] [place] [address] * IONIZED CALCIUM (03/20/2017 4:28 AM) Component Value Ref Range Ionized Calcium 1.19 1.0 - 1.3 MMOL/L Specimen Performing Laboratory Blood [facility] MAIN LAB [address] [place] [address] * PHOSPHORUS (03/20/2017 4:28 AM) Component Value Ref Range Phosphorus 5.3 (H) 2.0 - 4.0 MG/DL Specimen Performing Laboratory Blood [facility] MAIN LAB [address] [place] [address] * MAGNESIUM (03/20/2017 4:28 AM) Component Value Ref Range Magnesium 2.2 1.6 - 2.6 mg/dL Specimen Performing Laboratory Blood [facility] MAIN LAB [address] [place] [address] * BASIC METABOLIC PANEL (03/20/2017 4:28 AM) [...] Specimen Performing Laboratory Blood MAIN LAB [address] [place] [address] * POC GLUCOSE (03/20/2017 3:23 AM) Component Value Ref Range Glucose, POC 150 (H) 70 - 100 MG/DL Specimen Performing Laboratory MAIN LAB [address] [place] [address] * POC GLUCOSE (03/19/2017 8:10 PM) Component Value Ref Range Glucose, POC 137 (H) 70 - 100 MG/DL Specimen Performing Laboratory MAIN LAB [address] [place] [address] * ABDOMEN AP ONLY (03/19/2017 7:37 PM) [...] Interface, Radiant Results - 03/20/2017 7:53 AM DRIVER Portable AP abdomen CLINICAL HISTORY: Corpak verification. [...] Specimen Performing Laboratory [facility] MAIN LAB [address] [place] [address] * ABDOMEN AP ONLY (03/19/2017 4:23 PM) [...] Interface, Radiant Results - 03/19/2017 4:39 PM DRIVER ABDOMEN AP ONLY Indication: Corpak placement. Comparison: [...] MG/DL Specimen Performing Laboratory MAIN LAB [address] [place] [address] * POC GLUCOSE (03/19/2017 8:26 AM) Component Value Ref Range Glucose, POC 163 (H) 70 - 100 MG/DL Specimen Performing Laboratory MAIN LAB [address] [place] [address] * CBC AND DIFF (03/19/2017 4:18 AM) [...] K/UL Specimen Performing Laboratory Blood MAIN LAB [address] [place] [address] * BLOOD GASES, ARTERIAL (03/19/2017 4:18 AM) Component Value Ref Range pH-Arterial 7.34 (L) 7.35 - 7.45 pCO2-Arterial 37 35 - 45 MMHG pO2-Arterial 108 (H) 80 - 100 MMHG Base Deficit-Arterial 5.2 MMOL/L O2 Sat-Arterial 98.4 95 - 99 % Xdqyigxinjt-JHV-Ajk 20.1 (L) 21 - 28 MMOL/L Specimen Performing Laboratory Blood, arterial - Blood MAIN LAB [address] [place] [address] * IONIZED CALCIUM (03/19/2017 4:18 AM) Component Value Ref Range Ionized Calcium 1.18 1.0 - 1.3 MMOL/L Specimen Performing Laboratory Blood MAIN LAB [address] [place] [address] * PHOSPHORUS (03/19/2017 4:18 AM) Component Value Ref Range Phosphorus 6.2 (H) 2.0 - 4.0 MG/DL Specimen Performing Laboratory Blood MAIN LAB [address] [place] [address] * MAGNESIUM (03/19/2017 4:18 AM) Component Value Ref Range Magnesium 2.3 1.6 - 2.6 mg/dL Specimen Performing Laboratory Blood MAIN LAB [address] [place] [address] * BASIC METABOLIC PANEL (03/19/2017 4:18 AM) [...] Performing Laboratory Blood [facility] MAIN LAB [address] [place] [address] * POC GLUCOSE (03/19/2017 3:02 AM) Component Value Ref Range Glucose, POC 181 (H) 70 - 100 MG/DL Specimen Performing Laboratory [facility] MAIN LAB [address] [place] [address] * US DOPPLER VENOUS BILATERAL (03/19/2017 1:15 [...] Interface, Radiant Results - 03/19/2017 6:45 AM DRIVER Bilateral lower extremity venous Doppler History: Immobility, [...] MG/DL Specimen Performing Laboratory MAIN LAB [address] [place] [address] * HEMODIALYSIS INPATIENT (03/18/2017 7:03 PM) Narrative Mihai Aly RN 03/18/20177:03 PM 1411 Status: Active Ordering user: Nir Timmons MD 03/17/17 1225 Ordering provider: Nir Timmons MD Authorized by: Nir Timmons MD Frequency: Once 03/17/17 1800 - 1 Occurrences Released by: Patti Garcia RN 03/17/17 3769 Questions: Date Hemodialysis to be performed: 03/18/2017 [...] Occurrences Released by: Patti Garcia RN 03/17/17 2956 Questions: Date Hemodialysis to be performed: 03/18/2017 [...] 100 MG/DL Specimen Performing Laboratory MAIN LAB [address] [place], [place] [id number] * POC GLUCOSE (03/18/2017 11:44 AM) Component Value Ref Range Glucose, POC 157 (H) 70 - 100 MG/DL Specimen Performing Laboratory MAIN LAB [address] [place] [address] * POC GLUCOSE (03/18/2017 10:03 AM) Component Value Ref Range Glucose, POC 194 (H) 70 - 100 MG/DL Specimen Performing Laboratory MAIN LAB [address] [place] [address] * POC GLUCOSE (03/18/2017 3:41 AM) Component Value Ref Range Glucose, POC 162 (H) 70 - 100 MG/DL Specimen Performing Laboratory MAIN LAB [address] [place], [place] [id number] * CBC AND DIFF (03/18/2017 3:40 AM) [...] K/UL Specimen Performing Laboratory Blood MAIN LAB [address] [place] [address] * BLOOD GASES, ARTERIAL (03/18/2017 3:40 AM) Component Value Ref Range pH-Arterial 7.28 (L) 7.35 - 7.45 pCO2-Arterial 33 (L) 35 - 45 MMHG pO2-Arterial 96 80 - 100 MMHG Base Deficit-Arterial 10.4 MMOL/L O2 Sat-Arterial 97.0 95 - 99 % Ctqpnhbdmwr-XOL-Nji 16.1 (L) 21 - 28 MMOL/L Specimen Performing Laboratory Blood, arterial - Blood MAIN LAB [address] [place] [address] * IONIZED CALCIUM (03/18/2017 3:40 AM) Component Value Ref Range Ionized Calcium 1.22 1.0 - 1.3 MMOL/L Specimen Performing Laboratory Blood MAIN LAB [address] [place] [address] * PHOSPHORUS (03/18/2017 3:40 AM) Component Value Ref Range Phosphorus 9.2 (H) 2.0 - 4.0 MG/DL Specimen Performing Laboratory Blood MAIN LAB [address] [place] [address] * MAGNESIUM (03/18/2017 3:40 AM) Component Value Ref Range Magnesium 2.6 1.6 - 2.6 mg/dL Specimen Performing Laboratory Blood MAIN LAB [address] [place] [address] * BASIC METABOLIC PANEL (03/18/2017 3:40 AM) [...] Performing Laboratory Blood [facility] MAIN LAB [address] [place] [address] * ABDOMEN AP ONLY (03/17/2017 9:28 PM) [...] Interface, Radiant Results - 03/18/2017 8:23 AM DRIVER Corpak placement. Technique: Single portable AP supine [...] 100 MG/DL Specimen Performing Laboratory MAIN LAB [address] [place] [address] * POC GLUCOSE (03/17/2017 4:51 PM) Component Value Ref Range Glucose, POC 153 (H) 70 - 100 MG/DL Specimen Performing Laboratory MAIN LAB [address] [place] [address] * POC GLUCOSE (03/17/2017 12:40 PM) Component Value Ref Range Glucose, POC 185 (H) 70 - 100 MG/DL Specimen Performing Laboratory MAIN LAB [address] [place] [address] * POC GLUCOSE (03/17/2017 9:07 AM) Component Value Ref Range Glucose, POC 147 (H) 70 - 100 MG/DL Specimen Performing Laboratory MAIN LAB [address] [place] [address] * CT CHEST W CONTRAST (03/17/2017 8:33 [...] Interface, Radiant Results - 03/17/2017 12:[address] Chest Clinical Indication: Male, 51 years [...] 1.0 - 1.3 MMOL/L Specimen Performing Laboratory [facility] [address] [place] [address] * POC SODIUM (03/17/2017 5:29 AM) Component Value Ref Range Sodium-POC 135 (L) 137 - 147 MMOL/L Specimen Performing Laboratory [facility] [address] [place] [address] * POC POTASSIUM (03/17/2017 5:29 AM) Component Value Ref Range Potassium-POC 3.8 3.5 - 5.1 MMOL/L Specimen Performing Laboratory [facility] [address] [place] [address] * POC HEMATOCRIT (03/17/2017 5:29 AM) Component Value Ref Range Hemoglobin POC 9.2 (L) 13.5 - 16.5 GM/DL Hematocrit POC 27.0 (L) 40 - 50 % Specimen Performing Laboratory [facility] [address] [place] [address] * POC BLOOD GAS ARTERIAL (03/17/2017 5:29 AM) Component Value Ref Range PH-ART-POC 7.35 7.35 - 7.45 NXB6-JSI-MAB 40 35 - 45 MMHG PO2-ART-POC 90 80 - 100 MMHG Base Def-ART-POC 4.0 MMOL/L O2 Sat-ART-POC 97.0 95 - 99 % Vjheykixabj-ZLP-WXS 22.0 21 - 28 MMOL/L Specimen Performing Laboratory [facility] [address] [place] [address] * BLOOD GASES, ARTERIAL (03/17/2017 5:27 AM) Component Value Ref Range pH-Arterial 7.32 (L) 7.35 - 7.45 pCO2-Arterial 41 35 - 45 MMHG pO2-Arterial 108 (H) 80 - 100 MMHG Base Deficit-Arterial 4.7 MMOL/L O2 Sat-Arterial 98.0 95 - 99 % Qirerinjxci-VZG-Pai 20.5 (L) 21 - 28 MMOL/L Specimen Performing Laboratory Blood, arterial - Blood MAIN LAB [address] [place] [address] * LIPASE (03/17/2017 4:13 AM) Component Value Ref Range Lipase 45 11 - 82 U/L Specimen Performing Laboratory MAIN LAB [address] [place] [address] * AMYLASE (03/17/2017 4:13 AM) Component Value Ref Range Amylase 86 24 - 100 U/L Specimen Performing Laboratory MAIN LAB [address] [place] [address] * CBC AND DIFF (03/17/2017 4:13 AM) [...] K/UL Specimen Performing Laboratory Blood MAIN LAB [address] [place] [address] * IONIZED CALCIUM (03/17/2017 4:13 AM) Component Value Ref Range Ionized Calcium 1.17 1.0 - 1.3 MMOL/L Specimen Performing Laboratory Blood MAIN LAB [address] [place] [address] * PHOSPHORUS (03/17/2017 4:13 AM) Component Value Ref Range Phosphorus 6.6 (H) 2.0 - 4.0 MG/DL Specimen Performing Laboratory Blood MAIN LAB [address] [place] [address] * MAGNESIUM (03/17/2017 4:13 AM) Component Value Ref Range Magnesium 2.4Comment: SLT HEMOLYSIS 1.6 - 2.6 mg/dL Specimen Performing Laboratory Blood MAIN LAB [address] [place] [address] * BASIC METABOLIC PANEL (03/17/2017 4:13 AM) [...] questions. Specimen Performing Laboratory Blood MAIN LAB [address] [place] [address]990 * POC GLUCOSE (03/17/2017 4:00 AM) Component Value Ref Range Glucose, POC 142 (H) 70 - 100 MG/DL Specimen Performing Laboratory MAIN LAB [address] [place] [address] 0[address] * POC GLUCOSE (03/16/2017 10:18 PM) Component Value Ref Range Glucose, POC 147 (H) 70 - 100 MG/DL Specimen Performing Laboratory MAIN LAB [address] [place] [address] * CHEST SINGLE VIEW (03/16/2017 10:10 PM) [...] Interface, Radiant Results - 03/17/2017 11:49 AM DRIVER CHEST SINGLE VIEW Clinical Indication: Male, 51 [...] Interface, Radiant Results - 03/17/2017 11:49 AM DRIVER CHEST SINGLE VIEW Clinical Indication: Male, 51 [...] O2 Sat-Arterial 95.1 95 - 99 % Sipjewknevo-XTI-Min 23.4 21 - 28 MMOL/L Specimen Performing Laboratory Blood, arterial - Blood MAIN LAB [address] [place] [address] * HEMODIALYSIS INPATIENT (03/16/2017 6:13 PM) Narrative Mihai Aly RN 03/16/20176:13 PM 6072 Status: Active Ordering user: Tracie Mitchell MD 12/08/17 1642 Ordering provider: Tracie Mitchell MD Authorized by: Tracie Mitchell MD Frequency: Once 03/16/17 0530 - 1 Occurrences Released by: Corazon Caba RN 03/16/17 05 Questions: Date Hemodialysis to be performed: 03/16/2017 [...] bed. 1530 B/P in the 200s systolic. data analytics specialist giving meds. UF increased to 3.[address] Cardona. 1615 BP remains above 200 systolic. ICU nurse addressing B/P. 1745 Dialysis complete. UF total was 4 liters. Phi DAVE given report. * HEMODIALYSIS DATE (03/16/2017 6:13 PM) Narrative Mihai Aly RN 03/16/20176:13 PM Status: Active Ordering user: Tracie Mitchell MD 12/08/17 1642 Ordering provider: Tracie Mitchell MD Authorized by: Tracie Mitchell MD Frequency: Once 03/16/17 0530 - 1 Occurrences Released by: Corazon Caba RN 03/16/17 0520 Questions: Date Hemodialysis to be performed: 03/16/2017 [...] bed. 1530 B/P in the 200s systolic. data analytics specialist giving meds. UF increased to 3.[address] Cardona. 1615 BP remains above 200 systolic. ICU nurse addressing B/P. 1745 Dialysis complete. UF total was 4 liters. Phi DAVE given report. * POC GLUCOSE (03/16/2017 5:18 PM) Component Value Ref Range Glucose, POC 127 (H) 70 - 100 MG/DL Specimen Performing Laboratory [facility] MAIN [facility] [address] [place] [address] * CBC AND DIFF (03/16/2017 2:10 PM) [...] K/UL Specimen Performing Laboratory Blood MAIN LAB [address] [place] [address] * POC GLUCOSE (03/16/2017 11:56 AM) Component Value Ref Range Glucose, POC 193 (H) 70 - 100 MG/DL Specimen Performing Laboratory MAIN LAB [address] [place] [address] * BETA HYDROXYBUTYRATE (KETONES) (03/16/2017 11:20 AM) Component Value Ref Range Beta Hydroxybutyrate 0.1 <0.3 MMOL/L Comment: Beta hydroxybutyrate (BOHB) is the most abundant ketone (78%), followed by acetoacetate (20%) and acetone (2%). Measurement BOHB is recommended to assess ketones in DKA. Expected BOHB Results for DKA: Initial presentation high/increasing During treatment decreasing Resolved decreasing/normal Specimen Performing Laboratory Blood MAIN LAB [address] [place] [address] * LACTIC ACID(LACTATE) (03/16/2017 11:20 AM) Component Value Ref Range Lactic Acid 0.8 0.5 - 2.0 MMOL/L Specimen Performing Laboratory Blood MAIN LAB [address] [place] [address] 9[address] * POC GLUCOSE (03/16/2017 7:59 AM) Component Value Ref Range Glucose, POC 191 (H) 70 - 100 MG/DL Specimen Performing Laboratory [facility] [address] [place] [address] * CHEST SINGLE VIEW (03/16/2017 6:32 AM) [...] however, the tip is not in the usiqg-dt-fgud. The heart size remains enlarged. No pulmonary vascular congestion is identified. There is been interval increased left pleural effusion and left basilar consolidation. The right lung remains clear focal consolidation or pleural effusion. No pneumothorax is identified. Procedure Note Interface, Radiant Results - 03/16/2017 11:22 AM DRIVER Exam: CHEST SINGLE VIEW History: left sided pleural effusion Comparison: Portable chest dated 03/14/2017.. Findings: The endotracheal tube and esophageal temperature probe have been removed. An enteric tube is again seen and can be followed below the diaphragm, however, the tip is not in the skzkm-ml-dcat. The heart size remains enlarged. No pulmonary [...] O2 Sat-Arterial 96.3 95 - 99 % Asfjnnzizvk-VLZ-Ycf 16.5 (L) 21 - 28 MMOL/L Specimen Performing Laboratory Blood, arterial - Blood MAIN LAB [address] [place] [address] * IONIZED CALCIUM (03/16/2017 5:07 AM) Component Value Ref Range Ionized Calcium 1.14 1.0 - 1.3 MMOL/L Specimen Performing Laboratory Blood MAIN LAB [address] [place], [place] [id number] * PHOSPHORUS (03/16/2017 5:07 AM) Component Value Ref Range Phosphorus 9.4 (H) 2.0 - 4.0 MG/DL Specimen Performing Laboratory Blood MAIN LAB [address] [place] [address] * MAGNESIUM (03/16/2017 5:07 AM) Component Value Ref Range Magnesium 2.4 1.6 - 2.6 mg/dL Specimen Performing Laboratory Blood MAIN LAB [address] [place], [place] [id number] * BASIC METABOLIC PANEL (03/16/2017 5:07 AM) [...] Pharmacist for questions. Specimen Performing Laboratory Blood [facility] [address] [place] [address] * POC GLUCOSE (03/16/2017 4:57 AM) Component Value Ref Range Glucose, POC 162 (H) 70 - 100 MG/DL Specimen Performing Laboratory MAIN LAB [address] [place], [place] [id number] * POC GLUCOSE (03/15/2017 8:24 PM) Component Value Ref Range Glucose, POC 182 (H) 70 - 100 MG/DL Specimen Performing Laboratory [facility] [address] [place], [place] [id number] * POC GLUCOSE (03/15/2017 5:26 PM) Component Value Ref Range Glucose, POC 163 (H) 70 - 100 MG/DL Specimen Performing Laboratory [facility] [address] [place], [place] [id number] * POC GLUCOSE (03/15/2017 12:10 PM) Component Value Ref Range Glucose, POC 162 (H) 70 - 100 MG/DL Specimen Performing Laboratory [facility] [address] [place], [place] [id number] * POC GLUCOSE (03/15/2017 8:19 AM) Component Value Ref Range Glucose, POC 163 (H) 70 - 100 MG/DL Specimen Performing Laboratory [facility] [address] [place] [address] * BLOOD GASES, ARTERIAL (03/15/2017 3:30 AM) Component Value Ref Range pH-Arterial 7.32 (L) 7.35 - 7.45 pCO2-Arterial 44 35 - 45 MMHG pO2-Arterial 145 (H) 80 - 100 MMHG Base Deficit-Arterial 3.7 MMOL/L O2 Sat-Arterial 99.5 (H) 95 - 99 % Mmluccaeqms-OLT-Yrm 21.3 21 - 28 MMOL/L Specimen Performing Laboratory Blood, arterial - Blood [facility] [address] [place], [place] [id number] * IONIZED CALCIUM (03/15/2017 3:30 AM) Component Value Ref Range Ionized Calcium 1.16 1.0 - 1.3 MMOL/L Specimen Performing Laboratory Blood [facility] MAIN LAB [address] [place] [address] * PHOSPHORUS (03/15/2017 3:30 AM) Component Value Ref Range Phosphorus 7.5 (H) 2.0 - 4.0 MG/DL Specimen Performing Laboratory Blood MAIN LAB [address] [place] [address] * MAGNESIUM (03/15/2017 3:30 AM) Component Value Ref Range Magnesium 2.2 1.6 - 2.6 mg/dL Specimen Performing Laboratory Blood MAIN LAB [address] [place] [address] * BASIC METABOLIC PANEL (03/15/2017 3:30 AM) [...] questions. Specimen Performing Laboratory Blood MAIN LAB [address] [place] [address] * POC GLUCOSE (03/15/2017 2:19 AM) Component Value Ref Range Glucose, POC 193 (H) 70 - 100 MG/DL Specimen Performing Laboratory MAIN LAB [address] [place] [address] * POC GLUCOSE (03/14/2017 8:04 PM) Component Value Ref Range Glucose, POC 172 (H) 70 - 100 MG/DL Specimen Performing Laboratory MAIN LAB [address] [place] [address] * POC GLUCOSE (03/14/2017 5:11 PM) Component Value Ref Range Glucose, POC 206 (H) 70 - 100 MG/DL Specimen Performing Laboratory MAIN LAB [address] [place] [address] * CHEST SINGLE VIEW (03/14/2017 5:08 PM) [...] the diaphragm and projects out of the tgull-hn-ytsc. Metallic wire is noted with tip overlying the tiara which may represent a guidewire. Persistent cardiomegaly without pulmonary venous congestion. Improvement in moderate left pleural effusion with adjacent left lung base consolidation. No pneumothorax. Procedure Note Interface, Radiant Results - 03/16/2017 12:03 AM DRIVER Procedure: CHEST SINGLE VIEW Clinical Indication: Status post thoracentesis. Comparison: Chest radiograph March 12, 2017 FINDINGS: Single portable semiupright AP chest radiograph was obtained. Endotracheal tube remains in similar position. Exchange of gastric tube for enteric tube which courses below the diaphragm and projects out of the wmxfw-qm-trzn. Metallic wire is noted with tip overlying [...] 0.7 % Specimen Performing Laboratory MAIN LAB [address] [place] [address] * GRAM STAIN (03/14/2017 4:30 PM) Component Value Ref Range Battery Name GRAM STAIN Specimen Description PLEURAL FLUID L pleural space Special Requests NONE Gram Stain RARE NEUTROPHILS MANY RBC'S NO ORGANISMS SEEN Report Status FINAL 03/15/2017 Specimen Performing Laboratory Pleural Fluid MAIN LAB [address] [place] [address] * CULTURE-WOUND/TISSUE/FLUID(AEROBIC ONLY)W/SENSITIVITY (03/14/2017 4:30 PM) Component Value Ref Range Battery Name ROUTINE CULTURE Specimen Description PLEURAL FLUID L pleural space Special Requests NONE Direct Gram Stain RARE NEUTROPHILS MANY RBC'S NO ORGANISMS SEEN Culture NO GROWTH 5 DAYS Report Status FINAL 03/19/2017 Specimen Performing Laboratory Pleural Fluid MAIN LAB [address] [place] [address] * PLEURAL FLUID ALBUMIN (03/14/2017 4:30 PM) Component Value Ref Range Pleural Fluid Albumin 2.3Comment: Pleural fluid albumin gradient >1.2 g/ dL g/dL is suggestive of an exudate Specimen Performing Laboratory Pleural Fluid MAIN LAB [address] [place] [address] * PLEURAL FLUID TOTAL BILIRUBIN (03/14/2017 4:30 PM) Component Value Ref Range Pleural Fluid Total 2.4 mg/dL Bilirubin Comment: Pleural fluid to serum bilirubin ratio of 0.6 suggests the presence of an exudate Specimen Performing Laboratory Pleural Fluid MAIN LAB [address] [place] [address] * PLEURAL FLUID GLUCOSE (03/14/2017 4:30 PM) Component Value Ref Range Pleural Fluid Glucose 160 (H) 70 - 100 mg/dL Comment: Glucose <60 mg/dL associated with parapneumonic effusion, tuberculosis, malignancy, empyema, and rheumatoid disease Specimen Performing Laboratory Pleural Fluid MAIN LAB [address] [place] [address] * PLEURAL FLUID LACTATE DEHYDROGENASE (03/14/2017 4:30 PM) Component Value Ref Range Pleural Fluid Lactate 255 (H)Comment: Higher levels suggestive of 67 - 140 U/L Dehydrogenase exudate Specimen Performing Laboratory Pleural Fluid MAIN LAB [address] [place] [address] * PLEURAL FLUID PH (03/14/2017 4:30 PM) Component Value Ref Range Pleural Fluid Ph 7.70 (H) 7.60 - 7.66 Specimen Performing Laboratory Pleural Fluid MAIN LAB [address] [place] [address] * PLEURAL FLUID TRIGLYCERIDES (03/14/2017 4:30 PM) Component Value Ref Range Pleural Fluid 20 mg/dL Triglycerides Comment: Triglycerides >110 mg/dL is suggestive of a chylothorax. Triglycerides <50 mg/dL is suggestive of pseudochylothorax. Specimen Performing Laboratory Pleural Fluid MAIN LAB [address] [place] [address] * PLEURAL FLUID TOTAL PROTEIN (03/14/2017 4:30 PM) Component Value Ref Range Pleural Fluid Total 3.8 (H)Comment: Serum to pleural fluid protein <1.1 g/ dL Protein gradient >3.1 g/dL is suggestive of an exudate Specimen Performing Laboratory Pleural Fluid MAIN LAB [address] [place], [place] [id number] * CELL COUNT W/DIFF-FLUIDS (03/14/2017 4:30 PM) Component Value Ref Range White Blood Cells,Fluid 160 /UL Red Blood Cells,Fluid 76670 /UL Segmented Neutrophils, 30 % Fluid Lymphocytes,Fluid [...] Laboratory Fluid - Pleural Fluid MAIN LAB [address] [place] [address] * POC GLUCOSE (03/14/2017 12:25 PM) Component Value Ref Range Glucose, POC 161 (H) 70 - 100 MG/DL Specimen Performing Laboratory MAIN LAB [address] [place] [address] * HEMODIALYSIS INPATIENT (03/14/2017 10:41 AM) Narrative Germaine Covarrubias RN 03/14/2017 10:41 AM waterproof bag sewer in patient's room. Patient sedated and on [...] AM) Rose Covarrubias RN 03/14/2017 10:41 AM waterproof bag sewer in patient's room. Patient sedated and on [...] returned manually to patient. Machine exchanged. * NON-RADIOACTIVE WASTE DISPOSAL DISPATCHER CYTOLOGY (BODY FLUIDS/TISSUE) (03/14/2017 8:49 AM) Component Value Ref Range Cytology [facility] [email or web address] Department of Pathology and Laboratory Medicine [address] [place] [address] Surgical Pathology Office: [phone] CYTOLOGY REPORT NAME: NAREN MAYFIELD CYTOLOGY #: [id number] MR #: [id number] ALT ID #: [id number] #: [id number] LOCATION: [facility] DATE OF PROCEDURE: 03/14/2017 AGE: 51 SEX: [...] 70 - 100 MG/DL Specimen Performing Laboratory [facility] [address] [place] [address] * BLOOD GASES, ARTERIAL (03/14/2017 5:00 AM) Component Value Ref Range pH-Arterial 7.26 (L) 7.35 - 7.45 pCO2-Arterial 41 35 - 45 MMHG pO2-Arterial 109 (H) 80 - 100 MMHG Base Deficit-Arterial 8.2 MMOL/L O2 Sat-Arterial 98.0 95 - 99 % Psqxojrotxt-CMS-Xib 17.8 (L) 21 - 28 MMOL/L Specimen Performing Laboratory Blood, arterial - Blood [facility] [address] [place] [address] * IONIZED CALCIUM (03/14/2017 5:00 AM) Component Value Ref Range Ionized Calcium 1.11 1.0 - 1.3 MMOL/L Specimen Performing Laboratory Blood [facility] [address] [place] [address] * LDH-LACTATE DEHYDROGENASE (03/14/2017 3:15 AM) Component Value Ref Range Lactate Dehydrogenase 225 (H) 100 - 210 U/L Specimen Performing Laboratory [facility] [address] [place] [address] * CHEM 7 ADD ON (03/14/2017 3:15 AM) Component Value Ref Range Total Protein 7.2 6.0 - 8.0 G/DL Total Bilirubin 0.5 0.3 - 1.2 MG/DL Albumin 3.6 3.5 - 5.0 G/DL Alk Phosphatase 71 25 - 110 U/L AST (SGOT) 21 7 - 40 U/L ALT (SGPT) 3 (L) 7 - 56 U/L Specimen Performing Laboratory MAIN LAB [address] [place], [place] [id number] * LIPASE (03/14/2017 3:15 AM) Component Value Ref Range Lipase 26 11 - 82 U/L Specimen Performing Laboratory MAIN LAB [address] [place], [place] [id number] * AMYLASE (03/14/2017 3:15 AM) Component Value Ref Range Amylase 115 (H) 24 - 100 U/L Specimen Performing Laboratory [facility] [address] [place], [place] [id number] * LIPID PROFILE (03/14/2017 3:15 AM) Component [...] less than 130 mg/dL. Specimen Performing Laboratory [facility] [address] [place] [address] * PHOSPHORUS (03/14/2017 3:15 AM) Component Value Ref Range Phosphorus 9.1 (H) 2.0 - 4.0 MG/DL Specimen Performing Laboratory Blood [facility] [address] [place] [address] 0[address] * MAGNESIUM (03/14/2017 3:15 AM) Component Value Ref Range Magnesium 2.7 (H) 1.6 - 2.6 mg/dL Specimen Performing Laboratory Blood [facility] [address] [place] [address] * BASIC METABOLIC PANEL (03/14/2017 3:15 AM) [...] questions. Specimen Performing Laboratory Blood MAIN LAB [address] [place] [address] * OSMOLALITY (03/14/2017 3:15 AM) Component Value Ref Range Osmolality 312 (H) 280 - 307 MOSMOL/KG Specimen Performing Laboratory Blood MAIN LAB [address] [place] [address] * FIBRINOGEN (03/14/2017 3:15 AM) Component Value Ref Range Fibrinogen 693 (H) 200 - 400 MG/DL Specimen Performing Laboratory Blood MAIN LAB [address] [place] [address] * CBC AND DIFF (03/14/2017 3:15 AM) [...] - 0.20 K/UL Specimen Performing Laboratory Blood [facility] [address] [place] [address] * POC GLUCOSE (03/14/2017 3:11 AM) Component Value Ref Range Glucose, POC 82 70 - 100 MG/DL Specimen Performing Laboratory [facility] [address] [place] [address] * POC GLUCOSE (03/13/2017 9:40 PM) Component Value Ref Range Glucose, POC 182 (H) 70 - 100 MG/DL Specimen Performing Laboratory [facility] [address] [place] [address] * POC GLUCOSE (03/13/2017 4:45 PM) Component Value Ref Range Glucose, POC 152 (H) 70 - 100 MG/DL Specimen Performing Laboratory [facility] [address] [place] [address]686 * CBC (03/13/2017 4:25 PM) Component Value [...] - 11 FL Specimen Performing Laboratory Blood [facility] [address] [place], [place] [id number] * TEG WITH KAOLIN (03/13/2017 4:25 PM) [...] Laboratory [facility] MAIN LAB [address] [place] [address] * CT ABD/PELV WO CONTRAST (03/13/2017 12:27 [...] Interface, Radiant Results - 03/13/2017 4:[address] ABDOMEN AND PELVIS Clinical Indication: Male, [...] Screen NEG Electronic Crossmatch YES Unit Number [id number] Blood Component Type RBC,ADSOL,LEUKO REDUCED Unit Division 0 Status OF Unit TRANSFUSED Transfusion Status OK TO TRANSFUSE Crossmatch Result COMPATIBLE,ELECTRONIC Specimen Performing Laboratory Blood MAIN LAB [address] [place] [address] * C DIFFICILE BY PCR (03/13/2017 10:30 AM) Component Value Ref Range Battery Name C DIFFICILE PCR Specimen Description FECES Special Requests NONE C. Difficile Toxin B PCR NEGATIVE-wait 7 days to repeat test Report Status FINAL 03/14/2017 Specimen Performing Laboratory Feces MAIN LAB [address] [place] [address] * POC GLUCOSE (03/13/2017 10:24 AM) Component Value Ref Range Glucose, POC 152 (H) 70 - 100 MG/DL Specimen Performing Laboratory MAIN LAB [address] [place] [address] * CT BRAIN PERF (03/13/2017 9:04 AM) [...] Interface, Radiant Results - 03/13/2017 9:44 AM DRIVER EXAM: CTA HEAD AND CT PERFUSION HISTORY: [...] Interface, Radiant Results - 03/13/2017 9:44 AM DRIVER EXAM: CTA HEAD AND CT PERFUSION HISTORY: [...] O2 Sat-Arterial 98.7 95 - 99 % Txelyslrqwv-XRA-Dmr 21.9 21 - 28 MMOL/L Specimen Performing Laboratory Blood, arterial - Blood MAIN LAB [address] [place] [address] * BLOOD GASES, ARTERIAL (03/13/2017 3:44 AM) Component Value Ref Range pH-Arterial 7.37 7.35 - 7.45 pCO2-Arterial 42 35 - 45 MMHG pO2-Arterial 99 80 - 100 MMHG Base Deficit-Arterial 1.1 MMOL/L O2 Sat-Arterial 97.3 95 - 99 % Ywwurqqvwlo-BGF-Kpr 23.5 21 - 28 MMOL/L Specimen Performing Laboratory Blood, arterial - Blood MAIN LAB [address] [place] [address] * IONIZED CALCIUM (03/13/2017 3:44 AM) Component Value Ref Range Ionized Calcium 1.11 1.0 - 1.3 MMOL/L Specimen Performing Laboratory Blood MAIN LAB [address] [place] [address] * PHOSPHORUS (03/13/2017 3:44 AM) Component Value Ref Range Phosphorus 6.6 (H) 2.0 - 4.0 MG/DL Specimen Performing Laboratory Blood MAIN LAB [address] [place] [address] * MAGNESIUM (03/13/2017 3:44 AM) Component Value Ref Range Magnesium 2.2 1.6 - 2.6 mg/dL Specimen Performing Laboratory Blood MAIN LAB [address] [place] [address] * CBC AND DIFF (03/13/2017 3:44 AM) [...] Specimen Performing Laboratory Blood MAIN LAB [address] [place] [address] * BASIC METABOLIC PANEL (03/13/2017 3:44 AM) [...] Specimen Performing Laboratory Blood MAIN LAB [address] [place] [address] * POC GLUCOSE (03/13/2017 3:42 AM) Component Value Ref Range Glucose, POC 129 (H) 70 - 100 MG/DL Specimen Performing Laboratory MAIN LAB [address] [place] [address] * POC GLUCOSE (03/12/2017 11:25 PM) Component Value Ref Range Glucose, POC 197 (H) 70 - 100 MG/DL Specimen Performing Laboratory [facility] MAIN [facility] [address] [place] [address] * POC GLUCOSE (03/12/2017 5:14 PM) Component Value Ref Range Glucose, POC 139 (H) 70 - 100 MG/DL Specimen Performing Laboratory MAIN LAB [address] [place] [address] * HEMODIALYSIS INPATIENT (03/12/2017 4:52 PM) Narrative [...] updated on pt. Pt remains in room [id number] at this time. * HEMODIALYSIS DATE (03/12/2017 [...] updated on pt. Pt remains in room [id number] at this time. * TRANSFUSE RBC'S NON-BLEEDING PT (03/12/2017 1:48 PM) Specimen Performing Laboratory Blood * TRANSFUSE RBC'S NON-BLEEDING PT (03/12/2017 1:48 PM) Specimen Performing Laboratory Blood * POC GLUCOSE (03/12/2017 11:49 AM) Component Value Ref Range Glucose, POC 165 (H) 70 - 100 MG/DL Specimen Performing Laboratory [facility] MAIN LAB [address] [place] [address] * ABDOMEN AP ONLY (03/12/2017 11:08 AM) [...] Interface, Radiant Results - 03/12/2017 11:36 AM DRIVER Supine abdomen CLINICAL HISTORY: Post feeding tube [...] Sat-Arterial 92.3 (L) 95 - 99 % Vcxcimbemos-YCR-Xge 20.9 (L) 21 - 28 MMOL/L Specimen Performing Laboratory Blood, arterial - Blood [facility] MAIN LAB [address] [place] [address] * ECG-SCAN (03/12/2017 10:05 AM) Narrative Ordered [...] level <7%. Specimen Performing Laboratory MAIN LAB [address] [place] [address] * BLOOD GASES, ARTERIAL (03/12/2017 3:44 AM) Component Value Ref Range pH-Arterial 7.35 7.35 - 7.45 pCO2-Arterial 42 35 - 45 MMHG pO2-Arterial 132 (H) 80 - 100 MMHG Base Deficit-Arterial 2.1 MMOL/L O2 Sat-Arterial 98.9 95 - 99 % Goqgznshnbq-IDT-Jca 22.7 21 - 28 MMOL/L Specimen Performing Laboratory Blood, arterial - Blood MAIN LAB [address] [place] [address] * IONIZED CALCIUM (03/12/2017 3:44 AM) Component Value Ref Range Ionized Calcium 1.14 1.0 - 1.3 MMOL/L Specimen Performing Laboratory Blood MAIN LAB [address] [place] [address] * PHOSPHORUS (03/12/2017 3:44 AM) Component Value Ref Range Phosphorus 8.7 (H) 2.0 - 4.0 MG/DL Specimen Performing Laboratory Blood MAIN LAB [address] [place] [address] * MAGNESIUM (03/12/2017 3:44 AM) Component Value Ref Range Magnesium 2.2 1.6 - 2.6 mg/dL Specimen Performing Laboratory Blood MAIN LAB [address] [place] [address] * CBC AND DIFF (03/12/2017 3:44 AM) [...] Performing Laboratory Blood [facility] MAIN [facility] [address] [place] [address] * BASIC METABOLIC PANEL (03/12/2017 3:44 AM) [...] Performing Laboratory Blood [facility] MAIN [facility] [address] [place] [address] * CHEST SINGLE VIEW (03/12/2017 3:40 AM) [...] the diaphragm and projects out of the ywwtz-qa-rcao. Persistent cardiomegaly without pulmonary venous congestion. Large left pleural effusion with adjacent consolidation. No pneumothorax. Procedure Note Interface, Radiant Results - 03/12/2017 11:09 AM DRIVER Procedure: CHEST SINGLE VIEW Clinical Indication: Pleural effusion. Comparison: Chest radiograph March 10, 2017 FINDINGS: Single portable supine AP chest radiograph was obtained. Endotracheal tube with tip well above the tiara at the level of the clavicles. Gastric tube courses below the diaphragm and projects out of the tfsnm-sb-bgdf. Persistent cardiomegaly without pulmonary venous congestion. Large [...] Interface, Radiant Results - 03/11/2017 5:03 PM DRIVER EXAM: CT HEAD HISTORY: , craniectomy last [...] Range BSA 2.35 m2 CV ECHO PV OIL RECOVERY OPERATOR TENZIN Anand LVIDD 5.9 4.2 - 5.9 [...] * HEMODIALYSIS INPATIENT (03/11/2017 2:41 PM) Narrative Bailee Gann RN 03/11/20172:41 PM 0900 Arrived in [facility] to set up for dialysis. Assessment completed and documented. Care of pt, respirator and all lines remains with his primary CHIEF STEWARD/STEWARDESSTENZIN Jean. Left AVF assessed and found to [...] and paper tape. Report given to primary CHIEF STEWARD/STEWARDESSTENZIN Jean. * TROPONIN-I (03/11/2017 8:43 AM) Component Value Ref Range Troponin-I 0.17 (H) 0.0 - 0.05 NG/ML Specimen Performing Laboratory Blood MAIN LAB [address] [place] [address] * TROPONIN-I (03/11/2017 6:07 AM) Component Value Ref Range Troponin-I 0.16 (H) 0.0 - 0.05 NG/ML Specimen Performing Laboratory Blood MAIN LAB [address] [place] [address] * IONIZED CALCIUM (03/11/2017 3:55 AM) Component Value Ref Range Ionized Calcium 1.05 1.0 - 1.3 MMOL/L Specimen Performing Laboratory MAIN LAB [address] [place] [address] * TROPONIN-I (03/11/2017 3:55 AM) Component Value Ref Range Troponin-I 0.15 (H) 0.0 - 0.05 NG/ML Specimen Performing Laboratory MAIN LAB [address] [place] [address] * BLOOD GASES, ARTERIAL (03/11/2017 3:55 AM) Component Value Ref Range pH-Arterial 7.36 7.35 - 7.45 pCO2-Arterial 41 35 - 45 MMHG pO2-Arterial 135 (H) 80 - 100 MMHG Base Deficit-Arterial 2.3 MMOL/L O2 Sat-Arterial 99.2 (H) 95 - 99 % Fcudpzmkiyg-QNX-Blh 22.5 21 - 28 MMOL/L Specimen Performing Laboratory Blood, arterial - Blood MAIN LAB [address] [place] [address] * PHOSPHORUS (03/11/2017 3:55 AM) Component Value Ref Range Phosphorus 9.1 (H) 2.0 - 4.0 MG/DL Specimen Performing Laboratory Blood MAIN LAB [address] [place], [place] [id number] * MAGNESIUM (03/11/2017 3:55 AM) Component Value Ref Range Magnesium 2.1 1.6 - 2.6 mg/dL Specimen Performing Laboratory Blood MAIN LAB [address] [place] [address] * CBC AND DIFF (03/11/2017 3:55 AM) [...] Specimen Performing Laboratory Blood MAIN LAB [address] [place] [address] * BASIC METABOLIC PANEL (03/11/2017 3:55 AM) [...] Performing Laboratory Blood [facility]IN [facility] [address] [place] [address] * TROPONIN-I (03/11/2017 12:50 AM) Component Value Ref Range Troponin-I 0.13 (H) 0.0 - 0.05 NG/ML Specimen Performing Laboratory Blood [facility] MAIN [facility] [address] [place] [address] * BLOOD GASES, ARTERIAL (03/11/2017 12:50 AM) Component Value Ref Range pH-Arterial 7.36 7.35 - 7.45 pCO2-Arterial 41 35 - 45 MMHG pO2-Arterial 140 (H) 80 - 100 MMHG Base Deficit-Arterial 2.1 MMOL/L O2 Sat-Arterial 99.3 (H) 95 - 99 % Onpjwfqnwan-YEE-Uey 22.7 21 - 28 MMOL/L Specimen Performing Laboratory Blood, arterial - Blood [facility] MAIN LAB [address] [place] [address] * FLUORO MOBILE IN OR (03/10/2017 10:18 [...] angiography is performed to evaluate the vasculature. ACID TANK CLEANER. Rohit GRAIN OILSEED OR PASTURE FARM WORKER. David PGY-6 PROCEDURE. 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 Patient required emergent reoperation for neurologic change. CT perfusion demonstrates prolonged mean transit times involving the inferior division of the right MCA. Intraoperative angiography is performed to evaluate the vasculature. ACID TANK CLEANER. Rohit GRAIN OILSEED OR PASTURE FARM WORKER. David PGY-6 PROCEDURE. Intraoperative angiography right internal [...] PM. * HEMODIALYSIS DATE (03/10/2017 9:16 PM) Rose Navarro RN 03/10/20179:16 PM Arrived on unit and contacted unit nurse for patient at 2014 pm. Patient had cranial bleed and sent to CT and then to OR for second time.Bulk Truck Driver contacted and said patient may be done the next morning.Unit nurse also said patient may still have needles from outpatient dialysis unit in fistula. Patient already in OR. * POC IONIZED CALCIUM (03/10/2017 9:03 PM) Component Value Ref Range Ionized Calcium-POC 0.98 (L) 1.0 - 1.3 MMOL/L Specimen Performing Laboratory MAIN LAB [address] [place] [address] * POC SODIUM (03/10/2017 9:03 PM) Component Value Ref Range Sodium-POC 134 (L) 137 - 147 MMOL/L Specimen Performing Laboratory MAIN LAB [address] [place], [place] [id number] * POC POTASSIUM (03/10/2017 9:03 PM) Component Value Ref Range Potassium-POC 4.0 3.5 - 5.1 MMOL/L Specimen Performing Laboratory [facility] [address] [place] [address] * POC HEMATOCRIT (03/10/2017 9:03 PM) Component Value Ref Range Hemoglobin POC 9.5 (L) 13.5 - 16.5 GM/DL Hematocrit POC 28.0 (L) 40 - 50 % Specimen Performing Laboratory MAIN LAB [address] [place], [place] [id number] * POC BLOOD GAS ARTERIAL (03/10/2017 9:03 PM) Component Value Ref Range PH-ART-POC 7.34 (L) 7.35 - 7.45 AEJ6-GNE-DXY 44 35 - 45 MMHG PO2-ART-POC 69 (L) 80 - 100 MMHG Base Def-ART-POC 2.0 MMOL/L O2 Sat-ART-POC 92.0 (L) 95 - 99 % Ahebfutyrcw-YFD-TXN 23.7 21 - 28 MMOL/L Specimen Performing Laboratory MAIN LAB [address] [place], [place] [id number] * TROPONIN-I (03/10/2017 8:50 PM) Component Value Ref Range Troponin-I 0.16 (H) 0.0 - 0.05 NG/ML Specimen Performing Laboratory [facility] [address] [place], [place] [id number] * PHOSPHORUS (03/10/2017 8:50 PM) Component Value Ref Range Phosphorus 8.1 (H) 2.0 - 4.0 MG/DL Specimen Performing Laboratory MAIN LAB [address] [place], [place] [id number] * CBC (03/10/2017 8:50 PM) Component Value [...] 11 FL Specimen Performing Laboratory MAIN LAB [address] [place] [address] * BASIC METABOLIC PANEL (03/10/2017 8:50 PM) [...] for questions. Specimen Performing Laboratory MAIN LAB [address] [place] [address] * PTT (APTT) (03/10/2017 8:50 PM) Component Value Ref Range APTT 29.8Comment: NOTE NEW REFERENCE RANGES 21.0 - 39.0 SEC Specimen Performing Laboratory Blood [facility] [address] [place] [address] * PROTIME INR (PT) (03/10/2017 8:50 PM) Component Value Ref Range INR 1.3 (H) 0.8 - 1.2 Specimen Performing Laboratory Blood MAIN LAB [address] [place] [address] * CT BRAIN PERF (03/10/2017 8:35 PM) [...] Interface, Radiant Results - 03/10/2017 9:56 PM DRIVER EXAM: CTA HEAD AND NECK, CTA BRAIN [...] Interface, Radiant Results - 03/10/2017 9:56 PM DRIVER EXAM: CTA HEAD AND NECK, CTA BRAIN [...] 1.3 MMOL/L Specimen Performing Laboratory MAIN LAB [address] [place] [address] * POC SODIUM (03/10/2017 5:00 PM) Component Value Ref Range Sodium-POC 135 (L) 137 - 147 MMOL/L Specimen Performing Laboratory MAIN LAB [address] [place] [address] * POC POTASSIUM (03/10/2017 5:00 PM) Component Value Ref Range Potassium-POC 4.0 3.5 - 5.1 MMOL/L Specimen Performing Laboratory MAIN LAB [address] [place] [address] * POC HEMATOCRIT (03/10/2017 5:00 PM) Component Value Ref Range Hemoglobin POC 8.5 (L) 13.5 - 16.5 GM/DL Hematocrit POC 25.0 (L) 40 - 50 % Specimen Performing Laboratory MAIN LAB [address] [place] [address] * POC BLOOD GAS ARTERIAL (03/10/2017 5:00 PM) Component Value Ref Range PH-ART-POC 7.40 7.35 - 7.45 [id number]-KOV-GSI 37 35 - 45 MMHG PO2-ART-POC 76 (L) 80 - 100 MMHG Base Def-ART-POC 2.0 MMOL/L O2 Sat-ART-POC 95.0 95 - 99 % Kqrsuhhydkg-YKK-RCE 23.0 21 - 28 MMOL/L Specimen Performing Laboratory MAIN LAB [address] [place] [address] * POC IONIZED CALCIUM (03/10/2017 2:30 PM) Component Value Ref Range Ionized Calcium-POC 0.97 (L) 1.0 - 1.3 MMOL/L Specimen Performing Laboratory MAIN LAB [address] [place] [address] * POC SODIUM (03/10/2017 2:30 PM) Component Value Ref Range Sodium-POC 135 (L) 137 - 147 MMOL/L Specimen Performing Laboratory [facility] LAB [address] [place] [address] * POC POTASSIUM (03/10/2017 2:30 PM) Component Value Ref Range Potassium-POC 4.0 3.5 - 5.1 MMOL/L Specimen Performing Laboratory MAIN LAB [address] [place], [place] [id number] * POC HEMATOCRIT (03/10/2017 2:30 PM) Component Value Ref Range Hemoglobin POC 8.8 (L) 13.5 - 16.5 GM/DL Hematocrit POC 26.0 (L) 40 - 50 % Specimen Performing Laboratory [facility] LAB [address] [place], [place] [id number] * POC BLOOD GAS ARTERIAL (03/10/2017 2:30 PM) Component Value Ref Range PH-ART-POC 7.42 7.35 - 7.45 DTT2-XNI-RHW 37 35 - 45 MMHG PO2-ART-POC 72 (L) 80 - 100 MMHG Base Ex-ART-POC 0.0 MMOL/L O2 Sat-ART-POC 95.0 95 - 99 % Mdbhkvlfddl-CSS-JTT 24.0 21 - 28 MMOL/L Specimen Performing Laboratory MAIN LAB [address] [place] [address] * POC GLUCOSE (03/10/2017 12:10 PM) Component Value Ref Range Glucose, POC 90 70 - 100 MG/DL Specimen Performing Laboratory [facility] [address] [place], [place] [id number] * POC IONIZED CALCIUM (03/10/2017 11:29 AM) Component Value Ref Range Ionized Calcium-POC 1.01 1.0 - 1.3 MMOL/L Specimen Performing Laboratory [facility] [address] [place] [address] * POC SODIUM (03/10/2017 11:29 AM) Component Value Ref Range Sodium-POC 135 (L) 137 - 147 MMOL/L Specimen Performing Laboratory [facility] [address] [place] [address] * POC POTASSIUM (03/10/2017 11:29 AM) Component Value Ref Range Potassium-POC 3.5 3.5 - 5.1 MMOL/L Specimen Performing Laboratory [facility] [address] [place] [address] * POC HEMATOCRIT (03/10/2017 11:29 AM) Component Value Ref Range Hemoglobin POC 8.5 (L) 13.5 - 16.5 GM/DL Hematocrit POC 25.0 (L) 40 - 50 % Specimen Performing Laboratory [facility] [address] [place] [address] * POC BLOOD GAS ARTERIAL (03/10/2017 11:29 AM) Component Value Ref Range PH-ART-POC 7.45 7.35 - 7.45 ULS2-FYR-GBJ 36 35 - 45 MMHG PO2-ART-POC 86 80 - 100 MMHG Base Ex-ART-POC 1.0 MMOL/L O2 Sat-ART-POC 97.0 95 - 99 % Korjfjwwvet-PSK-JJE 24.6 21 - 28 MMOL/L Specimen Performing Laboratory [facility] [address] [place] [address] * POC IONIZED CALCIUM (03/10/2017 10:18 AM) Component Value Ref Range Ionized Calcium-POC 1.02 1.0 - 1.3 MMOL/L Specimen Performing Laboratory [facility] [address] [place] [address] * POC SODIUM (03/10/2017 10:18 AM) Component Value Ref Range Sodium-POC 135 (L) 137 - 147 MMOL/L Specimen Performing Laboratory [facility] [address] [place] [address] * POC POTASSIUM (03/10/2017 10:18 AM) Component Value Ref Range Potassium-POC 3.4 (L) 3.5 - 5.1 MMOL/L Specimen Performing Laboratory [facility] [address] [place] [address] * POC HEMATOCRIT (03/10/2017 10:18 AM) Component Value Ref Range Hemoglobin POC 7.8 (L) 13.5 - 16.5 GM/DL Hematocrit POC 23.0 (L) 40 - 50 % Specimen Performing Laboratory MAIN LAB [address] [place] [address] * POC BLOOD GAS ARTERIAL (03/10/2017 10:18 AM) Component Value Ref Range PH-ART-POC 7.46 (H) 7.35 - 7.45 TDV6-ZGI-UPZ 35 35 - 45 MMHG PO2-ART-POC 90 80 - 100 MMHG Base Ex-ART-POC 1.0 MMOL/L O2 Sat-ART-POC 97.0 95 - 99 % Hroegktqfco-DSA-UBN 25.0 21 - 28 MMOL/L Specimen Performing Laboratory MAIN LAB [address] [place] [address] * ABDOMEN AP ONLY (03/10/2017 7:57 AM) [...] Interface, Radiant Results - 03/10/2017 10:16 AM DRIVER ABDOMEN AP ONLY Indication: gastric tube placement [...] POS Specimen Performing Laboratory Blood MAIN LAB [address] [place], [place] [id number] * TRIGLYCERIDE (03/10/2017 3:25 AM) Component Value Ref Range Triglycerides 84 <150 MG/DL Specimen Performing Laboratory MAIN LAB [address] [place] [address] * IONIZED CALCIUM (03/10/2017 3:25 AM) Component Value Ref Range Ionized Calcium 1.01 1.0 - 1.3 MMOL/L Specimen Performing Laboratory Blood MAIN LAB [address] [place] [address] * PHOSPHORUS (03/10/2017 3:25 AM) Component Value Ref Range Phosphorus 6.1 (H) 2.0 - 4.0 MG/DL Specimen Performing Laboratory Blood MAIN LAB [address] [place] [address] * MAGNESIUM (03/10/2017 3:25 AM) Component Value Ref Range Magnesium 2.2 1.6 - 2.6 mg/dL Specimen Performing Laboratory Blood MAIN LAB [address] [place], [place] [id number] * CBC AND DIFF (03/10/2017 3:25 AM) [...] Performing Laboratory Blood [facility] MAIN LAB [address] [place] [address] * BASIC METABOLIC PANEL (03/10/2017 3:25 AM) [...] Specimen Performing Laboratory Blood MAIN LAB [address] [place] [address] * TYPE & CROSSMATCH (03/10/2017 3:25 AM) Component Value Ref Range Units Ordered 4 Crossmatch Expires 03/13/2017 Record Check 2ND TYPE REQUIRED ABO/RH(D) A POS Antibody Screen NEG Electronic Crossmatch YES Unit Number [id number] Blood Component Type RBC,ADSOL,LEUKO REDUCED Unit Division 0 Status OF Unit DISCARDED Transfusion Status OK TO TRANSFUSE Crossmatch Result COMPATIBLE,ELECTRONIC Unit Number [id number] Blood Component Type RBC,ADSOL,LEUKO REDUCED Unit Division 0 Status OF Unit TRANSFUSED Transfusion Status OK TO TRANSFUSE Crossmatch Result COMPATIBLE,ELECTRONIC Unit Number [id number] Blood Component Type RBC,ADSOL,LEUKO REDUCED Unit Division 0 Status OF Unit REL FROM ALLOC Transfusion Status OK TO TRANSFUSE Crossmatch Result COMPATIBLE,ELECTRONIC Unit Number [id number] Blood Component Type RBC,ADSOL,LEUKO REDUCED Unit Division 0 Status OF Unit REL FROM ALLOC Transfusion Status OK TO TRANSFUSE Crossmatch Result COMPATIBLE,ELECTRONIC Unit Number [id number] Blood Component Type RBC,ADSOL,LEUKO REDUCED Unit Division 0 Status OF Unit TRANSFUSED Transfusion Status OK TO TRANSFUSE Crossmatch Result COMPATIBLE,ELECTRONIC Specimen Performing Laboratory Blood [facility] MAIN LAB [address] [place] [address] * CHEST SINGLE VIEW (03/10/2017 1:47 AM) [...] UGARTE on 03/10/2017 10:52 AM. Dictated by Mani Connell M.D. on 03/10/2017 9:11 AM. Narrative [...] Interface, Radiant Results - 03/10/2017 10:56 AM DRIVER CHEST SINGLE VIEW Indication: Male, 51 years [...] costophrenic angles are not included within the iqccx-yh-vgww. No pneumothorax. Right AC joint arthrosis. Procedure Note Interface, Radiant Results - 03/09/2017 9:32 PM DRIVER CHEST SINGLE VIEW Clinical history: Repositioned endotracheal [...] costophrenic angles are not included within the mlomd-lo-yngz. No pneumothorax. Right AC joint arthrosis. IMPRESSION [...] (PCP) 25 NG/ML Specimen Performing Laboratory Urine [facility] [address] [place] [address] * OPIATES-URINE RANDOM (03/09/2017 6:45 PM) Component Value Ref Range Opiates-Urine NEG NEG-NEG Comment: RESULTS WERE OBTAINED BY IMMUNOASSAY AND ARE PRESUMPTIVE ONLY. POSITIVE INDICATES THE PRESENCE OF SUBSTANCE WITH CHARACTERISTICS SIMILAR TO DRUG-DRUG CLASS OR METABOLITE IN CONC. EQUAL TO OR EXCEEDING VALUES LISTED. OPIATES 200 0 NG/ML Specimen Performing Laboratory Urine [facility] [address] [place] [address] * COCAINE-URINE RANDOM (03/09/2017 6:45 PM) Component Value Ref Range Cocaine-Urine NEG NEG-NEG Comment: RESULTS WERE OBTAINED BY IMMUNOASSAY AND ARE PRESUMPTIVE ONLY. POSITIVE INDICATES THE PRESENCE OF SUBSTANCE WITH CHARACTERISTICS SIMILAR TO DRUG-DRUG CLASS OR METABOLITE IN CONC. EQUAL TO OR EXCEEDING VALUES LISTED. COCAINE 300 NG/ML Specimen Performing Laboratory Urine [facility] [address] [place] [address] * CANNABINOIDS-URINE RANDOM (03/09/2017 6:45 PM) Component Value Ref Range THC NEG NEG-NEG Comment: RESULTS WERE OBTAINED BY IMMUNOASSAY AND ARE PRESUMPTIVE ONLY. POSITIVE INDICATES THE PRESENCE OF SUBSTANCE WITH CHARACTERISTICS SIMILAR TO DRUG-DRUG CLASS OR METABOLITE IN CONC. EQUAL TO OR EXCEEDING VALUES LISTED. CANNABINOIDS 50 NG/ML Specimen Performing Laboratory Urine [facility] [address] [place] [address] * BENZODIAZEPINES-URINE RANDOM (03/09/2017 6:45 PM) Component Value Ref Range Benzodiazepines POS (A) NEG-NEG Comment: RESULTS WERE OBTAINED BY IMMUNOASSAY AND ARE PRESUMPTIVE ONLY. POSITIVE INDICATES THE PRESENCE OF SUBSTANCE WITH CHARACTERISTICS SIMILAR TO DRUG-DRUG CLASS OR METABOLITE IN CONC. EQUAL TO OR EXCEEDING VALUES LISTED. BENZODIAZEPINES 200 NG/ML Specimen Performing Laboratory Urine MAIN LAB [address] [place] [address] * BARBITURATES-URINE RANDOM (03/09/2017 6:45 PM) Component Value Ref Range Barbiturates,Urine NEG NEG-NEG Comment: RESULTS WERE OBTAINED BY IMMUNOASSAY AND ARE PRESUMPTIVE ONLY. POSITIVE INDICATES THE PRESENCE OF SUBSTANCE WITH CHARACTERISTICS SIMILAR TO DRUG-DRUG CLASS OR METABOLITE IN CONC. EQUAL TO OR EXCEEDING VALUES LISTED. BARBITURATES 200 NG/ML Specimen Performing Laboratory Urine MAIN LAB [address] [place] [address] * AMPHETAMINES-URINE RANDOM (03/09/2017 6:45 PM) Component Value Ref Range Amphetamines POS (A) NEG-NEG Comment: RESULTS WERE OBTAINED BY IMMUNOASSAY AND ARE PRESUMPTIVE ONLY. POSITIVE INDICATES THE PRESENCE OF SUBSTANCE WITH CHARACTERISTICS SIMILAR TO DRUG-DRUG CLASS OR METABOLITE IN CONC. EQUAL TO OR EXCEEDING VALUES LISTED. AMPHETAMINES 1000 NG/ML Specimen Performing Laboratory Urine MAIN LAB [address] [place] [address]25 * IONIZED CALCIUM (03/09/2017 6:43 PM) Component Value Ref Range Ionized Calcium 1.10 1.0 - 1.3 MMOL/L Specimen Performing Laboratory Blood [facility] [address] [place] [address]85[address] * BLOOD GASES, ARTERIAL (03/09/2017 6:43 PM) Component Value Ref Range pH-Arterial 7.37 7.35 - 7.45 pCO2-Arterial 50 (H) 35 - 45 MMHG pO2-Arterial 118 (H) 80 - 100 MMHG Base Excess-Arterial 3.3 MMOL/L O2 Sat-Arterial 98.6 95 - 99 % Jfawnwfactk-ARJ-Rnv 27.4 21 - 28 MMOL/L Specimen Performing Laboratory Blood, arterial - Blood MAIN LAB [address] [place] [address] * PHOSPHORUS (03/09/2017 6:43 PM) Component Value Ref Range Phosphorus 6.0 (H) 2.0 - 4.0 MG/DL Specimen Performing Laboratory Blood MAIN LAB [address] [place] [address] * MAGNESIUM (03/09/2017 6:43 PM) Component Value Ref Range Magnesium 2.1 1.6 - 2.6 mg/dL Specimen Performing Laboratory Blood MAIN LAB [address] [place] [address] * COMPREHENSIVE METABOLIC PANEL (03/09/2017 6:43 PM) [...] questions. Specimen Performing Laboratory Blood MAIN LAB [address] [place] [address] * PTT (APTT) (03/09/2017 6:43 PM) Component Value Ref Range APTT 31.9Comment: NOTE NEW REFERENCE RANGES 21.0 - 39.0 SEC Specimen Performing Laboratory Blood MAIN LAB [address] [place], [place] [id number] * PROTIME INR (PT) (03/09/2017 6:43 PM) Component Value Ref Range INR 1.3 (H) 0.8 - 1.2 Specimen Performing Laboratory Blood MAIN LAB [address] [place], [place] [id number] * CBC AND DIFF (03/09/2017 6:43 PM) [...] Performing Laboratory Blood [facility] MAIN LAB [address] [place] [address] * IR ARTERIOGRAM NEURO (03/09/2017 6:35 PM) Specimen Performing Laboratory [facility] RAD RESULTS Addenda Addendum by Lyly Rogel MD on 03/11/2017 10:05 AM Finalized by LYLY ROGEL M.D. on 03/11/2017 8:34 AM. Dictated by LYLY ROGEL M.D. on 03/11/2017 8:22 AM.Addendum: Left Common Femoral Vein Central Line Placement Under fluoroscopic guidance a 4 Ivorian 10 cm central venous line was placed [...] Fentanyl 100 mcg Contrast - 100 cc [id number] Total mGy - 1174 Anesthesia:conscious sedation Consent -The procedure and its risks, benefits, and alternative treatments were explained to the patient's family over the telephone and a witnessed telephone consent was obtained. Clinical History: Mr. Mayfield is a 51 year old male who presented to the [facility] and was found to have [...] establishing arterial access. RCCA Technique A 5 Ivorian 100 cm Vert catheter was advanced over a 150 cm 0.035 Raleigh wire over the aortic arch and into [...] under fluoroscopic and roadmap guidance over the Raleigh wire and images were obtained in biplane [...] therefore, hemostasis was achieved using a 6 Ivorian Angioseal closure device followed by manual pressure for 5 minutes. The patient was transported to the neuro ICU in stable clinical and hemodynamic conditions. Complications - none immediate Procedure Note Interface, Radiant Results - 03/11/2017 10:05 AM DRIVER Cerebral Angiogram Indication - SAH with IPH [...] Fentanyl 100 mcg Contrast - 100 cc [id number] Total mGy - 1174 Anesthesia: conscious sedation Consent - The procedure and its risks, benefits, and alternative treatments were explained to the patient's family over the telephone and a witnessed telephone consent was obtained. Clinical History: Mr. Mayfield is a 51 year old male who presented to the [facility] and was found to have [...] establishing arterial access. RCCA Technique A 5 Ivorian 100 cm Vert catheter was advanced over a 150 cm 0.035 Raleigh wire over the aortic arch and into [...] under fluoroscopic and roadmap guidance over the Raleigh wire and images were obtained in biplane [...] therefore, hemostasis was achieved using a 6 Ivorian Angioseal closure device followed by manual pressure [...] Interface, Radiant Results - 03/09/2017 6:58 PM DRIVER EXAM: CTA HEAD HISTORY: 51-year-old male, subarachnoid [...] Interface, Radiant Results - 03/10/2017 10:56 AM DRIVER CHEST SINGLE VIEW Indication: Male, 51 years [...] AM. in this encounter Visit Diagnoses Diagnosis Brain aneurysm Cerebral aneurysm, nonruptured in this encounter Admitting Diagnoses Diagnosis subarachnoid hemorrhage Subarachnoid bleed (HCC) 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HCC) Subarachnoid hemorrhage Brain aneurysm Cerebral aneurysm, nonruptured 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HCC) Subarachnoid hemorrhage Acquired skull defect Other specified acquired deformity of head in this encounter Administered Medications Medication Order MAR Action Action Date Dose Rate Site bacitracin (BACIIM) 50,000 Units in Given 03/10/2017 500 mL Ringer's 500 mL irrigation bottle 22:06 DRIVER INTRA-PROCEDURE MED, Starting 03/10/17 at 2206, Until 03/11/17 at 0056, Intra-op bacitracin topical ointment Given 03/10/2017 1 Dose INTRA-PROCEDURE MED, Starting Sun 22:47 DRIVER 03/10/17 at 2247, Until 03/11/17 at 0056, Intra-op vancomycin (VANCOCIN) injection Given 03/10/2017 1 g INTRA-PROCEDURE MED, Starting Sun 22:47 DRIVER 03/10/17 at 2247, Until 03/11/17 at 0056, Intra-op in this encounter
--- OUTSIDE RECORDS SUMMARY | 2017-03-26 19:31 | XMS REPORT | Encounter Summary ---
Author Author [facility] Organization [facility] Address Unknown Phone Unavailable Care Team Providers Care Building Service Worker Name Role Phone PCP Unavailable Encounter Details Date Type Department Care Team Description 03/10/2017 Procedure Pass [facility] Operating Room [address] [place] [address] Social History Tobacco Use Types Packs/Day Years Used Date Never Assessed Sex Assigned at Date Recorded Not on file as of this encounter Plan of Treatment Not on fileas of this encounter Visit Diagnoses Not on filein this encounter
--- OUTSIDE RECORDS SUMMARY | 2017-03-26 19:31 | XMS REPORT | Encounter Summary ---
Author Author [facility] Organization [facility] Address Unknown Phone Unavailable Care Team Providers Care Aircraft Structure Mechanic Name Role Phone PCP Unavailable Encounter Details Date Type Department Care Team Description 03/10/2017 Procedure Pass CA7 [address] [place] [address] Social History Tobacco Use Types Packs/Day Years Used Date Never Assessed Sex Assigned at Date Recorded Not on file as of this encounter Plan of Treatment Not on fileas of this encounter Visit Diagnoses Not on filein this encounter
--- OUTSIDE RECORDS SUMMARY | 2017-03-26 19:31 | XMS REPORT | Encounter Summary ---
Author Author [facility] Organization [facility] Address Unknown Phone Unavailable Care Team Providers Care Heading And Priming Tool Setter Name Role Phone PCP Unavailable Encounter Details Date Type Department Care Team Description 03/10/2017 Procedure Pass CA7 [address] [place] [address] Social History Tobacco Use Types Packs/Day Years Used Date Never Assessed Sex Assigned at Date Recorded Not on file as of this encounter Plan of Treatment Not on fileas of this encounter Visit Diagnoses Not on filein this encounter
--- OUTSIDE RECORDS SUMMARY | 2017-03-26 19:36 | XMS REPORT | Encounter Summary ---
Author Author [facility] Organization [facility] Address Unknown Phone Unavailable Care Team Providers Care Care Professional Name Role Phone PCP Unavailable Reason for Visit * Auth/Cert Status Reason Specialty Diagnoses / Referred By Referred To Procedures Contact Contact Diagnoses 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HCC) Brain aneurysm subarachnoid hemorrhage Subarachnoid bleed (HCC) Encounter Details Date Type Department Care Team Description 03/10/2017 Anesthesia [facility] Operating Room Flor Perez MD [address] [address] [place] [address] [place] [address] Social History Tobacco Use Types Packs/Day Years Used Date Never Assessed Sex Assigned at Date Recorded Not on file as of this encounter OR Notes * Anesthesia Postprocedure Evaluation - Binh Orosco MD - 03/10/2017 6:30 PM TOP FRAME FITTER Post-Anesthesia Evaluation Name: Naren Mayfield : 1965 Age: 51 y.o. 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 - Neuromonitoring, aneurysm clips, microscope, ICG, radiolucent [place] Surgeon: Surgeon(s): MD Edgar Maguire MD Post-Anesthesia Vitals BP: 127/89 (03/09 2030) Temp: 37 C (98.6 F) (03/10 0400) Pulse: 64 (03/10 0815) Respirations: 20 PER MINUTE (03/10 0442) SpO2: 97 % (03/10 0815) O2 Delivery: Endotracheal Tube (Oral) (03/10 07) SpO2 Pulse: 70 (03/10 800) Post Anesthesia Evaluation Note Evaluation location: ICU Patient participation: patient intubated, unable to assess; expectation of recovery by ICU physician Level of consciousness: intubated & sedated Hydration: normovolemia Temperature: 36.0C - 38.4C Perioperative Events Postoperative Status Cardiovascular status: hemodynamically stable Respiratory status: ETT Follow-up needed: none Additional comments: H/d [facility]. Present for transport MD Ana Luisa, MD David, MARIETTA Gann, Solomon, RT. Gtt's: Porpofol 50 mcg/kg/min Intra-Op: I's--> Zully: 2400 Colloid: Albumin 500ml, PRBC's 1u O's--> EBL 350, UO 30 Perioperative Events Perioperative Event: No Emergency Case Activation: No * Anesthesia Preprocedure Evaluation - Gabriel Jarrett MD - 03/10/2017 1:16 AM TOP FRAME FITTER Formatting of this note may be different from the original. Anesthesia Pre-Procedure Evaluation Name: Naren Mayfield : 1965 Age: 51 y.o. 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 - Neuromonitoring, aneurysm clips, microscope, ICG, Possible intraoperative angiogram, radiolucent [place] Physical Assessment Vital Signs (last filed in past 24 hours): BP: 127/89 (03/09 2030) ABP: 122/65 (03/107) ART MAP (Calculated) mm H mm Hg (03/09 1930) Temp: 36.9 C (98.4 F) (03/09 1845) Pulse: 74 (03/10 17) Respirations: 20 PER MINUTE (03/09 2200) SpO2: 93 % (03/10 17) O2 Delivery: Endotracheal Tube (Oral) (03/09 1930) Height: 172.7 cm (68") (03/09 1525) Weight: 115.1 kg (253 lb 12 oz) (03/09 1525) Patient History No Known Allergies Current Medications [...] 03/09/2017 SUZI 7 03/09/2017 AMC 0.50 03/09/2017 EOSA 1 03/09/2017 ABC 0.00 03/09/2017 MCV 92.1 03/09/2017 MCH 30.2 03/09/2017 MCHC 32.8 03/09/2017 MPV 8.5 03/09/2017 RDW 16.1 03/09/2017 General Chemistry: Lab Results Component Value Date NA 132 03/09/2017 K 3.5 03/09/2017 CL 95 03/09/2017 CO2 29 03/09/2017 GAP 8 03/09/2017 BUN 36 03/09/2017 CR 6.24 03/09/2017 GLU 83 03/09/2017 CA 8.4 03/09/2017 ALBUMIN 3.7 03/09/2017 OBSCA 1.10 03/09/2017 MG 2.1 03/09/2017 TOTBILI 0.7 03/09/2017 PO4 6.0 03/09/2017 Coagulation: Lab Results Component Value Date PTT 31.9 03/09/2017 INR 1.3 03/09/2017 Anesthesia Plan ASA score: 4 Plan: general NPO status: acceptable in this encounter Miscellaneous Notes * Addendum Note - Sandra Gann CRNA - 03/14/2017 11:01 AM TOP FRAME FITTER Formatting of this note may be different from the original. Addendum created 03/14/17 1101 by Sandra Gann CRNA Anesthesia Intra Meds edited in this encounter Plan of Treatment Not on fileas of this encounter Visit Diagnoses Not on filein this encounter Administered Medications Medication Order MAR Action Action Date Dose Rate Site albumin 5% infusion (500 mL) Given - New 03/10/2017 INTRA-PROCEDURE MED(CONT), Starting Sun Bag 12:06 TOP FRAME FITTER 03/10/17 at 1206, Until Discontinued, Anesthesia Intra-op ceFAZolin (ANCEF) injection Given 03/10/2017 2 g INTRA-PROCEDURE MED, Starting Sun 09:11 TOP FRAME FITTER 03/10/17 at 0911, Until Discontinued, Anesthesia Intra-op Given 03/10/2017 2 g 12:45 TOP FRAME FITTER DELIVER & TRANSFUSE RED BLOOD CELLS Given - New 03/10/2017 (INTRAOP ONLY) Bag 10:28 TOP FRAME FITTER STAT, On 03/10/17 at 1028, Lab Results Component Value Date HGB 9.0 (L) 03/10/2017 dexamethasone (DECADRON) injection Given 03/10/2017 4 mg Intravenous, INTRA-PROCEDURE MED, 12:13 TOP FRAME FITTER Starting 03/10/17 at 1213, Until Discontinued, Nausea/Vomiting Injectable, Anesthesia Intra-op electrolyte-A (PLASMA-LYTE A PH 7.4) Given - New 03/10/2017 injection Bag 14:25 TOP FRAME FITTER INTRA-PROCEDURE MED(CONT), Starting 03/10/17 at 1425, Until Discontinued, Anesthesia Intra-op fentaNYL citrate PF (SUBLIMAZE) Given 03/10/2017 100 mcg injection 17:55 TOP FRAME FITTER INTRA-PROCEDURE MED, Starting 03/10/17 at 1755, Until Discontinued, Pain Injectable, Anesthesia Intra-op glycopyrrolate (ROBINUL) injection Given 03/10/2017 0.2 mg INTRA-PROCEDURE MED, Starting Sun 11:06 TOP FRAME FITTER 03/10/17 at 1106, Until Discontinued, Secretions, Anesthesia Intra-op indocyanine green (IC GREEN) injection Given 03/10/2017 57.5 mg INTRA-PROCEDURE MED, Starting Sun 16:03 TOP FRAME FITTER 03/10/17 at 1603, Until Discontinued, Anesthesia Intra-op levETIRAcetam (KEPPRA) 500 mg in sodium Given - New 03/10/2017 500 mg chloride 0.9% (NS) 100 mL IVPB Bag 09:16 TOP FRAME FITTER 500 mg, Intravenous, 100 mL, Administer over 15 Minutes, INTRA-PROCEDURE MED(CONT), Starting 03/10/17 at 0916, Until Discontinued, Anesthesia Intra-op niCARdipine (cardENE) 20 mg/NS 200 mL Given - New 03/10/2017 2.5 mg/hr 25 mL/hr infusion (std conc)(premade) Bag 08:30 TOP FRAME FITTER 200 mL, 20 mg, INTRA-PROCEDURE MED(CONT), Starting [place] 03/10/17 at 0830, Until Discontinued, Anesthesia Intra-op Dose/Rate Change 03/10/2017 1.25 mg/hr 12.5 mL/hr 09:30 TOP FRAME FITTER phenylephrine (ARLINE-SYNEPHRINE) 10 mg in Dose/Rate 03/10/2017 1.1 189.9 mL/hr sodium chloride 0.9% (NS) 250 mL IV drip Change 15:51 TOP FRAME FITTER mcg/kg/min (std conc) 10 mg 250 mL, INTRA-PROCEDURE MED(CONT), Starting [place] 03/10/17 at 0951, Until Discontinued, Anesthesia Intra-op Dose/Rate Change 03/10/2017 0.8 138.1 mL/hr 15:52 TOP FRAME FITTER mcg/kg/min Dose/Rate Change 03/10/2017 0.6 103.6 mL/hr 15:55 TOP FRAME FITTER mcg/kg/min phenylephrine in NS Injection Given 03/10/2017 100 mcg Intravenous, INTRA-PROCEDURE MED, 09:54 TOP FRAME FITTER Starting [place] 03/10/17 at 0954, Until Discontinued, Symptomatic Hypotension, Anesthesia Intra-op Given 03/10/2017 50 mcg 14:11 TOP FRAME FITTER propofol (DIPRIVAN) infusion 1,000 mg Dose/Rate 03/10/2017 125 86.3 mL/ hr 1,000 mg Change 15:44 TOP FRAME FITTER mcg/kg/min 100 mL, INTRA-PROCEDURE MED(CONT), Starting [place] 03/10/17 at 0846, Until Discontinued, Anesthesia Intra-op Dose/Rate Change 03/10/2017 70 48.3 mL/hr 15:50 TOP FRAME FITTER mcg/kg/min Dose/Rate Change 03/10/2017 50 34.5 mL/hr 16:01 TOP FRAME FITTER mcg/kg/min propofol (DIPRIVAN) injection Given 03/10/2017 50 mg INTRA-PROCEDURE MED, Starting [place] 08:30 TOP FRAME FITTER 03/10/17 at 0830, Until Discontinued, Anesthesia Intra-op Given 03/10/2017 50 mg 08:55 TOP FRAME FITTER remifentanil (ULTIVA) 1 mg/3 mL 1,000 Given - New 03/10/2017 0.05 6.9 mL/hr mcg in sodium chloride 0.9% (NS) 20 mL Bag 09:23 TOP FRAME FITTER mcg/kg/min Injection Intravenous, INTRA-PROCEDURE MED(CONT), Starting [place] 03/10/17 at 0923, Until Discontinued, Anesthesia Intra-op rocuronium (ZEMURON) injection Given 03/10/2017 10 mg Intravenous, INTRA-PROCEDURE MED, 08:37 TOP FRAME FITTER Starting [place] 03/10/17 at 0837, Until Discontinued, Anesthesia Intra-op sodium chloride 0.9 % infusion Given - New 03/10/2017 INTRA-PROCEDURE MED(CONT), Starting [place] Bag 08:45 TOP FRAME FITTER 03/10/17 at 0845, Until Discontinued, Anesthesia Intra-op Given - New Bag 03/10/2017 11:05 TOP FRAME FITTER in this encounter
--- OUTSIDE RECORDS SUMMARY | 2017-03-26 19:36 | XMS REPORT | Encounter Summary ---
Author Author [facility] Organization [facility] Address Unknown Phone Unavailable Care Team Providers Care Rail Car Unloader Name Role Phone PCP Unavailable Encounter Details Date Type Department Care Team Description 03/09/2017 Anesthesia [facility] Juan Carlos Bunch MD [facility] Radiology [address] [facility] [address] [place] [address] [place] [address] [phone] Social History Tobacco Use Types Packs/Day Years Used Date Never Assessed Sex Assigned at Date Recorded Not on file as of this encounter Plan of Treatment Not on fileas of this encounter Visit Diagnoses Not on filein this encounter
--- OUTSIDE RECORDS SUMMARY | 2017-03-26 19:36 | XMS REPORT | Encounter Summary ---
Author Author [facility] Organization [facility] Address Unknown Phone Unavailable Care Team Providers Care Wind Energy Mechanic Name Role Phone PCP Unavailable Encounter Details Date Type Department Care Team Description 03/09/2017 Prep for Case ADMITTING Faraz Hernandez MD [address] [facility]. [address] [facility] [place] [address] [address] [place] [address] [phone] Social History Tobacco Use Types Packs/Day Years Used Date Never Assessed Sex Assigned at Date Recorded Not on file as of this encounter Plan of Treatment Not on fileas of this encounter Visit Diagnoses Not on filein this encounter
--- OUTSIDE RECORDS SUMMARY | 2017-03-26 19:36 | XMS REPORT | Encounter Summary ---
Author Author [facility] Organization [facility] Address Unknown Phone Unavailable Care Team Providers Care Bilingual Sales Consultant Name Role Phone PCP Unavailable Reason for Visit * Auth/Cert Status Reason Specialty Diagnoses / Referred By Referred To Procedures Contact Contact Diagnoses 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HCC) Brain aneurysm subarachnoid hemorrhage Subarachnoid bleed (HCC) Encounter Details Date Type Department Care Team Description 03/10/2017 Surgery [place] Operating Room Edgar Bee MD Rt pterional craniotomy [address] [place] [address] MS 3021 aneurysm [phone] [place] [address] [phone] Social History Tobacco Use Types Packs/Day Years Used Date Current Every Day Smoker 1 30 Sex Assigned at Date Recorded Not on file as of this encounter Last Filed Vital Signs Vital Sign Reading Time Taken Blood Pressure 192/83 03/26/2017 1:47 PM CRM MARKETING EXECUTIVE Pulse 72 03/26/2017 1:47 PM CRM MARKETING EXECUTIVE Temperature 36.8 C (98.3 F) 03/26/2017 1:47 PM CRM MARKETING EXECUTIVE Respiratory Rate - - Oxygen Saturation 95% 03/26/2017 1:47 PM CRM MARKETING EXECUTIVE Inhaled Oxygen - - Concentration Weight 105.9 kg (233 lb 7.5 oz) 03/26/2017 12:47 PM CRM MARKETING EXECUTIVE Height 172.7 cm (5' 8") 03/11/2017 3:28 PM CRM MARKETING EXECUTIVE Body Mass Index 35.5 03/26/2017 12:47 PM CRM MARKETING EXECUTIVE in this encounter Functional Status Functional Status [...] Amairani Miller, RN - 03/26/2017 3:49 PM CRM MARKETING EXECUTIVE Naren Mayfield discharged on 03/26/2017. Discharge instructions reviewed with nurse at rehab facility. Valuables returned: Yes Personal Items / Valuables: Valuables/Belongings home with patient. Home medications: None Functional assessment at discharge complete: Yes PIV removed prior to discharge. Report called to RN at rehab facility. All questions addressed and answered. * Melisa Emery APRN - 03/26/2017 12:43 PM CRM MARKETING EXECUTIVE Formatting of this note may be different [...] (HCC) Added automatically from request for surgery [id number] IVH (intraventricular hemorrhage) (HCC) Intraparenchymal hematoma of brain (HCC) Subarachnoid bleed (HCC) Acquired skull defect Added automatically from request for surgery [id number] SBP goal - normotensive Nimotop SQH Keppra [...] assessed for need for restraints. Please call [phone] with questions. Melisa Emery APRN * Eddie Oconnor MBBS - 03/26/2017 10:43 AM CRM MARKETING EXECUTIVE Formatting of this note may be different [...] renal standpoint. CIPRIANO De La Rosa Pager [phone] Subjective Naren Mayfield is a 51 y.o. [...] 20,000 Units/ sodium bicarbonate 650 mg(#) PRN (Scrum Master from Rx), sodium chloride 0.9% (NS) IP [...] Carie Kinney, OT - 03/26/2017 10:00 AM CRM MARKETING EXECUTIVE OCCUPATIONAL THERAPY NO TREATMENT NOTE Patient off unit to dialysis at this time and unavailable for occupational therapy. OT will continue to follow. Therapist: ROME Portillo/Omar [id number] Date: 03/26/2017 * Miguel Angel Godoy, PT - 03/25/2017 10:57 AM CRM MARKETING EXECUTIVE PHYSICAL THERAPY PROGRESS NOTE MOBILITY: Mobility Progressive [...] * Sharyn Rutledge - 03/25/2017 10:54 AM CRM MARKETING EXECUTIVE Formatting of this note may be different from the original. OCCUPATIONAL THERAPY PROGRESS NOTE Patient Name: Naren Mayfield Room/Bed: [place] [address] Admitting Diagnosis: subarachnoid hemorrhage Subarachnoid bleed (HCC) [...] (t-scale) score: 37.26 CMS 0-100% Score: 50.11 [facility] G Code Modifier: CK Plan Treatment Interventions: [...] Eddie Oconnor MBBS - 03/25/2017 10:17 AM CRM MARKETING EXECUTIVE Formatting of this note may be different [...] with dialysis. CIPRIANO De La Rosa Pager [phone] Subjective Naren Mayfield is a 51 y.o. [...] Units/ sodium bicarbonate 650 mg(#) PRN ( Scrum Master from Rx), sodium chloride 0.9% (NS) IP [...] (03/25/171840) Intake/Output Summary (Last 24 hours) at 03/25/17 2017 Last data filed at 03/25/17 1453 Gross [...] Dolores Simmons APRN - 03/25/2017 8:46 AM CRM MARKETING EXECUTIVE Formatting of this note may be different [...] (HCC) Added automatically from request for surgery [id number] IVH (intraventricular hemorrhage) (HCC) Intraparenchymal hematoma of brain (HCC) Subarachnoid bleed (HCC) Acquired skull defect Added automatically from request for surgery [id number] SBP goal - normotensive Nimotop SQH Keppra (renal dosing) PT/OT - inpatient rehab - plan for [place] pending cranioplasty-if can be placed will wait to complete cranioplasty CT head 03/23 reviewed Prophylaxis: A)GI: PPI B) Lines: No C) Urinary Catheter: No D) Antibiotic Usage: No E) VTE: Pharmacological prophylaxis; SQ Heparin and Mechanical prophylaxis; Sequential compression device F) Restraints: Patient assessed for need for restraints. Please call [phone] with questions. Maria Dolores Simmons APRN [id number] Ross - 03/24/2017 4:28 PM CRM MARKETING EXECUTIVE ORTHOTICS/PROSTHETICS Follow-up Note: NAME: Naren Mayfield ROOM: [place] [address] DIAGNOSIS: brain bleed DATE OF INITIAL CONSULT: [...] Thank you Orthotics can be reached at [phone]. Jay Mortensen * Montana Moore MD - 03/24/2017 9:00 AM CRM MARKETING EXECUTIVE Formatting of this note may be different [...] (HCC) Added automatically from request for surgery [id number] IVH (intraventricular hemorrhage) (HCC) Intraparenchymal hematoma of brain (HCC) Subarachnoid bleed (HCC) SBP goal - normotensive Nimotop SQH Keppra (renal dosing) PT/OT - inpatient rehab - plan for [place] pending cranioplasty Corpak out, continue to monitor [...] assessed for need for restraints. Please call [phone] with questions. Saeid Nix MD ATTESTATION call center rn neurosurgery attending coverage. Patient seen and reviewed with resident team. Present management. Staff name: Montana Moore MD Date: 03/24/2017 * Jimena Rogel, RT - 03/24/2017 8:53 AM CRM MARKETING EXECUTIVE Formatting of this note may be different [...] Date: 03/24/2017 Rubin AC=Airway clearance AM=Aerosolized medication BA=[place] aerosol DB&C=Deep breathe & cough FEV1=Forced expiratory volume in first second) IC=Inspiratory capacity LE=Lung expansion MDI=Metered dose inhaler Neb=Nebulizer O2=Oxygen Oxim=Oximetry PEFR=Peak expiratory flow rate MARINE PLUMBER=Rapid Response Team * Yesenia Mendoza RN - 03/24/2017 8:25 AM CRM MARKETING EXECUTIVE Patient up to chair but refusing to wear helmet because he states it is too small. This RN contacted [employer] about getting a larger helmet. * Consuelo Cox RN - 03/24/2017 7:11 AM CRM MARKETING EXECUTIVE Neuro surgery paged. Pt removed Corpak last night, day RN in need of morning medications changed to PO medications. MD Nix placed the orders to change medications. Will continue to monitor. * Consuelo Cox RN - 03/24/2017 1:40 AM CRM MARKETING EXECUTIVE Neuro surg paged. Pt's corpak came out after requesting tylenol, RN told MD that pt is tolerating nector thick liquids well. MD Nix notified and told RN told leave the corpak out and change the tylenol order to PO. * Yesenia Mendoza RN - 03/23/2017 6:47 PM CRM MARKETING EXECUTIVE Patient arrived on unit via bed accompanied by RN. Patient transferred to the bed with assistance. Assessment completed, refer to flowsheet for details. Orders released, reviewed, and implemented as appropriate. Oriented to surroundings, call light within reach. Plan of care reviewed. Will continue to monitor and assess. * Ryan Villagran MD - 03/23/2017 3:25 PM CRM MARKETING EXECUTIVE Formatting of this note may be different [...] per neuro team Ryan Villagran MD Pager [phone] Subjective Naren Mayfield is a 51 y.o. [...] 000 Units/ sodium bicarbonate 650 mg(#) PRN (Scrum Master from Rx), sodium chloride 0.9% (NS) IP [...] Montana Moore MD - 03/23/2017 2:54 PM CRM MARKETING EXECUTIVE Formatting of this note may be different [...] (HCC) Added automatically from request for surgery [id number] IVH (intraventricular hemorrhage) (HCC) Intraparenchymal hematoma of brain (HCC) Subarachnoid bleed (HCC) Continue monitoring for seizure activity - renal keppra dosing SBP - normotensive Nimotop SQH Keppra PT/OT - inpatient rehab - plan for [facility] when able Pending Corpak removal based on intake Possible cranioplasty Saturday Prophylaxis: A)GI: PPI B) Lines: Yes; Central Line; Indication: Hemodialysis/Plasmapheresis; Type: Implanted subcutaneous access device C) Urinary Catheter: No D) Antibiotic Usage: No E) VTE: Pharmacological prophylaxis; SQ Heparin and Mechanical prophylaxis; Sequential compression device F) Restraints: Patient assessed for need for restraints. Miguel Angel Jaime MD [phone] Please call [phone] with any questions. ATTESTATION call center rn neurosurgery attending coverage. Patient seen and reviewed with resident team. Present management. Staff name: Montana Moore MD Date: 03/23/2017 * Matheus López, - 03/23/2017 8:20 AM CRM MARKETING EXECUTIVE Formatting of this note may be different [...] Cell Crisis OR Anemia (<10) OR Acute ID (02 & oxim) Patient Assessment * Respiratory [...] Date: 03/23/2017 Rubin AC=Airway clearance AM=Aerosolized medication BA=[place] aerosol DB&C=Deep breathe & cough FEV1=Forced expiratory volume in first second) IC=Inspiratory capacity LE=Lung expansion MDI=Metered dose inhaler Neb=Nebulizer O2=Oxygen Oxim=Oximetry PEFR=Peak expiratory flow rate MARINE PLUMBER=Rapid Response Team * Portia Johnson, RD - 03/22/2017 4:01 PM CRM MARKETING EXECUTIVE CLINICAL NUTRITION Clinical Nutrition Follow-Up Summary Nutrition Assessment of Patient: Malnutrition Assessment: Does not meet criteria Current Oral Intake: Inadequate (new start of pureed today) Estimated Calorie Needs: 7518-1344 (30-32 kcal/kg desired wt) Estimated Protein Needs: 110-135 (1.5-1.8 g /kg desired wt) Oral Diet Order: Pureed, [place] Thick Liquids Oral Supplement: Nutrisource Fiber, TID, [...] injuries noted. BM 03/22 (rectal tube out). PRESENTATION MANAGER evaluated pt safe for pureed diet with nectar thick liquids today and EN feeds discontinued. Primary team added 3 packs Nutrisource fiber ( 1 per each meal). FSBS 128-219 with correction insulin on board. PRESENTATION MANAGER continuing to follow pt for oral intake safety and options. Recommendation: Continue to encourage po inake on pureed diet with nectar thick fluids. Add CIB in nectar thick milk daily and PRN if tolerated with renal/diabetes status. Intervention / Plan: monitor po intake, wt trends, labs, meds, GI status monitor PRESENTATION MANAGER findings and recs Nutrition Diagnosis: Nutrition Diagnosis: Altered GI function Etiology: swallowing deficits s/p SAH/extubation Signs & Symptoms: pureed diet with nectar thick fluids per PRESENTATION MANAGER recs Goals: EN tolerated and meeting >85% of nutritional needs Time Frame: Throughout Stay Status: Partially met;no longer appropriate Patient to consume >50% of meals Time Frame: Within [address] * Lilian Garcia - 03/22/2017 1:57 PM CRM MARKETING EXECUTIVE SPEECH-LANGUAGE PATHOLOGY COGNITIVE ASSESSMENT // SWALLOW TREATMENT [...] hour). Please follow precautions posted at [facility]. Will continue to follow for ongoing dysphagia [...] safety problems given min cues. Therapist: Omar Ames/ISMAEL-PRESENTATION MANAGER [phone] Date: 03/22/2017 * Elaine Nicholson APRN - 03/22/2017 12:18 PM CRM MARKETING EXECUTIVE Pt hemodynamically stable and neuro exam unchanged. Discussed with primary team and NEICU Team to sign off at this time. Please page [phone] with any questions. Thank you for this consult. * Sharyn Rutledge - 03/22/2017 11:32 AM CRM MARKETING EXECUTIVE Formatting of this note may be different from the original. OCCUPATIONAL THERAPY PROGRESS NOTE Patient Name: Naren Mayfield Room/Bed: [facility]/ Admitting Diagnosis: subarachnoid hemorrhage Subarachnoid bleed (HCC) [...] Cooperative to Participate Persons Present: (OT student; director of rehabilitative services) ADL's Where Assessed: In Bathroom Eating Assist: [...] Carole Sloan, PT - 03/22/2017 10:09 AM CRM MARKETING EXECUTIVE PHYSICAL THERAPY PROGRESS NOTE MOBILITY: Mobility Progressive [...] / Cognitive Status: Cooperative;Alert;Follows Commands Persons Present: Sociology Research Assistant Pain: Patient has no complaint of pain [...] Jeancarlos Menendez MD - 03/22/2017 7:41 AM CRM MARKETING EXECUTIVE Formatting of this note may be different from the original. Neuroscience Critical Care Progress Note Naren Mayfield Admission Date: 03/09/2017 LOS: 13 days ASSESSMENT/PLAN Patient Active Problem List Diagnosis Date Noted IVH (intraventricular hemorrhage) (HCC) 03/09/2017 Intraparenchymal hematoma of brain (HCC) 03/09/2017 Subarachnoid bleed (HCC) 03/09/2017 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HCC) 03/09/2017 Added automatically from request for surgery [id number] Naren Mayfieldis a 51 y.o.malewith PMH of [...] 130-180 to help with vasospasms - Nimodipine [id number] - Continue Keppra 1500mg daily after dialysis - TCDs Daily - Neuro-ICU monitoring, neurochecks q 2 hrs Sedation/Pain Management: Yes -ICU delirium - Stop Precedex - Fentanyl PRN - Seroquel BID 50mg - Haldol prn - Melatonin 3mg Qhs - Delirium protocol Cardiac: HTN, HLD - SBP goal: 130-180 - MAP goal > 65 - EKG with SR, LVH - 03/11 Restart IRON WORKER minoxidil and metoprolol BID - 03/11 ECHO [...] dialysis - Renal consult - dialysis 03/21 2L [...] Potassium goal >4.0 mEq/L Prophylaxis Review: A) GI:[id number] B) Lines:2 peripheral lines and Right arterial [...] 20,000 Units/ sodium bicarbonate 650 mg(#) PRN (Scrum Master from Rx), sodium chloride 0.9% (NS) IP [...] 0350) POC Glucose (Download): (!) 155 (03/22/17 4573) Radiology and Other Diagnostic Procedures Review: Reviewed and discussed above. Jeancarlos Menendez MD Date: 03/22/[phone] Associated attestation - Derrell Bowers MD - 03/22/2017 2:30 PM CRM MARKETING EXECUTIVE Formatting of this note may be different [...] Adi Gonzalez, RT - 03/21/2017 10:39 PM CRM MARKETING EXECUTIVE RN placed Mr. Mayfield on 2 Lpm Nasal cannula to keep saturation above 92%. * Jarett Sultana, RN - 03/21/2017 8:30 PM CRM MARKETING EXECUTIVE Neurosurgery notified of pt guarding abdomen where bone flap is, his right lower quadrant of the abdomen. Neurosurgery at bedside to assess. Pt states its tender. Orders to monitor redness and site. Will continue to monitor. * Patti Mcclure - 03/21/2017 4:12 PM CRM MARKETING EXECUTIVE SPEECH-LANGUAGE PATHOLOGY [facility]AL[facility] SUMMARY Videoswallow Summary*: Videoswallow completed [...] hour ). Please follow precautions posted at [facility]. 2:Will continue to follow for ongoing dysphagia [...] on pharyngeal structures. Swallow Recommendations* PO: Pureed, [place] Thick Liquids Swallow Strategies: Supervision During Meals [...] Fed Self Thin Liquid: 1 Tsp, Cup [place] Thick Liquid: 1 Tsp, Cup Other Consistencies: [...] cognitive evaluation with moderate cues. Therapist: Patti SIEGELL/PRESENTATION MANAGER Pager:[phone] Office:[phone] Date: 03/21/2017 * Consuelo Ayala, RN - 03/21/2017 3:30 PM CRM MARKETING EXECUTIVE Patient transported to radiology for a video swallow with this RN and transport. Patient tolerated transport and procedure without any complications. * Sharyn Rutledge - 03/21/2017 1:44 PM CRM MARKETING EXECUTIVE OCCUPATIONAL THERAPY PROGRESS NOTE Patient Name: Naren Mayfield Room/Bed: FS0325/ Admitting Diagnosis: subarachnoid hemorrhage Subarachnoid bleed (HCC) [...] Carole Sloan, PT - 03/21/2017 1:44 PM CRM MARKETING EXECUTIVE PHYSICAL THERAPY PROGRESS NOTE MOBILITY: Mobility Progressive [...] Tracie Mitchell MD - 03/21/2017 1:15 PM CRM MARKETING EXECUTIVE Formatting of this note may be different [...] far Will maintain MAP>90 per neuro team Trcaie Mitchell MD Pager [phone] Subjective Naren Mayfield is a 51 y.o. [...] 20,000 Units/ sodium bicarbonate 650 mg(#) PRN (Scrum Master from Rx) , sodium chloride 0.9% (NS) [...] PO2ART 85 65* Tracie Mitchell MD Pager [phone] * Jeancarlos Menendez MD - 03/21/2017 7:22 AM CRM MARKETING EXECUTIVE Formatting of this note may be different from the original. Neuroscience Critical Care Progress Note Naren Mayfield Admission Date: 03/09/2017 LOS: 12 days ASSESSMENT/PLAN Patient Active Problem List Diagnosis Date Noted IVH (intraventricular hemorrhage) (HCC) 03/09/2017 Intraparenchymal hematoma of brain (HCC) 03/09/2017 Subarachnoid bleed (HCC) 03/09/2017 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HCC) 03/09/2017 Added automatically from request for surgery [id number] Naren Mayfieldis a 51 y.o.malewith PMH of [...] 130-200 to help with vasospasms - Nimodipine [id number] - Continue Keppra 1500mg daily after dialysis - TCDs Daily - Neuro-ICU monitoring, neurochecks q 2 hrs Sedation/Pain Management: Yes -ICU delirium - Stop Precedex - Fentanyl PRN - Seroquel BID 50mg - Haldol prn - Melatonin 3mg Qhs - Delirium protocol Cardiac: HTN, HLD - SBP goal: 130-180 - MAP goal > 65 - EKG with SR, LVH - 03/11 Restart IRON WORKER minoxidil and metoprolol BID - 03/11 ECHO [...] Potassium goal >4.0 mEq/L Prophylaxis Review: A) GI:U6Gbfngqm B) Lines:2 peripheral lines and Right arterial [...] 20,000 Units/ sodium bicarbonate 650 mg(#) PRN (Scrum Master from Rx), sodium chloride 0.9% (NS) IP [...] discussed above. Jeancarlos Menendez MD Date: 03/21/[phone] Associated attestation - Derrell Bowers MD - 03/21/2017 12:29 PM CRM MARKETING EXECUTIVE Formatting of this note may be different from the original. ATTESTATION I have seen, personally fully evaluated, and discussed patient with Dr Menendez [facility]. I agree with the objective findings [...] * Sharyn Rutledge - 03/20/2017 1:43 PM CRM MARKETING EXECUTIVE OCCUPATIONAL THERAPY PROGRESS NOTE Patient Name: Naren Mayfield Room/Bed: WA1947/01 Admitting Diagnosis: subarachnoid hemorrhage Subarachnoid bleed (HCC) [...] Carole Sloan, PT - 03/20/2017 1:42 PM CRM MARKETING EXECUTIVE PHYSICAL THERAPY PROGRESS NOTE MOBILITY: Mobility Progressive [...] Jeancarlos Menendez MD - 03/20/2017 11:24 AM CRM MARKETING EXECUTIVE Formatting of this note may be different from the original. Neuroscience Critical Care Progress Note Naren Mayfield Admission Date: 03/09/2017 LOS: 11 days ASSESSMENT/PLAN Patient Active Problem List Diagnosis Date Noted IVH (intraventricular hemorrhage) ([facility]) 03/09/2017 Intraparenchymal hematoma of brain ([facility]) 03/09/2017 Subarachnoid bleed ([facility]) 03/09/2017 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[facility]) 03/09/2017 Added automatically from request for surgery [id number] Naren Mayfieldis a 51 y.o.malewith PMH of [...] 130-200 to help with vasospasms - Nimodipine [id number] - Continue Keppra 1500mg daily after dialysis - TCDs Daily - Neuro-ICU monitoring, neurochecks q 2 hrs Sedation/Pain Management: Yes -ICU delirium - Stop Precedex - Fentanyl PRN - Seroquel BID 50mg - Haldol prn - Delirium protocol Cardiac: HTN, HLD - SBP goal: 130-180 - MAP goal > 65 - EKG with SR, LVH - 03/11 Restart IRON WORKER minoxidil and metoprolol BID - 03/11 ECHO [...] Potassium goal >4.0 mEq/L Prophylaxis Review: A) GI:C2Ijizljx B) Lines:2 peripheral lines and Right arterial [...] 20,000 Units/ sodium bicarbonate 650 mg(#) PRN (Scrum Master from Rx) Critical Care Vitals: ICP Monitoring: [...] (Last 24 hours): Glucose: (!) 132 (03/20/17 9608) POC Glucose (Download): (!) 150 (03/20/17 6922) Radiology and Other Diagnostic Procedures Review: Reviewed and discussed above. Jeancarlos Menendez MD Date: 03/20/[phone] Associated attestation - Derrell Bowers MD - 03/20/2017 11:49 AM CRM MARKETING EXECUTIVE Formatting of this note may be different from the original. ATTESTATION I have seen, personally fully evaluated, and discussed patient with Dr Menendez and the [facility] team. I agree with the objective findings and agree with the plan of care as documented by the resident with the exceptions noted. The patient is critically ill with SAH s/p clipping, EDH s/p evacuation, ESRD c/b metabolic acidosis, pleural effusion and hypoxemia. Restart amlodipine 10 mg daily (IRON WORKER med), may need addition of clonidine to [...] * Patti Mcclure - 03/20/2017 10:00 AM CRM MARKETING EXECUTIVE SPEECH-LANGUAGE PATHOLOGY DAILY TREATMENT NOTE Patient seen [...] per hour). Please follow precautions posted at [facility]. Continue temporary alternate source of nutrition. 2:Will [...] 5x per week. Therapist: Patti Nava M.S., CCC-L/PRESENTATION MANAGER Pager:[phone] Office:[phone] Date: 03/20/2017 * Mel Ortiz - 03/19/2017 2:50 PM CRM MARKETING EXECUTIVE ORTHOTICS/PROSTHETICS Consult Note: NAME: Naren Mayfield ADMISSION DATE: admitted to hospital : 1965 AGE: 51 y.o. ROOM: [place] [address] DOCTOR: Date of Order: 03/19 Date of [...] Tracie Mitchell MD - 03/19/2017 1:28 PM CRM MARKETING EXECUTIVE Formatting of this note may be different [...] per neuro team Tracie Mitchell MD Pager [phone] Subjective Naren Mayfield is a 51 y.o. [...] 20,000 Units/ sodium bicarbonate 650 mg(#) PRN (Scrum Master from Rx) Physical Exam Vital Signs: Last [...] Recent Labs 03/17/17 0413 03/18/17 0340 03/19/17 041 NA 137 138 136* K 4.9 4.2 [...] PO2ART 96 108* Tracie Mitchell MD Pager [phone] * Portia Johnson, RD - 03/19/2017 11:50 AM CRM MARKETING EXECUTIVE CLINICAL NUTRITION Clinical Nutrition Follow-Up Summary Nutrition Assessment of Patient: Malnutrition Assessment: Does not meet criteria Current Oral Intake: NPO Estimated Calorie Needs: 3487-7828 (30-32 kcal/kg desired wt) Estimated Protein Needs: 111-133g (1.5-1.8g/kg desired wt 74kf) Oral Diet Order: NPO Intake (calories) Daily Average : 1786 kilocalories (3 day EN/Prosource ave 03/16; 80% goal) Intake (protein) Daily Average : 118 grams (3 day EN/Prosource ave ; within goal range) Current EN Order: Novasource Renal @ 40ml/hr with 30ml water bolus [id number] and 3 packs Prosource per day. This [...] with low dose correction insulin on board. PRESENTATION MANAGER to see pt for oral intake safety [...] carb diabetic diet order with texture per PRESENTATION MANAGER. Intervention / Plan: re-eval of kcal goals with HD Monitor EN tolerance/provision monitor wt trends, labs, meds, GI status monitor for swallow eval and ability to advance diet per PRESENTATION MANAGER Nutrition Diagnosis: Nutrition Diagnosis: Altered GI function Etiology: swallowing deficits s/p SAH/extubation Signs & Symptoms: NPO with EN feeds and plans for PRESENTATION MANAGER eval Goals: EN tolerated and meeting >85% of nutritional needs Time Frame: Throughout Stay Status: Partially met;Ongoing Portia Johnson RD * Jefdinesh Patti - 03/19/2017 11:44 AM CRM MARKETING EXECUTIVE SPEECH-LANGUAGE PATHOLOGY CLINICAL SWALLOW ASSESSMENT EVALUATION SUMMARY Summary: Clinical swallow evaluation completed this date. Moderate to severe oropharyngeal dysphagia present 2* prolonged intubation. Please see details below. RECOMMENDATIONS: 1:NPO with ice chips only (15-20 per hour). Please follow precautions posted at [facility]. Continue temporary alternate source of nutrition. 2:Will [...] 3-5x per week. Prognosis: Good NOMS Dysphagia Ratin6-Vglvejravk-Kvmhsi Dysphagia -Not able to swallow safely by [...] Of Nutrition: NPO ORAL MECH EXAM Oral [facility] WFL*: Face asymmetrical upon labial retraction (reduced [...] evaluation with moderate cues. Therapist:Patti Nava M.S., CCC-L/PRESENTATION MANAGER Pager:[phone] Office:[phone] Date:03/19/2017 * Jeancarlos Menendez MD - 03/19/2017 11:17 AM CRM MARKETING EXECUTIVE Formatting of this note may be different from the original. 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 Added automatically from request for surgery [id number] Naren Mayfieldis a 51 y.o.malewith PMH of [...] 130-200 to help with vasospasms - Nimodipine [id number] - Continue Keppra 1500mg daily after dialysis - TCDs Daily - Neuro-ICU monitoring, neurochecks q 1 hrs Sedation/Pain Management: Yes -ICU delirium - Stop Precedex - Fentanyl PRN - Seroquel BID 50mg - Haldol prn - Delirium protocol Cardiac: HTN, HLD - SBP goal: 130-180 - MAP goal > 65 - EKG with SR, LVH - 03/11 Restart IRON WORKER minoxidil and metoprolol BID - 03/11 ECHO EF 55% - 03/13 Stop minoxidil - 12/12: restart metoprolol 50mg BID -PRN labetalol and [...] Potassium goal >4.0 mEq/L Prophylaxis Review: A) GI:A4Sllktvp B) Lines:2 peripheral lines and Right arterial [...] 20,000 Units/ sodium bicarbonate 650 mg(#) PRN (Scrum Master from Rx), sodium chloride 0.9% (NS) IP [...] (Last 24 hours): Glucose: (!) 166 (03/19/17 0597) POC Glucose (Download): (!) 163 (03/19/17 2797) Radiology and Other Diagnostic Procedures Review: Reviewed and discussed above. Jeancarlos Menendez MD Date: 03/19/[phone] Associated attestation - Derrell Bowers MD - 03/19/2017 1:59 PM CRM MARKETING EXECUTIVE Formatting of this note may be different from the original. ATTESTATION I have seen, personally fully evaluated, and discussed patient with Dr Menendez and the [facility] team. I agree with the objective [...] * Sharyn Rutledge - 03/19/2017 8:59 AM CRM MARKETING EXECUTIVE OCCUPATIONAL THERAPY PROGRESS NOTE Patient Name: Naren Mayfield Room/Bed: [id number]/01 Admitting Diagnosis: subarachnoid hemorrhage Subarachnoid bleed (HCC) [...] early to be determined Therapist: Sharyn Monroy, OTR/Omar 5294 Date: 03/19/2017 * Carole Sloan, PT - 03/19/2017 8:58 AM CRM MARKETING EXECUTIVE PHYSICAL THERAPY PROGRESS NOTE MOBILITY: Mobility Progressive Mobility Level: Stand Level of Assistance: Assist X2 Assistive Device: Hand Held Time Tolerated: 11-30 minutes Activity Limited By: Fatigue SUBJECTIVE: Subjective Significant hospital events: 51 y.o. male presenting from H after being at dialysis 03/09 when he [...] Tracie Mitchell MD - 03/18/2017 3:42 PM CRM MARKETING EXECUTIVE Formatting of this note may be different [...] well so far Tracie Mitchell MD Pager [phone] Subjective Naren Mayfield is a 51 y.o. [...] 20,000 Units/ sodium bicarbonate 650 mg(#) PRN (Scrum Master from Rx) , sodium chloride 0.9% (NS) IP Dialysis PRN, sodium chloride 0.9% (NS) IP Dialysis PRN Stopped at 03/18/17 1415, sodium chloride 0.9% (NS) IP Dialysis PRN Physical Exam Vital Signs: Last Filed In 24 Hours Vital Signs: 24 Hour Range Temp: 36.7 C (98.1 F) (03/18 1411) Pulse: 75 (03/18 1530) Respirations: 19 PER MINUTE (03/18 1530) SpO2: 96 % (03/18 1530) O2 Delivery: [...] PO2ART 108* 96 Tracie Mitchell MD Pager [phone] * Karrie Yesenia, PT - 03/18/2017 9:38 AM CRM MARKETING EXECUTIVE PHYSICAL THERAPY PROGRESS NOTE MOBILITY: Progressive Mobility [...] * Sharyn Rutledge - 03/18/2017 9:38 AM CRM MARKETING EXECUTIVE OCCUPATIONAL THERAPY PROGRESS NOTE Patient Name: Naren Mayfield Room/Bed: TK9718/01 Admitting Diagnosis: subarachnoid hemorrhage Subarachnoid bleed (HCC) [...] Jeancarlos Menendez MD - 03/18/2017 7:54 AM CRM MARKETING EXECUTIVE Formatting of this note may be different from the original. 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 Added automatically from request for surgery [id number] Naren Mayfieldis a 51 y.o.malewith PMH of [...] 130-180 to help with vasospasms - Nimodipine [id number] - Continue Keppra 1500mg daily after dialysis - TCDs Daily - Neuro-ICU monitoring, neurochecks q 1 hrs Sedation/Pain Management: Yes -ICU delirium - Precedex starterd overnight-will try and come off - Fentanyl PRN - Seroquel BID 50mg - Haldol prn - Delirium protocol Cardiac: HTN, HLD - SBP goal: 130-180 - MAP goal > 65 - EKG with SR, LVH - 03/11 Restart IRON WORKER minoxidil and metoprolol BID - 03/11 ECHO [...] Potassium goal >4.0 mEq/L Prophylaxis Review: A) GI:X5Yeybpai B) Lines:2 peripheral lines and Right arterial [...] 100 ml IV drip 0.4 mcg/kg/hr ( 9936) PRN and Respiratory Meds:acetaminophen Q4H PRN, albuterol 0.5% Q4H PRN, fentaNYL citrate PF Q1H PRN, haloperidol Q6H PRN, hydrALAZINE Q6H PRN, ipratropium bromide Q4H PRN, labetalol (NORMODYNE; TRANDATE) injection Q10 MIN PRN, methylcellulose PRN, ondansetron Q6H PRN, pancrelipase 20,000 Units/ sodium bicarbonate 650 mg(#) PRN (Scrum Master from Rx), sodium chloride 0.9% (NS) IP [...] SpO2 94 %. General appearance: well-developed Neurologic: [place] coma score: E: 2 M: 6 V: [...] 0340) POC Glucose (Download): (!) 162 (03/18/17 034) Radiology and Other Diagnostic Procedures Review: Reviewed and discussed above. Jeancarlos Menendez MD Date: 03/18/[phone] Associated attestation - Derrell oBwers MD - 03/18/2017 12:46 PM CRM MARKETING EXECUTIVE Formatting of this note may be different from the original. ATTESTATION I have seen, personally fully evaluated, and discussed patient with Dr Menendez and [facility]. I agree with the objective findings [...] Nir Timmons MD - 03/17/2017 1:45 PM CRM MARKETING EXECUTIVE Formatting of this note may be different [...] he can tolerate. Nir Timmons MD Pager [phone] Subjective Naren Mayfield is a 51 y.o. [...] 20,000 Units/ sodium bicarbonate 650 mg(#) PRN (Scrum Master from Rx) , sodium chloride 0.9% (NS) [...] PO2ART 74* 108* Nir Timmons MD Pager [phone] * Jeancarlos Menendez MD - 03/17/2017 12:05 PM CRM MARKETING EXECUTIVE Formatting of this note may be different from the original. 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 - 12/6 CT perfusion: 1. Scattered small and moderate [...] 130-180 to help with vasospasms - Nimodipine [id number] - Continue Keppra 1500mg daily after dialysis - TCDs Daily - Neuro-ICU monitoring, neurochecks q 1 hrs Sedation/Pain Management: Yes - Precedex stopped - Fentanyl PRN - Assess for delirium daily - Seroquel BID 50mg - Haldol prn Cardiac: HTN, HLD - SBP goal: 130-180 - MAP goal > 65 - EKG with SR, LVH - 03/11 Restart IRON WORKER minoxidil and metoprolol BID - 03/11 ECHO [...] Potassium goal >4.0 mEq/L Prophylaxis Review: A) GI:V6Cckceno B) Lines:2 peripheral lines, place Right arterial [...] 20,000 Units/ sodium bicarbonate 650 mg(#) PRN (Scrum Master from Rx), sodium chloride 0.9% (NS) IP [...] discussed above. Jeancarlos Menendez MD Date: 03/17/[phone] Associated attestation - Bakari Wu MD - 03/17/2017 9:11 PM CRM MARKETING EXECUTIVE Formatting of this note may be different [...] possible cerebral vasospasm - observe closely Possible WOODWORKING MACHINE SETTER infection His agitation is also partly driven [...] Calista Espana MD - 03/17/2017 8:01 AM CRM MARKETING EXECUTIVE Formatting of this note may be different [...] (HCC) Added automatically from request for surgery [id number] IVH (intraventricular hemorrhage) (HCC) Intraparenchymal hematoma of [...] for restraints. Calista Espana MD Please call [phone] with any questions. * Nir Timmons MD - 03/16/2017 5:19 PM CRM MARKETING EXECUTIVE Formatting of this note may be different [...] computer is accurate. Nir Timmons MD Pager [phone] Subjective Naren Mayfield is a 51 y.o. [...] 20,000 Units/ sodium bicarbonate 650 mg(#) PRN (Scrum Master from Rx), sodium chloride 0.9% (NS) IP [...] PO2ART 145* 92 Nir Timmons MD Pager [phone] * Calista Espana MD - 03/16/2017 8:11 AM CRM MARKETING EXECUTIVE Formatting of this note may be different [...] (HCC) Added automatically from request for surgery [id number] IVH (intraventricular hemorrhage) (HCC) Intraparenchymal hematoma of [...] for restraints. Calista Espana MD Please call [phone] with any questions. * Bakari Wu - 03/16/2017 6:35 AM CRM MARKETING EXECUTIVE Formatting of this note may be different [...] 03/09/2017 Added automatically from request for surgery [id number] Naren Dickens a 51 y.o.malewith PMH of [...] 130-200 to help with vasospasms - Nimodipine [id number] - Continue Keppra 1500mg daily after dialysis [...] EKG with SR, LVH - 03/11 Restart IRON WORKER minoxidil and metoprolol BID - 03/11 ECHO [...] start accuchecks x5 daily with SSI - 12/ A1C pending - Blood glucose goal 100-180mg/dl FEN: - IVF: No maintenance fluid, - Magnesium goal >2.0, i-Jarred goal > 1.0, Potassium goal >4.0 mEq/L Prophylaxis Review: A) GI:C2Ldbcjio B) Lines:Yes; Arterial Line; Indication: Continuous BP [...] 1200) Temp: 36.9 C (98.4 F) (03/16 040) Pulse: 72 (03/16 050) Respirations: 27 PER MINUTE (03/16 500) SpO2: 96 % (03/16 500) O2 Delivery: [...] 20,000 Units/ sodium bicarbonate 650 mg(#) PRN (Scrum Master from Rx), sodium chloride 0.9% (NS) IP [...] SpO2 96 %. General appearance: well-developed Neurologic: [place] coma score: E: 2 M: 6 V: [...] hours): POC Glucose (Download): (!) 162 (03/16/17 7893) Radiology and Other Diagnostic Procedures Review: Reviewed and discussed above. Phi Velasquez MD Date: 03/16/[phone] * Portia Johnson RD - 03/15/2017 2:18 PM CRM MARKETING EXECUTIVE CLINICAL NUTRITION Clinical Nutrition Follow-Up Summary Nutrition [...] Renal @ 40ml/hr with 30ml water bolus [id number] and 3 packs Prosource per day. This [...] available this afternoon, says pt eating well IRON WORKER and eating whatever he wanted though he [...] carb diabetic diet order with texture per PRESENTATION MANAGER. Intervention / Plan: obtained subjective data monitor En tolerance/provision monitor for swallow eval and ability to advance diet per PRESENTATION MANAGER monitor wt trends, labs, meds, GI status [...] * Saman Joshi - 03/15/2017 2:07 PM CRM MARKETING EXECUTIVE Patient disconnected from Video EEG Monitoring without complications. * Yesenia Yoon, PT - 03/15/2017 1:30 PM CRM MARKETING EXECUTIVE PHYSICAL THERAPY ASSESSMENT MOBILITY: Progressive Mobility Level: [...] 6 Standardized (T-scale) Score: 16.59 Basic Mobility [facility] 0-100%: 100 [facility] G Code Modifier for Basic Mobility: CN [...] on above evaluation and clinical judgment. * Saqib Perrysarah Sharyn - 03/15/2017 1:30 PM CRM MARKETING EXECUTIVE OCCUPATIONAL THERAPY ASSESSMENT NOTE Patient Name: Naren Mayfield Room/Bed: [place] [address] Admitting Diagnosis: subarachnoid hemorrhage Subarachnoid bleed (HCC) [...] Home Equipment: Cane Prior Function Level Of [place]: Independent with ADLs and functional transfers Lives [...] Monroy, OTR/L 5294 Date: 03/15/2017 * Jeancarlos Menendez MD - 03/15/2017 1:01 PM CRM MARKETING EXECUTIVE Formatting of this note may be different from the original. 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 Added automatically from request for surgery [id number] Naren Dickens a 51 y.o.malewith PMH of [...] 130-160 to help with vasospasms - Nimodipine [id number] - Continue Keppra 1500mg daily after dialysis [...] EKG with SR, LVH - 03/11 Restart IRON WORKER minoxidil and metoprolol BID - 03/11 ECHO EF 55% - 03/13 Stop minoxidil and metoprolol Respiratory: Pleural effusion Date of Intubation: 03/09/17Reason: Airway protection - PS 450/40%// - Extubated 03/15 - OSH CXR with [...] Potassium goal >4.0 mEq/L Prophylaxis Review: A) GI:W5Pddmebt B) Lines:Yes; Arterial Line; Indication: Continuous BP [...] 20,000 Units/ sodium bicarbonate 650 mg(#) PRN (Scrum Master from Rx), sodium chloride 0.9% (NS) IP [...] 5 X Day levETIRAcetam in NaCl (iso-os) (ALISHAPPRA) IVPB (premade) 1,500 mg 100 mL 1,500 [...] discussed above. Jeancarlos Menendez MD Date: 03/15/[phone] Associated attestation - Bakari Wu MD - 03/15/2017 6:36 PM CRM MARKETING EXECUTIVE Formatting of this note may be different [...] Marta Soto, OT - 03/14/2017 2:42 PM CRM MARKETING EXECUTIVE OCCUPATIONAL THERAPY NO TREATMENT NOTE The patient [...] Tracie Mitchell MD - 03/14/2017 1:29 PM CRM MARKETING EXECUTIVE Formatting of this note may be different [...] stable on treatment Tracie Mitchell MD Pager [phone] Subjective Naren Mayfield is a 51 y.o. [...] 20,000 Units/ sodium bicarbonate 650 mg(#) PRN (Scrum Master from Rx), sodium chloride 0.9% (NS) IP Dialysis PRN, sodium chloride 0.9% (NS) IP Dialysis PRN Stopped at 03/14/17 0731, sodium chloride 0.9% (NS) IP Dialysis PRN Physical Exam Vital Signs: Last Filed In 24 Hours Vital Signs: 24 Hour Range BP: 144/60 (03/14 730) Temp: 37.7 C (99.9 F) (03/14 1200) Pulse: 79 (03/14 1315) Respirations: 24 PER MINUTE (03/14 131) SpO2: 97 % (03/14 1315) O2 Delivery: Endotracheal Tube (Oral) (03/14 1200) SpO2 Pulse: 79 (03/14 131) BP: (144)/(60) ABP: (100-187)/(51-101) Temp: [37.1 C [...] PO2ART 112* 109* Tracie Mitchell MD Pager [phone] * Jeancarlos Menendez MD - 03/14/2017 12:41 PM CRM MARKETING EXECUTIVE Formatting of this note may be different from the original. 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 Added automatically from request for surgery [id number] Naren Mayfieldis a 51 y.o.malewith PMH of [...] 130-160 to help with vasospasms - Nimodipine [id number] - Phenylephrine as needed - Increase Keppra [...] EKG with SR, LVH - 03/11 Restart IRON WORKER minoxidil and metoprolol BID - 03/11 ECHO [...] 5 ml Net 2771.62 ml Endocrine: DM -12 BG on chem 151- will start accuchecks x5 daily with SSI - 03/12 A1C pending - Blood glucose goal 100-180mg/dl FEN: - IVF: No maintenance fluid, - Magnesium goal >2.0, i-Jarred goal > 1.0, Potassium goal >4.0 mEq/L Prophylaxis Review: A) GI:Q5Yapgqyh B) Lines:Yes; Arterial Line; Indication: Continuous BP [...] 20,000 Units/ sodium bicarbonate 650 mg(#) PRN (Scrum Master from Rx), sodium chloride 0.9% (NS) IP [...] SpO2 99 %. General appearance: well-developed Neurologic: [place] coma score: E: 2 M: 6 V: [...] discussed above. Jeancarlos Menendez MD Date: 03/14/[phone] Associated attestation - Bakari Wu MD - 03/14/2017 9:51 PM CRM MARKETING EXECUTIVE Formatting of this note may be different from the original. NEICU Attending Sash Sticker Attestation Naren Mayfield is a 51 y.o. [...] * Sydney Andrade - 03/14/2017 9:05 AM CRM MARKETING EXECUTIVE EEG signals are clean of artifact and visible. Video was visualized and recording. Audio recording was checked and functioning. The VEEG system is on- line. Central monitoring station is functioning appropriately. The event button is operational and within reach of the patient and/or patient' s family. Electrode impedances below 5 kOhms * Tracie Mitchell MD - 03/13/2017 4:54 PM CRM MARKETING EXECUTIVE Formatting of this note may be different [...] for dialysis needs. Tracie Mitchell MD Pager [phone] Subjective Naren Mayfield is a 51 y.o. [...] 20,000 Units/ sodium bicarbonate 650 mg(#) PRN (Scrum Master from Rx) Physical Exam Vital Signs: Last [...] PO2ART 99 112* Tracie Mitchell MD Pager [phone] * Portia Johnson, RD - 03/13/2017 3:54 PM CRM MARKETING EXECUTIVE CLINICAL NUTRITION Clinical Nutrition Follow-Up Summary Nutrition [...] combination of renal-dialysis and diabetic consistent carb [phone] (60g CHO/meal). Intervention / Plan: attempted to obtain subjective data Monitor labs, weight trends, EN intake/tolerance, GI health Nutrition Diagnosis: Nutrition Diagnosis: Inadequate protein-energy intake Etiology: SAH, s/p intubation Signs & Symptoms: trophic EN feeds Goals: EN tolerated and meeting >75% of nutritional needs Time Frame: Within 72 Hours Status: Ongoing Portia Johnson, TAE * Saman Joshi - 03/13/2017 3:07 PM CRM MARKETING EXECUTIVE EEG electrodes were successfully placed on pt's [...] Carole Sloan, PT - 03/13/2017 11:45 AM CRM MARKETING EXECUTIVE PHYSICAL THERAPY NOTE Patient's case reviewed and discussed during interdisciplinary rounds. Patient is currently minimally responsive and unable to participate in purposeful physical therapy. Physical therapy will continue to follow and provide intervention as indicated. Therapist: Carole Sloan, PT Date: 03/13/2017 * Marcos Solorzano MD - 03/13/2017 11:14 AM CRM MARKETING EXECUTIVE Formatting of this note may be different [...] Vital Signs: 24 Hour Range BP: 115/50 (03/130) Temp: 37.9 C (100.2 F) (03/13 800) [...] 20,000 Units/ sodium bicarbonate 650 mg(#) PRN (Scrum Master from Rx) Radiology Pertinent radiology reviewed. Caroline Davila, Pulmonary/Critical Care Pager # [phone] 03/13/2017 * Marta Soto, OT - 03/13/2017 10:05 AM CRM MARKETING EXECUTIVE OCCUPATIONAL THERAPY NO TREATMENT NOTE The patient was not seen due to: discussed with RN. Pt with worsened exam, pt is not following commands and not able to participate in meaningful therapy at this time. Will continue to follow. Attempted to see patient 1 time(s) Therapist: Marta Soto, OT Date: 03/13/2017 * Jeancarlos Menendez MD - 03/13/2017 8:09 AM CRM MARKETING EXECUTIVE Formatting of this note may be different from the original. 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 Added automatically from request for surgery [id number] Naren Mayfieldis a 51 y.o.malewith PMH of [...] 130-160 to help with vasospasms - Nimodipine [id number] - Phenylephrine - Keppra 1000mg daily after [...] EKG with SR, LVH - 03/11 Restart IRON WORKER minoxidil and metoprolol BID - 03/11 ECHO [...] Potassium goal >4.0 mEq/L Prophylaxis Review: A) GI:G6Hloefbh B) Lines:Yes; Arterial Line; Indication: Continuous BP [...] 20,000 Units/ sodium bicarbonate 650 mg(#) PRN (Scrum Master from Rx) Critical Care Vitals: ICP Monitoring: [...] discussed above. Jeancarlos Menendez MD Date: 03/13/[phone] Associated attestation - Bakari Wu MD - 03/13/2017 6:19 PM CRM MARKETING EXECUTIVE Formatting of this note may be different [...] discussed patient with Dr. Menendez and the [facility] team. I agree with the objective [...] * Bakari Wu - 03/12/2017 11:05 PM CRM MARKETING EXECUTIVE Formatting of this note may be different [...] 03/09/2017 Added automatically from request for surgery [id number] Naren Dickens a 51 y.o.malewith PMH of [...] 1000mg daily after dialysis daily - Nimotop [id number] - Consider 1:1 fluid replacement - TCDs Daily - Neuro-ICU monitoring, neurochecks q 1 hrs Sedation/Pain Management: Yes - Precedex drip for sedation - Fentanyl PRN - Assess for delirium daily Cardiac: HTN, HLD - SBP goal: 120-160 - MAP goal > 65 - Cardene drip to meet SBP goal, PRN hydralazine, labetalol - EKG with SR, LVH - 03/11 Restart IRON WORKER minoxidil and metoprolol BID - 03/11 ECHO EF 55% Respiratory: Pleural effusion Date of Intubation: 03/09/17Reason: Airway protection - AC 450/50%/21/08 - ABG 7.33/ 41/72/20.9 - OSH CXR [...] Potassium goal >4.0 mEq/L Prophylaxis Review: A) GI:P3Uduvvtz B) Lines:Yes; Arterial Line; Indication: Continuous BP [...] 100 ml IV drip 1 mcg/kg/hr (03/12/17 191) PRN and Respiratory Meds:acetaminophen Q4H PRN, albuterol 0.5% Q4H PRN, fentaNYL citrate PF Q1H PRN, hydrALAZINE Q6H PRN, ipratropium bromide Q4H PRN, labetalol (NORMODYNE; TRANDATE) injection Q15 MIN PRN, ondansetron Q6H PRN, pancrelipase 20,000 Units/ sodium bicarbonate 650 mg(#) PRN (Scrum Master from Rx) Critical Care Vitals: ICP Monitoring: [...] 0344) POC Glucose (Download): (!) 139 (03/12/17 1714) Radiology and Other Diagnostic Procedures Review: all noted Bakari Wu Date: 03/12/[phone] * Nicolas Mclaughlin MD - 03/12/2017 5:00 PM CRM MARKETING EXECUTIVE Brief Pulmonary Progress Note Due to required [...] Tracie Mitchell MD - 03/12/2017 4:52 PM CRM MARKETING EXECUTIVE Formatting of this note may be different [...] for dialysis needs Tracie Mitchell MD Pager [phone] Subjective Naren Mayfield is a 51 y.o. [...] 100 ml IV drip 1 mcg/kg/hr (03/12/17 6867) Prn acetaminophen Q4H PRN 650 mg at 03/12/17 0012, albuterol 0.5% Q4H PRN, fentaNYL citrate PF Q1H PRN 50 mcg at 03/12/17 1002, hydrALAZINE Q6H PRN 10 mg at 03/09/17 2134, ipratropium bromide Q4H PRN, labetalol (NORMODYNE; TRANDATE) injection Q15 MIN PRN 10 mg at 03/11/17 1152, ondansetron Q6H PRN, pancrelipase 20,000 Units/ sodium bicarbonate 650 mg(#) PRN (Scrum Master from Rx), sodium chloride 0.9% (NS) IP [...] -- -- 5.2 Recent Labs 03/09/17184203/10/[id number]/10/17204903/11/17 0050 03/11/17 0355 03/11/17 0607 03/11/17 0843 [...] PO2ART 132* 72* Tracie Mitchell MD Pager [phone] * Marta Soto, OT - 03/12/2017 9:44 AM CRM MARKETING EXECUTIVE OCCUPATIONAL THERAPY NO TREATMENT NOTE The patient was not seen due to: pt still with sheaths in place. Will follow up tomorrow as appropriate. Therapist: Marta Soto, OT Date: 03/12/2017 * Geoffrey Guerra APRN - 03/12/2017 6:44 AM CRM MARKETING EXECUTIVE Formatting of this note may be different from the original. Neuroscience Critical Care Progress Note Naren Mayfield Admission Date: 03/09/2017 LOS: 3 days ASSESSMENT/PLAN Patient Active Problem List Diagnosis Date Noted IVH (intraventricular hemorrhage) (HCC) 03/09/2017 Intraparenchymal hematoma of brain (HCC) 03/09/2017 Subarachnoid bleed (HCC) 03/09/2017 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HCC) 03/09/2017 Added automatically from request for surgery [id number] Naren Mayfieldis a 51 y.o.malewith PMH of [...] 1000mg daily after dialysis daily - Nimotop [id number] - Consider 1:1 fluid replacement - TCDs Daily - Neuro-ICU monitoring, neurochecks q 1 hrs Sedation/Pain Management: Yes - Precedex drip for sedation - Fentanyl PRN - Assess for delirium daily Cardiac: HTN, HLD - SBP goal: 120-160 - MAP goal > 65 - Cardene drip to meet SBP goal, PRN hydralazine, labetalol - EKG with SR, LVH - 03/11 Restart IRON WORKER minoxidil and metoprolol BID - 03/11 ECHO [...] Potassium goal >4.0 mEq/L Prophylaxis Review: A) GI:Q0Wrcrlae B) Lines:Yes; Arterial Line; Indication: Continuous BP monitoring; Location: Radial C) Urinary Catheter:Yes; Retain cunningham due to: Need for accurate Intake and Output D) Antibiotic Usage:No E) VTE:SCDs F) Isolation:NA G)Seizures:Keppra I) Restraints: Patient assessed for need for restraints. Disposition/Family:NEICU Primary service:ANIAG Consults: NEEDMARU, Renal __ SUBJECTIVE Naren Mayfield is a [...] consulted teams Geoffrey Guerra, ROLO Date: 03/12/[phone] * Bakari Wu - 03/11/2017 6:00 PM CRM MARKETING EXECUTIVE Formatting of this note may be different [...] 03/09/2017 Added automatically from request for surgery [id number] Naren Mayfield is a 51 y.o. male [...] 1000mg daily after dialysis daily - Nimotop [id number] - Consider 1:1 fluid replacement - TCDs [...] EKG with SR, LVH - 03/11 Restart IRON WORKER minoxidil and metoprolol BID - ECHO this AM Respiratory: Pleural effusion Date of Intubation: 03/09/17Reason: Airway protection - AC 450/50%//5 - ABG pending - OSH CXR with [...] Potassium goal >4.0 mEq/L Prophylaxis Review: A) GI:D0Muhekpu B) Lines:Yes; Arterial Line; Indication: Continuous BP [...] appearance: well-developed, cooperative and mild distress Neurologic: [place] coma score: E: 3 M: 6 V: [...] Review: all noted Bakari Wu Date: 03/11/[phone] * Carole Sloan, PT - 03/11/2017 3:31 PM CRM MARKETING EXECUTIVE PHYSICAL THERAPY NOTE Discussed case with bedside RN, patient is currently requiring increased oxygen demands and not appropriate for physical therapy intervention. Physical therapy will continue to follow and provide intervention as indicated. Therapist: Carole Sloan, PT Date: 03/11/2017 * Marta Soto, OT - 03/11/2017 3:05 PM CRM MARKETING EXECUTIVE OCCUPATIONAL THERAPY NO TREATMENT NOTE The patient was not seen due to: getting bedside test. Still on 80% FiO2, but likely to wean later per RN. Will follow up tomorrow. Therapist: Marta Soto, OT Date: 03/11/2017 * Melisa Dailey, RT - 03/11/2017 8:22 AM CRM MARKETING EXECUTIVE No wean till after dialysis per RN team * Geoffrey Guerra APRN - 03/11/2017 6:11 AM CRM MARKETING EXECUTIVE Formatting of this note may be different from the original. 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 male [...] 1000mg daily after dialysis daily - Nimotop [id number] - Consider 1:1 fluid replacement - TCDs [...] EKG with SR, LVH - 03/11 Restart IRON WORKER minoxidil and metoprolol BID - ECHO this AM Respiratory: Pleural effusion Date of Intubation: 03/09/17Reason: Airway protection - AC 450/50%/16/5 - ABG pending - OSH CXR with [...] Potassium goal >4.0 mEq/L Prophylaxis Review: A) GI:[id number] B) Lines:Yes; Arterial Line; Indication: Continuous BP [...] PER MINUTE (03/11 0500) SpO2: 100 % (03/11 500) O2 Delivery: [...] appearance: well-developed, cooperative and mild distress Neurologic: [place] coma score: E: 3 M: 6 V: [...] care with consulted teams. Geoffrey Resendiz Charlie, MILK CONDENSER Date: 03/11/[phone] * Tonia Lopes MD - 03/10/2017 9:02 PM CRM MARKETING EXECUTIVE Formatting of this note may be different [...] and coordination of care. * Moi Sol, TENZIN - 03/10/2017 8:58 PM CRM MARKETING EXECUTIVE Patient came from OR and arrived in [...] Saeid Thompson, RN - 03/10/2017 8:42 PM CRM MARKETING EXECUTIVE Patient transported to CT on the monitor, on the vent with RT. Physician with the patient during transport. Transported without incident. After CT scan the patient was transported to OR with anesthesia assuming care. * Courtney Dale MD - 03/10/2017 5:01 PM CRM MARKETING EXECUTIVE Pulmonary service consulted for L pleural effusion at 8:30 am. Unable to see the patient all day as he has been in the OR since 7 am and has not returned. Pulmonary consult service will see the patient in the AM. Please page [phone] if stat consult required overnight. Courtney Dale MD, M.Sc. PGY4 Pulmonary and Critical Care Fellow Pager: [phone] * Tracie Mitchell MD - 03/10/2017 1:51 PM CRM MARKETING EXECUTIVE Renal service consulted for ESRD. Unable to see patient as he has been in the OR since morning. Will see patient in AM unless acutely needed. Please obtain a BMP after return from OR * Yesenia Yoon, PT - 03/10/2017 9:31 AM CRM MARKETING EXECUTIVE PHYSICAL THERAPY NOTE Physical therapy orders received and appreciated. Patient to OR today for right pterional craniotomy for clipping of MCA aneurysm. PT will follow up 03/11 and provide physical therapy intervention as indicated. Therapist: Yesenia Yoon, PT Date: 03/10/2017 * Brandy Posada OT - 03/10/2017 9:10 AM CRM MARKETING EXECUTIVE OCCUPATIONAL THERAPY NOTE OT orders received and appreciated. Pt to OR for procedure this date. OT will follow up tomorrow for evaluation/treatment as indicated. Therapist: Brandy Posada, OTR/L 3806 Date: 03/10/2017 * Moi Sol, TENZIN - 03/10/2017 8:25 AM CRM MARKETING EXECUTIVE Patient started to be prepared for OR at 0730. Patient left room at 0815. Patient taking via bed with EMAIL MARKETING INTERN's and RT. No issues during this process. This RN was not able to get a full assessment done before the patient was taken to OR. * Rosie Tanner APRN - 03/10/2017 6:32 AM CRM MARKETING EXECUTIVE Formatting of this note may be different from the original. 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 male [...] EKG with SR, LVH - Will add IRON WORKER medications when verified - ECHO this AM [...] goal >4.0 mEq/L Prophylaxis Review: A) GI: [id number] B) Lines: Yes; Arterial Line; Indication: Continuous [...] (03/10 0200) Height: 172.7 cm (68") (03/09 1525) Weight: 115.1 kg (253 lb 12 oz) (03/09 152) BP: (107-143)/(67-95) ABP: (110-183)/(55-104) ART [...] (253 lb 12 oz), SpO2 98 %. [place] coma score: E: 3 - Opens eyes [...] procedures reviewed. Rosie Tanner APRN Date: 03/10/[phone] I spent 65 minutes managing the care [...] Tonia Lopes MD - 03/09/2017 6:22 PM CRM MARKETING EXECUTIVE Formatting of this note may be different [...] Dayan Rollins RN - 03/09/2017 4:43 PM CRM MARKETING EXECUTIVE Sedation physician present in room. Recent vitals and patient condition reviewed between sedating physician and nurse. Reassessment completed. Determination made to proceed with planned sedation. * Leslye Park RN ([place]) - 03/09/2017 3:30 PM CRM MARKETING EXECUTIVE Pt arrived to room HY0615 via EMS intubated and sedated. VSS, no [...] De Leon MD - 03/09/2017 3:30 PM CRM MARKETING EXECUTIVE Formatting of this note may be different [...] q4 - discussed with staff Please page [phone] with any questions Devon Castro MD [phone] __ Chief Complaint: MCA aneurysm History of [...] Dima Glasgow RN - 03/26/2017 9:00 AM CRM MARKETING EXECUTIVE Associated Order(s): HEMODIALYSIS INPATIENT; HEMODIALYSIS DATE 847: Consent confirmed, assessment complete and charted. Patient's LFA AV Fistula was accessed with two #15 fistula needles upon the first attempt. Treatment was started at this time. 1247: Blood returned, needles de-cannulated, bleeding stopped in <10min. Treatment completed at this time. * Dharmesh Navarro RN - 03/23/2017 3:22 PM CRM MARKETING EXECUTIVE Associated Order(s): HEMODIALYSIS INPATIENT; HEMODIALYSIS DATE Arrived at patient room C 5112 and treatment started at 1040 am. Vital signs stable. Patient tolerating treatment well. Treatment complete at 1444 pm. Vital signs stable. Kendrick removed from L AV fistula and site healed. Report given to unit nurse. Left patient in room C 5112 in stable condition. * Hetal Roberts RN - 03/21/2017 8:44 AM CRM MARKETING EXECUTIVE Associated Order(s): HEMODIALYSIS INPATIENT; HEMODIALYSIS DATE 629 Arrived in Pt's [id number] with portable R/O and diaysis machine/supply cart. ICU staff cleaning Pt from BM. [id number] R/O rinsing/cool down cycle in progress. Pt [...] Geoffrey Farias RN - 03/19/2017 11:57 AM CRM MARKETING EXECUTIVE Associated Order(s): HEMODIALYSIS INPATIENT; HEMODIALYSIS DATE Hemodialysis [...] Mihai Aly RN - 03/18/2017 2:45 PM CRM MARKETING EXECUTIVE Associated Order(s): HEMODIALYSIS INPATIENT; HEMODIALYSIS DATE Formatting of this note may be different from the original. 1225 Status: Active Ordering user: Nir Timmons MD 03/17/171224 Ordering provider: Nir Timmons MD Authorized by: Nir Timmons MD Frequency: Once 03/17/17 1800 - 1 Occurrences Released by: Patti Garcia RN 03/17/17 3838 Questions: Date Hemodialysis to be performed: 03/18/2017 [...] Vernell Corbin MD - 03/18/2017 1:01 PM CRM MARKETING EXECUTIVE VIDEO EEG REPORT Name: Naren Mayfield Date [...] on the right side. Vernell Corbin MD Design Project Manager of Neurology [facility] * Bakari Wu - 03/16/2017 9:43 PM CRM MARKETING EXECUTIVE Procedure(s): THORACENTESIS ED Procedure Note - Attempted [...] Mihai Aly RN - 03/16/2017 2:38 PM CRM MARKETING EXECUTIVE Associated Order(s): HEMODIALYSIS INPATIENT; HEMODIALYSIS DATE Formatting [...] bed. 1530 B/P in the 200s systolic. garage supervisor giving meds. UF increased to 3.[address] Cardona. 1615 BP remains above 200 systolic. ICU nurse addressing B/P. 1745 Dialysis complete. UF total was 4 liters. Phi DAVE given report. * Vernell Corbin MD - 03/15/2017 9:22 AM CRM MARKETING EXECUTIVE VIDEO EEG REPORT Name: Naren Mayfield Date [...] on the right side. Vernell Corbin MD Design Project Manager of Neurology [facility] Epilepsy [facility] * Marcos Solorzano MD - 03/14/2017 4:26 PM CRM MARKETING EXECUTIVE Procedure(s): THORACENTESIS ED Pre-Procedure Diagnose(s): Pleural effusion [...] Dr. Davila, Pulmonary Critical Care Fellow. DOS 7- Staff name: Marcos Solorzano MD Date: 03/15/2017 * Vernell Corbin MD - 03/14/2017 9:22 AM CRM MARKETING EXECUTIVE VIDEO EEG REPORT Name: Naren Mayfield Date [...] on the right side. Vernell Corbin MD Design Project Manager of Neurology [facility] * Germaine Covarrubias, RN - 03/14/2017 7:27 AM CRM MARKETING EXECUTIVE Associated Order(s): HEMODIALYSIS INPATIENT; HEMODIALYSIS DATE stocking and box shop supervisor in patient's room. Patient sedated and on [...] Vernell Corbin MD - 03/13/2017 5:44 PM CRM MARKETING EXECUTIVE EEG REPORT Date of service: 03/13/2017 Name: [...] on the right side. Vernell Corbin MD Design Project Manager of Neurology [facility] * Vandana Delaney RN - 03/12/2017 12:33 PM CRM MARKETING EXECUTIVE Associated Order(s): HEMODIALYSIS INPATIENT; HEMODIALYSIS DATE 1233- [...] updated on pt. Pt remains in room [id number] at this time. * Bailee Gann RN - 03/11/2017 10:09 AM CRM MARKETING EXECUTIVE Associated Order(s): HEMODIALYSIS INPATIENT 0900 Arrived in HU8611 to set up for dialysis. Assessment completed and documented. Care of pt, respirator and all lines remains with his primary PATIENT CARE SECRETARYTENZIN Jean. Left AVF assessed and found to [...] and paper tape. Report given to primary PATIENT CARE SECRETARYTENZIN Jean. * Dharmesh Navarro RN - 03/10/2017 9:10 PM CRM MARKETING EXECUTIVE Associated Order(s): HEMODIALYSIS DATE Arrived on unit and contacted unit nurse for patient at 2014 pm. Patient had cranial bleed and sent to CT and then to OR for second time. Structural Welder contacted and said patient may be done the next morning. Unit nurse also said patient may still have needles from outpatient dialysis unit in fistula. Patient already in OR. * Maxim Chauhan MD - 03/10/2017 9:45 AM CRM MARKETING EXECUTIVE Pre-Procedure Diagnose(s): Aneurysm rupture of middle cerebral [...] a secure HIPAA-compliant network. Maxim Chauhan MD Business Performance Analyst [facility] Epilepsy [place] Department of Neurology in this encounter Consult Notes * Aleksandr Young MD - 03/19/2017 10:34 AM CRM MARKETING EXECUTIVE Associated Order(s): CONSULT REHABILITATION MEDICINE PHYSICIAN Formatting of this note may be different from the original. Physical Medicine & Rehabilitation Consult Note Date of Service: 03/19/2017 Naren Mayfield is a 51 y.o. male. : 1965 Primary Insurance: MEDICARE Secondary Insurance: [facility] MEDICAID [place] Tertiary Insurance: Financial Class: Medicare Date of [...] a 51 y.o. male admitted to [facility] on 03/09/2017 with the following [...] Cognitive impairment Pt would benefit from formal PRESENTATION MANAGER cognitive evaluation to determine specific domains of cognitive dysfunction at this or next level of care. Aleksandr Young MD Rehab Consult Pager: [phone] History of Present Illness Hospital Course: Mr. Naren Mayfield is a 51 yo M with a hx of DM, HTN, HLD and renal failure on HD transferred to [facility] from OSH on 03/09 with concern [...] CRANIOTOMY performed by Edgar Bee MD at [facility] OR/Periop INTRACRANIAL ANEURYSM REPAIR Right 03/10/2017 Rt pterional craniotomy for clipping of MCA aneurysm performed by Edgar Bee MD at [facility] OR/Periop Family\\Social History Social History [...] 20,000 Units/ sodium bicarbonate 650 mg(#) PRN (Scrum Master from Rx), sodium chloride 0.9% (NS) IP [...] Richard Mackenzie MD - 03/19/2017 10:02 PM CRM MARKETING EXECUTIVE Rehabilitation Medicine Attending Physician Attestation: Agree with [...] complexity and goals with PT, OT, and PRESENTATION MANAGER for acute inpatient rehabilitation. Recommend continued therapies, while the primary team continues to monitor and manage acute concerns for the patient while addressing dysphagia and adequate nutritional access. Discussed with the patient and will discuss with our branch operations coordinator. Will continue to follow for medical stability/ appropriateness for discharge. Thank you for this consultation. Please call with questions/concerns. I personally performed rubin portions of the history and exam. I discussed the case with the resident and concur with the resident's documentation of history, physical assessment and treatment plan unless otherwise noted. Richard Mackenzie MD * Janeen Morse - 03/12/2017 3:10 PM CRM MARKETING EXECUTIVE Associated Order(s): CONSULT DIETITIAN CLINICAL NUTRITION Clinical Nutrition Assessment Summary Nutrition Assessment of Patient: BMI Categories Adult: Obesity Class II: 35-39.9 Malnutrition Assessment: (pending subjective information) Current Oral Intake: NPO Estimated Calorie Needs: 1850-2220kcal (25-30kcal/kg desired wt 74kg) Estimated Protein Needs: 111-133g (1.5-1.8g/kg desired wt 74kf) Oral Diet Order: NPO Current EN Order: Novasource Renal @ 40ml/hr with 30ml water bolus [id number]. This provides 1920kcal, 87g, and 871ml free [...] complete. Unable to see pt today, RD safety intern to follow up tomorrow. Pt received [...] of renal- dialysis and diabetic consistent carb 6426-6274 (60g CHO/meal). Intervention / Plan: Consult complete for EN recommendations Monitor labs, weight trends, EN intake/tolerance, GI health Will obtain further subjective data on follow up Nutrition Diagnosis: Nutrition Diagnosis: Inadequate protein-energy intake Etiology: SAH, s/p intubation Signs & Symptoms: 2 days w/o EN support Goals: EN tolerated and meeting >75% of nutritional needs Time Frame: Within 72 Hours Janeen Morse, Nurses Aide *[phone] Associated attestation - Crystal Mayen RD - 03/12/2017 3:21 PM CRM MARKETING EXECUTIVE Agree with safety intern's initial assessment/recommendations as summarized. Malnutrition assessment and updated recommendations to be completed at next visit as feasible. If patient unable to extubate soon, hypocaloric/high protein feeding goals should be initiated. Crystal Mayen RD, LD, CNSC *[phone] * Yuly Meléndez MD - 03/11/2017 5:02 PM CRM MARKETING EXECUTIVE Associated Order(s): CONSULT PULMONARY/CRITICAL CARE PHYSICIAN Formatting [...] CRANIOTOMY performed by Edgar Bee MD at [facility] OR/Periop INTRACRANIAL ANEURYSM REPAIR Right 03/10/2017 Rt pterional craniotomy for clipping of MCA aneurysm performed by Edgar Bee MD at [facility] OR/Periop Social History Social History [...] Pertinent radiology reviewed. Nicolas Mclaughlin MD Pager [phone] * Tracie Mitchell MD - 03/10/2017 10:43 AM CRM MARKETING EXECUTIVE Associated Order(s): CONSULT NEPHROLOGY PHYSICIAN Formatting of [...] - Daily weights Tracie Mitchell MD Pager [phone] History Reason for Consult: ESRD HPI: Naren [...] 1.5 years ago and he dialyses in [place], [place]. He usually dialyses T// but dialysed [...] Pertinent radiology reviewed. Tracie Mitchell MD Pager [phone] * Rosie Tanner, MILK CONDENSER - 03/09/2017 4:28 PM CRM MARKETING EXECUTIVE Associated Order(s): CONSULT NEURO CRITICAL CARE PHYSICIAN [...] Cognitive impairment suspected? Yes - if yes, PRESENTATION MANAGER cognitive evaluation ordered? Not at this time, will evaluate when extubated Sedation/Pain Management: Yes - Propofol - Assess for delirium daily Cardiac: - SBP goal: < 140 - MAP goal > 65 - Cardene drip to meet SBP goal - EKG with SR - Will add IRON WORKER medications when verified Respiratory: Date of Intubation: [...] goal >4.0 mEq/L Prophylaxis Review: A) GI: [id number] B) Lines: Yes; Arterial Line; Indication: Continuous [...] Code Decision Maker: Self and sister Mary [phone] Immunizations (includes history and patient reported): There [...] (253 lb 12 oz), SpO2 94 %. [place] coma score: E: 4 - Opens eyes [...] radiologic and diagnostic procedures reviewed. Rosie Tanner, MILK CONDENSER Date: 03/09/[phone] I spent 65 minutes managing the care [...] - Yesenia Stockton - 03/26/2017 11:21 AM CRM MARKETING EXECUTIVE Case Management Progress Note NAME:Naren Mayfield :[birth year] AGE: 51 y.o. ADMISSION DATE: 03/09/2017 DAYS ADMITTED: LOS: 17 days Todays Date: 03/26/2017 Plan REJI met with the neurosurgery team regarding POC and d/c planning. Pt is ready to d/c today, facility has accepted, since was able to get transportation arranged for dialysis. Pt going to [facility], [facility] today at 3:00 via [employer] W/C [employer] ([phone]), following his dialysis today Interventions ? Support Mary Mayfield, pt's sister is primary source of support. ? Info or Referral REJI called [facility] Medicaid to set up transportation ([phone]; where's my ride is [phone]) at d/c; [facility] denied. [facility] also originally denied dialysis apt transportation, but REJI was eventually able to obtain authorization. Pt's transport to and from Dialysis apts from [facility], are as follows: Pt's Medicaid ID is [id number] 03/28/17 9:00am apt brain picker @ 8 [facility] Confirmation#[id number] 03/30/17 9:00am brain picker @8 Confirmation #[id number] 04/02/17 9am apt, brain picker @ 8:00am from [facility] Confirmatoin #[id number] 04/04/17 9am apt from [facility] (supervisor engine repair @ 8:00am) Confirmation #[id number] 04/06/17 9am apt from [facility] (supervisor engine repair @ 8:00am) Confirmation #[id number] 04/09/17 9am apt from [facility] (supervisor engine repair @ 8:00am) Confirmation #[id number] 04/11/17 9am apt from [facility] (supervisor engine repair @ 8:00am) Confirmation #[id number] 04/13/17 9am apt from [facility] (supervisor engine repair @ 8:00am) Confirmation #[id number] ? Discharge Planning Discharge Planning: OP HD or PD Pt planning on going to [facility], [facility] today at 3:00 via [employer] W/C Van ([phone]) [address] [facility] - [facility] Re[facility] [address] [id number] ? Medication Needs ? Financial ? Legal ? Other Disposition ? Discharge Preparation When ready for discharge, who will be responsible for transporting?: sister Type of Residence: Private residence Patient expects to be discharged to: Rehab facility Was the patient receiving home care services?: No ? Expected Discharge Expected Discharge Date: 03/25/17 ? Discharge Disposition Disposition: Inpatient Rehab Facility (IRF) [facility]patient [facility]hab: [facility] ([place], [place]) ([phone]) ? Next Level Care Yesenia Stockton LMSW *[phone] * Case Mgmt DC Plan - Kavitha Pimentel - 03/26/2017 10:04 AM CRM MARKETING EXECUTIVE Request to Arrange Patient Transportation Received request from Yesenia Stockton [facility] to arrange transportation for pt to transfer to [facility] in [place]; [address] [address] today. Arrival date and time: 03/26 @ 1530 Transport company: [employer] @ [phone] Instructions for cdl driver: Pt needs wheelchair van, has no other special needs. Cost of transport: $325 to be paid by [facility] per SWCM. Kavitha Pimentel Fiber Optic Technician For further assistance please contact [facility] *[phone] * Care Plan - Consuelo Cox RN - 03/26/2017 12:33 AM CRM MARKETING EXECUTIVE Problem: Neurological Status, Impaired/Altered Goal: Progress toward [...] - Kavitha Pimentel - 03/25/2017 11:32 AM CRM MARKETING EXECUTIVE Request to Arrange Patient Transportation Received request from Yesenia Stockton [facility] to arrange transportation for pt to transfer to [facility], [address] [place] [address] today. Transportation cancelled per SWCM @ 1330 Transport company: [employer] [phone] Instructions for cdl driver: Pt needs wheelchair van, has no other special needs. Cost of transport: $325 to be paid by [facility] per SWCM Patient Transportation Quote Request Received request from REJI Rossi to check on quotes for wheelchair van to transfer pt to [facility], [address] [place] [address] [employer] [phone]: $325 Assisted Transport [phone]- $480 Kavitha Pimentel Fiber Optic Technician For further assistance please contact [facility] *[phone] * Case Mgmt DC Plan - Yesenia Stockton - 03/25/2017 11:28 AM CRM MARKETING EXECUTIVE Case Management Progress Note NAME:Naren Mayfield :[birth year] [...] Support ? Info or Referral REJI called [facility] to set up w/c transport [phone]; member service CM authorization requested for pt's dialysis transportation. Mihir to call back with confirmation ([phone]); 16:30 03/25/17. REJI also called [employer] [facility] in [place] requesting transport assistance. 03/28/17 9:00am apt brain picker @ 8 From [facility] Confirmation# 03/30/17 9:00am brain picker @8 Confirmation # 04/01/17 9am apt, brain picker @ 8:00am from [facility] Confirmatoin # 04/03/17 9am apt from [facility] (supervisor engine repair @ 8:00am) Confirmation # 04/05/17 9am apt from [facility] (supervisor engine repair @ 8:00am) Confirmation # 04/07/17 9am apt from [facility] (supervisor engine repair @ 8:00am) Confirmation # 04/09/17 9am apt from [facility] (supervisor engine repair @ 8:00am) Confirmation # 04/11/17 9am apt from [facility] (supervisor engine repair @ 8:00am) Confirmation # 04/13/17 9am apt from [facility] (supervisor engine repair @ 8:00am) Confirmation # [facility] will not transport pt from Hospital to [facility]. REJI discussed this with the SW @ [facility] ? Discharge Planning Discharge Planning: OP HD or PD Set up transportation for pt's dialysis. Pt going to [facility] as soon as w/c van can be arranged [facility] in [place] - Acute Rehab [address] [place] [address] [facility] [place] [address], [place] [address] ? Medication Needs ? Financial ? Legal ? Other Disposition ? Discharge Preparation When ready for discharge, who will be responsible for transporting?: sister Type of Residence: Private residence Patient expects to be discharged to: Rehab facility Was the patient receiving home care services?: No ? Expected Discharge Expected Discharge Date: 03/25/17 ? Discharge Disposition ? Next Level Care Yesenia Stockton [facility] *[phone] * Care Plan - Patito Moulton RN - 03/25/2017 12:19 AM CRM MARKETING EXECUTIVE Problem: Neurological Status, Impaired/Altered Goal: Progress toward [...] Consuelo Cox RN - 03/24/2017 3:07 AM CRM MARKETING EXECUTIVE Problem: Neurological Status, Impaired/Altered Goal: Progress toward [...] - Yesenia Stockton - 03/22/2017 4:17 PM CRM MARKETING EXECUTIVE Case Management Progress Note NAME:Naren Mayfield :[birth year] AGE: 51 y.o. ADMISSION DATE: 03/09/2017 DAYS ADMITTED: LOS: 13 days Todays Date: 03/22/2017 Plan SW met with the neurosurgery team regarding POC and d/c planning. Pt may be ready to transition to IPR as early as Saturday. Interventions ? Support Pt's sister, Mary Mayfield ([phone]) is pt's primary support. She is working with [facility] housing to try and get him [...] Calista Maldonado with the housing authority in [place] ( [phone]; [phone]); per pt and pt's sister's request. ? Discharge Planning Discharge Planning: OP HD or PD SW sent a referral to [facility] in [place], but they denied acceptance , stating that pt needs to have a d/c plan from there. REJI discussed this with Mary, and she stated that she will not let him be homeless--that she can take him back in to her home, until she can get the housing voucher approved. REJI will review this with [facility] clinical liaison. [facility] [address] [place] [address] ? Medication Needs ? Financial ? Legal ? Other Disposition ? Discharge Preparation When ready for discharge, who will be responsible for transporting?: sister Type of Residence: Private residence Patient expects to be discharged to: Rehab facility Was the patient receiving home care services?: No ? Expected Discharge Expected Discharge Date: 03/25/17 ? Discharge Disposition ? Next Level Care Yesenia Stockton, [facility] *6246 * Procedures (Immed Post or Bedside) - Elaine Nicholson APRN - 03/21/2017 5: 47 PM CRM MARKETING EXECUTIVE Formatting of this note may be different from the original. Neuro Critical Care Transcranial Doppler Ultrasound Report Naren Mayfield [id number] 51 y.o. male Diagnosis: SAH Indication for [...] Derrell Bowers MD - 03/22/2017 7:55 AM CRM MARKETING EXECUTIVE I have personally reviewed the study. Bilaterally elevated LRs but mean MCA velocities < 120, do not meet criteria for vasospasm. Follow up study recommended. Derrell Bowers MD 03/22/2017 7:55 AM * Case Mgmt DC Plan - Kavitha Pimentel - 03/20/2017 3:54 PM CRM MARKETING EXECUTIVE Request to Send Referral Received request from Yesenia Stockton [facility] to send referral to the following facility: [facility] [address] [place] [address] Kavitha Pimentel Fiber Optic Technician For additional assistance please contact [facility] *[phone] * Case Mgmt DC Plan - Diana Scott RN - 03/20/2017 3:33 PM CRM MARKETING EXECUTIVE Case Management Progress Note NAME:Naren Mayfield :[birth year] AGE: 51 y.o. ADMISSION DATE: 03/09/2017 DAYS ADMITTED: LOS: 11 days Todays Date: 03/20/2017 Plan Ongoing DC planning - Dialysis Center update Interventions ? Support ? Info or Referral ? Discharge Planning Discharge Planning: OP HD or PD - NCM updated Danita at [place], [place], ph [phone] / fax [phone] on patient's discharge planning (likely [facility]PR, hopefully in [place], next week). NCM will contact [facility] again upon discharge so that they [...] Disposition ? Next Level Care THANG Mack, avionics supervisor Nurse Draw Off Worker [phone] * Case Mgmt DC Plan - Yesenia Stockton - 03/20/2017 2:58 PM CRM MARKETING EXECUTIVE Case Management Progress Note NAME:Naren Mayfield :[birth year] [...] pt appropriate, but prefers to go to [facility]. SW requested that the [facility] please send a referral for their consideration. [...] Disposition ? Next Level Care Yesenia Stockton, [facility] *6246 * Procedures (Immed Post or Bedside) - Rylee Arango APRN - 03/19/2017 12:17 PM CRM MARKETING EXECUTIVE Formatting of this note may be different from the original. Neuro Critical Care Transcranial Doppler Ultrasound Report Naren Mayfield [id number] 51 y.o. male Diagnosis: SAH Indication for [...] the neurosurgical team Staff name: Rylee Arango, MILK CONDENSER Date: 03/19/2017 Associated attestation - Derrell Bowers MD - 03/19/2017 1:54 PM CRM MARKETING EXECUTIVE Interval decrease in the MFV of left MCA, with slight increase in MFV of right MCAs. LRL 1.1; RLR 1.2. No sonographic evidence of vasospasm on this study. Derrell Bowers MD 03/19/2017 1:54 PM * Case Mgmt DC Plan - Yesenia Stockton - 03/18/2017 10:44 AM CRM MARKETING EXECUTIVE Case Management Progress Note NAME:Naren Mayfield :[birth year] [...] pt's positive UDS, SW has contacted [facility] and filed a report; family aware of SW's report. Pt has been accepted for [facility] housing in [place] and was getting ready to move into his home just when he experienced the SAH. SW unsure what the status of his home currently is, but has offered support if letters re:pt's medical situation are needed. ? Info or Referral ? Discharge Planning Discharge Planning: OP HD or PD Rehab consult has been placed. Pt likely returning to [facility] ( [facility]). SW will watch to consult [...] Disposition ? Next Level Care Yesenia Stockton, [facility] *6246 * Procedures (Immed Post or Bedside) - Rosie Tanner APRN - 03/18/2017 5: 56 AM CRM MARKETING EXECUTIVE Formatting of this note may be different from the original. Neuro Critical Care Transcranial Doppler Ultrasound Report Naren Mayfield [id number] 51 y.o. male Diagnosis: SAH Indication for [...] Derrell Bowers MD - 03/21/2017 6:12 PM CRM MARKETING EXECUTIVE Elevated LR on left side 3.3, however mean flow velocity of L MCA is < 130 cm/ s. Could be an early finding of subsequent vasospasm. Right LR 1.6, normal velocities on right side. Follow up study recommended. Derrell Bowers MD 03/19/2017 1:50 PM * Critical Results - Karen Escalante RN - 03/17/2017 6:01 AM CRM MARKETING EXECUTIVE Critical result or procedure called (document test and value, and read back): PO2 49 Time MD/GANG SUPERVISOR Notified: [id number] MD/GANG SUPERVISOR Name: Rosie Tanner APRN MD/GANG SUPERVISOR Response/Orders Given: Result thought to be in error. Orders given to redraw. * Procedures (Immed Post or Bedside) - Rosie Tanner APRN - 03/17/2017 5: 43 AM CRM MARKETING EXECUTIVE Formatting of this note may be different from the original. Neuro Critical Care Transcranial Doppler Ultrasound Report Naren Mayfield [id number] 51 y.o. male Diagnosis: SAH Indication for [...] to the neurosurgical team Staff name: Rosie Gutierrezroddy, MILK CONDENSER Date: 03/17/2017 Associated attestation - Deborah Lynn MD - 03/26/2017 2:57 PM CRM MARKETING EXECUTIVE Formatting of this note may be different from the original. ATTESTATION: No evidence of vasospasm on this study. I have interpreted the results. Staff name: Deborah Lynn MD Date: 03/26/2017 * Care Plan - Mary Amezquita RN - 03/14/2017 6:40 PM CRM MARKETING EXECUTIVE Problem: Infection, Risk of, Central Venous Catheter-Associated Bloodstream Infection Goal: Absence of CVC Associated Bloodstream infection Outcome: Goal Achieved Date Met: 03/14/17 Pt no longer has central line * Case Mgmt DC Plan - Yesenia Stockton - 03/14/2017 10:46 AM CRM MARKETING EXECUTIVE Case Management Progress Note NAME:Naren Mayfield :[birth year] [...] Disposition ? Next Level Care Yesenia Stockton, [facility] *6246 * Procedures (Immed Post or Bedside) - Elaine Nicholson APRN - 03/14/2017 6: 46 AM CRM MARKETING EXECUTIVE Formatting of this note may be different from the original. Neuro Critical Care Transcranial Doppler Ultrasound Report Naren Mayfield [id number] 51 y.o. male Diagnosis: SAH Indication for [...] Deborah Lynn MD - 03/26/2017 2:54 PM CRM MARKETING EXECUTIVE Formatting of this note may be different from the original. ATTESTATION: Right TCDs not able to be obtained. Left sided study shows no evidence of vasospasm. I have interpreted the results. Staff name: Deborah Lynn MD Date: 03/26/2017 * Care Coordination-Inpatient - Vernell Corbin MD - 03/13/2017 6:56 PM CRM MARKETING EXECUTIVE BRIEF VEEG NOTE First 30 min of EEG reviewed. Right PLEDs are seen. Will continue to monitor. 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 [...] with the aunt Torito. REJI did call [facility] to report the positive drug screen. Incident: [id number] ? Info or Referral ? Discharge Planning [...] Weems APRN - 03/13/2017 6: 16 AM CRM MARKETING EXECUTIVE Formatting of this note may be different from the original. [facility] Neuroscience ICU Transcranial Doppler Ultrasound Report Naren Mayfield [id number] 51 y.o. male Diagnosis:SAH Indication for TCD: [...] Deborah Lynn MD - 03/14/2017 1:39 PM CRM MARKETING EXECUTIVE Formatting of this note may be different from the original. ATTESTATION: Increased left LR concerning for vasospasm. No evidence of right-sided vasospasm on this study. I have interpreted the results. Staff name: Deborah Lynn MD Date: 03/14/2017 * Case Mgmt DC Plan - Yesenia Stockton - 03/12/2017 4:33 PM CRM MARKETING EXECUTIVE Case Management Progress Note NAME:Naren Mayfield :[birth year] [...] children; 6 of whom live in the [facility] area. ? Info or Referral none [...] Diana Scott RN - 03/12/2017 2:08 PM CRM MARKETING EXECUTIVE Case Management Progress Note NAME:Naren Mayfield :[birth year] AGE: 51 y.o. ADMISSION DATE: 03/09/2017 DAYS ADMITTED: LOS: 3 days Todays Date: 03/12/2017 Plan Ongoing DC planning - Outpatient dialysis Interventions ? Support ? Info or Referral ? Discharge Planning Discharge Planning: OP HD or PD * NCM confirmed with dialysis center that patient obtains his dialysis T-Th-Sat at [place], [place], ph [phone] / fax [phone]. * This center is not part of [facility]; NCM sent [facility] referral, facesheet, H&P, renal consult, and dialysis report as of 03/12/17 to [facility] via [facility] fax function. * [facility] will update [facility] as needed as DC planning evolves; patient may require an inpatient setting at discharge. ? Medication Needs ? Financial ? Legal ? Other Disposition ? Discharge Preparation ? Expected Discharge Expected Discharge Date: 03/22/17 ? Discharge Disposition ? Next Level Care THANG Mack, avionics supervisor Nurse Draw Off Worker [phone] * Procedures (Immed Post or Bedside) - Shannen Wilson APRN-NP - 03/12/2017 1: 10 AM CRM MARKETING EXECUTIVE Formatting of this note may be different from the original. Neuro Critical Care Transcranial Doppler Ultrasound Report Naren Mayfield [id number] 51 y.o. male Diagnosis: SAH Indication for [...] Deborah Lynn MD - 03/12/2017 11:55 AM CRM MARKETING EXECUTIVE Formatting of this note may be different from the original. ATTESTATION: No evidence of vasospasm on this study. I have interpreted the results. Staff name: Deborah Lynn MD Date: 03/12/2017 * Case Mgmt DC Plan - Vandana Arce - 03/11/2017 2:38 PM CRM MARKETING EXECUTIVE Formatting of this note may be different [...] admit, pt reportedly attending // HD at [facility], and was primarily transporting himself to/from HD appts. Emergency Contact No emergency contact information on file. Primary family support is pt's sister, Laura Mayfield -cell. Pt currently resides with his sister at [address] [place] [address]. DPOA None on file Transportation Does the [...] Laura, at the above listed address in [place], [place]. Per Sim, pt is primarily independent, [...] Yes Hemodialysis or Peritoneal Dialysis: Hemodialysis Location: [facility] attending: Saturday, , Saturday Does patient [...] ? Outpatient Therapy PT: No OT: No PRESENTATION MANAGER: No ? SNF/NH SNF: No NH: No [...] due to medical status Radha Arce LMSW, [facility] [id number] * Anesthesia Post Op Day 1 - Carmen Novak SRNA - 03/11/2017 9:57 AM CRM MARKETING EXECUTIVE Formatting of this note may be different from the original. Anesthesia Follow-Up Evaluation: Post-Procedure Day One Name: Naren Mayfield : 1965 Age: 51 y.o. 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 - Neuromonitoring, aneurysm clips, microscope, ICG, radiolucent buda Physical Assessment Height: 172.7 cm (68") Weight: 115.1 kg (253 lb 12 oz) Vital Signs (Last Filed in 24 hours) BP: 151/73 (03/100) Temp: 37 C (98.6 F) (03/11 400) Pulse: 77 (03/11 819) Respirations: 27 PER [...] Carmen Novak SRNA - 03/11/2017 9:53 AM CRM MARKETING EXECUTIVE Formatting of this note may be different [...] (03/11 0819) Respirations: 27 PER MINUTE (03/11 08) SpO2: 98 % (03/11 819) O2 Delivery: [...] Lyly Rogel MD - 03/09/2017 5:54 PM CRM MARKETING EXECUTIVE Neuro Interventional Immediate Post Procedure Note Date: 03/09/2017 Attending Physician: Lyly Rogel MD Tenant Selector(s): Ankita Lopez Cerebral Angiogram Time out performed: [...] Exam: Intubated, sedated Lyly Rogel MD Pager: [phone] * Procedures (Immed Post or Bedside) - Rosie Tanner APRN - 03/09/2017 4: 29 PM CRM MARKETING EXECUTIVE Formatting of this note may be different [...] RED BLOOD CELLS STAT 03/10/2017 10:29 AM CRM MARKETING EXECUTIVE (INTRAOP ONLY) IR ARTERIOGRAM NEURO Routine 03/10/2017 9:34 AM CRM MARKETING EXECUTIVE TRANSFUSE RBC'S NON-BLEEDING PT Routine 03/13/2017 1:10 PM CRM MARKETING EXECUTIVE TRANSFUSE RBC'S NON-BLEEDING PT Routine 03/13/2017 1:10 PM CRM MARKETING EXECUTIVE CULTURE-FUNGAL,OTHER Routine 03/14/2017 4:30 PM CRM MARKETING EXECUTIVE CULTURE-TB (AFB) Routine 03/14/2017 4:30 PM CRM MARKETING EXECUTIVE Name Priority Associated Diagnoses Order Schedule IR ARTERIOGRAM NEURO Routine ONE TIME for 1 Occurrences starting 03/11/2017 until 03/11/2017 as of this encounter Procedures Procedure Name Priority Date/Time Associated Diagnosis Comments CONSULT IV THERAPY TEAM Routine 03/19/2017 9:43 AM CRM MARKETING EXECUTIVE ECG-SCAN 03/12/2017 Results for this 10:05 AM CRM MARKETING EXECUTIVE procedure are in the results section. ECG-SCAN 03/12/2017 Results for this 10:05 AM CRM MARKETING EXECUTIVE procedure are in the results section. ECG-SCAN 03/12/2017 Results for this 10:05 AM CRM MARKETING EXECUTIVE procedure are in the results section. ECG-SCAN 03/12/2017 Results for this 10:05 AM CRM MARKETING EXECUTIVE procedure are in the results section. Rt pterional craniotomy 03/10/2017 Ruptured cerebral for clipping of MCA 8:00 AM CRM MARKETING EXECUTIVE aneurysm (HCC) aneurysm in this encounter Results * POC GLUCOSE (03/26/2017 1:47 PM) Component Value Ref Range Glucose, POC 103 (H) 70 - 100 MG/DL Specimen Performing Laboratory MAIN LAB [address] [place] [address] * HEMODIALYSIS INPATIENT (03/26/2017 1:10 PM) Narrative [...] Performing Laboratory [facility] MAIN [facility] [address] [place] [address] * BASIC METABOLIC PANEL (03/26/2017 4:20 AM) [...] Specimen Performing Laboratory [facility] MAIN [facility] [address] [place] [address] * POC GLUCOSE (03/26/2017 3:24 AM) Component Value Ref Range Glucose, POC 114 (H) 70 - 100 MG/DL Specimen Performing Laboratory [facility] [address] [place] [address] * POC GLUCOSE (03/25/2017 8:52 PM) Component Value Ref Range Glucose, POC 160 (H) 70 - 100 MG/DL Specimen Performing Laboratory [facility] [address] [place] [address] * POC GLUCOSE (03/25/2017 5:13 PM) Component Value Ref Range Glucose, POC 135 (H) 70 - 100 MG/DL Specimen Performing Laboratory [facility] [address] [place], [place] [id number] * POC GLUCOSE (03/25/2017 11:59 AM) Component Value Ref Range Glucose, POC 103 (H) 70 - 100 MG/DL Specimen Performing Laboratory [facility] [address] [place] [address] * POC GLUCOSE (03/25/2017 7:30 AM) Component Value Ref Range Glucose, POC 85 70 - 100 MG/DL Specimen Performing Laboratory [facility] [address] [place], [place] [id number] * CBC AND DIFF (03/25/2017 4:27 AM) [...] K/UL Specimen Performing Laboratory Blood MAIN LAB [address] [place] [address] * BASIC METABOLIC PANEL (03/25/2017 4:27 AM) [...] Pharmacist for questions. Specimen Performing Laboratory Blood [facility] [address] [place] [address] * POC GLUCOSE (03/25/2017 1:51 AM) Component Value Ref Range Glucose, POC 90 70 - 100 MG/DL Specimen Performing Laboratory [facility] [address] [place] [address] * POC GLUCOSE (03/24/2017 8:52 PM) Component Value Ref Range Glucose, POC 160 (H) 70 - 100 MG/DL Specimen Performing Laboratory MAIN LAB [address] [place] [address] * POC GLUCOSE (03/24/2017 4:55 PM) Component Value Ref Range Glucose, POC 105 (H) 70 - 100 MG/DL Specimen Performing Laboratory MAIN LAB [address] [place] [address] * POC GLUCOSE (03/24/2017 11:42 AM) Component Value Ref Range Glucose, POC 158 (H) 70 - 100 MG/DL Specimen Performing Laboratory MAIN LAB [address] [place] [address] * POC GLUCOSE (03/24/2017 7:52 AM) Component Value Ref Range Glucose, POC 102 (H) 70 - 100 MG/DL Specimen Performing Laboratory MAIN LAB [address] [place] [address] * BASIC METABOLIC PANEL (03/24/2017 4:13 AM) [...] Specimen Performing Laboratory Blood MAIN LAB [address] [place] [address] * PHOSPHORUS (03/24/2017 4:13 AM) Component Value Ref Range Phosphorus 6.5 (H) 2.0 - 4.0 MG/DL Specimen Performing Laboratory Blood MAIN LAB [address] [place] [address] * CBC AND DIFF (03/24/2017 4:13 AM) [...] K/UL Specimen Performing Laboratory Blood MAIN LAB [address] [place] [address] * POC GLUCOSE (03/24/2017 3:55 AM) Component Value Ref Range Glucose, POC 97 70 - 100 MG/DL Specimen Performing Laboratory MAIN LAB [address] [place] [address] * POC GLUCOSE (03/23/2017 9:09 PM) Component Value Ref Range Glucose, POC 143 (H) 70 - 100 MG/DL Specimen Performing Laboratory MAIN LAB [address] [place] [address] * POC GLUCOSE (03/23/2017 5:37 PM) Component Value Ref Range Glucose, POC 134 (H) 70 - 100 MG/DL Specimen Performing Laboratory MAIN LAB [address] [place] [address] * HEMODIALYSIS INPATIENT (03/23/2017 3:24 PM) Rose Navarro RN 03/23/20173:24 PM Arrived at patient room [facility] and treatment started at 1040 am. Vital signs stable. Patient tolerating treatment well. Treatment complete at 1444 pm. Vital signs stable. Kendrick removed from L AV fistula and site healed. Report given to unit nurse. Left patient in room [facility] in stable condition. * HEMODIALYSIS DATE (03/23/2017 3:24 PM) Rose Navarro RN 03/23/20173:24 PM Arrived at patient room [facility] and treatment started at 1040 am. Vital signs stable. Patient tolerating treatment well. Treatment complete at 1444 pm. Vital signs stable. Kendrick removed from L AV fistula and site healed. Report given to unit nurse. Left patient in room [facility] in stable condition. * POC GLUCOSE (03/23/2017 1:10 PM) Component Value Ref Range Glucose, POC 146 (H) 70 - 100 MG/DL Specimen Performing Laboratory MAIN LAB [address] [place] [address] * POC GLUCOSE (03/23/2017 8:13 AM) Component Value Ref Range Glucose, POC 105 (H) 70 - 100 MG/DL Specimen Performing Laboratory MAIN LAB [address] [place] [address] * CBC AND DIFF (03/23/2017 4:39 AM) [...] K/UL Specimen Performing Laboratory Blood MAIN LAB [address] [place], [place] [id number] * BLOOD GASES, ARTERIAL (03/23/2017 4:39 AM) Component Value Ref Range pH-Arterial 7.26 (L) 7.35 - 7.45 pCO2-Arterial 36 35 - 45 [facility] pO2-Arterial 74 (L) 80 - 100 [facility] Base Deficit-Arterial 10.6 MMOL/L O2 Sat-Arterial 92.5 (L) 95 - 99 % Ppzmgcjwlfz-EIH-Uds 16.1 (L) 21 - 28 MMOL/L Specimen Performing Laboratory Blood, arterial - Blood MAIN LAB [address] [place] [id number] * IONIZED CALCIUM (03/23/2017 4:39 AM) Component Value Ref Range Ionized Calcium 1.25 1.0 - 1.3 MMOL/L Specimen Performing Laboratory Blood MAIN LAB [address] [place] [id number] * PHOSPHORUS (03/23/2017 4:39 AM) Component Value Ref Range Phosphorus 8.6 (H) 2.0 - 4.0 MG/DL Specimen Performing Laboratory Blood MAIN LAB [address] [place] [address] * MAGNESIUM (03/23/2017 4:39 AM) Component Value Ref Range Magnesium 2.6 1.6 - 2.6 mg/dL Specimen Performing Laboratory Blood [facility]IN [facility] [address] [place] [address] * BASIC METABOLIC PANEL (03/23/2017 4:39 AM) [...] questions. Specimen Performing Laboratory Blood [facility]IN [facility] [address] [place] [address] * POC GLUCOSE (03/23/2017 4:23 AM) Component Value Ref Range Glucose, POC 90 70 - 100 MG/DL Specimen Performing Laboratory MAIN LAB [address] [place] [address] * POC GLUCOSE (03/22/2017 8:40 PM) Component Value Ref Range Glucose, POC 110 (H) 70 - 100 MG/DL Specimen Performing Laboratory MAIN LAB [address] [place], [place] [id number] * POC GLUCOSE (03/22/2017 6:14 PM) Component Value Ref Range Glucose, POC 212 (H) 70 - 100 MG/DL Specimen Performing Laboratory MAIN LAB [address] [place], [place] [phone] * CT HEAD WO CONTRAST (03/22/2017 5:59 [...] Interface, Radiant Results - 03/23/2017 2:35 AM CRM MARKETING EXECUTIVE CT HEAD HISTORY: Status post craniectomy, subarachnoid [...] 100 MG/DL Specimen Performing Laboratory MAIN LAB [address] [place] [address] * POC GLUCOSE (03/22/2017 8:07 AM) Component Value Ref Range Glucose, POC 128 (H) 70 - 100 MG/DL Specimen Performing Laboratory MAIN LAB [address] [place] [address] * CBC AND DIFF (03/22/2017 3:50 AM) [...] K/UL Specimen Performing Laboratory Blood [facility]IN LAB [address] [place] [address] * BLOOD GASES, ARTERIAL (03/22/2017 3:50 AM) Component Value Ref Range pH-Arterial 7.36 7.35 - 7.45 pCO2-Arterial 36 35 - 45 [facility] pO2-Arterial 83 80 - 100 [facility] Base Deficit-Arterial 4.2 MMOL/L O2 Sat-Arterial 96.1 95 - 99 % [facility] 20.9 (L) 21 - 28 MMOL/L Specimen Performing Laboratory Blood, arterial - Blood MAIN LAB [address] [place] [address] * IONIZED CALCIUM (03/22/2017 3:50 AM) Component Value Ref Range Ionized Calcium 1.21 1.0 - 1.3 MMOL/L Specimen Performing Laboratory Blood MAIN LAB [address] [place] [address] * PHOSPHORUS (03/22/2017 3:50 AM) Component Value Ref Range Phosphorus 6.3 (H) 2.0 - 4.0 MG/DL Specimen Performing Laboratory Blood MAIN LAB [address] [place] [address] * MAGNESIUM (03/22/2017 3:50 AM) Component Value Ref Range Magnesium 2.4 1.6 - 2.6 mg/dL Specimen Performing Laboratory Blood [facility]IN [facility] [address] [place] [address] * BASIC METABOLIC PANEL (03/22/2017 3:50 AM) [...] Performing Laboratory [facility] MAIN [facility] [address] [place] [address] * POC GLUCOSE (03/22/2017 3:38 AM) Component Value Ref Range Glucose, POC 155 (H) 70 - 100 MG/DL Specimen Performing Laboratory [facility] MAIN [facility] [address] [place] [address] * POC GLUCOSE (03/21/2017 9:12 PM) Component Value Ref Range Glucose, POC 153 (H) 70 - 100 MG/DL Specimen Performing Laboratory [facility] [address] [place] [address] * POC GLUCOSE (03/21/2017 6:09 PM) Component Value Ref Range Glucose, POC 163 (H) 70 - 100 MG/DL Specimen Performing Laboratory [facility] [address] [place] [address] * SWALLOW MOTION SERIES (03/21/2017 3:40 PM) [...] Interface, Radiant Results - 03/21/2017 4:44 PM CRM MARKETING EXECUTIVE SWALLOW MOTION SERIES CLINICAL INDICATION: Male, 51 [...] * HEMODIALYSIS INPATIENT (03/21/2017 1:02 PM) Narrative Hetla Roberts RN 03/21/20171:02 PM 0630 Arrived in Pt's RM [id number] with portable R/O and diaysis machine/supply cart. ICU staff cleaning Pt from BM. [id number] R/O rinsing/cool down cycle in progress. Pt [...] 03/21/20171:02 PM 0630 Arrived in Pt's RM [id number] with portable R/O and diaysis machine/supply cart. ICU staff cleaning Pt from BM. [id number] R/O rinsing/cool down cycle in progress. Pt repositioned by ICU staff X's [id number] Arterial line patent. Verified correct Pt,meds,procedure and [...] 100 MG/DL Specimen Performing Laboratory MAIN LAB [address] [place] [address] 85569 * POC GLUCOSE (03/21/2017 8:05 AM) Component Value Ref Range Glucose, POC 169 (H) 70 - 100 MG/DL Specimen Performing Laboratory MAIN LAB [address] [place] [address] 66468 * POC GLUCOSE (03/21/2017 3:42 AM) Component Value Ref Range Glucose, POC 150 (H) 70 - 100 MG/DL Specimen Performing Laboratory MAIN LAB [address] [place] [address] 09861 * CBC AND DIFF (03/21/2017 3:40 AM) [...] K/UL Specimen Performing Laboratory Blood MAIN LAB [address] [place] [address] * BLOOD GASES, ARTERIAL (03/21/2017 3:40 AM) Component Value Ref Range pH-Arterial 7.31 (L) 7.35 - 7.45 pCO2-Arterial 33 (L) 35 - 45 MMHG pO2-Arterial 65 (L) 80 - 100 MMHG Base Deficit-Arterial 9.1 MMOL/L O2 Sat-Arterial 89.9 (L) 95 - 99 % Sgustuscovz-KTF-Nxn 17.0 (L) 21 - 28 MMOL/L Specimen Performing Laboratory Blood, arterial - Blood MAIN LAB [address] [place] [address] 61520 * IONIZED CALCIUM (03/21/2017 3:40 AM) Component Value Ref Range Ionized Calcium 1.23 1.0 - 1.3 MMOL/L Specimen Performing Laboratory Blood MAIN LAB [address] [place] [address] 12717 * PHOSPHORUS (03/21/2017 3:40 AM) Component Value Ref Range Phosphorus 7.0 (H) 2.0 - 4.0 MG/DL Specimen Performing Laboratory Blood MAIN LAB [address] [place] [address] 34607 * MAGNESIUM (03/21/2017 3:40 AM) Component Value Ref Range Magnesium 2.5 1.6 - 2.6 mg/dL Specimen Performing Laboratory Blood [facility] [address] [place] [address] 7[address] * BASIC METABOLIC PANEL (03/21/2017 3:40 AM) [...] Pharmacist for questions. Specimen Performing Laboratory Blood [facility] [address] [place] [address] 41251 * POC GLUCOSE (03/20/2017 8:54 PM) Component Value Ref Range Glucose, POC 139 (H) 70 - 100 MG/DL Specimen Performing Laboratory [facility] [address] [place] [address] 46591 * POC GLUCOSE (03/20/2017 4:51 PM) Component Value Ref Range Glucose, POC 159 (H) 70 - 100 MG/DL Specimen Performing Laboratory MAIN LAB [address] [place] [address] 26797 * POC GLUCOSE (03/20/2017 11:57 AM) Component Value Ref Range Glucose, POC 143 (H) 70 - 100 MG/DL Specimen Performing Laboratory MAIN LAB [address] [place] [address] 41393 * POC GLUCOSE (03/20/2017 7:44 AM) Component Value Ref Range Glucose, POC 150 (H) 70 - 100 MG/DL Specimen Performing Laboratory MAIN LAB [address] [place] [address] 48397 * CBC AND DIFF (03/20/2017 4:28 AM) [...] K/UL Specimen Performing Laboratory Blood MAIN LAB [address] [place] [address] * BLOOD GASES, ARTERIAL (03/20/2017 4:28 AM) Component Value Ref Range pH-Arterial 7.38 7.35 - 7.45 pCO2-Arterial 37 35 - 45 MMHG pO2-Arterial 85 80 - 100 MMHG Base Deficit-Arterial 2.3 MMOL/L O2 Sat-Arterial 96.1 95 - 99 % Xklnqjuvfvp-ZAD-Osi 22.4 21 - 28 MMOL/L Specimen Performing Laboratory Blood, arterial - Blood MAIN LAB [address] [place], [place] [id number] * IONIZED CALCIUM (03/20/2017 4:28 AM) Component Value Ref Range Ionized Calcium 1.19 1.0 - 1.3 MMOL/L Specimen Performing Laboratory Blood MAIN LAB [address] [place], [place] [id number] * PHOSPHORUS (03/20/2017 4:28 AM) Component Value Ref Range Phosphorus 5.3 (H) 2.0 - 4.0 MG/DL Specimen Performing Laboratory Blood MAIN LAB [address] [place] [address] 84915 * MAGNESIUM (03/20/2017 4:28 AM) Component Value Ref Range Magnesium 2.2 1.6 - 2.6 mg/dL Specimen Performing Laboratory Blood MAIN LAB [address] [place] [address] * BASIC METABOLIC PANEL (03/20/2017 4:28 AM) [...] Specimen Performing Laboratory Blood MAIN LAB [address] [place] [address] * POC GLUCOSE (03/20/2017 3:23 AM) Component Value Ref Range Glucose, POC 150 (H) 70 - 100 MG/DL Specimen Performing Laboratory MAIN LAB [address] [place] [address] * POC GLUCOSE (03/19/2017 8:10 PM) Component Value Ref Range Glucose, POC 137 (H) 70 - 100 MG/DL Specimen Performing Laboratory MAIN LAB [address] [place] [address] * ABDOMEN AP ONLY (03/19/2017 7:37 PM) [...] Interface, Radiant Results - 03/20/2017 7:53 AM CRM MARKETING EXECUTIVE Portable AP abdomen CLINICAL HISTORY: Corpak verification. [...] MG/DL Specimen Performing Laboratory MAIN LAB [address] [place] [address] * ABDOMEN AP ONLY (03/19/2017 4:23 PM) [...] Interface, Radiant Results - 03/19/2017 4:39 PM CRM MARKETING EXECUTIVE ABDOMEN AP ONLY Indication: Corpak placement. Comparison: [...] MG/DL Specimen Performing Laboratory MAIN LAB [address] [place] [address] * POC GLUCOSE (03/19/2017 8:26 AM) Component Value Ref Range Glucose, POC 163 (H) 70 - 100 MG/DL Specimen Performing Laboratory MAIN LAB [address] [place] [address] * CBC AND DIFF (03/19/2017 4:18 AM) [...] K/UL Specimen Performing Laboratory Blood MAIN LAB [address] [place] [address] * BLOOD GASES, ARTERIAL (03/19/2017 4:18 AM) Component Value Ref Range pH-Arterial 7.34 (L) 7.35 - 7.45 pCO2-Arterial 37 35 - 45 MMHG pO2-Arterial 108 (H) 80 - 100 MMHG Base Deficit-Arterial 5.2 MMOL/L O2 Sat-Arterial 98.4 95 - 99 % Mmwtjjegcxq-AYX-Jpz 20.1 (L) 21 - 28 MMOL/L Specimen Performing Laboratory Blood, arterial - Blood MAIN LAB [address] [place] [address] * IONIZED CALCIUM (03/19/2017 4:18 AM) Component Value Ref Range Ionized Calcium 1.18 1.0 - 1.3 MMOL/L Specimen Performing Laboratory Blood MAIN LAB [address] [place] [address] 6[address] * PHOSPHORUS (03/19/2017 4:18 AM) Component Value Ref Range Phosphorus 6.2 (H) 2.0 - 4.0 MG/DL Specimen Performing Laboratory Blood MAIN LAB [address] [place] [address] 38767 * MAGNESIUM (03/19/2017 4:18 AM) Component Value Ref Range Magnesium 2.3 1.6 - 2.6 mg/dL Specimen Performing Laboratory Blood MAIN LAB [address] [place] [address] 06661 * BASIC METABOLIC PANEL (03/19/2017 4:18 AM) [...] Performing Laboratory Blood [facility] MAIN LAB [address] [place] [address] * POC GLUCOSE (03/19/2017 3:02 AM) Component Value Ref Range Glucose, POC 181 (H) 70 - 100 MG/DL Specimen Performing Laboratory [facility] MAIN LAB [address] [place] [address] * US DOPPLER VENOUS BILATERAL (03/19/2017 1:15 [...] Interface, Radiant Results - 03/19/2017 6:45 AM CRM MARKETING EXECUTIVE Bilateral lower extremity venous Doppler History: Immobility, [...] MG/DL Specimen Performing Laboratory MAIN LAB [address] [place] [address] * HEMODIALYSIS INPATIENT (03/18/2017 7:03 PM) Narrative Mihai Aly RN 03/18/20177:03 PM 8963 Status: Active Ordering user: Nir Timmons MD 03/17/17 1225 Ordering provider: Nir Timmons MD Authorized by: Nir Timmons MD Frequency: Once 03/17/17 1800 - 1 Occurrences Released by: Patti Garcia RN 03/17/17 3779 Questions: Date Hemodialysis to be performed: 03/18/2017 [...] Occurrences Released by: Patti Garcia RN 03/17/17 1534 Questions: Date Hemodialysis to be performed: 03/18/2017 [...] 100 MG/DL Specimen Performing Laboratory MAIN LAB [address] [place] [address] * POC GLUCOSE (03/18/2017 11:44 AM) Component Value Ref Range Glucose, POC 157 (H) 70 - 100 MG/DL Specimen Performing Laboratory MAIN LAB [address] [place] [address] 48539 * POC GLUCOSE (03/18/2017 10:03 AM) Component Value Ref Range Glucose, POC 194 (H) 70 - 100 MG/DL Specimen Performing Laboratory MAIN LAB [address] [place] [address] 29493 * POC GLUCOSE (03/18/2017 3:41 AM) Component Value Ref Range Glucose, POC 162 (H) 70 - 100 MG/DL Specimen Performing Laboratory MAIN LAB [address] [place] [address] 06814 * CBC AND DIFF (03/18/2017 3:40 AM) [...] K/UL Specimen Performing Laboratory Blood MAIN LAB [address] [place] [address] * BLOOD GASES, ARTERIAL (03/18/2017 3:40 AM) Component Value Ref Range pH-Arterial 7.28 (L) 7.35 - 7.45 pCO2-Arterial 33 (L) 35 - 45 MMHG pO2-Arterial 96 80 - 100 MMHG Base Deficit-Arterial 10.4 MMOL/L O2 Sat-Arterial 97.0 95 - 99 % Dgqwyahqaxw-OPB-Xld 16.1 (L) 21 - 28 MMOL/L Specimen Performing Laboratory Blood, arterial - Blood MAIN LAB [address] [place], [place] [id number] * IONIZED CALCIUM (03/18/2017 3:40 AM) Component Value Ref Range Ionized Calcium 1.22 1.0 - 1.3 MMOL/L Specimen Performing Laboratory Blood MAIN LAB [address] [place] [address] 16734 * PHOSPHORUS (03/18/2017 3:40 AM) Component Value Ref Range Phosphorus 9.2 (H) 2.0 - 4.0 MG/DL Specimen Performing Laboratory Blood MAIN LAB [address] [place] [address] 92079 * MAGNESIUM (03/18/2017 3:40 AM) Component Value Ref Range Magnesium 2.6 1.6 - 2.6 mg/dL Specimen Performing Laboratory Blood MAIN LAB [address] [place] [address] 02078 * BASIC METABOLIC PANEL (03/18/2017 3:40 AM) [...] Performing Laboratory Blood [facility] MAIN LAB [address] [place] [address] * ABDOMEN AP ONLY (03/17/2017 9:28 PM) [...] Interface, Radiant Results - 03/18/2017 8:23 AM CRM MARKETING EXECUTIVE Corpak placement. Technique: Single portable AP supine [...] 100 MG/DL Specimen Performing Laboratory MAIN LAB [address] [place] [address] 89947 * POC GLUCOSE (03/17/2017 4:51 PM) Component Value Ref Range Glucose, POC 153 (H) 70 - 100 MG/DL Specimen Performing Laboratory MAIN LAB [address] [place] [address] 30692 * POC GLUCOSE (03/17/2017 12:40 PM) Component Value Ref Range Glucose, POC 185 (H) 70 - 100 MG/DL Specimen Performing Laboratory MAIN LAB [address] [place] [address] 82987 * POC GLUCOSE (03/17/2017 9:07 AM) Component Value Ref Range Glucose, POC 147 (H) 70 - 100 MG/DL Specimen Performing Laboratory MAIN LAB [address] [place] [address] * CT CHEST W CONTRAST (03/17/2017 8:33 [...] Interface, Radiant Results - 03/17/2017 12:30 PM CRM MARKETING EXECUTIVE CT Chest Clinical Indication: Male, 51 years [...] 1.0 - 1.3 MMOL/L Specimen Performing Laboratory [facility] [address] [place] [address] * POC SODIUM (03/17/2017 5:29 AM) Component Value Ref Range Sodium-POC 135 (L) 137 - 147 MMOL/L Specimen Performing Laboratory [facility] [address] [place], [place] [id number] * POC POTASSIUM (03/17/2017 5:29 AM) Component Value Ref Range Potassium-POC 3.8 3.5 - 5.1 MMOL/L Specimen Performing Laboratory [facility] [address] [place], [place] [id number] * POC HEMATOCRIT (03/17/2017 5:29 AM) Component Value Ref Range Hemoglobin POC 9.2 (L) 13.5 - 16.5 GM/DL Hematocrit POC 27.0 (L) 40 - 50 % Specimen Performing Laboratory [facility] [address] [place], [place] [id number] * POC BLOOD GAS ARTERIAL (03/17/2017 5:29 AM) Component Value Ref Range PH-ART-POC 7.35 7.35 - 7.45 PWZ5-WWV-QAD 40 35 - 45 MMHG PO2-ART-POC 90 80 - 100 MMHG Base Def-ART-POC 4.0 MMOL/L O2 Sat-ART-POC 97.0 95 - 99 % Boutiuqvbck-KCR-UIQ 22.0 21 - 28 MMOL/L Specimen Performing Laboratory [facility] [address] [place], [place] [id number] * BLOOD GASES, ARTERIAL (03/17/2017 5:27 AM) Component Value Ref Range pH-Arterial 7.32 (L) 7.35 - 7.45 pCO2-Arterial 41 35 - 45 MMHG pO2-Arterial 108 (H) 80 - 100 MMHG Base Deficit-Arterial 4.7 MMOL/L O2 Sat-Arterial 98.0 95 - 99 % Rhjnrpjxvpj-BNF-Fvn 20.5 (L) 21 - 28 MMOL/L Specimen Performing Laboratory Blood, arterial - Blood MAIN LAB [address] [place] [address] * LIPASE (03/17/2017 4:13 AM) Component Value Ref Range Lipase 45 11 - 82 U/L Specimen Performing Laboratory MAIN LAB [address] [place] [address] * AMYLASE (03/17/2017 4:13 AM) Component Value Ref Range Amylase 86 24 - 100 U/L Specimen Performing Laboratory MAIN LAB [address] [place] [address] * CBC AND DIFF (03/17/2017 4:13 AM) [...] K/UL Specimen Performing Laboratory Blood MAIN LAB [address] [place] [address] * IONIZED CALCIUM (03/17/2017 4:13 AM) Component Value Ref Range Ionized Calcium 1.17 1.0 - 1.3 MMOL/L Specimen Performing Laboratory Blood MAIN LAB [address] [place] [address] 88519 * PHOSPHORUS (03/17/2017 4:13 AM) Component Value Ref Range Phosphorus 6.6 (H) 2.0 - 4.0 MG/DL Specimen Performing Laboratory Blood MAIN LAB [address] [place] [address] 05929 * MAGNESIUM (03/17/2017 4:13 AM) Component Value Ref Range Magnesium 2.4Comment: SLT HEMOLYSIS 1.6 - 2.6 mg/dL Specimen Performing Laboratory Blood MAIN LAB [address] [place] [address] 02339 * BASIC METABOLIC PANEL (03/17/2017 4:13 AM) [...] questions. Specimen Performing Laboratory Blood MAIN LAB [address] [place] [address] 25172 * POC GLUCOSE (03/17/2017 4:00 AM) Component Value Ref Range Glucose, POC 142 (H) 70 - 100 MG/DL Specimen Performing Laboratory MAIN LAB [address] [place] [address] 44210 * POC GLUCOSE (03/16/2017 10:18 PM) Component Value Ref Range Glucose, POC 147 (H) 70 - 100 MG/DL Specimen Performing Laboratory MAIN LAB [address] [place] [address] [place] [address] * CHEST SINGLE VIEW (03/16/2017 10:10 PM) [...] Interface, Radiant Results - 03/17/2017 11:49 AM CRM MARKETING EXECUTIVE CHEST SINGLE VIEW Clinical Indication: Male, 51 [...] Interface, Radiant Results - 03/17/2017 11:49 AM CRM MARKETING EXECUTIVE CHEST SINGLE VIEW Clinical Indication: Male, 51 [...] O2 Sat-Arterial 95.1 95 - 99 % Lozmjbpkono-QOE-Tto 23.4 21 - 28 MMOL/L Specimen Performing Laboratory Blood, arterial - Blood MAIN LAB [address] [place] [address] * HEMODIALYSIS INPATIENT (03/16/2017 6:13 PM) Narrative Mihai Aly RN 03/16/20176:13 PM 1642 Status: Active Ordering user: Tracie Mitchell MD 03/15/17 164 Ordering provider: Tracie Mitchell MD Authorized by: [...] bed. 1530 B/P in the 200s systolic. garage supervisor giving meds. UF increased to 3.5 liters [...] bed. 1530 B/P in the 200s systolic. garage supervisor giving meds. UF increased to 3.[address] Cardona. 1615 BP remains above 200 systolic. ICU nurse addressing B/P. 1745 Dialysis complete. UF total was 4 liters. Phi DAVE given report. * POC GLUCOSE (03/16/2017 5:18 PM) Component Value Ref Range Glucose, POC 127 (H) 70 - 100 MG/DL Specimen Performing Laboratory MAIN LAB [address] [place] [address] * CBC AND DIFF (03/16/2017 2:10 PM) [...] Specimen Performing Laboratory Blood MAIN LAB [address] [place] [address] * POC GLUCOSE (03/16/2017 11:56 AM) Component Value Ref Range Glucose, POC 193 (H) 70 - 100 MG/DL Specimen Performing Laboratory MAIN LAB [address] [place] [address] * BETA HYDROXYBUTYRATE (KETONES) (03/16/2017 11:20 AM) Component Value Ref Range Beta Hydroxybutyrate 0.1 <0.3 MMOL/L Comment: Beta hydroxybutyrate (BOHB) is the most abundant ketone (78%), followed by acetoacetate (20%) and acetone (2%). Measurement BOHB is recommended to assess ketones in DKA. Expected BOHB Results for DKA: Initial presentation high/increasing During treatment decreasing Resolved decreasing/normal Specimen Performing Laboratory Blood MAIN LAB [address] [place] [address] 52396 * LACTIC ACID(LACTATE) (03/16/2017 11:20 AM) Component Value Ref Range Lactic Acid 0.8 0.5 - 2.0 MMOL/L Specimen Performing Laboratory Blood [facility] MAIN [facility] [address] [place] [address] * POC GLUCOSE (03/16/2017 7:59 AM) Component Value Ref Range Glucose, POC 191 (H) 70 - 100 MG/DL Specimen Performing Laboratory [facility] MAIN [facility] [address] [place] [address] * CHEST SINGLE VIEW (03/16/2017 6:32 AM) [...] however, the tip is not in the npgio-lw-wdaj. The heart size remains enlarged. No pulmonary vascular congestion is identified. There is been interval increased left pleural effusion and left basilar consolidation. The right lung remains clear focal consolidation or pleural effusion. No pneumothorax is identified. Procedure Note Interface, Radiant Results - 03/16/2017 11:22 AM CRM MARKETING EXECUTIVE Exam: CHEST SINGLE VIEW History: left sided pleural effusion Comparison: Portable chest dated 03/14/2017.. Findings: The endotracheal tube and esophageal temperature probe have been removed. An enteric tube is again seen and can be followed below the diaphragm, however, the tip is not in the vunse-sq-wxcg. The heart size remains enlarged. No pulmonary [...] O2 Sat-Arterial 96.3 95 - 99 % Otzukaswzzh-ACI-Ysp 16.5 (L) 21 - 28 MMOL/L Specimen Performing Laboratory Blood, arterial - Blood MAIN LAB [address] [place] [address] * IONIZED CALCIUM (03/16/2017 5:07 AM) Component Value Ref Range Ionized Calcium 1.14 1.0 - 1.3 MMOL/L Specimen Performing Laboratory Blood MAIN LAB [address] [place] [address] * PHOSPHORUS (03/16/2017 5:07 AM) Component Value Ref Range Phosphorus 9.4 (H) 2.0 - 4.0 MG/DL Specimen Performing Laboratory Blood [facility] [address] [place] [address] * MAGNESIUM (03/16/2017 5:07 AM) Component Value Ref Range Magnesium 2.4 1.6 - 2.6 mg/dL Specimen Performing Laboratory Blood MAIN LAB [address] [place] [address] * BASIC METABOLIC PANEL (03/16/2017 5:07 AM) [...] Pharmacist for questions. Specimen Performing Laboratory Blood [facility] [address] [place], [place] [id number] * POC GLUCOSE (03/16/2017 4:57 AM) Component Value Ref Range Glucose, POC 162 (H) 70 - 100 MG/DL Specimen Performing Laboratory [facility] [address] [place], [place] [id number] * POC GLUCOSE (03/15/2017 8:24 PM) Component Value Ref Range Glucose, POC 182 (H) 70 - 100 MG/DL Specimen Performing Laboratory [facility] [address] [place], [place] [id number] * POC GLUCOSE (03/15/2017 5:26 PM) Component Value Ref Range Glucose, POC 163 (H) 70 - 100 MG/DL Specimen Performing Laboratory [facility] [address] [place], [place] [id number] * POC GLUCOSE (03/15/2017 12:10 PM) Component Value Ref Range Glucose, POC 162 (H) 70 - 100 MG/DL Specimen Performing Laboratory [facility] [address] [place], [place] [id number] * POC GLUCOSE (03/15/2017 8:19 AM) Component Value Ref Range Glucose, POC 163 (H) 70 - 100 MG/DL Specimen Performing Laboratory [facility] [address] [place] [address] * BLOOD GASES, ARTERIAL (03/15/2017 3:30 AM) Component Value Ref Range pH-Arterial 7.32 (L) 7.35 - 7.45 pCO2-Arterial 44 35 - 45 MMHG pO2-Arterial 145 (H) 80 - 100 MMHG Base Deficit-Arterial 3.7 MMOL/L O2 Sat-Arterial 99.5 (H) 95 - 99 % Tkbuqocdmlm-IKE-Czf 21.3 21 - 28 MMOL/L Specimen Performing Laboratory Blood, arterial - Blood [facility] [address] [place], [place] [id number] * IONIZED CALCIUM (03/15/2017 3:30 AM) Component Value Ref Range Ionized Calcium 1.16 1.0 - 1.3 MMOL/L Specimen Performing Laboratory Blood MAIN LAB [address] [place] [address] 41052 * PHOSPHORUS (03/15/2017 3:30 AM) Component Value Ref Range Phosphorus 7.5 (H) 2.0 - 4.0 MG/DL Specimen Performing Laboratory Blood MAIN LAB [address] [place] [address] 45324 * MAGNESIUM (03/15/2017 3:30 AM) Component Value Ref Range Magnesium 2.2 1.6 - 2.6 mg/dL Specimen Performing Laboratory Blood MAIN LAB [address] [place] [address] 7[address]19 * BASIC METABOLIC PANEL (03/15/2017 3:30 AM) [...] questions. Specimen Performing Laboratory Blood MAIN LAB [address] [place] [address] 26086 * POC GLUCOSE (03/15/2017 2:19 AM) Component Value Ref Range Glucose, POC 193 (H) 70 - 100 MG/DL Specimen Performing Laboratory MAIN LAB [address] [place] [address] * POC GLUCOSE (03/14/2017 8:04 PM) Component Value Ref Range Glucose, POC 172 (H) 70 - 100 MG/DL Specimen Performing Laboratory MAIN LAB [address] [place] [address] 97450 * POC GLUCOSE (03/14/2017 5:11 PM) Component Value Ref Range Glucose, POC 206 (H) 70 - 100 MG/DL Specimen Performing Laboratory [facility] MAIN [facility] [address] [place] [address] * CHEST SINGLE VIEW (03/14/2017 5:08 PM) [...] the diaphragm and projects out of the sbbmj-re-dsfv. Metallic wire is noted with tip overlying the tiara which may represent a guidewire. Persistent cardiomegaly without pulmonary venous congestion. Improvement in moderate left pleural effusion with adjacent left lung base consolidation. No pneumothorax. Procedure Note Interface, Radiant Results - 03/16/2017 12:03 AM CRM MARKETING EXECUTIVE Procedure: CHEST SINGLE VIEW Clinical Indication: Status post thoracentesis. Comparison: Chest radiograph March 12, 2017 FINDINGS: Single portable semiupright AP chest radiograph was obtained. Endotracheal tube remains in similar position. Exchange of gastric tube for enteric tube which courses below the diaphragm and projects out of the hbcvr-jq-gezl. Metallic wire is noted with tip overlying [...] 0.7 % Specimen Performing Laboratory MAIN LAB [address] [place] [address] 88273 * GRAM STAIN (03/14/2017 4:30 PM) Component Value Ref Range Battery Name GRAM STAIN Specimen Description PLEURAL FLUID L pleural space Special Requests NONE Gram Stain RARE NEUTROPHILS MANY RBC'S NO ORGANISMS SEEN Report Status FINAL 03/15/2017 Specimen Performing Laboratory Pleural Fluid MAIN LAB [address] [place] [address] 30056 * CULTURE-WOUND/TISSUE/FLUID(AEROBIC ONLY)W/SENSITIVITY (03/14/2017 4:30 PM) Component Value Ref Range Battery Name ROUTINE CULTURE Specimen Description PLEURAL FLUID L pleural space Special Requests NONE Direct Gram Stain RARE NEUTROPHILS MANY RBC'S NO ORGANISMS SEEN Culture NO GROWTH 5 DAYS Report Status FINAL 03/19/2017 Specimen Performing Laboratory Pleural Fluid MAIN LAB [address] [place] [address] 08968 * PLEURAL FLUID ALBUMIN (03/14/2017 4:30 PM) Component Value Ref Range Pleural Fluid Albumin 2.3Comment: Pleural fluid albumin gradient >1.2 g/ dL g/dL is suggestive of an exudate Specimen Performing Laboratory Pleural Fluid MAIN LAB [address] [place] [address] 68891 * PLEURAL FLUID TOTAL BILIRUBIN (03/14/2017 4:30 PM) Component Value Ref Range Pleural Fluid Total 2.4 mg/dL Bilirubin Comment: Pleural fluid to serum bilirubin ratio of 0.6 suggests the presence of an exudate Specimen Performing Laboratory Pleural Fluid MAIN LAB [address] [place] [address] 90197 * PLEURAL FLUID GLUCOSE (03/14/2017 4:30 PM) Component Value Ref Range Pleural Fluid Glucose 160 (H) 70 - 100 mg/dL Comment: Glucose <60 mg/dL associated with parapneumonic effusion, tuberculosis, malignancy, empyema, and rheumatoid disease Specimen Performing Laboratory Pleural Fluid MAIN LAB [address] [place] [address] 64045 * PLEURAL FLUID LACTATE DEHYDROGENASE (03/14/2017 4:30 PM) Component Value Ref Range Pleural Fluid Lactate 255 (H)Comment: Higher levels suggestive of 67 - 140 U/L Dehydrogenase exudate Specimen Performing Laboratory Pleural Fluid MAIN LAB [address] [place] [address]457 * PLEURAL FLUID PH (03/14/2017 4:30 PM) Component Value Ref Range Pleural Fluid Ph 7.70 (H) 7.60 - 7.66 Specimen Performing Laboratory Pleural Fluid MAIN LAB [address] [place] [address] 07799 * PLEURAL FLUID TRIGLYCERIDES (03/14/2017 4:30 PM) Component Value Ref Range Pleural Fluid 20 mg/dL Triglycerides Comment: Triglycerides >110 mg/dL is suggestive of a chylothorax. Triglycerides <50 mg/dL is suggestive of pseudochylothorax. Specimen Performing Laboratory Pleural Fluid MAIN LAB [address] [place] [address] 45565 * PLEURAL FLUID TOTAL PROTEIN (03/14/2017 4:30 PM) Component Value Ref Range Pleural Fluid Total 3.8 (H)Comment: Serum to pleural fluid protein <1.1 g/ dL Protein gradient >3.1 g/dL is suggestive of an exudate Specimen Performing Laboratory Pleural Fluid [facility] [address] [place] [address] * CELL COUNT W/DIFF-FLUIDS (03/14/2017 4:30 PM) Component Value Ref Range White Blood Cells,Fluid 160 /UL Red Blood Cells,Fluid 30312 /UL Segmented Neutrophils, 30 % Fluid Lymphocytes,Fluid [...] Laboratory Fluid - Pleural Fluid MAIN LAB [address] [place] [address] 27070 * POC GLUCOSE (03/14/2017 12:25 PM) Component Value Ref Range Glucose, POC 161 (H) 70 - 100 MG/DL Specimen Performing Laboratory MAIN LAB [address] [place], [place] [id number] * HEMODIALYSIS INPATIENT (03/14/2017 10:41 AM) Rose Covarrubias RN 03/14/2017 10:41 AM stocking and box shop supervisor in patient's room. Patient sedated and on [...] AM) Rose Covarrubias RN 03/14/2017 10:41 AM stocking and box shop supervisor in patient's room. Patient sedated and on [...] returned manually to patient. Machine exchanged. * NON-PLUMBER AND TINNER CYTOLOGY (BODY FLUIDS/TISSUE) (03/14/2017 8:49 AM) Component Value Ref Range Cytology [facility] [email or web address] Department of Pathology and Laboratory Medicine [address] [place] [address] Surgical Pathology Office: [phone] CYTOLOGY REPORT NAME: NAREN MAYFIELD CYTOLOGY #: [id number] MR #: [id number] ALT ID #: BILLING #: [id number] LOCATION: [facility] DATE OF PROCEDURE: 03/14/2017 AGE: 51 SEX: [...] 70 - 100 MG/DL Specimen Performing Laboratory [facility] [address] [place] [address] * BLOOD GASES, ARTERIAL (03/14/2017 5:00 AM) Component Value Ref Range pH-Arterial 7.26 (L) 7.35 - 7.45 pCO2-Arterial 41 35 - 45 MMHG pO2-Arterial 109 (H) 80 - 100 MMHG Base Deficit-Arterial 8.2 MMOL/L O2 Sat-Arterial 98.0 95 - 99 % Nkwitqkbqje-LOR-Atc 17.8 (L) 21 - 28 MMOL/L Specimen Performing Laboratory Blood, arterial - Blood [facility] [address] [place] [address] * IONIZED CALCIUM (03/14/2017 5:00 AM) Component Value Ref Range Ionized Calcium 1.11 1.0 - 1.3 MMOL/L Specimen Performing Laboratory Blood [facility] [address] [place] [address] * LDH-LACTATE DEHYDROGENASE (03/14/2017 3:15 AM) Component Value Ref Range Lactate Dehydrogenase 225 (H) 100 - 210 U/L Specimen Performing Laboratory [facility] [address] [place] [address] * CHEM 7 ADD ON (03/14/2017 3:15 AM) Component Value Ref Range Total Protein 7.2 6.0 - 8.0 G/DL Total Bilirubin 0.5 0.3 - 1.2 MG/DL Albumin 3.6 3.5 - 5.0 G/DL Alk Phosphatase 71 25 - 110 U/L AST (SGOT) 21 7 - 40 U/L ALT (SGPT) 3 (L) 7 - 56 U/L Specimen Performing Laboratory MA[facility] [address] [place], [place] [id number] * LIPASE (03/14/2017 3:15 AM) Component Value Ref Range Lipase 26 11 - 82 U/L Specimen Performing Laboratory MAIN [facility] [address] [place], [place] [id number] * AMYLASE (03/14/2017 3:15 AM) Component Value Ref Range Amylase 115 (H) 24 - 100 U/L Specimen Performing Laboratory [facility] [address] [place] [address] * LIPID PROFILE (03/14/2017 3:15 AM) Component [...] less than 130 mg/dL. Specimen Performing Laboratory [facility] [address] [place], [place] [id number] * PHOSPHORUS (03/14/2017 3:15 AM) Component Value Ref Range Phosphorus 9.1 (H) 2.0 - 4.0 MG/DL Specimen Performing Laboratory Blood [facility] [address] [place], [place] [id number] * MAGNESIUM (03/14/2017 3:15 AM) Component Value Ref Range Magnesium 2.7 (H) 1.6 - 2.6 mg/dL Specimen Performing Laboratory Blood [facility] [address] [place] [address] * BASIC METABOLIC PANEL (03/14/2017 3:15 AM) [...] questions. Specimen Performing Laboratory Blood [facility] [address] [place] [address] * OSMOLALITY (03/14/2017 3:15 AM) Component Value Ref Range Osmolality 312 (H) 280 - 307 MOSMOL/KG Specimen Performing Laboratory Blood [facility]IN [facility] [address] [place] [address] * FIBRINOGEN (03/14/2017 3:15 AM) Component Value Ref Range Fibrinogen 693 (H) 200 - 400 MG/DL Specimen Performing Laboratory Blood [facility]IN [facility] [address] [place] [address] * CBC AND DIFF (03/14/2017 3:15 AM) [...] - 0.20 K/UL Specimen Performing Laboratory Blood [facility] [address] [place], [place] [id number] * POC GLUCOSE (03/14/2017 3:11 AM) Component Value Ref Range Glucose, POC 82 70 - 100 MG/DL Specimen Performing Laboratory [facility] [address] [place] [address] * POC GLUCOSE (03/13/2017 9:40 PM) Component Value Ref Range Glucose, POC 182 (H) 70 - 100 MG/DL Specimen Performing Laboratory [facility] [address] [place] [address] * POC GLUCOSE (03/13/2017 4:45 PM) Component Value Ref Range Glucose, POC 152 (H) 70 - 100 MG/DL Specimen Performing Laboratory [facility] [address] [place] [address] * CBC (03/13/2017 4:25 PM) Component Value [...] - 11 FL Specimen Performing Laboratory Blood [facility] [address] [place] [address] * TEG WITH KAOLIN (03/13/2017 4:25 PM) [...] Laboratory [facility] [address] [place] [address] * CT ABD/PELV WO CONTRAST (03/13/2017 12:27 [...] Interface, Radiant Results - 03/13/2017 4:39 PM CRM MARKETING EXECUTIVE CT ABDOMEN AND PELVIS Clinical Indication: Male, [...] Screen NEG Electronic Crossmatch YES Unit Number [id number] Blood Component Type RBC,ADSOL,LEUKO REDUCED Unit Division 0 Status OF Unit TRANSFUSED Transfusion Status OK TO TRANSFUSE Crossmatch Result COMPATIBLE,ELECTRONIC Specimen Performing Laboratory Blood MAIN [facility] [address] [place] [address] * C DIFFICILE BY PCR (03/13/2017 10:30 AM) Component Value Ref Range Battery Name C DIFFICILE PCR Specimen Description FECES Special Requests NONE C. Difficile Toxin B PCR NEGATIVE-wait 7 days to repeat test Report Status FINAL 03/14/2017 Specimen Performing Laboratory Feces MAIN [facility] [address] [place] [address] * POC GLUCOSE (03/13/2017 10:24 AM) Component Value Ref Range Glucose, POC 152 (H) 70 - 100 MG/DL Specimen Performing Laboratory MAIN [facility] [address] [place] [address] * CT BRAIN PERF (03/13/2017 9:04 AM) [...] Interface, Radiant Results - 03/13/2017 9:44 AM CRM MARKETING EXECUTIVE EXAM: CTA HEAD AND CT PERFUSION HISTORY: [...] Interface, Radiant Results - 03/13/2017 9:44 AM CRM MARKETING EXECUTIVE EXAM: CTA HEAD AND CT PERFUSION HISTORY: [...] O2 Sat-Arterial 98.7 95 - 99 % Ptczuojbgkl-XWF-Iny 21.9 21 - 28 MMOL/L Specimen Performing Laboratory Blood, arterial - Blood [facility] [address] [place] [address] * BLOOD GASES, ARTERIAL (03/13/2017 3:44 AM) Component Value Ref Range pH-Arterial 7.37 7.35 - 7.45 pCO2-Arterial 42 35 - 45 MMHG pO2-Arterial 99 80 - 100 MMHG Base Deficit-Arterial 1.1 MMOL/L O2 Sat-Arterial 97.3 95 - 99 % Hdqcftkxrrj-FVF-Kqm 23.5 21 - 28 MMOL/L Specimen Performing Laboratory Blood, arterial - Blood [facility] [address] [place] [address] * IONIZED CALCIUM (03/13/2017 3:44 AM) Component Value Ref Range Ionized Calcium 1.11 1.0 - 1.3 MMOL/L Specimen Performing Laboratory Blood [facility]IN [facility] [address] [place] [address] * PHOSPHORUS (03/13/2017 3:44 AM) Component Value Ref Range Phosphorus 6.6 (H) 2.0 - 4.0 MG/DL Specimen Performing Laboratory Blood [facility]IN [facility] [address] [place] [address] * MAGNESIUM (03/13/2017 3:44 AM) Component Value Ref Range Magnesium 2.2 1.6 - 2.6 mg/dL Specimen Performing Laboratory Blood [facility] [address] [place] [address] * CBC AND DIFF (03/13/2017 3:44 AM) [...] Specimen Performing Laboratory Blood [facility]IN [facility] [address] [place] [address] * BASIC METABOLIC PANEL (03/13/2017 3:44 AM) [...] Specimen Performing Laboratory Blood [facility]IN [facility] [address] [place] [address] * POC GLUCOSE (03/13/2017 3:42 AM) Component Value Ref Range Glucose, POC 129 (H) 70 - 100 MG/DL Specimen Performing Laboratory MAIN [facility] [address] [place] [address] * POC GLUCOSE (03/12/2017 11:25 PM) Component Value Ref Range Glucose, POC 197 (H) 70 - 100 MG/DL Specimen Performing Laboratory MAIN [facility] [address] [place] [address] * POC GLUCOSE (03/12/2017 5:14 PM) Component Value Ref Range Glucose, POC 139 (H) 70 - 100 MG/DL Specimen Performing Laboratory MAIN [facility] [address] [place] [address] * HEMODIALYSIS INPATIENT (03/12/2017 4:52 PM) Narrative [...] expected fluid removed from pt during tx. Amanda RN updated on pt. Pt remains in room [id number] at this time. * HEMODIALYSIS DATE (03/12/2017 [...] expected fluid removed from pt during tx. Amanda RN updated on pt. Pt remains in room [id number] at this time. * TRANSFUSE RBC'S NON-BLEEDING PT (03/12/2017 1:48 PM) Specimen Performing Laboratory Blood * TRANSFUSE RBC'S NON-BLEEDING PT (03/12/2017 1:48 PM) Specimen Performing Laboratory Blood * POC GLUCOSE (03/12/2017 11:49 AM) Component Value Ref Range Glucose, POC 165 (H) 70 - 100 MG/DL Specimen Performing Laboratory [facility] [address] [place] [address] * ABDOMEN AP ONLY (03/12/2017 11:08 AM) [...] Interface, Radiant Results - 03/12/2017 11:36 AM CRM MARKETING EXECUTIVE Supine abdomen CLINICAL HISTORY: Post feeding tube [...] Sat-Arterial 92.3 (L) 95 - 99 % Omkrxdzvevl-ZQM-Ust 20.9 (L) 21 - 28 MMOL/L Specimen Performing Laboratory Blood, arterial - Blood [facility] [address] [place] [address] * ECG-SCAN (03/12/2017 10:05 AM) Narrative Ordered [...] level <7%. Specimen Performing Laboratory [facility] [address] [place] [address] * BLOOD GASES, ARTERIAL (03/12/2017 3:44 AM) Component Value Ref Range pH-Arterial 7.35 7.35 - 7.45 pCO2-Arterial 42 35 - 45 MMHG pO2-Arterial 132 (H) 80 - 100 MMHG Base Deficit-Arterial 2.1 MMOL/L O2 Sat-Arterial 98.9 95 - 99 % Tekggkktfhq-SBH-Llx 22.7 21 - 28 MMOL/L Specimen Performing Laboratory Blood, arterial - Blood [facility] [address] [place] [address] * IONIZED CALCIUM (03/12/2017 3:44 AM) Component Value Ref Range Ionized Calcium 1.14 1.0 - 1.3 MMOL/L Specimen Performing Laboratory Blood [facility] [address] [place] [address] * PHOSPHORUS (03/12/2017 3:44 AM) Component Value Ref Range Phosphorus 8.7 (H) 2.0 - 4.0 MG/DL Specimen Performing Laboratory Blood [facility]IN [facility] [address] [place] [address] * MAGNESIUM (03/12/2017 3:44 AM) Component Value Ref Range Magnesium 2.2 1.6 - 2.6 mg/dL Specimen Performing Laboratory Blood [facility]IN [facility] [address] [place] [address] * CBC AND DIFF (03/12/2017 3:44 AM) [...] Performing Laboratory Blood [facility] [address] [place] [address] * BASIC METABOLIC PANEL (03/12/2017 3:44 AM) [...] Performing Laboratory Blood [facility] [address] [place] [address] * CHEST SINGLE VIEW (03/12/2017 3:40 AM) [...] the diaphragm and projects out of the vmnqb-kp-gjmz. Persistent cardiomegaly without pulmonary venous congestion. Large left pleural effusion with adjacent consolidation. No pneumothorax. Procedure Note Interface, Radiant Results - 03/12/2017 11:09 AM CRM MARKETING EXECUTIVE Procedure: CHEST SINGLE VIEW Clinical Indication: Pleural effusion. Comparison: Chest radiograph March 10, 2017 FINDINGS: Single portable supine AP chest radiograph was obtained. Endotracheal tube with tip well above the tiara at the level of the clavicles. Gastric tube courses below the diaphragm and projects out of the pxpsm-pu-jyci. Persistent cardiomegaly without pulmonary venous congestion. Large [...] Interface, Radiant Results - 03/11/2017 5:03 PM CRM MARKETING EXECUTIVE EXAM: CT HEAD HISTORY: , craniectomy last [...] Range BSA 2.35 m2 CV ECHO PV BICYCLE ASSEMBLER TENZIN Anand LVIDD 5.9 4.2 - 5.9 [...] Gann RN 03/11/20172:41 PM 0900 Arrived in [facility] to set up for dialysis. Assessment completed and documented. Care of pt, respirator and all lines remains with his primary PATIENT CARE SECRETARYTENZIN Jean. Left AVF assessed and found to [...] and paper tape. Report given to primary PATIENT CARE SECRETARYTENZIN Jean. * TROPONIN-I (03/11/2017 8:43 AM) Component Value Ref Range Troponin-I 0.17 (H) 0.0 - 0.05 NG/ML Specimen Performing Laboratory Blood [facility]IN [facility] [address] [place] [address] * TROPONIN-I (03/11/2017 6:07 AM) Component Value Ref Range Troponin-I 0.16 (H) 0.0 - 0.05 NG/ML Specimen Performing Laboratory Blood [facility] [address] [place] [address] * IONIZED CALCIUM (03/11/2017 3:55 AM) Component Value Ref Range Ionized Calcium 1.05 1.0 - 1.3 MMOL/L Specimen Performing Laboratory MAIN [facility] [address] [place], [place] [id number] * TROPONIN-I (03/11/2017 3:55 AM) Component Value Ref Range Troponin-I 0.15 (H) 0.0 - 0.05 NG/ML Specimen Performing Laboratory [facility] [address] [place] [address] * BLOOD GASES, ARTERIAL (03/11/2017 3:55 AM) Component Value Ref Range pH-Arterial 7.36 7.35 - 7.45 pCO2-Arterial 41 35 - 45 MMHG pO2-Arterial 135 (H) 80 - 100 MMHG Base Deficit-Arterial 2.3 MMOL/L O2 Sat-Arterial 99.2 (H) 95 - 99 % Vdgvrbwvsik-POW-Mgd 22.5 21 - 28 MMOL/L Specimen Performing Laboratory Blood, arterial - Blood [facility] [address] [place], [place] [id number] * PHOSPHORUS (03/11/2017 3:55 AM) Component Value Ref Range Phosphorus 9.1 (H) 2.0 - 4.0 MG/DL Specimen Performing Laboratory Blood [facility]IN [facility] [address] [place], [place] [id number] * MAGNESIUM (03/11/2017 3:55 AM) Component Value Ref Range Magnesium 2.1 1.6 - 2.6 mg/dL Specimen Performing Laboratory Blood MAIN [facility] [address] [place] [id number] * CBC AND DIFF (03/11/2017 3:55 AM) [...] Specimen Performing Laboratory Blood [facility]IN [facility] [address] [place] [id number] * BASIC METABOLIC PANEL (03/11/2017 3:55 AM) [...] Performing Laboratory Blood [facility] [address] [place] [address] * TROPONIN-I (03/11/2017 12:50 AM) Component Value Ref Range Troponin-I 0.13 (H) 0.0 - 0.05 NG/ML Specimen Performing Laboratory [facility] [address] [place] [address] * BLOOD GASES, ARTERIAL (03/11/2017 12:50 AM) Component Value Ref Range pH-Arterial 7.36 7.35 - 7.45 pCO2-Arterial 41 35 - 45 MMHG pO2-Arterial 140 (H) 80 - 100 MMHG Base Deficit-Arterial 2.1 MMOL/L O2 Sat-Arterial 99.3 (H) 95 - 99 % Efjbeieynai-YDX-Mcp 22.7 21 - 28 MMOL/L Specimen Performing Laboratory Blood, arterial - Blood [facility] [address] [place] [id number] * FLUORO MOBILE IN OR (03/10/2017 10:18 [...] angiography is performed to evaluate the vasculature. [employer]LEMENT[employer]CHO[employer] ART TEACHER. Rohit BURR MACHINE OPERATOR. David PGY-6 PROCEDURE. 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 Patient required emergent reoperation for neurologic change. CT perfusion demonstrates prolonged mean transit times involving the inferior division of the right MCA. Intraoperative angiography is performed to evaluate the vasculature. ELEMENTARY SCHO[employer] ART TEACHER. Rohit BURR MACHINE OPERATOR. David PGY-6 PROCEDURE. Intraoperative angiography right internal [...] CT and then to OR for second time.Structural Welder contacted and said patient may be done the next morning.Unit nurse also said patient may still have needles from outpatient dialysis unit in fistula. Patient already in OR. * POC IONIZED CALCIUM (03/10/2017 9:03 PM) Component Value Ref Range Ionized Calcium-POC 0.98 (L) 1.0 - 1.3 MMOL/L Specimen Performing Laboratory MAIN LAB [address] [place], [place] [id number] * POC SODIUM (03/10/2017 9:03 PM) Component Value Ref Range Sodium-POC 134 (L) 137 - 147 MMOL/L Specimen Performing Laboratory MAIN [facility] [address] [place], [place] [id number] * POC POTASSIUM (03/10/2017 9:03 PM) Component Value Ref Range Potassium-POC 4.0 3.5 - 5.1 MMOL/L Specimen Performing Laboratory [facility] [address] [place], [place] [id number] * POC HEMATOCRIT (03/10/2017 9:03 PM) Component Value Ref Range Hemoglobin POC 9.5 (L) 13.5 - 16.5 GM/DL Hematocrit POC 28.0 (L) 40 - 50 % Specimen Performing Laboratory [facility]IN [facility] [address] [place], [place] [id number] * POC BLOOD GAS ARTERIAL (03/10/2017 9:03 PM) Component Value Ref Range PH-ART-POC 7.34 (L) 7.35 - 7.45 QVG5-IAB-KIP 44 35 - 45 MMHG PO2-ART-POC 69 (L) 80 - 100 MMHG Base Def-ART-POC 2.0 MMOL/L O2 Sat-ART-POC 92.0 (L) 95 - 99 % Fuvzgmyayoc-PZX-UIT 23.7 21 - 28 MMOL/L Specimen Performing Laboratory MAIN [facility] [address] [place], [place] [id number] * TROPONIN-I (03/10/2017 8:50 PM) Component Value Ref Range Troponin-I 0.16 (H) 0.0 - 0.05 NG/ML Specimen Performing Laboratory [facility] [address] [place], [place] [id number] * PHOSPHORUS (03/10/2017 8:50 PM) Component Value Ref Range Phosphorus 8.1 (H) 2.0 - 4.0 MG/DL Specimen Performing Laboratory MAIN [facility] [address] [place] [address] * CBC (03/10/2017 8:50 PM) Component Value [...] 11 FL Specimen Performing Laboratory MAIN LAB [address] [place] [address] * BASIC METABOLIC PANEL (03/10/2017 8:50 PM) [...] for questions. Specimen Performing Laboratory MAIN LAB [address] [place] [address] * PTT (APTT) (03/10/2017 8:50 PM) Component Value Ref Range APTT 29.8Comment: NOTE NEW REFERENCE RANGES 21.0 - 39.0 SEC Specimen Performing Laboratory Blood [facility] [address] [place] [address] * PROTIME INR (PT) (03/10/2017 8:50 PM) Component Value Ref Range INR 1.3 (H) 0.8 - 1.2 Specimen Performing Laboratory Blood [facility]IN [facility] [address] [place] [address] * CT BRAIN PERF (03/10/2017 8:35 PM) [...] Interface, Radiant Results - 03/10/2017 9:56 PM CRM MARKETING EXECUTIVE EXAM: CTA HEAD AND NECK, CTA BRAIN [...] Interface, Radiant Results - 03/10/2017 9:56 PM CRM MARKETING EXECUTIVE EXAM: CTA HEAD AND NECK, CTA BRAIN [...] 1.3 MMOL/L Specimen Performing Laboratory [facility] [address] [place] [address] * POC SODIUM (03/10/2017 5:00 PM) Component Value Ref Range Sodium-POC 135 (L) 137 - 147 MMOL/L Specimen Performing Laboratory [facility]IN [facility] [address] [place] [address] * POC POTASSIUM (03/10/2017 5:00 PM) Component Value Ref Range Potassium-POC 4.0 3.5 - 5.1 MMOL/L Specimen Performing Laboratory [facility]IN [facility] [address] [place] [address] * POC HEMATOCRIT (03/10/2017 5:00 PM) Component Value Ref Range Hemoglobin POC 8.5 (L) 13.5 - 16.5 GM/DL Hematocrit POC 25.0 (L) 40 - 50 % Specimen Performing Laboratory [facility]IN [facility] [address] [place] [address] * POC BLOOD GAS ARTERIAL (03/10/2017 5:00 PM) Component Value Ref Range PH-ART-POC 7.40 7.35 - 7.45 FMY8-HCR-ESV 37 35 - 45 MMHG PO2-ART-POC 76 (L) 80 - 100 MMHG Base Def-ART-POC 2.0 MMOL/L O2 Sat-ART-POC 95.0 95 - 99 % Pwxfpqgoyvq-YGH-BDT 23.0 21 - 28 MMOL/L Specimen Performing Laboratory MAIN LAB [address] [place] [address] * POC IONIZED CALCIUM (03/10/2017 2:30 PM) Component Value Ref Range Ionized Calcium-POC 0.97 (L) 1.0 - 1.3 MMOL/L Specimen Performing Laboratory MAIN LAB [address] [place] [address] * POC SODIUM (03/10/2017 2:30 PM) Component Value Ref Range Sodium-POC 135 (L) 137 - 147 MMOL/L Specimen Performing Laboratory [facility] [address] [place] [address] * POC POTASSIUM (03/10/2017 2:30 PM) Component Value Ref Range Potassium-POC 4.0 3.5 - 5.1 MMOL/L Specimen Performing Laboratory [facility] [address] [place] [address] * POC HEMATOCRIT (03/10/2017 2:30 PM) Component Value Ref Range Hemoglobin POC 8.8 (L) 13.5 - 16.5 GM/DL Hematocrit POC 26.0 (L) 40 - 50 % Specimen Performing Laboratory [facility] [address] [place] [address] * POC BLOOD GAS ARTERIAL (03/10/2017 2:30 PM) Component Value Ref Range PH-ART-POC 7.42 7.35 - 7.45 RRW3-MQD-ZFB 37 35 - 45 MMHG PO2-ART-POC 72 (L) 80 - 100 MMHG Base Ex-ART-POC 0.0 MMOL/L O2 Sat-ART-POC 95.0 95 - 99 % Lbjitpneuxh-OPM-JUV 24.0 21 - 28 MMOL/L Specimen Performing Laboratory [facility] [address] [place] [address] * POC GLUCOSE (03/10/2017 12:10 PM) Component Value Ref Range Glucose, POC 90 70 - 100 MG/DL Specimen Performing Laboratory MAIN LAB [address] [place] [address] * POC IONIZED CALCIUM (03/10/2017 11:29 AM) Component Value Ref Range Ionized Calcium-POC 1.01 1.0 - 1.3 MMOL/L Specimen Performing Laboratory MAIN LAB [address] [place] [address] * POC SODIUM (03/10/2017 11:29 AM) Component Value Ref Range Sodium-POC 135 (L) 137 - 147 MMOL/L Specimen Performing Laboratory MAIN LAB [address] [place] [address] * POC POTASSIUM (03/10/2017 11:29 AM) Component Value Ref Range Potassium-POC 3.5 3.5 - 5.1 MMOL/L Specimen Performing Laboratory [facility] [address] [place], [place] [id number] * POC HEMATOCRIT (03/10/2017 11:29 AM) Component Value Ref Range Hemoglobin POC 8.5 (L) 13.5 - 16.5 GM/DL Hematocrit POC 25.0 (L) 40 - 50 % Specimen Performing Laboratory MAIN LAB [address] [place], [place] [id number] * POC BLOOD GAS ARTERIAL (03/10/2017 11:29 AM) Component Value Ref Range PH-ART-POC 7.45 7.35 - 7.45 HBR0-GUA-BIU 36 35 - 45 MMHG PO2-ART-POC 86 80 - 100 MMHG Base Ex-ART-POC 1.0 MMOL/L O2 Sat-ART-POC 97.0 95 - 99 % Hmtevjjiekb-FTC-FFI 24.6 21 - 28 MMOL/L Specimen Performing Laboratory MAIN LAB [address] [place] [address] * POC IONIZED CALCIUM (03/10/2017 10:18 AM) Component Value Ref Range Ionized Calcium-POC 1.02 1.0 - 1.3 MMOL/L Specimen Performing Laboratory MAIN LAB [address] [place] [address] * POC SODIUM (03/10/2017 10:18 AM) Component Value Ref Range Sodium-POC 135 (L) 137 - 147 MMOL/L Specimen Performing Laboratory MAIN LAB [address] [place], [place] [id number] * POC POTASSIUM (03/10/2017 10:18 AM) Component Value Ref Range Potassium-POC 3.4 (L) 3.5 - 5.1 MMOL/L Specimen Performing Laboratory [facility] [address] [place] [address] * POC HEMATOCRIT (03/10/2017 10:18 AM) Component Value Ref Range Hemoglobin POC 7.8 (L) 13.5 - 16.5 GM/DL Hematocrit POC 23.0 (L) 40 - 50 % Specimen Performing Laboratory MAIN [facility] [address] [place] [address] * POC BLOOD GAS ARTERIAL (03/10/2017 10:18 AM) Component Value Ref Range PH-ART-POC 7.46 (H) 7.35 - 7.45 QVL6-OJQ-OFX 35 35 - 45 MMHG PO2-ART-POC 90 80 - 100 MMHG Base Ex-ART-POC 1.0 MMOL/L O2 Sat-ART-POC 97.0 95 - 99 % Drfynmvkfjz-REA-BIW 25.0 21 - 28 MMOL/L Specimen Performing Laboratory MAIN [facility] [address] [place] [address] * ABDOMEN AP ONLY (03/10/2017 7:57 AM) [...] Interface, Radiant Results - 03/10/2017 10:16 AM CRM MARKETING EXECUTIVE ABDOMEN AP ONLY Indication: gastric tube placement [...] POS Specimen Performing Laboratory Blood [facility] [address] [place], [place] [id number] * TRIGLYCERIDE (03/10/2017 3:25 AM) Component Value Ref Range Triglycerides 84 <150 MG/DL Specimen Performing Laboratory MAIN LAB [address] [place], [place] [id number] * IONIZED CALCIUM (03/10/2017 3:25 AM) Component Value Ref Range Ionized Calcium 1.01 1.0 - 1.3 MMOL/L Specimen Performing Laboratory Blood [facility]IN [facility] [address] [place], [place] [id number] * PHOSPHORUS (03/10/2017 3:25 AM) Component Value Ref Range Phosphorus 6.1 (H) 2.0 - 4.0 MG/DL Specimen Performing Laboratory Blood MAIN [facility] [address] [place], [place] [id number] * MAGNESIUM (03/10/2017 3:25 AM) Component Value Ref Range Magnesium 2.2 1.6 - 2.6 mg/dL Specimen Performing Laboratory Blood [facility]IN [facility] [address] [place] [address] * CBC AND DIFF (03/10/2017 3:25 AM) [...] Specimen Performing Laboratory Blood [facility]IN [facility] [address] [place] [address] * BASIC METABOLIC PANEL (03/10/2017 3:25 AM) [...] Specimen Performing Laboratory Blood [facility]IN [facility] [address] [place] [address] * TYPE & CROSSMATCH (03/10/2017 3:25 AM) Component Value Ref Range Units Ordered 4 Crossmatch Expires 03/13/2017 Record Check 2ND TYPE REQUIRED ABO/RH(D) A POS Antibody Screen NEG Electronic Crossmatch YES Unit Number [id number] Blood Component Type RBC,ADSOL,LEUKO REDUCED Unit Division 0 Status OF Unit DISCARDED Transfusion Status OK TO TRANSFUSE Crossmatch Result COMPATIBLE,ELECTRONIC Unit Number [id number] Blood Component Type RBC,ADSOL,LEUKO REDUCED Unit Division 0 Status OF Unit TRANSFUSED Transfusion Status OK TO TRANSFUSE Crossmatch Result COMPATIBLE,ELECTRONIC Unit Number [id number] Blood Component Type RBC,ADSOL,LEUKO REDUCED Unit Division 0 Status OF Unit REL FROM ALLOC Transfusion Status OK TO TRANSFUSE Crossmatch Result COMPATIBLE,ELECTRONIC Unit Number [id number] Blood Component Type RBC,ADSOL,LEUKO REDUCED Unit Division 0 Status OF Unit REL FROM ALLOC Transfusion Status OK TO TRANSFUSE Crossmatch Result COMPATIBLE,ELECTRONIC Unit Number [id number] Blood Component Type RBC,ADSOL,LEUKO REDUCED Unit Division 0 Status OF Unit TRANSFUSED Transfusion Status OK TO TRANSFUSE Crossmatch Result COMPATIBLE,ELECTRONIC Specimen Performing Laboratory [facility] [address] [place] [address] * CHEST SINGLE VIEW (03/10/2017 1:47 AM) [...] Interface, Radiant Results - 03/10/2017 10:56 AM CRM MARKETING EXECUTIVE CHEST SINGLE VIEW Indication: Male, 51 years [...] costophrenic angles are not included within the [id number]. No pneumothorax. Right AC joint arthrosis. Procedure Note Interface, Radiant Results - 03/09/2017 9:32 PM CRM MARKETING EXECUTIVE CHEST SINGLE VIEW Clinical history: Repositioned endotracheal [...] costophrenic angles are not included within the [id number]. No pneumothorax. Right AC joint arthrosis. IMPRESSION [...] (PCP) 25 NG/ML Specimen Performing Laboratory Urine [facility] [address] [place] [address] * OPIATES-URINE RANDOM (03/09/2017 6:45 PM) Component Value Ref Range Opiates-Urine NEG NEG-NEG Comment: RESULTS WERE OBTAINED BY IMMUNOASSAY AND ARE PRESUMPTIVE ONLY. POSITIVE INDICATES THE PRESENCE OF SUBSTANCE WITH CHARACTERISTICS SIMILAR TO DRUG-DRUG CLASS OR METABOLITE IN CONC. EQUAL TO OR EXCEEDING VALUES LISTED. OPIATES 200 0 NG/ML Specimen Performing Laboratory Urine [facility] [address] [place] [address] * COCAINE-URINE RANDOM (03/09/2017 6:45 PM) Component Value Ref Range Cocaine-Urine NEG NEG-NEG Comment: RESULTS WERE OBTAINED BY IMMUNOASSAY AND ARE PRESUMPTIVE ONLY. POSITIVE INDICATES THE PRESENCE OF SUBSTANCE WITH CHARACTERISTICS SIMILAR TO DRUG-DRUG CLASS OR METABOLITE IN CONC. EQUAL TO OR EXCEEDING VALUES LISTED. COCAINE 300 NG/ML Specimen Performing Laboratory Urine [facility] [address] [place] [address] * CANNABINOIDS-URINE RANDOM (03/09/2017 6:45 PM) Component Value Ref Range THC NEG NEG-NEG Comment: RESULTS WERE OBTAINED BY IMMUNOASSAY AND ARE PRESUMPTIVE ONLY. POSITIVE INDICATES THE PRESENCE OF SUBSTANCE WITH CHARACTERISTICS SIMILAR TO DRUG-DRUG CLASS OR METABOLITE IN CONC. EQUAL TO OR EXCEEDING VALUES LISTED. CANNABINOIDS 50 NG/ML Specimen Performing Laboratory Urine [facility] [address] [place] [address] * BENZODIAZEPINES-URINE RANDOM (03/09/2017 6:45 PM) Component Value Ref Range Benzodiazepines POS (A) NEG-NEG Comment: RESULTS WERE OBTAINED BY IMMUNOASSAY AND ARE PRESUMPTIVE ONLY. POSITIVE INDICATES THE PRESENCE OF SUBSTANCE WITH CHARACTERISTICS SIMILAR TO DRUG-DRUG CLASS OR METABOLITE IN CONC. EQUAL TO OR EXCEEDING VALUES LISTED. BENZODIAZEPINES 200 NG/ML Specimen Performing Laboratory Urine [facility] [address] [place] [address] * BARBITURATES-URINE RANDOM (03/09/2017 6:45 PM) Component Value Ref Range Barbiturates,Urine NEG NEG-NEG Comment: RESULTS WERE OBTAINED BY IMMUNOASSAY AND ARE PRESUMPTIVE ONLY. POSITIVE INDICATES THE PRESENCE OF SUBSTANCE WITH CHARACTERISTICS SIMILAR TO DRUG-DRUG CLASS OR METABOLITE IN CONC. EQUAL TO OR EXCEEDING VALUES LISTED. BARBITURATES 200 NG/ML Specimen Performing Laboratory Urine [facility] [address] [place] [address] * AMPHETAMINES-URINE RANDOM (03/09/2017 6:45 PM) Component Value Ref Range Amphetamines POS (A) NEG-NEG Comment: RESULTS WERE OBTAINED BY IMMUNOASSAY AND ARE PRESUMPTIVE ONLY. POSITIVE INDICATES THE PRESENCE OF SUBSTANCE WITH CHARACTERISTICS SIMILAR TO DRUG-DRUG CLASS OR METABOLITE IN CONC. EQUAL TO OR EXCEEDING VALUES LISTED. AMPHETAMINES 1000 NG/ML Specimen Performing Laboratory Urine [facility] [address] [place] [address] * IONIZED CALCIUM (03/09/2017 6:43 PM) Component Value Ref Range Ionized Calcium 1.10 1.0 - 1.3 MMOL/L Specimen Performing Laboratory Blood [facility] [address] [place] [address] * BLOOD GASES, ARTERIAL (03/09/2017 6:43 PM) Component Value Ref Range pH-Arterial 7.37 7.35 - 7.45 pCO2-Arterial 50 (H) 35 - 45 MMHG pO2-Arterial 118 (H) 80 - 100 MMHG Base Excess-Arterial 3.3 MMOL/L O2 Sat-Arterial 98.6 95 - 99 % Eafipqlpkjt-VSQ-Xsb 27.4 21 - 28 MMOL/L Specimen Performing Laboratory Blood, arterial - Blood [facility] [address] [place] [address] * PHOSPHORUS (03/09/2017 6:43 PM) Component Value Ref Range Phosphorus 6.0 (H) 2.0 - 4.0 MG/DL Specimen Performing Laboratory [facility] [address] [place] [address] * MAGNESIUM (03/09/2017 6:43 PM) Component Value Ref Range Magnesium 2.1 1.6 - 2.6 mg/dL Specimen Performing Laboratory [facility] [address] [place] [address] * COMPREHENSIVE METABOLIC PANEL (03/09/2017 6:43 PM) [...] Specimen Performing Laboratory [facility] [address] [place] [address] * PTT (APTT) (03/09/2017 6:43 PM) Component Value Ref Range APTT 31.9Comment: NOTE NEW REFERENCE RANGES 21.0 - 39.0 SEC Specimen Performing Laboratory [facility] [address] [place] [address] * PROTIME INR (PT) (03/09/2017 6:43 PM) Component Value Ref Range INR 1.3 (H) 0.8 - 1.2 Specimen Performing Laboratory [facility] [address] [place] [address] * CBC AND DIFF (03/09/2017 6:43 PM) [...] Specimen Performing Laboratory [facility] [address] [place] [address] * IR ARTERIOGRAM NEURO (03/09/2017 6:35 PM) Specimen Performing Laboratory [facility] RAD RESULTS Addenda Addendum by Lyly Rogel MD on 03/11/2017 10:05 AM Finalized by LYLY ROGEL M.D. on 03/11/2017 8:34 AM. Dictated by LYLY ROGEL M.D. on 03/11/2017 8:22 AM.Addendum: Left Common Femoral Vein Central Line Placement Under fluoroscopic guidance a 4 Martiniquais 10 cm central venous line was placed [...] Fentanyl 100 mcg Contrast - 100 cc [id number] Total mGy - 1174 Anesthesia:conscious sedation Consent -The procedure and its risks, benefits, and alternative treatments were explained to the patient's family over the telephone and a witnessed telephone consent was obtained. Clinical History: Mr. Mayfield is a 51 year old male who presented to the [facility] and was found to have [...] establishing arterial access. RCCA Technique A 5 Martiniquais 100 cm Vert catheter was advanced over a 150 cm 0.035 [place] wire over the aortic arch and into [...] under fluoroscopic and roadmap guidance over the [place] wire and images were obtained in biplane [...] therefore, hemostasis was achieved using a 6 Martiniquais Angioseal closure device followed by manual pressure for 5 minutes. The patient was transported to the neuro ICU in stable clinical and hemodynamic conditions. Complications - none immediate Procedure Note Interface, Radiant Results - 03/11/2017 10:05 AM CRM MARKETING EXECUTIVE Cerebral Angiogram Indication - SAH with IPH [...] Fentanyl 100 mcg Contrast - 100 cc [id number] Total mGy - 1174 Anesthesia: conscious sedation Consent - The procedure and its risks, benefits, and alternative treatments were explained to the patient's family over the telephone and a witnessed telephone consent was obtained. Clinical History: Mr. Mayfield is a 51 year old male who presented to the [facility] and was found to have [...] establishing arterial access. RCCA Technique A 5 Martiniquais 100 cm Vert catheter was advanced over a 150 cm 0.035 [place] wire over the aortic arch and into [...] under fluoroscopic and roadmap guidance over the [place] wire and images were obtained in biplane [...] therefore, hemostasis was achieved using a 6 Martiniquais Angioseal closure device followed by manual pressure [...] Interface, Radiant Results - 03/09/2017 6:58 PM CRM MARKETING EXECUTIVE EXAM: CTA HEAD HISTORY: 51-year-old male, subarachnoid [...] Interface, Radiant Results - 03/10/2017 10:56 AM CRM MARKETING EXECUTIVE CHEST SINGLE VIEW Indication: Male, 51 years [...] Visit Diagnoses Diagnosis 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HCC) Subarachnoid hemorrhage in this encounter Admitting Diagnoses Diagnosis subarachnoid [...] 500 mL Ringer's 500 mL irrigation bottle 09:19 CRM MARKETING EXECUTIVE INTRA-PROCEDURE MED, Starting 12/3/17 at 0919, Until 03/10/17 at 1832, Intra-op bacitracin topical ointment Given 03/10/2017 1 Dose INTRA-PROCEDURE MED, Starting Sun 09:05 CRM MARKETING EXECUTIVE 03/10/17 at 0905, Until 03/10/17 at 1832, Intra-op lidocaine 1%/EPINEPHrine 1:100,000 Given 03/10/2017 4 mL Other injection 09:14 CRM MARKETING EXECUTIVE INTRA-PROCEDURE MED, Starting 03/10/17 at 0914, Until 03/10/17 at 1832, Intra-op in this encounter
--- OUTSIDE RECORDS SUMMARY | 2017-03-26 19:37 | XMS REPORT | Encounter Summary ---
Author Author [facility] Organization [facility] Address Unknown Phone Unavailable Care Team Providers Care Investment Consultant Name Role Phone PCP Unavailable Encounter Details Date Type Department Care Team Description 03/09/2017 Hospital [facility] Encounter Hospital Radiology [address] [place] [address] Social History Tobacco Use Types Packs/Day Years Used Date Never Assessed Sex Assigned at Date Recorded Not on file as of this encounter Medications at Time of Discharge Medication Sig. Disp. Refills Start Date End Date acetaminophen (TYLENOL) Take 2 tablets by mouth 0 03/26/2017 325 mg tablet every 4 hours as needed. heparin (porcine) PF Inject 0.5 mL under [...] (SENOKOT-S) 8.8/50 mg /10 daily. mL solution metoprolol XL (TOPROL XL) Take 200 mg by mouth 03/26/2017 200 mg extended release twice daily. tablet as of this encounter Plan of Treatment Not on fileas of this encounter Results * CT HEAD EXTERNAL IMAGING (03/09/2017 12:15 AM) Narrative This order has been auto finalized and does not contain a result. in this encounter Visit Diagnoses Diagnosis Diagnosis unknown Other unknown and unspecified cause of morbidity or mortality in this encounter
--- OUTSIDE RECORDS SUMMARY | 2017-03-26 19:37 | XMS REPORT ---
Author ROSIE Cobb Organization [employer] Address Unknown Phone Unavailable Care Team Providers Care Nursery Laborer Name Role Phone ROSIE AMADO CP Unavailable Allergies, Adverse Reactions, Alerts Substance Reaction Event Type Hydrocodone Failed UDS Non Drug Allergy Benzodiazepines Failed UDS Non Drug Allergy Amphetamine Failed UDS Non Drug Allergy Problems Problem Type Condition Code Onset Dates Condition Status Problem Anxiety state, unspecified 300.00 Active Problem Acute sinusitis, unspecified 461.9 Active Problem Acute upper respiratory infections of unspecified site 465.9 Active Problem CAD (coronary artery disease) I25.10 Active Problem Coronary atherosclerosis of unspecified type of vessel, [place] or graft 414.00 Active Problem HTN (hypertension) I10 Active Problem Nephritis and nephropathy, not specified as acute or chronic, with other specified pathological lesion in kidney, in diseases classified elsewhere 583.81 Active Problem Chronic kidney disease, Stage IV (severe) 585.4 Active Problem Kidney disease, chronic, stage IV (GFR 15-29 ml/min) N18.4 Active Problem Essential hypertension 401.9 Active Problem Open wound of foot except toe(s) alone, without mention of complication 892.0 Active Problem Pain in left arm M79.602 Active Problem Type 2 diabetes mellitus 250.00 Active Problem Chest pain, unspecified 786.50 Active Problem Secondary diabetes mellitus with ophthalmic manifestations, not stated as uncontrolled, or unspecified 249.50 Active Problem Proteinuria 791.0 Active Problem Diabetes with renal manifestations, type II or unspecified type, not stated as uncontrolled 250.40 Active Problem Personal history of noncompliance with medical treatment, presenting hazards to health V15.81 Active Problem Other and unspecified hyperlipidemia 272.4 Active Problem Other specified visual disturbances 368.8 Active Problem Psychosexual dysfunction with inhibited sexual excitement 302.72 Active Assessment Bronchitis with airway obstruction J44.9 Active Problem Unspecified hereditary and idiopathic peripheral neuropathy 356.9 Active Problem Epistaxis 784.7 Active Medications Medication Code System Code Instructions Start Date End Date Status Dosage Toprol XL [facility] [address]-07 200 MG Orally 2 times a day Jan 25, 2014 take 1 tablet by Oral route 2 times per day Cardura [facility] [address]-27 8 MG Orally Once a day Dec 28, 2013 1 tablet by Oral route 1 time per day h s Drisdol [facility] [address]-85 51318 UNIT Orally 1 capsule Hydrocodone-Acetaminophen [facility] [address]-50 7.5-325 MG Orally every 6 hrs Jan 20, 2015 1 tablet as needed Doxycycline Hyclate [facility] [address]-36 100 MG Orally every 12 hrs 1 capsule NovoLog Flexpen [facility] [address]-53 100 UNIT/ML Subcutaneous 3 times a day October 14, 2014 10 units with meals Crestor [facility] [id number] 20 MG TAKE ONE TABLET BY MOUTH DAILY Losartan Potassium [facility] [address]-51 50 MG Orally Once a day not defined Cheratussin AC [facility] [address]-98 100-10 MG/5ML Orally 4 times a day Feb 5- 7.5 ml Lantus [facility] [address]-06 100 UNIT/ML Subcutaneous Once a day Dec 28, 2013 75 Unit by Subcutaneous route 1 ttimes per day Norvasc [facility] [id number] 10 MG TAKE ONE TABLET BY MOUTH DAILY Procedures Procedure Coding System Code Date Office Visit, Est Pt., Level 4 CPT-4 26128 Mar 02, 2015 MEASURE BLOOD OXYGEN LEVEL CPT-4 74040 Mar 02, 2015 Vital Signs Date/Time: Mar 02, 2015 Cardiac Monitoring Heart Rate 78 bpm Temperature 96.8 F Height 69 in Oximetry 96 % Blood Pressure Diastolic 92 mmHg Blood Pressure Systolic 160 mmHg Results No Known Results Summary Purpose [employer] Submission
--- OUTSIDE RECORDS SUMMARY | 2017-03-26 19:37 | XMS REPORT | Encounter Summary ---
Author Author [facility] Address Unknown Phone Unavailable Care Team Providers Care Tortilla Maker Name Role Phone PCP Unavailable Encounter Details Date Type Department Care Team Description 03/09/2017 Ancillary Rad Outpatient, Radiologist Diagnosis unknown Orders [address] [place] [address] Social History Tobacco Use Types Packs/Day Years [...]
--- OUTSIDE RECORDS SUMMARY | 2017-03-26 19:37 | XMS REPORT ---
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 34052648 Problem Hypoxia R09.02 Active 069081455 Problem Pain in right knee M25.561 Active 83497970 Problem COPD (chronic obstructive pulmonary disease) J44.9 Active 23095434 Problem Dialysis patient Z99.2 Active 140771979 Problem Pain in left knee M25.562 Active 92049818 Problem Edema, unspecified type R60.9 Active 637344919 ALLERGIES Substance Reaction Event Type Date Status Hydrocodone Failed UDS Non Drug Allergy Apr, Active Benzodiazepines Failed UDS Non Drug Allergy Apr, Active Amphetamine Failed UDS Non Drug Allergy Apr, Active SOCIAL HISTORY No smoking Hx information available PLAN OF CARE Activity Details Follow Up 2 Months Reason: VITAL SIGNS Height 69 in 2016-04-24 Weight 276.6 lbs 2016-04-24 Temperature 97.9 degrees Fahrenheit 2016-04-24 Heart Rate 92 bpm 2016-04-24 Respiratory Rate 24 2016-04-24 BMI 40.84 kg/m2 2016-04-24 Blood pressure systolic 202 mmHg 2016-04-24 Blood pressure diastolic 90 mmHg 2016-04-24 MEDICATIONS Medication Instructions Dosage Frequency Start Date End Date Duration Status Norvasc 10 MG TAKE ONE TABLET BY MOUTH DAILY 90 Active Ventolin HFA 108 (90 Base) MCG/ACT Inhalation every 4 hrs 2 puffs as needed 4h Jul, Active Toprol XL 200 mg TAKE ONE TABLET BY MOUTH TWICE DAILY Active Torsemide 100 MG TAKE ONE TABLET BY MOUTH ONCE DAILY ON NON DIALYSIS DAYS Active Minoxidil 2.5 MG Orally twice a day 1 tablet 12h 30 Active PhosLo 667 MG Orally Three times a day 2 tabs 8h 30 Active Hydrocodone-Acetaminophen 7.5-325 MG Orally every 6 hrs 1 tablet as needed 6h 16 Apr, 2016 Active Furosemide 40 mg Orally twice a day 1 tablet 12h Dec, Active Symbicort 160-4.5 MCG/ACT Inhalation Twice a day 2 puffs 12h Jul, Active Hyzaar 100-25 MG TAKE ONE TABLET BY MOUTH ONCE DAILY 90 Active Oxygen 2-3 L/NC by inhalation route continious as directed Mar, Active Atorvastatin Calcium 10 mg Orally Once a day 1 tablet 24h Active Cardura 8 MG Orally Once a day 1 tablet by Oral route 1 time per day h s 24h 30 Active RESULTS Name Result Date Reference Range A1C (IN HOUSE) 2016-04-24 A1C IN HOUSE 5.5 4.3 - 5.6 % Previous A1c 5.9 Lot [id number] Exp date 01/2018 PROCEDURES Procedure Date Ordered Related Diagnosis Body Site GLYCATED HEMOGLOBIN TEST Apr 24, 2016 Office Visit, Est Pt., Level 4 Apr 24, 2016 IMMUNIZATIONS No Known Immunizations
--- OUTSIDE RECORDS SUMMARY | 2017-03-26 19:37 | XMS REPORT | Encounter Summary ---
Author Author [facility] Organization [facility] Address Unknown Phone Unavailable Care Team Providers Care Radiology Transporter Name Role Phone PCP Unavailable Encounter Details Date Type Department Care Team Description 03/09/2017 Hospital [facility] Encounter Hospital Radiology [address] [place] [address] Social History Tobacco Use Types Packs/Day Years [...] on fileas of this encounter Results * GENERAL RAD CHEST EXTERNAL IMAGING (03/09/2017) Narrative This order has been auto finalized and does not contain a result. in this encounter Visit Diagnoses Diagnosis Diagnosis unknown Other unknown and unspecified cause of morbidity or mortality in this encounter
--- OUTSIDE RECORDS SUMMARY | 2017-03-26 19:37 | XMS REPORT ---
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 Problem moth exterminator current use of insulin Z79.4 Active Problem COPD (chronic obstructive pulmonary disease) J44.9 Active Problem Dialysis patient Z99.2 Active Problem Edema, unspecified type R60.9 Active Problem HTN (hypertension) I10 Active Problem Pain in left arm M79.602 Active Problem Kidney disease, chronic, stage IV (GFR 15-29 ml/min) N18.4 Active Problem CAD (coronary artery disease) I25.10 Active Medications Medication Code System Code Instructions Start Date End Date Status Dosage Hydrocodone-Acetaminophen [facility] [address]-22 7.5-325 MG Orally every 6 hrs Jan 20, 2015 1 tablet as needed Results No Known Results Summary Purpose [employer] Submission
--- OUTSIDE RECORDS SUMMARY | 2017-03-26 19:37 | XMS REPORT | Encounter Summary ---
Author Author [facility] Organization [facility] Address Unknown Phone Unavailable Care Team Providers Care Decaler Name Role Phone PCP Unavailable Encounter Details Date Type Department Care Team Description 03/09/2017 Procedure [facility] [address] [place] [address] Social History Tobacco Use Types Packs/Day Years Used Date Never Assessed Sex Assigned at Date Recorded Not on file as of this encounter Plan of Treatment Not on fileas of this encounter Visit Diagnoses Not on filein this encounter
--- OUTSIDE RECORDS SUMMARY | 2017-03-26 19:37 | XMS REPORT ---
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 09531731 Problem Hypoxia R09.02 Active 695158636 Problem Pain in right knee M25.561 Active 68554029 Problem COPD (chronic obstructive pulmonary disease) J44.9 Active 57246905 Problem Dialysis patient Z99.2 Active 743590763 Problem Pain in left knee M25.562 Active 79937530 Problem Edema, unspecified type R60.9 Active 373951989 ALLERGIES Substance Reaction Event Type Date Status Hydrocodone Failed UDS Non Drug Allergy Mar, Active Benzodiazepines Failed UDS Non Drug Allergy Mar, Active Amphetamine Failed UDS Non Drug Allergy Mar, Active SOCIAL HISTORY No smoking Hx information available PLAN OF CARE Activity Details Follow Up 4 Weeks Reason: VITAL SIGNS Height 69 in 2016-03-26 Weight 288 lbs 2016-03-26 Temperature 98.9 degrees Fahrenheit 2016-03-26 Heart Rate 102 bpm 2016-03-26 Respiratory Rate 32 2016-03-26 BMI 42.53 kg/m2 2016-03-26 Blood pressure systolic 198 mmHg 2016-03-26 Blood pressure diastolic 122 mmHg 2016-03-26 MEDICATIONS Medication Instructions Dosage Frequency Start Date End Date Duration Status Hydrocodone-Acetaminophen 7.5-325 MG TAKE ONE TABLET BY MOUTH EVERY 6 HOURS NEEDED (MUST LAST 28 DAYS) 28 Active Symbicort 160-4.5 MCG/ACT Inhalation Twice a day 2 puffs 12h Jul, Active Torsemide 100 MG TAKE ONE TABLET BY MOUTH ONCE DAILY ON NON DIALYSIS DAYS 4 Active Farxiga 5 mg Orally Once a day 1 tablet 24h Mar, Apr, 30 day(s) Active Furosemide 40 mg Orally twice a day 1 tablet 12h Dec, 30 Active Hyzaar 100-25 MG Orally Once a day 1 tablet 24h Active Norvasc 10 MG TAKE ONE TABLET BY MOUTH DAILY 90 Active Oxygen 2-3 L/NC by inhalation route continious as directed Mar, Active Ventolin HFA 108 (90 Base) MCG/ACT Inhalation every 4 hrs 2 puffs as needed 4h Jul, Active Atorvastatin Calcium 10 mg Orally Once a day 1 tablet 24h 30 Active Cardura 8 MG Orally Once a day 1 tablet by Oral route 1 time per day h s 24h Active Hydrocodone-Acetaminophen 7.5-325 MG Orally every 6 hrs 1 tablet as needed 6h Mar, Active Minoxidil 2.5 MG Orally twice a day 1 tablet 12h 30 Active Clindamycin HCl 300 MG Orally every 8 hrs 1 capsule 8h Mar,Mar 10 days Active PhosLo 667 MG Orally Three times a day 2 tabs 8h 30 Active Toprol XL 200 mg TAKE ONE TABLET BY MOUTH TWICE DAILY Active RESULTS Name Result Date Reference Range GLUCOSE FINGERSTICK (IN HOUSE) 2016-03-26 GLU FINGERSTICK 161 PC Lot # [id number] Exp date 06/03/2016 CBC 2016-03-26 WBC 6.8 3.4-10.8 RBC 3.49 4.14-5.80 Hemoglobin 9.7 12.6-17.7 Hematocrit 30.1 37.5-51.0 MCV 86 79-97 MCH 27.8 26.6-33.0 MCHC 32.2 31.5-35.7 RDW 16.6 12.3-15.4 Platelets 163 150-379 Neutrophils 88 Lymphs 6 Monocytes 4 Eos 2 Basos 0 Immature Cells Neutrophils (Absolute) 6.0 1.4-7.0 Lymphs (Absolute) 0.4 0.7-3.1 Monocytes(Absolute) 0.3 0.1-0.9 Eos (Absolute) 0.1 0.0-0.4 Baso (Absolute) 0.0 0.0-0.2 Immature Granulocytes 0 Immature Grans (Abs) 0.0 0.0-0.1 [facility] Hematology Comments: LIPID PANEL 2016-03-26 Cholesterol, Total 120 100-199 Triglycerides 105 0-149 HDL Cholesterol 25 >39 VLDL Cholesterol Jarred 21 5-40 LDL Cholesterol Calc 74 0-99 Comment: CMP 2016-03-26 Glucose, Serum 139 65-99 BUN 68 6-24 Creatinine, Serum 9.85 0.76-1.27 eGFR If NonAfricn Am 6 >59 eGFR If Africn Am 6 >59 BUN/Creatinine Ratio 7 9-20 Sodium, Serum 140 134-144 Potassium, Serum 5.7 3.5-5.2 Chloride, Serum 98 96-106 Carbon Dioxide, Total 27 18-29 Calcium, Serum 9.3 8.7-10.2 Protein, Total, Serum 6.7 6.0-8.5 Albumin, Serum 3.9 3.5-5.5 Globulin, Total 2.8 1.5-4.5 A/G Ratio 1.4 1.1-2.5 Bilirubin, Total 0.9 0.0-1.2 Alkaline Phosphatase, S 82 39-117 AST (SGOT) 15 0-40 ALT (SGPT) 15 0-44 PROCEDURES Procedure Date Ordered Related Diagnosis Body Site LAB NOT BILLED BY [facility] Mar 26, 2016 Office Visit, Est Pt., Level 4 Mar 26, 2016 GLUCOSE BLOOD TEST Mar 26, 2016 VENIPUNCT, ROUTINE* Mar 26, 2016 IMMUNIZATIONS No Known Immunizations
--- OUTSIDE RECORDS SUMMARY | 2017-03-26 19:37 | XMS REPORT ---
Author ROSIE Cobb Organization [employer] Address Unknown Phone Unavailable Care Team Providers Care Car Unloader Helper Name Role Phone ROSIE AMADO CP Unavailable Allergies No Known Allergies Problems Problem Type Condition Code Onset Dates Condition Status Problem Anxiety state, unspecified 300.00 Active Problem Acute sinusitis, unspecified 461.9 Active Problem Acute upper respiratory infections of unspecified site 465.9 Active Problem CAD (coronary artery disease) I25.10 Active Problem Coronary atherosclerosis of unspecified type of vessel, [place] or graft 414.00 Active Problem HTN (hypertension) [...] dysfunction with inhibited sexual excitement 302.72 Active Problem Unspecified hereditary and idiopathic peripheral neuropathy 356.9 Active Problem Epistaxis 784.7 Active Medications Medication Code System Code Instructions Start Date End Date Status Dosage Hydrocodone-Acetaminophen [facility] [address]-31 7.5-325 MG Orally every 6 hrs Jan 20, 2015 Apr 05, 2015 1 tablet as needed Results No Known Results Summary Purpose [employer] Submission
--- OUTSIDE RECORDS SUMMARY | 2017-03-26 19:38 | XMS REPORT ---
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 70504923 Problem Hypoxia R09.02 Active 403969337 Problem Pain in right knee M25.561 Active 31604502 Problem COPD (chronic obstructive pulmonary disease) J44.9 Active 05167532 Problem Dialysis patient Z99.2 Active 222540842 Problem Pain in left knee M25.562 Active 80951790 Problem Edema, unspecified type R60.9 Active 001254348 ALLERGIES Substance Reaction Event Type Date Status Hydrocodone Failed UDS Non Drug Allergy May, Active Benzodiazepines Failed UDS Non Drug Allergy May, Active Amphetamine Failed UDS Non Drug Allergy May, Active SOCIAL HISTORY Never Assessed PLAN OF CARE Activity Details Follow Up 4 Weeks Reason: VITAL SIGNS Height 69 in 2016-05-31 Weight 253 lbs 2016-05-31 Temperature 98.0 degrees Fahrenheit 2016-05-31 Heart Rate 80 bpm 2016-05-31 Respiratory Rate 24 2016-05-31 BMI 37.36 kg/m2 2016-05-31 Blood pressure systolic 160 mmHg 2016-05-31 Blood pressure diastolic 90 mmHg 2016-05-31 MEDICATIONS Medication Instructions Dosage Frequency Start Date End Date Duration Status Hyzaar 100-25 MG TAKE ONE TABLET BY MOUTH ONCE DAILY 90 Active Torsemide 100 MG TAKE ONE TABLET BY MOUTH ONCE DAILY ON NON DIALYSIS DAYS Active PhosLo 667 MG Orally Three times a day 2 tabs 8h 30 Active Atorvastatin Calcium 10 mg Orally Once a day 1 tablet 24h Active Toprol XL 200 MG TAKE ONE TABLET BY MOUTH TWICE DAILY 30 Active Norvasc 10 MG TAKE ONE TABLET BY MOUTH DAILY 90 Active Cardura 8 MG Orally Once a day 1 tablet by Oral route 1 time per day h s 24h 30 Active Furosemide 40 mg Orally twice a day 1 tablet 12h 22 Dec, 2015 Active Baclofen 10 mg Orally 2 times a day 1 tablet with food or milk 12h 23 May, 2016 Jun, 30 day(s) Active Hydrocodone-Acetaminophen 7.5-325 MG Orally every 6 hrs 1 tablet as needed 6h 28 Active Symbicort 160-4.5 MCG/ACT Inhalation Twice a day 2 puffs 12h Jul, Active Minoxidil 2.5 MG Orally twice a day 1 tablet 12h 30 Active Oxygen 2-3 L/NC by inhalation route continious as directed Mar, Active Ventolin HFA 108 (90 Base) MCG/ACT Inhalation every 4 hrs 2 puffs as needed 4h Jul, Active RESULTS No Results PROCEDURES No Known procedures IMMUNIZATIONS No Known Immunizations MEDICAL (GENERAL) HISTORY Type Description Date Medical History hypertension Medical History Type 2 diabetes Medical History Chronic Kidney disease stage 4 Medical History anxiety Medical History Hyperlipidemia Medical History Neuropathy Surgical History laproscopy on left knee Surgical History Laser on both eyes Surgical History arteriovenous fistula placed at [facility] by Dr. Engel january 2015 Hospitalization History [facility] for chest pain Hospitalization History [place] [id number] night stay - SOB 2015
--- OUTSIDE RECORDS SUMMARY | 2017-03-26 19:38 | XMS REPORT ---
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 Assessment Kidney disease, chronic, stage IV (GFR 15-29 ml/min) N18.4 Active Problem Epistaxis 784.7 Active Assessment Type 2 diabetes mellitus 250.00 Active Problem Anxiety state, unspecified 300.00 Active Problem Acute sinusitis, unspecified 461.9 Active Problem Acute upper respiratory infections of unspecified site 465.9 Active Problem CAD (coronary artery disease) I25.10 Active Problem HTN (hypertension) I10 Active Problem Coronary atherosclerosis of unspecified type of vessel, [place] or graft 414.00 Active Problem Nephritis and nephropathy, not specified as acute or chronic, with other specified pathological lesion in kidney, in diseases classified elsewhere 583.81 Active Problem Kidney disease, chronic, stage IV (GFR 15-29 ml/min) N18.4 Active Problem Chronic kidney disease, Stage IV (severe) 585.4 Active Problem Essential hypertension 401.9 Active Problem [...] Other specified visual disturbances 368.8 Active Problem Unspecified hereditary and idiopathic peripheral neuropathy 356.9 Active Medications Medication Code System Code Instructions Start Date End Date Status Dosage Crestor [facility] 02724280305 20 MG TAKE ONE TABLET BY MOUTH DAILY Cardura [facility] [address]-12 8 MG Orally Once a day Dec 28, 2013 1 tablet by Oral route 1 time per day h s Toprol XL [facility] [address]-53 200 MG Orally 2 times a day Jan 25, 2014 take 1 tablet by Oral route 2 times per day Lantus [facility] [address]-50 100 UNIT/ML Subcutaneous Once a day Dec 28, 2013 75 Unit by Subcutaneous route 1 ttimes per day Losartan Potassium [facility] [address]-16 50 MG Orally Once a day not defined Drisdol [facility] [address]-91 36184 UNIT Orally 1 capsule Hydrocodone-Acetaminophen [facility] [address]-90 7.5-325 MG Orally every 6 hrs Jan 20, 2015 1 tablet as needed Norvasc [facility] 13291697223 10 MG TAKE ONE TABLET BY MOUTH DAILY NovoLog Flexpen [facility] [address]-62 100 UNIT/ML Subcutaneous 3 times a day October 14, 2014 10 units with meals Procedures Procedure Coding System Code Date Office Visit, Est Pt., Level 4 CPT-4 31319 Feb 10, 2015 GLYCATED HEMOGLOBIN TEST CPT-4 60797 Feb 10, 2015 Vital Signs Date/Time: Feb 10, 2015 Temperature 98.1 F Weight 268.6 lbs Height 69 in BMI 39.66 Index Blood Pressure Diastolic 82 mmHg Blood Pressure Systolic 132 mmHg Cardiac Monitoring Heart Rate 82 bpm Results Name Result Date Reference Range Unit Abnormality Flag A1C (IN HOUSE) Summary Purpose [employer] Submission
--- OUTSIDE RECORDS SUMMARY | 2017-03-26 19:38 | XMS REPORT ---
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
--- OUTSIDE RECORDS SUMMARY | 2017-03-26 19:38 | XMS REPORT ---
Author ROSIE Cobb Organization [employer] Address Unknown Phone Unavailable Care Team Providers Care Janitor Helper Name Role Phone ROSIE AMADO CP Unavailable Allergies No Known Allergies Problems Problem Type Condition Code Onset Dates Condition Status Problem Anxiety state, unspecified 300.00 Active Problem Acute sinusitis, unspecified 461.9 Active Problem Acute upper respiratory infections of unspecified site 465.9 Active Problem CAD (coronary artery disease) I25.10 Active Problem Coronary atherosclerosis of unspecified type of vessel, [place] or graft 414.00 Active Problem HTN (hypertension) [...] Instructions Start Date End Date Status Dosage PhosLo [facility] [address]-28 667 MG Orally Three times a day Mar 31, 2015 Apr 30, 2015 2 tabs Results No Known Results Summary Purpose [employer] Submission
--- OUTSIDE RECORDS SUMMARY | 2017-03-26 19:38 | XMS REPORT ---
Author ROSIE Cobb Organization [employer] Address Unknown Phone Unavailable Care Team Providers Care Ecology Professor Name Role Phone ROSIE AMADO CP Unavailable Allergies No Known Allergies Problems Problem Type Condition Code Onset Dates Condition Status Problem Pain in left arm M79.602 Active Problem CAD (coronary artery disease) I25.10 Active Problem HTN (hypertension) I10 Active Problem half-way current use of insulin Z79.4 Active Problem [...] (chronic obstructive pulmonary disease) J44.9 Active Medications Medication Code System Code Instructions Start Date End Date Status Dosage Furosemide [facility] [address]-18 40 mg Orally twice a day Dec 29, 2015 1 tablet Results No Known Results Summary Purpose [employer] Submission
--- OUTSIDE RECORDS SUMMARY | 2017-03-26 19:38 | XMS REPORT ---
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 Problem Other and unspecified hyperlipidemia 272.4 Active Problem Essential hypertension 401.9 Active Problem Open wound of foot except toe(s) alone, without mention of complication 892.0 Active Problem Type 2 diabetes mellitus 250.00 Active Problem Anxiety state, unspecified 300.00 Active Problem Epistaxis 784.7 Active Problem Acute sinusitis, unspecified 461.9 Active Problem Acute upper respiratory infections of unspecified site 465.9 Active Problem Nephritis and nephropathy, not specified as acute or chronic, with other specified pathological lesion in kidney, in diseases classified elsewhere 583.81 Active Problem Coronary atherosclerosis of unspecified type of vessel, [place] or graft 414.00 Active Problem Chronic kidney disease, Stage IV (severe) 585.4 Active Problem Chest pain, unspecified 786.50 Active Problem Secondary diabetes mellitus with ophthalmic manifestations, not stated as uncontrolled, or unspecified 249.50 Active Problem Proteinuria 791.0 Active Problem Other specified visual disturbances 368.8 Active Problem Diabetes with renal manifestations, type II or unspecified type, not stated as uncontrolled 250.40 Active Problem Unspecified hereditary and idiopathic peripheral neuropathy 356.9 Active Medications Medication Code System Code Instructions Start Date End Date Status Dosage Hydrocodone-Acetaminophen [facility] [address]-68 7.5-325 MG Orally every 6 hrs Jan 20, 2015 1 tablet as needed Results No Known Results Summary Purpose [employer] Submission
--- OUTSIDE RECORDS SUMMARY | 2017-03-26 19:38 | XMS REPORT ---
Author ROSIE Cobb [facility] eClinical[employer] Address Unknown Phone Unavailable Care Team Providers Care Airdox Fitter Name Role Phone ROSIE AMADO CP Unavailable Allergies No Known Allergies Problems Problem Type Condition Code Onset Dates Condition Status Problem Anxiety state, unspecified 300.00 Active Problem Acute sinusitis, unspecified 461.9 Active Problem Acute upper respiratory infections of unspecified site 465.9 Active Problem CAD (coronary artery disease) I25.10 Active Problem Coronary atherosclerosis of unspecified type of vessel, [place] or graft 414.00 Active Problem HTN (hypertension) [...] Instructions Start Date End Date Status Dosage Cardura [facility] [address]-23 8 MG Orally Once a day Dec 28, 2013 1 tablet by Oral route 1 time per day h s Losartan Potassium [facility] [address]-56 50 MG Orally Once a day 1 tablet Results No Known Results Summary Purpose [employer] Submission
--- OUTSIDE RECORDS SUMMARY | 2017-03-26 19:38 | XMS REPORT ---
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
--- OUTSIDE RECORDS SUMMARY | 2017-03-26 19:38 | XMS REPORT ---
Author ROSIE Cobb Organization [employer] Address Unknown Phone Unavailable Care Team Providers Care Tub Rider Name Role Phone ROSIE AMADO CP Unavailable Allergies No Known Allergies Problems Problem Type Condition ICD-9 Code Onset Dates Condition Status Problem Personal [...] Coronary atherosclerosis of unspecified type of vessel, [place] or graft 414.00 Active Problem Chronic kidney [...] and idiopathic peripheral neuropathy 356.9 Active Medications No Known Medications Results No Known Results Summary Purpose [employer] Submission
--- OUTSIDE RECORDS SUMMARY | 2017-03-26 19:38 | XMS REPORT ---
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 35167707 Problem Hypoxia R09.02 Active 429988121 Problem Pain in right knee M25.561 Active 93722050 Problem COPD (chronic obstructive pulmonary disease) J44.9 Active 47243933 Problem Dialysis patient Z99.2 Active 778314914 Problem Pain in left knee M25.562 Active 27095351 Problem Edema, unspecified type R60.9 Active 147964738 ALLERGIES No Information SOCIAL HISTORY Never Assessed PLAN OF CARE VITAL SIGNS MEDICATIONS Medication Instructions Dosage Frequency Start Date End Date Duration Status Hydrocodone-Acetaminophen 7.5-325 MG Orally every 6 hrs 1 tablet as needed 6h Sep, 28 Active RESULTS No Results PROCEDURES No Known procedures IMMUNIZATIONS No Known Immunizations MEDICAL (GENERAL) HISTORY Type Description Date Medical History hypertension Medical History Type 2 diabetes Medical History Chronic Kidney disease stage 4 Medical History anxiety Medical History Hyperlipidemia Medical History Neuropathy Surgical History laproscopy on left knee Surgical History Laser on both eyes Surgical History arteriovenous fistula placed at [facility] by Dr. Engel january 2015 Hospitalization History [facility] for chest pain Hospitalization History [facility] 2 night stay - SOB 2015
--- OUTSIDE RECORDS SUMMARY | 2017-03-26 19:38 | XMS REPORT ---
Author ROSIE Cobb Organization [employer] Address Unknown Phone Unavailable Care Team Providers Care Sports Medicine Masseur Name Role Phone ROSIE AMADO CP Unavailable Allergies No Known Allergies Problems Problem Type Condition Code Onset Dates Condition Status Problem Pain in left arm M79.602 Active Problem CAD (coronary artery disease) I25.10 Active Problem HTN (hypertension) I10 Active Problem senior living current use of insulin Z79.4 Active Problem [...] Start Date End Date Status Dosage Hydrocodone-Acetaminophen [facility] [address]-01 7.5-325 MG Orally every 6 hrs Jan 20, 2015 1 tablet as needed Results No Known Results Summary Purpose [employer] Submission
--- OUTSIDE RECORDS SUMMARY | 2017-03-26 19:39 | XMS REPORT ---
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
--- OUTSIDE RECORDS SUMMARY | 2017-03-26 19:39 | XMS REPORT ---
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
--- OUTSIDE RECORDS SUMMARY | 2017-03-26 19:39 | XMS REPORT ---
Author Author ROSIE AMADO [facility] Address [address] [place] [address] Care Team Providers Care Janitor Cleaner Name Role Phone MARYANN AMADONETTE Unavailable PROBLEMS Type Condition ICD9-CM Code [id number] Code Onset Dates Condition Status SNOMED Code Problem Pain in left arm M79.602 Active 608342274 Problem CAD (coronary artery disease) I25.10 Active 30645136 Problem HTN (hypertension) I10 Active 92982536 Assessment Kidney disease, chronic, stage IV (GFR 15-29 ml/min) N18.4 Dec, Active 264180085 Problem moving consultant current use of insulin Z79.4 Active 307508752 Problem 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 29273357 Problem Pain in right knee M25.561 Active 55057709 Problem Pain in left knee M25.562 Active 38396578 Problem Dialysis patient Z99.2 Active 303856766 Problem Kidney disease, chronic, stage IV (GFR 15-29 ml/min) N18.4 Active 769403974 Problem Edema, unspecified type R60.9 Active 965152794 Problem COPD (chronic obstructive pulmonary disease) J44.9 Active 24023483 ALLERGIES Substance Reaction Event Type Date Status Hydrocodone Failed UDS Non Drug Allergy Dec, Active Benzodiazepines Failed UDS Non Drug Allergy Dec, Active Amphetamine Failed UDS Non Drug Allergy Dec, Active SOCIAL HISTORY No smoking Hx information available PLAN OF CARE VITAL SIGNS Height 69 in 2016-01-02 Weight 266 lbs 2016-01-02 Heart Rate 90 bpm 2016-01-02 Respiratory Rate 20 2016-01-02 BMI 39.28 kg/m2 2016-01-02 Blood pressure systolic 140 mmHg 2016-01-02 Blood pressure diastolic 70 mmHg 2016-01-02 MEDICATIONS Medication Instructions Dosage Frequency Start Date End Date Duration Status Toprol XL 200 mg TAKE ONE TABLET BY MOUTH TWICE DAILY Active NovoLog Flexpen 100 UNIT/ML Subcutaneous 3 times a day 10 units with meals 8h Active PhosLo 667 MG Orally Three times a day 2 tabs 8h 30 Active Minoxidil 2.5 MG Orally twice a day 1 tablet 12h Sep, 30 day(s ) Active Hydrocodone-Acetaminophen 7.5-325 MG Orally every 6 hrs 1 tablet as needed 6h 15 Jan, 2015 28 days Active Symbicort 160-4.5 MCG/ACT Inhalation Twice a day 2 puffs 12h Jul, Active Torsemide 100 MG Orally on non Dialysis days 1 tablet 20 Active Atorvastatin Calcium 10 mg Orally Once a day 1 tablet 24h Oct, Active Ventolin HFA 108 (90 Base) MCG/ACT Inhalation every 4 hrs 2 puffs as needed 4h Jul, Active Lantus SoloStar 100 UNIT/ML INJECT 75 UNITS SUBCUTANEOUSLY ONCE DAILY Active Furosemide 40 mg Orally twice a day 1 tablet 12h Dec, 3 days Active Norvasc 10 MG TAKE ONE TABLET BY MOUTH DAILY 30 Active Hyzaar 100-25 MG Orally Once a day 1 tablet 24h August, 30 days Active Cardura 8 MG Orally Once a day 1 tablet by Oral route 1 time per day h s 24h 30 Active Potassium Chloride ER 10 MEQ Orally Once a day 1 tablet with food 24h Dec, Jan, 10 days Active RESULTS Name Result Date Reference Range [facility] 2016-01-02 Glucose, Serum 127 65-99 BUN 28 6-24 Creatinine, Serum 5.20 0.76-1.27 eGFR If NonAfricn Am 12 >59 eGFR If Africn Am 14 >59 BUN/Creatinine Ratio 5 9-20 Sodium, Serum 141 134-144 Potassium, Serum 3.8 3.5-5.2 Chloride, Serum 95 97-108 Carbon Dioxide, Total 36 18-29 Calcium, Serum 8.7 8.7-10.2 Protein, Total, Serum 6.6 6.0-8.5 Albumin, Serum 4.0 3.5-5.5 Globulin, Total 2.6 1.5-4.5 A/G Ratio 1.5 1.1-2.5 Bilirubin, Total 1.3 0.0-1.2 Alkaline Phosphatase, S 66 39-117 AST (SGOT) 19 0-40 ALT (SGPT) 19 0-44 PROCEDURES Procedure Date Ordered Related Diagnosis Body Site LAB NOT BILLED BY [facility] Jan 02, 2016 Office Visit, Est Pt., Level 4 Jan 02, 2016 IJEOMA, ROUTINE* Jan 02, 2016 IMMUNIZATIONS No Known Immunizations
--- OUTSIDE RECORDS SUMMARY | 2017-03-26 19:39 | XMS REPORT ---
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
--- OUTSIDE RECORDS SUMMARY | 2017-03-26 19:39 | XMS REPORT ---
Author ROSIE Cobb Organization [employer] Address Unknown Phone Unavailable Care Team Providers Care Component Assembler Name Role Phone AMADO ROSIE CP Unavailable Allergies No Known Allergies Problems [...] Coronary atherosclerosis of unspecified type of vessel, [place] or graft 414.00 Active Assessment Chronic kidney disease, Stage IV (severe) 585.4 Active Problem Chronic kidney disease, Stage IV [...] neuropathy 356.9 Active Medications No Known Medications Procedures Procedure Coding System Code Date VENIPUNCT, ROUTINE* CPT-4 57842 Nov 25, 2014 RENAL FUNCTION PANEL CPT-4 12211 Nov 25, 2014 Results Name Result Date Reference Range Unit Abnormality Flag ROUTINE VENIPUNCTURE RENAL PROFILE Summary Purpose eClinicalWorks Submission
--- OUTSIDE RECORDS SUMMARY | 2017-03-26 19:39 | XMS REPORT ---
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 Problem HTN (hypertension) I10 Active Problem Pain in left arm M79.602 Active Problem Pain in left knee M25.562 Active Problem Edema, unspecified type R60.9 Active Problem Pain in right knee M25.561 Active Problem Kidney disease, chronic, stage IV (GFR 15-29 ml/min) N18.4 Active Problem CAD (coronary artery disease) I25.10 Active Problem COPD (chronic obstructive pulmonary disease) J44.9 Active Problem Dialysis patient Z99.2 Active Assessment 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 Assessment HTN (hypertension) I10 Active Assessment CAD (coronary artery disease) I25.10 Active Assessment COPD (chronic obstructive pulmonary disease) J44.9 Active Assessment Kidney disease, chronic, stage IV (GFR 15-29 ml/min) N18.4 Active Assessment Dialysis patient Z99.2 Active Problem termite control servicer current use of insulin Z79.4 Active Medications Medication Code System Code Instructions Start Date End Date Status Dosage Furosemide [facility] [address]-87 40 mg Orally twice a day Dec 29, 2015 1 tablet Toprol XL [facility] [address]-42 200 mg TAKE ONE TABLET BY MOUTH TWICE DAILY Norvasc [facility] 52503319687 10 MG TAKE ONE TABLET BY MOUTH DAILY Minoxidil [facility] [address]-55 2.5 MG Orally twice a day October 03, 2015 1 tablet Atorvastatin Calcium [facility] [address]-27 10 MG Orally Once a day Jan 05, 2016 1 tablet Hydrocodone-Acetaminophen [facility] [address]-97 7.5-325 MG Orally every 6 hrs Jan 20, 2015 1 tablet as needed Torsemide [facility] [address]-61 100 MG Orally on non Dialysis days 1 tablet Hyzaar [facility] [address]-41 100-25 MG Orally Once a day September 01, 2015 1 tablet PhosLo [facility] 12073638884 667 MG Orally Three times a day 2 tabs Cardura [facility] 24219871055 8 MG Orally Once a day 1 tablet by Oral route 1 time per day h s Atorvastatin Calcium [facility] [address]-93 10 mg Orally Once a day October 31, 2015 1 tablet Procedures Procedure Coding System Code Date Office Visit, Est Pt., Level 4 CPT-4 42679 Jan 26, 2016 Vital Signs Date/Time: Jan 26, 2016 Cardiac Monitoring Heart Rate 100 bpm Weight 278 lbs Height 69 in BMI 41.05 Index Blood Pressure Diastolic 118 mmHg Blood Pressure Systolic 190 mmHg Results No Known Results Summary Purpose eClinicalWorks Submission
--- OUTSIDE RECORDS SUMMARY | 2017-03-26 19:39 | XMS REPORT ---
Author Author ROSIE AMADO Organization [facility] Address [address] [place] [address] Care Team Providers Care Industrial Sweeper Cleaner Name Role Phone ROSIE AMADO Unavailable PROBLEMS Type Condition ICD9-CM Code [id number] Code Onset Dates Condition Status SNOMED Code Problem HTN (hypertension) I10 Active 95449364 Problem Kidney disease, chronic, stage IV (GFR 15-29 ml/min) N18.4 Active 462134864 Problem CAD (coronary artery disease) I25.10 Active 57701270 Problem Pure hypercholesterolemia E78.00 Active 786607864 Problem 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 86016091 Problem Hypoxia R09.02 Active 144803719 Problem Pain in right knee M25.561 Active 43744212 Problem COPD (chronic obstructive pulmonary disease) J44.9 Active 17495041 Problem Dialysis patient Z99.2 Active 753570208 Problem Pain in left knee M25.562 Active 47770845 Problem Edema, unspecified type R60.9 Active 607304646 ALLERGIES No Information SOCIAL HISTORY Never Assessed PLAN OF CARE VITAL SIGNS MEDICATIONS Medication Instructions Dosage Frequency Start Date End Date Duration Status Hydrocodone-Acetaminophen 7.5-325 MG Orally every 6 hrs 1 tablet as needed 6h Sep, 28 Active Auryxia 1 GM 210 MG(Fe) Orally 2 times a day 1 tablets with meals 12h Sep, Dec, 30 day(s) Active Furosemide 40 mg Orally twice a day 1 tablet 12h Dec, 30 days Active RESULTS No Results PROCEDURES No Known procedures IMMUNIZATIONS No Known Immunizations MEDICAL (GENERAL) HISTORY Type Description Date Medical History hypertension Medical History Type 2 diabetes Medical History Chronic Kidney disease stage 4 Medical History anxiety Medical History Hyperlipidemia Medical History Neuropathy Surgical History laproscopy on left knee Surgical History Laser on both eyes Surgical History arteriovenous fistula placed at [facility] by Dr. Engel january 2015 Hospitalization History [facility] for chest pain Hospitalization History [facility] 2 night stay - SOB 2015
--- OUTSIDE RECORDS SUMMARY | 2017-03-26 19:40 | XMS REPORT ---
Author Author ANEUDY ROSIE Organization [facility] Address [address] [place] [address] Care Team Providers Care Import/Export Freight Forwarder Name Role Phone ROSIE AMADO Unavailable PROBLEMS Type Condition ICD9-CM Code [id number] Code Onset Dates Condition Status SNOMED Code Problem roasterman current use of insulin Z79.4 Active 431180343 Problem Pain in left arm M79.602 Active 613208141 Problem 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 35133638 Assessment Type 2 diabetes mellitus with diabetic nephropathy E11.21 Dec, Active 174583314 Problem Edema, unspecified type R60.9 Active 295553533 Problem COPD (chronic obstructive pulmonary disease) J44.9 Active 95228809 Problem CAD (coronary artery disease) I25.10 Active 70918037 Problem HTN (hypertension) I10 Active 08971931 Problem Dialysis patient Z99.2 Active 211636331 Problem Kidney disease, chronic, stage IV (GFR 15-29 ml/min) N18.4 Active 597815329 ALLERGIES Substance Reaction Event Type Date Status Hydrocodone Failed UDS Non Drug Allergy Dec, Active Benzodiazepines Failed UDS Non Drug Allergy Dec, Active Amphetamine Failed UDS Non Drug Allergy Dec, Active SOCIAL HISTORY No smoking Hx information available PLAN OF CARE Activity Details Pending Test CMP 2 - 3 Days,Reason: VITAL SIGNS Height 69 in 2015-12-29 Weight 277.6 lbs 2015-12-29 Heart Rate 112 bpm 2015-12-29 Respiratory Rate 28 2015-12-29 Oximetry on room air:89 % 2015-12-29 BMI 40.99 kg/m2 2015-12-29 MEDICATIONS Medication Instructions Dosage Frequency Start Date End Date Duration Status Furosemide 40 mg Orally twice a day 1 tablet 12h Dec, 3 days Active Toprol XL 200 mg TAKE ONE TABLET BY MOUTH TWICE DAILY Active Ventolin HFA 108 (90 Base) MCG/ACT Inhalation every 4 hrs 2 puffs as needed 4h Jul, Active Potassium Chloride ER 10 MEQ Orally Once a day 1 tablet with food 24h Dec, Jan, 10 days Active NovoLog Flexpen 100 UNIT/ML Subcutaneous 3 times a day 10 units with meals 8h Active Atorvastatin Calcium 10 mg Orally Once a day 1 tablet 24h Oct, Active Norvasc 10 MG TAKE ONE TABLET BY MOUTH DAILY 30 Active Lantus SoloStar 100 UNIT/ML INJECT 75 UNITS SUBCUTANEOUSLY ONCE DAILY Active Hyzaar 100-25 MG Orally Once a day 1 tablet 24h August, 30 days Active PhosLo 667 MG Orally Three times a day 2 tabs 8h 30 Active Torsemide 100 MG Orally on non Dialysis days 1 tablet 20 Active Symbicort 160-4.5 MCG/ACT Inhalation Twice a day 2 puffs 12h Jul, Active Minoxidil 2.5 MG Orally twice a day 1 tablet 12h Sep, 30 day(s ) Active Cardura 8 MG Orally Once a day 1 tablet by Oral route 1 time per day h s 24h 30 Active RESULTS Name Result Date Reference Range A1C (IN HOUSE) 2015-12-29 A1C IN HOUSE 5.9 4.3 - 5.6 % Previous A1c 7.2 Lot 0620 Exp date 10/2017 Xray : Chest (IN HOUSE) 2015-12-29 PROCEDURES Procedure Date Ordered Related Diagnosis Body Site MEASURE BLOOD OXYGEN LEVEL Dec 29, 2015 GLYCATED HEMOGLOBIN TEST Dec 29, 2015 LAB NOT BILLED BY [facility] Dec 29, 2015 CHEST X-RAY Dec 29, 2015 Office Visit, Est Pt., Level 4 Dec 29, 2015 IMMUNIZATIONS No Known Immunizations
--- OUTSIDE RECORDS SUMMARY | 2017-03-26 19:40 | XMS REPORT ---
Author ROSIE Cobb Organization [employer] Address Unknown Phone Unavailable Care Team Providers Care Paving Block Cutter Name Role Phone ROSIE AMADO CP Unavailable Allergies No Known Allergies Problems Problem Type Condition Code Onset Dates Condition Status Problem Anxiety state, unspecified 300.00 Active Problem Acute sinusitis, unspecified 461.9 Active Problem Acute upper respiratory infections of unspecified site 465.9 Active Problem CAD (coronary artery disease) I25.10 Active Problem Coronary atherosclerosis of unspecified type of vessel, [place] or graft 414.00 Active Problem HTN (hypertension) [...] Start Date End Date Status Dosage Hydrocodone-Acetaminophen [facility] [address]-62 7.5-325 MG Orally every 6 hrs Jan 20, 2015 Apr 05, 2015 1 tablet as needed Results No Known Results Summary Purpose eClinicalWorks Submission
--- OUTSIDE RECORDS SUMMARY | 2017-03-26 19:40 | XMS REPORT ---
Author Author ROSIE AMADO Organization [facility] Address [address] [place] [address] Care Team Providers Care Tool And Production Planner Name Role Phone MARYANN AMADONETTE Unavailable PROBLEMS Type Condition ICD9-CM Code [id number] Code Onset Dates Condition Status SNOMED Code Problem HTN (hypertension) I10 Active 77287351 Problem Kidney disease, chronic, stage IV (GFR 15-29 ml/min) N18.4 Active 220500379 Problem CAD (coronary artery disease) I25.10 Active 39268511 Problem Pure hypercholesterolemia E78.00 Active 837138374 Problem 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 55023264 Problem Hypoxia R09.02 Active 512680536 Problem Pain in right knee M25.561 Active 98030930 Problem COPD (chronic obstructive pulmonary disease) J44.9 Active 96748988 Problem Dialysis patient Z99.2 Active 384703568 Problem Pain in left knee M25.562 Active 67121180 Problem Edema, unspecified type R60.9 Active 283609725 ALLERGIES No Information SOCIAL HISTORY Never Assessed PLAN OF CARE VITAL SIGNS MEDICATIONS Medication Instructions Dosage Frequency Start Date End Date Duration Status Hydrocodone-Acetaminophen 7.5-325 MG Orally every 6 hrs 1 tablet as needed 6h August, 28 Active RESULTS No Results PROCEDURES No Known procedures IMMUNIZATIONS No Known Immunizations MEDICAL (GENERAL) HISTORY Type Description Date Medical History hypertension Medical History Type 2 diabetes Medical History Chronic Kidney disease stage 4 Medical History anxiety Medical History Hyperlipidemia Medical History Neuropathy Surgical History laproscopy on left knee Surgical History Laser on both eyes Surgical History arteriovenous fistula placed at [facility] by Dr. Engel january 2015 Hospitalization History [facility] for chest pain Hospitalization History [facility] 2 night stay - SOB 2015
--- OUTSIDE RECORDS SUMMARY | 2017-03-26 19:40 | XMS REPORT ---
Author ROSIE Cobb Organization [employer] Address Unknown Phone Unavailable Care Team Providers Care Christmas Tree Farmer Name Role Phone ROSIE AMADO CP Unavailable Allergies No Known Allergies Problems Problem Type Condition Code Onset Dates Condition Status Problem Anxiety state, unspecified 300.00 Active Problem Acute sinusitis, unspecified 461.9 Active Problem Acute upper respiratory infections of unspecified site 465.9 Active Problem CAD (coronary artery disease) I25.10 Active Problem Coronary atherosclerosis of unspecified type of vessel, [place] or graft 414.00 Active Problem HTN (hypertension) [...] Date Status Dosage Hydrocodone-Acetaminophen [facility] [address]-65 7.5-325 MG Orally every 6 hrs Jan 20, 2015 1 tablet as needed Results No Known Results Summary Purpose eClinicalWorks Submission
--- OUTSIDE RECORDS SUMMARY | 2017-03-26 19:40 | XMS REPORT ---
Author ROSIE Cobb Organization [employer] Address Unknown Phone Unavailable Care Team Providers Care Manager Disaster Recovery Name Role Phone ROSIE AMADO CP Unavailable [...] Coronary atherosclerosis of unspecified type of vessel, [place] or graft 414.00 Active Problem Chronic kidney [...] Instructions Start Date End Date Status Dosage NovoLog Flexpen [facility] [address]-61 100 UNIT/ML Subcutaneous 3 times a day October 14, 2014 10 units with meals Results No Known Results Summary Purpose eClinicalWorks Submission
--- OUTSIDE RECORDS SUMMARY | 2017-03-26 19:40 | XMS REPORT ---
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 [address]-69 7.5-325 MG Orally every 6 hrs Jan 20, 2015 1 tablet as needed Results No Known Results Summary Purpose eClinicalWorks Submission
--- OUTSIDE RECORDS SUMMARY | 2017-03-26 19:40 | XMS REPORT ---
Author Author ROSIE AMADO Organization [facility] Address [address] [place] [address] Care Team Providers Care Lacquer Spray Booth Operator Name Role Phone ROSIE AMADO Unavailable PROBLEMS Type Condition ICD9-CM Code [id number] Code Onset Dates Condition Status SNOMED Code Problem HTN (hypertension) I10 Active 56872763 Problem Kidney disease, chronic, stage IV (GFR 15-29 ml/min) N18.4 Active 851763072 Problem CAD (coronary artery disease) I25.10 Active 45439082 Problem Pure hypercholesterolemia E78.00 Active 578502655 Problem 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 72759743 Problem Hypoxia R09.02 Active 983580934 Problem Pain in right knee M25.561 Active 43357874 Problem COPD (chronic obstructive pulmonary disease) J44.9 Active 98172428 Problem Dialysis patient Z99.2 Active 614762806 Problem Pain in left knee M25.562 Active 71012024 Problem Edema, unspecified type R60.9 Active 120943679 ALLERGIES Unknown Allergies SOCIAL HISTORY No smoking Hx information available PLAN OF CARE VITAL SIGNS MEDICATIONS Unknown Medications RESULTS No Results PROCEDURES No Known procedures IMMUNIZATIONS No Known Immunizations
--- OUTSIDE RECORDS SUMMARY | 2017-03-26 19:40 | XMS REPORT ---
Author Author ROSIE AMADO Organization [facility] Address [address] [place] [address] Care Team Providers Care Liner Installer Name Role Phone ANEUDY ROSIE Unavailable PROBLEMS Type Condition ICD9-CM Code [id number] Code Onset Dates Condition Status SNOMED Code Problem Pain in left arm M79.602 Active 754684722 Problem CAD (coronary artery disease) I25.10 Active 79775237 Problem HTN (hypertension) I10 Active 57936187 Problem nursing home current use of insulin Z79.4 Active 607884848 Problem 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 57999114 Problem Pain in right knee M25.561 Active 99611283 Problem Pain in left knee M25.562 Active 68743189 Problem Dialysis patient Z99.2 Active 898569660 Problem Kidney disease, chronic, stage IV (GFR 15-29 ml/min) N18.4 Active 448831549 Problem Edema, unspecified type R60.9 Active 773662230 Problem COPD (chronic obstructive pulmonary disease) J44.9 Active 03298760 ALLERGIES Unknown Allergies SOCIAL HISTORY No smoking Hx information available PLAN OF CARE VITAL SIGNS MEDICATIONS Unknown Medications RESULTS No Results PROCEDURES No Known procedures IMMUNIZATIONS No Known Immunizations
--- OUTSIDE RECORDS SUMMARY | 2017-03-26 19:40 | XMS REPORT ---
Author ROSIE Cobb Organization [employer] Address Unknown Phone Unavailable Care Team Providers Care Material Manager Name Role Phone ROSIE AMADO CP Unavailable [...] Coronary atherosclerosis of unspecified type of vessel, [place] or graft 414.00 Active Problem Chronic kidney [...] Start Date End Date Status Dosage Hydrocodone-Acetaminophen [facility] [address]-18 7.5-325 MG Orally every 6 hrs Jan 20, 2015 1 tablet as needed Results No Known Results Summary Purpose eClinicalWorks Submission
--- OUTSIDE RECORDS SUMMARY | 2017-03-26 19:41 | XMS REPORT ---
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 91239794 Problem Pain in right knee M25.561 Active 22730783 Problem Pain in left knee M25.562 Active 56896693 Problem Dialysis patient Z99.2 Active 261925220 Problem Kidney disease, chronic, stage IV (GFR 15-29 ml/min) N18.4 Active 095069837 Problem Edema, unspecified type R60.9 Active 269952620 Problem COPD (chronic obstructive pulmonary disease) J44.9 Active 97821575 ALLERGIES Unknown Allergies SOCIAL HISTORY No smoking Hx information available PLAN OF CARE VITAL SIGNS MEDICATIONS Medication Instructions Dosage Frequency Start Date End Date Duration Status Potassium Chloride ER 10 MEQ Orally Once a day 1 tablet with food 24h Dec, Jan, 7 days Active Atorvastatin Calcium 10 MG Orally Once a day 1 tablet 24h Dec, Active Furosemide 40 mg Orally twice a day 1 tablet 12h Dec, 7 days Active Hydrocodone-Acetaminophen 7.5-325 MG Orally every 6 hrs 1 tablet as needed 6h Jan, 28 days Active RESULTS No Results PROCEDURES No Known procedures IMMUNIZATIONS No Known Immunizations
--- OUTSIDE RECORDS SUMMARY | 2017-03-26 19:41 | XMS REPORT ---
Author ROSIE Cobb [facility] e[employer] Address Unknown Phone Unavailable Care Team Providers Care Rasper Machine Operator Name Role Phone ROSIE AMADO CP Unavailable Allergies, Adverse Reactions, Alerts Substance Reaction Event Type Hydrocodone Failed UDS Non Drug Allergy Benzodiazepines Failed UDS Non Drug Allergy Amphetamine Failed UDS Non Drug Allergy Problems Problem Type Condition Code Onset Dates Condition Status Assessment COPD (chronic obstructive pulmonary disease) J44.9 Active Problem Essential hypertension 401.9 Active Problem Chronic kidney disease, Stage IV (severe) 585.4 Active Problem Dialysis patient Z99.2 Active Problem Kidney disease, chronic, stage IV (GFR 15-29 ml/min) N18.4 Active Problem COPD (chronic obstructive pulmonary disease) J44.9 Active Problem Pain in left arm M79.602 Active Problem Type 2 diabetes mellitus 250.00 Active Problem CAD (coronary artery disease) I25.10 Active Problem HTN (hypertension) I10 Active Assessment CAD (coronary artery disease) I25.10 Active Assessment Essential hypertension 401.9 Active Assessment Hypercholesteremia E78.0 Active Assessment Chronic kidney disease, Stage IV (severe) 585.4 Active Assessment HTN (hypertension) I10 Active Assessment Type 2 diabetes mellitus 250.00 Active Medications Medication Code System Code Instructions Start Date End Date Status Dosage Ventolin HFA [facility] [address]-61 108 (90 Base) MCG/ACT Inhalation every 4 hrs July 28, 2015 2 puffs as needed Cardura [facility] [address]-91 8 MG Orally Once a day Dec 28, 2013 1 tablet by Oral route 1 time per day h s Crestor [facility] 92513592614 20 MG TAKE ONE TABLET BY MOUTH DAILY Symbicort [facility] [address]-84 160-4.5 MCG/ACT Inhalation Twice a day July 2 puffs Losartan Potassium [facility] [address]-05 50 MG Orally Once a day 1 tablet Toprol XL [facility] 45755631899 200 MG TAKE ONE TABLET BY MOUTH TWICE DAILY Norvasc [facility] 47662978064 10 MG TAKE ONE TABLET BY MOUTH DAILY PhosLo [facility] 02773879935 667 MG Orally Three times a day 2 tabs Hydrocodone-Acetaminophen [facility] [address]-87 7.5-325 MG Orally every 6 hrs Jan 20, 2015 1 tablet as needed Ismael Benitez [facility] [address]-38 100 UNIT/ML INJECT 75 UNITS SUBCUTANEOUSLY ONCE DAILY NovoLog Flexpen [facility] [address]-98 100 UNIT/ML Subcutaneous 3 times a day October 14, 2014 10 units with meals Procedures Procedure Coding System Code Date [facility] C[facility]-4 NOBLL July 28, 2015 CHEST X-RAY CPT-4 78543 July 28, 2015 MEASURE BLOOD OXYGEN LEVEL CPT-4 73994 July 28, 2015 VENIPUNCT, ROUTINE* CPT-4 09010 July 28, 2015 Office Visit, Est Pt., Level 4 CPT-4 29317 July 28, 2015 Vital Signs Date/Time: July 28, 2015 Temperature 97.7 F Weight 278.8 lbs Height 69 in Oximetry 96 % Blood Pressure Diastolic 70 mmHg Blood Pressure Systolic 166 mmHg Cardiac Monitoring Heart Rate 104 bpm BMI 41.17 Index Results Name Result Date Reference Range Unit Abnormality Flag CMP ----Calcium, Serum 8.3 20150728 8.7-10.2 mg/dL L ----Carbon Dioxide, Total 26 20150728 18-29 mmol/L ----ALT (SGPT) 23 20150728 0-44 IU/L ----Creatinine, Serum 6.11 27396596 0.76-1.27 mg/dL H ----AST (SGOT) 18 20150728 0-40 IU/L ----eGFR If NonAfricn Am 10 20150728 >59 mL/min/1.73 L ----Alkaline Phosphatase, S 80 20150728 39-117 IU/L ----eGFR If Africn Am 12 20150728 >59 mL/min/1.73 L ----Bilirubin, Total 0.5 20150728 0.0-1.2 mg/dL ----BUN/Creatinine Ratio 7 20150728 9-20 L ----A/G Ratio 1.5 20150728 1.1-2.5 ----Sodium, Serum 139 38709135 134-144 mmol/L ----Globulin, Total 2.5 02324238 1.5-4.5 g/dL ----Potassium, Serum 4.7 20275766 3.5-5.2 mmol/L ----Glucose, Serum 198 24156315 65-99 mg/dL H ----Chloride, Serum 97 07092945 97-108 mmol/L ----Albumin, Serum 3.8 87033172 3.5-5.5 g/dL ----BUN 42 93935785 6-24 mg/dL H ----Protein, Total, Serum 6.3 99913595 6.0-8.5 g/dL ROUTINE VENIPUNCTURE CBC ----MCHC 33.4 59134287 31.5-35.7 g/dL ----MCH 28.4 11778958 26.6-33.0 pg ----Platelets 162 77404242 150-379 x10E3/uL ----RDW 14.4 48859468 12.3-15.4 % ----Immature Granulocytes 0 89457484 % ----Immature Grans (Abs) 0.0 18237759 0.0-0.1 x10E3/uL ----Lymphs 10 75986228 % ----Monocytes 8 90605292 % ----Neutrophils 79 86156814 % ----Neutrophils (Absolute) 4.9 28050122 1.4-7.0 x10E3/uL ----Hematocrit 29.9 79654046 37.5-51.0 % L ----Lymphs (Absolute) 0.6 75114585 0.7-3.1 x10E3/uL L ----MCV 85 60390279 79-97 fL ----RBC 3.52 18960241 4.14-5.80 x10E6/uL L ----Eos 3 74679988 % ----Basos 0 37789583 % ----Hemoglobin 10.0 09753581 12.6-17.7 g/dL L ----Baso (Absolute) 0.0 02449598 0.0-0.2 x10E3/uL ----WBC 6.2 55307156 3.4-10.8 x10E3/uL ----Monocytes(Absolute) 0.5 20150728 0.1-0.9 x10E3/uL ----Eos (Absolute) 0.2 20150728 0.0-0.4 x10E3/uL Summary Purpose eClinicalWorks Submission
--- OUTSIDE RECORDS SUMMARY | 2017-03-26 19:41 | XMS REPORT ---
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 90999946 Problem Hypoxia R09.02 Active 209108969 Problem Pain in right knee M25.561 Active 91114015 Problem COPD (chronic obstructive pulmonary disease) J44.9 Active 40229870 Problem Dialysis patient Z99.2 Active 345851947 Problem Pain in left knee M25.562 Active 24994361 Problem Edema, unspecified type R60.9 Active 326835050 ALLERGIES Unknown Allergies SOCIAL HISTORY No smoking Hx information available PLAN OF CARE VITAL SIGNS MEDICATIONS Medication Instructions Dosage Frequency Start Date End Date Duration Status Lantus SoloStar 100 UNIT/ML INJECT 75 UNITS SUBCUTANEOUSLY ONCE DAILY Active PhosLo 667 MG Orally Three times a day 2 tabs 8h 30 Active Atorvastatin Calcium 10 mg Orally Once a day 1 tablet 24h Oct, Active Symbicort 160-4.5 MCG/ACT Inhalation Twice a day 2 puffs 12h Jul, Active Hydrocodone-Acetaminophen 7.5-325 MG Orally every 6 hrs 1 tablet as needed 6h 15 Jan, 2015 28 days Active Furosemide 40 mg Orally twice a day 1 tablet 12h Dec, 7 days Active Hyzaar 100-25 MG Orally Once a day 1 tablet 24h August, Active Norvasc 10 MG TAKE ONE TABLET BY MOUTH DAILY 30 Active Atorvastatin Calcium 10 mg Orally Once a day 1 tablet 24h Dec, 30 days Active Toprol XL 200 mg TAKE ONE TABLET BY MOUTH TWICE DAILY Active Minoxidil 2.5 MG Orally twice a day 1 tablet 12h Sep, Active Torsemide 100 MG Orally on non Dialysis days 1 tablet Active Ventolin HFA 108 (90 Base) MCG/ACT Inhalation every 4 hrs 2 puffs as needed 4h Jul, Active Cardura 8 MG Orally Once a day 1 tablet by Oral route 1 time per day h s 24h Active RESULTS No Results PROCEDURES No Known procedures IMMUNIZATIONS No Known Immunizations
--- OUTSIDE RECORDS SUMMARY | 2017-03-26 19:42 | XMS REPORT | Continuity of Care Document ---
Author Author [facility] Address Unknown Phone Unavailable Allergies Active Description Code Type Severity Reaction Onset Reported/Identified Relationship to Patient Clinical Status Yes NKANo Known Allergies NKA Miscellaneous Allergy Unknown N/A 06/13/2005 Yes amphetamine Drug Allergy N/A N/A 02/18/2013 Yes Benzodiazepines Drug Allergy N/A N/A 02/18/2013 Yes hydrocodone Drug Allergy N/A N/A 02/18/2013 Medications There is no data. Problems Date Dx Coded Attending Type Code Diagnosis Diagnosed By 10/09/2007 NAY WEBER DO 477.9 RHINITIS ALLERGIC 10/09/2007 NAY WEBER DO 522.5 PERIAPICAL ABSCESS WITHOUT SINUS 10/09/2007 NAY WEBER DO 525.9 UNSPECIFIED DISORDER OF THE TEETH AND SUPPORTING STRUCTURES 10/09/2007 477.9 RHINITIS ALLERGIC 10/09/2007 522.5 PERIAPICAL ABSCESS WITHOUT SINUS 10/09/2007 525.9 UNSPECIFIED DISORDER OF THE TEETH AND SUPPORTING STRUCTURES 10/09/2007 RED ROWAN PHD 477.9 RHINITIS ALLERGIC 10/09/2007 RED ROWAN PHD 522.5 PERIAPICAL ABSCESS WITHOUT SINUS 10/09/2007 RED ROWAN PHD 525.9 UNSPECIFIED DISORDER OF THE TEETH AND SUPPORTING STRUCTURES 10/09/2007 477.9 RHINITIS ALLERGIC 10/09/2007 522.5 PERIAPICAL ABSCESS WITHOUT SINUS 10/09/2007 525.9 UNSPECIFIED DISORDER OF THE TEETH AND SUPPORTING STRUCTURES 10/09/2007 477.9 RHINITIS ALLERGIC 10/09/2007 522.5 PERIAPICAL ABSCESS WITHOUT SINUS 10/09/2007 525.9 UNSPECIFIED DISORDER OF THE TEETH AND SUPPORTING STRUCTURES 10/09/2007 RED ROWAN PHD 477.9 RHINITIS ALLERGIC 10/09/2007 RED ROWAN PHD 522.5 PERIAPICAL ABSCESS WITHOUT SINUS 10/09/2007 RED ROWAN PHD 525.9 UNSPECIFIED DISORDER OF THE TEETH AND SUPPORTING STRUCTURES 10/09/2007 NABIL ACKERMAN MD 477.9 RHINITIS ALLERGIC 10/09/2007 NABIL ACKERMAN MD 522.5 PERIAPICAL ABSCESS WITHOUT SINUS 10/09/2007 NABIL ACKERMAN MD 525.9 UNSPECIFIED DISORDER OF THE TEETH AND SUPPORTING STRUCTURES 10/09/2007 NAY WEBER DO 477.9 RHINITIS ALLERGIC 10/09/2007 NAY WEBER DO K 522.5 PERIAPICAL ABSCESS WITHOUT SINUS 10/09/2007 NAY WEBER DO K 525.9 UNSPECIFIED DISORDER OF THE TEETH AND SUPPORTING STRUCTURES 10/09/2007 NABIL ACKERMAN MD 477.9 RHINITIS ALLERGIC 10/09/2007 NABIL ACKERMAN MD 522.5 PERIAPICAL ABSCESS WITHOUT SINUS 10/09/2007 NABIL ACKERMAN MD 525.9 UNSPECIFIED DISORDER OF THE TEETH AND SUPPORTING STRUCTURES 10/09/2007 KEREN AIRPLANE DISPATCH CLERK, MAURY R 477.9 RHINITIS ALLERGIC 10/09/2007 KEREN AIRPLANE DISPATCH CLERK, MAURY R 522.5 PERIAPICAL ABSCESS WITHOUT SINUS 10/09/2007 KEREN AIRPLANE DISPATCH CLERK, MAURY R 525.9 UNSPECIFIED DISORDER OF THE TEETH AND SUPPORTING STRUCTURES 10/09/2007 GUS PRINCE NAY K 477.9 RHINITIS ALLERGIC 10/09/2007 APRIL WEBER DOA K 522.5 PERIAPICAL ABSCESS WITHOUT SINUS 10/09/2007 APRIL WEBER DOA K 525.9 UNSPECIFIED DISORDER OF THE TEETH AND SUPPORTING STRUCTURES 10/09/2007 GUS PRINCE NAY K 477.9 RHINITIS ALLERGIC 10/09/2007 GUS PRINCE NAY K 522.5 PERIAPICAL ABSCESS WITHOUT SINUS 10/09/2007 APRIL WEBER DOA K 525.9 UNSPECIFIED DISORDER OF THE TEETH AND SUPPORTING STRUCTURES 10/09/2007 477.9 RHINITIS ALLERGIC 10/09/2007 522.5 PERIAPICAL ABSCESS WITHOUT SINUS 10/09/2007 525.9 UNSPECIFIED DISORDER OF THE TEETH AND SUPPORTING STRUCTURES 10/09/2007 GUS PRINCE NAY K 477.9 RHINITIS ALLERGIC 10/09/2007 GUS PRINCE NAY K 522.5 PERIAPICAL ABSCESS WITHOUT SINUS 10/09/2007 APRIL WEBER DOA K 525.9 UNSPECIFIED DISORDER OF THE TEETH AND SUPPORTING STRUCTURES 10/09/2007 APRIL WEBER DOA K 477.9 RHINITIS ALLERGIC 10/09/2007 GUS PRINCE NAY K 522.5 PERIAPICAL ABSCESS WITHOUT SINUS 10/09/2007 NAY WEBER DO 525.9 UNSPECIFIED DISORDER OF THE TEETH AND SUPPORTING STRUCTURES 10/09/2007 DEDRICK PA-C, PATRICK M 477.9 RHINITIS ALLERGIC 10/09/2007 TSE PA-C, PATRICK M 522.5 PERIAPICAL ABSCESS WITHOUT SINUS 10/09/2007 TSE PA-C, PATRICK M 525.9 UNSPECIFIED DISORDER OF THE TEETH AND SUPPORTING STRUCTURES 10/09/2007 TSE PA-C, PATIRCK M 477.9 RHINITIS ALLERGIC 10/09/2007 TSE PA-C, PATRICK M 522.5 PERIAPICAL ABSCESS WITHOUT SINUS 10/09/2007 TSE PA-C, PATRICK M 525.9 UNSPECIFIED DISORDER OF THE TEETH AND SUPPORTING STRUCTURES 10/09/2007 NAY WEBER DO 477.9 RHINITIS ALLERGIC 10/09/2007 NAY WEBER DO 522.5 PERIAPICAL ABSCESS WITHOUT SINUS 10/09/2007 NAY WEBER DO 525.9 UNSPECIFIED DISORDER OF THE TEETH AND SUPPORTING STRUCTURES 10/21/2007 NAY WEBER DO 719.46 PAIN IN JOINT INVOLVING LOWER LEG 10/21/2007 NAY WEBER DO 724.5 BACKACHE UNSPECIFIED 10/21/2007 719.46 PAIN IN JOINT INVOLVING LOWER LEG 10/21/2007 724.5 BACKACHE UNSPECIFIED 10/21/2007 RED ROWAN PHD 719.46 PAIN IN JOINT INVOLVING LOWER LEG 10/21/2007 RED ROWAN PHD 724.5 BACKACHE UNSPECIFIED 10/21/2007 719.46 PAIN IN JOINT INVOLVING LOWER LEG 10/21/2007 724.5 BACKACHE UNSPECIFIED 10/21/2007 719.46 PAIN IN JOINT INVOLVING LOWER LEG 10/21/2007 724.5 BACKACHE UNSPECIFIED 10/21/2007 RED ROWAN PHD 719.46 PAIN IN JOINT INVOLVING LOWER LEG 10/21/2007 RED ROWAN PHD 724.5 BACKACHE UNSPECIFIED 10/21/2007 NABIL ACKERMAN MD 719.46 PAIN IN JOINT INVOLVING LOWER LEG 10/21/2007 NABIL ACKERMAN MD 724.5 BACKACHE UNSPECIFIED 10/21/2007 NAY WEBER DO 719.46 PAIN IN JOINT INVOLVING LOWER LEG 10/21/2007 WEBER DO, NAY K 724.5 BACKACHE UNSPECIFIED 10/21/2007 NABIL ACKERMAN MD 719.46 PAIN IN JOINT INVOLVING LOWER LEG 10/21/2007 NABIL ACKERMAN MD 724.5 BACKACHE UNSPECIFIED 10/21/2007 KEREN AIRPLANE DISPATCH CLERK, MAURY R 719.46 PAIN IN JOINT INVOLVING LOWER LEG 10/21/2007 KEREN SETH, MAURY R 724.5 BACKACHE UNSPECIFIED 10/21/2007 WEBER DO NAY K 719.46 PAIN IN JOINT INVOLVING LOWER LEG 10/21/2007 WEBER DO, NAY K 724.5 BACKACHE UNSPECIFIED 10/21/2007 WEBER DO, NAY K 719.46 PAIN IN JOINT INVOLVING LOWER LEG 10/21/2007 WEBER DO, NAY K 724.5 BACKACHE UNSPECIFIED 10/21/2007 719.46 PAIN IN JOINT INVOLVING LOWER LEG 10/21/2007 724.5 BACKACHE UNSPECIFIED 10/21/2007 WEBER DO NAY K 719.46 PAIN IN JOINT INVOLVING LOWER LEG 10/21/2007 WEBER DO, NAY K 724.5 BACKACHE UNSPECIFIED 10/21/2007 WEBER DO, NAY K 719.46 PAIN IN JOINT INVOLVING LOWER LEG 10/21/2007 WEBER DO, NAY K 724.5 BACKACHE UNSPECIFIED 10/21/2007 PATRICK TSE PA-C 719.46 PAIN IN JOINT INVOLVING LOWER LEG 10/21/2007 DEDRICK WILKINS-PATRICK Franco M 724.5 BACKACHE UNSPECIFIED 10/21/2007 PATRICK TSE PA-C M 719.46 PAIN IN JOINT INVOLVING LOWER LEG 10/21/2007 DEDRICK WILKINS-PATRICK Franco M 724.5 BACKACHE UNSPECIFIED 10/21/2007 WEBER DO, NAY K 719.46 PAIN IN JOINT INVOLVING LOWER LEG 10/21/2007 WEBER DO, NAY K 724.5 BACKACHE UNSPECIFIED 04/20/2008 GUS DO NAY K 401.9 HYPERTENSION (SYSTEMIC) 04/20/2008 401.9 HYPERTENSION ( SYSTEMIC) 04/20/2008 RED ROWAN PHD 401.9 HYPERTENSION (SYSTEMIC) 04/20/2008 401.9 HYPERTENSION ( SYSTEMIC) 04/20/2008 401.9 HYPERTENSION ( SYSTEMIC) 04/20/2008 ANUM LU RED Eden 401.9 HYPERTENSION (SYSTEMIC) 04/20/2008 NABIL ACKERMAN MD 401.9 HYPERTENSION (SYSTEMIC) 04/20/2008 NAY WEBER DO 401.9 HYPERTENSION (SYSTEMIC) 04/20/2008 NABIL ACKERMAN MD 401.9 HYPERTENSION (SYSTEMIC) 04/20/2008 KEREN SETH MAURY R 401.9 HYPERTENSION (SYSTEMIC) 04/20/2008 WEBER DO NAY K 401.9 HYPERTENSION (SYSTEMIC) 04/20/2008 WEBER DO NAY K 401.9 HYPERTENSION (SYSTEMIC) 04/20/2008 401.9 HYPERTENSION ( SYSTEMIC) 04/20/2008 WEBER DO, NAY K 401.9 HYPERTENSION (SYSTEMIC) 04/20/2008 WEBER DO NAY K 401.9 HYPERTENSION (SYSTEMIC) 04/20/2008 PATRICK TSE PA-C 401.9 HYPERTENSION (SYSTEMIC) 04/20/2008 PATRICK TSE PA-C 401.9 HYPERTENSION (SYSTEMIC) 04/20/2008 GUS PRINCE NAY K 401.9 HYPERTENSION (SYSTEMIC) 09/08/2008 WEBER DO NAY K 250.02 DIABETES II UNCONTROLLED 09/08/2008 GUS PRINCE NAY K 401.1 HYPERTENSION, BENIGN ESSENTIAL 09/08/2008 250.02 DIABETES II UNCONTROLLED 09/08/2008 401.1 HYPERTENSION, BENIGN ESSENTIAL 09/08/2008 ANUM PHD, RED Eden 250.02 DIABETES II UNCONTROLLED 09/08/2008 ANUM PHD, RED Eden 401.1 HYPERTENSION, BENIGN ESSENTIAL 09/08/2008 250.02 DIABETES II UNCONTROLLED 09/08/2008 401.1 HYPERTENSION, BENIGN ESSENTIAL 09/08/2008 250.02 DIABETES II UNCONTROLLED 09/08/2008 401.1 HYPERTENSION, BENIGN ESSENTIAL 09/08/2008 ANUM PHD, RED Eden 250.02 DIABETES II UNCONTROLLED 09/08/2008 ANUM PHD, RED Eden 401.1 HYPERTENSION, BENIGN ESSENTIAL 09/08/2008 NABIL ACKERMAN MD 250.02 DIABETES II UNCONTROLLED 09/08/2008 NABIL ACKERMAN MD 401.1 HYPERTENSION, BENIGN ESSENTIAL 09/08/2008 WEBER DO NAY K 250.02 DIABETES II UNCONTROLLED 09/08/2008 GUS PRINCE NAY K 401.1 HYPERTENSION, BENIGN ESSENTIAL 09/08/2008 NABIL ACKERMAN MD 250.02 DIABETES II UNCONTROLLED 09/08/2008 MEKA JONES, NABIL 401.1 HYPERTENSION, BENIGN ESSENTIAL 09/08/2008 MAURY VELIZ APRN R 250.02 DIABETES II UNCONTROLLED 09/08/2008 MAURY VELIZ APRN R 401.1 HYPERTENSION, BENIGN ESSENTIAL 09/08/2008 WEBER DO, NAY K 250.02 DIABETES II UNCONTROLLED 09/08/2008 WEBER DO, NAY K 401.1 HYPERTENSION, BENIGN ESSENTIAL 09/08/2008 WEBER DO, NAY K 250.02 DIABETES II UNCONTROLLED 09/08/2008 WEBER DO, NAY K 401.1 HYPERTENSION, BENIGN ESSENTIAL 09/08/2008 250.02 DIABETES II UNCONTROLLED 09/08/2008 401.1 HYPERTENSION, BENIGN ESSENTIAL 09/08/2008 WEBER DO, NAY K 250.02 DIABETES II UNCONTROLLED 09/08/2008 WEBER DO, NAY K 401.1 HYPERTENSION, BENIGN ESSENTIAL 09/08/2008 WEBER DO, NAY K 250.02 DIABETES II UNCONTROLLED 09/08/2008 WEBER DO, NAY K 401.1 HYPERTENSION, BENIGN ESSENTIAL 09/08/2008 PATRICK TSE PA-C M 250.02 DIABETES II UNCONTROLLED 09/08/2008 PATRICK TSE PA-C 401.1 HYPERTENSION, BENIGN ESSENTIAL 09/08/2008 PATRICK TSE PA-C M 250.02 DIABETES II UNCONTROLLED 09/08/2008 PATRICK TSE PA-C 401.1 HYPERTENSION, BENIGN ESSENTIAL 09/08/2008 WEBER DO, NAY K 250.02 DIABETES II UNCONTROLLED 09/08/2008 WEBER DO, NAY K 401.1 HYPERTENSION, BENIGN ESSENTIAL 09/20/2008 WEBER DO, NAY K 250.00 DIABETES MELLITUS TYPE 2 09/20/2008 GUS PRINCE NAY K 796.2 Blood Pressure Isolated Elevated 09/20/2008 250.00 DIABETES MELLITUS TYPE 2 09/20/2008 796.2 Blood Pressure Isolated Elevated 09/20/2008 RED ROWAN PHD 250.00 DIABETES MELLITUS TYPE 2 09/20/2008 RED ROWAN PHD 796.2 Blood Pressure Isolated Elevated 09/20/2008 250.00 DIABETES MELLITUS TYPE 2 09/20/2008 796.2 Blood Pressure Isolated Elevated 09/20/2008 250.00 DIABETES MELLITUS TYPE 2 09/20/2008 796.2 Blood Pressure Isolated Elevated 09/20/2008 BOEKHOUT PHD, RED A 250.00 DIABETES MELLITUS TYPE 2 09/20/2008 ANUM PHD, RED A 796.2 Blood Pressure Isolated Elevated 09/20/2008 NABIL ACKERMAN MD 250.00 DIABETES MELLITUS TYPE 2 09/20/2008 NABIL ACKERMAN MD 796.2 Blood Pressure Isolated Elevated 09/20/2008 WEBER DO, NAY K 250.00 DIABETES MELLITUS TYPE 2 09/20/2008 WEBER DO, NAY K 796.2 BLOOD PRESSURE ISOLATED ELEVATED 09/20/2008 NABIL ACKERMAN MD 250.00 DIABETES MELLITUS TYPE 2 09/20/2008 NABIL ACKERMAN MD 796.2 BLOOD PRESSURE ISOLATED ELEVATED 09/20/2008 KEREN AIRPLANE DISPATCH CLERK, MAURY R 250.00 DIABETES MELLITUS TYPE 2 09/20/2008 KEREN AIRPLANE DISPATCH CLERK, MAURY R 796.2 BLOOD PRESSURE ISOLATED ELEVATED 09/20/2008 WEBER DO, NAY K 250.00 DIABETES MELLITUS TYPE 2 09/20/2008 WEBER DO, NAY K 796.2 BLOOD PRESSURE ISOLATED ELEVATED 09/20/2008 WEBER DO, NAY K 250.00 DIABETES MELLITUS TYPE 2 09/20/2008 WEBER DO, NAY K 796.2 BLOOD PRESSURE ISOLATED ELEVATED 09/20/2008 250.00 DIABETES MELLITUS TYPE 2 09/20/2008 796.2 BLOOD PRESSURE ISOLATED ELEVATED 09/20/2008 WBEER DO, NAY K 250.00 DIABETES MELLITUS TYPE 2 09/20/2008 WEBER DO, NAY K 796.2 BLOOD PRESSURE ISOLATED ELEVATED 09/20/2008 WEBER DO, NAY K 250.00 DIABETES MELLITUS TYPE 2 09/20/2008 WEBER DO, NAY K 796.2 BLOOD PRESSURE ISOLATED ELEVATED 09/20/2008 PATRICK TSE PA-C 250.00 DIABETES MELLITUS TYPE 2 09/20/2008 PATRICK TSE PA-C 796.2 BLOOD PRESSURE ISOLATED ELEVATED 09/20/2008 PATRICK TSE PA-C 250.00 DIABETES MELLITUS TYPE 2 09/20/2008 PATRICK TSE PA-C 796.2 BLOOD PRESSURE ISOLATED ELEVATED 09/20/2008 WEBER DO, NAY K 250.00 DIABETES MELLITUS TYPE 2 09/20/2008 WEBER DO, NAY K 796.2 BLOOD PRESSURE ISOLATED ELEVATED 11/20/2008 WEBER DO, NAY K 372.30 CONJUNCTIVITIS UNSPECIFIED 11/20/2008 372.30 CONJUNCTIVITIS UNSPECIFIED 11/20/2008 ANUM LU, RED Eden 372.30 CONJUNCTIVITIS UNSPECIFIED 11/20/2008 372.30 CONJUNCTIVITIS UNSPECIFIED 11/20/2008 372.30 CONJUNCTIVITIS UNSPECIFIED 11/20/2008 ANUM LU, RED Eden 372.30 CONJUNCTIVITIS UNSPECIFIED 11/20/2008 NABIL ACKERMAN MD 372.30 CONJUNCTIVITIS UNSPECIFIED 11/20/2008 NAY WEBER DO K 372.30 CONJUNCTIVITIS UNSPECIFIED 11/20/2008 NABIL ACKERMAN MD 372.30 CONJUNCTIVITIS UNSPECIFIED 11/20/2008 MAURY VELIZ APRN 372.30 CONJUNCTIVITIS UNSPECIFIED 11/20/2008 WEBER DO, NAY K 372.30 CONJUNCTIVITIS UNSPECIFIED 11/20/2008 WEBER DO, NAY K 372.30 CONJUNCTIVITIS UNSPECIFIED 11/20/2008 372.30 CONJUNCTIVITIS UNSPECIFIED 11/20/2008 WEBER DO, NAY K 372.30 CONJUNCTIVITIS UNSPECIFIED 11/20/2008 WEBER DO, NAY K 372.30 CONJUNCTIVITIS UNSPECIFIED 11/20/2008 PATRICK TSE PA-C 372.30 CONJUNCTIVITIS UNSPECIFIED 11/20/2008 PATRICK TSE PA-C 372.30 CONJUNCTIVITIS UNSPECIFIED 11/20/2008 WEEBR DO, NAY K 372.30 CONJUNCTIVITIS UNSPECIFIED 12/30/2009 Ot 401.9 12/30/2009 Ot 719.06 12/30/2009 Ot 924.11 12/30/2009 Ot 959.7 12/30/2009 Ot E000.8 12/30/2009 Ot E814.7 12/30/2009 Ot V15.81 01/11/2010 NAY WEBER DO 729.5 PAIN IN LIMB 01/11/2010 729.5 PAIN IN LIMB 01/11/2010 RED ROWAN PHD 729.5 PAIN IN LIMB 01/11/2010 729.5 PAIN IN LIMB 01/11/2010 729.5 PAIN IN LIMB 01/11/2010 RED ROWAN PHD 729.5 PAIN IN LIMB 01/11/2010 NABIL ACKERMAN MD 729.5 PAIN IN LIMB 01/11/2010 NAY WEBER DO 729.5 PAIN IN LIMB 01/11/2010 NABIL ACKERMAN MD 729.5 PAIN IN LIMB 01/11/2010 MAURY VELIZ APRN R 729.5 PAIN IN LIMB 01/11/2010 WEBRE DO, NAY K 729.5 PAIN IN LIMB 01/11/2010 WEBER DO, NAY K 729.5 PAIN IN LIMB 01/11/2010 729.5 PAIN IN LIMB 01/11/2010 WEBER DO, NAY K 729.5 PAIN IN LIMB 01/11/2010 WEBER DO, NAY K 729.5 PAIN IN LIMB 01/11/2010 TSE PA-C, PATRICK M 729.5 PAIN IN LIMB 01/11/2010 TSE PA-C, PATRICK M 729.5 PAIN IN LIMB 01/11/2010 WEBER DO, NAY K 729.5 PAIN IN LIMB 01/11/2011 WEBER DO, NAY K 250.42 DIABETES W/ NEPHROPATHY, TYPE 2 - UNCONTROLLED 01/11/2011 GUS DOAPRILA K 727.62 NONTRAUMATIC TENDON RUPTURE BICEPS LEFT 01/11/2011 250.42 DIABETES W/ NEPHROPATHY, TYPE 2 - UNCONTROLLED 01/11/2011 727.62 NONTRAUMATIC TENDON RUPTURE BICEPS LEFT 01/11/2011 ANUM PHD, RED Eden 250.42 DIABETES W/ NEPHROPATHY, TYPE 2 - UNCONTROLLED 01/11/2011 ANUM PHD, ERD Eden 727.62 NONTRAUMATIC TENDON RUPTURE BICEPS LEFT 01/11/2011 250.42 DIABETES W/ NEPHROPATHY, TYPE 2 - UNCONTROLLED 01/11/2011 727.62 NONTRAUMATIC TENDON RUPTURE BICEPS LEFT 01/11/2011 250.42 DIABETES W/ NEPHROPATHY, TYPE 2 - UNCONTROLLED 01/11/2011 727.62 NONTRAUMATIC TENDON RUPTURE BICEPS LEFT 01/11/2011 ANUM PHD, RED Eden 250.42 DIABETES W/ NEPHROPATHY, TYPE 2 - UNCONTROLLED 01/11/2011 ANUM PHD, RED Eden 727.62 NONTRAUMATIC TENDON RUPTURE BICEPS LEFT 01/11/2011 NABIL ACKERMAN MD 250.42 DIABETES W/ NEPHROPATHY, TYPE 2 - UNCONTROLLED 01/11/2011 NABIL ACKERMAN MD 727.62 NONTRAUMATIC TENDON RUPTURE BICEPS LEFT 01/11/2011 NAY WEBER DO 250.42 DIABETES W/ NEPHROPATHY, TYPE 2 - UNCONTROLLED 01/11/2011 NAY WEBER DO 727.62 NONTRAUMATIC TENDON RUPTURE BICEPS LEFT 01/11/2011 MEKA JONES, NABIL 250.42 DIABETES W/ NEPHROPATHY, TYPE 2 - UNCONTROLLED 01/11/2011 NABIL ACKERMAN MD 727.62 NONTRAUMATIC TENDON RUPTURE BICEPS LEFT 01/11/2011 FELIPE VELIZ APRNINA R 250.42 DIABETES W/ NEPHROPATHY, TYPE 2 - UNCONTROLLED 01/11/2011 MAURY VELIZ APRN R 727.62 NONTRAUMATIC TENDON RUPTURE BICEPS LEFT 01/11/2011 WEBER DO NAY K 250.42 DIABETES W/ NEPHROPATHY, TYPE 2 - UNCONTROLLED 01/11/2011 WEBER DO, NAY K 727.62 NONTRAUMATIC TENDON RUPTURE BICEPS LEFT 01/11/2011 WEBER DO NAY K 250.42 DIABETES W/ NEPHROPATHY, TYPE 2 - UNCONTROLLED 01/11/2011 WEBER DO, NAY K 727.62 NONTRAUMATIC TENDON RUPTURE BICEPS LEFT 01/11/2011 250.42 DIABETES W/ NEPHROPATHY, TYPE 2 - UNCONTROLLED 01/11/2011 727.62 NONTRAUMATIC TENDON RUPTURE BICEPS LEFT 01/11/2011 WEBER DO NAY K 250.42 DIABETES W/ NEPHROPATHY, TYPE 2 - UNCONTROLLED 01/11/2011 WEBER DO, NAY K 727.62 NONTRAUMATIC TENDON RUPTURE BICEPS LEFT 01/11/2011 GUS PRINCE NAY K 250.42 DIABETES W/ NEPHROPATHY, TYPE 2 - UNCONTROLLED 01/11/2011 WEBER DO, NAY K 727.62 NONTRAUMATIC TENDON RUPTURE BICEPS LEFT 01/11/2011 PATRICK TSE PA-C 250.42 DIABETES W/ NEPHROPATHY, TYPE 2 - UNCONTROLLED 01/11/2011 PATRICK TSE PA-C 727.62 NONTRAUMATIC TENDON RUPTURE BICEPS LEFT 01/11/2011 PATRICK TSE PA-C 250.42 DIABETES W/ NEPHROPATHY, TYPE 2 - UNCONTROLLED 01/11/2011 PATRICK TSE PA-C 727.62 NONTRAUMATIC TENDON RUPTURE BICEPS LEFT 01/11/2011 NAY WEBER DO K 250.42 DIABETES W/ NEPHROPATHY, TYPE 2 - UNCONTROLLED 01/11/2011 WEBER DO NAY K 727.62 NONTRAUMATIC TENDON RUPTURE BICEPS LEFT 03/14/2011 Ot 250.00 03/14/2011 Ot 401.9 03/14/2011 Ot 522.5 03/14/2011 Ot 593.9 03/14/2011 Ot V15.81 11/29/2011 NAY WEBER DO 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 UNSPECIFIED 11/29/2011 NAY WEBER DO 368.8 OTHER SPECIFIED VISUAL DISTURBANCES 11/29/2011 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 UNSPECIFIED 11/29/2011 368.8 OTHER SPECIFIED VISUAL DISTURBANCES 11/29/2011 RED ROWAN PHD 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 UNSPECIFIED 11/29/2011 RED ROWAN PHD 368.8 OTHER SPECIFIED VISUAL DISTURBANCES 11/29/2011 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 UNSPECIFIED 11/29/2011 368.8 OTHER SPECIFIED VISUAL DISTURBANCES 11/29/2011 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 UNSPECIFIED 11/29/2011 368.8 OTHER SPECIFIED VISUAL DISTURBANCES 11/29/2011 RED ROWAN PHD 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 UNSPECIFIED 11/29/2011 RED ROWAN PHD 368.8 OTHER SPECIFIED VISUAL DISTURBANCES 11/29/2011 NABIL ACKERMAN MD 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 UNSPECIFIED 11/29/2011 NABIL ACKERMAN MD 368.8 OTHER SPECIFIED VISUAL DISTURBANCES 11/29/2011 NAY WEBER DO 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 UNSPECIFIED 11/29/2011 NAY WEBER DO 368.8 OTHER SPECIFIED VISUAL DISTURBANCES 11/29/2011 NABIL ACKERMAN MD 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 UNSPECIFIED 11/29/2011 NABIL ACKERMAN MD 368.8 OTHER SPECIFIED VISUAL DISTURBANCES 11/29/2011 MAURY VEILZ APRN 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 UNSPECIFIED 11/29/2011 MAURY VELIZ APRN 368.8 OTHER SPECIFIED VISUAL DISTURBANCES 11/29/2011 NAY WEBER DO 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 UNSPECIFIED 11/29/2011 NAY WEBER DO 368.8 OTHER SPECIFIED VISUAL DISTURBANCES 11/29/2011 NAY WEBER DO 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 UNSPECIFIED 11/29/2011 NAY WEBER DO 368.8 OTHER SPECIFIED VISUAL DISTURBANCES 11/29/2011 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 UNSPECIFIED 11/29/2011 368.8 OTHER SPECIFIED VISUAL DISTURBANCES 11/29/2011 NAY WEBER DO 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 UNSPECIFIED 11/29/2011 NAY WEBER DO 368.8 OTHER SPECIFIED VISUAL DISTURBANCES 11/29/2011 NAY WEBER DO 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 UNSPECIFIED 11/29/2011 NAY WEBER DO 368.8 OTHER SPECIFIED VISUAL DISTURBANCES 11/29/2011 PATRICK TSE PA-C 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 UNSPECIFIED 11/29/2011 PATRICK TSE PA-C 368.8 OTHER SPECIFIED VISUAL DISTURBANCES 11/29/2011 PATRICK TSE PA-C 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 UNSPECIFIED 11/29/2011 PATRICK TSE PA-C 368.8 OTHER SPECIFIED VISUAL DISTURBANCES 11/29/2011 NAY WEBER DO 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 UNSPECIFIED 11/29/2011 NAY WEBER DO 368.8 OTHER SPECIFIED VISUAL DISTURBANCES 01/17/2012 NAY WEBER DO 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 DYSFUNCTION WITH INHIBITED SEXUAL EXCITEMENT 01/17/2012 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 DYSFUNCTION WITH INHIBITED SEXUAL EXCITEMENT 01/17/2012 RED ROWAN PHD 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 DYSFUNCTION WITH INHIBITED SEXUAL EXCITEMENT 01/17/2012 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 DYSFUNCTION WITH INHIBITED SEXUAL EXCITEMENT 01/17/2012 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 DYSFUNCTION WITH INHIBITED SEXUAL EXCITEMENT 01/17/2012 RED ROWAN PHD 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 DYSFUNCTION WITH INHIBITED SEXUAL EXCITEMENT 01/17/2012 NABIL ACKERMAN MD 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 DYSFUNCTION WITH INHIBITED SEXUAL EXCITEMENT 01/17/2012 NAY WEBER DO 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 DYSFUNCTION WITH INHIBITED SEXUAL EXCITEMENT 01/17/2012 NABIL ACKERMAN MD 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 DYSFUNCTION WITH INHIBITED SEXUAL EXCITEMENT 01/17/2012 K[employer]EN [employer]PL[employer] 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 CLERK, MAURY R 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 DYSFUNCTION WITH INHIBITED SEXUAL EXCITEMENT 01/17/2012 WEBER DO NAY K 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 DYSFUNCTION WITH INHIBITED SEXUAL EXCITEMENT 01/17/2012 WEBER DO NAY K 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9 SINUSITIS ACUTE 05/13/2012 RED ROWAN PHD 461.9 SINUSITIS ACUTE 05/13/2012 461.9 SINUSITIS ACUTE 05/13/2012 461.9 SINUSITIS ACUTE 05/13/2012 RED ROWAN PHD 461.9 SINUSITIS ACUTE 05/13/2012 NABIL ACKERMAN MD 461.9 SINUSITIS ACUTE 05/13/2012 NAY WEBER DO 461.9 SINUSITIS ACUTE 05/13/2012 NABIL ACKERMAN MD 461.9 SINUSITIS ACUTE 05/13/2012 MAURY VELIZ APRN 461.9 SINUSITIS ACUTE 05/13/2012 WEBER APRIL PRINCEA K 461.9 SINUSITIS ACUTE 05/13/2012 APRIL WEBER DOA K 461.9 SINUSITIS ACUTE 05/13/2012 461.9 SINUSITIS ACUTE 05/13/2012 WEBER DO NAY K 461.9 SINUSITIS ACUTE 05/13/2012 WEBER APRIL PRINCEA K 461.9 SINUSITIS ACUTE 05/13/2012 PATRICK TSE PA-C 461.9 SINUSITIS ACUTE 05/13/2012 PATRICK TSE PA-C 461.9 SINUSITIS ACUTE 05/13/2012 WEBER NAY PRINCE 461.9 SINUSITIS ACUTE 05/16/2012 RED ROWAN PHD 300.00 AN ANXIETY UNSPEC 05/16/2012 300.00 AN ANXIETY UNSPEC 05/16/2012 300.00 AN ANXIETY UNSPEC 05/16/2012 ANUM LU, RED A 300.00 AN ANXIETY UNSPEC 05/16/2012 NABIL ACKERMAN MD 300.00 AN ANXIETY UNSPEC 05/16/2012 WEBER DO, NAY K 300.00 AN ANXIETY UNSPEC 05/16/2012 NABIL ACKERMAN MD 300.00 AN ANXIETY UNSPEC 05/16/2012 MAURY VELIZ APRN 300.00 AN ANXIETY UNSPEC 05/16/2012 WEBER DO, NAY K 300.00 AN ANXIETY UNSPEC 05/16/2012 WEBER DO, NAY K 300.00 AN ANXIETY UNSPEC 05/16/2012 300.00 AN ANXIETY UNSPEC 05/16/2012 WEBER DO, NAY K 300.00 AN ANXIETY UNSPEC 05/16/2012 WEBER DO, NAY K 300.00 AN ANXIETY UNSPEC 05/16/2012 PATRICK TSE PA-C 300.00 AN ANXIETY UNSPEC 05/16/2012 PATRICK TSE PA-C 300.00 AN ANXIETY UNSPEC 05/16/2012 WEBER DO, NAY K 300.00 AN ANXIETY UNSPEC 02/14/2013 JOE JESSICA PRINCE Ot 250.02 DIAB JONATHAN WO COMPL, TYPE II OR UNSPEC TY 02/14/2013 JESSICA DIAZ DO Ot 305.70 AMPHETAMINE ABUSE-UNSPEC 02/14/2013 JESSICA DIAZ DO Ot 401.9 HYPERTENSION NOS 02/14/2013 JESSICA DIAZ DO Ot 784.7 EPISTAXIS 02/14/2013 JESSICA DIAZ DO Ot V04.81 ND FOR PROPHYLACTIC VACCIN AND INOCULATI 02/14/2013 JESSICA DIAZ DO Ot V15.81 HX OF PAST NONCOMPLIANCE 02/16/2013 NABIL ACKERMAN MD 784.7 EPISTAXIS 02/16/2013 NAY WEBER DO 784.7 EPISTAXIS 02/16/2013 NABIL ACKERMAN MD 784.7 EPISTAXIS 02/16/2013 MAURY VELIZ APRN 784.7 EPISTAXIS 02/16/2013 NAY WEBER DO 784.7 EPISTAXIS 02/16/2013 NAY WEBER DO 784.7 EPISTAXIS 02/16/2013 784.7 EPISTAXIS 02/16/2013 WEBER DO, NAY K 784.7 EPISTAXIS 02/16/2013 WEBER DO, NAY K 784.7 EPISTAXIS 02/16/2013 DEDRICK VELOZ, PATRICK Resendiz 784.7 EPISTAXIS 02/16/2013 DEDRICK VELOZ, PATRICK Resendiz 784.7 EPISTAXIS 02/16/2013 WEBER DO, NAY K 784.7 EPISTAXIS 04/09/2013 WEBER DO, NAY K 892.0 OPEN WOUND OF FOOT EXCEPT TOE(S) ALONE WITHOUT COMPLICATION 04/09/2013 NABIL ACKERMAN MD 892.0 OPEN WOUND OF FOOT EXCEPT TOE(S) ALONE WITHOUT COMPLICATION 04/09/2013 MAURY VELIZ APRN R 892.0 OPEN WOUND OF FOOT EXCEPT TOE(S) ALONE WITHOUT COMPLICATION 04/09/2013 WEBER DO, NAY K 892.0 OPEN WOUND OF FOOT EXCEPT TOE(S) ALONE WITHOUT COMPLICATION 04/09/2013 WEBER DO, NAY K 892.0 OPEN WOUND OF FOOT EXCEPT TOE(S) ALONE WITHOUT COMPLICATION 04/09/2013 892.0 OPEN WOUND OF FOOT EXCEPT TOE(S) ALONE WITHOUT COMPLICATION 04/09/2013 WEBER DO, NAY K 892.0 OPEN WOUND OF FOOT EXCEPT TOE(S) ALONE WITHOUT COMPLICATION 04/09/2013 WEBER DO, NAY K 892.0 OPEN WOUND OF FOOT EXCEPT TOE(S) ALONE WITHOUT COMPLICATION 04/09/2013 DEDRICK VELOZ, PATRICK Resendiz 892.0 OPEN WOUND OF FOOT EXCEPT TOE(S) ALONE WITHOUT COMPLICATION 04/09/2013 PATRICK TSE PA-C 892.0 OPEN WOUND OF FOOT EXCEPT TOE(S) ALONE WITHOUT COMPLICATION 04/09/2013 WEBER DO, NAY K 892.0 OPEN WOUND OF FOOT EXCEPT TOE(S) ALONE WITHOUT COMPLICATION 07/13/2013 NABIL ACKERMAN MD 465.9 ACUTE UPPER RESPIRATORY INFECTIONS OF UNSPECIFIED SITE 07/13/2013 MAURY VELIZ APRN R 465.9 ACUTE UPPER RESPIRATORY INFECTIONS OF UNSPECIFIED SITE 07/13/2013 WEBER DO, NAY K 465.9 ACUTE UPPER RESPIRATORY INFECTIONS OF UNSPECIFIED SITE 07/13/2013 WEBER DO, NAY K 465.9 ACUTE UPPER RESPIRATORY INFECTIONS OF UNSPECIFIED SITE 07/13/2013 465.9 ACUTE UPPER RESPIRATORY INFECTIONS OF UNSPECIFIED SITE 07/13/2013 WEBER DO, NAY K 465.9 ACUTE UPPER RESPIRATORY INFECTIONS OF UNSPECIFIED SITE 07/13/2013 GUS PRINCE NAY K 465.9 ACUTE UPPER RESPIRATORY INFECTIONS OF UNSPECIFIED SITE 07/13/2013 PATRICK TSE PA-C 465.9 ACUTE UPPER RESPIRATORY INFECTIONS OF UNSPECIFIED SITE 07/13/2013 PATRICK TSE PA-C 465.9 ACUTE UPPER RESPIRATORY INFECTIONS OF UNSPECIFIED SITE 07/13/2013 GUS PRINCE NAY K 465.9 ACUTE UPPER RESPIRATORY INFECTIONS OF UNSPECIFIED SITE 07/14/2013 PATRICK HENRY MD Ot 388.70 OTALGIA NOS 07/14/2013 PATRICK HENRY MD Ot 401.9 HYPERTENSION NOS 07/14/2013 PATRICK HENRY MD Ot 462 ACUTE PHARYNGITIS 12/04/2013 MAURY VELIZ APRN 786.50 CHEST PAIN 12/04/2013 WEBER DO, NAY K 786.50 CHEST PAIN 12/04/2013 WEBER DO, NAY K 786.50 CHEST PAIN 12/04/2013 786.50 CHEST PAIN 12/04/2013 WEBER DO, NAY K 786.50 CHEST PAIN 12/04/2013 WEBER DO, NAY K 786.50 CHEST PAIN 12/04/2013 PATRICK TSE PA-C 786.50 CHEST PAIN 12/04/2013 PATRICK TSE PA-C 786.50 CHEST PAIN 12/04/2013 WEBER DO, NAY K 786.50 CHEST PAIN 12/05/2013 WEBER DO, NAY K Ot 250.42 DIAB W RENAL MANIFEST, TYPE II OR UNSPEC 12/05/2013 WEBER DO, NAY K Ot 272.4 HYPERLIPIDEMIA NEC/NOS 12/05/2013 WEBER DO, NAY K Ot 305.1 TOBACCO USE DISORDER 12/05/2013 WEBER DO, NAY K Ot 403.90 HYPTNSV CHR KID DIS, UNSPEC, W CHR KD ST 12/05/2013 WEBER DO, NAY K Ot 585.9 CHRONIC KIDNEY DISEASE, UNSPECIFIED 12/05/2013 WEBER DO, NAY K Ot 786.50 CHEST PAIN NOS 12/05/2013 WEBER DO, NAY K Ot V15.81 HX OF PAST NONCOMPLIANCE 12/05/2013 WEBER DO, NAY K Ot V58.67 LONG-TERM (CURRENT) USE OF INSULIN 12/28/2013 GUS DO NAY K 356.9 UNSPECIFIED IDIOPATHIC PERIPHERAL NEUROPATHY 12/28/2013 GUS NAY PRINCE K V15.81 PERSONAL HISTORY OF NONCOMPLIANCE WITH MEDICAL TREATMENT PRESENTING HAZARDS TO HEALTH 12/28/2013 GUS NAY PRINCE K 356.9 UNSPECIFIED IDIOPATHIC PERIPHERAL NEUROPATHY 12/28/2013 GUS NAY PRINCE K V15.81 PERSONAL HISTORY OF NONCOMPLIANCE WITH MEDICAL TREATMENT PRESENTING HAZARDS TO HEALTH 12/28/2013 356.9 UNSPECIFIED IDIOPATHIC PERIPHERAL NEUROPATHY 12/28/2013 V15.81 PERSONAL HISTORY OF NONCOMPLIANCE WITH MEDICAL TREATMENT PRESENTING HAZARDS TO HEALTH 12/28/2013 GUS NAY PRINCE K 356.9 UNSPECIFIED IDIOPATHIC PERIPHERAL NEUROPATHY 12/28/2013 GUS NAY PRINCE K V15.81 PERSONAL HISTORY OF NONCOMPLIANCE WITH MEDICAL TREATMENT PRESENTING HAZARDS TO HEALTH 12/28/2013 WEBER NAY PRINCE 356.9 UNSPECIFIED IDIOPATHIC PERIPHERAL NEUROPATHY 12/28/2013 GUS NAY PRINCE K V15.81 PERSONAL HISTORY OF NONCOMPLIANCE WITH MEDICAL TREATMENT PRESENTING HAZARDS TO HEALTH 12/28/2013 PATRICK TSE PA-C 356.9 UNSPECIFIED IDIOPATHIC PERIPHERAL NEUROPATHY 12/28/2013 PATRICK TSE PA-C V15.81 PERSONAL HISTORY OF NONCOMPLIANCE WITH MEDICAL TREATMENT PRESENTING HAZARDS TO HEALTH 12/28/2013 PATRICK TSE PA-C 356.9 UNSPECIFIED IDIOPATHIC PERIPHERAL NEUROPATHY 12/28/2013 PATRICK TSE PA-C V15.81 PERSONAL HISTORY OF NONCOMPLIANCE WITH MEDICAL TREATMENT PRESENTING HAZARDS TO HEALTH 12/28/2013 WEBER NAY PRINCE 356.9 UNSPECIFIED IDIOPATHIC PERIPHERAL NEUROPATHY 12/28/2013 NAY WEBER DO V15.81 PERSONAL HISTORY OF NONCOMPLIANCE WITH MEDICAL TREATMENT PRESENTING HAZARDS TO HEALTH 01/14/2014 DONNA SANTIAGO Ot 847.9 SPRAIN OF BACK NOS 01/14/2014 DONNA SANTIAGO Ot 959.19 OTH INJURY OF OTHER SITES OF TRUNK 01/14/2014 DONNA SANTIAGO Ot E000.8 OTHER EXTERNAL CAUSE STATUS 01/14/2014 DONNA SANTIAGO Ot E927.0 OVEREXERTION FROM SUDDEN STRENUOUS MOVEM 05/06/2014 PATRICK TSE PA-C 250.40 DIABETES WITH RENAL MANIFESTATIONS TYPE II OR UNSPECIFIED TYPE NOT STATED UNCONTROLLED 05/06/2014 PATRICK TSE PA-C 414.00 CORONARY ATHEROSCLEROSIS OF UNSPECIFIED TYPE OF VESSEL [place] OR GRAFT 05/06/2014 PATRICK TSE PA-C 583.81 NEPHRITIS AND NEPHROPATHY NOT SPECIFIED ACUTE OR CHRONIC IN DISEASES CLASSIFIED ELSEWHERE 05/06/2014 PATRICK TSE PA-C 585.4 CHRONIC KIDNEY DISEASE STAGE IV (SEVERE) 05/06/2014 PATRICK TSE PA-C 791.0 PROTEINURIA 05/06/2014 NAY WEBER DO 250.40 DIABETES WITH RENAL MANIFESTATIONS TYPE II OR UNSPECIFIED TYPE NOT STATED UNCONTROLLED 05/06/2014 NAY WEBER DO 414.00 CORONARY ATHEROSCLEROSIS OF UNSPECIFIED TYPE OF VESSEL [place] OR GRAFT 05/06/2014 NAY WEBER DO 583.81 NEPHRITIS AND NEPHROPATHY NOT SPECIFIED ACUTE OR CHRONIC IN DISEASES CLASSIFIED ELSEWHERE 05/06/2014 GUS PRINCE NAY K 585.4 CHRONIC KIDNEY DISEASE STAGE IV (SEVERE) 05/06/2014 NAY WEBER DO 791.0 PROTEINURIA 05/27/2014 JOSE RAUL JONES, ADELIA S Ot 585.4 06/25/2014 NAY WEBER DO 272.4 DYSLIPIDEMIA 10/20/2014 JOSE RAUL JONES, ADELIA S Ot 585.4 02/27/2015 JOSE RAUL JONES, ADELIA S Ot 585.4 02/27/2015 KIZZY CHRISTOPHER MD (DDU) Ot V68.01 02/27/2015 KIZZY CHRISTOPHER MD (DDU) Ot V82.89 02/27/2015 JESSICA DIAZ DO Ot F17.210 NICOTINE DEPENDENCE, CIGARETTES, UNCOMPL 02/27/2015 JESSICA DIAZ DO Ot J40 BRONCHITIS, NOT SPECIFIED ACUTE OR CH 02/27/2015 JOE PRINCE JESSICA K Ot R07.89 OTHER CHEST PAIN 02/27/2015 JOE JESSICA K Ot R16.1 SPLENOMEGALY, NOT ELSEWHERE CLASSIFIED 03/23/2015 JOSE RAUL JONES, AHMED S Ot 585.4 03/23/2015 KIZZY CHRISTOPHER MD (DDU) Ot V68.01 03/23/2015 KIZZY CHRISTOPHER MD (DDU) Ot V82.89 04/07/2015 SWATHI FRANCO MD, V Ot E11.22 04/07/2015 SWATHI FRANCO MD, V Ot E11.29 04/07/2015 SWATHI FRANCO MD, V Ot E21.1 04/07/2015 SWATHI FRANCO MD, V Ot E87.5 04/07/2015 SWATHI FRANCO MD, V Ot I12.9 04/07/2015 SWATHI FRANCO MD, V Ot N18.4 06/09/2015 JONATHAN MOORE APRN Ot E11.9 TYPE 2 DIABETES MELLITUS WITHOUT COMPLIC 06/09/2015 JONATHAN MOORE APRN Ot I12.0 HYP CHR KIDNEY DISEASE W STAGE 5 CHR KID 06/09/2015 JONATHAN MOORE APRN Ot N18.6 END STAGE RENAL DISEASE 06/09/2015 JONATHAN MOORE APRN Ot S50.02XA CONTUSION OF LEFT ELBOW, INITIAL ENCOUNT 06/09/2015 JONATHAN MOORE APRN Ot W10.9XXA FALL (ON) (FROM) UNSPECIFIED STAIRS AND 06/09/2015 JONATHAN MOORE APRN Ot Y92.[address] 06/09/2015 JONATHAN MOORE APRN Ot Y99.8 OTHER EXTERNAL CAUSE STATUS 06/09/2015 JONATHAN MOORE APRN Ot Z79.899 OTHER CARE HOME (CURRENT) DRUG THERAPY 06/09/2015 JONATHAN MOORE APRN Ot Z99.2 DEPENDENCE ON RENAL DIALYSIS 03/09/2017 JOSE RAUL JONES, [facility] S Ot 585.4 CHRONIC KIDNEY DISEASE, STAGE IV (SEVERE 03/09/2017 KIZZY CHRISTOPHER MD (DDU) Ot V68.01 DISABILITY EXAMINATION 03/09/2017 KIZZY CHRISTOPHER MD (DDU) Ot V82.89 SCREEN FOR OTH SPECIF CONDITIONS 03/09/2017 SWATHI FRANCO MD, V Ot E11.22 TYPE 2 DIABETES MELLITUS W DIABETIC HEALTH EDITOR 03/09/2017 SWATHI FRANCO MD, V Ot E11.29 TYPE 2 DIABETES MELLITUS W OTH DIABETIC 03/09/2017 SWATHI FRANCO MD, V Ot 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, NOT ELSEW 03/09/2017 SWATHI FRANCO MD, V Ot E87.5 HYPERKALEMIA 03/09/2017 SWATHI FRANCO MD, V Ot I12.9 HYPERTENSIVE CHRONIC KIDNEY DISEASE W ST 03/09/2017 SWATHI FRANCO MD, V Ot N18.4 CHRONIC KIDNEY DISEASE, STAGE 4 (SEVERE) 03/12/2017 SIMI DODGE MD, Ot E11.9 TYPE 2 DIABETES MELLITUS WITHOUT COMPLIC 03/12/2017 SIMI DODGE MD, Ot E78.00 PURE HYPERCHOLESTEROLEMIA, UNSPECIFIED 03/12/2017 SIMI DODGE MD Ot I10 ESSENTIAL (PRIMARY) HYPERTENSION 03/12/2017 SIMI DODGE MD, Ot I60.9 NONTRAUMATIC SUBARACHNOID HEMORRHAGE, UN 03/12/2017 SIMI DODGE MD, Ot R25.8 OTHER ABNORMAL INVOLUNTARY MOVEMENTS 03/12/2017 SIMI DODGE MD, Ot Z99.2 DEPENDENCE ON RENAL DIALYSIS 03/19/2017 SIMI DODGE MD, Ot E11.9 TYPE 2 DIABETES MELLITUS WITHOUT COMPLIC 03/19/2017 SIMI DODGE MD, Ot E78.00 PURE HYPERCHOLESTEROLEMIA, UNSPECIFIED 03/19/2017 SIMI DODGE MD, Ot I10 ESSENTIAL (PRIMARY) HYPERTENSION 03/19/2017 SIMI DODGE MD, Ot I60.9 NONTRAUMATIC SUBARACHNOID HEMORRHAGE, UN 03/19/2017 SIMI DODGE MD Ot R25.8 OTHER ABNORMAL INVOLUNTARY MOVEMENTS 03/19/2017 SIMI DODGE MD, Ot Z99.2 DEPENDENCE ON RENAL DIALYSIS Procedures Code [place] [address] PSYCH DIAGNOSTIC EVALUATION 05/19/2012 80990 PSYCHO TESTING 1 HR W COMP 07/01/2012 13573 PSYTX PT&/FAMILY 45 MINUTES 07/11/2012 FOOT EXAM PERFORMED 04/09/2013 72078 MICROALBUMIN 04/09/2013 96128 A1C (IN-HOUSE) 04/09/2013 59360 MICRO ALBUMIN-IN HOUSE 04/09/2013 22557 ROUTINE VENIPUNCTURE 07/13/[id number] GFR CALC (RESULT ONLY) 07/13/2013 22733 CMP 07/13/2013 2000 BLOOD PRESSURE CHECK 07/16/2013 39558 UA W/ CULTURE IF INDICATED 12/08/2013 FOOT EXAM PERFORMED 12/28/2013 68544 A1C (IN-HOUSE) 01/25/2014 56398 ROUTINE VENIPUNCTURE 03/09/2014 FOOT EXAM PERFORMED 03/09/2014 NEPHROLOG CAREN NEPHROLOGY, 03/09/2014 92600 CMP 03/09/2014 0226153 GFR CALC (RESULT ONLY) 03/09/2014 84369 ROUTINE VENIPUNCTURE 04/20/2014 02153 LIPID PANEL 04/20/2014 76905 ROUTINE VENIPUNCTURE 06/25/2014 55958 CBC 06/25/2014 72901 RENAL PROFILE 06/25/2014 03743 MAGNESIUM 06/25/2014 07815 URIC ACID 06/25/2014 5941246 GFR CALC (RESULT ONLY) 06/25/2014 99333 VITAMIN D 25-HYDROXY (D2,D3 , TOTAL) 06/25/2014 27675 CPK 06/25/2014 5233096 PTH INTACT ZEUS (RESULT ONLY) 06/25/2014 8497059 CALCIUM (RESULT ONLY) 06/25/2014 91054 URINE PROTEIN 24 HOUR 06/28/2014 [id number] URINE CREATININE CLEARANCE 24 06/28/2014 48658 PTH (intact) (ORDER ONLY) 06/29/2014 Results Test Result Range Complete blood count (CBC) with automated white blood cell (WBC) differential - 03/09/17 11:25 Blood leukocytes automated count (number/volume) 5.7 10*3/uL 4.3-11.0 Blood erythrocytes automated count (number/volume) 3.10 10*6/uL 4.35-5.85 Venous blood hemoglobin measurement (mass/volume) 9.6 g/dL 13.3-17.7 Blood hematocrit (volume fraction) 29 % 40-54 Automated erythrocyte mean corpuscular volume 94 [foz_us] 80-99 Automated erythrocyte mean corpuscular hemoglobin (mass per erythrocyte) 31 pg 25-34 Automated erythrocyte mean corpuscular hemoglobin concentration measurement ( mass/volume) 33 g/dL 32-36 Automated erythrocyte distribution width ratio 14.3 % 10.0-14.5 Automated blood platelet count (count/volume) 150 10*3/uL 130-400 Automated blood platelet mean volume measurement 10.5 [foz_us] 7.4-10.4 Automated blood neutrophils/100 leukocytes 87 % 42-75 Automated blood lymphocytes/100 leukocytes 5 % 12-44 Blood monocytes/100 leukocytes 6 % 0-12 Automated blood eosinophils/100 leukocytes 1 % 0-10 Automated blood basophils/100 leukocytes 0 % 0-10 Blood neutrophils automated count (number/volume) 5.0 10*3 1.8-7.8 Blood lymphocytes automated count (number/volume) 0.3 10*3 1.0-4.0 Blood monocytes automated count (number/volume) 0.4 10*3 0.0-1.0 Automated eosinophil count 0.1 10*3/uL 0.0-0.3 Automated blood basophil count (count/volume) 0.0 10*3/uL 0.0-0.1 Comprehensive metabolic panel - 03/09/17 11:25 Serum or plasma sodium measurement (moles/volume) 136 mmol/L 135-145 Serum or plasma potassium measurement (moles/volume) 3.3 mmol/L 3.6-5.0 Serum or plasma chloride measurement (moles/volume) 94 mmol/L 98-107 Carbon dioxide 22 mmol/L 21-32 Serum or plasma anion gap determination (moles/volume) 20 mmol/L 5-14 Serum or plasma urea nitrogen measurement (mass/volume) 28 mg/dL 7-18 Serum or plasma creatinine measurement (mass/volume) 5.21 mg/dL 0.60-1.30 Serum or plasma urea nitrogen/creatinine mass ratio 5 NRG Serum or plasma creatinine measurement with calculation of estimated glomerular filtration rate 12 NRG Serum or plasma glucose measurement (mass/volume) 200 mg/dL 70-105 Serum or plasma calcium measurement (mass/volume) 8.2 mg/dL 8.5-10.1 Serum or plasma total bilirubin measurement (mass/volume) 0.8 mg/dL 0.1-1.0 Serum or plasma alkaline phosphatase measurement (enzymatic activity/volume) 78 U/L 40-136 Serum or plasma aspartate aminotransferase measurement (enzymatic activity/ volume) 24 U/L 5-34 Serum or plasma alanine aminotransferase measurement (enzymatic activity/volume ) 21 U/L 0-55 Serum or plasma protein measurement (mass/volume) 7.8 g/dL 6.4-8.2 Serum or plasma albumin measurement (mass/volume) 4.1 g/dL 3.2-4.5 Magnesium - 03/09/17 11:25 Magnesium 1.9 mg/dL 1.8-2.4 Serum or plasma creatine kinase MB measurement (enzymatic activity/volume) - 11:25 Serum or plasma creatine kinase MB measurement (enzymatic activity/volume) 18.2 ng/mL <6.6 Serum or plasma troponin i.cardiac measurement (mass/volume) - 03/09/17 11:25 Serum or plasma troponin i.cardiac measurement (mass/volume) < ng/ mL <0.30 Serum or plasma C reactive protein measurement (mass/volume) - 03/09/17 11:25 Serum or plasma C reactive protein measurement (mass/volume) 0.34 mg /dL 0.00-0.50 Blood manual differential performed detection - 03/09/17 11:25 Blood monocytes/100 leukocytes 2 % NRG Manual blood segmented neutrophils/100 leukocytes 93 % NRG Manual blood lymphocytes/100 leukocytes 4 % NRG Manual eosinophils/100 leukocytes in nose 1 % NRG Blood erythrocyte morphology finding identification NORMAL NRG Blood lactic acid measurement (moles/volume) - 03/09/17 11:28 Blood lactic acid measurement (moles/volume) 5.86 mmol/L 0.50-2.00 Bacterial blood culture - 03/09/17 11:28 QUANTITY OF GROWTH . NRG Bacterial blood culture SEE COMMEN NRG Complete urinalysis with reflex to culture - 03/09/17 11:39 Urine color determination YELLOW NRG Urine clarity determination CLEAR NRG Urine pH measurement by test strip 8 5-9 Specific gravity of urine by test strip 1.015 1.016- 1.022 Urine protein assay by test strip, semi-quantitative 4+ NEGATIVE Urine glucose detection by automated test strip 2+ NEGATIVE Erythrocytes detection in urine sediment by light microscopy 4+ NEGATIVE Urine ketones detection by automated test strip NEGATIVE NEGATIVE Urine nitrite detection by test strip NEGATIVE NEGATIVE Urine total bilirubin detection by test strip NEGATIVE NEGATIVE Urine urobilinogen measurement by automated test strip (mass/volume) NORMAL NORMAL Urine leukocyte esterase detection by dipstick NEGATIVE NEGATIVE Automated urine sediment erythrocyte count by microscopy (number/high power field) [HPF] NRG Automated urine sediment leukocyte count by microscopy (number/high power field ) [HPF] NRG Bacteria detection in urine sediment by light microscopy TRACE NRG Squamous epithelial cells detection in urine sediment by light microscopy 0-2 NRG Crystals detection in urine sediment by light microscopy NONE NRG Casts detection in urine sediment by light microscopy NONE NRG Mucus detection in urine sediment by light microscopy SMALL NRG Complete urinalysis with reflex to culture YES NRG Amorphous sediment detection in urine sediment by light microscopy FEW RAJENDRA URATES NRG Other elements identification in urine sediment by light microscopy FEW SPERM NRG Sputum Gram stain - 03/09/17 11:39 GRAM STAIN SPUTUM AND MIXED BACTERIAL EVELIA NRG Bacterial sputum culture - 03/09/17 11:39 FREE TEXT EXTERNAL BETA LACTAMASE NEGATIVE NRG QUANTITY OF GROWTH Moderate Growth NRG FREE TEXT ENTRY 2 PLUS NORMAL EVELIA NRG Bacterial sputum culture [id number] NRG Bacterial urine culture - 03/09/17 11:39 Bacterial urine culture NG NRG Bacterial susceptibility panel - 03/09/17 11:39 Gentamicin susceptibility test by minimum inhibitory concentration < = NRG Trimethoprim/sulfamethoxazole susceptibility test by minimum inhibitoryconcentration <= NRG Tobramycin susceptibility test by minimum inhibitory concentration < = NRG Cefazolin susceptibility test by minimum inhibitory concentration > = NRG Piperacillin/tazobactam susceptibility test by minimum inhibitory concentration 8 NRG Ciprofloxacin susceptibility test by minimum inhibitory concentration <= NRG Meropenem susceptibility test by minimum inhibitory concentration < = NRG Aztreonam susceptibility test by minimum inhibitory concentration < = NRG Bacterial blood culture - 03/09/17 11:47 Bacterial blood culture NG NRG Encounters ACCT No. Visit Date/Time Discharge Status Pt. Type Provider Facility Loc./Unit Complaint [id number] 06/25/2014 09:03:00 06/25/2014 23:59:59 CLS Outpatient NAY WEBER DO [id number] 04/29/2014 17:00:00 04/29/2014 23:59:59 CLS Outpatient PATRICK TSE PA-C [id number] 04/20/2014 10:24:00 04/20/2014 23:59:59 CLS Outpatient PATRICK TSE PA-C [id number] 03/09/2014 14:29:00 03/09/2014 23:59:59 CLS Outpatient NAY WEBER DO [id number] 01/25/2014 12:44:00 01/25/2014 23:59:59 CLS Outpatient NAY WEBER DO [id number] 01/14/2014 07:05:00 01/14/2014 23:59:59 CLS Outpatient [id number] 12/28/2013 12:27:00 12/28/2013 23:59:59 CLS Outpatient NAY WEBER DO [id number] 12/28/2013 10:17:00 12/28/2013 23:59:59 CLS Outpatient NAY WEBER DO [id number] 12/04/2013 15:39:00 12/04/2013 23:59:59 CLS Outpatient KEREN SETHMAURY Erwin [id number] 07/16/2013 13:01:00 07/16/2013 23:59:59 CLS Outpatient NABIL ACKERMAN MD [id number] 04/09/2013 11:01:00 04/09/2013 23:59:59 CLS Outpatient NAY WEBER DO [id number] 02/16/2013 15:38:00 02/16/2013 23:59:59 CLS Outpatient NABIL ACKERMAN MD [id number] 07/10/2012 09:51:00 07/10/2012 23:59:59 CLS Outpatient RED ROWAN PHD [id number] 07/04/2012 09:39:00 07/04/2012 23:59:59 CLS Outpatient [id number] 06/30/2012 08:50:00 06/30/2012 23:59:59 CLS Outpatient [id number] 05/16/2012 12:36:00 05/16/2012 23:59:59 CLS Outpatient RED ROWAN PHD [id number] 05/13/2012 14:27:00 05/13/2012 23:59:59 CLS Outpatient [id number] 01/17/2012 09:23:00 01/17/2012 23:59:59 CLS Outpatient NAY WEBER DO [id number] 03/09/2017 11:20:00 03/09/2017 14:08:00 DIS Outpatient SIMI DODGE MD [facility] ER SEIZURE ACTIVITY [id number] 06/09/2015 12:07:00 06/09/2015 13:39:00 DIS Emergency JONATHAN MOORE APRN [facility] ER FALL/LEFT ELBOW INJURY [id number] 03/23/2015 08:37:00 03/23/2015 23:59:59 CLS Outpatient SWATHI FRANCO MD, V [facility] RAD CKD 4,HTN,HYPERKALEMIA, HYPERPARATHYROIDISM [id number] 03/15/2015 10:55:00 03/15/2015 23:59:59 CLS Preadmit SWATHI FRANCO MD, V [facility] LABNPT [id number] 02/27/2015 01:44:00 02/27/2015 05:17:00 DIS Emergency JESSICA DIAZ DO [facility] ER DIFFICULTY BREATHING HEARD A"POP" IN CHEST AREA [id number] 10/20/2014 12:47:00 10/20/2014 23:59:59 CLS Outpatient CANDI JONES, KIZZY Fernandez (DDU) [facility] RAD DDU [id number] 05/12/2014 10:34:00 05/12/2014 23:59:59 CLS Outpatient JOSE RAUL JONES, ADELIA Bermudez [facility] RAD CKD 4 [id number] 01/14/2014 19:25:00 01/14/2014 22:25:00 DIS Emergency DONNA SANTIAGO [facility] ER BACK PAIN [id number] 12/04/2013 17:51:00 12/05/2013 11:59:00 DIS Inpatient WEBER NAY K [facility] ICU CHEST PAIN, HTN [id number] 07/13/2013 20:47:00 07/14/2013 01:40:00 DIS Emergency CARL JONES, PATRICK Melchor [facility] ER R EAR ACHE, UNABLE TO SWALLOW [id number] 02/14/2013 14:52:00 02/14/2013 18:58:00 DIS Emergency JESSICA DIAZ DO [facility] ER NOSE BLEEDING NON STOP [id number] 03/26/2017 16:23:00 ACT Inpatient STACEY SIEGEL MD [facility] IRF DEBILITY [id number] 10/20/2014 12:46:00 Document Registration [id number] 03/14/2011 14:12:00 Document Registration
[2017-03-26] MEDS: ATORVASTATIN 10 MG (LIPITOR) TABLET PO SCH (19:52)
[2017-03-26] MEDS: NYSTATIN ORAL SUSP 5 ML UDC PO SCH (19:52)
[2017-03-26] MEDS: doxAzosin 4 MG (CARDURA) TAB PO SCH (19:53)
[2017-03-26] MEDS: LEVETIRACETAM 1,000 MG (KEPPRA) TABLET PO SCH (19:53)
[2017-03-26] MEDS: meTOprolol SUCCINATE 100 MG (TOPROL XL) TAB PO SCH (19:54)
[2017-03-26] MEDS: MELATONIN 3 MG TABLET PO SCH (19:54)
[2017-03-26] MEDS: SENNA W/DOCUSATE (SENOKOT S) TABLET PO SCH (19:59)
[2017-03-26 20:00] VITALS: BP 176/82
[2017-03-26] MEDS ORDERED: NIMODIPINE 30 MG PO SCH (20:00)
[2017-03-26] MEDS ORDERED: QUEtiapine 25 MG (SEROquel) TAB IMMEDIATE RELEASE PO SCH (21:00)
[2017-03-26 22:00] VITALS: BP 159/75
--- NOTE | 2017-03-26 22:24 | HISTORY AND PHYSICAL ---
DATE OF SERVICE: CHIEF COMPLAINT: Difficulty walking. HISTORY OF PRESENT ILLNESS: The patient is a 51-year-old male with a past medical history significant for hypertension, renal failure, dialysis and diabetes who presented to [facility] from outside hospital with concern for a right ruptured MCA aneurysm. The patient was admitted to neuro intensive care unit, seen by neurosurgery and underwent craniotomy with repair. The patient was started on therapy, felt to be appropriate for inpatient rehabilitation. He lives in [place], [place], is disabled, but had been independent prior to this, he lives with his sister, currently requires assistance for his ADLs and mobility skills. [facility] is listed as his primary care physicians. His sutures are to be removed on 03/29/2017. He is to wear a helmet until he can have cranioplasty upon completion of rehabilitation on an outpatient basis. PAST MEDICAL HISTORY: Hypertension, hyperphosphatemia, end-stage renal disease on dialysis three times a week. PAST SURGICAL HISTORY: As per above. ALLERGIES: No known medication allergies. FAMILY HISTORY: Blood clots, hypertension, diabetes. SOCIAL HISTORY: No current tobacco or alcohol. He receives dialysis on Saturday, and Saturdays and has an AV fistula in left forearm. REVIEW OF SYSTEMS: Ten point review of systems significant for difficulties with walking, weakness. MEDICATIONS: Losartan 100 mg p.o. daily, Norvasc 10 mg p.o. daily, heparin subq 5000 units q.8h., Keppra 1500 mg p.o. b.i.d., melatonin 3 mg p.o. at bedtime, Seroquel 50 mg p.o. at bedtime, Senokot-S 1 tablet p.o. b.i.d., Toprol-XL 100 mg p.o. b.i.d., Lipitor 10 mg p.o. at bedtime, Cardura 8 mg p.o. at bedtime, nimodipine 60 mg p.o. q.4 hours, Nystatin 5 mL p.o. q. 6 hours, Albuterol nebulizer treatments 4 hours p.r.n. shortness of breath. Tylenol 650 mg p.o. q.4 hours p.r.n. mild pain. PhosLo 667 mg 2 tablets p.o. with meals and one with snack, ferric citrate 210 mg p.o. b.i.d. PHYSICAL EXAMINATION: GENERAL: Significant for a male appearing his stated age. Alert and oriented, no acute distress. VITAL SIGNS: He is afebrile, pulse 75, respirations 20, blood pressure 176/86, O2 sat 96% on room air. HEENT: Helmet was removed. He has a craniotomy site on the right frontal parietal region with incision intact. No drainage noted. Sutures are in place. Vision, speech, hearing grossly intact. No overt lesion is noted. NECK: Supple without mass. CARDIOVASCULAR: Regular rate and rhythm. RESPIRATORY: Chest is clear. ABDOMEN: Soft, nontender. Bowel sounds present. EXTREMITIES: AV fistula in left forearm. No lower leg edema, no calf tenderness. MUSCULOSKELETAL: He has functional passive range of motion in all 4 extremities. NEUROLOGIC: He has 4+/5 strength BUES Hip flex 3-/5 Knee flex and exr 5/5 Dorsiflex 5/5 . Sensation is grossly intact to touch. Cognition appears grossly intact but is somewhat slowed. He has impaired standing balance. He is mod assist of two for transfers. Sitting balance is fair.He is setup for eating and grooming.He is min assist for Upper body dressing and mod assist for lower body dressing ASSESSMENT: 1. Ambulatory dysfunction secondary to ruptured cerebral aneurysm status post craniotomy and repair. 2. End-stage renal disease for more than two years on home hemodialysis three times a week. 3. Subarachnoid bleed secondary to #1. 4. Essential hypertension, controlled. 5. Hyperphosphotemia. 6. 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 7. Dysphagia secondary to #1. 8. Seizure prophylaxis on Keppra PLAN: The patient will have a comprehensive program with inpatient rehabilitation with goal of maximizing level of functional independence prior to discharge home with his sister. The patient will have PT, OT 90 minutes per day each discipline 5 days a week for 2 weeks for gait, strengthening, conditioning, balance, ADLs, any patient family caregiver training necessary, any adaptive equipment training necessary. Speech therapy to do cognitive speech and swallow assessment and treat as indicated three to five times a week for 30 to 45 minutes per session for 2 weeks. The patient is on a pureed diet with honey thickened liquids. Rehabilitation nursing to assist with bowel, bladder, skin, wound care, medication administration. Pain management and clinical social work therapist to assist with discharge planning, community reentry. Continue current medications. Follow up with neurosurgery upon discharge from this facility. Consult [facility] for medical management as needed. ESTIMATED LENGTH OF STAY: 21 days. PROGNOSIS: Fair. Prognosis appears good for goals due to entry home with his sister, modified independent to supervision for ADLs and mobility skills. Will advance diet as per speech therapy recommendations once they have had a chance to assess the patient. CODE STATUS: Full code. Job ID: [id number] DocumentID: [id number] Dictated Date: 03/26/2017 20:46:49 [employer] Date: 03/26/2017 22:24:07 Dictated By: STACEY SIEGEL MD [facility]
[2017-03-27] MEDS: ACETAMINOPHEN 325 MG TABLET/CAPLET (TYLENOL) PO PRN ×4 (01:30→21:02)
[2017-03-27] MEDS: NYSTATIN ORAL SUSP 5 ML UDC PO SCH ×4 (02:27→21:02)
[2017-03-27 06:00] VITALS: BP 169/72
[2017-03-27 07:15] LABS: BASOPHILS % (AUTO) 1 % (0-10); EOSINOPHILS # (AUTO) 0.2 10^3/uL (0.0-0.3); EOSINOPHILS % (AUTO) 3 % (0-10); LYMPHOCYTES # (AUTO) 0.4 X 10^3 (1.0-4.0); LYMPHOCYTES % (AUTO) 7 % (12-44); MEAN CORPUSCULAR HEMOGLOBIN 31 PG (25-34); MEAN CORPUSCULAR HGB CONC 32 G/DL (32-36); MEAN CORPUSCULAR VOLUME 95 FL (80-99); MEAN PLATELET VOLUME 9.7 FL (7.4-10.4); MONOCYTES # (AUTO) 0.5 X 10^3 (0.0-1.0); MONOCYTES % (AUTO) 9 % (0-12); NEUTROPHILS # (AUTO) 4.4 X 10^3 (1.8-7.8); NEUTROPHILS % (AUTO) 81 % (42-75); PLATELET COUNT 210 10^3/uL (130-400); RED BLOOD COUNT 2.97 10^6/uL (4.35-5.85); RED CELL DISTRIBUTION WIDTH 13.6 % (10.0-14.5); WHITE BLOOD COUNT 5.4 10^3/uL (4.3-11.0)
[2017-03-27 07:41] LABS: EOSINOPHILS % (MANUAL) 4 %; LYMPHOCYTES % (MANUAL) 8 %; NEUTROPHILS % (MANUAL) 80 %; ROULEAUX SLIGHT
--- NOTE | 2017-03-27 08:07 | Consultation ---
History of Present Illness History of Present Illness Patient Consulted On(robbie/time) 03/27/17 08:02 Time Seen by Provider: 08:02 History of Present Illness patient states he had a stroke and aneurysm Was at [facility] and had surgery due to this This was done on March 09. Patient states he has a scar on the abdomen Surgeries knee Patient has a history of hypertension, renal failure, dialysis, diabetes Right ruptured MCA aneurysm and underwent craniotomy ith skull in the abdomen on the right side Allergies and Home Medications Allergies Coded Allergies: NKANo Known Allergies (Verified Allergy, Unknown, 06/13/05) Home Medications Amlodipine Besylate 5 Mg Tab, 10 MG PO DAILY, (Reported) Benzonatate 100 Mg Capsule, 1-2 TAB PO TID, #30 Prescribed by: JESSICA DIAZ on 02/27/15448 Cephalexin 500 Mg Capsule, 500 MG PO TID, #15 Prescribed by: JONATHAN MOORE on 06/09/15 1321 D-Methorphan Hb/Prometh HCl 118 Ml Syrup, 5-10 ML PO Q4H, #120 Prescribed by: JESSICA DIAZ on 02/27/15 044 Doxazosin Mesylate 4 Mg Tab, 4 MG PO HS, (Reported) Doxycycline Monohydrate 100 Mg Capsule, 100 MG PO BID, #20 Prescribed by: JESSICA DIAZ on 02/27/15448 Insulin Aspart 100 Unit/1 Ml Susp, 12 UNIT SQ PC, (Reported) Insulin Glargine,Hum.rec.anlog 100 Unit/1 Ml Vial, 60 UNIT SQ BID, (Reported) Losartan Potassium 50 Mg Tablet, 50 MG PO DAILY, (Reported) Metoprolol Succinate 200 Mg Tab.er.24h, 200 MG PO DAILY, (Reported) Rosuvastatin Calcium 5 Mg Tablet, 20 MG PO DAILY, (Reported) Tramadol HCl 50 Mg Tablet, 50 MG PO Q4H, #20 Prescribed by: JESSICA DIAZ on 02/27/15 044 Past Poudczf-Ijfatx-Kbygyn Hx Patient Social History Alcohol Use: Occasionally Uses Recreational Drug Use: No Smoking Status: Former Smoker Type Used: Cigarettes Former Smoker, Quit: Mar 08, 2017 Recent Foreign Travel: No Contact w/Someone Who Travel: No Recent Infectious Disease Expo: No Recent Hopitalizations: Yes Immunizations Up To Date Tetanus Booster (TDap): Unknown Date of Pneumonia Vaccine: Jan 06, 2017 Date of Influenza Vaccine: Jan 06, 2017 Seasonal Allergies Seasonal Allergies: No Surgeries History of Surgeries: Yes (CRANIOTOMY) Surgeries: Arteriovenous Shunt, Dialysis, Orthopedic Respiratory History of Respiratory Disorde: No Cardiovascular History of Cardiac Disorders: Yes Cardiac Disorders: High Cholesterol, Hypertension Neurological History of Neurological Disord: No Reproductive System Hx Reproductive Disorders: No Sexually Transmitted Disease: No HIV/AIDS: No Genitourinary Genitourinary Disorders: Renal Failure, Dialysis Gastrointestinal History of Gastrointestinal Di: No Musculoskeletal History of Musculoskeletal Dis: Yes (89 BACK INJURY) Musculoskeletal Disorders: Back Injury Endocrine History of Endocrine Disorders: Yes Endocrine Disorders: Diabetes, Non-Insulin dep HEENT History of HEENT Disorders: Yes (BLURRED VISION.) Loss of Vision: Denies Hearing Impairment: Denies Cancer History of Cancer: No Psychosocial History of Psychiatric Problem: No Integumentary History of Skin or Integumenta: No Blood Transfusions History of Blood Disorders: No Adverse Reaction to a Blood Tr: No Family Medical History Family Medial History: Abdominal aortic aneurysm 19 MOTHER Blood clots 19 MOTHER Diabetes mellitus 19 MOTHER FH: colon cancer 19 MOTHER FH: lung cancer 19 MOTHER Hypertension 19 MOTHER Review of Systems-General Constitutional: no symptoms reported, other (right sided weakness) EENTM: no symptoms reported Respiratory: no symptoms reported Cardiovascular: no symptoms reported Gastrointestinal: no symptoms reported Genitourinary: other (renal failure and doesn't urinate much) Physical Exam-General Problems Physical Exam Vital Signs Vital Sign - Last 12Hours 03/26/17 18:15 Temp 98.3 Pulse 74 Resp 20 B/P (MAP) 176/42 (86) Pulse Ox 92 O2 Delivery Room Air Capillary Refill : General Appearance: WD/WN Eyes: Bilateral Eye Normal Inspection HEENT: normal ENT inspection, other ('s surgery on head craniotomy) Neck: non-tender, normal inspection Respiratory: chest non-tender, no respiratory distress, no accessory muscle use Cardiovascular: regular rate, rhythm, no murmur Gastrointestinal: non tender, soft Assessment/Plan Assessment/Plan Admission Diagnosis/Plan debility. CVA. Right fracture MCA aneurysm Hypertension. Renal failure. Patient on dialysis. Diabetes Clinical Quality Measures DVT/VTE Risk/Contraindication: Risk Factor Score Per Nursin RFS Level Per Nursing on Admit: 2=Moderate IAIN AHUJA DO Mar 27, 2017 08:07
[2017-03-27 08:53] VITALS: BP 182/90
[2017-03-27] MEDS: LOSARTAN 100 MG (COZAAR) TABLET PO SCH (08:55)
[2017-03-27] MEDS: LEVETIRACETAM 1,000 MG (KEPPRA) TABLET PO SCH ×2 (08:55→21:00)
[2017-03-27] MEDS: meTOprolol SUCCINATE 100 MG (TOPROL XL) TAB PO SCH ×3 (08:56→20:09)
[2017-03-27] MEDS: amLODIPine 10 MG (NORVASC) TAB PO SCH (08:56)
[2017-03-27] MEDS: SENNA W/DOCUSATE (SENOKOT S) TABLET PO SCH ×2 (08:56→21:02)
[2017-03-27 09:50] VITALS: BP 164/79
--- NOTE | 2017-03-27 10:00 | Physical Therapy Progress Note ---
Therapy Progress Note Pt arrived on the unit late in the day on 03/26/17. He had received dialysis earlier in the day and then had a 2-[address] [facility] to our facility. PT/ OT/ST franklin to be completed 03/27/17. RUI WHITMORE PT Mar 27, 2017 10:00
[2017-03-27] MEDS ORDERED: ALBU18HF2 INH (10:01)
[2017-03-27] MEDS ORDERED: AMLO10TA2 PO (10:01)
[2017-03-27] MEDS ORDERED: ATOR10TA66 PO (10:01)
[2017-03-27] MEDS ORDERED: LOSA1TAB23 PO (10:01)
[2017-03-27] MEDS ORDERED: DOXA8TAB73 PO (10:01)
[2017-03-27] MEDS ORDERED: HYDR-3816 PO (10:23)
[2017-03-27] MEDS ORDERED: BACL10TA PO (10:23)
[2017-03-27] MEDS ORDERED: FERR210T PO (10:23)
[2017-03-27] MEDS ORDERED: FURO40TA4 PO (10:23)
--- NOTE | 2017-03-27 10:30 | Occupational Therapy Eval ---
OT Evaluation-General/PLF Medical Diagnosis Admission Date Mar 26, 2017 at 16:23 Medical Diagnosis: R MCA aneurysm with craniotomy Onset Date: Mar 09, 2017 Therapy Diagnosis Therapy Diagnosis: decr self care, decr safety awareness, decr funct mob, weakness, decr act t Height/Weight Height (Feet): 5 Height (Inches): 9.00 Weight (Pounds): 240 Weight (Ounces): 1.0 Precautions Precautions/Isolations: Fall Prevention, Standard Precautions Safety Interventions: Bed Exit Alarm, Reorient-PRN Referral Physician: Hong Referral Reason: Evaluation/Treatment Medical History Pertinent Medical History: DM, HTN, Renal Insufficiency Additional Medical History Renal failure and on dialysis. AV fistula L forearm. back injury 1991. Meth use. Blurred vision Current History Pt was undergoing dialysis when he became non-responsive. Transferred to [facility] where he underwent craniotomy 03-09-17. Skull piece is in his abdomen (R side). Pt is supposed to wear helmet when up out of bed. Pt had dialysis yesterday morning in [place] and then had [address] [facility]. He reported that he typically is very fatigued after dialysis and sleeps when he gets home. Reviewed History: Yes Social History Home: Single Level Current Living Status: Other Family (sister and 9 year old daughter) Entry Into Home: Stairs With Railing Steps Into Home: 3 ADL-Prior Level of Function ADL PLOF Comments Pt reported that he was able to manage his basic self care needs prior to surgery. His sister helped with laundry, cooking, cleaning. 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 He drove himself to dialysis prior to surgery. DME/Equipment: Tub/Shower OT Current Status Subjective Pt seen in room, initially agreeable to OT. Pt reported headache rated 8/10 but did not describe pain. His blood pressure was elevated and he received meds this morning. Appearance Pleasant and verbal but resistive to participating in OT. Multiple types of cues used to identify best method of involvement. Pt is very verbal. Impulsive Mental Status/Objective Patient Orientation: Person () Impulsive Attachments: Other-See Comments (AV fistula L forearm, helmet) Current Glasses/Contacts: Yes (reading) Hearing Aids: No Dentures/Partials: No (has very few teeth) Hand Dominance: Right Upper Extremity ROM Grossly WFL bilat. Upper Extremity Strength Grossly 4+/5 bilat with questionable slight weakness L UE. Pt had some difficulty following instructions and was impulsive. ADL-Treatment ADL-Current Pt has to wear helmet when up out of bed. He was able to put it on but promptly took it off, saying it was too tight. He required multiple types of verbal, physical and visual cues but participation was limited. Treatment done in bed. He washed his face twice and washed R arm but refused to wash other body parts. He was able to take shirt off but attempted to put clean shirt on backwards. When corrected, he threw shirt across the room. He took socks off in bed, using his feet but refused to put clean ones on or change lower body clothing. Refused to brush his teeth (has only a few teeth). Refused to sit EOB or transfer from bed. Pt rolled on to L side and would not roll on to his back until end of tx. Pt was able to feed himself modified diet, per nursing notes and transfer to toilet with mod assist. He said he is using urinal when he needs to. Nursing reported he crawled back into bed from recliner, over the bed rails. Bed alarm left on at end of tx, all needs met. Functional [place] Measure 0=Not Assessed/NA 4=Minimal Assistance 1=Total Assistance 5=Supervision or Setup 2=Maximal Assistance 6=Modified [place] 3=Moderate Assistance 7=Complete IndependenceIRFPAI Quality Coding Scale 6 Independent with activity with or without an assistive device 5 Patient requires set up or clean up by helper. Patient completes activity by themselves 4 Supervision or touching assist (CGA). [place] provide cues , steadying assist 3 The helper provides less than half the effort to complete the activity 2 The helper provides more than half the effort to complete the activity 1 Dependent. The helper does all the effort to complete an activity 7 Patient refused to complete or attempt activity 9 The patient did not perform the activity before the current illness or injury 88 Not attempted due to Medical conditions or safety concerns Eating (FIM): 6 (per nursing) Eating (QC): 6 (per nursing) Grooming (FIM): 5 (Washed face and hands. Refused to brush teeth. Hair has been shaved off. Refused to shave) Oral Hygiene (QC): 7 (refused) Bathing (FIM): 1 (Refused to wash any parts except R arm) Bathing Location: R Arm Shower/Bathe Self (QC): 7 Upper Body Dressing (FIM): 3 (Doffed t shirt but attempted to put clean shirt on backwards. Then threw it across the room) Upper Body Dressing (QC): 7 Lower Body Dressing (FIM): 1 (Took slipper socks off but refused to put clean one on. Refuse to put clean pants on) Lower Body Dressing (QC): 7 On/Off Footwear (QC): 7 Toileting (FIM): 5 (Per nursing report. Pt said that he uses a urinal) Toileting Hygiene (QC): 4 (supervision) Toilet/Commode Transfer (FIM): 3 (per nursing. to BSC) Toilet Transfer (QC): 3 (per nursing) Shower Transfer (FIM): 0 (Unsafe to get pt up to shower) Education OT Patient Education: Modified ADL techniques, Purpose of tx/functional activities, Rehab process, Safety issues Teaching Recipient: Patient Teaching Methods: Demonstration, Discussion Response to Teaching: Verbalize Understanding (refused return demo), Reinforcement Needed OT Short Term Goals Short Term Goals Time Frame: Apr 10, 2017 Bathing(FIM): 4 Upper Body Dressing(FIM): 4 Lower Body Dressing(FIM): 4 Toilet/Commode Transfer(FIM): 5 Additional Short Term Goals: 2-Verbalize Understanding, 3-ImproveStrength/Maciej 1=Demonstrate adherence to instructed precautions during ADL tasks. 2=Patient will verbalize/demonstrate understanding of assistive devices/ modifications for ADL. 3=Patient will improve strength/tolerance for activity to enable patient to perform ADL's. OT Shelter Goals [employer] History Professor Goals Time Frame: Apr 24, 2017 Eating (FIM): 6 Eating (QC): 6 Groomin Oral Hygiene (QC): 5 Bathing(FIM): 5 Shower/Bathe Self (QC): 5 Upper Body Dressing(FIM): 5 Upper Body Dressing (QC): 5 Lower Body Dressing(FIM): 5 Lower Body Dressing (QC): 5 On/Off Footwear (QC): 5 Toileting(FIM): 5 Toileting Hygiene (QC): 5 Toilet/Commode Transfer(FIM): 5 Toilet/Commode Transfer (QC): 5 Shower Transfer(FIM): 5 Additional Goals: 2-Verbalize Understanding, 3-ImproveStrength/Maciej 1=Demonstrate adherence to instructed precautions during ADL tasks. 2=Patient will verbalize/demonstrate understanding of assistive devices/ modifications for ADL. 3=Patient will improve strength/tolerance for activity to enable patient to perform ADL's. OT Education/Plan Problem List/Assessment Assessment: Decreased Activ Tolerance, Decreased Safety Aware, Decreased UE Strength, Dependent Transfers, Impaired Cognition, Impaired Self-Care Skills Pt would benefit from skilled OT to increase his independence in basic self care to allow him to safely return to his home and to decrease caregiver burden Discharge Recommendations Plan/Recommendations: Continue POC Barriers to Progress impulsivity, decreased access to therapy and participation due to dialysis, cognitive status Target Placement home Treatment Plan/Plan of Care Treatment,Training & Education: Yes Patient would benefit from OT for education, treatment and training to promote independence in ADL's, mobility, safety and/or upper extremity function for ADL' s. Plan of Care: ADL Retraining, Caregiver Training, Functional Mobility, Group Exercise/Act as Ind (education, exercise. act tolerance, socialization, funct activities, funct mobility), UE Funct Exercise/Act, UE Neuromus Re-Ed/Coord Treatment Duration: Apr 24, 2017 Frequency: Modified Program (IRF) (goal of 15 hours over 7 days (as able due to dialysis)) Estimated Hrs Per Day: 1.5 hours per day (1.25 to 1.5 ) Agreement: Yes Rehab Potential: Fair Time/GCodes Start Time: 09:00 Stop Time: 10:00 Total Time Billed (hr/min): 60 Billed Treatment Time visit, 15 minutes evaluation high intensity, 45 minutes ADL RACHEL ARREDONDO OT Mar 27, 2017 10:30
--- NOTE | 2017-03-27 10:53 | Physical Therapy Evaluation ---
PT Evaluation-General Medical Diagnosis Admission Date Mar 26, 2017 at 16:23 Medical Diagnosis: MCA aneurism and craniotomy Onset Date: Mar 09, 2017 Therapy Diagnosis Therapy Diagnosis: impaired mobility, strength, endurance Height/Weight Height (Feet): 5 Height (Inches): 9.00 Weight (Pounds): 240 Weight (Ounces): 1.0 Precautions Precautions/Isolations: Fall Prevention, Standard Precautions Referral Physician: Hong Reason for Referral: Evaluation/Treatment Medical History Additional Medical History PAST MEDICAL HISTORY: Hypertension, hyperphosphatemia, end-stage renal disease on dialysis three times a week. Reviewed History: Yes Social History Home: Single Level Current Living Status: Other Family Entry Into Home: Stairs With Railing PT Steps Into Home: 2 patient lives with his sister and her , patient states that between them , there will always be somebody home with him Prior/Core FIM Prior Level of Function Functional [place] Measure 0=Not Assessed/NA 4=Minimal Assistance 1=Total Assistance 5=Supervision or Setup 2=Maximal Assistance 6=Modified [place] 3=Moderate Assistance 7=Complete [place] Bed Mobility: 7 Transfers (B,C,W/C) (FIM): 7 Gait: 7 PT Evaluation-Current Subjective Patient in bed pre tx, he does not want to perform PT and needs max encouragement just to sit at the edge of the bed. Patient states he has severe pain in his head and abdomen where he had surgery. Patient only sits at the edge of the bed for a few moments before trying to lay down with his head at the foot of the bed. Pt/Family Goals "to go home today" Objective Patient Orientation: Confused Patient has a helmet his needs to wear when he is up due to his craniotomy. He also has had the flap placed in his abdomen. ROM/Strength ROM Lower Extremities WNL except his hip internal rotation is limited bilaterally Strenght Lower Extremities left lower extremity (hip flexion 3-/5, knee flexion 5/5, knee extension 5/5, dorsiflexion 5/5), right lower extremity (hip flexion 3-/5, knee flexion 5/5, knee extension 5/5, dorsiflexion 5/5) Integumentary/Posture Bowel Incontinence: No Neuromuscular (Tone, Coordination, Reflexes) no abnormal tone noted, no coordination issues noted but patient was not able to ambulate Sensory Hearing: Functional Sensation Right Lower Extremit: Intact Sensation Left Lower Extremity: Intact Sensation Lower Extremities Patient has intact light touch sensation bilateral lower extremities but he states that sometimes he does have numbness due to neuropathy. Transfers Functional [place] Measure 0=Not Assessed/NA 4=Minimal Assistance 1=Total Assistance 5=Supervision or Setup 2=Maximal Assistance 6=Modified [place] 3=Moderate Assistance 7=Complete IndependenceIRFPAI Quality Coding Scale 6 Independent with activity with or without an assistive device 5 Patient requires set up or clean up by helper. Patient completes activity by themselves 4 Supervision or touching assist (CGA). [place] provide cues , steadying assist 3 The helper provides less than half the effort to complete the activity 2 The helper provides more than half the effort to complete the activity 1 Dependent. The helper does all the effort to complete an activity 7 Patient refused to complete or attempt activity 9 The patient did not perform the activity before the current illness or injury 88 Not attempted due to Medical conditions or safety concerns Transfers (B, C, W/C) (FIM): 4 Scootin Rollin Roll Left to Right (QC): 4 Supine to/from Sit: 4 Sit to Lying (QC): 3 Lying to Sitting/Side of Bed(Q: 3 Patient performed bed mobility with SBA but needed min assist for supine <-> sit. He did not perform sit to stand because he was not able to wear his helmet. Gait Comments/Gait Description patient was not able to ambulate because he could not wear his helmet Wheelchair Training Type of Wheelchair: Manual A manual wheelchair was obtained for him to use and it was adjusted to him and brakes fixed. He was not able to get into the wheelchair because he could not put on his helmet and perform the transfer to it. Stairs Patient was not able to attempt stairs because he could not put on his helmet. Balance Sitting Static: Normal Sitting Dynamic: Fair Assessment/Needs Patient needs max encouragement to minimally participate, it may take many minutes to convince him to participate in something like sitting up that only take a few seconds to perform and then a few minutes again to convince him to do something else. Participation and motivation are profoundly poor. His helmet does not fit him, he has some swelling in the right side of his head and his helmet will just not go on his head, in fact his current helmet has been cut and modified in order to fit him, but the swelling is too much now. garbage worker and nurse have been notified of this issue and are trying to get him another bigger helmet. Rehab Potential: Poor PT Short Term Goals Short Term Goals Time Frame: Apr 10, 2017 Transfers (B,C,W/C) (FIM): 4 (CGA) Gait (FIM): 2 Gait Distance Comment: 50' Gait Level of Assist: 4 Gait Assistive Device: FWW PT Detention Goals Navigation Teacher Goals PT Navigation Teacher Goals Time Frame: Apr 24, 2017 Transfers (B,C,W/C) (FIM): 5 Sit to Lying (QC): 6 Lying-Sitting on Side/Bed(QC): 6 Sit to Stand (QC): 4 Rollin Roll Left to Right (QC): 6 Chair/Sgt-lb-Uqivl Xfer(QC): 4 Car Transfer (QC): 4 Gait (FIM): 4 Distance: 150' Walk 10 feet (QC): 4 Walk 10ft-Uneven Surface(QC): 4 Walk 50ft with 2 Turns (QC): 4 Walk 150 ft (QC): 4 Gait Level of Assist: 4 (CGA) Gait Assistive Device: FWW Wheelchair (FIM): 5 Distance: 200' Wheelchair Level of Assist: 5 Wheel 50 feet with 2 turns (QC: 4 Stairs (FIM): 2 # of Steps: 4 1 Step (curb) (QC): 4 4 Steps (QC): 4 Stairs Level Of Assist: 4 PT Plan Problem List Problem List: Activity Tolerance, Functional Strength, Safety, Balance, Gait, Transfer, Bed Mobility Treatment/Plan Treatment Plan: Continue Plan of Care Treatment Plan: Bed Mobility, Concurrent Therapy, Education, Functional Activity Maciej, Functional Strength, Group Therapy, Gait, Safety, Therapeutic Exercise, Transfers Treatment Duration: Apr 24, 2017 Frequency: At least 5 of 7 days/Wk (IRF) Estimated Hrs Per Day: 1.5 hours per day Patient and/or Family Agrees t: Yes Safety Risks/Education Patient Education: Transfer Techniques, Reviewed Precautions, Correct Positioning, Disease Process, Safety Issues Teaching Recipient: Patient Teaching Methods: Demonstration, Discussion Response to Teaching: Reinforcement Needed Discharge Recommendations Plan Patient will perform bed mobility and transfer training, balance and endurance training, functional strengthening, stair training, gait training, and education , to improve functional mobility and independence at home. Therapy D/C Recommendations: Home w/ Family Support, Snf (TCU/NH) Time/GCodes Time In: 1000 Time Out: 1100 Total Billed Treatment Time: 60 Total Billed Treatment 1 visit HUGO 45' FA 15' DHAVAL FINLEY PT Mar 27, 2017 10:53
[2017-03-27] MEDS ORDERED: CALCIUM ACETATE 667 MG PO PRN (11:15)
[2017-03-27] MEDS ORDERED: ARTIFICAL TEARS 0.4 ML UNIT DOSE (REFRESH PLUS) OU PRN (11:15)
--- NOTE | 2017-03-27 12:04 | PM&R Post Admission Assessment ---
Post Admission Physician Asses The preadmission screen agrees with the post admission assessment that the patient is a good candidate for inpatient rehabilitation. The patient will have a comprehensive program of inpatient rehabilitation with a goal of maximizing level of functional independence prior to discharge home with family and HHC. The patient will have PT/OT ninety minutes per day, each discipline, five days a week for gait, strengthening, conditioning, balance, ADLs, any patient/family/caregiver training as necessary. Speech therapy to do cognitive, speech and swallow assessment and treat as indicated 3 to 5 times a week for 2 weeks. Rehabilitation nursing to assist with bowel, bladder, skin, wound care, medication administration, pain management. Vice President Of [employer] to assist with discharge planning, community reentry. SCD's for DVT prophylaxis. He appears to be well motivated to participate in three hours of therapy a day. He should be able to tolerate three hours of therapy a day from a medical and surgical standpoint. He should benefit from the three hours of therapy a day. He has a reasonable discharge plan, reasonable discharge rehabilitation goals and a supportive family. He has various comorbidities that need to be closely monitored with medications and treatments adjusted on a daily basis as needed. These include: HTN ESRD DM Barriers to discharge for this patient who had been independent prior to this are for him to be modified independent to supervision for ADLs and mobility skills prior to discharge home with family and HHC, so as to lessen the burden of the caregivers. Risks for this patient include: 1. Fall 2. Fracture 3. DVT 4. Pulmonary embolism 5. Wound infection 6. Skin breakdown 7. Contractures 8. Poorly controlled pain 9. Urinary retention 10. UTI 11. Respiratory infection 12. Aspiration 13. Poorly controlled HTN 14. Poorly controlled DM Estimated Length of Stay: 21 days Prognosis: Rehab prognosis appears good for goal of discharge home with family and HHC modified independent to supervision for ADLs and mobility skills. STACEY SIEGEL MD Mar 27, 2017 12:04
[2017-03-27] MEDS: CALCIUM ACETATE 667 MG PO SCH ×2 (12:30→17:20)
--- NOTE | 2017-03-27 13:55 | ST Dysphagia Evaluation ---
Speech Evaluation-General Medical Diagnosis MCA Aneurism and Craniotomy Onset Date: Mar 09, 2017 Therapy Diagnosis Therapy Diagnosis: Mild Oropharyngeal Dysphagia Precautions Precautions: Aspiration Precautions/Isolations: Aspiration, Seizure, Fall Prevention, Standard Precautions Referral Referring Physician: Dr. Ivan Pitts Reason for Referral: Evaluation/Treatment Clinical Bedside Swallow Evaluation Medical History Pertinent Medical History: DM, HTN, Renal Insufficiency The patient was recently admitted to [facility] following a MCA aneurism and craniotomy at [facility]. Reviewed History: Yes Social History Current Living Status: Other Family Speech PLF/Current-Dysphagia Prior Level of Function The patient stated he can "eat anything and everything. I love to eat, I eat all the time at home." The patient denied swallowing difficulties with any consistency he currently consumes. Subjective The patient was seated upright in bed, with his breakfast tray present at bedside. The patient's tray consisted of pureed hash browns and nectar- thickened apple juice. The patient was agreeable to participation in the dysphagia evaluation asking, "are you going to get me off of this crap?" The patient required frequent and consistent redirection to task, and demonstrated impulsivity throughout the evaluation. Cognitive Status Patient Orientation: Person Oral Motor Skills Dentition: Natural (Poor and limited dentition was present.) Current Food Consistancy: Pureed, [place] Liquids Ability to Follow Directions: Fair (The patient's ability to follow directions appeared limited secondary to his high impulsivity.) Oral Expression Ability: Mild Impairment Voice Voice Phonatory-Based Quality: Normal Voice Pitch: Normal Voice Loudness: Normal Face Facial Symmetry: Asymmetrical (The patient displayed a left facial droop at rest.) Oral-Facial Assessment Oral-Facial Dentition: Normal Labial Seal Description: Droops Left Smile: Droops Left Puff Cheeks: Reduced Strength (Left) Lingual Protrusion: Normal Lingual ROM: Normal Lingual Strength: Normal Pharynx Velopharyngeal Move.: Normal Volitional Dry Swallow: Yes Dysphagia Evaluation Consistencies Presented: Regular, Thin Liquid, [place] Thick Liquid, Pureed Oral Phase: Oral Residue, Left Pocketing, Reduced Oral Transit The patient displayed incoordinated mastication of solid consistencies, left pocketing of masticated material, and reduced posterior oral transfer of all consistencies tested. Pharyngeal Phase: Swallows Too Rapidly The patient appears rushed throughout all oral trials, demonstrating rapid, multiple swallows throughout the evaluation. Funct. Velo/Pharyngeal Symptom: Clears Throat, Cough After Swallow The patient cleared his throat and demonstrated a delayed cough following large , consecutive straw drinks of thin liquid. Regardless of maximum cueing, the patient was unable to consume small, single sips of thin liquid. No signs/ symptoms of aspiration were demonstrated with large, consecutive cup drinks of nectar-thick liquid, puree, or solid consistencies tested. The patient demonstrates a rushed behavior with oral intake, not following verbal prompts by the clinician to reduce intake, increase/improve mastication, and slow his rate. Consistent verbal prompting is required throughout the evaluation for safety. Dietary Recommendations: Mechanical Soft Liquid Recommendations: [place] Consistancy Swallowing Precautions: Decreased Rate of Oral Intake, Liquids from Cup, No Straw, Pocketing (Left), Small Bites and Sips, Sitting 90 Degrees 30 Post Intake , Left Tongue Sweep Dysphagia Evaluation Summary The patient displays mild oropharyngeal dysphagia characterized by left oral pocketing, reduced mastication of solid consistencies, impulsive behaviors, and an overall poorly coordinated swallow response. Barriers to Learning Impulsivity Speech Short Term Goals Short Term Goals Short Term Goals 1. The patient will follow swallowing strategies with mild verbal cueing from the clinician with 70% accuracy. Time Frame-STG: One Week Speech Multi Disciplined Language Analyst Goals Fdc Goals 1. The patient will tolerate the least restrictive diet without signs/symptoms of aspiration or laryngeal penetration. Time Frame: Two Weeks Speech-Plan Treatment Plan Speech Therapy Treatment Plan: Continue Plan of Care Continue skilled speech pathology to target swallowing safety. Treatment Duration: Apr 10, 2017 Frequency: Modified Program (IRF) Estimated Hrs Per Day: .5 hour per day Rehab Potential: Poor Safety Risks/Education Teaching Recipient: Patient Teaching Methods: Discussion Response to Teaching: Reinforcement Needed Education Topics Provided: Results, Recommendations, Plan of Care, Signs/Symptoms of Aspiration, Swallowing Strategies Time Speech Therapy Time In: 08:15 Speech Therapy Time Out: 08:45 Total Billed Time: 30 Billed Treatment Time JANA DeanYVROSE IRBY Mar 27, 2017 13:55
--- NOTE | 2017-03-27 14:22 | Physical Therapy Daily Note ---
PT Daily Note-Current Subjective Pt laying Supine in bed upon arrival. Pt is reluctant to participate in PT. Pain Comment: Pt reports pain although doesn't rate. Mental Status Patient Orientation: Person, Confused, Place Attachments: Other-See Comments (Helmet) Transfers Functional [place] Measure 0=Not Assessed/NA 4=Minimal Assistance 1=Total Assistance 5=Supervision or Setup 2=Maximal Assistance 6=Modified [place] 3=Moderate Assistance 7=Complete IndependenceIRFPAI Quality Coding Scale 6 Independent with activity with or without an assistive device 5 Patient requires set up or clean up by helper. Patient completes activity by themselves 4 Supervision or touching assist (CGA). [place] provide cues , steadying assist 3 The helper provides less than half the effort to complete the activity 2 The helper provides more than half the effort to complete the activity 1 Dependent. The helper does all the effort to complete an activity 7 Patient refused to complete or attempt activity 9 The patient did not perform the activity before the current illness or injury 88 Not attempted due to Medical conditions or safety concerns Treatments Pt dons his own helmet and starts to attempt transferring then changes his mind and takes helmet back off. The rest of tx is spent waking pt up several times and trying to educate pt on benefit of PT and why it is beneficial to get pt to discharge. Assessment Current Status: Fair Progress Pt is reluctant to participate in PT. Pt is not motivated by going home. PT Short Term Goals Short Term Goals Time Frame: Apr 10, 2017 Transfers (B,C,W/C) (FIM): 4 (CGA) Gait (FIM): 2 Gait Distance Comment: 50' Gait Level of Assist: 4 Gait Assistive Device: FWW PT Alf Goals Alf Goals PT Alf Goals Time Frame: Apr 24, 2017 Transfers (B,C,W/C) (FIM): 5 Sit to Lying (QC): 6 Lying-Sitting on Side/Bed(QC): 6 Sit to Stand (QC): 4 Rollin Roll Left to Right (QC): 6 Chair/Dzy-ea-Ignib Xfer(QC): 4 Car Transfer (QC): 4 Gait (FIM): 4 Distance: 150' Walk 10 feet (QC): 4 Walk 10ft-Uneven Surface(QC): 4 Walk 50ft with 2 Turns (QC): 4 Walk 150 ft (QC): 4 Gait Level of Assist: 4 (CGA) Gait Assistive Device: FWW Wheelchair (FIM): 5 Distance: 200' Wheelchair Level of Assist: 5 Wheel 50 feet with 2 turns (QC: 4 Stairs (FIM): 2 # of Steps: 4 1 Step (curb) (QC): 4 4 Steps (QC): 4 Stairs Level Of Assist: 4 PT Plan Problem List Problem List: Activity Tolerance, Functional Strength, Safety, Balance, Gait, Transfer, Bed Mobility Treatment/Plan Treatment Plan: Continue Plan of Care Treatment Plan: Bed Mobility, Concurrent Therapy, Education, Functional Activity Maciej, Functional Strength, Group Therapy, Gait, Safety, Therapeutic Exercise, Transfers Treatment Duration: Apr 24, 2017 Frequency: At least 5 of 7 days/Wk (IRF) Estimated Hrs Per Day: 1.5 hours per day Patient and/or Family Agrees t: Yes Safety Risks/Education Patient Education: Transfer Techniques, Correct Positioning, Safety Issues Teaching Recipient: Patient Teaching Methods: Discussion Response to Teaching: Reinforcement Needed Time/GCodes Time In: 1330 Time Out: 1400 Total Billed Treatment Time: 30 Total Billed Treatment 1, FA x2 (30m) LEO CARDONA PTA Mar 27, 2017 14:22
--- NOTE | 2017-03-27 14:32 | Occupational Ther Daily Note ---
OT Current Status-Daily Note Subjective Pt seen in room, asleep but easily awakened. Agreeable to OT. Mental Status/Objective Functional [place] Measure 0=Not Assessed/NA 4=Minimal Assistance 1=Total Assistance 5=Supervision or Setup 2=Maximal Assistance 6=Modified [place] 3=Moderate Assistance 7=Complete [place] ADL-Treatment Pt requested help to sit up long sitting in bed but was also able to sit up without using bed rail or help. He agreed to take shirt off and put clean one on but had difficulty initiating the movements. He did remove t shirt and put clean one on but it took multiple steps with pauses in between and multiple skilled cues of varying types. All ADLs took longer than usual. Pt left up in bed, 4 rails up, telesitter in place. Functional [place] Measure 0=Not Assessed/NA 4=Minimal Assistance 1=Total Assistance 5=Supervision or Setup 2=Maximal Assistance 6=Modified [place] 3=Moderate Assistance 7=Complete IndependenceIRFPAI Quality Coding Scale 6 Independent with activity with or without an assistive device 5 Patient requires set up or clean up by helper. Patient completes activity by themselves 4 Supervision or touching assist (CGA). [place] provide cues , steadying assist 3 The helper provides less than half the effort to complete the activity 2 The helper provides more than half the effort to complete the activity 1 Dependent. The helper does all the effort to complete an activity 7 Patient refused to complete or attempt activity 9 The patient did not perform the activity before the current illness or injury 88 Not attempted due to Medical conditions or safety concerns Education OT Patient Education: Modified ADL techniques, Purpose of tx/functional activities Teaching Recipient: Patient Teaching Methods: Discussion Response to Teaching: Reinforcement Needed OT Short Term Goals Short Term Goals Time Frame: Apr 10, 2017 Bathing(FIM): 4 Upper Body Dressing(FIM): 4 Lower Body Dressing(FIM): 4 Transfers (B,C,W/C) (FIM): 4 (CGA) Toilet/Commode Transfer(FIM): 5 Additional Short Term Goals: 2-Verbalize Understanding, 3-ImproveStrength/Maciej 1=Demonstrate adherence to instructed precautions during ADL tasks. 2=Patient will verbalize/demonstrate understanding of assistive devices/ modifications for ADL. 3=Patient will improve strength/tolerance for activity to enable patient to perform ADL's. OT Novelties Sales Representative Goals Correction Goals Time Frame: Apr 24, 2017 Eating (FIM): 6 Eating (QC): 6 Groomin Oral Hygiene (QC): 5 Bathing(FIM): 5 Shower/Bathe Self (QC): 5 Upper Body Dressing(FIM): 5 Upper Body Dressing (QC): 5 Lower Body Dressing(FIM): 5 Lower Body Dressing (QC): 5 On/Off Footwear (QC): 5 Toileting(FIM): 5 Toileting Hygiene (QC): 5 Toilet/Commode Transfer(FIM): 5 Toilet/Commode Transfer (QC): 5 Shower Transfer(FIM): 5 Additional Goals: 2-Verbalize Understanding, 3-ImproveStrength/Maciej 1=Demonstrate adherence to instructed precautions during ADL tasks. 2=Patient will verbalize/demonstrate understanding of assistive devices/ modifications for ADL. 3=Patient will improve strength/tolerance for activity to enable patient to perform ADL's. OT Education/Plan Problem List/Assessment Pt would benefit from skilled OT to increase his independence in basic self care to allow him to safely return to his home and to decrease caregiver burden Discharge Recommendations Plan/Recommendations: Continue POC Treatment Plan/Plan of Care Patient would benefit from OT for education, treatment and training to promote independence in ADL's, mobility, safety and/or upper extremity function for ADL' s. Plan of Care: ADL Retraining, Caregiver Training, Functional Mobility, Group Exercise/Act as Ind (education, exercise. act tolerance, socialization, funct activities, funct mobility), UE Funct Exercise/Act, UE Neuromus Re-Ed/Coord Treatment Duration: Apr 24, 2017 Frequency: Modified Program (IRF) (goal of 15 hours over 7 days (as able due to dialysis)) Estimated Hrs Per Day: 1.5 hours per day (1.25 to 1.5 ) Agreement: Yes Rehab Potential: Poor Time/GCodes Start Time: 14:05 Stop Time: 14:20 Total Time Billed (hr/min): 15 Billed Treatment Time visit, 15 minutes ADL RACHEL ARREDONDO OT Mar 27, 2017 14:32
[2017-03-27] MEDS: NIMODIPINE 30 MG PO SCH ×2 (17:20→20:59)
--- NOTE | 2017-03-27 18:13 | PM & R (SOAP) Progress Note ---
Subjective Time Seen by Provider: 10:15 Subjective/Events-last exam Patient was seen in his room this AM Patient mod assist for transfers Patient c/ o some difficulty with helmet being too tight RT face somewhat swollen and fluid can vary with dialysis Labs and DR Sotelo note appreciated Objective Exam Last Set of Vital Signs Vital Signs Date Time Temp Pulse Resp B/P (MAP) Pulse Ox O2 Delivery O2 Flow Rate FiO2 03/27/17 09:50 164/79 (107) 03/27/17 08:53 99.4 88 20 98 Room Air Capillary Refill : I&O Intake and Output 03/27/17 00:00 Daily Weight Change No General: Alert, No Acute Distress, Other (responds differently at times to staff question wheter motivation at least part of problem) HEENT: Other (crani site intact with some fluid bulging on rt) Neck: Supple, No JVD Lungs: Clear to Auscultation Heart: Regular Rate Abdomen: Normal Bowel Sounds, No Tenderness Extremities: No Edema Neuro: Other (cognition slowed Patient on Dysphagia diet generalized weakness) Results Lab Laboratory Tests 03/26/17 20:30: Glucometer 126H 03/27/17 06:42: Glucometer 86 03/27/17 07:06: White Blood Count 5.4, Red Blood Count 2.97L, Hemoglobin 9.1L, Hematocrit 28L, Mean Corpuscular Volume 95, Mean Corpuscular Hemoglobin 31, Mean Corpuscular Hemoglobin Concent 32, Red Cell Distribution Width 13.6, Platelet Count 210, Mean Platelet Volume 9.7, Neutrophils (%) (Auto) 81H, Lymphocytes (%) (Auto) 7L , Monocytes (%) (Auto) 9, Eosinophils (%) (Auto) 3, Basophils (%) (Auto) 1, Neutrophils # (Auto) 4.4, Lymphocytes # (Auto) 0.4L, Monocytes # (Auto) 0.5, Eosinophils # (Auto) 0.2, Basophils # (Auto) 0.0, Neutrophils % (Manual) 80, Lymphocytes % (Manual) 8, Monocytes % (Manual) 8, Eosinophils % (Manual) 4, Rouleau SLIGHT 03/27/17 12:09: Glucometer 99 03/27/17 17:16: Glucometer 119H Assessment/Plan Assessment SAH due to Ruptured aneurysm s/p repair [facility] s/p crani wearing helmet ESRD on Dialysis TIW DM Normocytic anemia Plan ContinuePT/OT/ST SW attempting to get Helmet for patient Labs as per dialysis Team F/U with DR Davonte cardoza Appreciate Current labs Team Conference held earlier today -See report for full functional update and POC and ELOS Parient on 20/10 therapy schedule due to Dialysis STACEY SIEGEL MD Mar 27, 2017 18:13
--- NOTE | 2017-03-27 18:24 | Individualized Plan of Care ---
Individualized Plan of Care Rehab Nursing IPOC Order Admission Date Mar 26, 2017 at 16:23 Current Orders Orders Heparin Injection (Heparin Injection) (03/26/17 22:00) Levetiracetam Tablet (Keppra Tablet) (03/26/17 21:00) Melatonin Tablet (Melatonin Tablet) (03/26/17 21:00) Nimodipine Capsule (Nimotop Capsule) (03/26/17 20:00) Nystatin Oral Suspension (Mycostatin O (03/26/17 20:00) Quetiapine Immediate Release (Seroquel I (03/26/17 21:00) Senna S Tablet (Senokot S Tablet) (03/26/17 21:00) Losartan Tablet (Cozaar Tablet) (03/27/17 09:00) Metoprolol Succinate (Xl) Tab (Toprol Xl (03/26/17 21:00) Amlodipine Tablet (Norvasc Tablet) (03/27/17 09:00) Atorvastatin Tablet (Lipitor Tablet) (03/26/17 21:00) Doxazosin Tablet (Cardura Tablet) (03/26/17 21:00) Pharmacy Communication (Pharmacy Communi (03/26/17 17:45) Admission (Physician Order) (03/26/17 17:45) Code/Resuscitation (03/26/17 17:45) Initiate Admission Nursing Pro .admission (03/26/17 17:45) Isolation Central Supply Req (03/26/17 17:45) Admission Arrival Bed Request (03/26/17 18:23) Dys1 Pureed (03/26/17 Dinner) Acetaminophen Tablet/Caplet (Tylenol T (03/26/17 17:45) Albuterol Pre-Mix Nebs (Rt) (Proventil (03/26/17 19:30) Request For Dysphagia Services (03/26/17 19:51) Ambulate TID (03/26/17 19:51) Sequential Compression Device , (03/26/17 19:51) Dvt/Vte Risk - Notifiy Physici (03/26/17 19:51) Accucheck Achs ACHS (03/26/17 19:51) Staple/Suture Removal ONCE (03/29/17 09:00) Admission-Acute Rehab Unit (03/26/17 20:50) Vital Signs: Routine 08,16,00 (03/26/17 20:50) Special Makeup Fx Artist Instructor-Inpt Rehab (03/26/17 20:50) Rehab Nursing Orders-Ipoc (03/26/17 20:50) Physical Therapy Rehab Orders (03/26/17 20:50) Occupational Therapy Rehab Ord (03/26/17 20:50) Speech Therapy Rehab Orders (03/26/17 20:50) Turn And Reposition Q2HR (03/26/17 20:50) Precautions (Aru) (03/26/17 20:50) Weekly Weight (Lbs) WEEK (03/26/17 20:50) Cbc With Automated Diff (03/27/17 07:00) Nursing Communication (Patient BID (03/26/17 20:00) Nursing Communication (Patient DAILY (03/27/17 08:00) Nursing Communication (Patient DAILY (03/27/17 08:00) Nursing Communication (Patient DAILY (03/27/17 08:00) Manual Differential (03/27/17 07:06) Carboxymethylcell Ophth Soln (Refresh Pl (03/27/17 11:15) Calcium Acetate (Non-Formulary (Phoslo 6 (03/27/17 12:00) Calcium Acetate (Non-Formulary (Phoslo 6 (03/27/17 11:15) Quetiapine Immediate Release (Seroquel I (03/27/17 21:00) Levetiracetam Tablet (Keppra Tablet) (03/27/17 21:00) Dys2 Mechanically Altered (03/27/17 Lunch) Patient Visit (03/27/17 ) Dysphagia Evaluation Std (03/27/17 ) Nimodipine Capsule (Nimotop Capsule) (03/27/17 16:00) Patient Visit (03/27/17 ) Pt Eval Moderate Complexity (03/27/17 ) Functional Activities, Ea 15 (03/27/17 ) Patient Visit (03/27/17 ) Functional Activities, Ea 15 (03/27/17 ) Consult Physician (03/27/17 14:13) Rehab Nursing Orders: Diseage Management, Edu in Press Rel Techn, Hydration Management, Nutrition Management, Pain Management Other Nursing Orders: Monitor for urinary retention and constipation Intensity of Therapy to be met Patient to be seen: 15 hrs over 7 cons. days PT IPOC Problem List: Activity Tolerance, Functional Strength, Safety, Balance, Gait, Transfer, Bed Mobility Treatment Plan: Continue Plan of Care Bed Mobility, Concurrent Therapy, Education, Functional Activity Maciej, Functional Strength, Group Therapy, Gait, Safety, Therapeutic Exercise, Transfers Treatment Duration: Apr 24, 2017 Frequency: At least 5 of 7 days/Wk (IRF) Estimated Hrs Per Day: 1.5 hours per day OT IPOC Problems: Decreased Activ Tolerance, Decreased Safety Aware, Decreased UE Strength, Dependent Transfers, Impaired Cognition, Impaired Self-Care Skills OT Treatment, Training and Edu: Yes OT Problems Pt would benefit from skilled OT to increase his independence in basic self care to allow him to safely return to his home and to decrease caregiver burden Plan of Care: ADL Retraining, Caregiver Training, Functional Mobility, Group Exercise/Act as Ind (education, exercise. act tolerance, socialization, funct activities, funct mobility), UE Funct Exercise/Act, UE Neuromus Re-Ed/Coord Treatment Duration: Apr 24, 2017 Frequency: Modified Program (IRF) (goal of 15 hours over 7 days (as able due to dialysis)) Estimated Hrs Per Day: 1.5 hours per day (1.25 to 1.5 ) ST IPOC Speech Therapy Treatment Plan: Continue Plan of Care Treatment Duration: Apr 10, 2017 Frequency: Modified Program (IRF) Estimated Hrs Per Day: .5 hour per day Special Makeup Fx Artist Instructor/Case Mgmt Special Makeup Fx Artist Instructor/Case Managemen: Discharge Planning, Patient/Family Counseling Physician IPOC Medical Issues being managed closely and that require the 24 hour availability of a physician:DM ESRD dysphagia Medical Issues: Bowel/Bladder Function, DVT Prophylaxis, Falls Precautions, Fluid/Electrolyte/Nutrition Balance, Infection Protection, Pain Management, Swallowing Precautions, Wound Care, Other (List) (as per above) Brief Synthesis of Preadmission Screen, Post-Admission Evaluation, and Therapy Evaluations: 51 yo male who had been Independent but disabled due to ESRD on Dialysis three times a week who had SAH due to Ruptured cerebral aneursym who is referred to IRU after crani and repair at [facility] DM ESRD Medical Prognosis: good Anticipated Length of Stay: 04-24-16 Rehab Goals Modified Independent to supervision for adl and mobility skills Anticipated discharge destinat: Home with family and [facility] STACEY SIEGEL MD Mar 27, 2017 18:24
[2017-03-27 18:27] VITALS: BP 197/88
[2017-03-27 18:46] VITALS: BP 193/82
[2017-03-27 19:47] VITALS: BP 179/74
[2017-03-27] MEDS: doxAzosin 4 MG (CARDURA) TAB PO SCH (21:00)
[2017-03-27] MEDS: ATORVASTATIN 10 MG (LIPITOR) TABLET PO SCH (21:01)
[2017-03-27] MEDS: MELATONIN 3 MG TABLET PO SCH (21:02)
[2017-03-27] MEDS: QUEtiapine 25 MG (SEROquel) TAB IMMEDIATE RELEASE PO SCH (21:02)
[2017-03-28] MEDS: NIMODIPINE 30 MG PO SCH ×7 (00:29→23:26)
[2017-03-28] MEDS: NYSTATIN ORAL SUSP 5 ML UDC PO SCH ×5 (02:06→20:30)
[2017-03-28] MEDS: ACETAMINOPHEN 325 MG TABLET/CAPLET (TYLENOL) PO PRN ×3 (02:07→20:31)
[2017-03-28 05:47] VITALS: BP 163/75
[2017-03-28] MEDS: CALCIUM ACETATE 667 MG PO SCH ×3 (06:45→16:07)
[2017-03-28] MEDS: LOSARTAN 100 MG (COZAAR) TABLET PO SCH (07:42)
[2017-03-28] MEDS: QUEtiapine 25 MG (SEROquel) TAB IMMEDIATE RELEASE PO SCH ×2 (07:42→20:31)
[2017-03-28] MEDS: meTOprolol SUCCINATE 100 MG (TOPROL XL) TAB PO SCH ×2 (07:42→20:30)
[2017-03-28] MEDS: amLODIPine 10 MG (NORVASC) TAB PO SCH (07:42)
[2017-03-28] MEDS: SENNA W/DOCUSATE (SENOKOT S) TABLET PO SCH ×2 (07:43→20:29)
[2017-03-28 07:45] VITALS: BP 173/77
--- NOTE | 2017-03-28 07:53 | Occupational Ther Daily Note ---
OT Current Status-Daily Note Subjective Pt lying in bed, nrsg attempting to get pt to sit up and eat breakfast. PETER and nrsg encouraged pt to sit up to eat. Pt did sit up to eat. Mental Status/Objective Functional [place] Measure 0=Not Assessed/NA 4=Minimal Assistance 1=Total Assistance 5=Supervision or Setup 2=Maximal Assistance 6=Modified [place] 3=Moderate Assistance 7=Complete [place] ADL-Treatment Pt ate one bowl of food and drank half a cup of coffee then laid back down. Pt declined completing shower. PETER brought in cleansing cloths for pt to wash up before dressing. Pt took one cloth to wash face then refused to use anywhere else. PETER offered choices of clothing to pt, pt responded by saying why do you want me to take off my clothing. PETER explained that he had stains on the clothing he was wearing and that he was going to dialysis around 0800. Pt asked why are you looking pants, PETER responded that he had stains on his pant leg. PETER encouraged pt to doff stained shirt and don a clean shirt for 30 min before pt finally complied and doffed/donned shirt within 2 min. PETER then attempted to encourage pt to change out of his stained pants into cleans ones. Pt stated that he was warm and did not want to change. PETER continued to encourage pt then nrsg came in and offered to order pt food that he could take with him to dialysis and that he needed to change his clothing. Pt continued to refuse. PETER gave pants to pt and pt placed pants under his head for a pillow then pulled a blanket over him and proceeded to close eyes and attempt to fall asleep. PETER continued to encourage pt to change clothing and pt stated 'get off my back'. PETER encouraged pt to brush teeth, pt stated that he only had 3 teeth to brush, pt refused. Nrsg in room at that time and was attempting to take vital signs. After 20 min of encouraging pt to change pants which he did not do, it was 0800. Pt lying in bed with nrsg present in room, call light/phone in reach. All needs met in room. Functional [place] Measure 0=Not Assessed/NA 4=Minimal Assistance 1=Total Assistance 5=Supervision or Setup 2=Maximal Assistance 6=Modified [place] 3=Moderate Assistance 7=Complete IndependenceIRFPAI Quality Coding Scale 6 Independent with activity with or without an assistive device 5 Patient requires set up or clean up by helper. Patient completes activity by themselves 4 Supervision or touching assist (CGA). [place] provide cues , steadying assist 3 The helper provides less than half the effort to complete the activity 2 The helper provides more than half the effort to complete the activity 1 Dependent. The helper does all the effort to complete an activity 7 Patient refused to complete or attempt activity 9 The patient did not perform the activity before the current illness or injury 88 Not attempted due to Medical conditions or safety concerns OT Short Term Goals Short Term Goals Time Frame: Apr 10, 2017 Bathing(FIM): 4 Upper Body Dressing(FIM): 4 Lower Body Dressing(FIM): 4 Transfers (B,C,W/C) (FIM): 4 (CGA) Toilet/Commode Transfer(FIM): 5 Additional Short Term Goals: 2-Verbalize Understanding, 3-ImproveStrength/Maciej 1=Demonstrate adherence to instructed precautions during ADL tasks. 2=Patient will verbalize/demonstrate understanding of assistive devices/ modifications for ADL. 3=Patient will improve strength/tolerance for activity to enable patient to perform ADL's. OT [facility] Goals [facility] Goals Time Frame: Apr 24, 2017 Eating (FIM): 6 Eating (QC): 6 Groomin Oral Hygiene (QC): 5 Bathing(FIM): 5 Shower/Bathe Self (QC): 5 Upper Body Dressing(FIM): 5 Upper Body Dressing (QC): 5 Lower Body Dressing(FIM): 5 Lower Body Dressing (QC): 5 On/Off Footwear (QC): 5 Toileting(FIM): 5 Toileting Hygiene (QC): 5 Toilet/Commode Transfer(FIM): 5 Toilet/Commode Transfer (QC): 5 Shower Transfer(FIM): 5 Additional Goals: 2-Verbalize Understanding, 3-ImproveStrength/Maciej 1=Demonstrate adherence to instructed precautions during ADL tasks. 2=Patient will verbalize/demonstrate understanding of assistive devices/ modifications for ADL. 3=Patient will improve strength/tolerance for activity to enable patient to perform ADL's. OT Education/Plan Problem List/Assessment Pt would benefit from skilled OT to increase his independence in basic self care to allow him to safely return to his home and to decrease caregiver burden Discharge Recommendations Plan/Recommendations: Continue POC Treatment Plan/Plan of Care Patient would benefit from OT for education, treatment and training to promote independence in ADL's, mobility, safety and/or upper extremity function for ADL' s. Plan of Care: ADL Retraining, Caregiver Training, Functional Mobility, Group Exercise/Act as Ind (education, exercise. act tolerance, socialization, funct activities, funct mobility), UE Funct Exercise/Act, UE Neuromus Re-Ed/Coord Treatment Duration: Apr 24, 2017 Frequency: Modified Program (IRF) (goal of 15 hours over 7 days (as able due to dialysis)) Estimated Hrs Per Day: 1.5 hours per day (1.25 to 1.5 ) Agreement: Yes Rehab Potential: Poor Time/GCodes Start Time: 07:00 Stop Time: 08:00 Total Time Billed (hr/min): 60 Billed Treatment Time 1 visit-FA 4 (60 min) RUI CORRIGAN Mar 28, 2017 07:53
--- NOTE | 2017-03-28 08:55 | PM & R (SOAP) Progress Note ---
Subjective Time Seen by Provider: 07:45 Subjective/Events-last exam Patient was seen in his room this AM.Patient mod assist for transfers.Needs motivation to participate in therapies Objective Exam Last Set of Vital Signs Vital Signs Date Time Temp Pulse Resp B/P (MAP) Pulse Ox O2 Delivery O2 Flow Rate FiO2 03/28/17 07:45 76 18 173/77 (109) 96 Room Air 03/28/17 05:47 98.3 Capillary Refill : I&O Intake and Output 03/28/17 00:00 Intake Total 1420 ml Balance 1420 ml Intake Oral 1420 ml # Voids 1 # Bowel Movements 4 General: Alert, No Acute Distress, Other (responds differently at times to staff question wheter motivation at least part of problem) HEENT: Other (crani site intact with some fluid bulging on rt) Neck: Supple, No JVD Lungs: Clear to Auscultation Heart: Regular Rate Abdomen: Normal Bowel Sounds, No Tenderness Extremities: No Edema Neuro: Other (cognition slowed Patient on Dysphagia diet generalized weakness) Results Lab Laboratory Tests 03/26/17 20:30: Glucometer 126H 03/27/17 06:42: Glucometer 86 03/27/17 07:06: White Blood Count 5.4, Red Blood Count 2.97L, Hemoglobin 9.1L, Hematocrit 28L, Mean Corpuscular Volume 95, Mean Corpuscular Hemoglobin 31, Mean Corpuscular Hemoglobin Concent 32, Red Cell Distribution Width 13.6, Platelet Count 210, Mean Platelet Volume 9.7, Neutrophils (%) (Auto) 81H, Lymphocytes (%) (Auto) 7L , Monocytes (%) (Auto) 9, Eosinophils (%) (Auto) 3, Basophils (%) (Auto) 1, Neutrophils # (Auto) 4.4, Lymphocytes # (Auto) 0.4L, Monocytes # (Auto) 0.5, Eosinophils # (Auto) 0.2, Basophils # (Auto) 0.0, Neutrophils % (Manual) 80, Lymphocytes % (Manual) 8, Monocytes % (Manual) 8, Eosinophils % (Manual) 4, Rouleau SLIGHT 03/27/17 12:09: Glucometer 99 03/27/17 17:16: Glucometer 119H 03/27/17 20:20: Glucometer 154H 03/28/17 06:40: Glucometer 104 Assessment/Plan Assessment SAH due to Ruptured aneurysm s/p repair [facility] s/p crani wearing helmet ESRD on Dialysis TIW DM Normocytic anemia Plan ContinuePT/OT/ST SW attempting to get Helmet for patient Labs as per dialysis Team F/U with DR Davonte cardoza Appreciate Current labs Team Conference held yesterday-See report for full functional update and POC and ELOS Parient on 20/10 therapy schedule due to Dialysis Encourage patient to participate in therapies STACEY SIEGEL MD Mar 28, 2017 08:55
--- NOTE | 2017-03-28 10:05 | Physical Therapy Daily Note ---
PT Daily Note-Current Subjective "Why do I have to get up?" "But I dont want to get up." "Have you ever been to dialysis?" "I can get up, but I don't want to." Transfers Functional [place] Measure 0=Not Assessed/NA 4=Minimal Assistance 1=Total Assistance 5=Supervision or Setup 2=Maximal Assistance 6=Modified [place] 3=Moderate Assistance 7=Complete IndependenceIRFPAI Quality Coding Scale 6 Independent with activity with or without an assistive device 5 Patient requires set up or clean up by helper. Patient completes activity by themselves 4 Supervision or touching assist (CGA). [place] provide cues , steadying assist 3 The helper provides less than half the effort to complete the activity 2 The helper provides more than half the effort to complete the activity 1 Dependent. The helper does all the effort to complete an activity 7 Patient refused to complete or attempt activity 9 The patient did not perform the activity before the current illness or injury 88 Not attempted due to Medical conditions or safety concerns Transfers (B, C, W/C) (FIM): 4 Supine to/from Sit: 4 Sit to Stand (QC): 4 Chair/Kkf-mg-Qinbc Xfer(QC): 4 Pt requires CGA with sup to sit EOB with heavy cues primarily for patient participation. The assist was light and was primarily to encourage him to move forward with the transfer. Sit to stand with CGA and close CGA with transfer bed to chair using the FWW. Pt stood originally and then sat back down noting he didn't want to get in the chair. Heavy cues for the transfer to keep him on task. Wheelchair Training Does the Pt Use a Wheelchair?: Yes Wheelchair (FIM): 5 Wheelchair Distance: 3=150 ft Type of Wheelchair: Manual Pt able to propel the wheelchair out of his room and into the [place] with turns and small spaces navigated. Pt required skilled cues for safety as well as brake management. Treatments Pt completed getting out of bed, transferring to the wheelchair and wheelchair mobility in 40 minutes. Assessment Pt tends to resist therapy intervention and attempts to distract the task at hand by repeating he does not want to do something or asking a multitude of questions. Pt prolongs the treatment with conversation that at times is nonsensical with his conversation. Treatment takes extra time to complete as much of the time is spent talking with him about why he needs to participate. Generally, he transfers with very little assist from this therapist. PT Short Term Goals Short Term Goals Time Frame: Apr 10, 2017 Transfers (B,C,W/C) (FIM): 4 (CGA) Gait (FIM): 2 Gait Distance Comment: 50' Gait Level of Assist: 4 Gait Assistive Device: FWW PT Director Of Hotel Operations Goals Director Of Hotel Operations Goals PT Alf Goals Time Frame: Apr 24, 2017 Transfers (B,C,W/C) (FIM): 5 Sit to Lying (QC): 6 Lying-Sitting on Side/Bed(QC): 6 Sit to Stand (QC): 4 Rollin Roll Left to Right (QC): 6 Chair/Dkk-xc-Mwivm Xfer(QC): 4 Car Transfer (QC): 4 Gait (FIM): 4 Distance: 150' Walk 10 feet (QC): 4 Walk 10ft-Uneven Surface(QC): 4 Walk 50ft with 2 Turns (QC): 4 Walk 150 ft (QC): 4 Gait Level of Assist: 4 (CGA) Gait Assistive Device: FWW Wheelchair (FIM): 5 Distance: 200' Wheelchair Level of Assist: 5 Wheel 50 feet with 2 turns (QC: 4 Stairs (FIM): 2 # of Steps: 4 1 Step (curb) (QC): 4 4 Steps (QC): 4 Stairs Level Of Assist: 4 PT Plan Problem List Problem List: Activity Tolerance, Functional Strength, Safety, Balance, Gait, Transfer, Bed Mobility Treatment/Plan Treatment Plan: Continue Plan of Care Treatment Plan: Bed Mobility, Concurrent Therapy, Education, Functional Activity Maciej, Functional Strength, Group Therapy, Gait, Safety, Therapeutic Exercise, Transfers Treatment Duration: Apr 24, 2017 Frequency: At least 5 of 7 days/Wk (IRF) Estimated Hrs Per Day: 1.5 hours per day Patient and/or Family Agrees t: Yes Safety Risks/Education Patient Education: Safety Issues Teaching Recipient: Patient Teaching Methods: Discussion Response to Teaching: Reinforcement Needed Reinforcement regarding importance effective participation with therapy. Time/GCodes Time In: 800 Time Out: 840 Total Billed Treatment Time: 40 Total Billed Treatment visit FA 30 WC 10 RUI WHITMORE PT Mar 28, 2017 10:05
--- NOTE | 2017-03-28 14:58 | Speech Therapy Progress Note ---
Therapy Progress Note Speech pathology attempted treatment with the patient multiple times on this date (once in the morning and three times in the afternoon). The patient remains at dialysis at this time. Speech pathology will continue attempts as patient is available and appropriate. YVROSE CORDOVA Mar 28, 2017 14:58
--- NOTE | 2017-03-28 16:09 | Occupational Ther Daily Note ---
OT Current Status-Daily Note Subjective Pt just got back from dialysis. Pt agreed to therapy. No c/o pain at this time. Mental Status/Objective Patient Orientation: Person, Place, Time, Situation Functional [place] Measure 0=Not Assessed/NA 4=Minimal Assistance 1=Total Assistance 5=Supervision or Setup 2=Maximal Assistance 6=Modified [place] 3=Moderate Assistance 7=Complete [place] ADL-Treatment Functional [place] Measure 0=Not Assessed/NA 4=Minimal Assistance 1=Total Assistance 5=Supervision or Setup 2=Maximal Assistance 6=Modified [place] 3=Moderate Assistance 7=Complete IndependenceIRFPAI Quality Coding Scale 6 Independent with activity with or without an assistive device 5 Patient requires set up or clean up by helper. Patient completes activity by themselves 4 Supervision or touching assist (CGA). [place] provide cues , steadying assist 3 The helper provides less than half the effort to complete the activity 2 The helper provides more than half the effort to complete the activity 1 Dependent. The helper does all the effort to complete an activity 7 Patient refused to complete or attempt activity 9 The patient did not perform the activity before the current illness or injury 88 Not attempted due to Medical conditions or safety concerns Other Treatment Co-treat with PT for skilled care and decreased activity tolerance. PT worked on ambulation, standing balance and transfers. OT worked on functional activities for feeding and dressing. Pt required multiple verbal cues and encouragement to complete therapy. Pt procrastinated throughout entire treatment. To start treatment it took pt 15 min to initiate ambulation. Pt then ambulated to room, see PT notes. Pt then sat on bed and refused to complete any dressing, to change from dirty (sweats stained with blood and food ) pants (15 min). Pt was able to open pudding containers and feed self with regular utensils. Pt laid down with head at foot of bed throughout attempting to get pants changed. Attempted to get pt to allow more cushion between end of bed and his head to decrease pressure or him hitting head. Pt would not move to allow pillow to be place. PT had to sit pt up to adjust cushion and scoot down in bed. PT took over care of pt. All needs met in room. OT Short Term Goals Short Term Goals Time Frame: Apr 10, 2017 Bathing(FIM): 4 Upper Body Dressing(FIM): 4 Lower Body Dressing(FIM): 4 Transfers (B,C,W/C) (FIM): 4 (CGA) Toilet/Commode Transfer(FIM): 5 Additional Short Term Goals: 2-Verbalize Understanding, 3-ImproveStrength/Maciej 1=Demonstrate adherence to instructed precautions during ADL tasks. 2=Patient will verbalize/demonstrate understanding of assistive devices/ modifications for ADL. 3=Patient will improve strength/tolerance for activity to enable patient to perform ADL's. OT Robotics Software Engineer Goals Shelter Goals Time Frame: Apr 24, 2017 Eating (FIM): 6 Eating (QC): 6 Groomin Oral Hygiene (QC): 5 Bathing(FIM): 5 Shower/Bathe Self (QC): 5 Upper Body Dressing(FIM): 5 Upper Body Dressing (QC): 5 Lower Body Dressing(FIM): 5 Lower Body Dressing (QC): 5 On/Off Footwear (QC): 5 Toileting(FIM): 5 Toileting Hygiene (QC): 5 Toilet/Commode Transfer(FIM): 5 Toilet/Commode Transfer (QC): 5 Shower Transfer(FIM): 5 Additional Goals: 2-Verbalize Understanding, 3-ImproveStrength/Maciej 1=Demonstrate adherence to instructed precautions during ADL tasks. 2=Patient will verbalize/demonstrate understanding of assistive devices/ modifications for ADL. 3=Patient will improve strength/tolerance for activity to enable patient to perform ADL's. OT Education/Plan Problem List/Assessment Pt would benefit from skilled OT to increase his independence in basic self care to allow him to safely return to his home and to decrease caregiver burden Discharge Recommendations Plan/Recommendations: Continue POC Treatment Plan/Plan of Care Patient would benefit from OT for education, treatment and training to promote independence in ADL's, mobility, safety and/or upper extremity function for ADL' s. Plan of Care: ADL Retraining, Caregiver Training, Functional Mobility, Group Exercise/Act as Ind (education, exercise. act tolerance, socialization, funct activities, funct mobility), UE Funct Exercise/Act, UE Neuromus Re-Ed/Coord Treatment Duration: Apr 24, 2017 Frequency: Modified Program (IRF) (goal of 15 hours over 7 days (as able due to dialysis)) Estimated Hrs Per Day: 1.5 hours per day (1.25 to 1.5 ) Agreement: Yes Rehab Potential: Poor Time/GCodes Start Time: 15:15 Stop Time: 15:50 Total Time Billed (hr/min): 35 Billed Treatment Time 1 visit-FA 2 (35 min) RUI CORRIGAN Mar 28, 2017 16:09
--- NOTE | 2017-03-28 16:09 | Physical Therapy Daily Note ---
PT Daily Note-Current Subjective Pt visits throughout treatment with distraction techniques to keep from participating in therapy. Transfers Functional [place] Measure 0=Not Assessed/NA 4=Minimal Assistance 1=Total Assistance 5=Supervision or Setup 2=Maximal Assistance 6=Modified [place] 3=Moderate Assistance 7=Complete IndependenceIRFPAI Quality Coding Scale 6 Independent with activity with or without an assistive device 5 Patient requires set up or clean up by helper. Patient completes activity by themselves 4 Supervision or touching assist (CGA). [place] provide cues , steadying assist 3 The helper provides less than half the effort to complete the activity 2 The helper provides more than half the effort to complete the activity 1 Dependent. The helper does all the effort to complete an activity 7 Patient refused to complete or attempt activity 9 The patient did not perform the activity before the current illness or injury 88 Not attempted due to Medical conditions or safety concerns Treatments Co treat with OT 1515 to 1550. Remainder of time was 1 on 1. Completed co treatment due to patient's level of awareness/participation and decreased safety awareness and felt skill of 2 clinicians may be beneficial in completion of tasks safely and with optimal verbal and tactile cues as he completed tasks. During the co treatment time, pt completed gait x 150 ft with FWW with close CGA followed by wheelchair with uneven and inconsistent step length noted as well as narrow VICKY with near tandem gait at times with decreased hip girdle control. Pt unsteady with gait and creates cause for concern due to decreased safety awareness and balance. Pt also performed sit to stand transfers x 4 and performed sit to from supine x 1. He transferred bed to chair with FWW with close CGA. Pt required cues from OT for UE placement and use as PT addressed functional balance and safety techniques. Once seated, discussed safety with patient and importance of participation with skilled intervention in an intentional manner. Pt wore helmet when upright but when trying to apply it, he would put it on and take it off multiple times. Pt in chair with legs elevated and chair alarm activated post treatment. Assessment Progress is limited due to nature of patient requiring constant encouragement to participate. Limited skilled mobility performed in the time spent with patient as he resists transfers or gait and uses distraction to not perform actual actiivty. He is pleasant and friendly but does not stay on task. PT Short Term Goals Short Term Goals Time Frame: Apr 10, 2017 Transfers (B,C,W/C) (FIM): 4 (CGA) Gait (FIM): 2 Gait Distance Comment: 50' Gait Level of Assist: 4 Gait Assistive Device: FWW PT Group Home Goals Group Home Goals PT Housekeeping Room Inspector Goals Time Frame: Apr 24, 2017 Transfers (B,C,W/C) (FIM): 5 Sit to Lying (QC): 6 Lying-Sitting on Side/Bed(QC): 6 Sit to Stand (QC): 4 Rollin Roll Left to Right (QC): 6 Chair/Lyy-ha-Dmwos Xfer(QC): 4 Car Transfer (QC): 4 Gait (FIM): 4 Distance: 150' Walk 10 feet (QC): 4 Walk 10ft-Uneven Surface(QC): 4 Walk 50ft with 2 Turns (QC): 4 Walk 150 ft (QC): 4 Gait Level of Assist: 4 (CGA) Gait Assistive Device: FWW Wheelchair (FIM): 5 Distance: 200' Wheelchair Level of Assist: 5 Wheel 50 feet with 2 turns (QC: 4 Stairs (FIM): 2 # of Steps: 4 1 Step (curb) (QC): 4 4 Steps (QC): 4 Stairs Level Of Assist: 4 PT Plan Problem List Problem List: Activity Tolerance, Functional Strength, Safety, Balance, Gait, Transfer, Bed Mobility Treatment/Plan Treatment Plan: Continue Plan of Care Treatment Plan: Bed Mobility, Concurrent Therapy, Education, Functional Activity Maciej, Functional Strength, Group Therapy, Gait, Safety, Therapeutic Exercise, Transfers Treatment Duration: Apr 24, 2017 Frequency: At least 5 of 7 days/Wk (IRF) Estimated Hrs Per Day: 1.5 hours per day Patient and/or Family Agrees t: Yes Safety Risks/Education Patient Education: Transfer Techniques, Safety Issues Teaching Recipient: Patient Teaching Methods: Demonstration, Discussion Response to Teaching: Reinforcement Needed Time/GCodes Time In: 1515 Time Out: 1609 Total Billed Treatment Time: 54 Total Billed Treatment visit FA 54 minutes RUI WHITMORE PT Mar 28, 2017 16:09
[2017-03-28 18:30] VITALS: BP 160/75
[2017-03-28] MEDS: LEVETIRACETAM 1,000 MG (KEPPRA) TABLET PO SCH (20:28)
[2017-03-28] MEDS: MELATONIN 3 MG TABLET PO SCH (20:30)
[2017-03-28] MEDS: doxAzosin 4 MG (CARDURA) TAB PO SCH (20:30)
[2017-03-28] MEDS: ATORVASTATIN 10 MG (LIPITOR) TABLET PO SCH (20:30)
[2017-03-29] MEDS: ACETAMINOPHEN 325 MG TABLET/CAPLET (TYLENOL) PO PRN ×3 (02:07→20:07)
[2017-03-29] MEDS: NYSTATIN ORAL SUSP 5 ML UDC PO SCH ×4 (02:08→20:07)
[2017-03-29] MEDS: NIMODIPINE 30 MG PO SCH ×5 (04:31→20:06)
[2017-03-29 05:52] VITALS: BP 156/74
[2017-03-29] MEDS: CALCIUM ACETATE 667 MG PO SCH ×3 (06:30→16:39)
[2017-03-29] MEDS: QUEtiapine 25 MG (SEROquel) TAB IMMEDIATE RELEASE PO SCH ×2 (07:52→20:06)
[2017-03-29] MEDS: meTOprolol SUCCINATE 100 MG (TOPROL XL) TAB PO SCH ×2 (07:52→20:07)
[2017-03-29] MEDS: LOSARTAN 100 MG (COZAAR) TABLET PO SCH (07:52)
[2017-03-29] MEDS: amLODIPine 10 MG (NORVASC) TAB PO SCH (07:52)
[2017-03-29] MEDS: SENNA W/DOCUSATE (SENOKOT S) TABLET PO SCH ×2 (07:53→20:07)
--- NOTE | 2017-03-29 09:01 | Physical Therapy Daily Note ---
PT Daily Note-Current Subjective Patient in wheelchair pre tx, has pain in his abdomen but unspecified amount. Appearance Patient back to bed post tx with nurse call, tray, bed alarm on. Mental Status Patient Orientation: Confused helmet Transfers Functional [place] Measure 0=Not Assessed/NA 4=Minimal Assistance 1=Total Assistance 5=Supervision or Setup 2=Maximal Assistance 6=Modified [place] 3=Moderate Assistance 7=Complete IndependenceIRFPAI Quality Coding Scale 6 Independent with activity with or without an assistive device 5 Patient requires set up or clean up by helper. Patient completes activity by themselves 4 Supervision or touching assist (CGA). [place] provide cues , steadying assist 3 The helper provides less than half the effort to complete the activity 2 The helper provides more than half the effort to complete the activity 1 Dependent. The helper does all the effort to complete an activity 7 Patient refused to complete or attempt activity 9 The patient did not perform the activity before the current illness or injury 88 Not attempted due to Medical conditions or safety concerns Transfers (B, C, W/C) (FIM): 4 Scootin Rollin Supine to/from Sit: 5 Sit to/from Stand: 4 Bed to/from Chair: 4 Gait Training Gait (FIM): 4 Distance: 150' Gait Level of Assist: 4 Gait Persons Needed: 1 Gait Assistive Device: FWW CGA, patient tends to use the walker too far out in front of himself, gets out from behind the walker when turning, needs many cues for safety and direction but he tends not to heed them Wheelchair Training Does the Pt Use a Wheelchair?: Yes Wheelchair (FIM): 5 Distance: 1000' Wheelchair Level of Assist: 5 Type of Wheelchair: Manual Exercises NuStep Minutes: 10 NuStep Workload: 5 Treatments bed mobility and transfers, ambulation, wheelchair mobility Assessment Current Status: Poor Progress Patient follows directions poorly, does not want to participate, will only do an activity for a few seconds without constant encouragement. Patient will stop activities and delay as long as he can. PT Short Term Goals Short Term Goals Time Frame: Apr 10, 2017 Transfers (B,C,W/C) (FIM): 4 (CGA) Gait (FIM): 2 Gait Distance Comment: 50' Gait Level of Assist: 4 Gait Assistive Device: FWW PT Electromagnet Crane Operator Goals Long-Term Goals PT Electromagnet Crane Operator Goals Time Frame: Apr 24, 2017 Transfers (B,C,W/C) (FIM): 5 Sit to Lying (QC): 6 Lying-Sitting on Side/Bed(QC): 6 Sit to Stand (QC): 4 Rollin Roll Left to Right (QC): 6 Chair/Kay-sh-Csdlf Xfer(QC): 4 Car Transfer (QC): 4 Gait (FIM): 4 Distance: 150' Walk 10 feet (QC): 4 Walk 10ft-Uneven Surface(QC): 4 Walk 50ft with 2 Turns (QC): 4 Walk 150 ft (QC): 4 Gait Level of Assist: 4 (CGA) Gait Assistive Device: FWW Wheelchair (FIM): 5 Distance: 200' Wheelchair Level of Assist: 5 Wheel 50 feet with 2 turns (QC: 4 Stairs (FIM): 2 # of Steps: 4 1 Step (curb) (QC): 4 4 Steps (QC): 4 Stairs Level Of Assist: 4 PT Plan Problem List Problem List: Activity Tolerance, Functional Strength, Safety, Balance, Gait, Transfer, Bed Mobility, ROM Treatment/Plan Treatment Plan: Continue Plan of Care Treatment Plan: Bed Mobility, Concurrent Therapy, Education, Functional Activity Maciej, Functional Strength, Group Therapy, Gait, Safety, Therapeutic Exercise, Transfers Treatment Duration: Apr 24, 2017 Frequency: At least 5 of 7 days/Wk (IRF) Estimated Hrs Per Day: 1.5 hours per day Patient and/or Family Agrees t: Yes Safety Risks/Education Patient Education: Gait Training, Transfer Techniques, Correct Positioning, W/ C Management, Safety Issues Teaching Recipient: Patient Teaching Methods: Demonstration, Discussion Response to Teaching: Reinforcement Needed Time/GCodes Time In: 815 Time Out: 900 Total Billed Treatment Time: 45 Total Billed Treatment 1 visit GT 15' EX 10' WCH 20' DHAVAL FINLEY PT Mar 29, 2017 09:01
--- NOTE | 2017-03-29 10:15 | Physical Therapy Daily Note ---
PT Daily Note-Current Subjective Pt addresses this therapist by name when I enter the room. Pt recalls discussions yesterday, such as where this therapists children go to school. Pt recalls therapy session from yesterday. Transfers Functional [place] Measure 0=Not Assessed/NA 4=Minimal Assistance 1=Total Assistance 5=Supervision or Setup 2=Maximal Assistance 6=Modified [place] 3=Moderate Assistance 7=Complete IndependenceIRFPAI Quality Coding Scale 6 Independent with activity with or without an assistive device 5 Patient requires set up or clean up by helper. Patient completes activity by themselves 4 Supervision or touching assist (CGA). [place] provide cues , steadying assist 3 The helper provides less than half the effort to complete the activity 2 The helper provides more than half the effort to complete the activity 1 Dependent. The helper does all the effort to complete an activity 7 Patient refused to complete or attempt activity 9 The patient did not perform the activity before the current illness or injury 88 Not attempted due to Medical conditions or safety concerns Treatments Co treat with Speech. Working to find effective ways to maximize patient participation with skilled PT intervention. Speech therapy present to work on direction following, sequencing and task participation and PT addressing functional mobility. Initially, asked pt to scoot up in bed. After 20 minutes of encouraging and cueing with verbal as well as tactile cues to place legs and guide arms, pt did scoot himself up pulling on the head board and pushing with his feet. Then, asked him to perform exercises with his LE's. The remainder of the therapy time pt completed ankle pumps and heels slides. Worked on completion of the exercise as ST encourage counting etc. Pt in bed post treatment with bed alarm activated and call light in reach. Needs met at this time. Assessment Pt continues to use distraction techniques to divert actual therapy intervention. Co treating with speech in attempt to better reach him with encouragement skilled education/cues to participate. Pt is pleasant and likes to visit but does not stay on task. He is able to recall from yesterday, he uses humor and sarcasm appropriately. Unsure if he is cognitively able to stay on task or if this is more of a behavior. He does need PT to work on functional mobility, safety and activity; therefore using different treatment and approaches to encourage participation. This therapist has tried a blunt approach (in a no nonsense way), gentle encouragement, appealing to his side of understanding that we want to help him to joking with him. He tends to divert regardless. PT Short Term Goals Short Term Goals Time Frame: Apr 10, 2017 Transfers (B,C,W/C) (FIM): 4 (CGA) Gait (FIM): 2 Gait Distance Comment: 50' Gait Level of Assist: 4 Gait Assistive Device: FWW Wheelchair Distance: 1000' PT Usp Goals Usp Goals PT Usp Goals Time Frame: Apr 24, 2017 Transfers (B,C,W/C) (FIM): 5 Sit to Lying (QC): 6 Lying-Sitting on Side/Bed(QC): 6 Sit to Stand (QC): 4 Rollin Roll Left to Right (QC): 6 Chair/Itk-lf-Avhdj Xfer(QC): 4 Car Transfer (QC): 4 Gait (FIM): 4 Distance: 150' Walk 10 feet (QC): 4 Walk 10ft-Uneven Surface(QC): 4 Walk 50ft with 2 Turns (QC): 4 Walk 150 ft (QC): 4 Gait Level of Assist: 4 (CGA) Gait Assistive Device: FWW Wheelchair (FIM): 5 Distance: 200' Wheelchair Level of Assist: 5 Wheel 50 feet with 2 turns (QC: 4 Stairs (FIM): 2 # of Steps: 4 1 Step (curb) (QC): 4 4 Steps (QC): 4 Stairs Level Of Assist: 4 PT Plan Problem List Problem List: Activity Tolerance, Functional Strength, Safety, Balance, Gait, Transfer, Bed Mobility Treatment/Plan Treatment Plan: Continue Plan of Care Treatment Plan: Bed Mobility, Concurrent Therapy, Education, Functional Activity Maciej, Functional Strength, Group Therapy, Gait, Safety, Therapeutic Exercise, Transfers Treatment Duration: Apr 24, 2017 Frequency: At least 5 of 7 days/Wk (IRF) Estimated Hrs Per Day: 1.5 hours per day Patient and/or Family Agrees t: Yes Safety Risks/Education Patient Education: Safety Issues Teaching Recipient: Patient Teaching Methods: Demonstration, Discussion Response to Teaching: Reinforcement Needed Much time spend educating on the importance of participation. Discharge Recommendations Plan Continue to search for techniques that allow meaningful therapy intervention. Continue with 1 on 1 treatment as well as co treatment to achieve best participation. Time/GCodes Time In: 920 Time Out: 1002 Total Billed Treatment Time: 42 Total Billed Treatment visit FA 42 Co treat with RUI CASTAÑEDA PT Mar 29, 2017 10:15
--- NOTE | 2017-03-29 11:04 | Occupational Ther Daily Note ---
OT Current Status-Daily Note Subjective Pt alert, sitting in recliner. Pt asked when therapy was going to start. No c /o pain. Mental Status/Objective Patient Orientation: Person, Place, Time, Situation Functional [place] Measure 0=Not Assessed/NA 4=Minimal Assistance 1=Total Assistance 5=Supervision or Setup 2=Maximal Assistance 6=Modified [place] 3=Moderate Assistance 7=Complete [place] ADL-Treatment Pt agreed to take a shower. PETER got pt ready for shower. Pt procrastinated and it took pt 25 min for pt to be ready to ambulate to bathroom. Nrsg assisted with ambulating pt to bathroom. Pt stood in bathroom then started to turn around to walk out of bathroom and stated that he said he would take a shower sometime today not right now. PETER and nrsg encouraged pt to step into the shower, but refused and walked out of bathroom. PETER continued to encourage pt to take shower, pt refused. After 30 min of talking to pt to get him to participate in ADLs, he decided to change his pants. Pt took 30 min to change pants with SBA. Pt was able to don/doff socks and pants. Pt would fidgit with helmet, FWW and clothing and need to be redirected to stay on task. Pt then ambulated into bathroom and completed toileting and manipulated clothing with SBA. After therapy, pt sitting in w/c. PT took over care. All needs met in room. Functional [place] Measure 0=Not Assessed/NA 4=Minimal Assistance 1=Total Assistance 5=Supervision or Setup 2=Maximal Assistance 6=Modified [place] 3=Moderate Assistance 7=Complete IndependenceIRFPAI Quality Coding Scale 6 Independent with activity with or without an assistive device 5 Patient requires set up or clean up by helper. Patient completes activity by themselves 4 Supervision or touching assist (CGA). [place] provide cues , steadying assist 3 The helper provides less than half the effort to complete the activity 2 The helper provides more than half the effort to complete the activity 1 Dependent. The helper does all the effort to complete an activity 7 Patient refused to complete or attempt activity 9 The patient did not perform the activity before the current illness or injury 88 Not attempted due to Medical conditions or safety concerns Lower Body Dressing (FIM): 5 Lower Body Dressing (QC): 4 On/Off Footwear (QC): 4 Toileting (FIM): 5 Toileting Hygiene (QC): 4 Toilet/Commode Transfer (FIM): 4 Toilet Transfer (QC): 4 OT Short Term Goals Short Term Goals Time Frame: Apr 10, 2017 Bathing(FIM): 4 Upper Body Dressing(FIM): 4 Lower Body Dressing(FIM): 4 Transfers (B,C,W/C) (FIM): 4 (CGA) Toilet/Commode Transfer(FIM): 5 Additional Short Term Goals: 2-Verbalize Understanding, 3-ImproveStrength/Maciej 1=Demonstrate adherence to instructed precautions during ADL tasks. 2=Patient will verbalize/demonstrate understanding of assistive devices/ modifications for ADL. 3=Patient will improve strength/tolerance for activity to enable patient to perform ADL's. OT Sports Management Internship Goals Custodial Goals Time Frame: Apr 24, 2017 Eating (FIM): 6 Eating (QC): 6 Groomin Oral Hygiene (QC): 5 Bathing(FIM): 5 Shower/Bathe Self (QC): 5 Upper Body Dressing(FIM): 5 Upper Body Dressing (QC): 5 Lower Body Dressing(FIM): 5 Lower Body Dressing (QC): 5 On/Off Footwear (QC): 5 Toileting(FIM): 5 Toileting Hygiene (QC): 5 Toilet/Commode Transfer(FIM): 5 Toilet/Commode Transfer (QC): 5 Shower Transfer(FIM): 5 Additional Goals: 2-Verbalize Understanding, 3-ImproveStrength/Maciej 1=Demonstrate adherence to instructed precautions during ADL tasks. 2=Patient will verbalize/demonstrate understanding of assistive devices/ modifications for ADL. 3=Patient will improve strength/tolerance for activity to enable patient to perform ADL's. OT Education/Plan Problem List/Assessment Pt would benefit from skilled OT to increase his independence in basic self care to allow him to safely return to his home and to decrease caregiver burden Discharge Recommendations Plan/Recommendations: Continue POC Treatment Plan/Plan of Care Patient would benefit from OT for education, treatment and training to promote independence in ADL's, mobility, safety and/or upper extremity function for ADL' s. Plan of Care: ADL Retraining, Caregiver Training, Functional Mobility, Group Exercise/Act as Ind (education, exercise. act tolerance, socialization, funct activities, funct mobility), UE Funct Exercise/Act, UE Neuromus Re-Ed/Coord Treatment Duration: Apr 24, 2017 Frequency: Modified Program (IRF) (goal of 15 hours over 7 days (as able due to dialysis)) Estimated Hrs Per Day: 1.5 hours per day (1.25 to 1.5 ) Agreement: Yes Rehab Potential: Poor Time/GCodes Start Time: 06:50 Stop Time: 08:15 Total Time Billed (hr/min): 85 Billed Treatment Time 1 visit-FA 5 (85 min) RUI CORRIGAN Mar 29, 2017 11:04
--- NOTE | 2017-03-29 11:09 | ST Cognitive Linguistic Eval ---
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 Ivan Pitts Reason for Referral: Evaluation/Treatment Cognitive Evaluation Medical History Pertinent Medical History: DM, HTN, Renal Insufficiency Reviewed History: Yes Social History Current Living Status: Other Family Speech PLF-Current Status Prior Level of Function The patient provided limited information regarding prior level of function to the clinician. 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 With maximum clinician verbal prompting, as well as, turning on all lights in the patient's room, he minimally participated with the cognitive evaluation. Language Eval: Auditory Indent/Objects Multiple [place]atum: Functional Ident/Pics in Multiple Tatum: Functional Follows 1-Step Commands: Functional (While the patient is able to follow one step commands, he requires maximum prompting for completion.) Follows General Conversations: Moderate (The patient demonstrates frequent off- topic conversational topics and required consistent redirection to task.) Language Eval: Verbal Language Completes Spontaneous Greeting: Functional Produces Auto, Serial Info: Functional Imitates Simple Words/Phrases: Functional Word Finding: Moderate Requests Basic Needs: Functional States Basic Personal Info: Functional Cognitive Patient Orientation The patient was oriented to month, location, city and day of week. Objective Cognitive Domain Attention: Moderate Memory: WNL Problem Solving: Moderate Objective Impression The patient displays moderate cognitive impairments, most notably in the area of attention and impulsivity. The patient requires consistent verbal prompts to return to task and frequent encouragement for limited participation in therapy. Communication/Social Cognition Comprehension: 3 Expression: 5 Social Interaction: 2 Problem Solvin Memory: 5 Speech Patient Assess Expression of Ideas/Wants: Expression (4) Understanding [place] Content: Understands (4) Brief Interview-Mental Status: Yes Repetition of Three Words: Three (3) Temporal Orientation: Year: Missed by 1 year (2) Temporal Orientation: Month: Accurate within 5 days(2) Temporal Orientation: Day: Correct (1) Recall : Wear to say "Sock": Yes, no cue required (2) Recall : Color: Yes, no cue required (2) Recall : Bed: Yes, no cue required (2) Speech Short Term Goals Short Term Goals Short Term Goals 1. The patient will follow swallowing strategies with mild verbal cueing from the clinician with 70% accuracy. 2. The patient will participate in a complete cognitive evaluation. Time Frame-STG: One Week Speech Audio Recording Engineer Goals [facility] Goals 1. The patient will tolerate the least restrictive diet without signs/symptoms of aspiration or laryngeal penetration. 2. The patient will display improved attention span for increased safety in the least restriction environment. Time Frame: Two Weeks Comprehension: 5 Expression: 5 Social Interaction: 5 Problem Solvin Memory: 5 Speech-Plan Treatment Plan Speech Therapy Treatment Plan: Continue Plan of Care Continue skilled speech pathology to target functional problem solving and sustained attention. Treatment Duration: Apr 10, 2017 Frequency: Modified Program (IRF) Estimated Hrs Per Day: .5 hour per day Rehab Potential: Poor Safety Risks/Education Teaching Recipient: Patient Teaching Methods: Discussion Response to Teaching: Reinforcement Needed Education Topics Provided: Results, Recommendations, Plan of Care Time Speech Therapy Time In: 09:00 Speech Therapy Time Out: 09:20 Total Billed Time: 20 Billed Treatment Time 1, YVROSE DANIELS Mar 29, 2017 11:09
--- NOTE | 2017-03-29 11:49 | Speech Therapy Daily Note ---
Speech Daily Progress Note Subjective Date Seen by Provider: Mar 29, 2017 Time Seen by Provider: 09:20 The patient was laying in bed upon initiation of therapy. 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 Speech pathology focused on functional problem solving, comprehension of one-step commands, and sustained attention while physical therapy focused on functional mobility, strength, and coordination. Objective Sustained Attention/Problem Solving/One-Step Direction Following: Physical therapy focused on functional mobility and instructed the patient on specific exercises. Throughout exercises, the clinician continued to encourage topic maintenance, sustained attention, and memory. The patient was able to recall specific words provided by the clinician, as well as, was able to recall appropriate sequence to pull self-up in bed (however, delayed completing this task). The patient displays consistent distraction seeking behaviors, frequently delaying tasks that can be completed in a small amount of time. The patient used 20+ minutes to follow one, one-step command (pull self up in bed). Once the patient initiated the task, he was able to complete it with prompting from the clinician and physical therapist with minimal difficulty. The patient displays extremely poor and reduced sustained attention and topic maintenance. The patient is able to easily follow one step commands, however, takes an extended period to complete due to refusal and deferment. Assessment Assessment Current Status: Poor Progress Treatment Plan Continue Plan of Care Communication Comprehension: 3 Expression: 5 Social Cognition Social Interaction: 2 Problem Solvin Memory: 5 Speech Short Term Goals Short Term Goals Short Term Goals 1. The patient will follow swallowing strategies with mild verbal cueing from the clinician with 70% accuracy. 2. The patient will participate in a complete cognitive evaluation. Time Frame-STG: One Week Speech Customer Solutions Teammate Goals [facility] Goals 1. The patient will tolerate the least restrictive diet without signs/symptoms of aspiration or laryngeal penetration. 2. The patient will display improved attention span for increased safety in the least restriction environment. Time Frame: Two Weeks Comprehension: 5 Expression: 5 Social Interaction: 5 Problem Solvin Memory: 5 Speech-Plan Treatment Plan Speech Therapy Treatment Plan: Continue Plan of Care Continue skilled speech pathology to target functional problem solving, sustained attention, and reduced impulsivity. Treatment Duration: Apr 10, 2017 Frequency: Modified Program (IRF) Estimated Hrs Per Day: .5 hour per day Rehab Potential: Poor Safety Risks/Education Teaching Recipient: Patient Teaching Methods: Discussion Response to Teaching: Verbalize Understanding Education Topics Provided: Importance of Participation, Encouragement for Improvement Time Speech Therapy Time In: 09:20 Speech Therapy Time Out: 10:02 Total Billed Time: 42 Billed Treatment Time 1, YVROSE FERRO Mar 29, 2017 11:49
--- NOTE | 2017-03-29 13:47 | Physical Therapy Daily Note ---
PT Daily Note-Current Subjective Patient in recliner pre tx, has no complaints of pain. Will be co-treating with OT due to patient unsteadiness, impulsivity, difficulty with mobility and poor endurance. Appearance Patient in recliner post tx with nurse call, phone, tray, chair alarm on. Mental Status Patient Orientation: Person helmet Transfers Functional [place] Measure 0=Not Assessed/NA 4=Minimal Assistance 1=Total Assistance 5=Supervision or Setup 2=Maximal Assistance 6=Modified [place] 3=Moderate Assistance 7=Complete IndependenceIRFPAI Quality Coding Scale 6 Independent with activity with or without an assistive device 5 Patient requires set up or clean up by helper. Patient completes activity by themselves 4 Supervision or touching assist (CGA). [place] provide cues , steadying assist 3 The helper provides less than half the effort to complete the activity 2 The helper provides more than half the effort to complete the activity 1 Dependent. The helper does all the effort to complete an activity 7 Patient refused to complete or attempt activity 9 The patient did not perform the activity before the current illness or injury 88 Not attempted due to Medical conditions or safety concerns Transfers (B, C, W/C) (FIM): 4 Sit to/from Stand: 4 patient is highly impulsive, can be unsteady, needs cues for safety and hand placement Gait Training Gait (FIM): 4 Distance: 150'x2 Gait Level of Assist: 4 Gait Persons Needed: 1 Gait Assistive Device: FWW unsteady ambulation, patient tends to ambulate with walker too far out in front of him and steps out from behind the walker when turning, constant cues for direction and safety Exercises Seated Therapy Exercises: Long arc quads Seated Reps: 20 NuStep Minutes: 10 NuStep Workload: 5 Treatments ambulation, transfers, functional strengthening Assessment Current Status: Poor Progress Patient needs constant encouragement to participate, has extremely poor motivation, will stall from doing therapy as long as he can. PT Short Term Goals Short Term Goals Time Frame: Apr 10, 2017 Transfers (B,C,W/C) (FIM): 4 (CGA) Gait (FIM): 2 Gait Distance Comment: 50' Gait Level of Assist: 4 Gait Assistive Device: FWW Wheelchair Distance: 1000' PT Electric Wirer Goals Electric Wirer Goals PT Halfway Goals Time Frame: Apr 24, 2017 Transfers (B,C,W/C) (FIM): 5 Sit to Lying (QC): 6 Lying-Sitting on Side/Bed(QC): 6 Sit to Stand (QC): 4 Rollin Roll Left to Right (QC): 6 Chair/Yeo-gr-Hyerz Xfer(QC): 4 Car Transfer (QC): 4 Gait (FIM): 4 Distance: 150' Walk 10 feet (QC): 4 Walk 10ft-Uneven Surface(QC): 4 Walk 50ft with 2 Turns (QC): 4 Walk 150 ft (QC): 4 Gait Level of Assist: 4 (CGA) Gait Assistive Device: FWW Wheelchair (FIM): 5 Distance: 200' Wheelchair Level of Assist: 5 Wheel 50 feet with 2 turns (QC: 4 Stairs (FIM): 2 # of Steps: 4 1 Step (curb) (QC): 4 4 Steps (QC): 4 Stairs Level Of Assist: 4 PT Plan Problem List Problem List: Activity Tolerance, Functional Strength, Safety, Balance, Gait, Transfer, Bed Mobility, ROM Treatment/Plan Treatment Plan: Continue Plan of Care Treatment Plan: Bed Mobility, Concurrent Therapy, Education, Functional Activity Maciej, Functional Strength, Group Therapy, Gait, Safety, Therapeutic Exercise, Transfers Treatment Duration: Apr 24, 2017 Frequency: At least 5 of 7 days/Wk (IRF) Estimated Hrs Per Day: 1.5 hours per day Patient and/or Family Agrees t: Yes Safety Risks/Education Patient Education: Gait Training, Transfer Techniques, Correct Positioning, Safety Issues Teaching Recipient: Patient Teaching Methods: Demonstration, Discussion Response to Teaching: Reinforcement Needed Time/GCodes Time In: 1255 Time Out: 1340 Total Billed Treatment Time: 45 Total Billed Treatment 1 visit EX 15' GT 15' FA 15' DHAVAL FINLEY PT Mar 29, 2017 13:47
--- NOTE | 2017-03-29 14:44 | Occupational Ther Daily Note ---
OT Current Status-Daily Note Subjective Pt alert, sitting in recliner. No c/o pain. Co-treat with PT due to patient unsteadiness, impulsivity, difficulty with mobility and poor endurance. Mental Status/Objective Patient Orientation: Person, Place, Time, Situation Functional [place] Measure 0=Not Assessed/NA 4=Minimal Assistance 1=Total Assistance 5=Supervision or Setup 2=Maximal Assistance 6=Modified [place] 3=Moderate Assistance 7=Complete [place] ADL-Treatment Functional [place] Measure 0=Not Assessed/NA 4=Minimal Assistance 1=Total Assistance 5=Supervision or Setup 2=Maximal Assistance 6=Modified [place] 3=Moderate Assistance 7=Complete IndependenceIRFPAI Quality Coding Scale 6 Independent with activity with or without an assistive device 5 Patient requires set up or clean up by helper. Patient completes activity by themselves 4 Supervision or touching assist (CGA). [place] provide cues , steadying assist 3 The helper provides less than half the effort to complete the activity 2 The helper provides more than half the effort to complete the activity 1 Dependent. The helper does all the effort to complete an activity 7 Patient refused to complete or attempt activity 9 The patient did not perform the activity before the current illness or injury 88 Not attempted due to Medical conditions or safety concerns Other Treatment Pt procrastinated and required redirection to initiate treatment. Pt would scoot forward to stand then start talking and scoot back in chair(10 min). PT worked on ambulation and LE exercises. OT worked on UE exercises. Pt ambulated to therapy gym with PT, OT assist for safety. Pt completed 6 min on NuStep with 1# wt attached to wrists, frequently stopped and had to be redirected to finish 6 min (15 min). Pt then transferred to chair to complete more UE and LE exercises. Gave pt 6# hand wt and pt was to complete bicep curls 10 reps then pt decided to start tricep exercises and completed 4 reps and stopped and started talking. PT attempted to get pt to complete LE exercises, pt started but only completed a few and got off task. Pt then ambulated back to room and sat in recliner. Call light/phone in reach. All needs met in room. OT Short Term Goals Short Term Goals Time Frame: Apr 10, 2017 Bathing(FIM): 4 Upper Body Dressing(FIM): 4 Lower Body Dressing(FIM): 4 Transfers (B,C,W/C) (FIM): 4 (CGA) Toilet/Commode Transfer(FIM): 5 Additional Short Term Goals: 2-Verbalize Understanding, 3-ImproveStrength/Maciej 1=Demonstrate adherence to instructed precautions during ADL tasks. 2=Patient will verbalize/demonstrate understanding of assistive devices/ modifications for ADL. 3=Patient will improve strength/tolerance for activity to enable patient to perform ADL's. OT [facility] Goals Charge Entry Goals Time Frame: Apr 24, 2017 Eating (FIM): 6 Eating (QC): 6 Groomin Oral Hygiene (QC): 5 Bathing(FIM): 5 Shower/Bathe Self (QC): 5 Upper Body Dressing(FIM): 5 Upper Body Dressing (QC): 5 Lower Body Dressing(FIM): 5 Lower Body Dressing (QC): 5 On/Off Footwear (QC): 5 Toileting(FIM): 5 Toileting Hygiene (QC): 5 Toilet/Commode Transfer(FIM): 5 Toilet/Commode Transfer (QC): 5 Shower Transfer(FIM): 5 Comprehension(FIM): 5 Expression (FIM): 5 Social Interaction(FIM): 5 Problem Solving(FIM): 5 Memory(FIM): 5 Additional Goals: 2-Verbalize Understanding, 3-ImproveStrength/Maciej 1=Demonstrate adherence to instructed precautions during ADL tasks. 2=Patient will verbalize/demonstrate understanding of assistive devices/ modifications for ADL. 3=Patient will improve strength/tolerance for activity to enable patient to perform ADL's. OT Education/Plan Problem List/Assessment Pt would benefit from skilled OT to increase his independence in basic self care to allow him to safely return to his home and to decrease caregiver burden Discharge Recommendations Plan/Recommendations: Continue POC Treatment Plan/Plan of Care Patient would benefit from OT for education, treatment and training to promote independence in ADL's, mobility, safety and/or upper extremity function for ADL' s. Plan of Care: ADL Retraining, Caregiver Training, Functional Mobility, Group Exercise/Act as Ind (education, exercise. act tolerance, socialization, funct activities, funct mobility), UE Funct Exercise/Act, UE Neuromus Re-Ed/Coord Treatment Duration: Apr 24, 2017 Frequency: Modified Program (IRF) (goal of 15 hours over 7 days (as able due to dialysis)) Estimated Hrs Per Day: 1.5 hours per day (1.25 to 1.5 ) Agreement: Yes Rehab Potential: Poor Time/GCodes Start Time: 12:55 Stop Time: 13:40 Total Time Billed (hr/min): 45 Billed Treatment Time 1 visit-FA 3 (45 min) Co-treat 45 min with PT RUI CORRIGAN Mar 29, 2017 14:44
[2017-03-29 18:38] VITALS: BP 161/83
[2017-03-29] MEDS: MELATONIN 3 MG TABLET PO SCH (20:07)
[2017-03-29] MEDS: doxAzosin 4 MG (CARDURA) TAB PO SCH (20:07)
[2017-03-29] MEDS: LEVETIRACETAM 1,000 MG (KEPPRA) TABLET PO SCH (20:07)
[2017-03-29] MEDS: ATORVASTATIN 10 MG (LIPITOR) TABLET PO SCH (20:07)
[2017-03-30] MEDS: NIMODIPINE 30 MG PO SCH ×6 (00:48→20:48)
[2017-03-30] MEDS: NYSTATIN ORAL SUSP 5 ML UDC PO SCH ×4 (02:09→20:48)
[2017-03-30] MEDS ORDERED: HALOPERIDOL 5 MG/ML (HALDOL) AMP IM ONE (02:30)
[2017-03-30 05:47] VITALS: BP 167/97
[2017-03-30] MEDS: CALCIUM ACETATE 667 MG PO SCH ×3 (05:52→16:02)
--- NOTE | 2017-03-30 07:50 | Physical Therapy Daily Note ---
PT Daily Note-Current Subjective Patient in recliner pre tx, has no complaints of pain. Will be co-treating with OT for a shower due to patient impaired balance, poor safety awareness, poor activity tolerance. Appearance Patient BTB post tx with nurse call, phone, tray, bed alarm on. Mental Status Patient Orientation: Person helmet Transfers Functional [place] Measure 0=Not Assessed/NA 4=Minimal Assistance 1=Total Assistance 5=Supervision or Setup 2=Maximal Assistance 6=Modified [place] 3=Moderate Assistance 7=Complete IndependenceIRFPAI Quality Coding Scale 6 Independent with activity with or without an assistive device 5 Patient requires set up or clean up by helper. Patient completes activity by themselves 4 Supervision or touching assist (CGA). [place] provide cues , steadying assist 3 The helper provides less than half the effort to complete the activity 2 The helper provides more than half the effort to complete the activity 1 Dependent. The helper does all the effort to complete an activity 7 Patient refused to complete or attempt activity 9 The patient did not perform the activity before the current illness or injury 88 Not attempted due to Medical conditions or safety concerns Transfers (B, C, W/C) (FIM): 4 Scootin Rollin Supine to/from Sit: 5 Sit to/from Stand: 4 Bed to/from Chair: 4 Treatments bed mobility, transfers, showered patient Assessment Current Status: Poor Progress No change in mobility. Patient has poor compliance. He will stand and try to ambulate at inappropriate times, will not follow directions, stalls in performing activities. Patient is a high fall risk and has poor safety awareness and is impulsive. PT Short Term Goals Short Term Goals Time Frame: Apr 10, 2017 Transfers (B,C,W/C) (FIM): 4 (CGA) Gait (FIM): 2 Gait Distance Comment: 50' Gait Level of Assist: 4 Gait Assistive Device: FWW Wheelchair Distance: 1000' PT Precision Lens [employer]ger Goals Precision Lens [employer] Goals PT Alf Goals Time Frame: Apr 24, 2017 Transfers (B,C,W/C) (FIM): 5 Sit to Lying (QC): 6 Lying-Sitting on Side/Bed(QC): 6 Sit to Stand (QC): 4 Rollin Roll Left to Right (QC): 6 Chair/Mvd-qy-Btera Xfer(QC): 4 Car Transfer (QC): 4 Gait (FIM): 4 Distance: 150' Walk 10 feet (QC): 4 Walk 10ft-Uneven Surface(QC): 4 Walk 50ft with 2 Turns (QC): 4 Walk 150 ft (QC): 4 Gait Level of Assist: 4 (CGA) Gait Assistive Device: FWW Wheelchair (FIM): 5 Distance: 200' Wheelchair Level of Assist: 5 Wheel 50 feet with 2 turns (QC: 4 Stairs (FIM): 2 # of Steps: 4 1 Step (curb) (QC): 4 4 Steps (QC): 4 Stairs Level Of Assist: 4 PT Plan Problem List Problem List: Activity Tolerance, Functional Strength, Safety, Balance, Gait, Transfer, Bed Mobility Treatment/Plan Treatment Plan: Continue Plan of Care Treatment Plan: Bed Mobility, Concurrent Therapy, Education, Functional Activity Maciej, Functional Strength, Group Therapy, Gait, Safety, Therapeutic Exercise, Transfers Treatment Duration: Apr 24, 2017 Frequency: At least 5 of 7 days/Wk (IRF) Estimated Hrs Per Day: 1.5 hours per day Patient and/or Family Agrees t: Yes Safety Risks/Education Patient Education: Transfer Techniques, Correct Positioning, Safety Issues Teaching Recipient: Patient Teaching Methods: Demonstration, Discussion Response to Teaching: Reinforcement Needed Time/GCodes Time In: 805 Time Out: 845 Total Billed Treatment Time: 40 Total Billed Treatment 1 visit FA 40' DHAVAL FINLEY PT Mar 30, 2017 07:50
[2017-03-30] MEDS: LOSARTAN 100 MG (COZAAR) TABLET PO SCH (08:05)
[2017-03-30] MEDS: amLODIPine 10 MG (NORVASC) TAB PO SCH (08:05)
[2017-03-30] MEDS: meTOprolol SUCCINATE 100 MG (TOPROL XL) TAB PO SCH ×2 (08:05→20:49)
[2017-03-30] MEDS: QUEtiapine 25 MG (SEROquel) TAB IMMEDIATE RELEASE PO SCH ×2 (08:06→20:49)
[2017-03-30] MEDS: ACETAMINOPHEN 325 MG TABLET/CAPLET (TYLENOL) PO PRN ×3 (08:27→20:49)
--- NOTE | 2017-03-30 08:39 | Occupational Ther Daily Note ---
OT Current Status-Daily Note Subjective Pt sleeping in recliner. Per nrsg, pt had an agitated evening. Pt agreed to therapy. No c/o pain at this time. Pt has dialysis this am. Co-treat with PT due to patient unsteadiness, impulsivity, difficulty with mobility and poor endurance. Mental Status/Objective Functional [place] Measure 0=Not Assessed/NA 4=Minimal Assistance 1=Total Assistance 5=Supervision or Setup 2=Maximal Assistance 6=Modified [place] 3=Moderate Assistance 7=Complete [place] ADL-Treatment PT worked on transfers and ambulation. OT worked on ADLs. Pt required encouragement to take shower today. Continual redirections needed to stay on task, pt required increased time to complete all tasks. Pt transferred to shower chair with CGA then was transported into shower. After set up, pt completed bathing using hand held shower, shower chair and grabbars with SBA. Pt would not take underwear off to complete shower. With CGA pt is able to take off pants. Doffs/dons shirt by self. Pt required assist to don pants and socks. Pt has demonstrated ability to complete task though is very inconsistent. After therapy, pt lying in bed, nrsg had ordered breakfast. Call light/phone in reach. All needs met in room. Functional [place] Measure 0=Not Assessed/NA 4=Minimal Assistance 1=Total Assistance 5=Supervision or Setup 2=Maximal Assistance 6=Modified [place] 3=Moderate Assistance 7=Complete IndependenceIRFPAI Quality Coding Scale 6 Independent with activity with or without an assistive device 5 Patient requires set up or clean up by helper. Patient completes activity by themselves 4 Supervision or touching assist (CGA). [place] provide cues , steadying assist 3 The helper provides less than half the effort to complete the activity 2 The helper provides more than half the effort to complete the activity 1 Dependent. The helper does all the effort to complete an activity 7 Patient refused to complete or attempt activity 9 The patient did not perform the activity before the current illness or injury 88 Not attempted due to Medical conditions or safety concerns OT Short Term Goals Short Term Goals Time Frame: Apr 10, 2017 Bathing(FIM): 4 Upper Body Dressing(FIM): 4 Lower Body Dressing(FIM): 4 Transfers (B,C,W/C) (FIM): 4 (CGA) Toilet/Commode Transfer(FIM): 5 Additional Short Term Goals: 2-Verbalize Understanding, 3-ImproveStrength/Maciej 1=Demonstrate adherence to instructed precautions during ADL tasks. 2=Patient will verbalize/demonstrate understanding of assistive devices/ modifications for ADL. 3=Patient will improve strength/tolerance for activity to enable patient to perform ADL's. OT Longterm Goals Longterm Goals Time Frame: Apr 24, 2017 Eating (FIM): 6 Eating (QC): 6 Groomin Oral Hygiene (QC): 5 Bathing(FIM): 5 Shower/Bathe Self (QC): 5 Upper Body Dressing(FIM): 5 Upper Body Dressing (QC): 5 Lower Body Dressing(FIM): 5 Lower Body Dressing (QC): 5 On/Off Footwear (QC): 5 Toileting(FIM): 5 Toileting Hygiene (QC): 5 Toilet/Commode Transfer(FIM): 5 Toilet/Commode Transfer (QC): 5 Shower Transfer(FIM): 5 Comprehension(FIM): 5 Expression (FIM): 5 Social Interaction(FIM): 5 Problem Solving(FIM): 5 Memory(FIM): 5 Additional Goals: 2-Verbalize Understanding, 3-ImproveStrength/Maciej 1=Demonstrate adherence to instructed precautions during ADL tasks. 2=Patient will verbalize/demonstrate understanding of assistive devices/ modifications for ADL. 3=Patient will improve strength/tolerance for activity to enable patient to perform ADL's. OT Education/Plan Problem List/Assessment Pt would benefit from skilled OT to increase his independence in basic self care to allow him to safely return to his home and to decrease caregiver burden Discharge Recommendations Plan/Recommendations: Continue POC Treatment Plan/Plan of Care Patient would benefit from OT for education, treatment and training to promote independence in ADL's, mobility, safety and/or upper extremity function for ADL' s. Plan of Care: ADL Retraining, Caregiver Training, Functional Mobility, Group Exercise/Act as Ind (education, exercise. act tolerance, socialization, funct activities, funct mobility), UE Funct Exercise/Act, UE Neuromus Re-Ed/Coord Treatment Duration: Apr 24, 2017 Frequency: Modified Program (IRF) (goal of 15 hours over 7 days (as able due to dialysis)) Estimated Hrs Per Day: 1.5 hours per day (1.25 to 1.5 ) Agreement: Yes Rehab Potential: Poor Time/GCodes Start Time: 07:00 Stop Time: 07:45 Total Time Billed (hr/min): 45 Billed Treatment Time 1 visit-ADL 3 (45 min) Co-treat with PT 45 min RUI CORRIGAN Mar 30, 2017 08:39
[2017-03-30] MEDS: SENNA W/DOCUSATE (SENOKOT S) TABLET PO SCH ×2 (14:04→20:50)
[2017-03-30 18:09] VITALS: BP 164/88
[2017-03-30] MEDS: LEVETIRACETAM 1,000 MG (KEPPRA) TABLET PO SCH (20:49)
[2017-03-30] MEDS: ATORVASTATIN 10 MG (LIPITOR) TABLET PO SCH (20:49)
[2017-03-30] MEDS: MELATONIN 3 MG TABLET PO SCH (20:50)
[2017-03-30] MEDS: doxAzosin 4 MG (CARDURA) TAB PO SCH (20:50)
[2017-03-31] MEDS: NIMODIPINE 30 MG PO SCH ×4 (00:26→11:51)
[2017-03-31] MEDS: ACETAMINOPHEN 325 MG TABLET/CAPLET (TYLENOL) PO PRN ×5 (01:42→22:39)
[2017-03-31] MEDS: NYSTATIN ORAL SUSP 5 ML UDC PO SCH ×4 (01:44→20:32)
[2017-03-31 05:23] VITALS: BP 146/78
[2017-03-31] MEDS: CALCIUM ACETATE 667 MG PO SCH ×3 (06:40→17:08)
[2017-03-31] MEDS: LOSARTAN 100 MG (COZAAR) TABLET PO SCH (08:23)
[2017-03-31] MEDS: amLODIPine 10 MG (NORVASC) TAB PO SCH (08:23)
[2017-03-31] MEDS: meTOprolol SUCCINATE 100 MG (TOPROL XL) TAB PO SCH ×2 (08:23→20:32)
[2017-03-31] MEDS: QUEtiapine 25 MG (SEROquel) TAB IMMEDIATE RELEASE PO SCH ×2 (08:23→20:35)
[2017-03-31] MEDS: SENNA W/DOCUSATE (SENOKOT S) TABLET PO SCH ×2 (08:24→20:32)
[2017-03-31] MEDS: NICOTINE 7 MG (NICODERM) PATCH TD SCH (09:43)
[2017-03-31 17:24] VITALS: BP 172/85
[2017-03-31] MEDS: doxAzosin 4 MG (CARDURA) TAB PO SCH (20:32)
[2017-03-31] MEDS: MELATONIN 3 MG TABLET PO SCH (20:32)
[2017-03-31] MEDS: ATORVASTATIN 10 MG (LIPITOR) TABLET PO SCH (20:32)
[2017-03-31] MEDS: LEVETIRACETAM 1,000 MG (KEPPRA) TABLET PO SCH (20:32)
[2017-04-01] VITALS (11 sets, daily range): BP systolic 154–204; BP diastolic 72–100
[2017-04-01] MEDS: NYSTATIN ORAL SUSP 5 ML UDC PO SCH ×4 (01:37→19:58)
[2017-04-01] MEDS: cloNIDine 0.1 MG (CATAPRES) TAB PO PRN ×3 (03:36→16:00)
[2017-04-01] MEDS: CALCIUM ACETATE 667 MG PO SCH ×3 (06:15→16:00)
[2017-04-01] MEDS: ACETAMINOPHEN 325 MG TABLET/CAPLET (TYLENOL) PO PRN ×4 (06:16→19:58)
[2017-04-01] MEDS: meTOprolol SUCCINATE 100 MG (TOPROL XL) TAB PO SCH ×2 (08:38→20:01)
[2017-04-01] MEDS: LOSARTAN 100 MG (COZAAR) TABLET PO SCH (08:38)
[2017-04-01] MEDS: amLODIPine 10 MG (NORVASC) TAB PO SCH (08:38)
[2017-04-01] MEDS: QUEtiapine 25 MG (SEROquel) TAB IMMEDIATE RELEASE PO SCH ×2 (08:39→20:01)
[2017-04-01] MEDS: NICOTINE 7 MG (NICODERM) PATCH TD SCH (08:39)
[2017-04-01] MEDS: SENNA W/DOCUSATE (SENOKOT S) TABLET PO SCH ×2 (08:46→20:01)
[2017-04-01] MEDS ORDERED: FUROSEMIDE 40 MG (LASIX) TAB PO ONE (09:45)
[2017-04-01] MEDS: doxAzosin 4 MG (CARDURA) TAB PO SCH (20:01)
[2017-04-01] MEDS: MELATONIN 3 MG TABLET PO SCH (20:01)
[2017-04-01] MEDS: ATORVASTATIN 10 MG (LIPITOR) TABLET PO SCH (20:01)
[2017-04-01] MEDS: LEVETIRACETAM 1,000 MG (KEPPRA) TABLET PO SCH (20:03)
[2017-04-02] MEDS: ACETAMINOPHEN 325 MG TABLET/CAPLET (TYLENOL) PO PRN ×3 (00:02→17:06)
[2017-04-02] MEDS: cloNIDine 0.1 MG (CATAPRES) TAB PO PRN ×2 (00:38→15:29)
[2017-04-02 00:40] VITALS: BP 177/76
[2017-04-02] MEDS: NYSTATIN ORAL SUSP 5 ML UDC PO SCH ×4 (01:20→20:13)
[2017-04-02 01:30] VITALS: BP 160/72
[2017-04-02 05:18] VITALS: BP 158/80
[2017-04-02] MEDS: CALCIUM ACETATE 667 MG PO SCH ×3 (06:00→16:52)
--- NOTE | 2017-04-02 07:55 | Occupational Ther Daily Note ---
OT Current Status-Daily Note Subjective Pt alert, sitting in chair in front of sink. No c/o pain. Increased coughing today. Mental Status/Objective Patient Orientation: Person, Place, Time, Situation Functional [place] Measure 0=Not Assessed/NA 4=Minimal Assistance 1=Total Assistance 5=Supervision or Setup 2=Maximal Assistance 6=Modified [place] 3=Moderate Assistance 7=Complete [place] ADL-Treatment Nrsg had already had pt use cleansing clothes to clean up and don clean clothing. Pt was washing hands for an increased time in bathroom, fixated on task. Pt then ambulated to EOB and cut up banana and ate some eggs. Pt then stated that his oatmeal was 'gross', PETER ordered another food item. Waiting on food item, pt completed medium resistance theraband exercises. Pt required redirection on how to complete movement and to stay on task, 30 reps. Pt would do different number of reps to reach 30. Food item came then pt would not eat item and stated he would eat it later and that the oatmeal was 'gross'. Pt then stated 'all you want me to do is eat the oatmeal', PETER told pt that is why the alternative food was ordered. PETER then encouraged pt to go to gym to do exercises while pt waited on the van to take him to dialysis. Pt agreed and maneuvered w/c to and from gym. Pt completed 2 dowel codi exercises with 6# wt attached. Pt would do a few reps then put the dowel codi down needed redirection to finish 3 sets of 10 reps for each exercise. Pt then began to maneuver w/c back to room. Pt made it back to room with direction cues to avoid hitting things on the left side. Pt then stated that he needed to use the bathroom. Pt was directed to turn w/c around and lock it so he could ambulate into bathroom. Pt kept locking and unlocking w/c stating that he was trying to roll up into FWW and PETER was just trying to tell him what to do. Pt finally got the w/c where he wanted it then used FWW to ambulate into bathroom and transferred onto toilet with CGA. Pt was able to manipulate clothing and cleanse self with SBA using grabbar and FWW. Pt then sat in front of sink to wash hands. Perseverated on washing hands so that he could get his hands warm. When finally redirected, pt ambulated back into room and sat in w/c until dialysis van came to pick him up. Call light in reach. All needs met in room. Functional [place] Measure 0=Not Assessed/NA 4=Minimal Assistance 1=Total Assistance 5=Supervision or Setup 2=Maximal Assistance 6=Modified [place] 3=Moderate Assistance 7=Complete IndependenceIRFPAI Quality Coding Scale 6 Independent with activity with or without an assistive device 5 Patient requires set up or clean up by helper. Patient completes activity by themselves 4 Supervision or touching assist (CGA). [place] provide cues , steadying assist 3 The helper provides less than half the effort to complete the activity 2 The helper provides more than half the effort to complete the activity 1 Dependent. The helper does all the effort to complete an activity 7 Patient refused to complete or attempt activity 9 The patient did not perform the activity before the current illness or injury 88 Not attempted due to Medical conditions or safety concerns Toileting (FIM): 5 Toileting Hygiene (QC): 5 Transfers (B, C, W/C) (FIM): 4 Toilet/Commode Transfer (FIM): 4 Toilet Transfer (QC): 4 OT Short Term Goals Short Term Goals Time Frame: Apr 10, 2017 Bathing(FIM): 4 Upper Body Dressing(FIM): 4 Lower Body Dressing(FIM): 4 Transfers (B,C,W/C) (FIM): 4 (CGA) Toilet/Commode Transfer(FIM): 5 Additional Short Term Goals: 2-Verbalize Understanding, 3-ImproveStrength/Maciej 1=Demonstrate adherence to instructed precautions during ADL tasks. 2=Patient will verbalize/demonstrate understanding of assistive devices/ modifications for ADL. 3=Patient will improve strength/tolerance for activity to enable patient to perform ADL's. OT Long-Term Goals Braid Maker Goals Time Frame: Apr 24, 2017 Eating (FIM): 6 Eating (QC): 6 Groomin Oral Hygiene (QC): 5 Bathing(FIM): 5 Shower/Bathe Self (QC): 5 Upper Body Dressing(FIM): 5 Upper Body Dressing (QC): 5 Lower Body Dressing(FIM): 5 Lower Body Dressing (QC): 5 On/Off Footwear (QC): 5 Toileting(FIM): 5 Toileting Hygiene (QC): 5 Toilet/Commode Transfer(FIM): 5 Toilet/Commode Transfer (QC): 5 Shower Transfer(FIM): 5 Comprehension(FIM): 5 Expression (FIM): 5 Social Interaction(FIM): 5 Problem Solving(FIM): 5 Memory(FIM): 5 Additional Goals: 2-Verbalize Understanding, 3-ImproveStrength/Maciej 1=Demonstrate adherence to instructed precautions during ADL tasks. 2=Patient will verbalize/demonstrate understanding of assistive devices/ modifications for ADL. 3=Patient will improve strength/tolerance for activity to enable patient to perform ADL's. OT Education/Plan Problem List/Assessment Pt would benefit from skilled OT to increase his independence in basic self care to allow him to safely return to his home and to decrease caregiver burden Discharge Recommendations Plan/Recommendations: Continue POC Treatment Plan/Plan of Care Patient would benefit from OT for education, treatment and training to promote independence in ADL's, mobility, safety and/or upper extremity function for ADL' s. Plan of Care: ADL Retraining, Caregiver Training, Functional Mobility, Group Exercise/Act as Ind (education, exercise. act tolerance, socialization, funct activities, funct mobility), UE Funct Exercise/Act, UE Neuromus Re-Ed/Coord Treatment Duration: Apr 24, 2017 Frequency: Modified Program (IRF) (goal of 15 hours over 7 days (as able due to dialysis)) Estimated Hrs Per Day: 1.5 hours per day (1.25 to 1.5 ) Agreement: Yes Rehab Potential: Poor Time/GCodes Start Time: 07:00 Stop Time: 08:00 Total Time Billed (hr/min): 60 Billed Treatment Time 1 visit-ADL 3 (40 min) EX 1 (20 min) RUI CORRIGAN Apr 02, 2017 07:55
[2017-04-02] MEDS: SENNA W/DOCUSATE (SENOKOT S) TABLET PO SCH ×2 (08:02→21:19)
[2017-04-02] MEDS: LOSARTAN 100 MG (COZAAR) TABLET PO SCH (08:02)
[2017-04-02] MEDS: QUEtiapine 25 MG (SEROquel) TAB IMMEDIATE RELEASE PO SCH ×2 (08:03→21:20)
[2017-04-02] MEDS: amLODIPine 10 MG (NORVASC) TAB PO SCH (08:03)
[2017-04-02] MEDS: meTOprolol SUCCINATE 100 MG (TOPROL XL) TAB PO SCH ×2 (08:03→21:19)
[2017-04-02] MEDS: NICOTINE 7 MG (NICODERM) PATCH TD SCH (09:00)
--- NOTE | 2017-04-02 10:09 | Physical Therapy Daily Note ---
PT Daily Note-Current Subjective Pt sitting in [facility] in room upon arrival. Pt is waiting to leave for Dialysis but agrees to PT. Pain Location: No Pain Reported Mental Status Patient Orientation: Person, Confused, Place Attachments: Other-See Comments (Helmet) Transfers Functional [place] Measure 0=Not Assessed/NA 4=Minimal Assistance 1=Total Assistance 5=Supervision or Setup 2=Maximal Assistance 6=Modified [place] 3=Moderate Assistance 7=Complete IndependenceIRFPAI Quality Coding Scale 6 Independent with activity with or without an assistive device 5 Patient requires set up or clean up by helper. Patient completes activity by themselves 4 Supervision or touching assist (CGA). [place] provide cues , steadying assist 3 The helper provides less than half the effort to complete the activity 2 The helper provides more than half the effort to complete the activity 1 Dependent. The helper does all the effort to complete an activity 7 Patient refused to complete or attempt activity 9 The patient did not perform the activity before the current illness or injury 88 Not attempted due to Medical conditions or safety concerns Treatments PT sitting in [facility] upon arrival. CYBER LEGAL ADVISOR assists pt with propelling [facility] to main entrance of hospital as well as engaging in pt education on why pt has PT and what the benefits of PT are. Pt is put on lift for van to take pt to Dialysis. Pt to return in pm. Assessment Current Status: Fair Progress Pt reports feeling tired and didn't sleep well so pt was drowsy. PT Short Term Goals Short Term Goals Time Frame: Apr 10, 2017 Transfers (B,C,W/C) (FIM): 4 (CGA) Gait (FIM): 2 Gait Distance Comment: 50' Gait Level of Assist: 4 Gait Assistive Device: FWW Wheelchair Distance: 1000' PT Adding Machine Mechanic Goals Custodial Goals PT Custodial Goals Time Frame: Apr 24, 2017 Transfers (B,C,W/C) (FIM): 5 Sit to Lying (QC): 6 Lying-Sitting on Side/Bed(QC): 6 Sit to Stand (QC): 4 Rollin Roll Left to Right (QC): 6 Chair/Omg-tc-Ihprd Xfer(QC): 4 Car Transfer (QC): 4 Gait (FIM): 4 Distance: 150' Walk 10 feet (QC): 4 Walk 10ft-Uneven Surface(QC): 4 Walk 50ft with 2 Turns (QC): 4 Walk 150 ft (QC): 4 Gait Level of Assist: 4 (CGA) Gait Assistive Device: FWW Wheelchair (FIM): 5 Distance: 200' Wheelchair Level of Assist: 5 Wheel 50 feet with 2 turns (QC: 4 Stairs (FIM): 2 # of Steps: 4 1 Step (curb) (QC): 4 4 Steps (QC): 4 Stairs Level Of Assist: 4 PT Plan Problem List Problem List: Activity Tolerance, Functional Strength, Safety, Balance, Gait, Transfer, Bed Mobility Treatment/Plan Treatment Plan: Continue Plan of Care Treatment Plan: Bed Mobility, Concurrent Therapy, Education, Functional Activity Maciej, Functional Strength, Group Therapy, Gait, Safety, Therapeutic Exercise, Transfers Treatment Duration: Apr 24, 2017 Frequency: At least 5 of 7 days/Wk (IRF) Estimated Hrs Per Day: 1.5 hours per day Patient and/or Family Agrees t: Yes Safety Risks/Education Patient Education: Correct Positioning, Disease Process, Safety Issues Teaching Recipient: Patient Teaching Methods: Discussion Response to Teaching: Verbalize Understanding, Reinforcement Needed Time/GCodes Time In: 800 Time Out: 820 Total Billed Treatment Time: 20 Total Billed Treatment 1, FA (20m) LEO CARDONA CYBER LEGAL ADVISOR Apr 02, 2017 10:09
[2017-04-02 15:05] VITALS: BP 202/92
--- NOTE | 2017-04-02 15:27 | Speech Therapy Progress Note ---
Therapy Progress Note Speech pathology attempted to treat patient (cognition and swallowing) following his return from dialysis on this date. Upon return, the patient presented with a blood pressure of 222/108, a bloody nose, a temperature of 100.4, and a wet cough. Prior to the placement of supplemental oxygen, the patient SpO2% was 84%. Following placement of oxygen, the patient's SpO2% was 88 to 90%. Due to the above findings, skilled intervention has been deferred on at this time pending medical care. Speech pathology will re-attempt therapy as appropriate. 1, Visit YVROSE CORDOVA Apr 02, 2017 15:27
--- NOTE | 2017-04-02 15:27 | Physical Therapy Progress Note ---
Therapy Progress Note Treatment attempted this afternoon after he came back from dialysis. Patient has 222/108 bp, has 100.4 degrees F temp, a bloody nose, a wet hoarse cough, O2 sat at 84% without O2 and 88-90% on 2 liters of O2 nasal canula. Patient is ill with a high BP and fever. Patient will not be able to perform PT this afternoon because of this. Will check again in the morning. Nurse states that they are going to get a chest xray and check his labs. DHAVAL FINLEY PT Apr 02, 2017 15:27
--- NOTE | 2017-04-02 15:32 | Occ Therapy Progress Note ---
Therapy Progress Note Pt came back from dialysis at approximately 1500. Pt was shaking and was reported to nrsg that pt was chilling, coughing and fever at dialysis. Vital signs were taken by nrsg upon return to room, BP-222/108, O2 before oxygen 84 then after 2L oxygen it was 88-90. Temperature 100.4 degrees and had a wet unproductive cough. Due to this pt unable to participate in OT. Nrsg stated that pt will be having a chest x-ray. RUI CORRIGAN Apr 02, 2017 15:32
[2017-04-02 15:41] LABS: BASOPHILS % (AUTO) 0 % (0-10); EOSINOPHILS % (AUTO) 0 % (0-10); LYMPHOCYTES # (AUTO) 0.2 X 10^3 (1.0-4.0); LYMPHOCYTES % (AUTO) 2 % (12-44); MEAN CORPUSCULAR HEMOGLOBIN 31 PG (25-34); MEAN CORPUSCULAR HGB CONC 33 G/DL (32-36); MEAN CORPUSCULAR VOLUME 93 FL (80-99); MEAN PLATELET VOLUME 10.3 FL (7.4-10.4); MONOCYTES # (AUTO) 0.5 X 10^3 (0.0-1.0); MONOCYTES % (AUTO) 8 % (0-12); NEUTROPHILS # (AUTO) 5.5 X 10^3 (1.8-7.8); NEUTROPHILS % (AUTO) 89 % (42-75); PLATELET COUNT 113 10^3/uL (130-400); RED BLOOD COUNT 2.44 10^6/uL (4.35-5.85); RED CELL DISTRIBUTION WIDTH 13.3 % (10.0-14.5); WHITE BLOOD COUNT 6.2 10^3/uL (4.3-11.0)
[2017-04-02 16:00] LABS: BAND NEUTROPHILS 30 %; BASOPHILS % (MANUAL) 0 %; EOSINOPHILS % (MANUAL) 0 %; LYMPHOCYTES % (MANUAL) 5 %; NEUTROPHILS % (MANUAL) 60 %
--- NOTE | 2017-04-02 16:17 | Diagnostic Imaging Report ---
INDICATION: Decrease in oxygen saturation. TECHNIQUE: Two view chest 3:58 PM CORRELATION STUDY: 03/09/2017 FINDINGS: Previously noted endotracheal tube and gastric tube have been removed. Heart size enlarged likely stable. Vasculature is prominent with bilateral perihilar infiltrate versus edema. There is improved aeration throughout the left lung. However, likely pleural effusion which may be perhaps loculated over the left lung base as well as consolidation of the left lung base does persist. Findings consistent with likely hiatal hernia. Degenerative change of the thoracic spine. IMPRESSION: 1. Cardiac enlargement which may be improved from prior study. There is some degree of vascular congestion suggested. 2. Improved but continued likely complex or loculated left pleural effusion along with consolidation of the left lung base. Dictated by: Dictated on workstation # [id number]
[2017-04-02] MEDS: FUROSEMIDE 40 MG (LASIX) TAB PO SCH (16:52)
[2017-04-02 17:45] VITALS: BP 190/90
[2017-04-02 19:41] VITALS: BP 184/80
[2017-04-02] MEDS: doxAzosin 4 MG (CARDURA) TAB PO SCH (21:20)
[2017-04-02] MEDS: LEVETIRACETAM 1,000 MG (KEPPRA) TABLET PO SCH (21:20)
[2017-04-02] MEDS: ATORVASTATIN 10 MG (LIPITOR) TABLET PO SCH (21:20)
[2017-04-02] MEDS: MELATONIN 3 MG TABLET PO SCH (21:20)
[2017-04-03] MEDS: NYSTATIN ORAL SUSP 5 ML UDC PO SCH ×2 (01:26→07:56)
[2017-04-03] MEDS: CALCIUM ACETATE 667 MG PO SCH (06:00)
[2017-04-03] MEDS: FUROSEMIDE 40 MG (LASIX) TAB PO SCH (06:00)
[2017-04-03 06:17] VITALS: BP 158/77
[2017-04-03] MEDS: ACETAMINOPHEN 325 MG TABLET/CAPLET (TYLENOL) PO PRN (07:55)
--- NOTE | 2017-04-03 08:23 | Progress Note (SOAP) ---
Subjective Time Seen by Provider: 08:20 Subjective/Events-last exam patient has noted please yesterday after dialysisand bleeding this morning debility. Hypertension. Renal failure. Dialysis. Diabetes Objective Exam Vital Signs Date Time Temp Pulse Resp B/P (MAP) Pulse Ox O2 Delivery O2 Flow Rate FiO2 04/03/17 07:55 101.7 04/03/17 06:17 98.2 78 18 158/77 (104) 93 Nasal Cannula 3.00 04/02/17 21:00 Nasal Cannula 3.00 04/02/17 19:41 184/80 (114) 04/02/17 18:59 Nasal Cannula 3.00 04/02/17 18:45 101.3 04/02/17 17:45 102.4 83 21 190/90 (123) 92 Nasal Cannula 3.00 04/02/17 15:05 100.4 92 22 202/92 (128) 84 Room Air 04/02/17 14:18 Nasal Cannula 2.00 04/02/17 09:00 Nasal Cannula 3.00 I & O 04/03/17 07:00 Intake Total 930 ml Balance 930 ml Capillary Refill : General Appearance: No Apparent Distress, WD/WN HEENT: Other (epistaxis) Results Lab Laboratory Tests 04/02/17 15:32: Glucometer 128H 04/02/17 15:33: White Blood Count 6.2, Red Blood Count 2.44L, Hemoglobin 7.5L, Hematocrit 23L, Mean Corpuscular Volume 93, Mean Corpuscular Hemoglobin 31, Mean Corpuscular Hemoglobin Concent 33, Red Cell Distribution Width 13.3, Platelet Count 113L, Mean Platelet Volume 10.3, Neutrophils (%) (Auto) 89H, Lymphocytes (%) (Auto) 2L , Monocytes (%) (Auto) 8, Eosinophils (%) (Auto) 0, Basophils (%) (Auto) 0, Neutrophils # (Auto) 5.5, Lymphocytes # (Auto) 0.2L, Monocytes # (Auto) 0.5, Eosinophils # (Auto) 0.0, Basophils # (Auto) 0.0, Neutrophils % (Manual) 60, Lymphocytes % (Manual) 5, Monocytes % (Manual) 5, Eosinophils % (Manual) 0, Basophils % (Manual) 0, Band Neutrophils 30, Blood Morphology Comment NORMAL 12/26/17 20:26: Glucometer 139H 04/03/17 05:04: Glucometer 119H Assessment/Plan Assessment/Plan Assess & Plan/Chief Complaint debility. CVA. Right fracture MCA aneurysm Hypertension. Renal failure. Patient on dialysis. Diabetes . 04/03/70. Debility. CVA. Epistaxis. Dialysis. Renal failure. Clinical Quality Measures DVT/VTE Risk/Contraindication: Risk Factor Score Per Nursin RFS Level Per Nursing on Admit: 2=Moderate IAIN AHUJA DO Apr 03, 2017 08:23
[2017-04-03] MEDS: meTOprolol SUCCINATE 100 MG (TOPROL XL) TAB PO SCH (08:48)
[2017-04-03] MEDS: LOSARTAN 100 MG (COZAAR) TABLET PO SCH (08:48)
[2017-04-03] MEDS: NICOTINE 7 MG (NICODERM) PATCH TD SCH (08:48)
[2017-04-03] MEDS: amLODIPine 10 MG (NORVASC) TAB PO SCH (08:48)
[2017-04-03] MEDS: QUEtiapine 25 MG (SEROquel) TAB IMMEDIATE RELEASE PO SCH (08:48)
[2017-04-03] MEDS: SENNA W/DOCUSATE (SENOKOT S) TABLET PO SCH (08:48)
[2017-04-03 09:02] LABS: BASOPHILS % (AUTO) 0 % (0-10); EOSINOPHILS % (AUTO) 0 % (0-10); LYMPHOCYTES # (AUTO) 0.3 X 10^3 (1.0-4.0); LYMPHOCYTES % (AUTO) 5 % (12-44); MEAN CORPUSCULAR HEMOGLOBIN 31 PG (25-34); MEAN CORPUSCULAR HGB CONC 33 G/DL (32-36); MEAN CORPUSCULAR VOLUME 94 FL (80-99); MEAN PLATELET VOLUME 10.3 FL (7.4-10.4); MONOCYTES # (AUTO) 0.5 X 10^3 (0.0-1.0); MONOCYTES % (AUTO) 11 % (0-12); NEUTROPHILS # (AUTO) 4.2 X 10^3 (1.8-7.8); NEUTROPHILS % (AUTO) 84 % (42-75); PLATELET COUNT 107 10^3/uL (130-400); RED BLOOD COUNT 2.16 10^6/uL (4.35-5.85); RED CELL DISTRIBUTION WIDTH 13.3 % (10.0-14.5)
[2017-04-03 09:24] LABS: CALCIUM 9.3 MG/DL (8.5-10.1); CREATININE SERUM 6.98 MG/DL (0.60-1.30); POTASSIUM 4.3 MMOL/L (3.6-5.0)
[2017-04-03 09:52] LABS: BAND NEUTROPHILS 9 %; BASOPHILS % (MANUAL) 0 %; EOSINOPHILS % (MANUAL) 0 %; LYMPHOCYTES % (MANUAL) 6 %; NEUTROPHILS % (MANUAL) 80 %
--- NOTE | 2017-04-03 09:52 | Physical Therapy Progress Note ---
Therapy Progress Note Pt on hold per Dr. Potts. Awaiting transfer to outside facility. No treatment rendered at this time. RUI WHITMORE PT Apr 03, 2017 09:52
[2017-04-03 09:53] LABS: ANISOCYTOSIS SLIGHT
--- NOTE | 2017-04-03 09:53 | Occ Therapy Progress Note ---
Therapy Progress Note Pt on hold per Dr. Potts due to medical issues. Pt to transfer to today. RUI CORRIGAN Apr 03, 2017 09:53
--- NOTE | 2017-04-03 09:58 | Speech Therapy Progress Note ---
Therapy Progress Note The patient is currently placed on medical hold. Speech pathology will reattempt treatment session as appropriate. YVROSE CORDOVA Apr 03, 2017 09:58
--- NOTE | 2017-04-03 10:04 | Therapy Team Discharge Summary ---
Therapy Discharge Summary Discharge Recommendations Date of Discharge Therapy D/C Recommendations: Home w/ Family Support, [facility] (TCU/[facility]) Occupational Therapy Decreased Activ Tolerance, Decreased Safety Aware, Decreased UE Strength, Dependent Transfers, Impaired Cognition, Impaired Self-Care Skills Speech-Language Pathology The patient was admitted to [facility] following a MCA aneurysm and subsequent craniotomy. Upon admission, the patient displayed moderate cognitive impairments, as well as, mild oropharyngeal dysphagia. Skilled speech therapy focused on swallowing strategies, following one step directions, functional safety, and a reduction in impulsive behaviors. The patient did not meet speech pathology goals placed and required maximum encouragement for limited participation. Due to medical issues, the patient will discharge to an outside facility on this date. Continued speech pathology services are warranted. PT Ribbon Blocker Goals Ribbon Blocker Goals PT Half-Way Goals Time Frame: Apr 24, 2017 Transfers (B,C,W/C) (FIM): 5 Roll Left to Right (QC): 6 Sit to Lying (QC): 6 Lying-Sitting on Side/Bed(QC): 6 Sit to Stand (QC): 4 Chair/Qrf-kn-Iooll Xfer(QC): 4 Car Transfer (QC): 4 Gait (FIM): 4 Distance: 150' Walk 10 feet (QC): 4 Walk 10ft-Uneven Surface(QC): 4 Walk 50ft with 2 Turns (QC): 4 Walk 150 ft (QC): 4 Gait Level of Assist: 4 (CGA) Gait Assistive Device: FWW Wheelchair (FIM): 5 Distance: 200' Wheelchair Level of Assist: 5 Wheel 50 feet with 2 turns (QC: 4 Stairs (FIM): 2 # of Steps: 4 1 Step (curb) (QC): 4 4 Steps (QC): 4 Stairs Level Of Assist: 4 OT Half-Way Goals Ribbon Blocker Goals Time Frame: Apr 24, 2017 Eating (FIM): 6 Eating (QC): 6 Oral Hygiene (QC): 5 Grooming(FIM): 5 Bathing(FIM): 5 Shower/Bathe Self (QC): 5 Upper Body Dressing(FIM): 5 Upper Body Dressing (QC): 5 Lower Body Dressing(FIM): 5 Lower Body Dressing (QC): 5 On/Off Footwear (QC): 5 Toileting(FIM): 5 Toileting Hygiene (QC): 5 Toilet/Commode Transfer(FIM): 5 Toilet/Commode Transfer (QC): 5 Shower Transfer(FIM): 5 Comprehension(FIM): 5 Expression (FIM): 5 Social Interaction(FIM): 5 Problem Solving(FIM): 5 Memory(FIM): 5 Additional Goals: 2-Verbalize Understanding, 3-ImproveStrength/Maciej 1=Demonstrate adherence to instructed precautions during ADL tasks. 2=Patient will verbalize/demonstrate understanding of assistive devices/ modifications for ADL. 3=Patient will improve strength/tolerance for activity to enable patient to perform ADL's. Speech Ribbon Blocker Goals Half-Way Goals 1. The patient will tolerate the least restrictive diet without signs/symptoms of aspiration or laryngeal penetration. 2. The patient will display improved attention span for increased safety in the least restriction environment. Time Frame: Two Weeks Comprehension: 5 (NOT MET) Expression: 5 (NOT MET) Social Interaction: 5 (NOT MET) Problem Solvin (NOT MET) Memory: 5 (NOT MET) YVROSE CORDOVA Apr 03, 2017 10:04
--- NOTE | 2017-04-03 10:33 | Consultation (CHS) ---
HPI History of Present Illness: I am called to consult on this 51yo gentleman with a history of DMT2 requiring insulin, ESRD on hemodialysis, and recent craniotomy for an MCA aneurysm, due to recent fevers and hypoxia. Patient was admitted to IRU on Mar 26 and has been participating in therapy and going to outpatient dialysis. I was called on Apr 01 d/t a fever to 101 which decreased with Tylenol. On Apr 02, patient went to dialysis and voiced to them that he felt he was fluid overloaded and should have extra taken off. We were unable to obtain records as to whether this was done successfully. Since the, he has again spiked a temp to 102. Sputum and blood cultures are negative in the past 48h. He does have a nonproductive cough. He makes little urine, and a trial of po lasix was unsuccessful in removing fluid. Today, Naren is on the floor kneeling beside his bed stating that is how he is most comfortable. Until today, he has been participating in therapy and progressing toward his goals. He has shown increasing shortness of breath. He was initially refusing to wear his oxygen cannula d/t recent nosebleeds but then put it on. O2 sats without the oxygen were in the mid 80s and with the oxygen were 97%. His blood pressure has been extraordinarily high as well, up to the 200s, but improves with his home regimen and PRN clonidine with most recent vitals being RR 20, saO2 97%, BP 147/ 68, T 100.0, and P 61. Source: patient, RN/, RN notes reviewed, old records Exam Limitations: clinical condition Date seen by provider: Apr 03, 2017 Time Seen by Provider: 09:00 Attending Physician Ivan Pitts MD [place] [place] Consult Date of Admission Mar 26, 2017 at 16:23 Home Medications Home Medications Reviewed patient Home Medication Reconciliation Form Allergies Coded Allergies: NKANo Known Allergies (Verified Allergy, Unknown, 06/13/05) [id number] Hx Patient Social History Alcohol Use: Occasionally Uses Recreational Drug Use: No Smoking Status: Former Smoker Former smoker/When Quit: Dec 07, 2014 Type Used: Cigarettes Recent Foreign Travel: No Contact w/other who traveled: No Recent Hopitalizations: Yes Recent Infectious Disease Expo: No Physical Abuse Screen: No Sexual Abuse: No Immunizations Up To Date Tetanus Booster (TDap): Unknown Date of Pneumonia Vaccine: Jan 06, 2017 Date of Influenza Vaccine: Jan 06, 2017 Family Medical History Family History: Abdominal aortic aneurysm 19 MOTHER Blood clots 19 MOTHER Diabetes mellitus 19 MOTHER FH: colon cancer 19 MOTHER FH: lung cancer 19 MOTHER Hypertension 19 MOTHER Review of Systems (CHC) Constitutional: no symptoms reported All Other Systems Reviewed Negative Unless Noted: Yes Reviewed Test Results Reviewed Test Results Lab Laboratory Tests Test 03/31/17 16:08 03/31/17 21:11 04/01/17 06:15 04/01/17 11:15 Range/Units Glucometer 170 H 117 H 103 113 H 70-110 MG/DL Test 04/01/17 17:50 04/01/17 20:58 04/02/17 04:24 04/02/17 15:32 Range/Units Glucometer 114 H 115 H 128 H 128 H 70-110 MG/DL Test 04/02/17 15:33 04/02/17 20:26 04/03/17 05:04 04/03/17 08:53 Range/Units White Blood Count 6.2 5.0 4.3-11.0 10^3/uL Red Blood Count 2.44 L 2.16 L 4.35-5.85 10^6/uL Hemoglobin 7.5 L 6.6 *L 13.3-17.7 G/DL Hematocrit 23 L 20 *L 40-54 % Mean Corpuscular Volume 93 94 80-99 FL Mean Corpuscular Hemoglobin 31 31 25-34 PG Mean Corpuscular Hemoglobin Concent 33 33 32-36 G/DL Red Cell Distribution Width 13.3 13.3 10.0-14.5 % Platelet Count 113 L 107 L 130-400 10^3/uL Mean Platelet Volume 10.3 10.3 7.4-10.4 FL Neutrophils (%) (Auto) 89 H 84 H 42-75 % Lymphocytes (%) (Auto) 2 L 5 L 12-44 % Monocytes (%) (Auto) 8 11 0-12 % Eosinophils (%) (Auto) 0 0 0-10 % Basophils (%) (Auto) 0 0 0-10 % Neutrophils # (Auto) 5.5 4.2 1.8-7.8 X 10^3 Lymphocytes # (Auto) 0.2 L 0.3 L 1.0-4.0 X 10^3 Monocytes # (Auto) 0.5 0.5 0.0-1.0 X 10^3 Eosinophils # (Auto) 0.0 0.0 0.0-0.3 10^3/uL Basophils # (Auto) 0.0 0.0 0.0-0.1 10^3/uL Neutrophils % (Manual) 60 80 % Lymphocytes % (Manual) 5 6 % Monocytes % (Manual) 5 5 % Eosinophils % (Manual) 0 0 % Basophils % (Manual) 0 0 % Band Neutrophils 30 9 % Blood Morphology Comment NORMAL Glucometer 139 H 119 H 70-110 MG/DL Anisocytosis SLIGHT Sodium Level 134 L 135-145 MMOL/L Potassium Level 4.3 3.6-5.0 MMOL/L Chloride Level 90 L 98-107 MMOL/L Carbon Dioxide Level 29 21-32 MMOL/L Anion Gap 15 H 5-14 MMOL/L Blood Urea Nitrogen 35 H 7-18 MG/DL Creatinine 6.98 H 0.60-1.30 MG/DL Estimat Glomerular Filtration Rate 8 BUN/Creatinine Ratio 5 Glucose Level 115 H 70-105 MG/DL Calcium Level 9.3 8.5-10.1 MG/DL B-Type Natriuretic Peptide 3496.9 H <100.0 PG/ML Test 04/03/17 11:06 Range/Units Glucometer 122 H 70-110 MG/DL Radiology Date of Exam: 04/02/17 CHEST PA/LAT (2 VIEW) INDICATION: Decrease in oxygen saturation. TECHNIQUE: Two view chest 3:58 PM CORRELATION STUDY: 03/09/2017 FINDINGS: Previously noted endotracheal tube and gastric tube have been removed. Heart size enlarged likely stable. Vasculature is prominent with bilateral perihilar infiltrate versus edema. There is improved aeration throughout the left lung. However, likely pleural effusion which may be perhaps loculated over the left lung base as well as consolidation of the left lung base does persist. Findings consistent with likely hiatal hernia. Degenerative change of the thoracic spine. IMPRESSION: 1. Cardiac enlargement which may be improved from prior study. There is some degree of vascular congestion suggested. 2. Improved but continued likely complex or loculated left pleural effusion along with consolidation of the left lung base. Physical Exam-(CHC) Physical Exam Vital Signs VS - Last 72 Hours, by Label 03/31/17 03/31/17 04/01/17 04/01/17 17:24 21:00 03:36 04:33 Temp 98.8 Pulse 72 72 Resp 18 B/P (MAP) 172/85 (114) 204/98 (133) 179/84 (115) Pulse Ox 95 O2 Delivery Room Air Room Air 04/01/17 04/01/17 04/01/17 04/01/17 05:10 08:00 08:51 09:08 Temp 98.9 Pulse 79 77 Resp 20 20 B/P (MAP) 179/84 (115) 192/100 (130) 192/87 (122) Pulse Ox 93 97 O2 Delivery Room Air Room Air Nasal Cannula O2 Flow Rate 2.50 04/01/17 04/01/17 04/01/17 04/01/17 09:25 09:45 13:50 15:21 Temp 100.2 99.8 99.4 98.5 Pulse 78 77 76 68 Resp 20 20 20 20 B/P (MAP) 171/87 (115) 162/77 (105) 156/72 (100) 166/85 (112) Pulse Ox 97 98 97 98 O2 Delivery Nasal Cannula Nasal Cannula Nasal Cannula Nasal Cannula O2 Flow Rate 2.50 3.00 3.00 3.00 04/01/17 04/01/17 04/01/17 04/01/17 15:37 15:50 17:40 21:16 Temp 98.6 Pulse 68 Resp 20 B/P (MAP) 161/78 (105) 154/76 (102) Pulse Ox 95 96 O2 Delivery Nasal Cannula Nasal Cannula Room Air O2 Flow Rate 2.00 2.50 04/01/17 04/02/17 04/02/17 04/02/17 21:18 00:40 01:30 05:18 Temp 98.1 Pulse 68 60 68 Resp 20 B/P (MAP) 177/76 (109) 160/72 (101) 158/80 (106) Pulse Ox 96 O2 Delivery Nasal Cannula Nasal Cannula O2 Flow Rate 2.00 04/02/17 04/02/17 04/02/17 04/02/17 05:56 09:00 14:18 15:05 Temp 100.0 100.4 Pulse 92 Resp 22 B/P (MAP) 202/92 (128) Pulse Ox 84 O2 Delivery Nasal Cannula Nasal Cannula Room Air O2 Flow Rate 3.00 2.00 04/02/17 04/02/17 04/02/17 04/02/17 17:45 18:45 18:59 19:41 Temp 102.4 101.3 Pulse 83 Resp 21 B/P (MAP) 190/90 (123) 184/80 (114) Pulse Ox 92 O2 Delivery Nasal Cannula Nasal Cannula O2 Flow Rate 3.00 3.00 04/02/17 04/03/17 04/03/17 04/03/17 21:00 06:17 07:55 08:30 Temp 98.2 101.7 100.0 Pulse 78 Resp 18 B/P (MAP) 158/77 (104) Pulse Ox 93 O2 Delivery Nasal Cannula Nasal Cannula O2 Flow Rate 3.00 3.00 04/03/17 09:00 O2 Delivery Nasal Cannula O2 Flow Rate 3.00 Capillary Refill : General Appearance: WD/WN, mild distress (SOB, slightly confused) HEENT: PERRL/EOMI, normal ENT inspection, pharynx normal Neck: non-tender, full range of motion, supple, normal inspection Respiratory: other (decreased BS on the left, good effort) Cardiovascular: regular rate, rhythm, no edema, no gallop, no JVD, no murmur Gastrointestinal: normal bowel sounds, non tender, soft, no organomegaly, no pulsatile mass Back: normal inspection, no CVA tenderness, no vertebral tenderness Extremities: normal range of motion, non-tender, normal inspection, no pedal edema, no calf tenderness, normal capillary refill Neurologic/Psychiatric: seaman II-XII nml as tested, no motor/sensory deficits, alert, normal mood/affect, oriented x 3 Skin: normal color, warm/dry Assessment/Plan Assessment/Plan Plan PULMONARY EDEMA D/T VOLUME OVERLOAD PLEURAL EFFUSION HYPOXIA END STAGE RENAL DISEASE, ON HEMODIALYSIS DMT2 ACUTE ON CHRONIC ANEMIA, LIKELY HEMODILUTIONAL Having seen the patient, I believe he warrants transfer to a higher level of care. We cannot admit him to our local hospital d/t the fact that we cannot do inpatient dialysis. I did call , but Dr Barragan (back tender paper machine) felt that the patient was not stable for transfer and recommended he be evaluated in an ER for stabilization. As this is not allowed by his insurance, we opted to call [facility] where his manager trade marketing, Dr Arceo is located. Dr Serna kindly accepted for admission. I believe what the patient needs most acutely is dialysis, certainly prior to any blood transfusion. I am going to hold on abx as we do not have a clear source of infection and no white count to indicate an inflammatory response. In addition, I have a venous duplex pending, though he has been on anticoagulation with heparin 5000units q8h. I will defer to Dr Serna from here. Of note, the patient has been accepted to a local [facility] for further care once he has completed his inpatient course of care. I did ask the IRU nurses to hold therapy today and to notify Dr Arauz I had arranged for transfer. As Dr Pitts is the admitting, it is ultimately Dr Arauz's (covering for Dr Pitts) to allow the transfer. Clinical Quality Measures DVT/VTE Risk/Contraindication: Risk Factor Score Per Nursin RFS Level Per Nursing on Admit: 2=Moderate Copy Copies To 1: ERON KUHN MD, JULIE A MD Apr 03, 2017 10:33 am
[2017-04-03] MEDS ORDERED: ACET325T49 PO (11:28)
[2017-04-03] MEDS ORDERED: LOSA100T28 PO (11:28)
[2017-04-03] MEDS ORDERED: NICO-586 TD (11:28)
[2017-04-03] MEDS ORDERED: CARB1DRO OU (11:28)
[2017-04-03] MEDS ORDERED: CLON0.1T PO (11:28)
[2017-04-03] MEDS ORDERED: MELA3TAB PO (11:28)
[2017-04-03] MEDS ORDERED: NYST1000 PO (11:28)
[2017-04-03] MEDS ORDERED: LEVE10006 PO (11:28)
[2017-04-03] MEDS ORDERED: CALC667C10 PO ×2 (11:28)
[2017-04-03] MEDS ORDERED: ALBU2.5V4 INH (11:28)
[2017-04-03] MEDS ORDERED: QUET25TA73 PO (11:28)
[2017-04-03] MEDS ORDERED: SENN-20 PO (11:28)
[2017-04-03] MEDS ORDERED: HEPA500018 SC (11:28)
[2017-04-03 12:00] VITALS: BP 147/68
--- NOTE | 2017-04-04 10:15 | Therapy Team Discharge Summary ---
Therapy Discharge Summary Discharge Recommendations Date of Discharge Apr 03, 2017 at 12:00 Therapy D/C Recommendations: Home w/ Family Support, Snf (TCU/NH) Physical Therapy This patient was evaluated and treated on our ARU post MCA aneurysm and subsequent craniotomy. Upon admission, he required min assist with transfers, upright mobility was not attempted due to the fact that his helmet would not properly fit and with his skull partially removed, it was contraindicated to attempt ambulation due to fall risk and further brain trauma. We were eventually able to get his helmet to fit; however, his active participation waxed and waned during his course of care on this unit. He often talked his way around or out of participating in skilled intervention and at times simply would not attempt to perform. He was pleasant, but due to cognitive deficits, unable to comprehend the importance of participation and follow through of skilled cues. Pt, in general, was min assist with transfers and he was able to ambulate 150 ft with FWW with min assist (if he would participate. ) Multiple efforts and tactics used to encourage participation--co treatment, one on one treatment and different styles of encouragement; however, effective skilled therapeutic intervention was difficult. I do feel he has potential to make functional gains if his cognitive status would allow cooperation. Treatment attempts included transfers, LE strength, gait, safety and functional mobility. No goals met due to limited effective participation as well as an unexpected discharge. Recommend follow up care with skilled PT to address his mobility deficits once his is medically stable. DC PT as pt transferred out of the facility. Occupational Therapy Decreased Activ Tolerance, Decreased Safety Aware, Decreased UE Strength, Dependent Transfers, Impaired Cognition, Impaired Self-Care Skills PT Shelter Goals Shelter Goals PT Shelter Goals Time Frame: Apr 24, 2017 Transfers (B,C,W/C) (FIM): 5 Roll Left to Right (QC): 6 Sit to Lying (QC): 6 Lying-Sitting on Side/Bed(QC): 6 Sit to Stand (QC): 4 Chair/Jvv-sq-Pllvx Xfer(QC): 4 Car Transfer (QC): 4 Gait (FIM): 4 Distance: 150' Walk 10 feet (QC): 4 Walk 10ft-Uneven Surface(QC): 4 Walk 50ft with 2 Turns (QC): 4 Walk 150 ft (QC): 4 Gait Level of Assist: 4 (CGA) Gait Assistive Device: FWW Wheelchair (FIM): 5 Distance: 200' Wheelchair Level of Assist: 5 Wheel 50 feet with 2 turns (QC: 4 Stairs (FIM): 2 # of Steps: 4 1 Step (curb) (QC): 4 4 Steps (QC): 4 Stairs Level Of Assist: 4 Goals remained unmet due to transfer to acute care facility unexpectedly. OT Shelter Goals Sales Trader Goals Time Frame: Apr 24, 2017 Eating (FIM): 6 Eating (QC): 6 Oral Hygiene (QC): 5 Grooming(FIM): 5 Bathing(FIM): 5 Shower/Bathe Self (QC): 5 Upper Body Dressing(FIM): 5 Upper Body Dressing (QC): 5 Lower Body Dressing(FIM): 5 Lower Body Dressing (QC): 5 On/Off Footwear (QC): 5 Toileting(FIM): 5 Toileting Hygiene (QC): 5 Toilet/Commode Transfer(FIM): 5 Toilet/Commode Transfer (QC): 5 Shower Transfer(FIM): 5 Comprehension(FIM): 5 (NOT MET) Expression (FIM): 5 (NOT MET) Social Interaction(FIM): 5 (NOT MET) Problem Solving(FIM): 5 (NOT MET) Memory(FIM): 5 (NOT MET) Additional Goals: 2-Verbalize Understanding, 3-ImproveStrength/Maciej 1=Demonstrate adherence to instructed precautions during ADL tasks. 2=Patient will verbalize/demonstrate understanding of assistive devices/ modifications for ADL. 3=Patient will improve strength/tolerance for activity to enable patient to perform ADL's. Speech Sales Trader Goals Sales Trader Goals 1. The patient will tolerate the least restrictive diet without signs/symptoms of aspiration or laryngeal penetration. 2. The patient will display improved attention span for increased safety in the least restriction environment. Time Frame: Two Weeks Comprehension: 5 (NOT MET) Expression: 5 (NOT MET) Social Interaction: 5 (NOT MET) Problem Solvin (NOT MET) Memory: 5 (NOT MET) RUI WHITMORE PT Apr 04, 2017 10:15
== END 2017-04-03 12:00 | disposition short-term general hospital (02) | DRG 56 ==
PROVIDERS: ADMIT Physical Medicine & Rehabilitation; ATTEND Physical Medicine & Rehabilitation
DX: I69.391 Dysphagia following cerebral infarction (principal); I12.0 Hypertensive chronic kidney disease with stage 5 chronic kidney disease or end stage renal disease; N18.6 End stage renal disease; Z99.2 Dependence on renal dialysis; E11.9 Type 2 diabetes mellitus without complications; J81.1 Chronic pulmonary edema; J90 Pleural effusion, not elsewhere classified; E87.70 Fluid overload, unspecified; E83.39 Other disorders of phosphorus metabolism; M95.2 Other acquired deformity of head; D64.9 Anemia, unspecified; Z87.891 Personal history of nicotine dependence
CPT/HCPCS: 36415; 71020; 80048; 82962; 83880; 85007; 85027; 87040; 87070; 87205; 87804; 94640; 94664; 94760

== ENCOUNTER 2017-05-07 16:13 | Emergency (ER) | payer MEDICARE, MEDICAID ==
[~2017-05-07] VITALS: Ht 175.3 cm; Wt 113.4 kg
[~2017-05-07 16:13] MED LIST changes: +ACET325T49 PO; +ALBU18HF2 INH; +ALBU2.5V4 INH; +AMLO10TA2 PO; +ATOR10TA66 PO; +BACL10TA PO; +CALC667C10 PO; +CARB1DRO OU; +CLON0.1T PO; +DOXA8TAB73 PO; +FERR210T PO; +FURO40TA4 PO; +HEPA500018 SC; +HYDR-34 PO; +LEVE10006 PO; +LOSA100T28 PO; +LOSA1TAB23 PO; +MELA3TAB PO; -METO200T4 PO; +METO200T48 PO; +NICO-586 TD; +NYST1000 PO; +QUET25TA73 PO; +SENN-20 PO
--- OUTSIDE RECORDS SUMMARY | 2017-05-07 16:20 | XMS REPORT | Continuity of Care Document ---
Author Author [employer] Organization [employer] Address Unknown Phone Unavailable Care Team Providers Care Automobile Salesman Name Role Phone [employer] Unavailable Unavailable Problems Medications Allergies, Adverse Reactions, Alerts Immunizations Results Vital Signs Encounters Location Location Details Encounter Type Encounter Number Reason For Visit Attending Provider ADM Date DC Date Status Source INPATIENT 03/09/2017 03/09/2017 Active [facility] INPATIENT [id number] LIDIA SALAZAR 03/09/20172016 Active [facility] INPATIENT [id number] JOCE CHEN 04/03/20172017 Active [facility] OUTPATIENT [id number] 05/01/2017 Active [facility] O [id number] LIDIA SALAZAR Active [facility] Procedures Plan of Care Social History Assessment and Plan Family History Advance Directives Functional Status
--- OUTSIDE RECORDS SUMMARY | 2017-05-07 16:21 | XMS REPORT | Clinical Summary ---
Author Author [facility] Organization [facility] Address Unknown Phone Unavailable Care Team Providers [facility] Assistant Name Role Phone No Pcp, Na PCP Unavailable Source Comments Some departments are not documenting in the electronic medical record. If you do not see the information that you expected, contact Release of Information in the Health Information Management department at [phone] for further assistance in locating additional records.[facility] Allergies No Known Allergies Current Medications [...] tablet every 4 hours as needed. 17 QUEtiapine (SEROQUEL) 50 Take 1 tablet by mouth 03/26/20 Active mg tablet twice daily. 17 senna/docusate Take 10 mL by mouth twice 03/26/20 Active (SENOKOT-S) 8.8/50 mg /10 daily. 17 mL solution melatonin 3 mg tab Take 1 tablet by mouth at 03/26/20 Active bedtime daily. 17 carboxymethylcellulose Apply 1 drop to both eyes Active (REFRESH PLUS) 0.5 % dpet daily as needed. Levetiracetam 1,000 mg Take 1,500 mg by mouth at Active tab bedtime daily. losartan(+) (COZAAR) 100 Take 100 mg by mouth Active mg tablet daily. metoprolol XL (TOPROL XL) Take 1 tablet by mouth 04/10/19 Active 100 mg extended release twice daily. 18 tablet hydrALAZINE (APRESOLINE) Take 1 tablet by mouth 90 tablet 0 04/11/19 05/11/19 Active 50 mg tablet three times daily for 30 18 18 days. cloNIDine (CATAPRESS) 0.2 Take 1 tablet by mouth 180 tablet 3 Active mg tablet three times daily. 18 furosemide (LASIX) 20 mg Take 4 tablets by mouth 240 tablet 0 05/12/19 Active tablet twice daily for 30 days. 18 18 isosorbide mononitrate SR Take 1 tablet by mouth at 90 tablet 3 Active (IMDUR) 60 mg tablet bedtime daily. 18 nystatin (MYCOSTATIN) Take 5 mL by mouth four 0 03/26/20 04/10/19 Discontin 100,000 units/mL oral times daily. 17 18 ued suspension heparin (porcine) PF Inject 0.5 mL under the 03/26/20 04/10/19 Discontin 5,000units/0.5mL skin every 8 hours. 17 18 ued injection syringe cloNIDine (CATAPRESS) 0.1 Take 0.1 mg by mouth 04/10/19 Discontin mg tablet every 6 hours as needed. 18 ued HEPARIN SODIUM,PORCINE Administer 5,000 Units 03/26/20 04/10/19 Discontin (HEPARIN (PORCINE)) 5,000 through vein every 8 17 18 ued unit/mL injection hours. metoprolol XL (TOPROL XL) Take 200 mg by mouth 04/10/19 Discontin 200 mg extended release twice daily. 18 ued tablet furosemide (LASIX) 20 mg Take 3 tablets by mouth 180 tablet 0 04/12/19 Discontin tablet twice daily for 30 days. 18 18 ued cloNIDine (CATAPRESS) 0.1 Take 1 tablet by mouth 180 tablet 3 04/12/19 Discontin mg tablet three times daily. 18 18 ued Active Problems Problem Noted Date Brain aneurysm 05/01/2017 Overview: Added automatically from request for surgery [id number] TBI (traumatic brain injury) (HCC) 04/05/2017 Chronic hypoxemic respiratory failure (HCC) 04/04/2017 Vascular dementia without behavioral disturbance 04/04/2017 ESRD (end stage renal disease) on dialysis ([facility]) 04/04/2017 Acute blood loss as cause of postoperative anemia 04/04/2017 Normocytic anemia 04/04/2017 Renovascular hypertension 04/04/2017 Influenza B 04/04/2017 Rhinovirus infection 04/04/2017 COPD with hypoxia ([facility]) 04/04/2017 Oropharyngeal dysphagia 04/04/2017 Pancytopenia (HCC) 04/04/2017 Troponin level elevated 04/04/2017 Pneumonia 04/03/2017 IVH (intraventricular hemorrhage) ([facility]) 03/09/2017 Intraparenchymal hematoma of brain ([facility]) 03/09/2017 Subarachnoid bleed ([facility]) 03/09/2017 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[facility]) 03/09/2017 Overview: Added automatically from request for surgery [id number] Acquired skull defect 03/09/2017 Overview: Added automatically from request for surgery [id number] Encounters Date Type Specialty Care Team Description 05/03/2017 Telephone Neurosurgery Edgar Bee MD Surgery (Pt hypertensive, request for improved control prior to sugeryy.) 05/02/2017 Documentation Edgar Mayo MD 05/01/2017 PAC Office Anesthesiology Edgar Bee MD Cerebral aneurysm rupture Visit ([facility]) (Primary Dx) 05/01/2017 Office Visit Edgar Mayo MD Arrived 05/01/2017 Anesthesia Anesthesiology Amaya Sultana APRN-MILITARY TECHNICIAN Event 05/01/2017 Prep for Case Edgar Bee MD 05/01/2017 Prep for Case Edgar Bee MD 04/11/2017 Pharmacy Visit 04/03/2017 [facility] Aram Chiu MD Pneumonia - Encounter Jason Oliveira MD 04/12/2017 Mikey La MD Barbaryan, Aram, MD 04/03/2017 Procedure Pass 04/03/2017 Procedure Pass 04/03/2017 Procedure Pass 03/28/2017 Telephone Edgar Mayo MD Follow-up Phone Call 03/24/2017 Anesthesia Tania Britt CRNA Event 03/22/2017 [...] craniotomy for clipping of MCA aneurysm 03/09/2017 Hospital Melissa Del Valle MD Ruptured cerebral - Encounter Edgar Bee MD aneurysm (HCC) 03/26/2017 03/09/2017 Hospital Radiology Encounter 03/09/2017 Anesthesia [...] Years Used Date Current Every Day Smoker Cigarettes 1 30 Smokeless Tobacco: Never Used Alcohol Use Drinks/Week oz/Week Comments No quit 9 years ago Sex Assigned at Date Recorded Not on file Last Filed Vital Signs Vital Sign Reading Time Taken Blood Pressure 180/98 05/01/2017 1:39 PM [facility] [facility] [employer] Pulse 66 05/01/2017 1:39 PM [employer] Temperature 36.8 C (98.2 F) 05/01/2017 1:39 PM [employer] Respiratory Rate - - Oxygen Saturation 95% 05/01/2017 1:39 PM [employer] Inhaled Oxygen - - Concentration Weight 99.8 kg (220 lb) 05/01/2017 1:39 PM [employer] Height 175.3 cm (5' 9") 05/01/2017 1:39 PM [employer] Body Mass Index 32.49 05/01/2017 1:39 PM [employer] Plan of Treatment Date Type Specialty Care Team Description 05/03/2017 Anesthesia Hannah Acevedo DO Event [address] [place] [address] [phone] 05/17/2017 Surgery Edgar Bee MD CRANIOPLASTY FOR RIGHT [address] [place], [place] [address] [place] [address] FROM RIGHT ABDOMEN [phone] 05/17/2017 Procedure Pass 05/17/2017 Hospital Edgar Bee MD Brain aneurysm Encounter [address] [place] [address] [phone] Health Maintenance Due Date Last Done Comments PHYSICAL (COMPREHENSIVE) 08/21/1974 EXAM PERTUSSIS VACCINE 08/21/1978 TETANUS VACCINE 08/21/1984 INFLUENZA VACCINE 11/06/2016 Implants Implanted Type Area Music Video Producer Device Expiration Model / Identifier Date Serial / Lot Patch Dural 2x2in Lyoplant Cranial AESCULAP NEURO 01/05/2022 106 7020 / Bovine Pericardium Onlay - [id number] DIVISION [id number] / Implanted: Qty: 1 on 03/10/2017 by [id number] Edgar Bee MD Clip Aneurysm 21mm D-Zqzwjhch-Qhhh UNIDENTIFIED 45.858 / 1.77n 13.5mm Open - [id number] [facility] [place] [id number] / Implanted: Qty: 1 on 03/10/2017 by [id number] Edgar Bee MD Clip Aneurysm 3mm 3.5mm UNIDENTIFIED 45.597 / Q-Sqesgwfq-Vyth 1.47n 7.7mm Open - [facility] [place] [id number] / [id number] Implanted: Qty: 1 on 03/10/2017 by dEgar Bee MD L-Aneurysm Clip Ti Perm - [id number] UNIDENTIFIED 45.902 / Implanted: Qty: 1 on 03/10/2017 by [facility] [place] [id number] / [place] [id number] Mesh Cranial .6mm Large Temporal UNIDENTIFIED 25-006-51- Titanium Latex Free - [id number] [facility] 09 / Implanted: Qty: 1 on 03/10/2017 by [id number] Edgar Bee MD / [id number] Cover [place] Hole L17mm Od3mm - RIKI JOHNSON [facility] [id number]- [id number] IMPLANTS 09 / Implanted: Qty: 1 on 03/10/2017 by [id number] Edgar Bee MD / [id number] Plate Bone 1.5mm Long Straight RIKI JOHNSON [facility] 25-302-13- Cranial Titanium 2 Hole Low - IMPLANTS 09 / [id number] Implanted: Qty: 1 on 03/10/2017 by / Edgar Bee MD [id number] Substitute Tissue 5x4in Lyoplant AESCULAP NEURO 106 7050 / Dura [place] Absorbable - [id number] DIVISION [id number] / Implanted: Qty: 1 on 03/10/2017 by [id number] Edgar Bee MD Screw Neuro 1.5x4mm Drill Free - Right: RIKI JOHNSON [facility] 25-975-04- Sna Skull IMPLANTS 91 / Implanted: Qty: 10 on 03/10/2017 by NA / Edgar Bee MD NA Procedures Procedure Name Priority Date/Time Associated Diagnosis Comments ECG-SCAN 05/03/2017 Results for this 7:15 AM [employer] procedure are in the results section. PROCEDURE RECORD-SCAN 05/01/2017 Results for this 2:55 PM [employer] procedure are in the results section. PROCEDURE RECORD-SCAN 05/01/2017 Results for this 2:55 PM [employer] procedure are in the results section. PROCEDURE RECORD-SCAN 05/01/2017 Results for this 2:55 PM [employer] procedure are in the results section. PROCEDURE RECORD-SCAN 05/01/2017 Results for this 2:55 PM [employer] procedure are in the results section. PROCEDURE RECORD-SCAN 05/01/2017 Results for this 2:55 PM [employer] procedure are in the results section. PROCEDURE RECORD-SCAN 05/01/2017 Results for this 2:55 PM [employer] procedure are in the results section. TELEMETRY STRIPS-SCAN 04/17/2017 Results for this 10:38 AM [employer] procedure are in the results section. ECG-SCAN 04/13/2017 Results for this 4:10 PM [employer] procedure are in the results section. CONSULT IV THERAPY TEAM Routine 04/06/2017 2:38 PM [employer] ECG-SCAN 04/05/2017 Results for this 6:20 PM [employer] procedure are in the results section. TELEMETRY STRIPS-SCAN 04/03/2017 Results for this 1:24 PM [employer] procedure are in the results section. ECG-SCAN 04/03/2017 Results for this 1:19 PM [employer] procedure are in the results section. ECG-SCAN 04/03/2017 Results for this 9:50 AM [employer] procedure are in the results section. ECG-SCAN 04/03/2017 Results for this 9:50 AM [employer] procedure are in the results section. CONSULT IV THERAPY TEAM Routine 03/19/2017 9:43 AM [employer] ECG-SCAN 03/12/2017 Results for this 10:05 AM [employer] procedure are in the results section. ECG-SCAN 03/12/2017 Results for this 10:05 AM [employer] procedure are in the results section. ECG-SCAN 03/12/2017 Results for this 10:05 AM [employer] procedure are in the results section. ECG-SCAN 03/12/2017 Results for this 10:05 AM [employer] procedure are in the results section. REPAIR ANEURYSM 03/10/2017 Brain aneurysm CRANIOTOMY 8:15 PM [employer] Rt pterional craniotomy 03/10/2017 Ruptured cerebral for clipping of MCA 8:00 AM [employer] aneurysm (HCC) aneurysm from Last 3 Months Results * ECG-SCAN (05/03/2017 7:15 AM) Narrative Ordered by an unspecified provider. * PROCEDURE RECORD-SCAN (05/01/2017 2:55 PM) Narrative Ordered by an unspecified provider. * PROCEDURE RECORD-SCAN (05/01/2017 2:55 PM) Narrative Ordered by an unspecified provider. * PROCEDURE RECORD-SCAN (05/01/2017 2:55 PM) Narrative Ordered by an unspecified provider. * PROCEDURE RECORD-SCAN (05/01/2017 2:55 PM) Narrative Ordered by an unspecified provider. * PROCEDURE RECORD-SCAN (05/01/2017 2:55 PM) Narrative Ordered by an unspecified provider. * PROCEDURE RECORD-SCAN (05/01/2017 2:55 PM) Narrative Ordered by an unspecified provider. * CBC (05/01/2017 2:35 PM) Only the most recent of 4 results within the time period is included. Component Value Ref Range White Blood Cells 4.0 (L) 4.5 - 11.0 K/UL RBC 2.58 (L) 4.4 - 5.5 M/UL Hemoglobin 7.9 (L) 13.5 - 16.5 GM/DL Hematocrit 23.8 (L) 40 - 50 % MCV 92.0 80 - 100 FL MCH 30.6 26 - 34 PG MCHC 33.2 32.0 - 36.0 G/DL RDW 17.4 (H) 11 - 15 % Platelet Count 127 (L) 150 - 400 K/UL MPV 9.3 7 - 11 FL Specimen Performing Laboratory Blood [facility] [address] [place] [address] * TYPE & SCREEN (NOT CROSSMATCH ELIGIBLE) (05/01/2017 2:35 PM) Component Value Ref Range ABO/RH(D) A POS Antibody Screen NEG Blood Component Type RED CELL GROUP Specimen Performing Laboratory Blood, venous - Blood MAIN LAB [address] [place] [address] * BASIC METABOLIC PANEL (05/01/2017 2:35 PM) Only the most recent of 19 results within the time period is included. Component Value Ref Range Sodium 138 137 - 147 MMOL/L Potassium 4.0 3.5 - 5.1 MMOL/L Chloride 99 98 - 110 MMOL/L CO2 27 21 - 30 MMOL/L Anion Gap 12 3 - 12 Glucose 140 (H) 70 - 100 MG/DL Blood Urea Nitrogen 59 (H) 7 - 25 MG/DL Creatinine 8.65 (H) 0.4 - 1.24 MG/DL Calcium 9.2 8.5 - 10.6 MG/DL eGFR Non 7 [...] Specimen Performing Laboratory Blood MAIN LAB [address] [place] [address] * TELEMETRY STRIPS-SCAN (04/17/2017 10:38 AM) Narrative Ordered by an unspecified provider. * ECG-SCAN (04/13/2017 4:10 PM) Narrative Ordered by an unspecified provider. * CBC AND DIFF (04/12/2017 8:03 AM) Only the most recent of 26 results within the time period is included. Component Value Ref Range White Blood Cells 4.8 4.5 - 11.0 K/UL RBC 2.56 (L) 4.4 - 5.5 M/UL Hemoglobin 7.7 (L) 13.5 - 16.5 GM/DL Hematocrit 23.1 (L) 40 - 50 % MCV 90.3 80 - 100 FL MCH 30.0 26 - 34 PG MCHC 33.3 32.0 - 36.0 G/DL RDW 15.2 (H) 11 - 15 % Platelet Count 193 150 - 400 K/UL MPV 8.3 7 - 11 FL Neutrophils 80 (H) 41 - 77 % Lymphocytes 6 (L) 24 - 44 % Monocytes 12 4 - 12 % Eosinophils 2 0 - 5 % Basophils 0 0 - 2 % Absolute Neutrophil Count 3.80 1.8 - 7.0 K/UL Absolute Lymph Count 0.30 (L) 1.0 - 4.8 K/UL Absolute Monocyte Count 0.60 0 - 0.80 K/UL Absolute Eosinophil Count 0.10 0 - 0.45 K/UL Absolute Basophil Count 0.00 0 - 0.20 K/UL Specimen Performing Laboratory MAIN LAB [address] [place] [address] * PHOSPHORUS (04/12/2017 8:03 AM) Only the most recent of 26 results within the time period is included. Component Value Ref Range Phosphorus 3.6 2.0 - 4.0 MG/DL Specimen Performing Laboratory MAIN LAB [address] [place], [place] [id number] * MAGNESIUM (04/12/2017 8:03 AM) Only the most recent of 24 results within the time period is included. Component Value Ref Range Magnesium 1.9 1.6 - 2.6 mg/dL Specimen Performing Laboratory MAIN LAB [address] [place] [address] * COMPREHENSIVE METABOLIC PANEL (04/12/2017 8:03 AM) Only the most recent of 10 results within the time period is included. Component Value Ref Range Sodium 132 (L) 137 - 147 MMOL/L Potassium 4.8 3.5 - 5.1 MMOL/L Chloride 96 (L) 98 - 110 MMOL/L Glucose 111 (H) 70 - 100 MG/DL Blood Urea Nitrogen 46 (H) 7 - 25 MG/DL Creatinine 9.55 (H) 0.4 - 1.24 MG/DL Calcium 9.6 8.5 - 10.6 MG/DL Total Protein 7.3 6.0 - 8.0 G/DL Total Bilirubin 0.7 0.3 - 1.2 MG/DL Albumin 3.9 3.5 - 5.0 G/DL Alk Phosphatase 85 25 - 110 U/L AST (SGOT) 14 7 - 40 U/L CO2 26 21 - 30 MMOL/L ALT (SGPT) 7 7 - 56 U/L Anion Gap 10 3 - 12 eGFR Non 6 (L) >60 mL/min Comment: [...] Clinical Pharmacist for questions. Specimen Performing Laboratory [facility] [address] [place] [address] * CHEST 2 VIEWS (04/11/2017 4:28 PM) Specimen Performing Laboratory [facility] RAD RESULTS Impressions 1.Persistent moderate cardiomegaly with improved pulmonary venous congestion. 2.Patchy left basilar opacities concerning for pneumonia. 3.Mild decrease in size of left pleural effusion and adjacent consolidation , likely atelectasis. Approved by Terrence Jaime D.O. on 04/12/2017 9:23 AM By my electronic signature, I attest that I have personally reviewed the images for this examination and formulated the interpretations and opinions expressed in this report Finalized by Wilner Koo M.D. on 04/12/2017 10:20 AM. Dictated by Terrence Jaime D.O. on 04/12/2017 8:19 AM. Narrative CHEST 2 VIEWS Clinical Indication: Male, 51 years old. Hypoxia. Comparison: Radiograph 03/16/2017, CT 04/03/2017 Findings: PA and lateral chest radiograph obtained. Enteric tube has been removed. The cardiac silhouette remains moderately enlarged with improvement in pulmonary vascular congestion. Mild decrease in size of left pleural effusion and adjacent consolidation. Patchy left basilar opacities. No pneumothorax. Procedure Note Interface, Radiant Results - 04/12/2017 10:23 AM [employer] CHEST 2 VIEWS Clinical Indication: Male, 51 years old. Hypoxia. Comparison: Radiograph 03/16/2017, CT 04/03/2017 Findings: PA and lateral chest radiograph obtained. Enteric tube has been removed. The cardiac silhouette remains moderately enlarged with improvement in pulmonary vascular congestion. Mild decrease in size of left pleural effusion and adjacent consolidation. Patchy left basilar opacities. No pneumothorax. IMPRESSION 1. Persistent moderate cardiomegaly with improved pulmonary venous congestion. 2. Patchy left basilar opacities concerning for pneumonia. 3. Mild decrease in size of left pleural effusion and adjacent consolidation, likely atelectasis. Approved by Terrence Jaime D.O. on 04/12/2017 9:23 AM By my electronic signature, I attest that I have personally reviewed the images for this examination and formulated the interpretations and opinions expressed in this report Finalized by Wilner Koo M.D. on 04/12/2017 10:20 AM. Dictated by Terrence Jaime D.O. on 04/12/2017 8:19 AM. * BNP (B-TYPE NATRIURETIC PEPTI) (04/11/2017 3:13 PM) Only the most recent of 2 results within the time period is included. Component Value Ref Range B Type Natriuretic 2,453.0 (H) 0 - 100 PG/ML Peptide Specimen Performing Laboratory Blood MAIN LAB [address] [place] [address] * HEMODIALYSIS DATE (04/11/2017 11:05 AM) Only the most recent of 12 results within the time period is included. Narrative Tara Jaime RN 04/11/2017 11:05 AM Pt tolerated tx okay, was insistant on coming off tx early so got him to complete all but 15min of his tx. 2.7L cleared.Report given to floor RN * HEMODIALYSIS INPATIENT (04/11/2017 11:05 AM) Only the most recent of 12 results within the time period is included. Narrative Tara Jaime RN 04/11/2017 11:05 AM Pt tolerated tx okay, was insistant on coming off tx early so got him to complete all but 15min of his tx. 2.7L cleared.Report given to floor RN * TROPONIN-I (04/10/2017 3:00 PM) Only the most recent of 9 results within the time period is included. Component Value Ref Range Troponin-I 0.05 0.0 - 0.05 NG/ML Specimen Performing Laboratory Blood MAIN LAB [address] [place] [address] * 2-D + DOPPLER ECHOCARDIOGRAM (04/10/2017 2:24 PM) Only the most recent of 3 results within the time period is included. Component Value Ref Range IVS 1.57 0.6 - 1.0 cm LVIDD 5.37 4.2 - 5.9 cm LVIDS 3.57 cm PW 1.55 0.6 - 1.0 cm TDI e' 0.07 m/s Right Ventricular Long 9.11 5.9 - 8.3 cm Diameter Right Ventricular Mid 2.92 1.9 - 3.5 cm Diameter LA size 5.39 3.0 - 4.0 cm LA volume 116.96 18 - 58 mL Right Atrial Area 26.37 <=18 cm2 Right Atrial Major 6.07 <=5.3 cm Dimension and a peak gradient of 10.26 mmHg AV peak velocity 1.60 m/s MV Peak A Abdelrahman 0.75 m/s MV Peak E Abdelrahman PW 1.49 m/s Right Ventricular Basal 4.96 2.5 - 4.1 cm Diameter Sinus 3.92 2.1 - 3.5 cm BSA 2.27 m2 FS 33.52 28 - 44 % EF 56.98 % Left Atrium Index 51.52 10 - 32 E/A ratio 1.99 E/E' ratio 21.29 Referring Provider Unknown PCP TV rest pulmonary artery 55 mmHg pressure ECHO EF 55 % Specimen Performing Laboratory OTHER OUTSIDE LAB Narrative Rest Echo: 1. Normal left ventricular systolic function. EF~ 55% 2. Severe concentric left ventricular hypertrophy. 3. Severe left atrial enlargement. Elevated left atrial pressure 4. Sclerotic aortic valve. No significant stenosis or regurgitation 5. Mildly dilated sinuses of valsalva (3.9 cm) 6. Moderately elevated estimated peak systolic PA pressure of 55 mmHg Compared to previous study on 04/04/2017, there is trace pericardial effusion. LV systolic function and PA systolic pressures are similar * POTASSIUM (04/08/2017 6:20 PM) Component Value Ref Range Potassium 5.2 (H) 3.5 - 5.1 MMOL/L Specimen Performing Laboratory [facility] [address] [place] [address] * ECG-SCAN (04/05/2017 6:20 PM) Narrative Ordered by an unspecified provider. * SEROTONIN RELEASE ASSAY (04/05/2017 3:56 PM) Component Value Ref Range Unfractionated Heparin 0 % Low Dose Unfractionated Heparin 0 % High Dose Unfractionated Heparin Negative Result A positive result requires release of serotonin from target platelets in the presence of patient serum and low dose (0.1 U/ml) heparin of >20%, together with inhibition of release (<20%) with high dose (100 U/ml) heparin. Results obtained with this patient's serum were negative. These results argue against, but do not completely rule out a diagnosis of Heparin-Induced Thrombocytopenia (HIT). If not already performed repeat testing of a fresh serum sample collected 24-48 hours after collection of the current sample should be considered. ADDITIONAL INFORMATION This test was developed and its performance characteristics validated by [facility]. It has not been cleared or approved by the FDA. However, the FDA has determined that such clearance or approval is not necessary. The results are not intended to be used as the sole means for clinical diagnosis or patient management decisions but should not be regarded as investigational or for research. Our laboratory is certified under the Clinical Laboratory Improvement Amendments (CLIA) as qualified to perform high complexity clinical laboratory testing. Test Performed by: [facility] [address] [place] [id number] Specimen Performing Laboratory Blood REFERENCE LAB * TRANSFUSE APHERESIS PLATELETS (04/04/2017 4:39 PM) Only the most recent of 2 results within the time period is included. * OCCULT BLOOD NON COLON CANCER SCREEN (04/04/2017 3:43 PM) Component Value Ref Range Battery Name OCCULT BLOOD SCREEN Specimen Description FECES Special Requests NONE Occult Blood NEGATIVE Report Status FINAL 04/04/2017 Specimen Performing Laboratory Stool - Feces [facility] [address] [place] [address] * RETICULOCYTE COUNT (04/04/2017 7:46 AM) Component Value Ref Range Retic, Uncorrected 1.4 0.5 - 2.0 % Retic, Corrected 0.6 % Retic, Absolute 32.5 30 - 94 K/UL Specimen Performing Laboratory MAIN LAB [address] [place] [address] * TRANSFUSE RBC'S NON-BLEEDING PT (04/04/2017 7:40 AM) Only the most recent of 4 results within the time period is included. Specimen Performing Laboratory Blood * LDH-LACTATE DEHYDROGENASE (04/04/2017 6:38 AM) Only the most recent of 2 results within the time period is included. Component Value Ref Range Lactate Dehydrogenase 239 (H) 100 - 210 U/L Specimen Performing Laboratory MAIN LAB [address] [place] [address] * BLOOD BANK SAMPLE HOLD (04/04/2017 3:30 AM) Component Value Ref Range BB Sample hold IN LAB Specimen Performing Laboratory MAIN LAB [address] [place] [address] * HEPARIN INDUCED PLT AB (HIT) (04/04/2017 3:30 AM) Component Value Ref Range Heparin Induced Plt AB POS (A)Comment: TEST PERFORMED BY [facility]- NEGATIVE [facility] Heparin AB OD 0.976 (H) 0.000 - 0.499 Specimen Performing Laboratory Blood MAIN LAB [address] [place] [address] * BLOOD GASES, PERIPHERAL VENOUS (04/04/2017 3:30 AM) Component Value Ref Range pH-Venous 7.38 7.30 - 7.40 PCO2-Venous 49 36 - 50 MMHG PO2-Venous 129 (H) 33 - 48 MMHG Base Excess-Venous 3.3 MMOL/L O2 Sat-Venous 99.3 (H) 55 - 71 % Gstuxpfjzqr-MLC-Hnn 27.4 MMOL/L Specimen Performing Laboratory Blood, venous - Blood MAIN LAB [address] [place] [address] * PREPARE APHERESIS PLATELETS (04/04/2017 2:47 AM) Component Value Ref Range Units Ordered 1 Unit Number [id number] Blood Component Type APHERESIS PLT,LEUKO REDUCED,2ND CONT. Unit Division 0 Status OF Unit TRANSFUSED Transfusion Status OK TO TRANSFUSE Specimen Performing Laboratory Other (Specify) MAIN LAB [address] [place] [address] * UA REFLEX CULTURE LABEL (04/04/2017 1:20 AM) Component Value Ref Range UA Reflex Culture LAB LABEL Specimen Performing Laboratory Urine MAIN LAB [address] [place], [place] [id number] * URINALYSIS MICROSCOPIC REFLEX TO CULTURE (04/04/2017 1:20 AM) Component Value Ref Range WBCs,UA 0-2 0 - 2 /HPF RBCs,UA 0-2 0 - 3 /HPF Comment,UA Urine submitted for reflex culture if criteria are met:WBC>10, positive nitrite and/or >=1+ leukocyte esterase. If quantity is not sufficient, an addendum will follow. Specimen Performing Laboratory Urine MAIN LAB [address] [place] [address] * URINALYSIS DIPSTICK REFLEX TO CULTURE (04/04/2017 1:20 AM) Component Value Ref Range Color,UA STRAW Turbidity,UA CLEAR CLEAR-CLEAR Specific Jefferson-Urine 1.006 1.003 - 1.035 pH,UA 8.0 5.0 - 8.0 Protein,UA 2+ (A) NEG-NEG Glucose,UA 1+ (A) NEG-NEG Ketones,UA NEG NEG-NEG Bilirubin,UA NEG NEG-NEG Blood,UA 1+ (A) NEG-NEG Urobilinogen,UA NORMAL NORM-NORMAL Nitrite,UA NEG NEG-NEG Leukocytes,UA NEG NEG-NEG Urine Ascorbic Acid, UA NEG NEG-NEG Specimen Performing Laboratory Urine MAIN LAB [address] [place] [address] * STREPTOCOCCUS PNEUMO AG, URINE (04/04/2017 1:20 AM) Component Value Ref Range Battery Name STREP PNEUMO AG, UR Specimen Description URINE Special Requests NONE Antigen NEGATIVE Report Status FINAL 04/04/2017 Specimen Performing Laboratory Urine MAIN LAB [address] [place] [address] * PHENCYCLIDINES-URINE RANDOM (04/04/2017 1:20 AM) Only the most recent of 2 results within the time period is included. Component Value Ref Range Phencyclidine (PCP) NEG NEG-NEG Comment: RESULTS WERE OBTAINED BY IMMUNOASSAY AND ARE PRESUMPTIVE ONLY. POSITIVE INDICATES THE PRESENCE OF SUBSTANCE WITH CHARACTERISTICS SIMILAR TO DRUG-DRUG CLASS OR METABOLITE IN CONC. EQUAL TO OR EXCEEDING VALUES LISTED. PHENCYCLIDINE (PCP) 25 NG/ML Specimen Performing Laboratory Urine MAIN LAB [address] [place] [address] * OPIATES-URINE RANDOM (04/04/2017 1:20 AM) Only the most recent of 2 results within the time period is included. Component Value Ref Range Opiates-Urine NEG NEG-NEG Comment: RESULTS WERE OBTAINED BY IMMUNOASSAY AND ARE PRESUMPTIVE ONLY. POSITIVE INDICATES THE PRESENCE OF SUBSTANCE WITH CHARACTERISTICS SIMILAR TO DRUG-DRUG CLASS OR METABOLITE IN CONC. EQUAL TO OR EXCEEDING VALUES LISTED. OPIATES 200 0 NG/ML Specimen Performing Laboratory Urine MAIN LAB [address] [place] [address] * LEGIONELLA ANTIGEN URINE,RAN (04/04/2017 1:20 AM) Component Value Ref Range Battery Name LEGIONELLA URINE ANTIGEN Specimen Description URINE Special Requests NONE Antigen NEGATIVE Report Status FINAL 04/04/2017 Specimen Performing Laboratory Urine [facility] [address] [place] [address] * COCAINE-URINE RANDOM (04/04/2017 1:20 AM) Only the most recent of 2 results within the time period is included. Component Value Ref Range Cocaine-Urine NEG NEG-NEG Comment: RESULTS WERE OBTAINED BY IMMUNOASSAY AND ARE PRESUMPTIVE ONLY. POSITIVE INDICATES THE PRESENCE OF SUBSTANCE WITH CHARACTERISTICS SIMILAR TO DRUG-DRUG CLASS OR METABOLITE IN CONC. EQUAL TO OR EXCEEDING VALUES LISTED. COCAINE 300 NG/ML Specimen Performing Laboratory Urine [facility] [address] [place] [address] * CANNABINOIDS-URINE RANDOM (04/04/2017 1:20 AM) Only the most recent of 2 results within the time period is included. Component Value Ref Range THC NEG NEG-NEG Comment: RESULTS WERE OBTAINED BY IMMUNOASSAY AND ARE PRESUMPTIVE ONLY. POSITIVE INDICATES THE PRESENCE OF SUBSTANCE WITH CHARACTERISTICS SIMILAR TO DRUG-DRUG CLASS OR METABOLITE IN CONC. EQUAL TO OR EXCEEDING VALUES LISTED. CANNABINOIDS 50 NG/ML Specimen Performing Laboratory Urine [address] [address] * BENZODIAZEPINES-URINE RANDOM (04/04/2017 1:20 AM) Only the most recent of 2 results within the time period is included. Component Value Ref Range Benzodiazepines NEG NEG-NEG Comment: RESULTS WERE OBTAINED BY IMMUNOASSAY AND ARE PRESUMPTIVE ONLY. POSITIVE INDICATES THE PRESENCE OF SUBSTANCE WITH CHARACTERISTICS SIMILAR TO DRUG-DRUG CLASS OR METABOLITE IN CONC. EQUAL TO OR EXCEEDING VALUES LISTED. BENZODIAZEPINES 200 NG/ML Specimen Performing Laboratory Urine [facility] [address] [place] [address] * BARBITURATES-URINE RANDOM (04/04/2017 1:20 AM) Only the most recent of 2 results within the time period is included. Component Value Ref Range Barbiturates,Urine NEG NEG-NEG Comment: RESULTS WERE OBTAINED BY IMMUNOASSAY AND ARE PRESUMPTIVE ONLY. POSITIVE INDICATES THE PRESENCE OF SUBSTANCE WITH CHARACTERISTICS SIMILAR TO DRUG-DRUG CLASS OR METABOLITE IN CONC. EQUAL TO OR EXCEEDING VALUES LISTED. BARBITURATES 200 NG/ML Specimen Performing Laboratory Urine [facility] [address] [place] [address] * AMPHETAMINES-URINE RANDOM (04/04/2017 1:20 AM) Only the most recent of 2 results within the time period is included. Component Value Ref Range Amphetamines NEG NEG-NEG Comment: RESULTS WERE OBTAINED BY IMMUNOASSAY AND ARE PRESUMPTIVE ONLY. POSITIVE INDICATES THE PRESENCE OF SUBSTANCE WITH CHARACTERISTICS SIMILAR TO DRUG-DRUG CLASS OR METABOLITE IN CONC. EQUAL TO OR EXCEEDING VALUES LISTED. AMPHETAMINES 1000 NG/ML Specimen Performing Laboratory Urine MAIN LAB [address] [place] [address] * RVP VIRAL PANEL PCR (04/04/2017 1:01 AM) Component Value Ref Range Specimen Source NASAL WASH Adenovirus NOT DETECTED Coronavirus 229E NOT DETECTED Coronavirus HKU1 NOT DETECTED Coronavirus NL63 NOT DETECTED Coronavirus OC43 NOT DETECTED Human Metapneumovirus NOT DETECTED Human DETECTED Rhinovirus/ENTEROVIRUS Influenza A H1N1 2009 NOT DETECTED Influenza A H1 NOT DETECTED Influenza A H3 NOT DETECTED Influenza B DETECTED Parainfluenza 1 NOT DETECTED Parainfluenza 2 NOT DETECTED Parainfluenza 3 NOT DETECTED Parainfluenza 4 NOT DETECTED RSV NOT DETECTED Bordetella Pertussis NOT DETECTED Chlamydophila Pneumoniae NOT DETECTED Mycoplasma Pneumoniae NOT DETECTED Specimen Performing Laboratory Nasal Wash MAIN LAB [address] [place] [address] * GRAM STAIN (04/04/2017 1:01 AM) Only the most recent of 2 results within the time period is included. Component Value Ref Range Battery Name GRAM STAIN Specimen Description SPUTUM Special Requests NONE Gram Stain GREATER THAN 25/LPF NEUTROPHILS LESS THAN 10/LPF SQUAMOUS EPITHELIAL CELLS FEW MIXED BACTERIA Report Status FINAL 04/04/2017 Specimen Performing Laboratory Sputum MAIN LAB [address] [place] [address] * CULTURE-RESP,LOWER W/SENSITIVITY (04/04/2017 1:01 AM) Component Value Ref Range Battery Name LOWER RESP CULTURE Specimen Description SPUTUM Special Requests NONE Direct Gram Stain GREATER THAN 25/LPF NEUTROPHILS LESS THAN 10/LPF SQUAMOUS EPITHELIAL CELLS FEW MIXED BACTERIA Culture Moderate growth NORMAL OROPHARYNGEAL EVELIA Report Status FINAL 04/06/2017 Specimen Performing Laboratory Sputum MAIN LAB [address] [place] [address] * PROCALCITONIN (04/04/2017 12:33 AM) Component Value Ref Range Procalcitonin 2.37 (H) <0.10 NG/ML Specimen Performing Laboratory Blood MAIN LAB [address] [place] [address] * IRON + BINDING CAPACITY + %SAT+ FERRITIN (04/04/2017 12:33 AM) Component Value Ref Range Iron 17 (L) 50 - 185 MCG/DL Iron Binding-TIBC 225 (L) 270 - 380 MCG/DL % Saturation 8 (L) 28 - 42 % Ferritin 1,117 (H) 30 - 300 NG/ML Specimen Performing Laboratory Blood MAIN LAB [address] [place] [address] * IMMATURE PLATELET FRACTION (04/04/2017 12:33 AM) Component Value Ref Range Immature Platelet 4.3Comment: TEST PERFORMED BY [facility] 1.1 - 7.1 % Fraction LAB Specimen Performing Laboratory Blood [facility] [address] [place], [place] [id number] * TSH WITH FREE T4 REFLEX (04/04/2017 12:33 AM) Component Value Ref Range TSH 3.562 0.35 - 5.00 MCU/ML Specimen Performing Laboratory Blood [facility] [address] [place] [address] * CULTURE-BLOOD W/SENSITIVITY (04/04/2017 12:33 AM) Only the most recent of 2 results within the time period is included. Component Value Ref Range Battery Name BLOOD CULTURE Specimen Description BLOOD RIGHT WRIST Special Requests NONE Culture NO GROWTH 5 DAYS Report Status FINAL 04/10/2017 Specimen Performing Laboratory Blood [facility] [address] [place] [address] * SOLUBLE TRANSFERRIN RECEPTOR (04/04/2017 12:33 AM) Component Value Ref Range Transferrin Receptor 2.2 Comment: Reference range: 1.8 to 4.6 Unit: mg/L ADDITIONAL INFORMATION It is reported that Americans may have slightly higher values. [facility] [email or web address] Specimen Performing Laboratory REFERENCE LAB * PERIPHERAL SMEAR (04/04/2017 12:33 AM) Component Value Ref Range Peripheral Smear PANCYTOPENIA. NORMOCYTIC ANEMIA. ABSOLUTE LYMPHOCYTOPENIA. MODERATE THROMBOCYTOPENIA WITH NORMAL PLATELET MORPHOLOGY. Pathologist Signature INTERPRETED BY NATHAN MCDONALD M.D. By the PATH SIGNATURE ABOVE, I attest that I have personally formulated the final interpretation expressed in this report and that the above diagnosis is based upon my examination of the slides and/or other material indicated in this report. Specimen Performing Laboratory Blood MAIN LAB [address] [place], [place] [id number] * PTT (APTT) (04/04/2017 12:33 AM) Only the most recent of 3 results within the time period is included. Component Value Ref Range APTT 32.2Comment: NOTE NEW REFERENCE RANGES 21.0 - 39.0 SEC Specimen Performing Laboratory [facility] [address] [place], [place] [id number] * SED RATE (04/04/2017 12:33 AM) Component Value Ref Range Sed Rate -ESR 38 (H) 0 - 15 MM/HR Specimen Performing Laboratory [facility] [address] [place], [place] [id number] * PROTIME INR (PT) (04/04/2017 12:33 AM) Only the most recent of 3 results within the time period is included. Component Value Ref Range INR 1.2 0.8 - 1.2 Specimen Performing Laboratory [facility] [address] [place], [place] [id number] * TYPE & CROSSMATCH (04/04/2017 12:33 AM) Only the most recent of 3 results within the time period is included. Component Value Ref Range Units Ordered 1 Crossmatch Expires 04/07/2017 Record Check FOUND ABO/RH(D) A POS Antibody Screen NEG Electronic Crossmatch YES Unit Number [id number] Blood Component Type RBC,ADSOL,LEUKO REDUCED Unit Division 0 Status OF Unit TRANSFUSED Transfusion Status OK TO TRANSFUSE Crossmatch Result COMPATIBLE,ELECTRONIC Specimen Performing Laboratory Blood [facility] [address] [place] [address] * C REACTIVE PROTEIN (CRP) (04/04/2017 12:33 AM) Component Value Ref Range C-Reactive Protein 11.01 (H) <1.0 MG/DL Specimen Performing Laboratory [facility] [address] [place] [address] * HAPTOGLOBIN (04/04/2017 12:33 AM) Component Value Ref Range Haptoglobin 139 16 - 200 MG/DL Specimen Performing Laboratory [facility] [address] [place], [place] [id number] * FOLATE, SERUM (04/04/2017 12:33 AM) Component Value Ref Range Serum Folate 13.9Comment: NOTE NEW REFERENCE RANGES >3.9 NG/ML Specimen Performing Laboratory Blood [facility] [address] [place], [place] [id number] * VITAMIN B12 (04/04/2017 12:33 AM) Component Value Ref Range Vitamin B12 568 180 - 914 PG/ML Specimen Performing Laboratory Blood [facility] MAIN LAB [address] [place] [address] * VANCOMYCIN RANDOM (04/04/2017 12:33 AM) Component Value Ref Range Vancomycin Random <2.0 MCG/ML Specimen Performing Laboratory Blood [facility] MAIN LAB [address] [place] [address] * CT ABD/PELV WO CONTRAST (04/03/2017 11:40 PM) Only the most recent of 2 results within the time period is included. Specimen Performing Laboratory [facility] RAD RESULTS Impressions Chest: 1.No significant change in left lower lobe consolidation with associated volume loss most consistent with atelectasis. Pneumonia may contribute to this appearance. 2.Unchanged small left pleural effusion. 3.Moderate cardiomegaly with pulmonary venous congestion, subtle interlobular septal thickening, and persistent diffuse groundglass opacities suggestive of CHF and pulmonary edema. 4.Densely calcified coronary artery disease. 5.Dilatation of the main pulmonary artery suggestive of pulmonary hypertension. Abdomen and Pelvis: 1.Development of moderate splenomegaly and trace abdominal ascites which may be secondary to portal hypertension. 2.Persistent moderate hepatomegaly which may be enlarged due to chronic passive congestion. 3.No bowel obstruction or free air. By my electronic signature, I attest that I have personally reviewed the images for this examination and formulated the interpretations and opinions expressed in this report Finalized by Dillon Maldonado M.D. on 04/04/2017 12:20 AM. Dictated by Imani Baker M.D. on 04/03/2017 11:[address] Chest, Abdomen and Pelvis Clinical Indication: Male, 51 years old. Fever, hypoxia, question aspiration pneumonia, abdominal pain Technique: Multiple contiguous axial images were obtained through the chest, abdomen and pelvis without IV contrast material. Post processing coronal and sagittal reconstruction images were made from the axial images. IV contrast: None. Comparison: CT chest from 03/17/2017, CT abdomen/pelvis from 03/13/2017 Chest Findings: Evaluation of the mediastinum and nahed, including the vasculature and for lymphadenopathy, is limited without the use of IV contrast. Axilla, Mediastinum and Nahed: Unchanged mildly enlarged hilar and mediastinal lymph nodes, which are most likely reactive or enlarged due to chronic passive congestion. No axillary lymphadenopathy. Heart and Great Vessels: Moderate cardiomegaly with trace pericardial fluid. Dense calcified coronary artery disease. Normal caliber thoracic aorta with mild calcified atherosclerosis. Mild dilatation of the main pulmonary artery. Anemia. Airway, Lungs and Pleura: Central airways patent. Evaluation of the lung parenchyma is somewhat limited secondary to respiratory motion. Pulmonary venous congestion with subtle areas of interlobular septal thickening. No significant change in left lower lobe consolidation and volume loss. Diffuse groundglass opacities in the bilateral lungs have also not significantly changed. Persistent small left pleural effusion. Chest Wall and Osseous Structures: Mild bilateral gynecomastia. Mild thoracic spondylosis. No destructive osseous lesions. Abdomen and Pelvis Findings: Limited evaluation without the use of IV contrast which includes the viscera and vasculature. Liver and Biliary system: Persistent moderate hepatomegaly with mild diffuse steatosis. No focal hepatic lesion identified. No calcified gallstones. Spleen: Development of moderate splenomegaly. Adrenal Glands and Kidneys: Persistent bilateral adrenal gland thickening and nodularity. Unchanged mild nonspecific perinephric stranding bilaterally. No hydronephrosis. Pancreas and Retroperitoneum: Unremarkable pancreas. No retroperitoneal lymphadenopathy. Aorta and Major Vessels: Normal caliber abdominal aorta with moderate calcified aortoiliac atherosclerosis. Bowel, Mesentery and Peritoneal space: Normal caliber large and small bowel loops. No mesenteric lymphadenopathy. Trace abdominal ascites. Pelvis: Unremarkable urinary bladder and prostate gland. No pelvic lymphadenopathy or ascites. Abdominal wall and Osseous Structures: Small bilateral fat-containing inguinal hernias. Calvarial flap is again noted in the right abdominal wall. Moderate lumbar spondylosis. Subchondral cyst in the left acetabulum. No destructive osseous lesions. Procedure Note Interface, Radiant Results - 04/04/2017 12:23 AM GL[employer] W[employer] CAR[employer]ER CT Chest, Abdomen and Pelvis Clinical Indication: Male, 51 years old. Fever, hypoxia, question aspiration pneumonia, abdominal pain Technique: Multiple contiguous axial images were obtained through the chest, abdomen and pelvis without IV contrast material. Post processing coronal and sagittal reconstruction images were made from the axial images. IV contrast: None. Comparison: CT chest from 03/17/2017, CT abdomen/pelvis from 03/13/2017 Chest Findings: Evaluation of the mediastinum and nahed, including the vasculature and for lymphadenopathy, is limited without the use of IV contrast. Axilla, Mediastinum and Nahed: Unchanged mildly enlarged hilar and mediastinal lymph nodes, which are most likely reactive or enlarged due to chronic passive congestion. No axillary lymphadenopathy. Heart and Great Vessels: Moderate cardiomegaly with trace pericardial fluid. Dense calcified coronary artery disease. Normal caliber thoracic aorta with mild calcified atherosclerosis. Mild dilatation of the main pulmonary artery. Anemia. Airway, Lungs and Pleura: Central airways patent. Evaluation of the lung parenchyma is somewhat limited secondary to respiratory motion. Pulmonary venous congestion with subtle areas of interlobular septal thickening. No significant change in left lower lobe consolidation and volume loss. Diffuse groundglass opacities in the bilateral lungs have also not significantly changed. Persistent small left pleural effusion. Chest Wall and Osseous Structures: Mild bilateral gynecomastia. Mild thoracic spondylosis. No destructive osseous lesions. Abdomen and Pelvis Findings: Limited evaluation without the use of IV contrast which includes the viscera and vasculature. Liver and Biliary system: Persistent moderate hepatomegaly with mild diffuse steatosis. No focal hepatic lesion identified. No calcified gallstones. Spleen: Development of moderate splenomegaly. Adrenal Glands and Kidneys: Persistent bilateral adrenal gland thickening and nodularity. Unchanged mild nonspecific perinephric stranding bilaterally. No hydronephrosis. Pancreas and Retroperitoneum: Unremarkable pancreas. No retroperitoneal lymphadenopathy. Aorta and Major Vessels: Normal caliber abdominal aorta with moderate calcified aortoiliac atherosclerosis. Bowel, Mesentery and Peritoneal space: Normal caliber large and small bowel loops. No mesenteric lymphadenopathy. Trace abdominal ascites. Pelvis: Unremarkable urinary bladder and prostate gland. No pelvic lymphadenopathy or ascites. Abdominal wall and Osseous Structures: Small bilateral fat-containing inguinal hernias. Calvarial flap is again noted in the right abdominal wall. Moderate lumbar spondylosis. Subchondral cyst in the left acetabulum. No destructive osseous lesions. IMPRESSION Chest: 1. No significant change in left lower lobe consolidation with associated volume loss most consistent with atelectasis. Pneumonia may contribute to this appearance. 2. Unchanged small left pleural effusion. 3. Moderate cardiomegaly with pulmonary venous congestion, subtle interlobular septal thickening, and persistent diffuse groundglass opacities suggestive of CHF and pulmonary edema. 4. Densely calcified coronary artery disease. 5. Dilatation of the main pulmonary artery suggestive of pulmonary hypertension. Abdomen and Pelvis: 1. Development of moderate splenomegaly and trace abdominal ascites which may be secondary to portal hypertension. 2. Persistent moderate hepatomegaly which may be enlarged due to chronic passive congestion. 3. No bowel obstruction or free air. By my electronic signature, I attest that I have personally reviewed the images for this examination and formulated the interpretations and opinions expressed in this report Finalized by Dillon Maldonado M.D. on 04/04/2017 12:20 AM. Dictated by Imani Baker M.D. on 04/03/2017 11:49 PM. * CT CHEST WO CONTRAST (04/03/2017 11:40 PM) Specimen Performing Laboratory [facility] RAD RESULTS Impressions Chest: 1.No significant change in left lower lobe consolidation with associated volume loss most consistent with atelectasis. Pneumonia may contribute to this appearance. 2.Unchanged small left pleural effusion. 3.Moderate cardiomegaly with pulmonary venous congestion, subtle interlobular septal thickening, and persistent diffuse groundglass opacities suggestive of CHF and pulmonary edema. 4.Densely calcified coronary artery disease. 5.Dilatation of the main pulmonary artery suggestive of pulmonary hypertension. Abdomen and Pelvis: 1.Development of moderate splenomegaly and trace abdominal ascites which may be secondary to portal hypertension. 2.Persistent moderate hepatomegaly which may be enlarged due to chronic passive congestion. 3.No bowel obstruction or free air. By my electronic signature, I attest that I have personally reviewed the images for this examination and formulated the interpretations and opinions expressed in this report Finalized by Dillon Maldonado M.D. on 04/04/2017 12:20 AM. Dictated by Imani Baker M.D. on 04/03/2017 11:[address] Chest, Abdomen and Pelvis Clinical Indication: Male, 51 years old. Fever, hypoxia, question aspiration pneumonia, abdominal pain Technique: Multiple contiguous axial images were obtained through the chest, abdomen and pelvis without IV contrast material. Post processing coronal and sagittal reconstruction images were made from the axial images. IV contrast: None. Comparison: CT chest from 03/17/2017, CT abdomen/pelvis from 03/13/2017 Chest Findings: Evaluation of the mediastinum and nahed, including the vasculature and for lymphadenopathy, is limited without the use of IV contrast. Axilla, Mediastinum and Nahed: Unchanged mildly enlarged hilar and mediastinal lymph nodes, which are most likely reactive or enlarged due to chronic passive congestion. No axillary lymphadenopathy. Heart and Great Vessels: Moderate cardiomegaly with trace pericardial fluid. Dense calcified coronary artery disease. Normal caliber thoracic aorta with mild calcified atherosclerosis. Mild dilatation of the main pulmonary artery. Anemia. Airway, Lungs and Pleura: Central airways patent. Evaluation of the lung parenchyma is somewhat limited secondary to respiratory motion. Pulmonary venous congestion with subtle areas of interlobular septal thickening. No significant change in left lower lobe consolidation and volume loss. Diffuse groundglass opacities in the bilateral lungs have also not significantly changed. Persistent small left pleural effusion. Chest Wall and Osseous Structures: Mild bilateral gynecomastia. Mild thoracic spondylosis. No destructive osseous lesions. Abdomen and Pelvis Findings: Limited evaluation without the use of IV contrast which includes the viscera and vasculature. Liver and Biliary system: Persistent moderate hepatomegaly with mild diffuse steatosis. No focal hepatic lesion identified. No calcified gallstones. Spleen: Development of moderate splenomegaly. Adrenal Glands and Kidneys: Persistent bilateral adrenal gland thickening and nodularity. Unchanged mild nonspecific perinephric stranding bilaterally. No hydronephrosis. Pancreas and Retroperitoneum: Unremarkable pancreas. No retroperitoneal lymphadenopathy. Aorta and Major Vessels: Normal caliber abdominal aorta with moderate calcified aortoiliac atherosclerosis. Bowel, Mesentery and Peritoneal space: Normal caliber large and small bowel loops. No mesenteric lymphadenopathy. Trace abdominal ascites. Pelvis: Unremarkable urinary bladder and prostate gland. No pelvic lymphadenopathy or ascites. Abdominal wall and Osseous Structures: Small bilateral fat-containing inguinal hernias. Calvarial flap is again noted in the right abdominal wall. Moderate lumbar spondylosis. Subchondral cyst in the left acetabulum. No destructive osseous lesions. Procedure Note Interface, Radiant Results - 04/04/2017 12:23 AM GL[employer] W[employer] CAR[employer]ER CT Chest, Abdomen and Pelvis Clinical Indication: Male, 51 years old. Fever, hypoxia, question aspiration pneumonia, abdominal pain Technique: Multiple contiguous axial images were obtained through the chest, abdomen and pelvis without IV contrast material. Post processing coronal and sagittal reconstruction images were made from the axial images. IV contrast: None. Comparison: CT chest from 03/17/2017, CT abdomen/pelvis from 03/13/2017 Chest Findings: Evaluation of the mediastinum and nahed, including the vasculature and for lymphadenopathy, is limited without the use of IV contrast. Axilla, Mediastinum and Nahed: Unchanged mildly enlarged hilar and mediastinal lymph nodes, which are most likely reactive or enlarged due to chronic passive congestion. No axillary lymphadenopathy. Heart and Great Vessels: Moderate cardiomegaly with trace pericardial fluid. Dense calcified coronary artery disease. Normal caliber thoracic aorta with mild calcified atherosclerosis. Mild dilatation of the main pulmonary artery. Anemia. Airway, Lungs and Pleura: Central airways patent. Evaluation of the lung parenchyma is somewhat limited secondary to respiratory motion. Pulmonary venous congestion with subtle areas of interlobular septal thickening. No significant change in left lower lobe consolidation and volume loss. Diffuse groundglass opacities in the bilateral lungs have also not significantly changed. Persistent small left pleural effusion. Chest Wall and Osseous Structures: Mild bilateral gynecomastia. Mild thoracic spondylosis. No destructive osseous lesions. Abdomen and Pelvis Findings: Limited evaluation without the use of IV contrast which includes the viscera and vasculature. Liver and Biliary system: Persistent moderate hepatomegaly with mild diffuse steatosis. No focal hepatic lesion identified. No calcified gallstones. Spleen: Development of moderate splenomegaly. Adrenal Glands and Kidneys: Persistent bilateral adrenal gland thickening and nodularity. Unchanged mild nonspecific perinephric stranding bilaterally. No hydronephrosis. Pancreas and Retroperitoneum: Unremarkable pancreas. No retroperitoneal lymphadenopathy. Aorta and Major Vessels: Normal caliber abdominal aorta with moderate calcified aortoiliac atherosclerosis. Bowel, Mesentery and Peritoneal space: Normal caliber large and small bowel loops. No mesenteric lymphadenopathy. Trace abdominal ascites. Pelvis: Unremarkable urinary bladder and prostate gland. No pelvic lymphadenopathy or ascites. Abdominal wall and Osseous Structures: Small bilateral fat-containing inguinal hernias. Calvarial flap is again noted in the right abdominal wall. Moderate lumbar spondylosis. Subchondral cyst in the left acetabulum. No destructive osseous lesions. IMPRESSION Chest: 1. No significant change in left lower lobe consolidation with associated volume loss most consistent with atelectasis. Pneumonia may contribute to this appearance. 2. Unchanged small left pleural effusion. 3. Moderate cardiomegaly with pulmonary venous congestion, subtle interlobular septal thickening, and persistent diffuse groundglass opacities suggestive of CHF and pulmonary edema. 4. Densely calcified coronary artery disease. 5. Dilatation of the main pulmonary artery suggestive of pulmonary hypertension. Abdomen and Pelvis: 1. Development of moderate splenomegaly and trace abdominal ascites which may be secondary to portal hypertension. 2. Persistent moderate hepatomegaly which may be enlarged due to chronic passive congestion. 3. No bowel obstruction or free air. By my electronic signature, I attest that I have personally reviewed the images for this examination and formulated the interpretations and opinions expressed in this report Finalized by Dillon Maldonado M.D. on 04/04/2017 12:20 AM. Dictated by Imani Baker M.D. on 04/03/2017 11:49 PM. * CT HEAD WO CONTRAST (04/03/2017 11:40 PM) Only the most recent of 3 results within the time period is included. Specimen Performing Laboratory [facility] RAD RESULTS Impressions 1.Previous right pterional craniectomy with increase in size of the adjacent subgaleal fluid collection since 03/22/2017 suggestive of enlarging pseudomeningocele. 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 By my electronic signature, I attest that I have personally reviewed the images for this examination and formulated the interpretations and opinions expressed in this report Finalized by Dillon Maldonado M.D. on 04/04/2017 12:06 AM. Dictated by Imani Baker M.D. on 04/03/2017 11:40 PM. Narrative EXAM: CT HEAD HISTORY: Recent ruptured cerebral aneurysm. Fever. Confusion TECHNIQUE: Multiple contiguous axial images were obtained of the brain without intravenous contrast. COMPARISON: CT head from 03/22/2017 FINDINGS: Previous right pterional craniectomy and right MCA aneurysm clipping. Increase in size of adjacent subgaleal fluid collection since 03/22/2017. Continued evolution of low attenuation in the anterior right temporal lobe, consistent with evolving infarct. Small low-density extra-axial fluid collection along the right frontal convexity is unchanged. No evidence of new acute intracranial hemorrhage. Basal cisterns are patent. Unchanged moderate nonspecific white matter disease. Slight decrease in size of the lateral ventricles. No midline shift. Mild mucosal thickening of the paranasal sinuses. The visualized skull base is intact. The visualized globes and orbits are grossly unremarkable. Procedure Note Interface, Radiant Results - 04/04/2017 12:09 AM GLASS WASHER AND CARRIER EXAM: CT HEAD HISTORY: Recent ruptured cerebral aneurysm. Fever. Confusion TECHNIQUE: Multiple contiguous axial images were obtained of the brain without intravenous contrast. COMPARISON: CT head from 03/22/2017 FINDINGS: Previous right pterional craniectomy and right MCA aneurysm clipping. Increase in size of adjacent subgaleal fluid collection since 03/22/2017. Continued evolution of low attenuation in the anterior right temporal lobe, consistent with evolving infarct. Small low-density extra-axial fluid collection along the right frontal convexity is unchanged. No evidence of new acute intracranial hemorrhage. Basal cisterns are patent. Unchanged moderate nonspecific white matter disease. Slight decrease in size of the lateral ventricles. No midline shift. Mild mucosal thickening of the paranasal sinuses. The visualized skull base is intact. The visualized globes and orbits are grossly unremarkable. IMPRESSION 1. Previous right pterional craniectomy with increase in size of the adjacent subgaleal fluid collection since 03/22/2017 suggestive of enlarging pseudomeningocele. 2. 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 By my electronic signature, I attest that I have personally reviewed the images for this examination and formulated the interpretations and opinions expressed in this report Finalized by Dillon Maldonado M.D. on 04/04/2017 12:06 AM. Dictated by Imani Baker M.D. on 04/03/2017 11:40 PM. * TELEMETRY STRIPS-SCAN (04/03/2017 1:24 PM) Narrative Ordered by an unspecified provider. * ECG-SCAN (04/03/2017 1:19 PM) Narrative Ordered by an unspecified provider. * ECG-SCAN (04/03/2017 9:50 AM) Narrative Ordered by an unspecified provider. * ECG-SCAN (04/03/2017 9:50 AM) Narrative Ordered by an unspecified provider. * POC GLUCOSE (03/26/2017 1:47 PM) Only the most recent of 71 results within the time period is included. Component Value Ref Range Glucose, POC 103 (H) 70 - 100 MG/DL Specimen Performing Laboratory MAIN LAB [address] [place] [address] * BLOOD GASES, ARTERIAL (03/23/2017 4:39 AM) Only the most recent of 18 results within the time period is included. Component Value Ref Range pH-Arterial 7.26 (L) 7.35 - 7.45 pCO2-Arterial 36 35 - 45 MMHG pO2-Arterial 74 (L) 80 - 100 MMHG Base Deficit-Arterial 10.6 MMOL/L O2 Sat-Arterial 92.5 (L) 95 - 99 % Tiplatclwxu-DUT-Oop 16.1 (L) 21 - 28 MMOL/L Specimen Performing Laboratory Blood, arterial - Blood MAIN LAB [address] [place] [address] * IONIZED CALCIUM (03/23/2017 4:39 AM) Only the most recent of 15 results within the time period is included. Component Value Ref Range Ionized Calcium 1.25 1.0 - 1.3 MMOL/L Specimen Performing Laboratory Blood MAIN LAB [address] [place] [address] * SWALLOW MOTION SERIES (03/21/2017 3:40 PM) [...] expressed in this report Finalized by Claudia Tinooc M.D. on 03/21/2017 4:41 PM. Dictated by [...] Interface, Radiant Results - 03/21/2017 4:44 PM GLASS WASHER AND CARRIER SWALLOW MOTION SERIES CLINICAL INDICATION: Male, 51 [...] Interface, Radiant Results - 03/20/2017 7:53 AM GLASS WASHER AND CARRIER Portable AP abdomen CLINICAL HISTORY: Corpak verification. [...] Interface, Radiant Results - 03/19/2017 6:45 AM GLASS WASHER AND CARRIER Bilateral lower extremity venous Doppler History: Immobility, [...] Findings: Lower neck: Unremarkable. Axilla, Mediastinum and Nahed: Enteric tube noted. No thoracic lymphadenopathy. Mildly [...] Interface, Radiant Results - 03/17/2017 12:30 PM GLASS WASHER AND CARRIER CT Chest Clinical Indication: Male, 51 years old. Pleural effusion, thickened pleura. Technique: Multiple contiguous axial images were obtained through the chest following administration of Isovue-370 IV contrast material. Post processing coronal and sagittal reconstruction images were made from the axial images. Comparison: None Chest Findings: Lower neck: Unremarkable. Axilla, Mediastinum and Nahed: Enteric tube noted. No thoracic lymphadenopathy. Mildly [...] Ref Range PH-ART-POC 7.35 7.35 - 7.45 VRA9-HJD-DGA 40 35 - 45 MMHG PO2-ART-POC 90 80 - 100 MMHG Base Def-ART-POC 4.0 MMOL/L O2 Sat-ART-POC 97.0 95 - 99 % Vdedgxfnilz-GFP-UXU 22.0 21 - 28 MMOL/L Specimen Performing Laboratory MAIN LAB [address] [place] [address] * POC SODIUM (03/17/2017 5:29 AM) Only the most recent of 6 results within the time period is included. Component Value Ref Range Sodium-POC 135 (L) 137 - 147 MMOL/L Specimen Performing Laboratory MAIN LAB [address] [place] [address] * POC POTASSIUM (03/17/2017 5:29 AM) Only the most recent of 6 results within the time period is included. Component Value Ref Range Potassium-POC 3.8 3.5 - 5.1 MMOL/L Specimen Performing Laboratory MAIN LAB [address] [place] [address] * POC IONIZED CALCIUM (03/17/2017 5:29 AM) Only the most recent of 6 results within the time period is included. Component Value Ref Range Ionized Calcium-POC 1.12 1.0 - 1.3 MMOL/L Specimen Performing Laboratory MAIN LAB [address] [place], [place] [id number] * POC HEMATOCRIT (03/17/2017 5:29 AM) Only the most recent of 6 results within the time period is included. Component Value Ref Range Hemoglobin POC 9.2 (L) 13.5 - 16.5 GM/DL Hematocrit POC 27.0 (L) 40 - 50 % Specimen Performing Laboratory MAIN LAB [address] [place], [place] [id number] * LIPASE (03/17/2017 4:13 AM) Only the most recent of 2 results within the time period is included. Component Value Ref Range Lipase 45 11 - 82 U/L Specimen Performing Laboratory MAIN LAB [address] [place], [place] [id number] * AMYLASE (03/17/2017 4:13 AM) Only the most recent of 2 results within the time period is included. Component Value Ref Range Amylase 86 24 - 100 U/L Specimen Performing Laboratory MAIN LAB [address] [place], [place] [id number] * CHEST SINGLE VIEW (03/16/2017 10:10 PM) Only the most recent of 8 results within the time period is included. Specimen Performing Laboratory RAD RESULTS Impressions Persistent findings of fluid [...] Interface, Radiant Results - 03/17/2017 11:49 AM GLASS WASHER AND CARRIER CHEST SINGLE VIEW Clinical Indication: Male, 51 [...] decreasing/normal Specimen Performing Laboratory Blood MAIN LAB [address] [place] [address] * LACTIC ACID(LACTATE) (03/16/2017 11:20 AM) Component Value Ref Range Lactic Acid 0.8 0.5 - 2.0 MMOL/L Specimen Performing Laboratory Blood MAIN LAB [address] [place] [address] * PLEURAL FLUID TRIGLYCERIDES (03/14/2017 4:30 PM) Component Value Ref Range Pleural Fluid 20 mg/dL Triglycerides Comment: Triglycerides >110 mg/dL is suggestive of a chylothorax. Triglycerides <50 mg/dL is suggestive of pseudochylothorax. Specimen Performing Laboratory Pleural Fluid [facility] MAIN [facility] [address] [facility] [place] [address] * PLEURAL FLUID TOTAL PROTEIN (03/14/2017 4:30 PM) Component Value Ref Range Pleural Fluid Total 3.8 (H)Comment: Serum to pleural fluid protein <1.1 g/ dL Protein gradient >3.1 g/dL is suggestive of an exudate Specimen Performing Laboratory Pleural Fluid MAIN LAB [address] [place] [address] * PLEURAL FLUID PH (03/14/2017 4:30 PM) Component Value Ref Range Pleural Fluid Ph 7.70 (H) 7.60 - 7.66 Specimen Performing Laboratory Pleural Fluid MAIN LAB [address] [place] [address] * PLEURAL FLUID LACTATE DEHYDROGENASE (03/14/2017 4:30 PM) Component Value Ref Range Pleural Fluid Lactate 255 (H)Comment: Higher levels suggestive of 67 - 140 U/L Dehydrogenase exudate Specimen Performing Laboratory Pleural Fluid MAIN LAB [address] [place] [address] * PLEURAL FLUID GLUCOSE (03/14/2017 4:30 PM) Component Value Ref Range Pleural Fluid Glucose 160 (H) 70 - 100 mg/dL Comment: Glucose <60 mg/dL associated with parapneumonic effusion, tuberculosis, malignancy, empyema, and rheumatoid disease Specimen Performing Laboratory Pleural Fluid MAIN LAB [address] [place] [address] * PLEURAL FLUID TOTAL BILIRUBIN (03/14/2017 4:30 PM) Component Value Ref Range Pleural Fluid Total 2.4 mg/dL Bilirubin Comment: Pleural fluid to serum bilirubin ratio of 0.6 suggests the presence of an exudate Specimen Performing Laboratory Pleural Fluid MAIN LAB [address] [place] [address] * PLEURAL FLUID ALBUMIN (03/14/2017 4:30 PM) Component Value Ref Range Pleural Fluid Albumin 2.3Comment: Pleural fluid albumin gradient >1.2 g/ dL g/dL is suggestive of an exudate Specimen Performing Laboratory Pleural Fluid MAIN LAB [address] [place] [address] * FLUID HEMATOCRIT (03/14/2017 4:30 PM) Component Value Ref Range Fluid Hematocrit 0.7 % Specimen Performing Laboratory MAIN LAB [address] [place] [address] * CULTURE-FUNGAL,OTHER (03/14/2017 4:30 PM) Component Value Ref Range Battery Name FUNGUS CULTURE Specimen Description PLEURAL FLUID L pleural space Special Requests NONE Culture NO GROWTH OF FUNGUS AT 4 WEEKS Report Status FINAL 04/15/2017 Specimen Performing Laboratory Pleural Fluid [facility] [address] [place] [address] * CULTURE-TB (AFB) (03/14/2017 4:30 PM) Component Value Ref Range Battery Name AFB CULTURE Specimen Description PLEURAL FLUID L pleural space Special Requests NONE Culture NO GROWTH OF MYCOBACTERIA AT 6 WEEKS Report Status FINAL 04/29/2017 Specimen Performing Laboratory Pleural Fluid [facility] [address] [place] [address] * CULTURE-WOUND/TISSUE/FLUID(AEROBIC ONLY)W/SENSITIVITY (03/14/2017 4:30 PM) Component Value Ref Range Battery Name ROUTINE CULTURE Specimen Description PLEURAL FLUID L pleural space Special Requests NONE Direct Gram Stain RARE NEUTROPHILS MANY RBC'S NO ORGANISMS SEEN Culture NO GROWTH 5 DAYS Report Status FINAL 03/19/2017 Specimen Performing Laboratory Pleural Fluid [facility] [address] [place] [address] * CELL COUNT W/DIFF-FLUIDS (03/14/2017 4:30 PM) Component Value Ref Range White Blood Cells,Fluid 160 /UL Red Blood Cells,Fluid 75,700 /UL Segmented Neutrophils, 30 % Fluid Lymphocytes,Fluid [...] Specimen Performing Laboratory Fluid - Pleural Fluid [facility] [address] [place] [address] * NON-RAILWAY YARD ASSISTANT CYTOLOGY (BODY FLUIDS/TISSUE) (03/14/2017 8:49 AM) Component Value Ref Range Cytology [facility] [email or web address] Department of Pathology and Laboratory Medicine [address] [place] [address] Surgical Pathology Office: [phone] CYTOLOGY REPORT NAME: NAREN MAYFIELD CYTOLOGY #: [id number] MR #: [id number] ALT ID #: BILLING #: [id number] LOCATION: [facility] DATE OF PROCEDURE: 03/14/2017 AGE: 51 SEX: [...] Cytology Specimen Performing Laboratory LAB RESULTS * CHEM 7 ADD ON (03/14/2017 3:15 AM) Component Value Ref Range Total Protein 7.2 6.0 - 8.0 G/DL Total Bilirubin 0.5 0.3 - 1.2 MG/DL Albumin 3.6 3.5 - 5.0 G/DL Alk Phosphatase 71 25 - 110 U/L AST (SGOT) 21 7 - 40 U/L ALT (SGPT) 3 (L) 7 - 56 U/L Specimen Performing Laboratory MAIN LAB [address] [place] [address] * FIBRINOGEN (03/14/2017 3:15 AM) Component Value Ref Range Fibrinogen 693 (H) 200 - 400 MG/DL Specimen Performing Laboratory Blood MAIN LAB [address] [place] [address] * OSMOLALITY (03/14/2017 3:15 AM) Component Value Ref Range Osmolality 312 (H) 280 - 307 MOSMOL/KG Specimen Performing Laboratory Blood [facility] MAIN [facility] [address] [place] [address] * LIPID PROFILE (03/14/2017 3:15 AM) Component [...] 130 mg/dL. Specimen Performing Laboratory MAIN LAB [address] [place] [address] * TEG WITH KAOLIN (03/13/2017 4:25 PM) Component Value Ref Range MA Kaolin 77.7 (H) 50.0 - 70.0 MM R Kaolin 6.1 3.0 - 9.0 MIN RK Kaolin 7.0 4.0 - 12.0 MIN K Kaolin 0.9 (L) 1.0 - 3.0 MIN Angle Kaolin 76.0 (H) 55 - 75 DEG Lysis30 0.0 0.0 - 8.0 % Specimen Performing Laboratory Blood REFERENCE LAB * C DIFFICILE BY PCR (03/13/2017 10:30 AM) Component Value Ref Range Battery Name C DIFFICILE PCR Specimen Description FECES Special Requests NONE C. Difficile Toxin B PCR NEGATIVE-wait 7 days to repeat test Report Status FINAL 03/14/2017 Specimen Performing Laboratory Feces MAIN LAB [address] [place] [address] * CT BRAIN PERF (03/13/2017 9:04 AM) [...] Interface, Radiant Results - 03/13/2017 9:44 AM GLASS WASHER AND CARRIER EXAM: CTA HEAD AND CT PERFUSION HISTORY: [...] Interface, Radiant Results - 03/13/2017 9:44 AM GLASS WASHER AND CARRIER EXAM: CTA HEAD AND CT PERFUSION HISTORY: [...] Lozano M.D. on 03/13/2017 9:14 AM. * ECG-SCAN (03/12/2017 10:05 AM) Narrative Ordered [...] Specimen Performing Laboratory [facility] MAIN LAB [address] [place] [address] * FLUORO MOBILE IN OR (03/10/2017 10:18 [...] angiography is performed to evaluate the vasculature. RED CROSS EXECUTIVE DIRECTOR. Rohit NAVAL MARINE ENGINEER. David PGY-6 PROCEDURE. Intraoperative angiography right [...] interpretation. Procedure Note Interface, Radiant Results - 03/27/2017 5:42 AM GLASS WASHER AND CARRIER CLINICAL HISTORY: 51-year-old with a ruptured right MCA aneurysm underwent surgical clipping. Patient required emergent reoperation for neurologic change. CT perfusion demonstrates prolonged mean transit times involving the inferior division of the right MCA. Intraoperative angiography is performed to evaluate the vasculature. RED CROSS EXECUTIVE DIRECTOR. Rohit NAVAL MARINE ENGINEER. David PGY-6 PROCEDURE. Intraoperative angiography right [...] Bee M.D. on 03/26/2017 2:57 PM. * IR ARTERIOGRAM NEURO (03/10/2017 9:34 AM) Only the most recent of 2 [...] angiography is performed to evaluate the vasculature. RED CROSS EXECUTIVE DIRECTOR. Rohit NAVAL MARINE ENGINEER. David PGY-6 PROCEDURE. Intraoperative angiography right [...] interpretation. Procedure Note Interface, Radiant Results - 03/27/2017 5:42 AM GLASS WASHER AND CARRIER CLINICAL HISTORY: 51-year-old with a ruptured right MCA aneurysm underwent surgical clipping. Patient required emergent reoperation for neurologic change. CT perfusion demonstrates prolonged mean transit times involving the inferior division of the right MCA. Intraoperative angiography is performed to evaluate the vasculature. RED CROSS EXECUTIVE DIRECTOR. Rohit NAVAL MARINE ENGINEER. David PGY-6 PROCEDURE. Intraoperative angiography right [...] Bee M.D. on 03/26/2017 2:57 PM. * BLOOD TYPE CONFIRMATION - ORDER ONLY IF REQUESTED BY LAB (03/10/2017 4:00 AM) Component Value Ref Range ABO/RH(D) A POS Specimen Performing Laboratory Blood MAIN LAB [address] [place] [address] * TRIGLYCERIDE (03/10/2017 3:25 AM) Component Value Ref Range Triglycerides 84 <150 MG/DL Specimen Performing Laboratory MAIN LAB [address] [place] [address] * CT HEAD EXTERNAL IMAGING (03/09/2017 12:15 AM) Narrative This order has been auto finalized and does not contain a result. * GENERAL RAD CHEST EXTERNAL IMAGING (03/09/2017) Narrative This order has been auto finalized and does not contain a result. from Last 3 Months
--- OUTSIDE RECORDS SUMMARY | 2017-05-07 16:21 | XMS REPORT | Encounter Summary ---
Author Author [facility] Organization [facility] Address Unknown Phone Unavailable Care Team Providers Care Border Measurer And Cutter Name Role Phone PCP Unavailable Encounter Details Date Type Department Care Team Description 05/17/2017 Procedure Pass [facility] Operating Room [address] [place] [address] Social History Tobacco Use Types Packs/Day Years Used Date Current Every Day Smoker Cigarettes 30 Smokeless Tobacco: Never Used Alcohol Use Drinks/Week oz/Week Comments No quit 9 years ago Sex Assigned at Date Recorded Not on file as of this encounter Functional Status Functional Status Response Date of Assessment Does the patient have a hearing impairment: No 04/12/2017 Does the patient have a visual impairment: No 04/12/2017 Does the patient have impaired ambulation: No 04/12/2017 Does the patient have an activity of daily living No 04/12/2017 (ADL) impairment: Does the patient have an instrumental activity of No 04/12/2017 daily living (IADL) impairment: Cognitive Status Response Date of Assessment Does the patient have a cognitive impairment: Yes 04/12/2017 as of this encounter Plan of Treatment Date Type Specialty Care Team Description 05/03/2017 Anesthesia Hannah Acevedo, DO Event [address] [place] [address] [phone] 05/17/2017 Surgery Edgar Bee MD CRANIOPLASTY FOR RIGHT [address] [place] [address] [place] [address] FROM RIGHT ABDOMEN [phone] 05/17/2017 Procedure Pass 05/17/2017 Hospital Edgar Bee MD Brain aneurysm Encounter [address] [place] [address] [phone] as of this encounter Visit Diagnoses Not on filein this encounter
--- OUTSIDE RECORDS SUMMARY | 2017-05-07 16:22 | XMS REPORT | Encounter Summary ---
Author Author [facility] Organization [facility] Address Unknown Phone Unavailable Care Team Providers Care Cost Control Analyst Name Role Phone No Pcp, Na PCP Unavailable Encounter Details Date Type Department Care Team Description 05/01/2017 Prep for Case ADMITTING Edgar Bee MD [address] [place] [place] [address] [address] [place] [address] [phone] Social History Tobacco Use Types Packs/Day Years [...] DO Event [address] [place] [address] [phone] 05/17/2017 Surgery Edgar Bee MD CRANIOPLASTY FOR RIGHT [address] [place] [address] RETRIEVAL [place] [address] FROM RIGHT ABDOMEN [phone] 05/17/2017 Procedure Pass 05/17/2017 [facility] Edgar Bee MD Brain aneurysm Encounter [address] [facility] [address] [place], [place] [id number] as of this encounter Visit Diagnoses Not on filein this encounter
--- OUTSIDE RECORDS SUMMARY | 2017-05-07 16:22 | XMS REPORT | Encounter Summary ---
Author Author [facility] Organization [facility] Address Unknown Phone Unavailable Care Team Providers Care Process Assistant Name Role Phone No Pcp, Na PCP Unavailable Reason for Visit * Reason Comments Surgery Pt hypertensive, request for improved control prior to sugeryy. Encounter Details Date Type Department Care Team Description 05/03/2017 [facility]phone [facility] Edgar Bee MD Surgery ( Pt hypertensive, Physicians - Neurosurgery [address] request for improved [address] control prior to [address] [place] [address] sugeryy.) OFFICE BL [phone] [place] [address] Social History Tobacco Use Types Packs/Day Years [...] impairment: Yes 04/12/2017 as of this encounter Miscellaneous Notes * Telephone Encounter - Carolin Wakefield RN - 05/03/2017 1:22 PM ASSISTANT SALES CENTER MANAGER Per pre-anesthesia, recommendation made for patient to be seen by PCP prior to surgery for better control of blood pressure.Systolic range 160-180's. Dr. Bee notified, agrees with plan. Called [facility]. Spoke with Irvin DAVE. Reviewed same information, provided surgery date. Per Irvin DAVE, facility to call PCP Dr. Marquise Arauz @ [phone] to arrange visit. Will plan return call to rehab next week to verify appointment date, time. in this encounter Plan of Treatment Date Type Specialty Care Team Description 05/03/2017 Anesthesia Hannah Acevedo, DO Event [address] [place] [address] [phone] 05/17/2017 Surgery Edgar Bee MD CRANIOPLASTY FOR RIGHT [address] [place] [address] [place] [address] FROM RIGHT ABDOMEN [phone] 05/17/2017 Procedure Pass 05/17/2017 Hospital Edgar Bee MD Brain aneurysm Encounter [address] [place] [address] as of this encounter Visit Diagnoses Not on filein this encounter
--- OUTSIDE RECORDS SUMMARY | 2017-05-07 16:22 | XMS REPORT | Encounter Summary ---
Author Author [facility] Organization [facility] Address Unknown Phone Unavailable Care Team Providers Care Rim Buster Name Role Phone PCP Unavailable Encounter Details Date Type Department Care Team Description 05/17/2017 Hospital CA Operating Room Edgar Bee MD Brain aneurysm Encounter [address] [place] [address] [address] [place] [address] Social History Tobacco Use Types [...] DO Event [address] [place] [address] [phone] 05/17/2017 Surgery Edgar Bee MD CRANIOPLASTY FOR RIGHT [address] [place] [address] [place] [address] FROM RIGHT ABDOMEN [phone] 05/17/2017 Procedure Pass 05/17/2017 [facility] Edgar Bee MD Brain aneurysm Encounter [address] [facility] [address] [place] [address] [phone] as of this encounter Visit Diagnoses Diagnosis Brain aneurysm Cerebral aneurysm, nonruptured Admitting Diagnoses Diagnosis Brain aneurysm - Brain aneurysm [I67.1] Cerebral aneurysm, nonruptured
--- OUTSIDE RECORDS SUMMARY | 2017-05-07 16:22 | XMS REPORT | Encounter Summary ---
Author Author [facility] Organization [facility] Address Unknown Phone Unavailable Care Team Providers Care Runstitching Machine Operator Name Role Phone No Pcp, Na PCP Unavailable Encounter Details Date Type Department Care Team Description 05/17/2017 Surgery [place] Operating Room Edgar Bee MD CRANIOPLASTY FOR RIGHT [address] SIDE SKULL DEFECT, [place] [address] [address] RETRIEVAL OF BONE FLAP [phone] [place] [address] FROM RIGHT ABDOMEN [phone] Social History Tobacco Use Types Packs/Day Years [...] DO Event [address] [place] [address] [phone] 05/17/2017 Surgery Edgar Bee MD CRANIOPLASTY FOR RIGHT [address] [place] [address] [place] [address] FROM RIGHT ABDOMEN [phone] 05/17/2017 Procedure Pass 05/17/2017 [facility] Edgar Bee MD Brain aneurysm Encounter [address] [facility] [address] [place] [address] [phone] as of this encounter Visit Diagnoses Diagnosis Brain aneurysm Cerebral aneurysm, nonruptured Admitting Diagnoses Diagnosis Brain aneurysm - Brain aneurysm [I67.1] Cerebral aneurysm, nonruptured
--- OUTSIDE RECORDS SUMMARY | 2017-05-07 16:22 | XMS REPORT | Encounter Summary ---
Author Author [facility] Organization [facility] Address Unknown Phone Unavailable Care Team Providers Care Retail Financial Analyst Name Role Phone No Pcp, Na PCP Unavailable Encounter Details Date Type Department Care Team Description 05/02/2017 Documentation [facility] Edgar Bee MD Physicians - Neurosurgery [address]LO[address] [place] [address] OFFICE BLDG [phone] [place] [address] Social History Tobacco Use Types [...] impairment: Yes 04/12/2017 as of this encounter Progress Notes * Carolin Wakefield, TENZIN - 05/02/2017 9:17 AM SHREDDED FILLER CIGAR MAKER MACHINE Following information provided by patient during clinic appointment with Dr. Bee: [facility] [place] [place]: Saturday, , Saturday 0900 in this encounter Plan of Treatment Date Type Specialty Care Team Description 05/03/2017 Anesthesia Hannah Acevedo, Event [address] [place] [address] [phone] 05/17/2017 Surgery Edgar Bee MD CRANIOPLASTY FOR RIGHT [address] [place] [address] [place] [address] FROM RIGHT ABDOMEN [phone] 05/17/2017 Procedure Pass 05/17/2017 Hospital Edgar Bee MD Brain aneurysm Encounter [address] [place] [address] [phone] as of this encounter Visit Diagnoses Not on filein this encounter
--- OUTSIDE RECORDS SUMMARY | 2017-05-07 16:22 | XMS REPORT | Encounter Summary ---
Author Author [facility] Organization [facility] Address Unknown Phone Unavailable Care Team Providers Care Vocational Training Director Name Role Phone No Pcp, Na PCP Unavailable Reason for Visit * Reason Comments Post Operative Visit Encounter Details Date Type Department Care Team Description 05/01/2017 Office Visit [facility] Edgar Bee MD Arrived Physicians - Neurosurgery [address] [place] [address] OFFICE BLDG [phone] [place] [address] Social History Tobacco Use Types Packs/Day Years Used Date Current Every Day Smoker Cigarettes 1 30 Smokeless Tobacco: Never Used Alcohol Use Drinks/Week oz/Week Comments No quit 9 years ago Sex Assigned at Date Recorded Not on file as of this encounter Last Filed Vital Signs Vital Sign Reading Time Taken Blood Pressure 182/85 05/01/2017 12:15 PM MIDDLE CARD TENDER Pulse 64 05/01/2017 12:15 PM MIDDLE CARD TENDER Temperature - - Respiratory Rate - - Oxygen Saturation - - Inhaled Oxygen - - Concentration Weight - - Height - - Body Mass Index - - in this encounter Functional Status Functional Status [...] 05/03/2017 Anesthesia Hannah Acevedo, DO Event [address] [place] [address] [phone] 05/17/2017 Surgery Edgar Bee MD CRANIOPLASTY FOR RIGHT [address] [place] [address] [place] [address] FROM RIGHT ABDOMEN [phone] 05/17/2017 Procedure Pass 05/17/2017 Hospital Edgar Bee MD Brain aneurysm Encounter [address] [place] [address] [phone] as of this encounter Visit Diagnoses Not on filein this encounter
--- OUTSIDE RECORDS SUMMARY | 2017-05-07 16:22 | XMS REPORT | Encounter Summary ---
Author Author [facility] Organization [facility] Address Unknown Phone Unavailable Care Team Providers Care Sports Centre Manager Name Role Phone No Pcp, Na PCP Unavailable Encounter Details Date Type Department Care Team Description 05/01/2017 Anesthesia Preoperative Assessment Amaya Sultana APRN-NP Clinic [address] [place] [address] [place] [address] [phone] Anesthesia Record Procedure Name Responsible Anesthesia Start Time Anesthesia Stop Time Anesthesiologist WALK IN/PAC No events on file. Meds * No agents on file. * No blood administrations on file. No LDAs on file. in this encounter Social History Tobacco Use Types Packs/Day Years [...] impairment: Yes 04/12/2017 as of this encounter OR Notes * Anesthesia Preprocedure Evaluation - Hannah Acevedo DO - 05/01/2017 2:15 PM CHISEL GRINDER Formatting of this note may be different from the original. Anesthesia Pre-Procedure Evaluation Name: Naren Mayfield : 1965 Age: 51 y.o. Sex: male Procedure Date: * No surgery found * Procedure: * No surgery found * Physical Assessment Vital Signs (last filed in past 24 hours): Manual BP 168/80 Patient History No Known Allergies Current Medications Medication Directions acetaminophen (TYLENOL) 325 mg tablet Take 2 tablets by mouth every 4 hours as needed. albuterol (VENTOLIN HFA) 90 mcg/actuation inhaler Inhale 2 puffs by mouth into the lungs every 4 hours as needed for Wheezing or Shortness of Breath. Shake well before use. amLODIPine (NORVASC) 10 mg tablet Take 10 mg by mouth daily. atorvastatin (LIPITOR) 10 mg tablet Take 10 mg by mouth at bedtime daily. calcium acetate (PHOSLO) 667 mg capsule Take two tablets with meals and take one with snacks carboxymethylcellulose (REFRESH PLUS) 0.5 % dpet Apply 1 drop to both eyes daily as needed. cloNIDine (CATAPRESS) 0.2 mg tablet Take 1 tablet by mouth three times daily. doxazosin (CARDURA) 8 mg tablet Take 8 mg by mouth at bedtime daily. ferric citrate 210 mg iron tab Take 210 mg by mouth twice daily. furosemide (LASIX) 20 mg tablet Take 4 tablets by mouth twice daily for 30 days. hydrALAZINE (APRESOLINE) 50 mg tablet Take 1 tablet by mouth three times daily for 30 days. isosorbide mononitrate SR (IMDUR) 60 mg tablet Take 1 tablet by mouth at bedtime daily. Levetiracetam 1,000 mg tab Take 1,500 mg by mouth at bedtime daily. losartan(+) (COZAAR) 100 mg tablet Take 100 mg by mouth daily. melatonin 3 mg tab Take 1 tablet by mouth at bedtime daily. metoprolol XL (TOPROL XL) 100 mg extended release tablet Take 1 tablet by mouth twice daily. QUEtiapine (SEROQUEL) 50 mg tablet Take 1 tablet by mouth twice daily. senna/docusate (SENOKOT-S) 8.8/50 mg /10 mL solution Take 10 mL by mouth twice daily. Social History Social History Marital status: Spouse name: N/A Number of children: N/A Years of education: N/A Occupational History Not on file. Social History Main Topics Smoking status: Current Every Day Smoker Packs/day: 1.00 Years: 30.00 Types: Cigarettes Smokeless tobacco: Never Used Alcohol use No Comment: quit 9 years ago Drug use: No Comment: quit 9 years ago, meth and coke Sexual activity: Not on file Other Topics Concern Not on file Social History Narrative Past Medical History: Diagnosis Date Anxiety Arthritis Cerebral aneurysm rupture ([facility]) 03/2017 COPD (chronic obstructive pulmonary disease) ([facility]) 3 L NC at night Depression DM (diabetes mellitus) ([facility]) last A1C is wnl on 03/12/17 Dysphagia ESRD (end stage renal disease) ([facility]) T/TH/S via AV fistula on LUE HLD (hyperlipidemia) HTN (hypertension) Renal failure dialysis t, th and sat Past Surgical History: Procedure Laterality Date INTRACRANIAL ANEURYSM REPAIR N/A 03/10/2017 REPAIR ANEURYSM CRANIOTOMY performed by Edgar Bee MD at [facility] OR/Periop INTRACRANIAL ANEURYSM REPAIR Right 03/10/2017 Rt pterional craniotomy for clipping of MCA aneurysm performed by Edgar Bee MD at [facility] OR/Periop DIALYSIS FISTULA CREATION HX ABDOMEN SURGERY RLQ cadaveral flap related to to previous attempt of ?PD catheter HX KNEE SURGERY Right Review of Systems/Medical History PONV Screening: Postoperative opioids No history of anesthetic complications No family history of anesthetic complications Airway - negative Pulmonary Current smoker (1 ppd x 30 years) COPD Pneumonia: possible PNA 03/2017 sp tx with doxy Home oxygen use (4 liters O2 at night ) Sleep apnea (presumed, no formal sleep study. Pt uses O2 at 4 liters at night. ) L pleural effusion Chronic hypoxia Influenxa B 03/2017 sp tx with Tamiflu Cardiovascular Recent diagnostic studies: ECG and echocardiogram EKG reviewed from 04/10/2017- NSR, non specific intraventricular conduction delay. lateral infarct. Echo 04/10/2017- Normal left ventricular systolic function. EF~ 55% Severe concentric left ventricular hypertrophy. Severe left atrial enlargement. Elevated left atrial pressure Sclerotic aortic valve. No significant stenosis or regurgitation Mildly dilated sinuses of valsalva (3.9 cm) Moderately elevated estimated peak systolic PA pressure of 55 mmHg Exercise tolerance: <4 METS (Exercise tolerance limited 2/2 dyspnea and debility ) Beta Singh therapy: Yes Beta blockers within 24 hours: Yes Hypertension (Norvasc, Clonidine, Hydralazine, Imdur, beta singh, Cozaar per records. BP 175/77 on date of discharge 04/12/2017), CHF ( HFpEF, acute on chronic/exacerbation, improved with lasix 04/2017) Hyperlipidemia (on statin) Dyspnea on exertion (with mild exertion ) Hypertensive urgency 03/2017, started on hydralazine PO and and imdur 04/11/17 GI/Hepatic/Renal Liver disease ( Hepatosplenomegaly 04/2017 with normal LFTs ) Renal disease (T Th Sat. Graft in LUE ): dialysis Date of last dialysis: 04/30/2017 Electrolyte problem (Hyperkalemia , hyponatremia most recent Na 132 ) Hepatosplenomegaly Neuro/Psych No seizures ( Keppra for seizure ppx) CVA (ruptured R MCA aneurysm w/ hematoma and sub-arachnoid hemorrhage 2016 s/p clipping, R hemicraniotomy, pt has a helmet on. ) Headaches (occasional ) No indications/hx of substance abuse (H/o polysubtance abuse (meth and cocaine) and etoh abuse, quit etoh and drugs 2008) Weakness (Bilatearl LE L>R) Dementia (vascular dementia per records ) Psychiatric history (Mood is currently well controlled. ) Depression Anxiety Musculoskeletal Back pain (chronic low back, L4-5 ) Arthritis Ambulates via WC for long distances. He is able to ambulate short distances with a walker and assistance. Endocrine/Other Diabetes (Eating pizza just prior to lab draw. ), type 2 Anemia (pt received PLT and PRBC 03/2017. Most recent Hgb 7.7 ) Pancytopenia Thrombocytopenia Physical Exam Airway Findings Mallampati: III TM distance: >3 FB Neck ROM: full Mouth opening: good Airway patency: adequate Dental Findings: Increased risk for dental injury; pt advised and poor dentition Cardiovascular Findings: Rhythm: regular Rate: normal No murmur, no carotid bruitPeripheral edema: +1 bilateral LE edema. Pulmonary Findings: Breath sounds clear to auscultation. Abdominal Findings: Obese Neurological Findings: Comments: A&O Pt has a helmet Other Findings: Sitting in wheelchair Diagnostic Tests Hematology: Lab Results Component Value Date HGB 7.7 04/12/2017 HCT 23.1 04/12/2017 PLTCT 193 04/12/2017 WBC 4.8 04/12/2017 NEUT 80 04/12/2017 ANC 3.80 04/12/2017 LYMPH 12 04/09/2017 ALC 0.30 04/12/2017 SUZI 12 04/12/2017 AMC 0.60 04/12/2017 EOSA 2 04/12/2017 ABC 0.00 04/12/2017 MCV 90.3 04/12/2017 MCH 30.0 04/12/2017 MCHC 33.3 04/12/2017 MPV 8.3 04/12/2017 RDW 15.2 04/12/2017 General Chemistry: Lab Results Component Value Date NA 132 04/12/2017 K 4.8 04/12/2017 CL 96 04/12/2017 CO2 26 04/12/2017 GAP 10 04/12/2017 BUN 46 04/12/2017 CR 9.55 04/12/2017 GLU 111 04/12/2017 CA 9.6 04/12/2017 ALBUMIN 3.9 04/12/2017 LACTIC 0.8 03/16/2017 OBSCA 1.25 03/23/2017 MG 1.9 04/12/2017 TOTBILI 0.7 04/12/2017 PO4 3.6 04/12/2017 Coagulation: Lab Results Component Value Date PTT 32.2 04/04/2017 INR 1.2 04/04/2017 Anesthesia Plan ASA score: 3 Plan: general Informed Consent Use of blood products discussed with patient;. Labs Pending: BMP, CBC, T&S. T&C DOS PT/PTT normal 04/04/2017 Patients BP on PAC visit ranged from systolic of 160s-180. Both patient and his PCP will be advised to get his BP under better control, with his history of ruptured aneurysm and hypertensive urgency. This patient was seen on a different date by another provider. I am updating this chart based on a targeted review for outstanding issues prior to surgery. Clearance for surgery is not necessarily implied by this addendum and may be performed by another anesthesiologist or myself in the paper tracking record. in this encounter Plan of Treatment Date Type Specialty Care Team Description 05/03/2017 Anesthesia Hannah Acevedo DO Event [address] [place] [address] [phone] 05/17/2017 Surgery Edgar Bee MD CRANIOPLASTY FOR RIGHT [address] [place] [address] [place] [address] FROM RIGHT ABDOMEN [phone] 05/17/2017 Procedure Pass 05/17/2017 Hospital Edgar Bee MD Brain aneurysm Encounter [address] [place] [address] [phone] as of this encounter Visit Diagnoses Not on filein this encounter
--- OUTSIDE RECORDS SUMMARY | 2017-05-07 16:22 | XMS REPORT | Encounter Summary ---
Author Author [facility] Organization [facility] Address Unknown Phone Unavailable Care Team Providers Care Berry Picker Name Role Phone No Pcp, Na PCP Unavailable Encounter Details Date Type Department Care Team Description 05/17/2017 Anesthesia CA Operating Room Hannah Acevedo DO [address] [facility] [address] [place] [address] [address] [place], [place] [phone] Anesthesia Record Procedure Name Responsible Anesthesia Start Time Anesthesia Stop Time Anesthesiologist CRANIOPLASTY FOR RIGHT SIDE SKULL DEFECT, RETRIEVAL OF BONE FLAP FROM RIGHT ABDOMEN (Right ) No events on file. Meds * No agents on file. * No blood administrations on file. Type Details Placement Removal AV 03/09/17; 1530; L; Arm, Lower 03/09/17 1530 by Leslye Shunt/Jasmeet Park (Bertha), TENZIN magalis Wounds 03/10/17; 1822; Right; Head; Surgical 03/10/17 1822 by Lou (NOT for Incision; sutures, xeroform, telfa, Laura RN Pressure andria Injuries) Wounds 03/10/17; 2309; Abdomen; Surgical 03/10/17 2309 by Lou (NOT for Incision; sutures, telfa, tegaderm TENZIN Sanchez Pressure Injuries) Wounds 03/17/17; 0800; Right; Flank; Ecchymosis 03/17/17 0800 by Consuelo (NOT for TENZIN Hope Pressure Injuries) in this encounter Social History Tobacco Use [...] DO Event [address] [place] [address] [phone] 05/17/2017 Surgery Edgar Bee MD CRANIOPLASTY FOR RIGHT [address] [place] [address] [place] [address] FROM RIGHT ABDOMEN [phone] 05/17/2017 Procedure Pass 05/17/2017 Hospital Edgar Bee MD Brain aneurysm Encounter [address] [place] [address] as of this encounter Visit Diagnoses Not on filein this encounter
--- OUTSIDE RECORDS SUMMARY | 2017-05-07 16:22 | XMS REPORT | Encounter Summary ---
Author Author [facility] Organization [facility] Address Unknown Phone Unavailable Care Team Providers Care Roofing Machine Tender Name Role Phone No Pcp, Na PCP Unavailable Encounter Details Date Type Department Care Team Description 05/01/2017 Prep for Case ADMITTING Edgar Bee MD [address] [place] [address] [address] [place] [address] [phone] Social History Tobacco Use Types Packs/Day Years [...] DO Event [address] [place] [address] [phone] 05/17/2017 Surgery Edgar Bee MD CRANIOPLASTY FOR RIGHT [address] [place] [address] [place] [address] FROM RIGHT ABDOMEN [phone] 05/17/2017 Procedure Pass 05/17/2017 [facility] Edgar Bee MD Brain aneurysm Encounter [address] [facility] [address] [place], [place] [id number] as of this encounter Visit Diagnoses Not on filein this encounter
--- OUTSIDE RECORDS SUMMARY | 2017-05-07 16:22 | XMS REPORT | Encounter Summary ---
Author Author [facility] Organization [facility] Address Unknown Phone Unavailable Care Team Providers Care Processing Engineer Name Role Phone No Pcp, Na PCP Unavailable Encounter Details Date Type Department Care Team Description 05/01/2017 PAC Office Preoperative Assessment Edgar Bee MD Cerebral aneurysm rupture Visit Clinic [address] ([facility]) (Primary Dx) [address] [place] [address] [place] [address] [phone] Social History Tobacco Use Types Packs/Day Years Used Date Current Every Day Smoker Cigarettes 1 30 Smokeless Tobacco: Never Used Alcohol Use Drinks/Week oz/Week Comments No quit 9 years ago Sex Assigned at Date Recorded Not on file as of this encounter Last Filed Vital Signs Vital Sign Reading Time Taken Blood Pressure 180/98 05/01/2017 1:39 PM CAN INTAKE WORKER Pulse 66 05/01/2017 1:39 PM CAN INTAKE WORKER Temperature 36.8 C (98.2 F) 05/01/2017 1:39 PM CAN INTAKE WORKER Respiratory Rate - - Oxygen Saturation 95% 05/01/2017 1:39 PM CAN INTAKE WORKER Inhaled Oxygen - - Concentration Weight 99.8 kg (220 lb) 05/01/2017 1:39 PM CAN INTAKE WORKER Height 175.3 cm (5' 9") 05/01/2017 1:39 PM CAN INTAKE WORKER Body Mass Index 32.49 05/01/2017 1:39 PM CAN INTAKE WORKER in this encounter Functional Status Functional Status [...] impairment: Yes 04/12/2017 as of this encounter Instructions * Pre-Anesthesia Patient Instructions - Miryam Phan RN - 05/01/2017 1: 36 PM CAN INTAKE WORKER GENERAL INFORMATION Before you come to the hospital Make arrangements for a responsible adult to drive you home and stay with you for 24 hours following surgery. Bath/Shower Instructions Take a bath or shower using the special soap given to you in PAC. Use half the bottle the night before, and the other half the morning of your procedure. Use clean towels with each bath or shower. Put on clean clothes after bath or shower. Avoid using lotion and oils. If you are having surgery above the waist, wear a shirt that fastens up the front. Sleep on clean sheets if bath or shower is done the night before procedure. Leave money, credit cards, jewelry, and any other valuables at home. [facility] is not responsible for the loss or breakage of personal items. Remove nail jamaican, makeup and all jewelry (including piercings) before coming to the hospital. The morning of your procedure: brush your teeth and tongue do not smoke do not shave the area where you will have surgery What to bring to the hospital ID/ Insurance Card Plate Keeper card Official documents for legal guardianship Copy of your Living Will, Advanced Directives, and/or Durable Power of Soaking Pit Operator Small bag with a few personal belongings CPAP/BiPAP machine (including all supplies) Walker,cane, or motorized scooter Cases for glasses/hearing aids/contact lens (bring solutions for contacts) Dress in clean, loose, comfortable clothing Eating or drinking before surgery Do not eat or drink anything after 11:00 p.m. the day before your procedure ( including gum, mints, candy, or chewing tobacco) OR follow the specific instructions you were given by your Surgeon. You may have WATER ONLY up to 2 hours before arriving at the hospital. Other instructions: Other instructions Notify your surgeon if: there is a possibility that you are you become ill with a cough, fever, sore throat, nausea, vomiting or flu- like symptoms you have any open wounds/sores that are red, painful, draining, or are new since you last saw the doctor you need to cancel your procedure Notify us at [facility]: if you need to cancel your procedure if you are going to be late You will receive a call between 2:00 - 4:00 p.m. the day before your surgery with your arrival time. If you have not received a call by 4:00 you may call or [phone] after 4:30. Arrival at the [facility]: ? Park in the P5 parking garage located at [address] [place] [address] (Next to the [facility] [address] [facility]). ? [employer]electric Plant Maintainer parking is available in front of [facility] between the hours of 7:00 am and 4:00 pm Saturday through Saturday. ? If parking in the P5 garage, take the east elevators in the parking garage to the second level and walk to the entrance of the [facility]. ? Enter through the 1st floor main entrance and check in with Information Desk. ? You will be contacted by the surgery office between 2:30 pm and 4:30 pm on the last business day before your procedure to advise you of your arrival time. If you do not receive a call, you may call the Preoperative Assessment Clinic to confirm your arrival time. Before 4:30 pm, call [phone], and after 4:30 pm, call [phone]. * Pre-Anesthesia Medication Instructions - Olu William PHARMD - 05/01/2017 1:26 PM CAN INTAKE WORKER We will fax complete medication instructions to [facility] Other information Before surgery, please contact the clinic pharmacist with any medicine updates or questions. E-mail: [email or web address] Before going home from the hospital, please ask your doctor when you should re- start your medicines that were stopped before surgery. in this encounter Plan of Treatment Date Type Specialty Care Team Description 05/03/2017 Anesthesia Hannah Acevedo, DO Event [address] [place], [place] [id number] 05/17/2017 Surgery Edgar Bee MD CRANIOPLASTY FOR RIGHT [address] [place] [address] FROM RIGHT ABDOMEN [phone] 05/17/2017 Procedure Pass 05/17/2017 Hospital Edgar Bee MD Brain aneurysm Encounter [address] [place] [address] [phone] as of this encounter Results * TYPE & SCREEN (NOT CROSSMATCH ELIGIBLE) (05/01/2017 2:35 PM) Component Value Ref Range ABO/RH(D) A POS Antibody Screen NEG Blood Component Type RED CELL GROUP Specimen Performing Laboratory Blood, venous - Blood [facility] [address] [place] [address] * BASIC METABOLIC PANEL (05/01/2017 2:35 PM) Component Value Ref Range Sodium 138 137 [...] Specimen Performing Laboratory Blood [facility] [address] [place] [id number] * CBC (05/01/2017 2:35 PM) Component Value Ref Range White Blood [...] Performing Laboratory Blood [facility] [address] [place] [address] in this encounter Visit Diagnoses Diagnosis Cerebral aneurysm rupture (HCC) - Primary Subarachnoid hemorrhage
--- OUTSIDE RECORDS SUMMARY | 2017-05-07 16:24 | XMS REPORT | Encounter Summary ---
Author Author [facility] Organization [facility] Address Unknown Phone Unavailable Care Team Providers Care Real Estate Administrator Name Role Phone No Pcp, Na PCP Unavailable Reason for Visit * Auth/Cert Status Reason Specialty Diagnoses / Referred By Referred To Procedures Contact Contact Diagnoses HCAP Pneumonia Encounter Details Date Type Department Care Team Description 04/03/2017 [facility] Aram Chiu MD Pneumonia - Encounter [address] 04/12/2017 [place] [address] MS [facility] [phone] [place] [address] [phone] D Jason stroud MD [address] [place] [address] [phone] A Mikey ridley MD [address] [place] [address] [phone] B Pramod thao MD [address] [place] [address] [phone] Social History Tobacco Use Types Packs/Day Years Used Date Current Every Day Smoker 1 30 Sex Assigned at Date Recorded Not on file as of this encounter Last Filed Vital Signs Vital Sign Reading Time Taken Blood Pressure 175/77 04/12/2017 12:49 PM SECONDARY HISTORY TEACHER Pulse 63 04/12/2017 12:49 PM SECONDARY HISTORY TEACHER Temperature 36.3 C (97.4 F) 04/12/2017 12:49 PM SECONDARY HISTORY TEACHER Respiratory Rate - - Oxygen Saturation 95% 04/12/2017 12:49 PM SECONDARY HISTORY TEACHER Inhaled Oxygen - - Concentration Weight 107.1 kg (236 lb 1.8 oz) 04/11/2017 10:30 AM SECONDARY HISTORY TEACHER Height 172.7 cm (5' 8") 04/10/2017 2:24 PM SECONDARY HISTORY TEACHER Body Mass Index 35.9 04/11/2017 10:30 AM SECONDARY HISTORY TEACHER in this encounter Functional Status Functional Status [...] impairment: Yes 04/12/2017 as of this encounter Discharge Summaries * Pramod Chen MD - 04/12/2017 1:22 PM SECONDARY HISTORY TEACHER Formatting of this note may be different from the original. Physician Discharge Summary Name: Naren Mayfield Date Of : 1965 Age: 51 years Admit date: 04/03/2017 Discharge date: 04/12/2017 Attending Physician: greg Service: [facility] E- [id number] Physician Summary completed by: Pramod Chen MD Reason for hospitalization: fever and hypoxia Significant PMH: Past Medical History: Diagnosis Date Cerebral aneurysm rupture (HCC) 03/2017 DM (diabetes mellitus) ([facility]) last A1C is wnl on 03/12/17 Dysphagia ESRD (end stage renal disease) ([facility]) T/TH/S via AV fistula on LUE HLD (hyperlipidemia) HTN (hypertension) Allergies: Review of patient's allergies indicates no active allergies. Admission Physical Exam notable for: General: Alert and response to question appropriately. VS as above. No acute distress . - Head: surgical site healing well, Right frontal fore head - soft, ttp, ? hematoma Eyes: No conjunctival injection. No scleral icterus. Ears, nose, mouth, and throat : No erythema. MMM. No erythema, exudate noted. Neck: Symmetric appearance without crepitus, no obvious mass or noticeable swelling, Lungs: No use of accessory muscles. Clear to auscultation bilaterally without wheezes, rales, or rhonchi. Cardiovascular: Regular rate, S1, S2 normal, no murmurs, clicks, rubs, or gallops appreciated . 2+ and symmetric, all extremities. No edema in BLE. Abdomen: BS+, soft, +ttp to palpation diffusely. Patient had a bulge on RLQ which he reported due to his previous peritoneal dialysis catheter placement however not done Skin: Skin color normal, no obvious evidence of rashes. Musculoskeletal: Normal 5/5 hand-enrollment representative strength and distal strength in BLE. ROM normal. No joints swelling or erythema. Neurologic: Alerted and oriented . 5/5 hand-enrollment representative and distal strenght. Normal ROM. No Sensation grossly intact. No focal weakness. Psych: Alerted and oriented, calm, normal affect Admission Lab/Radiology studies notable for: see the hospital course Brief Hospital Course: The patient was admitted and the following issues were addressed during this hospitalization: (with pertinent details). 51yoM w/ PMH of recent ruptured R MCA aneurysm w/ hematoma and sub-arachnoid hemorrhage s/p clipping, R hemicraniotomy dc'd on 03/26, ESRD on HD, chronic hypoxia (3-4L), COPD, HTN, known L pleural effusion transferred from OSH w/ fever, acute on chronic hypoxia. Hypertensive urgency - volume induced, due to ESRD - given recent ICH/SAH will be more aggressive with blood pressure control - added hydralazine PO and and imdur 04/11/17 - already on losartan, metoprolol, norvasc, clonidine - volume control with increased dose of lasix and HD - patient is asymptomatic HFpEF, acute on chronic/exacerbation - patient has orthopnea/exertional dyspnea,on exam JVD present - all improved after starting lasix - BNP 2400 > 2453 - TTE 04/04/17 Left ventricular diastolic dysfunction. Elevated left atrial pressure. Severely elevated central venous pressure (>15 mm Hg). Mild concentric LVH is seen. The EF is about 60%, The estimated PA systolic pressure is 45-50 mm Hg. - CT chest 04/03/17 Moderate cardiomegaly with pulmonary venous congestion, subtle interlobular septal thickening, and persistent diffuse groundglass opacities suggestive of CHF and pulmonary edema - chest xray 04/10/17 after diuresis and HD showed persistent moderate cardiomegaly with improved pulmonary venous congestion - volume management via HD and lasix 80BID Acute on chronic hypoxic respiratory failure - due to HFpEF - baseline 3-4L NC, but at dc day was able to taper him off to RA - CT on admit shows stable small L pleural effusion, atelectasis and possible pneumonitis - RVP + for influenza B and rhinovirus - urine strep and legionella Ag negative - sputum culture 04/04/17 NORMAL OROPHARYNGEAL EVELIA - blood cultures 04/04/17 NGTD - completed tamiflu and doxy course 5 days S/p MCA aneurysm rupture, hematoma, subarachnoid hemorrhage - CT head 04/03 Previous right pterional craniectomy with increase in size of the adjacent subgaleal fluid collection since 03/22/2017 suggestive of enlarging pseudomeningocele. - neurosurg consulted: no acute neurosurgical intervention, unlikely this is the cause of lethargy - cont on CO for impulsive behavior 2/2 TBI/vascular dementia - cont Keppra for seizure ppx - discussed with neurosurgery: Cranioplasty could be performed near the end of this hospital stay if he is found to be stable for surgical procedure from a medical standpoint. If it is felt more prudent to postpone cranioplasty to a later date we can help facilitate the procedure as an outpatient. This procedure is not an emergency. They will call him to make an appointment Hepatosplenomegaly - CT abd and pelvis 04/03/17: Development of moderate splenomegaly and trace abdominal ascites which may be secondary to portal hypertension.Persistent moderate hepatomegaly which may be enlarged due to chronic passive congestion. Trace ascites - My suspicion is that this is all related to HFpEF (see below) - liver US with doppler wasn't done because patient couldn't lay down - LFTs normal, no prior history of liver disease - liver US should be done as outpatient to assess liver size after optimizing his fluid status - treat the cause Pancytopenia/ Anemia, normocytic - due to hepatosplenomegaly - b12, folate normal - iron studies w/ AoCD and RADHA - soluble transferrin receptor is normal - Haptoglobin in normal - rules out hemolysis - retic count is inappropriately normal - peripheral smear: PANCYTOPENIA., NORMOCYTIC ANEMIA., ABSOLUTELYMPHOCYTOPENIA - s/p 1 PRBC and platelets Pancytopenia/Thrombocytopenia - due to hepatosplenomegaly - heparin induced Ab 04/04 positive, serotonin assay negative, so HIT ruled out - peripheral smear: MODERATE THROMBOCYTOPENIA WITH NORMAL PLATELET MORPHOLOGY ESRD/hyperkalemia - on HD TTS - access LUE AVF - target EDW 103 kg - daily standing weight, strict I&O - renal dosing of medications - renal following Trop elevation - 2/2 poor renal clearance and recent WIRE TWISTER insult - chronically elevated since 03/10 with highest 0.17 - 0.17>0.16>0.15>0.05 on 04/10/17 - EKG NSR, no St changes - TTE 04/04/17: Mild concentric LVH is seen. The EF is about 60%. - TTE 04/10/17: Normal left ventricular systolic function. EF~ 55%, Compared to previous study on 04/04/2017, there is trace pericardial effusion. LV systolic function and PA systolic pressures are similar - patient never had chest pain Dysphagia - APPAREL MERCHANDISER consulted - mild oropharyngeal dysphagia given RHD w/ impulsivity - [facility] soft solid diet and thin liquids Patient will be dc-ed to SNF/rehab in [facility]. Despite HD his blood pressure has been very difficult to control So given his recent ICH/SAH, I chose aggressive BP management strategy So added hydralazine and imdur to his BP meds To help with volume control I added also lasix 80 BID Only HD didn't control his BP well enough to feel safe from ICH standpoint Patient already has an appointment with neurosurgery He was encouraged to [facility] with [facility] or find a PCP in his current location to address and follow up on above mentioned issues Condition at Discharge: Stable Discharge Diagnoses: Hospital Problems Active Problems Subarachnoid bleed (HCC) Acquired skull defect Pneumonia Chronic hypoxemic respiratory failure (HCC) Vascular dementia without behavioral disturbance ESRD (end stage renal disease) on dialysis (HCC) Acute blood loss as cause of postoperative anemia Normocytic anemia Renovascular hypertension Influenza B Rhinovirus infection COPD with hypoxia (HCC) Oropharyngeal dysphagia Pancytopenia (HCC) Troponin level elevated TBI (traumatic brain injury) (HCC) Surgical Procedures: None Significant Diagnostic Studies and Procedures: noted in brief hospital course Consults: Nephrology, Neurosurgery and Psychiatry Patient Disposition: Fpc Facility Patient instructions/medications: DIET MECHANICAL SOFT(DYSPHAGIA LVL 2) Activity as Tolerated It is important to keep increasing your activity level after you leave the hospital. Moving around can help prevent blood clots, lung infection (pneumonia ) and other problems. Gradually increasing the number of times you are up moving around will help you return to your normal activity level more quickly. Continue to increase the number of times you are up to the chair and walking daily to return to your normal activity level. Begin to work toward your normal activity level at discharge Activity as Tolerated It is important to keep increasing your activity level after you leave the hospital. Moving around can help prevent blood clots, lung infection (pneumonia ) and other problems. Gradually increasing the number of times you are up moving around will help you return to your normal activity level more quickly. Continue to increase the number of times you are up to the chair and walking daily to return to your normal activity level. Begin to work toward your normal activity level at discharge Report These Signs and Symptoms Please contact your doctor if you have any of the following symptoms: temperature higher than 100 degrees F, uncontrolled pain, persistent nausea and/ or vomiting, difficulty breathing, chest pain, severe abdominal pain, headache, unable to urinate, unable to have bowel movement or drainage with a foul odor Questions About Your Stay For questions or concerns regarding your hospital stay. Call [phone] Discharging attending physician: PRAMOD CHEN [[id number]] Complete if patient is going to a Fpc Facility I certify that the patient requires skilled care Yes The patient's stay is expected to be less than 30 days Yes I will be in charge of patient in senior care No PATIENT GOING TO SKILLED NSG FACILITY I certify that the patient requires skilled care Yes The patient's stay is expected to be less than 30 days Yes I will be in charge of patient in senior care No Report These Signs and Symptoms Please contact your doctor if you have any of the following symptoms: temperature higher than 100 degrees F, uncontrolled pain, persistent nausea and/ or vomiting, difficulty breathing, chest pain, severe abdominal pain, headache, unable to urinate, unable to have bowel movement or drainage with a foul odor Questions About Your Stay For questions or concerns regarding your hospital stay. Call [phone] Discharging attending physician: PRAMOD CHEN [[id number]] Complete if patient is going to a Fpc Facility I certify that the patient requires skilled care Yes The patient's stay is expected to be less than 30 days Yes I will be in charge of patient in senior care No Renal Diet Your diet will need to be low in potassium and phosphorous. Keep track of your sodium intake and limit it to 2000mg (milligrams) per day. If you have any questions regarding your diet at home, you may contact a dietitian at [phone]. Current Discharge Medication List START taking these medications Details furosemide (LASIX) 20 mg tablet Take 4 tablets by mouth twice daily for 30 days. Qty: 240 tablet, Refills: 0 PRESCRIPTION TYPE: Print hydrALAZINE (APRESOLINE) 50 mg tablet Take 1 tablet by mouth three times daily for 30 days. Qty: 90 tablet, Refills: 0 PRESCRIPTION TYPE: Normal isosorbide mononitrate SR (IMDUR) 60 mg tablet Take 1 tablet by mouth at bedtime daily. Qty: 90 tablet, Refills: 3 PRESCRIPTION TYPE: Print CONTINUE these medications which have been CHANGED or REFILLED Details cloNIDine (CATAPRESS) 0.2 mg tablet Take 1 tablet by mouth three times daily. Qty: 180 tablet, Refills: 3 PRESCRIPTION TYPE: Print metoprolol XL (TOPROL XL) 100 mg extended release tablet Take 1 tablet by mouth twice daily. PRESCRIPTION TYPE: No Print CONTINUE these medications which have NOT CHANGED Details acetaminophen (TYLENOL) 325 mg tablet Take 2 tablets by mouth every 4 hours as needed. Refills: 0 PRESCRIPTION TYPE: OTC albuterol (VENTOLIN HFA) 90 mcg/actuation inhaler Inhale 2 puffs by mouth into the lungs every 4 hours as needed for Wheezing or Shortness of Breath. Shake well before use. PRESCRIPTION TYPE: Historical Med amLODIPine (NORVASC) 10 mg tablet Take 10 mg by mouth daily. PRESCRIPTION TYPE: Historical Med atorvastatin (LIPITOR) 10 mg tablet Take 10 mg by mouth at bedtime daily. PRESCRIPTION TYPE: Historical Med calcium acetate (PHOSLO) 667 mg capsule Take two tablets with meals and take one with snacks PRESCRIPTION TYPE: Historical Med carboxymethylcellulose (REFRESH PLUS) 0.5 % dpet Apply 1 drop to both eyes daily as needed. PRESCRIPTION TYPE: Historical Med doxazosin (CARDURA) 8 mg tablet Take 8 mg by mouth at bedtime daily. PRESCRIPTION TYPE: Historical Med ferric citrate 210 mg iron tab Take 210 mg by mouth twice daily. PRESCRIPTION TYPE: Historical Med Levetiracetam 1,000 mg tab Take 1,500 mg by mouth at bedtime daily. PRESCRIPTION TYPE: Historical Med losartan(+) (COZAAR) 100 mg tablet Take 100 mg by mouth daily. PRESCRIPTION TYPE: Historical Med melatonin 3 mg tab Take 1 tablet by mouth at bedtime daily. PRESCRIPTION TYPE: No Print QUEtiapine (SEROQUEL) 50 mg tablet Take 1 tablet by mouth twice daily. PRESCRIPTION TYPE: No Print senna/docusate (SENOKOT-S) 8.8/50 mg /10 mL solution Take 10 mL by mouth twice daily. PRESCRIPTION TYPE: OTC The following medications were removed from your list. This list includes medications discontinued this stay and those removed from your prior med list in our system heparin (porcine) PF 5,000units/0.5mL injection syringe HEPARIN SODIUM,PORCINE (HEPARIN (PORCINE)) 5,000 unit/mL injection methylcellulose (GONIOSOL) 2.5 % ophthalmic solution nystatin (MYCOSTATIN) 100,000 units/mL oral suspension Scheduled appointments: May 01, 2017 11:30 AM SECONDARY HISTORY TEACHER Return Patient with Edgar Bee MD [facility] ([facility]) 2nd Floor [address] [facility] Office [facility] [id number] Pending items needing follow up: none Signed: Pramod Chen MD 04/12/2017 cc: Primary Care Physician: Na No PCP Verified Referring physicians: No Pcp, Na Additional provider(s): in this encounter Medications at Time of Discharge [...] capsule meals and take one with snacks carboxymethylcellulose Apply 1 drop to both eyes (REFRESH PLUS) 0.5 % dpet daily as needed. cloNIDine (CATAPRESS) 0.2 Take 1 tablet by mouth 180 tablet 3 2017 mg tablet three times daily. doxazosin (CARDURA) 8 mg Take 8 mg by mouth at tablet bedtime daily. ferric citrate 210 mg Take 210 mg by mouth iron tab twice daily. furosemide (LASIX) 20 mg Take 4 tablets by mouth 240 tablet 0 201705/12/2017 tablet twice daily for 30 days. hydrALAZINE (APRESOLINE) Take 1 tablet by mouth 90 tablet 0 201705/11/2017 50 mg tablet three times daily for 30 days. isosorbide mononitrate SR Take 1 tablet by mouth at 90 tablet 3 2017 (IMDUR) 60 mg tablet bedtime daily. Levetiracetam 1,000 mg Take 1,500 mg by mouth at tab bedtime daily. losartan(+) (COZAAR) 100 Take 100 mg by mouth mg tablet daily. melatonin 3 mg tab Take 1 tablet by mouth at 03/26/2017 bedtime daily. metoprolol XL (TOPROL XL) Take 1 tablet by mouth 04/10/2017 100 mg extended release twice daily. tablet QUEtiapine (SEROQUEL) 50 Take 1 tablet by mouth 03/26/2017 mg tablet twice daily. senna/docusate Take 10 mL by mouth twice 03/26/2017 (SENOKOT-S) 8.8/50 mg /10 daily. mL solution as of this encounter Progress Notes * Pramod Chen MD - 04/12/2017 1:22 PM SECONDARY HISTORY TEACHER Formatting of this note may be different from the original. Name: Naren Mayfield Admission Date: 04/03/2017 Today's Date: 04/12/17 LOS: 9 ASSESSMENT AND PLAN 51yoM w/ PMH of recent ruptured R MCA aneurysm w/ hematoma and sub-arachnoid hemorrhage s/p clipping, R hemicraniotomy dc'd on 03/26, ESRD on HD, chronic hypoxia (3-4L), COPD, HTN, known L pleural effusion transferred from OSH w/ fever, acute on chronic hypoxia. Hypertensive urgency - volume induced, due to ESRD - given recent ICH/SAH will be more aggressive with blood pressure control - added hydralazine PO and and imdur 04/11/17 - already on losartan, metoprolol, norvasc, clonidine - volume control with increased dose of lasix and HD - patient is asymptomatic HFpEF, acute on chronic/exacerbation - patient has orthopnea/exertional dyspnea,on exam JVD present - all improved after starting lasix - BNP 2400 > 2453 - TTE 04/04/17 Left ventricular diastolic dysfunction. Elevated left atrial pressure. Severely elevated central venous pressure (>15 mm Hg). Mild concentric LVH is seen. The EF is about 60%, The estimated PA systolic pressure is 45-50 mm Hg. - CT chest 04/03/17 Moderate cardiomegaly with pulmonary venous congestion, subtle interlobular septal thickening, and persistent diffuse groundglass opacities suggestive of CHF and pulmonary edema - chest xray 04/10/17 after diuresis and HD showed persistent moderate cardiomegaly with improved pulmonary venous congestion - volume management via HD and lasix 80BID Chronic hypoxic respiratory failure - due to HFpEF - on baseline 3-4L NC, but at tdc day was able to taper him off to RA - CT on admit shows stable small L pleural effusion, atelectasis and possible pneumonitis - RVP + for influenza B and rhinovirus - urine strep and legionella Ag negative - sputum culture 04/04/17 NORMAL OROPHARYNGEAL EVELIA - blood cultures 04/04/17 NGTD - completed tamiflu and doxy course 5 days S/p MCA aneurysm rupture, hematoma, subarachnoid hemorrhage - CT head 04/03 Previous right pterional craniectomy with increase in size of the adjacent subgaleal fluid collection since 03/22/2017 suggestive of enlarging pseudomeningocele. - neurosurg consulted: no acute neurosurgical intervention, unlikely this is the cause of lethargy - cont on CO for impulsive behavior 2/2 TBI/vascular dementia - cont Keppra for seizure ppx - discussed with neurosurgery: Cranioplasty could be performed near the end of this hospital stay if he is found to be stable for surgical procedure from a medical standpoint. If it is felt more prudent to postpone cranioplasty to a later date we can help facilitate the procedure as an outpatient. This procedure is not an emergency. They will call him to make an appointment Hepatosplenomegaly - CT abd and pelvis 04/03/17: Development of moderate splenomegaly and trace abdominal ascites which may be secondary to portal hypertension.Persistent moderate hepatomegaly which may be enlarged due to chronic passive congestion. Trace ascites - My suspicion is that this is all related to HFpEF (see below) - liver US with doppler wasn't done because patient couldn't lay down - LFTs normal - no prior history of liver disease - liver US should be done as outpatient to assess liver size after optimizing his fluid status - treat the cause Pancytopenia/ Anemia, normocytic - due to hepatosplenomegaly - b12, folate normal - iron studies w/ AoCD and RADHA - soluble transferrin receptor is normal - Haptoglobin in normal - rules out hemolysis - retic count is inappropriately normal - peripheral smear: PANCYTOPENIA., NORMOCYTIC ANEMIA., ABSOLUTELYMPHOCYTOPENIA - s/p 1 PRBC and platelets Pancytopenia/Thrombocytopenia - due to hepatosplenomegaly - heparin induced Ab 04/04 positive, serotonin assay negative - peripheral smear: MODERATE THROMBOCYTOPENIA WITH NORMAL PLATELET MORPHOLOGY ESRD/hyperkalemia - on HD TTS - access LUE AVF - target EDW 103 kg - daily standing weight, strict I&O - renal dosing of medications - renal following Trop elevation - 05/10 poor renal clearance and recent WIRE TWISTER insult - chronically elevated since 03/10 with highest 0.17 - 0.17>0.16>0.15>0.05 on 04/10/17 - EKG NSR, no St changes - TTE 04/04/17: Mild concentric LVH is seen. The EF is about 60%. - TTE 04/10/17: Normal left ventricular systolic function. EF~ 55%, Compared to previous study on 04/04/2017, there is trace pericardial effusion. LV systolic function and PA systolic pressures are similar Dysphagia - APPAREL MERCHANDISER consulted - mild oropharyngeal dysphagia given RHD w/ impulsivity - [facility] soft solid diet and thin liquids Patient will be dc-ed to SNF/rehab in [facility]. Despite HD his blood pressure has been very difficult to control So given his recent ICH/SAH, I chose aggressive BP management strategy So added hydralazine and imdur to his BP meds To help with volume control I added also lasix 80 BID Only HD didn't control his BP well enough to feel safe from ICH standpoint Patient already has an appointment with neurosurgery The above mentioned plan and the hospital course was discussed in detail with the patient Care coordination was discussed with case preparer and liner and social work nurse Imaging tests (performed since current admission) results discussed with the patient - reccomended outpatint follow up to address abnormal findings on non- emergent basis Patient agrees and verbalizes understanding PT/OT recommendations discussed with the patient Consultants recommendations discussed with patient Discharge instructions: 1. Verbal and written instructions were given and discussed with the patient. 2. Recommended follow up with primary care physician and/or consultants/ subspecialists in 1-2 weeks . 3. Please return immediately to emergency room or call your primary care physician if you get worse, you do not get better or you develop any new or concerning symptoms. 4. Do not drive or operate machinary while taking opioids/pain killers. 5. I discussed the medications with the patient. I gave him/her signs and symptoms that could indicate an adverse reaction. I have advised her/him to limit their activities until they can see how they respond to the medication. Time spent on dc 35 minutes . SUBJECTIVE Patient seen and examined Overnight: No interval events. During this AM visit, patient states that breathing improved after HD, no other compalints ROS: >>> Denies fever/chills >>> Denies chest pain >>> Denies N/V/D >>> Denies dizziness/lightheadedness OBJECTIVE VITAL SIGNS BP: 175/77 (04/12 1248) Temp: 36.3 C (97.4 F) (04/12 1248) Pulse: 63 (04/12 1248) Respirations: 20 PER MINUTE (04/12 1248) SpO2: 95 % (04/12 1248) O2 Delivery: None (Room Air) (04/12 1248) PHYSICAL EXAM General: easily distractedVS as above. No acute distress . Helmet in place Eyes: No conjunctival injection. Pupil equal on both sizeNo scleral icterus. Ears, nose, mouth, and throat : No erythema. MMM. No erythema, exudate noted. Neck: Symmetric appearance without crepitus, no obvious mass or noticeable swelling, Lungs: No use of accessory muscles. Clear to auscultation bilaterally without wheezes, rales, or rhonchi. Cardiovascular: Regular rate, S1, S2 normal, no murmurs, clicks, rubs, or gallops appreciated . 2+ and symmetric, all extremities. No edema in BLE. Abdomen: BS+, soft, ND, no guarding or rigidity. Nontender to palpation. Skin: Skin color normal, no obvious evidence of rashes. Musculoskeletal: Normal 5/5 hand-enrollment representative strength and distal strength in BLE. ROM normal. No joints swelling or erythema/tenderness Neurologic: Alerted and oriented x 3. 5/5 hand-enrollment representative and distal strenght. Normal ROM. No Sensation grossly intact. No focal weakness. Psych:Alerted and oriented, calm, normal affect LAB REVIEW Recent Labs 04/11/17 0428 04/12/17 0803 WBC 3.8* 4.8 HGB 7.4* 7.7* HCT 21.4* 23.1* PLTCT 157 193 MCV 88.5 90.3 Recent Labs 04/11/17 0428 04/12/17 0803 NA 131* 132* K 4.8 4.8 CL 95* 96* CO2 24 26 BUN 64* 46* CR 11.52* 9.55* GAP 12 10 MG 2.0 1.9 PO4 3.8 3.6 GFR 5* 6* ALBUMIN 3.8 3.9 TOTBILI 0.5 0.7 AST 15 14 ALT 8 7 MEDICATIONS Scheduled Meds: Continuous Infusions: PRN and Respiratory Meds: RADIOLOGY AND OTHER DIAGNOSTIC PROCEDURES REVIEW As in A/P Radiology and Other Diagnostic Procedures Review: 04/12/2017 Pertinent radiology reviewed. * Andrew Barnes - 04/12/2017 1:22 PM SECONDARY HISTORY TEACHER Formatting of this note may be different from the original. General Progress Note Name: Naren Mayfield Today's Date: 04/12/2017 Admission Date: 04/03/2017 LOS: 9 days Assessment/Plan: Active Problems: Subarachnoid bleed (HCC) Acquired skull defect Pneumonia Chronic hypoxemic respiratory failure (HCC) Vascular dementia without behavioral disturbance ESRD (end stage renal disease) on dialysis (HCC) Acute blood loss as cause of postoperative anemia Normocytic anemia Renovascular hypertension Influenza B Rhinovirus infection COPD with hypoxia (HCC) Oropharyngeal dysphagia Pancytopenia (HCC) Troponin level elevated TBI (traumatic brain injury) (HCC) Naren Mayfield is a 51 y.o. male with ESRD admitted with influenza. 1. ESRD -on HD TTS, last HD session unknown -access LUE AVF -target EDW 103 kg 2. Influenza 3. Hx of SAH with residual neurologic deficits 4. Anemia of CKD with iron deficiency 5. Secondary hyperparathyroidism. 6. HTN with component of volume dependence Recommendations: -patient may discharge and resume HD on Saturday in [place] -his HTN is volume dependent and having regular TIW HD would benefit him significiantly Andrew Barnes MD PGY-4 Nephrology Fellow Pager [phone] Subjective Naren Mayfield is a 51 y.o. male. Patient seen this morning, was not discharged yesterday due to HTN and his recent SAH. He reports planning for discharge later today. Medications Scheduled Meds: amLODIPine (NORVASC) tablet 10 mg 10 mg Oral QDAY atorvastatin (LIPITOR) tablet 10 mg 10 mg Oral QHS calcium acetate (PHOSLO) capsule 1,334 mg 1,334 mg Oral TID w/ meals cloNIDine (CATAPRESS) tablet 0.2 mg 0.2 mg Oral TID doxazosin (CARDURA) tablet 8 mg 8 mg Oral QHS epoetin carine (PROCRIT) injection 20,000 Units 20,000 Units Intravenous Once per day on Sat furosemide (LASIX) tablet 80 mg 80 mg Oral BID(12-23) hydrALAZINE (APRESOLINE) tablet 50 mg 50 mg Oral TID isosorbide mononitrate SR (IMDUR) tablet 60 mg 60 mg Oral QHS levETIRAcetam (KEPPRA) tablet 1,500 mg 1,500 mg Oral QDAY losartan (COZAAR) tablet 100 mg 100 mg Oral QHS melatonin tablet 3 mg 3 mg Oral QHS metoprolol XL (TOPROL XL) tablet 100 mg 100 mg Oral BID nicotine (NICODERM CQ STEP 3) 7 mg/day patch 1 patch 1 patch Transdermal QDAY pantoprazole (PROTONIX) injection 40 mg 40 mg Intravenous BID(02-26) senna/docusate (SENOKOT-S) tablet 2 tablet 2 tablet Oral BID sodium chloride (SEA MIST) 0.65 % nasal spray 1-2 spray 1-2 spray Each Nostril TID Continuous Infusions: PRN and Respiratory Meds:acetaminophen Q4H PRN, albuterol 0.5% Q4H PRN, hydrALAZINE Q4H PRN, ipratropium bromide Q4H PRN, LORazepam Q6H PRN, nicotine polacrilex Q1H PRN, polyethylene glycol 3350 BID PRN, sodium chloride 0.9% (NS) IP Dialysis PRN, sodium chloride 0.9% (NS) IP Dialysis PRN, sodium chloride 0.9 % (NS) IP Dialysis PRN, sodium chloride 0.9% (NS) IP Dialysis PRN Review of Systems: Denies fever, soa, and chest pain Objective: Vital Signs: Last Filed Vital Signs: 24 Hour Range BP: 175/77 (04/12 1248) Temp: 36.3 C (97.4 F) (04/12 1248) Pulse: 63 (04/12 1248) Respirations: 20 PER MINUTE (04/12 1248) SpO2: 95 % (04/12 1248) O2 Delivery: None (Room Air) (04/12 1248) BP: (146-185)/(62-115) Temp: [36.1 C (97 F)-36.9 C (98.5 F)] Pulse: [61-78] Respirations: [18 PER MINUTE-22 PER MINUTE] SpO2: [92 %-96 %] O2 Delivery: None (Room Air) Intensity Pain Scale 0-10 (Pain 1): 2 (04/12/17 0930) Vitals: 04/10/17 1424 04/11/17 0745 04/11/17 1030 Weight: 107.5 kg (237 lb) 109.8 kg (242 lb 1 oz) 107.1 kg (236 lb 1.8 oz) Intake/Output Summary: (Last 24 hours) Intake/Output Summary (Last 24 hours) at 04/12/17 1342 Last data filed at 04/12/17 0926 Gross per 24 hour Intake 596 ml Output 75 ml Net 521 ml Stool Occurrence: 1 Physical Exam Gen: Alert and Oriented, No Acute Distress HEENT: Sclera normal, wearing helment CV: no JVD, S1 and S2 normal, no rubs, murmurs or gallops Pulm: Clear to Auscultation bilateral, slightly diminished GI: BS+ x4, non-tender to palpation Neuro: facial droop, memory impaired Ext: trace edema, nontender Skin: no rash, dry Access: LUE AVF with good thrill Lab Review 24-hour labs: Results for orders placed or performed during the hospital encounter of (from the past 24 hour(s)) BNP (B-TYPE NATRIURETIC PEPTI) Collection Time: 04/11/17 3:13 PM Result Value Ref Range B Type Natriuretic Peptide 2453.0 (H) 0 - 100 PG/ML CBC AND DIFF Collection Time: 04/12/17 8:03 AM Result Value Ref Range White Blood Cells 4.8 [...] Basophil Count 0.00 0 - 0.20 K/UL COMPREHENSIVE METABOLIC PANEL Collection Time: 04/12/17 8:03 AM Result Value Ref Range Sodium 132 (L) 137 [...] 12 eGFR Non 6 (L) >60 mL/min eGFR 7 (L) >60 mL/min MAGNESIUM Collection Time: 04/12/17 8:03 AM Result Value Ref Range Magnesium 1.9 1.6 - 2.6 mg/dL PHOSPHORUS Collection Time: 04/12/17 8:03 AM Result Value Ref Range Phosphorus 3.6 2.0 - 4.0 MG/DL Point of Care Testing (Last 24 hours) Glucose: (!) 111 (04/12/17 0803) Radiology and other Diagnostics Review: Pertinent radiology reviewed. Andrew Barnes Pager [phone] Associated attestation - Lety Vallejo MD - 04/12/2017 6:16 PM SECONDARY HISTORY TEACHER I personally performed the rubin portions of the visit, discussed case with fellow Dr. Barnes and concur with his documentation of history, physical exam, assessment, and treatment plan unless otherwise noted. * Kayy Greene RN - 04/12/2017 12:45 PM SECONDARY HISTORY TEACHER Naren Mayfield discharged on 04/12/2017. . Discharge instructions reviewed with patient. Valuables returned: Personal Items / Valuables: Valuables/Belongings sent home with family/friends. Home medications: . Functional assessment at discharge complete: Yes . Pt discharged to SNF. Transportation scheduled for 1330. Patient is ready for discharge, pt verbalized understanding of d/c instructions. * Jordyn Lopez - 04/12/2017 10:00 AM SECONDARY HISTORY TEACHER CLINICAL NUTRITION Clinical Nutrition Re-Evaluation Summary Nutrition Assessment of Patient: 51yoM w/ PMH of recent ruptured R MCA aneurysm w/ hematoma and sub-arachnoid hemorrhage s/p clipping, R hemicraniotomy dc'd on 03/26, ESRD on HD, chronic hypoxia (3-4L), COPD, HTN, known L pleural effusion transferred from OSH w/ fever, acute on chronic hypoxia. Pt appears to be eating well, 50-100% of ~3 meals eaten and 100% of breakfast this AM. Wt appears to fluctuate over the past month but likely r/t fluctuations with HD. Current wt 107 kg, obese with trace edema. Na 132, K+ and phos WNL. No pressure wounds. On low potassium diet. Note Swallow eval 04/03 found mild dysphagia with recs for [facility] soft diet and thin liquids, though no [facility] soft restriction in place on diet order. Note pt plans to discharge to SNF today. Deem pt not at nutrition risk and will re- eval per protocol. Recommendation: Renal dialysis diet with texture per [employer] recs ([facility] soft solids and thin liquids per 04/03 eval) Jordyn Devi, MS, RD, LD Pager *[phone] * Adrián Potts, PT - 04/12/2017 10:00 AM SECONDARY HISTORY TEACHER PHYSICAL THERAPY NOTE Discussed D/C plan with SW and OT; pt is to D/C today at 1330. Observed pt ambulating around room under supervision of CO. PT will continue to follow for any needs. Therapist: Adrián Potts, PT, DPT Date: 04/12/2017 * Tennille Marin, RT - 04/11/2017 10:02 PM SECONDARY HISTORY TEACHER Formatting of this note may be different from the original. RESPIRATORY THERAPY ADULT PROTOCOL EVALUATION RESPIRATORY PROTOCOL PLAN Medications Albuterol/Ipratropium: Neb PRN Note: If indicated by [...] use of bronchodilator (AM) * Surgical Hx: No surgery OR last surgery > 6 weeks ago OR trach/stoma (BA) * Chest X-Ray: Clear OR not available * PFT/Oxygenation: FEV1, PEFR < 70% OR Pa02 < 70 RA OR Sp02 <92% RA OR Fi02 > 0.21 to keep Sp02 > 92% OR < 24 hours post-op (02 & oxim) OR chronic C02 retention (C02) Patient Assessment * Respiratory Pattern: Regular pattern and rate OR good chest excursion with deep breathing * Breath Sounds: Crackles (no CHF) (LE) OR crackles (no CHF) with ineffective cough (AC) * Cough / Sputum: Strong, effective cough OR nonproductive * Mental Status: Alert, oriented, cooperative * Activity Level: Ambulatory with assistance Priority Index Total Points: 8 Points * Priority Index: 1+ PRIORITY INDEX GUIDELINES* Priority Points 1 0-9 points 2 9-18 points 3 > 18 points + Pulm Dx or Home Rx *Higher points indicate higher acuity. Therapist: Tennille Marin, RT Date: 04/11/2017 Rubin AC=Airway clearance AM=Aerosolized medication BA=[place] aerosol DB&C=Deep breathe & cough FEV1=Forced expiratory volume in first second) IC=Inspiratory capacity LE=Lung expansion MDI=Metered dose inhaler Neb=Nebulizer O2=Oxygen Oxim=Oximetry PEFR=Peak expiratory flow rate DISASTER RECOVERY SPECIALIST=Rapid Response Team * Pramod Cehn MD - 04/11/2017 8:19 PM SECONDARY HISTORY TEACHER Formatting of this note may be different from the original. Name: Naren Mayfield Admission Date: 04/03/2017 Today's Date: 04/11/17 LOS: 8 ASSESSMENT AND PLAN 51yoM w/ PMH of recent ruptured R MCA aneurysm w/ hematoma and sub-arachnoid hemorrhage s/p clipping, R hemicraniotomy dc'd on 03/26, ESRD on HD, chronic hypoxia (3-4L), COPD, HTN, known L pleural effusion transferred from OSH w/ fever, acute on chronic hypoxia. Hypertensive urgency - volume induced, due to ESRD - given recent ICH/SAH will be more aggressive with blood pressure control - added hydralazine PO and and imdur 04/11/17 - already on losartan, metoprolol, norvasc, clonidine - volume control with increased dose of lasix and HD - patient is asymptomatic HFpEF, acute on chronic/exacerbation - patient has orthopnea/exertional dyspnea,on exam JVD present - all improved after starting lasix - BNP 2400 > 2453 - CT chest 04/03/17 Moderate cardiomegaly with pulmonary venous congestion, subtle interlobular septal thickening, and persistent diffuse groundglass opacities suggestive of CHF and pulmonary edema. - TTE 04/04/17 Left ventricular diastolic dysfunction. Elevated left atrial pressure. Severely elevated central venous pressure (>15 mm Hg). Mild concentric LVH is seen. The EF is about 60%, The estimated PA systolic pressure is 45-50 mm Hg. - volume management via HD and lasix 80BID Chronic hypoxic respiratory failure - due to HFpEF - on baseline 3-4L NC - CT on admit shows stable small L pleural effusion, atelectasis and possible pneumonitis - RVP + for influenza B and rhinovirus - urine strep and legionella Ag negative - sputum culture 04/04/17 NORMAL OROPHARYNGEAL EVELIA - blood cultures 04/04/17 NGTD - cont tamiflu for 5 days total 04/04 - cont doxy given elevated pro-calcitonin for 5 days 04/04 - cont albuterol, ipratropium S/p MCA aneurysm rupture, hematoma, subarachnoid hemorrhage - CT head 04/03 Previous right pterional craniectomy with increase in size of the adjacent subgaleal fluid collection since 03/22/2017 suggestive of enlarging pseudomeningocele. - neurosurg consulted: no acute neurosurgical intervention, unlikely this is the cause of lethargy - cont on CO for impulsive behavior 2/2 TBI/vascular dementia - cont Keppra for seizure ppx - discussed with neurosurgery: Cranioplasty could be performed near the end of this hospital stay if he is found to be stable for surgical procedure from a medical standpoint. If it is felt more prudent to postpone cranioplasty to a later date we can help facilitate the procedure as an outpatient. This procedure is not an emergency. They will call him to make an appointment Hepatosplenomegaly - CT abd and pelvis 04/03/17: Development of moderate splenomegaly and trace abdominal ascites which may be secondary to portal hypertension.Persistent moderate hepatomegaly which may be enlarged due to chronic passive congestion. Trace ascites - My suspicion is that this is all related to HFpEF (see below) - liver US with doppler wasn't done because patient couldn't lay down - LFTs normal - no prior history of liver disease - liver US should be done as outpatient to assess liver size after optimizing his fluid status - treat the cause Pancytopenia/ Anemia, normocytic - due to hepatosplenomegaly - b12, folate normal - iron studies w/ AoCD and RADHA - soluble transferrin receptor is normal - Haptoglobin in normal - rules out hemolysis - retic count is inappropriately normal - peripheral smear: PANCYTOPENIA., NORMOCYTIC ANEMIA., ABSOLUTELYMPHOCYTOPENIA - s/p 1 PRBC and platelets Pancytopenia/Thrombocytopenia - due to hepatosplenomegaly - heparin induced Ab 04/04 positive, serotonin assay negative - peripheral smear: MODERATE THROMBOCYTOPENIA WITH NORMAL PLATELET MORPHOLOGY ESRD/hyperkalemia - on HD TTS - access LUE AVF - target EDW 103 kg - daily standing weight, strict I&O - renal dosing of medications - renal following Trop elevation - 2/2 poor renal clearance and recent WIRE TWISTER insult - chronically elevated since 03/10 with highest 0.17 - 0.17>0.16>0.15>0.05 on 04/10/17 - EKG NSR, no St changes - TTE 04/04/17: Mild concentric LVH is seen. The EF is about 60%. - TTE 04/10/17: Normal left ventricular systolic function. EF~ 55%, Compared to previous study on 04/04/2017, there is trace pericardial effusion. LV systolic function and PA systolic pressures are similar Dysphagia - [employer] consulted - mild oropharyngeal dysphagia given RHD w/ impulsivity - Mech soft solid diet and thin liquids Because of hypertensive urgency his dc is cancelled I had detailed discussion with the patient why I want to better control his BP In the meantime, increased lasix dose, added hydralazine and imdur for BP control BNP and chest xray repeated Total time (reviewing and writing notes, interdisciplinary rounds with the nurse , case preparer and liner and the social work nurse, discussion with treasury management sales consultant services) spent 35 minutes of which > 50% was spent face to face with the patient in care coordination and bedside counseling (explaining treatment options, disease processes, laboratory/imaging results, prognosis, risks and benefits of treatment options, medication side effects, importance of compliance with treatment, risk factor reduction, follow up with primary care physician). SUBJECTIVE Patient seen and examined multiple times, first in the morning in HD Overnight: No interval events. During this AM visit, patient states that breathing improved after HD, no other compalints ROS: >>> Denies fever/chills >>> Denies chest pain >>> Denies N/V/D >>> Denies dizziness/lightheadedness OBJECTIVE VITAL SIGNS BP: 153/75 (04/11 1949) Temp: 36.7 C (98 F) (04/11 1911) Pulse: 78 (04/11 1949) Respirations: 20 PER MINUTE (04/11 1911) SpO2: 94 % (01/04 1912) O2 Delivery: Nasal Cannula (04/11 1911) SpO2 Pulse: 60 (04/11 1030) PHYSICAL EXAM General: easily distractedVS as above. No acute distress . Helmet in place Eyes: No conjunctival injection. Pupil equal on both sizeNo scleral icterus. Ears, nose, mouth, and throat : No erythema. MMM. No erythema, exudate noted. Neck: Symmetric appearance without crepitus, no obvious mass or noticeable swelling, Lungs: No use of accessory muscles. Clear to auscultation bilaterally without wheezes, rales, or rhonchi. Cardiovascular: Regular rate, S1, S2 normal, no murmurs, clicks, rubs, or gallops appreciated . 2+ and symmetric, all extremities. No edema in BLE. Abdomen: BS+, soft, ND, no guarding or rigidity. Nontender to palpation. Skin: Skin color normal, no obvious evidence of rashes. Musculoskeletal: Normal 5/5 hand-enrollment representative strength and distal strength in BLE. ROM normal. No joints swelling or erythema/tenderness Neurologic: Alerted and oriented x 3. 5/5 hand-enrollment representative and distal strenght. Normal ROM. No Sensation grossly intact. No focal weakness. Psych:Alerted and oriented, calm, normal affect LAB REVIEW Recent Labs 04/10/1742404/11/17427 WBC 3.4* 3.8* HGB 7.8* 7.4* HCT 22.0* 21.4* PLTCT 135* 157 MCV 90.2 88.5 Recent Labs 04/10/17 0425 04/11/17427 NA 133* 131* K 4.5 4.8 CL 96* 95* CO2 25 24 BUN 50* 64* CR 9.67* 11.52* GAP 12 12 MG 1.9 2.0 PO4 3.4 3.8 GFR 6* 5* ALBUMIN 3.6 3.8 TOTBILI 0.5 0.5 AST 14 15 ALT 10 8 MEDICATIONS Scheduled Meds: amLODIPine (NORVASC) tablet 10 mg 10 mg Oral QDAY atorvastatin (LIPITOR) tablet 10 mg 10 mg Oral QHS calcium acetate (PHOSLO) capsule 1,334 mg 1,334 mg Oral TID w/ meals cloNIDine (CATAPRESS) tablet 0.1 mg 0.1 mg Oral TID doxazosin (CARDURA) tablet 8 mg 8 mg Oral QHS doxycycline (VIBRAMYCIN) tablet 100 mg 100 mg Oral BID epoetin carine (PROCRIT) injection 20,000 Units 20,000 Units Intravenous Once per day on Sat furosemide (LASIX) tablet 60 mg 60 mg Oral BID(-) hydrALAZINE (APRESOLINE) tablet 50 mg 50 mg Oral TID isosorbide mononitrate SR (IMDUR) tablet 60 mg 60 mg Oral QHS levETIRAcetam (KEPPRA) tablet 1,500 mg 1,500 mg Oral QDAY losartan (COZAAR) tablet 100 mg 100 mg Oral QHS melatonin tablet 3 mg 3 mg Oral QHS metoprolol XL (TOPROL XL) tablet 100 mg 100 mg Oral BID nicotine (NICODERM CQ STEP 3) 7 mg/day patch 1 patch 1 patch Transdermal QDAY pantoprazole (PROTONIX) injection 40 mg 40 mg Intravenous BID(02-26) senna/docusate (SENOKOT-S) tablet 2 tablet 2 tablet Oral BID sodium chloride (SEA MIST) 0.65 % nasal spray 1-2 spray 1-2 spray Each Nostril TID Continuous Infusions: PRN and Respiratory Meds:acetaminophen Q4H PRN, albuterol 0.5% Q4H PRN, hydrALAZINE Q4H PRN, ipratropium bromide Q4H PRN, LORazepam Q6H PRN, nicotine polacrilex Q1H PRN, polyethylene glycol 3350 BID PRN, sodium chloride 0.9% (NS) IP Dialysis PRN, sodium chloride 0.9% (NS) IP Dialysis PRN, sodium chloride 0.9 % (NS) IP Dialysis PRN, sodium chloride 0.9% (NS) IP Dialysis PRN RADIOLOGY AND OTHER DIAGNOSTIC PROCEDURES REVIEW As in A/P Radiology and Other Diagnostic Procedures Review: 04/11/2017 Pertinent radiology reviewed. * Charo Perry RN - 04/11/2017 5:36 PM SECONDARY HISTORY TEACHER Formatting of this note may be different from the original. 04/11/17 1709 Vitals BP 181/71 Mean NBP (Calculated) 108 MM HG BP Source Arm, Right BP Patient Position C Pt symptomatic. MD notified via text page. Hydralazine 20 mg administered IV push per order. * Charo Perry RN - 04/11/2017 3:27 PM SECONDARY HISTORY TEACHER Blood pressure continues to run high. RN and MD frequently communicating about patient status. BP medication administered as ordered. Pt asymptomatic but anxious. * Andrew Barnes - 04/11/2017 12:55 PM SECONDARY HISTORY TEACHER Formatting of this note may be different from the original. General Progress Note Name: Naren Mayfield Today's Date: 04/11/2017 Admission Date: 04/03/2017 LOS: 8 days Assessment/Plan: Active Problems: Subarachnoid bleed (HCC) Acquired skull defect Pneumonia Chronic hypoxemic respiratory failure (HCC) Vascular dementia without behavioral disturbance ESRD (end stage renal disease) on dialysis (HCC) Acute blood loss as cause of postoperative anemia Normocytic anemia Renovascular hypertension Influenza B Rhinovirus infection COPD with hypoxia (HCC) Oropharyngeal dysphagia Pancytopenia (HCC) Troponin level elevated TBI (traumatic brain injury) (HCC) Naren Mayfield is a 51 y.o. male with ESRD admitted with influenza. 1. ESRD -on HD TTS, last HD session unknown -access LUE AVF -target EDW 103 kg 2. Influenza 3. Hx of SAH with residual neurologic deficits 4. Anemia of CKD with iron deficiency 5. Secondary hyperparathyroidism. 6. HTN with component of volume dependence Recommendations: -pt completed 3 hrs HD today with 2.7 L UF -may discharge to rehab and resume TTS schedule at [facility] Andrew Barnes MD PGY-4 Nephrology Fellow Pager [phone] Subjective Naren Mayfield is a 51 y.o. male. Patient seen on HD, tolerated it reasonably well, did prefer to dialyze in regular chair. Stayed for all but 15 min of treatment. Medications Scheduled Meds: amLODIPine (NORVASC) tablet 10 mg 10 mg Oral QDAY atorvastatin (LIPITOR) tablet 10 mg 10 mg Oral QHS calcium acetate (PHOSLO) capsule 1,334 mg 1,334 mg Oral TID w/ meals cloNIDine (CATAPRESS) tablet 0.1 mg 0.1 mg Oral TID doxazosin (CARDURA) tablet 8 mg 8 mg Oral QHS doxycycline (VIBRAMYCIN) tablet 100 mg 100 mg Oral BID epoetin carine (PROCRIT) injection 20,000 Units 20,000 Units Intravenous Once per day on Sat furosemide (LASIX) tablet 60 mg 60 mg Oral BID(12-23) hydrALAZINE (APRESOLINE) tablet 50 mg 50 mg Oral TID levETIRAcetam (KEPPRA) tablet 1,500 mg 1,500 mg Oral QDAY losartan (COZAAR) tablet 100 mg 100 mg Oral QHS melatonin tablet 3 mg 3 mg Oral QHS metoprolol XL (TOPROL XL) tablet 100 mg 100 mg Oral BID nicotine (NICODERM CQ STEP 3) 7 mg/day patch 1 patch 1 patch Transdermal QDAY pantoprazole (PROTONIX) injection 40 mg 40 mg Intravenous BID(02-26) senna/docusate (SENOKOT-S) tablet 2 tablet 2 tablet Oral BID sodium chloride (SEA MIST) 0.65 % nasal spray 1-2 spray 1-2 spray Each Nostril TID Continuous Infusions: PRN and Respiratory Meds:acetaminophen Q4H PRN, albuterol 0.5% Q4H PRN, hydrALAZINE Q4H PRN, ipratropium bromide Q4H PRN, LORazepam Q6H PRN, nicotine polacrilex Q1H PRN, polyethylene glycol 3350 BID PRN, sodium chloride 0.9% (NS) IP Dialysis PRN, sodium chloride 0.9% (NS) IP Dialysis PRN, sodium chloride 0.9 % (NS) IP Dialysis PRN, sodium chloride 0.9% (NS) IP Dialysis PRN Review of Systems: Denies fever, soa, and chest pain Objective: Vital Signs: Last Filed Vital Signs: 24 Hour Range BP: 198/93 (04/11 1231) Temp: 36.7 C (98 F) (04/11 123) Pulse: 69 (04/11 123) Respirations: 22 PER MINUTE (04/11 1118) SpO2: 94 % (04/11 123) O2 Delivery: None (Room Air) (04/11 123) SpO2 Pulse: 60 (04/11 1030) Height: 172.7 cm (68") (04/10 1424) BP: (153-199)/(74-93) Temp: [36.2 C (97.1 F)-36.8 C (98.3 F)] Pulse: [57-78] Respirations: [15 PER MINUTE-35 PER MINUTE] SpO2: [93 %-99 %] O2 Delivery: None (Room Air) Intensity Pain Scale 0-10 (Pain 1): 4 (04/10/17 2100) Vitals: 04/10/17 1424 04/11/17 0745 04/11/17 1030 Weight: 107.5 kg (237 lb) 109.8 kg (242 lb 1 oz) 107.1 kg (236 lb 1.8 oz) Intake/Output Summary: (Last 24 hours) Intake/Output Summary (Last 24 hours) at 04/11/17 1256 Last data filed at 04/11/17 1132 Gross per 24 hour Intake 910 ml Output 3570 ml Net -2660 ml Stool Occurrence: 1 Physical Exam Gen: Alert and Oriented, No Acute Distress HEENT: Sclera normal, wearing helment CV: no JVD, S1 and S2 normal, no rubs, murmurs or gallops Pulm: Clear to Auscultation bilateral, slightly diminished GI: BS+ x4, non-tender to palpation Neuro: facial droop, memory impaired Ext: trace edema, nontender Skin: no rash, dry Access: LUE AVF with good thrill Lab Review 24-hour labs: Results for orders placed or performed during the hospital encounter of (from the past 24 hour(s)) TROPONIN-I Collection Time: 04/10/17 3:00 PM Result Value Ref Range Troponin-I 0.05 0.0 - 0.05 NG/ML CBC AND DIFF Collection Time: 04/11/17 4:28 AM Result Value Ref Range White Blood Cells 3.8 (L) 4.5 - 11.0 K/UL RBC 2.42 (L) 4.4 - 5.5 M/UL Hemoglobin 7.4 (L) 13.5 - 16.5 GM/DL Hematocrit 21.4 (L) 40 - 50 % MCV 88.5 80 - 100 FL MCH 30.5 26 - 34 PG MCHC 34.4 32.0 - 36.0 G/DL RDW 14.6 11 - 15 % Platelet Count 157 150 - 400 K/UL MPV 8.6 7 - 11 FL Neutrophils 78 (H) 41 - 77 % Lymphocytes 8 (L) 24 - 44 % Monocytes 11 4 - 12 % Eosinophils 3 0 - 5 % Basophils 0 0 - 2 % Absolute Neutrophil Count 3.00 1.8 - 7.0 K/UL Absolute Lymph Count 0.30 (L) 1.0 - 4.8 K/UL Absolute Monocyte Count 0.40 0 - 0.80 K/UL Absolute Eosinophil Count 0.10 0 - 0.45 K/UL Absolute Basophil Count 0.00 0 - 0.20 K/UL COMPREHENSIVE METABOLIC PANEL Collection Time: 04/11/17 4:28 AM Result Value Ref Range Sodium 131 (L) 137 - 147 MMOL/L Potassium 4.8 3.5 - 5.1 MMOL/L Chloride 95 (L) 98 - 110 MMOL/L Glucose 119 (H) 70 - 100 MG/DL Blood Urea Nitrogen 64 (H) 7 - 25 MG/DL Creatinine 11.52 (H) 0.4 - 1.24 MG/DL Calcium 9.4 8.5 - 10.6 MG/DL Total Protein 7.2 6.0 - 8.0 G/DL Total Bilirubin 0.5 0.3 - 1.2 MG/DL Albumin 3.8 3.5 - 5.0 G/DL Alk Phosphatase 91 25 - 110 U/L AST (SGOT) 15 7 - 40 U/L CO2 24 21 - 30 MMOL/L ALT (SGPT) 8 7 - 56 U/L Anion Gap 12 3 - 12 eGFR Non 5 (L) >60 mL/min eGFR 6 (L) >60 mL/min MAGNESIUM Collection Time: 04/11/17 4:28 AM Result Value Ref Range Magnesium 2.0 1.6 - 2.6 mg/dL PHOSPHORUS Collection Time: 04/11/17 4:28 AM Result Value Ref Range Phosphorus 3.8 2.0 - 4.0 MG/DL Point of Care Testing (Last 24 hours) Glucose: (!) 119 (04/11/17 5883) Radiology and other Diagnostics Review: Pertinent radiology reviewed. Andrew Barnes Pager [phone] Associated attestation - Lety Vallejo MD - 04/11/2017 1:53 PM SECONDARY HISTORY TEACHER I personally performed the rubin portions of the visit, discussed case with fellow Dr. Barnes and concur with his documentation of history, physical exam, assessment, and treatment plan unless otherwise noted. Pt seen and examined while on HD. Tolerating it well. On chair. LUE AVF functioning well. 2 K bath, 3.5 hrs with 2 Lr UF. CTA b/l No LL edema * Charo Perry, RN - 04/11/2017 12:51 PM SECONDARY HISTORY TEACHER Formatting of this note may be different from the original. 04/11/17 1231 Vitals Temp 36.7 C (98 F) Temperature Source Oral Pulse 69 SpO2 94 % O2 Delivery RA BP (!) 198/93 Mean NBP (Calculated) 128 MM HG BP Source Arm, Right BP Patient Position D MD notified. Hydralazine administered as ordered. RN at bedside. * Charo Perry, RN - 04/11/2017 11:28 AM SECONDARY HISTORY TEACHER Formatting of this note may be different from the original. 04/11/17 1118 Vitals Temp 36.6 C (97.9 F) Temperature Source Oral Pulse 67 Respirations 22 PER MINUTE SpO2 93 % O2 Delivery RA BP 188/79 Mean NBP (Calculated) 115 MM HG BP Source Arm, Right BP Patient Position S MD notified and at bedside. Pt symptomatic. BP medication administered. Vitals to be retaken at 12:30. * Starr Landrum OT - 04/11/2017 11:18 AM SECONDARY HISTORY TEACHER OCCUPATIONAL THERAPY NO TREATMENT NOTE The patient was not seen due to: Pt off unit to dialysis. OT to follow up as able for therapy. Therapist: Starr Landrum OTR/L Date: 04/11/2017 * Pramod Chen MD - 04/10/2017 8:43 PM SECONDARY HISTORY TEACHER Formatting of this note may be different from the original. Name: Naren Mayfield Admission Date: 04/03/2017 Today's Date: 04/10/17 LOS: 7 ASSESSMENT AND PLAN 51yoM w/ PMH of recent ruptured R MCA aneurysm w/ hematoma and sub-arachnoid hemorrhage s/p clipping, R hemicraniotomy dc'd on 03/26, ESRD on HD, chronic hypoxia (3-4L), COPD, HTN, known L pleural effusion transferred from OSH w/ fever, acute on chronic hypoxia Chronic hypoxic respiratory failure - due to HFpEF - on baseline 3-4L NC - CT on admit shows stable small L pleural effusion, atelectasis and possible pneumonitis - RVP + for influenza B and rhinovirus - urine strep and legionella Ag negative - sputum culture 04/04/17 NORMAL OROPHARYNGEAL EVELIA - blood cultures 04/04/17 NGTD - cont tamiflu for 5 days total 04/04 - cont doxy given elevated pro-calcitonin for 5 days 04/04 - cont albuterol, ipratropium S/p MCA aneurysm rupture, hematoma, subarachnoid hemorrhage - CT head 04/03 Previous right pterional craniectomy with increase in size of the adjacent subgaleal fluid collection since 03/22/2017 suggestive of enlarging pseudomeningocele. - neurosurg consulted: no acute neurosurgical intervention, unlikely this is the cause of lethargy - cont on CO for impulsive behavior 2/2 TBI/vascular dementia - cont Keppra for seizure ppx - discussed with neurosurgery: Cranioplasty could be performed near the end of this hospital stay if he is found to be stable for surgical procedure from a medical standpoint. If it is felt more prudent to postpone cranioplasty to a later date we can help facilitate the procedure as an outpatient. This procedure is not an emergency. They will call him to make an appointment Hepatosplenomegaly - CT abd and pelvis 04/03/17: Development of moderate splenomegaly and trace abdominal ascites which may be secondary to portal hypertension.Persistent moderate hepatomegaly which may be enlarged due to chronic passive congestion. Trace ascites - My suspicion is that this is all related to HFpEF (see below) - liver US with doppler wasn't done because patient couldn't lay down - LFTs normal - no prior history of liver disease - liver US should be done as outpatient to assess liver size after optimizing his fluid status - treat the cause HFpEF, acute on chronic/exacerbation - patient has orthopnea/exertional dyspnea,on exam JVD present - BNP 2400 04/04/17 - CT chest 04/03/17 Moderate cardiomegaly with pulmonary venous congestion, subtle interlobular septal thickening, and persistent diffuse groundglass opacities suggestive of CHF and pulmonary edema. - TTE 04/04/17 Left ventricular diastolic dysfunction. Elevated left atrial pressure. Severely elevated central venous pressure (>15 mm Hg). Mild concentric LVH is seen. The EF is about 60%, The estimated PA systolic pressure is 45-50 mm Hg. - volume management via HD which he is refusing, since he produces urine added lasix 60 PO BID - strict input and output Pancytopenia/ Anemia, normocytic - due to hepatosplenomegaly - b12, folate normal - iron studies w/ AoCD and RADHA - soluble transferrin receptor is normal - Haptoglobin in normal - rules out hemolysis - retic count is inappropriately normal - peripheral smear: PANCYTOPENIA., NORMOCYTIC ANEMIA., ABSOLUTELYMPHOCYTOPENIA - s/p 1 PRBC and platelets Pancytopenia/Thrombocytopenia - due to hepatosplenomegaly - OD of 0.97 makes true HIT only 1-5% - not known to have thrombocytopenia, during his last admission plts were normal - presented with platelets of 97 on 04/04 - heparin induced Ab 04/04 positive - serotonin release assay pending - peripheral smear: MODERATE THROMBOCYTOPENIA WITH NORMAL PLATELET MORPHOLOGY - plt goal is >100 ESRD/hyperkalemia - on HD TTS - access LUE AVF - target EDW 103 kg - daily standing weight, strict I&O - renal dosing of medications - renal following - patient refusing HD, as per psych he is competent to refuse HD Trop elevation - 2/2 poor renal clearance and recent WIRE TWISTER insult - chronically elevated since 03/10 with highest 0.17 - EKG NSR, no St changes - TTE 04/04/17: Mild concentric LVH is seen. The EF is about 60%. - TTE 04/10/17: Normal left ventricular systolic function. EF~ 55%, Compared to previous study on 04/04/2017, there is trace pericardial effusion. LV systolic function and PA systolic pressures are similar - 0.17>0.16>0.15>0.05 on 04/10/17 - he has no chest pain Dysphagia - APPAREL MERCHANDISER consulted - mild oropharyngeal dysphagia given [facility] HTN - cont norvasc, cardura, clonidin, losartan - BP still elevated mainly due to fluid overload - HD will bring BP down Troponin was repeated which was normal TTE was repeated again showed no changes compared with TTE 04/04/17 Add losartan since now he agrees with HD Discussed with nephrology service Patient will be transferred to SNF tomorrow. Total time (reviewing and writing notes, interdisciplinary rounds with the nurse , case preparer and liner and the social work nurse, discussion with treasury management sales consultant services) spent 35 minutes of which > 50% was spent face to face with the patient in care coordination and bedside counseling (explaining treatment options, disease processes, laboratory/imaging results, prognosis, risks and benefits of treatment options, medication side effects, importance of compliance with treatment, risk factor reduction, follow up with primary care physician). SUBJECTIVE Patient seen and examined. Overnight: No interval events. During this AM visit, patient states that breathing improved after HD, no other compalints ROS: >>> Denies fever/chills >>> Denies chest pain >>> Denies N/V/D >>> Denies dizziness/lightheadedness OBJECTIVE VITAL SIGNS BP: 177/87 (04/10 1918) Temp: 36.2 C (97.2 F) (04/10 1918) Pulse: 65 (04/10 1918) Respirations: 18 PER MINUTE (04/10 1918) SpO2: 98 % (04/10 1918) O2 Delivery: Nasal Cannula (04/10 1918) Height: 172.7 cm (68") (04/10 1424) PHYSICAL EXAM General: easily distractedVS as above. No acute distress . Helmet in place Eyes: No conjunctival injection. Pupil equal on both sizeNo scleral icterus. Ears, nose, mouth, and throat : No erythema. MMM. No erythema, exudate noted. Neck: Symmetric appearance without crepitus, no obvious mass or noticeable swelling, Lungs: No use of accessory muscles. Clear to auscultation bilaterally without wheezes, rales, or rhonchi. Cardiovascular: Regular rate, S1, S2 normal, no murmurs, clicks, rubs, or gallops appreciated . 2+ and symmetric, all extremities. No edema in BLE. Abdomen: BS+, soft, ND, no guarding or rigidity. Nontender to palpation. Skin: Skin color normal, no obvious evidence of rashes. Musculoskeletal: Normal 5/5 hand-enrollment representative strength and distal strength in BLE. ROM normal. No joints swelling or erythema/tenderness Neurologic: Alerted and oriented x 3. 5/5 hand-enrollment representative and distal strenght. Normal ROM. No Sensation grossly intact. No focal weakness. Psych:Alerted and oriented, calm, normal affect LAB REVIEW Recent Labs 04/09/17 0728 04/10/17 0425 WBC 3.6* 3.4* HGB 7.5* 7.8* HCT 21.1* 22.0* PLTCT 116* 135* MCV 89.9 90.2 Recent Labs 04/09/17 0728 04/10/17 0425 NA 130* 133* K 5.3* 4.5 CL 94* 96* CO2 23 25 BUN 88* 50* CR 14.29* 9.67* GAP 13* 12 MG 2.0 1.9 PO4 3.8 3.4 GFR 4* 6* ALBUMIN 3.4* 3.6 TOTBILI 0.5 0.5 AST 14 14 ALT 12 10 MEDICATIONS Scheduled Meds: amLODIPine (NORVASC) tablet 10 mg 10 mg Oral QDAY atorvastatin (LIPITOR) tablet 10 mg 10 mg Oral QHS calcium acetate (PHOSLO) capsule 1,334 mg 1,334 mg Oral TID w/ meals cloNIDine (CATAPRESS) tablet 0.1 mg 0.1 mg Oral TID doxazosin (CARDURA) tablet 8 mg 8 mg Oral QHS doxycycline (VIBRAMYCIN) tablet 100 mg 100 mg Oral BID epoetin carine (PROCRIT) injection 20,000 Units 20,000 Units Intravenous Once per day on Sat furosemide (LASIX) tablet 60 mg 60 mg Oral BID(12-23) levETIRAcetam (KEPPRA) tablet 1,500 mg 1,500 mg Oral QDAY melatonin tablet 3 mg 3 mg Oral QHS metoprolol XL (TOPROL XL) tablet 100 mg 100 mg Oral BID nicotine (NICODERM CQ STEP 3) 7 mg/day patch 1 patch 1 patch Transdermal QDAY pantoprazole (PROTONIX) injection 40 mg 40 mg Intravenous BID(02-26) senna/docusate (SENOKOT-S) tablet 2 tablet 2 tablet Oral BID sodium chloride (SEA MIST) 0.65 % nasal spray 1-2 spray 1-2 spray Each Nostril TID Continuous Infusions: PRN and Respiratory Meds:acetaminophen Q4H PRN, albuterol 0.5% Q4H PRN, hydrALAZINE Q4H PRN, ipratropium bromide Q4H PRN, LORazepam Q6H PRN, nicotine polacrilex Q1H PRN, polyethylene glycol 3350 BID PRN, sodium chloride 0.9% (NS) IP Dialysis PRN, sodium chloride 0.9% (NS) IP Dialysis PRN, sodium chloride 0.9 % (NS) IP Dialysis PRN RADIOLOGY AND OTHER DIAGNOSTIC PROCEDURES REVIEW As in A/P Radiology and Other Diagnostic Procedures Review: 04/10/2017 Pertinent radiology reviewed. * Andrew Barnes - 04/10/2017 6:33 PM SECONDARY HISTORY TEACHER Formatting of this note may be different from the original. General Progress Note Name: Naren Mayfield Today's Date: 04/10/2017 Admission Date: 04/03/2017 LOS: 7 days Assessment/Plan: Active Problems: Subarachnoid bleed (HCC) Acquired skull defect Pneumonia Chronic hypoxemic respiratory failure (HCC) Vascular dementia without behavioral disturbance ESRD (end stage renal disease) on dialysis (HCC) Acute blood loss as cause of postoperative anemia Normocytic anemia Renovascular hypertension Influenza B Rhinovirus infection COPD with hypoxia (HCC) Oropharyngeal dysphagia Pancytopenia (HCC) Troponin level elevated TBI (traumatic brain injury) (HCC) Naren Mayfield is a 51 y.o. male with ESRD admitted with influenza. 1. ESRD -on HD TTS, last HD session unknown -access LUE AVF -target EDW 103 kg 2. Influenza 3. Hx of SAH with residual neurologic deficits 4. Anemia of CKD with iron deficiency 5. Secondary hyperparathyroidism. 6. HTN with component of volume dependence Recommendations: -as it is quite obvious the patient does not want HD here and prefers his regular unit, patient may discharge and resume outpatient HD at [facility] -daily standing weight, strict I&O -renal dosing of medications Andrew Barnes MD PGY-4 Nephrology Fellow Pager [phone] Subjective Naren Mayfield is a 51 y.o. male. Patient doing well, excited for pending discharge. Medications Scheduled Meds: amLODIPine (NORVASC) tablet 10 mg 10 mg Oral QDAY atorvastatin (LIPITOR) tablet 10 mg 10 mg Oral QHS calcium acetate (PHOSLO) capsule 1,334 mg 1,334 mg Oral TID w/ meals cloNIDine (CATAPRESS) tablet 0.1 mg 0.1 mg Oral TID doxazosin (CARDURA) tablet 8 mg 8 mg Oral QHS doxycycline (VIBRAMYCIN) tablet 100 mg 100 mg Oral BID epoetin carine (PROCRIT) injection 20,000 Units 20,000 Units Intravenous Once per day on Sat furosemide (LASIX) tablet 60 mg 60 mg Oral BID(12-23) levETIRAcetam (KEPPRA) tablet 1,500 mg 1,500 mg Oral QDAY melatonin tablet 3 mg 3 mg Oral QHS metoprolol XL (TOPROL XL) tablet 100 mg 100 mg Oral BID nicotine (NICODERM CQ STEP 3) 7 mg/day patch 1 patch 1 patch Transdermal QDAY pantoprazole (PROTONIX) injection 40 mg 40 mg Intravenous BID(02-26) senna/docusate (SENOKOT-S) tablet 2 tablet 2 tablet Oral BID sodium chloride (SEA MIST) 0.65 % nasal spray 1-2 spray 1-2 spray Each Nostril TID Continuous Infusions: PRN and Respiratory Meds:acetaminophen Q4H PRN, albuterol 0.5% Q4H PRN, hydrALAZINE Q4H PRN, ipratropium bromide Q4H PRN, LORazepam Q6H PRN, nicotine polacrilex Q1H PRN, polyethylene glycol 3350 BID PRN, sodium chloride 0.9% (NS) IP Dialysis PRN, sodium chloride 0.9% (NS) IP Dialysis PRN, sodium chloride 0.9 % (NS) IP Dialysis PRN Review of Systems: Denies fever, soa, and chest pain Objective: Vital Signs: Last Filed Vital Signs: 24 Hour Range BP: 184/89 (04/10 1748) Temp: 36.5 C (97.7 F) (04/10 1747) Pulse: 63 (04/10 1748) Respirations: 18 PER MINUTE (04/10 1748) SpO2: 95 % (04/10 1748) O2 Delivery: Nasal Cannula (04/10 1748) Height: 172.7 cm (68") (04/10 1423) BP: (165-193)/(67-89) Temp: [36.3 C (97.4 F)-36.9 C (98.4 F)] Pulse: [58-68] Respirations: [18 PER MINUTE-23 PER MINUTE] SpO2: [92 %-99 %] O2 Delivery: Nasal Cannula Vitals: 04/09/17 1930 04/10/17 0405 04/10/17 1424 Weight: (S) 106.3 kg (234 lb 5.6 oz) 107.8 kg (237 lb 11.2 oz) 107.5 kg (237 lb ) Intake/Output Summary: (Last 24 hours) Intake/Output Summary (Last 24 hours) at 04/10/17 1835 Last data filed at 04/10/17 1758 Gross per 24 hour Intake 420 ml Output 4420 ml Net -4000 ml Stool Occurrence: 1 Physical Exam Gen: Alert and Oriented, No Acute Distress HEENT: Sclera normal, wearing helment CV: no JVD, S1 and S2 normal, no rubs, murmurs or gallops Pulm: Clear to Auscultation bilateral, slightly diminished GI: BS+ x4, non-tender to palpation Neuro: facial droop, memory impaired Ext: trace edema, nontender Skin: no rash, dry Access: LUE AVF with good thrill Lab Review 24-hour labs: Results for orders placed or performed during the hospital encounter of (from the past 24 hour(s)) CBC AND DIFF Collection Time: 04/10/17 4:25 AM Result Value Ref Range White Blood Cells 3.4 (L) 4.5 - 11.0 K/UL RBC 2.44 (L) 4.4 - 5.5 M/UL Hemoglobin 7.8 (L) 13.5 - 16.5 GM/DL Hematocrit 22.0 (L) 40 - 50 % MCV 90.2 80 - 100 FL MCH 31.8 26 - 34 PG MCHC 35.2 32.0 - 36.0 G/DL RDW 14.6 11 - 15 % Platelet Count 135 (L) 150 - 400 K/UL MPV 9.4 7 - 11 FL Neutrophils 76 41 - 77 % Lymphocytes 10 (L) 24 - 44 % Monocytes 10 4 - 12 % Eosinophils 4 0 - 5 % Basophils 0 0 - 2 % Absolute Neutrophil Count 2.60 1.8 - 7.0 K/UL Absolute Lymph Count 0.30 (L) 1.0 - 4.8 K/UL Absolute Monocyte Count 0.40 0 - 0.80 K/UL Absolute Eosinophil Count 0.10 0 - 0.45 K/UL Absolute Basophil Count 0.00 0 - 0.20 K/UL COMPREHENSIVE METABOLIC PANEL Collection Time: 04/10/17 4:25 AM Result Value Ref Range Sodium 133 (L) 137 - 147 MMOL/L Potassium 4.5 3.5 - 5.1 MMOL/L Chloride 96 (L) 98 - 110 MMOL/L Glucose 125 (H) 70 - 100 MG/DL Blood Urea Nitrogen 50 (H) 7 - 25 MG/DL Creatinine 9.67 (H) 0.4 - 1.24 MG/DL Calcium 9.3 8.5 - 10.6 MG/DL Total Protein 7.1 6.0 - 8.0 G/DL Total Bilirubin 0.5 0.3 - 1.2 MG/DL Albumin 3.6 3.5 - 5.0 G/DL Alk Phosphatase 90 25 - 110 U/L AST (SGOT) 14 7 - 40 U/L CO2 25 21 - 30 MMOL/L ALT (SGPT) 10 7 - 56 U/L Anion Gap 12 3 - 12 eGFR Non 6 (L) >60 mL/min eGFR 7 (L) >60 mL/min MAGNESIUM Collection Time: 04/10/17 4:25 AM Result Value Ref Range Magnesium 1.9 1.6 - 2.6 mg/dL PHOSPHORUS Collection Time: 04/10/17 4:25 AM Result Value Ref Range Phosphorus 3.4 2.0 - 4.0 MG/DL TROPONIN-I Collection Time: 04/10/17 3:00 PM Result Value Ref Range Troponin-I 0.05 0.0 - 0.05 NG/ML Point of Care Testing (Last 24 hours) Glucose: (!) 125 (04/10/17 5705) Radiology and other Diagnostics Review: Pertinent radiology reviewed. Andrew Barnes Pager [phone] Associated attestation - Lety Vallejo MD - 04/11/2017 1:51 PM SECONDARY HISTORY TEACHER I personally performed the rubin portions of the visit, discussed case with fellow Dr. Barnes and concur with his documentation of history, physical exam, assessment, and treatment plan unless otherwise noted. I saw pt while in his room this am. No indication for HD today. Case discussed with DR. Chen as pt continue to refuse HD in the hospital. Plan to get him d.c to rehab as soon as d/c plan is ensured. * Adrián Potts, PT - 04/10/2017 3:13 PM SECONDARY HISTORY TEACHER PHYSICAL THERAPY NOTE Observed pt ambulating in room and hallway with supervision level with no significant balance concerns; discussed possible D/C with SW to facility tomorrow. PT will continue to follow. Therapist: Adrián Potts, PT, DPT Date: 04/10/2017 * Yesica Aquino, - 04/10/2017 7:04 AM SECONDARY HISTORY TEACHER Formatting of this note may be different from the original. Note: This is a delayed note. Actual encounter occurred on 04/09/17 Psychiatric Consultation Progress Note LOS: 7 days Psychiatric Assessment: 1. Capacity evaluation 2. Acute stress reaction Recommendations: Patient has the capacity to understand his medical needs and make the decision to leave AMA. He understands the risks of leaving (fluid retention, worsening sickness, and even ). He understands that dialysis is essentially his only [facility] option with regard to his ongoing kidney failure. He adamantly denies thoughts, intentions, or plan of harming himself or others. When presented with the reality that his facility may not accept him back in his current state, patient said he would reconsider and have dialysis at . Psychiatry will sign off at this time. If further concerns for arise after this encounter, please page the consult team pager [phone] Seen and discussed with: Dr. Aquino Please feel free to contact us with any additional questions or concerns by paging the consult team between 8am and 5pm on weekdays and between 8am and 3pm on weekends at [phone]. Otherwise, page the president celebrity acquistion instructional supervisor. ATTESTATION I personally performed the rubin portions of the E/M visit, discussed the case with the resident and concur with resident documentation of history, physical exam, assessment, and treatment plan unless otherwise noted. I personally participated in development of the plan of care. Late entry for patient seen and discussed with resident on 04/09/2017. Please feel free to contact us with any additional questions or concerns by paging the consult team between 8am and 5pm on weekdays and between 8am and 3pm on weekends [phone]. Otherwise, page the president celebrity acquistion instructional supervisor. Staff name: Yesica Aquino DO Date: 04/10/2017 Subjective: Naren Mayfield was seen at bedside for capacity eval. He said that he wanted to refuse dialysis because he did not want it done at , due to poor experiences with nursing staff. He was agreeable to dialysis, but only at his home facility. He was requesting to leave AMA so that he could have dialysis there. He was able to state the risks of leaving AMA (fluid retention, worsening sickness, and even ). He understood that dialysis was his only option and that medications would not fully control his kidney failure due to the state of his kidneys. He denied SI, HI, and AVH. He stated the reason he wanted to leave so bad was to see his daughter in his home town. ROS: Psych (-) SI, HI, AVH Resp (+) SOB Objective: Vital Signs: Current Vital Signs: 24 Hour Range BP: 174/81 (04/10 257) Temp: 36.9 C (98.4 F) (04/10 257) Pulse: 58 (04/10 257) Respirations: 22 PER MINUTE (04/10 257) SpO2: 99 % (04/10 257) O2 Delivery: Nasal Cannula (04/10 257) SpO2 Pulse: 71 (04/09 1800) BP: (162-193)/(66-96) Temp: [36.3 C (97.4 F)-37.2 C (99 F)] Pulse: [57-87] Respirations: [17 PER MINUTE-28 PER MINUTE] SpO2: [89 %-100 %] O2 Delivery: Nasal Cannula Intensity Pain Scale 0-10 (Pain 1): (not recorded) Scheduled Medications: amLODIPine (NORVASC) tablet 10 mg 10 mg Oral QDAY atorvastatin (LIPITOR) tablet 10 mg 10 mg Oral QHS calcium acetate (PHOSLO) capsule 1,334 mg 1,334 mg Oral TID w/ meals cloNIDine (CATAPRESS) tablet 0.1 mg 0.1 mg Oral TID doxazosin (CARDURA) tablet 8 mg 8 mg Oral QHS doxycycline (VIBRAMYCIN) tablet 100 mg 100 mg Oral BID epoetin carine (PROCRIT) injection 20,000 Units 20,000 Units Intravenous Once per day on Sat furosemide (LASIX) tablet 60 mg 60 mg Oral BID(-) levETIRAcetam (KEPPRA) tablet 1,500 mg 1,500 mg Oral QDAY melatonin tablet 3 mg 3 mg Oral QHS metoprolol XL (TOPROL XL) tablet 100 mg 100 mg Oral BID nicotine (NICODERM CQ STEP 3) 7 mg/day patch 1 patch 1 patch Transdermal QDAY pantoprazole (PROTONIX) injection 40 mg 40 mg Intravenous BID(02-26) senna/docusate (SENOKOT-S) tablet 2 tablet 2 tablet Oral BID sodium chloride (SEA MIST) 0.65 % nasal spray 1-2 spray 1-2 spray Each Nostril TID PRN Medications: acetaminophen Q4H PRN 650 mg at 04/09/17 1633, albuterol 0.5% Q4H PRN, hydrALAZINE Q4H PRN 10 mg at 04/09/17 1805, ipratropium bromide Q4H PRN, LORazepam Q6H PRN 1 mg at 04/10/17 0304, nicotine polacrilex Q1H PRN 2 mg at 05/26 0743, polyethylene glycol 3350 BID PRN, sodium chloride 0.9% (NS) IP Dialysis PRN, sodium chloride 0.9% (NS) IP Dialysis PRN, sodium chloride 0.9% ( NS) IP Dialysis PRN MENTAL STATUS EXAMINATION General/Constitutional: appears stated age, dressed in hospital scrubs, fair grooming Eye Contact: good Behavior: Calm, cooperative; appropriate for conversation Speech: RRR with normal volume and tone. Good articulation Mood: "Fine" Affect: Anxious Thought Process: Linear and goal directed Thought Content: denies SI, HI. No evidence of delusions Perception: Denies AVH Associations: Intact Insight/Judgment: fair/fair Orientation: AAOx3 (name/year/location) Recent and remote memory: grossly intact Attention span and concentration: appropriate for conversation Cognition: average Language: gabonese, fluent Fund of knowledge and vocabulary: average Physical Exam: Neuro: Scalp bulge noted from prior hemicraniotomy Musculoskeletal: Moves all four extremities spontaneously Saeid Anderson MD * Pramod Chen MD - 04/09/2017 7:58 PM SECONDARY HISTORY TEACHER Formatting of this note may be different from the original. Name: Naren Mayfield Admission Date: 04/03/2017 Today's Date: 04/09/17 LOS: 6 ASSESSMENT AND PLAN 51yoM w/ PMH of recent ruptured R MCA aneurysm w/ hematoma and sub-arachnoid hemorrhage s/p clipping, R hemicraniotomy dc'd on 03/26, ESRD on HD, chronic hypoxia (3-4L), COPD, HTN, known L pleural effusion transferred from OSH w/ fever, acute on chronic hypoxia Chronic hypoxic respiratory failure - due to CHF - baseline 3-4L, was able to tapered off, but since he is refusing HD he is back to his 4l NC - CT on admit shows stable small L pleural effusion, atelectasis and possible pneumonitis - RVP + for influenza B and rhinovirus - urine strep and legionella Ag negative - sputum culture 04/04/17 NORMAL OROPHARYNGEAL EVELIA - blood cultures 04/04/17 NGTD - cont tamiflu for 5 days total 04/04 - cont doxy given elevated pro-calcitonin for 5 days 04/04 - cont albuterol, ipratropium S/p MCA aneurysm rupture, hematoma, subarachnoid hemorrhage - CT head 04/03 Previous right pterional craniectomy with increase in size of the adjacent subgaleal fluid collection since 03/22/2017 suggestive of enlarging pseudomeningocele. - neurosurg consulted: no acute neurosurgical intervention, unlikely this is the cause of lethargy - cont on CO for impulsive behavior 2/2 TBI/vascular dementia - cont Keppra for seizure ppx - discussed with neurosurgery: Cranioplasty could be performed near the end of this hospital stay if he is found to be stable for surgical procedure from a medical standpoint. If it is felt more prudent to postpone cranioplasty to a later date we can help facilitate the procedure as an outpatient. This procedure is not an emergency. They will call him to make an appointment Hepatosplenomegaly - CT abd and pelvis 04/03/17: Development of moderate splenomegaly and trace abdominal ascites which may be secondary to portal hypertension.Persistent moderate hepatomegaly which may be enlarged due to chronic passive congestion. Trace ascites - My suspicion is that this is all related to HFpEF (see below) - liver US with doppler wasn't done because patient couldn't lay down - LFTs normal - no prior history of liver disease - liver US should be done as outpatient to assess liver size after optimizing his fluid status - treat the cause HFpEF, acute on chronic/exacerbation - patient has orthopnea/exertional dyspnea,on exam JVD present - BNP 2400 04/04/17 - CT chest 04/03/17 Moderate cardiomegaly with pulmonary venous congestion, subtle interlobular septal thickening, and persistent diffuse groundglass opacities suggestive of CHF and pulmonary edema. - TTE 04/04/17 Left ventricular diastolic dysfunction. Elevated left atrial pressure. Severely elevated central venous pressure (>15 mm Hg). Mild concentric LVH is seen. The EF is about 60%, The estimated PA systolic pressure is 45-50 mm Hg. - volume management via HD which he is refusing, since he produces urine added lasix 60 PO BID - strict input and output Pancytopenia/ Anemia, normocytic - due to hepatosplenomegaly - b12, folate normal - iron studies w/ AoCD and RADHA - soluble transferrin receptor is normal - Haptoglobin in normal - rules out hemolysis - retic count is inappropriately normal - peripheral smear: PANCYTOPENIA., NORMOCYTIC ANEMIA., ABSOLUTELYMPHOCYTOPENIA - s/p 1 PRBC and platelets Pancytopenia/Thrombocytopenia - due to hepatosplenomegaly - OD of 0.97 makes true HIT only 1-5% - not known to have thrombocytopenia, during his last admission plts were normal - presented with platelets of 97 on 04/04 - heparin induced Ab 04/04 positive - serotonin release assay pending - peripheral smear: MODERATE THROMBOCYTOPENIA WITH NORMAL PLATELET MORPHOLOGY - plt goal is >100 ESRD/hyperkalemia - on HD TTS - access LUE AVF - target EDW 103 kg - daily standing weight, strict I&O - renal dosing of medications - renal following - patient refusing HD, as per psych he is competent to refuse HD - repeat potassium if still elevated will treat medically Trop elevation - 2/2 poor renal clearance and recent WIRE TWISTER insult - chronically elevated since 03/10 with highest 0.17 - EKG NSR, no ischemic changes - EF is normal on Echo w/o areas of hypokinesis, for more details see above - 0.17>0.16>0.15 - he has no chest pain Dysphagia - APPAREL MERCHANDISER consulted - mild oropharyngeal dysphagia given RHD w/ impulsivity - [facility] soft solid diet and thin liquids HTN - cont norvasc, cardura, clonidin - losartan stopped due to hyperkalemia Plan: Discussed with neurosurgery: they will follow up with him as outpatient Discussed with psychiatry; patient has capacity to leave AMA and refuse HD Will stop tamiflu and doxy at dc tomorrow Time in: 2:30pm Time out: 3:40pm Date 04/09/17: Today's visit (total of 70 minutes) was prolonged due to additional time (>50% of the total time) spent face to face with the patient in care coordination, bedside counseling, explaining risks and benefits of treatment options, disease processes, I met him multiple times today. I explained him that because of his refusal of HD his potassium has been increasing and he is fluid overloaded which makes his dc today unsafe. He originally insisted that in that case he would like to leave AMA despite understanding the risks. I explained that because he has capacity to make decisions so he can refuse HD and leave AMA, His NH/rehab will not accept him if he leaves AMA. Ultimately he agreed to have HD session today. HD unit was notified. SUBJECTIVE Patient seen and examined. Overnight: No interval events. During this AM visit, patient states orthopnea and exertional SOB, but continues to refuse HD treatment ROS: >>> Denies fever/chills >>> Denies chest pain >>> Denies N/V/D >>> Denies dizziness/lightheadedness OBJECTIVE VITAL SIGNS BP: 193/83 (04/09 1929) Temp: 36.7 C (98.1 F) (04/09 1929) Pulse: 66 (04/09 1929) Respirations: 21 PER MINUTE (04/09 1929) SpO2: 98 % (04/09 1929) O2 Delivery: Nasal Cannula (04/09 1929) SpO2 Pulse: 71 (04/09 1800) PHYSICAL EXAM General: easily distractedVS as above. No acute distress . Helmet in place Eyes: No conjunctival injection. Pupil equal on both sizeNo scleral icterus. Ears, nose, mouth, and throat : No erythema. MMM. No erythema, exudate noted. Neck: Symmetric appearance without crepitus, no obvious mass or noticeable swelling, Lungs: No use of accessory muscles. Clear to auscultation bilaterally without wheezes, rales, or rhonchi. Cardiovascular: Regular rate, S1, S2 normal, no murmurs, clicks, rubs, or gallops appreciated . 2+ and symmetric, all extremities. No edema in BLE. Abdomen: BS+, soft, ND, no guarding or rigidity. Nontender to palpation. Skin: Skin color normal, no obvious evidence of rashes. Musculoskeletal: Normal 5/5 hand-enrollment representative strength and distal strength in BLE. ROM normal. No joints swelling or erythema/tenderness Neurologic: Alerted and oriented x 3. 5/5 hand-enrollment representative and distal strenght. Normal ROM. No Sensation grossly intact. No focal weakness. Psych:Alerted and oriented, calm, normal affect LAB REVIEW Recent Labs 04/08/17 0935 04/09/17 0728 WBC 3.1* 3.6* HGB 7.5* 7.5* HCT 22.6* 21.1* PLTCT 119* 116* MCV 90.6 89.9 Recent Labs 04/08/17 0935 04/08/17 1820 04/09/17 0728 NA 132* -- 130* K 5.3* 5.2* 5.3* CL 94* -- 94* CO2 22 -- 23 BUN 82* -- 88* CR 12.99* -- 14.29* GAP 16* -- 13* MG 2.1 -- 2.0 PO4 4.2* -- 3.8 GFR 4* -- 4* ALBUMIN 3.6 -- 3.4* TOTBILI 0.5 -- 0.5 AST 18 -- 14 ALT 15 -- 12 MEDICATIONS Scheduled Meds: amLODIPine (NORVASC) tablet 10 mg 10 mg Oral QDAY atorvastatin (LIPITOR) tablet 10 mg 10 mg Oral QHS calcium acetate (PHOSLO) capsule 1,334 mg 1,334 mg Oral TID w/ meals cloNIDine (CATAPRESS) tablet 0.1 mg 0.1 mg Oral TID doxazosin (CARDURA) tablet 8 mg 8 mg Oral QHS doxycycline (VIBRAMYCIN) tablet 100 mg 100 mg Oral BID epoetin carine (PROCRIT) injection 20,000 Units 20,000 Units Intravenous Once per day on Sat furosemide (LASIX) tablet 60 mg 60 mg Oral BID(-) levETIRAcetam (KEPPRA) tablet 1,500 mg 1,500 mg Oral QDAY melatonin tablet 3 mg 3 mg Oral QHS metoprolol XL (TOPROL XL) tablet 100 mg 100 mg Oral BID nicotine (NICODERM CQ STEP 3) 7 mg/day patch 1 patch 1 patch Transdermal QDAY pantoprazole (PROTONIX) injection 40 mg 40 mg Intravenous BID(02-26) senna/docusate (SENOKOT-S) tablet 2 tablet 2 tablet Oral BID sodium chloride (SEA MIST) 0.65 % nasal spray 1-2 spray 1-2 spray Each Nostril TID Continuous Infusions: PRN and Respiratory Meds:acetaminophen Q4H PRN, albuterol 0.5% Q4H PRN, hydrALAZINE Q4H PRN, ipratropium bromide Q4H PRN, LORazepam Q6H PRN, nicotine polacrilex Q1H PRN, polyethylene glycol 3350 BID PRN, sodium chloride 0.9% (NS) IP Dialysis PRN, sodium chloride 0.9% (NS) IP Dialysis PRN, sodium chloride 0.9 % (NS) IP Dialysis PRN RADIOLOGY AND OTHER DIAGNOSTIC PROCEDURES REVIEW As in A/P Radiology and Other Diagnostic Procedures Review: 04/09/2017 Pertinent radiology reviewed. * Andrew Barnes - 04/09/2017 4:44 PM SECONDARY HISTORY TEACHER Formatting of this note may be different from the original. General Progress Note Name: Naren Mayfield Today's Date: 04/09/2017 Admission Date: 04/03/2017 LOS: 6 days Assessment/Plan: Active Problems: Subarachnoid bleed (HCC) Acquired skull defect Pneumonia Chronic hypoxemic respiratory failure (HCC) Vascular dementia without behavioral disturbance ESRD (end stage renal disease) on dialysis (HCC) Acute blood loss as cause of postoperative anemia Normocytic anemia Renovascular hypertension Influenza B Rhinovirus infection COPD with hypoxia (HCC) Oropharyngeal dysphagia Pancytopenia (HCC) Troponin level elevated TBI (traumatic brain injury) (HCC) Naren Mayfield is a 51 y.o. male with ESRD admitted with influenza. 1. ESRD -on HD TTS, last HD session unknown -access LUE AVF -target EDW 103 kg 2. Influenza 3. Hx of SAH with residual neurologic deficits 4. Anemia of CKD with iron deficiency 5. Secondary hyperparathyroidism. 6. HTN with component of volume dependence Recommendations: -patient agreeable to HD today -plan for 3.5 hrs 3-4L UF -daily standing weight, strict I&O -renal dosing of medications Andrew Barnes MD PGY-4 Nephrology Fellow Pager [phone] Subjective Naren Mayfield is a 51 y.o. male. Patient seen this morning and refused to go to hemodialysis, he later agreed and was seen in HD. Medications Scheduled Meds: amLODIPine (NORVASC) tablet 10 mg 10 mg Oral QDAY atorvastatin (LIPITOR) tablet 10 mg 10 mg Oral QHS calcium acetate (PHOSLO) capsule 1,334 mg 1,334 mg Oral TID w/ meals cloNIDine (CATAPRESS) tablet 0.1 mg 0.1 mg Oral TID doxazosin (CARDURA) tablet 8 mg 8 mg Oral QHS doxycycline (VIBRAMYCIN) tablet 100 mg 100 mg Oral BID epoetin carine (PROCRIT) injection 20,000 Units 20,000 Units Intravenous Once per day on Sat furosemide (LASIX) tablet 60 mg 60 mg Oral BID(12-23) levETIRAcetam (KEPPRA) tablet 1,500 mg 1,500 mg Oral QDAY melatonin tablet 3 mg 3 mg Oral QHS metoprolol XL (TOPROL XL) tablet 100 mg 100 mg Oral BID nicotine (NICODERM CQ STEP 3) 7 mg/day patch 1 patch 1 patch Transdermal QDAY pantoprazole (PROTONIX) injection 40 mg 40 mg Intravenous BID(02-26) senna/docusate (SENOKOT-S) tablet 2 tablet 2 tablet Oral BID sodium chloride (SEA MIST) 0.65 % nasal spray 1-2 spray 1-2 spray Each Nostril TID Continuous Infusions: PRN and Respiratory Meds:acetaminophen Q4H PRN, albuterol 0.5% Q4H PRN, hydrALAZINE Q4H PRN, ipratropium bromide Q4H PRN, LORazepam Q6H PRN, nicotine polacrilex Q1H PRN, polyethylene glycol 3350 BID PRN, sodium chloride 0.9% (NS) IP Dialysis PRN, sodium chloride 0.9% (NS) IP Dialysis PRN, sodium chloride 0.9 % (NS) IP Dialysis PRN Review of Systems: Denies fever, soa, and chest pain Objective: Vital Signs: Last Filed Vital Signs: 24 Hour Range BP: 182/86 (04/09 1629) Temp: 37.2 C (99 F) (04/09 1629) Pulse: 62 (04/09 1629) Respirations: 26 PER MINUTE (04/09 1426) SpO2: 99 % (04/09 1629) O2 Delivery: Nasal Cannula (04/09 1629) BP: (148-186)/(70-96) Temp: [36.4 C (97.5 F)-37.2 C (99 F)] Pulse: [54-62] Respirations: [16 PER MINUTE-26 PER MINUTE] SpO2: [92 %-100 %] O2 Delivery: Nasal Cannula Intensity Pain Scale 0-10 (Pain 1): 6 (04/09/17 163) Vitals: 04/07/17 0300 04/09/17 0610 04/09/17 1630 Weight: 107.5 kg (237 lb) 109.8 kg (242 lb) 109.9 kg (242 lb 4.6 oz) Intake/Output Summary: (Last 24 hours) Intake/Output Summary (Last 24 hours) at 04/09/17 1644 Last data filed at 04/09/17 1630 Gross per 24 hour Intake 440 ml Output 250 ml Net 190 ml Stool Occurrence: 1 Physical Exam Gen: Alert and Oriented, No Acute Distress HEENT: Sclera normal, wearing helment CV: no JVD, S1 and S2 normal, no rubs, murmurs or gallops Pulm: Clear to Auscultation bilateral, slightly diminished GI: BS+ x4, non-tender to palpation Neuro: facial droop, memory impaired Ext: trace edema, nontender Skin: no rash, dry Access: LUE AVF with good thrill Lab Review 24-hour labs: Results for orders placed or performed during the hospital encounter of (from the past 24 hour(s)) POTASSIUM Collection Time: 04/08/17 6:20 PM Result Value Ref Range Potassium 5.2 (H) 3.5 - 5.1 MMOL/L CBC AND DIFF Collection Time: 04/09/17 7:28 AM Result Value Ref Range White Blood Cells 3.6 (L) 4.5 - 11.0 K/UL RBC 2.35 (L) 4.4 - 5.5 M/UL Hemoglobin 7.5 (L) 13.5 - 16.5 GM/DL Hematocrit 21.1 (L) 40 - 50 % MCV 89.9 80 - 100 FL MCH 32.0 26 - 34 PG MCHC 35.6 32.0 - 36.0 G/DL RDW 14.2 11 - 15 % Platelet Count 116 (L) 150 - 400 K/UL MPV 8.6 7 - 11 FL Segmented Neutrophils 73 41 - 77 % Lymphocytes 12 (L) 24 - 44 % Monocytes 9 4 - 12 % Eosinophil 3 0 - 5 % Myelocyte 3 % Ovalocyte PRESENT Platelet Estimate SLT DEC Absolute Neutrophil Count Manual 2.63 1.8 - 7.0 K/UL COMPREHENSIVE METABOLIC PANEL Collection Time: 04/09/17 7:28 AM Result Value Ref Range Sodium 130 (L) 137 - 147 MMOL/L Potassium 5.3 (H) 3.5 - 5.1 MMOL/L Chloride 94 (L) 98 - 110 MMOL/L Glucose 128 (H) 70 - 100 MG/DL Blood Urea Nitrogen 88 (H) 7 - 25 MG/DL Creatinine 14.29 (H) 0.4 - 1.24 MG/DL Calcium 8.8 8.5 - 10.6 MG/DL Total Protein 7.0 6.0 - 8.0 G/DL Total Bilirubin 0.5 0.3 - 1.2 MG/DL Albumin 3.4 (L) 3.5 - 5.0 G/DL Alk Phosphatase 86 25 - 110 U/L AST (SGOT) 14 7 - 40 U/L CO2 23 21 - 30 MMOL/L ALT (SGPT) 12 7 - 56 U/L Anion Gap 13 (H) 3 - 12 eGFR Non 4 (L) >60 mL/min eGFR 4 (L) >60 mL/min MAGNESIUM Collection Time: 04/09/17 7:28 AM Result Value Ref Range Magnesium 2.0 1.6 - 2.6 mg/dL PHOSPHORUS Collection Time: 04/09/17 7:28 AM Result Value Ref Range Phosphorus 3.8 2.0 - 4.0 MG/DL Point of Care Testing (Last 24 hours) Glucose: (!) 128 (04/09/17 9524) Radiology and other Diagnostics Review: Pertinent radiology reviewed. Andrew Barnes Pager [phone] Associated attestation - Lety Vallejo MD - 04/09/2017 5:09 PM SECONDARY HISTORY TEACHER I personally performed the rubin portions of the visit, discussed case with fellow Dr. Barnes and concur with his documentation of history, physical exam, assessment, and treatment plan unless otherwise noted. I saw pt while in his room this am. Hyperkalemic with hiugh BUN and require HD but pt refuses earlier today and after multiple attempts to convince him he agrees . Discussed risk of not getting HD and hyperkalemia and pt expressed understanding. Pt has capacity to refuse treatment. Pt then seen and examined while on HD. Tolerating it well. LUE AVF functioning well. 2 K bath, 3.5 hrs with 4 Lr UF as BP tolerates. * Adelita Gómez, RN - 04/09/2017 3:50 PM SECONDARY HISTORY TEACHER Pt. leaving unit w/ transport for HD via bed. * Adelita Gómez, TENZIN - 04/09/2017 3:05 PM SECONDARY HISTORY TEACHER Pt.'s BP elevated at 185/73. RN notified Dr. Chen that SBP is still in 180s after one dose of PRN Hydralazine. Per MD, BP will continue to be elevated since pt. needs HD. No new orders received. * Aleah Koo, TENZIN - 04/09/2017 10:43 AM SECONDARY HISTORY TEACHER Assumed care of pt at 0700 this AM. VSS on initial assessment. Not on tele. Tolerating RA. Desires 4L for comfort. Pain in head. Desires no intervention at this time. Adequate UOP overnight. Last BM yesterday. Pt SBA. CO at bedside. Droplet precautions in place. No other needs at this time. Will continue to monitor. * Shannen Leung, RN - 04/08/2017 10:32 PM SECONDARY HISTORY TEACHER Pt AOx4, BP elevated, evening blood pressure meds given. CO at bedside. Pt c/o head pain 10/15, see eMAR. Will continue to monitor. 0420: Pt refused am labs. * Jasmin Levine, TENZIN - 04/08/2017 7:35 PM SECONDARY HISTORY TEACHER Formatting of this note may be different from the original. 04/08/17 1824 Vitals Pulse 62 Respirations 16 PER MINUTE SpO2 95 % O2 Delivery NC O2 Liter Flow 4 lpm BP 181/85 Sent text page to MD about change in vital signs. No new orders at this time. Will continue to monitor. * Pramod Chen MD - 04/08/2017 1:07 PM SECONDARY HISTORY TEACHER Formatting of this note may be different from the original. Name: Naren Mayfield Admission Date: 04/03/2017 Today's Date: 04/08/17 LOS: 5 ASSESSMENT AND PLAN 51yoM w/ PMH of recent ruptured R MCA aneurysm w/ hematoma and sub-arachnoid hemorrhage s/p clipping, R hemicraniotomy dc'd on 03/26, ESRD on HD, chronic hypoxia (3-4L), COPD, HTN, known L pleural effusion transferred from OSH w/ fever, acute on chronic hypoxia Chronic hypoxic respiratory failure - due to CHF - baseline 3-4L, was able to tapered off, but since he is refusing HD he is back to his 4l NC - CT on admit shows stable small L pleural effusion, atelectasis and possible pneumonitis - RVP + for influenza B and rhinovirus - urine strep and legionella Ag negative - sputum culture 04/04/17 NORMAL OROPHARYNGEAL EVELIA - blood cultures 04/04/17 NGTD - cont tamiflu for 5 days total 04/04 - cont doxy given elevated pro-calcitonin for 5 days 04/04 - cont albuterol, ipratropium S/p MCA aneurysm rupture, hematoma, subarachnoid hemorrhage - CT head 04/03 Previous right pterional craniectomy with increase in size of the adjacent subgaleal fluid collection since 03/22/2017 suggestive of enlarging pseudomeningocele. - neurosurg consulted: no acute neurosurgical intervention, unlikely this is the cause of lethargy - cont on CO for impulsive behavior 2/2 TBI/vascular dementia - cont Keppra for seizure ppx - discussed with neurosurgery: Cranioplasty could be performed near the end of this hospital stay if he is found to be stable for surgical procedure from a medical standpoint. If it is felt more prudent to postpone cranioplasty to a later date we can help facilitate the procedure as an outpatient. This procedure is not an emergency. Hepatosplenomegaly - CT abd and pelvis 04/03/17: Development of moderate splenomegaly and trace abdominal ascites which may be secondary to portal hypertension.Persistent moderate hepatomegaly which may be enlarged due to chronic passive congestion. Trace ascites - My suspicion is that this is all related to HFpEF (see below) - liver US with doppler 04/07 pending - LFTs normal - no prior history of liver disease - treat the cause HFpEF, acute on chronic/exacerbation - patient has orthopnea/exertional dyspnea,on exam JVD present - BNP 2400 04/04/17 - CT chest 04/03/17 Moderate cardiomegaly with pulmonary venous congestion, subtle interlobular septal thickening, and persistent diffuse groundglass opacities suggestive of CHF and pulmonary edema. - TTE 04/04/17 Left ventricular diastolic dysfunction. Elevated left atrial pressure. Severely elevated central venous pressure (>15 mm Hg). Mild concentric LVH is seen. The EF is about 60%, The estimated PA systolic pressure is 45-50 mm Hg. - volume management via HD which he is refusing, since he produces urine added lasix 40 PO BID - strict input and output Pancytopenia/ Anemia, normocytic - due to hepatosplenomegaly - b12, folate normal - iron studies w/ AoCD and RADHA - soluble transferrin receptor is normal - Haptoglobin in normal - rules out hemolysis - retic count is inappropriately normal - peripheral smear: PANCYTOPENIA., NORMOCYTIC ANEMIA., ABSOLUTELYMPHOCYTOPENIA - s/p 1 PRBC and platelets Pancytopenia/Thrombocytopenia - due to hepatosplenomegaly - OD of 0.97 makes true HIT only 1-5% - not known to have thrombocytopenia, during his last admission plts were normal - presented with platelets of 97 on 04/04 - heparin induced Ab 04/04 positive - serotonin release assay pending - peripheral smear: MODERATE THROMBOCYTOPENIA WITH NORMAL PLATELET MORPHOLOGY - plt goal is >100 ESRD/hyperkalemia - on HD TTS - access LUE AVF - target EDW 103 kg - daily standing weight, strict I&O - renal dosing of medications - renal following - patient refusing HD, as per psych he is competent to refuse HD - repeat potassium if still elevated will treat medically Trop elevation - 2/2 poor renal clearance and recent WIRE TWISTER insult - chronically elevated since 03/10 with highest 0.17 - EKG NSR, no ischemic changes - EF is normal on Echo w/o areas of hypokinesis, for more details see above - 0.17>0.16 Dysphagia - APPAREL MERCHANDISER consulted - mild oropharyngeal dysphagia given RHD w/ impulsivity - [facility] soft solid diet and thin liquids HTN - cont norvasc, cardura, clonidin - losartan stopped due to hyperkalemia Plan - has extensive discussion with the patient about the importance of daily lab draws and HD, he understands the risks (pulmonary edema, hyperkalemia, uremia etc) of refusing HD, he has capacity to refuse treatment - Discussed with neurosurgery: Cranioplasty can be performed during this hospitalization if he is medically stable, it is not emergency, can be performed at later time. Patient refusing HD which is in combination with HFpEF resulting in worsening of hypoxemic respiratory failure and pulmonary edema, plus hyperkalemia due to HD refusal, pancytopenia etc. Because all of the above patient is not medically optimized for surgery unless it is an emergency. Increased the lasix to 60 oral BID Discontinue losartan due to hyperkalemia Recheck potassium SUBJECTIVE Patient seen and examined. Overnight: No interval events. During this AM visit, patient states orthopnea and exertional SOB, but continues to refuse HD treatment as well as labs ROS: >>> Denies fever/chills >>> Denies chest pain, SOB >>> Denies N/V/D >>> Denies dizziness/lightheadedness OBJECTIVE VITAL SIGNS BP: 160/66 (04/07 2307) Temp: 36.5 C (97.7 F) (04/08 1144) Pulse: 63 (04/08 1144) Respirations: 16 PER MINUTE (04/08 1144) SpO2: 96 % (04/08 1144) O2 Delivery: Nasal Cannula (04/08 1144) PHYSICAL EXAM General: easily distractedVS as above. No acute distress . Helmet in place Eyes: No conjunctival injection. Pupil equal on both sizeNo scleral icterus. Ears, nose, mouth, and throat : No erythema. MMM. No erythema, exudate noted. Neck: Symmetric appearance without crepitus, no obvious mass or noticeable swelling, Lungs: No use of accessory muscles. Clear to auscultation bilaterally without wheezes, rales, or rhonchi. Cardiovascular: Regular rate, S1, S2 normal, no murmurs, clicks, rubs, or gallops appreciated . 2+ and symmetric, all extremities. No edema in BLE. Abdomen: BS+, soft, ND, no guarding or rigidity. Nontender to palpation. Skin: Skin color normal, no obvious evidence of rashes. Musculoskeletal: Normal 5/5 hand-enrollment representative strength and distal strength in BLE. ROM normal. No joints swelling or erythema/tenderness Neurologic: Alerted and oriented x 3. 5/5 hand-enrollment representative and distal strenght. Normal ROM. No Sensation grossly intact. No focal weakness. Psych:Alerted and oriented, calm, normal affect LAB REVIEW Recent Labs 04/07/17 0749 04/08/17 0935 WBC 2.3* 3.1* HGB 7.0* 7.5* HCT 21.0* 22.6* PLTCT 113* 119* MCV 91.3 90.6 Recent Labs 04/07/17 0749 04/08/17 0935 NA 134* 132* K 4.7 5.3* CL 96* 94* CO2 23 22 BUN 66* 82* CR 11.72* 12.99* GAP 15* 16* MG 2.1 2.1 PO4 4.9* 4.2* GFR 5* 4* ALBUMIN 3.4* 3.6 TOTBILI 0.4 0.5 AST 19 18 ALT 14 15 MEDICATIONS Scheduled Meds: amLODIPine (NORVASC) tablet 10 mg 10 mg Oral QDAY atorvastatin (LIPITOR) tablet 10 mg 10 mg Oral QHS calcium acetate (PHOSLO) capsule 1,334 mg 1,334 mg Oral TID w/ meals cloNIDine (CATAPRESS) tablet 0.1 mg 0.1 mg Oral BID doxazosin (CARDURA) tablet 8 mg 8 mg Oral QHS doxycycline (VIBRAMYCIN) tablet 100 mg 100 mg Oral BID epoetin carine (PROCRIT) injection 20,000 Units 20,000 Units Intravenous Once per day on Sat furosemide (LASIX) tablet 40 mg 40 mg Oral BID(-) levETIRAcetam (KEPPRA) tablet 1,500 mg 1,500 mg Oral QDAY losartan (COZAAR) tablet 100 mg 100 mg Oral QDAY melatonin tablet 3 mg 3 mg Oral QHS metoprolol XL (TOPROL XL) tablet 100 mg 100 mg Oral BID nicotine (NICODERM CQ STEP 3) 7 mg/day patch 1 patch 1 patch Transdermal QDAY pantoprazole (PROTONIX) injection 40 mg 40 mg Intravenous BID(02-26) senna/docusate (SENOKOT-S) tablet 2 tablet 2 tablet Oral BID sodium chloride (SEA MIST) 0.65 % nasal spray 1-2 spray 1-2 spray Each Nostril TID Continuous Infusions: PRN and Respiratory Meds:acetaminophen Q4H PRN, albuterol 0.5% Q4H PRN, hydrALAZINE Q4H PRN, ipratropium bromide Q4H PRN, nicotine polacrilex Q1H PRN, polyethylene glycol 3350 BID PRN RADIOLOGY AND OTHER DIAGNOSTIC PROCEDURES REVIEW As in A/P Radiology and Other Diagnostic Procedures Review: 04/08/2017 Pertinent radiology reviewed. * Andrew Barnes - 04/08/2017 11:47 AM SECONDARY HISTORY TEACHER Formatting of this note may be different from the original. General Progress Note Name: Naren Mayfield Today's Date: 04/08/2017 Admission Date: 04/03/2017 LOS: 5 days Assessment/Plan: Active Problems: Subarachnoid bleed (HCC) Acquired skull defect Pneumonia Chronic hypoxemic respiratory failure (HCC) Vascular dementia without behavioral disturbance ESRD (end stage renal disease) on dialysis (HCC) Acute blood loss as cause of postoperative anemia Normocytic anemia Renovascular hypertension Influenza B Rhinovirus infection COPD with hypoxia (HCC) Oropharyngeal dysphagia Pancytopenia (HCC) Troponin level elevated TBI (traumatic brain injury) (HCC) Naren Mayfield is a 51 y.o. male with ESRD admitted with influenza. 1. ESRD -on HD TTS, last HD session unknown -access LUE AVF -target EDW 103 kg 2. Influenza 3. Hx of SAH with residual neurologic deficits 4. Anemia of CKD with iron deficiency 5. Secondary hyperparathyroidism. 6. HTN with component of volume dependence Recommendations: -patient refused HD today -patient prefers to dialyze near home where he can visit daughter -recommend to make arrangements for patient to return to as close to home as possible -daily standing weight, strict I&O -renal dosing of medications Andrew Barnes MD PGY-4 Nephrology Fellow Pager [phone] Subjective Naren Mayfield is a 51 y.o. male. Patient seen this morning and refused to go to hemodialysis. He reports that he is being discharged today and can have HD tomorrow in [place], but there are no notes indicating a discharge pending. Medications Scheduled Meds: amLODIPine (NORVASC) tablet 10 mg 10 mg Oral QDAY atorvastatin (LIPITOR) tablet 10 mg 10 mg Oral QHS calcium acetate (PHOSLO) capsule 1,334 mg 1,334 mg Oral TID w/ meals cloNIDine (CATAPRESS) tablet 0.1 mg 0.1 mg Oral BID doxazosin (CARDURA) tablet 8 mg 8 mg Oral QHS doxycycline (VIBRAMYCIN) tablet 100 mg 100 mg Oral BID epoetin carine (PROCRIT) injection 20,000 Units 20,000 Units Intravenous Once per day on Sat furosemide (LASIX) tablet 40 mg 40 mg Oral BID(12-23) levETIRAcetam (KEPPRA) tablet 1,500 mg 1,500 mg Oral QDAY losartan (COZAAR) tablet 100 mg 100 mg Oral QDAY melatonin tablet 3 mg 3 mg Oral QHS metoprolol XL (TOPROL XL) tablet 100 mg 100 mg Oral BID nicotine (NICODERM CQ STEP 3) 7 mg/day patch 1 patch 1 patch Transdermal QDAY pantoprazole (PROTONIX) injection 40 mg 40 mg Intravenous BID(02-26) senna/docusate (SENOKOT-S) tablet 2 tablet 2 tablet Oral BID sodium chloride (SEA MIST) 0.65 % nasal spray 1-2 spray 1-2 spray Each Nostril TID Continuous Infusions: PRN and Respiratory Meds:acetaminophen Q4H PRN, albuterol 0.5% Q4H PRN, hydrALAZINE Q4H PRN, ipratropium bromide Q4H PRN, nicotine polacrilex Q1H PRN, polyethylene glycol 3350 BID PRN Review of Systems: Denies fever, soa, and chest pain Objective: Vital Signs: Last Filed Vital Signs: 24 Hour Range BP: 160/66 (04/077) Temp: 36.2 C (97.2 F) (04/08 739) Pulse: 62 (04/08 739) Respirations: 16 PER MINUTE (04/08 739) SpO2: 94 % (04/08 739) O2 Delivery: None (Room Air) (04/08 739) BP: (148-171)/(61-84) Temp: [36.2 C (97.2 F)-36.5 C (97.7 F)] Pulse: [52-63] Respirations: [16 PER MINUTE-20 PER MINUTE] SpO2: [94 %-100 %] O2 Delivery: None (Room Air) Intensity Pain Scale 0-10 (Pain 1): 7 (04/08/17 0930) Vitals: 04/04/17 1730 04/04/17 2000 04/07/17 0300 Weight: 109 kg (240 lb 4.8 oz) 107 kg (235 lb 14.3 oz) 107.5 kg (237 lb) Intake/Output Summary: (Last 24 hours) Intake/Output Summary (Last 24 hours) at 04/08/17 1148 Last data filed at 04/07/17 2040 Gross per 24 hour Intake 416 ml Output 0 ml Net 416 ml Stool Occurrence: 0 Physical Exam Gen: Alert and Oriented, No Acute Distress HEENT: Sclera normal, wearing helment CV: no JVD, S1 and S2 normal, no rubs, murmurs or gallops Pulm: Clear to Auscultation bilateral, slightly diminished GI: BS+ x4, non-tender to palpation Neuro: facial droop, memory impaired Ext: trace edema, nontender Skin: no rash, dry Access: LUE AVF with good thrill Lab Review 24-hour labs: Results for orders placed or performed during the hospital encounter of (from the past 24 hour(s)) COMPREHENSIVE METABOLIC PANEL Collection Time: 04/08/17 9:35 AM Result Value Ref Range Sodium 132 (L) 137 - 147 MMOL/L Potassium 5.3 (H) 3.5 - 5.1 MMOL/L Chloride 94 (L) 98 - 110 MMOL/L Glucose 110 (H) 70 - 100 MG/DL Blood Urea Nitrogen 82 (H) 7 - 25 MG/DL Creatinine 12.99 (H) 0.4 - 1.24 MG/DL Calcium 8.8 8.5 - 10.6 MG/DL Total Protein 7.4 6.0 - 8.0 G/DL Total Bilirubin 0.5 0.3 - 1.2 MG/DL Albumin 3.6 3.5 - 5.0 G/DL Alk Phosphatase 88 25 - 110 U/L AST (SGOT) 18 7 - 40 U/L CO2 22 21 - 30 MMOL/L ALT (SGPT) 15 7 - 56 U/L Anion Gap 16 (H) 3 - 12 eGFR Non 4 (L) >60 mL/min eGFR 5 (L) >60 mL/min CBC AND DIFF Collection Time: 04/08/17 9:35 AM Result Value Ref Range White Blood Cells 3.1 (L) 4.5 - 11.0 K/UL RBC 2.49 (L) 4.4 - 5.5 M/UL Hemoglobin 7.5 (L) 13.5 - 16.5 GM/DL Hematocrit 22.6 (L) 40 - 50 % MCV 90.6 80 - 100 FL MCH 30.1 26 - 34 PG MCHC 33.3 32.0 - 36.0 G/DL RDW 14.2 11 - 15 % Platelet Count 119 (L) 150 - 400 K/UL MPV 8.9 7 - 11 FL Neutrophils 71 41 - 77 % Lymphocytes 14 (L) 24 - 44 % Monocytes 9 4 - 12 % Eosinophils 6 (H) 0 - 5 % Basophils 0 0 - 2 % Absolute Neutrophil Count 2.20 1.8 - 7.0 K/UL Absolute Lymph Count 0.40 (L) 1.0 - 4.8 K/UL Absolute Monocyte Count 0.30 0 - 0.80 K/UL Absolute Eosinophil Count 0.20 0 - 0.45 K/UL Absolute Basophil Count 0.00 0 - 0.20 K/UL MAGNESIUM Collection Time: 04/08/17 9:35 AM Result Value Ref Range Magnesium 2.1 1.6 - 2.6 mg/dL PHOSPHORUS Collection Time: 04/08/17 9:35 AM Result Value Ref Range Phosphorus 4.2 (H) 2.0 - 4.0 MG/DL Point of Care Testing (Last 24 hours) Glucose: (!) 110 (04/08/17 0935) Radiology and other Diagnostics Review: Pertinent radiology reviewed. Andrew Barnes Pager [phone] Associated attestation - Lety Vallejo MD - 04/08/2017 1:12 PM SECONDARY HISTORY TEACHER Formatting of this note may be different from the original. ATTESTATION I personally performed the rubin portions of the E/M visit, discussed case with fellow Dr. Barnes and concur with his documentation of history, physical exam, assessment, and treatment plan unless otherwise noted. CT chest and abd reviewe Hyperkalemic and require HD but refuses. Discussed risk of not getting HD and pt expressed understanding. Pt has capacity to refuse treatment. He is emotional and wants to be close to his 9 y/o daughter. Prefers to get HD in his out pt unit. Case discussed with Dr. Chen. Pancytopenia improving If pt continue to refuse HD it will be appropriate to treat hyperkalemia medically. Staff name: LETY VALLEJO MD Date: 04/08/2017 * Pramod Chen MD - 04/07/2017 11:16 AM SECONDARY HISTORY TEACHER Formatting of this note may be different from the original. Name: Naren Mayfield Admission Date: 04/03/2017 Today's Date: 04/07/17 LOS: 4 ASSESSMENT AND PLAN 51yoM w/ PMH of recent ruptured R MCA aneurysm w/ hematoma and sub-arachnoid hemorrhage s/p clipping, R hemicraniotomy dc'd on 03/26, ESRD on HD, chronic hypoxia (3-4L), COPD, HTN, known L pleural effusion transferred from OSH w/ fever, acute on chronic hypoxia Chronic hypoxic respiratory failure - baseline 3-4L, was able to tapered off, but since he is refusing HD he is back to his 4l NC - CT on admit shows stable small L pleural effusion, atelectasis and possible pneumonitis - RVP + for influenza B and rhinovirus - urine strep and legionella Ag negative - sputum culture 04/04/17 NORMAL OROPHARYNGEAL EVELIA - blood cultures 04/04/17 NGTD - cont tamiflu for 5 days total 04/04 - cont doxy given elevated pro-calcitonin for 5 days 04/04 - cont albuterol, ipratropium S/p MCA aneurysm rupture, hematoma, subarachnoid hemorrhage - CT head 04/03 Previous right pterional craniectomy with increase in size of the adjacent subgaleal fluid collection since 03/22/2017 suggestive of enlarging pseudomeningocele. - neurosurg consulted: no acute neurosurgical intervention, unlikely this is the cause of lethargy - cont on CO for impulsive behavior 2/2 TBI/vascular dementia - cont Keppra for seizure ppx Hepatosplenomegaly - CT abd and pelvis 04/03/17: Development of moderate splenomegaly and trace abdominal ascites which may be secondary to portal hypertension.Persistent moderate hepatomegaly which may be enlarged due to chronic passive congestion. Trace ascites - My suspicion is that this is all related to HFpEF (see below) - liver US with doppler couldn't not be completed because patient couldn't lay down - LFTs normal - no prior history of liver disease - I assume this is contributing to pancytopenia HFpEF, acute on chronic/exacerbation - patient has orthopnea/exertional dyspnea,on exam JVD present - BNP 2400 04/04/17 - CT chest 04/03/17 Moderate cardiomegaly with pulmonary venous congestion, subtle interlobular septal thickening, and persistent diffuse groundglass opacities suggestive of CHF and pulmonary edema. - TTE 04/04/17 Left ventricular diastolic dysfunction. Elevated left atrial pressure. Severely elevated central venous pressure (>15 mm Hg). Mild concentric LVH is seen. The EF is about 60%, The estimated PA systolic pressure is 45-50 mm Hg. - volume management via HD which he is refusing, since he produces urine added lasix 40 PO BID - strict input and output Pancytopenia/ Anemia, normocytic - b12, folate normal - iron studies w/ AoCD and RADHA - soluble transferrin receptor is normal - Haptoglobin in normal - rules out hemolysis - retic count is inappropriately normal - peripheral smear: PANCYTOPENIA., NORMOCYTIC ANEMIA., ABSOLUTELYMPHOCYTOPENIA - s/p 1 PRBC and platelets Pancytopenia/Thrombocytopenia - OD of 0.97 makes true HIT only 1-5% - not known to have thrombocytopenia, during his last admission plts were normal - presented with platelets of 97 on 04/04 - heparin induced Ab 04/04 positive - serotonin release assay pending - peripheral smear: MODERATE THROMBOCYTOPENIA WITH NORMAL PLATELET MORPHOLOGY - plt goal is >100 ESRD - on HD TTS - access LUE AVF - target EDW 103 kg - daily standing weight, strict I&O - renal dosing of medications - renal following - patient refusing HD Trop elevation - / poor renal clearance and recent WIRE TWISTER insult - chronically elevated since 03/10 with highest 0.17 - EKG NSR, no ischemic changes - EF is normal on Echo w/o areas of hypokinesis, for more details see above - 0.17>0.16 Dysphagia - APPAREL MERCHANDISER consulted - mild oropharyngeal dysphagia given RHD w/ impulsivity - [facility] soft solid diet and thin liquids HTN - cont norvasc, cardura, losartan - add clonidine Plan - psych consulted: patient deemed having capacity to refuse HD - liver US wasn't done because he couldn't lay down in radiology The above mentioned plan and the hospital course was discussed in detail with the patient Care coordination was discussed with case preparer and liner and social work nurse and the nurse Medication side effects explained in detail Imaging results discussed with the patient - rec outpatint follow up Patient agrees and verbalizes understanding SUBJECTIVE Patient seen and examined. Overnight: No interval events. During this AM visit, patient states orthopnea and exertional SOB ROS: >>> Denies fever/chills >>> Denies chest pain, SOB >>> Denies N/V/D >>> Denies dizziness/lightheadedness OBJECTIVE VITAL SIGNS BP: 156/73 (04/07 700) Temp: 36.3 C (97.4 F) (04/07 700) Pulse: 55 (04/07 700) Respirations: 20 PER MINUTE (04/07 700) SpO2: 100 % (04/07 700) O2 Delivery: Nasal Cannula (04/07 700) PHYSICAL EXAM General: easily distractedVS as above. No acute distress . Helmet in place Eyes: No conjunctival injection. Pupil equal on both sizeNo scleral icterus. Ears, nose, mouth, and throat : No erythema. MMM. No erythema, exudate noted. Neck: Symmetric appearance without crepitus, no obvious mass or noticeable swelling, Lungs: No use of accessory muscles. Clear to auscultation bilaterally without wheezes, rales, or rhonchi. Cardiovascular: Regular rate, S1, S2 normal, no murmurs, clicks, rubs, or gallops appreciated . 2+ and symmetric, all extremities. No edema in BLE. Abdomen: BS+, soft, ND, no guarding or rigidity. Nontender to palpation. Skin: Skin color normal, no obvious evidence of rashes. Musculoskeletal: Normal 5/5 hand-enrollment representative strength and distal strength in BLE. ROM normal. No joints swelling or erythema/tenderness Neurologic: Alerted and oriented x 3. 5/5 hand-enrollment representative and distal strenght. Normal ROM. No Sensation grossly intact. No focal weakness. Psych:Alerted and oriented, calm, normal affect LAB REVIEW Recent Labs 04/06/17 0746 04/07/17 0749 WBC 1.8* 2.3* HGB 7.1* 7.0* HCT 20.6* 21.0* PLTCT 115* 113* MCV 88.3 91.3 Recent Labs 04/06/17 0746 04/07/17 0749 NA 135* 134* K 4.4 4.7 CL 96* 96* CO2 26 23 BUN 53* 66* CR 10.54* 11.72* GAP 13* 15* MG 2.2 2.1 PO4 5.1* 4.9* GFR 5* 5* ALBUMIN 3.6 3.4* TOTBILI 0.5 0.4 AST 22 19 ALT 16 14 MEDICATIONS Scheduled Meds: albuterol 0.5% (PROVENTIL; VENTOLIN) nebulizer solution 2.5 mg 2.5 mg Inhalation BID & PRN amLODIPine (NORVASC) tablet 10 mg 10 mg Oral QDAY atorvastatin (LIPITOR) tablet 10 mg 10 mg Oral QHS calcium acetate (PHOSLO) capsule 1,334 mg 1,334 mg Oral TID w/ meals cloNIDine (CATAPRESS) tablet 0.1 mg 0.1 mg Oral BID doxazosin (CARDURA) tablet 8 mg 8 mg Oral QHS doxycycline (VIBRAMYCIN) tablet 100 mg 100 mg Oral BID epoetin carine (PROCRIT) injection 20,000 Units 20,000 Units Intravenous Once per day on Sat furosemide (LASIX) tablet 40 mg 40 mg Oral BID(12-23) ipratropium bromide (ATROVENT) 0.02 % nebulizer solution 0.5 mg 0.5 mg Inhalation BID & PRN levETIRAcetam (KEPPRA) tablet 1,500 mg 1,500 mg Oral QDAY losartan (COZAAR) tablet 100 mg 100 mg Oral QDAY melatonin tablet 3 mg 3 mg Oral QHS metoprolol XL (TOPROL XL) tablet 100 mg 100 mg Oral BID nicotine (NICODERM CQ STEP 3) 7 mg/day patch 1 patch 1 patch Transdermal QDAY pantoprazole (PROTONIX) injection 40 mg 40 mg Intravenous BID(02-26) senna/docusate (SENOKOT-S) tablet 2 tablet 2 tablet Oral BID sodium chloride (SEA MIST) 0.65 % nasal spray 1-2 spray 1-2 spray Each Nostril TID Continuous Infusions: PRN and Respiratory Meds:acetaminophen Q4H PRN, hydrALAZINE Q4H PRN, nicotine polacrilex Q1H PRN, polyethylene glycol 3350 BID PRN, sodium chloride 0.9% (NS) IP Dialysis PRN, sodium chloride 0.9% (NS) IP Dialysis PRN, sodium chloride 0.9 % (NS) IP Dialysis PRN RADIOLOGY AND OTHER DIAGNOSTIC PROCEDURES REVIEW As in A/P Radiology and Other Diagnostic Procedures Review: 04/07/2017 Pertinent radiology reviewed. * Luis Valverde, RT - 04/07/2017 10:00 AM SECONDARY HISTORY TEACHER Formatting of this note may be different from the original. RESPIRATORY THERAPY ADULT PROTOCOL EVALUATION RESPIRATORY PROTOCOL PLAN Medications Albuterol/Ipratropium: Neb PRN Note: If indicated by protocol, medication orders will be placed by therapist. Procedures Vibrating PEP Therapy: Discontinued (encouraged pt continue performing on own) Oxygen/Humidity: O2 to keep SpO2 > 92% Monitoring: Pulse oximetry BID & PRN PATIENT EVALUATION RESULTS Chart Review * Pulmonary Hx: Smoker in home OR smoking cessation > 8 weeks * Surgical Hx: No surgery OR last surgery > 6 weeks ago OR trach/stoma (BA) * Chest X-Ray: Clear OR not available * PFT/Oxygenation: FEV1, PEFR < 70% OR Pa02 < 70 RA OR Sp02 <92% RA OR Fi02 > 0.21 to keep Sp02 > 92% OR < 24 hours post-op (02 & oxim) OR chronic C02 retention (C02) Patient Assessment * Respiratory Pattern: Regular pattern and rate OR good chest excursion with deep breathing * Breath Sounds: Clear apically, but diminished in bases (LE) OR CHF related crackles (02) (oximetry) * Cough / Sputum: Strong, effective cough OR nonproductive * Mental Status: Alert, oriented, cooperative * Activity Level: Ambulatory with assistance Priority Index Total Points: 5 Points * Priority Index: 1+ PRIORITY INDEX GUIDELINES* Priority Points 1 0-9 points 2 9-18 points 3 > 18 points + Pulm Dx or Home Rx *Higher points indicate higher acuity. Therapist: Luis Valverde, Date: 04/07/2017 [place] AC=Airway clearance AM=Aerosolized medication BA=[place] aerosol DB&C=Deep breathe & cough FEV1=Forced expiratory volume in first second) IC=Inspiratory capacity LE=Lung expansion MDI=Metered dose inhaler Neb=Nebulizer O2=Oxygen Oxim=Oximetry PEFR=Peak expiratory flow rate DISASTER RECOVERY SPECIALIST=Rapid Response Team * Nancy Jaime RN - 04/07/2017 3:53 AM SECONDARY HISTORY TEACHER Pt up ambulating this AM. Told multiple times by this RN, chargemaster specialist, and CO that pt needs to wear helmet while out of bed. Pt argumentative and refusing to use helmet at this time. Education provided on risks of not wearing helmet while ambulating. Pt's head appears more swollen this AM. Team notified, no new orders at this time. Will continue to monitor. Pt refusing 0400 lab draw. Will reschedule for 0800 today. Discussed refusal with chargemaster specialist, chargemaster specialist requested that team be notified and for pt's decision making capacity be determined as nursing staff does not feel pt understands the consequences of their decisions. vice president underwriting notified and to pass on to primary team. * Pramod Chen MD - 04/06/2017 6:13 PM SECONDARY HISTORY TEACHER Formatting of this note may be different from the original. Name: Naren Mayfield Admission Date: 04/03/2017 Today's Date: 04/05/17 LOS: 2 ASSESSMENT AND PLAN 51yoM w/ PMH of recent ruptured R MCA aneurysm w/ hematoma and sub-arachnoid hemorrhage s/p clipping, R hemicraniotomy dc'd on 03/26, ESRD on HD, chronic hypoxia (3-4L), COPD, HTN, known L pleural effusion transferred from OSH w/ fever, acute on chronic hypoxia Chronic hypoxic respiratory failure - baseline 3-4L, tapered off, now on room air - CT on admit shows stable small L pleural effusion, atelectasis and possible pneumonitis - RVP + for influenza B and rhinovirus - urine strep and legionella Ag negative - sputum culture 04/04/17 NORMAL OROPHARYNGEAL EVELIA - blood cultures 04/04/17 NGTD - cont tamiflu for 5 days total 04/04 - cont doxy given elevated pro-calcitonin for 5 days 04/04 - cont albuterol, ipratropium S/p MCA aneurysm rupture, hematoma, subarachnoid hemorrhage - CT head 04/03 Previous right pterional craniectomy with increase in size of the adjacent subgaleal fluid collection since 03/22/2017 suggestive of enlarging pseudomeningocele. - neurosurg consulted: no acute neurosurgical intervention, unlikely this is the cause of lethargy - cont on CO for impulsive behavior 2/2 TBI/vascular dementia - cont Keppra for seizure ppx Hepatosplenomegaly - CT abd and pelvis 04/03/17: Development of moderate splenomegaly and trace abdominal ascites which may be secondary to portal hypertension.Persistent moderate hepatomegaly which may be enlarged due to chronic passive congestion. Trace ascites - My suspicion is that this is all related to HFpEF (see below) - will do liver US with doppler - LFTs normal - no prior history of liver disease - I assume this is contributing to pancytopenia HFpEF, acute on chronic/exacerbation - patient has orthopnea/exertional dyspnea,on exam JVD present - BNP 2400 04/04/17 - CT chest 04/03/17 Moderate cardiomegaly with pulmonary venous congestion, subtle interlobular septal thickening, and persistent diffuse groundglass opacities suggestive of CHF and pulmonary edema. - TTE 04/04/17 Left ventricular diastolic dysfunction. Elevated left atrial pressure. Severely elevated central venous pressure (>15 mm Hg). Mild concentric LVH is seen. The EF is about 60%, The estimated PA systolic pressure is 45-50 mm Hg. - volume management via HD, since he produces urine will add lasix 40 Po BID Pancytopenia/ Anemia, normocytic - b12, folate normal - iron studies w/ AoCD and RADHA - soluble transferrin receptor is normal - Haptoglobin in normal - rules out hemolysis - retic count is inappropriately normal - peripheral smear: PANCYTOPENIA., NORMOCYTIC ANEMIA., ABSOLUTELYMPHOCYTOPENIA - s/p 1 PRBC and platelets Pancytopenia/Thrombocytopenia - OD of 0.97 makes true HIT only 1-5% - not known to have thrombocytopenia, during his last admission plts were normal - presented with platelets of 97 on 04/04 - heparin induced Ab 04/04 positive - serotonin release assay pending - peripheral smear: MODERATE THROMBOCYTOPENIA WITH NORMAL PLATELET MORPHOLOGY - plt goal is >100 ESRD - on HD TTS - access LUE AVF - target EDW 103 kg - daily standing weight, strict I&O - renal dosing of medications - renal following Trop elevation - 05/10 poor renal clearance and recent WIRE TWISTER insult - chronically elevated since 03/10 with highest 0.17 - EKG NSR, no ischemic changes - EF is normal on Echo w/o areas of hypokinesis, for more details see above - 0.17>0.16 Dysphagia - APPAREL MERCHANDISER consulted - mild oropharyngeal dysphagia given RHD w/ impulsivity - Mech soft solid diet and thin liquids HTN - cont norvasc, cardura, losartan - add clonidine Plan - started on lasix - patient refused HD - changed to low potassium diet as per renal recs - deescalate oxygen - further work up of hepatosplenomegaly with liver US The above mentioned plan and the hospital course was discussed in detail with the patient Care coordination was discussed with case preparer and liner and social work nurse and the nurse Medication side effects explained in detail Imaging results discussed with the patient - rec outpatint follow up Patient agrees and verbalizes understanding SUBJECTIVE Patient seen and examined. Overnight: No interval events. During this AM visit, patient states orthopnea and exertional SOB ROS: >>> Denies fever/chills >>> Denies chest pain, SOB >>> Denies N/V/D >>> Denies dizziness/lightheadedness OBJECTIVE VITAL SIGNS BP: 148/80 (04/05 1915) Temp: 36.8 C (98.2 F) (04/05 1915) Pulse: 71 (04/05 1915) Respirations: 20 PER MINUTE (04/05 1915) SpO2: 98 % (04/05 1915) O2 Delivery: Nasal Cannula (04/05 1915) PHYSICAL EXAM General: easily distractedVS as above. No acute distress . Helmet in place Eyes: No conjunctival injection. Pupil equal on both sizeNo scleral icterus. Ears, nose, mouth, and throat : No erythema. MMM. No erythema, exudate noted. Neck: Symmetric appearance without crepitus, no obvious mass or noticeable swelling, Lungs: No use of accessory muscles. Clear to auscultation bilaterally without wheezes, rales, or rhonchi. Cardiovascular: Regular rate, S1, S2 normal, no murmurs, clicks, rubs, or gallops appreciated . 2+ and symmetric, all extremities. No edema in BLE. Abdomen: BS+, soft, ND, no guarding or rigidity. Nontender to palpation. Skin: Skin color normal, no obvious evidence of rashes. Musculoskeletal: Normal 5/5 hand-enrollment representative strength and distal strength in BLE. ROM normal. No joints swelling or erythema/tenderness Neurologic: Alerted and oriented x 3. 5/5 hand-enrollment representative and distal strenght. Normal ROM. No Sensation grossly intact. No focal weakness. Psych:Alerted and oriented, calm, normal affect LAB REVIEW Recent Labs 04/04/17 0033 04/04/17 0746 04/05/17 0425 WBC 4.6 3.5* 2.0* HGB 6.6* 7.0* 7.3* HCT 19.0* 20.4* 20.7* PLTCT 97* 101* 113* MCV 89.9 88.6 89.3 INR 1.2 -- -- Recent Labs 04/04/17 0033 04/05/17 0425 NA 132* 135* K 4.3 4.2 CL 91* 95* CO2 26 27 BUN 50* 37* CR 8.45* 7.39* GAP 15* 13* MG 2.0 2.0 PO4 6.1* 4.5* GFR 7* 8* ALBUMIN 3.7 3.7 TOTBILI 0.5 0.6 AST 21 24 ALT 14 16 MEDICATIONS Scheduled Meds: albuterol 0.5% (PROVENTIL; VENTOLIN) nebulizer solution 2.5 mg 2.5 mg Inhalation BID & PRN amLODIPine (NORVASC) tablet 10 mg 10 mg Oral QDAY atorvastatin (LIPITOR) tablet 10 mg 10 mg Oral QHS calcium acetate (PHOSLO) capsule 1,334 mg 1,334 mg Oral TID w/ meals cloNIDine (CATAPRESS) tablet 0.1 mg 0.1 mg Oral BID doxazosin (CARDURA) tablet 8 mg 8 mg Oral QHS doxycycline (VIBRAMYCIN) tablet 100 mg 100 mg Oral BID epoetin carine (PROCRIT) injection 20,000 Units 20,000 Units Intravenous Once per day on Sat ipratropium bromide (ATROVENT) 0.02 % nebulizer solution 0.5 mg 0.5 mg Inhalation BID & PRN iron sucrose (VENOFER) 300 mg in sodium chloride 0.9% (NS) IVPB 300 mg Intravenous QDAY levETIRAcetam (KEPPRA) tablet 1,500 mg 1,500 mg Oral QDAY losartan (COZAAR) tablet 100 mg 100 mg Oral QDAY melatonin tablet 3 mg 3 mg Oral QHS metoprolol XL (TOPROL XL) tablet 100 mg 100 mg Oral BID nicotine (NICODERM CQ STEP 3) 7 mg/day patch 1 patch 1 patch Transdermal QDAY oseltamivir (TAMIFLU) capsule 30 mg 30 mg Oral Q48H* pantoprazole (PROTONIX) injection 40 mg 40 mg Intravenous BID(02-26) senna/docusate (SENOKOT-S) tablet 2 tablet 2 tablet Oral BID sodium chloride (SEA MIST) 0.65 % nasal spray 1-2 spray 1-2 spray Each Nostril TID Continuous Infusions: PRN and Respiratory Meds:acetaminophen Q4H PRN, hydrALAZINE Q4H PRN, nicotine polacrilex Q1H PRN, polyethylene glycol 3350 BID PRN RADIOLOGY AND OTHER DIAGNOSTIC PROCEDURES REVIEW As in A/P Radiology and Other Diagnostic Procedures Review: 04/05/2017 Pertinent radiology reviewed. * Andrew Barnes - 04/06/2017 4:58 PM SECONDARY HISTORY TEACHER Formatting of this note may be different from the original. General Progress Note Name: Naren Mayfield Today's Date: 04/06/2017 Admission Date: 04/03/2017 LOS: 3 days Assessment/Plan: Active Problems: Subarachnoid bleed (HCC) Acquired skull defect Pneumonia Chronic hypoxemic respiratory failure (HCC) Vascular dementia without behavioral disturbance ESRD (end stage renal disease) on dialysis (HCC) Acute blood loss as cause of postoperative anemia Normocytic anemia Renovascular hypertension Influenza B Rhinovirus infection COPD with hypoxia (HCC) Oropharyngeal dysphagia Pancytopenia (HCC) Troponin level elevated TBI (traumatic brain injury) (HCC) Naren Mayfield is a 51 y.o. male with ESRD admitted with influenza. 1. ESRD -on HD TTS, last HD session unknown -access LUE AVF -target EDW 103 kg 2. Influenza 3. Hx of SAH with residual neurologic deficits 4. Anemia of CKD with iron deficiency 5. Secondary hyperparathyroidism. 6. HTN with component of volume dependence Recommendations: -plan for next HD on Saturday as patient refused today -daily standing weight, strict I&O -renal dosing of medications -please change diet to low potassium and he already has hyperkalemia and is refusing HD Andrew Barnes MD PGY-4 Nephrology Fellow Pager [phone] Subjective Naren Mayfield is a 51 y.o. male. Patient seen this morning and in afternoon. When transport arrived to take him to dialysis he refused. I spent in excess of 15 min discussing with patient the importance of dialysis, the lack of routine HD on Saturday, the risks associated with missed HD and he adamantly refused. He continues to report this delusion of being discharged today and being able to have dialysis in [place]. Medications Scheduled Meds: albuterol 0.5% (PROVENTIL; VENTOLIN) nebulizer solution 2.5 mg 2.5 mg Inhalation BID & PRN amLODIPine (NORVASC) tablet 10 mg 10 mg Oral QDAY atorvastatin (LIPITOR) tablet 10 mg 10 mg Oral QHS calcium acetate (PHOSLO) capsule 1,334 mg 1,334 mg Oral TID w/ meals cloNIDine (CATAPRESS) tablet 0.1 mg 0.1 mg Oral BID doxazosin (CARDURA) tablet 8 mg 8 mg Oral QHS doxycycline (VIBRAMYCIN) tablet 100 mg 100 mg Oral BID epoetin carine (PROCRIT) injection 20,000 Units 20,000 Units Intravenous Once per day on Sat furosemide (LASIX) tablet 40 mg 40 mg Oral BID(-) ipratropium bromide (ATROVENT) 0.02 % nebulizer solution 0.5 mg 0.5 mg Inhalation BID & PRN levETIRAcetam (KEPPRA) tablet 1,500 mg 1,500 mg Oral QDAY losartan (COZAAR) tablet 100 mg 100 mg Oral QDAY melatonin tablet 3 mg 3 mg Oral QHS metoprolol XL (TOPROL XL) tablet 100 mg 100 mg Oral BID nicotine (NICODERM CQ STEP 3) 7 mg/day patch 1 patch 1 patch Transdermal QDAY oseltamivir (TAMIFLU) capsule 30 mg 30 mg Oral Q48H* pantoprazole (PROTONIX) injection 40 mg 40 mg Intravenous BID(02-26) senna/docusate (SENOKOT-S) tablet 2 tablet 2 tablet Oral BID sodium chloride (SEA MIST) 0.65 % nasal spray 1-2 spray 1-2 spray Each Nostril TID Continuous Infusions: PRN and Respiratory Meds:acetaminophen Q4H PRN, hydrALAZINE Q4H PRN, nicotine polacrilex Q1H PRN, polyethylene glycol 3350 BID PRN, sodium chloride 0.9% (NS) IP Dialysis PRN, sodium chloride 0.9% (NS) IP Dialysis PRN, sodium chloride 0.9 % (NS) IP Dialysis PRN Review of Systems: Denies fever, soa, and chest pain Objective: Vital Signs: Last Filed Vital Signs: 24 Hour Range BP: 186/78 (04/06 1525) Temp: 36.6 C (97.9 F) (04/06 1525) Pulse: 64 (04/06 1525) Respirations: 16 PER MINUTE (04/06 1525) SpO2: 98 % (04/06 1525) O2 Delivery: None (Room Air) (04/06 1525) BP: (148-190)/(78-95) Temp: [36.5 C (97.7 F)-36.9 C (98.4 F)] Pulse: [59-74] Respirations: [16 PER MINUTE-20 PER MINUTE] SpO2: [93 %-99 %] O2 Delivery: None (Room Air) Intensity Pain Scale 0-10 (Pain 1): 7 (04/06/17 1437) Vitals: 04/04/17 1417 04/04/17 1730 04/04/171999 Weight: 107.3 kg (236 lb 8.9 oz) 109 kg (240 lb 4.8 oz) 107 kg (235 lb 14.3 oz) Intake/Output Summary: (Last 24 hours) Intake/Output Summary (Last 24 hours) at 04/06/17 1658 Last data filed at 04/06/17 1526 Gross per 24 hour Intake 784 ml Output 0 ml Net 784 ml Stool Occurrence: 1 Physical Exam Gen: Alert and Oriented, No Acute Distress HEENT: Sclera normal, wearing helment CV: no JVD, S1 and S2 normal, no rubs, murmurs or gallops Pulm: Clear to Auscultation bilateral, slightly diminished GI: BS+ x4, non-tender to palpation Neuro: facial droop, memory impaired Ext: trace edema, nontender Skin: no rash, dry Access: LUE AVF with good thrill Lab Review 24-hour labs: Results for orders placed or performed during the hospital encounter of (from the past 24 hour(s)) CBC AND DIFF Collection Time: 04/06/17 7:46 AM Result Value Ref Range White Blood Cells 1.8 (L) 4.5 - 11.0 K/UL RBC 2.34 (L) 4.4 - 5.5 M/UL Hemoglobin 7.1 (L) 13.5 - 16.5 GM/DL Hematocrit 20.6 (L) 40 - 50 % MCV 88.3 80 - 100 FL MCH 30.2 26 - 34 PG MCHC 34.3 32.0 - 36.0 G/DL RDW 14.2 11 - 15 % Platelet Count 115 (L) 150 - 400 K/UL MPV 8.7 7 - 11 FL Segmented Neutrophils 56 41 - 77 % Bands 15 (H) 0 - 10 % Lymphocytes 10 (L) 24 - 44 % Monocytes 11 4 - 12 % Eosinophil 7 (H) 0 - 5 % Myelocyte 1 % ANISO PRESENT POIK PRESENT Ovalocyte PRESENT Platelet Estimate SLT DEC Absolute Neutrophil Count Manual 1.28 (L) 1.8 - 7.0 K/UL COMPREHENSIVE METABOLIC PANEL Collection Time: 04/06/17 7:46 AM Result Value Ref Range Sodium 135 (L) 137 - 147 MMOL/L Potassium 4.4 3.5 - 5.1 MMOL/L Chloride 96 (L) 98 - 110 MMOL/L Glucose 96 70 - 100 MG/DL Blood Urea Nitrogen 53 (H) 7 - 25 MG/DL Creatinine 10.54 (H) 0.4 - 1.24 MG/DL Calcium 9.0 8.5 - 10.6 MG/DL Total Protein 7.0 6.0 - 8.0 G/DL Total Bilirubin 0.5 0.3 - 1.2 MG/DL Albumin 3.6 3.5 - 5.0 G/DL Alk Phosphatase 93 25 - 110 U/L AST (SGOT) 22 7 - 40 U/L CO2 26 21 - 30 MMOL/L ALT (SGPT) 16 7 - 56 U/L Anion Gap 13 (H) 3 - 12 eGFR Non 5 (L) >60 mL/min eGFR 6 (L) >60 mL/min MAGNESIUM Collection Time: 04/06/17 7:46 AM Result Value Ref Range Magnesium 2.2 1.6 - 2.6 mg/dL PHOSPHORUS Collection Time: 04/06/17 7:46 AM Result Value Ref Range Phosphorus 5.1 (H) 2.0 - 4.0 MG/DL Point of Care Testing (Last 24 hours) Glucose: 96 (04/06/17 0746) Radiology and other Diagnostics Review: Pertinent radiology reviewed. Andrew Barnes Pager [phone] * Charo Perry, RN - 04/06/2017 2:53 PM SECONDARY HISTORY TEACHER Patient has been intermittently refusing various aspects of care throughout this shift. This RN still unable to complete assessment, checking pulses and extremities, as patient is unwilling to allow me to assess them. 1530 - Pt wishes to speak with Head Boys Golf Coach. He threatens to come out into [place] and make a scene if the doctor doesn't come. This RN reminded patient that MD has stated he will try to come by and visit patient again before leaving for the evening. RN again offered to relay patient's specific concern with the doctor but the patient refuses to tell anyone what he wants except for the refined syrup operator. * Charo Perry, RN - 04/06/2017 1:26 PM SECONDARY HISTORY TEACHER Patient has refused dialysis, states "I don't like getting dialysis here. I want to get dialysis in [place]." MD aware of refusal and has spoken with patient. * Calista Li, RT - 04/06/2017 9:31 AM SECONDARY HISTORY TEACHER 0918- went in to do therapy, patient SpO2 in 80s with good waveform. Patient had cannula wrapped around their legs. RT asked patient if he could put his oxygen on, RT educated on the importance of oxygen when patient is in need of it , patient told RT to "stop telling me what to do" and stated that this RT "must have problems giving him oxygen that was between his legs". Patientt was given nebulized treatment and threw nebulizer mid treatment, refusing to do anymore therapy. Patient then agreed to wear oxygen, will continue to monitor. * Faraz Hernandez MD - 04/06/2017 7:05 AM SECONDARY HISTORY TEACHER Formatting of this note may be different from the original. Neurosurgery Progress Note SUBJECTIVE: Patient stable this am. No acute concerns. OBJECTIVE: Vital Signs: 24 Hour Range BP: (150-190)/(69-89) Temp: [36 C (96.8 F)-36.7 C (98.1 F)] Pulse: [59-64] Respirations: [16 PER MINUTE-20 PER MINUTE] SpO2: [92 %-98 %] O2 Delivery: None (Room Air) Awake, sitting at edge of bed Oriented FC x 4 Abdomin site well healed - no fluctuance - same area of tenderness when palpating as he has had since last hospital stay Flap site - soft - some refilling but depressed in superior portion more so than prior to tapping. Dressing removed ASSESSMENT/PLAN: 51 y.o. male with history of right MCA aneurysm clipping and craniectomy here with subgaleal fluid collection. Active Hospital Problems Diagnosis TBI (traumatic brain injury) (HCC) Chronic hypoxemic respiratory failure (HCC) Vascular dementia without behavioral disturbance ESRD (end stage renal disease) on dialysis (HCC) Acute blood loss as cause of postoperative anemia Normocytic anemia Renovascular hypertension Influenza B Rhinovirus infection COPD with hypoxia (HCC) Oropharyngeal dysphagia Pancytopenia (HCC) Troponin level elevated Pneumonia Subarachnoid bleed (HCC) Acquired skull defect Added automatically from request for surgery [id number] No concerns for infection of fluid - appeared to be csf in nature Site soft with small amount of re-accumulation of fluid - does not appear to be under any significant pressure. This problem is thought at this time to likely improve after cranioplasty. Cranioplasty could be performed near the end of this hospital stay if he is found to be stable for surgical procedure from a hematological standpoint. Will defer to medicine team for optimization if they feel that this is a reasonable goal during this stay. If it is felt more prudent to postpone cranioplasty to a later date we can help facilitate the procedure as an outpatient. Faraz Hernandez MD [id number] Please call [phone] with any questions. * Andrew Barnes - 04/05/2017 3:28 PM SECONDARY HISTORY TEACHER Formatting of this note may be different from the original. General Progress Note Name: Naren Mayfield Today's Date: 04/05/2017 Admission Date: 04/03/2017 LOS: 2 days Assessment/Plan: Active Problems: Subarachnoid bleed (HCC) Acquired skull defect Pneumonia Chronic hypoxemic respiratory failure (HCC) Vascular dementia without behavioral disturbance ESRD (end stage renal disease) on dialysis (HCC) Acute blood loss as cause of postoperative anemia Normocytic anemia Renovascular hypertension Influenza B Rhinovirus infection COPD with hypoxia (HCC) Oropharyngeal dysphagia Pancytopenia (HCC) Troponin level elevated Naren Mayfield is a 51 y.o. male with ESRD admitted with influenza. 1. ESRD -on HD TTS, last HD session unknown -access LUE AVF -target EDW 103 kg 2. Influenza 3. Hx of SAH with residual neurologic deficits 4. Anemia of CKD with iron deficiency 5. Secondary hyperparathyroidism. 6. HTN with component of volume dependence Recommendations: -plan for next HD tomorrow with 3 L UF if tolerated -patient agreeable to 4 hr duration -continue TTS schedule -daily standing weight, strict I&O -renal dosing of medications nAdrew Barnes MD PGY-4 Nephrology Fellow Pager [phone] Subjective Naren Mayfield is a 51 y.o. male. Patient doing well, no acute events. Did not want to stay for full treatment or UF yesterday during HD. Agreeable to 4 hrs tomorrow and skipping today. No cough, no myalgias, no fever. Medications Scheduled Meds: albuterol 0.5% (PROVENTIL; VENTOLIN) nebulizer solution 2.5 mg 2.5 mg Inhalation BID & PRN amLODIPine (NORVASC) tablet 10 mg 10 mg Oral QDAY atorvastatin (LIPITOR) tablet 10 mg 10 mg Oral QHS calcium acetate (PHOSLO) capsule 1,334 mg 1,334 mg Oral TID w/ meals cloNIDine (CATAPRESS) tablet 0.1 mg 0.1 mg Oral BID doxazosin (CARDURA) tablet 8 mg 8 mg Oral QHS doxycycline (VIBRAMYCIN) tablet 100 mg 100 mg Oral BID epoetin carine (PROCRIT) injection 20,000 Units 20,000 Units Intravenous Once per day on Sat ipratropium bromide (ATROVENT) 0.02 % nebulizer solution 0.5 mg 0.5 mg Inhalation BID & PRN iron sucrose (VENOFER) 300 mg in sodium chloride 0.9% (NS) IVPB 300 mg Intravenous QDAY levETIRAcetam (KEPPRA) tablet 1,500 mg 1,500 mg Oral QDAY lidocaine 2% (20 mg/mL) injection 50 mL 50 mL Injection ONCE losartan (COZAAR) tablet 100 mg 100 mg Oral QDAY melatonin tablet 3 mg 3 mg Oral QHS metoprolol XL (TOPROL XL) tablet 100 mg 100 mg Oral BID nicotine (NICODERM CQ STEP 3) 7 mg/day patch 1 patch 1 patch Transdermal QDAY oseltamivir (TAMIFLU) capsule 30 mg 30 mg Oral Q48H* pantoprazole (PROTONIX) injection 40 mg 40 mg Intravenous BID(02-26) senna/docusate (SENOKOT-S) tablet 2 tablet 2 tablet Oral BID sodium chloride (SEA MIST) 0.65 % nasal spray 1-2 spray 1-2 spray Each Nostril TID Continuous Infusions: PRN and Respiratory Meds:acetaminophen Q4H PRN, hydrALAZINE Q4H PRN, nicotine polacrilex Q1H PRN, polyethylene glycol 3350 BID PRN Review of Systems: Denies fever, soa, and chest pain Objective: Vital Signs: Last Filed Vital Signs: 24 Hour Range BP: 197/86 (04/05 1152) Temp: 36.8 C (98.2 F) (04/05 1152) Pulse: 67 (04/05 1152) Respirations: 22 PER MINUTE (04/05 1152) SpO2: 99 % (04/05 1152) O2 Delivery: Nasal Cannula (04/05 1152) SpO2 Pulse: 70 (04/04 1933) BP: (147-197)/(68-103) Temp: [36.7 C (98 F)-37.2 C (98.9 F)] Pulse: [63-80] Respirations: [18 PER MINUTE-29 PER MINUTE] SpO2: [92 %-99 %] O2 Delivery: Nasal Cannula Intensity Pain Scale 0-10 (Pain 1): 7 (04/05/17 0900) Vitals: 04/04/17 1417 04/04/17 1730 04/04/17 2000 Weight: 107.3 kg (236 lb 8.9 oz) 109 kg (240 lb 4.8 oz) 107 kg (235 lb 14.3 oz) Intake/Output Summary: (Last 24 hours) Intake/Output Summary (Last 24 hours) at 04/05/17 1528 Last data filed at 04/05/17 0800 Gross per 24 hour Intake 950 ml Output 2310 ml Net -1360 ml Stool Occurrence: 1 Physical Exam Gen: Alert and Oriented, No Acute Distress HEENT: Sclera normal, wearing helment CV: no JVD, S1 and S2 normal, no rubs, murmurs or gallops Pulm: Clear to Auscultation bilateral, slightly diminished GI: BS+ x4, non-tender to palpation Neuro: facial droop, memory impaired Ext: trace edema, nontender Skin: no rash, dry Access: LUE AVF with good thrill Lab Review 24-hour labs: Results for orders placed or performed during the hospital encounter of (from the past 24 hour(s)) OCCULT BLOOD NON COLON CANCER SCREEN Collection Time: 04/04/17 3:43 PM Result Value Ref Range Battery Name OCCULT BLOOD SCREEN Specimen Description FECES Special Requests NONE Occult Blood NEGATIVE Report Status FINAL 04/04/2017 CBC AND DIFF Collection Time: 04/05/17 4:25 AM Result Value Ref Range White Blood Cells 2.0 (L) 4.5 - 11.0 K/UL RBC 2.32 (L) 4.4 - 5.5 M/UL Hemoglobin 7.3 (L) 13.5 - 16.5 GM/DL Hematocrit 20.7 (L) 40 - 50 % MCV 89.3 80 - 100 FL MCH 31.5 26 - 34 PG MCHC 35.3 32.0 - 36.0 G/DL RDW 14.5 11 - 15 % Platelet Count 113 (L) 150 - 400 K/UL MPV 8.8 7 - 11 FL Neutrophils 72 41 - 77 % Lymphocytes 8 (L) 24 - 44 % Monocytes 16 (H) 4 - 12 % Eosinophils 3 0 - 5 % Basophils 1 0 - 2 % Absolute Neutrophil Count 1.40 (L) 1.8 - 7.0 K/UL Absolute Lymph Count 0.20 (L) 1.0 - 4.8 K/UL Absolute Monocyte Count 0.30 0 - 0.80 K/UL Absolute Eosinophil Count 0.10 0 - 0.45 K/UL Absolute Basophil Count 0.00 0 - 0.20 K/UL COMPREHENSIVE METABOLIC PANEL Collection Time: 04/05/17 4:25 AM Result Value Ref Range Sodium 135 (L) 137 - 147 MMOL/L Potassium 4.2 3.5 - 5.1 MMOL/L Chloride 95 (L) 98 - 110 MMOL/L Glucose 87 70 - 100 MG/DL Blood Urea Nitrogen 37 (H) 7 - 25 MG/DL Creatinine 7.39 (H) 0.4 - 1.24 MG/DL Calcium 9.2 8.5 - 10.6 MG/DL Total Protein 7.3 6.0 - 8.0 G/DL Total Bilirubin 0.6 0.3 - 1.2 MG/DL Albumin 3.7 3.5 - 5.0 G/DL Alk Phosphatase 85 25 - 110 U/L AST (SGOT) 24 7 - 40 U/L CO2 27 21 - 30 MMOL/L ALT (SGPT) 16 7 - 56 U/L Anion Gap 13 (H) 3 - 12 eGFR Non 8 (L) >60 mL/min eGFR 10 (L) >60 mL/min MAGNESIUM Collection Time: 04/05/17 4:25 AM Result Value Ref Range Magnesium 2.0 1.6 - 2.6 mg/dL PHOSPHORUS Collection Time: 04/05/17 4:25 AM Result Value Ref Range Phosphorus 4.5 (H) 2.0 - 4.0 MG/DL Point of Care Testing (Last 24 hours) Glucose: 87 (04/05/17 9465) Radiology and other Diagnostics Review: Pertinent radiology reviewed. Andrew Short Pager [phone] Associated attestation - Sukh Reyan MD - 04/05/2017 4:21 PM SECONDARY HISTORY TEACHER I have seen and examined the patient with the resident/fellow and agree with the assessment and plan unless otherwise stated. * Mikey La MD - 04/05/2017 12:16 PM SECONDARY HISTORY TEACHER Formatting of this note may be different from the original. General Progress Note Name: Naren Mayfield Today's Date: 04/05/2017 Admission Date: 04/03/2017 LOS: 2 days Assessment/Plan: Active Problems: Subarachnoid bleed (HCC) Acquired skull defect Pneumonia Chronic hypoxemic respiratory failure (HCC) Vascular dementia without behavioral disturbance ESRD (end stage renal disease) on dialysis (HCC) Acute blood loss as cause of postoperative anemia Normocytic anemia Renovascular hypertension Influenza B Rhinovirus infection COPD with hypoxia (HCC) Oropharyngeal dysphagia Pancytopenia (HCC) Troponin level elevated TBI (traumatic brain injury) (HCC) 51yoM w/ PMH of recent ruptured R MCA aneurysm w/ hematoma and sub-arachnoid hemorrhage s/p clipping, R hemicraniotomy dc'd on 03/26, ESRD on HD, chronic hypoxia (3-4L), COPD, HTN, known L pleural effusion transferred from OSH w/ fever, acute on chronic hypoxia Changes made to today's assessment and plan are indicated in bold. Hypoxia, chronic - now stable on baseline 3-4L - CT on admit shows stable small L pleural effusion, atelectasis and possible pneumonitis - RVP + for influenza B and rhinovirus - cont tamiflu - cont doxy given elevated pro-calcitonin - cont albuterol, ipratropium S/p MCA aneurysm rupture, hematoma, subarachnoid hemorrhage - neurosurg consulted - will plan for tapping fluid collection today, if re-accumulates quickly may need FLANGING OPERATOR shunt - cont on CO for impulsive behavior 2/2 TBI/vascular dementia - cont Keppra for seizure ppx ESRD on HD - Renal consulted - HD TThSa - cont phoslo HTN - cont norvasc, cardura, losartan - add clonidine Anemia, normocytic - b12, folate normal - iron studies w/ AoCD and RADHA - soluble transferrin receptor is normal - Haptoglobin in normal - rules out hemolysis - retic count is inappropriately normal - cont venofer x 3 days - cont Epo TIW Possible HIT - OD of 0.97 makes true HIT only 1-5% - will check serotonin release assay, if positive would need argatroban given his renal dysfunction, but would need to clear this with neurosurgery first - plt goal is >100 Trop elevation - 2/2 poor renal clearance and recent WIRE TWISTER insult - EKG w/o ischemia - EF is normal on Echo w/o areas of hypokinesis Dysphagia - APPAREL MERCHANDISER consulted FEN: no IVF, replace lytes PRN, mech soft diet Ppx: SCD's only Code: Full Dispo: cont inpt admit, neurosurgery to drain fluid collection today, check serotonin release assay to r/o HIT - pt would be a poor candidate for AC. Subjective Naren Mayfield is a 51 y.o. male. Patient w/ increased impulsivity last night. This morning he denies any pain or difficulty breathing. Denies any new weakness, he continues to report blurry vision. ROS: neg for fevers, chills, dyspnea, chest pain, palpitations Medications Scheduled Meds: albuterol 0.5% (PROVENTIL; VENTOLIN) nebulizer solution 2.5 mg 2.5 mg Inhalation BID & PRN amLODIPine (NORVASC) tablet 10 mg 10 mg Oral QDAY atorvastatin (LIPITOR) tablet 10 mg 10 mg Oral QHS calcium acetate (PHOSLO) capsule 1,334 mg 1,334 mg Oral TID w/ meals cloNIDine (CATAPRESS) tablet 0.1 mg 0.1 mg Oral BID doxazosin (CARDURA) tablet 8 mg 8 mg Oral QHS doxycycline (VIBRAMYCIN) tablet 100 mg 100 mg Oral BID epoetin carine (PROCRIT) injection 20,000 Units 20,000 Units Intravenous Once per day on Sat ipratropium bromide (ATROVENT) 0.02 % nebulizer solution 0.5 mg 0.5 mg Inhalation BID & PRN iron sucrose (VENOFER) 300 mg in sodium chloride 0.9% (NS) IVPB 300 mg Intravenous QDAY levETIRAcetam (KEPPRA) tablet 1,500 mg 1,500 mg Oral QDAY losartan (COZAAR) tablet 100 mg 100 mg Oral QDAY melatonin tablet 3 mg 3 mg Oral QHS metoprolol XL (TOPROL XL) tablet 100 mg 100 mg Oral BID oseltamivir (TAMIFLU) capsule 30 mg 30 mg Oral Q48H* pantoprazole (PROTONIX) injection 40 mg 40 mg Intravenous BID(02-26) senna/docusate (SENOKOT-S) tablet 2 tablet 2 tablet Oral BID sodium chloride (SEA MIST) 0.65 % nasal spray 1-2 spray 1-2 spray Each Nostril TID Continuous Infusions: PRN and Respiratory Meds:acetaminophen Q4H PRN, hydrALAZINE Q4H PRN, polyethylene glycol 3350 BID PRN, sodium chloride 0.9% (NS) IP Dialysis PRN, sodium chloride 0.9% (NS) IP Dialysis PRN, sodium chloride 0.9% (NS) IP Dialysis PRN Objective Vital Signs: Last Filed Vital Signs: 24 Hour Range BP: 197/86 (04/05 1152) Temp: 36.8 C (98.2 F) (04/05 115) Pulse: 67 (04/05 1152) Respirations: 22 PER MINUTE (04/05 115) SpO2: 99 % (04/05 115) O2 Delivery: Nasal Cannula (04/05 115) SpO2 Pulse: 70 (04/04 1933) Height: 172.7 cm (67.99") (04/04 1417) BP: (141-197)/(67-103) Temp: [36.1 C (97 F)-37.2 C (98.9 F)] Pulse: [62-80] Respirations: [16 PER MINUTE-29 PER MINUTE] SpO2: [92 %-100 %] O2 Delivery: Nasal Cannula Intensity Pain Scale 0-10 (Pain 1): 7 (04/05/17 0900) Vitals: 04/04/17 1417 04/04/17 1730 04/04/171999 Weight: 107.3 kg (236 lb 8.9 oz) 109 kg (240 lb 4.8 oz) 107 kg (235 lb 14.3 oz) Intake/Output Summary: (Last 24 hours) Intake/Output Summary (Last 24 hours) at 04/05/17 1216 Last data filed at 04/05/17 0800 Gross per 24 hour Intake 950 ml Output 2310 ml Net -1360 ml Stool Occurrence: 1 Physical Exam General: Alert, NAD, does not follow commands, easily distracted Head: Prior R craniotomy w/ fluid collection - soft, NTTP, non-pulsatile Eyes: Conjunctivae/corneas clear. PERRL. Lungs: CTAB, no rales, no wheezing. Heart: Regular rate and rhythm, no MRG. Abdomen: Soft, non-tender. Bowel sounds normal. Extremities: No cyanosis, clubbing, nor edema. Pulses: 2+ radial pulses b/l Skin: Skin color, texture, turgor normal. No rashes or lesions. Lab Review Hematology: Lab Results Component Value Date HGB 7.3 04/05/2017 HCT 20.7 04/05/2017 PLTCT 113 04/05/2017 WBC 2.0 04/05/2017 NEUT 72 04/05/2017 ANC 1.40 04/05/2017 ALC 0.20 04/05/2017 SUZI 16 04/05/2017 AMC 0.30 04/05/2017 ABC 0.00 04/05/2017 MCV 89.3 04/05/2017 MCHC 35.3 04/05/2017 MPV 8.8 04/05/2017 RDW 14.5 04/05/2017 , Coagulation: Lab Results Component Value Date PTT 32.2 04/04/2017 INR 1.2 04/04/2017 , General Chemistry: Lab Results Component Value Date NA 135 04/05/2017 K 4.2 04/05/2017 CL 95 04/05/2017 GAP 13 04/05/2017 BUN 37 04/05/2017 CR 7.39 04/05/2017 GLU 87 04/05/2017 CA 9.2 04/05/2017 ALBUMIN 3.7 04/05/2017 LACTIC 0.8 03/16/2017 OBSCA 1.25 03/23/2017 MG 2.0 04/05/2017 TOTBILI 0.6 04/05/2017 and Enzymes: Lab Results Component Value Date AST 24 04/05/2017 ALT 16 04/05/2017 ALKPHOS 85 04/05/2017 Point of Care Testing (Last 24 hours) Glucose: 87 (04/05/17 0425) Radiology and other Diagnostics Review: Pertinent radiology reviewed. Mikey La MD Pager [phone] * Starr Landrum, OT - 04/05/2017 9:14 AM SECONDARY HISTORY TEACHER Formatting of this note may be different from the original. OCCUPATIONAL THERAPY ASSESSMENT NOTE Patient Name: Naren Mayfield Room/Bed: 82/ Admitting Diagnosis: HCAP Pneumonia Past Medical History: Diagnosis Date Cerebral aneurysm rupture (HCC) 03/2017 DM (diabetes mellitus) ([facility]) last A1C is wnl on 03/12/17 Dysphagia ESRD (end stage renal disease) ([facility]) T/TH/S via AV fistula on LUE HLD (hyperlipidemia) HTN (hypertension) Subjective Pertinent Dx per Physician: 51yoM w/ PMH of recent ruptured R MCA aneurysm w/ hematoma and sub-arachnoid hemorrhage s/p clipping, R hemicraniotomy dc'd on , ESRD on HD, chronic hypoxia (3-4L), COPD, HTN, known L pleural effusion transferred from OSH w/ fever, acute on chronic hypoxia Precautions: Falls;Isolation;O2 Requirement (4L ) Pain / Complaints: Patient agrees to participate in therapy Objective Psychosocial Status: Willing and Cooperative to Participate Persons Present: PT Home Living Type of Home: House Home Layout: One Level Bathroom Shower / Tub: Tub/Shower Unit Bathroom Toilet: Standard Comment: Pt came from [facility] Prior Function Level Of [place]: Needed assistance with ADLs;Needed assistance with homemaking;Needed assistance with functional transfers (Most recently) ADL's Where Assessed: Edge of Bed;Chair Grooming Assist: (Pt declined) LE Dressing Assist: (Pt declined) Functional Transfer Assist: Stand By Assist Comment: Pt sitting at the edge of the bed upon OT/PT arrival. Pt declined ADLs but willing to get up and ambulate. Pt donned helmet and ambulated around room using roller walker with stand by assistance. Pt sitting in chair at end of session with constant observer present. Activity Tolerance Endurance: 2/5 Tolerates 10-20 Minutes Exercise w/Multiple Rests Sitting Balance: 3/5 Sits w/o UE Support Up to 30 Seconds Cognition Overall Cognitive Status: Impaired Attention: Awake/Alert Education Persons Educated: Patient Interventions: Repetition of Instructions Teaching Methods: Verbal Instruction Topics: Role of OT, Goals for Therapy Goal Formulation: With Patient Assessment Assessment: Decreased ADL Status;Decreased Endurance;Decreased Self-Care Trans Prognosis: Fair;w/Cont OT s/p Acute Discharge Goal Formulation: Patient AM-PAC 6 Clicks Daily Activity Inpatient Putting on and taking off regular lower body clothes?: A Little Bathing (Including washing, rinsing, drying): A Little Toileting, which includes using toilet, bedpan, or urinal: A Little Putting on and taking off regular upper body clothing: A Little Taking care of personal grooming such as brushing teeth: A Little Eating meals?: A Little Daily Activity Raw Score: 18 Standardized (t-scale) score: 38.66 CMS 0-100% Score: 46.65 CMS G Code Modifier: CK Plan Treatment Interventions: ADL Retraining;Functional Transfer Training;Equipment Evaluation/Education;Compensatory Technique Education;Endurance Training OT Frequency: 2-3x/week Next Session: Grooming standing at sink. ADL Goals Patient Will Perform Grooming: Standing at Sink, w/ Stand By Assist Patient Will Perform LE Dressing: At Edge of Bed, In Chair, w/ Minimum Assist Functional Transfer Goals Pt Will Transfer To Toilet: w/ Stand By Assist OT Discharge Recommendations OT Discharge Recommendations: Inpatient Setting, Vs, Home with consistent supervision, Home with Home Health, Home with family assist Equipment Recommendations: Shower Chair, Grab Bars Recommend ongoing assistance for: Transfers, Stairs, Meal preparation, Safety concerns, Grooming, Dressing, Bathing, Toileting G-Codes: Self-care G8987 Current Status: 40-59% Impairment G8988 Goal Status: 20-39% Impairment Based on above evaluation and clinical judgment. Therapist: Starr Landrum OTR/L Date: 04/05/2017 * Adrián oPtts, PT - 04/05/2017 9:04 AM SECONDARY HISTORY TEACHER PHYSICAL THERAPY ASSESSMENT MOBILITY: Mobility Progressive Mobility Level: Walk in room Distance Walked (feet): 20 ft Level of Assistance: Stand by assistance Assistive Device: Walker Time Tolerated: 0-10 minutes Activity Limited By: Shortness of air SUBJECTIVE: Subjective Significant hospital events: 51yoM w/ PMH of recent ruptured R MCA aneurysm w/ hematoma and sub-arachnoid hemorrhage s/p clipping, R hemicraniotomy dc'd on , ESRD on HD, chronic hypoxia (3-4L), COPD, HTN, known L pleural effusion transferred from OSH w/ fever, acute on chronic hypoxia Mental / Cognitive Status: Alert;Oriented;To Person;To Place;Cooperative; Follows Commands Persons Present: OT;Constant Observer Pain: Patient has no complaint of pain Ambulation Assist: Independent Mobility at Household Level with Device;Assist Needed with Mobility-Related ADL's/Ambulation Patient Owned Equipment: 4-Wheeled Walker Home Situation: Lives with Family Type of Home: House Entry Stairs: 3-5 Stairs (5) In-Home Stairs: No Stairs Comments: Pt reports he came into hospital from home and wants to be transferred back to [place] ROM: ROM ROM Position Assessed: Seated LE ROM: WFL STRENGTH: Strength Strength Position Assessed: Seated Overall Strength: WFL BED MOBILITY/TRANSFERS: Bed Mobility/Transfers Comments: bed mobility not observed as pt was sitting up on edge of bed and prior to session Transfer Type: Sit to/from Stand Transfer: Assistance Level: Standby Assist;From;Bed;To;Bed Side Chair Transfer: Assistive Device: Roller Walker Transfers: Type Of Assistance: For Safety Considerations End Of Activity Status: Up in Chair;Nursing Notified;Instructed Patient to Request Assist with Mobility;Instructed Patient to Use Call Light BALANCE: Balance Sitting Balance: Static Sitting Balance;Dynamic Sitting Balance;No UE Support; Independent Standing Balance: Static Standing Balance;Dynamic Standing Balance;2 UE support; Standby Assist GAIT: Gait Gait Distance: 20 feet Gait: Assistance Level: Standby Assist;Management of Lines;Safety Considerations Gait: Assistive Device: Roller Walker Gait: Descriptors: Pace: Normal;Decreased foot clearance RLE;Decreased foot clearance LLE;Swing-Through Gait;No balance loss Activity Limited By: Complaint of Fatigue;SOA;Patient Choice EDUCATION: Education Persons Educated: Patient Patient Barriers To Learning: Cognitive Deficits Interventions: Repetition of Instructions;Demonstration Provided Teaching Methods: Verbal Instruction;Demonstration Patient Response: Verbalized Understanding;Return Demonstration Topics: Plan/Goals of PT Interventions;Use of Assistive Device/Orthosis; Mobility Progression;Up with Assist Only;Importance of Increasing Activity; Ambulate With Nursing;Recommend Continued Therapy;Therapy Schedule ASSESSMENT/PROGRESS: Assessment/Progress Impaired Mobility Due To: Medical Status Limitation Assessment/Progress: Expect Good Progress;Should Improve w/ Continued PT Comments: Pt likely close to new baseline; would be safe to D/C home with 24/7 assist as pt cannot manage ADLs independently AM-PAC 6 Clicks Basic Mobility Inpatient Turning from your back to your side while in a flat bed without using bed rails : None Moving from lying on your back to sitting on the side of a flatbed without using bedrails : None Moving to and from a bed to a chair (including a wheelchair): None Standing up from a chair using your arms (e.g. wheelchair, or bedside chair): None To walk in hospital room: A Little Climbing 3-5 steps with a railing: A Little Raw Score: 22 Standardized (T-scale) Score: 47.4 Basic Mobility [facility] 0-100%: 25.02 [facility] G Code Modifier for Basic Mobility: CJ GOALS: Goals Goal Formulation: With Patient Pt Will Go Supine To/From Sit: Independently Pt Will Transfer Bed/Chair: Independently Pt Will Transfer Sit to Stand: Independently Pt Will Ambulate: Greater than 200 Feet, w/ Walker, w/ Stand By Assist Pt Will Go Up / Down Stairs: 3-5 Stairs, w/ Stand By Assist PLAN: Plan Treatment Interventions: Mobility Training;Strengthening;Endurance Training Plan Frequency: 3-5 Days per Week Comments: increase ambulation distance and endurance; stairs when tolerated RECOMMENDATIONS: PT Discharge Recommendations PT Discharge Recommendations: Inpatient Setting;versus;Home with Assistance; Home Health Setting;to address deficits, maximize function and improve safety Equipment Recommendations: Too early to be determined At current level of function would recommend inpatient setting due to the following barriers: decreased safety awareness, cognitive deficits, decreased functional mobility If patient does discharge home would require: 24/7 assistance for mobility and ADLs G-Codes: Mobility G8978 Current Status: 20-39% Impairment G8979 Goal Status: 1-19% Impairment Based on above evaluation and clinical judgment. Therapist: Adrián Potts, PT, DPT Date: 04/05/2017 * Violetta Mares, RN - 04/05/2017 12:40 AM SECONDARY HISTORY TEACHER Pt insisted on sleeping in a position of kneeling on floor while resting head and arms on the bed. RN and chargemaster specialist explained safety risks with this and encouraged pt to sleep in either the bed or the chair. Pt refused, but finally agreed to sleep sitting on couch in the room. Chair alarm is in place under pt. 0145: [employer] paged and notified that pt is insistent on sleeping in his kneeling position on the ground again. Pt also made comments stating that the nurses better get security if he was not allowed to sleep in his kneeling position. Pt assumed his kneeling position against advice from the nurses. Physician said to place pillows around pt if he continues to insist on sleeping this way. Also ordered a CO for pt, as pt was making comments that he later said were jokes about hurting himself. 0400: RN paged on-call physician and notified him of an increase in swelling of the pt's head where previous procedure was done. Pt assessed by RN and able to answer all questions and pupils are equal, round, and reactiving to light appropriately. Physician said to continue to monitor. * Hilda Talley RN - 04/04/2017 6:13 PM SECONDARY HISTORY TEACHER Formatting of this note may be different from the original. 04/04/17 1800 BRT Members Responding BRT Members Responding Administrative ([employer]); Police;[facility] Staff;Other ( Comment) BRT Activated by: (unit staff) Start Time: 1745 End Time: 1810 Triggers Self-destructive behaviors;Uncooperative Interventions Attempted Verbal de-escalation Mental Status Clouded Orientation Oriented to person;Oriented to place;Oriented to situation Thought Process and Content Illogical History Recent surgery or trauma Mental Status Exam Unable to assess CAM Score Unable to assess Previous CAM Score Unable to assess Repeat BRT No Recommendations Call [employer] when imminent danger is perceived;Monitoring for harmful behaviors;Prompt PRN for psychosis, agitation, anxiety, or pain 51 year old male in dialysis for routine dialysis trying to get out of bed and not cooperative with staff. Patient with recent neuro-surgery, wearing a helmet and confused. He was oppositional but eventually with verbal de-escalation did lay back down in the bed and continued dialysis. No other intervention available at this time due to patient condition. Comfort measures provided only. * Mikey La MD - 04/04/2017 10:12 AM SECONDARY HISTORY TEACHER Formatting of this note may be different from the original. General Progress Note Name: Naren Mayfield Today's Date: 04/04/2017 Admission Date: 04/03/2017 LOS: 1 day Assessment/Plan: Active Problems: Subarachnoid bleed (HCC) Acquired skull defect Pneumonia Chronic hypoxemic respiratory failure (HCC) Vascular dementia without behavioral disturbance ESRD (end stage renal disease) on dialysis (HCC) Acute blood loss as cause of postoperative anemia Normocytic anemia Renovascular hypertension Influenza B Rhinovirus infection COPD with hypoxia (HCC) Oropharyngeal dysphagia Pancytopenia (HCC) 51yoM w/ PMH of recent ruptured R MCA aneurysm w/ hematoma and sub-arachnoid hemorrhage s/p clipping, R hemicraniotomy dc'd on 03/26, ESRD on HD, chronic hypoxia (3-4L), COPD, HTN, known L pleural effusion transferred from OSH w/ fever, acute on chronic hypoxia. Changes made to today's assessment and plan are indicated in bold. Fevers, dyspnea - breathing is now at baseline, stable on 4L O2 - RVP + for influenza and rhinovirus - CT chest w/ stable appearance of LLL effusion and atelectasis - s/p thoracentesis last admit which indicated exudate - as his pro-calcitonin is elevated at 2.3 will cover w/ doxy as well, but if he becomes more hypoxia or septic will need to add MRSA coverage given + influenza - cont IS - HD to help pull fluid Acute anemia and thrombocytopenia; pancytopenia - HIT +, will avoid heparin products - he did report a large nose bleed prior to transfer - 1u PRBC and 1u plt (goal plt >100k per neurosurgery) - LDH is elevated, but hapto is normal arguing against hemolysis - retic count is inappropriately low normal - smear w/ pancytopenia - iron studies w/ mixed AoCD and RADHA - start venofer Qday x 3 - Epo TIW - b12 and folate normal ESRD - renal consulted - HD TThSa - cont Phoslo Recent MCA aneurysm rupture, subarachnoid hemorrhage - neurosurgery consulted - 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 - these changes are normal per neurosurg - cont Keppra HTN - cont norvasc, Toprol, losartan COPD - cont albuterol, ipratropium Dysphagia - new since surgery - [employer] consulted Trop elevation - EKG w/o ischemic changes - 0.17->0.17->0.16 - likely from poor renal clearance and recent W[employer] hemorrhage and ischemia - Echo today w/ EF=60%, mild TR, mild LVH - denies chest pain - will check one more to make sure coming down FEN: no IVF, replace lytes PRN, mech soft diet Ppx: SCD's only - Arixtra contraindicated w/ his CrCl Code: Full Dispo: cont inpt admit, started on doxy and tamiflu, this is all likely viral respiratory illness. Has been afebrile since admit. Plan for HD today. Is on baseline 4L. Can likely d/c back to inpt rehab tomorrow or Saturday. Discussed w/ neurosurgery today. Subjective Naren Mayfield is a 51 y.o. male. Patient w/o acute events since admit. He seems to be at baseline mentation - occasionally impulsive, but alert and oriented, does not remember details. He feels that his breathing is at baseline. He endorses a non-productive cough, but states this is chronic. Denies black or bloody stools. States he had a bad nose bleed since the NC at the OSH were long and hurting his nose, he then swallowed a blood clot which he coughed up. Feels better after eating breakfast today. No F/C since transfer. ROS: neg for fevers, chills, dyspnea, chest pain, palpitations Medications Scheduled Meds: albuterol 0.5% (PROVENTIL; VENTOLIN) nebulizer solution 2.5 mg 2.5 mg Inhalation BID & PRN amLODIPine (NORVASC) tablet 10 mg 10 mg Oral QDAY atorvastatin (LIPITOR) tablet 10 mg 10 mg Oral QHS calcium acetate (PHOSLO) capsule 1,334 mg 1,334 mg Oral TID w/ meals doxazosin (CARDURA) tablet 8 mg 8 mg Oral QHS doxycycline (VIBRAMYCIN) tablet 100 mg 100 mg Oral BID ipratropium bromide (ATROVENT) 0.02 % nebulizer solution 0.5 mg 0.5 mg Inhalation BID & PRN levETIRAcetam (KEPPRA) tablet 1,500 mg 1,500 mg Oral QDAY losartan (COZAAR) tablet 100 mg 100 mg Oral QDAY melatonin tablet 3 mg 3 mg Oral QHS metoprolol XL (TOPROL XL) tablet 100 mg 100 mg Oral BID oseltamivir (TAMIFLU) capsule 30 mg 30 mg Oral QDAY pantoprazole (PROTONIX) injection 40 mg 40 mg Intravenous BID(02-26) senna/docusate (SENOKOT-S) tablet 2 tablet 2 tablet Oral BID sodium chloride (SEA MIST) 0.65 % nasal spray 1-2 spray 1-2 spray Each Nostril TID SODIUM CHLORIDE 0.9 % IV SOLP (Cabinet Override) NOW Continuous Infusions: PRN and Respiratory Meds:acetaminophen Q4H PRN, hydrALAZINE Q4H PRN, polyethylene glycol 3350 BID PRN, sodium chloride 0.9% (NS) IP Dialysis PRN, sodium chloride 0.9% (NS) IP Dialysis PRN, sodium chloride 0.9% (NS) IP Dialysis PRN Objective Vital Signs: Last Filed Vital Signs: 24 Hour Range BP: 149/62 (04/04 733) Temp: 36.6 C (97.9 F) (04/04 733) Pulse: 62 (04/04 911) Respirations: 20 PER MINUTE (04/04 911) SpO2: 93 % (04/04 733) O2 Delivery: None (Room Air) (04/04 733) BP: (149-182)/(62-88) Temp: [36.6 C (97.9 F)-37.2 C (99 F)] Pulse: [56-73] Respirations: [14 PER MINUTE-20 PER MINUTE] SpO2: [93 %-100 %] O2 Delivery: None (Room Air) Intensity Pain Scale 0-10 (Pain 1): 8 (04/04/17 0818) Vitals: 04/04/17 0418 Weight: 107.3 kg (236 lb 8.9 oz) Intake/Output Summary: (Last 24 hours) Intake/Output Summary (Last 24 hours) at 04/04/17 1012 Last data filed at 04/04/17 0330 Gross per 24 hour Intake 0 ml Output 100 ml Net -100 ml Stool Occurrence: 1 Physical Exam General: Alert, cooperative, no distress, appears stated age. He answers questions appropriately, but very easily gets off tract. Head: Prior R sided hemicraniotomy w/ filling defect Eyes: Conjunctivae/corneas clear. PERRL. Lungs: R sided end exp wheezes Heart: Regular rate and rhythm, no MRG. Abdomen: Soft, non-tender. Bowel sounds normal. Prior surgical scar for skull placement. Extremities: No cyanosis, clubbing, nor edema. Pulses: 2+ radial pulses b/l Skin: Skin color, texture, turgor normal. No rashes or lesions. Lab Review Hematology: Lab Results Component Value Date HGB 7.0 04/04/2017 HCT 20.4 04/04/2017 PLTCT 101 04/04/2017 WBC 3.5 04/04/2017 NEUT 90 04/04/2017 ANC 4.10 04/04/2017 ALC 0.10 04/04/2017 SUZI 8 04/04/2017 AMC 0.40 04/04/2017 ABC 0.00 04/04/2017 MCV 88.6 04/04/2017 MCHC 34.4 04/04/2017 MPV 8.6 04/04/2017 RDW 14.2 04/04/2017 , Coagulation: Lab Results Component Value Date PTT 32.2 04/04/2017 INR 1.2 04/04/2017 , General Chemistry: Lab Results Component Value Date NA 132 04/04/2017 K 4.3 04/04/2017 CL 91 04/04/2017 GAP 15 04/04/2017 BUN 50 04/04/2017 CR 8.45 04/04/2017 GLU 121 04/04/2017 CA 9.4 04/04/2017 ALBUMIN 3.7 04/04/2017 LACTIC 0.8 03/16/2017 OBSCA 1.25 03/23/2017 MG 2.0 04/04/2017 TOTBILI 0.5 04/04/2017 and Enzymes: Lab Results Component Value Date AST 21 04/04/2017 ALT 14 04/04/2017 ALKPHOS 87 04/04/2017 Point of Care Testing (Last 24 hours) Glucose: (!) 121 (04/04/17 0033) Radiology and other Diagnostics Review: Pertinent radiology reviewed. Ct Head Wo Contrast Result Date: 04/04/2017 1. Previous right pterional craniectomy with increase [...] Imani Baker M.D. on 04/03/2017 11:[address] Chest Wo Contrast Result Date: 04/04/2017 Chest: 1. No significant change in left [...] Dictated by Imani Baker M.D. on 04/03/2017 11: [address] Abd/pelv Wo Contrast Result Date: 04/04/2017 Chest: 1. No significant change in left [...] Dictated by Imani Baker M.D. on 04/03/2017 11: 49 PM. Mikey La MD Pager [phone] * Dori Byrd - 04/04/2017 9:59 AM SECONDARY HISTORY TEACHER SPEECH-LANGUAGE PATHOLOGY CLINICAL SWALLOW ASSESSMENT EVALUATION SUMMARY Summary: The pt was seen for a clinical swallow evaluation. Pt presents with mild oropharyngeal dysphagia given RHD w/ impulsivity. See summaries below. REC : [facility] soft solid diet and thin liquids. Oral Stage Summary: Pt able to withdraw, form, transfer and masticate bolus w/o difficulty. No suspect for early spillover. No oral residue remained after the swallow. Pharyngeal Stage Summary: Timely swallow initiation w/ adequate laryngeal elevation observed. No s/s of aspiration observed w/ any consistency. Pt reported on he at [facility]. Pt completed the 90mL challenge w/o overt s /s of aspiration. Plan: Continue Treatment 2-3x/week., Patient Would Benefit from Further Speech Therapy Post Acute Hospitalization. Prognosis: Fair NOMS Dysphagia Ratin-Mild Dysphagia -Swallow safe w/ min diet restriction &/ or occasionally requires min cues to use compensatory strategies. May occasionally self-cue. All nutrition/hydration needs met by mouth at mealtime. Results Reported to Physician: Yes Objective* Relevant Med Background: 51 y.o. male with PMH of HTN, HLD, ESRD w/ last dialysis on 03/30, DM, and recent ruptured right MCA s/p pterional crani for clipping, bone flap removed on 03/09/17, now with fever and cough, concern for increased fluid collection on right, neuro intact on exam. CXR:No significant change in left lower lobe consolidation [...] main pulmonary artery suggestive of pulmonary hypertension. CT HEad:Previous right pterional craniectomy with increase in size of the adjacent subgaleal fluid collection since 03/22/2017 suggestive of enlarging pseudomeningocele. 2. 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 Handedness: Right Hearing: WFL Persons Present: ([place]) Subjective* Pain: Patient has no complaint of pain Pain Level Current*: No pain Trach Presence: No Feeding Tube Present During Eval: None Nutrition* Nutrition Prior To Hospitalization: Oral, Mechanical Soft, Thin Liquids Current Form Of Nutrition: Oral, Pureed, [place] Thick Liquids ORAL MECH EXAM Oral Mech WFL*: Yes (Limited dentition.) Education* Persons Educated: Patient Barriers To Learning: Cognitive Deficits Interventions: Staff Educated Teaching Methods: Verbal Topics: Dysphagia, Memory Patient Response: Verbalized Understanding Goal Formulation: With Patient Clinical Swallow Goals* Goal : Pt will tolerate mech soft solids/thin liquids w/ less than 10% s/s of aspiration. Therapist:Dori Byrd MS, L/CCC-[employer], [id number] Date:04/04/2017 * Neema Carney, RT - 04/04/2017 1:58 AM SECONDARY HISTORY TEACHER Formatting of this note may be different from the original. RESPIRATORY THERAPY ADULT PROTOCOL EVALUATION RESPIRATORY PROTOCOL PLAN Medications Albuterol/Ipratropium: Neb BID (pt would like these treatments around 0900 and 2100) Note: If indicated by protocol, medication orders will be placed by therapist. Procedures Vibrating PEP Therapy: BID IPPB: Place a nursing order for "IS Q1h While Awake" for any of Lung Expansion indicators Oxygen/Humidity: O2 to keep SpO2 > 92% Monitoring: Pulse oximetry BID & PRN Comment: denies KAREN hx PATIENT EVALUATION RESULTS Chart Review * Pulmonary Hx: Smoker in home OR smoking cessation > 8 weeks (current smoker) * Surgical Hx: No surgery OR last surgery > 6 weeks ago OR trach/stoma (BA) * Chest X-Ray: Infiltrates (AC) OR atelectasis (LE) OR pleural effusion OR rib fractures (LE) (atelectasis) * PFT/Oxygenation: FEV1, PEFR < 70% OR Pa02 < 70 RA OR Sp02 <92% RA OR Fi02 > 0.21 to keep Sp02 > 92% OR < 24 hours post-op (02 & oxim) OR chronic C02 retention (C02) Patient Assessment * Respiratory Pattern: Regular pattern and rate OR good chest excursion with deep breathing * Breath Sounds: Diminished bilaterally (LE) OR decreased bilaterally with productive cough (AC) * Cough / Sputum: Strong, effective cough OR nonproductive (pt coughs and spits out sputum on his own) * Mental Status: Alert, oriented, cooperative (sometimes says weird comments/ prior crani) * Activity Level: Ambulatory with assistance Priority Index Total Points: 8 Points * Priority Index: 1+ PRIORITY INDEX GUIDELINES* Priority Points 1 0-9 points 2 9-18 points 3 > 18 points + Pulm Dx or Home Rx *Higher points indicate higher acuity. Therapist: Neema Carney, RT Date: 04/04/2017 [place]in AC=Airway clearance AM=Aerosolized medication BA=[place] aerosol DB&C=Deep breathe & cough FEV1=Forced expiratory volume in first second) IC=Inspiratory capacity LE=Lung expansion MDI=Metered dose inhaler Neb=Nebulizer O2=Oxygen Oxim=Oximetry PEFR=Peak expiratory flow rate DISASTER RECOVERY SPECIALIST=Rapid Response Team * Consuelo Worthington RN - 04/04/2017 1:46 AM SECONDARY HISTORY TEACHER Patient arrived to room # 822 via EMS accompanied by transport. Patient transferred to the bed with assistance. Bedside safety checks completed. Initial patient assessment completed, refer to flowsheet for details. Admission skin assessment completed by: Consuelo Worthington and Elise Schuler Pressure Injury Present: no 1. Occiput: No 2. Ear: No 3. Scapula: No 4. Spinous Process: No 5. Shoulder: No 6. Elbow: No 7. Iliac Crest: No 8. Sacrum/Coccyx: No 9. Ischial Tuberosity: No 10. Trochanter: No 11. Knee: No 12. Malleolus: No 13. Heel: No 14. Toes: No See Doc Flowsheet for additional wound details. INTERVENTIONS: N/A * Consuelo Worthington RN - 04/03/2017 10:45 PM SECONDARY HISTORY TEACHER 2245: Oncall paged regarding pt refusing ordered EKG, will not cooperate with nursing staff. Education provided on the reason for the EKG. Will continue to monitor. 2249: MD Oliveira on floor to assess pt. No further orders at this time. in this encounter H&P Notes * Jason Oliveira MD - 04/03/2017 10:29 PM SECONDARY HISTORY TEACHER Formatting of this note may be different from the original. ADMISSION HISTORY AND PHYSICAL Name: Naren Mayfield Admission Date: 04/03/2017 ASSESSMENT & PLAN 51 y.o. male with ESRD on HD, ruptured right MCA aneurysm with right anterior temporary parenchymal hematoma, subarachnoid hemorrhage s/p cliping and right hemicaraniectomy on 03/09/17 complicated by dysphagia, left hemiparesis, possible mild cognitive impairment, previous diagnosis of left pleural effusion was discharged from neurosurgery service on to rehab facility Fever with possible acute hypoxic respiratory failure possible health associated pneumonia, aspiration pneumonia (?RML) - current on 3 liters - Hx of pleural effusion on previous hospitalization s/p thoracentesis by pulmonary on 03/14/17 - NGTD - Patietn states he is not oxygen prior to ED encounter, oxygen was placed on him however unclear if he actually have desats. - 03/11/17 Echo: EF 55%, no regional wall motion abnormalities, PAP 38 > Obtain blood cultures, EKG, serial troponin, BNP RVP, sputum culture if available > Obtain CT chest and abdomen for further evaluation. Patient is diffusely ttp and noted w/ RLQ protrusion which he states chronic from his previous ?PD catheter placement > Start V/Z/L (initaited on 04/03 - ), duonebs, IS > Aspiration precautions, NPO pending CT chest, aspiration precautions. Patient reported he is hungry and wished to have a diet. Acute anemia (6) and thrombocytopenia (102) possible chronic in setting of ESRD - Unclear if patient received blood at OSH ED but reported hemoglobin=6, Plt 102 Hemoglobin baseline 9-10. Last plt on 03/25/17=228 - Patient denies evidence of bleeding. He was not w/ dark crursted blood in nose and right frontal bulging which he states is chronic > Obtain blood type and crossed, H&H q8h, orthostatic VS, iron studies, B12/ folate. Patient had decline blood draw initially with RN so they will attempt again > PPI BID IV and monitor evidence of bleeding. No obvious source ESRD on // dialysis - Palpable thrill noted on LUE AV fistula. Patient reported last HD was on with additional fluid ultrafiltration > Consult nephrology in AM > Continue [place] GRINDER phoslo when patient is clear for oral pills History of uptured right MCA aneurysm with right anterior temporary parenchymal hematoma, subarachnoid hemorrhage s/p cliping and right hemicaraniectomy on 03/09/17 complicated by dysphagia, left hemiparesis, possible cognitive impairment - stable > Consider neurosurgery consult in AM > Repeat CT head. CT head at OSH is stable > Continue [place] GRINDER keppra (in IV form for now), ?quetiapine (unclear reason presumed for mood, sleeping aid) > Patient was noted w/ plt of 102 at OSH, INR/APTT ordered an dpending, BP control > PT/OT consult, neuro checks Dysphagia - Base don discharge summary on 03/09 patient is current on pureed diet with nectar thick liquid - 03/21/17 Laryngeal penetration and single episode of aspiration with thin consistency barium, which did not elicit a spontaneous cough reflex. Trace laryngeal penetration with nectar thick barium. > Consult speech in AM > Aspiration precautions. Patient was on nectar thick w/ pureed diet on the day of discharge HTN/HLD - plan to continue [place] GRINDER norvasc, cardura, metoprolol XL, losartan, lipitor if CT chest is not consistent w/ aspiration pneumonia FEN: no IVF, electrolytes reviewed, Diet NPO Prophalyxis: SCDs for now, may consider heparin sc if CT head is okay and no evidence of bleed Disposition: Admit to inpatient. Code status: Full Code (Discussed on 04/03/2017) I have discussed the management and plan of care with patient as listed above. After 8 am today, please page rounding physician or appropriate team pager in regard of this patient. Jason Oliveira MD 04/03/2017 Internal Medicine, Friction Paint Machine Tender 8 PM - 8 AM Pager: [phone] Chief Complaint: Fever Patient is poor historian. There is actual CD images but there is no labs or imaging report available on this admission encounter History of Present Illness Naren Mayfield is a 51 y.o. male with ESRD on HD, ruptured right MCA aneurysm with right anterior temporary parenchymal hematoma, subarachnoid hemorrhage s/p cliping and right hemicaraniectomy on 03/09/17 complicated by dysphagia, left hemiparesis, possible mild cognitive impairment, previous diagnosis of left pleural effusion was discharged from neurosurgery service on to rehab facility. Patient developed fever 101 - 102 F at rehab facility so come to [facility] ED on 04/03/17 for further evaluation. Per transfer note: patient underwent CT head with unchanged finding of midline shift of 3 mm with no hernia (same from previous per conversation with Dr. Ring). Patient also found to have ?RML opacities. Patient was given rocephin however V/Z was ordered but uncertain if given based on available record. No admission chest xray and CT, labs available on transfer center OSH labs based on transfer note: WBC 4.3, Plt 102, hgb of 6.4, BUN 30, Cr 7.24 Na 133, K+ 4.1, Cl 87 During this encounter, patient is alerted and state he is not sure why they send him back here as he was at recently. He states he had cough, fever and was have additional fluid removed on his last dialysis on Saturday. He states he had no other concerns and currently hungry. Denies any new neurological changes and only reported headache when he cough Denies chest pain currently Denies N/V, abdominal pain, diarrhea Review of Systems A comprehensive 14-point ROS was negative except for: Review of Systems Constitutional: Positive for chills, fever and malaise/fatigue. Respiratory: Positive for cough and shortness of breath. Past medical history has a past medical history of DM (diabetes mellitus) (HCC); HLD (hyperlipidemia ); HTN (hypertension); and Renal failure. Past surgical history has a past surgical history that includes intracranial aneurysm repair (N/A, ) and intracranial aneurysm repair (Right, 03/10/2017). Family history Family History Problem Relation Age of Onset Blood Clots Mother Hypertension Mother Diabetes Mother Social history Social History Social History Marital status: Spouse name: N/A Number of children: N/A Years of education: N/A Social History Main Topics Smoking status: Current Every Day Smoker Packs/day: 1.00 Years: 30.00 Smokeless tobacco: Not on file Alcohol use Not on file Drug use: Not on file Sexual activity: Not on file Other Topics Concern Not on file Social History Narrative Allergies Review of patient's allergies indicates no known allergies. Medications Current Facility-Administered Medications Medication acetaminophen (TYLENOL) tablet 650 mg [START ON 04/04/2017] albuterol 0.5% (PROVENTIL; VENTOLIN) nebulizer solution 2.5 mg [START ON 04/04/2017] amLODIPine (NORVASC) tablet 10 mg [START ON 04/04/2017] atorvastatin (LIPITOR) tablet 10 mg [START ON 04/04/2017] calcium acetate (PHOSLO) capsule 1,334 mg [START ON 04/04/2017] doxazosin (CARDURA) tablet 8 mg hydrALAZINE (APRESOLINE) injection 10 mg [START ON 04/04/2017] ipratropium bromide (ATROVENT) 0.02 % nebulizer solution 0.5 mg [START ON 04/04/2017] levETIRAcetam in NaCl (iso-os) (KEPPRA) IVPB (premade ) 1,500 mg 100 mL [START ON 04/05/2017] levofloxacin (LEVAQUIN) 500 mg/100 mL IVPB levofloxacin (LEVAQUIN) 750 mg/150 mL IVPB [START ON 04/04/2017] losartan (COZAAR) tablet 100 mg [START ON 04/04/2017] metoprolol XL (TOPROL XL) tablet 100 mg piperacillin/tazobactam (ZOSYN) 2.25 g/50 mL iso-osmotic IVPB [START ON 04/04/2017] QUEtiapine (SEROQUEL) tablet 50 mg vancomycin, pharmacy to manage vancomycin, random dosing Physical exam BP: 182/88 (04/03 2214) Temp: 37 C (98.6 F) (04/03 2214) Pulse: 73 (04/03 2214) Respirations: 18 PER MINUTE (04/03 2214) SpO2: 97 % (04/03 2214) O2 Delivery: Nasal Cannula (04/03 2214) BP: (182)/(88) Temp: [37 C (98.6 F)] Pulse: [73] Respirations: [18 PER MINUTE] SpO2: [97 %] O2 Delivery: Nasal Cannula There were no vitals filed for this visit. General: Alert and response to question appropriately. VS as above. No acute distress . - Head: surgical site healing well, Right frontal fore head - soft, ttp, ? hematoma Eyes: No conjunctival injection. No scleral icterus. Ears, nose, mouth, and throat : No erythema. MMM. No erythema, exudate noted. Neck: Symmetric appearance without crepitus, no obvious mass or noticeable swelling, Lungs: No use of accessory muscles. Clear to auscultation bilaterally without wheezes, rales, or rhonchi. Cardiovascular: Regular rate, S1, S2 normal, no murmurs, clicks, rubs, or gallops appreciated . 2+ and symmetric, all extremities. No edema in BLE. Abdomen: BS+, soft, +ttp to palpation diffusely. Patient had a bulge on RLQ which he reported due to his previous peritoneal dialysis catheter placement however not done Skin: Skin color normal, no obvious evidence of rashes. Musculoskeletal: Normal 5/5 hand-enrollment representative strength and distal strength in BLE. ROM normal. No joints swelling or erythema. Neurologic: Alerted and oriented . 5/5 hand-enrollment representative and distal strenght. Normal ROM. No Sensation grossly intact. No focal weakness. Psych: Alerted and oriented, calm, normal affect Labs No results for input(s): NA, K, CL, CO2, BUN, CR, GAP, MG, PO4, GFR, ALBUMIN, TOTBILI, AST, ALT in the last 72 hours. No results for input(s): WBC, HGB, HCT, PLTCT, MCV, INR in the last 72 hours. Radiology and Other Diagnostic Procedures Review No results found. in this encounter Procedure Notes * Tara Jaime RN - 04/11/2017 10:22 AM SECONDARY HISTORY TEACHER Associated Order(s): HEMODIALYSIS INPATIENT; HEMODIALYSIS DATE Pt tolerated tx okay, was insistant on coming off tx early so got him to complete all but 15min of his tx. 2.7L cleared. Report given to floor RN * Dharmesh Navarro RN - 04/09/2017 8:56 PM SECONDARY HISTORY TEACHER Associated Order(s): HEMODIALYSIS DATE; HEMODIALYSIS INPATIENT Patient arrived via bed and treatment started at 1616 pm. Vital signs stable. Patient tolerating treatment well. Treatment complete 1925 pm. Vital signs stable. [place] removed from L AV fistula and site healed. 3 and a half liters fluid removed from patient. Report given to unit nurse. Patient transported back to own unit via bed in stable condition. * Corazon Caba RN - 04/04/2017 6:13 PM SECONDARY HISTORY TEACHER Associated Order(s): HEMODIALYSIS INPATIENT; HEMODIALYSIS DATE 1712 - Hemodialysis initiated using left arm fistula. Plan for a 4 hour treatment with 3-4 liters of fluid. Pt insisting on sitting on the edge of the bed. Will not listen to suggestions that it was a safety concern and not allowed. Insists that he will sit up regardless of whether he is allowed or not. After several minutes pt sat up on the edge and refused to sit back. Behavioral response called. After several minutes with the behavioral response teams presence, able to convince pt to get back into bed. Pt continually taking nasal cannula off, SpO2 90-92%, able to convince patient to put NC on periodically. Pt asking for Tylenol consistently, reminded often that the Tylenol is not available until 1929. 1814 - Discussed with Dr. Reyna pts insistence that he cannot tolerate 4 liters of fluid and only wants 2.5 liters. Pt also unhappy with the [address] Reyna, okay to decrease fluid goal and time if pt is insistent. Pt agreeable to try 3.5 hours with 2.5 liters of fluid removal. Every 5 minutes having to readdress plan with patient and convince him that he needs dialysis. 1929 - Pt insisting to be taken off of treatment. Able to get patient to agree to wait until 2 liters of fluid has been removed. Pt continually asking about time and insisting that the treatment be finished. 1999 - Pt tolerated hemodialysis treatment without complications. Pt completed 2 hours and 20 minutes of treatment. Removed 2 liters of fluid. in this encounter Consult Notes * Saeid Anderson MD - 04/07/2017 9:26 AM SECONDARY HISTORY TEACHER Associated Order(s): CONSULT ADULT PSYCHIATRY PHYSICIAN Formatting of this note may be different from the original. PSYCHIATRY CONSULT NOTE Room/Bed: HC822/ Admission Date: 04/03/2017 LOS: 4 days Consult type: Opinion with orders Reason for Consult: Decision making capacity (refusing blood draws, dialysis, wanting to leave AMA) Assessment: 1. Capacity assessment Recommendations: Patient is able to fully explain the reason why he is getting dialysis (ESRD) , and understands the risk of refusing dialysis (fluid retention, worsening sickness, and possibly ). He understands that he needs dialysis to treat his ESRD and there are no superior medical options available to him to treat ESRD. For these reasons, psychiatry feels patient has the capacity to refuse dialysis. That being said, patient is open to voluntarily getting dialysis here at as long as he can be assured that a certain nurse ("Lanre") is the one who performs his dialysis due to a favorable experience with this nurse previously. Seen and discussed with: Dr. Nixon Please feel free to contact us with any additional questions or concerns by paging the consult team between 8am and 5pm on weekdays and between 8am and 3pm on weekends at [phone]. Otherwise, page the president celebrity acquistion instructional supervisor. Chief Concern: "Stroke and aneurysm." History of Present Illness: Naren Mayfield is a 51 y.o. male with no past psychiatric history who is admitted after developing fever at rehab facility. Psych was consulted for decision making capacity as he is refusing blood drawas, dialysis and asking to leave AMA. Patient says he has been asking to leave because he wants to be closer to family in [place], [place]. He says that he has been feeling "a little depressed" because he misses his daughter. He also says that he has rent payments due, and if he does not pay the rent he will lose his house. He has full custody of his 9y/o daughter, and if he loses his house he will lose his daughter. He says, "If I lose my daughter, I don't know what I would do." Daughter is currently living with his sister. He denies SI, HI, and AVH. He is very focused that he would like to be transferred to a rehab facility near his home on Saturday, unless he would leave tomorrow. He denies poor appetite, changes in sleep, PMA/PMR, anhedonia, changes in concentration, or thoughts of suicide. He denies feeling anxious about anything except wanting to go home. He denies hx of malcolm or psychosis. 1. Is patient able to understand the medical problem? Sample questions: What is your most serious medical problem right now? Do you have a problem with [ specific issue]? Score: Yes What was patients response? "I have kidney failure, and I just had a stroke before I came here. I just don't want to go to dialysis here. It hurts more here than at the place I usually go. I don't like the people here. I'm not going to lie to you." 2. Does patient understand proposed treatment? Sample questions: What is the treatment for [specific problem]? Can it be treated by [proposed treatment]? Score: Yes What was patients response? "Dialysis" 3. Is patient able to understand alternatives to proposed treatment? Sample questions: Are there any other treatments for [specific problem]? Can you take [ medication/surgery/rehab/etc]? Score: Yes What was patients response? "Not many other ways besides dialysis because my kidneys are bad." 4. Is patient able to understand option of refusing/withholding/withdrawing treatment? Sample Questions: What are your other options? Can you refuse [ surgery/medications/rehab/etc]? Score: Yes What was patients response? "I've been through it before. I get real sick, have fluid retention, or eventually I could ." 5. Is patient able to understand and express understanding of possible outcomes of refusing proposed treatment? Sample Questions: What could happen if you don t have [surgery/medication/etc]? Could your condition get worse without [ surgery/medication/etc]? Score: Yes What was patients response? "I will have fluid retention and get real sick. I could also ." 6. Is the patients decisions affected by depression or psychosis? Sample questions: Why dont you want to have [proposed treatment]? Score: Yes What was patients response? "I don't get along with them [the staff] here too much. I'm sorry, but that makes a difference to me. I'm not demanding to leave today. I want to leave on Saturday. Transport is already set up." 8. Overall impression: Definitely capable Comments: Access to firearms? No Past Psychiatric History: - No past psychiatric diagnosis. - No past psychiatric admissions. - No past psychiatric medications. - No past suicide attempts. Family Psychiatric History: - No family history of psychiatric illness Substance Use: - ETOH: quit 3 years ago - Tobacco: Quit in March, previous 0.5ppd - Illicit drugs: previous history of meth use "years ago" Psychosocial/Substance History: - Lives in a house in [place], [place] with 9y/o daughter. 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 x3, 2x. Still to last , but currently split, thinks she's in senior care for meth use. Five total kids (ages 25, 22, 20, 17, 9). Social History Social History Marital status: Spouse name: N/A Number of children: N/A Years of education: N/A Social History Main Topics Smoking status: Current Every Day Smoker Packs/day: 1.00 Years: 30.00 Smokeless tobacco: None Alcohol use None Drug use: None Sexual activity: Not Asked Other Topics Concern None Social History Narrative Past Medical/Surgical History: Past Medical History: Diagnosis Date Cerebral aneurysm rupture (HCC) 03/2017 DM (diabetes mellitus) ([facility]) last A1C is wnl on 03/12/17 Dysphagia ESRD (end stage renal disease) ([facility]) T/TH/S via AV fistula on LUE HLD (hyperlipidemia) HTN (hypertension) : Past Surgical History: Procedure Laterality Date INTRACRANIAL ANEURYSM REPAIR N/A 03/10/2017 REPAIR ANEURYSM CRANIOTOMY performed by Edgar Bee MD at [facility] OR/Periop INTRACRANIAL ANEURYSM REPAIR Right 03/10/2017 Rt pterional craniotomy for clipping of MCA aneurysm performed by Edgar Bee MD at [facility] OR/Periop HX ABDOMEN SURGERY RLQ cadaveral flap related to to previous attempt of ?PD catheter : Home Medications: Prescriptions Prior to Admission Medication Sig Dispense Refill Last Dose acetaminophen (TYLENOL) 325 mg tablet Take 2 tablets by mouth every 4 hours as needed. 0 albuterol (VENTOLIN HFA) 90 mcg/actuation inhaler Inhale 2 puffs by mouth into the lungs every 4 hours as needed for Wheezing or Shortness of Breath. Shake well before use. 03/08/2017 amLODIPine (NORVASC) 10 mg tablet Take 10 mg by mouth daily. 03/09/2017 atorvastatin (LIPITOR) 10 mg tablet Take 10 mg by mouth at bedtime daily. 03/08/2017 calcium acetate (PHOSLO) 667 mg capsule Take two tablets with meals and take one with snacks 03/09/2017 carboxymethylcellulose (REFRESH PLUS) 0.5 % dpet Apply 1 drop to both eyes daily as needed. cloNIDine (CATAPRESS) 0.1 mg tablet Take 0.1 mg by mouth every 6 hours as needed. doxazosin (CARDURA) 8 mg tablet Take 8 mg by mouth at bedtime daily. 2016 ferric citrate 210 mg iron tab Take 210 mg by mouth twice daily. 2016 heparin (porcine) PF 5,000units/0.5mL injection syringe Inject 0.5 mL under the skin every 8 hours. [] HEPARIN SODIUM,PORCINE (HEPARIN (PORCINE)) 5,000 unit/mL injection Administer 5,000 Units through vein every 8 hours. Levetiracetam 1,000 mg tab Take 1,500 mg by mouth at bedtime daily. losartan(+) (COZAAR) 100 mg tablet Take 100 mg by mouth daily. melatonin 3 mg tab Take 1 tablet by mouth at bedtime daily. metoprolol XL (TOPROL XL) 200 mg extended release tablet Take 200 mg by mouth twice daily. nystatin (MYCOSTATIN) 100,000 units/mL oral suspension Take 5 mL by mouth four times daily. 0 QUEtiapine (SEROQUEL) 50 mg tablet Take 1 tablet by mouth twice daily. senna/docusate (SENOKOT-S) 8.8/50 mg /10 mL solution Take 10 mL by mouth twice daily. Hospital Medications: Scheduled Meds: albuterol 0.5% (PROVENTIL; VENTOLIN) nebulizer solution 2.5 mg 2.5 mg Inhalation BID & PRN amLODIPine (NORVASC) tablet 10 mg 10 mg Oral QDAY atorvastatin (LIPITOR) tablet 10 mg 10 mg Oral QHS calcium acetate (PHOSLO) capsule 1,334 mg 1,334 mg Oral TID w/ meals cloNIDine (CATAPRESS) tablet 0.1 mg 0.1 mg Oral BID doxazosin (CARDURA) tablet 8 mg 8 mg Oral QHS doxycycline (VIBRAMYCIN) tablet 100 mg 100 mg Oral BID epoetin carine (PROCRIT) injection 20,000 Units 20,000 Units Intravenous Once per day on Sat furosemide (LASIX) tablet 40 mg 40 mg Oral BID(-) ipratropium bromide (ATROVENT) 0.02 % nebulizer solution 0.5 mg 0.5 mg Inhalation BID & PRN levETIRAcetam (KEPPRA) tablet 1,500 mg 1,500 mg Oral QDAY losartan (COZAAR) tablet 100 mg 100 mg Oral QDAY melatonin tablet 3 mg 3 mg Oral QHS metoprolol XL (TOPROL XL) tablet 100 mg 100 mg Oral BID nicotine (NICODERM CQ STEP 3) 7 mg/day patch 1 patch 1 patch Transdermal QDAY pantoprazole (PROTONIX) injection 40 mg 40 mg Intravenous BID(02-26) senna/docusate (SENOKOT-S) tablet 2 tablet 2 tablet Oral BID sodium chloride (SEA MIST) 0.65 % nasal spray 1-2 spray 1-2 spray Each Nostril TID Continuous Infusions: PRN and Respiratory Meds:acetaminophen Q4H PRN, hydrALAZINE Q4H PRN, nicotine polacrilex Q1H PRN, polyethylene glycol 3350 BID PRN, sodium chloride 0.9% (NS) IP Dialysis PRN, sodium chloride 0.9% (NS) IP Dialysis PRN, sodium chloride 0.9 % (NS) IP Dialysis PRN : Allergies: Heparin Review of Systems: A 14 point review of systems was negative except for: Constitutional: positive for fatigue Eyes: positive for visual disturbance Gastrointestinal: positive for nausea Neurological: positive for headaches Vital Signs: Last Filed in 24 hours Vital Signs: 24 hour Range BP: 156/73 (04/07 700) Temp: 36.3 C (97.4 F) (04/07 700) Pulse: 55 (04/07 700) Respirations: 20 PER MINUTE (04/07 700) SpO2: 100 % (04/07 700) O2 Delivery: Nasal Cannula (04/07 700) BP: (150-186)/(69-89) Temp: [36 C (96.8 F)-36.7 C (98.1 F)] Pulse: [55-64] Respirations: [16 PER MINUTE-20 PER MINUTE] SpO2: [92 %-100 %] O2 Delivery: Nasal Cannula MENTAL STATUS EXAMINATION General/Constitutional: appears stated age, dressed in hospital scrubs, fair grooming Eye Contact: good Behavior: Calm, cooperative; appropriate for conversation Speech: RRR with normal volume and tone. Good articulation Mood: "Alright" Affect: Hypothymic, but content ; mood congruent Thought Process: Linear and goal directed Thought Content: denies SI, HI. No evidence of delusions Perception: Denies AVH Associations: Intact Insight/Judgment: Limited/poor Orientation: AAOx3 (name/year/location) Recent and remote memory: grossly intact Attention span and concentration:appropriate for conversation Cognition: average Language: gabonese, fluent Fund of knowledge and vocabulary: average Physical Exam: Neuro: No gross neurologic deficits. Notable bulge on right side of head s/p hemicraniotomy Musculoskeletal: Moves all four extremities spontaneously Lab/Radiology/Other Diagnostic Tests: 24-hour labs: Results for orders placed or performed during the hospital encounter of (from the past 24 hour(s)) CBC AND DIFF Collection Time: 04/07/17 7:49 AM Result Value Ref Range White Blood Cells 2.3 (L) 4.5 - 11.0 K/UL RBC 2.31 (L) 4.4 - 5.5 M/UL Hemoglobin 7.0 (L) 13.5 - 16.5 GM/DL Hematocrit 21.0 (L) 40 - 50 % MCV 91.3 80 - 100 FL MCH 30.3 26 - 34 PG MCHC 33.3 32.0 - 36.0 G/DL RDW 14.2 11 - 15 % Platelet Count 113 (L) 150 - 400 K/UL MPV 8.5 7 - 11 FL COMPREHENSIVE METABOLIC PANEL Collection Time: 04/07/17 7:49 AM Result Value Ref Range Sodium 134 (L) 137 - 147 MMOL/L Potassium 4.7 3.5 - 5.1 MMOL/L Chloride 96 (L) 98 - 110 MMOL/L Glucose 116 (H) 70 - 100 MG/DL Blood Urea Nitrogen 66 (H) 7 - 25 MG/DL Creatinine 11.72 (H) 0.4 - 1.24 MG/DL Calcium 8.5 8.5 - 10.6 MG/DL Total Protein 6.7 6.0 - 8.0 G/DL Total Bilirubin 0.4 0.3 - 1.2 MG/DL Albumin 3.4 (L) 3.5 - 5.0 G/DL Alk Phosphatase 86 25 - 110 U/L AST (SGOT) 19 7 - 40 U/L CO2 23 21 - 30 MMOL/L ALT (SGPT) 14 7 - 56 U/L Anion Gap 15 (H) 3 - 12 eGFR Non 5 (L) >60 mL/min eGFR 6 (L) >60 mL/min MAGNESIUM Collection Time: 04/07/17 7:49 AM Result Value Ref Range Magnesium 2.1 1.6 - 2.6 mg/dL PHOSPHORUS Collection Time: 04/07/17 7:49 AM Result Value Ref Range Phosphorus 4.9 (H) 2.0 - 4.0 MG/DL Saeid Anderson MD Associated attestation - Tony Nixon MD - 04/07/2017 4:54 PM SECONDARY HISTORY TEACHER Formatting of this note may be different from the original. ATTESTATION I personally performed the rubin portions of the E/M visit, discussed the case with the resident and concur with resident documentation of history, physical exam, assessment, and treatment plan unless otherwise noted. I personally participated in development of the plan of care. Assessment: Acute stress reaction ESRD on HD Pt has capacity to refuse dialysis when evaluated today. Pt has a strong understanding of why he needs dialysis and that refusing it ultimately can lead to his kidney's failing and him becoming, "Sick and I could ". Pt endorses not wanting dialysis because a particular worker in the dialysis clinic named Sherly (Iris?) was particularly rough and discourteous towards him. Pt did find rapport with a dialysis worker named Lanre and endorses he would be willing to work with him should he be down there. Patient understands what caused him to come in the hospital and what has been done. Pt indicates that he understands they may need to do emergent dialysis should his medical team find it medically necessary. Pt prefers to do dialysis at his place of residence as he is more comfortable there. Please call with any further questions. Thank you. Please feel free to contact us with any additional questions or concerns by paging the consult team between 8am and 5pm on weekdays and between 8am and 3pm on weekends [phone]. Otherwise, page the president celebrity acquistion instructional supervisor. Staff name: Tony Nixon MD Date: 04/07/2017 * Andrew Barnes - 04/04/2017 12:19 PM SECONDARY HISTORY TEACHER Associated Order(s): CONSULT NEPHROLOGY PHYSICIAN Formatting of this note may be different from the original. Renal Consult Naren Mayfield Admission Date: 04/03/2017 Assessment and Plan Active Problems: Subarachnoid bleed (HCC) Acquired skull defect Pneumonia Chronic hypoxemic respiratory failure (HCC) Vascular dementia without behavioral disturbance ESRD (end stage renal disease) on dialysis (HCC) Acute blood loss as cause of postoperative anemia Normocytic anemia Renovascular hypertension Influenza B Rhinovirus infection COPD with hypoxia (HCC) Oropharyngeal dysphagia Naren Mayfield is a 51 y.o. male with ESRD admitted with influenza. 1. ESRD -on HD TTS, last HD session unknown -access LUE AVF -target EDW 103 kg 2. Influenza 3. Hx of SAH with residual neurologic deficits 4. Anemia of CKD with iron deficiency 5. Secondary hyperparathyroidism. 6. HTN with component of volume dependence Recommendations: -HD today with goal 3 L UF -renal HD diet -renal dosing of medications -standing daily weight -avoid PICC lines -continue phoslo 2 tabs TIDWM -start EPO 10,000 TIW -please give iron sucrose 300 mg IV daily x3 Andrew Barnes Pager [phone] History Reason for Consult: ESRD HPI: Naren Mayfield is a 51 y.o. male with history of ESRD on HD with recent history of ruptured MCA aneurysm, subarachnoid hemorrhage, and hemicraniectomy admitted on 03/09 and discharged to rehab on 03/26 who developed fever at the rehab facility and was transferred for further management. A CT head showed 3 mm midline shift, stable from previous, and he was transferred to [facility]. He does report increased cough, fever, and muscle aches but is unable to provide more detailed history due to his cognitive impairment. Past Medical History Past Medical History: Diagnosis Date Cerebral aneurysm rupture (HCC) 03/2017 DM (diabetes mellitus) (HCC) last A1C is wnl on 03/12/17 Dysphagia ESRD (end stage renal disease) (HCC) T/TH/S via AV fistula on LUE HLD (hyperlipidemia) HTN (hypertension) Past Surgical History: Procedure Laterality Date INTRACRANIAL ANEURYSM REPAIR N/A 03/10/2017 REPAIR ANEURYSM CRANIOTOMY performed by Edgar Bee MD at [facility] OR/Periop INTRACRANIAL ANEURYSM REPAIR Right 03/10/2017 Rt pterional craniotomy for clipping of MCA aneurysm performed by Edgar Bee MD at [facility] OR/Periop HX ABDOMEN SURGERY RLQ cadaveral flap related to to previous attempt of ?PD catheter Family History Family history reviewed; non-contributory Social History Social History Social History Marital status: Spouse name: N/A Number of children: N/A Years of education: N/A Social History Main Topics Smoking status: Current Every Day Smoker Packs/day: 1.00 Years: 30.00 Smokeless tobacco: None Alcohol use None Drug use: None Sexual activity: Not Asked Other Topics Concern None Social History Narrative Medications MEDS albuterol 0.5% 2.5 mg Inhalation BID & PRN amLODIPine 10 mg Oral QDAY atorvastatin 10 mg Oral QHS calcium acetate 1,334 mg Oral TID w/ meals doxazosin 8 mg Oral QHS doxycycline 100 mg Oral BID ipratropium bromide 0.5 mg Inhalation BID & PRN levETIRAcetam 1,500 mg Oral QDAY losartan 100 mg Oral QDAY melatonin 3 mg Oral QHS metoprolol XL 100 mg Oral BID oseltamivir 30 mg Oral QDAY pantoprazole 40 mg Intravenous BID(02-26) senna/docusate 2 tablet Oral BID sodium chloride 1-2 spray Each Nostril TID sodium chloride 0.9% (NS) NOW IV MEDS Prn acetaminophen Q4H PRN 650 mg at 04/04/17 0818, hydrALAZINE Q4H PRN, polyethylene glycol 3350 BID PRN, sodium chloride 0.9% (NS) IP Dialysis PRN , sodium chloride 0.9% (NS) IP Dialysis PRN, sodium chloride 0.9% (NS) IP Dialysis PRN HOME MEDS Prior to Admission Medications Prescriptions Last Dose Informant Patient Reported? Taking? QUEtiapine (SEROQUEL) 50 mg tablet No No Sig: Take 1 tablet by mouth twice daily. acetaminophen (TYLENOL) 325 mg tablet No No Sig: Take 2 tablets by mouth every 4 hours as needed. albuterol (VENTOLIN HFA) 90 mcg/actuation inhaler Prescription Bottles Yes No Sig: Inhale 2 puffs by mouth into the lungs every 4 hours as needed for Wheezing or Shortness of Breath. Shake well before use. amLODIPine (NORVASC) 10 mg tablet Prescription Bottles Yes No Sig: Take 10 mg by mouth daily. atorvastatin (LIPITOR) 10 mg tablet Prescription Bottles Yes No Sig: Take 10 mg by mouth at bedtime daily. calcium acetate (PHOSLO) 667 mg capsule Prescription Bottles Yes No Sig: Take two tablets with meals and take one with snacks doxazosin (CARDURA) 8 mg tablet Prescription Bottles Yes No Sig: Take 8 mg by mouth at bedtime daily. ferric citrate 210 mg iron tab Prescription Bottles Yes No Sig: Take 210 mg by mouth twice daily. heparin (porcine) PF 5,000units/0.5mL injection syringe No No Sig: Inject 0.5 mL under the skin every 8 hours. levETIRAcetam (KEPPRA) 750 mg tablet No No Sig: Take 2 tablets by mouth daily. Do not stop being used for seizure control losartan (COZAAR) 50 mg tablet No No Sig: Take 2 tablets by mouth daily. melatonin 3 mg tab No No Sig: Take 1 tablet by mouth at bedtime daily. methylcellulose (GONIOSOL) 2.5 % ophthalmic solution No No Sig: Apply 1 drop to right eye as directed as Needed. Indications: DRY EYE metoprolol XL (TOPROL XL) 100 mg extended release tablet No No Sig: Take 1 tablet by mouth twice daily. Titration towards home dose 200mg BID nystatin (MYCOSTATIN) 100,000 units/mL oral suspension No No Sig: Take 5 mL by mouth four times daily. senna/docusate (SENOKOT-S) 8.8/50 mg /10 mL solution No No Sig: Take 10 mL by mouth twice daily. Facility-Administered Medications: None Review of Systems Constitutional: fever Eyes: negative Ears, nose, mouth, throat, and face: negative Respiratory: cough Cardiovascular: negative Gastrointestinal: negative Genitourinary:negative Integument/breast: negative Hematologic/lymphatic: negative Musculoskeletal:negative Neurological: negative Endocrine: negative Physical Exam Vital Signs: Last Filed In 24 Hours Vital Signs: 24 Hour Range BP: 146/77 (04/04 1140) Temp: 36.5 C (97.7 F) (04/04 1140) Pulse: 58 (04/04 1140) Respirations: 20 PER MINUTE (04/04 0911) SpO2: 96 % (04/04 1140) O2 Delivery: None (Room Air) (04/04 1140) Height: 172.7 cm (67.99") (04/04 1000) BP: (146-182)/(62-88) Temp: [36.5 C (97.7 F)-37.2 C (99 F)] Pulse: [56-73] Respirations: [14 PER MINUTE-20 PER MINUTE] SpO2: [93 %-100 %] O2 Delivery: None (Room Air) Intensity Pain Scale 0-10 (Pain 1): 8 (04/04/17 0818) Vitals: 04/04/17 0418 04/04/17 1000 Weight: 107.3 kg (236 lb 8.9 oz) 107.3 kg (236 lb 8.9 oz) Intake/Output Summary (Last 24 hours) at 04/04/17 1219 Last data filed at 04/04/17 0330 Gross per 24 hour Intake 0 ml Output 100 ml Net -100 ml Gen: Alert and Oriented, No Acute Distress HEENT: Sclera normal, wearing helment CV: no JVD, S1 and S2 normal, no rubs, murmurs or gallops Pulm: Clear to Auscultation bilateral, slightly diminished GI: BS+ x4, non-tender to palpation Neuro: facial droop, memory impaired Ext: trace edema, nontender Skin: no rash, dry Access: LUE AVF with good thrill Labs Recent Labs 04/04/17 0033 NA 132* K 4.3 CL 91* CO2 26 GAP 15* BUN 50* CR 8.45* GLU 121* CA 9.4 ALBUMIN 3.7 MG 2.0 PO4 6.1* TSH 3.562 Recent Labs 04/04/17 0033 04/04/17 0638 04/04/17 0746 WBC 4.6 -- 3.5* HGB 6.6* -- 7.0* HCT 19.0* -- 20.4* PLTCT 97* -- 101* INR 1.2 -- -- PTT 32.2 -- -- AST 21 -- -- ALT 14 -- -- ALKPHOS 87 -- -- TNI 0.17* 0.16* -- Estimated Creatinine Clearance: 12.6 mL/min (based on Cr of 8.45). Vitals: 04/04/17 0418 04/04/17 1000 Weight: 107.3 kg (236 lb 8.9 oz) 107.3 kg (236 lb 8.9 oz) No results for input(s): PHART, PO2ART in the last 72 hours. Invalid input(s): PC02A Radiology Pertinent radiology reviewed. Associated attestation - Sukh Reyna MD - 04/04/2017 4:35 PM SECONDARY HISTORY TEACHER I personally performed the rubin portions of the E/M visit, discussed case with resident/fellow and concur with resident/fellow documentation of history, physical exam, assessment, and treatment plan unless otherwise noted. Impression: 1. ESRD - on chronic HD therapy, TTS schedule - functional LUE AVF; dry wt of 103kg - some signs of volume overload on exam and recent CT chest 2. Influenza + 3. 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 Anemia - severe Recommendations: Plan for HD today w/ goal UF of 3-4 liters Check daily chemistry Will keep on TTS HD schedule during admission May have component of iron def based on % sat, but may need to hold on aggressive iron repletion given ferritin >1000, per renal guidelines Daily standing weights; accurate I/O Renal dosing on all meds in this encounter Miscellaneous Notes * Care Plan - Kayy Greene RN - 04/12/2017 11:16 AM SECONDARY HISTORY TEACHER Problem: Infection, Risk of Goal: Absence of infection Outcome: Goal Achieved Date Met: 04/12/17 Droplet isolation, pt educated Problem: Discharge Planning Goal: Participation in plan of care Outcome: Goal Achieved Date Met: 04/12/17 RN and patient discussed plan of care, patient verbalized understanding. Problem: Falls, High Risk of Goal: Absence of falls-Adult Patient Outcome: Goal Achieved Date Met: 04/12/17 No falls * Case Mgmt DC Plan - Zuly David - 04/12/2017 9:52 AM SECONDARY HISTORY TEACHER Case Management Progress Note NAME:Naren Mayfield :[birth year] AGE: 51 y.o. ADMISSION DATE: 04/03/2017 DAYS ADMITTED: LOS: 9 days Todays Date: 04/12/2017 Plan: Anticipate discharge to [facility] via [facility] and resumption of OP HD at [place], [place] (Phone: / ) on , , Sat. Interventions ? Support Support: Pt/Family Updates re:POC or DC Plan ? Info or Referral ? Discharge Planning Discharge Planning: [facility] Facility - This NCM spoke with Keyona, at [place], [place] ( / ), and informed her of pt's discharge today and to be expecting pt for dialysis tomorrow. - Faxed updated dialysis flowsheets at this time, as well. ? Medication Needs ? Financial ? Legal ? Other Disposition ? Discharge Preparation When ready for discharge, who will be responsible for transporting?: [facility] Type of Residence: [facility] Patient expects to be discharged to: [facility] Facility Was the patient receiving home care services?: No ? Expected Discharge Expected Discharge Date: 04/12/17 ? Discharge Disposition Disposition: [facility] Facility (SNF) Fpc/Long-Term Care Facility State: [place] SN[place]F [place] Other (specify) ([facility]) ? [facility] THANG Truong, RN Nurse Food Sampler - Med 1 Service Pager: [phone] * Case Mgmt DC Plan - Susan Carranza - 04/12/2017 9:33 AM SECONDARY HISTORY TEACHER .Case Management Progress Note NAME:Naren Mayfield :[birth year] AGE: 51 y.o. ADMISSION DATE: 04/03/2017 DAYS ADMITTED: LOS: 9 days Todays Date: 04/12/2017 Plan Pt to DC to [facility] via [facility] with Oxygen today at 1330. Interventions ? Support Support: Pt/Family Updates re:POC or DC Plan REJI reviewed EMR and discussed POC with team, pt stable for afternoon DC. ? Info or Referral ? Discharge Planning Discharge Planning: [facility] Facility REJI called facility [phone] and left VM for admissions with update on DC time. REJI called [facility] to arrange transportation for 1330. REJI updated team and RN on DC time. SW faxed hand signed DC orders to [phone]. ? Medication Needs ? Financial ? Legal ? Other Sw provided notarized copies of pt signing documentation consenting to sister having have financial access to pay pt's bills. REJI notified pt and R of documentation placed in wall chart. Disposition ? Discharge Preparation When ready for discharge, who will be responsible for transporting?: [facility] Type of Residence: [facility] Patient expects to be discharged to: [facility] Facility Was the patient receiving home care services?: No ? Expected Discharge Expected Discharge Date: 04/12/17 ? Discharge Disposition Disposition: [facility] Facility (SNF) Fpc/Long-Term Care Facility State: [place] SNF/LTCF [place]: Other (specify) ([facility]) ? [facility] -Amairani Carranza LMSW *0399 * Case Mgmt DC Plan - Miracle Cabrera - 04/11/2017 11:11 AM SECONDARY HISTORY TEACHER VEGETABLE LOADER note: Transfer packet delivered to patient wall unit. Miracle Cabrera Nursing Secretary * Case Mgmt DC Plan - Susan Carranza - 04/11/2017 8:22 AM SECONDARY HISTORY TEACHER Case Management Progress Note NAME:Naren Mayfield :[birth year] AGE: 51 y.o. ADMISSION DATE: 04/03/2017 DAYS ADMITTED: LOS: 8 days Todays Date: 04/11/2017 Plan Pt to DC to [facility] at [address] [place] [address] via [facility] today after completing dialysis. Interventions ? Support Support: Pt/Family Updates re:POC or DC Plan REJI reviewed EMR, pt stable for DC after dailyzing. Per EMR, pt already in dialysis this morning. Addendum: REJI informed pt's BP is high after not receiving medications before HD today. Team working on BP but anticipates pt still stable for DC. REJI contacted RN requested page when pt returns to unit to arrange transport. Pt will need Oxygen. ? Info or Referral ? Discharge Planning Discharge Planning: [facility] Facility REJI contacted [facility] [phone] and left VM with DCP update. REJI tasked VEGETABLE LOADER to deliver transfer packet. SW to call [facility] [phone] when pt returns to unit. SW to fax signed DC orders to [phone] when available. RN to give report to [phone] and request DON. Addendum:1400 SW called SW at facility with update on delay in DC. SW called sister back with update on delay in DC. SW contacted [facility] [phone] and discussed DCP. ? Medication Needs ? Financial ? Legal ? Other Disposition ? Discharge Preparation When ready for discharge, who will be responsible for transporting?: [facility] Type of Residence: [facility] Patient expects to be discharged to: [facility] Facility Was the patient receiving home care services?: No ? Expected Discharge Expected Discharge Date: 04/10/17 ? Discharge Disposition Disposition: [facility] Facility (SNF) Fpc/Long-Term Care Facility State: [place] [facility] ? [facility] -Amairani Carranza LMSW *0399 * Care Plan - Ama Branch RN - 04/10/2017 6:46 PM SECONDARY HISTORY TEACHER Problem: Discharge Planning Goal: Participation in plan of care Outcome: Goal Ongoing Patient participates and is involved in care planning decisions Eager to DC back to facility [facility] * Case Mgmt DC Plan - Zuly David - 04/10/2017 9:15 AM SECONDARY HISTORY TEACHER Case Management Progress Note NAME:Naren Mayfield :[birth year] AGE: 51 y.o. ADMISSION DATE: 04/03/2017 DAYS ADMITTED: LOS: 7 days Todays Date: 04/10/2017 Plan: Anticipate discharge to [facility] and resumption of OP HD at [place], [place] (Phone: / ) on , , Sat. Interventions ? Support Support: Pt/Family Updates re:POC or DC Plan ? Info or Referral ? Discharge Planning Discharge Planning: OP HD or PD - This NCM spoke with Ced at [place], [place] ( / ) and gave update at this time. Both confirmed that pt still have previous chair time. - Faxed clinical updates to [place], [place] at this time, as well. ? Medication Needs ? Financial ? Legal ? Other Disposition ? Discharge Preparation When ready for discharge, who will be responsible for transporting?: facility Type of Residence: Rehab facility Patient expects to be discharged to: Rehab facility Was the patient receiving home care services?: No ? Expected Discharge Expected Discharge Date: 04/10/17 ? Discharge Disposition ? [facility] * Case Mgmt DC Plan - Susan Carranza - 04/10/2017 9:14 AM SECONDARY HISTORY TEACHER Case Management Progress Note NAME:Naren Mayfield :[birth year] AGE: 51 y.o. ADMISSION DATE: 04/03/2017 DAYS ADMITTED: LOS: 7 days Todays Date: 04/10/2017 Plan SW anticipates pt to DC to [facility] and resumption of OP HD. Addendum: Pt to DC tomorrow at 1400 after completing dialysis. Interventions ? Support Support: Pt/Family Updates re:POC or DC Plan SW reviewed EMR and discussed POC with team, pt refused dialysis yesterday. Pt's SNF expressed confusion over whether or not pt could DC to facility. ? Info or Referral ? Discharge Planning Discharge Planning: [facility] Facility Facility will need to call [facility] [phone] to arrange continuous transportation to OP HD at [address], [place] T,Th,Sat. Pt currently on 3 liters of Oxygen. REJI called facility [phone] and requested callback. REJI called facility [phone] and left VM requesting callback. Addendum 1200 SW called facility again and spoke to Aysha who reports she requested clinicals yesterday for DON but did not receive them. REJI faxed updates to [phone]. REJI called [facility] [phone] and provided update on DCP. [facility] did express concern for pt if he did not DC today because she does nto want pt to leave AMA. REJI provided supportive listening and explained SW will determine if pt can DC to facility today. 1300: REJI called facility at 0230 to verify they received updates. REJI spoke to JANET and requested DON to review information ad then call SW back. 1400: SW received callback stating they can accept pt but need care assessment. REJI inquired why facility needs care assessment as pt is DC to SNF and primary payor is medicare. SW at facility after discussion still requesting CARE assessment. SW verified CARE assessment is not needed. SW at facility requesting SW fax hand signed DC orders to facility as they have had issues receiving signed orders from [facility]. SW agreeable. Facility requesting DC tomorrow after dialysis to ensure they can obtain pt' s medications. SW agreeable. SW contacted RN requesting early dialyze time to assist with DC time. REJI spoke with pt who expressed frustration but verbalized that he will need to dialyze at [facility] before DC to faiclity. ? Medication Needs ? Financial ? Legal ? Other SW informed by [facility] that SW at requesting alternative placement for IPR specifically for people with strokes 2x times today. [facility] requesting SW call SW at . This SW explained last week that pt does not qualify for IPR due to not participating in therapies. SW at also inquired to [facility] last week regarding changing alternative DCP. Pt and pt's family and previous IPR pt was at are agreeable to DCP and believe it is the most appropriate level of care for pt at this time. REJI called HD SW at [phone] and left requesting callback. Disposition ? Discharge Preparation When ready for discharge, who will be responsible for transporting?: facility Type of Residence: Rehab facility Patient expects to be discharged to: Rehab facility Was the patient receiving home care services?: No ? Expected Discharge Expected Discharge Date: 04/10/17 ? Discharge Disposition ? [facility] -Amairani Carranza, [facility] *0399 * Care Plan - Adelita Gómez RN - 04/09/2017 6:42 PM SECONDARY HISTORY TEACHER Problem: Infection, Risk of Goal: Knowledge of Infection Control Procedures Outcome: Goal Ongoing Droplet isolation precautions in place. RN educated pt. to wear mask while outside of room Problem: Discharge Planning Goal: Participation in plan of care Outcome: Goal Ongoing Pt. is compliant with taking medications, division head, and was compliant with HD this shift. Goal: Prepared for discharge Outcome: Goal Ongoing Pt. is very focused on discharge and frequently talks about wanting to see his daughter. RN educated pt. on the importance of being medically stable prior to discharge. Problem: Falls, High Risk of Goal: Absence of falls-Adult Patient Outcome: Goal Ongoing High fall risk bundle in place. Problem: Mobility/Activity Intolerance Goal: Maximize functional ADLs and mobility outcomes Outcome: Goal Ongoing Pt. completes self care w/ stand by assistance * Case Mgmt DC Plan - Zunilda Rodriguez - 04/09/2017 5:17 PM SECONDARY HISTORY TEACHER Case Management Progress Note NAME:Naren Mayfield :[birth year] AGE: 51 y.o. ADMISSION DATE: 04/03/2017 DAYS ADMITTED: LOS: 6 days Todays Date: 04/09/2017 Plan [facility], when medically stable. Reji covering for primary team. Primary team will follow. Sw reviewed EMR and met with team. Pt is requesting to leave to [facility] AMA. Pt is refusing to go to dialysis. Team states that pt has capacity and competency to make decision to leave and to refuse dialysis. Sw communicated that facility can refuse to admit pt due to medical instability. Team later communicated that pt agreed to go to inpatient dialysis. Interventions ? Support Support: Pt/Family Updates re:POC or DC Plan ? Info or Referral ? Discharge Planning Discharge Planning: OP HD or PD Sw contacted Jenny, oil field tester, at [facility]. Jenny stated that the SNF has not received a referral for pt. Jenny stated that pt would not be accepted if he was not medically stable and left [facility] AMA. Sw tasked VEGETABLE LOADER to fax referral to [phone]. ? Medication Needs ? Financial ? Legal ? Other Disposition ? Discharge Preparation When ready for discharge, who will be responsible for transporting?: facility Type of Residence: Rehab facility Patient expects to be discharged to: Rehab facility Was the patient receiving home care services?: No ? Expected Discharge Expected Discharge Date: 04/10/17 ? Discharge Disposition ? Next Level Care Zunilda Rodriguez LMSW *[id number] * Case Mgmt DC Plan - Radha Torres - 04/09/2017 2:38 PM SECONDARY HISTORY TEACHER VEGETABLE LOADER Note: Received request from [facility] Zunilda Rodriguez to fax referrals to the following placements. [facility] (Fax) [phone] [place] [address] Updated [facility] Radha Torres Nursing Secretary For additional assistance please contact KARLA Rodriguez *[phone] * Care Plan - Shannen Leung, TENZIN - 04/09/2017 6:25 AM SECONDARY HISTORY TEACHER Problem: Infection, Risk of Goal: Absence of infection Outcome: Goal Ongoing Incisions are CDI, NOMI Problem: Falls, High Risk of Goal: Absence of falls-Adult Patient Outcome: Goal Ongoing Pt moving about the room with SBA Problem: Mobility/Activity Intolerance Goal: Maximize functional ADLs and mobility outcomes Outcome: Goal Ongoing Encouraging maximum ADLs * Care Plan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 (L) 137 - 147 MMOL/L Potassium 4.8 3.5 - 5.1 MMOL/L Chloride 95 (L) 98 - 110 MMOL/L Glucose 119 (H) 70 - 100 MG/DL Blood Urea Nitrogen 64 (H) 7 - 25 MG/DL Creatinine 11.52 (H) 0.4 - 1.24 MG/DL Calcium 9.4 8.5 - 10.6 MG/DL Total Protein 7.2 6.0 - 8.0 G/DL Total Bilirubin 0.5 0.3 - 1.2 MG/DL Albumin 3.8 3.5 - 5.0 G/DL Alk Phosphatase 91 25 - 110 U/L AST (SGOT) 15 7 - 40 U/L CO2 24 21 - 30 MMOL/L ALT (SGPT) 8 7 - 56 U/L Anion Gap 12 3 - 12 eGFR Non 5 (L) >60 mL/min Comment: [...] for questions. Specimen Performing Laboratory MAIN LAB [address] [place] [address] * CBC AND DIFF (04/11/2017 4:28 AM) Component Value Ref Range White Blood Cells 3.8 (L) 4.5 - 11.0 K/UL RBC 2.42 (L) 4.4 - 5.5 M/UL Hemoglobin 7.4 (L) 13.5 - 16.5 GM/DL Hematocrit 21.4 (L) 40 - 50 % MCV 88.5 80 - 100 FL MCH 30.5 26 - 34 PG MCHC 34.4 32.0 - 36.0 G/DL RDW 14.6 11 - 15 % Platelet Count 157 150 - 400 K/UL MPV 8.6 7 - 11 FL Neutrophils 78 (H) 41 - 77 % Lymphocytes 8 (L) 24 - 44 % Monocytes 11 4 - 12 % Eosinophils 3 0 - 5 % Basophils 0 0 - 2 % Absolute Neutrophil Count 3.00 1.8 - 7.0 K/UL Absolute Lymph Count 0.30 (L) 1.0 - 4.8 K/UL Absolute Monocyte Count 0.40 0 - 0.80 K/UL Absolute Eosinophil Count 0.10 0 - 0.45 K/UL Absolute Basophil Count 0.00 0 - 0.20 K/UL Specimen Performing Laboratory MAIN LAB [address] [place] [address] * TROPONIN-I (04/10/2017 3:00 PM) Component Value Ref Range Troponin-I 0.05 0.0 - 0.05 NG/ML Specimen Performing Laboratory Blood MAIN LAB [address] [place] [address] * 2-D + DOPPLER ECHOCARDIOGRAM (04/10/2017 2:24 PM) Component Value Ref Range IVS 1.57 0.6 [...] and PA systolic pressures are similar * PHOSPHORUS (04/10/2017 4:25 AM) Component Value Ref Range Phosphorus 3.4 2.0 - 4.0 MG/DL Specimen Performing Laboratory MAIN LAB [address] [place] [address] * MAGNESIUM (04/10/2017 4:25 AM) Component Value Ref Range Magnesium 1.9 1.6 - 2.6 mg/dL Specimen Performing Laboratory MAIN LAB [address] [place] [address] * COMPREHENSIVE METABOLIC PANEL (04/10/2017 4:25 AM) Component Value Ref Range Sodium 133 (L) 137 - 147 MMOL/L Potassium 4.5 3.5 - 5.1 MMOL/L Chloride 96 (L) 98 - 110 MMOL/L Glucose 125 (H) 70 - 100 MG/DL Blood Urea Nitrogen 50 (H) 7 - 25 MG/DL Creatinine 9.67 (H) 0.4 - 1.24 MG/DL Calcium 9.3 8.5 - 10.6 MG/DL Total Protein 7.1 6.0 - 8.0 G/DL Total Bilirubin 0.5 0.3 - 1.2 MG/DL Albumin 3.6 3.5 - 5.0 G/DL Alk Phosphatase 90 25 - 110 U/L AST (SGOT) 14 7 - 40 U/L CO2 25 21 - 30 MMOL/L ALT (SGPT) 10 7 - 56 U/L Anion Gap 12 3 - 12 eGFR Non 6 (L) [...] for questions. Specimen Performing Laboratory MAIN LAB [address] [place] [address] * CBC AND DIFF (04/10/2017 4:25 AM) Component Value Ref Range White Blood Cells 3.4 (L) 4.5 - 11.0 K/UL RBC 2.44 (L) 4.4 - 5.5 M/UL Hemoglobin 7.8 (L) 13.5 - 16.5 GM/DL Hematocrit 22.0 (L) 40 - 50 % MCV 90.2 80 - 100 FL MCH 31.8 26 - 34 PG MCHC 35.2 32.0 - 36.0 G/DL RDW 14.6 11 - 15 % Platelet Count 135 (L) 150 - 400 K/UL MPV 9.4 7 - 11 FL Neutrophils 76 41 - 77 % Lymphocytes 10 (L) 24 - 44 % Monocytes 10 4 - 12 % Eosinophils 4 0 - 5 % Basophils 0 0 - 2 % Absolute Neutrophil Count 2.60 1.8 - 7.0 K/UL Absolute Lymph Count 0.30 (L) 1.0 - 4.8 K/UL Absolute Monocyte Count 0.40 0 - 0.80 K/UL Absolute Eosinophil Count 0.10 0 - 0.45 K/UL Absolute Basophil Count 0.00 0 - 0.20 K/UL Specimen Performing Laboratory MAIN LAB [address] [place] [address] * HEMODIALYSIS INPATIENT (04/09/2017 8:59 PM) Narrative Dharmesh Navarro RN 04/09/20178:59 PM Patient arrived via bed and treatment started at 1616 pm. Vital signs stable. Patient tolerating treatment well. Treatment complete 1925 pm. Vital signs stable. [place] removed from L AV fistula and site healed. 3 and a half liters fluid removed from patient. Report given to unit nurse. Patient transported back to own unit via bed in stable condition. * HEMODIALYSIS DATE (04/09/2017 8:59 PM) Narrative Dharmesh Navarro RN 04/09/20178:59 PM Patient arrived via bed and treatment started at 1616 pm. Vital signs stable. Patient tolerating treatment well. Treatment complete 1925 pm. Vital signs stable. [place] removed from L AV fistula and site healed. 3 and a half liters fluid removed from patient. Report given to unit nurse. Patient transported back to own unit via bed in stable condition. * PHOSPHORUS (04/09/2017 7:28 AM) Component Value Ref Range Phosphorus 3.8 2.0 - 4.0 MG/DL Specimen Performing Laboratory MAIN LAB [address] [place] [address] * MAGNESIUM (04/09/2017 7:28 AM) Component Value Ref Range Magnesium 2.0 1.6 - 2.6 mg/dL Specimen Performing Laboratory MAIN LAB [address] [place] [address] * COMPREHENSIVE METABOLIC PANEL (04/09/2017 7:28 AM) Component Value Ref Range Sodium 130 (L) 137 - 147 MMOL/L Potassium 5.3 (H) 3.5 - 5.1 MMOL/L Chloride 94 (L) 98 - 110 MMOL/L Glucose 128 (H) 70 - 100 MG/DL Blood Urea Nitrogen 88 (H) 7 - 25 MG/DL Creatinine 14.29 (H) 0.4 - 1.24 MG/DL Calcium 8.8 8.5 - 10.6 MG/DL Total Protein 7.0 6.0 - 8.0 G/DL Total Bilirubin 0.5 0.3 - 1.2 MG/DL Albumin 3.4 (L) 3.5 - 5.0 G/DL Alk Phosphatase 86 25 - 110 U/L AST (SGOT) 14 7 - 40 U/L CO2 23 21 - 30 MMOL/L ALT (SGPT) 12 7 - 56 U/L Anion Gap 13 (H) 3 - 12 eGFR Non 4 (L) >60 mL/min Comment: The eGFR is not validated for use in drug dosing adjustments. Continue to use estimated creatinine clearance per dosing reference text. Please contact the Clinical Pharmacist for questions. eGFR 4 (L) >60 mL/min Comment: The eGFR is not validated for use in drug dosing adjustments. Continue to use estimated creatinine clearance per dosing reference text. Please contact the Clinical Pharmacist for questions. Specimen Performing Laboratory MAIN LAB [address] [place] [address] * CBC AND DIFF (04/09/2017 7:28 AM) Component Value Ref Range White Blood Cells 3.6 (L) 4.5 - 11.0 K/UL RBC 2.35 (L) 4.4 - 5.5 M/UL Hemoglobin 7.5 (L) 13.5 - 16.5 GM/DL Hematocrit 21.1 (L) 40 - 50 % MCV 89.9 80 - 100 FL MCH 32.0 26 - 34 PG MCHC 35.6 32.0 - 36.0 G/DL RDW 14.2 11 - 15 % Platelet Count 116 (L) 150 - 400 K/UL MPV 8.6 7 - 11 FL Segmented Neutrophils 73 41 - 77 % Lymphocytes 12 (L) 24 - 44 % Monocytes 9 4 - 12 % Eosinophil 3 0 - 5 % Myelocyte 3 % Ovalocyte PRESENT Platelet Estimate SLT DEC Absolute Neutrophil Count 2.63 1.8 - 7.0 K/UL Manual Specimen Performing Laboratory MAIN LAB [address] [place] [address] * POTASSIUM (04/08/2017 6:20 PM) Component Value Ref Range Potassium 5.2 (H) 3.5 - 5.1 MMOL/L Specimen Performing Laboratory Blood MAIN LAB [address] [place] [address] * PHOSPHORUS (04/08/2017 9:35 AM) Component Value Ref Range Phosphorus 4.2 (H) 2.0 - 4.0 MG/DL Specimen Performing Laboratory MAIN LAB [address] [place] [address] * MAGNESIUM (04/08/2017 9:35 AM) Component Value Ref Range Magnesium 2.1 1.6 - 2.6 mg/dL Specimen Performing Laboratory MAIN LAB [address] [place] [address] * CBC AND DIFF (04/08/2017 9:35 AM) Component Value Ref Range White Blood Cells 3.1 (L) 4.5 - 11.0 K/UL RBC 2.49 (L) 4.4 - 5.5 M/UL Hemoglobin 7.5 (L) 13.5 - 16.5 GM/DL Hematocrit 22.6 (L) 40 - 50 % MCV 90.6 80 - 100 FL MCH 30.1 26 - 34 PG MCHC 33.3 32.0 - 36.0 G/DL RDW 14.2 11 - 15 % Platelet Count 119 (L) 150 - 400 K/UL MPV 8.9 7 - 11 FL Neutrophils 71 41 - 77 % Lymphocytes 14 (L) 24 - 44 % Monocytes 9 4 - 12 % Eosinophils 6 (H) 0 - 5 % Basophils 0 0 - 2 % Absolute Neutrophil Count 2.20 1.8 - 7.0 K/UL Absolute Lymph Count 0.40 (L) 1.0 - 4.8 K/UL Absolute Monocyte Count 0.30 0 - 0.80 K/UL Absolute Eosinophil Count 0.20 0 - 0.45 K/UL Absolute Basophil Count 0.00 0 - 0.20 K/UL Specimen Performing Laboratory MAIN LAB [address] [place] [address] * COMPREHENSIVE METABOLIC PANEL (04/08/2017 9:35 AM) Component Value Ref Range Sodium 132 (L) 137 - 147 MMOL/L Potassium 5.3 (H) 3.5 - 5.1 MMOL/L Chloride 94 (L) 98 - 110 MMOL/L Glucose 110 (H) 70 - 100 MG/DL Blood Urea Nitrogen 82 (H) 7 - 25 MG/DL Creatinine 12.99 (H) 0.4 - 1.24 MG/DL Calcium 8.8 8.5 - 10.6 MG/DL Total Protein 7.4 6.0 - 8.0 G/DL Total Bilirubin 0.5 0.3 - 1.2 MG/DL Albumin 3.6 3.5 - 5.0 G/DL Alk Phosphatase 88 25 - 110 U/L AST (SGOT) 18 7 - 40 U/L CO2 22 21 - 30 MMOL/L ALT (SGPT) 15 7 - 56 U/L Anion Gap 16 (H) 3 - 12 eGFR Non 4 (L) >60 mL/min Comment: The eGFR is not validated for use in drug dosing adjustments. Continue to use estimated creatinine clearance per dosing reference text. Please contact the Clinical Pharmacist for questions. eGFR 5 (L) >60 mL/min Comment: The eGFR is not validated for use in drug dosing adjustments. Continue to use estimated creatinine clearance per dosing reference text. Please contact the Clinical Pharmacist for questions. Specimen Performing Laboratory MAIN LAB [address] [place] [address] * PHOSPHORUS (04/07/2017 7:49 AM) Component Value Ref Range Phosphorus 4.9 (H) 2.0 - 4.0 MG/DL Specimen Performing Laboratory MAIN LAB [address] [place], [place] [id number] * MAGNESIUM (04/07/2017 7:49 AM) Component Value Ref Range Magnesium 2.1 1.6 - 2.6 mg/dL Specimen Performing Laboratory MAIN LAB [address] [place], [place] [id number] * COMPREHENSIVE METABOLIC PANEL (04/07/2017 7:49 AM) Component Value Ref Range Sodium 134 (L) 137 - 147 MMOL/L Potassium 4.7 3.5 - 5.1 MMOL/L Chloride 96 (L) 98 - 110 MMOL/L Glucose 116 (H) 70 - 100 MG/DL Blood Urea Nitrogen 66 (H) 7 - 25 MG/DL Creatinine 11.72 (H) 0.4 - 1.24 MG/DL Calcium 8.5 8.5 - 10.6 MG/DL Total Protein 6.7 6.0 - 8.0 G/DL Total Bilirubin 0.4 0.3 - 1.2 MG/DL Albumin 3.4 (L) 3.5 - 5.0 G/DL Alk Phosphatase 86 25 - 110 U/L AST (SGOT) 19 7 - 40 U/L CO2 23 21 - 30 MMOL/L ALT (SGPT) 14 7 - 56 U/L Anion Gap 15 (H) 3 - 12 eGFR Non 5 (L) >60 mL/min Comment: [...] for questions. Specimen Performing Laboratory MAIN LAB [address] [place] [address] * CBC AND DIFF (04/07/2017 7:49 AM) Component Value Ref Range White Blood Cells 2.3 (L) 4.5 - 11.0 K/UL RBC 2.31 (L) 4.4 - 5.5 M/UL Hemoglobin 7.0 (L) 13.5 - 16.5 GM/DL Hematocrit 21.0 (L) 40 - 50 % MCV 91.3 80 - 100 FL MCH 30.3 26 - 34 PG MCHC 33.3 32.0 - 36.0 G/DL RDW 14.2 11 - 15 % Platelet Count 113 (L) 150 - 400 K/UL MPV 8.5 7 - 11 FL Neutrophils 67 41 - 77 % Lymphocytes 15 (L) 24 - 44 % Monocytes 14 (H) 4 - 12 % Eosinophils 4 0 - 5 % Basophils 0 0 - 2 % Absolute Neutrophil Count 1.60 (L) 1.8 - 7.0 K/UL Absolute Lymph Count 0.40 (L) 1.0 - 4.8 K/UL Absolute Monocyte Count 0.30 0 - 0.80 K/UL Absolute Eosinophil Count 0.10 0 - 0.45 K/UL Absolute Basophil Count 0.00 0 - 0.20 K/UL Specimen Performing Laboratory MAIN LAB [address] [place] [address] * PHOSPHORUS (04/06/2017 7:46 AM) Component Value Ref Range Phosphorus 5.1 (H) 2.0 - 4.0 MG/DL Specimen Performing Laboratory MAIN LAB [address] [place] [address] * MAGNESIUM (04/06/2017 7:46 AM) Component Value Ref Range Magnesium 2.2 1.6 - 2.6 mg/dL Specimen Performing Laboratory MAIN LAB [address] [place] [address] * COMPREHENSIVE METABOLIC PANEL (04/06/2017 7:46 AM) Component Value Ref Range Sodium 135 (L) 137 - 147 MMOL/L Potassium 4.4 3.5 - 5.1 MMOL/L Chloride 96 (L) 98 - 110 MMOL/L Glucose 96 70 - 100 MG/DL Blood Urea Nitrogen 53 (H) 7 - 25 MG/DL Creatinine 10.54 (H) 0.4 - 1.24 MG/DL Calcium 9.0 8.5 - 10.6 MG/DL Total Protein 7.0 6.0 - 8.0 G/DL Total Bilirubin 0.5 0.3 - 1.2 MG/DL Albumin 3.6 3.5 - 5.0 G/DL Alk Phosphatase 93 25 - 110 U/L AST (SGOT) 22 7 - 40 U/L CO2 26 21 - 30 MMOL/L ALT (SGPT) 16 7 - 56 U/L Anion Gap 13 (H) 3 - 12 eGFR Non 5 (L) >60 mL/min Comment: [...] for questions. Specimen Performing Laboratory MAIN LAB [address] [place] [address] * CBC AND DIFF (04/06/2017 7:46 AM) Component Value Ref Range White Blood Cells 1.8 (L) 4.5 - 11.0 K/UL RBC 2.34 (L) 4.4 - 5.5 M/UL Hemoglobin 7.1 (L) 13.5 - 16.5 GM/DL Hematocrit 20.6 (L) 40 - 50 % MCV 88.3 80 - 100 FL MCH 30.2 26 - 34 PG MCHC 34.3 32.0 - 36.0 G/DL RDW 14.2 11 - 15 % Platelet Count 115 (L) 150 - 400 K/UL MPV 8.7 7 - 11 FL Segmented Neutrophils 56 41 - 77 % Bands 15 (H) 0 - 10 % Lymphocytes 10 (L) 24 - 44 % Monocytes 11 4 - 12 % Eosinophil 7 (H) 0 - 5 % Myelocyte 1 % ANISO PRESENT POIK PRESENT Ovalocyte PRESENT Platelet Estimate SLT DEC Absolute Neutrophil Count 1.28 (L) 1.8 - 7.0 K/UL Manual Specimen Performing Laboratory MAIN LAB [address] [place] [address] * ECG-SCAN (04/05/2017 6:20 PM) Narrative Ordered [...] developed and its performance characteristics validated by [facility]. It has not been cleared or approved [...] complexity clinical laboratory testing. Test Performed by: [facility] [address] [place] [id number] Specimen Performing Laboratory Blood REFERENCE LAB * PHOSPHORUS (04/05/2017 4:25 AM) Component Value Ref Range Phosphorus 4.5 (H) 2.0 - 4.0 MG/DL Specimen Performing Laboratory MAIN LAB [address] [place] [address] * MAGNESIUM (04/05/2017 4:25 AM) Component Value Ref Range Magnesium 2.0 1.6 - 2.6 mg/dL Specimen Performing Laboratory MAIN LAB [address] [place] [address] * COMPREHENSIVE METABOLIC PANEL (04/05/2017 4:25 AM) Component Value Ref Range Sodium 135 (L) 137 - 147 MMOL/L Potassium 4.2 3.5 - 5.1 MMOL/L Chloride 95 (L) 98 - 110 MMOL/L Glucose 87 70 - 100 MG/DL Blood Urea Nitrogen 37 (H) 7 - 25 MG/DL Creatinine 7.39 (H) 0.4 - 1.24 MG/DL Calcium 9.2 8.5 - 10.6 MG/DL Total Protein 7.3 6.0 - 8.0 G/DL Total Bilirubin 0.6 0.3 - 1.2 MG/DL Albumin 3.7 3.5 - 5.0 G/DL Alk Phosphatase 85 25 - 110 U/L AST (SGOT) 24 7 - 40 U/L CO2 27 21 - 30 MMOL/L ALT (SGPT) 16 7 - 56 U/L Anion Gap 13 (H) 3 - 12 eGFR Non 8 (L) >60 mL/min Comment: [...] Specimen Performing Laboratory [facility]IN [facility] [address] [place] [address] * CBC AND DIFF (04/05/2017 4:25 AM) Component Value Ref Range White Blood Cells 2.0 (L) 4.5 - 11.0 K/UL RBC 2.32 (L) 4.4 - 5.5 M/UL Hemoglobin 7.3 (L) 13.5 - 16.5 GM/DL Hematocrit 20.7 (L) 40 - 50 % MCV 89.3 80 - 100 FL MCH 31.5 26 - 34 PG MCHC 35.3 32.0 - 36.0 G/DL RDW 14.5 11 - 15 % Platelet Count 113 (L) 150 - 400 K/UL MPV 8.8 7 - 11 FL Neutrophils 72 41 - 77 % Lymphocytes 8 (L) 24 - 44 % Monocytes 16 (H) 4 - 12 % Eosinophils 3 0 - 5 % Basophils 1 0 - 2 % Absolute Neutrophil Count 1.40 (L) 1.8 - 7.0 K/UL Absolute Lymph Count 0.20 (L) 1.0 - 4.8 K/UL Absolute Monocyte Count 0.30 0 - 0.80 K/UL Absolute Eosinophil Count 0.10 0 - 0.45 K/UL Absolute Basophil Count 0.00 0 - 0.20 K/UL Specimen Performing Laboratory [facility] [address] [place] [address] * HEMODIALYSIS INPATIENT (04/04/2017 8:07 PM) Narrative Corazon Caba RN 04/04/20178:07 PM 1713 - Hemodialysis initiated using left arm fistula.Plan for a 4 hour treatment with 3-4 liters of fluid. Pt insisting on sitting on the edge of the bed.Will not listen to suggestions that it was a safety concern and not allowed. Insists that he will sit up regardless of whether he is allowed or not.After several minutes pt sat up on the edge and refused to sit back.Behavioral response called. After several minutes with the behavioral response teams presence, able to convince pt to get back into bed. Pt continually taking nasal cannula off, SpO2 90-92%, able to convince patient to put NC on periodically.Pt asking for Tylenol consistently, reminded often that the Tylenol is not available until 1929. 1814 - Discussed with Dr. Reyna pts insistence that he cannot tolerate 4 liters of fluid and only wants 2.5 liters.Pt also unhappy with the [address] Reyna, okay to decrease fluid goal and time if pt is insistent.Pt agreeable to try 3.5 hours with 2.5 liters of fluid removal.Every 5 minutes having to readdress plan with patient and convince him that he needs dialysis. 1929 - Pt insisting to be taken off of treatment.Able to get patient to agree to wait until 2 liters of fluid has been removed.Pt continually asking about time and insisting that the treatment be finished. 1999 - Pt tolerated hemodialysis treatment without complications. Pt completed 2 hours and 20 minutes of treatment.Removed 2 liters of fluid. * HEMODIALYSIS DATE (04/04/2017 8:07 PM) Rose Caba RN 04/04/20178:07 PM 1713 - Hemodialysis initiated using left arm fistula.Plan for a 4 hour treatment with 3-4 liters of fluid. Pt insisting on sitting on the edge of the bed.Will not listen to suggestions that it was a safety concern and not allowed. Insists that he will sit up regardless of whether he is allowed or not.After several minutes pt sat up on the edge and refused to sit back.Behavioral response called. After several minutes with the behavioral response teams presence, able to convince pt to get back into bed. Pt continually taking nasal cannula off, SpO2 90-92%, able to convince patient to put NC on periodically.Pt asking for Tylenol consistently, reminded often that the Tylenol is not available until 1929. 1814 - Discussed with Dr. Reyna pts insistence that he cannot tolerate 4 liters of fluid and only wants 2.5 liters.Pt also unhappy with the [address] Reyna, okay to decrease fluid goal and time if pt is insistent.Pt agreeable to try 3.5 hours with 2.5 liters of fluid removal.Every 5 minutes having to readdress plan with patient and convince him that he needs dialysis. 1929 - Pt insisting to be taken off of treatment.Able to get patient to agree to wait until 2 liters of fluid has been removed.Pt continually asking about time and insisting that the treatment be finished. 1999 - Pt tolerated hemodialysis treatment without complications. Pt completed 2 hours and 20 minutes of treatment.Removed 2 liters of fluid. * TRANSFUSE APHERESIS PLATELETS (04/04/2017 4:39 PM) * TRANSFUSE APHERESIS PLATELETS (04/04/2017 4:39 PM) * OCCULT BLOOD NON COLON CANCER SCREEN (04/04/2017 3:43 PM) Component Value Ref Range Battery Name OCCULT BLOOD SCREEN Specimen Description FECES Special Requests NONE Occult Blood NEGATIVE Report Status FINAL 04/04/2017 Specimen Performing Laboratory Stool - Feces MAIN LAB [address] [place] [address] * TROPONIN-I (04/04/2017 2:43 PM) Component Value Ref Range Troponin-I 0.15 (H) 0.0 - 0.05 NG/ML Specimen Performing Laboratory MAIN LAB [address] [place] [address] * 2-D + DOPPLER ECHOCARDIOGRAM (04/04/2017 2:17 PM) Component Value Ref Range IVS 1.30 0.6 - 1.0 cm LVIDD 5.88 4.2 - 5.9 cm LVIDS 3.49 cm PW 1.28 0.6 - 1.0 cm TDI e' 0.09 m/s Right Ventricular Long 10.47 5.9 - 8.3 cm Diameter Right Ventricular Mid 4.62 1.9 - 3.5 cm Diameter LA size 4.74 3.0 - 4.0 cm LA volume 104.57 18 - 58 mL Right Atrial Area 25.28 <=18 cm2 Right Atrial Major 5.76 <=5.3 cm Dimension and a peak gradient of 14.66 mmHg AV peak velocity 1.91 m/s MV Peak A Abdelrahman 0.82 m/s MV Peak E Abdelrahman PW 1.31 m/s Right Ventricular Basal 4.25 2.5 - 4.1 cm Diameter Right Heart Systolic 2.06 cm Mmode TAPSE Ao root annulus 2.28 1.4 - 2.6 cm Sinus 3.63 2.1 - 3.5 cm STJ 2.88 1.7 - 3.4 cm Ascending aorta 3.29 2.0 - 3.6 cm BSA 2.27 m2 FS 40.65 28 - 44 % EF 69.11 % Left Atrium Index 46.07 10 - 32 E/A ratio 1.60 E/E' ratio 14.56 TV rest pulmonary artery 52 mmHg pressure ECHO EF 60 % Specimen Performing Laboratory OTHER OUTSIDE LAB Narrative Mild concentric LVH is seen. The EF is about 60%. The LA pressures may be elevated. The LA is mildly enlarged. Mild TR is noted. The estimated PA systolic pressure is 45-50 mm Hg. * RETICULOCYTE COUNT (04/04/2017 7:46 AM) Component Value Ref Range Retic, Uncorrected 1.4 0.5 - 2.0 % Retic, Corrected 0.6 % Retic, Absolute 32.5 30 - 94 K/UL Specimen Performing Laboratory MAIN LAB [address] [place] [address] * CBC (04/04/2017 7:46 AM) Component Value Ref Range White Blood Cells 3.5 (L) 4.5 - 11.0 K/UL RBC 2.31 (L) 4.4 - 5.5 M/UL Hemoglobin 7.0 (L) 13.5 - 16.5 GM/DL Hematocrit 20.4 (L) 40 - 50 % MCV 88.6 80 - 100 FL MCH 30.5 26 - 34 PG MCHC 34.4 32.0 - 36.0 G/DL RDW 14.2 11 - 15 % Platelet Count 101 (L) 150 - 400 K/UL MPV 8.6 7 - 11 FL Specimen Performing Laboratory Blood MAIN LAB [address] [place] [address] * TRANSFUSE RBC'S NON-BLEEDING PT (04/04/2017 7:40 AM) Specimen Performing Laboratory Blood * TRANSFUSE RBC'S NON-BLEEDING PT (04/04/2017 7:40 AM) Specimen Performing Laboratory Blood * LDH-LACTATE DEHYDROGENASE (04/04/2017 6:38 AM) Component Value Ref Range Lactate Dehydrogenase 239 (H) 100 - 210 U/L Specimen Performing Laboratory MAIN LAB [address] [place] [address] * TROPONIN-I (04/04/2017 6:38 AM) Component Value Ref Range Troponin-I 0.16 (H) 0.0 - 0.05 NG/ML Specimen Performing Laboratory MAIN LAB [address] [place] [address] * BLOOD BANK SAMPLE HOLD (04/04/2017 3:30 AM) Component Value Ref Range BB Sample hold IN LAB Specimen Performing Laboratory [facility] [address] [place] [address] * HEPARIN INDUCED PLT AB (HIT) (04/04/2017 3:30 AM) Component Value Ref Range Heparin Induced Plt AB POS (A)Comment: [facility] PERFOR[facility] Heparin AB OD 0.976 (H) 0.000 - 0.499 Specimen Performing Laboratory Blood [facility] [address] [place] [address] * BLOOD GASES, PERIPHERAL VENOUS (04/04/2017 3:30 AM) Component Value Ref Range pH-Venous 7.38 7.30 - 7.40 PCO2-Venous 49 36 - 50 MMHG PO2-Venous 129 (H) 33 - 48 MMHG Base Excess-Venous 3.3 MMOL/L O2 Sat-Venous 99.3 (H) 55 - 71 % [id number] 27.4 MMOL/L Specimen Performing Laboratory Blood, venous - Blood MAIN LAB [address] [place] [address] * PREPARE APHERESIS PLATELETS (04/04/2017 2:47 AM) Component Value Ref Range Units Ordered 1 Unit Number [id number] Blood Component Type APHERESIS PLT,LEUKO REDUCED,2ND CONT. Unit Division 0 Status OF Unit TRANSFUSED Transfusion Status OK TO TRANSFUSE Specimen Performing Laboratory Other (Specify) MAIN LAB [address] [place] [address] [phone] * UA REFLEX CULTURE LABEL (04/04/2017 1:20 AM) Component Value Ref Range UA Reflex Culture LAB LABEL Specimen Performing Laboratory Urine MAIN LAB [address] [place] [address] [phone] * URINALYSIS MICROSCOPIC REFLEX TO CULTURE (04/04/2017 1:20 AM) Component Value Ref Range WBCs,UA 0-2 0 - 2 /HPF RBCs,UA 0-2 0 - 3 /HPF Comment,UA Urine submitted for reflex culture if criteria are met:WBC>10, positive nitrite and/or >=1+ leukocyte esterase. If quantity is not sufficient, an addendum will follow. Specimen Performing Laboratory Urine [facility] [address] [place] [address] [phone] * URINALYSIS DIPSTICK REFLEX TO CULTURE (04/04/2017 1:20 AM) Component Value Ref Range Color,UA STRAW Turbidity,UA CLEAR CLEAR-CLEAR Specific [place]-Urine 1.006 1.003 - 1.035 pH,UA 8.0 5.0 - 8.0 Protein,UA 2+ (A) NEG-NEG Glucose,UA 1+ (A) NEG-NEG Ketones,UA NEG NEG-NEG Bilirubin,UA NEG NEG-NEG Blood,UA 1+ (A) NEG-NEG Urobilinogen,UA NORMAL NORM-NORMAL Nitrite,UA NEG NEG-NEG Leukocytes,UA NEG NEG-NEG Urine Ascorbic Acid, UA NEG NEG-NEG Specimen Performing Laboratory Urine [facility] [address] [place] [address] 73564 * PHENCYCLIDINES-URINE RANDOM (04/04/2017 1:20 AM) Component Value Ref Range Phencyclidine (PCP) NEG NEG-NEG Comment: RESULTS WERE OBTAINED BY IMMUNOASSAY AND ARE PRESUMPTIVE ONLY. POSITIVE INDICATES THE PRESENCE OF SUBSTANCE WITH CHARACTERISTICS SIMILAR TO DRUG-DRUG CLASS OR METABOLITE IN CONC. EQUAL TO OR EXCEEDING VALUES LISTED. PHENCYCLIDINE (PCP) 25 NG/ML Specimen Performing Laboratory Urine [facility] [address] [place] [address] 31458 * OPIATES-URINE RANDOM (04/04/2017 1:20 AM) Component Value Ref Range Opiates-Urine NEG NEG-NEG Comment: RESULTS WERE OBTAINED BY IMMUNOASSAY AND ARE PRESUMPTIVE ONLY. POSITIVE INDICATES THE PRESENCE OF SUBSTANCE WITH CHARACTERISTICS SIMILAR TO DRUG-DRUG CLASS OR METABOLITE IN CONC. EQUAL TO OR EXCEEDING VALUES LISTED. OPIATES 200 0 NG/ML Specimen Performing Laboratory Urine [facility] [address] [place] [address] 90835 * COCAINE-URINE RANDOM (04/04/2017 1:20 AM) Component Value Ref Range Cocaine-Urine NEG NEG-NEG Comment: RESULTS WERE OBTAINED BY IMMUNOASSAY AND ARE PRESUMPTIVE ONLY. POSITIVE INDICATES THE PRESENCE OF SUBSTANCE WITH CHARACTERISTICS SIMILAR TO DRUG-DRUG CLASS OR METABOLITE IN CONC. EQUAL TO OR EXCEEDING VALUES LISTED. COCAINE 300 NG/ML Specimen Performing Laboratory Urine [facility] [address] [place] [address] 41611 * CANNABINOIDS-URINE RANDOM (04/04/2017 1:20 AM) Component Value Ref Range THC NEG NEG-NEG Comment: RESULTS WERE OBTAINED BY IMMUNOASSAY AND ARE PRESUMPTIVE ONLY. POSITIVE INDICATES THE PRESENCE OF SUBSTANCE WITH CHARACTERISTICS SIMILAR TO DRUG-DRUG CLASS OR METABOLITE IN CONC. EQUAL TO OR EXCEEDING VALUES LISTED. CANNABINOIDS 50 NG/ML Specimen Performing Laboratory Urine [facility] [address] [place] [address] 65399 * BENZODIAZEPINES-URINE RANDOM (04/04/2017 1:20 AM) Component Value Ref Range Benzodiazepines NEG NEG-NEG Comment: RESULTS WERE OBTAINED BY IMMUNOASSAY AND ARE PRESUMPTIVE ONLY. POSITIVE INDICATES THE PRESENCE OF SUBSTANCE WITH CHARACTERISTICS SIMILAR TO DRUG-DRUG CLASS OR METABOLITE IN CONC. EQUAL TO OR EXCEEDING VALUES LISTED. BENZODIAZEPINES 200 NG/ML Specimen Performing Laboratory Urine [facility] [address] [place] [address] 41304 * BARBITURATES-URINE RANDOM (04/04/2017 1:20 AM) Component Value Ref Range Barbiturates,Urine NEG NEG-NEG Comment: RESULTS WERE OBTAINED BY IMMUNOASSAY AND ARE PRESUMPTIVE ONLY. POSITIVE INDICATES THE PRESENCE OF SUBSTANCE WITH CHARACTERISTICS SIMILAR TO DRUG-DRUG CLASS OR METABOLITE IN CONC. EQUAL TO OR EXCEEDING VALUES LISTED. BARBITURATES 200 NG/ML Specimen Performing Laboratory Urine [facility] [address] [place] [address] 94648 * AMPHETAMINES-URINE RANDOM (04/04/2017 1:20 AM) Component Value Ref Range Amphetamines NEG NEG-NEG Comment: RESULTS WERE OBTAINED BY IMMUNOASSAY AND ARE PRESUMPTIVE ONLY. POSITIVE INDICATES THE PRESENCE OF SUBSTANCE WITH CHARACTERISTICS SIMILAR TO DRUG-DRUG CLASS OR METABOLITE IN CONC. EQUAL TO OR EXCEEDING VALUES LISTED. AMPHETAMINES 1000 NG/ML Specimen Performing Laboratory Urine MAIN LAB [address] [place] [address] 19965 * LEGIONELLA ANTIGEN URINE,RAN (04/04/2017 1:20 AM) Component Value Ref Range Battery Name LEGIONELLA URINE ANTIGEN Specimen Description URINE Special Requests NONE Antigen NEGATIVE Report Status FINAL 04/04/2017 Specimen Performing Laboratory Urine MAIN LAB [address] [place] [address] 35194 * STREPTOCOCCUS PNEUMO AG, URINE (04/04/2017 1:20 AM) Component Value Ref Range Battery Name STREP PNEUMO AG, UR Specimen Description URINE Special Requests NONE Antigen NEGATIVE Report Status FINAL 04/04/2017 Specimen Performing Laboratory Urine MAIN LAB [address] [place] [address] 29317 * GRAM STAIN (04/04/2017 1:01 AM) Component Value Ref Range Battery Name GRAM STAIN Specimen Description SPUTUM Special Requests NONE Gram Stain GREATER THAN 25/LPF NEUTROPHILS LESS THAN 10/LPF SQUAMOUS EPITHELIAL CELLS FEW MIXED BACTERIA Report Status FINAL 04/04/2017 Specimen Performing Laboratory Sputum MAIN LAB [address] [place] [address] 59271 * RVP VIRAL PANEL PCR (04/04/2017 1:01 [...] Specimen Performing Laboratory Nasal Wash MAIN LAB [address] [place] [address] 04937 * CULTURE-RESP,LOWER W/SENSITIVITY (04/04/2017 1:01 AM) Component Value Ref Range Battery Name LOWER RESP CULTURE Specimen Description SPUTUM Special Requests NONE Direct Gram Stain GREATER THAN 25/LPF NEUTROPHILS LESS THAN 10/LPF SQUAMOUS EPITHELIAL CELLS FEW MIXED BACTERIA Culture Moderate growth NORMAL OROPHARYNGEAL EVELIA Report Status FINAL 04/06/2017 Specimen Performing Laboratory Sputum MAIN LAB [address] [place] [address] 24942 * HAPTOGLOBIN (04/04/2017 12:33 AM) Component Value Ref Range Haptoglobin 139 16 - 200 MG/DL Specimen Performing Laboratory MAIN LAB [address] [place] [address] 28602 * PHOSPHORUS (04/04/2017 12:33 AM) Component Value Ref Range Phosphorus 6.1 (H) 2.0 - 4.0 MG/DL Specimen Performing Laboratory MAIN LAB [address] [place] [address] 91053 * MAGNESIUM (04/04/2017 12:33 AM) Component Value Ref Range Magnesium 2.0 1.6 - 2.6 mg/dL Specimen Performing Laboratory MAIN LAB [address] [place] [address] 29982 * COMPREHENSIVE METABOLIC PANEL (04/04/2017 12:33 AM) Component Value Ref Range Sodium 132 (L) 137 - 147 MMOL/L Potassium 4.3 3.5 - 5.1 MMOL/L Chloride 91 (L) 98 - 110 MMOL/L Glucose 121 (H) 70 - 100 MG/DL Blood Urea Nitrogen 50 (H) 7 - 25 MG/DL Creatinine 8.45 (H) 0.4 - 1.24 MG/DL Calcium 9.4 8.5 - 10.6 MG/DL Total Protein 7.1 6.0 - 8.0 G/DL Total Bilirubin 0.5 0.3 - 1.2 MG/DL Albumin 3.7 3.5 - 5.0 G/DL Alk Phosphatase 87 25 - 110 U/L AST (SGOT) 21 7 - 40 U/L CO2 26 21 - 30 MMOL/L ALT (SGPT) 14 7 - 56 U/L Anion Gap 15 (H) 3 - 12 eGFR Non 7 (L) >60 mL/min Comment: [...] for questions. Specimen Performing Laboratory MAIN LAB [address] [place] [address] 02760 * CBC AND DIFF (04/04/2017 12:33 AM) Component Value Ref Range White Blood Cells 4.6 4.5 - 11.0 K/UL RBC 2.11 (L) 4.4 - 5.5 M/UL Hemoglobin 6.6 (L) 13.5 - 16.5 GM/DL Hematocrit 19.0 (L) 40 - 50 % MCV 89.9 80 - 100 FL MCH 31.4 26 - 34 PG MCHC 34.9 32.0 - 36.0 G/DL RDW 14.8 11 - 15 % Platelet Count 97 (L) 150 - 400 K/UL MPV 8.9 7 - 11 FL Neutrophils 90 (H) 41 - 77 % Lymphocytes 2 (L) 24 - 44 % Monocytes 8 4 - 12 % Eosinophils 0 0 - 5 % Basophils 0 0 - 2 % Absolute Neutrophil Count 4.10 1.8 - 7.0 K/UL Absolute Lymph Count 0.10 (L) 1.0 - 4.8 K/UL Absolute Monocyte Count 0.40 0 - 0.80 K/UL Absolute Eosinophil Count 0.00 0 - 0.45 K/UL Absolute Basophil Count 0.00 0 - 0.20 K/UL Specimen Performing Laboratory MAIN LAB [address] [place] [address] * SOLUBLE TRANSFERRIN RECEPTOR (04/04/2017 12:33 AM) Component Value Ref Range Transferrin Receptor 2.2 Comment: Reference range: 1.8 to 4.6 Unit: mg/L ADDITIONAL INFORMATION It is reported that Americans may have slightly higher values. [facility] Specimen Performing Laboratory REFERENCE LAB * SED RATE (04/04/2017 12:33 AM) Component Value Ref Range Sed Rate -ESR 38 (H) 0 - 15 MM/HR Specimen Performing Laboratory [facility] [address] [place] [address] 29450 * C REACTIVE PROTEIN (CRP) (04/04/2017 12:33 AM) Component Value Ref Range C-Reactive Protein 11.01 (H) <1.0 MG/DL Specimen Performing Laboratory [facility] [address] [place] [address] 24970 * FOLATE, SERUM (04/04/2017 12:33 AM) Component Value Ref Range Serum Folate 13.9Comment: NOTE NEW REFERENCE RANGES >3.9 NG/ML Specimen Performing Laboratory Blood MAIN LAB [address] [place] [address] 09400 * IMMATURE PLATELET FRACTION (04/04/2017 12:33 AM) Component Value Ref Range Immature Platelet 4.3Comment: TEST PERFORMED BY [facility] 1.1 - 7.1 % Fraction LAB Specimen Performing Laboratory Blood MAIN LAB [address] [place] [address] 94620 * PERIPHERAL SMEAR (04/04/2017 12:33 AM) Component [...] report. Specimen Performing Laboratory Blood MAIN LAB [address] [place] [address] 67332 * IRON + BINDING CAPACITY + %SAT+ FERRITIN (04/04/2017 12:33 AM) Component Value Ref Range Iron 17 (L) 50 - 185 MCG/DL Iron Binding-TIBC 225 (L) 270 - 380 MCG/DL % Saturation 8 (L) 28 - 42 % Ferritin 1,117 (H) 30 - 300 NG/ML Specimen Performing Laboratory Blood MAIN LAB [address] [place] [address] 48499 * VITAMIN B12 (04/04/2017 12:33 AM) Component Value Ref Range Vitamin B12 568 180 - 914 PG/ML Specimen Performing Laboratory Blood MAIN LAB [address] [place] [address] 49143 * TYPE & CROSSMATCH (04/04/2017 12:33 AM) Component Value Ref Range Units Ordered 1 Crossmatch Expires 04/07/2017 Record Check FOUND ABO/RH(D) A POS Antibody Screen NEG Electronic Crossmatch YES Unit Number [id number] Blood Component Type RBC,ADSOL,LEUKO REDUCED Unit Division 0 Status OF Unit TRANSFUSED Transfusion Status OK TO TRANSFUSE Crossmatch Result COMPATIBLE,ELECTRONIC Specimen Performing Laboratory Blood MAIN LAB [address] [place] [address] 98515 * VANCOMYCIN RANDOM (04/04/2017 12:33 AM) Component Value Ref Range Vancomycin Random <2.0 MCG/ML Specimen Performing Laboratory Blood MAIN LAB [address] [place] [address] 35779 * TROPONIN-I (04/04/2017 12:33 AM) Component Value Ref Range Troponin-I 0.17 (H) 0.0 - 0.05 NG/ML Specimen Performing Laboratory MAIN LAB [address] [place] [address] 26950 * PROCALCITONIN (04/04/2017 12:33 AM) Component Value Ref Range Procalcitonin 2.37 (H) <0.10 NG/ML Specimen Performing Laboratory Blood MAIN LAB [address] [place] [address] 64685 * CULTURE-BLOOD W/SENSITIVITY (04/04/2017 12:33 AM) Component Value Ref Range Battery Name BLOOD CULTURE Specimen Description BLOOD RIGHT WRIST Special Requests NONE Culture NO GROWTH 5 DAYS Report Status FINAL 04/10/2017 Specimen Performing Laboratory Blood MAIN LAB [address] [place] [address] 02865 * TSH WITH FREE T4 REFLEX (04/04/2017 12:33 AM) Component Value Ref Range TSH 3.562 0.35 - 5.00 MCU/ML Specimen Performing Laboratory Blood MAIN LAB [address] [place] [address] 54125 * BNP (B-TYPE NATRIURETIC PEPTI) (04/04/2017 12:33 AM) Component Value Ref Range B Type Natriuretic 2,418.0 (H) 0 - 100 PG/ML Peptide Specimen Performing Laboratory MAIN LAB [address] [place] [address] 29570 * PTT (APTT) (04/04/2017 12:33 AM) Component Value Ref Range APTT 32.2Comment: NOTE NEW REFERENCE RANGES 21.0 - 39.0 SEC Specimen Performing Laboratory MAIN LAB [address] [place] [address] 49163 * PROTIME INR (PT) (04/04/2017 12:33 AM) Component Value Ref Range INR 1.2 0.8 - 1.2 Specimen Performing Laboratory MAIN LAB [address] [place] [address] * CULTURE-BLOOD W/SENSITIVITY (04/04/2017 12:23 AM) Component Value Ref Range Battery Name BLOOD CULTURE Specimen Description BLOOD RIGHT HAND Special Requests NONE Culture NO GROWTH 5 DAYS Report Status FINAL 04/10/2017 Specimen Performing Laboratory Blood [facility]U MAIN LAB [address] [place] [address] * CT ABD/PELV WO CONTRAST (04/03/2017 11:40 PM) Specimen Performing [...] Interface, Radiant Results - 04/04/2017 12:23 AM SEC[employer]ARY H[employer] CT Chest, Abdomen and Pelvis Clinical Indication: [...] CT HEAD WO CONTRAST (04/03/2017 11:40 PM) Specimen Performing [...] Interface, Radiant Results - 04/04/2017 12:09 AM SECONDARY HISTORY TEACHER EXAM: CT HEAD HISTORY: Recent ruptured cerebral [...] Baker M.D. on 04/03/2017 11:40 PM. * CT CHEST WO CONTRAST (04/03/2017 [...] Interface, Radiant Results - 04/04/2017 12:23 AM SEC[employer] H[employer] TE[employer] CT Chest, Abdomen and Pelvis Clinical Indication: [...] Imani Baker M.D. on 04/03/2017 11:49 PM. in this encounter Visit Diagnoses Diagnosis Chronic hypoxemic respiratory failure (HCC) Chronic respiratory failure ESRD (end stage renal disease) on dialysis (HCC) End stage renal disease Hyperkalemia Hyperpotassemia Acquired skull defect Other specified acquired deformity of head Influenza B Influenza with other respiratory manifestations Normocytic anemia Anemia, unspecified Pancytopenia (HCC) Other pancytopenia Essential hypertension Unspecified essential hypertension Pneumonia Pneumonia, organism unspecified Subarachnoid bleed (HCC) Subarachnoid hemorrhage Vascular dementia without behavioral disturbance Vascular dementia, uncomplicated Acute blood loss as cause of postoperative anemia Renovascular hypertension Secondary renovascular hypertension, unspecified Rhinovirus infection Rhinovirus infection in conditions classified elsewhere and of unspecified site COPD with hypoxia (HCC) Oropharyngeal dysphagia Dysphagia, oropharyngeal phase Troponin level elevated Other abnormal blood chemistry TBI (traumatic brain injury) (HCC) Intracranial injury of other and unspecified nature, without mention of open intracranial wound, unspecified state of consciousness Admitting Diagnoses Diagnosis HCAP Pneumonia Administered Medications Medication Order MAR Action Action Date Dose Rate Site acetaminophen (TYLENOL) tablet 650 mg Given 04/09/2017 650 mg 650 mg, Oral, EVERY 4 HOURS PRN, 16:33 SEC[employer] H[employer]ORY [employer] Starting Sat04/03/17 at 2227, Until Sat04/12/17 at 1523, Pain non-opioid: may be used alone or in combination with opioid analgesia, TOTAL ACETAMINOPHEN DOSE NOT TO EXCEED 4GM DAILY Given 04/10/2017 650 mg 21:04 SEC[employer] H[employer]ORY [employer]ER Given 04/12/2017 650 mg 09:46 SECONDARY HISTORY TEACHER ACETAMINOPHEN 325 MG PO TAB (Cabinet Override) NOW, 1 dose, Sat04/09/17 at 1630, Created by cabinet override albuterol 0.5% (PROVENTIL; VENTOLIN) Given 04/05/2017 2.5 mg nebulizer solution 2.5 mg 21:54 SEC[employer] HISTORY TE[employer]ER 2.5 mg, Inhalation, RT TWICE DAILY AND PRN, First dose on Becky 04/04/17 at 0600, Until Discontinued, ADMINISTERED BY RT Given 04/06/2017 2.5 mg 09:18 SEC[employer]ARY HISTORY [employer]ER Given 04/06/2017 2.5 mg 18:33 SECONDARY HISTORY TE[employer]ER amLODIPine (NORVASC) tablet 10 mg Given 04/10/2017 10 mg 10 mg, Oral, DAILY, First dose on Becky 09:58 SEC[employer]ARY HISTORY TE[employer]ER 04/04/17 at 0900, Until Discontinued, NURSING: Please educate patient and document: Do not give with grapefruit juice. Given 04/11/2017 10 mg 11:21 SEC[employer]ARY HISTORY TE[employer]ER Given 04/12/2017 10 mg 09:47 SECONDARY HISTORY TE[employer]ER atorvastatin (LIPITOR) tablet 10 mg Given 04/09/2017 10 mg 10 mg, Oral, AT BEDTIME DAILY, First 20:58 SEC[employer]ARY HISTORY [employer]ER dose on Becky 04/04/17 at 2100, Until Discontinued Given 04/10/2017 10 mg 21:05 SECONDARY HISTORY TE[employer]ER Given 04/11/2017 10 mg 20:03 SEC[employer]ARY H[employer]ORY TE[employer]ER calcium acetate (PHOSLO) capsule 1,334 Given 04/11/2017 1,334 mg mg 11:21 SEC[employer]ARY HISTORY TE[employer]ER 1,334 mg, Oral, THREE TIMES DAILY WITH MEALS, First dose on Becky 04/04/17 at 0800, Until Discontinued, Each cap delivers 169mg elemental Calcium Given 04/11/2017 1,334 mg 17:23 SECONDARY HISTORY TE[employer]ER Given 04/12/2017 1,334 mg 09:47 SECONDARY HISTORY TEACHER cloNIDine (CATAPRESS) tablet 0.1 mg Given 04/07/2017 0.1 mg 0.1 mg, Oral, TWICE DAILY, First dose on 09:04 SEC[employer]ARY HISTORY TE[employer]ER 04/05/17 at 0945, Until Discontinued, Hold for heart rate < 50 bpm, systolic BP < 90 or diastolic BP < 50 Given 04/07/2017 0.1 mg 20:40 SEC[employer]ARY H[employer]ORY [employer]ER Given 04/08/2017 0.1 mg 09:37 SECONDARY HISTORY TE[employer]ER cloNIDine (CATAPRESS) tablet 0.1 mg Given 04/11/2017 0.1 mg 0.1 mg, Oral, THREE TIMES DAILY, First 11:22 SEC[employer]ARY HISTORY TE[employer]ER dose on Sat04/08/17 at 2100, Until Discontinued, Hold for heart rate < 50 bpm, systolic BP < 90 or diastolic BP < 50 Given 04/11/2017 0.1 mg 14:57 SEC[employer]ARY [employer]ORY TE[employer]ER Given 04/11/2017 0.1 mg 20:03 SECONDARY HISTORY TE[employer]ER cloNIDine (CATAPRESS) tablet 0.2 mg Given 04/11/2017 0.1 mg 0.2 mg, Oral, THREE TIMES DAILY, First 22:46 SEC[employer]ARY H[employer]ORY TE[employer]ER dose on Becky 04/11/17 at 2100, Until Discontinued, Hold for heart rate < 50 bpm, systolic BP < 90 or diastolic BP < 50 Given 04/12/2017 0.2 mg 09:47 SEC[employer]ARY HISTORY TE[employer]ER doxazosin (CARDURA) tablet 8 mg Given 04/09/2017 8 mg 8 mg, Oral, AT BEDTIME DAILY, First dose 20:58 SEC[employer]ARY HISTORY TE[employer]ER on Becky 04/04/17 at 2100, Until Discontinued Given 04/10/2017 8 mg 21:04 SECONDARY HISTORY TE[employer]ER Given 04/11/2017 8 mg 20:03 SECONDARY HISTORY TEACHER doxycycline (VIBRAMYCIN) tablet 100 mg Given 04/10/2017 100 mg 100 mg, Oral, TWICE DAILY, First dose on 21:05 SECONDARY HISTORY TEACHER Becky 04/04/17 at 1100, Until Discontinued, NURSING: Please educate patient and document: Give 1 hour before or 2 hours after meals. If patient is receiving tube feedings, hold tube feedings 1 hour before and 2 hours after dose. Do not give within 2 hours of antacids, magnesium, calcium, iron, zinc, or vitamins containing these minerals. Given 04/11/2017 100 mg 11:21 SEC[employer]ARY HISTORY TE[employer]ER Given 04/11/2017 100 mg 20:02 SECONDARY HISTORY TEACHER epoetin carine (PROCRIT) injection 20,000 Given 04/05/2017 20,000 Units Units 21:40 SEC[employer]ARY HISTORY TEACHER 20,000 Units, Intravenous, THREE TIMES WEEKLY (Once per day on Sat), First dose on Sat04/05/17 at 2100, Until Discontinued Given 04/08/2017 20,000 Units 21:50 SEC[employer]ARY HISTORY TE[employer]ER Given 04/10/2017 20,000 Units 21:08 SEC[employer]ARY HISTORY TE[employer]ER furosemide (LASIX) injection 40 mg Given 04/04/2017 40 mg 40 mg, Intravenous, ONCE, 1 dose, Becky 03:15 SECONDARY HISTORY TE[employer]ER 04/04/17 at 0300, PROTECT FROM LIGHT furosemide (LASIX) tablet 40 mg Given 04/07/2017 40 mg 40 mg, Oral, TWICE DAILY, First dose on 17:24 SECONDARY HISTORY TE[employer]ER 04/06/17 at 1245, Until Discontinued Given 04/08/2017 40 mg 09:37 SECONDARY HISTORY TEACHER Given 04/08/2017 40 mg 16:52 SECONDARY HISTORY TEACHER furosemide (LASIX) tablet 60 mg Given 04/10/2017 60 mg 60 mg, Oral, TWICE DAILY, First dose on 18:20 SECONDARY HISTORY TEACHER 04/09/17 at 0900, Until Discontinued Given 04/11/2017 60 mg 11:21 SECONDARY HISTORY TEACHER Given 04/11/2017 60 mg 17:22 SECONDARY HISTORY TE[employer]ER furosemide (LASIX) tablet 80 mg Given 04/12/2017 80 mg 80 mg, Oral, TWICE DAILY, First dose on 09:47 SECONDARY HISTORY TEACHER Sat04/12/17 at 0900, Until Discontinued hydrALAZINE (APRESOLINE) injection 10 mg Given 04/09/2017 10 mg 10 mg, Intravenous, EVERY 4 HOURS PRN, 18:05 SEC[employer]ARY HISTORY TE[employer]ER Starting Sat04/03/17 at 2255, Until Sat04/11/17 at 1300, Systolic Blood Pressure..., Diastolic Blood Pressure..., >175 or DBP >105 Given 04/10/2017 10 mg 18:20 SEC[employer]ARY HISTORY TE[employer]ER Given 04/11/2017 10 mg 12:57 SECONDARY HISTORY TEACHER hydrALAZINE (APRESOLINE) injection 20 mg Given 04/11/2017 20 mg 20 mg, Intravenous, EVERY 4 HOURS PRN, 13:42 SECONDARY HISTORY TEACHER Starting Sat04/11/17 at 1300, Until Sat04/12/17 at 1523, Systolic Blood Pressure..., Diastolic Blood Pressure..., >175 or DBP >105 Given 04/11/2017 20 mg 17:27 SECONDARY HISTORY TE[employer]ER hydrALAZINE (APRESOLINE) tablet 50 mg Given 04/11/2017 50 mg 50 mg, Oral, THREE TIMES DAILY, First 14:57 SECONDARY HISTORY TE[employer]ER dose on Sat04/11/17 at 1130, Until Discontinued Given 04/11/2017 50 mg 21:30 SECONDARY HISTORY TEACHER Given 04/12/2017 50 mg 11:06 SECONDARY HISTORY TEACHER HYDRALAZINE 20 MG/ML IJ SOLN (Cabinet Override) NOW, 1 dose, Sat04/09/17 at 1815, Created by ginainet override ipratropium bromide (ATROVENT) 0.02 % Given 04/05/2017 0.5 mg nebulizer solution 0.5 mg 21:54 SECONDARY HISTORY TEACHER 0.5 mg, Inhalation, RT TWICE DAILY AND PRN, First dose on Sat04/04/17 at 0600, Until Discontinued, ADMINISTERED BY RT Given 04/06/2017 0.5 mg 09:18 SECONDARY HISTORY TEACHER Given 04/06/2017 0.5 mg 18:33 SECONDARY HISTORY TEACHER iron sucrose (VENOFER) 300 mg in sodium Given - New 04/04/2017 300 mg 77 mL/hr chloride 0.9% (NS) IVPB Bag 21:56 SECONDARY HISTORY TEACHER 300 mg, Intravenous, 115 mL, Administer over 90 Minutes, DAILY, 3 doses, First dose on Becky 04/04/17 at 1700, Last dose on Sat04/06/17 at 0900 Given - New Bag 04/05/2017 300 mg 77 mL/hr 09:49 SECONDARY HISTORY TEACHER Given - New Bag 04/06/2017 300 mg 77 mL/hr 11:01 SECONDARY HISTORY TE[employer]ER isosorbide mononitrate SR (IMDUR) tablet Given 04/11/2017 60 mg 60 mg 20:02 SECONDARY HISTORY TEACHER 60 mg, Oral, AT BEDTIME DAILY, First dose on Becky 04/11/17 at 2100, Until Discontinued, DO NOT Crush tablets (May be cut in half) levETIRAcetam (KEPPRA) tablet 1,500 mg Given 04/09/2017 1,500 mg 1,500 mg, Oral, DAILY, First dose on Becky 13:00 SECONDARY HISTORY TE[employer]ER 04/04/17 at 0900, Until Discontinued Given 04/10/2017 1,500 mg 15:20 SECONDARY HISTORY TEACHER Given 04/11/2017 1,500 mg 14:59 SECONDARY HISTORY TEACHER lidocaine 2% (20 mg/mL) injection 50 mL Given 04/05/2017 50 mL 50 mL, Injection, ONCE, 1 dose, Sat 17:00 SECONDARY HISTORY TEACHER 04/05/17 at 1530 lidocaine/prilocaine (EMLA) topical Given 04/05/2017 cream 17:00 SECONDARY HISTORY TEACHER Topical, ONCE, 1 dose, Sat04/05/17 at 1545, Apply to area for injection LORazepam (ATIVAN) tablet 1 mg Given 04/10/2017 1 mg 1 mg, Oral, EVERY 6 HOURS PRN, Starting 03:04 SECONDARY HISTORY TEACHER Sat04/09/17 at 1415, Until Sat04/12/17 at 1523, Anxiety PO Given 04/11/2017 1 mg 13:42 SECONDARY HISTORY TEACHER Given 04/11/2017 1 mg 20:02 SECONDARY HISTORY TEACHER losartan (COZAAR) tablet 100 mg Given 04/06/2017 100 mg 100 mg, Oral, DAILY, First dose on Becky 11:05 SECONDARY HISTORY TEACHER 04/04/17 at 0900, Until Discontinued Given 04/07/2017 100 mg 09:04 SECONDARY HISTORY TEACHER Given 04/08/2017 100 mg 09:36 SECONDARY HISTORY TEACHER losartan (COZAAR) tablet 100 mg Given 04/10/2017 100 mg 100 mg, Oral, AT BEDTIME DAILY, First 22:52 SECONDARY HISTORY TEACHER dose on Sat04/10/17 at 2230, Until Discontinued Given 04/11/2017 100 mg 20:02 SECONDARY HISTORY TEACHER melatonin tablet 3 mg Given 04/04/2017 3 mg 3 mg, Oral, AT BEDTIME PRN, Starting Becky 01:25 SECONDARY HISTORY TEACHER 04/04/17 at 0004, Until Sat04/04/17 at 0218, Insomnia melatonin tablet 3 mg Given 04/09/2017 3 mg 3 mg, Oral, AT BEDTIME DAILY, First dose 20:59 SECONDARY HISTORY TEACHER on Sat04/04/17 at 2100, Until Discontinued Given 04/10/2017 3 mg 21:05 SECONDARY HISTORY TEACHER Given 04/11/2017 3 mg 20:02 SECONDARY HISTORY TEACHER metoprolol XL (TOPROL XL) tablet 100 mg Given 04/11/2017 100 mg 100 mg, Oral, TWICE DAILY, First dose on 11:22 SECONDARY HISTORY TEACHER [facility] 04/04/17 at 0900, Until Discontinued, Hold for heart rate < 55 bpm or systolic BP < 95 tablets may be cut in half, DO NOT CRUSH or CHEW Given 04/11/2017 100 mg 20:02 SECONDARY HISTORY TE[employer]ER Given 04/12/2017 100 mg 09:47 SECONDARY HISTORY TEACHER nicotine (NICODERM CQ STEP 3) 7 mg/day Patch 04/09/2017 1 patch Shoulder, patch 1 patch Applied 09:01 SECONDARY HISTORY TEACHER Left 1 patch, Transdermal, Administer over 24 Hours, DAILY, First dose on Sat04/05/17 at 1415, Until Discontinued Patch Applied 04/10/2017 1 patch Shoulder, 10:00 SECONDARY HISTORY TE[employer]ER Right Patch Applied 04/12/2017 1 patch Arm, Left 09:47 SECONDARY HISTORY TEACHER nicotine polacrilex (NICORETTE) gum 2 mg Given 04/09/2017 2 mg 2 mg, Buccal, EVERY 1 HOUR PRN, 04:19 SECONDARY HISTORY TEACHER Starting Sat04/05/17 at 1308, Until Sat04/12/17 at 1523, Cravings Given 04/09/2017 2 mg 07:43 SECONDARY HISTORY TEACHER Given 04/10/2017 2 mg 21:05 SECONDARY HISTORY TEACHER oseltamivir (TAMIFLU) capsule 30 mg Given 04/04/2017 30 mg 30 mg, Oral, EVERY 48 HOURS, 2 doses, 21:48 SECONDARY HISTORY TEACHER First dose on Becky 04/04/17 at 1600, Last dose on Sat04/06/17 at 1600, After hemodialysis Given 04/06/2017 30 mg 20:37 SECONDARY HISTORY TEACHER oseltamivir (TAMIFLU) oral suspension 30 Given 04/04/2017 30 mg mg 08:18 SECONDARY HISTORY TEACHER 30 mg, Oral, ONCE, 1 dose, Becky 04/04/17 at 0245, Shake GENTLY before use. pantoprazole (PROTONIX) injection 40 mg Given 04/11/2017 40 mg 40 mg, Intravenous, TWICE DAILY, First 11:22 SECONDARY HISTORY TEACHER dose on Sat04/04/17 at 0000, Until Discontinued Given 04/11/2017 40 mg 20:10 SECONDARY HISTORY TEACHER Given 04/12/2017 40 mg 09:50 SECONDARY HISTORY TEACHER piperacillin/tazobactam (ZOSYN) 2.25 Given - 04/04/2017 2.25 g 100 mL/hr g/50 mL iso-osmotic IVPB Bag 01:23 SECONDARY HISTORY TEACHER 2.25 g, Intravenous, at 100 mL/hr, EVERY 8 HOURS, First dose on Sat04/03/17 at 2345, Until Discontinued senna/docusate (SENOKOT-S) tablet 2 Given 04/10/2017 2 tablets tablet 09:58 SECONDARY HISTORY TEACHER 2 tablet, Oral, TWICE DAILY, First dose on Sat04/04/17 at 0900, Until Discontinued, Hold for loose stools Given 04/10/2017 2 tablets 21:04 SECONDARY HISTORY TEACHER Given 04/11/2017 2 tablets 11:20 SECONDARY HISTORY TEACHER sodium chloride (SEA MIST) 0.65 % nasal Given 04/09/2017 2 sprays spray 1-2 spray 15:08 SECONDARY HISTORY TEACHER 1-2 spray, Each Nostril, THREE TIMES DAILY, First dose on Sat04/04/17 at 0900, Until Discontinued Given 04/10/2017 2 sprays 10:05 SECONDARY HISTORY TEACHER Given 04/10/2017 1 spray 15:21 SECONDARY HISTORY TEACHER sodium chloride 0.9 % infusion Given - 04/06/2017 1,000 mL 1,000 mL, 1,000 mL, Intravenous, PRN IN Bag 12:00 SECONDARY HISTORY TEACHER IP DIALYSIS, Starting 04/06/17 at 0352, Until Sat04/08/17 at 0351, for dialysis, Use to flush dialysis circuit during anticoagulation. Infuse 100-200 mL at 30-60 minute intervals, clamping arterial tubing during infusion. sodium chloride 0.9 % infusion Given - 04/11/2017 300 mL 1,000 mL, 300 mL, Intravenous, PRN IN IP Bag 07:45 SECONDARY HISTORY TEACHER DIALYSIS, 2 doses, Starting Sat04/11/17 at 0519, Until Sat04/12/17 at 1523, Other..., Prime Rinse, For Prime/Rinseback
--- OUTSIDE RECORDS SUMMARY | 2017-05-07 16:24 | XMS REPORT | Encounter Summary ---
Author Author [facility] Organization [facility] Address Unknown Phone Unavailable Care Team Providers Care Email Marketing Assistant Name Role Phone No Pcp, Na PCP Unavailable Encounter Details Date Type Department Care Team Description 04/11/[address] [facility] [address] [place], [place] [id number] Social History Tobacco Use Types Packs/Day Years Used Date Current Every Day Smoker 1 Sex Assigned at Date Recorded Not on file as of this encounter Functional Status Functional Status Response Date of Assessment Does the patient have a hearing impairment: No 04/04/2017 Does the patient have a visual impairment: No 03/26/2017 Does the patient have impaired ambulation: Yes 03/26/2017 Does the patient have an activity of daily living Yes 03/26/2017 (ADL) impairment: Cognitive Status Response Date of Assessment Does the patient have a cognitive impairment: Yes 03/26/2017 as of this encounter Plan of Treatment Date Type Specialty Care Team Description 05/03/2017 Anesthesia Hannah Acevedo, DO Event [address] [place] [address] [phone] 05/17/2017 Surgery Edgar Bee MD CRANIOPLASTY FOR RIGHT [address] [place], [place] [address] RETRIEVAL [place] [address] FROM RIGHT ABDOMEN [phone] 05/17/2017 Procedure Pass 05/17/2017 Hospital Edgar Bee MD Brain aneurysm Encounter [address] [place] [address] [phone] as of this encounter Visit Diagnoses Not on filein this encounter
--- OUTSIDE RECORDS SUMMARY | 2017-05-07 16:25 | XMS REPORT | Encounter Summary ---
Author Author [facility] Organization [facility] Address Unknown Phone Unavailable Care Team Providers Care Gravel Wheeler Name Role Phone No Pcp, Na PCP Unavailable Reason for Visit * Reason Comments Follow-up Phone Call Encounter Details Date Type Department Care Team Description 03/28/2017 [facility] MD Follow- up Phone Call Physicians - Neurosurgery [address] [place] [address] OFFICE BLDG [phone] [place] [address] Social History Tobacco Use Types [...] impairment: Yes 03/26/2017 as of this encounter Miscellaneous Notes * Telephone Encounter - Xin Davis RN - 03/28/2017 11:50 AM NIGHT ASSISTANT Spoke with patients nurse at his [facility] facility as a follow up to his recent discharge. Nurse states that patients helmet is too snug in between dialysis days and that there is currently one on the way to help with that. Otherwise, nurse states that patient is doing well and that they have no questions or concerns. CNC contact given to nurse in case needs or questions arise. Also requested that this CNC be contacted when patients discharge from their facility is pending so that appropriate follow up can be made at the NS clinic. in this encounter Plan of Treatment Date Type Specialty Care Team Description 05/03/2017 Anesthesia Hannah Acevedo DO Event [address] [place] [address] [phone] 05/17/2017 Surgery Edgar Bee MD CRANIOPLASTY FOR RIGHT [address] [place] [address] [place] [address] FROM RIGHT ABDOMEN [phone] 05/17/2017 Procedure Pass 05/17/2017 Hospital Edgar Bee MD Brain aneurysm Encounter [address] [place] [address] as of this encounter Visit Diagnoses Not on filein this encounter
--- OUTSIDE RECORDS SUMMARY | 2017-05-07 16:25 | XMS REPORT | Encounter Summary ---
Author Author [facility] Organization [facility] Address Unknown Phone Unavailable Care Team Providers Care Prenatal Teacher Name Role Phone No Pcp, Na PCP Unavailable Encounter Details Date Type Department Care Team Description 04/03/2017 Procedure Pass [facility] [address] [place] [address] Social History Tobacco Use Types Packs/Day Years [...] DO Event [address] [place] [address] [phone] 05/17/2017 Surgery Edgar Bee MD CRANIOPLASTY FOR RIGHT [address] [place] [address] [place] [address] FROM RIGHT ABDOMEN [phone] 05/17/2017 Procedure Pass 05/17/2017 Hospital Edgar Bee MD Brain aneurysm Encounter [address] [place] [address] [phone] as of this encounter Visit Diagnoses Not on filein this encounter
--- OUTSIDE RECORDS SUMMARY | 2017-05-07 16:25 | XMS REPORT | Encounter Summary ---
Author Author [facility] Organization [facility] Address Unknown Phone Unavailable Care Team Providers Care Passenger Relations Representative Name Role Phone No Pcp, Na PCP Unavailable Encounter Details Date Type Department Care Team Description 04/03/2017 Procedure Pass [facility] [address] [place] [address] Social History Tobacco Use Types Packs/Day Years [...] DO Event [address] [place] [address] [phone] 05/17/2017 Surgery Edgar Bee MD CRANIOPLASTY FOR RIGHT [address] [place] [address] [place] [address] FROM RIGHT ABDOMEN [phone] 05/17/2017 Procedure Pass 05/17/2017 Hospital Edgar Bee MD Brain aneurysm Encounter [address] [place] [address] [phone] as of this encounter Visit Diagnoses Not on filein this encounter
--- OUTSIDE RECORDS SUMMARY | 2017-05-07 16:25 | XMS REPORT | Encounter Summary ---
Author Author [facility] Organization [facility] Address Unknown Phone Unavailable Care Team Providers Care Air Box Tester Name Role Phone No Pcp, Na PCP Unavailable Encounter Details Date Type Department Care Team Description 04/03/2017 Procedure Pass [facility]8 [address] [place] [address] Social History Tobacco Use Types Packs/Day Years [...] DO Event [address] [place] [address] [phone] 05/17/2017 Surgery Edgar Bee MD CRANIOPLASTY FOR RIGHT [address] [place] [address] [place] [address] FROM RIGHT ABDOMEN [phone] 05/17/2017 Procedure Pass 05/17/2017 Hospital Edgar Bee MD Brain aneurysm Encounter [address] [place] [address] [phone] as of this encounter Visit Diagnoses Not on filein this encounter
--- OUTSIDE RECORDS SUMMARY | 2017-05-07 16:29 | XMS REPORT | Encounter Summary ---
Author Author [facility] Organization [facility] Address Unknown Phone Unavailable Care Team Providers Care Production Recorder Name Role Phone No Pcp, Na PCP Unavailable Encounter Details Date Type Department Care Team Description 03/13/2017 Procedure Pass [facility]7 [address] [place] [address] Social History Tobacco Use Types Packs/Day Years Used Date Current Every Day Smoker 1 Sex Assigned at Date Recorded Not on file as of this encounter Plan of Treatment Date Type Specialty Care Team Description 05/03/2017 Anesthesia Hannah Acevedo, DO Event [address] [place] [address] [phone] 05/17/2017 Surgery Edgar Bee MD CRANIOPLASTY FOR RIGHT [address] [place] [address] [place] [address] FROM RIGHT ABDOMEN [phone] 05/17/2017 Procedure Pass 05/17/2017 Hospital Edgar Bee MD Brain aneurysm Encounter [address] [place] [address] [phone] as of this encounter Visit Diagnoses Not on filein this encounter
--- OUTSIDE RECORDS SUMMARY | 2017-05-07 16:29 | XMS REPORT | Encounter Summary ---
Author Author [facility] Organization [facility] Address Unknown Phone Unavailable Care Team Providers Care Photographer Portrait Name Role Phone No Pcp, Na PCP Unavailable Encounter Details Date Type Department Care Team Description 03/13/2017 Procedure Pass [facility]7 [address] [place] [address] Social History Tobacco Use Types Packs/Day Years Used Date Current Every Day Smoker 1 Sex Assigned at Date Recorded Not on file as of this encounter Plan of Treatment Date Type Specialty Care Team Description 05/03/2017 Anesthesia Hannah Acevedo, DO Event [address] [place] [address] [phone] 05/17/2017 Surgery Edgar Bee MD CRANIOPLASTY FOR RIGHT [address] [place] [address] [place] [address] FROM RIGHT ABDOMEN [phone] 05/17/2017 Procedure Pass 05/17/2017 Hospital Edgar Bee MD Brain aneurysm Encounter [address] [place] [address] [phone] as of this encounter Visit Diagnoses Not on filein this encounter
--- OUTSIDE RECORDS SUMMARY | 2017-05-07 16:29 | XMS REPORT | Encounter Summary ---
Author Author [facility] Organization [facility] Address Unknown Phone Unavailable Care Team Providers Care In House Cra Name Role Phone No Pcp, Na PCP Unavailable Encounter Details Date Type Department Care Team Description 03/25/2017 Anesthesia [place] Operating Room Tania Britt, MECHANICAL ORDNANCE ASSEMBLER [address] [facility] [address] [place] [address] [place] [address] [phone] Anesthesia Record Procedure Name Responsible Anesthesia Start Time Anesthesia Stop Time Anesthesiologist RIGHT FRONTAL CRANIOPLASTY (Right ) No events on file. Meds * No agents on file. * No blood administrations on file. Type Details Placement Removal AV 03/09/17; 1530; L; Arm, Lower 03/09/17 1530 by Leslye Shunt/Jasmeet Park (Bertha)TENZIN magalis Wounds 03/10/17; 1822; Right; Head; Surgical 03/10/17 1822 by Lou (NOT for Incision; sutures, xeroform, telfa, Dawson-Solange, RN Pressure andria Injuries) Wounds 03/10/17; 2309; Abdomen; Surgical 03/10/17 2309 by Lou (NOT for Incision; sutures, telfa, tegaderm Dawson-Solange, RN Pressure Injuries) Wounds 03/17/17; 0800; Right; Flank; [...] Notes * Anesthesia Preprocedure Evaluation - Tania BrittMARIETTA - 03/24/2017 3:11 PM FILING CLERK Formatting of this note may be different [...] general in this encounter Plan of Treatment Date Type Specialty Care Team Description 05/03/2017 Anesthesia Hannah Acevedo, DO Event [address] [place] [address] [phone] 05/17/2017 Surgery Edgar Bee MD CRANIOPLASTY FOR RIGHT [address] [place] [address] [place] [address] FROM RIGHT ABDOMEN [phone] 05/17/2017 Procedure Pass 05/17/2017 Hospital Edgar Bee MD Brain aneurysm Encounter [address] [place] [address] as of this encounter Visit Diagnoses Not on filein this encounter
--- OUTSIDE RECORDS SUMMARY | 2017-05-07 16:29 | XMS REPORT | Encounter Summary ---
Author Author [facility] Organization [facility] Address Unknown Phone Unavailable Care Team Providers Care Clinical Documentation Manager Name Role Phone No Pcp, Na PCP Unavailable Reason for Visit * Auth/Cert Status Reason Specialty Diagnoses / Referred By Referred To Procedures Contact Contact Diagnoses 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HCC) Brain aneurysm subarachnoid hemorrhage Subarachnoid bleed (HCC) Encounter Details Date Type Department Care Team Description 03/09/2017 [facility] Melissa Del Valle MD Ruptured cerebral - Encounter [address] aneurysm (HCC) 03/26/2017 [place] [address] [place] [address] [phone] Edgar Leon MD [address] [place] [address] [phone] Social History Tobacco Use Types Packs/Day Years Used Date Current Every Day Smoker 1 30 Sex Assigned at Date Recorded Not on file as of this encounter Last Filed Vital Signs Vital Sign Reading Time Taken Blood Pressure 192/83 03/26/2017 1:47 PM LIMEHOUSE WORKER Pulse 72 03/26/2017 1:47 PM LIMEHOUSE WORKER Temperature 36.8 C (98.3 F) 03/26/2017 1:47 PM LIMEHOUSE WORKER Respiratory Rate - - Oxygen Saturation 95% 03/26/2017 1:47 PM LIMEHOUSE WORKER Inhaled Oxygen - - Concentration Weight 105.9 kg (233 lb 7.5 oz) 03/26/2017 12:47 PM LIMEHOUSE WORKER Height 172.7 cm (5' 8") 03/11/2017 3:28 PM LIMEHOUSE WORKER Body Mass Index 35.5 03/26/2017 12:47 PM LIMEHOUSE WORKER in this encounter Functional Status Functional [...] impairment: Yes 03/26/2017 as of this encounter Discharge Summaries * Melisa Emery APRN - 03/26/2017 3:49 PM LIMEHOUSE WORKER Formatting of this note may be different from the original. Physician Discharge Summary Name: Naren Mayfield Date Of : 1965 Age: 51 years Admit date: 03/09/2017 Discharge date: 03/26/17 Attending Physician: Edgar Bee Service: Surgery-Neuro Physician Summary completed by: Melisa Emery APRN Reason for hospitalization: ruptured right MCA aneurysm Significant PMH: Past Medical History: Diagnosis Date DM (diabetes mellitus) (HCC) HLD (hyperlipidemia) HTN (hypertension) Renal failure Allergies: Review of patient's allergies indicates no known allergies. Admission Physical Exam notable for: Naren Mayfield is a 51 y.o. male with PMH of HLD, HTN, renal failure, dialysis , and diabetes presenting from OSH with concern for right ruptured MCA aneurysm , GCS 7T on arrival. HH4mF3, WFNS grade 4 Neurologic Exam: Mental Status: awake, intubated Pupils: Pupils equal round and reactive to light Cranial Nerves: face symmetric Motor: Moves all spontaneously, does not follow RUE: localizes Normal muscle bulk and tone Sensation: unable to assess given patient condition Deep Tendon Reflexes: Plantar responses toes downgoing bilaterally No clonus bilaterally No shaffer's sign bilaterally Gait: deferred Admission Lab/Radiology studies notable for: Cerebral angiogram 03/09/17- Findings: Large right MCA bifurcation aneurysm measuring 11 mm in widest diameter with M2s arising from dome; therefore, not safely coilable. Brief Hospital Course: The patient was admitted and the following issues were addressed during this hospitalization: Admitted 03/09/17 with right ruptured MCA aneurysm. Diagnostic work completed showing large right MCA bifurcation aneurysm measuring 11 mm. Unable to be coiled. Surgical clipping of MCA aneurysm done with right hemicraniectomy on 03/09/17. He remained in the NeICU on close monitoring with TCDs for vasospasms and was ultimately extubated on 03/15/2017. The patient has experienced an acute hemorrhagic stroke syndrome after aneurysm rupture, with resulting left hemiparesis (primarily LLE), dysphagia, and significant cognitive and functional deficits. Complex hospital stay, please see chart for full details. He does have medical complexity and goals with PT, OT, and MEDTRONICS TECHNICIAN for acute inpatient rehabilitation. Transferred to inpatient rehab with scheduled follow up plans. Condition at Discharge: Stable Discharge Diagnoses: Hospital Problems Active Problems * (Principal)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HCC) IVH (intraventricular hemorrhage) (HCC) Intraparenchymal hematoma of brain (HCC) Subarachnoid bleed (HCC) Acquired skull defect Surgical Procedures: 03/10/17 Rt pterional craniotomy for clipping of MCA aneurysm - Neuromonitoring, aneurysm clips, microscope, ICG, radiolucent kent Significant Diagnostic Studies and Procedures: Cerebral Angiogram, CT angiogram , CT head, Chest xray, swallow study, LE doppler, CT chest/abd/pelvis, echocardiogram, transcranial dopplers Consults: Neurology ICU, Pulmonary Medicine, Renal, Rehab Medicine Patient Disposition: Outside Rehabilitation Facility Patient instructions/medications: Activity as Tolerated It is important to [...] work toward your normal activity level at discharge. No bone flap on the right side, needs to wear helmet for out of bed activity, may remove in chair until needs to transfer. Report These Signs and Symptoms Please contact your doctor if you have any of the following symptoms: Call if temperature greater than 101, incision red, drainage or odor noted from incision , pain that is uncontrolled with pain medication, numbness or weakness, vision changes, trouble with speech or slurring of speech, or any questions/concerns. Questions About Your Stay For questions or concerns regarding your hospital stay. Call [phone] Discharging attending physician: EDGAR BEE [[id number]] Pureed Diet You should eat or drink foods that are easy to swallow because they are blended , whipped, or mashed to a "pudding-like" texture. All foods on this diet should be smooth and free of lumps. [place] thick liquids. Needs supervision with oral intake. If you have questions about your diet after you go home, you can call a dietitian at [phone]. Incision Care *Keep your incision clean and dry. *May get incision wet, gently wash and pat dry. Keep incision out of the main stream of the shower water. *Do not submerge incision in tub, pool, hot tub, or berg for 6 weeks. *Your incision should gradually look better each day. If you notice unusual swelling, redness, drainage, have increasing pain at the site, or have a fever greater than 100 degrees, notify your physician immediately. Suture/Staple Removal You will need your sutures removed 03/29 okay to have removed at Rehab. Return Appointment Please contact our office close to discharge from Rehab so we can schedule his cranioplasty, please call [phone]. Provider EDGAR BEE [[id number]] Location [facility] Additional Discharge Instructions Patient sandeeyzes Birgit Subramanian Sat. Has Left arm fistula for vascular access. Please note his bone flap is in the belly. Current Discharge Medication List START taking these medications Details acetaminophen (TYLENOL) 325 mg tablet Take 2 tablets by mouth every 4 hours as needed. Refills: 0 PRESCRIPTION TYPE: OTC heparin (porcine) PF 5,000units/0.5mL injection syringe Inject 0.5 mL under the skin every 8 hours. PRESCRIPTION TYPE: No Print Comments: May dc after patient mobilizing well. levETIRAcetam (KEPPRA) 750 mg tablet Take 2 tablets by mouth daily. Do not stop being used for seizure control PRESCRIPTION TYPE: No Print melatonin 3 mg tab Take 1 tablet by mouth at bedtime daily. PRESCRIPTION TYPE: No Print methylcellulose (GONIOSOL) 2.5 % ophthalmic solution Apply 1 drop to right eye as directed as Needed. Indications: DRY EYE Refills: 12 PRESCRIPTION TYPE: No Print niMODipine (NIMOTOP) 30 mg capsule Take 2 capsules by mouth every 4 hours for 4 days. Qty: 48 capsule, Refills: 0 PRESCRIPTION TYPE: No Print nystatin (MYCOSTATIN) 100,000 units/mL oral suspension Take 5 mL by mouth four times daily. Refills: 0 PRESCRIPTION TYPE: No Print QUEtiapine (SEROQUEL) 50 mg tablet Take 1 tablet by mouth twice daily. PRESCRIPTION TYPE: No Print senna/docusate (SENOKOT-S) 8.8/50 mg /10 mL solution Take 10 mL by mouth twice daily. PRESCRIPTION TYPE: OTC CONTINUE these medications which have been CHANGED or REFILLED Details losartan (COZAAR) 50 mg tablet Take 2 tablets by mouth daily. Qty: 90 tablet, Refills: 3 PRESCRIPTION TYPE: No Print metoprolol XL (TOPROL XL) 100 mg extended release tablet Take 1 tablet by mouth twice daily. Titration towards home dose 200mg BID PRESCRIPTION TYPE: No Print CONTINUE these medications which have NOT CHANGED Details albuterol (VENTOLIN HFA) 90 mcg/actuation inhaler Inhale [...] one with snacks PRESCRIPTION TYPE: Historical Med doxazosin (CARDURA) 8 mg tablet Take 8 mg by mouth at bedtime daily. PRESCRIPTION TYPE: Historical Med ferric citrate 210 mg iron tab Take 210 mg by mouth twice daily. PRESCRIPTION TYPE: Historical Med The following medications were removed from your list. This list includes medications discontinued this stay and those removed from your prior med list in our system baclofen (LIORESAL) 10 mg tablet fluticasone/salmeterol (ADVAIR DISKUS) 250/50 mcg inhalation disk furosemide (LASIX) 40 mg tablet HYDROcodone/acetaminophen (NORCO) 7.5/325 mg tablet insulin aspart (NOVOLOG) 100 unit/mL injection insulin glargine (LANTUS) 100 unit/mL injection losartan-hydrochlorothiazide (HYZAAR) 100-25 mg tablet metOLazone (ZAROXOLYN) 5 mg tablet metoprolol tartrate (LOPRESSOR) 100 mg tablet minoxidil (LONITEN) 10 mg tablet Pending items needing follow up: none Signed: Melisa Emery APRN 03/28/2017 cc: Primary Care Physician: Na No PCP PCP Unknown Referring physicians: Self, Referral Additional provider(s): in this encounter Medications at [...] mg by mouth iron tab twice daily. melatonin 3 mg tab Take 1 tablet by mouth at 03/26/2017 bedtime daily. QUEtiapine (SEROQUEL) 50 Take 1 tablet by mouth 03/26/2017 mg tablet twice daily. senna/docusate Take 10 mL by mouth twice 03/26/2017 (SENOKOT-S) 8.8/50 mg /10 daily. mL solution heparin (porcine) PF Inject 0.5 mL under the 03/26/2017 04/10/2017 5,000units/0.5mL skin every 8 hours. injection syringe HEPARIN SODIUM,PORCINE Administer 5,000 Units 03/26/2017 04/10/2017 (HEPARIN (PORCINE)) 5,000 through vein every 8 unit/mL injection hours. levETIRAcetam (KEPPRA) Take 2 tablets by mouth 03/26/2017 04/05/2017 750 mg tablet daily. Do not stop being used for seizure control losartan (COZAAR) 50 mg Take 2 tablets by mouth 90 tablet 3 201604/05/2017 tablet daily. methylcellulose Apply 1 drop to right eye 12 03/26/2017 04/05/2017 (GONIOSOL) 2.5 % as directed as Needed. ophthalmic Indications: DRY EYE solutionIndications: DRY EYE metoprolol XL (TOPROL XL) Take 1 tablet by mouth 03/26/2017 04/05/2017 100 mg extended release twice daily. Titration tablet towards home dose 200mg BID niMODipine (NIMOTOP) 30 Take 2 capsules by mouth 48 capsule 0 201603/30/2017 mg capsule every 4 hours for 4 days. nystatin (MYCOSTATIN) Take 5 mL by mouth four 0 03/26/2017 04/10/2017 100,000 units/mL oral times daily. suspension as of this encounter Progress Notes * Amairani Miller, RN - 03/26/2017 3:49 PM LIMEHOUSE WORKER Naren Mayfield discharged on 03/26/2017. Discharge instructions reviewed with nurse at rehab facility. Valuables returned: Yes Personal Items / Valuables: Valuables/Belongings home with patient. Home medications: None Functional assessment at discharge complete: Yes PIV removed prior to discharge. Report called to RN at rehab facility. All questions addressed and answered. * Melisa Emery APRN - 03/26/2017 12:43 PM LIMEHOUSE WORKER Formatting of this note may be different [...] (HCC) Added automatically from request for surgery [id number] IVH (intraventricular hemorrhage) (HCC) Intraparenchymal hematoma of brain (HCC) Subarachnoid bleed (HCC) Acquired skull defect Added automatically from request for surgery [id number] SBP goal - normotensive Nimotop SQH Keppra [...] assessed for need for restraints. Please call [phone] with questions. Melisa Emery APRN * Eddie Oconnor MBBS - 03/26/2017 10:43 AM LIMEHOUSE WORKER Formatting of this note may be different [...] renal standpoint. CIPRIANO De La Rosa Pager [phone] Subjective Naren Mayfield is a 51 y.o. [...] 20,000 Units/ sodium bicarbonate 650 mg(#) PRN (Wood Polisher from Rx), sodium chloride 0.9% (NS) IP [...] edema Skin: no rash Labs Recent Labs 03/24/1741203/25/17 04203/26/17 0420 NA 137 136* 134* K 4.6 [...] Carie Kinney, OT - 03/26/2017 10:00 AM LIMEHOUSE WORKER OCCUPATIONAL THERAPY NO TREATMENT NOTE Patient off unit to dialysis at this time and unavailable for occupational therapy. OT will continue to follow. Therapist: ROME Portillo/Omar [id number] Date: 03/26/2017 * Miguel Angel Godoy, PT - 03/25/2017 10:57 AM LIMEHOUSE WORKER PHYSICAL THERAPY PROGRESS NOTE MOBILITY: Mobility Progressive [...] * Sharyn Rutledge - 03/25/2017 10:54 AM LIMEHOUSE WORKER Formatting of this note may be different from the original. OCCUPATIONAL THERAPY PROGRESS NOTE Patient Name: Naren Mayfield [id number] Admitting Diagnosis: subarachnoid hemorrhage Subarachnoid bleed (HCC) [...] be determined Therapist: MIRNA Westfall/Omar [id number] Date: 03/25/2017 * Eddie Oconnor MBBS - 03/25/2017 10:17 AM LIMEHOUSE WORKER Formatting of this note may be different [...] with dialysis. CIPRIANO De La Rosa Pager [phone] Subjective Naren Mayfield is a 51 y.o. [...] Units/ sodium bicarbonate 650 mg(#) PRN ( Wood Polisher from Rx), sodium chloride 0.9% (NS) IP [...] 1841) Intake/Output Summary (Last 24 hours) at 03/25/17 [...] edema Skin: no rash Labs Recent Labs 03/23/1743803/24/173 03/25/17 0427 NA 136* 137 136* K 4.2 4.6 4.7 CL 92* 97* 96* CO2 17* 19* 17* GAP 27* 21* 23* BUN 78* 49* 66* CR 8.84* 6.39* 8.73* GLU 91 94 91 CA 10.9* 10.1 10.5 MG 2.6 -- -- PO4 8.6* 6.5* -- Recent Labs 03/23/17 04303/24/173 03/25/17 0427 WBC 6.8 7.8 7.3 HGB 9.3* 10.0* 9.3* HCT 28.1* 29.1* 27.4* PLTCT 249 217 228 Estimated Creatinine Clearance: 12 mL/min (based on Cr of 8.73). Vitals: 03/23/17 0400 03/23/17 1045 03/23/17 1445 Weight: 103.9 kg (229 lb 0.9 oz) (S) 104.4 kg (230 lb 2.6 oz) 104.2 kg (229 lb 11.5 oz) Recent Labs 03/23/17 043 PHART 7.26* PO2ART 74* CIPRIANO De La Rosa * Maria Dolores Simmons APRN - 03/25/2017 8:46 AM LIMEHOUSE WORKER Formatting of this note may be different [...] (HCC) Added automatically from request for surgery [id number] IVH (intraventricular hemorrhage) (HCC) Intraparenchymal hematoma of brain (HCC) Subarachnoid bleed (HCC) Acquired skull defect Added automatically from request for surgery [id number] SBP goal - normotensive Nimotop SQH Keppra (renal dosing) PT/OT - inpatient rehab - plan for [facility] pending cranioplasty-if can be placed will wait to complete cranioplasty CT head 03/23 reviewed Prophylaxis: A)GI: PPI B) Lines: No C) Urinary Catheter: No D) Antibiotic Usage: No E) VTE: Pharmacological prophylaxis; SQ Heparin and Mechanical prophylaxis; Sequential compression device F) Restraints: Patient assessed for need for restraints. Please call [phone] with questions. Maria Dolores Simmons APRN [id number] * Jay Mortensen - 03/24/2017 4:28 PM LIMEHOUSE WORKER ORTHOTICS/PROSTHETICS Follow-up Note: NAME: Naren Mayfield ROOM: [facility]/ DIAGNOSIS: brain bleed DATE OF INITIAL CONSULT: [...] Thank you Orthotics can be reached at [phone]. [facility] * Montana Moore MD - 03/24/2017 9:00 AM LIMEHOUSE WORKER Formatting of this note may be different [...] (HCC) Added automatically from request for surgery [id number] IVH (intraventricular hemorrhage) (HCC) Intraparenchymal hematoma of brain (HCC) Subarachnoid bleed (HCC) SBP goal - normotensive Nimotop SQH Keppra (renal dosing) PT/OT - inpatient rehab - plan for [facility] pending cranioplasty Corpak out, continue to monitor [...] assessed for need for restraints. Please call [phone] with questions. Saeid Nix MD ATTESTATION mixed crop and livestock farmer neurosurgery attending coverage. Patient seen and reviewed with resident team. Present management. Staff name: Montana Moore MD Date: 03/24/2017 * Jimena Rogel RT - 03/24/2017 8:53 AM LIMEHOUSE WORKER Formatting of this note may be different [...] Date: 03/24/2017 Rubin AC=Airway clearance AM=Aerosolized medication BA=Baldwin aerosol DB&C=Deep breathe & cough FEV1=Forced expiratory volume in first second) IC=Inspiratory capacity LE=Lung expansion MDI=Metered dose inhaler Neb=Nebulizer O2=Oxygen Oxim=Oximetry PEFR=Peak expiratory flow rate AVIATION TECHNICIAN AIRCRAFT=Rapid Response Team * Yesenia Mendoza RN - 03/24/2017 8:25 AM LIMEHOUSE WORKER Patient up to chair but refusing to wear helmet because he states it is too small. This RN contacted [employer] [facility] [employer] [facility] about getting a larger helmet. * Consuelo Cox RN - 03/24/2017 7:11 AM LIMEHOUSE WORKER Neuro surgery paged. Pt removed Corpak last night, day RN in need of morning medications changed to PO medications. MD Nix placed the orders to change medications. Will continue to monitor. * Consuelo Cxo RN - 03/24/2017 1:40 AM LIMEHOUSE WORKER Neuro surg paged. Pt's corpak came out after requesting tylenol, RN told MD that pt is tolerating nector thick liquids well. MD Nix notified and told RN told leave the corpak out and change the tylenol order to PO. * Yesenia Mendoza RN - 03/23/2017 6:47 PM LIMEHOUSE WORKER Patient arrived on unit via bed accompanied by RN. Patient transferred to the bed with assistance. Assessment completed, refer to flowsheet for details. Orders released, reviewed, and implemented as appropriate. Oriented to surroundings, call light within reach. Plan of care reviewed. Will continue to monitor and assess. * Ryan Villagran MD - 03/23/2017 3:25 PM LIMEHOUSE WORKER Formatting of this note may be different [...] per neuro team Ryan Villagran MD Pager [phone] Subjective Naren Mayfield is a 51 y.o. [...] 000 Units/ sodium bicarbonate 650 mg(#) PRN (Wood Polisher from Rx), sodium chloride 0.9% (NS) IP [...] no rash Labs Recent Labs 03/21/17 03403/22/17 03503/23/17 043 NA 137 135* 136* K 3.6 4.1 4.2 CL 94* 95* 92* CO2 17* 19* 17* GAP 26* 21* 27* BUN 75* 51* 78* CR 7.98* 6.31* 8.84* GLU 140* 153* 91 CA 10.7* 10.2 10.9* MG 2.5 2.4 2.6 PO4 7.0* 6.3* 8.6* Recent Labs 03/21/17 03403/22/17 0350 03/23/17 043 WBC 8.6 8.6 6.8 HGB 10.2* 10.4* [...] Montana Moore MD - 03/23/2017 2:54 PM LIMEHOUSE WORKER Formatting of this note may be different [...] (HCC) Added automatically from request for surgery [id number] IVH (intraventricular hemorrhage) (HCC) Intraparenchymal hematoma of brain (HCC) Subarachnoid bleed (HCC) Continue monitoring for seizure activity - renal keppra dosing SBP - normotensive Nimotop SQH Keppra PT/OT - inpatient rehab - plan for [facility] when able Pending Corpak removal based on intake Possible cranioplasty Saturday Prophylaxis: A)GI: PPI B) Lines: Yes; Central Line; Indication: Hemodialysis/Plasmapheresis; Type: Implanted subcutaneous access device C) Urinary Catheter: No D) Antibiotic Usage: No E) VTE: Pharmacological prophylaxis; SQ Heparin and Mechanical prophylaxis; Sequential compression device F) Restraints: Patient assessed for need for restraints. Miguel Angel Jaime MD [id number] Please call [phone] with any questions. ATTESTATION mixed crop and livestock farmer neurosurgery attending coverage. Patient seen and reviewed with resident team. Present management. Staff name: Montana Moore MD Date: 03/23/2017 * Matheus López RT - 03/23/2017 8:20 AM LIMEHOUSE WORKER Formatting of this note may be different [...] Cell Crisis OR Anemia (<10) OR Acute CT (02 & oxim) Patient Assessment * Respiratory [...] Date: 03/23/2017 Rubin AC=Airway clearance AM=Aerosolized medication BA=Baldwin aerosol DB&C=Deep breathe & cough FEV1=Forced expiratory volume in first second) IC=Inspiratory capacity LE=Lung expansion MDI=Metered dose inhaler Neb=Nebulizer O2=Oxygen Oxim=Oximetry PEFR=Peak expiratory flow rate AVIATION TECHNICIAN AIRCRAFT=Rapid Response Team * Portia Johnson, RD - 03/22/2017 4:01 PM LIMEHOUSE WORKER CLINICAL NUTRITION Clinical Nutrition Follow-Up Summary Nutrition Assessment of Patient: Malnutrition Assessment: Does not meet criteria Current Oral Intake: Inadequate (new start of pureed today) Estimated Calorie Needs: 6649-2336 (30-32 kcal/kg desired wt) Estimated Protein Needs: 110-135 (1.5-1.8 g /kg desired wt) Oral Diet Order: Pureed, [place] Thick Liquids Oral Supplement: Nutrisource Fiber, TID, [...] injuries noted. BM 03/22 (rectal tube out). MEDTRONICS TECHNICIAN evaluated pt safe for pureed diet with nectar thick liquids today and EN feeds discontinued. Primary team added 3 packs Nutrisource fiber ( 1 per each meal). FSBS 128-219 with correction insulin on board. MEDTRONICS TECHNICIAN continuing to follow pt for oral intake safety and options. Recommendation: Continue to encourage po inake on pureed diet with nectar thick fluids. Add CIB in nectar thick milk daily and PRN if tolerated with renal/diabetes status. Intervention / Plan: monitor po intake, wt trends, labs, meds, GI status monitor MEDTRONICS TECHNICIAN findings and recs Nutrition Diagnosis: Nutrition Diagnosis: Altered GI function Etiology: swallowing deficits s/p SAH/extubation Signs & Symptoms: pureed diet with nectar thick fluids per MEDTRONICS TECHNICIAN recs Goals: EN tolerated and meeting >85% of nutritional needs Time Frame: Throughout Stay Status: Partially met;no longer appropriate Patient to consume >50% of meals Time Frame: Within [address] * Lilian Garcia - 03/22/2017 1:57 PM LIMEHOUSE WORKER SPEECH-LANGUAGE PATHOLOGY COGNITIVE ASSESSMENT // SWALLOW TREATMENT [...] safety problems given min cues. Therapist: Omar Ames/ISMAEL-MEDTRONICS TECHNICIAN [id number] Date: 03/22/2017 * Elaine Nicholson APRN - 03/22/2017 12:18 PM LIMEHOUSE WORKER Pt hemodynamically stable and neuro exam unchanged. Discussed with primary team and NEICU Team to sign off at this time. Please page [phone] with any questions. Thank you for this consult. * Sharyn Rutledge - 03/22/2017 11:32 AM LIMEHOUSE WORKER Formatting of this note may be different from the original. OCCUPATIONAL THERAPY PROGRESS NOTE Patient Name: Naren Mayfield Room/Bed: [place] [address] Admitting Diagnosis: subarachnoid hemorrhage Subarachnoid bleed (HCC) [...] Cooperative to Participate Persons Present: (OT student; dietetic tech) ADL's Where Assessed: In Bathroom Eating Assist: [...] Carole Sloan, PT - 03/22/2017 10:09 AM LIMEHOUSE WORKER PHYSICAL THERAPY PROGRESS NOTE MOBILITY: Mobility Progressive [...] / Cognitive Status: Cooperative;Alert;Follows Commands Persons Present: Section Hand Pain: Patient has no complaint of pain [...] Jeancarlos Menendez MD - 03/22/2017 7:41 AM LIMEHOUSE WORKER Formatting of this note may be different from the original. Neuroscience Critical Care Progress Note Naren Mayfield Admission Date: 03/09/2017 LOS: 13 days ASSESSMENT/PLAN Patient Active Problem List Diagnosis Date Noted IVH (intraventricular hemorrhage) ([facility]) 03/09/2017 Intraparenchymal hematoma of brain (HCC) 03/09/2017 Subarachnoid bleed ([facility]) 03/09/2017 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[facility]) 03/09/2017 Added automatically from request for surgery [id number] Naren Mayfieldis a 51 y.o.malewith PMH of [...] 130-180 to help with vasospasms - Nimodipine [id number] - Continue Keppra 1500mg daily after dialysis - TCDs Daily - Neuro-ICU monitoring, neurochecks q 2 hrs Sedation/Pain Management: Yes -ICU delirium - Stop Precedex - Fentanyl PRN - Seroquel BID 50mg - Haldol prn - Melatonin 3mg Qhs - Delirium protocol Cardiac: HTN, HLD - SBP goal: 130-180 - MAP goal > 65 - EKG with SR, LVH - 03/11 Restart GREENKEEPER minoxidil and metoprolol BID - 03/11 ECHO [...] normothermia protocol if febrile Renal: ESRDon dialysis ,, - Renal consult - dialysis 03/21 2L [...] Potassium goal >4.0 mEq/L Prophylaxis Review: A) GI:S6Ksrregy B) Lines:2 peripheral lines and Right arterial [...] 20,000 Units/ sodium bicarbonate 650 mg(#) PRN (Wood Polisher from Rx), sodium chloride 0.9% (NS) IP [...] 0350) POC Glucose (Download): (!) 155 (03/22/17 9943) Radiology and Other Diagnostic Procedures Review: Reviewed and discussed above. Jeancarlos Menendez MD Date: 03/22/[phone] Associated attestation - Derrell Bowers MD - 03/22/2017 2:30 PM LIMEHOUSE WORKER Formatting of this note may be different [...] name: Derrell Bowers MD Date: 03/22/2017 * Faraz Hernandez MD - 03/22/2017 6:57 AM LIMEHOUSE WORKER Formatting of this note may be different from the original. Neurosurgery Progress Note SUBJECTIVE: Patient stable overnight. Continues slow improvement with diet. OBJECTIVE: Vital Signs: 24 Hour Range BP: (145-201)/(56-89) ABP: (145-208)/(52-80) Temp: [36.4 C (97.6 F)-36.9 C (98.5 F)] Pulse: [66-98] Respirations: [15 PER MINUTE-31 PER MINUTE] SpO2: [90 %-99 %] O2 Delivery: None (Room Air) Awake; Oriented to self, setting, year/month Follows commands x 4 extremities, good strength Surgical fontanelle soft Incisions c/d/i - Abdomen with 1 spot tenderness and some mild erythema around andria otherwise no fluid or concerns. ASSESSMENT/PLAN: 51 y.o. male s/p craniotomy x 2 for repair of right MCA aneurysm 03/10/2017 Active Hospital Problems Diagnosis 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HCC) Added automatically from request for surgery [id number] IVH (intraventricular hemorrhage) (HCC) Intraparenchymal hematoma of brain (HCC) Subarachnoid bleed (HCC) Continue monitoring for seizure activity - renal keppra dosing Nimotop SBP - normotensive will continue to add PAT meds SQ heparin Keppra PT/OT - inpatient rehab - plan for [facility] when able Progress on swallow evaluation - puree diet - may take out corpak. Prophylaxis: A)GI: PPI B) Lines: Yes; Central Line; Indication: Hemodialysis/Plasmapheresis; Type: Implanted subcutaneous access device C) Urinary Catheter: No D) Antibiotic Usage: No E) VTE: Pharmacological prophylaxis; SQ Heparin and Mechanical prophylaxis; Sequential compression device F) Restraints: Patient assessed for need for restraints. Faraz Hernandez MD Please call [phone] with any questions. * Adi Gonzalez, RT - 03/21/2017 10:39 PM LIMEHOUSE WORKER RN placed Mr. Mayfield on 2 Lpm Nasal cannula to keep saturation above 92%. * Jarett uSltana, RN - 03/21/2017 8:30 PM LIMEHOUSE WORKER Neurosurgery notified of pt guarding abdomen where bone flap is, his right lower quadrant of the abdomen. Neurosurgery at bedside to assess. Pt states its tender. Orders to monitor redness and site. Will continue to monitor. * Patti Mcclure - 03/21/2017 4:12 PM LIMEHOUSE WORKER SPEECH-LANGUAGE PATHOLOGY VIDEOSWALLOW ASSESSMENT EVALUATION SUMMARY Videoswallow [...] hour ). Please follow precautions posted at [facility]. 2:Will continue to follow for [...] on pharyngeal structures. Swallow Recommendations* PO: Pureed, [place] Thick Liquids Swallow Strategies: Supervision During Meals [...] Fed Self Thin Liquid: 1 Tsp, Cup [place] Thick Liquid: 1 Tsp, Cup Other Consistencies: [...] with moderate cues. Therapist: Patti Nava M.S., CCC-L/MEDTRONICS TECHNICIAN Pager:[phone] Office:[phone] Date: 03/21/2017 * Consuelo Ayala, RN - 03/21/2017 3:30 PM LIMEHOUSE WORKER Patient transported to radiology for a video swallow with this RN and transport. Patient tolerated transport and procedure without any complications. * Saqib FernandoSharyn schmidt - 03/21/2017 1:44 PM LIMEHOUSE WORKER OCCUPATIONAL THERAPY PROGRESS NOTE Patient Name: Naren Mayfield Room[facility]: [id number] Admitting Diagnosis: subarachnoid hemorrhage Subarachnoid bleed (HCC) [...] Carole Sloan, PT - 03/21/2017 1:44 PM LIMEHOUSE WORKER PHYSICAL THERAPY PROGRESS NOTE MOBILITY: Mobility Progressive [...] Tracie Mitchell MD - 03/21/2017 1:15 PM LIMEHOUSE WORKER Formatting of this note may be different [...] per neuro team Tracie Mitchell MD Pager [phone] Subjective Naren Mayfield is a 51 y.o. [...] 20,000 Units/ sodium bicarbonate 650 mg(#) PRN (Wood Polisher from Rx) , sodium chloride 0.9% (NS) [...] PO2ART 85 65* Tracie Mitchell MD Pager [phone] * Jeancarlos Menendez MD - 03/21/2017 7:22 AM LIMEHOUSE WORKER Formatting of this note may be different from the original. Neuroscience Critical Care Progress Note Naren Mayfield Admission Date: 03/09/2017 LOS: 12 days ASSESSMENT/PLAN Patient Active Problem List Diagnosis Date Noted IVH (intraventricular hemorrhage) (HCC) 03/09/2017 Intraparenchymal hematoma of brain (HCC) 03/09/2017 Subarachnoid bleed (HCC) 03/09/2017 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HCC) 03/09/2017 Added automatically from request for surgery [id number] Naren Mayfieldis a 51 y.o.malewith PMH of [...] hydrocephalus:No EVD at: N/A Sodium Goal:135-145 - 12/2 CTA Head: 1. Large saccular aneurysm projecting [...] 130-200 to help with vasospasms - Nimodipine [id number] - Continue Keppra 1500mg daily after dialysis - TCDs Daily - Neuro-ICU monitoring, neurochecks q 2 hrs Sedation/Pain Management: Yes -ICU delirium - Stop Precedex - Fentanyl PRN - Seroquel BID 50mg - Haldol prn - Melatonin 3mg Qhs - Delirium protocol Cardiac: HTN, HLD - SBP goal: 130-180 - MAP goal > 65 - EKG with SR, LVH - 03/11 Restart GREENKEEPER minoxidil and metoprolol BID - 03/11 ECHO [...] Potassium goal >4.0 mEq/L Prophylaxis Review: A) GI:V9Vptphjt B) Lines:2 peripheral lines and Right arterial [...] (98.3 F) (03/21 0400) Pulse: 78 (03/21 700) Respirations: 31 PER MINUTE (03/21 700) SpO2: [...] 20,000 Units/ sodium bicarbonate 650 mg(#) PRN (Wood Polisher from Rx), sodium chloride 0.9% (NS) IP [...] (03/21/17 0340) POC Glucose (Download): (!) 150 (03/21/17 453) Radiology and Other Diagnostic Procedures Review: Reviewed and discussed above. Jeancarlos Menendez MD Date: 03/21/[phone] Associated attestation - Derrell Bowers MD - 03/21/2017 12:29 PM LIMEHOUSE WORKER Formatting of this note may be different from the original. ATTESTATION I have seen, personally fully evaluated, and discussed patient [facility] Dr [facility]. I agree with the [...] name: Derrell Bowers MD Date: 03/21/2017 * Faraz Hernandez MD - 03/21/2017 7:00 AM LIMEHOUSE WORKER Formatting of this note may be different from the original. Neurosurgery Progress Note SUBJECTIVE: Patient stable overnight. Continues to progress, OBJECTIVE: Vital Signs: 24 Hour Range ABP: (160-210)/(59-81) Temp: [36.5 C (97.7 F)-37.1 C (98.7 F)] Pulse: [66-89] Respirations: [10 PER MINUTE-26 PER MINUTE] SpO2: [90 %-96 %] O2 Delivery: None (Room Air) Awake; Oriented to self, setting, year/month Follows commands x 4 extremities, good strength Surgical fontanelle soft Incisions c/d/i - including abdomen ASSESSMENT/PLAN: 51 y.o. male s/p craniotomy x 2 for repair of right MCA aneurysm 03/10/2017 Active Hospital Problems Diagnosis 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HCC) Added automatically from request for surgery [id number] IVH (intraventricular hemorrhage) (HCC) Intraparenchymal hematoma of brain (HCC) Subarachnoid bleed (HCC) Continue monitoring for seizure activity - renal keppra dosing Nimotop Continue SBP 130-200 SQ heparin Keppra PT/OT - inpatient rehab - plan for [facility] when able Progress on swallow evaluation. Prophylaxis: A)GI: PPI B) Lines: Yes; Central Line; Indication: Hemodialysis/Plasmapheresis; Type: Implanted subcutaneous access device C) Urinary Catheter: No D) Antibiotic Usage: No E) VTE: Pharmacological prophylaxis; SQ Heparin and Mechanical prophylaxis; Sequential compression device F) Restraints: Patient assessed for need for restraints. Faraz Hernandez MD Please call [phone] with any questions. Associated attestation - Edgar Bee MD - 04/05/2017 10:39 AM LIMEHOUSE WORKER I have personally seen and examined the patient and developed the management plan as above. * Sharyn Rutledge - 03/20/2017 1:43 PM LIMEHOUSE WORKER OCCUPATIONAL THERAPY PROGRESS NOTE Patient Name: Naren Mayfield Room[facility]: [id number] Admitting Diagnosis: subarachnoid hemorrhage Subarachnoid bleed (HCC) [...] be determined Therapist: MIRNA Westfall/Omar [id number] Date: 03/20/2017 * Racquel Sloanth, PT - 03/20/2017 1:42 PM LIMEHOUSE WORKER PHYSICAL THERAPY PROGRESS NOTE MOBILITY: Mobility Progressive [...] Jeancarlos Menendez MD - 03/20/2017 11:24 AM LIMEHOUSE WORKER Formatting of this note may be different from the original. Neuroscience Critical Care Progress Note Naren Mayfield Admission Date: 03/09/2017 LOS: 11 days ASSESSMENT/PLAN Patient Active Problem List Diagnosis Date Noted IVH (intraventricular hemorrhage) (HCC) 03/09/2017 Intraparenchymal hematoma of brain (HCC) 03/09/2017 Subarachnoid bleed (HCC) 03/09/2017 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HCC) 03/09/2017 Added automatically from request for surgery [id number] Naren Mayfieldis a 51 y.o.malewith PMH of [...] 130-200 to help with vasospasms - Nimodipine [id number] - Continue Keppra 1500mg daily after dialysis - TCDs Daily - Neuro-ICU monitoring, neurochecks q 2 hrs Sedation/Pain Management: Yes -ICU delirium - Stop Precedex - Fentanyl PRN - Seroquel BID 50mg - Haldol prn - Delirium protocol Cardiac: HTN, HLD - SBP goal: 130-180 - MAP goal > 65 - EKG with SR, LVH - 03/11 Restart GREENKEEPER minoxidil and metoprolol BID - 03/11 ECHO [...] Potassium goal >4.0 mEq/L Prophylaxis Review: A) GI:C2Vdghlcd B) Lines:2 peripheral lines and Right arterial [...] 20,000 Units/ sodium bicarbonate 650 mg(#) PRN (Wood Polisher from Rx) Critical Care Vitals: ICP Monitoring: [...] 0428) POC Glucose (Download): (!) 150 (03/20/17 1596) Radiology and Other Diagnostic Procedures Review: Reviewed and discussed above. Jeancarlos Menendez MD Date: 03/20/[phone] Associated attestation - Derrell Bowers MD - 03/20/2017 11:49 AM LIMEHOUSE WORKER Formatting of this note may be different from the original. ATTESTATION I have seen, personally fully evaluated, and discussed patient with Dr Menendez and the PAICU team. I agree with the objective findings and agree with the plan of care as documented by the resident with the exceptions noted. The patient is critically ill with SAH s/p clipping, EDH s/p evacuation, ESRD c/b metabolic acidosis, pleural effusion and hypoxemia. Restart amlodipine 10 mg daily (GREENKEEPER med), may need addition of clonidine to [...] * Patti Mcclure - 03/20/2017 10:00 AM LIMEHOUSE WORKER SPEECH-LANGUAGE PATHOLOGY DAILY TREATMENT NOTE Patient seen [...] per hour). Please follow precautions posted at [facility]. Continue temporary alternate source of [...] follow 5x per week. Therapist: Patti Nava M.S. CCC-L/MEDTRONICS TECHNICIAN Pager:[phone] Office:[phone] Date: 03/20/2017 * Miguel Angel Jaime MD - 03/20/2017 7:05 AM LIMEHOUSE WORKER Formatting of this note may be different from the original. Neurosurgery Progress Note SUBJECTIVE: Patient stable overnight. No acute events overnight. OBJECTIVE: Vital Signs: 24 Hour Range ABP: (146-216)/(59-98) Temp: [36.8 C (98.2 F)-37.2 C (99 F)] Pulse: [70-91] Respirations: [12 PER MINUTE-24 PER MINUTE] SpO2: [89 %-99 %] O2 Delivery: Nasal Cannula Awake; Oriented to self, year Follows commands x 4 extremities, good strength Surgical fontanelle soft Incisions c/d/i - including abdomen ASSESSMENT/PLAN: 51 y.o. male s/p craniotomy x 2 for repair of right MCA aneurysm 03/10/2017 Active Hospital Problems Diagnosis 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HCC) Added automatically from request for surgery [id number] IVH (intraventricular hemorrhage) (HCC) Intraparenchymal hematoma of brain (HCC) Subarachnoid bleed (HCC) Continue monitoring for seizure activity - renal keppra dosing Nimotop Continue SBP 130-200 SQ heparin Keppra TCDs 1.7 / 1.2 PT/OT - inpatient rehab Prophylaxis: A)GI: PPI B) Lines: Yes; Central Line; Indication: Hemodialysis/Plasmapheresis; Type: Implanted subcutaneous access device C) Urinary Catheter: No D) Antibiotic Usage: No E) VTE: Pharmacological prophylaxis; SQ Heparin and Mechanical prophylaxis; Sequential compression device F) Restraints: Patient assessed for need for restraints. Miguel Angel Jaime MD Please call [phone] with any questions. Associated attestation - Edgar Bee MD - 04/05/2017 10:39 AM LIMEHOUSE WORKER I have personally seen and examined the patient and developed the management plan as above. * Mel Ortiz - 03/19/2017 2:50 PM LIMEHOUSE WORKER ORTHOTICS/PROSTHETICS Consult Note: NAME: Naren Mayfield ADMISSION DATE: admitted to hospital : 1965 AGE: 51 y.o. ROOM: [place] [address] DOCTOR: Date of Order: 03/19 Date of [...] Tracie Mitchell MD - 03/19/2017 1:28 PM LIMEHOUSE WORKER Formatting of this note may be different from the original. Renal Progress Note Name: aNren Mayfield Today's Date: 03/19/2017 Admission Date: 03/09/2017 [...] per neuro team Tracie Mitchell MD Pager [phone] Subjective Naren Mayfield is a 51 y.o. [...] 20,000 Units/ sodium bicarbonate 650 mg(#) PRN (Wood Polisher from Rx) Physical Exam Vital Signs: Last Filed In 24 Hours Vital Signs: 24 Hour Range Temp: 37.1 C (98.7 F) (03/19 1200) Pulse: 83 (03/19 1315) Respirations: 21 PER MINUTE (03/19 131) SpO2: 90 % (03/19 1315) O2 Delivery: None (Room Air) (03/19 131) SpO2 Pulse: 82 (03/19 1315) ABP: (146-216)/(60-80) [...] PO2ART 96 108* Tracie Mitchell MD Pager [phone] * Portia Johnson, RD - 03/19/2017 11:50 AM [facility] CLINICAL NUTRITION Clinical Nutrition Follow-Up Summary Nutrition Assessment of Patient: Malnutrition Assessment: Does not meet criteria Current Oral Intake: NPO Estimated Calorie Needs: 8692-0673 (30-32 kcal/kg desired wt) Estimated Protein Needs: 111-133g (1.5-1.8g/kg desired wt 74kf) Oral Diet Order: NPO Intake (calories) Daily Average : 1786 kilocalories (3 day EN/Prosource ave 03/16; 80% goal) Intake (protein) Daily Average : 118 grams (3 day EN/Prosource ave ; within goal range) Current EN Order: Novasource Renal @ 40ml/hr with 30ml water bolus [id number] and 3 packs Prosource per day. This [...] with low dose correction insulin on board. MEDTRONICS TECHNICIAN to see pt for oral intake safety [...] carb diabetic diet order with texture per MEDTRONICS TECHNICIAN. Intervention / Plan: re-eval of kcal goals with HD Monitor EN tolerance/provision monitor wt trends, labs, meds, GI status monitor for swallow eval and ability to advance diet per MEDTRONICS TECHNICIAN Nutrition Diagnosis: Nutrition Diagnosis: Altered GI function Etiology: swallowing deficits s/p SAH/extubation Signs & Symptoms: NPO with EN feeds and plans for MEDTRONICS TECHNICIAN eval Goals: EN tolerated and meeting >85% of nutritional needs Time Frame: Throughout Stay Status: Partially met;Ongoing Portia Johnson RD * Patti Mcclure - 03/19/2017 11:44 AM LIMEHOUSE WORKER SPEECH-LANGUAGE PATHOLOGY CLINICAL SWALLOW ASSESSMENT EVALUATION SUMMARY Summary: Clinical swallow evaluation completed this date. Moderate to severe oropharyngeal dysphagia present 2* prolonged intubation. Please see details below. RECOMMENDATIONS: 1:NPO with ice chips only (15-20 per hour). Please follow precautions posted at [facility]. Continue temporary alternate source of [...] 3-5x per week. Prognosis: Good NOMS Dysphagia Ratin1-Chzndyfyfq-Rfzmes Dysphagia -Not able to swallow safely by [...] Of Nutrition: NPO ORAL MECH EXAM Oral Mech WFL*: Face asymmetrical upon labial retraction (reduced [...] evaluation with moderate cues. Therapist:Patti Nava M.S., CCC-L/MEDTRONICS TECHNICIAN Pager:[phone] Office:[phone] Date:03/19/2017 * Jeancarlos Menendez MD - 03/19/2017 11:17 AM LIMEHOUSE WORKER Formatting of this note may be different from the original. 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 Added automatically from request for surgery [id number] Naren Mayfieldis a 51 y.o.malewith PMH of [...] 130-200 to help with vasospasms - Nimodipine [id number] - Continue Keppra 1500mg daily after dialysis - TCDs Daily - Neuro-ICU monitoring, neurochecks q 1 hrs Sedation/Pain Management: Yes -ICU delirium - Stop Precedex - Fentanyl PRN - Seroquel BID 50mg - Haldol prn - Delirium protocol Cardiac: HTN, HLD - SBP goal: 130-180 - MAP goal > 65 - EKG with SR, LVH - 03/11 Restart GREENKEEPER minoxidil and metoprolol BID - 03/11 ECHO [...] Potassium goal >4.0 mEq/L Prophylaxis Review: A) GI:O6Kwxhiid B) Lines:2 peripheral lines and Right arterial [...] 20,000 Units/ sodium bicarbonate 650 mg(#) PRN (Wood Polisher from Rx), sodium chloride 0.9% (NS) IP [...] (Last 24 hours): Glucose: (!) 166 (03/19/17 8984) POC Glucose (Download): (!) 163 (03/19/17 2491) Radiology and Other Diagnostic Procedures Review: Reviewed and discussed above. Jeancarlos Menendez MD Date: 03/19/[phone] Associated attestation - Derrell Bowers MD - 03/19/2017 1:59 PM LIMEHOUSE WORKER Formatting of this note may be different from the original. ATTESTATION I have seen, personally fully evaluated, and discussed patient with Dr Menendez and the PAICU team. I agree with the objective findings [...] name: Derrell Bowers MD Date: 03/19/2017 * Saqib Monroy Sharyn - 03/19/2017 8:59 AM LIMEHOUSE WORKER OCCUPATIONAL THERAPY PROGRESS NOTE Patient Name: Naren Mayfield Room/Bed: KZ1687/01 Admitting Diagnosis: subarachnoid hemorrhage Subarachnoid bleed (HCC) [...] Carole Sloan, PT - 03/19/2017 8:58 AM LIMEHOUSE WORKER PHYSICAL THERAPY PROGRESS NOTE MOBILITY: Mobility Progressive [...] 8 Standardized (T-scale) Score: 22.61 Basic Mobility [facility] 0-100%: 85.35 [facility] G Code Modifier for Basic Mobility: CM [...] Therapist: Carole Sloan, PT Date: 03/19/2017 * Miguel Angel Jaime MD - 03/19/2017 6:40 AM LIMEHOUSE WORKER Formatting of this note may be different from the original. Neurosurgery Progress Note SUBJECTIVE: Patient stable overnight. OBJECTIVE: Vital Signs: 24 Hour Range ABP: (158-216)/(62-80) Temp: [36.7 C (98.1 F)-37.2 C (99 F)] Pulse: [70-96] Respirations: [8 PER MINUTE-28 PER MINUTE] SpO2: [90 %-100 %] O2 Delivery: Face Shield Awake on exam Oriented to self, year Follows commands x 4 extremities, good strength Surgical fontanelle soft but full Incisions c/d/i - including abdomen ASSESSMENT/PLAN: 51 y.o. male s/p craniotomy x 2 for repair of right MCA aneurysm 03/10/2017 Active Hospital Problems Diagnosis 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HCC) Added automatically from request for surgery [id number] IVH (intraventricular hemorrhage) (HCC) Intraparenchymal hematoma of brain (HCC) Subarachnoid bleed (HCC) Continue monitoring for seizure activity - renal keppra dosing Afeb, WBC 8.6 Nimotop Continue SBP 130-200 SQ heparin Keppra TCDs 3.3 / 1.6 PT/OT - inpatient Prophylaxis: A)GI: PPI B) Lines: Yes; Central Line; Indication: Hemodialysis/Plasmapheresis; Type: Implanted subcutaneous access device C) Urinary Catheter: No D) Antibiotic Usage: No E) VTE: Pharmacological prophylaxis; SQ Heparin and Mechanical prophylaxis; Sequential compression device F) Restraints: Patient assessed for need for restraints. Miguel Angel Jaime MD Please call [phone] with any questions. Associated attestation - Edgar Bee MD - 04/05/2017 10:39 AM LIMEHOUSE WORKER I have personally seen and examined the patient and developed the management plan as above. The patient has made steady progress following extubation and reintubation not required at present. Obstacles remain, vasospasm may interrupt progress, full ICU management. * Tracie Mitchell MD - 03/18/2017 3:42 PM LIMEHOUSE WORKER Formatting of this note may be different [...] well so far Tracie Mitchell MD Pager [phone] Subjective Naren Mayfield is a 51 y.o. [...] 20,000 Units/ sodium bicarbonate 650 mg(#) PRN (Wood Polisher from Rx) , sodium chloride 0.9% (NS) [...] PO2ART 108* 96 Tracie Mitchell MD Pager [phone] * Yesenia Yoon, PT - 03/18/2017 9:38 AM LIMEHOUSE WORKER PHYSICAL THERAPY PROGRESS NOTE MOBILITY: Progressive Mobility [...] * Sharyn Rutledge - 03/18/2017 9:38 AM LIMEHOUSE WORKER OCCUPATIONAL THERAPY PROGRESS NOTE Patient Name: Naren Mayfield Room/Bed: [place] [address] Admitting Diagnosis: subarachnoid hemorrhage Subarachnoid bleed (HCC) [...] determined Therapist: Sharyn Monroy OTR/L [id number] Date: 03/18/2017 * Jeancarlos Menendez MD - 03/18/2017 7:54 AM LIMEHOUSE WORKER Formatting of this note may be different from the original. Neuroscience Critical Care Progress Note Naren Mayfield Admission Date: 03/09/2017 LOS: 9 days ASSESSMENT/PLAN Patient Active Problem List Diagnosis Date Noted IVH (intraventricular hemorrhage) (HCC) 03/09/2017 Intraparenchymal hematoma of brain (HCC) 03/09/2017 Subarachnoid bleed (HCC) 03/09/2017 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HCC) 03/09/2017 Added automatically from request for surgery [id number] Naren Dickens a 51 y.o.malewith PMH of [...] 130-180 to help with vasospasms - Nimodipine [id number] - Continue Keppra 1500mg daily after dialysis - TCDs Daily - Neuro-ICU monitoring, neurochecks q 1 hrs Sedation/Pain Management: Yes -ICU delirium - Precedex starterd overnight-will try and come off - Fentanyl PRN - Seroquel BID 50mg - Haldol prn - Delirium protocol Cardiac: HTN, HLD - SBP goal: 130-180 - MAP goal > 65 - EKG with SR, LVH - 03/11 Restart GREENKEEPER minoxidil and metoprolol BID - 03/11 ECHO [...] Potassium goal >4.0 mEq/L Prophylaxis Review: A) GI:N9Wmwxumd B) Lines:2 peripheral lines and Right arterial [...] 20,000 Units/ sodium bicarbonate 650 mg(#) PRN (Wood Polisher from Rx), sodium chloride 0.9% (NS) IP [...] SpO2 94 %. General appearance: well-developed Neurologic: [facility] coma score: E: 2 M: 6 V: [...] discussed above. Jeancarlos Menendez MD Date: 03/18/[phone] Associated attestation - Derrell Bowers MD - 03/18/2017 12:46 PM LIMEHOUSE WORKER Formatting of this note may be different from the original. ATTESTATION I have seen, personally fully evaluated, and discussed patient [facility] Dr Menendez [facility]. I agree with the [...] art line, left AV fistula, flexicele * Faraz Hernandez MD - 03/18/2017 6:50 AM LIMEHOUSE WORKER Formatting of this note may be different from the original. Neurosurgery Progress Note SUBJECTIVE: Patient stable overnight. Has not required re-intubation -neuro exam improving. OBJECTIVE: Vital Signs: 24 Hour Range BP: (138-200)/(60-89) ABP: (144-216)/(52-72) Temp: [36.7 C (98 F)-37.8 C (100 F)] Pulse: [66-83] Respirations: [5 PER MINUTE-25 PER MINUTE] SpO2: [92 %-98 %] O2 Delivery: Face Shield Face mask in place Awake on exam Oriented to self, year FC briskly RUE,RLE, LUE, wiggles left toes Surgical fontanelle soft but full Incisions c/d/i - including abdomen Cranial - nylons, abdomen - andria ASSESSMENT/PLAN: 51 y.o. male s/p craniotomy x 2 for repair of right MCA aneurysm 03/10/2017 Active Hospital Problems Diagnosis 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HCC) Added automatically from request for surgery [id number] IVH (intraventricular hemorrhage) (HCC) Intraparenchymal hematoma of brain (HCC) Subarachnoid bleed (HCC) Continue monitoring for seizure activity - renal keppra dosing afeb, WBC 8.6, continue to monitor closely for signs of infection Nimotop Continue SBP 130-180 Hgb 8.9 Dialysis daily - renal following SQ heparin Keppra TCDs 0.9, 2.0 03/17 PT/OT - inpatient Prophylaxis: A)GI: PPI B) Lines: Yes; Central Line; Indication: Hemodialysis/Plasmapheresis; Type: Implanted subcutaneous access device C) Urinary Catheter: No D) Antibiotic Usage: No E) VTE: Pharmacological prophylaxis; SQ Heparin and Mechanical prophylaxis; Sequential compression device F) Restraints: Patient assessed for need for restraints. Faraz Hernandez MD Please call [phone] with any questions. Associated attestation - Edgar Bee MD - 04/05/2017 10:37 AM LIMEHOUSE WORKER I have personally seen and examined the patient and developed the management plan as above. Reintubation not surprising given the number of variable simultaneously impacting patient's condition. * Nir Timmons MD - 03/17/2017 1:45 PM LIMEHOUSE WORKER Formatting of this note may be different [...] he can tolerate. Nir Timmons MD Pager [phone] Subjective Naren Mayfield is a 51 y.o. [...] 20,000 Units/ sodium bicarbonate 650 mg(#) PRN (Wood Polisher from Rx) , sodium chloride 0.9% (NS) [...] PHART 7.43 7.32* PO2ART 74* 108* Nir Winklhofer, MD Pager [phone] * Jeancarlos Menendez MD - 03/17/2017 12:05 PM LIMEHOUSE WORKER Formatting of this note may be different from the original. Neuroscience Critical Care Progress Note Naren Mayfield Admission Date: 03/09/2017 LOS: 8 days ASSESSMENT/PLAN Patient Active Problem List Diagnosis Date Noted IVH (intraventricular hemorrhage) ([facility]) 03/09/2017 Intraparenchymal hematoma of brain (HCC) 03/09/2017 Subarachnoid bleed (HCC) 03/09/2017 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HCC) 03/09/2017 Added automatically from request for surgery [id number] Naren Mayfieldis a 51 y.o.malewith PMH of [...] 130-180 to help with vasospasms - Nimodipine [id number] - Continue Keppra 1500mg daily after dialysis - TCDs Daily - Neuro-ICU monitoring, neurochecks q 1 hrs Sedation/Pain Management: Yes - Precedex stopped - Fentanyl PRN - Assess for delirium daily - Seroquel BID 50mg - Haldol prn Cardiac: HTN, HLD - SBP goal: 130-180 - MAP goal > 65 - EKG with SR, LVH - 03/11 Restart GREENKEEPER minoxidil and metoprolol BID - 03/11 ECHO [...] Potassium goal >4.0 mEq/L Prophylaxis Review: A) GI:N6Hpqnmbr B) Lines:2 peripheral lines, place Right arterial [...] 20,000 Units/ sodium bicarbonate 650 mg(#) PRN (Wood Polisher from Rx), sodium chloride 0.9% (NS) IP [...] SpO2 92 %. General appearance: well-developed Neurologic: [facility] coma score: E: 2 M: 6 V: [...] 24 hours): FSBS (Manual): (!) 127 (03/16/17 2735) Glucose: (!) 142 (03/17/17 0413) POC Glucose (Download): (!) 147 (03/17/17 4635) Radiology and Other Diagnostic Procedures Review: Reviewed and discussed above. Jeancarlos Menendez MD Date: 03/17/[phone] Associated attestation - Bakari Wu MD - 03/17/2017 9:11 PM LIMEHOUSE WORKER Formatting of this note may be different [...] possible cerebral vasospasm - observe closely Possible ORDER PULLER infection His agitation is also partly driven [...] Calista Espana MD - 03/17/2017 8:01 AM LIMEHOUSE WORKER Formatting of this note may be different [...] (HCC) Added automatically from request for surgery [id number] IVH (intraventricular hemorrhage) (HCC) Intraparenchymal hematoma of [...] for restraints. Calista Espana MD Please call [phone] with any questions. * Nir Timmons MD - 03/16/2017 5:19 PM LIMEHOUSE WORKER Formatting of this note may be different [...] computer is accurate. Nir Timmons MD Pager [phone] Subjective Naren Mayfield is a 51 y.o. [...] 20,000 Units/ sodium bicarbonate 650 mg(#) PRN (Wood Polisher from Rx), sodium chloride 0.9% (NS) IP [...] C (98.6 F) (03/16 1400) Pulse: 80 (03/160) Respirations: 28 PER MINUTE (03/16 1700) SpO2: [...] PO2ART 145* 92 Nir Timmons MD Pager [phone] * Calista Espana MD - 03/16/2017 8:11 AM LIMEHOUSE WORKER Formatting of this note may be different [...] (HCC) Added automatically from request for surgery [id number] IVH (intraventricular hemorrhage) (HCC) Intraparenchymal hematoma of [...] for restraints. Calista Espana MD Please call [phone] with any questions. * Bakari Wu - 03/16/2017 6:35 AM LIMEHOUSE WORKER Formatting of this note may be different [...] 03/09/2017 Added automatically from request for surgery [id number] Naren Dickens a 51 y.o.malewith PMH of [...] 130-200 to help with vasospasms - Nimodipine [id number] - Continue Keppra 1500mg daily after dialysis [...] EKG with SR, LVH - 03/11 Restart GREENKEEPER minoxidil and metoprolol BID - 03/11 ECHO [...] Potassium goal >4.0 mEq/L Prophylaxis Review: A) GI:Z6Dpogyfu B) Lines:Yes; Arterial Line; Indication: Continuous BP [...] (03/16 0500) Respirations: 27 PER MINUTE (03/16 0500) SpO2: 96 % (03/16 0500) O2 Delivery: Nasal Cannula (03/16 500) BP: [...] 20,000 Units/ sodium bicarbonate 650 mg(#) PRN (Wood Polisher from Rx), sodium chloride 0.9% (NS) IP [...] SpO2 96 %. General appearance: well-developed Neurologic: Dylan coma [...] hours): POC Glucose (Download): (!) 162 (03/16/17 1885) Radiology and Other Diagnostic Procedures Review: Reviewed and discussed above. Phi Velasquez MD Date: 03/16/[phone] * Portia Johnson, RD - 03/15/2017 2:18 PM LIMEHOUSE WORKER CLINICAL NUTRITION Clinical Nutrition Follow-Up Summary Nutrition [...] Renal @ 40ml/hr with 30ml water bolus [id number] and 3 packs Prosource per day. This [...] available this afternoon, says pt eating well GREENKEEPER and eating whatever he wanted though he [...] carb diabetic diet order with texture per MEDTRONICS TECHNICIAN. Intervention / Plan: obtained subjective data monitor En tolerance/provision monitor for swallow eval and ability to advance diet per MEDTRONICS TECHNICIAN monitor wt trends, labs, meds, GI status Nutrition Diagnosis: Nutrition Diagnosis: Altered GI function Etiology: respiratory/swallowing deficits with intubation/extubation s/p SAH Signs & Symptoms: NPO with EN feeds Goals: EN tolerated and meeting >75% of nutritional needs Time Frame: Within 72 Hours Status: Met;new goal established EN tolerated and meeting >85% of nutritional needs Time Frame: Throughout Stay Portia Johnson, TAE * Saman Joshi - 03/15/2017 2:07 PM LIMEHOUSE WORKER Patient disconnected from Video EEG Monitoring without complications. * Yesenia Yoon, PT - 03/15/2017 1:30 PM LIMEHOUSE WORKER PHYSICAL THERAPY ASSESSMENT MOBILITY: Progressive Mobility Level: [...] * Sharyn Rutledge - 03/15/2017 1:30 PM LIMEHOUSE WORKER OCCUPATIONAL THERAPY ASSESSMENT NOTE Patient Name: Naren Mayfield Room/Bed: [place] [address] Admitting Diagnosis: subarachnoid hemorrhage Subarachnoid bleed (HCC) [...] Home Equipment: Cane Prior Function Level Of Raymond: Independent with ADLs and functional transfers Lives [...] determined Therapist: Sharyn Monroy OTR/L [id number] Date: 03/15/2017 * Jeancarlos Menendez MD - 03/15/2017 1:01 PM LIMEHOUSE WORKER Formatting of this note may be different from the original. 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 Added automatically from request for surgery [id number] Naren Mayfieldis a 51 y.o.malewith PMH of [...] 130-160 to help with vasospasms - Nimodipine [id number] - Continue Keppra 1500mg daily after dialysis [...] EKG with SR, LVH - 03/11 Restart GREENKEEPER minoxidil and metoprolol BID - 03/11 ECHO EF 55% - 03/13 Stop minoxidil and metoprolol Respiratory: Pleural effusion Date of Intubation: 03/09/17Reason: Airway protection - PS 450/40%/21/08 - Extubated 03/15 - OSH CXR with [...] Potassium goal >4.0 mEq/L Prophylaxis Review: A) GI:H4Stnsrar B) Lines:Yes; Arterial Line; Indication: Continuous BP monitoring; Location: Radial C) Urinary Catheter:Yes; Retain cunningham due to: Need for accurate Intake and Output D) Antibiotic Usage:No E) VTE:SCDs F) Isolation:NA G)Seizures:Keppra I) Restraints: Patient assessed for need for restraints. Disposition/Family:NEICU Primary service:NSG Consults: NEICU, Renal, Pulmonary __ SUBJECTIVE Naren Mayfiled is a 51 y.o. male. Overnight Events: [...] 20,000 Units/ sodium bicarbonate 650 mg(#) PRN (Wood Polisher from Rx), sodium chloride 0.9% (NS) IP [...] SpO2 92 %. General appearance: well-developed Neurologic: [facility] coma score: E: 2 M: 6 V: [...] discussed above. Jeancarlos Menendez MD Date: 03/15/[phone] Associated attestation - Bakari Wu MD - 03/15/2017 6:36 PM LIMEHOUSE WORKER Formatting of this note may be different [...] discussed patient with Dr. Menendez and the PAICU team. I agree with the objective findings [...] Marta Soto OT - 03/14/2017 2:42 PM LIMEHOUSE WORKER OCCUPATIONAL THERAPY NO TREATMENT NOTE The patient [...] Tracie Mitchell MD - 03/14/2017 1:29 PM LIMEHOUSE WORKER Formatting of this note may be different [...] stable on treatment Tracie Mitchell MD Pager [phone] Subjective Naren Mayfield is a 51 y.o. [...] 20,000 Units/ sodium bicarbonate 650 mg(#) PRN (Wood Polisher from Rx), sodium chloride 0.9% (NS) IP Dialysis PRN, sodium chloride 0.9% (NS) IP Dialysis PRN Stopped at 03/14/17 0731, sodium chloride 0.9% (NS) IP Dialysis PRN Physical Exam Vital Signs: Last Filed In 24 Hours Vital Signs: 24 Hour Range BP: 144/60 (03/14 0730) Temp: 37.7 C (99.9 F) (03/14 1200) Pulse: 79 (03/14 131) Respirations: 24 PER MINUTE (03/14 131) SpO2: 97 % (03/14 131) O2 Delivery: Endotracheal Tube (Oral) (03/14 1200) [...] PO2ART 112* 109* Tracie Mitchell MD Pager [phone] * Jeancarlos Menendez MD - 03/14/2017 12:41 PM LIMEHOUSE WORKER Formatting of this note may be different from the original. 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 Added automatically from request for surgery [id number] Naren Dickens a 51 y.o.malewith PMH of [...] 130-160 to help with vasospasms - Nimodipine [id number] - Phenylephrine as needed - Increase Keppra [...] EKG with SR, LVH - 03/11 Restart GREENKEEPER minoxidil and metoprolol BID - 03/11 ECHO EF 55% - 03/13 Stop minoxidil and metoprolol Respiratory: Pleural effusion Date of Intubation: 03/09/17Reason: Airway protection - PS 450/40%/16/5 - OSH CXR with near complete opacification [...] Potassium goal >4.0 mEq/L Prophylaxis Review: A) GI:F6Ldhfnwu B) Lines:Yes; Arterial Line; Indication: Continuous BP [...] mL IV drip (std conc) Stopped (03/13/17 8512) PRN and Respiratory Meds:acetaminophen Q4H PRN, albuterol 0.5% Q4H PRN, fentaNYL citrate PF Q1H PRN, ipratropium bromide Q4H PRN, labetalol (NORMODYNE; TRANDATE) injection Q1H PRN, ondansetron Q6H PRN, pancrelipase 20,000 Units/ sodium bicarbonate 650 mg(#) PRN (Wood Polisher from Rx), sodium chloride 0.9% (NS) IP [...] discussed above. Jeancarlos Menendez MD Date: 03/14/[phone] Associated attestation - Bakari Wu MD - 03/14/2017 9:51 PM LIMEHOUSE WORKER Formatting of this note may be different from the original. NEICU Attending Leaflet Or Newspaper Deliverer Attestation Naren Mayfield is a 51 y.o. [...] * Sydney Andrade - 03/14/2017 9:05 AM LIMEHOUSE WORKER EEG signals are clean of artifact and visible. Video was visualized and recording. Audio recording was checked and functioning. The VEEG system is on- line. Central monitoring station is functioning appropriately. The event button is operational and within reach of the patient and/or patient' s family. Electrode impedances below 5 kOhms * Faraz Hernandez MD - 03/14/2017 7:10 AM LIMEHOUSE WORKER Formatting of this note may be different from the original. Neurosurgery Progress Note SUBJECTIVE: Exam steadily improved overnight OBJECTIVE: Vital Signs: 24 Hour Range ABP: (100-180)/(49-101) Temp: [37.1 C (98.7 F)-37.9 C (100.2 F)] Pulse: [71-91] Respirations: [0 PER MINUTE-28 PER MINUTE] SpO2: [85 %-100 %] O2 Delivery: Endotracheal Tube (Oral) Intubated, sedation held Eyes open to stimulus FC briskly TARAS WILSON, TAVON Surgical fontanel soft ASSESSMENT/PLAN: 51 y.o. male s/p craniotomy x 2 for repair of right MCA aneurysm 03/10/2017 Active Hospital Problems Diagnosis 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HCC) Added automatically from request for surgery [id number] IVH (intraventricular hemorrhage) (HCC) Intraparenchymal hematoma of brain (HCC) Subarachnoid bleed (HCC) Continue monitoring for seizure activity - renal keppra dosing nimotop Continue SBP 130-180 Hgb stable TCD 03/13/2017 - 3.6/2.0 Prophylaxis: A)GI: PPI B) Lines: Yes; Arterial Line; Indication: Frequent blood draws; Location: Radial Central Line; Indication: Frequent blood draws; Type: Subclavian, triple lumen C) Urinary Catheter: No D) Antibiotic Usage: Yes; Infection present or suspected: drainppx E) VTE: Pharmacological prophylaxis; Contraindication: Bleeding risk; recent surgery and Mechanical prophylaxis; Sequential compression device F) Restraints: Patient assessed for need for restraints. Faraz Hernandez MD [id number] Please call [phone] with any questions. Associated attestation - Edgar Bee MD - 04/05/2017 10:36 AM LIMEHOUSE WORKER I have personally seen and examined the patient and developed the management plan as above. * Tracie Mitchell MD - 03/13/2017 4:54 PM LIMEHOUSE WORKER Formatting of this note may be different [...] for dialysis needs. Tracie Mitchell MD Pager [phone] Subjective Naren Mayfield is a 51 y.o. [...] 20,000 Units/ sodium bicarbonate 650 mg(#) PRN (Wood Polisher from Rx) Physical Exam Vital Signs: Last Filed In 24 Hours Vital Signs: 24 Hour Range BP: 115/50 (03/13 0200) Temp: 37.7 C (99.9 F) (03/13 145) Pulse: 87 (03/13 145) Respirations: 28 PER [...] edema Skin: no rash Labs Recent Labs 03/10/17 2050 03/11/17 0355 03/12/17 0344 03/13/17 0344 NA 133* [...] PO2ART 99 112* Tracie Mitchell MD Pager [phone] * Portia Johnson, RD - 03/13/2017 3:54 PM [facility] CLINICAL NUTRITION Clinical Nutrition Follow-Up Summary Nutrition [...] combination of renal-dialysis and diabetic consistent carb [id number] (60g CHO/meal). Intervention / Plan: attempted to obtain subjective data Monitor labs, weight trends, EN intake/tolerance, GI health Nutrition Diagnosis: Nutrition Diagnosis: Inadequate protein-energy intake Etiology: SAH, s/p intubation Signs & Symptoms: trophic EN feeds Goals: EN tolerated and meeting >75% of nutritional needs Time Frame: Within 72 Hours Status: Ongoing Portia Johnson RD * Saman Joshi - 03/13/2017 3:07 PM LIMEHOUSE WORKER EEG electrodes were successfully placed on pt's [...] Carole Sloan, PT - 03/13/2017 11:45 AM LIMEHOUSE WORKER PHYSICAL THERAPY NOTE Patient's case reviewed and discussed during interdisciplinary rounds. Patient is currently minimally responsive and unable to participate in purposeful physical therapy. Physical therapy will continue to follow and provide intervention as indicated. Therapist: Carole Sloan, PT Date: 03/13/2017 * Marcos Solorzano MD - 03/13/2017 11:14 AM LIMEHOUSE WORKER Formatting of this note may be different [...] -- -- 5.2 -- Recent Labs 03/10/17 20503/11/17 0050 03/11/17 0355 03/11/17 0607 03/11/17 0843 [...] 20,000 Units/ sodium bicarbonate 650 mg(#) PRN (Wood Polisher from Rx) Radiology Pertinent radiology reviewed. Caroline Davila DO Pulmonary/Critical Care Pager # [phone] 03/13/2017 * Marta Soto, ERICK - 03/13/2017 10:05 AM LIMEHOUSE WORKER OCCUPATIONAL THERAPY NO TREATMENT NOTE The patient was not seen due to: discussed with RN. Pt with worsened exam, pt is not following commands and not able to participate in meaningful therapy at this time. Will continue to follow. Attempted to see patient 1 time(s) Therapist: Marta Soto, OT Date: 03/13/2017 * Jeancarlos Menendez MD - 03/13/2017 8:09 AM LIMEHOUSE WORKER Formatting of this note may be different from the original. 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 Added automatically from request for surgery [id number] Naren Mayfieldis a 51 y.o.malewith PMH of [...] 130-160 to help with vasospasms - Nimodipine [id number] - Phenylephrine - Keppra 1000mg daily after [...] EKG with SR, LVH - 03/11 Restart GREENKEEPER minoxidil and metoprolol BID - 03/11 ECHO [...] Potassium goal >4.0 mEq/L Prophylaxis Review: A) GI:D4Cpxkidq B) Lines:Yes; Arterial Line; Indication: Continuous BP [...] BP: 115/50 (03/13 0200) ABP: 118/47 (03/13 0636) ART MAP (Calculated) mm H mm Hg (03/12 1000) Temp: 37.9 C (100.2 F) (12/06 0800) Pulse: 83 (03/13 636) Respirations: 28 [...] 20,000 Units/ sodium bicarbonate 650 mg(#) PRN (Wood Polisher from Rx) Critical Care Vitals: ICP Monitoring: [...] discussed above. Jeancarlos Menendez MD Date: 03/13/[phone] Associated attestation - Bakari Wu MD - 03/13/2017 6:19 PM LIMEHOUSE WORKER Formatting of this note may be different [...] with Dr. Menendez and the [facility] team. I agree with the objective findings [...] name: Bakari Wu MD Date: 03/13/2017 * Miguel Angel Jaime MD - 03/13/2017 7:03 AM LIMEHOUSE WORKER Formatting of this note may be different from the original. Neurosurgery Progress Note SUBJECTIVE: No events overnight. Exam not as good as yesterday this morning. OBJECTIVE: Vital Signs: 24 Hour Range BP: (115)/(50) ABP: (106-155)/(41-131) ART MAP (Calculated) mm Hg: [73 mm Hg-92 mm Hg] Temp: [36.9 C (98.5 F)-37.7 C (99.9 F)] Pulse: [58-83] Respirations: [13 PER MINUTE-28 PER MINUTE] SpO2: [90 %-100 %] O2 Delivery: Endotracheal Tube (Oral) Intubated, sedation held Right gaze preference Not following commands Surgical fontanel soft ASSESSMENT/PLAN: 51 y.o. male s/p craniotomy x 2 for repair of right MCA aneurysm 03/10/2017 Active Hospital Problems Diagnosis 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HCC) Added automatically from request for surgery [id number] IVH (intraventricular hemorrhage) (HCC) Intraparenchymal hematoma of brain (HCC) Subarachnoid bleed (HCC) Continue close observation and challenging for extubation Keppra (renally dosed; large dose for him), nimotop CTA/CTP Consider additional AED/EEG Prophylaxis: A)GI: PPI B) Lines: Yes; Arterial Line; Indication: Frequent blood draws; Location: Radial Central Line; Indication: Frequent blood draws; Type: Subclavian, triple lumen C) Urinary Catheter: No D) Antibiotic Usage: Yes; Infection present or suspected: drainppx E) VTE: Pharmacological prophylaxis; Contraindication: Bleeding risk; recent surgery and Mechanical prophylaxis; Sequential compression device F) Restraints: Patient assessed for need for restraints. Miguel Angel Jaime MD [id number] Please call [phone] with any questions. 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 Outcome uncertain, but we will continue full ICU and neurosurgical management. * Bakari Wu - 03/12/2017 11:05 PM LIMEHOUSE WORKER Formatting of this note may be different [...] 03/09/2017 Added automatically from request for surgery [id number] Naren Dickens a 51 y.o.malewith PMH of [...] 1000mg daily after dialysis daily - Nimotop [id number] - Consider 1:1 fluid replacement - TCDs Daily - Neuro-ICU monitoring, neurochecks q 1 hrs Sedation/Pain Management: Yes - Precedex drip for sedation - Fentanyl PRN - Assess for delirium daily Cardiac: HTN, HLD - SBP goal: 120-160 - MAP goal > 65 - Cardene drip to meet SBP goal, PRN hydralazine, labetalol - EKG with SR, LVH - 03/11 Restart GREENKEEPER minoxidil and metoprolol BID - 03/11 ECHO [...] Potassium goal >4.0 mEq/L Prophylaxis Review: A) GI:K4Qppkkbl B) Lines:Yes; Arterial Line; Indication: Continuous BP [...] Weight: 108.8 kg (239 lb 13.8 oz) (12/05 1603) ABP: (114-155)/(47-131) ART MAP (Calculated) mm [...] 20,000 Units/ sodium bicarbonate 650 mg(#) PRN (Wood Polisher from Rx) Critical Care Vitals: ICP Monitoring: [...] hours) Intake/Output Summary (Last 24 hours) at 03/12/172304 Last data filed at 03/12/170 Gross per 24 hour Intake 1831.73 ml [...] (Last 24 hours): Glucose: (!) 151 (03/12/17 3384) POC Glucose (Download): (!) 139 (03/12/17 1714) Radiology and Other Diagnostic Procedures Review: all noted Bakari Wu Date: 03/12/[phone] * Nicolas Mclaughlin MD - 03/12/2017 5:00 PM LIMEHOUSE WORKER Brief Pulmonary Progress Note Due to required [...] Tracie Mitchell MD - 03/12/2017 4:52 PM LIMEHOUSE WORKER Formatting of this note may be different [...] for dialysis needs Tracie Mitchell MD Pager [phone] Subjective Naren Mayfield is a 51 y.o. [...] 20,000 Units/ sodium bicarbonate 650 mg(#) PRN (Wood Polisher from Rx), sodium chloride 0.9% (NS) IP Dialysis PRN, sodium chloride 0.9% (NS) IP Dialysis PRN, sodium chloride 0.9% (NS) IP Dialysis PRN Physical Exam Vital Signs: Last Filed In 24 Hours Vital Signs: 24 Hour Range Temp: 37.1 C (98.8 F) (03/12 1603) Pulse: 63 (03/12 160) Respirations: 14 PER [...] PO2ART 132* 72* Tracie Mitchell MD Pager [phone] * Marta Soto, OT - 03/12/2017 9:44 AM LIMEHOUSE WORKER OCCUPATIONAL THERAPY NO TREATMENT NOTE The patient was not seen due to: pt still with sheaths in place. Will follow up tomorrow as appropriate. Therapist: Marta Soto OT Date: 03/12/2017 * Faraz Hernandez MD - 03/12/2017 6:49 AM LIMEHOUSE WORKER Formatting of this note may be different from the original. Neurosurgery Progress Note SUBJECTIVE: Continues to improve neurologically. OBJECTIVE: Vital Signs: 24 Hour Range BP: (123)/(56) ABP: (120-160)/(51-69) ART MAP (Calculated) mm Hg: [74 mm Hg-92 mm Hg] Temp: [36.9 C (98.5 F)-38 C (100.4 F)] Pulse: [58-82] Respirations: [15 PER MINUTE-29 PER MINUTE] SpO2: [94 %-100 %] O2 Delivery: Endotracheal Tube (Oral) Intubated, sedation held Awake to voice, FC x 4 with equal strength Surgical fontanel soft Drain with serosanguinous output. ASSESSMENT/PLAN: 51 y.o. male s/p craniotomy x 2 for repair of right MCA aneurysm 03/10/2017 Active Hospital Problems Diagnosis 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HCC) Added automatically from request for surgery [id number] IVH (intraventricular hemorrhage) (HCC) Intraparenchymal hematoma of brain (HCC) Subarachnoid bleed (HCC) Continue close observation and challenging for extubation Continue CHET drain, ancef while in place. Kep, nimotop Prophylaxis: A)GI: PPI B) Lines: Yes; Arterial Line; Indication: Frequent blood draws; Location: Radial Central Line; Indication: Frequent blood draws; Type: Subclavian, triple lumen C) Urinary Catheter: No D) Antibiotic Usage: Yes; Infection present or suspected: drainppx E) VTE: Pharmacological prophylaxis; Contraindication: Bleeding risk; recent surgery and Mechanical prophylaxis; Sequential compression device F) Restraints: Patient assessed for need for restraints. Faraz Hernandez MD [id number] Please call [phone] with any questions. Associated attestation - Edgar Bee MD - 04/05/2017 10:33 AM LIMEHOUSE WORKER I have personally seen and examined the patient and developed the management plan as above. * Geoffrey Guerra, ROLO - 03/12/2017 6:44 AM LIMEHOUSE WORKER Formatting of this note may be different from the original. Neuroscience Critical Care Progress Note Naren Mayfield Admission Date: 03/09/2017 LOS: 3 days ASSESSMENT/PLAN Patient Active Problem List Diagnosis Date Noted IVH (intraventricular hemorrhage) (HCC) 03/09/2017 Intraparenchymal hematoma of brain (HCC) 03/09/2017 Subarachnoid bleed (HCC) 03/09/2017 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HCC) 03/09/2017 Added automatically from request for surgery [id number] Naren Mayfieldis a 51 y.o.malewith PMH of [...] 1000mg daily after dialysis daily - Nimotop [id number] - Consider 1:1 fluid replacement - TCDs Daily - Neuro-ICU monitoring, neurochecks q 1 hrs Sedation/Pain Management: Yes - Precedex drip for sedation - Fentanyl PRN - Assess for delirium daily Cardiac: HTN, HLD - SBP goal: 120-160 - MAP goal > 65 - Cardene drip to meet SBP goal, PRN hydralazine, labetalol - EKG with SR, LVH - 03/11 Restart GREENKEEPER minoxidil and metoprolol BID - 03/11 ECHO [...] Potassium goal >4.0 mEq/L Prophylaxis Review: A) GI:I2Ygwlqyo B) Lines:Yes; Arterial Line; Indication: Continuous BP [...] (not recorded) Vitals: 03/11/17 1000 03/11/17 1400 03/11/178 Weight: 118.3 kg (260 lb 12.9 oz) [...] appearance: well-developed, cooperative and mild distress Neurologic: [facility] coma score: E: 3 M: 6 V: [...] consulted teams Geoffrey Guerra, ROLO Date: 03/12/[phone] * Bakari Wu - 03/11/2017 6:00 PM LIMEHOUSE WORKER Formatting of this note may be different [...] 03/09/2017 Added automatically from request for surgery [id number] Naren Mayfield is a 51 y.o. male [...] 1000mg daily after dialysis daily - Nimotop [id number] - Consider 1:1 fluid replacement - TCDs [...] EKG with SR, LVH - 03/11 Restart GREENKEEPER minoxidil and metoprolol BID - ECHO this [...] Potassium goal >4.0 mEq/L Prophylaxis Review: A) GI:[id number] B) Lines:Yes; Arterial Line; Indication: Continuous BP [...] ART MAP (Calculated) mm H mm Hg (03/110) Temp: 37.3 C (99.2 F) (03/11 1600) [...] appearance: well-developed, cooperative and mild distress Neurologic: [facility] coma score: E: 3 M: 6 V: [...] Review: all noted Bakari Wintersamp Date: 03/11/[phone] * Carole Sloan, PT - 03/11/2017 3:31 PM LIMEHOUSE WORKER PHYSICAL THERAPY NOTE Discussed case with bedside RN, patient is currently requiring increased oxygen demands and not appropriate for physical therapy intervention. Physical therapy will continue to follow and provide intervention as indicated. Therapist: Carole Sloan, PT Date: 03/11/2017 * Marta Soto, OT - 03/11/2017 3:05 PM LIMEHOUSE WORKER OCCUPATIONAL THERAPY NO TREATMENT NOTE The patient was not seen due to: getting bedside test. Still on 80% FiO2, but likely to wean later per RN. Will follow up tomorrow. Therapist: Marta Soto, OT Date: 03/11/2017 * Melisa Dailey, RT - 03/11/2017 8:22 AM LIMEHOUSE WORKER No wean till after dialysis per RN team * Faraz Hernandez MD - 03/11/2017 6:56 AM LIMEHOUSE WORKER Formatting of this note may be different from the original. Neurosurgery Progress Note SUBJECTIVE: Exam with improvement after 2nd postop. OBJECTIVE: Vital Signs: 24 Hour Range BP: (151)/(73) ABP: (116-170)/(58-74) ART MAP (Calculated) mm Hg: [77 mm Hg-106 mm Hg] Temp: [37 C (98.6 F)] Pulse: [64-76] Respirations: [0 PER MINUTE-23 PER MINUTE] SpO2: [90 %-100 %] O2 Delivery: Endotracheal Tube (Oral) Intubated, sedation held Awake to voice, FC briskly right. Left upper with some finger movement to command but delayed Left lower with brisk withdrawal Surgical fontanel soft Drain with serosanguinous output. ASSESSMENT/PLAN: 51 y.o. male s/p craniotomy x 2 for repair of right MCA aneurysm 03/10/2017 Active Hospital Problems Diagnosis 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HCC) Added automatically from request for surgery [id number] IVH (intraventricular hemorrhage) (HCC) Intraparenchymal hematoma of brain (HCC) Subarachnoid bleed (HCC) Continue close observation. Plan for dialysis today. Continue CHET drain, ancef while in place. Will discuss any further neuro imaging With staff. Kep, nimotop Prophylaxis: A)GI: PPI B) Lines: Yes; Arterial Line; Indication: Frequent blood draws; Location: Radial Central Line; Indication: Frequent blood draws; Type: Subclavian, triple lumen C) Urinary Catheter: No D) Antibiotic Usage: Yes; Infection present or suspected: drainppx E) VTE: Pharmacological prophylaxis; Contraindication: Bleeding risk; recent surgery and Mechanical prophylaxis; Sequential compression device F) Restraints: Patient assessed for need for restraints. Faraz Hernandez MD [phone] Please call [phone] with any questions. * Geoffrey Guerra, UNDERWATER HUNTER - 03/11/2017 6:11 AM LIMEHOUSE WORKER Formatting of this note may be different from the original. Neuroscience Critical Care Progress Note Naren Mayfield Admission Date: 03/09/2017 LOS: 2 days ASSESSMENT/PLAN Patient Active Problem List Diagnosis Date Noted IVH (intraventricular hemorrhage) (HCC) 03/09/2017 Intraparenchymal hematoma of brain (HCC) 03/09/2017 Subarachnoid bleed (HCC) 03/09/2017 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HCC) 03/09/2017 Added automatically from request for surgery [id number] Naren Mayfield is a 51 y.o. male [...] 1000mg daily after dialysis daily - Nimotop [id number] - Consider 1:1 fluid replacement - TCDs [...] EKG with SR, LVH - 03/11 Restart GREENKEEPER minoxidil and metoprolol BID - ECHO this [...] Potassium goal >4.0 mEq/L Prophylaxis Review: A) GI:[id number] B) Lines:Yes; Arterial Line; Indication: Continuous BP [...] 500) Temp: 37 C (98.6 F) (03/11 040) Pulse: 73 (03/11 0500) Respirations: 23 PER MINUTE (03/110) SpO2: 100 % (03/11 500) O2 Delivery: [...] of care with consulted teams. Geoffrey Resendiz Emanuelfrankkimberlee, UNDERWATER HUNTER Date: 03/11/[phone] * Tonia Lopes MD - 03/10/2017 9:02 PM LIMEHOUSE WORKER Formatting of this note may be different [...] Moi Sol RN - 03/10/2017 8:58 PM LIMEHOUSE WORKER Patient came from OR and arrived in [...] with RT and resource nurse. * Saeid Thompson RN - 03/10/2017 8:42 PM LIMEHOUSE WORKER Patient transported to CT on the monitor, on the vent with RT. Physician with the patient during transport. Transported without incident. After CT scan the patient was transported to OR with anesthesia assuming care. * Courtney Dale MD - 03/10/2017 5:01 PM LIMEHOUSE WORKER Pulmonary service consulted for L pleural effusion at 8:30 am. Unable to see the patient all day as he has been in the OR since 7 am and has not returned. Pulmonary consult service will see the patient in the AM. Please page [phone] if stat consult required overnight. Courtney Dale MD, M.Sc. PGY4 Pulmonary and Critical Care Fellow Pager: [phone] * Tracie Mitchell MD - 03/10/2017 1:51 PM LIMEHOUSE WORKER Renal service consulted for ESRD. Unable to see patient as he has been in the OR since morning. Will see patient in AM unless acutely needed. Please obtain a BMP after return from OR * Yesenia Yoon, PT - 03/10/2017 9:31 AM LIMEHOUSE WORKER PHYSICAL THERAPY NOTE Physical therapy orders received and appreciated. Patient to OR today for right pterional craniotomy for clipping of MCA aneurysm. PT will follow up 03/11 and provide physical therapy intervention as indicated. Therapist: Yesenia Yoon, PT Date: 03/10/2017 * Brandy Posada, OT - 03/10/2017 9:10 AM LIMEHOUSE WORKER OCCUPATIONAL THERAPY NOTE OT orders received and appreciated. Pt to OR for procedure this date. OT will follow up tomorrow for evaluation/treatment as indicated. Therapist: Brandy Posada, ERICKR/L 3806 Date: 03/10/2017 * Moi Sol RN - 03/10/2017 8:25 AM LIMEHOUSE WORKER Patient started to be prepared for OR at 0730. Patient left room at 0815. Patient taking via bed with STONE UNLOADER's and RT. No issues during this process. This RN was not able to get a full assessment done before the patient was taken to OR. * Rosie Tanner APRN - 03/10/2017 6:32 AM LIMEHOUSE WORKER Formatting of this note may be different from the original. Neuro Critical Care Progress Note Naren Chaparro Admission Date: 03/09/2017 LOS: 1 day Full Code ASSESSMENT/PLAN Patient Active Problem List Diagnosis Date Noted IVH (intraventricular hemorrhage) (HCC) 03/09/2017 Intraparenchymal hematoma of brain (HCC) 03/09/2017 Subarachnoid bleed (HCC) 03/09/2017 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HCC) 03/09/2017 Added automatically from request for surgery [id number] Naren Mayfield is a 51 y.o. male [...] EKG with SR, LVH - Will add GREENKEEPER medications when verified - ECHO this AM Respiratory: Pleural effusion Date of Intubation: 12/2/17 Reason: Airway protection - AC 450/50%// - ABG pending - OSH CXR with [...] goal >4.0 mEq/L Prophylaxis Review: A) GI: F2Rntqawk B) Lines: Yes; Arterial Line; Indication: Continuous BP monitoring; Location: Radial C) Urinary Catheter: Yes; Retain cunningham due to: Need for accurate Intake and Output D) Antibiotic Usage: No E) VTE: SCDs F) Isolation: NA G)Seizures: Keppra I) Restraints: Patient assessed for need for restraints. Disposition/Family: NEICU Primary service: NSG Consults: ERNIEU, Renal SUBJECTIVE Naren Mayfield is a 51 y.o. male. Overnight Events: No new events noted. Patient sedated, to OR today OBJECTIVE Vital Signs: Last Filed Vital Signs: 24 Hour Range BP: 127/89 (03/09 2030) ABP: 132/67 (03/10 455) ART MAP (Calculated) mm H mm Hg (03/09 1930) Temp: 36.6 C (97.8 F) (03/10 0000) Pulse: 68 (03/10 455) Respirations: 20 PER MINUTE (03/10 044) SpO2: 98 % (03/10 455) O2 Delivery: [...] (253 lb 12 oz), SpO2 98 %. [facility] coma score: E: 3 - Opens eyes [...] radiologic and diagnostic procedures reviewed. Rosie Tanner, UNDERWATER HUNTER Date: 03/10/[phone] I spent 65 minutes managing the care [...] Tonia Lopes MD - 03/09/2017 6:22 PM LIMEHOUSE WORKER Formatting of this note may be different [...] Dayan Rollins RN - 03/09/2017 4:43 PM LIMEHOUSE WORKER Sedation physician present in room. Recent vitals and patient condition reviewed between sedating physician and nurse. Reassessment completed. Determination made to proceed with planned sedation. * Leslye Park RN ([place]) - 03/09/2017 3:30 PM LIMEHOUSE WORKER Pt arrived to room [id number] via EMS intubated and sedated. VSS, no [...] Angio. in this encounter H&P Notes * Faraz Hernandez MD - 03/10/2017 8:00 AM LIMEHOUSE WORKER Formatting of this note may be different from the original. Neurosurgery Pre-Operative Update Note Naren Mayfield has a complete pre-operative evaluation and is prepared for surgery. There are no new updates to the previous H&P. Consent signed. Will proceed with right pterional craniotomy for repair of aneurysm. Allergies: Review of patient's allergies indicates no known allergies. Hematology: Lab Results Component Value Date HGB 9.0 03/10/2017 HCT 25.5 03/10/2017 PLTCT 152 03/10/2017 WBC 8.6 03/10/2017 NEUT 86 03/10/2017 ANC 7.50 03/10/2017 ALC 0.30 03/10/2017 SUZI 8 03/10/2017 AMC 0.70 03/10/2017 ABC 0.00 03/10/2017 MCV 91.1 03/10/2017 MCHC 35.2 03/10/2017 MPV 8.7 03/10/2017 RDW 15.4 03/10/2017 and Coagulation: Lab Results Component Value Date PTT 31.9 03/09/2017 INR 1.3 03/09/2017 Blood Type: A POS Faraz Hernandez MD Neurosurgery Resident [id number] Please call [phone] with any questions. Associated attestation - Edgar Bee MD - 04/05/2017 10:28 AM LIMEHOUSE WORKER Complex ruptured aneurysm, not well-amenable to endovascular approach. Patient is not a healthy man at baseline, with multiple comorbidities, on dialysis, however, surgery is preferred to secure the aneurysm to protect from rehemorrhage. Family understands and elects to proceed. * Braden De Leon MD - 03/09/2017 3:30 PM LIMEHOUSE WORKER Formatting of this note may be different [...] q4 - discussed with staff Please page [phone] with any questions Devon Castro MD [id number] __ Chief Complaint: MCA aneurysm History of [...] 1800) Temp: 36.9 C (98.4 F) (03/09 184) Pulse: 71 (03/09 1930) Respirations: 22 PER [...] Dima Glasgow RN - 03/26/2017 9:00 AM LIMEHOUSE WORKER Associated Order(s): HEMODIALYSIS INPATIENT; HEMODIALYSIS DATE 847: Consent confirmed, assessment complete and charted. Patient's LFA AV Fistula was accessed with two #15 fistula needles upon the first attempt. Treatment was started at this time. 1247: Blood returned, needles de-cannulated, bleeding stopped in <10min. Treatment completed at this time. * Dharmesh Navarro, RN - 03/23/2017 3:22 PM LIMEHOUSE WORKER Associated Order(s): HEMODIALYSIS INPATIENT; HEMODIALYSIS DATE Arrived at patient room C 5112 and treatment started at 1040 am. Vital signs stable. Patient tolerating treatment well. Treatment complete at 1444 pm. Vital signs stable. Mchenry removed from L AV fistula and site healed. Report given to unit nurse. Left patient in room C 5112 in stable condition. * Hetal Roberts RN - 03/21/2017 8:44 AM LIMEHOUSE WORKER Associated Order(s): HEMODIALYSIS INPATIENT; HEMODIALYSIS DATE 06 Arrived in Pt's RM [id number] with portable R/O and diaysis machine/supply cart. ICU staff cleaning Pt from BM. [phone] R/O rinsing/cool down cycle in progress. Pt [...] Geoffrey Farias RN - 03/19/2017 11:57 AM LIMEHOUSE WORKER Associated Order(s): HEMODIALYSIS INPATIENT; HEMODIALYSIS DATE Hemodialysis [...] Mihai Aly RN - 03/18/2017 2:45 PM LIMEHOUSE WORKER Associated Order(s): HEMODIALYSIS INPATIENT; HEMODIALYSIS DATE Formatting of this note may be different from the original. 24 Status: Active Ordering user: Nir Timmons MD 03/17/171224 Ordering provider: Nir Timmons MD Authorized by: Nir Timmons MD Frequency: Once 03/17/17 1800 - 1 Occurrences Released by: Patti Garcia RN 03/17/17 9082 Questions: Date Hemodialysis to be performed: 03/18/2017 [...] 4 liters. Map remains over 80. Karen DAEV received report. * Vernell Corbin MD - 03/18/2017 1:01 PM LIMEHOUSE WORKER VIDEO EEG REPORT Name: Naren Mayfield Date [...] on the right side. Vernell Corbin MD Artillery Maintenance Supervisor of Neurology [facility] * Bakari Wu - 03/16/2017 9:43 PM LIMEHOUSE WORKER Procedure(s): THORACENTESIS ED Procedure Note - Attempted [...] I personally performed the procedure myself. Bakari Bryce * Mihai Aly RN - 03/16/2017 2:38 PM LIMEHOUSE WORKER Associated Order(s): HEMODIALYSIS INPATIENT; HEMODIALYSIS DATE Formatting [...] bed. 1530 B/P in the 200s systolic. tool and die engineer giving meds. UF increased to 3.[address] Cardona. 1615 BP remains above 200 systolic. ICU nurse addressing B/P. 1745 Dialysis complete. UF total was 4 liters. Phi DAVE given report. * Vernell Corbin MD - 03/15/2017 9:22 AM LIMEHOUSE WORKER VIDEO EEG REPORT Name: Naren Mayfield Date [...] on the right side. Vernell Corbin MD Artillery Maintenance Supervisor of Neurology [facility] * Marcos Solorzano MD - 03/14/2017 4:26 PM LIMEHOUSE WORKER Procedure(s): THORACENTESIS ED Pre-Procedure Diagnose(s): Pleural effusion [...] present throughout the entire procedure Caroline Davila, DO Pulmonary and Critical Care Fellow ATTESTATION I was present for the procedure performed by Dr. Davila, Pulmonary Critical Care Fellow. [facility] 03-14-17 Staff name: Marcos Solorzano MD Date: 03/15/2017 * Vernell Corbin MD - 03/14/2017 9:22 AM LIMEHOUSE WORKER VIDEO EEG REPORT Name: Naren Mayfield Date [...] on the right side. Vernell Corbin MD Artillery Maintenance Supervisor of Neurology [facility] * Germaine Covarrubias, TENZIN - 03/14/2017 7:27 AM LIMEHOUSE WORKER Associated Order(s): HEMODIALYSIS INPATIENT; HEMODIALYSIS DATE lining mechanic in patient's room. Patient sedated and on [...] Vernell Corbin MD - 03/13/2017 5:44 PM LIMEHOUSE WORKER EEG REPORT Date of service: 03/13/2017 Name: [...] on the right side. Vernell Corbin MD Artillery Maintenance Supervisor of Neurology [facility] * Vandana Delaney, TENZIN - 03/12/2017 12:33 PM LIMEHOUSE WORKER Associated Order(s): HEMODIALYSIS INPATIENT; HEMODIALYSIS DATE 1233- [...] updated on pt. Pt remains in room [id number] at this time. * Bailee Gann RN - 03/11/2017 10:09 AM LIMEHOUSE WORKER Associated Order(s): HEMODIALYSIS INPATIENT 0900 Arrived in [id number] to set up for dialysis. Assessment completed and documented. Care of pt, respirator and all lines remains with his primary 4TH GRADE TEACHERTENZIN Jean. Left AVF assessed and found to [...] and paper tape. Report given to primary 4TH GRADE TEACHERTENZIN Jean. * Dharmesh Navarro RN - 03/10/2017 9:10 PM LIMEHOUSE WORKER Associated Order(s): HEMODIALYSIS DATE Arrived on unit and contacted unit nurse for patient at 2014 pm. Patient had cranial bleed and sent to CT and then to OR for second time. Manager Of Radiology contacted and said patient may be done the next morning. Unit nurse also said patient may still have needles from outpatient dialysis unit in fistula. Patient already in OR. * Maxim Chauhan MD - 03/10/2017 9:45 AM LIMEHOUSE WORKER Pre-Procedure Diagnose(s): Aneurysm rupture of middle cerebral [...] a secure HIPAA-compliant network. Maxim Chauhan MD Resin Painter [facility] Epilepsy [place] Department of Neurology in this encounter Consult Notes * Aleksandr Young MD - 03/19/2017 10:34 AM LIMEHOUSE WORKER Associated Order(s): CONSULT REHABILITATION MEDICINE PHYSICIAN Formatting of this note may be different from the original. Physical Medicine & Rehabilitation Consult Note Date of Service: 03/19/2017 Naren Mayfield is a 51 y.o. male. : 1965 Primary Insurance: MEDICARE Secondary Insurance: [facility] MEDICAID [place] Tertiary Insurance: Financial Class: Medicare Date of [...] Cognitive impairment Pt would benefit from formal MEDTRONICS TECHNICIAN cognitive evaluation to determine specific domains of cognitive dysfunction at this or next level of care. Aleksandr Young MD Rehab Consult Pager: [phone] History of Present Illness Hospital Course: Mr. Naren Mayfield is a 51 yo M with a hx of DM, HTN, HLD and renal failure on HD transferred to [facility] from OSH on 03/09 with concern for [...] CRANIOTOMY performed by Edgar Bee MD at [facility] OR/Periop INTRACRANIAL ANEURYSM REPAIR Right 03/10/2017 Rt pterional craniotomy for clipping of MCA aneurysm performed by Edgar Bee MD at [facility] OR/Periop Family\\Social History Social History Social [...] 20,000 Units/ sodium bicarbonate 650 mg(#) PRN (Wood Polisher from Rx), sodium chloride 0.9% (NS) IP [...] Richard Mackenzie MD - 03/19/2017 10:02 PM LIMEHOUSE WORKER Rehabilitation Medicine Attending Physician Attestation: Agree with [...] complexity and goals with PT, OT, and MEDTRONICS TECHNICIAN for acute inpatient rehabilitation. Recommend continued therapies, while the primary team continues to monitor and manage acute concerns for the patient while addressing dysphagia and adequate nutritional access. Discussed with the patient and will discuss with our planning coordinator. Will continue to follow for medical stability/ appropriateness for discharge. Thank you for this consultation. Please call with questions/concerns. I personally performed rubin portions of the history and exam. I discussed the case with the resident and concur with the resident's documentation of history, physical assessment and treatment plan unless otherwise noted. Richard Mackenzei MD * Janeen Morse - 03/12/2017 3:10 PM LIMEHOUSE WORKER Associated Order(s): CONSULT DIETITIAN CLINICAL NUTRITION Clinical Nutrition Assessment Summary Nutrition Assessment of Patient: BMI Categories Adult: Obesity Class II: 35-39.9 Malnutrition Assessment: (pending subjective information) Current Oral Intake: NPO Estimated Calorie Needs: 1850-2220kcal (25-30kcal/kg desired wt 74kg) Estimated Protein Needs: 111-133g (1.5-1.8g/kg desired wt 74kf) Oral Diet Order: NPO Current EN Order: Novasource Renal @ 40ml/hr with 30ml water bolus [id number]. This provides 1920kcal, 87g, and 871ml free [...] complete. Unable to see pt today, RD record label internship to follow up tomorrow. Pt received dialysis [...] of renal- dialysis and diabetic consistent carb [id number] (60g CHO/meal). Intervention / Plan: Consult complete for EN recommendations Monitor labs, weight trends, EN intake/tolerance, GI health Will obtain further subjective data on follow up Nutrition Diagnosis: Nutrition Diagnosis: Inadequate protein-energy intake Etiology: SAH, s/p intubation Signs & Symptoms: 2 days w/o EN support Goals: EN tolerated and meeting >75% of nutritional needs Time Frame: Within 72 Hours Janeen Morse, Clinical Informatics Director *[id number] Associated attestation - Crystal Mayen RD - 03/12/2017 3:21 PM LIMEHOUSE WORKER Agree with record label internship's initial assessment/recommendations as summarized. Malnutrition assessment and updated recommendations to be completed at next visit as feasible. If patient unable to extubate soon, hypocaloric/high protein feeding goals should be initiated. Crystal Mayen RD, LD, CNSC *[phone] * Yuly Meléndez MD - 03/11/2017 5:02 PM LIMEHOUSE WORKER Associated Order(s): CONSULT PULMONARY/CRITICAL CARE PHYSICIAN Formatting [...] by Edgar Bee MD at [facility] OR/Periop Social History Social History Marital status: [...] Vital Signs: 24 hour Range BP: 123/56 (03/118) Temp: 37.3 C (99.2 F) (03/11 1600) [...] Pertinent radiology reviewed. Nicolas Mclaughlin MD Pager [phone] * Tracie Mitchell MD - 03/10/2017 10:43 AM LIMEHOUSE WORKER Associated Order(s): CONSULT NEPHROLOGY PHYSICIAN Formatting of [...] - Daily weights Tracie Mitchell MD Pager [phone] History Reason for Consult: ESRD HPI: Naren [...] 1.5 years ago and he dialyses in [place], [place]. He usually dialyses T// but dialysed 4 times last week as he was way above dry weight. Past Medical History: Diagnosis Date DM (diabetes mellitus) (HCC) HLD (hyperlipidemia) HTN (hypertension) Renal failure Past Surgical History: Procedure Laterality Date INTRACRANIAL ANEURYSM REPAIR N/A 03/10/2017 REPAIR ANEURYSM CRANIOTOMY performed by Edgar Bee MD at [facility] OR/Periop INTRACRANIAL ANEURYSM REPAIR Right 03/10/2017 Rt pterional craniotomy for clipping of MCA aneurysm performed by Edgar Bee MD at [facility] OR/Periop Family History Problem Relation Age of [...] clubbing Pulse: 2+ bilaterally Labs: Recent Labs 03/09/17184203/10/1732403/10/17204903/11/17 0355 NA 132* 134* 133* 135* K [...] 6.0* 6.1* 8.1* 9.1* Recent Labs 03/09/17 18403/10/1732403/10/17204903/11/17 0050 03/11/17 0355 [...] Pertinent radiology reviewed. Tracie Mitchell MD Pager [phone] * Rosie Tanner, UNDERWATER HUNTER - 03/09/2017 4:28 PM LIMEHOUSE WORKER Associated Order(s): CONSULT NEURO CRITICAL CARE PHYSICIAN Formatting of this note may be different from the original. Neuro Critical Care Consult Note Naren Mayfield Admission Date: 03/09/2017 LOS: 0 days Full Code ASSESSMENT/PLAN Patient Active Problem List Diagnosis Date Noted IVH (intraventricular hemorrhage) (HCC) 03/09/2017 Intraparenchymal hematoma of brain (HCC) 03/09/2017 Subarachnoid bleed ([facility]) 03/09/2017 Naren Mayfield is a [...] Cognitive impairment suspected? Yes - if yes, MEDTRONICS TECHNICIAN cognitive evaluation ordered? Not at this time, will evaluate when extubated Sedation/Pain Management: Yes - Propofol - Assess for delirium daily Cardiac: - SBP goal: < 140 - MAP goal > 65 - Cardene drip to meet SBP goal - EKG with SR - Will add GREENKEEPER medications when verified Respiratory: Date of Intubation: 03/09/17 Reason: Airway protection - AC 400/40%/21/08 - OSH CXR with near complete opacification [...] goal >4.0 mEq/L Prophylaxis Review: A) GI: [id number] B) Lines: Yes; Arterial Line; Indication: Continuous [...] Code Decision Maker: Self and sister Mary [phone] Immunizations (includes history and patient reported): There [...] Scale 0-10 (Pain 1): (not recorded) Vitals: 03/09/171524 Weight: 115.1 kg (253 lb 12 oz) [...] data in the 24 hours ending 03/09/17 5524 Physical Exam: Blood pressure 127/80, pulse 70, temperature 36.9 C (98.4 F), height 172.7 cm (68"), weight 115.1 kg (253 lb 12 oz), SpO2 94 %. [facility] coma score: E: 4 - Opens eyes [...] diagnostic procedures reviewed. Rosie Tanner APRN Date: 03/09/[phone] I spent 65 minutes managing the care [...] - Yesenia Stockton - 03/26/2017 11:21 AM LIMEHOUSE WORKER Case Management Progress Note NAME:Naren Mayfield :[birth year] AGE: 51 y.o. ADMISSION DATE: 03/09/2017 DAYS ADMITTED: LOS: 17 days Todays Date: 03/26/2017 Plan REJI met with the neurosurgery team regarding POC and d/c planning. Pt is ready to d/c today, facility has accepted, since SW was able to get transportation arranged for dialysis. Pt going to [facility] today at 3:00 via [employer] ([phone]), following his dialysis today Interventions ? Support Mary Mayfield, pt's sister is primary source of support. ? Info or Referral REJI called [facility] Medicaid to set up transportation ([phone]; where's my ride is [phone]) at d/c; [facility] denied. [facility] also originally denied dialysis apt transportation, but REJI was eventually able to obtain authorization. Pt's transport to and from Dialysis apts from [facility], are as follows: Pt's Medicaid ID is [id number] 03/28/17 9:00am apt cotton picker operator @ [address] [facility] Confirmation#[id number] 03/30/17 9:00am cotton picker operator @8 Confirmation #[id number] 04/02/17 9am apt, cotton picker operator @ 8:00am from [facility] to [facility] Confirmatoin #[id number] 04/04/17 9am apt from [facility] (dupligraph operator @ 8:00am) Confirmation #[id number] 04/06/17 9am apt from [facility] (dupligraph operator @ 8:00am) Confirmation #[id number] 04/09/17 9am apt from [facility] (dupligraph operator @ 8:00am) Confirmation #[id number] 04/11/17 9am apt from [facility] (dupligraph operator @ 8:00am) Confirmation #[id number] 04/13/17 9am apt from [facility] to [facility] (dupligraph operator @ 8:00am) Confirmation #[id number] ? Discharge Planning Discharge Planning: OP HD or PD Pt planning on going to [facility], [facility] today at 3:00 via [employer] W/C Van ([phone]) [facility] [address] [place], [place] [address] ? Medication Needs ? Financial ? Legal ? Other Disposition ? Discharge Preparation When ready for discharge, who will be responsible for transporting?: [facility] Type of Residence: Private residence Patient expects to be discharged to: Rehab facility Was the patient receiving home care services?: No ? Expected Discharge Expected Discharge Date: 03/25/17 ? Discharge Disposition Disposition: Inpatient Rehab Facility (IRF) Inpatient Rehab: Via [facility] ([place], [place]) ([phone]) ? Next Level Care Yesenia Stockton [facility] *6246 * Case Mgmt DC Plan - Kavitha Pimentel - 03/26/2017 10:04 AM LIMEHOUSE WORKER Request to Arrange Patient Transportation Received request from Yesenia Stockton [facility] to arrange transportation for pt to transfer to Via [facility]; [address] [place] [address] today. 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 Cost of transport: $325 to be paid by [facility] Slate Worker For further assistance please contact [facility] *[phone] * Care Plan - Consuelo Cox RN - 03/26/2017 12:33 AM LIMEHOUSE WORKER Problem: Neurological Status, Impaired/Altered Goal: Progress toward [...] - Kavitha Pimentel - 03/25/2017 11:32 AM LIMEHOUSE WORKER Request to Arrange Patient Transportation Received request from Yesenia MENDOZA to arrange transportation for pt to transfer to [facility], [address] [place] [address] today. 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 Cost of transport: $325 to be paid by [facility] per [facility] Patient Transportation Quote Request Received request from MAE Rossi to check on quotes for wheelchair van to transfer pt to [facility], [address] [place] [address] [employer] [phone]: $325 Assisted Transport [phone]- $480 Kavitha Pimentel Slate Worker For further assistance please contact [facility] *[phone] * Case Mgmt DC Plan - Yesenia Stockton - 03/25/2017 11:28 AM LIMEHOUSE WORKER Case Management Progress Note NAME:Naren Mayfield :[birth year] AGE: 51 y.o. ADMISSION DATE: 03/09/2017 DAYS ADMITTED: LOS: 16 days Todays Date: 03/25/2017 Plan REJI met with the neurosurgery team regarding POC and d/c planning; pt is ready to d/c today. However, Via [facility] will only accept if pt's dialysis transport has been arranged for pt. ([facility]ia [facility] denied without transportation arrangement for pt's dialysis). Interventions ? Support ? Info or Referral REJI called [facility] Community Plan to set up w/c transport [phone]; member service CM authorization requested for pt's dialysis transportation. Mihir to call SW back with confirmation ([phone]); 16:30 03/25/17. REJI also called [employer] [facility] in [place] requesting transport assistance. 03/28/17 9:00am apt cotton picker operator @ 8 From [facility] Confirmation# 03/30/17 9:00am cotton picker operator @8 Confirmation # 04/01/17 9am apt, cotton picker operator @ 8:00am from [facility] Confirmatoin # 04/03/17 9am apt from [facility] (dupligraph operator @ 8:00am) Confirmation # 04/05/17 9am apt from [facility] (dupligraph operator @ 8:00am) Confirmation # 04/07/17 9am apt from [facility] (dupligraph operator @ 8:00am) Confirmation # 04/09/17 9am apt from [facility] (dupligraph operator @ 8:00am) Confirmation # 04/11/17 9am apt from [facility] (dupligraph operator @ 8:00am) Confirmation # 04/13/17 9am apt from [facility] (dupligraph operator @ 8:00am) Confirmation # [facility] will not transport pt from Hospital to [facility]. REJI discussed this with the @ [facility] ? Discharge Planning Discharge Planning: OP HD or PD Set up transportation for pt's dialysis. Pt going to [facility] as soon as w/c van can be arranged [facility] in [place] - [facility] [address] [place], [place] [address] [place] [address] [facility] [address] [place], [place] [address] ? Medication Needs ? Financial ? Legal ? Other Disposition ? Discharge Preparation When ready for discharge, who will be responsible for transporting?: sister Type of Residence: Private residence Patient expects to be discharged to: Rehab facility Was the patient receiving home care services?: No ? Expected Discharge Expected Discharge Date: 03/25/17 ? Discharge Disposition ? Next Level Care Yesenia Stockton, [facility] *6246 * Care Plan - Patito Moulton RN - 03/25/2017 12:19 AM LIMEHOUSE WORKER Problem: Neurological Status, Impaired/Altered Goal: Progress toward [...] Consuelo Cox RN - 03/24/2017 3:07 AM LIMEHOUSE WORKER Problem: Neurological Status, Impaired/Altered Goal: Progress toward [...] - Yesenia Stockton - 03/22/2017 4:17 PM LIMEHOUSE WORKER Case Management Progress Note NAME:Naren Mayfield :[birth year] AGE: 51 y.o. ADMISSION DATE: 03/09/2017 DAYS ADMITTED: LOS: 13 days Todays Date: 03/22/2017 Plan SW met with the neurosurgery team regarding POC and d/c planning. Pt may be ready to transition to IPR as early as Saturday. Interventions ? Support Pt's sister, Mary Mayfield ([phone]) is pt's primary support. She is working with [facility] housing to try and get him his [...] Calista Maldonado with the housing authority in [place] ( [phone]; [phone]); per pt and pt's sister's request. ? Discharge Planning Discharge Planning: OP HD or PD SW sent a referral to [facility] in [place], but they denied acceptance , stating that pt needs to have a d/c plan from there. SW discussed this with Mary, and she stated that she will not let him be homeless--that she can take him back in to her home, until she can get the housing voucher approved. SW will review this with [facility] clinical liaison. [facility] [address] [place] [address] ? Medication Needs ? Financial ? Legal ? Other Disposition ? Discharge Preparation When ready for discharge, who will be responsible for transporting?: sister Type of Residence: Private residence Patient expects to be discharged to: Rehab facility Was the patient receiving home care services?: No ? Expected Discharge Expected Discharge Date: 03/25/17 ? Discharge Disposition ? Next Level Care Yesenia Stockton, [facility] *6246 * Procedures (Immed Post or Bedside) - Elaine Nicholson APRN - 03/21/2017 5: 47 PM LIMEHOUSE WORKER Formatting of this note may be different from the original. Neuro Critical Care Transcranial Doppler Ultrasound Report Naren Mayfield [id number] 51 y.o. male Diagnosis: SAH Indication for TCD: Evaluation for cerebral vasospasm Blood pressure 161/89, pulse 79, temperature 36.5 C (97.7 F), height 172.7 cm (68"), weight 103.2 kg (227 lb 8.2 oz), SpO2 94 %. Hgb: 10.2gm/dl Intake/Output Summary (Last 24 hours) at 03/21/17 3627 Last data filed at 03/21/17 [address] [...] team Staff name: Elaine Nicholson APRN Date: 03/21/2017 Associated attestation - Derrell Bowers MD - 03/22/2017 7:55 AM LIMEHOUSE WORKER I have personally reviewed the study. Bilaterally elevated LRs but mean MCA velocities < 120, do not meet criteria for vasospasm. Follow up study recommended. Derrell Bowers MD 03/22/2017 7:55 AM * Case Mgmt DC Plan - Kavitha Pimentel - 03/20/2017 3:54 PM LIMEHOUSE WORKER Request to Send Referral Received request from Yesenia Stockotn [facility] to send referral to the following facility: Via [facility] [address] [place] [id number] Kavitha Pimentel Slate Worker For additional assistance please contact [facility] *[phone] * Case Mgmt DC Plan - Diana Scott RN - 03/20/2017 3:33 PM LIMEHOUSE WORKER Case Management Progress Note NAME:Naren Mayfield :[birth year] AGE: 51 y.o. ADMISSION DATE: 03/09/2017 DAYS ADMITTED: LOS: 11 days Todays Date: 03/20/2017 Plan Ongoing DC planning - Dialysis Center update Interventions ? Support ? Info or Referral ? Discharge Planning Discharge Planning: OP HD or PD - NCM updated Danita at [place], [place], ph [phone] / fax [phone] on patient's discharge planning (likely IPR, hopefully in [place], next week). NCM will contact [facility] again upon discharge so that they [...] Disposition ? Next Level Care THANG Mack, industrial sewer Nurse Regrinder [phone] * Case Mgmt DC Plan - Yesenia Stockton - 03/20/2017 2:58 PM LIMEHOUSE WORKER Case Management Progress Note NAME:Naren Mayfield :[birth year] [...] kill himself if he loses his daughter. REJI asked 3x during the conversation whether not SW should consult psychology and pt denied need for psych support. REJI also notified bedside RN of SW's conversation. [...] pt appropriate, but prefers to go to [facility]. SW requested that the [facility] please send a referral for their [...] Disposition ? Next Level Care Yesenia Stockton, [facility] *6246 * Procedures (Immed Post or Bedside) - Rylee Arango APRN - 03/19/2017 12:17 PM LIMEHOUSE WORKER Formatting of this note may be different from the original. Neuro Critical Care Transcranial Doppler Ultrasound Report Naren Mayfield [id number] 51 y.o. male Diagnosis: SAH Indication for [...] to the neurosurgical team Staff name: Rylee Arango APRN Date: 03/19/2017 Associated attestation - Derrell Bowers MD - 03/19/2017 1:54 PM LIMEHOUSE WORKER Interval decrease in the MFV of left MCA, with slight increase in MFV of right MCAs. LRL 1.1; RLR 1.2. No sonographic evidence of vasospasm on this study. Derrell Bowers MD 03/19/2017 1:54 PM * Case Mgmt DC Plan - Yesenia Stockton - 03/18/2017 10:44 AM LIMEHOUSE WORKER Case Management Progress Note NAME:Naren Mayfield :[birth year] [...] to pt's positive UDS, SW has contacted [facility] and filed a report; family aware of SW's report. Pt has been accepted for HUD housing in [place] and was getting ready to move into his home just when he experienced the SAH. SW unsure what the status of his home currently is, but has offered support if letters re:pt's medical situation are needed. ? Info or Referral ? Discharge Planning Discharge Planning: OP HD or PD Rehab consult has been placed. Pt likely returning to [facility] ( [place] IPR). SW will watch to consult them as [...] Disposition ? Next Level Care Yesenia Stockton, [facility] *6246 * Procedures (Immed Post or Bedside) - Rosie Tanner APRN - 03/18/2017 5: 56 AM LIMEHOUSE WORKER Formatting of this note may be different from the original. Neuro Critical Care Transcranial Doppler Ultrasound Report Naren Mayfield [id number] 51 y.o. male Diagnosis: SAH Indication for [...] Derrell Bowers MD - 03/21/2017 6:12 PM LIMEHOUSE WORKER Elevated LR on left side 3.3, however mean flow velocity of L MCA is < 130 cm/ s. Could be an early finding of subsequent vasospasm. Right LR 1.6, normal velocities on right side. Follow up study recommended. Derrell Bowers MD 03/19/2017 1:50 PM * Critical Results - Karen Escalante RN - 03/17/2017 6:01 AM LIMEHOUSE WORKER Critical result or procedure called (document test and value, and read back): PO2 49 Time MD/GEOSPATIAL IMAGERY INTELLIGENCE ANALYST Notified: [id number] MD/GEOSPATIAL IMAGERY INTELLIGENCE ANALYST Name: Rosie Tanner APRN MD/GEOSPATIAL IMAGERY INTELLIGENCE ANALYST Response/Orders Given: Result thought to be in error. Orders given to redraw. * Procedures (Immed Post or Bedside) - Rosie Tanner APRN - 03/17/2017 5: 43 AM LIMEHOUSE WORKER Formatting of this note may be different from the original. Neuro Critical Care Transcranial Doppler Ultrasound Report Naren Mayfield [id number] 51 y.o. male Diagnosis: SAH Indication for [...] Deborah Lynn MD - 03/26/2017 2:57 PM LIMEHOUSE WORKER Formatting of this note may be different from the original. ATTESTATION: No evidence of vasospasm on this study. I have interpreted the results. Staff name: Deborah Lynn MD Date: 03/26/2017 * Care Plan - Mary Amezquita RN - 03/14/2017 6:40 PM LIMEHOUSE WORKER Problem: Infection, Risk of, Central Venous Catheter-Associated Bloodstream Infection Goal: Absence of CVC Associated Bloodstream infection Outcome: Goal Achieved Date Met: 03/14/17 Pt no longer has central line * Case Mgmt DC Plan - Yesenia Stockton - 03/14/2017 10:46 AM LIMEHOUSE WORKER Case Management Progress Note NAME:Naren Mayfield :[birth year] [...] Disposition ? Next Level Care Yesenia Stockton, [facility] *6246 * Procedures (Immed Post or Bedside) - Elaine Nicholson APRN - 03/14/2017 6: 46 AM LIMEHOUSE WORKER Formatting of this note may be different from the original. Neuro Critical Care Transcranial Doppler Ultrasound Report Naren Mayfield [id number] 51 y.o. male Diagnosis: SAH Indication for [...] to the neurosurgical team Staff name: Elaine Nicholson, ROLO Date: 03/14/2017 Associated attestation - Deborah Lynn MD - 03/26/2017 2:54 PM LIMEHOUSE WORKER Formatting of this note may be different from the original. ATTESTATION: Right TCDs not able to be obtained. Left sided study shows no evidence of vasospasm. I have interpreted the results. Staff name: Deborah Lynn MD Date: 03/26/2017 * Care Coordination-Inpatient - Vernell Corbin MD - 03/13/2017 6:56 PM LIMEHOUSE WORKER BRIEF VEEG NOTE First 30 min of EEG reviewed. Right PLEDs are seen. Will continue to monitor. 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 [...] with the aunt Torito. SW did call [facility] to report the positive drug screen. Incident: [id number] ? Info or Referral ? Discharge Planning [...] Disposition ? Next Level Care Yesenia Stockton, [facility] *6246 * Procedures (Immed Post or Bedside) - Suad Weems APRN - 03/13/2017 6: 16 AM LIMEHOUSE WORKER Formatting of this note may be different from the original. [facility] Neuroscience ICU Transcranial Doppler Ultrasound Report Naren Mayfield [id number] 51 y.o. male Diagnosis:SAH Indication for TCD: [...] Deborah Lynn MD - 03/14/2017 1:39 PM LIMEHOUSE WORKER Formatting of this note may be different from the original. ATTESTATION: Increased left LR concerning for vasospasm. No evidence of right-sided vasospasm on this study. I have interpreted the results. Staff name: Deborah Lynn MD Date: 03/14/2017 * Case Mgmt DC Plan - Yesenia Stockton - 03/12/2017 4:33 PM LIMEHOUSE WORKER Case Management Progress Note NAME:Naren Mayfield :[birth year] [...] children; 6 of whom live in the [facility]. ? Info or Referral none at this [...] Disposition ? Next Level Care Yesenia Stockton, [facility] *6246 * Case Mgmt DC Plan - Diana Scott RN - 03/12/2017 2:08 PM LIMEHOUSE WORKER Case Management Progress Note NAME:Naren Mayfield :[birth year] AGE: 51 y.o. ADMISSION DATE: 03/09/2017 DAYS ADMITTED: LOS: 3 days Todays Date: 03/12/2017 Plan Ongoing DC planning - Outpatient dialysis Interventions ? Support ? Info or Referral ? Discharge Planning Discharge Planning: OP HD or PD * NCM confirmed with dialysis center that patient obtains his dialysis T-Th-Sat at [place], [place], ph [phone] / fax [phone]. * This center is not part of [facility]; NCM sent [facility] referral, facesheet, H&P, renal consult, and dialysis report as of 03/12/17 to [facility] via [facility] fax function. * NCM will update [facility] as needed as DC planning evolves; patient may require an inpatient setting at discharge. ? Medication Needs ? Financial ? Legal ? Other Disposition ? Discharge Preparation ? Expected Discharge Expected Discharge Date: 03/22/17 ? Discharge Disposition ? Next Level Care THANG Mack, industrial sewer Nurse Regrinder [phone] * Procedures (Immed Post or Bedside) - Shannen Wilson, ROLO-GEOSPATIAL IMAGERY INTELLIGENCE ANALYST - 03/12/2017 1: 10 AM LIMEHOUSE WORKER Formatting of this note may be different from the original. Neuro Critical Care Transcranial Doppler Ultrasound Report Naren Mayfield [id number] 51 y.o. male Diagnosis: SAH Indication for [...] the neurosurgical team Staff name: Shannen Wilson APRN-GEOSPATIAL IMAGERY INTELLIGENCE ANALYST Date: 03/12/2017 Associated attestation - Deborah Lynn MD - 03/12/2017 11:55 AM LIMEHOUSE WORKER Formatting of this note may be different from the original. ATTESTATION: No evidence of vasospasm on this study. I have interpreted the results. Staff name: Deborah Lynn MD Date: 03/12/2017 * Case Mgmt DC Plan - Vandana Arce - 03/11/2017 2:38 PM LIMEHOUSE WORKER Formatting of this note may be different from the original. Case Management Admission Assessment NAME:Naren Mayfield :1965 AGE: 51 y.o. ADMISSION DATE: 03/09/2017 DAYS ADMITTED: LOS: 2 days Todays Date: 03/11/2017 Source of Information: Patient's nieceSim Plan Plan: CM Assessment, Assist PRN with SW/NC Services Covering SW reviewed EMR for plan [...] days. Prior to admit, pt reportedly attending T/Th/Sa HD at [facility], and was primarily transporting himself to/from HD appts. Emergency Contact No emergency contact information on file. Primary family support is pt's sister, Laura Mayfield -cell. Pt currently resides with his sister at [address] [place] [address]. DPOA None on file Transportation Does the [...] Laura, at the above listed address in [place], [place]. Per Sim, pt is primarily independent, [...] (Part B ) Secondary Insurance: Medicaid ([employer] Medicaid) Additional Coverage: RX ? Source of Income Source Of Income: SSDI ? Financial Assistance Needed? None identified at time of assessment Current/Previous Services ? PCP No primary care provider on file. ? DME DME at home: Single Point Cane ? Home Health Home Health: No ? HD or PD Undergoing hemodialysis or peritoneal dialysis: Yes Hemodialysis or Peritoneal Dialysis: Hemodialysis Location: [facility] attending: Saturday, , Saturday Does patient [...] ? Outpatient Therapy PT: No OT: No MEDTRONICS TECHNICIAN: No ? SNF/NH SNF: No NH: No [...] due to medical status Radha Arce LMSW, [facility] [phone] * Anesthesia Post Op Day 1 - Cramen Novak, OMI - 03/11/2017 9:57 AM LIMEHOUSE WORKER Formatting of this note may be different from the original. Anesthesia Follow-Up Evaluation: Post-Procedure Day One Name: Naren Mayfield : 1965 Age: 51 y.o. 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 - Neuromonitoring, aneurysm clips, microscope, ICG, radiolucent skyler Physical Assessment Height: 172.7 cm (68") Weight: 115.1 kg (253 lb 12 oz) Vital Signs (Last Filed in 24 hours) BP: 151/73 (03/10 1830) Temp: 37 C (98.6 F) (03/11 0400) Pulse: 77 (12/04 0819) Respirations: 27 PER MINUTE (03/11 819) SpO2: [...] Carmen Novak SRNA - 03/11/2017 9:53 AM LIMEHOUSE WORKER Formatting of this note may be different [...] Cardiovascular Status:acceptable and hemodynamically stable Regional/Neuroaxial: * Operative Report (Direct Entry) - Faraz Hernandez MD - 03/11/2017 12:37 AM LIMEHOUSE WORKER OPERATIVE REPORT PATIENT NAME: Naren Mayfield PATIENT : 1965 MR#: [id number] DATE OF OPERATION: 03/11/2017 Surgeon(s) and Role: * Edgar Bee MD - Primary * Faraz Hernandez MD - Resident - Assisting PREOPERATIVE DIAGNOSIS: Right epidural hematoma Slow filling of arterial branch near aneurysm clipping - evidence of decreased cerebral flow. POSTOPERATIVE DIAGNOSIS: Same. OPERATIVE PROCEDURE: 1. Craniectomy evacuation of epidural hematoma 2. Use of microscope for microscopic evaluation of aneurysm clips and branching vessels 3. Intraoperative angiogram pre and post removal of 1 aneurysm clip. 4. Placement of bone flap in abdominal subcutaneous space ANESTHESIA: Defer to Anesthesia INDICATIONS FOR OPERATIVE PROCEDURE: Naren Mayfield is a 51-year-old male who had underwent previous right pterional craniotomy for clip repair of MCA aneurysm. Upon recovery in the neuro ICU after few hours the patient's neurological exam had declined and he had a fixed and dilated right pupil. CT imaging of the head and intracranial vasculature with perfusion data was significant for a small right epidural hematoma significant amount of brain edema and shift. Specifically the perfusion data showed evidence of slowed or decreased flow through a posterior temporal branch. At this point it was determined the patient needs to go emergently to the operative suite for evacuation of the hematoma and investigation of the clip construct with intraoperative angiogram. All risks benefits alternatives were discussed with the patient's sister who was present and was in agreement with the plan. DESCRIPTION AND FINDINGS OF OPERATIVE PROCEDURE: The patient was emergently taken to the operative suite. He had already been intubated previous. He was placed in the radiolucent Kent overhead cleaner maintainer and the previous dressing was removed. The previously placed drain was removed. The area is prepped with Betadine scrub. His draped in a sterile fashion. The previous andria were removed. The incision was reopened with scissors and held anteriorly with fishhooks. The temporalis muscle sutures were cut and the temporalis muscles reflected inferiorly. The screws of the previous plating system were removed and the bone flap craniotomy was removed. There is evidence of a small amount of epidural hematoma that was removed easily. This point the dura was reopened along the suture line. There at this time did not appear to be any blood subdural he there was not a significant amount of brain swelling. The previously placed aneurysm clips were easily identified. At this point the microscope was brought in for microdissection and evaluation of the aneurysm and clips. At this point intraoperative angiogram was performed prior to removing the smaller clip near the exiting vessel of concern. This angiogram did show some slow filling of that branch. At this point under the microscope the small fenestrated aneurysm clip was removed without any evidence of bleeding. The exiting vessel to be more thoroughly identified at this point and did appear to be filling. The intraoperative angiogram was repeated and showed more robust filling of the posterior temporal branch. At this point hemostasis obtained the wound was irrigated the decision was to leave the bone flap off in case the patient ran into trouble in the immediate postop timeframe. This the abdomen had been previously prepped and draped. Incision was made and dissection was carried down to the anterior abdominal fascia. The pocket was expanded in order to fit the bone flap. The bone flap was placed in the abdominal cavity. The abdominal cavity deep dermal tissues were reapproximated simple inverted interrupted 2-0 Vicryl sutures. The skin was closed with andria. Then 2 layers of lyoplant were placed over the craniectomy site after the dura had been widely opened. The lyoplant was placed between the temporalis muscle and the dura/exposed cortex. At this point the galea was reapproximated with simple inverted interrupted 2-0 Vicryl sutures. Prior to the galeal closure a 10 Russian CHET drain was placed in the wound and tunneled subgaleally to the previous drain exit site. The skin was closed with a running locking 2-0 and 3- 0 nylon suture. The drain was stitched in place with a 2-0 silk suture. All sponge counts needle counts and equipment counts were correct 2 within the case. The wound was dressed in a sterile fashion. The patient was removed from the [place] overhead cleaner maintainer and transferred to the [facility]. Patient was transferred to the neuro ICU in stable condition with improvement of his right dilated pupil which was now equal and reactive. ESTIMATED BLOOD LOSS: 200 ml. SPECIMENS REMOVED: * No specimens in log *. COMPLICATIONS: none. IMPLANTS: lyoplant. DRAINS: 10 F CHET drain to bulb suction. DISPOSITION: Taken to Neuro ICU in stable condition. . Faraz Hernandez MD [id number] Please call Neurosurgery Call Pager ([phone]) with any questions. Associated attestation - Edgar Bee MD - 04/05/2017 10:33 AM LIMEHOUSE WORKER Formatting of this note may be different from the original. ATTESTATION I performed this procedure with a resident. Staff name: Edgar Bee MD Date: 04/05/2017 * Procedures (Immed Post or Bedside) - Faraz Hernandez MD - 03/11/2017 12: 30 AM LIMEHOUSE WORKER Brief Operative Note Name: Naren Mayfield is a 51 y.o. male : 1965 DATE OF OPERATION: 03/10/2017 Date: 03/11/2017 Preoperative Dx: brain aneurysm Post-op Diagnosis * Brain aneurysm [I67.1] Procedure(s): 1. Craniectomy evacuation of epidural hematoma 2. Use of microscope for microscopic evaluation of aneurysm clips and branching vessels 3. Intraoperative angiogram pre and post removal of 1 aneurysm clip. 4. Placement of bone flap in abdominal subcutaneous space Anesthesia Type: Defer to Anesthesia Surgeon(s) and Role: * Edgar Bee MD - Primary * Faraz Hernandez MD - Resident - Assisting Wilberto Sebastian - Resident - Assisting Findings: Small area of temporal epidural blood, no intradural bleeding, pre and post clip removal intraoperative angiograms with evidence of increased flow through the vessel of concern. Brain without significant edema or swelling but felt that best plan would be to place craniotomy bone flap within the abdomen for maximal decompression and recovery. Estimated Blood Loss: 200 ml. Specimen(s) Removed/Disposition: * No specimens in log * Complications: None Implants: Lyoplant onlay Drains: Claude-Cedeño Drain: bulb suction Disposition: ICU - stable Faraz Hernandez MD Pager [phone] Associated attestation - Edgar Bee MD - 04/05/2017 10:32 AM LIMEHOUSE WORKER Neurologic change prompted reimaging. Post-operative hemorrhage with mass effect , and perfusion imaging suggestive of risk of further neurologic change, therefore emergent reoperation to address these significant issues. * Operative Report (Direct Entry) - Edgar Bee MD - 03/10/2017 7:00 PM LIMEHOUSE WORKER Formatting of this note may be different from the original. OPERATIVE REPORT PATIENT NAME: Naren Mayfield PATIENT : 1965 MR#: [id number] DATE OF OPERATION: 03/10/2017 Surgeon(s) and Role: * Edgar Bee MD - Primary * Faraz Hernandez MD - Resident - Assisting PREOPERATIVE DIAGNOSIS: Ruptured Right MCA brain aneurysm POSTOPERATIVE DIAGNOSIS: Same. OPERATIVE PROCEDURE: 1. Procedure(s): REPAIR ANEURYSM CRANIOTOMY, ruptured complex right MCA aneurysm. Use of microscope for microdissection ANESTHESIA: Defer to Anesthesia INDICATIONS FOR OPERATIVE PROCEDURE: Naren Mafyield is a 51-year-old male who presented to [facility] after being found unresponsive while he is getting hemodialysis. He has a host of medical issues including his renal failure diabetes chronic smoking history. He is found on imaging to have some subarachnoid hemorrhage with a right temporal intracerebral hemorrhage. Vascular imaging was significant for a right sided large MCA aneurysm with multiple branches incorporated. Despite his medical conditions making him a less than ideal surgical candidate the aneurysm did not appear to be able to be treated without significant risks endovascularly. This point discussion was had with the patient's sister who is also a primary caregiver for him that craniotomy for clip occlusion of the aneurysm was likely the best option to fully treat the aneurysm. All risks benefits alternatives were discussed and all questions were answered. DESCRIPTION AND FINDINGS OF OPERATIVE PROCEDURE: After obtaining informed consent patient was taken the operative suite he was already intubated prior to transfer. The patient was transported over to the OR table and pinned with radiolucent [place]. The patient was hooked up to neuro monitoring. The area for incision for pterional craniotomy was marked out the hair was Clippard. The area for incision was drawn out and everything was cleansed and prepped in normal sterile fashion. The patient was draped sterilely and the skin was infiltrated with 1% lidocaine with epinephrine. Incision was made with 10 blade scalpel and carried down to the level of the temporalis fascia. Hemostasis obtained and Riddhi clips were applied. Dissection the inferior portion of the incision was meticulously carried out to save the superficial temporal artery. Next a interfascial dissection was carried out anteriorly and the temporalis muscle was then incised and pulled inferiorly while the skin flap was held anteriorly with fishhooks. The areas for craniotomy were demarcated in the pastry mixer bur bit was used to fashion bur holes. The craniotome with footplate was used to fashion a craniotomy. The middle meningeal artery was ligated. After obtaining hemostasis the orbital ridges were smoothed with high-speed drill. The sphenoid bone was removed with Kerrison Leksell rongeurs and high-speed drill. Durotomy was performed and flapped anteriorly and held in place with 4 Nurolon sutures. The microscope was brought at this point for microdissection. Dissection was carried down to the optical carotid recess with and held retraction. The arachnoid space above the optic nerve and into the optical carotid recess were opened to allow egress of CSF. After allowing for CSF drainage and relaxation of the brain the carotid artery was dissected to the point the proximal control could be obtained. This point the middle temporal gyrus was entered via corticectomy and dissection was carried out on the anterior temporal lobe until sub-peel dissection along the sylvian fissure was identified. This point the large aneurysm dome could be identified. The sylvian fissure was then further dissected and combinations of proximal to distal and distal to proximal until the main feeding M1 can be identified and secured for temporary clipping. At this point the M1 vessel was temporarily occluded multiple occasions for approximately 5 minutes on each occasion. While the M1 vessel was temporary clipped the aneurysm wall was dissected until the incoming M1 as well as the M2 branches bifurcation could be identified on the superficial and deep portion of the aneurysm. After dissection confirming the vessels and allowing time for the temporary clip to be off the M1 was reoccluded with temporary clip and both exiting branches from the aneurysm were occluded with temporary clips. At this point the aneurysm dome was incised with 11 blade scalpel and deflated with suction. After deflation of the aneurysm the feeding M1 vessel and exiting vessels were more clearly identified and a long 30 mm aneurysm clip was applied across the majority of the dome of the aneurysm. Temporary clip was removed with small amount of bleeding from the aneurysm and another 21 mm aneurysm clip was stacked on top of the previously placed clip. These clips were tightened down with a tonsil to ensure full closure. After this all the temporary clips were removed. The remaining portion of the aneurysm was small and a small fenestrated clip was placed across this. At this point ICG was given to the patient in the incoming M1 as well as both exiting arteries were identified and appeared to be filling. There is not appear to be any residual aneurysm. At this point hemostasis obtained and attention was turned towards closure. The neuro monitoring was continued without any changes throughout the closure process. The dura was reapproximated inferiorly with simple running 4-0 Nurolon suture. A small piece of lyoplant was cut to size and used as a graft for duraplasty that was sutured in place with simple running 4-0 Nurolon sutures. After dural closure the bone was plated with KLS system and affixed to the skull. Hemostasis obtained in the temporalis fascia was reapproximated with simple interrupted 2-0 Vicryl sutures. Dural tack up sutures had been placed and passed through the bone flap which were then tightened down at this juncture. A 10 Russian round CHET drain was placed in the wound and tunneled subgaleally posterior medial. The galea was then reapproximated with simple inverted interrupted 2-0 Vicryl sutures. The skin was closed with andria. The drain was stitched in place with a 2-0 silk suture. All sponge counts needle counts and equipment counts were correct 2 at the end of the case. The wound was dressed in sterile fashion the patient was removed from the [place] overhead cleaner maintainer. The patient was transferred to the [facility] and transferred to the neuro ICU in stable condition. Plan was to leave the patient intubated was not good enough to observe his neurological exam in the ICU. ESTIMATED BLOOD LOSS: 350 ml . SPECIMENS REMOVED: * No specimens in log *. COMPLICATIONS: none. IMPLANTS: KLS plating system, Lyoplant. DRAINS: 10F CHET drain to bulb suction. DISPOSITION: Taken to NeuroICU in stable condition. Faraz Hernandez MD [id number] Please call Neurosurgery Call Pager ([phone]) with any questions. ATTESTATION I performed this procedure with a resident. Staff name: Edgar Bee MD Date: 04/05/2017 * Procedures (Immed Post or Bedside) - Faraz Hernandez MD - 03/10/2017 7: 00 PM LIMEHOUSE WORKER Brief Operative Note Name: Naren Mayfield is a 51 y.o. male : 1965 DATE OF OPERATION: 03/10/2017 Date: 03/11/2017 Preoperative Dx: brain aneurysm Post-op Diagnosis * Brain aneurysm [I67.1] Procedure(s): REPAIR ANEURYSM CRANIOTOMY Anesthesia Type: Defer to Anesthesia Surgeon(s) and Role: * Edgar Bee MD - Primary * aFraz Hernandez MD - Resident - Assisting Findings: Right MCA aneurysm repair with 3 clips with evidence of filling of vessel on ICG runs. Estimated Blood Loss: 350ml. Specimen(s) Removed/Disposition: * No specimens in log * Complications: None Implants: KLS plating system, lyoplant Drains: Claude-Cedeño Drain: bulb suction Disposition: ICU - stable Faraz Hernandez MD Pager [phone] Patient was taken to Neuro ICU in stable condition and sign-off was given, unfortunately he required emergent return to OR for epidural hematoma, midline shift and evidence on vascular imaging of slow filling of one branch distribution. Associated attestation - Edgar Bee MD - 04/05/2017 10:31 AM LIMEHOUSE WORKER Neurologic change prompted reimaging. Post-operative hemorrhage with mass effect , and perfusion imaging suggestive of risk of further neurologic change, therefore emergent reoperation to address these significant issues. * Procedures (Immed Post or Bedside) - Lyly Rogel MD - 03/09/2017 5:54 PM LIMEHOUSE WORKER Neuro Interventional Immediate Post Procedure Note Date: 03/09/2017 Attending Physician: Lyly Rogel MD Gasfitter(s): Ankita Lopez Cerebral Angiogram Time out performed: [...] Exam: Intubated, sedated Lyly Rogel MD Pager: [phone] * Procedures (Immed Post or Bedside) - Rosie Tanner APRN - 03/09/2017 4: 29 PM LIMEHOUSE WORKER Formatting of this note may be different [...] 03/09/2017 in this encounter Plan of Treatment Date Type Specialty Care Team Description 05/03/2017 Anesthesia Hannah Acevedo, DO Event [address] [place] [address] [place] [address] [phone] 05/17/2017 Surgery Edgar Bee MD CRANIOPLASTY FOR RIGHT [address] [place], [place] [address] [place] [address] FROM RIGHT ABDOMEN [phone] 05/17/2017 Procedure Pass 05/17/2017 Hospital Edgar Bee MD Brain aneurysm Encounter [address] [place] [address] [place] [address] Name Priority Associated Diagnoses Date/Time DELIVER & TRANSFUSE RED BLOOD CELLS STAT 03/10/2017 10:29 AM LIMEHOUSE WORKER (INTRAOP ONLY) TRANSFUSE RBC'S NON-BLEEDING PT Routine 03/13/2017 1:10 PM LIMEHOUSE WORKER TRANSFUSE RBC'S NON-BLEEDING PT Routine 03/13/2017 1:10 PM LIMEHOUSE WORKER as of this encounter Procedures Procedure Name Priority Date/Time Associated Diagnosis Comments ECG-SCAN 05/03/2017 Results for this 7:15 AM LIMEHOUSE WORKER procedure are in the results section. TELEMETRY STRIPS-SCAN 04/03/2017 Results for this 1:24 PM LIMEHOUSE WORKER procedure are in the results section. ECG-SCAN 04/03/2017 Results for this 1:19 PM LIMEHOUSE WORKER procedure are in the results section. ECG-SCAN 04/03/2017 Results for this 9:50 AM LIMEHOUSE WORKER procedure are in the results section. ECG-SCAN 04/03/2017 Results for this 9:50 AM LIMEHOUSE WORKER procedure are in the results section. CONSULT IV THERAPY TEAM Routine 03/19/2017 9:43 AM LIMEHOUSE WORKER ECG-SCAN 03/12/2017 Results for this 10:05 AM LIMEHOUSE WORKER procedure are in the results section. ECG-SCAN 03/12/2017 Results for this 10:05 AM LIMEHOUSE WORKER procedure are in the results section. ECG-SCAN 03/12/2017 Results for this 10:05 AM LIMEHOUSE WORKER procedure are in the results section. ECG-SCAN 03/12/2017 Results for this 10:05 AM LIMEHOUSE WORKER procedure are in the results section. REPAIR ANEURYSM 03/10/2017 Brain aneurysm CRANIOTOMY 8:15 PM LIMEHOUSE WORKER Rt pterional craniotomy 03/10/2017 Ruptured cerebral for clipping of MCA 8:00 AM LIMEHOUSE WORKER aneurysm (HCC) aneurysm in this encounter Results * ECG-SCAN (05/03/2017 7:15 AM) Narrative Ordered by an unspecified provider. * TELEMETRY STRIPS-SCAN (04/03/2017 1:24 PM) Narrative Ordered by an unspecified provider. * ECG-SCAN (04/03/2017 1:19 PM) Narrative Ordered by an unspecified provider. * ECG-SCAN (04/03/2017 9:50 AM) Narrative Ordered by an unspecified provider. * ECG-SCAN (04/03/2017 9:50 AM) Narrative Ordered by an unspecified provider. * POC GLUCOSE (03/26/2017 1:47 PM) Component Value Ref Range Glucose, POC 103 (H) 70 - 100 MG/DL Specimen Performing Laboratory [facility] [address] [place] [address] * HEMODIALYSIS INPATIENT (03/26/2017 1:10 PM) Narrative [...] K/UL Specimen Performing Laboratory [facility] [address] [place] [address] * BASIC METABOLIC PANEL (03/26/2017 4:20 AM) [...] questions. Specimen Performing Laboratory [facility] [address] [place] [address] * POC GLUCOSE (03/26/2017 3:24 AM) Component Value Ref Range Glucose, POC 114 (H) 70 - 100 MG/DL Specimen Performing Laboratory MA[facility] [address] [place] [address] * POC GLUCOSE (03/25/2017 8:52 PM) Component Value Ref Range Glucose, POC 160 (H) 70 - 100 MG/DL Specimen Performing Laboratory MA[facility] [address] [place] [address] * POC GLUCOSE (03/25/2017 5:13 PM) Component Value Ref Range Glucose, POC 135 (H) 70 - 100 MG/DL Specimen Performing Laboratory [facility] [address] [place] [address] * POC GLUCOSE (03/25/2017 11:59 AM) Component Value Ref Range Glucose, POC 103 (H) 70 - 100 MG/DL Specimen Performing Laboratory MA[facility] [address] [place] [address] * POC GLUCOSE (03/25/2017 7:30 AM) Component Value Ref Range Glucose, POC 85 70 - 100 MG/DL Specimen Performing Laboratory MA[facility] [address] [place] [address] * CBC AND DIFF (03/25/2017 4:27 AM) [...] K/UL Specimen Performing Laboratory [facility] [address] [place] [address] * BASIC METABOLIC PANEL (03/25/2017 4:27 AM) [...] Pharmacist for questions. Specimen Performing Laboratory Blood [facility] [address] [place] [address] * POC GLUCOSE (03/25/2017 1:51 AM) Component Value Ref Range Glucose, POC 90 70 - 100 MG/DL Specimen Performing Laboratory [facility] [address] [place], [place] [id number] * POC GLUCOSE (03/24/2017 8:52 PM) Component Value Ref Range Glucose, POC 160 (H) 70 - 100 MG/DL Specimen Performing Laboratory [facility] [address] [place] [address] * POC GLUCOSE (03/24/2017 4:55 PM) Component Value Ref Range Glucose, POC 105 (H) 70 - 100 MG/DL Specimen Performing Laboratory [facility] [address] [place] [address] * POC GLUCOSE (03/24/2017 11:42 AM) Component Value Ref Range Glucose, POC 158 (H) 70 - 100 MG/DL Specimen Performing Laboratory [facility] [address] [place], [place] [id number] * POC GLUCOSE (03/24/2017 7:52 AM) Component Value Ref Range Glucose, POC 102 (H) 70 - 100 MG/DL Specimen Performing Laboratory [facility] [address] [place] [address] * BASIC METABOLIC PANEL (03/24/2017 4:13 AM) [...] Specimen Performing Laboratory [facility] [address] [place] [address] * PHOSPHORUS (03/24/2017 4:13 AM) Component Value Ref Range Phosphorus 6.5 (H) 2.0 - 4.0 MG/DL Specimen Performing Laboratory [facility] [address] [place] [address] * CBC AND DIFF (03/24/2017 4:13 AM) [...] Specimen Performing Laboratory [facility] [address] [place] [address] * POC GLUCOSE (03/24/2017 3:55 AM) Component Value Ref Range Glucose, POC 97 70 - 100 MG/DL Specimen Performing Laboratory MAIN LAB [address] [place] [address] * POC GLUCOSE (03/23/2017 9:09 PM) Component Value Ref Range Glucose, POC 143 (H) 70 - 100 MG/DL Specimen Performing Laboratory MAIN LAB [address] [place] [address] * POC GLUCOSE (03/23/2017 5:37 PM) Component Value Ref Range Glucose, POC 134 (H) 70 - 100 MG/DL Specimen Performing Laboratory MAIN LAB [address] [place] [address] * HEMODIALYSIS INPATIENT (03/23/2017 3:24 PM) Narrative Dharmesh Navarro RN 03/23/20173:24 PM Arrived at patient room C 511 and treatment started at 1040 am. Vital signs stable. Patient tolerating treatment well. Treatment complete at 1444 pm. Vital signs stable. Mchenry removed from L AV fistula and site healed. Report given to unit nurse. Left patient in room C 511 in stable condition. * HEMODIALYSIS DATE (03/23/2017 3:24 PM) Rose Navarro RN 03/23/20173:24 PM Arrived at patient room C 5112 and treatment started at 1040 am. Vital signs stable. Patient tolerating treatment well. Treatment complete at 1444 pm. Vital signs stable. Mchenry removed from L AV fistula and site healed. Report given to unit nurse. Left patient in room C 511 in stable condition. * POC GLUCOSE (03/23/2017 1:10 PM) Component Value Ref Range Glucose, POC 146 (H) 70 - 100 MG/DL Specimen Performing Laboratory MAIN LAB [address] [place] [address] * POC GLUCOSE (03/23/2017 8:13 AM) Component Value Ref Range Glucose, POC 105 (H) 70 - 100 MG/DL Specimen Performing Laboratory [facility]IN [facility] [address] [place] [address] * CBC AND DIFF (03/23/2017 4:39 AM) [...] K/UL Specimen Performing Laboratory [facility] [address] [place] [address] * BLOOD GASES, ARTERIAL (03/23/2017 4:39 AM) Component Value Ref Range pH-Arterial 7.26 (L) 7.35 - 7.45 pCO2-Arterial 36 35 - 45 MMHG pO2-Arterial 74 (L) 80 - 100 MMHG Base Deficit-Arterial 10.6 MMOL/L O2 Sat-Arterial 92.5 (L) 95 - 99 % Ivnngqsiusk-XWH-Pfb 16.1 (L) 21 - 28 MMOL/L Specimen Performing Laboratory Blood, arterial - Blood MAIN LAB [address] [place] [address] * IONIZED CALCIUM (03/23/2017 4:39 AM) Component Value Ref Range Ionized Calcium 1.25 1.0 - 1.3 MMOL/L Specimen Performing Laboratory [facility] [address] [place], [place] [id number] * PHOSPHORUS (03/23/2017 4:39 AM) Component Value Ref Range Phosphorus 8.6 (H) 2.0 - 4.0 MG/DL Specimen Performing Laboratory [facility] [address] [place], [place] [id number] * MAGNESIUM (03/23/2017 4:39 AM) Component Value Ref Range Magnesium 2.6 1.6 - 2.6 mg/dL Specimen Performing Laboratory [facility] [address] [place], [place] [id number] * BASIC METABOLIC PANEL (03/23/2017 4:39 AM) [...] Specimen Performing Laboratory [facility] [address] [place] [address] * POC GLUCOSE (03/23/2017 4:23 AM) Component Value Ref Range Glucose, POC 90 70 - 100 MG/DL Specimen Performing Laboratory MAIN LAB [address] [place] [address] * POC GLUCOSE (03/22/2017 8:40 PM) Component Value Ref Range Glucose, POC 110 (H) 70 - 100 MG/DL Specimen Performing Laboratory MAIN LAB [address] [place] [address] * POC GLUCOSE (03/22/2017 6:14 PM) Component Value Ref Range Glucose, POC 212 (H) 70 - 100 MG/DL Specimen Performing Laboratory MAIN LAB [address] [place] [address] * CT HEAD WO CONTRAST (03/22/2017 5:59 [...] Interface, Radiant Results - 03/23/2017 2:[address] HEAD HISTORY: Status post craniectomy, subarachnoid [...] 100 MG/DL Specimen Performing Laboratory MAIN LAB [address] [place] [address] * POC GLUCOSE (03/22/2017 8:07 AM) Component Value Ref Range Glucose, POC 128 (H) 70 - 100 MG/DL Specimen Performing Laboratory MAIN LAB [address] [place] [address] * CBC AND DIFF (03/22/2017 3:50 AM) [...] K/UL Specimen Performing Laboratory [facility] [address] [place] [address] * BLOOD GASES, ARTERIAL (03/22/2017 3:50 AM) Component Value Ref Range pH-Arterial 7.36 7.35 - 7.45 pCO2-Arterial 36 35 - 45 MMHG pO2-Arterial 83 80 - 100 MMHG Base Deficit-Arterial 4.2 MMOL/L O2 Sat-Arterial 96.1 95 - 99 % Blxonktngfo-ZOU-Rtd 20.9 (L) 21 - 28 MMOL/L Specimen Performing Laboratory Blood, arterial - Blood MAIN LAB [address] [place] [address] * IONIZED CALCIUM (03/22/2017 3:50 AM) Component Value Ref Range Ionized Calcium 1.21 1.0 - 1.3 MMOL/L Specimen Performing Laboratory [facility] [address] [place] [address] * PHOSPHORUS (03/22/2017 3:50 AM) Component Value Ref Range Phosphorus 6.3 (H) 2.0 - 4.0 MG/DL Specimen Performing Laboratory [facility] [address] [place] [address] * MAGNESIUM (03/22/2017 3:50 AM) Component Value Ref Range Magnesium 2.4 1.6 - 2.6 mg/dL Specimen Performing Laboratory [facility] [address] [place] [address] * BASIC METABOLIC PANEL (03/22/2017 3:50 AM) [...] questions. Specimen Performing Laboratory [facility] [address] [place] [address] * POC GLUCOSE (03/22/2017 3:38 AM) Component Value Ref Range Glucose, POC 155 (H) 70 - 100 MG/DL Specimen Performing Laboratory MAIN LAB [address] [place] [address] * POC GLUCOSE (03/21/2017 9:12 PM) Component Value Ref Range Glucose, POC 153 (H) 70 - 100 MG/DL Specimen Performing Laboratory MAIN LAB [address] [place] [address] * POC GLUCOSE (03/21/2017 6:09 PM) Component Value Ref Range Glucose, POC 163 (H) 70 - 100 MG/DL Specimen Performing Laboratory MAIN LAB [address] [place] [address] * SWALLOW MOTION SERIES (03/21/2017 3:40 PM) [...] Interface, Radiant Results - 03/21/2017 4:44 PM LIMEHOUSE WORKER SWALLOW MOTION SERIES CLINICAL INDICATION: Male, 51 [...] 03/21/20171:02 PM 0630 Arrived in Pt's RM [id number] with portable R/O and diaysis machine/supply cart. ICU staff cleaning Pt from BM. [id number] R/O rinsing/cool down cycle in progress. Pt [...] 03/21/20171:02 PM 0630 Arrived in Pt's RM [id number] with portable R/O and diaysis machine/supply cart. ICU staff cleaning Pt from BM. [id number] R/O rinsing/cool down cycle in progress. Pt repositioned by ICU staff X's 3. 0815 Arterial line patent. Verified correct Pt,meds,procedure and equipment.Signed consent for HD TX in chart. Pre-TX VS taken. 829 HD TX started after all machine checks [...] 100 MG/DL Specimen Performing Laboratory MAIN LAB [address] [place] [address] * POC GLUCOSE (03/21/2017 8:05 AM) Component Value Ref Range Glucose, POC 169 (H) 70 - 100 MG/DL Specimen Performing Laboratory MAIN LAB [address] [place] [address] * POC GLUCOSE (03/21/2017 3:42 AM) Component Value Ref Range Glucose, POC 150 (H) 70 - 100 MG/DL Specimen Performing Laboratory MAIN LAB [address] [place] [address] * CBC AND DIFF (03/21/2017 3:40 AM) [...] K/UL Specimen Performing Laboratory Blood MAIN LAB [address] [place] [address] * BLOOD GASES, ARTERIAL (03/21/2017 3:40 AM) Component Value Ref Range pH-Arterial 7.31 (L) 7.35 - 7.45 pCO2-Arterial 33 (L) 35 - 45 MMHG pO2-Arterial 65 (L) 80 - 100 MMHG Base Deficit-Arterial 9.1 MMOL/L O2 Sat-Arterial 89.9 (L) 95 - 99 % Xhzimkesqie-YKV-Qwe 17.0 (L) 21 - 28 MMOL/L Specimen Performing Laboratory Blood, arterial - Blood MAIN LAB [address] [place] [address] * IONIZED CALCIUM (03/21/2017 3:40 AM) Component Value Ref Range Ionized Calcium 1.23 1.0 - 1.3 MMOL/L Specimen Performing Laboratory Blood MAIN LAB [address] [place] [address] * PHOSPHORUS (03/21/2017 3:40 AM) Component Value Ref Range Phosphorus 7.0 (H) 2.0 - 4.0 MG/DL Specimen Performing Laboratory Blood MAIN LAB [address] [place], [place] [id number] * MAGNESIUM (03/21/2017 3:40 AM) Component Value Ref Range Magnesium 2.5 1.6 - 2.6 mg/dL Specimen Performing Laboratory Blood MAIN LAB [address] [place] [address] * BASIC METABOLIC PANEL (03/21/2017 3:40 AM) [...] Pharmacist for questions. Specimen Performing Laboratory Blood [facility] [address] [place] [address] * POC GLUCOSE (03/20/2017 8:54 PM) Component Value Ref Range Glucose, POC 139 (H) 70 - 100 MG/DL Specimen Performing Laboratory [facility] LAB [address] [place], [place] [id number] * POC GLUCOSE (03/20/2017 4:51 PM) Component Value Ref Range Glucose, POC 159 (H) 70 - 100 MG/DL Specimen Performing Laboratory [facility] LAB [address] [place] [address] * POC GLUCOSE (03/20/2017 11:57 AM) Component Value Ref Range Glucose, POC 143 (H) 70 - 100 MG/DL Specimen Performing Laboratory [facility] [address] [place], [place] [id number] * POC GLUCOSE (03/20/2017 7:44 AM) Component Value Ref Range Glucose, POC 150 (H) 70 - 100 MG/DL Specimen Performing Laboratory [facility] [address] [place], [place] [id number] * CBC AND DIFF (03/20/2017 4:28 AM) [...] K/UL Specimen Performing Laboratory Blood MAIN LAB [address] [place] [address] * BLOOD GASES, ARTERIAL (03/20/2017 4:28 AM) Component Value Ref Range pH-Arterial 7.38 7.35 - 7.45 pCO2-Arterial 37 35 - 45 MMHG pO2-Arterial 85 80 - 100 MMHG Base Deficit-Arterial 2.3 MMOL/L O2 Sat-Arterial 96.1 95 - 99 % Nhszdyqgfvv-DAS-Xcs 22.4 21 - 28 MMOL/L Specimen Performing Laboratory Blood, arterial - Blood MAIN LAB [address] [place] [address] * IONIZED CALCIUM (03/20/2017 4:28 AM) Component Value Ref Range Ionized Calcium 1.19 1.0 - 1.3 MMOL/L Specimen Performing Laboratory Blood MAIN LAB [address] [place] [address] * PHOSPHORUS (03/20/2017 4:28 AM) Component Value Ref Range Phosphorus 5.3 (H) 2.0 - 4.0 MG/DL Specimen Performing Laboratory Blood MAIN LAB [address] [place] [address] * MAGNESIUM (03/20/2017 4:28 AM) Component Value Ref Range Magnesium 2.2 1.6 - 2.6 mg/dL Specimen Performing Laboratory Blood MAIN LAB [address] [place] [address] * BASIC METABOLIC PANEL (03/20/2017 4:28 AM) [...] Performing Laboratory Blood [facility] MAIN LAB [address] [place] [address] * POC GLUCOSE (03/20/2017 3:23 AM) Component Value Ref Range Glucose, POC 150 (H) 70 - 100 MG/DL Specimen Performing Laboratory [facility] MAIN LAB [address] [place] [address] * POC GLUCOSE (03/19/2017 8:10 PM) Component Value Ref Range Glucose, POC 137 (H) 70 - 100 MG/DL Specimen Performing Laboratory [facility] MAIN LAB [address] [place] [address] * ABDOMEN AP ONLY (03/19/2017 7:37 PM) [...] Interface, Radiant Results - 03/20/2017 7:53 AM LIMEHOUSE WORKER Portable AP abdomen CLINICAL HISTORY: Corpak verification. [...] Specimen Performing Laboratory [facility] MAIN LAB [address] [place] [address] * ABDOMEN AP ONLY (03/19/2017 4:23 PM) [...] Interface, Radiant Results - 03/19/2017 4:39 PM LIMEHOUSE WORKER ABDOMEN AP ONLY Indication: Corpak placement. Comparison: [...] PM. * HEMODIALYSIS INPATIENT (03/19/2017 4:09 PM) Narrative Geoffrey Farias RN 03/19/20174:09 PM Hemodialysis treatment started [...] ml. * HEMODIALYSIS DATE (03/19/2017 4:09 PM) Narrative Geoffrey Farias RN 03/19/20174:09 PM Hemodialysis treatment started [...] MG/DL Specimen Performing Laboratory MAIN LAB [address] [place] [address] * POC GLUCOSE (03/19/2017 8:26 AM) Component Value Ref Range Glucose, POC 163 (H) 70 - 100 MG/DL Specimen Performing Laboratory MAIN LAB [address] [place] [address] * CBC AND DIFF (03/19/2017 4:18 AM) [...] K/UL Specimen Performing Laboratory Blood MAIN LAB [address] [place] [address] * BLOOD GASES, ARTERIAL (03/19/2017 4:18 AM) Component Value Ref Range pH-Arterial 7.34 (L) 7.35 - 7.45 pCO2-Arterial 37 35 - 45 MMHG pO2-Arterial 108 (H) 80 - 100 MMHG Base Deficit-Arterial 5.2 MMOL/L O2 Sat-Arterial 98.4 95 - 99 % Vvktkgpchaf-AAG-Vxp 20.1 (L) 21 - 28 MMOL/L Specimen Performing Laboratory Blood, arterial - Blood MAIN LAB [address] [place] [address] * IONIZED CALCIUM (03/19/2017 4:18 AM) Component Value Ref Range Ionized Calcium 1.18 1.0 - 1.3 MMOL/L Specimen Performing Laboratory Blood MAIN LAB [address] [place] [address] * PHOSPHORUS (03/19/2017 4:18 AM) Component Value Ref Range Phosphorus 6.2 (H) 2.0 - 4.0 MG/DL Specimen Performing Laboratory Blood MAIN LAB [address] [place] [address] * MAGNESIUM (03/19/2017 4:18 AM) Component Value Ref Range Magnesium 2.3 1.6 - 2.6 mg/dL Specimen Performing Laboratory Blood MAIN LAB [address] [place] [address] * BASIC METABOLIC PANEL (03/19/2017 4:18 AM) [...] Performing Laboratory Blood [facility] MAIN LAB [address] [place] [address] * POC GLUCOSE (03/19/2017 3:02 AM) Component Value Ref Range Glucose, POC 181 (H) 70 - 100 MG/DL Specimen Performing Laboratory [facility] MAIN LAB [address] [place] [address] * US DOPPLER VENOUS BILATERAL (03/19/2017 1:15 [...] Interface, Radiant Results - 03/19/2017 6:45 AM LIMEHOUSE WORKER Bilateral lower extremity venous Doppler History: Immobility, [...] Specimen Performing Laboratory [facility] MAIN LAB [address] [place] [address] * HEMODIALYSIS INPATIENT (03/18/2017 7:03 PM) Narrative Mihai Aly RN 03/18/20177:03 PM 1225 Status: Active Ordering user: Nir Timmons MD 03/17/17 1225 Ordering provider: Nir Timmons MD Authorized by: Nir Timmons MD Frequency: Once 03/17/17 1800 - 1 Occurrences Released by: Patti Garcia RN 03/17/17 1756 Questions: Date Hemodialysis to be performed: 03/18/2017 [...] Occurrences Released by: Patti Garcia RN 03/17/17 7364 Questions: Date Hemodialysis to be performed: 03/18/2017 [...] paged. 1530 Dr Mitchell here at bedside. 181 patient had episodes with agitation and restless during treatment. Completed dialysis. Took off 4 liters. Map remains over 80. Karen DAVE received report. * POC GLUCOSE (03/18/2017 6:05 PM) Component Value Ref Range Glucose, POC 121 (H) 70 - 100 MG/DL Specimen Performing Laboratory MAIN LAB [address] [place] [address] * POC GLUCOSE (03/18/2017 11:44 AM) Component Value Ref Range Glucose, POC 157 (H) 70 - 100 MG/DL Specimen Performing Laboratory [facility] [address] [place] [address] * POC GLUCOSE (03/18/2017 10:03 AM) Component Value Ref Range Glucose, POC 194 (H) 70 - 100 MG/DL Specimen Performing Laboratory MAIN LAB [address] [place] [address] * POC GLUCOSE (03/18/2017 3:41 AM) Component Value Ref Range Glucose, POC 162 (H) 70 - 100 MG/DL Specimen Performing Laboratory [facility] [address] [place] [address] * CBC AND DIFF (03/18/2017 3:40 AM) [...] K/UL Specimen Performing Laboratory Blood MAIN LAB [address] [place] [address] * BLOOD GASES, ARTERIAL (03/18/2017 3:40 AM) Component Value Ref Range pH-Arterial 7.28 (L) 7.35 - 7.45 pCO2-Arterial 33 (L) 35 - 45 MMHG pO2-Arterial 96 80 - 100 MMHG Base Deficit-Arterial 10.4 MMOL/L O2 Sat-Arterial 97.0 95 - 99 % Ojmtmglzhqn-FAZ-Dgh 16.1 (L) 21 - 28 MMOL/L Specimen Performing Laboratory Blood, arterial - Blood MAIN LAB [address] [place] [address] * IONIZED CALCIUM (03/18/2017 3:40 AM) Component Value Ref Range Ionized Calcium 1.22 1.0 - 1.3 MMOL/L Specimen Performing Laboratory Blood MAIN LAB [address] [place] [address] * PHOSPHORUS (03/18/2017 3:40 AM) Component Value Ref Range Phosphorus 9.2 (H) 2.0 - 4.0 MG/DL Specimen Performing Laboratory Blood MAIN LAB [address] [place] [address] * MAGNESIUM (03/18/2017 3:40 AM) Component Value Ref Range Magnesium 2.6 1.6 - 2.6 mg/dL Specimen Performing Laboratory Blood MAIN LAB [address] [place] [address] * BASIC METABOLIC PANEL (03/18/2017 3:40 AM) [...] Performing Laboratory Blood [facility] MAIN [facility] [address] [place] [address] * ABDOMEN AP ONLY (03/17/2017 9:28 PM) [...] Interface, Radiant Results - 03/18/2017 8:23 AM LIMEHOUSE WORKER Corpak placement. Technique: Single portable AP supine [...] Specimen Performing Laboratory [facility] MAIN [facility] [address] [place] [address] * POC GLUCOSE (03/17/2017 4:51 PM) Component Value Ref Range Glucose, POC 153 (H) 70 - 100 MG/DL Specimen Performing Laboratory [facility] MAIN [facility] [address] [place] [address] * POC GLUCOSE (03/17/2017 12:40 PM) Component Value Ref Range Glucose, POC 185 (H) 70 - 100 MG/DL Specimen Performing Laboratory [facility] MAIN [facility] [address] [place] [address] * POC GLUCOSE (03/17/2017 9:07 AM) Component Value Ref Range Glucose, POC 147 (H) 70 - 100 MG/DL Specimen Performing Laboratory [facility] MAIN [facility] [address] [place] [address] * CT CHEST W CONTRAST (03/17/2017 8:33 [...] Interface, Radiant Results - 03/17/2017 12:[address] Chest Clinical Indication: Male, 51 years [...] 1.3 MMOL/L Specimen Performing Laboratory MAIN LAB [address] [place] [address] * POC SODIUM (03/17/2017 5:29 AM) Component Value Ref Range Sodium-POC 135 (L) 137 - 147 MMOL/L Specimen Performing Laboratory MAIN LAB [address] [place] [address] * POC POTASSIUM (03/17/2017 5:29 AM) Component Value Ref Range Potassium-POC 3.8 3.5 - 5.1 MMOL/L Specimen Performing Laboratory [facility] LAB [address] [place] [address] * POC HEMATOCRIT (03/17/2017 5:29 AM) Component Value Ref Range Hemoglobin POC 9.2 (L) 13.5 - 16.5 GM/DL Hematocrit POC 27.0 (L) 40 - 50 % Specimen Performing Laboratory [facility] LAB [address] [place] [address] * POC BLOOD GAS ARTERIAL (03/17/2017 5:29 AM) Component Value Ref Range PH-ART-POC 7.35 7.35 - 7.45 VXM4-LEU-ETB 40 35 - 45 MMHG PO2-ART-POC 90 80 - 100 MMHG Base Def-ART-POC 4.0 MMOL/L O2 Sat-ART-POC 97.0 95 - 99 % Puvszaisytm-KLM-CWZ 22.0 21 - 28 MMOL/L Specimen Performing Laboratory MAIN LAB [address] [place] [address] * BLOOD GASES, ARTERIAL (03/17/2017 5:27 AM) Component Value Ref Range pH-Arterial 7.32 (L) 7.35 - 7.45 pCO2-Arterial 41 35 - 45 MMHG pO2-Arterial 108 (H) 80 - 100 MMHG Base Deficit-Arterial 4.7 MMOL/L O2 Sat-Arterial 98.0 95 - 99 % Wdcrlaynfwd-AUR-Jmf 20.5 (L) 21 - 28 MMOL/L Specimen Performing Laboratory Blood, arterial - Blood [facility] LAB [address] [place] [address] [place] [address] * LIPASE (03/17/2017 4:13 AM) Component Value Ref Range Lipase 45 11 - 82 U/L Specimen Performing Laboratory MAIN LAB [address] [place], [place] [id number] * AMYLASE (03/17/2017 4:13 AM) Component Value Ref Range Amylase 86 24 - 100 U/L Specimen Performing Laboratory MAIN LAB [address] [place], [place] [id number] * CBC AND DIFF (03/17/2017 4:13 AM) [...] K/UL Specimen Performing Laboratory Blood MAIN LAB [address] [place] [address] * IONIZED CALCIUM (03/17/2017 4:13 AM) Component Value Ref Range Ionized Calcium 1.17 1.0 - 1.3 MMOL/L Specimen Performing Laboratory Blood MAIN LAB [address] [place], [place] [id number] * PHOSPHORUS (03/17/2017 4:13 AM) Component Value Ref Range Phosphorus 6.6 (H) 2.0 - 4.0 MG/DL Specimen Performing Laboratory Blood MAIN LAB [address] [place], [place] [id number] * MAGNESIUM (03/17/2017 4:13 AM) Component Value Ref Range Magnesium 2.4Comment: SLT HEMOLYSIS 1.6 - 2.6 mg/dL Specimen Performing Laboratory Blood MAIN LAB [address] [place] [address] * BASIC METABOLIC PANEL (03/17/2017 4:13 AM) [...] Specimen Performing Laboratory Blood MAIN LAB [address] [place] [address] * POC GLUCOSE (03/17/2017 4:00 AM) Component Value Ref Range Glucose, POC 142 (H) 70 - 100 MG/DL Specimen Performing Laboratory MAIN LAB [address] [place] [address] * POC GLUCOSE (03/16/2017 10:18 PM) Component Value Ref Range Glucose, POC 147 (H) 70 - 100 MG/DL Specimen Performing Laboratory [facility] MAIN LAB [address] [place] [address] * CHEST SINGLE VIEW (03/16/2017 10:10 PM) [...] Interface, Radiant Results - 03/17/2017 11:49 AM LIMEHOUSE WORKER CHEST SINGLE VIEW Clinical Indication: Male, 51 [...] expressed in this report Finalized by Lanre aLwler M.D. on 03/17/2017 11:46 AM. Dictated by [...] Interface, Radiant Results - 03/17/2017 11:49 AM LIMEHOUSE WORKER CHEST SINGLE VIEW Clinical Indication: Male, 51 [...] O2 Sat-Arterial 95.1 95 - 99 % Shsqzfzxgfz-WKC-Yqe 23.4 21 - 28 MMOL/L Specimen Performing Laboratory Blood, arterial - Blood MAIN LAB [address] [place] [address] * HEMODIALYSIS INPATIENT (03/16/2017 6:13 PM) Narrative [...] bed. 1530 B/P in the 200s systolic. tool and die engineer giving meds. UF increased to 3.[address] Cardona. 1615 BP remains above 200 systolic. ICU nurse addressing B/P. 1745 Dialysis complete. UF total was 4 liters. Phi DAVE given report. * HEMODIALYSIS DATE (03/16/2017 6:13 PM) Narrative Mihai Aly RN 03/16/20176:13 PM 164 Status: Active Ordering user: Tracie Mitchell MD [...] liters. Potassium bath was 2K+. 1430 Dr. Paula reveles. 1435 Family in room visiting. 1515 Patient has been consistent with putting legs on the side of the bed. 1530 B/P in the 200s systolic. tool and die engineer giving meds. UF increased to 3.[address] Cardona. 1615 BP remains above 200 systolic. ICU nurse addressing B/P. 1745 Dialysis complete. UF total was 4 liters. Phi DAVE given report. * POC GLUCOSE (03/16/2017 5:18 PM) Component Value Ref Range Glucose, POC 127 (H) 70 - 100 MG/DL Specimen Performing Laboratory MAIN LAB [address] [place] [address] * CBC AND DIFF (03/16/2017 2:10 PM) [...] K/UL Specimen Performing Laboratory Blood MAIN LAB [address] [place] [address] * POC GLUCOSE (03/16/2017 11:56 AM) Component Value Ref Range Glucose, POC 193 (H) 70 - 100 MG/DL Specimen Performing Laboratory MAIN LAB [address] [place] [address] * BETA HYDROXYBUTYRATE (KETONES) (03/16/2017 11:20 AM) Component Value Ref Range Beta Hydroxybutyrate 0.1 <0.3 MMOL/L Comment: Beta hydroxybutyrate (BOHB) is the most abundant ketone (78%), followed by acetoacetate (20%) and acetone (2%). Measurement BOHB is recommended to assess ketones in DKA. Expected BOHB Results for DKA: Initial presentation high/increasing During treatment decreasing Resolved decreasing/normal Specimen Performing Laboratory Blood MAIN LAB [address] [place] [address] * LACTIC ACID(LACTATE) (03/16/2017 11:20 AM) Component Value Ref Range Lactic Acid 0.8 0.5 - 2.0 MMOL/L Specimen Performing Laboratory Blood MAIN LAB [address] [place] [address] * POC GLUCOSE (03/16/2017 7:59 AM) Component Value Ref Range Glucose, POC 191 (H) 70 - 100 MG/DL Specimen Performing Laboratory MAIN LAB [address] [place] [address] * CHEST SINGLE VIEW (03/16/2017 6:32 AM) [...] however, the tip is not in the gtlci-ov-gwkz. The heart size remains enlarged. No pulmonary vascular congestion is identified. There is been interval increased left pleural effusion and left basilar consolidation. The right lung remains clear focal consolidation or pleural effusion. No pneumothorax is identified. Procedure Note Interface, Radiant Results - 03/16/2017 11:22 AM LIMEHOUSE WORKER Exam: CHEST SINGLE VIEW History: left sided pleural effusion Comparison: Portable chest dated 03/14/2017.. Findings: The endotracheal tube and esophageal temperature probe have been removed. An enteric tube is again seen and can be followed below the diaphragm, however, the tip is not in the ycnvo-is-ytok. The heart size remains enlarged. No pulmonary [...] O2 Sat-Arterial 96.3 95 - 99 % Ksoyztbzuja-PTV-Tze 16.5 (L) 21 - 28 MMOL/L Specimen Performing Laboratory Blood, arterial - Blood MAIN LAB [address] [place] [address] * IONIZED CALCIUM (03/16/2017 5:07 AM) Component Value Ref Range Ionized Calcium 1.14 1.0 - 1.3 MMOL/L Specimen Performing Laboratory Blood MAIN LAB [address] [place], [place] [id number] * PHOSPHORUS (03/16/2017 5:07 AM) Component Value Ref Range Phosphorus 9.4 (H) 2.0 - 4.0 MG/DL Specimen Performing Laboratory Blood MAIN LAB [address] [place], [place] [id number] * MAGNESIUM (03/16/2017 5:07 AM) Component Value Ref Range Magnesium 2.4 1.6 - 2.6 mg/dL Specimen Performing Laboratory Blood MAIN LAB [address] [place] [address] * BASIC METABOLIC PANEL (03/16/2017 5:07 AM) [...] questions. Specimen Performing Laboratory Blood MAIN LAB [address] [place] [address] * POC GLUCOSE (03/16/2017 4:57 AM) Component Value Ref Range Glucose, POC 162 (H) 70 - 100 MG/DL Specimen Performing Laboratory MAIN LAB [address] [place] [address] * POC GLUCOSE (03/15/2017 8:24 PM) Component Value Ref Range Glucose, POC 182 (H) 70 - 100 MG/DL Specimen Performing Laboratory [facility] [address] [place] [address] * POC GLUCOSE (03/15/2017 5:26 PM) Component Value Ref Range Glucose, POC 163 (H) 70 - 100 MG/DL Specimen Performing Laboratory [facility] [address] [place] [address] * POC GLUCOSE (03/15/2017 12:10 PM) Component Value Ref Range Glucose, POC 162 (H) 70 - 100 MG/DL Specimen Performing Laboratory [facility] [address] [place] [address] * POC GLUCOSE (03/15/2017 8:19 AM) Component Value Ref Range Glucose, POC 163 (H) 70 - 100 MG/DL Specimen Performing Laboratory [facility] [address] [place] [address] * BLOOD GASES, ARTERIAL (03/15/2017 3:30 AM) Component Value Ref Range pH-Arterial 7.32 (L) 7.35 - 7.45 pCO2-Arterial 44 35 - 45 MMHG pO2-Arterial 145 (H) 80 - 100 MMHG Base Deficit-Arterial 3.7 MMOL/L O2 Sat-Arterial 99.5 (H) 95 - 99 % Zrxxeruehxl-FUY-Clk 21.3 21 - 28 MMOL/L Specimen Performing Laboratory Blood, arterial - Blood [facility] LAB [address] [place] [address] * IONIZED CALCIUM (03/15/2017 3:30 AM) Component Value Ref Range Ionized Calcium 1.16 1.0 - 1.3 MMOL/L Specimen Performing Laboratory Blood [facility] LAB [address] [place] [address] * PHOSPHORUS (03/15/2017 3:30 AM) Component Value Ref Range Phosphorus 7.5 (H) 2.0 - 4.0 MG/DL Specimen Performing Laboratory Blood [facility] LAB [address] [place] [address] * MAGNESIUM (03/15/2017 3:30 AM) Component Value Ref Range Magnesium 2.2 1.6 - 2.6 mg/dL Specimen Performing Laboratory Blood MAIN LAB [address] [place] [address] * BASIC METABOLIC PANEL (03/15/2017 3:30 AM) [...] questions. Specimen Performing Laboratory Blood MAIN LAB [address] [place] [address] * POC GLUCOSE (03/15/2017 2:19 AM) Component Value Ref Range Glucose, POC 193 (H) 70 - 100 MG/DL Specimen Performing Laboratory MAIN LAB [address] [place] [address] * POC GLUCOSE (03/14/2017 8:04 PM) Component Value Ref Range Glucose, POC 172 (H) 70 - 100 MG/DL Specimen Performing Laboratory MAIN LAB [address] [place] [address] * POC GLUCOSE (03/14/2017 5:11 PM) Component Value Ref Range Glucose, POC 206 (H) 70 - 100 MG/DL Specimen Performing Laboratory MAIN LAB [address] [place] [address] * CHEST SINGLE VIEW (03/14/2017 5:08 PM) [...] the diaphragm and projects out of the agrjw-ty-sfbj. Metallic wire is noted with tip overlying the tiara which may represent a guidewire. Persistent cardiomegaly without pulmonary venous congestion. Improvement in moderate left pleural effusion with adjacent left lung base consolidation. No pneumothorax. Procedure Note Interface, Radiant Results - 03/16/2017 12:03 AM LIMEHOUSE WORKER Procedure: CHEST SINGLE VIEW Clinical Indication: Status post thoracentesis. Comparison: Chest radiograph March 12, 2017 FINDINGS: Single portable semiupright AP chest radiograph was obtained. Endotracheal tube remains in similar position. Exchange of gastric tube for enteric tube which courses below the diaphragm and projects out of the qkfmb-cb-vprw. Metallic wire is noted with tip overlying [...] Fluid Hematocrit 0.7 % Specimen Performing Laboratory [facility] [address] [place] [address] * CULTURE-TB (AFB) (03/14/2017 4:30 PM) Component Value Ref Range Battery Name AFB CULTURE Specimen Description PLEURAL FLUID L pleural space Special Requests NONE Culture NO GROWTH OF MYCOBACTERIA AT 6 WEEKS Report Status FINAL 04/29/2017 Specimen Performing Laboratory Pleural Fluid MAIN LAB [address] [place] [address] * CULTURE-FUNGAL,OTHER (03/14/2017 4:30 PM) Component Value Ref Range Battery Name FUNGUS CULTURE Specimen Description PLEURAL FLUID L pleural space Special Requests NONE Culture NO GROWTH OF FUNGUS AT 4 WEEKS Report Status FINAL 04/15/2017 Specimen Performing Laboratory Pleural Fluid MAIN LAB [address] [place] [address] * GRAM STAIN (03/14/2017 4:30 PM) Component Value Ref Range Battery Name GRAM STAIN Specimen Description PLEURAL FLUID L pleural space Special Requests NONE Gram Stain RARE NEUTROPHILS MANY RBC'S NO ORGANISMS SEEN Report Status FINAL 03/15/2017 Specimen Performing Laboratory Pleural Fluid MAIN LAB [address] [place] [address] * CULTURE-WOUND/TISSUE/FLUID(AEROBIC ONLY)W/SENSITIVITY (03/14/2017 4:30 PM) Component Value Ref Range Battery Name ROUTINE CULTURE Specimen Description PLEURAL FLUID L pleural space Special Requests NONE Direct Gram Stain RARE NEUTROPHILS MANY RBC'S NO ORGANISMS SEEN Culture NO GROWTH 5 DAYS Report Status FINAL 03/19/2017 Specimen Performing Laboratory Pleural Fluid MAIN LAB [address] [place] [address] * PLEURAL FLUID ALBUMIN (03/14/2017 4:30 PM) Component Value Ref Range Pleural Fluid Albumin 2.3Comment: Pleural fluid albumin gradient >1.2 g/ dL g/dL is suggestive of an exudate Specimen Performing Laboratory Pleural Fluid MAIN LAB [address] [place], [place] [id number] * PLEURAL FLUID TOTAL BILIRUBIN (03/14/2017 4:30 PM) Component Value Ref Range Pleural Fluid Total 2.4 mg/dL Bilirubin Comment: Pleural fluid to serum bilirubin ratio of 0.6 suggests the presence of an exudate Specimen Performing Laboratory Pleural Fluid MAIN LAB [address] [place] [address] * PLEURAL FLUID GLUCOSE (03/14/2017 4:30 PM) Component Value Ref Range Pleural Fluid Glucose 160 (H) 70 - 100 mg/dL Comment: Glucose <60 mg/dL associated with parapneumonic effusion, tuberculosis, malignancy, empyema, and rheumatoid disease Specimen Performing Laboratory Pleural Fluid MAIN LAB [address] [place] [address] * PLEURAL FLUID LACTATE DEHYDROGENASE (03/14/2017 4:30 PM) Component Value Ref Range Pleural Fluid Lactate 255 (H)Comment: Higher levels suggestive of 67 - 140 U/L Dehydrogenase exudate Specimen Performing Laboratory Pleural Fluid MAIN LAB [address] [place] [address] * PLEURAL FLUID PH (03/14/2017 4:30 PM) Component Value Ref Range Pleural Fluid Ph 7.70 (H) 7.60 - 7.66 Specimen Performing Laboratory Pleural Fluid MAIN LAB [address] [place] [address] * PLEURAL FLUID TRIGLYCERIDES (03/14/2017 4:30 PM) Component Value Ref Range Pleural Fluid 20 mg/dL Triglycerides Comment: Triglycerides >110 mg/dL is suggestive of a chylothorax. Triglycerides <50 mg/dL is suggestive of pseudochylothorax. Specimen Performing Laboratory Pleural Fluid [facility] [address] [place] [address] * PLEURAL FLUID TOTAL PROTEIN (03/14/2017 4:30 PM) Component Value Ref Range Pleural Fluid Total 3.8 (H)Comment: Serum to pleural fluid protein <1.1 g/ dL Protein gradient >3.1 g/dL is suggestive of an exudate Specimen Performing Laboratory Pleural Fluid [facility] [address] [place] [address] * CELL COUNT W/DIFF-FLUIDS (03/14/2017 4:30 PM) [...] Laboratory Fluid - Pleural Fluid MAIN LAB [address] [place] [address] * POC GLUCOSE (03/14/2017 12:25 PM) Component Value Ref Range Glucose, POC 161 (H) 70 - 100 MG/DL Specimen Performing Laboratory MAIN LAB [address] [place] [address] * HEMODIALYSIS INPATIENT (03/14/2017 10:41 AM) Narrative Germaine Covarrubias RN 03/14/2017 10:41 AM lining mechanic in patient's room. Patient sedated and on [...] exchanged. * HEMODIALYSIS DATE (03/14/2017 10:41 AM) Narrative Germaine Covarrubias RN 03/14/2017 10:41 AM lining mechanic in patient's room. Patient sedated and on [...] returned manually to patient. Machine exchanged. * NON-TRACK EQUIPMENT OPERATOR CYTOLOGY (BODY FLUIDS/TISSUE) (03/14/2017 8:49 AM) Component Value Ref Range Cytology [facility] [email or web address] Department of Pathology and Laboratory Medicine [address] [place] [address] Surgical Pathology Office: [phone] CYTOLOGY REPORT NAME: NAREN MAYFIELD CYTOLOGY #: [id number] MR #: [id number] ALT ID #: BILLING #: [id number] LOCATION: [facility] DATE OF PROCEDURE: 03/14/2017 AGE: [...] 70 - 100 MG/DL Specimen Performing Laboratory [facility] [address] [place] [address] * BLOOD GASES, ARTERIAL (03/14/2017 5:00 AM) Component Value Ref Range pH-Arterial 7.26 (L) 7.35 - 7.45 pCO2-Arterial 41 35 - 45 MMHG pO2-Arterial 109 (H) 80 - 100 MMHG Base Deficit-Arterial 8.2 MMOL/L O2 Sat-Arterial 98.0 95 - 99 % Zqloatcjkac-TNA-Jtw 17.8 (L) 21 - 28 MMOL/L Specimen Performing Laboratory Blood, arterial - Blood [facility] [address] [place] [address] * IONIZED CALCIUM (03/14/2017 5:00 AM) Component Value Ref Range Ionized Calcium 1.11 1.0 - 1.3 MMOL/L Specimen Performing Laboratory Blood [facility] [address] [place], [place] [id number] * LDH-LACTATE DEHYDROGENASE (03/14/2017 3:15 AM) Component Value Ref Range Lactate Dehydrogenase 225 (H) 100 - 210 U/L Specimen Performing Laboratory [facility] [address] [place] [address] * CHEM 7 ADD ON (03/14/2017 3:15 AM) Component Value Ref Range Total Protein 7.2 6.0 - 8.0 G/DL Total Bilirubin 0.5 0.3 - 1.2 MG/DL Albumin 3.6 3.5 - 5.0 G/DL Alk Phosphatase 71 25 - 110 U/L AST (SGOT) 21 7 - 40 U/L ALT (SGPT) 3 (L) 7 - 56 U/L Specimen Performing Laboratory MAIN LAB [address] [place], [place] [id number] * LIPASE (03/14/2017 3:15 AM) Component Value Ref Range Lipase 26 11 - 82 U/L Specimen Performing Laboratory MAIN LAB [address] [place], [place] [id number] * AMYLASE (03/14/2017 3:15 AM) Component Value Ref Range Amylase 115 (H) 24 - 100 U/L Specimen Performing Laboratory MAIN LAB [address] [place], [place] [id number] * LIPID PROFILE (03/14/2017 3:15 AM) Component [...] 130 mg/dL. Specimen Performing Laboratory MAIN LAB [address] [place], [place] [id number] * PHOSPHORUS (03/14/2017 3:15 AM) Component Value Ref Range Phosphorus 9.1 (H) 2.0 - 4.0 MG/DL Specimen Performing Laboratory Blood [facility] [address] [place] [address] * MAGNESIUM (03/14/2017 3:15 AM) Component Value Ref Range Magnesium 2.7 (H) 1.6 - 2.6 mg/dL Specimen Performing Laboratory Blood MAIN LAB [address] [place], [place] [id number] * BASIC METABOLIC PANEL (03/14/2017 3:15 AM) [...] questions. Specimen Performing Laboratory Blood MAIN LAB [address] [place] [address] * OSMOLALITY (03/14/2017 3:15 AM) Component Value Ref Range Osmolality 312 (H) 280 - 307 MOSMOL/KG Specimen Performing Laboratory Blood MAIN LAB [address] [place] [address] * FIBRINOGEN (03/14/2017 3:15 AM) Component Value Ref Range Fibrinogen 693 (H) 200 - 400 MG/DL Specimen Performing Laboratory Blood MAIN LAB [address] [place], [place] [id number] * CBC AND DIFF (03/14/2017 3:15 AM) [...] - 0.20 K/UL Specimen Performing Laboratory Blood [facility] [address] [place], [place] [id number] * POC GLUCOSE (03/14/2017 3:11 AM) Component Value Ref Range Glucose, POC 82 70 - 100 MG/DL Specimen Performing Laboratory [facility] [address] [place] [address] * POC GLUCOSE (03/13/2017 9:40 PM) Component Value Ref Range Glucose, POC 182 (H) 70 - 100 MG/DL Specimen Performing Laboratory [facility] [address] [place], [place] [id number] * POC GLUCOSE (03/13/2017 4:45 PM) Component Value Ref Range Glucose, POC 152 (H) 70 - 100 MG/DL Specimen Performing Laboratory [facility] [address] [place], [place] [id number] * CBC (03/13/2017 4:25 PM) Component Value [...] - 11 FL Specimen Performing Laboratory Blood [facility] [address] [place] [address] * TEG WITH KAOLIN (03/13/2017 4:25 PM) [...] Laboratory [facility] MAIN LAB [address] [place] [address] * CT ABD/PELV WO CONTRAST (03/13/2017 12:27 [...] Interface, Radiant Results - 03/13/2017 4:[address] ABDOMEN AND PELVIS Clinical Indication: Male, [...] Screen NEG Electronic Crossmatch YES Unit Number [id number] Blood Component Type RBC,ADSOL,LEUKO REDUCED Unit Division 0 Status OF Unit TRANSFUSED Transfusion Status OK TO TRANSFUSE Crossmatch Result COMPATIBLE,ELECTRONIC Specimen Performing Laboratory Blood MAIN LAB [address] [place] [address] * C DIFFICILE BY PCR (03/13/2017 10:30 AM) Component Value Ref Range Battery Name C DIFFICILE PCR Specimen Description FECES Special Requests NONE C. Difficile Toxin B PCR NEGATIVE-wait 7 days to repeat test Report Status FINAL 03/14/2017 Specimen Performing Laboratory Feces MAIN LAB [address] [place] [address] * POC GLUCOSE (03/13/2017 10:24 AM) Component Value Ref Range Glucose, POC 152 (H) 70 - 100 MG/DL Specimen Performing Laboratory MAIN LAB [address] [place], [place] [address] [place] [address] * CT BRAIN PERF (03/13/2017 9:04 AM) [...] Interface, Radiant Results - 03/13/2017 9:44 AM LIMEHOUSE WORKER EXAM: CTA HEAD AND CT PERFUSION HISTORY: [...] Interface, Radiant Results - 03/13/2017 9:44 AM LIMEHOUSE WORKER EXAM: CTA HEAD AND CT PERFUSION HISTORY: [...] O2 Sat-Arterial 98.7 95 - 99 % Fhxzuzhufbs-ZKJ-Jou 21.9 21 - 28 MMOL/L Specimen Performing Laboratory Blood, arterial - Blood MAIN LAB [address] [place] [address] * BLOOD GASES, ARTERIAL (03/13/2017 3:44 AM) Component Value Ref Range pH-Arterial 7.37 7.35 - 7.45 pCO2-Arterial 42 35 - 45 MMHG pO2-Arterial 99 80 - 100 MMHG Base Deficit-Arterial 1.1 MMOL/L O2 Sat-Arterial 97.3 95 - 99 % Vdcplhhssbk-FML-Aso 23.5 21 - 28 MMOL/L Specimen Performing Laboratory Blood, arterial - Blood MAIN LAB [address] [place] [address] * IONIZED CALCIUM (03/13/2017 3:44 AM) Component Value Ref Range Ionized Calcium 1.11 1.0 - 1.3 MMOL/L Specimen Performing Laboratory Blood MAIN LAB [address] [place], [place] [id number] * PHOSPHORUS (03/13/2017 3:44 AM) Component Value Ref Range Phosphorus 6.6 (H) 2.0 - 4.0 MG/DL Specimen Performing Laboratory Blood MAIN LAB [address] [place], [place] [id number] * MAGNESIUM (03/13/2017 3:44 AM) Component Value Ref Range Magnesium 2.2 1.6 - 2.6 mg/dL Specimen Performing Laboratory Blood MAIN LAB [address] [place] [address] * CBC AND DIFF (03/13/2017 3:44 AM) [...] Specimen Performing Laboratory Blood MAIN LAB [address] [place] [address] * BASIC METABOLIC PANEL (03/13/2017 3:44 AM) [...] Specimen Performing Laboratory Blood MAIN LAB [address] [place] [address] * POC GLUCOSE (03/13/2017 3:42 AM) Component Value Ref Range Glucose, POC 129 (H) 70 - 100 MG/DL Specimen Performing Laboratory MAIN LAB [address] [place] [address] * POC GLUCOSE (03/12/2017 11:25 PM) Component Value Ref Range Glucose, POC 197 (H) 70 - 100 MG/DL Specimen Performing Laboratory [facility] MAIN [facility] [address] [place] [address] * POC GLUCOSE (03/12/2017 5:14 PM) Component Value Ref Range Glucose, POC 139 (H) 70 - 100 MG/DL Specimen Performing Laboratory MAIN LAB [address] [place] [address] * HEMODIALYSIS INPATIENT (03/12/2017 4:52 PM) Narrative [...] updated on pt. Pt remains in room [id number] at this time. * HEMODIALYSIS DATE (03/12/2017 [...] updated on pt. Pt remains in room [id number] at this time. * TRANSFUSE RBC'S NON-BLEEDING PT (03/12/2017 1:48 PM) Specimen Performing Laboratory Blood * TRANSFUSE RBC'S NON-BLEEDING PT (03/12/2017 1:48 PM) Specimen Performing Laboratory Blood * POC GLUCOSE (03/12/2017 11:49 AM) Component Value Ref Range Glucose, POC 165 (H) 70 - 100 MG/DL Specimen Performing Laboratory [facility] MAIN [facility] [address] [place] [address] * ABDOMEN AP ONLY (03/12/2017 11:08 AM) [...] Interface, Radiant Results - 03/12/2017 11:36 AM LIMEHOUSE WORKER Supine abdomen CLINICAL HISTORY: Post feeding tube [...] Sat-Arterial 92.3 (L) 95 - 99 % Twoojcirjqa-FNH-Qof 20.9 (L) 21 - 28 MMOL/L Specimen Performing Laboratory Blood, arterial - Blood [facility] MAIN [facility] [address] [place] [address] * ECG-SCAN (03/12/2017 10:05 AM) Narrative Ordered [...] level <7%. Specimen Performing Laboratory MAIN LAB [address] [place] [address] * BLOOD GASES, ARTERIAL (03/12/2017 3:44 AM) Component Value Ref Range pH-Arterial 7.35 7.35 - 7.45 pCO2-Arterial 42 35 - 45 MMHG pO2-Arterial 132 (H) 80 - 100 MMHG Base Deficit-Arterial 2.1 MMOL/L O2 Sat-Arterial 98.9 95 - 99 % Xptxqnaulfw-OUV-Rdo 22.7 21 - 28 MMOL/L Specimen Performing Laboratory Blood, arterial - Blood MAIN LAB [address] [place] [address] * IONIZED CALCIUM (03/12/2017 3:44 AM) Component Value Ref Range Ionized Calcium 1.14 1.0 - 1.3 MMOL/L Specimen Performing Laboratory Blood MAIN LAB [address] [place] [address] * PHOSPHORUS (03/12/2017 3:44 AM) Component Value Ref Range Phosphorus 8.7 (H) 2.0 - 4.0 MG/DL Specimen Performing Laboratory Blood MAIN LAB [address] [place] [address] * MAGNESIUM (03/12/2017 3:44 AM) Component Value Ref Range Magnesium 2.2 1.6 - 2.6 mg/dL Specimen Performing Laboratory Blood MAIN LAB [address] [place] [address] * CBC AND DIFF (03/12/2017 3:44 AM) [...] Performing Laboratory Blood [facility] MAIN [facility] [address] [place] [address] * BASIC METABOLIC PANEL (03/12/2017 3:44 AM) [...] Performing Laboratory Blood [facility] MAIN [facility] [address] [place] [address] * CHEST SINGLE VIEW (03/12/2017 3:40 AM) [...] the diaphragm and projects out of the ortgk-hk-sktj. Persistent cardiomegaly without pulmonary venous congestion. Large left pleural effusion with adjacent consolidation. No pneumothorax. Procedure Note Interface, Radiant Results - 03/12/2017 11:09 AM LIMEHOUSE WORKER Procedure: CHEST SINGLE VIEW Clinical Indication: Pleural effusion. Comparison: Chest radiograph March 10, 2017 FINDINGS: Single portable supine AP chest radiograph was obtained. Endotracheal tube with tip well above the tiara at the level of the clavicles. Gastric tube courses below the diaphragm and projects out of the lnbfc-ti-icde. Persistent cardiomegaly without pulmonary venous congestion. Large [...] Interface, Radiant Results - 03/11/2017 5:03 PM LIMEHOUSE WORKER EXAM: CT HEAD HISTORY: , craniectomy last [...] Range BSA 2.35 m2 CV ECHO PV BLOCK GREASER TENZIN Anand LVIDD 5.9 4.2 - 5.9 [...] Gann RN 03/11/20172:41 PM 0900 Arrived in [facility] to set up for dialysis. Assessment completed and documented. Care of pt, respirator and all lines remains with his primary 4TH GRADE TEACHERTENZIN Jean. Left AVF assessed and found to [...] and paper tape. Report given to primary 4TH GRADE TEACHERTENZIN Jean. * TROPONIN-I (03/11/2017 8:43 AM) Component Value Ref Range Troponin-I 0.17 (H) 0.0 - 0.05 NG/ML Specimen Performing Laboratory Blood MAIN LAB [address] [place] [address] * TROPONIN-I (03/11/2017 6:07 AM) Component Value Ref Range Troponin-I 0.16 (H) 0.0 - 0.05 NG/ML Specimen Performing Laboratory Blood MAIN LAB [address] [place], [place] [id number] * IONIZED CALCIUM (03/11/2017 3:55 AM) Component Value Ref Range Ionized Calcium 1.05 1.0 - 1.3 MMOL/L Specimen Performing Laboratory MAIN LAB [address] [place] [address] * TROPONIN-I (03/11/2017 3:55 AM) Component Value Ref Range Troponin-I 0.15 (H) 0.0 - 0.05 NG/ML Specimen Performing Laboratory MAIN LAB [address] [place] [address] * BLOOD GASES, ARTERIAL (03/11/2017 3:55 AM) Component Value Ref Range pH-Arterial 7.36 7.35 - 7.45 pCO2-Arterial 41 35 - 45 MMHG pO2-Arterial 135 (H) 80 - 100 MMHG Base Deficit-Arterial 2.3 MMOL/L O2 Sat-Arterial 99.2 (H) 95 - 99 % Qonyyxxcqop-KIC-Qul 22.5 21 - 28 MMOL/L Specimen Performing Laboratory Blood, arterial - Blood MAIN LAB [address] [place], [place] [id number] * PHOSPHORUS (03/11/2017 3:55 AM) Component Value Ref Range Phosphorus 9.1 (H) 2.0 - 4.0 MG/DL Specimen Performing Laboratory Blood MAIN LAB [address] [place] [address] * MAGNESIUM (03/11/2017 3:55 AM) Component Value Ref Range Magnesium 2.1 1.6 - 2.6 mg/dL Specimen Performing Laboratory Blood MAIN LAB [address] [place] [address] * CBC AND DIFF (03/11/2017 3:55 AM) [...] K/UL Specimen Performing Laboratory Blood MAIN LAB [address] [place] [address] * BASIC METABOLIC PANEL (03/11/2017 3:55 AM) [...] Performing Laboratory Blood [facility] MAIN [facility] [address] [place] [address] * TROPONIN-I (03/11/2017 12:50 AM) Component Value Ref Range Troponin-I 0.13 (H) 0.0 - 0.05 NG/ML Specimen Performing Laboratory Blood [facility] MAIN [facility] [address] [place] [address] * BLOOD GASES, ARTERIAL (03/11/2017 12:50 AM) Component Value Ref Range pH-Arterial 7.36 7.35 - 7.45 pCO2-Arterial 41 35 - 45 MMHG pO2-Arterial 140 (H) 80 - 100 MMHG Base Deficit-Arterial 2.1 MMOL/L O2 Sat-Arterial 99.3 (H) 95 - 99 % Rajaosodbgu-EKE-Qgx 22.7 21 - 28 MMOL/L Specimen Performing Laboratory Blood, arterial - Blood [facility] MAIN LAB [address] [place] [address] * FLUORO MOBILE IN OR (03/10/2017 10:18 [...] angiography is performed to evaluate the vasculature. FLATWORK IRONER. Rohit CONSULTING ANALYST. David PGY-6 PROCEDURE. 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 Patient required emergent reoperation for neurologic change. CT perfusion demonstrates prolonged mean transit times involving the inferior division of the right MCA. Intraoperative angiography is performed to evaluate the vasculature. FLATWORK IRONER. Rohit CONSULTING ANALYST. David PGY-6 PROCEDURE. Intraoperative angiography right internal [...] CT and then to OR for second time.Manager Of Radiology contacted and said patient may be done the next morning.Unit nurse also said patient may still have needles from outpatient dialysis unit in fistula. Patient already in OR. * POC IONIZED CALCIUM (03/10/2017 9:03 PM) Component Value Ref Range Ionized Calcium-POC 0.98 (L) 1.0 - 1.3 MMOL/L Specimen Performing Laboratory MAIN LAB [address] [place], [place] [id number] * POC SODIUM (03/10/2017 9:03 PM) Component Value Ref Range Sodium-POC 134 (L) 137 - 147 MMOL/L Specimen Performing Laboratory MAIN LAB [address] [place], [place] [id number] * POC POTASSIUM (03/10/2017 9:03 PM) Component Value Ref Range Potassium-POC 4.0 3.5 - 5.1 MMOL/L Specimen Performing Laboratory MAIN LAB [address] [place], [place] [id number] * POC HEMATOCRIT (03/10/2017 9:03 PM) Component Value Ref Range Hemoglobin POC 9.5 (L) 13.5 - 16.5 GM/DL Hematocrit POC 28.0 (L) 40 - 50 % Specimen Performing Laboratory MAIN LAB [address] [place], [place] [id number] * POC BLOOD GAS ARTERIAL (03/10/2017 9:03 PM) Component Value Ref Range PH-ART-POC 7.34 (L) 7.35 - 7.45 UUA8-ZKF-IUA 44 35 - 45 MMHG PO2-ART-POC 69 (L) 80 - 100 MMHG Base Def-ART-POC 2.0 MMOL/L O2 Sat-ART-POC 92.0 (L) 95 - 99 % Isxnahnqyzl-KAG-IHL 23.7 21 - 28 MMOL/L Specimen Performing Laboratory MAIN LAB [address] [place] [address] * TROPONIN-I (03/10/2017 8:50 PM) Component Value Ref Range Troponin-I 0.16 (H) 0.0 - 0.05 NG/ML Specimen Performing Laboratory MAIN LAB [address] [place] [address] * PHOSPHORUS (03/10/2017 8:50 PM) Component Value Ref Range Phosphorus 8.1 (H) 2.0 - 4.0 MG/DL Specimen Performing Laboratory MAIN LAB [address] [place] [address] * CBC (03/10/2017 8:50 PM) Component Value [...] 11 FL Specimen Performing Laboratory MAIN LAB [address] [place] [address] * BASIC METABOLIC PANEL (03/10/2017 8:50 PM) [...] for questions. Specimen Performing Laboratory MAIN LAB [address] [place] [address] * PTT (APTT) (03/10/2017 8:50 PM) Component Value Ref Range APTT 29.8Comment: NOTE NEW REFERENCE RANGES 21.0 - 39.0 SEC Specimen Performing Laboratory Blood MAIN LAB [address] [place] [address] * PROTIME INR (PT) (03/10/2017 8:50 PM) Component Value Ref Range INR 1.3 (H) 0.8 - 1.2 Specimen Performing Laboratory Blood [facility] MAIN LAB [address] [place] [address] * CT BRAIN PERF (03/10/2017 8:35 PM) [...] Interface, Radiant Results - 03/10/2017 9:56 PM LIMEHOUSE WORKER EXAM: CTA HEAD AND NECK, CTA BRAIN [...] Interface, Radiant Results - 03/10/2017 9:56 PM LIMEHOUSE WORKER EXAM: CTA HEAD AND NECK, CTA BRAIN [...] 1.3 MMOL/L Specimen Performing Laboratory MAIN LAB [address] [place] [address] * POC SODIUM (03/10/2017 5:00 PM) Component Value Ref Range Sodium-POC 135 (L) 137 - 147 MMOL/L Specimen Performing Laboratory MAIN LAB [address] [place] [address] * POC POTASSIUM (03/10/2017 5:00 PM) Component Value Ref Range Potassium-POC 4.0 3.5 - 5.1 MMOL/L Specimen Performing Laboratory MAIN LAB [address] [place] [address] * POC HEMATOCRIT (03/10/2017 5:00 PM) Component Value Ref Range Hemoglobin POC 8.5 (L) 13.5 - 16.5 GM/DL Hematocrit POC 25.0 (L) 40 - 50 % Specimen Performing Laboratory MAIN LAB [address] [place] [address] * POC BLOOD GAS ARTERIAL (03/10/2017 5:00 PM) Component Value Ref Range PH-ART-POC 7.40 7.35 - 7.45 XQD5-PLZ-MHN 37 35 - 45 MMHG PO2-ART-POC 76 (L) 80 - 100 MMHG Base Def-ART-POC 2.0 MMOL/L O2 Sat-ART-POC 95.0 95 - 99 % Akoalzaescx-NCK-LYN 23.0 21 - 28 MMOL/L Specimen Performing Laboratory MAIN LAB [address] [place] [address] * POC IONIZED CALCIUM (03/10/2017 2:30 PM) Component Value Ref Range Ionized Calcium-POC 0.97 (L) 1.0 - 1.3 MMOL/L Specimen Performing Laboratory MAIN LAB [address] [place], [place] [id number] * POC SODIUM (03/10/2017 2:30 PM) Component Value Ref Range Sodium-POC 135 (L) 137 - 147 MMOL/L Specimen Performing Laboratory MAIN LAB [address] [place] [address] * POC POTASSIUM (03/10/2017 2:30 PM) Component Value Ref Range Potassium-POC 4.0 3.5 - 5.1 MMOL/L Specimen Performing Laboratory MAIN LAB [address] [place], [place] [id number] * POC HEMATOCRIT (03/10/2017 2:30 PM) Component Value Ref Range Hemoglobin POC 8.8 (L) 13.5 - 16.5 GM/DL Hematocrit POC 26.0 (L) 40 - 50 % Specimen Performing Laboratory MAIN LAB [address] [place], [place] [id number] * POC BLOOD GAS ARTERIAL (03/10/2017 2:30 PM) Component Value Ref Range PH-ART-POC 7.42 7.35 - 7.45 NPN9-OEB-YGJ 37 35 - 45 MMHG PO2-ART-POC 72 (L) 80 - 100 MMHG Base Ex-ART-POC 0.0 MMOL/L O2 Sat-ART-POC 95.0 95 - 99 % Rhplhscazpw-SZU-DMA 24.0 21 - 28 MMOL/L Specimen Performing Laboratory MAIN LAB [address] [place] [address] * POC GLUCOSE (03/10/2017 12:10 PM) Component Value Ref Range Glucose, POC 90 70 - 100 MG/DL Specimen Performing Laboratory MAIN LAB [address] [place], [place] [id number] * POC IONIZED CALCIUM (03/10/2017 11:29 AM) Component Value Ref Range Ionized Calcium-POC 1.01 1.0 - 1.3 MMOL/L Specimen Performing Laboratory MAIN LAB [address] [place] [address] * POC SODIUM (03/10/2017 11:29 AM) Component Value Ref Range Sodium-POC 135 (L) 137 - 147 MMOL/L Specimen Performing Laboratory MAIN LAB [address] [place] [address] * POC POTASSIUM (03/10/2017 11:29 AM) Component Value Ref Range Potassium-POC 3.5 3.5 - 5.1 MMOL/L Specimen Performing Laboratory MAIN LAB [address] [place], [place] [id number] * POC HEMATOCRIT (03/10/2017 11:29 AM) Component Value Ref Range Hemoglobin POC 8.5 (L) 13.5 - 16.5 GM/DL Hematocrit POC 25.0 (L) 40 - 50 % Specimen Performing Laboratory MAIN LAB [address] [place] [address] * POC BLOOD GAS ARTERIAL (03/10/2017 11:29 AM) Component Value Ref Range PH-ART-POC 7.45 7.35 - 7.45 OSX0-MHL-XGQ 36 35 - 45 MMHG PO2-ART-POC 86 80 - 100 MMHG Base Ex-ART-POC 1.0 MMOL/L O2 Sat-ART-POC 97.0 95 - 99 % Otwuqhdrwfu-RFL-ZZH 24.6 21 - 28 MMOL/L Specimen Performing Laboratory MAIN LAB [address] [place] [address] * POC IONIZED CALCIUM (03/10/2017 10:18 AM) Component Value Ref Range Ionized Calcium-POC 1.02 1.0 - 1.3 MMOL/L Specimen Performing Laboratory MAIN LAB [address] [place], [place] [id number] * POC SODIUM (03/10/2017 10:18 AM) Component Value Ref Range Sodium-POC 135 (L) 137 - 147 MMOL/L Specimen Performing Laboratory MAIN LAB [address] [place] [address] * POC POTASSIUM (03/10/2017 10:18 AM) Component Value Ref Range Potassium-POC 3.4 (L) 3.5 - 5.1 MMOL/L Specimen Performing Laboratory MAIN LAB [address] [place] [address] * POC HEMATOCRIT (03/10/2017 10:18 AM) Component Value Ref Range Hemoglobin POC 7.8 (L) 13.5 - 16.5 GM/DL Hematocrit POC 23.0 (L) 40 - 50 % Specimen Performing Laboratory MAIN LAB [address] [place] [address] * POC BLOOD GAS ARTERIAL (03/10/2017 10:18 AM) Component Value Ref Range PH-ART-POC 7.46 (H) 7.35 - 7.45 BBI5-QRB-WFB 35 35 - 45 MMHG PO2-ART-POC 90 80 - 100 MMHG Base Ex-ART-POC 1.0 MMOL/L O2 Sat-ART-POC 97.0 95 - 99 % Rjjldbsrrmr-FQF-OSZ 25.0 21 - 28 MMOL/L Specimen Performing Laboratory MAIN LAB [address] [place] [address] * IR ARTERIOGRAM NEURO (03/10/2017 9:34 AM) Specimen Performing Laboratory RAD RESULTS Impressions 1. Sluggish flow in [...] angiography is performed to evaluate the vasculature. FLATWORK IRONER. Rohit CONSULTING ANALYST. David PGY-6 PROCEDURE. 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 Patient required emergent reoperation for neurologic change. CT perfusion demonstrates prolonged mean transit times involving the inferior division of the right MCA. Intraoperative angiography is performed to evaluate the vasculature. FLATWORK IRONER. Rohit CONSULTING ANALYST. David PGY-6 PROCEDURE. Intraoperative angiography right internal [...] Bee M.D. on 03/26/2017 2:57 PM. * ABDOMEN AP ONLY (03/10/2017 7:57 AM) [...] Interface, Radiant Results - 03/10/2017 10:16 AM LIMEHOUSE WORKER ABDOMEN AP ONLY Indication: gastric tube placement [...] POS Specimen Performing Laboratory Blood MAIN LAB [address] [place] [address] * TRIGLYCERIDE (03/10/2017 3:25 AM) Component Value Ref Range Triglycerides 84 <150 MG/DL Specimen Performing Laboratory MAIN LAB [address] [place] [address] * IONIZED CALCIUM (03/10/2017 3:25 AM) Component Value Ref Range Ionized Calcium 1.01 1.0 - 1.3 MMOL/L Specimen Performing Laboratory Blood MAIN LAB [address] [place] [address] * PHOSPHORUS (03/10/2017 3:25 AM) Component Value Ref Range Phosphorus 6.1 (H) 2.0 - 4.0 MG/DL Specimen Performing Laboratory Blood MAIN LAB [address] [place] [address] * MAGNESIUM (03/10/2017 3:25 AM) Component Value Ref Range Magnesium 2.2 1.6 - 2.6 mg/dL Specimen Performing Laboratory Blood MAIN LAB [address] [place] [address] * CBC AND DIFF (03/10/2017 3:25 AM) [...] - 0.20 K/UL Specimen Performing Laboratory Blood [facility] [employer] [facility] MAIN LAB [address] [place] [address] * BASIC METABOLIC PANEL (03/10/2017 3:25 AM) [...] Performing Laboratory Blood [facility] MAIN LAB [address] [place] [address] * TYPE & CROSSMATCH (03/10/2017 3:25 AM) Component Value Ref Range Units Ordered 4 Crossmatch Expires 03/13/2017 Record Check 2ND TYPE REQUIRED ABO/RH(D) A POS Antibody Screen NEG Electronic Crossmatch YES Unit Number [id number] Blood Component Type RBC,ADSOL,LEUKO REDUCED Unit Division 0 Status OF Unit DISCARDED Transfusion Status OK TO TRANSFUSE Crossmatch Result COMPATIBLE,ELECTRONIC Unit Number [id number] Blood Component Type RBC,ADSOL,LEUKO REDUCED Unit Division 0 Status OF Unit TRANSFUSED Transfusion Status OK TO TRANSFUSE Crossmatch Result COMPATIBLE,ELECTRONIC Unit Number [id number] Blood Component Type RBC,ADSOL,LEUKO REDUCED Unit Division 0 Status OF Unit REL FROM ALLOC Transfusion Status OK TO TRANSFUSE Crossmatch Result COMPATIBLE,ELECTRONIC Unit Number [id number] Blood Component Type RBC,ADSOL,LEUKO REDUCED Unit Division 0 Status OF Unit REL FROM ALLOC Transfusion Status OK TO TRANSFUSE Crossmatch Result COMPATIBLE,ELECTRONIC Unit Number [id number] Blood Component Type RBC,ADSOL,LEUKO REDUCED Unit Division 0 Status OF Unit TRANSFUSED Transfusion Status OK TO TRANSFUSE Crossmatch Result COMPATIBLE,ELECTRONIC Specimen Performing Laboratory [facility] [address] [place] [address] * CHEST SINGLE VIEW (03/10/2017 1:47 AM) [...] Interface, Radiant Results - 03/10/2017 10:56 AM LIMEHOUSE WORKER CHEST SINGLE VIEW Indication: Male, 51 years [...] costophrenic angles are not included within the [id number]. No pneumothorax. Right AC joint arthrosis. Procedure Note Interface, Radiant Results - 03/09/2017 9:32 PM LIMEHOUSE WORKER CHEST SINGLE VIEW Clinical history: Repositioned endotracheal [...] costophrenic angles are not included within the [id number]. No pneumothorax. Right AC joint arthrosis. IMPRESSION [...] (PCP) 25 NG/ML Specimen Performing Laboratory Urine [facility] [address] [place] [address] * OPIATES-URINE RANDOM (03/09/2017 6:45 PM) Component Value Ref Range Opiates-Urine NEG NEG-NEG Comment: RESULTS WERE OBTAINED BY IMMUNOASSAY AND ARE PRESUMPTIVE ONLY. POSITIVE INDICATES THE PRESENCE OF SUBSTANCE WITH CHARACTERISTICS SIMILAR TO DRUG-DRUG CLASS OR METABOLITE IN CONC. EQUAL TO OR EXCEEDING VALUES LISTED. OPIATES 200 0 NG/ML Specimen Performing Laboratory Urine [facility] [address] [place] [address] * COCAINE-URINE RANDOM (03/09/2017 6:45 PM) Component Value Ref Range Cocaine-Urine NEG NEG-NEG Comment: RESULTS WERE OBTAINED BY IMMUNOASSAY AND ARE PRESUMPTIVE ONLY. POSITIVE INDICATES THE PRESENCE OF SUBSTANCE WITH CHARACTERISTICS SIMILAR TO DRUG-DRUG CLASS OR METABOLITE IN CONC. EQUAL TO OR EXCEEDING VALUES LISTED. COCAINE 300 NG/ML Specimen Performing Laboratory Urine [facility] [address] [place] [address] * CANNABINOIDS-URINE RANDOM (03/09/2017 6:45 PM) Component Value Ref Range THC NEG NEG-NEG Comment: RESULTS WERE OBTAINED BY IMMUNOASSAY AND ARE PRESUMPTIVE ONLY. POSITIVE INDICATES THE PRESENCE OF SUBSTANCE WITH CHARACTERISTICS SIMILAR TO DRUG-DRUG CLASS OR METABOLITE IN CONC. EQUAL TO OR EXCEEDING VALUES LISTED. CANNABINOIDS 50 NG/ML Specimen Performing Laboratory Urine [facility] [address] [place] [address] * BENZODIAZEPINES-URINE RANDOM (03/09/2017 6:45 PM) Component Value Ref Range Benzodiazepines POS (A) NEG-NEG Comment: RESULTS WERE OBTAINED BY IMMUNOASSAY AND ARE PRESUMPTIVE ONLY. POSITIVE INDICATES THE PRESENCE OF SUBSTANCE WITH CHARACTERISTICS SIMILAR TO DRUG-DRUG CLASS OR METABOLITE IN CONC. EQUAL TO OR EXCEEDING VALUES LISTED. BENZODIAZEPINES 200 NG/ML Specimen Performing Laboratory Urine [facility] [address] [place] [id number] * BARBITURATES-URINE RANDOM (03/09/2017 6:45 PM) Component Value Ref Range Barbiturates,Urine NEG NEG-NEG Comment: RESULTS WERE OBTAINED BY IMMUNOASSAY AND ARE PRESUMPTIVE ONLY. POSITIVE INDICATES THE PRESENCE OF SUBSTANCE WITH CHARACTERISTICS SIMILAR TO DRUG-DRUG CLASS OR METABOLITE IN CONC. EQUAL TO OR EXCEEDING VALUES LISTED. BARBITURATES 200 NG/ML Specimen Performing Laboratory Urine [facility] [address] [place] [address] * AMPHETAMINES-URINE RANDOM (03/09/2017 6:45 PM) Component Value Ref Range Amphetamines POS (A) NEG-NEG Comment: RESULTS WERE OBTAINED BY IMMUNOASSAY AND ARE PRESUMPTIVE ONLY. POSITIVE INDICATES THE PRESENCE OF SUBSTANCE WITH CHARACTERISTICS SIMILAR TO DRUG-DRUG CLASS OR METABOLITE IN CONC. EQUAL TO OR EXCEEDING VALUES LISTED. AMPHETAMINES 1000 NG/ML Specimen Performing Laboratory Urine [facility] [address] [place], [place] [id number] * IONIZED CALCIUM (03/09/2017 6:43 PM) Component Value Ref Range Ionized Calcium 1.10 1.0 - 1.3 MMOL/L Specimen Performing Laboratory [facility] [address] [place] [address] * BLOOD GASES, ARTERIAL (03/09/2017 6:43 PM) Component Value Ref Range pH-Arterial 7.37 7.35 - 7.45 pCO2-Arterial 50 (H) 35 - 45 MMHG pO2-Arterial 118 (H) 80 - 100 MMHG Base Excess-Arterial 3.3 MMOL/L O2 Sat-Arterial 98.6 95 - 99 % [id number] 27.4 21 - 28 MMOL/L Specimen Performing Laboratory Blood, arterial - [facility] [address] [place] [address] * PHOSPHORUS (03/09/2017 6:43 PM) Component Value Ref Range Phosphorus 6.0 (H) 2.0 - 4.0 MG/DL Specimen Performing Laboratory [facility] [address] [place], [place] [id number] * MAGNESIUM (03/09/2017 6:43 PM) Component Value Ref Range Magnesium 2.1 1.6 - 2.6 mg/dL Specimen Performing Laboratory [facility] [address] [place] [address] * COMPREHENSIVE METABOLIC PANEL (03/09/2017 6:43 PM) [...] questions. Specimen Performing Laboratory [facility] [address] [place] [address] * PTT (APTT) (03/09/2017 6:43 PM) Component Value Ref Range APTT 31.9Comment: NOTE NEW REFERENCE RANGES 21.0 - 39.0 SEC Specimen Performing Laboratory [facility] [address] [place] [address] * PROTIME INR (PT) (03/09/2017 6:43 PM) Component Value Ref Range INR 1.3 (H) 0.8 - 1.2 Specimen Performing Laboratory [facility] [address] [place] [address] * CBC AND DIFF (03/09/2017 6:43 PM) [...] K/UL Specimen Performing Laboratory [facility] [address] [place], [place] [address] [address] * IR ARTERIOGRAM NEURO (03/09/2017 6:35 PM) Specimen Performing Laboratory [facility] RAD RESULTS Addenda Addendum by Lyly Rogel MD on 03/11/2017 10:05 AM Finalized by LYLY ROGEL M.D. on 03/11/2017 8:34 AM. Dictated by LYLY ROGEL M.D. on 03/11/2017 8:22 AM.Addendum: Left Common Femoral Vein Central Line Placement Under fluoroscopic guidance a 4 Russian 10 cm central venous line was placed [...] Fentanyl 100 mcg Contrast - 100 cc [id number] Total mGy - 1174 Anesthesia:conscious sedation Consent [...] establishing arterial access. RCCA Technique A 5 Russian 100 cm Vert catheter was advanced over a 150 cm 0.035 Lamar wire over the aortic arch and into [...] under fluoroscopic and roadmap guidance over the Lamar wire and images were obtained in biplane [...] therefore, hemostasis was achieved using a 6 Russian Angioseal closure device followed by manual pressure for 5 minutes. The patient was transported to the neuro ICU in stable clinical and hemodynamic conditions. Complications - none immediate Procedure Note Interface, Radiant Results - 03/11/2017 10:05 AM LIMEHOUSE WORKER Cerebral Angiogram Indication - SAH with IPH [...] Fentanyl 100 mcg Contrast - 100 cc [id number] Total mGy - 1174 Anesthesia: conscious sedation [...] establishing arterial access. RCCA Technique A 5 Russian 100 cm Vert catheter was advanced over a 150 cm 0.035 Lamar wire over the aortic arch and into [...] under fluoroscopic and roadmap guidance over the Lamar wire and images were obtained in biplane [...] therefore, hemostasis was achieved using a 6 Russian Angioseal closure device followed by manual pressure [...] Interface, Radiant Results - 03/09/2017 6:58 PM LIMEHOUSE WORKER EXAM: CTA HEAD HISTORY: 51-year-old male, subarachnoid [...] Interface, Radiant Results - 03/10/2017 10:56 AM LIMEHOUSE WORKER CHEST SINGLE VIEW Indication: Male, 51 years [...] of head Intraparenchymal hematoma of brain (HCC) Admitting Diagnoses Diagnosis subarachnoid hemorrhage Subarachnoid bleed (HCC) 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HCC) Subarachnoid hemorrhage Brain aneurysm Cerebral aneurysm, nonruptured 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HCC) Subarachnoid hemorrhage Acquired skull defect Other specified acquired deformity of head Administered Medications Medication Order MAR Action Action Date Dose Rate Site acetaminophen (TYLENOL) oral solution Given 03/22/2017 650 mg 650 mg 23:54 [employer]IMEHOUSE WORKER 650 mg, Per NG tube, EVERY 4 HOURS PRN, Starting Sat03/20/17 at 0149, Until Sat03/24/17 at 0134, Pain non-opioid: may be used alone or in combination with opioid analgesia, TOTAL ACETAMINOPHEN DOSE NOT TO EXCEED 4GM DAILY Given 03/23/2017 650 mg 08:01 L[employer]HOU[employer] WORKER Given 03/23/2017 650 mg 16:01 [employer]HOUSE WORKER acetaminophen (TYLENOL) tablet 650 mg Given 03/17/2017 650 mg 650 mg, Oral, EVERY 4 HOURS PRN, 20:19 [employer]IMEHOUSE WORKER Starting Sat03/11/17 at 2330, Until Sat03/20/17 at 0151, Pain non-opioid: may be used alone or in combination with opioid analgesia, TOTAL ACETAMINOPHEN DOSE NOT TO EXCEED 4GM DAILY Given 03/19/2017 650 mg 11:22 L[employer]HOUSE WORKER Given 03/19/2017 650 mg 17:27 L[employer]HOUSE WORKER acetaminophen (TYLENOL) tablet 650 mg Given 03/24/2017 650 mg 650 mg, Oral, EVERY 4 HOURS PRN, 08:03 LIMEHOUSE WORKER Starting Sat03/24/17 at 0138, Until Sat03/26/17 at 1750, Pain non-opioid: may be used alone or in combination with opioid analgesia, TOTAL ACETAMINOPHEN DOSE NOT TO EXCEED 4GM DAILY Given 03/25/2017 650 mg 18:41 L[employer]HOUSE WORKER Given 03/26/2017 650 mg 10:01 LIMEHOUSE WORKER ACETAMINOPHEN 325 MG PO TAB (Cabinet Override) NOW, 1 dose, Sat03/26/17 at 1000, Created by cabinet override amLODIPine (NORVASC) tablet 10 mg Given 03/24/2017 10 mg 10 mg, Oral, DAILY, First dose on Sat 09:03 LIMEHOUSE WORKER 03/20/17 at 1100, Until Discontinued, NURSING: Please educate patient and document: Do not give with grapefruit juice. Given 03/25/2017 10 mg 08:21 LIMEHOUSE WORKER Given 03/26/2017 10 mg 14:05 L[employer]HOUSE WORKER atorvastatin (LIPITOR) tablet 10 mg Given 03/23/2017 10 mg 10 mg, Oral, AT BEDTIME DAILY, First 21:16 L[employer]HOUSE WORKER dose on Sat03/15/17 at 2100, Until Discontinued Given 03/24/2017 10 mg 21:26 L[employer]HOUSE WORKER Given 03/25/2017 10 mg 20:52 [employer]HOUSE WORKER barium sulfate 40 % (VARIBAR HONEY) oral Given 03/21/2017 10 mL suspension 10 mL 15:30 LIMEHOUSE WORKER 10 mL, Oral, ONCE, 1 dose, Becky 03/21/17 at 1545, GI Procedure Area Only barium sulfate 40 % (VARIBAR NECTAR) Given 03/21/2017 10 mL oral suspension 10 mL 15:30 LIMEHOUSE WORKER 10 mL, Oral, ONCE, 1 dose, Becky 03/21/17 at 1545, GI Procedure Area Only barium sulfate 40 % (VARIBAR PUDDING) Given 03/21/2017 10 mL oral paste 10 mL 15:30 LIMEHOUSE WORKER 10 mL, Oral, ONCE, 1 dose, Becky 03/21/17 at 1545, GI Procedure Area Only barium sulfate 40 % (VARIBAR THIN Given 03/21/2017 10 mL LIQUID) oral powder for suspension 10 mL 15:30 LIMEHOUSE WORKER 10 mL, Oral, ONCE, 1 dose, Becky [...] Given 03/11/2017 10 mg 10 mg 20:41 L[employer]HOUSE WORKER 10 mg, Rectal, DAILY, First dose on Sat03/11/17 at 2100, Until Discontinued, Hold for loose stools ceFAZolin (ANCEF) IVP 1 g Given 03/11/2017 1 g 1 g, Intravenous, EVERY 24 HOURS, First 17:00 L[employer]HOUSE WORKER dose on Sat03/11/17 at 1600, Until Discontinued, Administer after HD on HD days IV PUSH -- RECONSTITUTE each 1 g vial by adding 10 mL 0.9% NACL Given 03/12/2017 1 g 16:15 L[employer]HOUSE WORKER chlorhexidine gluconate (PERIDEX) 0.12 % Given 03/16/2017 15 mL solution 15 mL 09:00 L[employer]HOUSE WORKER 15 mL, Swish & Spit, TWICE DAILY, First dose on Sat03/11/17 at 1200, Until Discontinued Given 03/16/2017 15 mL 22:19 L[employer]HOU[employer] WORKER Given 03/17/2017 15 mL 09:09 [employer]HOU[employer] WORK[employer] dexmedetomidine (PRECEDEX) 400 mcg/NS Dose/Rate 03/15/2017 0.2 5.8 mL/ hr 100 ml IV drip Change 21:54 L[employer]HOU[employer] WORKER mcg/kg/hr 0.2-1 mcg/kg/hr 115.1 kg (5.755-28.775 mL/hr, [...] Infusion Restarted 03/16/2017 0.3 8.6 mL/hr 01:18 L[employer]HOUSE WORKER mcg/kg/hr Given - New Bag 03/16/2017 0.3 8.6 mL/hr 03:42 L[employer]HOUSE WORKER mcg/kg/hr dexmedetomidine (PRECEDEX) 400 mcg/NS Infusion 03/18/2017 0.6 17.4 mL/ hr 100 ml IV drip Restarted 19:45 L[employer]HOUSE WORKER mcg/kg/hr 0.2-1 mcg/kg/hr 115.9 kg (5.795-28.975 mL/hr, rounded to 5.8-29 mL/hr) 100 mL, at 5.8-29 mL/hr, Intravenous, TITRATE DIRECTED , Starting [place] 03/17/17 at 1945, Until Sat03/19/17 at 0906, [...] Dose/Rate Change 03/18/2017 0.4 11.6 mL/hr 22:32 L[employer]HOUSE WORKER mcg/kg/hr Given - New Bag 03/19/2017 0.4 11.6 mL/hr 01:34 L[employer]HOUSE WORKER mcg/kg/hr docusate (COLACE) oral solution 100 mg Given 03/12/2017 100 mg 100 mg, Feeding Tube, TWICE DAILY, First 08:40 L[employer]HOUSE WORKER dose on 03/09/17 at 2100, Until Discontinued, Hold for loose stools Given 03/12/2017 100 mg 20:09 L[employer]HOUSE WORKER Given 03/24/2017 100 mg 09:03 L[employer]HOUSE WORKER doxazosin (CARDURA) tablet 4 mg Given 03/22/2017 4 mg 4 mg, Feeding Tube, DAILY, First dose on 12:16 LIMEHOUSE WORKER 03/22/17 at 1130, Until Discontinued Given 03/23/2017 4 mg 08:02 L[employer]HOUSE WORKER doxazosin (CARDURA) tablet 4 mg Given 03/24/2017 4 mg 4 mg, Oral, DAILY, First dose on Sat 09:03 LIMEHOUSE WORKER 03/24/17 at 0900, Until Discontinued doxazosin (CARDURA) tablet 8 mg Given 03/25/2017 8 mg 8 mg, Oral, DAILY, First dose on Mon 08:21 LIMEHOUSE WORKER 03/25/17 at 0900, Until Discontinued Given 03/26/2017 8 mg 14:05 L[employer]HOUSE WORKER famotidine (PEPCID) injection 20 mg Given 03/13/2017 20 mg 20 mg, Intravenous, AT BEDTIME DAILY, 20:29 L[employer]HOUSE WORKER First dose on 03/09/17 at 2100, Until Discontinued, DILUTE W/ 10ML NS OR D5W. GIVE IV PUSH OVER 2 MIN Given 03/14/2017 20 mg 20:02 L[employer]HOUSE WORKER Given 03/15/2017 20 mg 20:25 L[employer]HOUSE WORKER fentaNYL citrate PF (SUBLIMAZE) Given 03/09/2017 50 mcg injection 17:37 LIMEHOUSE WORKER INTRA-PROCEDURE MED, Starting 03/09/17 at 1737, Until 03/11/17 at 1043 fentaNYL citrate PF (SUBLIMAZE) Given 03/21/2017 50 mcg injection 25-50 mcg 05:42 L[employer]HOUSE WORKER 25-50 mcg, Intravenous, EVERY 1 HOUR PRN, Starting 03/09/17 at 1516, Until Sat03/22/17 at 1033, Pain Injectable Given 03/21/2017 50 mcg 09:16 L[employer]HOU[employer] WORKER Given 03/21/2017 50 mcg 12:26 L[employer]HOU[employer] WORKER furosemide (LASIX) injection 40 mg Given 03/09/2017 40 mg 40 mg, Intravenous, ONCE, 1 dose, Sat 21:18 LIMEHOUSE WORKER 03/09/17 at 2100, PROTECT FROM LIGHT haloperidol (HALDOL) oral solution 2.5-5 Given 03/19/2017 5 mg mg 23:06 L[employer]HOUSE WORKER 2.5-5 mg, Oral, EVERY 6 HOURS PRN, Starting Sat03/15/17 at 1716, Until Sat03/26/17 at 1750, Agitation PO, Anxiety PO Given 03/20/2017 5 mg 22:16 L[employer]HOU[employer] WORKER Given 03/21/2017 5 mg 05:42 L[employer]HOUSE WORKER heparin (porcine) PF syringe 5,000 Units Given 03/24/2017 5,000 Units Arm, Right 5,000 Units, Subcutaneous, EVERY 8 06:04 LIMEHOUSE WORKER HOURS, 34 doses, First dose on Sat03/13/17 at 2100, Last dose on Sat03/24/17 at 2200, NOTE: This is a HIGH ALERT Medication. Given 03/24/2017 5,000 Units Abdominal 15:37 LIMEHOUSE WORKER Tissue Given 03/24/2017 5,000 Units Abdominal 21:25 LIMEHOUSE WORKER Tissue heparin (porcine) PF syringe 5,000 Units Given 03/26/2017 5,000 Units Arm, Right 5,000 Units, Subcutaneous, EVERY 8 06:24 LIMEHOUSE WORKER HOURS, First dose on Sat03/25/17 at 2200, Until Discontinued, NOTE: This is a HIGH ALERT Medication. hydrALAZINE (APRESOLINE) injection 10 mg Given 03/09/2017 10 mg 10 mg, Intravenous, EVERY 6 HOURS PRN, 21:34 LIMEHOUSE WORKER Starting 03/09/17 at 1516, Until Sat03/13/17 at 0946, Systolic Blood Pressure..., >140 mmHg or MAP >110 mmHg or DBP >90 mmHg hydrALAZINE (APRESOLINE) injection 10-20 Given 03/20/2017 20 mg mg 16:57 LIMEHOUSE WORKER 10-20 mg, Intravenous, EVERY 6 HOURS PRN, Starting Sat03/16/17 at 1631, Until Sat03/26/17 at 1750, Systolic Blood Pressure..., >200mmHg Given 03/21/2017 20 mg 06:50 L[employer]HOUSE WORKER Given 03/26/2017 20 mg 03:25 L[employer]HOUSE WORKER insulin aspart (NOVOLOG FLEXPEN) Given 03/22/2017 2 Units Arm, Left injection PEN 0-7 Units 18:00 LIMEHOUSE WORKER 0-7 Units, Subcutaneous, FIVE TIMES DAILY, First dose on 12/5/17 at 1200, Until Discontinued, -POC glucose 140-180mg/dL at , , administer 1 unit insulin, at , 03* administer 0 units. -POC glucose 181-220mg/dL at , , administer 2 units insulin, at , 03* administer 1 unit. -POC glucose 221-260mg/dL at , , administer 3 units insulin, at , 03* administer 2 units. -POC glucose 261-300mg/dL at , , administer 4 units insulin, at , * administer 3 units. -POC glucose 301-350mg/dL at , , administer 5 units insulin, at , * administer 4 units. -POC glucose 351-400mg/dL at , , administer 6 units insulin, at , * administer 5 units. -POC glucose >400mg/dL at , administer 7 units insulin, at , * administer 6 units. *only if ordered 5x's daily For POCT glucose >350mg/dL give correction bolus and recheck POCT glucose in 2 hours. If POCT glucose at 2 hours >300mg/dL call physician for further orders. For patients who are not eating meals, continue to administer the appropriate correction factor. NOTE: This is a HIGH ALERT Medication. Given 03/23/2017 1 Units Arm, Right 13:00 LIMEHOUSE WORKER Given 03/24/2017 1 Units Abdominal 12:36 LIMEHOUSE WORKER Tissue iopamidol 300 (ISOVUE-300) injection 100 Given 03/09/2017 100 mL mL 18:36 LIMEHOUSE WORKER 100 mL, Intra-arterial, ONCE, 1 dose, 03/09/17 at 1845, NOTE: This is a HIGH ALERT Medication. iopamidol 300 (ISOVUE-300) injection 50 Given 03/11/2017 50 mL mL 09:57 LIMEHOUSE WORKER 50 mL, Intra-arterial, ONCE, 1 dose, 03/11/17 at 1000, NOTE: This is a HIGH ALERT Medication. iopamidol 370 (ISOVUE-370) injection 100 Given 03/10/2017 100 mL mL 20:45 LIMEHOUSE WORKER 100 mL, Intravenous, ONCE, 1 dose, 03/10/17 at 2045, NOTE: This is a HIGH ALERT Medication. iopamidol 370 (ISOVUE-370) injection 100 Given 03/13/2017 100 mL mL 09:15 LIMEHOUSE WORKER 100 mL, Intravenous, ONCE, 1 dose, 03/13/17 at 0915, NOTE: This is a HIGH ALERT Medication. iopamidol 370 (ISOVUE-370) injection 65 Given 03/09/2017 65 mL mL 16:45 LIMEHOUSE WORKER 65 mL, Intravenous, ONCE, 1 dose, 03/09/17 at 1645, NOTE: This is a HIGH ALERT Medication. iopamidol 370 (ISOVUE-370) injection 65 Given 03/17/2017 65 mL mL 08:45 LIMEHOUSE WORKER 65 mL, Intravenous, ONCE, 1 dose, [place] 03/17/17 at 0845, NOTE: This is a HIGH ALERT Medication. labetalol (NORMODYNE) injection 10 mg Given 03/14/2017 10 mg 10 mg, Intravenous, EVERY 1 HOUR PRN, 18:33 LIMEHOUSE WORKER Starting Becky 03/14/17 at 0230, Until Sat03/15/17 at 1414, Systolic Blood Pressure..., >180, Hold for heart rate < 60 bpm Given 03/15/2017 10 mg 13:25 LIMEHOUSE WORKER labetalol (NORMODYNE) injection 10 mg Given 03/24/2017 10 mg 10 mg, Intravenous, EVERY 4 HOURS PRN, 11:30 LIMEHOUSE WORKER Starting 03/24/17 at 1107, Until Sat03/26/17 at 1750, Blood Pressure..., Systolic Blood Pressure..., for SBP > 160, Hold for heart rate < 60 bpm Given 03/25/2017 10 mg 02:05 LIMEHOUSE WORKER labetalol (NORMODYNE) injection 10-20 mg Given 03/11/2017 10 mg 10-20 mg, Intravenous, EVERY 15 MIN PRN, 02:45 LIMEHOUSE WORKER Starting 03/09/17 at 1516, Until Sat03/13/17 at 0946, Other..., For SBP > 140 mmHg or MAP > 110 mmHg OR DBP >90 mmHg, Hold for HR < 60/min and/or MAP < 110 mmHg or SBP < 140 mmHg or DBP <90 mmHg. Given 03/11/2017 10 mg 07:02 LIMEHOUSE WORKER Given 03/11/2017 10 mg 11:52 LIMEHOUSE WORKER labetalol (NORMODYNE) injection 10-20 mg Given 03/16/2017 15 mg 10-20 mg, Intravenous, EVERY 10 MIN PRN, 03:36 LIMEHOUSE WORKER Starting Sat03/15/17 at 1422, Until 03/16/17 at 1637, Systolic Blood Pressure..., >180, Hold for heart rate < 60 bpm. May double dose every 10 min up to 80mg. Never give more than 80mg at one time and never more than 300mg in one 24h period. Given 03/16/2017 20 mg 06:14 L[employer]HOUSE WORKER Given 03/16/2017 20 mg 15:50 LIMEHOUSE WORKER labetalol (NORMODYNE) injection 10-20 mg Given 03/19/2017 20 mg 10-20 mg, Intravenous, EVERY 10 MIN PRN, 20:04 LIMEHOUSE WORKER Starting 03/16/17 at 1631, Until 03/23/17 at 1914, Systolic Blood Pressure..., >200mmHg, Hold for heart rate < 60 bpm. May double dose every 10 min up to 80mg. Never give more than 80mg at one time and never more than 300mg in one 24h period. Given 03/20/2017 20 mg 11:03 L[employer]HOUSE WORKER Given 03/21/2017 20 mg 02:27 LIMEHOUSE WORKER levETIRAcetam (KEPPRA) oral solution Given 03/21/2017 1,500 mg 1,500 mg 13:06 LIMEHOUSE WORKER 1,500 mg, Feeding Tube, DAILY, First dose on 03/17/17 at 1300, Until Discontinued Given 03/22/2017 1,500 mg 08:04 L[employer]HOUSE WORKER Given 03/23/2017 1,500 mg 08:00 L[employer]HOUSE WORKER levETIRAcetam (KEPPRA) tablet 1,500 mg Given 03/24/2017 1,500 mg 1,500 mg, Oral, DAILY, First dose on Sun 09:34 LIMEHOUSE WORKER 03/24/17 at 0900, Until Discontinued Given 03/25/2017 1,500 mg 08:21 L[employer]HOUSE WORKER Given 03/26/2017 1,500 mg 14:05 LIMEHOUSE WORKER levETIRAcetam in NaCl (iso-os) (KEPPRA) Given - New 03/12/2017 1,000 mg IVPB (premade) 1,000 mg 100 mL Bag 16:22 LIMEHOUSE WORKER 1,000 mg, 100 mL, Administer over 15 Minutes, Intravenous, DAILY, First dose on 03/12/17 at 1200, Until Discontinued, renal dosing - give after dialysis on dialysis days levETIRAcetam in NaCl (iso-os) (KEPPRA) Given - New 03/13/2017 1,000 mg IVPB (premade) 1,000 mg 100 mL Bag 21:32 LIMEHOUSE WORKER 1,000 mg, 100 mL, Administer over 15 Minutes, Intravenous, ONCE, 1 dose, 03/13/17 at 2030 levETIRAcetam in NaCl (iso-os) (KEPPRA) Given - New 03/14/2017 1,500 mg IVPB (premade) 1,500 mg 100 mL Bag 14:22 LIMEHOUSE WORKER 1,500 mg, 100 mL, Administer over 15 Minutes, Intravenous, DAILY, First dose on Becky 03/14/17 at 1230, Until Discontinued, renal dosing - give after dialysis on dialysis days (continue giving on non-HD days) Given - New Bag 03/15/2017 1,500 mg 12:01 LIMEHOUSE WORKER Given - New Bag 03/16/2017 1,500 mg 12:42 LIMEHOUSE WORKER levETIRAcetam in NaCl (iso-os) (KEPPRA) Given - New 03/09/2017 500 mg IVPB (premade) 500 mg 100 mL Bag 21:18 LIMEHOUSE WORKER 500 mg, 100 mL, Administer over 15 Minutes, Intravenous, TWICE DAILY, First dose on 03/09/17 at 2100, Until Discontinued Given - New Bag 03/11/2017 500 mg 08:10 LIMEHOUSE WORKER levETIRAcetam in NaCl (iso-os) (KEPPRA) Given - New 03/11/2017 500 mg IVPB (premade) 500 mg 100 mL Bag 14:06 LIMEHOUSE WORKER 500 mg, 100 mL, Administer over 15 Minutes, Intravenous, ONCE, 1 dose, 03/11/17 at 1300, After HD losartan (COZAAR) suspension 50 mg Given 03/22/2017 50 mg 50 mg, Feeding Tube, DAILY, First dose 12:16 LIMEHOUSE WORKER on Sat03/22/17 at 1130, Until Discontinued Given 03/23/2017 50 mg 08:00 L[employer]HOUSE WORKER losartan (COZAAR) tablet 50 mg Given 03/24/2017 50 mg 50 mg, Oral, DAILY, First dose on Sun 09:03 LIMEHOUSE WORKER 03/24/17 at 0900, Until Discontinued Given 03/25/2017 50 mg 08:21 L[employer]HOUSE WORKER Given 03/26/2017 50 mg 14:08 L[employer]HOUSE WORKER melatonin tablet 3 mg Given 03/23/2017 3 mg 3 mg, Oral, AT BEDTIME DAILY, First dose 21:16 LIMEHOUSE WORKER on Sat03/21/17 at 2100, Until Discontinued Given 03/24/2017 3 mg 21:26 L[employer]HOUSE WORKER Given 03/25/2017 3 mg 20:52 L[employer]HOU[employer] WORKER methylcellulose (GONIOSOL) 2.5 % Given 03/16/2017 1 drop ophthalmic solution 1 drop 13:51 L[employer]HOUSE WORKER 1 drop, Both Eyes, NEEDED, Starting Sat03/15/17 at 1708, Until Sat03/26/17 at 1750, Dry Eyes, Irritated Eyes Given 03/20/2017 1 drop 10:31 L[employer]HOU[employer] WORKER Given 03/20/2017 1 drop 16:23 L[employer]HOUSE WORKER metoprolol tartrate (LOPRESSOR) tablet Given 03/11/2017 100 mg 100 mg 20:09 L[employer]HOUSE WORKER 100 mg, Per NG tube, TWICE DAILY, First dose on 03/11/17 at 1200, Until Discontinued, Hold for heart rate < 60 bpm, SBP<120 Given 03/12/2017 100 mg 09:45 L[employer]HOU[employer] WORKER Given 03/12/2017 100 mg 20:09 L[employer]HOUSE WORKER metoprolol tartrate (LOPRESSOR) tablet Given 03/21/2017 50 mg 50 mg 13:07 L[employer]HOUSE WORKER 50 mg, Oral, TWICE DAILY, First dose on Sat03/19/17 at 1030, Until Discontinued, Hold for heart rate < 60 bpm Given 03/21/2017 50 mg 20:07 L[employer]HOUSE WORKER Given 03/22/2017 50 mg 08:04 L[employer]HOUSE WORKER metoprolol tartrate (LOPRESSOR) tablet Given 03/25/2017 50 mg 50 mg 08:21 LIMEHOUSE WORKER 50 mg, Oral, TWICE DAILY, First dose on Sat03/24/17 at 0900, Until Discontinued, Hold for heart rate < 50 bpm or systolic BP < 100 Given 03/25/2017 50 mg 20:52 LIMEHOUSE WORKER Given 03/26/2017 50 mg 14:05 LIMEHOUSE WORKER metoprolol(#) (LOPRESSOR) solution 50 mg Given 03/22/2017 50 mg 50 mg, Feeding Tube, TWICE DAILY, First 20:41 LIMEHOUSE WORKER dose on Sat03/22/17 at 2100, Until Discontinued, Hold for heart rate < 60 bpm Given 03/23/2017 50 mg 08:01 LIMEHOUSE WORKER Given 03/23/2017 50 mg 21:18 LIMEHOUSE WORKER milk of magnesia (CONC) oral suspension Given 03/24/2017 10 mL 10 mL 09:03 LIMEHOUSE WORKER 10 mL, Feeding Tube, DAILY, First dose on 03/09/17 at 1530, Until Discontinued, May hold if BM within 24 hours of dose. 10 mL CONC=30 mL MOM minoxidil (LONITEN) tablet 10 mg Given 03/11/2017 10 mg 10 mg, Per NG tube, TWICE DAILY, First 20:08 LIMEHOUSE WORKER dose on 03/11/17 at 1200, Until Discontinued Given 03/12/2017 10 mg 09:45 LIMEHOUSE WORKER Given 03/12/2017 10 mg 20:09 LIMEHOUSE WORKER niCARdipine (cardENE) 20 mg/NS 200 mL Dose/Rate 03/11/2017 15 mg/hr 150 mL/hr infusion (std conc)(premade) Change 01:52 LIMEHOUSE WORKER 200 mL, 5-15 mg/hr (50-150 mL/hr), at 50-150 mL/hr, Intravenous, TITRATE DIRECTED , Starting 03/09/17 at 1545, Until Sat03/12/17 at 0930, Initiate at 5 mg/hr Titrate to keep: SYS<140 Call MD if patient's dose is 5 mg/hr and able to tolerate oral medications. Std Conc=0.1 mg/ml Given - New Bag 03/11/2017 5 mg/hr 50 mL/hr 06:50 LIMEHOUSE WORKER Infusion Restarted 03/11/2017 5 mg/hr 50 mL/hr 10:26 LIMEHOUSE WORKER niMODipine (NIMOTOP) capsule 60 mg Given 03/10/2017 60 mg 60 mg, Oral, EVERY 4 HOURS, 126 doses, 04:56 LIMEHOUSE WORKER First dose on 03/09/17 at 2200, Last dose on 03/30/17 at 1600, Give sublingually Given 03/11/2017 60 mg 03:24 LIMEHOUSE WORKER Given 03/11/2017 60 mg 08:00 LIMEHOUSE WORKER niMODipine (NIMOTOP) capsule 60 mg Given 03/25/2017 60 mg 60 mg, Oral, EVERY 4 HOURS, First dose 19:41 LIMEHOUSE WORKER on 03/24/17 at 0815, Until Discontinued Given 03/25/2017 60 mg 23:31 LIMEHOUSE WORKER Given 03/26/2017 60 mg 03:16 LIMEHOUSE WORKER niMODipine (NYMALIZE) 3 mg/ mL solution Given 03/22/2017 30 mg 30 mg 13:41 LIMEHOUSE WORKER 30 mg, Per OG Tube, EVERY 2 HOURS, 211 doses, First dose on Sat03/13/17 at 1000, Last dose on 03/30/17 at 2200 Given 03/22/2017 30 mg 16:05 LIMEHOUSE WORKER Given 03/22/2017 30 mg 18:15 LIMEHOUSE WORKER niMODipine (NYMALIZE) 3 mg/ mL solution Given 03/12/2017 60 mg 60 mg 16:14 LIMEHOUSE WORKER 60 mg, Per OG Tube, EVERY 4 HOURS, 127 doses, First dose on Sat03/11/17 at 0900, Last dose on Sat04/01/17 at 0800 Given 03/12/2017 60 mg 20:09 LIMEHOUSE WORKER Given 03/13/2017 60 mg 00:26 LIMEHOUSE WORKER niMODipine (NYMALIZE) 3 mg/ mL solution Given 03/23/2017 60 mg 60 mg 20:33 LIMEHOUSE WORKER 60 mg, Per OG Tube, EVERY 4 HOURS, First dose on Sat03/22/17 at 2030, Until Discontinued Given 03/24/2017 60 mg 00:00 LIMEHOUSE WORKER Given 03/24/2017 60 mg 03:48 LIMEHOUSE WORKER nystatin (MYCOSTATIN) oral suspension Given 03/21/2017 500,000 500,000 Units 16:10 LIMEHOUSE WORKER Units 500,000 Units, Swish & Swallow, FOUR TIMES DAILY, First dose on Sat03/13/17 at 1300, Until Discontinued, Swab mouth Given 03/21/2017 500,000 21:09 LIMEHOUSE WORKER Units Given 03/22/2017 500,000 08:04 LIMEHOUSE WORKER Units nystatin (MYCOSTATIN) oral suspension Given 03/25/2017 500,000 500,000 Units 08:21 LIMEHOUSE WORKER Units 500,000 Units, Swish & Swallow, FOUR TIMES DAILY, First dose on Sat03/22/17 at 1300, Until Discontinued, Swab mouth Given 03/25/2017 500,000 13:38 LIMEHOUSE WORKER Units Given 03/25/2017 500,000 20:52 LIMEHOUSE WORKER Units oxyCODONE (ROXICODONE) oral solution Given 03/22/2017 10 mg 5-15 mg 18:15 LIMEHOUSE WORKER 5-15 mg, Feeding Tube, EVERY 4 HOURS PRN, Starting Sat03/22/17 at 1032, Until Sat03/24/17 at 0711, Headache, Pain PO Given 03/22/2017 10 mg 23:54 LIMEHOUSE WORKER Given 03/23/2017 5 mg 06:44 LIMEHOUSE WORKER oxyCODONE (ROXICODONE, OXY-IR) tablet 5 Given 03/26/2017 5 mg mg 10:55 LIMEHOUSE WORKER 5 mg, Oral, EVERY 4 HOURS PRN, Starting Sat03/24/17 at 0711, Until Sat03/26/17 at 1750, Pain PO OXYCODONE 5 MG PO TAB (Cabinet Override) NOW, 1 dose, Sat03/26/17 at 1100, Created by cabinet override phenylephrine (ARLINE-SYNEPHRINE) 10 mg in Given - New 03/13/2017 0.8 130.6 mL/hr sodium chloride 0.9% (NS) 250 mL IV drip Bag 16:21 LIMEHOUSE WORKER mcg/kg/min (std conc) 0.5-3 mcg/kg/min 108.8 kg (81.6-489.6 mL/hr) 250 mL, at 81.6-489.6 mL/hr, Intravenous, TITRATE DIRECTED , Starting Sat03/13/17 at 0800, Until Sat03/15/17 at 0913, Initiate at 0.5 mcg/kg/min Titrate to keep: SBP > 130-180 mmHg Std Conc=40 mcg/ml NOTE: For weight-based dosing, use patient dosing weight. 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 mcg/kg/min Dose/Rate Change 03/13/2017 0.2 32.6 mL/hr 19:42 LIMEHOUSE WORKER mcg/kg/min propofol (DIPRIVAN) 10 mg/mL IV infusion Dose/Rate 03/11/2017 40 27.6 mL/hr 5-60 mcg/kg/min Change 10:26 LIMEHOUSE WORKER mcg/kg/min 115.1 kg (3.453-41.436 mL/hr, rounded to 3.5-41.4 mL/hr) 100 mL, at 3.5-41.4 mL/hr, Intravenous, TITRATE DIRECTED , Starting 03/09/17 at 1545, Until Sat03/12/17 at 0930, -Initiate [...] New Bag 03/11/2017 40 27.6 mL/hr 11:01 LIMEHOUSE WORKER mcg/kg/min Dose/Rate Change 03/11/2017 25 17.3 mL/hr 12:07 LIMEHOUSE WORKER mcg/kg/min QUEtiapine (SEROQUEL) tablet 100 mg Given 03/15/2017 100 mg 100 mg, Oral, TWICE DAILY, 3 doses, 20:26 LIMEHOUSE WORKER First dose on Sat03/15/17 at 2100, Last dose on 03/16/17 at 2100 Given 03/16/2017 100 mg 08:01 LIMEHOUSE WORKER Given 03/16/2017 100 mg 22:21 LIMEHOUSE WORKER QUEtiapine (SEROQUEL) tablet 50 mg Given 03/25/2017 50 mg 50 mg, Oral, TWICE DAILY, First dose on 08:21 LIMEHOUSE WORKER 03/17/17 at 0900, Until Discontinued Given 03/25/2017 50 mg 20:51 LIMEHOUSE WORKER Given 03/26/2017 50 mg 14:05 LIMEHOUSE WORKER senna/docusate (SENOKOT-S) solution 10 Given 03/11/2017 10 mL mL 20:08 LIMEHOUSE WORKER 10 mL, Feeding Tube, TWICE DAILY, First dose on 03/09/17 at 2100, Until Discontinued, Hold for loose stools. If patient unable to take tablet, give 10 mL of senna/docusate (SENOKOT-S) solution. Send [facility] message to pharmacy. Given 03/12/2017 10 mL 20:09 LIMEHOUSE WORKER senna/docusate (SENOKOT-S) solution 10 Given 03/24/2017 10 mL mL 09:03 LIMEHOUSE WORKER 10 mL, Oral, TWICE DAILY, First dose on 03/24/17 at 0900, Until Discontinued, Hold for loose stools. If patient unable to take tablet, give 10 mL of senna/docusate (SENOKOT-S) solution. Send [facility] message to pharmacy. sodium chloride 0.9 % infusion Given - New 03/11/2017 300 mL 150 mL/ hr 1,000 mL, 300 mL, Intravenous, at 150 Bag 10:19 LIMEHOUSE WORKER mL/hr, PRN IN IP DIALYSIS, 2 doses, Starting 03/11/17 at 0743, Until Sat03/12/17 at 0919, Other..., Prime Rinse, For Prime/Rinseback sodium chloride 0.9 % infusion Given - 03/13/2017 250 mL 250 mL/ hr 250 mL, 250 mL, Intravenous, at 250 Bag 07:29 LIMEHOUSE WORKER mL/hr, BOLUS, 1 dose, Sat03/13/17 at 0700 sodium chloride 0.9 % infusion Given - 03/13/2017 250 mL 250 mL/ hr 250 mL, 250 mL, Intravenous, at 250 Bag 07:00 LIMEHOUSE WORKER mL/hr, BOLUS, 1 dose, Sat03/13/17 at 0715, In addition to 250ml already given for a total of 500ml this morning sodium chloride 0.9 % infusion Given - 03/14/2017 300 mL 1,000 mL, 300 mL, Intravenous, PRN IN IP Bag 07:29 LIMEHOUSE WORKER DIALYSIS, 2 doses, Starting 03/13/17 at 1741, Until 03/17/17 at 1803, Other..., Prime Rinse, For Prime/Rinseback sodium chloride 0.9 % infusion Given - 03/16/2017 300 mL 1,000 mL, 300 mL, Intravenous, PRN IN IP Bag 14:15 LIMEHOUSE WORKER DIALYSIS, 2 doses, Starting 03/16/17 at 0520, Until [place] 03/17/17 at 1803, Other..., Prime Rinse, For Prime/Rinseback sodium chloride 0.9 % infusion Given - 03/18/2017 300 mL 1,000 mL, 300 mL, Intravenous, PRN IN IP Bag 14:11 LIMEHOUSE WORKER DIALYSIS, 2 doses, Starting [place] 03/17/17 at 1756, Until Tu03/19/17 at 0316, Other..., Prime Rinse, For Prime/Rinseback sodium chloride 0.9 % infusion Given - 03/19/2017 300 mL 1,000 mL, 300 mL, Intravenous, PRN IN IP Bag 11:15 LIMEHOUSE WORKER DIALYSIS, 2 doses, Starting 03/19/17 at 0309, Until 03/19/17 at 1200, Other..., Prime Rinse, For Prime/Rinseback sodium chloride 0.9 % infusion Given - 03/21/2017 300 mL 1,000 mL, 300 mL, Intravenous, PRN IN IP Bag 08:30 LIMEHOUSE WORKER DIALYSIS, 2 doses, Starting [place] 03/21/17 at 0514, Until 03/23/17 at 0333, Other..., Prime Rinse, For Prime/Rinseback sodium chloride 0.9 % infusion Given - 03/26/2017 300 mL 1,000 mL, 300 mL, Intravenous, PRN IN IP Bag 08:35 LIMEHOUSE WORKER DIALYSIS, 2 doses, Starting Sat03/26/17 at 0522, Until Sat03/26/17 at 1311, Other..., Prime Rinse, For Prime/Rinseback SODIUM CHLORIDE 0.9 % IV SOLP (Cabinet Given - New 03/13/2017 1,000 mL Override) Bag 07:29 LIMEHOUSE WORKER NOW, 1 dose, Sat03/13/17 at 0700, Created by cabinet override sodium chloride 23.4 % 30mL IVPB Given - New 03/10/2017 90 mL/hr 30 mL, Intravenous, Administer over 20 Bag 20:07 LIMEHOUSE WORKER Minutes, ONCE, 1 dose, 03/10/17 at 2000, NOTE: HYPERTONIC SALINE 23.4% (4mEq/mL) CENTRAL LINE ONLY Ordering provider must be present on unit during 23.4% HTS infusion administration Use Restricted to Critical Care Areas ONLY Delivers: Sodium 4004 mEq/L, osmolarity 8008 mOsm/L. NOTE: This is a HIGH ALERT Medication. sodium chloride PF 0.9% injection 50 mL Given 03/09/2017 50 mL 50 mL, Intravenous, ONCE, 1 dose, Sat 16:45 LIMEHOUSE WORKER 03/09/17 at 1645, Intra-procedure (IR) sodium chloride PF 0.9% injection 50 mL Given 03/10/2017 50 mL 50 mL, Intravenous, ONCE, 1 dose, Sun 20:45 LIMEHOUSE WORKER 03/10/17 at 2045, DO NOT SEND this medication unless it is requested. This med is usually available in floor stock. sodium chloride PF 0.9% injection 50 mL Given 03/13/2017 50 mL 50 mL, Intravenous, ONCE, 1 dose, Sat 09:15 LIMEHOUSE WORKER 03/13/17 at 0915, Intra-procedure (IR) sodium chloride PF 0.9% injection 50 mL Given 03/17/2017 50 mL 50 mL, Intravenous, ONCE, 1 dose, Sun 08:45 LIMEHOUSE WORKER 03/17/17 at 0845, Intra-procedure (IR)
--- OUTSIDE RECORDS SUMMARY | 2017-05-07 16:29 | XMS REPORT | Encounter Summary ---
Author Author [facility] Organization [facility] Address Unknown Phone Unavailable Care Team Providers Care Electric Motorman Name Role Phone No Pcp, Na PCP Unavailable Encounter Details Date Type Department Care Team Description 03/16/2017 Procedure Pass [id number] [place] [address] Social History Tobacco Use Types Packs/Day Years [...] DO Event [address] [place] [address] [phone] 05/17/2017 Surgery Edgar Bee MD CRANIOPLASTY FOR RIGHT [address] [place] [address] [place] [address] FROM RIGHT ABDOMEN [phone] 05/17/2017 Procedure Pass 05/17/2017 Hospital Edgar Bee MD Brain aneurysm Encounter [address] [place] [address] [phone] as of this encounter Visit Diagnoses Not on filein this encounter
--- OUTSIDE RECORDS SUMMARY | 2017-05-07 16:29 | XMS REPORT | Encounter Summary ---
Author Author [facility] Organization [facility] Address Unknown Phone Unavailable Care Team Providers Care Hotel Security Officer Name Role Phone No Pcp, Na PCP Unavailable Encounter Details Date Type Department Care Team Description 03/22/2017 Procedure Pass [id number] [address] [place] [address] Social History Tobacco Use Types Packs/Day Years [...] DO Event [address] [place] [address] [phone] 05/17/2017 Surgery Edgar Bee MD CRANIOPLASTY FOR RIGHT [address] [place] [address] [place] [address] FROM RIGHT ABDOMEN [phone] 05/17/2017 Procedure Pass 05/17/2017 Hospital Edgar Bee MD Brain aneurysm Encounter [address] [place] [address] [phone] as of this encounter Visit Diagnoses Not on filein this encounter
--- OUTSIDE RECORDS SUMMARY | 2017-05-07 16:29 | XMS REPORT | Encounter Summary ---
Author Author [facility] Organization [facility] Address Unknown Phone Unavailable Care Team Providers Care Keno Writer / Runner Name Role Phone No Pcp, Na PCP Unavailable Encounter Details Date Type Department Care Team Description 03/13/2017 Procedure Pass [id number] [address] [place] [address] Social History Tobacco Use Types Packs/Day Years Used Date Current Every Day Smoker 1 Sex Assigned at Date Recorded Not on file as of this encounter Plan of Treatment Date Type Specialty Care Team Description 05/03/2017 Anesthesia Hannah Acevedo, DO Event [address] [place] [address] [phone] 05/17/2017 Surgery Edgar Bee MD CRANIOPLASTY FOR RIGHT [address] [place] [address] [place] [address] FROM RIGHT ABDOMEN [phone] 05/17/2017 Procedure Pass 05/17/2017 Hospital Edgar Bee MD Brain aneurysm Encounter [address] [place] [address] [phone] as of this encounter Visit Diagnoses Not on filein this encounter
--- OUTSIDE RECORDS SUMMARY | 2017-05-07 16:30 | XMS REPORT | Encounter Summary ---
Author Author [facility] Organization [facility] Address Unknown Phone Unavailable Care Team Providers Care Car Repairer Apprentice Name Role Phone No Pcp, Na PCP Unavailable Reason for Visit * Auth/Cert Status Reason Specialty Diagnoses / Referred By Referred To Procedures Contact Contact Diagnoses 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HCC) Brain aneurysm subarachnoid hemorrhage Subarachnoid bleed (HCC) Encounter Details Date Type Department Care Team Description 03/10/2017 Anesthesia CA Operating Room Afia Person CRNA [address] [facility] [address] [place] [address] [place], [place] [id number] Anesthesia Record Procedure Name Responsible Anesthesia Start Time Anesthesia Stop Time Anesthesiologist REPAIR ANEURYSM Binh Orosco MD 03/10/17203803/10/17 2351 CRANIOTOMY (N/A ) Date Time Event Comment 2024 AN Equip Check 2016 2038 Anes Start 2043 An Start Data 2043 Anesthesia Ready 2043 An Induction The patient was reevaluated immediately before moderate or deep sedation use and before anesthesia induction. [address] depression in II and elevation in V. Surgeons notified. Preparing to send labs incl troponin. 2102 Stat Labs Drawn 2104 Proc Start 2118 Quick Note Staff surgeon informed of ST changes (dep in II and elevation in V) upon arrival in OR. Request SBP to be 140mmHg 2137 Quick Note Femoral a-line accessed by dr bee for angiogram 2214 Quick Note Disc p/o BP goals for pt with staff surgeon given recent aneurysm repair and EKG changes noted at start of case. Surgeon request normotension. 2219 Quick Note Patient's initial in-room labs (~2044) were never received by laboratory. RN speaking with lab. 8 an stop data 235 Handoff to RN I completed my SBAR handoff to the receiving nurse. 2351 Handoff to RN I completed my SBAR handoff to the receiving nurse. 235 An Stop Meds Name Total fentaNYL PF (SUBLIMAZE) injection 75 mcg propofol (DIPRIVAN) 200 mg/ 20 mL 80 mg injection (VIAL) rocuronium (ZEMURON) injection 50 mg niCARdipine (cardENE) 20 mg/NS 200 mL 9 mg infusion (std conc)(premade) propofol (DIPRIVAN) infusion 1,000 mg 1,087.7 mg albuterol (VENTOLIN HFA, PROAIR HFA) 2 puff inhaler phenylephrine (ARLINE-SYNEPHRINE) 10 mg in 8.25 mg sodium chloride 0.9% (NS) 250 mL IV drip (std conc) ceFAZolin (ANCEF) injection 2 g neostigmine (PROSTIGMINE) 1 mg/mL 5 mg injection (VIAL) glycopyrrolate (ROBINUL) 0.2mg/mL 0.8 mg injection electrolyte-R (NORMOSOL-R PH7.4) 100 mL infusion electrolyte-R (NORMOSOL-R PH7.4) 200 mL infusion * Name O2 N2O Inspired Isoflurane * No blood administrations on file. Type Details Placement Removal AV 03/09/17; 1530; L; Arm, Lower 03/09/17 1530 by Leslye Shunt/Jasmeet Park (Bertha)TENZIN magalis Wounds 03/10/17; 1822; Right; Head; Surgical 03/10/17 1822 by Lou (NOT for Incision; sutures, xeroform, telfa, TENZIN Sanchez Pressure andria Injuries) Wounds 03/10/17; 2309; Abdomen; Surgical 03/10/17 2309 by Lou (NOT for Incision; sutures, telfa, tegaderm TENZIN Sanchez Pressure Injuries) Indwelling 03/09/17; Present on Admission; 03/09/17 0000 by Dima 03/13 2300 by Anupama Tai 03/13/17; 2300 TENZIN Hawkins RN Catheter NG/OG Tube 03/09/17 (placed at OSH); Left Nare; 03/09/17 0000 by Dima 03/12/17 1020 by Sita 03/12/17; 1020 TENZIN Hawkins, RN Endotrache 03/09/17; 1236; Pre-hospital ET Tube; 03/09/17 1236 by Matheus C 03/15/17 0941 by Calista al Tube Oral; 8mm; Single-Lumen; Auscultation, Alquist, RT Leiker, RT Chest X-Ray; 03/15/17; 0941 Arterial 03/09/17; 1545; R; Radial; 1; 03/15/17; 03/09/17 1545 by Leslye 03/15/17 1230 by Mary Davison 1230 Vivian Barboza), TENZIN Amezquita, TENZIN Arterial 03/09/17; 1655; R; Femoral; 4 FR; 03/09/17 1655 by Dayan 08/22 1045 by Sita Sheath Sutured, Sterile occlusive dressing, TENZIN Rollins, RN Chlorhexadine (CHG) impregnated sponge; Correct Patient, Correct Procedure, Correct Patient Position, Marking Waived, Not Side Specific, Correct Equipment / Implants Available; 03/12/17; 1045 Venous 03/09/17; 1750; IR; Correct Patient, 03/09/17 1750 by Dayan 08/22 1045 by Sita Sheath Correct Procedure, Correct Patient TENZIN Rollins, RN Position, Marking Waived, Not Side Specific, Correct Equipment / Implants Available; Hand Hygiene, Cap , Mask, Eye Protection, Sterile Gown, Sterile Gloves; Chlorhexadine (CHG); Femoral, Left; 4 FR; Sutured, Sterile occlusive dressing, Chlorhexadine (CHG) impregnated sponge; Emergent-Blood Return, X-ray; 03/12/17; 1045 Peripheral 03/09/17; 1800; RN; R; Upper; Upper Arm; 03/09/17 1800 by Dayan 03/19/17 1300 by IV 18 G; No; 1; 03/19/17; 1300 TENZIN Rollins RN Peripheral 03/10/17; 0839; IV Therapy; R; Inner; 03/10/17 0839 by Sandra 03/24/17 0803 by Yesenia MEI Forearm; 16 G; 2; Dislodgement; MARIETTA Gann RN 03/24/17; 0803 Peripheral 03/10/17; 0841; R; Posterior; Forearm; 03/10/17 0841 by Sandra 03/11/17 0546 by Brittaney MEI 16 G; 03/11/17; 0546 MARIETTA Gann RN Jackson 03/10/17; 1751; Head; 10 FR; 03/13/17; 03/10/17 1751 by Lou 03/13/17 0000 by Brittaney Cedeño 0000 TENZIN Sanchez, TENZIN Drain Wounds 03/10/17; 2343; Head; Surgical Incision; 03/10/17 2343 by Lou 03/12/17 0832 by Sita (NOT for 03/12/17 (same head incision, already TENZIN Sanchez , TENZIN Pressure charted on); 0832; sutures, xeroform, Injuries) baci ointment, telfa, andria in this encounter Social History Tobacco Use Types Packs/Day Years Used Date Never Assessed Sex Assigned at Date Recorded Not on file as of this encounter OR Notes * Anesthesia Postprocedure Evaluation - Afia Person CRNA - 03/10/2017 10: 59 PM WARE CARRIER Post-Anesthesia Evaluation Name: Naren Mayfield : 1965 [...] PO2ART 118 (H) 03/09/2017 HCO3A 27.4 03/09/2017 Q5PEWRTIC 98.6 03/09/2017 BASEEXA 3.3 03/09/2017 Transport: Patient [...] Binh Orosco MD - 03/12/2017 7:52 AM WARE CARRIER Post-Anesthesia Evaluation Attestation: I reviewed and agree the indicated post- anesthesia care was provided. * Anesthesia Preprocedure Evaluation - Binh Orosco MD - 03/10/2017 9:59 PM WARE CARRIER Formatting of this note may be different [...] 160-170.) Informed Consent Plan discussed with: anesthesiologist, SITE SAFETY MANAGER and resident. in this encounter Miscellaneous Notes * Addendum Note - Afia Person CRNA - 03/11/2017 3:40 PM WARE CARRIER Formatting of this note may be different from the original. Addendum created 03/11/17 1540 by Afia Person CRNA Sign clinical note in this encounter Plan of Treatment Date Type Specialty Care Team Description 05/03/2017 Anesthesia Hannah Acevedo DO Event [address] [place] [address] [phone] 05/17/2017 Surgery Edgar Bee MD CRANIOPLASTY FOR RIGHT [address] [place] [address] [place] [address] FROM RIGHT ABDOMEN [phone] 05/17/2017 Procedure Pass 05/17/2017 Hospital Edgar Bee MD Brain aneurysm Encounter [address] [place] [address] as of this encounter Visit Diagnoses Not on filein this encounter Administered Medications Medication Order MAR Action Action Date Dose Rate Site albuterol (PROAIR HFA, VENTOLIN HFA, or Given 03/10/2017 2 puffs PROVENTIL HFA) inhaler 21:12 WARE CARRIER INTRA-PROCEDURE MED, Starting 03/10/17 at 2, Until Discontinued, RT PROTOCOL, Anesthesia Intra-op ceFAZolin (ANCEF) injection Given 03/10/2017 2 g INTRA-PROCEDURE MED, Starting Sun 21:38 WARE CARRIER 03/10/17 at 2138, Until Discontinued, Anesthesia Intra-op electrolyte-R (PH 7.4) (NORMOSOL-R Given - New 03/10/2017 PH7.4) injection Bag 20:44 WARE CARRIER INTRA-PROCEDURE MED(CONT), Starting 03/10/17 at 2044, Until Discontinued, Anesthesia Intra-op electrolyte-R (PH 7.4) (NORMOSOL-R Given - New 03/10/2017 PH7.4) injection Bag 20:57 WARE CARRIER INTRA-PROCEDURE MED(CONT), Starting 03/10/17 at 2057, Until Discontinued, Anesthesia Intra-op fentaNYL citrate PF (SUBLIMAZE) Given 03/10/2017 25 mcg injection 20:56 WARE CARRIER INTRA-PROCEDURE MED, Starting 03/10/17 at 2056, Until Discontinued, Pain Injectable, Anesthesia Intra-op Given 03/10/2017 25 mcg 22:11 WARE CARRIER Given 03/10/2017 25 mcg 22:52 WARE CARRIER glycopyrrolate (ROBINUL) injection Given 03/10/2017 0.8 mg INTRA-PROCEDURE MED, Starting Sun 23:21 WARE CARRIER 03/10/17 at 2321, Until 03/10/17 at 2351, Secretions, Anesthesia Intra-op neostigmine (PROSTIGMINE) injection Given 03/10/2017 5 mg INTRA-PROCEDURE MED, Starting Sun 23:21 WARE CARRIER 03/10/17 at 2321, Until 03/10/17 at 2351, Anesthesia Intra-op niCARdipine (cardENE) 20 mg/NS 200 mL Dose/Rate 03/11/2017 15 mg/hr 150 mL/hr infusion (std conc)(premade) Change 01:52 WARE CARRIER 200 mL, 5-15 mg/hr (50-150 mL/hr), at 50-150 mL/hr, Intravenous, TITRATE DIRECTED , Starting 03/09/17 at 1545, Until 03/12/17 at 0930, Initiate at 5 mg/hr Titrate to keep: SYS<140 Call MD if patient's dose is 5 mg/hr and able to tolerate oral medications. Std Conc=0.1 mg/ml Given - New Bag 03/11/2017 5 mg/hr 50 mL/hr 06:50 WARE CARRIER Infusion Restarted 03/11/2017 5 mg/hr 50 mL/hr 10:26 WARE CARRIER phenylephrine (ARLINE-SYNEPHRINE) 10 mg in Infusion 03/10/2017 0.4 69.1 mL /hr sodium chloride 0.9% (NS) 250 mL IV drip Restarted 22:34 WARE CARRIER mcg/kg/min (std conc) 10 mg 250 mL, INTRA-PROCEDURE MED(CONT), Starting 03/10/17 at 2120, Until Discontinued, Anesthesia Intra-op Dose/Rate Change 03/10/2017 0.3 51.8 mL/hr 22:51 WARE CARRIER mcg/kg/min Infusion Restarted 03/10/2017 0.3 51.8 mL/hr 23:04 WARE CARRIER mcg/kg/min propofol (DIPRIVAN) infusion 1,000 mg Dose/Rate 03/10/2017 75 51.8 mL/ hr 1,000 mg Change 22:12 WARE CARRIER mcg/kg/min 100 mL, INTRA-PROCEDURE MED(CONT), Starting 03/10/17 at 2045, Until Discontinued, Anesthesia Intra-op Dose/Rate Change 03/10/2017 50 34.5 mL/hr 22:20 WARE CARRIER mcg/kg/min Given - New Bag 03/10/2017 23:10 WARE CARRIER propofol (DIPRIVAN) injection Given 03/10/2017 80 mg INTRA-PROCEDURE MED, Starting Sun 20:44 WARE CARRIER 03/10/17 at 2043, Until Discontinued, Anesthesia Intra-op rocuronium (ZEMURON) injection Given 03/10/2017 50 mg Intravenous, INTRA-PROCEDURE MED, 20:48 WARE CARRIER Starting 03/10/17 at 2047, Until Discontinued, Anesthesia Intra-op in this encounter
--- OUTSIDE RECORDS SUMMARY | 2017-05-07 16:30 | XMS REPORT | Encounter Summary ---
Author Author [facility] Organization [facility] Address Unknown Phone Unavailable Care Team Providers Care Cork Mixer Name Role Phone No Pcp, Na PCP Unavailable Encounter Details Date Type Department Care Team Description 03/10/2017 Procedure Pass [facility] Operating Room [address] [place] [address] Social History Tobacco Use Types Packs/Day Years Used Date Never Assessed Sex Assigned at Date Recorded Not on file as of this encounter Plan of Treatment Date Type Specialty Care Team Description 05/03/2017 Anesthesia Hannah Acevedo, DO Event [address] [place] [address] [phone] 05/17/2017 Surgery Edgar Bee MD CRANIOPLASTY FOR RIGHT [address] [place], [place] [address] [place] [address] FROM RIGHT ABDOMEN [phone] 05/17/2017 Procedure Pass 05/17/2017 Hospital Edgar Bee MD Brain aneurysm Encounter [address] [place] [address] [phone] as of this encounter Visit Diagnoses Not on filein this encounter
--- OUTSIDE RECORDS SUMMARY | 2017-05-07 16:30 | XMS REPORT | Encounter Summary ---
Author Author [facility] Organization [facility] Address Unknown Phone Unavailable Care Team Providers Care Music Instructor Name Role Phone No Pcp, Na PCP Unavailable Encounter Details Date Type Department Care Team Description 03/11/2017 Procedure Pass [facility] [place] [address] Social History Tobacco Use Types Packs/Day Years Used Date Current Every Day Smoker 1 Sex Assigned at Date Recorded Not on file as of this encounter Plan of Treatment Date Type Specialty Care Team Description 05/03/2017 Anesthesia Hannah Acevedo, DO Event [address] [place] [address] [phone] 05/17/2017 Surgery Edgar Bee MD CRANIOPLASTY FOR RIGHT [address] [place], [place] [address] [place] [address] FROM RIGHT ABDOMEN [phone] 05/17/2017 Procedure Pass 05/17/2017 Hospital Edgar Bee MD Brain aneurysm Encounter [address] [place] [address] [phone] as of this encounter Visit Diagnoses Not on filein this encounter
--- OUTSIDE RECORDS SUMMARY | 2017-05-07 16:34 | XMS REPORT | Encounter Summary ---
Author Author [facility] Organization [facility] Address Unknown Phone Unavailable Care Team Providers Care Shaker Operator Name Role Phone No Pcp, Na PCP Unavailable Reason for Visit * Auth/Cert Status Reason Specialty Diagnoses / Referred By Referred To Procedures Contact Contact Diagnoses 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HCC) Brain aneurysm subarachnoid hemorrhage Subarachnoid bleed (HCC) Encounter Details Date Type Department Care Team Description 03/10/2017 Surgery [place] Operating Room Edgar Bee MD REPAIR ANEURYSM [address] [address] [address] [place], [place] [id number] Social History Tobacco Use Types Packs/Day Years Used Date Current Every Day Smoker 1 30 Sex Assigned at Date Recorded Not on file as of this encounter Last Filed Vital Signs Vital Sign Reading Time Taken Blood Pressure 192/83 03/26/2017 1:47 PM MATERIAL RECLAIMER Pulse 72 03/26/2017 1:47 PM MATERIAL RECLAIMER Temperature 36.8 C (98.3 F) 03/26/2017 1:47 PM MATERIAL RECLAIMER Respiratory Rate - - Oxygen Saturation 95% 03/26/2017 1:47 PM MATERIAL RECLAIMER Inhaled Oxygen - - Concentration Weight 105.9 kg (233 lb 7.5 oz) 03/26/2017 12:47 PM MATERIAL RECLAIMER Height 172.7 cm (5' 8") 03/11/2017 3:28 PM MATERIAL RECLAIMER Body Mass Index 35.5 03/26/2017 12:47 PM MATERIAL RECLAIMER in this encounter Functional Status Functional Status [...] Melisa Emery APRN - 03/26/2017 3:49 PM MATERIAL RECLAIMER Formatting of this note may be different [...] complexity and goals with PT, OT, and BUCKLE SORTER for acute inpatient rehabilitation. Transferred to inpatient [...] or concerns regarding your hospital stay. Call [phone] Discharging attending physician: EDGAR BEE [[id number]] Pureed Diet You should eat or drink foods that are easy to swallow because they are blended , whipped, or mashed to a "pudding-like" texture. All foods on this diet should be smooth and free of lumps. [place] thick liquids. Needs supervision with oral intake. If you have questions about your diet after you go home, you can call a dietitian at [phone]. Incision Care *Keep your incision clean and [...] we can schedule his cranioplasty, please call [phone]. Provider EDGAR BEE [[id number]] Location [facility] Additional Discharge Instructions Patient Birgit Deluca Sat. Has Left arm fistula for vascular [...] Amairani Miller, RN - 03/26/2017 3:49 PM MATERIAL RECLAIMER Naren Mayfield discharged on 03/26/2017. Discharge instructions reviewed with nurse at rehab facility. Valuables returned: Yes Personal Items / Valuables: Valuables/Belongings home with patient. Home medications: None Functional assessment at discharge complete: Yes PIV removed prior to discharge. Report called to RN at rehab facility. All questions addressed and answered. * Melisa Emery APRN - 03/26/2017 12:43 PM MATERIAL RECLAIMER Formatting of this note may be different [...] (HCC) Added automatically from request for surgery [id number] IVH (intraventricular hemorrhage) (HCC) Intraparenchymal hematoma of brain (HCC) Subarachnoid bleed (HCC) Acquired skull defect Added automatically from request for surgery [id number] SBP goal - normotensive Nimotop SQH Keppra [...] assessed for need for restraints. Please call [phone] with questions. Melisa Emery APRN * Eddie Oconnor MBBS - 03/26/2017 10:43 AM MATERIAL RECLAIMER Formatting of this note may be different [...] renal standpoint. CIPRIANO De La Rosa Pager [phone] Subjective Naren Mayfield is a 51 y.o. [...] 20,000 Units/ sodium bicarbonate 650 mg(#) PRN (Pole Peeling Machine Operator Helper from Rx), sodium chloride 0.9% (NS) IP [...] Carie Kinney, OT - 03/26/2017 10:00 AM MATERIAL RECLAIMER OCCUPATIONAL THERAPY NO TREATMENT NOTE Patient off unit to dialysis at this time and unavailable for occupational therapy. OT will continue to follow. Therapist: ROME Portillo/Omar 1513 Date: 03/26/2017 * Miguel Angel Godoy, PT - 03/25/2017 10:57 AM MATERIAL RECLAIMER PHYSICAL THERAPY PROGRESS NOTE MOBILITY: Mobility Progressive [...] * Sharyn Rutledge - 03/25/2017 10:54 AM MATERIAL RECLAIMER Formatting of this note may be different from the original. OCCUPATIONAL THERAPY PROGRESS NOTE Patient Name: Naren Mayfield Room/Bed: KO1883/01 Admitting Diagnosis: subarachnoid hemorrhage Subarachnoid bleed (HCC) [...] Sharyn Monroy OTR/Omar 5294 Date: 03/25/2017 * dEdie Oconnor MBBS - 03/25/2017 10:17 AM MATERIAL RECLAIMER Formatting of this note may be different [...] with dialysis. CIPRIANO De La Rosa Pager [phone] Subjective Naren Mayfield is a 51 y.o. [...] Units/ sodium bicarbonate 650 mg(#) PRN ( Pole Peeling Machine Operator Helper from Rx), sodium chloride 0.9% (NS) IP [...] (03/25/171840) Intake/Output Summary (Last 24 hours) at 12/18/17 2017 Last data filed at 03/25/17 1453 [...] edema Skin: no rash Labs Recent Labs 03/23/1743803/24/1741203/25/17426 NA 136* 137 136* K 4.2 4.6 4.7 CL 92* 97* 96* CO2 17* 19* 17* GAP 27* 21* 23* BUN 78* 49* 66* CR 8.84* 6.39* 8.73* GLU 91 94 91 CA 10.9* 10.1 10.5 MG 2.6 -- -- PO4 8.6* 6.5* -- Recent Labs 03/23/1743803/24/1741203/25/17426 WBC 6.8 7.8 7.3 HGB 9.3* 10.0* [...] Dolores Simmons APRN - 03/25/2017 8:46 AM MATERIAL RECLAIMER Formatting of this note may be different [...] (HCC) Added automatically from request for surgery [id number] IVH (intraventricular hemorrhage) (HCC) Intraparenchymal hematoma of brain (HCC) Subarachnoid bleed (HCC) Acquired skull defect Added automatically from request for surgery [id number] SBP goal - normotensive Nimotop SQH Keppra (renal dosing) PT/OT - inpatient rehab - plan for [place] pending cranioplasty-if can be placed will wait to complete cranioplasty CT head 03/23 reviewed Prophylaxis: A)GI: PPI B) Lines: No C) Urinary Catheter: No D) Antibiotic Usage: No E) VTE: Pharmacological prophylaxis; SQ Heparin and Mechanical prophylaxis; Sequential compression device F) Restraints: Patient assessed for need for restraints. Please call [phone] with questions. Maria Dolores Simmons APRN [id number] - 03/24/2017 4:28 PM MATERIAL RECLAIMER ORTHOTICS/PROSTHETICS Follow-up Note: NAME: Naren Mayfield ROOM: [place] [address] DIAGNOSIS: brain bleed DATE OF INITIAL CONSULT: [...] Thank you Orthotics can be reached at [phone]. Jay Mortensen * Montana Moore MD - 03/24/2017 9:00 AM MATERIAL RECLAIMER Formatting of this note may be different [...] (HCC) Added automatically from request for surgery [id number] IVH (intraventricular hemorrhage) (HCC) Intraparenchymal hematoma of brain (HCC) Subarachnoid bleed (HCC) SBP goal - normotensive Nimotop SQH Keppra (renal dosing) PT/OT - inpatient rehab - plan for [place] pending cranioplasty Corpak out, continue to monitor [...] assessed for need for restraints. Please call [phone] with questions. Saeid Nix MD ATTESTATION housecalls nurse neurosurgery attending coverage. Patient seen and reviewed with resident team. Present management. Staff name: Montana Moore MD Date: 03/24/2017 * Jimena Rogel, RT - 03/24/2017 8:53 AM MATERIAL RECLAIMER Formatting of this note may be different [...] Date: 03/24/2017 Rubin AC=Airway clearance AM=Aerosolized medication BA=[place] aerosol DB&C=Deep breathe & cough FEV1=Forced expiratory volume in first second) IC=Inspiratory capacity LE=Lung expansion MDI=Metered dose inhaler Neb=Nebulizer O2=Oxygen Oxim=Oximetry PEFR=Peak expiratory flow rate DETECTIVE SERGEANT=Rapid Response Team * Yesenia Mendoza RN - 03/24/2017 8:25 AM MATERIAL RECLAIMER Patient up to chair but refusing to wear helmet because he states it is too small. This RN contacted [facility] [employer] about getting a larger helmet. * Consuelo Cox RN - 03/24/2017 7:11 AM MATERIAL RECLAIMER Neuro surgery paged. Pt removed Corpak last night, day RN in need of morning medications changed to PO medications. MD Nix placed the orders to change medications. Will continue to monitor. * Consuelo Cox RN - 03/24/2017 1:40 AM MATERIAL RECLAIMER Neuro surg paged. Pt's corpak came out after requesting tylenol, RN told MD that pt is tolerating nector thick liquids well. MD Nix notified and told RN told leave the corpak out and change the tylenol order to PO. * Yesenia Mendoza RN - 03/23/2017 6:47 PM MATERIAL RECLAIMER Patient arrived on unit via bed accompanied by RN. Patient transferred to the bed with assistance. Assessment completed, refer to flowsheet for details. Orders released, reviewed, and implemented as appropriate. Oriented to surroundings, call light within reach. Plan of care reviewed. Will continue to monitor and assess. * Ryan Villagran MD - 03/23/2017 3:25 PM MATERIAL RECLAIMER Formatting of this note may be different [...] per neuro team Ryan Villagran MD Pager [phone] Subjective Naren Mayfield is a 51 y.o. [...] 000 Units/ sodium bicarbonate 650 mg(#) PRN (Pole Peeling Machine Operator Helper from Rx), sodium chloride 0.9% (NS) IP [...] Montana Moore MD - 03/23/2017 2:54 PM MATERIAL RECLAIMER Formatting of this note may be different [...] (HCC) Added automatically from request for surgery [id number] IVH (intraventricular hemorrhage) (HCC) Intraparenchymal hematoma of brain (HCC) Subarachnoid bleed (HCC) Continue monitoring for seizure activity - renal keppra dosing SBP - normotensive Nimotop SQH Keppra PT/OT - inpatient rehab - plan for [facility], [place] when able Pending Corpak removal based on intake Possible cranioplasty Saturday Prophylaxis: A)GI: PPI B) Lines: Yes; Central Line; Indication: Hemodialysis/Plasmapheresis; Type: Implanted subcutaneous access device C) Urinary Catheter: No D) Antibiotic Usage: No E) VTE: Pharmacological prophylaxis; SQ Heparin and Mechanical prophylaxis; Sequential compression device F) Restraints: Patient assessed for need for restraints. Miguel Angel Jaime MD 0305 Please call [phone] with any questions. ATTESTATION housecalls nurse neurosurgery attending coverage. Patient seen and reviewed with resident team. Present management. Staff name: Montana Moore MD Date: 03/23/2017 * Matheus López RT - 03/23/2017 8:20 AM MATERIAL RECLAIMER Formatting of this note may be different [...] Date: 03/23/2017 Rubin AC=Airway clearance AM=Aerosolized medication BA=[place] aerosol DB&C=Deep breathe & cough FEV1=Forced expiratory volume in first second) IC=Inspiratory capacity LE=Lung expansion MDI=Metered dose inhaler Neb=Nebulizer O2=Oxygen Oxim=Oximetry PEFR=Peak expiratory flow rate DETECTIVE SERGEANT=Rapid Response Team * Portia Johnson RD - 03/22/2017 4:01 PM MATERIAL RECLAIMER CLINICAL NUTRITION Clinical Nutrition Follow-Up Summary Nutrition Assessment of Patient: Malnutrition Assessment: Does not meet criteria Current Oral Intake: Inadequate (new start of pureed today) Estimated Calorie Needs: 7026-8997 (30-32 kcal/kg desired wt) Estimated Protein Needs: 110-135 (1.5-1.8 g /kg desired wt) Oral Diet Order: Pureed, [place] Thick Liquids Oral Supplement: Nutrisource Fiber, TID, [...] of 40 ml/hr. 3 day EN/Prosource/fiber average met 75% min kcal goal and 82% min protein goal. Last dialysis 03/21. Non-pitting dependent edema BLE currently noted per RN, no pressure injuries noted. BM 03/22 (rectal tube out). BUCKLE SORTER evaluated pt safe for pureed diet with nectar thick liquids today and EN feeds discontinued. Primary team added 3 packs Nutrisource fiber ( 1 per each meal). FSBS 128-219 with correction insulin on board. BUCKLE SORTER continuing to follow pt for oral intake safety and options. Recommendation: Continue to encourage po inake on pureed diet with nectar thick fluids. Add CIB in nectar thick milk daily and PRN if tolerated with renal/diabetes status. Intervention / Plan: monitor po intake, wt trends, labs, meds, GI status monitor BUCKLE SORTER findings and recs Nutrition Diagnosis: Nutrition Diagnosis: Altered GI function Etiology: swallowing deficits s/p SAH/extubation Signs & Symptoms: pureed diet with nectar thick fluids per BUCKLE SORTER recs Goals: EN tolerated and meeting >85% of nutritional needs Time Frame: Throughout Stay Status: Partially met;no longer appropriate Patient to consume >50% of meals Time Frame: Within [address] * Lilian Garcia - 03/22/2017 1:57 PM MATERIAL RECLAIMER SPEECH-LANGUAGE PATHOLOGY COGNITIVE ASSESSMENT // SWALLOW TREATMENT [...] Not completed. Objective* Relevant Med Background: Naren iDckens a 51 y.o.malewith PMH of HLD, HTN, [...] safety problems given min cues. Therapist: Omar Ames/ISMAEL-BUCKLE SORTER [phone] Date: 03/22/2017 * Elaine Nicholson APRN - 03/22/2017 12:18 PM MATERIAL RECLAIMER Pt hemodynamically stable and neuro exam unchanged. Discussed with primary team and NEICU Team to sign off at this time. Please page [phone] with any questions. Thank you for this consult. * Sharyn Rutledge - 03/22/2017 11:32 AM MATERIAL RECLAIMER Formatting of this note may be different from the original. 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 Neuroscience Critical Care Progress Note Naren Mayfield Admission Date: 03/09/2017 LOS: 13 days ASSESSMENT/PLAN Patient Active Problem List Diagnosis Date Noted IVH (intraventricular hemorrhage) (HCC) 03/09/2017 Intraparenchymal hematoma of brain (HCC) 03/09/2017 Subarachnoid bleed (HCC) 03/09/2017 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HCC) 03/09/2017 Added automatically from request for surgery [id number] Naren Mayfieldis a 51 y.o.malewith PMH of [...] 130-180 to help with vasospasms - Nimodipine [id number] - Continue Keppra 1500mg daily after dialysis - TCDs Daily - Neuro-ICU monitoring, neurochecks q 2 hrs Sedation/Pain Management: Yes -ICU delirium - Stop Precedex - Fentanyl PRN - Seroquel BID 50mg - Haldol prn - Melatonin 3mg Qhs - Delirium protocol Cardiac: HTN, HLD - SBP goal: 130-180 - MAP goal > 65 - EKG with SR, LVH - 03/11 Restart POWER AND RECOVERY SUPERINTENDENT minoxidil and metoprolol BID - 03/11 ECHO [...] ml Net -880 ml Endocrine: DM - 12/ BG on chem 151- will start accuchecks x5 daily with SSI - 03/12 A1C-5.2 - Blood glucose goal 100-180mg/dl FEN: - IVF: No maintenance fluid - Magnesium goal >2.0, i-Jarred goal > 1.0, Potassium goal >4.0 mEq/L Prophylaxis Review: A) GI:[id number] B) Lines:2 peripheral lines and Right arterial [...] 20,000 Units/ sodium bicarbonate 650 mg(#) PRN (Pole Peeling Machine Operator Helper from Rx), sodium chloride 0.9% (NS) IP [...] 0350) POC Glucose (Download): (!) 155 (03/22/17 0332) Radiology and Other Diagnostic Procedures Review: Reviewed and discussed above. Jeancarlos Menendez MD Date: 03/22/[phone] Associated attestation - Derrell Bowers MD - 03/22/2017 2:30 PM MATERIAL RECLAIMER Formatting of this note may be different [...] Faraz Hernandez MD - 03/22/2017 6:57 AM MATERIAL RECLAIMER Formatting of this note may be different [...] (HCC) Added automatically from request for surgery [id number] IVH (intraventricular hemorrhage) (HCC) Intraparenchymal hematoma of brain (HCC) Subarachnoid bleed (HCC) Continue monitoring for seizure activity - renal keppra dosing Nimotop SBP - normotensive will continue to add PAT meds SQ heparin Keppra PT/OT - inpatient rehab - plan for [facility], [place] when able Progress on swallow evaluation - puree diet - may take out corpak. Prophylaxis: A)GI: PPI B) Lines: Yes; Central Line; Indication: Hemodialysis/Plasmapheresis; Type: Implanted subcutaneous access device C) Urinary Catheter: No D) Antibiotic Usage: No E) VTE: Pharmacological prophylaxis; SQ Heparin and Mechanical prophylaxis; Sequential compression device F) Restraints: Patient assessed for need for restraints. Faraz Hernandez MD Please call [phone] with any questions. * Adi Gonzalez, RT - 03/21/2017 10:39 PM MATERIAL RECLAIMER RN placed Mr. Mayfield on 2 Lpm Nasal cannula to keep saturation above 92%. * Jarett Sultana, RN - 03/21/2017 8:30 PM MATERIAL RECLAIMER Neurosurgery notified of pt guarding abdomen where bone flap is, his right lower quadrant of the abdomen. Neurosurgery at bedside to assess. Pt states its tender. Orders to monitor redness and site. Will continue to monitor. * Patti Mcclure - 03/21/2017 4:12 PM MATERIAL RECLAIMER SPEECH-LANGUAGE PATHOLOGY VIDEOSWALLOW ASSESSMENT EVALUATION SUMMARY Videoswallow [...] ). Please follow precautions posted at [facility]. 2:Will continue to follow for ongoing dysphagia [...] on pharyngeal structures. Swallow Recommendations* PO: Pureed, [place] Thick Liquids Swallow Strategies: Supervision During Meals [...] Fed Self Thin Liquid: 1 Tsp, Cup [place] Thick Liquid: 1 Tsp, Cup Other Consistencies: [...] cognitive evaluation with moderate cues. Therapist: Patti MUNOZ/BUCKLE SORTER Pager:[phone] Office:[phone] Date: 03/21/2017 * Consuelo Ayala RN - 03/21/2017 3:30 PM MATERIAL RECLAIMER Patient transported to radiology for a video swallow with this RN and transport. Patient tolerated transport and procedure without any complications. * Sharyn Rutledge - 03/21/2017 1:44 PM MATERIAL RECLAIMER OCCUPATIONAL THERAPY PROGRESS NOTE Patient Name: Naren Mayfield Room/Bed: HD8369/01 Admitting Diagnosis: subarachnoid hemorrhage Subarachnoid bleed (HCC) [...] Carole Sloan, PT - 03/21/2017 1:44 PM MATERIAL RECLAIMER PHYSICAL THERAPY PROGRESS NOTE MOBILITY: Mobility Progressive [...] Tracie Mitchell MD - 03/21/2017 1:15 PM MATERIAL RECLAIMER Formatting of this note may be different [...] per neuro team Tracie Mitchell MD Pager [phone] Subjective Naren Mayfield is a 51 y.o. [...] 20,000 Units/ sodium bicarbonate 650 mg(#) PRN (Pole Peeling Machine Operator Helper from Rx) , sodium chloride 0.9% (NS) [...] 1300) O2 Delivery: None (Room Air) (03/21 124) SpO2 Pulse: 87 (03/21 1300) BP: (145-201)/(56-80) [...] PO2ART 85 65* Tracie Mitchell MD Pager [phone] * Jeancarlos Menendez MD - 03/21/2017 7:22 AM MATERIAL RECLAIMER Formatting of this note may be different from the original. Neuroscience Critical Care Progress Note Naren Mayfield Admission Date: 03/09/2017 LOS: 12 days ASSESSMENT/PLAN Patient Active Problem List Diagnosis Date Noted IVH (intraventricular hemorrhage) ([facility]) 03/09/2017 Intraparenchymal hematoma of brain ([facility]) 03/09/2017 Subarachnoid bleed (HCC) 03/09/2017 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[facility]) 03/09/2017 Added automatically from request for surgery [id number] Naren Mayfieldis a 51 y.o.malewith PMH of [...] 130-200 to help with vasospasms - Nimodipine [id number] - Continue Keppra 1500mg daily after dialysis - TCDs Daily - Neuro-ICU monitoring, neurochecks q 2 hrs Sedation/Pain Management: Yes -ICU delirium - Stop Precedex - Fentanyl PRN - Seroquel BID 50mg - Haldol prn - Melatonin 3mg Qhs - Delirium protocol Cardiac: HTN, HLD - SBP goal: 130-180 - MAP goal > 65 - EKG with SR, LVH - 03/11 Restart POWER AND RECOVERY SUPERINTENDENT minoxidil and metoprolol BID - 03/11 ECHO [...] Potassium goal >4.0 mEq/L Prophylaxis Review: A) GI:F1Qzfglhd B) Lines:2 peripheral lines and Right arterial [...] 20,000 Units/ sodium bicarbonate 650 mg(#) PRN (Pole Peeling Machine Operator Helper from Rx), sodium chloride 0.9% (NS) IP [...] 0340) POC Glucose (Download): (!) 150 (03/21/17 034) Radiology and Other Diagnostic Procedures Review: Reviewed and discussed above. Jeancarlos Shon, MD Date: 03/21/[phone] Associated attestation - Derrell Bowers MD - 03/21/2017 12:29 PM MATERIAL RECLAIMER Formatting of this note may be different from the original. ATTESTATION I have seen, personally fully evaluated, and discussed patient with Dr Menendez and [facility]. I agree with the objective [...] Faraz Hernandez MD - 03/21/2017 7:00 AM MATERIAL RECLAIMER Formatting of this note may be different [...] (HCC) Added automatically from request for surgery [id number] IVH (intraventricular hemorrhage) (HCC) Intraparenchymal hematoma of brain (HCC) Subarachnoid bleed (HCC) Continue monitoring for seizure activity - renal keppra dosing Nimotop Continue SBP 130-200 SQ heparin Keppra PT/OT - inpatient rehab - plan for [facility], [place] when able Progress on swallow evaluation. Prophylaxis: A)GI: PPI B) Lines: Yes; Central Line; Indication: Hemodialysis/Plasmapheresis; Type: Implanted subcutaneous access device C) Urinary Catheter: No D) Antibiotic Usage: No E) VTE: Pharmacological prophylaxis; SQ Heparin and Mechanical prophylaxis; Sequential compression device F) Restraints: Patient assessed for need for restraints. Faraz Hernandez MD Please call [phone] with any questions. Associated attestation - Edgar Bee MD - 04/05/2017 10:39 AM MATERIAL RECLAIMER I have personally seen and examined the patient and developed the management plan as above. * Sharyn Rutledge - 03/20/2017 1:43 PM MATERIAL RECLAIMER OCCUPATIONAL THERAPY PROGRESS NOTE Patient Name: Naren Mayfield Room/Bed: [place] [address] Admitting Diagnosis: subarachnoid hemorrhage Subarachnoid bleed (HCC) [...] Therapist: MIRNA Westfall/Omar 5294 Date: 03/20/2017 * Carole Sloan, PT - 03/20/2017 1:42 PM MATERIAL RECLAIMER PHYSICAL THERAPY PROGRESS NOTE MOBILITY: Mobility Progressive [...] Jeancarlos Menendez MD - 03/20/2017 11:24 AM MATERIAL RECLAIMER Formatting of this note may be different from the original. Neuroscience Critical Care Progress Note Naren Mayfield Admission Date: 03/09/2017 LOS: 11 days ASSESSMENT/PLAN Patient Active Problem List Diagnosis Date Noted IVH (intraventricular hemorrhage) (HCC) 03/09/2017 Intraparenchymal hematoma of brain (HCC) 03/09/2017 Subarachnoid bleed (HCC) 03/09/2017 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HCC) 03/09/2017 Added automatically from request for surgery [id number] Naren Mayfieldis a 51 y.o.malewith PMH of [...] 130-200 to help with vasospasms - Nimodipine [id number] - Continue Keppra 1500mg daily after dialysis - TCDs Daily - Neuro-ICU monitoring, neurochecks q 2 hrs Sedation/Pain Management: Yes -ICU delirium - Stop Precedex - Fentanyl PRN - Seroquel BID 50mg - Haldol prn - Delirium protocol Cardiac: HTN, HLD - SBP goal: 130-180 - MAP goal > 65 - EKG with SR, LVH - 03/11 Restart POWER AND RECOVERY SUPERINTENDENT minoxidil and metoprolol BID - 03/11 ECHO [...] Potassium goal >4.0 mEq/L Prophylaxis Review: A) GI:C0Tdntvrw B) Lines:2 peripheral lines and Right arterial [...] 20,000 Units/ sodium bicarbonate 650 mg(#) PRN (Pole Peeling Machine Operator Helper from Rx) Critical Care Vitals: ICP Monitoring: [...] 0428) POC Glucose (Download): (!) 150 (03/20/17 5270) Radiology and Other Diagnostic Procedures Review: Reviewed and discussed above. Jeancarlos Menendez MD Date: 03/20/[phone] Associated attestation - Derrell Bowers MD - 03/20/2017 11:49 AM MATERIAL RECLAIMER Formatting of this note may be different from the original. ATTESTATION I have seen, personally fully evaluated, and discussed patient with Dr Menendez and [facility]. I agree with the objective findings and agree with the plan of care as documented by the resident with the exceptions noted. The patient is critically ill with SAH s/p clipping, EDH s/p evacuation, ESRD c/b metabolic acidosis, pleural effusion and hypoxemia. Restart amlodipine 10 mg daily (POWER AND RECOVERY SUPERINTENDENT med), may need addition of clonidine to [...] * Patti Mcclure - 03/20/2017 10:00 AM MATERIAL RECLAIMER SPEECH-LANGUAGE PATHOLOGY DAILY TREATMENT NOTE Patient seen [...] to follow 5x per week. Therapist: Patti MUNOZ/BUCKLE SORTER Pager:[phone] Office:[phone] Date: 03/20/2017 * Miguel Angel Jaime MD - 03/20/2017 7:05 AM MATERIAL RECLAIMER Formatting of this note may be different [...] (HCC) Added automatically from request for surgery [id number] IVH (intraventricular hemorrhage) (HCC) Intraparenchymal hematoma of [...] restraints. Miguel Angel Jaime MD Please call [phone] with any questions. Associated attestation - Edgar Bee MD - 04/05/2017 10:39 AM MATERIAL RECLAIMER I have personally seen and examined the patient and developed the management plan as above. * Mel Ortiz - 03/19/2017 2:50 PM MATERIAL RECLAIMER ORTHOTICS/PROSTHETICS Consult Note: NAME: Naren Mayfield ADMISSION DATE: admitted to hospital : 1965 AGE: 51 y.o. ROOM: [place] [address] DOCTOR: Date of Order: 03/19 Date of [...] Tracie Mitchell MD - 03/19/2017 1:28 PM MATERIAL RECLAIMER Formatting of this note may be different [...] per neuro team Tracie Mitchell MD Pager [phone] Subjective Naren Mayfield is a 51 y.o. [...] 20,000 Units/ sodium bicarbonate 650 mg(#) PRN (Pole Peeling Machine Operator Helper from Rx) Physical Exam Vital Signs: Last [...] PO2ART 96 108* Tracie Mitchell MD Pager [phone] * Portia Johnson, RD - 03/19/2017 11:50 AM [facility] CLINICAL NUTRITION Clinical Nutrition Follow-Up Summary Nutrition Assessment of Patient: Malnutrition Assessment: Does not meet criteria Current Oral Intake: NPO Estimated Calorie Needs: 3175-1983 (30-32 kcal/kg desired wt) Estimated Protein Needs: 111-133g (1.5-1.8g/kg desired wt 74kf) Oral Diet Order: NPO Intake (calories) Daily Average : 1786 kilocalories (3 day EN/Prosource ave 03/16; 80% goal) Intake (protein) Daily Average : 118 grams (3 day EN/Prosource ave ; within goal range) Current EN Order: Novasource Renal @ 40ml/hr with 30ml water bolus v1aiekt and 3 packs Prosource per day. This [...] with low dose correction insulin on board. BUCKLE SORTER to see pt for oral intake safety [...] carb diabetic diet order with texture per BUCKLE SORTER. Intervention / Plan: re-eval of kcal goals with HD Monitor EN tolerance/provision monitor wt trends, labs, meds, GI status monitor for swallow eval and ability to advance diet per BUCKLE SORTER Nutrition Diagnosis: Nutrition Diagnosis: Altered GI function Etiology: swallowing deficits s/p SAH/extubation Signs & Symptoms: NPO with EN feeds and plans for BUCKLE SORTER eval Goals: EN tolerated and meeting >85% of nutritional needs Time Frame: Throughout Stay Status: Partially met;Ongoing Portia Johnson, RD * Patti Mcclure - 03/19/2017 11:44 AM MATERIAL RECLAIMER SPEECH-LANGUAGE PATHOLOGY CLINICAL SWALLOW ASSESSMENT EVALUATION SUMMARY [...] 3-5x per week. Prognosis: Good NOMS Dysphagia Ratin0-Zjykzhgrbi-Lcxral Dysphagia -Not able to swallow safely by [...] swallow evaluation with moderate cues. Therapist:Patti Nava M.S. CCC-L/BUCKLE SORTER Pager:[phone] Office:[phone] Date:03/19/2017 * Jeancarlos Menendez MD - 03/19/2017 11:17 AM MATERIAL RECLAIMER Formatting of this note may be different from the original. 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 Added automatically from request for surgery [id number] Naren Mayfieldis a 51 y.o.malewith PMH of [...] 130-200 to help with vasospasms - Nimodipine [id number] - Continue Keppra 1500mg daily after dialysis - TCDs Daily - Neuro-ICU monitoring, neurochecks q 1 hrs Sedation/Pain Management: Yes -ICU delirium - Stop Precedex - Fentanyl PRN - Seroquel BID 50mg - Haldol prn - Delirium protocol Cardiac: HTN, HLD - SBP goal: 130-180 - MAP goal > 65 - EKG with SR, LVH - 03/11 Restart POWER AND RECOVERY SUPERINTENDENT minoxidil and metoprolol BID - 03/11 ECHO [...] Potassium goal >4.0 mEq/L Prophylaxis Review: A) GI:[id number] B) Lines:2 peripheral lines and Right arterial [...] 20,000 Units/ sodium bicarbonate 650 mg(#) PRN (Pole Peeling Machine Operator Helper from Rx), sodium chloride 0.9% (NS) IP [...] (Last 24 hours): Glucose: (!) 166 (03/19/17 3558) POC Glucose (Download): (!) 163 (03/19/17 5703) Radiology and Other Diagnostic Procedures Review: Reviewed and discussed above. Jeancarlos Menendez MD Date: 03/19/[phone] Associated attestation - Derrell Bowers MD - 03/19/2017 1:59 PM MATERIAL RECLAIMER Formatting of this note may be different from the original. ATTESTATION I have seen, personally fully evaluated, and discussed patient with Dr Menendez and the [facility] team. I agree with the objective findings [...] * Sharyn Rutledge - 03/19/2017 8:59 AM MATERIAL RECLAIMER OCCUPATIONAL THERAPY PROGRESS NOTE Patient Name: Naren Mayfield Room/Bed: [place] [address] Admitting Diagnosis: subarachnoid hemorrhage Subarachnoid bleed (HCC) [...] Carole Sloan, PT - 03/19/2017 8:58 AM MATERIAL RECLAIMER PHYSICAL THERAPY PROGRESS NOTE MOBILITY: Mobility Progressive [...] Angel Jaime MD - 03/19/2017 6:40 AM MATERIAL RECLAIMER Formatting of this note may be different [...] (HCC) Added automatically from request for surgery [id number] IVH (intraventricular hemorrhage) (HCC) Intraparenchymal hematoma of [...] restraints. Miguel Angel Jaime MD Please call [phone] with any questions. Associated attestation - Edgar Bee MD - 04/05/2017 10:39 AM MATERIAL RECLAIMER I have personally seen and examined the patient and developed the management plan as above. The patient has made steady progress following extubation and reintubation not required at present. Obstacles remain, vasospasm may interrupt progress, full ICU management. * Tracie Mitchell MD - 03/18/2017 3:42 PM MATERIAL RECLAIMER Formatting of this note may be different from the original. Renal Progress Note Name: Narne Mayfield Today's Date: 03/18/2017 Admission Date: 03/09/2017 [...] well so far Tracie Mitchell MD Pager [phone] Subjective Naren Mayfield is a 51 y.o. [...] 20,000 Units/ sodium bicarbonate 650 mg(#) PRN (Pole Peeling Machine Operator Helper from Rx) , sodium chloride 0.9% (NS) [...] PO2ART 108* 96 Tracie Mitchell MD Pager [phone] * Yesenia Yoon, PT - 03/18/2017 9:38 AM MATERIAL RECLAIMER PHYSICAL THERAPY PROGRESS NOTE MOBILITY: Progressive Mobility [...] * Sharyn Rutledge - 03/18/2017 9:38 AM MATERIAL RECLAIMER OCCUPATIONAL THERAPY PROGRESS NOTE Patient Name: Naren Mayfield Room/Bed: PO9377/01 Admitting Diagnosis: subarachnoid hemorrhage Subarachnoid bleed (HCC) [...] Jeancarlos Menendez MD - 03/18/2017 7:54 AM MATERIAL RECLAIMER Formatting of this note may be different from the original. Neuroscience Critical Care Progress Note Naren Mayfield Admission Date: 03/09/2017 LOS: 9 days ASSESSMENT/PLAN Patient Active Problem List Diagnosis Date Noted IVH (intraventricular hemorrhage) (HCC) 03/09/2017 Intraparenchymal hematoma of brain (HCC) 03/09/2017 Subarachnoid bleed (HCC) 03/09/2017 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HCC) 03/09/2017 Added automatically from request for surgery [id number] Naren Mayfieldis a 51 y.o.malewith PMH of [...] 130-180 to help with vasospasms - Nimodipine [id number] - Continue Keppra 1500mg daily after dialysis - TCDs Daily - Neuro-ICU monitoring, neurochecks q 1 hrs Sedation/Pain Management: Yes -ICU delirium - Precedex starterd overnight-will try and come off - Fentanyl PRN - Seroquel BID 50mg - Haldol prn - Delirium protocol Cardiac: HTN, HLD - SBP goal: 130-180 - MAP goal > 65 - EKG with SR, LVH - 03/11 Restart POWER AND RECOVERY SUPERINTENDENT minoxidil and metoprolol BID - 03/11 ECHO [...] Potassium goal >4.0 mEq/L Prophylaxis Review: A) GI:R0Jnyarrd B) Lines:2 peripheral lines and Right arterial [...] 20,000 Units/ sodium bicarbonate 650 mg(#) PRN (Pole Peeling Machine Operator Helper from Rx), sodium chloride 0.9% (NS) IP [...] SpO2 94 %. General appearance: well-developed Neurologic: [place] coma score: E: 2 M: 6 V: [...] discussed above. Jeancarlos Menendez MD Date: 03/18/[phone] Associated attestation - Derrell Bowers MD - 03/18/2017 12:46 PM MATERIAL RECLAIMER Formatting of this note may be different from the original. ATTESTATION I have seen, personally fully evaluated, and discussed patient with Dr Menendez and the [facility] team. I agree with the objective findings [...] Faraz Hernandez MD - 03/18/2017 6:50 AM MATERIAL RECLAIMER Formatting of this note may be different [...] (HCC) Added automatically from request for surgery [id number] IVH (intraventricular hemorrhage) (HCC) Intraparenchymal hematoma of [...] for restraints. Faraz Hernandez MD Please call [phone] with any questions. Associated attestation - Edgar Bee MD - 04/05/2017 10:37 AM MATERIAL RECLAIMER I have personally seen and examined the patient and developed the management plan as above. Reintubation not surprising given the number of variable simultaneously impacting patient's condition. * Nir Timmons MD - 03/17/2017 1:45 PM MATERIAL RECLAIMER Formatting of this note may be different [...] he can tolerate. Nir Timmons MD Pager [phone] Subjective Naren Mayfield is a 51 y.o. [...] 20,000 Units/ sodium bicarbonate 650 mg(#) PRN (Pole Peeling Machine Operator Helper from Rx) , sodium chloride 0.9% (NS) [...] (03/17 1000) O2 Delivery: Face Shield (03/17 09) SpO2 Pulse: 79 (03/17 1000) BP: (138-219)/(60-127) [...] PO2ART 74* 108* Nir Timmons MD Pager [phone] * Jeancarlos Menendez MD - 03/17/2017 12:05 PM MATERIAL RECLAIMER Formatting of this note may be different from the original. Neuroscience Critical Care Progress Note Naren Mayfield Admission Date: 03/09/2017 LOS: 8 days ASSESSMENT/PLAN Patient Active Problem List Diagnosis Date Noted IVH (intraventricular hemorrhage) (HCC) 03/09/2017 Intraparenchymal hematoma of brain (HCC) 03/09/2017 Subarachnoid bleed (HCC) 03/09/2017 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HCC) 03/09/2017 Added automatically from request for surgery [id number] aNren Mayfieldis a 51 y.o.malewith PMH of HLD, [...] 130-180 to help with vasospasms - Nimodipine 75mgd9tia - Continue Keppra 1500mg daily after dialysis - TCDs Daily - Neuro-ICU monitoring, neurochecks q 1 hrs Sedation/Pain Management: Yes - Precedex stopped - Fentanyl PRN - Assess for delirium daily - Seroquel BID 50mg - Haldol prn Cardiac: HTN, HLD - SBP goal: 130-180 - MAP goal > 65 - EKG with SR, LVH - 03/11 Restart POWER AND RECOVERY SUPERINTENDENT minoxidil and metoprolol BID - 03/11 ECHO [...] Potassium goal >4.0 mEq/L Prophylaxis Review: A) GI:Z5Ljxqmyg B) Lines:2 peripheral lines, place Right arterial line today C) Urinary Catheter:No D) Antibiotic Usage:No E) VTE:SCDs F) Isolation:NA G)Seizures:Keppra I) Restraints: Patient assessed for need for restraints. Disposition/Family:NEICU Primary service:ANIAG Consults: NEICU, Renal, Pulmonary __ SUBJECTIVE Naren [...] 20,000 Units/ sodium bicarbonate 650 mg(#) PRN (Pole Peeling Machine Operator Helper from Rx), sodium chloride 0.9% (NS) IP [...] SpO2 92 %. General appearance: well-developed Neurologic: [place] coma score: E: 2 M: 6 V: [...] discussed above. Jeancarlos Menendez MD Date: 03/17/[phone] Associated attestation - Bakari Wu MD - 03/17/2017 9:11 PM MATERIAL RECLAIMER Formatting of this note may be different [...] possible cerebral vasospasm - observe closely Possible [employer] INSPECTOR infection His agitation is also partly driven [...] Calista Espana MD - 03/17/2017 8:01 AM MATERIAL RECLAIMER Formatting of this note may be different [...] (HCC) Added automatically from request for surgery [id number] IVH (intraventricular hemorrhage) (HCC) Intraparenchymal hematoma of [...] for restraints. Calista Espana MD Please call [phone] with any questions. * Nir Timmons MD - 03/16/2017 5:19 PM MATERIAL RECLAIMER Formatting of this note may be different [...] computer is accurate. Nir Timmons MD Pager [phone] Subjective Naren Mayfield is a 51 y.o. [...] 20,000 Units/ sodium bicarbonate 650 mg(#) PRN (Pole Peeling Machine Operator Helper from Rx), sodium chloride 0.9% (NS) IP [...] PO2ART 145* 92 Nir Timmons MD Pager [phone] * Calista Espana MD - 03/16/2017 8:11 AM MATERIAL RECLAIMER Formatting of this note may be different [...] (HCC) Added automatically from request for surgery [id number] IVH (intraventricular hemorrhage) (HCC) Intraparenchymal hematoma of [...] for restraints. Calista Espana MD Please call [phone] with any questions. * Bakari Wu - 03/16/2017 6:35 AM MATERIAL RECLAIMER Formatting of this note may be different [...] 03/09/2017 Added automatically from request for surgery [id number] Naren Dickens a 51 y.o.malewith PMH of [...] 130-200 to help with vasospasms - Nimodipine [id number] - Continue Keppra 1500mg daily after dialysis [...] EKG with SR, LVH - 03/11 Restart POWER AND RECOVERY SUPERINTENDENT minoxidil and metoprolol BID - 03/11 ECHO [...] Potassium goal >4.0 mEq/L Prophylaxis Review: A) GI:T2Pfmrbvj B) Lines:Yes; Arterial Line; Indication: Continuous BP [...] (03/16 0500) O2 Delivery: Nasal Cannula (03/16 050) BP: (145-209)/(63-99) ABP: (102-207)/(58-82) Temp: [36.8 C [...] 20,000 Units/ sodium bicarbonate 650 mg(#) PRN (Pole Peeling Machine Operator Helper from Rx), sodium chloride 0.9% (NS) IP [...] hours): POC Glucose (Download): (!) 162 (03/16/17 0992) Radiology and Other Diagnostic Procedures Review: Reviewed and discussed above. Phi Velasquez MD Date: 03/16/[phone] * Portia Johnson, RD - 03/15/2017 2:18 PM MATERIAL RECLAIMER CLINICAL NUTRITION Clinical Nutrition Follow-Up Summary Nutrition [...] Renal @ 40ml/hr with 30ml water bolus p4npydn and 3 packs Prosource per day. This provides 2100 kcal, 132 g protien and 871ml free water. at goal. Comment: 51 yo M admitted / from OSH after being acutely unresponsive during [...] available this afternoon, says pt eating well POWER AND RECOVERY SUPERINTENDENT and eating whatever he wanted though he [...] carb diabetic diet order with texture per BUCKLE SORTER. Intervention / Plan: obtained subjective data monitor En tolerance/provision monitor for swallow eval and ability to advance diet per BUCKLE SORTER monitor wt trends, labs, meds, GI status [...] * Saman Joshi - 03/15/2017 2:07 PM MATERIAL RECLAIMER Patient disconnected from Video EEG Monitoring without complications. * Yesenia Yoon, PT - 03/15/2017 1:30 PM MATERIAL RECLAIMER PHYSICAL THERAPY ASSESSMENT MOBILITY: Progressive Mobility Level: [...] * Sharyn Rutledge - 03/15/2017 1:30 PM MATERIAL RECLAIMER OCCUPATIONAL THERAPY ASSESSMENT NOTE Patient Name: Naren Mayfield Room/Bed: VH0633/01 Admitting Diagnosis: subarachnoid hemorrhage Subarachnoid bleed (HCC) [...] Home Equipment: Cane Prior Function Level Of [place]: Independent with ADLs and functional transfers Lives [...] Jeancarlos Menendez MD - 03/15/2017 1:01 PM MATERIAL RECLAIMER Formatting of this note may be different from the original. 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 Added automatically from request for surgery [id number] Naren Mayfieldis a 51 y.o.malewith PMH of [...] 130-160 to help with vasospasms - Nimodipine [id number] - Continue Keppra 1500mg daily after dialysis [...] EKG with SR, LVH - 03/11 Restart POWER AND RECOVERY SUPERINTENDENT minoxidil and metoprolol BID - 03/11 ECHO [...] Potassium goal >4.0 mEq/L Prophylaxis Review: A) GI:L8Iggnwee B) Lines:Yes; Arterial Line; Indication: Continuous BP monitoring; Location: Radial C) Urinary Catheter:Yes; Retain cunningham due to: Need for accurate Intake and Output D) Antibiotic Usage:No E) VTE:SCDs F) Isolation:NA G)Seizures:Keppra I) Restraints: Patient assessed for need for restraints. Disposition/Family:NEICU Primary service:G Consults: NEICU, Renal, Pulmonary __ SUBJECTIVE Naren [...] 20,000 Units/ sodium bicarbonate 650 mg(#) PRN (Pole Peeling Machine Operator Helper from Rx), sodium chloride 0.9% (NS) IP [...] SpO2 92 %. General appearance: well-developed Neurologic: [place] coma score: E: 2 M: 6 V: [...] discussed above. Jeancarlos Menendez MD Date: 03/15/[phone] Associated attestation - Bakari Wu MD - 03/15/2017 6:36 PM MATERIAL RECLAIMER Formatting of this note may be different [...] discussed patient with Dr. Menendez and the [facility] team. I agree with the objective findings [...] Marta Soto OT - 03/14/2017 2:42 PM MATERIAL RECLAIMER OCCUPATIONAL THERAPY NO TREATMENT NOTE The patient [...] Tracie Mitchell MD - 03/14/2017 1:29 PM MATERIAL RECLAIMER Formatting of this note may be different [...] stable on treatment Tracie Mitchell MD Pager [phone] Subjective Naren Mayfield is a 51 y.o. [...] 20,000 Units/ sodium bicarbonate 650 mg(#) PRN (Pole Peeling Machine Operator Helper from Rx), sodium chloride 0.9% (NS) IP [...] PO2ART 112* 109* Tracie Mitchell MD Pager [phone] * Jeancarlos Menendez MD - 03/14/2017 12:41 PM MATERIAL RECLAIMER Formatting of this note may be different from the original. Neuroscience Critical Care Progress Note Naren Mayfield Admission Date: 03/09/2017 LOS: 5 days ASSESSMENT/PLAN Patient Active Problem List Diagnosis Date Noted IVH (intraventricular hemorrhage) ([facility]) 03/09/2017 Intraparenchymal hematoma of brain ([facility]) 03/09/2017 Subarachnoid bleed (HCC) 03/09/2017 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HCC) 03/09/2017 Added automatically from request for surgery [id number] Naren Dickens a 51 y.o.malewith PMH of [...] 130-160 to help with vasospasms - Nimodipine [id number] - Phenylephrine as needed - Increase Keppra [...] EKG with SR, LVH - 03/11 Restart POWER AND RECOVERY SUPERINTENDENT minoxidil and metoprolol BID - 03/11 ECHO [...] Potassium goal >4.0 mEq/L Prophylaxis Review: A) GI:K1Cpbpyki B) Lines:Yes; Arterial Line; Indication: Continuous BP [...] C (98.8 F) (03/14 0800) Pulse: 84 (03/140) Respirations: 22 PER MINUTE (03/14 1230) SpO2: [...] (not recorded) Vitals: 03/12/17 1603 03/14/17 0200 03/14/17729 Weight: 108.8 kg (239 lb 13.8 oz) [...] mL IV drip (std conc) Stopped (03/13/17 1034) PRN and Respiratory Meds:acetaminophen Q4H PRN, albuterol 0.5% Q4H PRN, fentaNYL citrate PF Q1H PRN, ipratropium bromide Q4H PRN, labetalol (NORMODYNE; TRANDATE) injection Q1H PRN, ondansetron Q6H PRN, pancrelipase 20,000 Units/ sodium bicarbonate 650 mg(#) PRN (Pole Peeling Machine Operator Helper from Rx), sodium chloride 0.9% (NS) IP [...] discussed above. Jeancarlos Menendez MD Date: 03/14/[phone] Associated attestation - Bakari Wu MD - 03/14/2017 9:51 PM MATERIAL RECLAIMER Formatting of this note may be different from the original. NEICU Attending Legislative Aide Attestation Naren Mayfield is a 51 y.o. [...] * Sydney Andrade - 03/14/2017 9:05 AM MATERIAL RECLAIMER EEG signals are clean of artifact and visible. Video was visualized and recording. Audio recording was checked and functioning. The VEEG system is on- line. Central monitoring station is functioning appropriately. The event button is operational and within reach of the patient and/or patient' s family. Electrode impedances below 5 kOhms * Faraz Hernandez MD - 03/14/2017 7:10 AM MATERIAL RECLAIMER Formatting of this note may be different from the original. Neurosurgery Progress Note SUBJECTIVE: Exam steadily improved overnight OBJECTIVE: Vital Signs: 24 Hour Range ABP: (100-180)/(49-101) Temp: [37.1 C (98.7 F)-37.9 C (100.2 F)] Pulse: [71-91] Respirations: [0 PER MINUTE-28 PER MINUTE] SpO2: [85 %-100 %] O2 Delivery: Endotracheal Tube (Oral) Intubated, sedation held Eyes open to stimulus FC briskly RUE,RLE, LUE Surgical fontanel soft ASSESSMENT/PLAN: 51 y.o. male s/p craniotomy x 2 for repair of right MCA aneurysm 03/10/2017 Active Hospital Problems Diagnosis 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HCC) Added automatically from request for surgery [id number] IVH (intraventricular hemorrhage) (HCC) Intraparenchymal hematoma of [...] for need for restraints. Faraz Hernandez MD [phone] Please call [phone] with any questions. Associated attestation - Edgar Bee MD - 04/05/2017 10:36 AM MATERIAL RECLAIMER I have personally seen and examined the patient and developed the management plan as above. * Tracie Mitchell MD - 03/13/2017 4:54 PM MATERIAL RECLAIMER Formatting of this note may be different [...] for dialysis needs. Tracie Mitchell MD Pager [phone] Subjective Naren Mayfield is a 51 y.o. [...] 20,000 Units/ sodium bicarbonate 650 mg(#) PRN (Pole Peeling Machine Operator Helper from Rx) Physical Exam Vital Signs: Last Filed In 24 Hours Vital Signs: 24 Hour Range BP: 115/50 (03/13 0200) Temp: 37.7 C (99.9 F) (03/13 1452) Pulse: 87 (03/13 1452) Respirations: 28 PER MINUTE (03/13 145) SpO2: 99 % (03/13 145) O2 Delivery: Endotracheal Tube (Oral) (03/13 1400) [...] PO2ART 99 112* Tracie Mitchell MD Pager [phone] * Portia Johnson, RD - 03/13/2017 3:54 PM [facility] CLINICAL NUTRITION Clinical Nutrition Follow-Up Summary [...] combination of renal-dialysis and diabetic consistent carb [id number] (60g CHO/meal). Intervention / Plan: attempted to obtain subjective data Monitor labs, weight trends, EN intake/tolerance, GI health Nutrition Diagnosis: Nutrition Diagnosis: Inadequate protein-energy intake Etiology: SAH, s/p intubation Signs & Symptoms: trophic EN feeds Goals: EN tolerated and meeting >75% of nutritional needs Time Frame: Within 72 Hours Status: Ongoing Portia Johnson RD * Saman Joshi - 03/13/2017 3:07 PM MATERIAL RECLAIMER EEG electrodes were successfully placed on pt's [...] Carole Sloan, PT - 03/13/2017 11:45 AM MATERIAL RECLAIMER PHYSICAL THERAPY NOTE Patient's case reviewed and discussed during interdisciplinary rounds. Patient is currently minimally responsive and unable to participate in purposeful physical therapy. Physical therapy will continue to follow and provide intervention as indicated. Therapist: Carole Sloan, PT Date: 03/13/2017 * Marcos Solorzano MD - 03/13/2017 11:14 AM MATERIAL RECLAIMER Formatting of this note may be different [...] 20,000 Units/ sodium bicarbonate 650 mg(#) PRN (Pole Peeling Machine Operator Helper from Rx) Radiology Pertinent radiology reviewed. Caroline Davila DO Pulmonary/Critical Care Pager # [phone] 03/13/2017 * Marta Soto, ERICK - 03/13/2017 10:05 AM MATERIAL RECLAIMER OCCUPATIONAL THERAPY NO TREATMENT NOTE The patient was not seen due to: discussed with RN. Pt with worsened exam, pt is not following commands and not able to participate in meaningful therapy at this time. Will continue to follow. Attempted to see patient 1 time(s) Therapist: Marta Soto, OT Date: 03/13/2017 * Jeancarlos Menendez MD - 03/13/2017 8:09 AM MATERIAL RECLAIMER Formatting of this note may be different from the original. 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 Added automatically from request for surgery [id number] Naren Mayfieldis a 51 y.o.malewith PMH of [...] 130-160 to help with vasospasms - Nimodipine 26qrz1epb - Phenylephrine - Keppra 1000mg daily after [...] EKG with SR, LVH - 03/11 Restart POWER AND RECOVERY SUPERINTENDENT minoxidil and metoprolol BID - 03/11 ECHO EF 55% - 03/13 Stop minoxidil and metoprolol Respiratory: Pleural effusion Date of Intubation: 03/09/17Reason: Airway protection - PS 450/40%//5 - ABG 7.35/40/112/21.9 - OSH CXR with [...] Intake/Output Summary (Last 24 hours) at 03/13/17 08 Last data filed at 03/13/17 06 Gross per 24 hour Intake 1994.19 ml Output 2831 ml Net -836.81 ml Endocrine: DM -12/5 BG on chem 151- will start accuchecks x5 daily with SSI - 125 A1C pending - Blood glucose goal 100-180mg/dl FEN: - IVF: No maintenance fluid, - Magnesium goal >2.0, i-Jarred goal > 1.0, Potassium goal >4.0 mEq/L Prophylaxis Review: A) GI:M3Rqtmcaj B) Lines:Yes; Arterial Line; Indication: Continuous BP [...] (03/13 636) O2 Delivery: Endotracheal Tube (Oral) (12/06 0600) Weight: 108.8 kg (239 lb 13.8 oz) [...] 20,000 Units/ sodium bicarbonate 650 mg(#) PRN (Pole Peeling Machine Operator Helper from Rx) Critical Care Vitals: ICP Monitoring: [...] discussed above. Jeancarlos Menendez MD Date: 03/13/[phone] Associated attestation - Bakari Wu MD - 03/13/2017 6:19 PM MATERIAL RECLAIMER Formatting of this note may be different [...] discussed patient with Dr. Menendez and the [facility] team. I agree with the objective findings [...] Angel Jaime MD - 03/13/2017 7:03 AM MATERIAL RECLAIMER Formatting of this note may be different [...] (HCC) Added automatically from request for surgery [id number] IVH (intraventricular hemorrhage) (HCC) Intraparenchymal hematoma of [...] need for restraints. Miguel Angel Jaime MD [id number] Please call [phone] with any questions. 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 Outcome uncertain, but we will continue full ICU and neurosurgical management. 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 Added automatically from request for surgery [id number] Naren Dickens a 51 y.o.malewith PMH of [...] 1000mg daily after dialysis daily - Nimotop [id number] - Consider 1:1 fluid replacement - TCDs Daily - Neuro-ICU monitoring, neurochecks q 1 hrs Sedation/Pain Management: Yes - Precedex drip for sedation - Fentanyl PRN - Assess for delirium daily Cardiac: HTN, HLD - SBP goal: 120-160 - MAP goal > 65 - Cardene drip to meet SBP goal, PRN hydralazine, labetalol - EKG with SR, LVH - 03/11 Restart POWER AND RECOVERY SUPERINTENDENT minoxidil and metoprolol BID - 03/11 ECHO [...] Potassium goal >4.0 mEq/L Prophylaxis Review: A) GI:P8Eytboad B) Lines:Yes; Arterial Line; Indication: Continuous BP [...] 20,000 Units/ sodium bicarbonate 650 mg(#) PRN (Pole Peeling Machine Operator Helper from Rx) Critical Care Vitals: ICP Monitoring: [...] hours) at 03/12/172304 Last data filed at 03/12/172199 Gross per 24 hour Intake 1831.73 ml [...] Review: all noted Bakari Wu Date: 03/12/[phone] * Nicolas Mclaughlin MD - 03/12/2017 5:00 PM MATERIAL RECLAIMER Brief Pulmonary Progress Note Due to required [...] Tracie Mitchell MD - 03/12/2017 4:52 PM MATERIAL RECLAIMER Formatting of this note may be different [...] for dialysis needs Tracie Mitchell MD Pager [phone] Subjective Naren Mayfield is a 51 y.o. [...] 20,000 Units/ sodium bicarbonate 650 mg(#) PRN (Pole Peeling Machine Operator Helper from Rx), sodium chloride 0.9% (NS) IP [...] PO2ART 132* 72* Tracie Mitchell MD Pager [phone] * Marta Soto, OT - 03/12/2017 9:44 AM MATERIAL RECLAIMER OCCUPATIONAL THERAPY NO TREATMENT NOTE The patient was not seen due to: pt still with sheaths in place. Will follow up tomorrow as appropriate. Therapist: Marta Soto, ERICK Date: 03/12/2017 * Faraz Hernandez MD - 03/12/2017 6:49 AM MATERIAL RECLAIMER Formatting of this note may be different [...] (HCC) Added automatically from request for surgery [id number] IVH (intraventricular hemorrhage) (HCC) Intraparenchymal hematoma of [...] for need for restraints. Faraz Hernandez MD 7562 Please call [phone] with any questions. Associated attestation - Edgar Bee MD - 04/05/2017 10:33 AM MATERIAL RECLAIMER I have personally seen and examined the patient and developed the management plan as above. * Geoffrey Guerra, CO OP - 03/12/2017 6:44 AM MATERIAL RECLAIMER Formatting of this note may be different from the original. Neuroscience Critical Care Progress Note Naren Mayfield Admission Date: 03/09/2017 LOS: 3 days ASSESSMENT/PLAN Patient Active Problem List Diagnosis Date Noted IVH (intraventricular hemorrhage) (HCC) 03/09/2017 Intraparenchymal hematoma of brain (HCC) 03/09/2017 Subarachnoid bleed (HCC) 03/09/2017 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HCC) 03/09/2017 Added automatically from request for surgery [id number] Naren Mayfieldis a 51 y.o.malewith PMH of [...] 1000mg daily after dialysis daily - Nimotop [id number] - Consider 1:1 fluid replacement - TCDs Daily - Neuro-ICU monitoring, neurochecks q 1 hrs Sedation/Pain Management: Yes - Precedex drip for sedation - Fentanyl PRN - Assess for delirium daily Cardiac: HTN, HLD - SBP goal: 120-160 - MAP goal > 65 - Cardene drip to meet SBP goal, PRN hydralazine, labetalol - EKG with SR, LVH - 03/11 Restart POWER AND RECOVERY SUPERINTENDENT minoxidil and metoprolol BID - 03/11 ECHO [...] Potassium goal >4.0 mEq/L Prophylaxis Review: A) GI:V2Diraqpp B) Lines:Yes; Arterial Line; Indication: Continuous BP [...] (98.8 F) (03/12 0400) Pulse: 58 (03/12 0600) Respirations: 18 PER MINUTE (03/12 600) SpO2: [...] consulted teams Geoffrey Guerra, ROLO Date: 03/12/[phone] * Bakari Wu - 03/11/2017 6:00 PM MATERIAL RECLAIMER Formatting of this note may be different [...] 03/09/2017 Added automatically from request for surgery [id number] Naren Mayfield is a 51 y.o. male [...] 1000mg daily after dialysis daily - Nimotop [id number] - Consider 1:1 fluid replacement - TCDs [...] EKG with SR, LVH - 03/11 Restart POWER AND RECOVERY SUPERINTENDENT minoxidil and metoprolol BID - ECHO this [...] Potassium goal >4.0 mEq/L Prophylaxis Review: A) GI:O0Krmluac B) Lines:Yes; Arterial Line; Indication: Continuous BP [...] Review: all noted Bakari Wu Date: 03/11/[phone] * Carole Sloan, PT - 03/11/2017 3:31 PM MATERIAL RECLAIMER PHYSICAL THERAPY NOTE Discussed case with bedside RN, patient is currently requiring increased oxygen demands and not appropriate for physical therapy intervention. Physical therapy will continue to follow and provide intervention as indicated. Therapist: Carole Sloan, PT Date: 03/11/2017 * Marta Soto, OT - 03/11/2017 3:05 PM MATERIAL RECLAIMER OCCUPATIONAL THERAPY NO TREATMENT NOTE The patient was not seen due to: getting bedside test. Still on 80% FiO2, but likely to wean later per RN. Will follow up tomorrow. Therapist: Marta Soto, OT Date: 03/11/2017 * Melisa Dailey, RT - 03/11/2017 8:22 AM MATERIAL RECLAIMER No wean till after dialysis per RN team * Faraz Hernandez MD - 03/11/2017 6:56 AM MATERIAL RECLAIMER Formatting of this note may be different [...] (HCC) Added automatically from request for surgery [id number] IVH (intraventricular hemorrhage) (HCC) Intraparenchymal hematoma of [...] for need for restraints. Faraz Hernandez MD 2833 Please call [phone] with any questions. * Geoffrey Guerra, CO OP - 03/11/2017 6:11 AM MATERIAL RECLAIMER Formatting of this note may be different from the original. Neuroscience Critical Care Progress Note Naren Mayfield Admission Date: 03/09/2017 LOS: 2 days ASSESSMENT/PLAN Patient Active Problem List Diagnosis Date Noted IVH (intraventricular hemorrhage) ([facility]) 03/09/2017 Intraparenchymal hematoma of brain (HCC) 03/09/2017 Subarachnoid bleed (HCC) 03/09/2017 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HCC) 03/09/2017 Added automatically from request for surgery [id number] Naren Mayfield is a 51 y.o. male [...] 1000mg daily after dialysis daily - Nimotop [id number] - Consider 1:1 fluid replacement - TCDs [...] EKG with SR, LVH - 03/11 Restart POWER AND RECOVERY SUPERINTENDENT minoxidil and metoprolol BID - ECHO this [...] Potassium goal >4.0 mEq/L Prophylaxis Review: A) GI:Y4Pytgzaw B) Lines:Yes; Arterial Line; Indication: Continuous BP [...] 0500) Temp: 37 C (98.6 F) (03/11 0400) Pulse: 73 (03/11 0500) Respirations: 23 PER MINUTE (03/11 0500) SpO2: 100 % (03/11 0500) O2 Delivery: Endotracheal Tube (Oral) (03/110) BP: (151)/(73) ABP: (116-170)/(58-74) ART MAP (Calculated) [...] appearance: well-developed, cooperative and mild distress Neurologic: [place] coma score: E: 3 M: 6 V: [...] of care with consulted teams. Geoffrey Guerra, CO OP Date: 03/11/[phone] * Tonia Lopes MD - 03/10/2017 9:02 PM MATERIAL RECLAIMER Formatting of this note may be different [...] was 8 mm and non-reactive. Impression: Mr. aMyfield is a 51 yo gentleman with a [...] Moi Sol RN - 03/10/2017 8:58 PM MATERIAL RECLAIMER Patient came from OR and arrived in [...] Saeid Thompson RN - 03/10/2017 8:42 PM MATERIAL RECLAIMER Patient transported to CT on the monitor, on the vent with RT. Physician with the patient during transport. Transported without incident. After CT scan the patient was transported to OR with anesthesia assuming care. * Courtney Dale MD - 03/10/2017 5:01 PM MATERIAL RECLAIMER Pulmonary service consulted for L pleural effusion at 8:30 am. Unable to see the patient all day as he has been in the OR since 7 am and has not returned. Pulmonary consult service will see the patient in the AM. Please page [phone] if stat consult required overnight. Courtney Dale MD, M.Sc. PGY4 Pulmonary and Critical Care Fellow Pager: [phone] * Tracie Mitchell MD - 03/10/2017 1:51 PM MATERIAL RECLAIMER Renal service consulted for ESRD. Unable to see patient as he has been in the OR since morning. Will see patient in AM unless acutely needed. Please obtain a BMP after return from OR * Yesenia Yoon, PT - 03/10/2017 9:31 AM MATERIAL RECLAIMER PHYSICAL THERAPY NOTE Physical therapy orders received and appreciated. Patient to OR today for right pterional craniotomy for clipping of MCA aneurysm. PT will follow up 03/11 and provide physical therapy intervention as indicated. Therapist: Yesenia Yoon, PT Date: 03/10/2017 * Brandy Posada, OT - 03/10/2017 9:10 AM MATERIAL RECLAIMER OCCUPATIONAL THERAPY NOTE OT orders received and appreciated. Pt to OR for procedure this date. OT will follow up tomorrow for evaluation/treatment as indicated. Therapist: Brandy Posada, ERICKR/L 3806 Date: 03/10/2017 * Moi Sol, TENZIN - 03/10/2017 8:25 AM MATERIAL RECLAIMER Patient started to be prepared for OR at 0730. Patient left room at 0815. Patient taking via bed with HOME APPLIANCE TECHNICIAN's and RT. No issues during this process. This RN was not able to get a full assessment done before the patient was taken to OR. * Rosie Tanner APRN - 03/10/2017 6:32 AM MATERIAL RECLAIMER Formatting of this note may be different from the original. Neuro Critical Care Progress Note Naren Mayfield Admission Date: 03/09/2017 LOS: 1 day Full Code ASSESSMENT/PLAN Patient Active Problem List Diagnosis Date Noted IVH (intraventricular hemorrhage) (HCC) 03/09/2017 Intraparenchymal hematoma of brain (HCC) 03/09/2017 Subarachnoid bleed (HCC) 03/09/2017 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HCC) 03/09/2017 Added automatically from request for surgery [id number] Naren Mayfield is a 51 y.o. male [...] EKG with SR, LVH - Will add POWER AND RECOVERY SUPERINTENDENT medications when verified - ECHO this AM Respiratory: Pleural effusion Date of Intubation: 03/09/17 Reason: Airway protection - AC 450/50%/16/5 - ABG [...] goal >4.0 mEq/L Prophylaxis Review: A) GI: H8Zwjqmen B) Lines: Yes; Arterial Line; Indication: Continuous [...] ART MAP (Calculated) mm H mm Hg (03/090) Temp: 36.6 C (97.8 F) (03/10 0000) Pulse: 68 (03/10 455) Respirations: 20 PER MINUTE (03/10 442) SpO2: 98 % (03/10 455) O2 Delivery: Endotracheal Tube (Oral) (03/100) Height: 172.7 cm (68") (03/09 1525) Weight: [...] radiologic and diagnostic procedures reviewed. Rosie Tanner, CO OP Date: 03/10/[phone] I spent 65 minutes managing the care [...] Tonia Lopes MD - 03/09/2017 6:22 PM MATERIAL RECLAIMER Formatting of this note may be different from the original. @DATE@ Naren Chaparro Lopes MD Neuro ICU Progress [...] Dayan Rollins RN - 03/09/2017 4:43 PM MATERIAL RECLAIMER Sedation physician present in room. Recent vitals and patient condition reviewed between sedating physician and nurse. Reassessment completed. Determination made to proceed with planned sedation. * Leslye Park RN ([place]) - 03/09/2017 3:30 PM MATERIAL RECLAIMER Pt arrived to room [id number] via EMS intubated and sedated. VSS, no [...] Faraz Hernandez MD - 03/10/2017 8:00 AM MATERIAL RECLAIMER Formatting of this note may be different from the original. Neurosurgery Pre-Operative Update Note Naren Chaparro has a complete pre-operative evaluation and is [...] A POS Faraz Hernandez MD Neurosurgery Resident [id number] Please call [phone] with any questions. Associated attestation - Edgar Bee MD - 04/05/2017 10:28 AM MATERIAL RECLAIMER Complex ruptured aneurysm, not well-amenable to endovascular approach. Patient is not a healthy man at baseline, with multiple comorbidities, on dialysis, however, surgery is preferred to secure the aneurysm to protect from rehemorrhage. Family understands and elects to proceed. * Braden De Leon MD - 03/09/2017 3:30 PM MATERIAL RECLAIMER Formatting of this note may be different [...] q4 - discussed with staff Please page [phone] with any questions Devon Castro MD 3034 __ Chief Complaint: MCA aneurysm History of [...] Dima Glasgow RN - 03/26/2017 9:00 AM MATERIAL RECLAIMER Associated Order(s): HEMODIALYSIS INPATIENT; HEMODIALYSIS DATE 847: Consent confirmed, assessment complete and charted. Patient's LFA AV Fistula was accessed with two #15 fistula needles upon the first attempt. Treatment was started at this time. 1247: Blood returned, needles de-cannulated, bleeding stopped in <10min. Treatment completed at this time. * Dharmesh Navarro RN - 03/23/2017 3:22 PM MATERIAL RECLAIMER Associated Order(s): HEMODIALYSIS INPATIENT; HEMODIALYSIS DATE Arrived at patient room C 5112 and treatment started at 1040 am. Vital signs stable. Patient tolerating treatment well. Treatment complete at 1444 pm. Vital signs stable. Gratz removed from L AV fistula and site healed. Report given to unit nurse. Left patient in room C 5112 in stable condition. * Hetal Roberts RN - 03/21/2017 8:44 AM MATERIAL RECLAIMER Associated Order(s): HEMODIALYSIS INPATIENT; HEMODIALYSIS DATE 629 Arrived in Pt's RM [id number] with portable R/O and diaysis machine/supply cart. ICU staff cleaning Pt from BM. [id number] R/O rinsing/cool down cycle in progress. Pt [...] Geoffrey Farias RN - 03/19/2017 11:57 AM MATERIAL RECLAIMER Associated Order(s): HEMODIALYSIS INPATIENT; HEMODIALYSIS DATE Hemodialysis [...] Mihai Aly RN - 03/18/2017 2:45 PM MATERIAL RECLAIMER Associated Order(s): HEMODIALYSIS INPATIENT; HEMODIALYSIS DATE Formatting of this note may be different from the original. 8515 Status: Active Ordering user: Nir Timmons MD 03/17/171224 Ordering provider: Nir Timmons MD Authorized by: Nir Timmons MD Frequency: Once 03/17/17 1800 - 1 Occurrences Released by: Patti Garcia RN 03/17/17 2298 Questions: Date Hemodialysis to be performed: 03/18/2017 [...] Vernell Corbin MD - 03/18/2017 1:01 PM MATERIAL RECLAIMER VIDEO EEG REPORT Name: Naren Mayfield Date [...] on the right side. Vernell Corbin MD C D Reactor Operator of Neurology [facility] * Bakari Wu - 03/16/2017 9:43 PM MATERIAL RECLAIMER Procedure(s): THORACENTESIS ED Procedure Note - Attempted [...] Mihai Aly RN - 03/16/2017 2:38 PM MATERIAL RECLAIMER Associated Order(s): HEMODIALYSIS INPATIENT; HEMODIALYSIS DATE Formatting [...] bed. 1530 B/P in the 200s systolic. buckram sewer giving meds. UF increased to 3.[address] Cardona. 1615 BP remains above 200 systolic. ICU nurse addressing B/P. 1745 Dialysis complete. UF total was 4 liters. Phi DAVE given report. * Vernell Corbin MD - 03/15/2017 9:22 AM MATERIAL RECLAIMER VIDEO EEG REPORT Name: Naren Mayfield Date [...] on the right side. Vernell Corbin MD C D Reactor Operator of Neurology [facility] * Marcos Solorzano MD - 03/14/2017 4:26 PM MATERIAL RECLAIMER Procedure(s): THORACENTESIS ED Pre-Procedure Diagnose(s): Pleural effusion [...] was present throughout the entire procedure Caroline Davila DO Pulmonary and Critical Care Fellow ATTESTATION I was present for the procedure performed by Dr. Davila, Pulmonary Critical Care Fellow. DOS 03-14-17 Staff name: Marcos Solorzano MD Date: 03/15/2017 * Vernell Corbin MD - 03/14/2017 9:22 AM MATERIAL RECLAIMER VIDEO EEG REPORT Name: Naren Mayfield Date [...] on the right side. Vernell Corbin MD C D Reactor Operator of Neurology [facility] * Germaine Covarrubias, RN - 03/14/2017 7:27 AM MATERIAL RECLAIMER Associated Order(s): HEMODIALYSIS INPATIENT; HEMODIALYSIS DATE campus police officer in patient's room. Patient sedated and on [...] Vernell Corbin MD - 03/13/2017 5:44 PM MATERIAL RECLAIMER EEG REPORT Date of service: 03/13/2017 Name: [...] on the right side. Vernell Corbin MD C D Reactor Operator of Neurology [facility] * Vandana Delaney RN - 03/12/2017 12:33 PM MATERIAL RECLAIMER Associated Order(s): HEMODIALYSIS INPATIENT; HEMODIALYSIS DATE 1233- [...] updated on pt. Pt remains in room [id number] at this time. * Bailee Gann RN - 03/11/2017 10:09 AM MATERIAL RECLAIMER Associated Order(s): HEMODIALYSIS INPATIENT 0900 Arrived in MY2299 to set up for dialysis. Assessment completed and documented. Care of pt, respirator and all lines remains with his primary URBAN SOCIOLOGISTTENZIN Jean. Left AVF assessed and found to [...] and paper tape. Report given to primary URBAN SOCIOLOGISTTENZIN Jean. * Dharmesh Navarro RN - 03/10/2017 9:10 PM MATERIAL RECLAIMER Associated Order(s): HEMODIALYSIS DATE Arrived on unit and contacted unit nurse for patient at 2014 pm. Patient had cranial bleed and sent to CT and then to OR for second time. Equine Breeder contacted and said patient may be done the next morning. Unit nurse also said patient may still have needles from outpatient dialysis unit in fistula. Patient already in OR. * Maxim Chauhan MD - 03/10/2017 9:45 AM MATERIAL RECLAIMER Pre-Procedure Diagnose(s): Aneurysm rupture of middle cerebral [...] a secure HIPAA-compliant network. Maxim Chauhan MD Jack Spooler Tender [facility] Department of Neurology in this encounter Consult Notes * Aleksandr Young MD - 03/19/2017 10:34 AM MATERIAL RECLAIMER Associated Order(s): CONSULT REHABILITATION MEDICINE PHYSICIAN Formatting of this note may be different from the original. Physical Medicine & Rehabilitation Consult Note Date of Service: 03/19/2017 Naren Mayfield is a 51 y.o. male. : 1965 Primary Insurance: MEDICARE Secondary Insurance: [facility] MEDICAID [place] Tertiary Insurance: Financial Class: [...] a 51 y.o. male admitted to [facility] on 03/09/2017 with the following issues: IPH/SAH [...] Cognitive impairment Pt would benefit from formal BUCKLE SORTER cognitive evaluation to determine specific domains of cognitive dysfunction at this or next level of care. Aleksandr Young MD Rehab Consult Pager: [phone] History of Present Illness Hospital Course: Mr. Naren Mayfield is a 51 yo M with a hx of DM, HTN, HLD and renal failure on HD transferred to [facility] from OSH on 03/09 [...] CRANIOTOMY performed by Edgar Bee MD at [facility] OR/Periop INTRACRANIAL ANEURYSM REPAIR Right 03/10/2017 Rt pterional craniotomy for clipping of MCA aneurysm performed by Edgar Bee MD at [facility] OR/Periop Family\\Social History Social [...] 20,000 Units/ sodium bicarbonate 650 mg(#) PRN (Pole Peeling Machine Operator Helper from Rx), sodium chloride 0.9% (NS) IP [...] Richard Mackenzie MD - 03/19/2017 10:02 PM [facility] Rehabilitation Medicine Attending Physician Attestation: Agree with [...] aneurysm, and thus he was admitted to AlICU and underwent angiography which showed Large right [...] complexity and goals with PT, OT, and BUCKLE SORTER for acute inpatient rehabilitation. Recommend continued therapies, while the primary team continues to monitor and manage acute concerns for the patient while addressing dysphagia and adequate nutritional access. Discussed with the patient and will discuss with our rental coordinator. Will continue to follow for medical stability/ appropriateness for discharge. Thank you for this consultation. Please call with questions/concerns. I personally performed rubin portions of the history and exam. I discussed the case with the resident and concur with the resident's documentation of history, physical assessment and treatment plan unless otherwise noted. Richard Mackenzie MD * Janeen Morse - 03/12/2017 3:10 PM MATERIAL RECLAIMER Associated Order(s): CONSULT DIETITIAN CLINICAL NUTRITION Clinical Nutrition Assessment Summary Nutrition Assessment of Patient: BMI Categories Adult: Obesity Class II: 35-39.9 Malnutrition Assessment: (pending subjective information) Current Oral Intake: NPO Estimated Calorie Needs: 1850-2220kcal (25-30kcal/kg desired wt 74kg) Estimated Protein Needs: 111-133g (1.5-1.8g/kg desired wt 74kf) Oral Diet Order: NPO Current EN Order: Novasource Renal @ 40ml/hr with 30ml water bolus [id number]. This provides 1920kcal, 87g, and 871ml free [...] complete. Unable to see pt today, RD international trade analyst to follow up tomorrow. Pt received dialysis [...] of renal- dialysis and diabetic consistent carb [id number] (60g CHO/meal). Intervention / Plan: Consult complete for EN recommendations Monitor labs, weight trends, EN intake/tolerance, GI health Will obtain further subjective data on follow up Nutrition Diagnosis: Nutrition Diagnosis: Inadequate protein-energy intake Etiology: SAH, s/p intubation Signs & Symptoms: 2 days w/o EN support Goals: EN tolerated and meeting >75% of nutritional needs Time Frame: Within 72 Hours Janeen Morse, Metal Sprayer Protective [employer]ating *[id number] Associated attestation - Crystal Mayen RD - 03/12/2017 3:21 PM MATERIAL RECLAIMER Agree with international trade analyst's initial assessment/recommendations as summarized. Malnutrition assessment and updated recommendations to be completed at next visit as feasible. If patient unable to extubate soon, hypocaloric/high protein feeding goals should be initiated. Crystal Mayen RD, LD, CNSC *[phone] * Yuly Meléndez MD - 03/11/2017 5:02 PM MATERIAL RECLAIMER Associated Order(s): CONSULT PULMONARY/CRITICAL CARE PHYSICIAN Formatting [...] Pertinent radiology reviewed. Nicolas Mclaughlin MD Pager [phone] * Tracie Mitchell MD - 03/10/2017 10:43 AM MATERIAL RECLAIMER Associated Order(s): CONSULT NEPHROLOGY PHYSICIAN Formatting of [...] - Daily weights Tracie Mitchell MD Pager [phone] History Reason for Consult: ESRD HPI: Naren [...] 1.5 years ago and he dialyses in [place], [place]. He usually dialyses T// but dialysed 4 times last week as he was way above dry weight. Past Medical History: Diagnosis Date DM (diabetes mellitus) (HCC) HLD (hyperlipidemia) HTN (hypertension) Renal failure Past Surgical History: Procedure Laterality Date INTRACRANIAL ANEURYSM REPAIR N/A 03/10/2017 REPAIR ANEURYSM CRANIOTOMY performed by Edgar Bee MD at [facility] OR/Periop INTRACRANIAL ANEURYSM REPAIR Right 03/10/2017 Rt pterional craniotomy for clipping of MCA aneurysm performed by Edgar Bee MD at [facility] OR/Periop Family History Problem [...] Pertinent radiology reviewed. Tracie Mitchell MD Pager [phone] * Rosie Tanner, [place] OP - 03/09/2017 4:28 PM MATERIAL RECLAIMER Associated Order(s): CONSULT NEURO CRITICAL CARE PHYSICIAN [...] Cognitive impairment suspected? Yes - if yes, BUCKLE SORTER cognitive evaluation ordered? Not at this time, will evaluate when extubated Sedation/Pain Management: Yes - Propofol - Assess for delirium daily Cardiac: - SBP goal: < 140 - MAP goal > 65 - Cardene drip to meet SBP goal - EKG with SR - Will add POWER AND RECOVERY SUPERINTENDENT medications when verified Respiratory: Date of Intubation: [...] goal >4.0 mEq/L Prophylaxis Review: A) GI: [id number] B) Lines: Yes; Arterial Line; Indication: Continuous BP monitoring; Location: Radial C) Urinary Catheter: Yes; Retain cunningham due to: Need for accurate Intake and Output D) Antibiotic Usage: No E) VTE: SCDs F) Isolation: NA G)Seizures: Keppra I) Restraints: Patient assessed for need for restraints. Disposition/Family: NEICU Primary service: RADHA Consults: ERNIEU, Renal SUBJECTIVE Chief Complaint: SAH History of [...] Code Decision Maker: Self and sister Mary [phone] Immunizations (includes history and patient reported): There [...] output data in the 24 hours ending 03/09/174 Physical Exam: Blood pressure 127/80, pulse 70, [...] procedures reviewed. Rosie Tanner APRN Date: 03/09/[phone] I spent 65 minutes managing the care [...] - Yesenia Stockton - 03/26/2017 11:21 AM MATERIAL RECLAIMER Case Management Progress Note NAME:Naren Mayfield :[birth year] AGE: 51 y.o. ADMISSION DATE: 03/09/2017 DAYS ADMITTED: LOS: 17 days Todays Date: 03/26/2017 Plan SW met with the neurosurgery team regarding POC and d/c planning. Pt is ready to d/c today, facility has accepted, since SW was able to get transportation arranged for dialysis. Pt going to [facility], [facility] today at 3:00 via [employer] W/C Van ([phone]), following his dialysis today Interventions ? Support Mary Mayfield, pt's sister is primary source of support. ? Info or Referral REJI called [facility] Medicaid to set up transportation ([phone]; where's my ride is [phone]) at d/c; [facility] denied. [facility] also originally denied dialysis apt transportation, but REJI was eventually able to obtain authorization. Pt's transport to and from Dialysis apts from [facility], are as follows: Pt's Medicaid ID is [id number] 03/28/17 9:00am apt strip picker @ 8 [facility] Confirmation#[id number] 03/30/17 9:00am strip picker @8 Confirmation #[id number] 04/02/17 9am apt, strip picker @ 8:00am from [facility] Confirmatoin #[id number] 04/04/17 9am apt from [facility] (working supervisor @ 8:00am) Confirmation #[id number] 04/06/17 9am apt from [facility] (working supervisor @ 8:00am) Confirmation #[id number] 04/09/17 9am apt from [facility] (working supervisor @ 8:00am) Confirmation #[id number] 04/11/17 9am apt from [facility] (working supervisor @ 8:00am) Confirmation #[id number] 04/13/17 9am apt from [facility] (working supervisor @ 8:00am) Confirmation #[id number] ? Discharge Planning Discharge Planning: OP HD or PD Pt planning on going to [facility], [facility] today at 3:00 via [employer] W/C Van ([phone]) [facility] [address] [place], [place] [address] ? Medication Needs ? Financial ? Legal ? Other Disposition ? Discharge Preparation When ready for discharge, who will be responsible for transporting?: sister Type of Residence: Private residence Patient expects to be discharged to: Rehab facility Was the patient receiving home care services?: No ? Expected Discharge Expected Discharge Date: 03/25/17 ? Discharge Disposition Disposition: Inpatient Rehab Facility (IRF) Inpatient Rehab: Via [facility] ([place], [place]) ([phone]) ? Next Level Care Yesenia Stockton [facility] [place] *[id number] * Case Mgmt DC Plan - Kavitha Pimnetel - 03/26/2017 10:04 AM MATERIAL RECLAIMER Request to Arrange Patient Transportation Received request from Yesenia Stockton [facility] to arrange transportation for pt to transfer to [facility] [address] [address] today. Arrival date and time: 03/26 @ 1530 Transport company: [employer] @ [phone] Instructions for bull driver: Pt needs wheelchair van, has no other special needs. Cost of transport: $325 to be paid by [facility] per [facility]. Kavitha Pimentel Director Executive Communications For further assistance please contact [facility] *[phone] * Care Plan - Consuelo Cox RN - 03/26/2017 12:33 AM MATERIAL RECLAIMER Problem: Neurological Status, Impaired/Altered Goal: Progress toward [...] - Kavitha Pimentel - 03/25/2017 11:32 AM MATERIAL RECLAIMER Request to Arrange Patient Transportation Received request from Yesenia Stockton [facility] to arrange transportation for pt to transfer to [facility], [address] [place] [address] today. Transportation cancelled per [facility] @ 1330 Transport company: [employer] [phone] Instructions for bull driver: Pt needs wheelchair van, has no other special needs. Cost of transport: $325 to be paid by [facility] per [facility] Patient Transportation Quote Request Received request from MAE Rossi to check on quotes for wheelchair van to transfer pt to [facility], [address] [place] [address] [employer] [phone]: $325 Assisted Transport [phone]- $480 Kavitha Pimentel Director Executive Communications For further assistance please contact [facility] *[phone] * Case Mgmt DC Plan - Yesenia Stockton - 03/25/2017 11:28 AM MATERIAL RECLAIMER Case Management Progress Note NAME:Naren Mayfield :[birth year] [...] Support ? Info or Referral REJI called [facility] Community Plan to set up w/c transport [phone]; member service authorization requested for pt's dialysis transportation. Mihir to call REJI back with confirmation ([phone]); 16:30 03/25/17. REJI also called [employer] [facility] in [place] requesting transport assistance. 03/28/17 9:00am apt strip picker @ 8 From [facility] Confirmation# 03/30/17 9:00am strip picker @8 Confirmation # 04/01/17 9am apt, strip picker @ 8:00am from [facility] Confirmatoin # 04/03/17 9am apt from [facility] (working supervisor @ 8:00am) Confirmation # 04/05/17 9am apt from [facility] (working supervisor @ 8:00am) Confirmation # 04/07/17 9am apt from [facility] (working supervisor @ 8:00am) Confirmation # 04/09/17 9am apt from [facility] (working supervisor @ 8:00am) Confirmation # 04/11/17 9am apt from [facility] (working supervisor @ 8:00am) Confirmation # 04/13/17 9am apt from [facility] (working supervisor @ 8:00am) Confirmation # [facility] will not transport pt from Hospital to [facility]. REJI discussed this with the @ [facility] ? Discharge Planning Discharge Planning: OP HD or PD Set up transportation for pt's dialysis. Pt going to [facility] as soon as w/c van can be arranged [facility] [place] - Acute Rehab [address] [place], [place] [address] [place] [address] [facility] [address] [place], [place] [address] ? Medication Needs ? Financial ? Legal [...] Level Care Yesenia Stockton LMSW *[phone] * Care Plan - Patito Moulton RN - 03/25/2017 12:19 AM MATERIAL RECLAIMER Problem: Neurological Status, Impaired/Altered Goal: Progress toward [...] Consuelo Cox RN - 03/24/2017 3:07 AM MATERIAL RECLAIMER Problem: Neurological Status, Impaired/Altered Goal: Progress toward [...] - Yesenia Stockton - 03/22/2017 4:17 PM MATERIAL RECLAIMER Case Management Progress Note NAME:Naren Mayfield :[birth year] AGE: 51 y.o. ADMISSION DATE: 03/09/2017 DAYS ADMITTED: LOS: 13 days Todays Date: 03/22/2017 Plan SW met with the neurosurgery team regarding POC and d/c planning. Pt may be ready to transition to IPR as early as Saturday. Interventions ? Support Pt's sister, Mary Mayfield ([phone]) is pt's primary support. She is working with [facility] housing to try and get him his own place, once he is done with IPR. She is also taking responsibility for pt's daughter, Charo (9y/o). ? Info or Referral was asked to draft a statement for pt, stating that pt is giving his sister , Mary, permission to assist with setting up Housing/utility and practical planning through the end of this year (04/07/17). SW reviewed with pt and pt signed. This was sent to Calista Maldonado with the housing authority in [place] ( [phone]; [phone]); per pt and pt's sister's request. ? Discharge Planning Discharge Planning: OP HD or PD SW sent a referral to [facility] in [place], but they denied acceptance , stating that pt needs to have a d/c plan from there. SW discussed this with Mary, and she stated that she will not let him be homeless--that she can take him back in to her home, until she can get the housing voucher approved. SW will review this with [facility] clinical liaison. [facility] in [place] - Acute Rehab 1 [place] [address] ? Medication Needs ? Financial ? Legal ? Other Disposition ? Discharge Preparation When ready for discharge, who will be responsible for transporting?: sister Type of Residence: Private residence Patient expects to be discharged to: Rehab facility Was the patient receiving home care services?: No ? Expected Discharge Expected Discharge Date: 03/25/17 ? Discharge Disposition ? Next Level Care Yesenia Stockton, [facility] [place] *[phone] * Procedures (Immed Post or Bedside) - Elaine Nicholson APRN - 03/21/2017 5: 47 PM MATERIAL RECLAIMER Formatting of this note may be different from the original. Neuro Critical Care Transcranial Doppler Ultrasound Report Naren Chaparro [id number] 51 y.o. male Diagnosis: SAH Indication for [...] Derrell Bowers MD - 03/22/2017 7:55 AM MATERIAL RECLAIMER I have personally reviewed the study. Bilaterally elevated LRs but mean MCA velocities < 120, do not meet criteria for vasospasm. Follow up study recommended. Derrell Bowers MD 03/22/2017 7:55 AM * Case Mgmt DC Plan - Kavitha Pimentel - 03/20/2017 3:54 PM MATERIAL RECLAIMER Request to Send Referral Received request from Yesenia Stockton [facility] to send referral to the following facility: [facility] [address] [place] [address] Kavitha Pimentel Director Executive Communications For additional assistance please contact [facility] *[phone] * Case Mgmt DC Plan - Diana Scott RN - 03/20/2017 3:33 PM MATERIAL RECLAIMER Case Management Progress Note NAME:Naren Mayfield :[birth year] AGE: 51 y.o. ADMISSION DATE: 03/09/2017 DAYS ADMITTED: LOS: 11 days Todays Date: 03/20/2017 Plan Ongoing DC planning - Dialysis Center update Interventions ? Support ? Info or Referral ? Discharge Planning Discharge Planning: OP HD or PD - NCM updated Danita at [facility] [place], [place], ph [phone] / fax [phone] on patient's discharge planning (likely IPR, hopefully in [place], next week). NCM will contact [facility] again upon discharge so that they [...] Disposition ? Next Level Care THANG Mack, synthetic filament spinner Nurse Money Order Clerk [phone] * Case Mgmt DC Plan - Yesenia Stockton - 03/20/2017 2:58 PM MATERIAL RECLAIMER Case Management Progress Note NAME:Naren Mayfield :[birth year] AGE: 51 y.o. ADMISSION DATE: 03/09/2017 DAYS ADMITTED: LOS: 11 days Todays Date: 03/20/2017 Plan REJI discussed this pt with the neurosurgery team [...] care of pt's daughter, Charo (9 y/o). REJI notified pt that SW had contacted the [...] pt appropriate, but prefers to go to [facility]. REJI requested that the [facility] please send a referral for their [...] Disposition ? Next Level Care Yesenia Stockton, [facility] [place] [place] *6246 * Procedures (Immed Post or Bedside) - Rylee Arango APRN - 03/19/2017 12:17 PM MATERIAL RECLAIMER Formatting of this note may be different from the original. Neuro Critical Care Transcranial Doppler Ultrasound Report Naren Mayfield [id number] 51 y.o. male Diagnosis: SAH Indication for [...] Derrell Bowers MD - 03/19/2017 1:54 PM MATERIAL RECLAIMER Interval decrease in the MFV of left MCA, with slight increase in MFV of right MCAs. LRL 1.1; RLR 1.2. No sonographic evidence of vasospasm on this study. Derrell Bowers MD 03/19/2017 1:54 PM * Case Mgmt DC Plan - Yesenia Stockton - 03/18/2017 10:44 AM MATERIAL RECLAIMER Case Management Progress Note NAME:Naren Mayfield :[birth year] [...] to pt's positive UDS, SW has contacted [facility] and filed a report; family aware of SW's report. Pt has been accepted for HUD housing in [place] and was getting ready to move into his home just when he experienced the SAH. SW unsure what the status of his home currently is, but has offered support if letters re:pt's medical situation are needed. ? Info or Referral ? Discharge Planning Discharge Planning: OP HD or PD Rehab consult has been placed. Pt likely returning to [facility] ( [place] IPR). SW will watch to consult them [...] Tanner APRN - 03/18/2017 5: 56 AM MATERIAL RECLAIMER Formatting of this note may be different from the original. Neuro Critical Care Transcranial Doppler Ultrasound Report Naren Mayfield [id number] 51 y.o. male Diagnosis: SAH Indication for [...] Derrell Bowers MD - 03/21/2017 6:12 PM MATERIAL RECLAIMER Elevated LR on left side 3.3, however mean flow velocity of L MCA is < 130 cm/ s. Could be an early finding of subsequent vasospasm. Right LR 1.6, normal velocities on right side. Follow up study recommended. Derrell Bowers MD 03/19/2017 1:50 PM * Critical Results - Karen Escalante RN - 03/17/2017 6:01 AM MATERIAL RECLAIMER Critical result or procedure called (document test and value, and read back): PO2 49 Time MD/COST ESTIMATING CLERK Notified: 5905 MD/COST ESTIMATING CLERK Name: Rosie Tanner APRN MD/COST ESTIMATING CLERK Response/Orders Given: Result thought to be in error. Orders given to redraw. * Procedures (Immed Post or Bedside) - Rosie Tanner APRN - 03/17/2017 5: 43 AM MATERIAL RECLAIMER Formatting of this note may be different from the original. Neuro Critical Care Transcranial Doppler Ultrasound Report Naren Chaparro [id number] 51 y.o. male Diagnosis: SAH Indication for [...] Deborah Lynn MD - 03/26/2017 2:57 PM MATERIAL RECLAIMER Formatting of this note may be different from the original. ATTESTATION: No evidence of vasospasm on this study. I have interpreted the results. Staff name: Deborah Lynn MD Date: 03/26/2017 * Care Plan - Mary Amezquita RN - 03/14/2017 6:40 PM MATERIAL RECLAIMER Problem: Infection, Risk of, Central Venous Catheter-Associated Bloodstream Infection Goal: Absence of CVC Associated Bloodstream infection Outcome: Goal Achieved Date Met: 03/14/17 Pt no longer has central line * Case Mgmt DC Plan - Yesenia Stockton - 03/14/2017 10:46 AM MATERIAL RECLAIMER Case Management Progress Note NAME:Naren Mayfield :[birth year] [...] Disposition ? Next Level Care Yesenia Stockton, [facility] [place] [place] *[id number] * Procedures (Immed Post or Bedside) - Elaine Nicholson APRN - 03/14/2017 6: 46 AM MATERIAL RECLAIMER Formatting of this note may be different from the original. Neuro Critical Care Transcranial Doppler Ultrasound Report Naren Mayfield [id number] 51 y.o. male Diagnosis: SAH Indication for [...] Deborah Lynn MD - 03/26/2017 2:54 PM MATERIAL RECLAIMER Formatting of this note may be different from the original. ATTESTATION: Right TCDs not able to be obtained. Left sided study shows no evidence of vasospasm. I have interpreted the results. Staff name: Deborah Lynn MD Date: 03/26/2017 * Care Coordination-Inpatient - Vernell Corbin MD - 03/13/2017 6:56 PM MATERIAL RECLAIMER BRIEF VEEG NOTE First 30 min of EEG reviewed. Right PLEDs are seen. Will continue to monitor. Vernell Corbin MD C D Reactor Operator of Neurology [facility] * Case Mgmt DC Plan - Mahin Yesenia - 03/13/2017 2:28 PM MATERIAL RECLAIMER Case Management Progress Note NAME:Naren Mayfield :[birth year] AGE: 51 y.o. ADMISSION DATE: 03/09/2017 DAYS ADMITTED: LOS: 4 days Todays Date: 03/13/2017 Plan REJI met with the neurosurgery and neuro-icu team regarding pt's POC and d/c plan. REJI was notified that pt was positive for amphetamine and benzos; according to the UDS completed upon admission. Interventions ? 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 She was very upset to hear this about her brother, but understood that REJI would be calling in a report. She [...] with the aunt Torito. SW did call [facility] to report the positive drug screen. Incident: [id number] ? Info or Referral ? Discharge Planning [...] Disposition ? Next Level Care Yesenia Stockton, [facility] [place] [place] *6246 * Procedures (Immed Post or Bedside) - Suad Weems, ROLO - 03/13/2017 6: 16 AM MATERIAL RECLAIMER Formatting of this note may be different from the original. [facility] Neuroscience ICU Transcranial Doppler Ultrasound Report Naren Mayfield [id number] 51 y.o. male Diagnosis:SAH Indication for TCD: [...] to the neurosurgical team Staff name: Suad WeemsROLO Date: 03/13/2017 Associated attestation - Deborah Lynn MD - 03/14/2017 1:39 PM MATERIAL RECLAIMER Formatting of this note may be different from the original. ATTESTATION: Increased left LR concerning for vasospasm. No evidence of right-sided vasospasm on this study. I have interpreted the results. Staff name: Deborah Lynn MD Date: 03/14/2017 * Case Mgmt DC Plan - Yesenia Stockton - 03/12/2017 4:33 PM MATERIAL RECLAIMER Case Management Progress Note NAME:Naren Mayfield :[birth year] [...] children; 6 of whom live in the [facility]. ? Info or Referral none at this [...] Diana Scott RN - 03/12/2017 2:08 PM MATERIAL RECLAIMER Case Management Progress Note NAME:Naren Mayfield :[birth year] AGE: 51 y.o. ADMISSION DATE: 03/09/2017 DAYS ADMITTED: LOS: 3 days Todays Date: 03/12/2017 Plan Ongoing DC planning - Outpatient dialysis Interventions ? Support ? Info or Referral ? Discharge Planning Discharge Planning: OP HD or PD * NCM confirmed with dialysis center that patient obtains his dialysis T-Th-Sat at [place], [place], ph [phone] / fax [phone]. * This center is not part of [facility]; NCM sent [facility] referral, facesheet, H&P, renal consult, and dialysis report as of 03/12/17 to [facility] via [facility] fax function. * NCM will update [facility] as needed as DC planning evolves; patient may require an inpatient setting at discharge. ? Medication Needs ? Financial ? Legal ? Other Disposition ? Discharge Preparation ? Expected Discharge Expected Discharge Date: 03/22/17 ? Discharge Disposition ? Next Level Care THANG Mack, synthetic filament spinner Nurse Money Order Clerk [phone] * Procedures (Immed Post or Bedside) - Shannen Wilson, ROLO-COST ESTIMATING CLERK - 03/12/2017 1: 10 AM MATERIAL RECLAIMER Formatting of this note may be different from the original. Neuro Critical Care Transcranial Doppler Ultrasound Report Naren Mayfield [id number] 51 y.o. male Diagnosis: SAH Indication for [...] the neurosurgical team Staff name: Shannen Wilson APRN-COST ESTIMATING CLERK Date: 03/12/2017 Associated attestation - Deborah Lynn MD - 03/12/2017 11:55 AM MATERIAL RECLAIMER Formatting of this note may be different from the original. ATTESTATION: No evidence of vasospasm on this study. I have interpreted the results. Staff name: Deborah Lynn MD Date: 03/12/2017 * Case Mgmt DC Plan - ClaudeVandana - 03/11/2017 2:38 PM MATERIAL RECLAIMER Formatting of this note may be different from the original. Case Management Admission Assessment NAME:Naren Mayfield :1965 AGE: 51 y.o. ADMISSION DATE: 03/09/2017 DAYS ADMITTED: LOS: 2 days Todays Date: 03/11/2017 Source of Information: Patient's elisabetheceSim Plan Plan: CM Assessment, Assist PRN with [...] admit, pt reportedly attending T// HD at [facility], and was primarily transporting himself to/from HD appts. Emergency Contact No emergency contact information on file. Primary family support is pt's sister, Laura Mayfield -cell. Pt currently resides with his sister at [address] [place] [address]. DPOA None on file Transportation Does the [...] Laura, at the above listed address in [place], [place]. Per Sim, pt is primarily independent, [...] Medicare (Part B ) Secondary Insurance: Medicaid ([facility] Medicaid) Additional Coverage: RX ? Source of Income Source Of Income: SSDI ? Financial Assistance Needed? None identified at time of assessment Current/Previous Services ? PCP No primary care provider on file. ? DME DME at home: Single Point Cane ? Home Health Home Health: No ? HD or PD Undergoing hemodialysis or peritoneal dialysis: Yes Hemodialysis or Peritoneal Dialysis: Hemodialysis Location: [facility] attending: Saturday, , Saturday Does patient [...] ? Outpatient Therapy PT: No OT: No [facility]: No ? SNF/NH SNF: No NH: No [...] medical status Radha Arce LMSW, [facility] [phone] * Anesthesia Post Op Day 1 - Carmen Novak SRNA - 03/11/2017 9:57 AM MATERIAL RECLAIMER Formatting of this note may be different from the original. Anesthesia Follow-Up Evaluation: Post-Procedure Day One Name: Naren Mayfield : 1965 Age: 51 y.o. 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 - Neuromonitoring, aneurysm clips, microscope, ICG, radiolucent reston Physical Assessment Height: 172.7 cm (68") Weight: 115.1 kg (253 lb 12 oz) Vital Signs (Last Filed in 24 hours) BP: 151/73 (03/10 1830) Temp: 37 C (98.6 F) (03/11 0400) Pulse: 77 (03/11 0819) Respirations: 27 PER MINUTE (03/11 819) SpO2: 98 % (03/11 819) O2 Delivery: Endotracheal Tube (Oral) (12/04 0600) SpO2 Pulse: 76 (03/11 600) Patient History [...] Carmen Novak SRNA - 03/11/2017 9:53 AM MATERIAL RECLAIMER Formatting of this note may be different [...] Faraz Hernandez MD - 03/11/2017 12:37 AM MATERIAL RECLAIMER OPERATIVE REPORT PATIENT NAME: Naren Mayfield PATIENT : 1965 MR#: [id number] DATE OF OPERATION: 03/11/2017 Surgeon(s) and Role: [...] He was placed in the radiolucent [place] head mixer and the previous dressing was removed. The [...] Prior to the galeal closure a 10 Tunisian CHET drain was placed in the wound [...] fashion. The patient was removed from the [place] head mixer and transferred to the [facility]. Patient was transferred to the neuro ICU in stable condition with improvement of his right dilated pupil which was now equal and reactive. ESTIMATED BLOOD LOSS: 200 ml. SPECIMENS REMOVED: * No specimens in log *. COMPLICATIONS: none. IMPLANTS: lyoplant. DRAINS: 10 F CHET drain to bulb suction. DISPOSITION: Taken to Neuro ICU in stable condition. . Faraz Hernandez MD 1163 Please call Neurosurgery Call Pager ([phone]) with any questions. Associated attestation - Edgar Bee MD - 04/05/2017 10:33 AM MATERIAL RECLAIMER Formatting of this note may be different from the original. ATTESTATION I performed this procedure with a resident. Staff name: Edgar Bee MD Date: 04/05/2017 * Procedures (Immed Post or Bedside) - Faraz Hernandez MD - 03/11/2017 12: 30 AM MATERIAL RECLAIMER Brief Operative Note Name: Naren Mayfield is [...] Defer to Anesthesia Surgeon(s) and Role: * Edgra Bee MD - Primary * Faraz Hernandez [...] ICU - stable Faraz Hernandez MD Pager [phone] Associated attestation - Edgar Bee MD - 04/05/2017 10:32 AM MATERIAL RECLAIMER Neurologic change prompted reimaging. Post-operative hemorrhage with mass effect , and perfusion imaging suggestive of risk of further neurologic change, therefore emergent reoperation to address these significant issues. * Operative Report (Direct Entry) - Edgar Bee MD - 03/10/2017 7:00 PM MATERIAL RECLAIMER Formatting of this note may be different from the original. OPERATIVE REPORT PATIENT NAME: Naren Mayfield PATIENT : 1965 MR#: [id number] DATE OF OPERATION: 03/10/2017 Surgeon(s) and Role: * Edgar Bee MD - Primary * Faraz Hernandez MD - Resident - Assisting PREOPERATIVE DIAGNOSIS: Ruptured Right MCA brain aneurysm POSTOPERATIVE DIAGNOSIS: Same. OPERATIVE PROCEDURE: 1. Procedure(s): REPAIR ANEURYSM CRANIOTOMY, ruptured complex right MCA aneurysm. Use of microscope for microdissection ANESTHESIA: Defer to Anesthesia INDICATIONS FOR OPERATIVE PROCEDURE: Naren Mayfield is a 51-year-old male who presented to [facility] after being found unresponsive while he is [...] areas for craniotomy were demarcated in the product advisor bur bit was used to fashion bur [...] tightened down at this juncture. A 10 Tunisian round CHET drain was placed in the [...] fashion the patient was removed from the [place] head mixer. The patient was transferred to the [facility] and transferred to the neuro ICU in [...] NeuroICU in stable condition. Faraz Hernandez MD 1760 Please call Neurosurgery Call Pager ([phone]) with any questions. ATTESTATION I performed this procedure with a resident. Staff name: Edgar Bee MD Date: 04/05/2017 * Procedures (Immed Post or Bedside) - Faraz Hernandez MD - 03/10/2017 7: 00 PM MATERIAL RECLAIMER Brief Operative Note Name: Naren Mayfield is a 51 y.o. male : 1965 DATE OF OPERATION: 03/10/2017 Date: 03/11/2017 Preoperative Dx: brain aneurysm Post-op Diagnosis * Brain aneurysm [I67.1] Procedure(s): REPAIR ANEURYSM CRANIOTOMY Anesthesia Type: Defer to Anesthesia Surgeon(s) and Role: * Edgar Bee MD - Primary * Faraz Hernandez MD - Resident - Assisting Findings: Right MCA aneurysm repair with 3 clips with evidence of filling of vessel on ICG runs. Estimated Blood Loss: 350ml. Specimen(s) Removed/Disposition: * No specimens in log * Complications: None Implants: KLS plating system, lyoplant Drains: Claude-Cedeño Drain: bulb suction Disposition: ICU - stable Faraz Hernandez MD Pager [phone] Patient was taken to Neuro ICU in stable condition and sign-off was given, unfortunately he required emergent return to OR for epidural hematoma, midline shift and evidence on vascular imaging of slow filling of one branch distribution. Associated attestation - Edgar Bee MD - 04/05/2017 10:31 AM MATERIAL RECLAIMER Neurologic change prompted reimaging. Post-operative hemorrhage with mass effect , and perfusion imaging suggestive of risk of further neurologic change, therefore emergent reoperation to address these significant issues. * Procedures (Immed Post or Bedside) - Lyly Rogel MD - 03/09/2017 5:54 PM MATERIAL RECLAIMER Neuro Interventional Immediate Post Procedure Note Date: 03/09/2017 Attending Physician: Lyly Rogel MD [employer] Developer(s): Ankita Lopez Cerebral Angiogram Time out performed: [...] Exam: Intubated, sedated Lyly Rogel MD Pager: [phone] * Procedures (Immed Post or Bedside) - Rosie Tanner APRN - 03/09/2017 4: 29 PM MATERIAL RECLAIMER Formatting of this note may be different [...] Description 05/03/2017 Anesthesia Hannah Acevedo, Event [address] [place] [address] [phone] 05/17/2017 Surgery Edgar Bee MD CRANIOPLASTY FOR RIGHT [address] S[place]ULL [place], [place] [address] [place] [address] FROM RIGHT ABDOMEN [phone] 05/17/2017 Procedure Pass 05/17/2017 Hospital Edgar Bee MD Brain aneurysm Encounter [address] [place] [address] [phone] Name Priority Associated Diagnoses Date/Time DELIVER & TRANSFUSE RED BLOOD CELLS STAT 03/10/2017 10:29 AM MATERIAL RECLAIMER (INTRAOP ONLY) TRANSFUSE RBC'S NON-BLEEDING PT Routine 03/13/2017 1:10 PM MATERIAL RECLAIMER TRANSFUSE RBC'S NON-BLEEDING PT Routine 03/13/2017 1:10 PM MATERIAL RECLAIMER as of this encounter Procedures Procedure Name Priority Date/Time Associated Diagnosis Comments ECG-SCAN 05/03/2017 Results for this 7:15 AM MATERIAL RECLAIMER procedure are in the results section. TELEMETRY STRIPS-SCAN 04/03/2017 Results for this 1:24 PM MATERIAL RECLAIMER procedure are in the results section. ECG-SCAN 04/03/2017 Results for this 1:19 PM MATERIAL RECLAIMER procedure are in the results section. ECG-SCAN 04/03/2017 Results for this 9:50 AM MATERIAL RECLAIMER procedure are in the results section. ECG-SCAN 04/03/2017 Results for this 9:50 AM MATERIAL RECLAIMER procedure are in the results section. CONSULT IV THERAPY TEAM Routine 03/19/2017 9:43 AM MATERIAL RECLAIMER ECG-SCAN 03/12/2017 Results for this 10:05 AM MATERIAL RECLAIMER procedure are in the results section. ECG-SCAN 03/12/2017 Results for this 10:05 AM MATERIAL RECLAIMER procedure are in the results section. ECG-SCAN 03/12/2017 Results for this 10:05 AM MATERIAL RECLAIMER procedure are in the results section. ECG-SCAN 03/12/2017 Results for this 10:05 AM MATERIAL RECLAIMER procedure are in the results section. REPAIR ANEURYSM 03/10/2017 Brain aneurysm CRANIOTOMY 8:15 PM MATERIAL RECLAIMER in this encounter Results * ECG-SCAN (05/03/2017 [...] Specimen Performing Laboratory [facility] [address] [place] [address] * HEMODIALYSIS INPATIENT (03/26/2017 1:10 PM) Narrative [...] K/UL Specimen Performing Laboratory Blood MAIN LAB [address] [place] [address] * BASIC METABOLIC PANEL (03/26/2017 4:20 AM) [...] Pharmacist for questions. Specimen Performing Laboratory Blood [facility] [address] [place] [address] * POC GLUCOSE (03/26/2017 3:24 AM) Component Value Ref Range Glucose, POC 114 (H) 70 - 100 MG/DL Specimen Performing Laboratory MAIN LAB [address] [place] [address] * POC GLUCOSE (03/25/2017 8:52 PM) Component Value Ref Range Glucose, POC 160 (H) 70 - 100 MG/DL Specimen Performing Laboratory MAIN LAB [address] [place] [address] * POC GLUCOSE (03/25/2017 5:13 PM) Component Value Ref Range Glucose, POC 135 (H) 70 - 100 MG/DL Specimen Performing Laboratory MAIN LAB [address] [place] [address] * POC GLUCOSE (03/25/2017 11:59 AM) Component Value Ref Range Glucose, POC 103 (H) 70 - 100 MG/DL Specimen Performing Laboratory MAIN LAB [address] [place] [address] * POC GLUCOSE (03/25/2017 7:30 AM) Component Value Ref Range Glucose, POC 85 70 - 100 MG/DL Specimen Performing Laboratory MAIN LAB [address] [place] [address] * CBC AND DIFF (03/25/2017 4:27 AM) [...] Specimen Performing Laboratory Blood [facility]IN [facility] [address] [place] [address] * BASIC METABOLIC PANEL (03/25/2017 4:27 AM) [...] Pharmacist for questions. Specimen Performing Laboratory Blood [facility] [address] [place], [place] [id number] * POC GLUCOSE (03/25/2017 1:51 AM) Component Value Ref Range Glucose, POC 90 70 - 100 MG/DL Specimen Performing Laboratory [facility] [address] [place], [place] [id number] * POC GLUCOSE (03/24/2017 8:52 PM) Component Value Ref Range Glucose, POC 160 (H) 70 - 100 MG/DL Specimen Performing Laboratory [facility] [address] [place], [place] [id number] * POC GLUCOSE (03/24/2017 4:55 PM) Component Value Ref Range Glucose, POC 105 (H) 70 - 100 MG/DL Specimen Performing Laboratory [facility] [address] [place], [place] [id number] * POC GLUCOSE (03/24/2017 11:42 AM) Component Value Ref Range Glucose, POC 158 (H) 70 - 100 MG/DL Specimen Performing Laboratory [facility] [address] [place], [place] [id number] * POC GLUCOSE (03/24/2017 7:52 AM) Component Value Ref Range Glucose, POC 102 (H) 70 - 100 MG/DL Specimen Performing Laboratory [facility] [address] [place], [place] [id number] * BASIC METABOLIC PANEL (03/24/2017 4:13 AM) [...] questions. Specimen Performing Laboratory Blood MAIN [facility] [address] [place] [address] * PHOSPHORUS (03/24/2017 4:13 AM) Component Value Ref Range Phosphorus 6.5 (H) 2.0 - 4.0 MG/DL Specimen Performing Laboratory Blood MAIN [facility] [address] [place] [address] 60[address] * CBC AND DIFF (03/24/2017 4:13 AM) [...] K/UL Specimen Performing Laboratory Blood [facility] [address] [place] [address] 450[address] * POC GLUCOSE (03/24/2017 3:55 AM) Component Value Ref Range Glucose, POC 97 70 - 100 MG/DL Specimen Performing Laboratory MAIN LAB [address] [place] [address] * POC GLUCOSE (03/23/2017 9:09 PM) Component Value Ref Range Glucose, POC 143 (H) 70 - 100 MG/DL Specimen Performing Laboratory MAIN LAB [address] [place] [address] 592[address] * POC GLUCOSE (03/23/2017 5:37 PM) Component Value Ref Range Glucose, POC 134 (H) 70 - 100 MG/DL Specimen Performing Laboratory MAIN LAB [address] [place] [address] 387[address] * HEMODIALYSIS INPATIENT (03/23/2017 3:24 PM) Rose Navarro RN 03/23/20173:24 PM Arrived at patient room C 5112 and treatment started at 1040 am. Vital signs stable. Patient tolerating treatment well. Treatment complete at 1444 pm. Vital signs stable. Gratz removed from L AV fistula and site healed. Report given to unit nurse. Left patient in room C 5112 in stable condition. * HEMODIALYSIS DATE (03/23/2017 3:24 PM) Rose Navarro RN 03/23/20173:24 PM Arrived at patient room C 5112 and treatment started at 1040 am. Vital signs stable. Patient tolerating treatment well. Treatment complete at 1444 pm. Vital signs stable. Gratz removed from L AV fistula and site healed. Report given to unit nurse. Left patient in room C 5112 in stable condition. * POC GLUCOSE (03/23/2017 1:10 PM) Component Value Ref Range Glucose, POC 146 (H) 70 - 100 MG/DL Specimen Performing Laboratory MAIN LAB [address] [place] [address] * POC GLUCOSE (03/23/2017 8:13 AM) Component Value Ref Range Glucose, POC 105 (H) 70 - 100 MG/DL Specimen Performing Laboratory MAIN LAB [address] [place] [address] * CBC AND DIFF (03/23/2017 4:39 AM) [...] K/UL Specimen Performing Laboratory Blood [facility]IN [facility] [address] [place] [address] * BLOOD GASES, ARTERIAL (03/23/2017 4:39 AM) Component Value Ref Range pH-Arterial 7.26 (L) 7.35 - 7.45 pCO2-Arterial 36 35 - 45 MMHG pO2-Arterial 74 (L) 80 - 100 MMHG Base Deficit-Arterial 10.6 MMOL/L O2 Sat-Arterial 92.5 (L) 95 - 99 % Omijegspdyj-RVG-Ogt 16.1 (L) 21 - 28 MMOL/L Specimen Performing Laboratory Blood, arterial - Blood MAIN LAB [address] [place] [address] * IONIZED CALCIUM (03/23/2017 4:39 AM) Component Value Ref Range Ionized Calcium 1.25 1.0 - 1.3 MMOL/L Specimen Performing Laboratory Blood MAIN LAB [address] [place] [address] * PHOSPHORUS (03/23/2017 4:39 AM) Component Value Ref Range Phosphorus 8.6 (H) 2.0 - 4.0 MG/DL Specimen Performing Laboratory Blood MAIN [facility] [address] [place], [place] [id number] * MAGNESIUM (03/23/2017 4:39 AM) Component Value Ref Range Magnesium 2.6 1.6 - 2.6 mg/dL Specimen Performing Laboratory Blood MAIN [facility] [address] [place] [address] * BASIC METABOLIC PANEL (03/23/2017 4:39 AM) [...] questions. Specimen Performing Laboratory Blood [facility] [address] [place] [address] * POC GLUCOSE (03/23/2017 4:23 AM) Component Value Ref Range Glucose, POC 90 70 - 100 MG/DL Specimen Performing Laboratory MAIN LAB [address] [place] [address] * POC GLUCOSE (03/22/2017 8:40 PM) Component Value Ref Range Glucose, POC 110 (H) 70 - 100 MG/DL Specimen Performing Laboratory MAIN LAB [address] [place] [address] 86[address] * POC GLUCOSE (03/22/2017 6:14 PM) Component Value Ref Range Glucose, POC 212 (H) 70 - 100 MG/DL Specimen Performing Laboratory MAIN LAB [address] [place] [address] * CT HEAD WO CONTRAST (03/22/2017 5:59 [...] Interface, Radiant Results - 03/23/2017 2:[address] HEAD HISTORY: Status post craniectomy, subarachnoid [...] 100 MG/DL Specimen Performing Laboratory MAIN LAB [address] [place] [address] 10491 * POC GLUCOSE (03/22/2017 8:07 AM) Component Value Ref Range Glucose, POC 128 (H) 70 - 100 MG/DL Specimen Performing Laboratory MAIN LAB [address] [place] [address] * CBC AND DIFF (03/22/2017 3:50 AM) [...] K/UL Specimen Performing Laboratory Blood [facility] [address] [place] [address] * BLOOD GASES, ARTERIAL (03/22/2017 3:50 AM) Component Value Ref Range pH-Arterial 7.36 7.35 - 7.45 pCO2-Arterial 36 35 - 45 MMHG pO2-Arterial 83 80 - 100 MMHG Base Deficit-Arterial 4.2 MMOL/L O2 Sat-Arterial 96.1 95 - 99 % Vvpkmumlnnk-OWE-Cuy 20.9 (L) 21 - 28 MMOL/L Specimen Performing Laboratory Blood, arterial - Blood MAIN LAB [address] [place] [address] * IONIZED CALCIUM (03/22/2017 3:50 AM) Component Value Ref Range Ionized Calcium 1.21 1.0 - 1.3 MMOL/L Specimen Performing Laboratory Blood [facility]IN [facility] [address] [place] [address] 48093 * PHOSPHORUS (03/22/2017 3:50 AM) Component Value Ref Range Phosphorus 6.3 (H) 2.0 - 4.0 MG/DL Specimen Performing Laboratory Blood [facility] [address] [place] [address] * MAGNESIUM (03/22/2017 3:50 AM) Component Value Ref Range Magnesium 2.4 1.6 - 2.6 mg/dL Specimen Performing Laboratory [facility] [address] [place] [address] 13720 * BASIC METABOLIC PANEL (03/22/2017 3:50 AM) [...] questions. Specimen Performing Laboratory Blood [facility] [address] [place] [address] 18758 * POC GLUCOSE (03/22/2017 3:38 AM) Component Value Ref Range Glucose, POC 155 (H) 70 - 100 MG/DL Specimen Performing Laboratory MAIN LAB [address] [place] [address] * POC GLUCOSE (03/21/2017 9:12 PM) Component Value Ref Range Glucose, POC 153 (H) 70 - 100 MG/DL Specimen Performing Laboratory MAIN LAB [address] [place] [address] 29945 * POC GLUCOSE (03/21/2017 6:09 PM) Component Value Ref Range Glucose, POC 163 (H) 70 - 100 MG/DL Specimen Performing Laboratory [facility] [address] [place] [address] * SWALLOW MOTION SERIES (03/21/2017 3:40 PM) [...] Interface, Radiant Results - 03/21/2017 4:44 PM MATERIAL RECLAIMER SWALLOW MOTION SERIES CLINICAL INDICATION: Male, 51 [...] 03/21/20171:02 PM 0630 Arrived in Pt's RM [id number] with portable R/O and diaysis machine/supply cart. ICU staff cleaning Pt from BM. [id number] R/O rinsing/cool down cycle in progress. Pt [...] 03/21/20171:02 PM 0630 Arrived in Pt's RM [id number] with portable R/O and diaysis machine/supply cart. ICU staff cleaning Pt from BM. [id number] R/O rinsing/cool down cycle in progress. Pt [...] 100 MG/DL Specimen Performing Laboratory MAIN LAB [address] [place] [address]286 * POC GLUCOSE (03/21/2017 8:05 AM) Component Value Ref Range Glucose, POC 169 (H) 70 - 100 MG/DL Specimen Performing Laboratory MAIN LAB [address] [place] [address] 68451 * POC GLUCOSE (03/21/2017 3:42 AM) Component Value Ref Range Glucose, POC 150 (H) 70 - 100 MG/DL Specimen Performing Laboratory MAIN LAB [address] [place] [address]34 * CBC AND DIFF (03/21/2017 3:40 AM) [...] K/UL Specimen Performing Laboratory [facility] [address] [place] [address] * BLOOD GASES, ARTERIAL (03/21/2017 3:40 AM) Component Value Ref Range pH-Arterial 7.31 (L) 7.35 - 7.45 pCO2-Arterial 33 (L) 35 - 45 MMHG pO2-Arterial 65 (L) 80 - 100 MMHG Base Deficit-Arterial 9.1 MMOL/L O2 Sat-Arterial 89.9 (L) 95 - 99 % Jpuzodnnvgt-DIV-Lly 17.0 (L) 21 - 28 MMOL/L Specimen Performing Laboratory Blood, arterial - Blood MAIN LAB [address] [place] [address] * IONIZED CALCIUM (03/21/2017 3:40 AM) Component Value Ref Range Ionized Calcium 1.23 1.0 - 1.3 MMOL/L Specimen Performing Laboratory Blood [facility]IN [facility] [address] [place] [address] * PHOSPHORUS (03/21/2017 3:40 AM) Component Value Ref Range Phosphorus 7.0 (H) 2.0 - 4.0 MG/DL Specimen Performing Laboratory Blood [facility]IN [facility] [address] [place] [address] * MAGNESIUM (03/21/2017 3:40 AM) Component Value Ref Range Magnesium 2.5 1.6 - 2.6 mg/dL Specimen Performing Laboratory Blood [facility]IN [facility] [address] [place] [address] * BASIC METABOLIC PANEL (03/21/2017 3:40 AM) [...] Pharmacist for questions. Specimen Performing Laboratory Blood [facility] [address] [place] [address] * POC GLUCOSE (03/20/2017 8:54 PM) Component Value Ref Range Glucose, POC 139 (H) 70 - 100 MG/DL Specimen Performing Laboratory [facility] [address] [place], [place] [id number] * POC GLUCOSE (03/20/2017 4:51 PM) Component Value Ref Range Glucose, POC 159 (H) 70 - 100 MG/DL Specimen Performing Laboratory [facility] [address] [place], [place] [id number] * POC GLUCOSE (03/20/2017 11:57 AM) Component Value Ref Range Glucose, POC 143 (H) 70 - 100 MG/DL Specimen Performing Laboratory [facility] [address] [place], [place] [id number] * POC GLUCOSE (03/20/2017 7:44 AM) Component Value Ref Range Glucose, POC 150 (H) 70 - 100 MG/DL Specimen Performing Laboratory [facility] [address] [place] [address] * CBC AND DIFF (03/20/2017 4:28 AM) [...] K/UL Specimen Performing Laboratory [facility] [address] [place] [address] * BLOOD GASES, ARTERIAL (03/20/2017 4:28 AM) Component Value Ref Range pH-Arterial 7.38 7.35 - 7.45 pCO2-Arterial 37 35 - 45 MMHG pO2-Arterial 85 80 - 100 MMHG Base Deficit-Arterial 2.3 MMOL/L O2 Sat-Arterial 96.1 95 - 99 % Uslzjamefjr-GNF-Gfh 22.4 21 - 28 MMOL/L Specimen Performing Laboratory Blood, arterial - Blood MAIN LAB [address] [place] [address] * IONIZED CALCIUM (03/20/2017 4:28 AM) Component Value Ref Range Ionized Calcium 1.19 1.0 - 1.3 MMOL/L Specimen Performing Laboratory Blood [facility] [address] [place] [address] * PHOSPHORUS (03/20/2017 4:28 AM) Component Value Ref Range Phosphorus 5.3 (H) 2.0 - 4.0 MG/DL Specimen Performing Laboratory Blood [facility]IN [facility] [address] [place] [address] * MAGNESIUM (03/20/2017 4:28 AM) Component Value Ref Range Magnesium 2.2 1.6 - 2.6 mg/dL Specimen Performing Laboratory Blood [facility]IN [facility] [address] [place] [address] * BASIC METABOLIC PANEL (03/20/2017 4:28 AM) [...] Performing Laboratory Blood [facility] [address] [place] [address] * POC GLUCOSE (03/20/2017 3:23 AM) Component Value Ref Range Glucose, POC 150 (H) 70 - 100 MG/DL Specimen Performing Laboratory [facility] [address] [place] [address] * POC GLUCOSE (03/19/2017 8:10 PM) Component Value Ref Range Glucose, POC 137 (H) 70 - 100 MG/DL Specimen Performing Laboratory [facility] [address] [place] [address] * ABDOMEN AP ONLY (03/19/2017 7:37 PM) [...] Interface, Radiant Results - 03/20/2017 7:53 AM MATERIAL RECLAIMER Portable AP abdomen CLINICAL HISTORY: Corpak verification. [...] Performing Laboratory [facility] [address] [place] [address] * ABDOMEN AP ONLY (03/19/2017 4:23 PM) [...] Interface, Radiant Results - 03/19/2017 4:39 PM MATERIAL RECLAIMER ABDOMEN AP ONLY Indication: Corpak placement. Comparison: [...] MG/DL Specimen Performing Laboratory MAIN LAB [address] [place] [address] * POC GLUCOSE (03/19/2017 8:26 AM) Component Value Ref Range Glucose, POC 163 (H) 70 - 100 MG/DL Specimen Performing Laboratory MAIN LAB [address] [place] [id number] * CBC AND DIFF (03/19/2017 4:18 AM) [...] Specimen Performing Laboratory [facility] [address] [place] [address] * BLOOD GASES, ARTERIAL (03/19/2017 4:18 AM) Component Value Ref Range pH-Arterial 7.34 (L) 7.35 - 7.45 pCO2-Arterial 37 35 - 45 MMHG pO2-Arterial 108 (H) 80 - 100 MMHG Base Deficit-Arterial 5.2 MMOL/L O2 Sat-Arterial 98.4 95 - 99 % Ffqwroltbhj-IKS-Vnv 20.1 (L) 21 - 28 MMOL/L Specimen Performing Laboratory Blood, arterial - Blood MAIN LAB [address] [place], [place] [id number] * IONIZED CALCIUM (03/19/2017 4:18 AM) Component Value Ref Range Ionized Calcium 1.18 1.0 - 1.3 MMOL/L Specimen Performing Laboratory Blood [facility]IN [facility] [address] [place], [place] [id number] * PHOSPHORUS (03/19/2017 4:18 AM) Component Value Ref Range Phosphorus 6.2 (H) 2.0 - 4.0 MG/DL Specimen Performing Laboratory Blood [facility] [address] [place], [place] [id number] * MAGNESIUM (03/19/2017 4:18 AM) Component Value Ref Range Magnesium 2.3 1.6 - 2.6 mg/dL Specimen Performing Laboratory Blood [facility] [address] [place], [place] [id number] * BASIC METABOLIC PANEL (03/19/2017 4:18 AM) [...] questions. Specimen Performing Laboratory [facility] [address] [place] [address] * POC GLUCOSE (03/19/2017 3:02 AM) Component Value Ref Range Glucose, POC 181 (H) 70 - 100 MG/DL Specimen Performing Laboratory [facility] [address] [place] [address] * US DOPPLER VENOUS BILATERAL (03/19/2017 1:15 [...] Interface, Radiant Results - 03/19/2017 6:45 AM MATERIAL RECLAIMER Bilateral lower extremity venous Doppler History: Immobility, [...] Laboratory [facility] [address] [place] [address] * HEMODIALYSIS INPATIENT (03/18/2017 7:03 PM) Narrative Mihai Aly RN 03/18/20177:03 PM 1225 Status: Active Ordering user: Nir Timmons MD 03/17/175 Ordering provider: Nir Timmons MD Authorized by: Nir Timmons MD Frequency: Once 03/17/17 1800 - 1 Occurrences Released by: Patti Garcia RN 03/17/17 9481 Questions: Date Hemodialysis to be performed: 03/18/2017 [...] Occurrences Released by: Patti Garcia RN 03/17/17 1687 Questions: Date Hemodialysis to be performed: 03/18/2017 [...] drops below 80. [address]50 Dr[address] Hartman paged. 1534 Dr Mitchell here at bedside. 1815 patient had episodes with agitation and restless during treatment. Completed dialysis. Took off 4 liters. Map remains over 80. Karen DAVE received report. * POC GLUCOSE (03/18/2017 6:05 PM) Component Value Ref Range Glucose, POC 121 (H) 70 - 100 MG/DL Specimen Performing Laboratory [facility] [address] [place] [address]347 * POC GLUCOSE (03/18/2017 11:44 AM) Component Value Ref Range Glucose, POC 157 (H) 70 - 100 MG/DL Specimen Performing Laboratory [facility] [address] [place] [address] 44741 * POC GLUCOSE (03/18/2017 10:03 AM) Component Value Ref Range Glucose, POC 194 (H) 70 - 100 MG/DL Specimen Performing Laboratory [facility] [address] [place] [address] 31424 * POC GLUCOSE (03/18/2017 3:41 AM) Component Value Ref Range Glucose, POC 162 (H) 70 - 100 MG/DL Specimen Performing Laboratory [facility] [address] [place] [address] 53681 * CBC AND DIFF (03/18/2017 3:40 AM) [...] - 0.20 K/UL Specimen Performing Laboratory Blood [facility] [address] [place] [address] * BLOOD GASES, ARTERIAL (03/18/2017 3:40 AM) Component Value Ref Range pH-Arterial 7.28 (L) 7.35 - 7.45 pCO2-Arterial 33 (L) 35 - 45 MMHG pO2-Arterial 96 80 - 100 MMHG Base Deficit-Arterial 10.4 MMOL/L O2 Sat-Arterial 97.0 95 - 99 % Fgemzvpslyi-NDF-Vpb 16.1 (L) 21 - 28 MMOL/L Specimen Performing Laboratory Blood, arterial - Blood [facility] [address] [place], [place] [id number] * IONIZED CALCIUM (03/18/2017 3:40 AM) Component Value Ref Range Ionized Calcium 1.22 1.0 - 1.3 MMOL/L Specimen Performing Laboratory Blood [facility] [address] [place], [place] [id number] * PHOSPHORUS (03/18/2017 3:40 AM) Component Value Ref Range Phosphorus 9.2 (H) 2.0 - 4.0 MG/DL Specimen Performing Laboratory Blood [facility] [address] [place], [place] [id number] * MAGNESIUM (03/18/2017 3:40 AM) Component Value Ref Range Magnesium 2.6 1.6 - 2.6 mg/dL Specimen Performing Laboratory [facility] [address] [place], [place] [id number] * BASIC METABOLIC PANEL (03/18/2017 3:40 AM) [...] Performing Laboratory [facility] [address] [place] [address] * ABDOMEN AP ONLY (03/17/2017 9:28 PM) [...] Interface, Radiant Results - 03/18/2017 8:23 AM MATERIAL RECLAIMER Corpak placement. Technique: Single portable AP supine [...] 100 MG/DL Specimen Performing Laboratory MAIN LAB [address] [place] [address] * POC GLUCOSE (03/17/2017 4:51 PM) Component Value Ref Range Glucose, POC 153 (H) 70 - 100 MG/DL Specimen Performing Laboratory MAIN LAB [address] [place] [address] * POC GLUCOSE (03/17/2017 12:40 PM) Component Value Ref Range Glucose, POC 185 (H) 70 - 100 MG/DL Specimen Performing Laboratory MAIN LAB [address] [place] [address] * POC GLUCOSE (03/17/2017 9:07 AM) Component Value Ref Range Glucose, POC 147 (H) 70 - 100 MG/DL Specimen Performing Laboratory [facility] [address] [place] [address] * CT CHEST W CONTRAST (03/17/2017 8:33 [...] Interface, Radiant Results - 03/17/2017 12:[address] Chest Clinical Indication: Male, 51 years [...] 1.0 - 1.3 MMOL/L Specimen Performing Laboratory [facility] [address] [place] [address] * POC SODIUM (03/17/2017 5:29 AM) Component Value Ref Range Sodium-POC 135 (L) 137 - 147 MMOL/L Specimen Performing Laboratory MAIN LAB [address] [place] [address] * POC POTASSIUM (03/17/2017 5:29 AM) Component Value Ref Range Potassium-POC 3.8 3.5 - 5.1 MMOL/L Specimen Performing Laboratory MAIN LAB [address] [place], [place] [id number] * POC HEMATOCRIT (03/17/2017 5:29 AM) Component Value Ref Range Hemoglobin POC 9.2 (L) 13.5 - 16.5 GM/DL Hematocrit POC 27.0 (L) 40 - 50 % Specimen Performing Laboratory MAIN LAB [address] [place] [address] * POC BLOOD GAS ARTERIAL (03/17/2017 5:29 AM) Component Value Ref Range PH-ART-POC 7.35 7.35 - 7.45 QOU9-RVZ-ASC 40 35 - 45 MMHG PO2-ART-POC 90 80 - 100 MMHG Base Def-ART-POC 4.0 MMOL/L O2 Sat-ART-POC 97.0 95 - 99 % Qsamnqtnrvw-PFR-IXJ 22.0 21 - 28 MMOL/L Specimen Performing Laboratory MAIN LAB [address] [place] [address] * BLOOD GASES, ARTERIAL (03/17/2017 5:27 AM) Component Value Ref Range pH-Arterial 7.32 (L) 7.35 - 7.45 pCO2-Arterial 41 35 - 45 MMHG pO2-Arterial 108 (H) 80 - 100 MMHG Base Deficit-Arterial 4.7 MMOL/L O2 Sat-Arterial 98.0 95 - 99 % Pxrtwwrujkl-VEF-Ffn 20.5 (L) 21 - 28 MMOL/L Specimen Performing Laboratory Blood, arterial - Blood MAIN LAB [address] [place] [address] * LIPASE (03/17/2017 4:13 AM) Component Value Ref Range Lipase 45 11 - 82 U/L Specimen Performing Laboratory MAIN LAB [address] [place], [place] [id number] * AMYLASE (03/17/2017 4:13 AM) Component Value Ref Range Amylase 86 24 - 100 U/L Specimen Performing Laboratory MAIN LAB [address] [place] [address] * CBC AND DIFF (03/17/2017 4:13 AM) [...] K/UL Specimen Performing Laboratory [facility] MAIN LAB [address] [place], [place] [id number] * IONIZED CALCIUM (03/17/2017 4:13 AM) Component Value Ref Range Ionized Calcium 1.17 1.0 - 1.3 MMOL/L Specimen Performing Laboratory Blood MAIN LAB [address] [place] [address] 280[address] * PHOSPHORUS (03/17/2017 4:13 AM) Component Value Ref Range Phosphorus 6.6 (H) 2.0 - 4.0 MG/DL Specimen Performing Laboratory Blood MAIN LAB [address] [place] [address] * MAGNESIUM (03/17/2017 4:13 AM) Component Value Ref Range Magnesium 2.4Comment: SLT HEMOLYSIS 1.6 - 2.6 mg/dL Specimen Performing Laboratory Blood MAIN LAB [address] [place] [address]141 * BASIC METABOLIC PANEL (03/17/2017 4:13 AM) [...] questions. Specimen Performing Laboratory Blood MAIN [facility] [address] [place] [address] * POC GLUCOSE (03/17/2017 4:00 AM) Component Value Ref Range Glucose, POC 142 (H) 70 - 100 MG/DL Specimen Performing Laboratory MAIN LAB [address] [place] [address] * POC GLUCOSE (03/16/2017 10:18 PM) Component Value Ref Range Glucose, POC 147 (H) 70 - 100 MG/DL Specimen Performing Laboratory MAIN LAB [address] [place] [address] * CHEST SINGLE VIEW (03/16/2017 10:10 PM) [...] Interface, Radiant Results - 03/17/2017 11:49 AM MATERIAL RECLAIMER CHEST SINGLE VIEW Clinical Indication: Male, 51 [...] Interface, Radiant Results - 03/17/2017 11:49 AM MATERIAL RECLAIMER CHEST SINGLE VIEW Clinical Indication: Male, 51 [...] O2 Sat-Arterial 95.1 95 - 99 % Jbqqgzpmvfl-SGD-Jzy 23.4 21 - 28 MMOL/L Specimen Performing Laboratory Blood, arterial - Blood MAIN LAB [address] [place] [address] * HEMODIALYSIS INPATIENT (03/16/2017 6:13 PM) Narrative [...] bed. 1530 B/P in the 200s systolic. buckram sewer giving meds. UF increased to 3.5 liters [...] liters. Potassium bath was 2K+. 1430 Dr. Puala reveles. 1435 Family in room visiting. 1515 Patient has been consistent with putting legs on the side of the bed. 1530 B/P in the 200s systolic. buckram sewer giving meds. UF increased to 3.[address] Cardona. 1615 BP remains above 200 systolic. ICU nurse addressing B/P. 1745 Dialysis complete. UF total was 4 liters. Phi DAVE given report. * POC GLUCOSE (03/16/2017 5:18 PM) Component Value Ref Range Glucose, POC 127 (H) 70 - 100 MG/DL Specimen Performing Laboratory MAIN LAB [address] [place] [address] * CBC AND DIFF (03/16/2017 2:10 PM) [...] K/UL Specimen Performing Laboratory Blood MAIN LAB [address] [place] [address] * POC GLUCOSE (03/16/2017 11:56 AM) Component Value Ref Range Glucose, POC 193 (H) 70 - 100 MG/DL Specimen Performing Laboratory MAIN LAB [address] [place] [address] 266[address] * BETA HYDROXYBUTYRATE (KETONES) (03/16/2017 11:20 AM) Component Value Ref Range Beta Hydroxybutyrate 0.1 <0.3 MMOL/L Comment: Beta hydroxybutyrate (BOHB) is the most abundant ketone (78%), followed by acetoacetate (20%) and acetone (2%). Measurement BOHB is recommended to assess ketones in DKA. Expected BOHB Results for DKA: Initial presentation high/increasing During treatment decreasing Resolved decreasing/normal Specimen Performing Laboratory Blood MAIN LAB [address] [place] [address] * LACTIC ACID(LACTATE) (03/16/2017 11:20 AM) Component Value Ref Range Lactic Acid 0.8 0.5 - 2.0 MMOL/L Specimen Performing Laboratory Blood MAIN LAB [address] [place] [address] 67[address] * POC GLUCOSE (03/16/2017 7:59 AM) Component Value Ref Range Glucose, POC 191 (H) 70 - 100 MG/DL Specimen Performing Laboratory MAIN LAB [address] [place] [address] 20738 * CHEST SINGLE VIEW (03/16/2017 6:32 AM) [...] however, the tip is not in the rubxd-io-nfzj. The heart size remains enlarged. No pulmonary vascular congestion is identified. There is been interval increased left pleural effusion and left basilar consolidation. The right lung remains clear focal consolidation or pleural effusion. No pneumothorax is identified. Procedure Note Interface, Radiant Results - 03/16/2017 11:22 AM MATERIAL RECLAIMER Exam: CHEST SINGLE VIEW History: left sided pleural effusion Comparison: Portable chest dated 03/14/2017.. Findings: The endotracheal tube and esophageal temperature probe have been removed. An enteric tube is again seen and can be followed below the diaphragm, however, the tip is not in the sjwio-lh-zlye. The heart size remains enlarged. No pulmonary [...] O2 Sat-Arterial 96.3 95 - 99 % Fxriitopcgp-KGW-Ijo 16.5 (L) 21 - 28 MMOL/L Specimen Performing Laboratory Blood, arterial - [place] [address] [place] [address] * IONIZED CALCIUM (03/16/2017 5:07 AM) Component Value Ref Range Ionized Calcium 1.14 1.0 - 1.3 MMOL/L Specimen Performing Laboratory Blood MAIN LAB [address] [place] [address] 35935 * PHOSPHORUS (03/16/2017 5:07 AM) Component Value Ref Range Phosphorus 9.4 (H) 2.0 - 4.0 MG/DL Specimen Performing Laboratory Blood MAIN LAB [address] [place] [address] 07[address] * MAGNESIUM (03/16/2017 5:07 AM) Component Value Ref Range Magnesium 2.4 1.6 - 2.6 mg/dL Specimen Performing Laboratory Blood MAIN LAB [address] [place] [address]1985 * BASIC METABOLIC PANEL (03/16/2017 5:07 AM) [...] questions. Specimen Performing Laboratory Blood MAIN LAB [address] [place] [address] 6[address] * POC GLUCOSE (03/16/2017 4:57 AM) Component Value Ref Range Glucose, POC 162 (H) 70 - 100 MG/DL Specimen Performing Laboratory MAIN LAB [address] [place] [address] 467[address] * POC GLUCOSE (03/15/2017 8:24 PM) Component Value Ref Range Glucose, POC 182 (H) 70 - 100 MG/DL Specimen Performing Laboratory MAIN LAB [address] [place] [address] 9[address] * POC GLUCOSE (03/15/2017 5:26 PM) Component Value Ref Range Glucose, POC 163 (H) 70 - 100 MG/DL Specimen Performing Laboratory MAIN LAB [address] [place] [address] 46[address] * POC GLUCOSE (03/15/2017 12:10 PM) Component Value Ref Range Glucose, POC 162 (H) 70 - 100 MG/DL Specimen Performing Laboratory MAIN LAB [address] [place] [address] 24089 * POC GLUCOSE (03/15/2017 8:19 AM) Component Value Ref Range Glucose, POC 163 (H) 70 - 100 MG/DL Specimen Performing Laboratory MAIN LAB [address] [place] [address] 23561 * BLOOD GASES, ARTERIAL (03/15/2017 3:30 AM) Component Value Ref Range pH-Arterial 7.32 (L) 7.35 - 7.45 pCO2-Arterial 44 35 - 45 MMHG pO2-Arterial 145 (H) 80 - 100 MMHG Base Deficit-Arterial 3.7 MMOL/L O2 Sat-Arterial 99.5 (H) 95 - 99 % Pcxnisebotl-WDB-Sbl 21.3 21 - 28 MMOL/L Specimen Performing Laboratory Blood, arterial - Blood [facility] [address] [place] [address] 22556 * IONIZED CALCIUM (03/15/2017 3:30 AM) Component Value Ref Range Ionized Calcium 1.16 1.0 - 1.3 MMOL/L Specimen Performing Laboratory Blood MAIN LAB [address] [place] [address] 03321 * PHOSPHORUS (03/15/2017 3:30 AM) Component Value Ref Range Phosphorus 7.5 (H) 2.0 - 4.0 MG/DL Specimen Performing Laboratory Blood MAIN LAB [address] [place] [address] 64797 * MAGNESIUM (03/15/2017 3:30 AM) Component Value Ref Range Magnesium 2.2 1.6 - 2.6 mg/dL Specimen Performing Laboratory Blood MAIN LAB [address] [place] [address] 12221 * BASIC METABOLIC PANEL (03/15/2017 3:30 AM) [...] questions. Specimen Performing Laboratory Blood MAIN LAB [address] [place] [address] * POC GLUCOSE (03/15/2017 2:19 AM) Component Value Ref Range Glucose, POC 193 (H) 70 - 100 MG/DL Specimen Performing Laboratory MAIN LAB [address] [place] [address] * POC GLUCOSE (03/14/2017 8:04 PM) Component Value Ref Range Glucose, POC 172 (H) 70 - 100 MG/DL Specimen Performing Laboratory MAIN LAB [address] [place] [address] * POC GLUCOSE (03/14/2017 5:11 PM) Component Value Ref Range Glucose, POC 206 (H) 70 - 100 MG/DL Specimen Performing Laboratory MAIN LAB [address] [place] [address] 81662 * CHEST SINGLE VIEW (03/14/2017 5:08 PM) [...] the diaphragm and projects out of the txpls-cd-ybuh. Metallic wire is noted with tip overlying the tiara which may represent a guidewire. Persistent cardiomegaly without pulmonary venous congestion. Improvement in moderate left pleural effusion with adjacent left lung base consolidation. No pneumothorax. Procedure Note Interface, Radiant Results - 03/16/2017 12:03 AM MATERIAL RECLAIMER Procedure: CHEST SINGLE VIEW Clinical Indication: Status post thoracentesis. Comparison: Chest radiograph March 12, 2017 FINDINGS: Single portable semiupright AP chest radiograph was obtained. Endotracheal tube remains in similar position. Exchange of gastric tube for enteric tube which courses below the diaphragm and projects out of the ygbiq-nw-oghq. Metallic wire is noted with tip overlying [...] 0.7 % Specimen Performing Laboratory MAIN LAB [address] [place] [address] * CULTURE-TB (AFB) (03/14/2017 4:30 PM) Component Value Ref Range Battery Name AFB CULTURE Specimen Description PLEURAL FLUID L pleural space Special Requests NONE Culture NO GROWTH OF MYCOBACTERIA AT 6 WEEKS Report Status FINAL 04/29/2017 Specimen Performing Laboratory Pleural Fluid MAIN LAB [address] [place] [address] * CULTURE-FUNGAL,OTHER (03/14/2017 4:30 PM) Component Value Ref Range Battery Name FUNGUS CULTURE Specimen Description PLEURAL FLUID L pleural space Special Requests NONE Culture NO GROWTH OF FUNGUS AT 4 WEEKS Report Status FINAL 04/15/2017 Specimen Performing Laboratory Pleural Fluid MAIN LAB [address] [place] [address]133 * GRAM STAIN (03/14/2017 4:30 PM) Component Value Ref Range Battery Name GRAM STAIN Specimen Description PLEURAL FLUID L pleural space Special Requests NONE Gram Stain RARE NEUTROPHILS MANY RBC'S NO ORGANISMS SEEN Report Status FINAL 03/15/2017 Specimen Performing Laboratory Pleural Fluid MAIN LAB [address] [place], [place] [id number] * CULTURE-WOUND/TISSUE/FLUID(AEROBIC ONLY)W/SENSITIVITY (03/14/2017 4:30 PM) Component Value Ref Range Battery Name ROUTINE CULTURE Specimen Description PLEURAL FLUID L pleural space Special Requests NONE Direct Gram Stain RARE NEUTROPHILS MANY RBC'S NO ORGANISMS SEEN Culture NO GROWTH 5 DAYS Report Status FINAL 03/19/2017 Specimen Performing Laboratory Pleural Fluid MAIN LAB [address] [place] [address] * PLEURAL FLUID ALBUMIN (03/14/2017 4:30 PM) Component Value Ref Range Pleural Fluid Albumin 2.3Comment: Pleural fluid albumin gradient >1.2 g/ dL g/dL is suggestive of an exudate Specimen Performing Laboratory Pleural Fluid MAIN LAB [address] [place] [address] * PLEURAL FLUID TOTAL BILIRUBIN (03/14/2017 4:30 PM) Component Value Ref Range Pleural Fluid Total 2.4 mg/dL Bilirubin Comment: Pleural fluid to serum bilirubin ratio of 0.6 suggests the presence of an exudate Specimen Performing Laboratory Pleural Fluid MAIN LAB [address] [place], [place] [id number] * PLEURAL FLUID GLUCOSE (03/14/2017 4:30 PM) Component Value Ref Range Pleural Fluid Glucose 160 (H) 70 - 100 mg/dL Comment: Glucose <60 mg/dL associated with parapneumonic effusion, tuberculosis, malignancy, empyema, and rheumatoid disease Specimen Performing Laboratory Pleural Fluid MAIN LAB [address] [place], [place] [id number] * PLEURAL FLUID LACTATE DEHYDROGENASE (03/14/2017 4:30 PM) Component Value Ref Range Pleural Fluid Lactate 255 (H)Comment: Higher levels suggestive of 67 - 140 U/L Dehydrogenase exudate Specimen Performing Laboratory Pleural Fluid MAIN LAB [address] [place] [address] 6[address]24 * PLEURAL FLUID PH (03/14/2017 4:30 PM) Component Value Ref Range Pleural Fluid Ph 7.70 (H) 7.60 - 7.66 Specimen Performing Laboratory Pleural Fluid MAIN LAB [address] [place] [address] 31515 * PLEURAL FLUID TRIGLYCERIDES (03/14/2017 4:30 PM) Component Value Ref Range Pleural Fluid 20 mg/dL Triglycerides Comment: Triglycerides >110 mg/dL is suggestive of a chylothorax. Triglycerides <50 mg/dL is suggestive of pseudochylothorax. Specimen Performing Laboratory Pleural Fluid MAIN LAB [address] [place] [address] 39975 * PLEURAL FLUID TOTAL PROTEIN (03/14/2017 4:30 PM) Component Value Ref Range Pleural Fluid Total 3.8 (H)Comment: Serum to pleural fluid protein <1.1 g/ dL Protein gradient >3.1 g/dL is suggestive of an exudate Specimen Performing Laboratory Pleural Fluid MAIN LAB [address] [place], [place] [id number] * CELL COUNT W/DIFF-FLUIDS (03/14/2017 4:30 PM) [...] Laboratory Fluid - Pleural Fluid MAIN LAB [address] [place] [address] 00773 * POC GLUCOSE (03/14/2017 12:25 PM) Component Value Ref Range Glucose, POC 161 (H) 70 - 100 MG/DL Specimen Performing Laboratory MAIN LAB [address] [place] [address] 33755 * HEMODIALYSIS INPATIENT (03/14/2017 10:41 AM) Rose Covarrubias RN 03/14/2017 10:41 AM campus police officer in patient's room. Patient sedated and on [...] AM) Rose Covarrubias RN 03/14/2017 10:41 AM campus police officer in patient's room. Patient sedated and on [...] returned manually to patient. Machine exchanged. * NON-LEAN MANUFACTURING SPECIALIST CYTOLOGY (BODY FLUIDS/TISSUE) (03/14/2017 8:49 AM) Component Value Ref Range Cytology [facility] [email or web address] Department of Pathology and Laboratory Medicine [address] [place] [address] Surgical Pathology Office: [phone] CYTOLOGY REPORT NAME: NAREN MAYFIELD CYTOLOGY #: [id number] MR #: [id number] ALT ID #: BILLING #: [id number] LOCATION: [facility] DATE OF PROCEDURE: 03/14/2017 AGE: 51 SEX: [...] 70 - 100 MG/DL Specimen Performing Laboratory [facility] [address] [place] [address] * BLOOD GASES, ARTERIAL (03/14/2017 5:00 AM) Component Value Ref Range pH-Arterial 7.26 (L) 7.35 - 7.45 pCO2-Arterial 41 35 - 45 MMHG pO2-Arterial 109 (H) 80 - 100 MMHG Base Deficit-Arterial 8.2 MMOL/L O2 Sat-Arterial 98.0 95 - 99 % Wsxzqvjquti-SPL-Kuh 17.8 (L) 21 - 28 MMOL/L Specimen Performing Laboratory Blood, arterial - Blood [facility] [address] [place] [address] * IONIZED CALCIUM (03/14/2017 5:00 AM) Component Value Ref Range Ionized Calcium 1.11 1.0 - 1.3 MMOL/L Specimen Performing Laboratory Blood [facility] [address] [place] [address] * LDH-LACTATE DEHYDROGENASE (03/14/2017 3:15 AM) Component Value Ref Range Lactate Dehydrogenase 225 (H) 100 - 210 U/L Specimen Performing Laboratory MAIN LAB [address] [place] [address] * CHEM 7 ADD ON (03/14/2017 3:15 AM) Component Value Ref Range Total Protein 7.2 6.0 - 8.0 G/DL Total Bilirubin 0.5 0.3 - 1.2 MG/DL Albumin 3.6 3.5 - 5.0 G/DL Alk Phosphatase 71 25 - 110 U/L AST (SGOT) 21 7 - 40 U/L ALT (SGPT) 3 (L) 7 - 56 U/L Specimen Performing Laboratory MAIN LAB [address] [place] [address] 26876 * LIPASE (03/14/2017 3:15 AM) Component Value Ref Range Lipase 26 11 - 82 U/L Specimen Performing Laboratory MAIN LAB [address] [place] [address] 49795 * AMYLASE (03/14/2017 3:15 AM) Component Value Ref Range Amylase 115 (H) 24 - 100 U/L Specimen Performing Laboratory MAIN LAB [address] [place] [address] 42101 * LIPID PROFILE (03/14/2017 3:15 AM) Component [...] 130 mg/dL. Specimen Performing Laboratory MAIN LAB [address] [place] [address] 79695 * PHOSPHORUS (03/14/2017 3:15 AM) Component Value Ref Range Phosphorus 9.1 (H) 2.0 - 4.0 MG/DL Specimen Performing Laboratory Blood [facility] [address] [place] [address] 04203 * MAGNESIUM (03/14/2017 3:15 AM) Component Value Ref Range Magnesium 2.7 (H) 1.6 - 2.6 mg/dL Specimen Performing Laboratory Blood MAIN LAB [address] [place] [address] 70736 * BASIC METABOLIC PANEL (03/14/2017 3:15 AM) [...] questions. Specimen Performing Laboratory Blood MAIN LAB [address] [place] [address] 01931 * OSMOLALITY (03/14/2017 3:15 AM) Component Value Ref Range Osmolality 312 (H) 280 - 307 MOSMOL/KG Specimen Performing Laboratory Blood MAIN LAB [address] [place] [address] 59727 * FIBRINOGEN (03/14/2017 3:15 AM) Component Value Ref Range Fibrinogen 693 (H) 200 - 400 MG/DL Specimen Performing Laboratory Blood MAIN LAB [address] [place], [place] [id number] * CBC AND DIFF (03/14/2017 3:15 AM) [...] - 0.20 K/UL Specimen Performing Laboratory Blood [facility] [address] [place] [address] 58843 * POC GLUCOSE (03/14/2017 3:11 AM) Component Value Ref Range Glucose, POC 82 70 - 100 MG/DL Specimen Performing Laboratory [facility] [address] [place] [address] 32440 * POC GLUCOSE (03/13/2017 9:40 PM) Component Value Ref Range Glucose, POC 182 (H) 70 - 100 MG/DL Specimen Performing Laboratory [facility] [address] [place] [address] 25199 * POC GLUCOSE (03/13/2017 4:45 PM) Component Value Ref Range Glucose, POC 152 (H) 70 - 100 MG/DL Specimen Performing Laboratory [facility] [address] [place] [address] 15089 * CBC (03/13/2017 4:25 PM) Component Value [...] - 11 FL Specimen Performing Laboratory Blood [facility] [address] [place] [address] 76149 * TEG WITH KAOLIN (03/13/2017 4:25 PM) [...] 70 - 100 MG/DL Specimen Performing Laboratory [facility] [address] [place] [address] * CT ABD/PELV WO CONTRAST (03/13/2017 12:27 [...] Interface, Radiant Results - 03/13/2017 4:[address] ABDOMEN AND PELVIS Clinical Indication: Male, [...] Screen NEG Electronic Crossmatch YES Unit Number [id number] Blood Component Type RBC,ADSOL,LEUKO REDUCED Unit Division 0 Status OF Unit TRANSFUSED Transfusion Status OK TO TRANSFUSE Crossmatch Result COMPATIBLE,ELECTRONIC Specimen Performing Laboratory Blood MAIN LAB [address] [place] [address] 98283 * C DIFFICILE BY PCR (03/13/2017 10:30 AM) Component Value Ref Range Battery Name C DIFFICILE PCR Specimen Description FECES Special Requests NONE C. Difficile Toxin B PCR NEGATIVE-wait 7 days to repeat test Report Status FINAL 03/14/2017 Specimen Performing Laboratory Feces MAIN LAB [address] [place] [address] * POC GLUCOSE (03/13/2017 10:24 AM) Component Value Ref Range Glucose, POC 152 (H) 70 - 100 MG/DL Specimen Performing Laboratory MAIN LAB [address] [place] [address] * CT BRAIN PERF (03/13/2017 9:04 AM) [...] Interface, Radiant Results - 03/13/2017 9:44 AM MATERIAL RECLAIMER EXAM: CTA HEAD AND CT PERFUSION HISTORY: [...] Interface, Radiant Results - 03/13/2017 9:44 AM MATERIAL RECLAIMER EXAM: CTA HEAD AND CT PERFUSION HISTORY: [...] O2 Sat-Arterial 98.7 95 - 99 % Hrlcxxvaeaq-VBJ-Yax 21.9 21 - 28 MMOL/L Specimen Performing Laboratory Blood, arterial - Blood MAIN LAB [address] [place] [address] * BLOOD GASES, ARTERIAL (03/13/2017 3:44 AM) Component Value Ref Range pH-Arterial 7.37 7.35 - 7.45 pCO2-Arterial 42 35 - 45 MMHG pO2-Arterial 99 80 - 100 MMHG Base Deficit-Arterial 1.1 MMOL/L O2 Sat-Arterial 97.3 95 - 99 % Zkhflysmjfn-JTI-Zoa 23.5 21 - 28 MMOL/L Specimen Performing Laboratory Blood, arterial - Blood MAIN LAB [address] [place] [address] * IONIZED CALCIUM (03/13/2017 3:44 AM) Component Value Ref Range Ionized Calcium 1.11 1.0 - 1.3 MMOL/L Specimen Performing Laboratory Blood MAIN LAB [address] [place] [address] * PHOSPHORUS (03/13/2017 3:44 AM) Component Value Ref Range Phosphorus 6.6 (H) 2.0 - 4.0 MG/DL Specimen Performing Laboratory Blood MAIN LAB [address] [place] [address] * MAGNESIUM (03/13/2017 3:44 AM) Component Value Ref Range Magnesium 2.2 1.6 - 2.6 mg/dL Specimen Performing Laboratory Blood MAIN LAB [address] [place] [address] * CBC AND DIFF (03/13/2017 3:44 AM) [...] Specimen Performing Laboratory Blood MAIN LAB [address] [place] [address] * BASIC METABOLIC PANEL (03/13/2017 3:44 AM) [...] Specimen Performing Laboratory Blood MAIN LAB [address] [place] [address] * POC GLUCOSE (03/13/2017 3:42 AM) Component Value Ref Range Glucose, POC 129 (H) 70 - 100 MG/DL Specimen Performing Laboratory MAIN LAB [address] [place] [address] * POC GLUCOSE (03/12/2017 11:25 PM) Component Value Ref Range Glucose, POC 197 (H) 70 - 100 MG/DL Specimen Performing Laboratory [facility] [address] [place] [address] * POC GLUCOSE (03/12/2017 5:14 PM) Component Value Ref Range Glucose, POC 139 (H) 70 - 100 MG/DL Specimen Performing Laboratory [facility]IN [facility] [address] [place] [address] * HEMODIALYSIS INPATIENT (03/12/2017 4:52 PM) Narrative [...] updated on pt. Pt remains in room [id number] at this time. * HEMODIALYSIS DATE (03/12/2017 [...] updated on pt. Pt remains in room [id number] at this time. * TRANSFUSE RBC'S NON-BLEEDING PT (03/12/2017 1:48 PM) Specimen Performing Laboratory Blood * TRANSFUSE RBC'S NON-BLEEDING PT (03/12/2017 1:48 PM) Specimen Performing Laboratory Blood * POC GLUCOSE (03/12/2017 11:49 AM) Component Value Ref Range Glucose, POC 165 (H) 70 - 100 MG/DL Specimen Performing Laboratory [facility] [address] [place] [address] * ABDOMEN AP ONLY (03/12/2017 11:08 AM) [...] Interface, Radiant Results - 03/12/2017 11:36 AM MATERIAL RECLAIMER Supine abdomen CLINICAL HISTORY: Post feeding tube [...] Sat-Arterial 92.3 (L) 95 - 99 % Txwwltezrly-JWC-Fqm 20.9 (L) 21 - 28 MMOL/L Specimen Performing Laboratory Blood, arterial - Blood [facility] [address] [place] [address] * ECG-SCAN (03/12/2017 10:05 AM) Narrative Ordered [...] level <7%. Specimen Performing Laboratory MAIN LAB [address] [place] [address] * BLOOD GASES, ARTERIAL (03/12/2017 3:44 AM) Component Value Ref Range pH-Arterial 7.35 7.35 - 7.45 pCO2-Arterial 42 35 - 45 MMHG pO2-Arterial 132 (H) 80 - 100 MMHG Base Deficit-Arterial 2.1 MMOL/L O2 Sat-Arterial 98.9 95 - 99 % Igxyqotlngv-MXP-Sxw 22.7 21 - 28 MMOL/L Specimen Performing Laboratory Blood, arterial - Blood MAIN LAB [address] [place] [address] * IONIZED CALCIUM (03/12/2017 3:44 AM) Component Value Ref Range Ionized Calcium 1.14 1.0 - 1.3 MMOL/L Specimen Performing Laboratory Blood MAIN LAB [address] [place] [address] * PHOSPHORUS (03/12/2017 3:44 AM) Component Value Ref Range Phosphorus 8.7 (H) 2.0 - 4.0 MG/DL Specimen Performing Laboratory Blood MAIN LAB [address] [place], [place] [id number] * MAGNESIUM (03/12/2017 3:44 AM) Component Value Ref Range Magnesium 2.2 1.6 - 2.6 mg/dL Specimen Performing Laboratory Blood MAIN LAB [address] [place] [address] * CBC AND DIFF (03/12/2017 3:44 AM) [...] Performing Laboratory [facility] [address] [place] [address] * BASIC METABOLIC PANEL (03/12/2017 3:44 AM) [...] Specimen Performing Laboratory Blood MAIN LAB [address] [place] [address] * CHEST SINGLE VIEW (03/12/2017 3:40 AM) [...] the diaphragm and projects out of the rnlri-iu-sxyw. Persistent cardiomegaly without pulmonary venous congestion. Large left pleural effusion with adjacent consolidation. No pneumothorax. Procedure Note Interface, Radiant Results - 03/12/2017 11:09 AM MATERIAL RECLAIMER Procedure: CHEST SINGLE VIEW Clinical Indication: Pleural effusion. Comparison: Chest radiograph March 10, 2017 FINDINGS: Single portable supine AP chest radiograph was obtained. Endotracheal tube with tip well above the tiara at the level of the clavicles. Gastric tube courses below the diaphragm and projects out of the hdszo-te-getc. Persistent cardiomegaly without pulmonary venous congestion. Large [...] on 03/11/2017 5:00 PM. Dictated by Juan Calros Lozano M.D. on 03/11/2017 4:34 PM. 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 Epidural drain in place., TECHNIQUE: Multiple contiguous axial images were obtained of the brain without intravenous contrast. COMPARISON: CT head March 09, 2017 and CTA head March 10, 2017 FINDINGS: Dr. Juan Carlos Leever, M.D. has personally reviewed these images and [...] Interface, Radiant Results - 03/11/2017 5:03 PM MATERIAL RECLAIMER EXAM: CT HEAD HISTORY: , craniectomy last [...] Range BSA 2.35 m2 CV ECHO PV [employer] PROFESSIONAL TENZIN Anand LVIDD 5.9 4.2 - 5.9 [...] Gann RN 03/11/20172:41 PM 0900 Arrived in [facility] to set up for dialysis. Assessment completed and documented. Care of pt, respirator and all lines remains with his primary URBAN SOCIOLOGISTTENZIN Jean. Left AVF assessed and found to [...] of 3 liters of fluid. 1045 Dr Paula at bedside. Requested length of dialysis to be increased to 4 hours and UF goal be increased to 4 liters. 1400 Dialysis treatment completed. Pt tolerated well. Blood returned and needles removed from left AVF, hemostasis achieved and area covered with dry gauze and paper tape. Report given to primary URBAN SOCIOLOGISTTENZIN Jean. * TROPONIN-I (03/11/2017 8:43 AM) Component Value Ref Range Troponin-I 0.17 (H) 0.0 - 0.05 NG/ML Specimen Performing Laboratory Blood MAIN LAB [address] [place], [place] [id number] * TROPONIN-I (03/11/2017 6:07 AM) Component Value Ref Range Troponin-I 0.16 (H) 0.0 - 0.05 NG/ML Specimen Performing Laboratory Blood MAIN LAB [address] [place], [place] [id number] * IONIZED CALCIUM (03/11/2017 3:55 AM) Component Value Ref Range Ionized Calcium 1.05 1.0 - 1.3 MMOL/L Specimen Performing Laboratory MAIN LAB [address] [place], [place] [id number] * TROPONIN-I (03/11/2017 3:55 AM) Component Value Ref Range Troponin-I 0.15 (H) 0.0 - 0.05 NG/ML Specimen Performing Laboratory MAIN LAB [address] [place], [place] [id number] * BLOOD GASES, ARTERIAL (03/11/2017 3:55 AM) Component Value Ref Range pH-Arterial 7.36 7.35 - 7.45 pCO2-Arterial 41 35 - 45 MMHG pO2-Arterial 135 (H) 80 - 100 MMHG Base Deficit-Arterial 2.3 MMOL/L O2 Sat-Arterial 99.2 (H) 95 - 99 % Hsdgogmendl-NGY-Oxf 22.5 21 - 28 MMOL/L Specimen Performing Laboratory Blood, arterial - Blood MAIN LAB [address] [place] [address] * PHOSPHORUS (03/11/2017 3:55 AM) Component Value Ref Range Phosphorus 9.1 (H) 2.0 - 4.0 MG/DL Specimen Performing Laboratory Blood MAIN LAB [address] [place] [address] * MAGNESIUM (03/11/2017 3:55 AM) Component Value Ref Range Magnesium 2.1 1.6 - 2.6 mg/dL Specimen Performing Laboratory Blood MAIN LAB [address] [place] [address] * CBC AND DIFF (03/11/2017 3:55 AM) [...] Specimen Performing Laboratory Blood MAIN LAB [address] [place] [address] * BASIC METABOLIC PANEL (03/11/2017 3:55 AM) [...] Performing Laboratory [facility] [address] [place] [address] * TROPONIN-I (03/11/2017 12:50 AM) Component Value Ref Range Troponin-I 0.13 (H) 0.0 - 0.05 NG/ML Specimen Performing Laboratory [facility] [address] [place] [address] * BLOOD GASES, ARTERIAL (03/11/2017 12:50 AM) Component Value Ref Range pH-Arterial 7.36 7.35 - 7.45 pCO2-Arterial 41 35 - 45 MMHG pO2-Arterial 140 (H) 80 - 100 MMHG Base Deficit-Arterial 2.1 MMOL/L O2 Sat-Arterial 99.3 (H) 95 - 99 % Imhbhjvhqre-DMJ-Zvr 22.7 21 - 28 MMOL/L Specimen Performing Laboratory Blood, arterial - Blood [facility]IN [facility] [address] [place] [address] * FLUORO MOBILE IN OR (03/10/2017 10:18 [...] angiography is performed to evaluate the vasculature. ENTRY LEVEL CHEMIST. Rohit FISH CONSERVATIONIST. David PGY-6 PROCEDURE. 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 Patient required emergent reoperation for neurologic change. CT perfusion demonstrates prolonged mean transit times involving the inferior division of the right MCA. Intraoperative angiography is performed to evaluate the vasculature. ENTRY LEVEL CHEMIST. Rohit FISH CONSERVATIONIST. David PGY-6 PROCEDURE. Intraoperative angiography right internal [...] CT and then to OR for second time.[facility] contacted and said patient may be done the next morning.Unit nurse also said patient may still have needles from outpatient dialysis unit in fistula. Patient already in OR. * POC IONIZED CALCIUM (03/10/2017 9:03 PM) Component Value Ref Range Ionized Calcium-POC 0.98 (L) 1.0 - 1.3 MMOL/L Specimen Performing Laboratory MAIN LAB [address] [place] [address] * POC SODIUM (03/10/2017 9:03 PM) Component Value Ref Range Sodium-POC 134 (L) 137 - 147 MMOL/L Specimen Performing Laboratory MAIN LAB [address] [place] [address] * POC POTASSIUM (03/10/2017 9:03 PM) Component Value Ref Range Potassium-POC 4.0 3.5 - 5.1 MMOL/L Specimen Performing Laboratory MAIN LAB [address] [place] [address] * POC HEMATOCRIT (03/10/2017 9:03 PM) Component Value Ref Range Hemoglobin POC 9.5 (L) 13.5 - 16.5 GM/DL Hematocrit POC 28.0 (L) 40 - 50 % Specimen Performing Laboratory [facility] [address] [place] [address] * POC BLOOD GAS ARTERIAL (03/10/2017 9:03 PM) Component Value Ref Range PH-ART-POC 7.34 (L) 7.35 - 7.45 CLC0-AAP-IOI 44 35 - 45 MMHG PO2-ART-POC 69 (L) 80 - 100 MMHG Base Def-ART-POC 2.0 MMOL/L O2 Sat-ART-POC 92.0 (L) 95 - 99 % Xfwrdakhpii-RMX-OKC 23.7 21 - 28 MMOL/L Specimen Performing Laboratory [facility] [address] [place] [address] * TROPONIN-I (03/10/2017 8:50 PM) Component Value Ref Range Troponin-I 0.16 (H) 0.0 - 0.05 NG/ML Specimen Performing Laboratory MAIN LAB [address] [place] [address] * PHOSPHORUS (03/10/2017 8:50 PM) Component Value Ref Range Phosphorus 8.1 (H) 2.0 - 4.0 MG/DL Specimen Performing Laboratory MAIN LAB [address] [place], [place] [id number] * CBC (03/10/2017 8:50 PM) Component Value [...] 11 FL Specimen Performing Laboratory MAIN LAB [address] [place] [address] * BASIC METABOLIC PANEL (03/10/2017 8:50 PM) [...] questions. Specimen Performing Laboratory MAIN LAB [address] [place] [address] * PTT (APTT) (03/10/2017 8:50 PM) Component Value Ref Range APTT 29.8Comment: NOTE NEW REFERENCE RANGES 21.0 - 39.0 SEC Specimen Performing Laboratory Blood MAIN LAB [address] [place] [address] * PROTIME INR (PT) (03/10/2017 8:50 PM) Component Value Ref Range INR 1.3 (H) 0.8 - 1.2 Specimen Performing Laboratory Blood MAIN LAB [address] [place] [address] * CT BRAIN PERF (03/10/2017 8:35 PM) [...] Interface, Radiant Results - 03/10/2017 9:56 PM MATERIAL RECLAIMER EXAM: CTA HEAD AND NECK, CTA BRAIN [...] Interface, Radiant Results - 03/10/2017 9:56 PM MATERIAL RECLAIMER EXAM: CTA HEAD AND NECK, CTA BRAIN [...] 1.3 MMOL/L Specimen Performing Laboratory MAIN LAB [address] [place] [address] * POC SODIUM (03/10/2017 5:00 PM) Component Value Ref Range Sodium-POC 135 (L) 137 - 147 MMOL/L Specimen Performing Laboratory MAIN LAB [address] [place] [address] * POC POTASSIUM (03/10/2017 5:00 PM) Component Value Ref Range Potassium-POC 4.0 3.5 - 5.1 MMOL/L Specimen Performing Laboratory MAIN LAB [address] [place] [address] * POC HEMATOCRIT (03/10/2017 5:00 PM) Component Value Ref Range Hemoglobin POC 8.5 (L) 13.5 - 16.5 GM/DL Hematocrit POC 25.0 (L) 40 - 50 % Specimen Performing Laboratory MAIN LAB [address] [place] [address] * POC BLOOD GAS ARTERIAL (03/10/2017 5:00 PM) Component Value Ref Range PH-ART-POC 7.40 7.35 - 7.45 MVQ6-XFM-WQL 37 35 - 45 MMHG PO2-ART-POC 76 (L) 80 - 100 MMHG Base Def-ART-POC 2.0 MMOL/L O2 Sat-ART-POC 95.0 95 - 99 % Rxlvhikjyuf-RMW-OVA 23.0 21 - 28 MMOL/L Specimen Performing Laboratory [facility] [address] [place] [address] * POC IONIZED CALCIUM (03/10/2017 2:30 PM) Component Value Ref Range Ionized Calcium-POC 0.97 (L) 1.0 - 1.3 MMOL/L Specimen Performing Laboratory MAIN LAB [address] [place] [address] * POC SODIUM (03/10/2017 2:30 PM) Component Value Ref Range Sodium-POC 135 (L) 137 - 147 MMOL/L Specimen Performing Laboratory [facility] [address] [place] [address] * POC POTASSIUM (03/10/2017 2:30 PM) Component Value Ref Range Potassium-POC 4.0 3.5 - 5.1 MMOL/L Specimen Performing Laboratory [facility] [address] [place] [address] * POC HEMATOCRIT (03/10/2017 2:30 PM) Component Value Ref Range Hemoglobin POC 8.8 (L) 13.5 - 16.5 GM/DL Hematocrit POC 26.0 (L) 40 - 50 % Specimen Performing Laboratory [facility] [address] [place] [address] * POC BLOOD GAS ARTERIAL (03/10/2017 2:30 PM) Component Value Ref Range PH-ART-POC 7.42 7.35 - 7.45 PIO9-HMZ-SFV 37 35 - 45 MMHG PO2-ART-POC 72 (L) 80 - 100 MMHG Base Ex-ART-POC 0.0 MMOL/L O2 Sat-ART-POC 95.0 95 - 99 % Jqvsqwloylg-VXI-KAM 24.0 21 - 28 MMOL/L Specimen Performing Laboratory [facility] [address] [place] [address] * POC GLUCOSE (03/10/2017 12:10 PM) Component Value Ref Range Glucose, POC 90 70 - 100 MG/DL Specimen Performing Laboratory [facility] [address] [place] [address] * POC IONIZED CALCIUM (03/10/2017 11:29 AM) Component Value Ref Range Ionized Calcium-POC 1.01 1.0 - 1.3 MMOL/L Specimen Performing Laboratory MAIN LAB [address] [place] [address] * POC SODIUM (03/10/2017 11:29 AM) Component Value Ref Range Sodium-POC 135 (L) 137 - 147 MMOL/L Specimen Performing Laboratory MAIN LAB [address] [place] [address] * POC POTASSIUM (03/10/2017 11:29 AM) Component Value Ref Range Potassium-POC 3.5 3.5 - 5.1 MMOL/L Specimen Performing Laboratory MAIN LAB [address] [place] [address] * POC HEMATOCRIT (03/10/2017 11:29 AM) Component Value Ref Range Hemoglobin POC 8.5 (L) 13.5 - 16.5 GM/DL Hematocrit POC 25.0 (L) 40 - 50 % Specimen Performing Laboratory MAIN LAB [address] [place] [address] * POC BLOOD GAS ARTERIAL (03/10/2017 11:29 AM) Component Value Ref Range PH-ART-POC 7.45 7.35 - 7.45 LFY6-NSI-TAN 36 35 - 45 MMHG PO2-ART-POC 86 80 - 100 MMHG Base Ex-ART-POC 1.0 MMOL/L O2 Sat-ART-POC 97.0 95 - 99 % Rtnzdrsnteu-RZR-ZNE 24.6 21 - 28 MMOL/L Specimen Performing Laboratory MAIN LAB [address] [place] [address] * POC IONIZED CALCIUM (03/10/2017 10:18 AM) Component Value Ref Range Ionized Calcium-POC 1.02 1.0 - 1.3 MMOL/L Specimen Performing Laboratory MAIN LAB [address] [place] [address] * POC SODIUM (03/10/2017 10:18 AM) Component Value Ref Range Sodium-POC 135 (L) 137 - 147 MMOL/L Specimen Performing Laboratory MAIN LAB [address] [place], [place] [id number] * POC POTASSIUM (03/10/2017 10:18 AM) Component Value Ref Range Potassium-POC 3.4 (L) 3.5 - 5.1 MMOL/L Specimen Performing Laboratory MAIN LAB [address] [place] [address] * POC HEMATOCRIT (03/10/2017 10:18 AM) Component Value Ref Range Hemoglobin POC 7.8 (L) 13.5 - 16.5 GM/DL Hematocrit POC 23.0 (L) 40 - 50 % Specimen Performing Laboratory [facility] [address] [place] [address] * POC BLOOD GAS ARTERIAL (03/10/2017 10:18 AM) Component Value Ref Range PH-ART-POC 7.46 (H) 7.35 - 7.45 ICU2-FZN-TFX 35 35 - 45 MMHG PO2-ART-POC 90 80 - 100 MMHG Base Ex-ART-POC 1.0 MMOL/L O2 Sat-ART-POC 97.0 95 - 99 % Jirgvmmrvmp-VCP-XMI 25.0 21 - 28 MMOL/L Specimen Performing Laboratory [facility] [address] [place] [address] * IR ARTERIOGRAM NEURO (03/10/2017 9:34 AM) Specimen Performing Laboratory [facility] RAD RESULTS [...] angiography is performed to evaluate the vasculature. ENTRY LEVEL CHEMIST. Rohit FISH CONSERVATIONIST. David PGY-6 PROCEDURE. 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 Patient required emergent reoperation for neurologic change. CT perfusion demonstrates prolonged mean transit times involving the inferior division of the right MCA. Intraoperative angiography is performed to evaluate the vasculature. ENTRY LEVEL CHEMIST. Rohit FISH CONSERVATIONIST. David PGY-6 PROCEDURE. Intraoperative angiography right internal [...] Interface, Radiant Results - 03/10/2017 10:16 AM MATERIAL RECLAIMER ABDOMEN AP ONLY Indication: gastric tube placement [...] POS Specimen Performing Laboratory Blood MAIN LAB [address] [place] [address] * TRIGLYCERIDE (03/10/2017 3:25 AM) Component Value Ref Range Triglycerides 84 <150 MG/DL Specimen Performing Laboratory MAIN LAB [address] [place], [place] [id number] * IONIZED CALCIUM (03/10/2017 3:25 AM) Component Value Ref Range Ionized Calcium 1.01 1.0 - 1.3 MMOL/L Specimen Performing Laboratory Blood MAIN LAB [address] [place], [place] [id number] * PHOSPHORUS (03/10/2017 3:25 AM) Component Value Ref Range Phosphorus 6.1 (H) 2.0 - 4.0 MG/DL Specimen Performing Laboratory Blood MAIN LAB [address] [place], [place] [id number] * MAGNESIUM (03/10/2017 3:25 AM) Component Value Ref Range Magnesium 2.2 1.6 - 2.6 mg/dL Specimen Performing Laboratory Blood MAIN LAB [address] [place], [place] [id number] * CBC AND DIFF (03/10/2017 3:25 AM) [...] Specimen Performing Laboratory Blood MAIN LAB [address] [place] [address] * BASIC METABOLIC PANEL (03/10/2017 3:25 AM) [...] Specimen Performing Laboratory Blood MAIN [facility] [address] [place] [address] * TYPE & CROSSMATCH (03/10/2017 3:25 AM) Component Value Ref Range Units Ordered 4 Crossmatch Expires 03/13/2017 Record Check 2ND TYPE REQUIRED ABO/RH(D) A POS Antibody Screen NEG Electronic Crossmatch YES Unit Number [id number] Blood Component Type RBC,ADSOL,LEUKO REDUCED Unit Division 0 Status OF Unit DISCARDED Transfusion Status OK TO TRANSFUSE Crossmatch Result COMPATIBLE,ELECTRONIC Unit Number [id number] Blood Component Type RBC,ADSOL,LEUKO REDUCED Unit Division 0 Status OF Unit TRANSFUSED Transfusion Status OK TO TRANSFUSE Crossmatch Result COMPATIBLE,ELECTRONIC Unit Number [id number] Blood Component Type RBC,ADSOL,LEUKO REDUCED Unit Division 0 Status OF Unit REL FROM ALLOC Transfusion Status OK TO TRANSFUSE Crossmatch Result COMPATIBLE,ELECTRONIC Unit Number [id number] Blood Component Type RBC,ADSOL,LEUKO REDUCED Unit Division 0 Status OF Unit REL FROM ALLOC Transfusion Status OK TO TRANSFUSE Crossmatch Result COMPATIBLE,ELECTRONIC Unit Number [id number] Blood Component Type RBC,ADSOL,LEUKO REDUCED Unit Division 0 Status OF Unit TRANSFUSED Transfusion Status OK TO TRANSFUSE Crossmatch Result COMPATIBLE,ELECTRONIC Specimen Performing Laboratory Blood [facility] [address] [place] [address] * CHEST SINGLE VIEW (03/10/2017 1:47 AM) [...] Interface, Radiant Results - 03/10/2017 10:56 AM MATERIAL RECLAIMER CHEST SINGLE VIEW Indication: Male, 51 years [...] costophrenic angles are not included within the wlhwt-oe-myre. No pneumothorax. Right AC joint arthrosis. Procedure Note Interface, Radiant Results - 03/09/2017 9:32 PM MATERIAL RECLAIMER CHEST SINGLE VIEW Clinical history: Repositioned endotracheal [...] costophrenic angles are not included within the ixzio-bw-axkw. No pneumothorax. Right AC joint arthrosis. IMPRESSION [...] NG/ML Specimen Performing Laboratory Urine MAIN LAB [address] [place] [address] * OPIATES-URINE RANDOM (03/09/2017 6:45 PM) Component Value Ref Range Opiates-Urine NEG NEG-NEG Comment: RESULTS WERE OBTAINED BY IMMUNOASSAY AND ARE PRESUMPTIVE ONLY. POSITIVE INDICATES THE PRESENCE OF SUBSTANCE WITH CHARACTERISTICS SIMILAR TO DRUG-DRUG CLASS OR METABOLITE IN CONC. EQUAL TO OR EXCEEDING VALUES LISTED. OPIATES 200 0 NG/ML Specimen Performing Laboratory Urine MAIN LAB [address] [place] [address] * COCAINE-URINE RANDOM (03/09/2017 6:45 PM) Component Value Ref Range Cocaine-Urine NEG NEG-NEG Comment: RESULTS WERE OBTAINED BY IMMUNOASSAY AND ARE PRESUMPTIVE ONLY. POSITIVE INDICATES THE PRESENCE OF SUBSTANCE WITH CHARACTERISTICS SIMILAR TO DRUG-DRUG CLASS OR METABOLITE IN CONC. EQUAL TO OR EXCEEDING VALUES LISTED. COCAINE 300 NG/ML Specimen Performing Laboratory Urine [facility] [address] [place] [address] * CANNABINOIDS-URINE RANDOM (03/09/2017 6:45 PM) Component Value Ref Range THC NEG NEG-NEG Comment: RESULTS WERE OBTAINED BY IMMUNOASSAY AND ARE PRESUMPTIVE ONLY. POSITIVE INDICATES THE PRESENCE OF SUBSTANCE WITH CHARACTERISTICS SIMILAR TO DRUG-DRUG CLASS OR METABOLITE IN CONC. EQUAL TO OR EXCEEDING VALUES LISTED. CANNABINOIDS 50 NG/ML Specimen Performing Laboratory Urine [facility] [address] [place] [address] * BENZODIAZEPINES-URINE RANDOM (03/09/2017 6:45 PM) Component Value Ref Range Benzodiazepines POS (A) NEG-NEG Comment: RESULTS WERE OBTAINED BY IMMUNOASSAY AND ARE PRESUMPTIVE ONLY. POSITIVE INDICATES THE PRESENCE OF SUBSTANCE WITH CHARACTERISTICS SIMILAR TO DRUG-DRUG CLASS OR METABOLITE IN CONC. EQUAL TO OR EXCEEDING VALUES LISTED. BENZODIAZEPINES 200 NG/ML Specimen Performing Laboratory Urine [facility] [address] [place] [address] * BARBITURATES-URINE RANDOM (03/09/2017 6:45 PM) Component Value Ref Range Barbiturates,Urine NEG NEG-NEG Comment: RESULTS WERE OBTAINED BY IMMUNOASSAY AND ARE PRESUMPTIVE ONLY. POSITIVE INDICATES THE PRESENCE OF SUBSTANCE WITH CHARACTERISTICS SIMILAR TO DRUG-DRUG CLASS OR METABOLITE IN CONC. EQUAL TO OR EXCEEDING VALUES LISTED. BARBITURATES 200 NG/ML Specimen Performing Laboratory Urine [address] [address] * AMPHETAMINES-URINE RANDOM (03/09/2017 6:45 PM) Component Value Ref Range Amphetamines POS (A) NEG-NEG Comment: RESULTS WERE OBTAINED BY IMMUNOASSAY AND ARE PRESUMPTIVE ONLY. POSITIVE INDICATES THE PRESENCE OF SUBSTANCE WITH CHARACTERISTICS SIMILAR TO DRUG-DRUG CLASS OR METABOLITE IN CONC. EQUAL TO OR EXCEEDING VALUES LISTED. AMPHETAMINES 1000 NG/ML Specimen Performing Laboratory Urine [facility] [address] [place] [address] * IONIZED CALCIUM (03/09/2017 6:43 PM) Component Value Ref Range Ionized Calcium 1.10 1.0 - 1.3 MMOL/L Specimen Performing Laboratory Blood [facility] [address] [place] [address] * BLOOD GASES, ARTERIAL (03/09/2017 6:43 PM) Component Value Ref Range pH-Arterial 7.37 7.35 - 7.45 pCO2-Arterial 50 (H) 35 - 45 MMHG pO2-Arterial 118 (H) 80 - 100 MMHG Base Excess-Arterial 3.3 MMOL/L O2 Sat-Arterial 98.6 95 - 99 % Kjgaksjksku-NQV-Vnc 27.4 21 - 28 MMOL/L Specimen Performing Laboratory Blood, arterial - Blood [facility] MAIN LAB [address] [place] [id number] * PHOSPHORUS (03/09/2017 6:43 PM) Component Value Ref Range Phosphorus 6.0 (H) 2.0 - 4.0 MG/DL Specimen Performing Laboratory Blood [facility] MAIN [facility] [address] [place] [address] * MAGNESIUM (03/09/2017 6:43 PM) Component Value Ref Range Magnesium 2.1 1.6 - 2.6 mg/dL Specimen Performing Laboratory Blood [facility] MAIN [facility] [address] [place] [address] * COMPREHENSIVE METABOLIC PANEL (03/09/2017 6:43 PM) [...] Specimen Performing Laboratory Blood MAIN LAB [address] [place] [address] * PTT (APTT) (03/09/2017 6:43 PM) Component Value Ref Range APTT 31.9Comment: NOTE NEW REFERENCE RANGES 21.0 - 39.0 SEC Specimen Performing Laboratory Blood MAIN LAB [address] [place] [address] * PROTIME INR (PT) (03/09/2017 6:43 PM) Component Value Ref Range INR 1.3 (H) 0.8 - 1.2 Specimen Performing Laboratory Blood MAIN LAB [address] [place] [address] * CBC AND DIFF (03/09/2017 6:43 PM) [...] K/UL Specimen Performing Laboratory Blood MAIN LAB [address] [place] [address] * IR ARTERIOGRAM NEURO (03/09/2017 6:35 PM) Specimen Performing Laboratory [facility] RAD RESULTS Addenda Addendum by Lyly Rogel MD on 03/11/2017 10:05 AM Finalized by LYLY ROGEL M.D. on 03/11/2017 8:34 AM. Dictated by LYLY ROGEL M.D. on 03/11/2017 8:22 AM.Addendum: Left Common Femoral Vein Central Line Placement Under fluoroscopic guidance a 4 Tunisian 10 cm central venous line was placed [...] Fentanyl 100 mcg Contrast - 100 cc [id number] Total mGy - 1174 Anesthesia:conscious sedation Consent -The procedure and its risks, benefits, and alternative treatments were explained to the patient's family over the telephone and a witnessed telephone consent was obtained. Clinical History: Mr. Mayfield is a 51 year old male who presented to the [facility] and was found to have subarachnoid hemorrhage [...] establishing arterial access. RCCA Technique A 5 Tunisian 100 cm Vert catheter was advanced over a 150 cm 0.035 Independence wire over the aortic arch and into [...] under fluoroscopic and roadmap guidance over the Independence wire and images were obtained in biplane [...] therefore, hemostasis was achieved using a 6 Tunisian Angioseal closure device followed by manual pressure for 5 minutes. The patient was transported to the neuro ICU in stable clinical and hemodynamic conditions. Complications - none immediate Procedure Note Interface, Radiant Results - 03/11/2017 10:05 AM MATERIAL RECLAIMER Cerebral Angiogram Indication - SAH with IPH [...] Fentanyl 100 mcg Contrast - 100 cc [id number] Total mGy - 1174 Anesthesia: conscious sedation Consent - The procedure and its risks, benefits, and alternative treatments were explained to the patient's family over the telephone and a witnessed telephone consent was obtained. Clinical History: Mr. Mayfield is a 51 year old male who presented to the [facility] and was found to have subarachnoid hemorrhage [...] establishing arterial access. RCCA Technique A 5 Tunisian 100 cm Vert catheter was advanced over a 150 cm 0.035 Independence wire over the aortic arch and into [...] under fluoroscopic and roadmap guidance over the Independence wire and images were obtained in biplane [...] therefore, hemostasis was achieved using a 6 Tunisian Angioseal closure device followed by manual pressure [...] Interface, Radiant Results - 03/09/2017 6:58 PM MATERIAL RECLAIMER EXAM: CTA HEAD HISTORY: 51-year-old male, subarachnoid [...] Interface, Radiant Results - 03/10/2017 10:56 AM MATERIAL RECLAIMER CHEST SINGLE VIEW Indication: Male, 51 years [...] aneurysm Cerebral aneurysm, nonruptured Admitting Diagnoses Diagnosis subarachnoid hemorrhage Subarachnoid bleed (HCC) 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HCC) Subarachnoid hemorrhage Brain aneurysm Cerebral aneurysm, nonruptured 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HCC) Subarachnoid hemorrhage Acquired skull defect Other specified acquired deformity of head Administered Medications Medication Order MAR Action Action Date Dose Rate Site bacitracin (BACIIM) 50,000 Units in Given 03/10/2017 500 mL Ringer's 500 mL irrigation bottle 22:06 MATERIAL RECLAIMER INTRA-PROCEDURE MED, Starting 03/10/17 at 2206, Until 03/11/17 at 0056, Intra-op bacitracin topical ointment Given 03/10/2017 1 Dose INTRA-PROCEDURE MED, Starting Sun 22:47 MATERIAL RECLAIMER 03/10/17 at 2247, Until 03/11/17 at 0056, Intra-op vancomycin (VANCOCIN) injection Given 03/10/2017 1 g INTRA-PROCEDURE MED, Starting Sun 22:47 MATERIAL RECLAIMER 03/10/17 at 2247, Until Sat03/11/17 at 0056, Intra-op in this encounter
--- OUTSIDE RECORDS SUMMARY | 2017-05-07 16:34 | XMS REPORT | Encounter Summary ---
Author Author [facility] Organization [facility] Address Unknown Phone Unavailable Care Team Providers Care Medical Records Specialist Name Role Phone No Pcp, Na PCP Unavailable Encounter Details Date Type Department Care Team Description 03/10/2017 Procedure Pass [address] [place] [address] Social History Tobacco Use Types Packs/Day Years Used Date Never Assessed Sex Assigned at Date Recorded Not on file as of this encounter Plan of Treatment Date Type Specialty Care Team Description 05/03/2017 Anesthesia Hannah Acevedo, DO Event [address] [place] [address] [phone] 05/17/2017 Surgery Edgar Bee MD CRANIOPLASTY FOR RIGHT [address] [place] [address] [place] [address] FROM RIGHT ABDOMEN [phone] 05/17/2017 Procedure Pass 05/17/2017 Hospital Edgar Bee MD Brain aneurysm Encounter [address] [place] [address] [phone] as of this encounter Visit Diagnoses Not on filein this encounter
--- OUTSIDE RECORDS SUMMARY | 2017-05-07 16:34 | XMS REPORT | Encounter Summary ---
Author Author [facility] Organization [facility] Address Unknown Phone Unavailable Care Team Providers Care Formula Bottler Name Role Phone No Pcp, Na PCP Unavailable Encounter Details Date Type Department Care Team Description 03/10/2017 Procedure Pass CA[address] [place] [address] Social History Tobacco Use Types Packs/Day Years Used Date Never Assessed Sex Assigned at Date Recorded Not on file as of this encounter Plan of Treatment Date Type Specialty Care Team Description 05/03/2017 Anesthesia Hannah Acevedo, DO Event [address] [place] [address] [phone] 05/17/2017 Surgery Edgar Bee MD CRANIOPLASTY FOR RIGHT [address] [place] [address] [place] [address] FROM RIGHT ABDOMEN [phone] 05/17/2017 Procedure Pass 05/17/2017 Hospital Edgar Bee MD Brain aneurysm Encounter [address] [place] [address] [phone] as of this encounter Visit Diagnoses Not on filein this encounter
--- OUTSIDE RECORDS SUMMARY | 2017-05-07 16:35 | XMS REPORT | Encounter Summary ---
Author Author [facility] Organization [facility] Address Unknown Phone Unavailable Care Team Providers Care Rn Concurrent Review Name Role Phone No Pcp, Na PCP Unavailable Encounter Details Date Type Department Care Team Description 03/10/2017 Procedure Pass [facility] Operating Room [address] [place] [address] Social History Tobacco Use Types Packs/Day Years Used Date Never Assessed Sex Assigned at Date Recorded Not on file as of this encounter Plan of Treatment Date Type Specialty Care Team Description 05/03/2017 Anesthesia Hannah Acevedo, DO Event [address] [place] [address] [phone] 05/17/2017 Surgery Edgar Bee MD CRANIOPLASTY FOR RIGHT [address] [place] [address] [place] [address] FROM RIGHT ABDOMEN [phone] 05/17/2017 Procedure Pass 05/17/2017 Hospital Edgar Bee MD Brain aneurysm Encounter [address] [place] [address] [phone] as of this encounter Visit Diagnoses Not on filein this encounter
--- OUTSIDE RECORDS SUMMARY | 2017-05-07 16:39 | XMS REPORT | Encounter Summary ---
Author Author [facility] Organization [facility] Address Unknown Phone Unavailable Care Team Providers Care Chairman & Co Founder Name Role Phone No Pcp, Na PCP Unavailable Reason for Visit * Auth/Cert Status Reason Specialty Diagnoses / Referred By Referred To Procedures Contact Contact Diagnoses 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HCC) Brain aneurysm subarachnoid hemorrhage Subarachnoid bleed (HCC) Encounter Details Date Type Department Care Team Description 03/10/2017 Surgery [place] Operating Room Edgar Bee MD Rt pterional craniotomy [address] [place] [address] MS 3021 aneurysm [phone] [place], [place] [id number] Social History Tobacco Use Types Packs/Day Years Used Date Current Every Day Smoker 1 30 Sex Assigned at Date Recorded Not on file as of this encounter Last Filed Vital Signs Vital Sign Reading Time Taken Blood Pressure 192/83 03/26/2017 1:47 PM DOG WARDEN Pulse 72 03/26/2017 1:47 PM DOG WARDEN Temperature 36.8 C (98.3 F) 03/26/2017 1:47 PM DOG WARDEN Respiratory Rate - - Oxygen Saturation 95% 03/26/2017 1:47 PM DOG WARDEN Inhaled Oxygen - - Concentration Weight 105.9 kg (233 lb 7.5 oz) 03/26/2017 12:47 PM DOG WARDEN Height 172.7 cm (5' 8") 03/11/2017 3:28 PM DOG WARDEN Body Mass Index 35.5 03/26/2017 12:47 PM DOG WARDEN in this encounter Functional Status Functional Status [...] Melisa Emery APRN - 03/26/2017 3:49 PM DOG WARDEN Formatting of this note may be different [...] complexity and goals with PT, OT, and LANDS RESOURCE MANAGER for acute inpatient rehabilitation. Transferred to inpatient [...] or concerns regarding your hospital stay. Call [phone] Discharging attending physician: EDGAR BEE [[id number]] Pureed Diet You should eat or drink foods that are easy to swallow because they are blended , whipped, or mashed to a "pudding-like" texture. All foods on this diet should be smooth and free of lumps. [place] thick liquids. Needs supervision with oral intake. If you have questions about your diet after you go home, you can call a dietitian at [phone]. Incision Care *Keep your incision clean and [...] we can schedule his cranioplasty, please call [phone]. Provider EDGAR BEE [[id number]] Location [facility] Additional Discharge Instructions Patient Birgit Deluca Sat. [...] Amairani Miller, RN - 03/26/2017 3:49 PM DOG WARDEN Naren Mayfield discharged on 03/26/2017. Discharge instructions reviewed with nurse at rehab facility. Valuables returned: Yes Personal Items / Valuables: Valuables/Belongings home with patient. Home medications: None Functional assessment at discharge complete: Yes PIV removed prior to discharge. Report called to RN at rehab facility. All questions addressed and answered. * Melisa Emery APRN - 03/26/2017 12:43 PM DOG WARDEN Formatting of this note may be different [...] (HCC) Added automatically from request for surgery [id number] IVH (intraventricular hemorrhage) (HCC) Intraparenchymal hematoma of brain (HCC) Subarachnoid bleed (HCC) Acquired skull defect Added automatically from request for surgery [id number] SBP goal - normotensive Nimotop SQH Keppra [...] assessed for need for restraints. Please call [phone] with questions. Melisa Emery APRN * Eddie Oconnor MBBS - 03/26/2017 10:43 AM DOG WARDEN Formatting of this note may be different [...] renal standpoint. CIPRIANO De La Rosa Pager [phone] Subjective Naren Mayfield is a 51 y.o. [...] 20,000 Units/ sodium bicarbonate 650 mg(#) PRN (Hanger from Rx), sodium chloride 0.9% (NS) IP [...] Carie Kinney, OT - 03/26/2017 10:00 AM DOG WARDEN OCCUPATIONAL THERAPY NO TREATMENT NOTE Patient off unit to dialysis at this time and unavailable for occupational therapy. OT will continue to follow. Therapist: ROME Portillo/Omar [id number] Date: 03/26/2017 * Miguel Angel Godoy, PT - 03/25/2017 10:57 AM DO[facility]EN PHYSICAL THERAPY PROGRESS NOTE MOBILITY: Mobility Progressive [...] * Sharyn Rutledge - 03/25/2017 10:54 AM DOG WARDEN Formatting of this note may be different from the original. OCCUPATIONAL THERAPY PROGRESS NOTE Patient Name: Naren Mayfield Room/Bed: IC1176/01 Admitting Diagnosis: subarachnoid hemorrhage Subarachnoid bleed (HCC) [...] Eddie Oconnor MBBS - 03/25/2017 10:17 AM DOG WARDEN Formatting of this note may be different [...] with dialysis. CIPRIANO De La Rosa Pager [phone] Subjective Naren Mayfield is a 51 y.o. [...] Units/ sodium bicarbonate 650 mg(#) PRN ( Hanger from Rx), sodium chloride 0.9% (NS) IP [...] Dolores Simmons APRN - 03/25/2017 8:46 AM DOG WARDEN Formatting of this note may be different [...] (HCC) Added automatically from request for surgery [id number] IVH (intraventricular hemorrhage) (HCC) Intraparenchymal hematoma of brain (HCC) Subarachnoid bleed (HCC) Acquired skull defect Added automatically from request for surgery [id number] SBP goal - normotensive Nimotop SQH Keppra (renal dosing) PT/OT - inpatient rehab - plan for [place] pending cranioplasty-if can be placed will wait to complete cranioplasty CT head 03/23 reviewed Prophylaxis: A)GI: PPI B) Lines: No C) Urinary Catheter: No D) Antibiotic Usage: No E) VTE: Pharmacological prophylaxis; SQ Heparin and Mechanical prophylaxis; Sequential compression device F) Restraints: Patient assessed for need for restraints. Please call [phone] with questions. Maria Dolores Simmons, ROLO 2590 * Jay Mortensen - 03/24/2017 4:28 PM DOG WARDEN ORTHOTICS/PROSTHETICS Follow-up Note: NAME: Naren Mayfield ROOM: [place] [address] DIAGNOSIS: brain bleed DATE OF INITIAL CONSULT: [...] Thank you Orthotics can be reached at [phone]. Jay Mortensen * Montana Moore MD - 03/24/2017 9:00 AM DOG WARDEN Formatting of this note may be different [...] (HCC) Added automatically from request for surgery [id number] IVH (intraventricular hemorrhage) (HCC) Intraparenchymal hematoma of brain (HCC) Subarachnoid bleed (HCC) SBP goal - normotensive Nimotop SQH Keppra (renal dosing) PT/OT - inpatient rehab - plan for [place] pending cranioplasty Corpak out, continue to monitor [...] assessed for need for restraints. Please call [phone] with questions. Saeid Nix MD ATTESTATION audioprosthologist neurosurgery attending coverage. Patient seen and reviewed with resident team. Present management. Staff name: Montana Moore MD Date: 03/24/2017 * Jimena Rogel, RT - 03/24/2017 8:53 AM DOG WARDEN Formatting of this note may be different [...] Date: 03/24/2017 Rubin AC=Airway clearance AM=Aerosolized medication BA=Woodruff aerosol DB&C=Deep breathe & cough FEV1=Forced expiratory volume in first second) IC=Inspiratory capacity LE=Lung expansion MDI=Metered dose inhaler Neb=Nebulizer O2=Oxygen Oxim=Oximetry PEFR=Peak expiratory flow rate CAN LABELER=Rapid Response Team * Yesenia Mendoza, RN - 03/24/2017 8:25 AM DOG WARDEN Patient up to chair but refusing to wear helmet because he states it is too small. This RN contacted [employer] about getting a larger helmet. * Consuelo Cox RN - 03/24/2017 7:11 AM DO[facility]EN Neuro surgery paged. Pt removed Corpak last night, day RN in need of morning medications changed to PO medications. MD Nix placed the orders to change medications. Will continue to monitor. * Consuelo Cox RN - 03/24/2017 1:40 AM DOG WARDEN Neuro surg paged. Pt's corpak came out after requesting tylenol, RN told MD that pt is tolerating nector thick liquids well. MD Nix notified and told RN told leave the corpak out and change the tylenol order to PO. * Yesenia Mendoza RN - 03/23/2017 6:47 PM DOG WARDEN Patient arrived on unit via bed accompanied by RN. Patient transferred to the bed with assistance. Assessment completed, refer to flowsheet for details. Orders released, reviewed, and implemented as appropriate. Oriented to surroundings, call light within reach. Plan of care reviewed. Will continue to monitor and assess. * Ryan Villagran MD - 03/23/2017 3:25 PM DOG WARDEN Formatting of this note may be different [...] per neuro team Ryan Villagran MD Pager [phone] Subjective Naren Mayfield is a 51 y.o. [...] 000 Units/ sodium bicarbonate 650 mg(#) PRN (Hanger from Rx), sodium chloride 0.9% (NS) IP [...] Montana Moore MD - 03/23/2017 2:54 PM DOG WARDEN Formatting of this note may be different [...] (HCC) Added automatically from request for surgery [id number] IVH (intraventricular hemorrhage) (HCC) Intraparenchymal hematoma of brain (HCC) Subarachnoid bleed (HCC) Continue monitoring for seizure activity - renal keppra dosing SBP - normotensive Nimotop SQH Keppra PT/OT - inpatient rehab - plan for [facility] when able Pending Corpak removal based on intake Possible cranioplasty Saturday Prophylaxis: A)GI: PPI B) Lines: Yes; Central Line; Indication: Hemodialysis/Plasmapheresis; Type: Implanted subcutaneous access device C) Urinary Catheter: No D) Antibiotic Usage: No E) VTE: Pharmacological prophylaxis; SQ Heparin and Mechanical prophylaxis; Sequential compression device F) Restraints: Patient assessed for need for restraints. Miguel Angel Jaime MD [phone] Please call [phone] with any questions. ATTESTATION audioprosthologist neurosurgery attending coverage. Patient seen and reviewed with resident team. Present management. Staff name: Montana Moore MD Date: 03/23/2017 * Matheus López RT - 03/23/2017 8:20 AM DOG WARDEN Formatting of this note may be different [...] Cell Crisis OR Anemia (<10) OR Acute CA (02 & oxim) Patient Assessment * Respiratory [...] Date: 03/23/2017 Rubin AC=Airway clearance AM=Aerosolized medication BA=Woodruff aerosol DB&C=Deep breathe & cough FEV1=Forced expiratory volume in first second) IC=Inspiratory capacity LE=Lung expansion MDI=Metered dose inhaler Neb=Nebulizer O2=Oxygen Oxim=Oximetry PEFR=Peak expiratory flow rate CAN LABELER=Rapid Response Team * Portia Johnson, RD - 03/22/2017 4:01 PM [facility] CLINICAL NUTRITION Clinical Nutrition Follow-Up Summary Nutrition Assessment of Patient: Malnutrition Assessment: Does not meet criteria Current Oral Intake: Inadequate (new start of pureed today) Estimated Calorie Needs: 9635-0122 (30-32 kcal/kg desired wt) Estimated Protein Needs: 110-135 (1.5-1.8 g /kg desired wt) Oral Diet Order: Pureed, [place] Thick Liquids Oral Supplement: Nutrisource Fiber, TID, [...] injuries noted. BM 03/22 (rectal tube out). LANDS RESOURCE MANAGER evaluated pt safe for pureed diet with nectar thick liquids today and EN feeds discontinued. Primary team added 3 packs Nutrisource fiber ( 1 per each meal). FSBS 128-219 with correction insulin on board. LANDS RESOURCE MANAGER continuing to follow pt for oral intake safety and options. Recommendation: Continue to encourage po inake on pureed diet with nectar thick fluids. Add CIB in nectar thick milk daily and PRN if tolerated with renal/diabetes status. Intervention / Plan: monitor po intake, wt trends, labs, meds, GI status monitor LANDS RESOURCE MANAGER findings and recs Nutrition Diagnosis: Nutrition Diagnosis: Altered GI function Etiology: swallowing deficits s/p SAH/extubation Signs & Symptoms: pureed diet with nectar thick fluids per LANDS RESOURCE MANAGER recs Goals: EN tolerated and meeting >85% of nutritional needs Time Frame: Throughout Stay Status: Partially met;no longer appropriate Patient to consume >50% of meals Time Frame: Within [address] * Lilian Garcia - 03/22/2017 1:57 PM DOG WARDEN SPEECH-LANGUAGE PATHOLOGY COGNITIVE ASSESSMENT // SWALLOW TREATMENT [...] safety problems given min cues. Therapist: Omar Ames/ISMAEL-LANDS RESOURCE MANAGER [id number] Date: 03/22/2017 * Elaine Nicholson APRN - 03/22/2017 12:18 PM DOG WARDEN Pt hemodynamically stable and neuro exam unchanged. Discussed with primary team and NEICU Team to sign off at this time. Please page [phone] with any questions. Thank you for this consult. * Sharyn Rutledge - 03/22/2017 11:32 AM DOG WARDEN Formatting of this note may be different from the original. OCCUPATIONAL THERAPY PROGRESS NOTE Patient Name: Naren Mayfield Room/Bed: XS9580/01 Admitting Diagnosis: subarachnoid hemorrhage Subarachnoid bleed (HCC) [...] to Participate Persons Present: (OT student; rehabilitation supervisor) ADL's Where Assessed: In Bathroom Eating Assist: [...] Carole Sloan, PT - 03/22/2017 10:09 AM DO[facility] PHYSICAL THERAPY PROGRESS NOTE MOBILITY: Mobility Progressive [...] / Cognitive Status: Cooperative;Alert;Follows Commands Persons Present: Stationary Equipment Mechanic Pain: Patient has no complaint of pain [...] Jeancarlos Menendez MD - 03/22/2017 7:41 AM DOG WARDEN Formatting of this note may be different from the original. Neuroscience Critical Care Progress Note Naren Mayfield Admission Date: 03/09/2017 LOS: 13 days ASSESSMENT/PLAN Patient Active Problem List Diagnosis Date Noted IVH (intraventricular hemorrhage) (HCC) 03/09/2017 Intraparenchymal hematoma of brain (HCC) 03/09/2017 Subarachnoid bleed (HCC) 03/09/2017 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HCC) 03/09/2017 Added automatically from request for surgery [id number] Naren Mayfieldis a 51 y.o.malewith PMH of [...] 130-180 to help with vasospasms - Nimodipine [id number] - Continue Keppra 1500mg daily after dialysis - TCDs Daily - Neuro-ICU monitoring, neurochecks q 2 hrs Sedation/Pain Management: Yes -ICU delirium - Stop Precedex - Fentanyl PRN - Seroquel BID 50mg - Haldol prn - Melatonin 3mg Qhs - Delirium protocol Cardiac: HTN, HLD - SBP goal: 130-180 - MAP goal > 65 - EKG with SR, LVH - 03/11 Restart IMMUNOLOGY SPECIALIST minoxidil and metoprolol BID - 03/11 ECHO [...] Potassium goal >4.0 mEq/L Prophylaxis Review: A) GI:O9Nwkyziu B) Lines:2 peripheral lines and Right arterial [...] 20,000 Units/ sodium bicarbonate 650 mg(#) PRN (Hanger from Rx), sodium chloride 0.9% (NS) IP [...] 0350) POC Glucose (Download): (!) 155 (03/22/17 1135) Radiology and Other Diagnostic Procedures Review: Reviewed and discussed above. Jeancarlos Menendez MD Date: 03/22/[phone] Associated attestation - Derrell Bowers MD - 03/22/2017 2:30 PM DOG WARDEN Formatting of this note may be different [...] Faraz Hernandez MD - 03/22/2017 6:57 AM DOG WARDEN Formatting of this note may be different [...] (HCC) Added automatically from request for surgery [id number] IVH (intraventricular hemorrhage) (HCC) Intraparenchymal hematoma of brain (HCC) Subarachnoid bleed (HCC) Continue monitoring for seizure activity - renal keppra dosing Nimotop SBP - normotensive will continue to add PAT meds SQ heparin Keppra PT/OT - inpatient rehab - plan for [facility] when able Progress on swallow evaluation - puree diet - may take out corpak. Prophylaxis: A)GI: PPI B) Lines: Yes; Central Line; Indication: Hemodialysis/Plasmapheresis; Type: Implanted subcutaneous access device C) Urinary Catheter: No D) Antibiotic Usage: No E) VTE: Pharmacological prophylaxis; SQ Heparin and Mechanical prophylaxis; Sequential compression device F) Restraints: Patient assessed for need for restraints. Faraz Hernandez MD Please call [phone] with any questions. * Adi Gonzalez, RT - 03/21/2017 10:39 PM DOG WARDEN RN placed Mr. Mayfield on 2 Lpm Nasal cannula to keep saturation above 92%. * Jarett Sultana, RN - 03/21/2017 8:30 PM DOG WARDEN Neurosurgery notified of pt guarding abdomen where bone flap is, his right lower quadrant of the abdomen. Neurosurgery at bedside to assess. Pt states its tender. Orders to monitor redness and site. Will continue to monitor. * Patti Mcclure - 03/21/2017 4:12 PM DOG WARDEN SPEECH-LANGUAGE PATHOLOGY VIDEOSWALLOW ASSESSMENT EVALUATION SUMMARY Videoswallow [...] hour ). Please follow precautions posted at [facility]. 2:Will continue to follow for ongoing dysphagia [...] on pharyngeal structures. Swallow Recommendations* PO: Pureed, [place] Thick Liquids Swallow Strategies: Supervision During Meals [...] Fed Self Thin Liquid: 1 Tsp, Cup [place] Thick Liquid: 1 Tsp, Cup Other Consistencies: [...] cognitive evaluation with moderate cues. Therapist: Patti MUNOZ/LANDS RESOURCE MANAGER Pager:[phone] Office:[phone] Date: 03/21/2017 * Consuelo Ayala RN - 03/21/2017 3:30 PM DOG WARDEN Patient transported to radiology for a video swallow with this RN and transport. Patient tolerated transport and procedure without any complications. * Sharyn Rutledge - 03/21/2017 1:44 PM DOG WARDEN OCCUPATIONAL THERAPY PROGRESS NOTE Patient Name: Naren Mayfield Room/Bed: VT7981/01 Admitting Diagnosis: subarachnoid hemorrhage Subarachnoid bleed (HCC) [...] Carole Sloan, PT - 03/21/2017 1:44 PM [facility] PHYSICAL THERAPY PROGRESS NOTE MOBILITY: Mobility Progressive [...] Tracie Mitchell MD - 03/21/2017 1:15 PM DOG WARDEN Formatting of this note may be different [...] per neuro team Tracie Mitchell MD Pager [phone] Subjective Naren Mayfield is a 51 y.o. [...] 20,000 Units/ sodium bicarbonate 650 mg(#) PRN (Hanger from Rx) , sodium chloride 0.9% (NS) [...] PO2ART 85 65* Tracie Mitchell MD Pager [phone] * Jeancarlos Menendez MD - 03/21/2017 7:22 AM DOG WARDEN Formatting of this note may be different from the original. Neuroscience Critical Care Progress Note Naren Mayfield Admission Date: 03/09/2017 LOS: 12 days ASSESSMENT/PLAN Patient Active Problem List Diagnosis Date Noted IVH (intraventricular hemorrhage) (HCC) 03/09/2017 Intraparenchymal hematoma of brain (HCC) 03/09/2017 Subarachnoid bleed (HCC) 03/09/2017 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HCC) 03/09/2017 Added automatically from request for surgery [id number] Naren Mayfieldis a 51 y.o.malewith PMH of [...] 130-200 to help with vasospasms - Nimodipine [id number] - Continue Keppra 1500mg daily after dialysis - TCDs Daily - Neuro-ICU monitoring, neurochecks q 2 hrs Sedation/Pain Management: Yes -ICU delirium - Stop Precedex - Fentanyl PRN - Seroquel BID 50mg - Haldol prn - Melatonin 3mg Qhs - Delirium protocol Cardiac: HTN, HLD - SBP goal: 130-180 - MAP goal > 65 - EKG with SR, LVH - 03/11 Restart IMMUNOLOGY SPECIALIST minoxidil and metoprolol BID - 03/11 ECHO [...] Potassium goal >4.0 mEq/L Prophylaxis Review: A) GI:Q4Znccwhg B) Lines:2 peripheral lines and Right arterial [...] 20,000 Units/ sodium bicarbonate 650 mg(#) PRN (Hanger from Rx), sodium chloride 0.9% (NS) IP [...] discussed above. Jeancarlos Menendez MD Date: 03/21/[phone] Associated attestation - Derrell Bowers MD - 03/21/2017 12:29 PM DOG WARDEN Formatting of this note may be different from the original. ATTESTATION I have seen, personally fully evaluated, and discussed patient [facility] Dr [facility]. I agree with the objective findings [...] Faraz Hernandez MD - 03/21/2017 7:00 AM DOG WARDEN Formatting of this note may be different [...] (HCC) Added automatically from request for surgery [id number] IVH (intraventricular hemorrhage) (HCC) Intraparenchymal hematoma of brain (HCC) Subarachnoid bleed (HCC) Continue monitoring for seizure activity - renal keppra dosing Nimotop Continue SBP 130-200 SQ heparin Keppra PT/OT - inpatient rehab - plan for [facility] when able Progress on swallow evaluation. Prophylaxis: A)GI: PPI B) Lines: Yes; Central Line; Indication: Hemodialysis/Plasmapheresis; Type: Implanted subcutaneous access device C) Urinary Catheter: No D) Antibiotic Usage: No E) VTE: Pharmacological prophylaxis; SQ Heparin and Mechanical prophylaxis; Sequential compression device F) Restraints: Patient assessed for need for restraints. Faraz Hernandez MD Please call [phone] with any questions. Associated attestation - Edgar eBe MD - 04/05/2017 10:39 AM DOG WARDEN I have personally seen and examined the patient and developed the management plan as above. * Sharyn Rutledge - 03/20/2017 1:43 PM DOG WARDEN OCCUPATIONAL THERAPY PROGRESS NOTE Patient Name: Naren Mayfield Room/Bed: [place] [address] Admitting Diagnosis: subarachnoid hemorrhage Subarachnoid bleed (HCC) [...] Carole Sloan, PT - 03/20/2017 1:42 PM DOG W[facility]EN PHYSICAL THERAPY PROGRESS NOTE MOBILITY: Mobility Progressive [...] Jeancarlos Menendez MD - 03/20/2017 11:24 AM DOG WARDEN Formatting of this note may be different from the original. Neuroscience Critical Care Progress Note Naren Mayfield Admission Date: 03/09/2017 LOS: 11 days ASSESSMENT/PLAN Patient Active Problem List Diagnosis Date Noted IVH (intraventricular hemorrhage) (HCC) 03/09/2017 Intraparenchymal hematoma of brain (HCC) 03/09/2017 Subarachnoid bleed ([facility]) 03/09/2017 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[facility]) 03/09/2017 Added automatically from request for surgery [id number] Naren Mayfieldis a 51 y.o.malewith PMH of [...] 130-200 to help with vasospasms - Nimodipine [id number] - Continue Keppra 1500mg daily after dialysis - TCDs Daily - Neuro-ICU monitoring, neurochecks q 2 hrs Sedation/Pain Management: Yes -ICU delirium - Stop Precedex - Fentanyl PRN - Seroquel BID 50mg - Haldol prn - Delirium protocol Cardiac: HTN, HLD - SBP goal: 130-180 - MAP goal > 65 - EKG with SR, LVH - 03/11 Restart IMMUNOLOGY SPECIALIST minoxidil and metoprolol BID - 03/11 ECHO [...] Potassium goal >4.0 mEq/L Prophylaxis Review: A) GI:O0Aqekqmz B) Lines:2 peripheral lines and Right arterial [...] 20,000 Units/ sodium bicarbonate 650 mg(#) PRN (Hanger from Rx) Critical Care Vitals: ICP Monitoring: [...] (Last 24 hours): Glucose: (!) 132 (03/20/17 5426) POC Glucose (Download): (!) 150 (03/20/17 8036) Radiology and Other Diagnostic Procedures Review: Reviewed and discussed above. Jeancarlos Menendez MD Date: 03/20/[phone] Associated attestation - Derrell Bowers MD - 03/20/2017 11:49 AM DOG WARDEN Formatting of this note may be different from the original. ATTESTATION I have seen, personally fully evaluated, and discussed patient with Dr Menendez and [facility]. I agree with the objective findings and agree with the plan of care as documented by the resident with the exceptions noted. The patient is critically ill with SAH s/p clipping, EDH s/p evacuation, ESRD c/b metabolic acidosis, pleural effusion and hypoxemia. Restart amlodipine 10 mg daily (IMMUNOLOGY SPECIALIST med), may need addition of clonidine to [...] * Patti Mcclure - 03/20/2017 10:00 AM DOG WARDEN SPEECH-LANGUAGE PATHOLOGY DAILY TREATMENT NOTE Patient seen [...] 5x per week. Therapist: Patti Nava M.S., CCC-Omar/LANDS RESOURCE MANAGER Pager:[phone] Office:[phone] Date: 03/20/2017 * Miguel Angel Jaime MD - 03/20/2017 7:05 AM DOG WARDEN Formatting of this note may be different [...] (HCC) Added automatically from request for surgery [id number] IVH (intraventricular hemorrhage) (HCC) Intraparenchymal hematoma of [...] restraints. Miguel Angel Jaime MD Please call [phone] with any questions. Associated attestation - Edgar Bee MD - 04/05/2017 10:39 AM DOG WARDEN I have personally seen and examined the patient and developed the management plan as above. * Mel Ortiz - 03/19/2017 2:50 PM DOG WARDEN ORTHOTICS/PROSTHETICS Consult Note: NAME: Naren Mayfield ADMISSION DATE: admitted to hospital : 1965 AGE: 51 y.o. ROOM: [place] [address] DOCTOR: Date of Order: 03/19 Date of [...] Tracie Mitchell MD - 03/19/2017 1:28 PM DOG WARDEN Formatting of this note may be different [...] per neuro team Tracie Mitchell MD Pager [phone] Subjective Naren Mayfield is a 51 y.o. [...] 20,000 Units/ sodium bicarbonate 650 mg(#) PRN (Hanger from Rx) Physical Exam Vital Signs: Last [...] PO2ART 96 108* Tracie Mitchell MD Pager [phone] * Portia Johnson, RD - 03/19/2017 11:50 AM [facility] CLINICAL NUTRITION Clinical Nutrition Follow-Up Summary Nutrition Assessment of Patient: Malnutrition Assessment: Does not meet criteria Current Oral Intake: NPO Estimated Calorie Needs: 1351-6079 (30-32 kcal/kg desired wt) Estimated Protein Needs: 111-133g (1.5-1.8g/kg desired wt 74kf) Oral Diet Order: NPO Intake (calories) Daily Average : 1786 kilocalories (3 day EN/Prosource ave 03/16; 80% goal) Intake (protein) Daily Average : 118 grams (3 day EN/Prosource ave ; within goal range) Current EN Order: Novasource Renal @ 40ml/hr with 30ml water bolus [id number] and 3 packs Prosource per day. This [...] with low dose correction insulin on board. LANDS RESOURCE MANAGER to see pt for oral intake [...] carb diabetic diet order with texture per LANDS RESOURCE MANAGER. Intervention / Plan: re-eval of kcal goals with HD Monitor EN tolerance/provision monitor wt trends, labs, meds, GI status monitor for swallow eval and ability to advance diet per LANDS RESOURCE MANAGER Nutrition Diagnosis: Nutrition Diagnosis: Altered GI function Etiology: swallowing deficits s/p SAH/extubation Signs & Symptoms: NPO with EN feeds and plans for LANDS RESOURCE MANAGER eval Goals: EN tolerated and meeting >85% of nutritional needs Time Frame: Throughout Stay Status: Partially met;Ongoing Portia Johnson, TAE * Patti Mcclure - 03/19/2017 11:44 AM DOG WARDEN SPEECH-LANGUAGE PATHOLOGY CLINICAL SWALLOW ASSESSMENT EVALUATION SUMMARY [...] 3-5x per week. Prognosis: Good NOMS Dysphagia Ratin9-Izhnzpcmaz-Qdybev Dysphagia -Not able to swallow safely by [...] evaluation with moderate cues. Therapist:Patti Nava M.S., CCC-L/LANDS RESOURCE MANAGER Pager:[phone] Office:[phone] Date:03/19/2017 * Jeancarlos Menendez MD - 03/19/2017 11:17 AM DOG WARDEN Formatting of this note may be different from the original. 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 Added automatically from request for surgery [id number] Naren Mayfieldis a 51 y.o.malewith PMH of [...] 130-200 to help with vasospasms - Nimodipine [id number] - Continue Keppra 1500mg daily after dialysis - TCDs Daily - Neuro-ICU monitoring, neurochecks q 1 hrs Sedation/Pain Management: Yes -ICU delirium - Stop Precedex - Fentanyl PRN - Seroquel BID 50mg - Haldol prn - Delirium protocol Cardiac: HTN, HLD - SBP goal: 130-180 - MAP goal > 65 - EKG with SR, LVH - 03/11 Restart IMMUNOLOGY SPECIALIST minoxidil and metoprolol BID - 03/11 ECHO [...] Potassium goal >4.0 mEq/L Prophylaxis Review: A) GI:B6Tgtqrpo B) Lines:2 peripheral lines and Right arterial [...] PER MINUTE (03/19 1100) SpO2: 98 % (12/12 1100) O2 Delivery: Nasal Cannula (03/19 1100) [...] 20,000 Units/ sodium bicarbonate 650 mg(#) PRN (Hanger from Rx), sodium chloride 0.9% (NS) IP [...] (Last 24 hours): Glucose: (!) 166 (03/19/17 7948) POC Glucose (Download): (!) 163 (03/19/17 2718) Radiology and Other Diagnostic Procedures Review: Reviewed and discussed above. Jeancarlos Menendez MD Date: 03/19/[phone] Associated attestation - Derrell Bowers MD - 03/19/2017 1:59 PM DOG WARDEN Formatting of this note may be different from the original. ATTESTATION I have seen, personally fully evaluated, and discussed patient [facility] Dr [facility] I agree with the objective findings [...] imaging and laboratory results. Staff name: Derrell Boewrs MD Date: 03/19/2017 * Sharyn Rutledge - 03/19/2017 8:59 AM DOG WARDEN OCCUPATIONAL THERAPY PROGRESS NOTE Patient Name: Naren Mayfield Room/Bed: [place] [address] Admitting Diagnosis: subarachnoid hemorrhage Subarachnoid bleed (HCC) [...] Carole Sloan, PT - 03/19/2017 8:58 AM DOG WARDEN PHYSICAL THERAPY PROGRESS NOTE MOBILITY: Mobility Progressive [...] Angel Jaime MD - 03/19/2017 6:40 AM DOG WARDEN Formatting of this note may be different [...] (HCC) Added automatically from request for surgery [id number] IVH (intraventricular hemorrhage) (HCC) Intraparenchymal hematoma of [...] restraints. Miguel Angel Jaime MD Please call [phone] with any questions. Associated attestation - Edgar Bee MD - 04/05/2017 10:39 AM DOG WARDEN I have personally seen and examined the patient and developed the management plan as above. The patient has made steady progress following extubation and reintubation not required at present. Obstacles remain, vasospasm may interrupt progress, full ICU management. * Tracie Mitchell MD - 03/18/2017 3:42 PM DOG WARDEN Formatting of this note may be different [...] well so far Tracie Mitchell MD Pager [phone] Subjective Naren Mayfield is a 51 y.o. [...] 20,000 Units/ sodium bicarbonate 650 mg(#) PRN (Hanger from Rx) , sodium chloride 0.9% (NS) [...] Intensity Pain Scale 0-10 (Pain 1): 5 (03/17/17 2000) Intake/Output Summary (Last 24 hours) at 03/18/17 [...] PO2ART 108* 96 Tracie Mitchell MD Pager [phone] * Yesenia Yoon, PT - 03/18/2017 9:38 AM DOG WARDEN PHYSICAL THERAPY PROGRESS NOTE MOBILITY: Progressive Mobility [...] * Sharyn Rutledge - 03/18/2017 9:38 AM DOG WARDEN OCCUPATIONAL THERAPY PROGRESS NOTE Patient Name: Naren Mayfield Room/Bed: TH7270/01 Admitting Diagnosis: subarachnoid hemorrhage Subarachnoid bleed (HCC) [...] Jeancarlos Menendez MD - 03/18/2017 7:54 AM DOG WARDEN Formatting of this note may be different from the original. Neuroscience Critical Care Progress Note Naren Mayfield Admission Date: 03/09/2017 LOS: 9 days ASSESSMENT/PLAN Patient Active Problem List Diagnosis Date Noted IVH (intraventricular hemorrhage) (HCC) 03/09/2017 Intraparenchymal hematoma of brain (HCC) 03/09/2017 Subarachnoid bleed (HCC) 03/09/2017 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HCC) 03/09/2017 Added automatically from request for surgery [id number] Naren Mayfieldis a 51 y.o.malewith PMH of HLD, HTN, renal failure, dialysis, and diabetes presenting from OSH after being at dialysis 12/2when he became acutely unresponsive. CT was done [...] 130-180 to help with vasospasms - Nimodipine [id number] - Continue Keppra 1500mg daily after dialysis - TCDs Daily - Neuro-ICU monitoring, neurochecks q 1 hrs Sedation/Pain Management: Yes -ICU delirium - Precedex starterd overnight-will try and come off - Fentanyl PRN - Seroquel BID 50mg - Haldol prn - Delirium protocol Cardiac: HTN, HLD - SBP goal: 130-180 - MAP goal > 65 - EKG with SR, LVH - 03/11 Restart IMMUNOLOGY SPECIALIST minoxidil and metoprolol BID - 03/11 ECHO [...] Potassium goal >4.0 mEq/L Prophylaxis Review: A) GI:L7Nxtngqf B) Lines:2 peripheral lines and Right arterial [...] 20,000 Units/ sodium bicarbonate 650 mg(#) PRN (Hanger from Rx), sodium chloride 0.9% (NS) IP [...] SpO2 94 %. General appearance: well-developed Neurologic: Douglass coma score: E: 2 M: 6 V: [...] discussed above. Jeancarlos Menendez MD Date: 03/18/[phone] Associated attestation - Derrell Bowers MD - 03/18/2017 12:46 PM DOG WARDEN Formatting of this note may be different from the original. ATTESTATION I have seen, personally fully evaluated, and discussed patient with Dr Menendez and the [facility] team. I agree with the objective findings [...] Faraz Hernandez MD - 03/18/2017 6:50 AM DOG WARDEN Formatting of this note may be different [...] (HCC) Added automatically from request for surgery [id number] IVH (intraventricular hemorrhage) (HCC) Intraparenchymal hematoma of [...] for restraints. Faraz Hernandez MD Please call [phone] with any questions. Associated attestation - Edgar Bee MD - 04/05/2017 10:37 AM DOG WARDEN I have personally seen and examined the patient and developed the management plan as above. Reintubation not surprising given the number of variable simultaneously impacting patient's condition. * Nir Timmons MD - 03/17/2017 1:45 PM DOG WARDEN Formatting of this note may be different [...] he can tolerate. Nir Timmons MD Pager [phone] Subjective Naren Mayfield is a 51 y.o. [...] 20,000 Units/ sodium bicarbonate 650 mg(#) PRN (Hanger from Rx) , sodium chloride 0.9% (NS) [...] PO2ART 74* 108* Nir Timmons MD Pager [phone] * Jeancarlos Menendez MD - 03/17/2017 12:05 PM DOG WARDEN Formatting of this note may be different from the original. Neuroscience Critical Care Progress Note Naren Mayfield Admission Date: 03/09/2017 LOS: 8 days ASSESSMENT/PLAN Patient Active Problem List Diagnosis Date Noted IVH (intraventricular hemorrhage) (HCC) 03/09/2017 Intraparenchymal hematoma of brain (HCC) 03/09/2017 Subarachnoid bleed (HCC) 03/09/2017 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[facility]) 03/09/2017 Added automatically from request for surgery [id number] Naren Mayfieldis a 51 y.o.malewith PMH of [...] 130-180 to help with vasospasms - Nimodipine [id number] - Continue Keppra 1500mg daily after dialysis - TCDs Daily - Neuro-ICU monitoring, neurochecks q 1 hrs Sedation/Pain Management: Yes - Precedex stopped - Fentanyl PRN - Assess for delirium daily - Seroquel BID 50mg - Haldol prn Cardiac: HTN, HLD - SBP goal: 130-180 - MAP goal > 65 - EKG with SR, LVH - 03/11 Restart IMMUNOLOGY SPECIALIST minoxidil and metoprolol BID - 03/11 ECHO [...] Potassium goal >4.0 mEq/L Prophylaxis Review: A) GI:E8Aklmgdm B) Lines:2 peripheral lines, place Right arterial line today C) Urinary Catheter:No D) Antibiotic Usage:No E) VTE:SCDs F) Isolation:NA G)Seizures:Keppra I) Restraints: Patient assessed for need for restraints. Disposition/Family:NEICU Primary service:RADHA Consults: NEICU, Renal, Pulmonary __ SUBJECTIVE Naren [...] 20,000 Units/ sodium bicarbonate 650 mg(#) PRN (Hanger from Rx), sodium chloride 0.9% (NS) IP [...] 24 hours): FSBS (Manual): (!) 127 (03/16/17 2009) Glucose: (!) 142 (03/17/17 0413) POC Glucose (Download): (!) 147 (03/17/17 0907) Radiology and Other Diagnostic Procedures Review: Reviewed and discussed above. Jeancarlos Menendez MD Date: 03/17/[phone] Associated attestation - Bakari Wu MD - 03/17/2017 9:11 PM DOG WARDEN Formatting of this note may be different [...] possible cerebral vasospasm - observe closely Possible CHAMBER WORKER infection His agitation is also partly driven [...] Calista Espana MD - 03/17/2017 8:01 AM DOG WARDEN Formatting of this note may be different [...] (HCC) Added automatically from request for surgery [id number] IVH (intraventricular hemorrhage) (HCC) Intraparenchymal hematoma of [...] for restraints. Calista Espana MD Please call [phone] with any questions. * Nir Timmons MD - 03/16/2017 5:19 PM DOG WARDEN Formatting of this note may be different [...] computer is accurate. Nir Timmons MD Pager [phone] Subjective Naren Mayfield is a 51 y.o. [...] 20,000 Units/ sodium bicarbonate 650 mg(#) PRN (Hanger from Rx), sodium chloride 0.9% (NS) IP [...] PO2ART 145* 92 Nir Timmons MD Pager [phone] * Calista Espana MD - 03/16/2017 8:11 AM DOG WARDEN Formatting of this note may be different [...] (HCC) Added automatically from request for surgery [id number] IVH (intraventricular hemorrhage) (HCC) Intraparenchymal hematoma of [...] for restraints. Calista Espana MD Please call [phone] with any questions. * Lul Bakari - 03/16/2017 6:35 AM DOG WARDEN Formatting of this note may be different from the original. Neuroscience Critical Care Progress Note Narne Chaparro Admission Date: 03/09/2017 LOS: 7 days [...] 03/09/2017 Added automatically from request for surgery [id number] Naren Dickens a 51 y.o.malewith PMH of [...] 130-200 to help with vasospasms - Nimodipine [id number] - Continue Keppra 1500mg daily after dialysis [...] EKG with SR, LVH - 03/11 Restart IMMUNOLOGY SPECIALIST minoxidil and metoprolol BID - 03/11 ECHO [...] Potassium goal >4.0 mEq/L Prophylaxis Review: A) GI:P4Dbnuezh B) Lines:Yes; Arterial Line; Indication: Continuous BP [...] 20,000 Units/ sodium bicarbonate 650 mg(#) PRN (Hanger from Rx), sodium chloride 0.9% (NS) IP [...] SpO2 96 %. General appearance: well-developed Neurologic: Douglass coma score: E: 2 M: 6 V: [...] hours): POC Glucose (Download): (!) 162 (03/16/17 4240) Radiology and Other Diagnostic Procedures Review: Reviewed and discussed above. Phi Velasquez MD Date: 03/16/[phone] * Portia Johnson, RD - 03/15/2017 2:18 PM DOG WARDEN CLINICAL NUTRITION Clinical Nutrition Follow-Up Summary Nutrition [...] Renal @ 40ml/hr with 30ml water bolus [id number] and 3 packs Prosource per day. This provides 2100 kcal, 132 g protien and 871ml free water. at goal. Comment: 51 yo M admitted /2 from OSH after being acutely unresponsive during [...] available this afternoon, says pt eating well IMMUNOLOGY SPECIALIST and eating whatever he wanted though he [...] carb diabetic diet order with texture per LANDS RESOURCE MANAGER. Intervention / Plan: obtained subjective data monitor En tolerance/provision monitor for swallow eval and ability to advance diet per LANDS RESOURCE MANAGER monitor wt trends, labs, meds, GI [...] * Saman Joshi - 03/15/2017 2:07 PM DOG WARDEN Patient disconnected from Video EEG Monitoring without complications. * Yesenia Yoon, PT - 03/15/2017 1:30 PM DOG WARDEN PHYSICAL THERAPY ASSESSMENT MOBILITY: Progressive Mobility Level: [...] * Sharyn Rutledge - 03/15/2017 1:30 PM DOG WARDEN OCCUPATIONAL THERAPY ASSESSMENT NOTE Patient Name: Naren Mayfield Room/Bed: [place] [address] Admitting Diagnosis: subarachnoid hemorrhage Subarachnoid bleed (HCC) Mobility Progressive Mobility Level: Sit on edge of bed Level of Assistance: Assist X2 Assistive Device: None Time Tolerated: 11-30 minutes Activity Limited By: Weakness;Fatigue Subjective Pertinent Dx per Physician: 51 y.o. male with PMH of HLD, HTN, renal failure, dialysis, and diabetes presenting from OS after being at dialysis 03/09 when he [...] Home Equipment: Cane Prior Function Level Of [place]: Independent with ADLs and functional transfers Lives [...] 0-100% Score: 92.44 CMS G Code Modifier: G-Codes: Self-care G8987 Current Status: 80-99% Impairment [...] Jeancarlos Menendez MD - 03/15/2017 1:01 PM DOG WARDEN Formatting of this note may be different from the original. 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 Added automatically from request for surgery [id number] Naren Mayfieldis a 51 y.o.malewith PMH of [...] 130-160 to help with vasospasms - Nimodipine [id number] - Continue Keppra 1500mg daily after dialysis [...] EKG with SR, LVH - 03/11 Restart IMMUNOLOGY SPECIALIST minoxidil and metoprolol BID - 03/11 ECHO [...] Potassium goal >4.0 mEq/L Prophylaxis Review: A) GI:S2Khxqxqu B) Lines:Yes; Arterial Line; Indication: Continuous BP [...] 20,000 Units/ sodium bicarbonate 650 mg(#) PRN (Hanger from Rx), sodium chloride 0.9% (NS) IP [...] SpO2 92 %. General appearance: well-developed Neurologic: Douglass coma score: E: 2 M: 6 V: [...] discussed above. Jeancarlos Menendez MD Date: 03/15/[phone] Associated attestation - Bakari Wu MD - 03/15/2017 6:36 PM DOG WARDEN Formatting of this note may be different [...] discussed patient with Dr[facility]. I agree with the objective findings [...] Marta Soto OT - 03/14/2017 2:42 PM DOG WARDEN OCCUPATIONAL THERAPY NO TREATMENT NOTE The patient [...] Tracie Mitchell MD - 03/14/2017 1:29 PM DOG WARDEN Formatting of this note may be different [...] stable on treatment Tracie Mitchell MD Pager [phone] Subjective Naren Mayfield is a 51 y.o. [...] 20,000 Units/ sodium bicarbonate 650 mg(#) PRN (Hanger from Rx), sodium chloride 0.9% (NS) IP [...] PO2ART 112* 109* Tracie Mitchell MD Pager [phone] * Jeancarlos Menendez MD - 03/14/2017 12:41 PM DOG WARDEN Formatting of this note may be different from the original. 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 Added automatically from request for surgery [id number] Naren Dickens a 51 y.o.malewith PMH of [...] 130-160 to help with vasospasms - Nimodipine [id number] - Phenylephrine as needed - Increase Keppra [...] EKG with SR, LVH - 03/11 Restart IMMUNOLOGY SPECIALIST minoxidil and metoprolol BID - 03/11 ECHO [...] Potassium goal >4.0 mEq/L Prophylaxis Review: A) GI:C3Bzidros B) Lines:Yes; Arterial Line; Indication: Continuous BP [...] mL IV drip (std conc) Stopped (03/13/17 2609) PRN and Respiratory Meds:acetaminophen Q4H PRN, albuterol 0.5% Q4H PRN, fentaNYL citrate PF Q1H PRN, ipratropium bromide Q4H PRN, labetalol (NORMODYNE; TRANDATE) injection Q1H PRN, ondansetron Q6H PRN, pancrelipase 20,000 Units/ sodium bicarbonate 650 mg(#) PRN (Hanger from Rx), sodium chloride 0.9% (NS) IP [...] SpO2 99 %. General appearance: well-developed Neurologic: Douglass coma score: E: 2 M: 6 V: [...] discussed above. Jeancarlos Menendez MD Date: 03/14/[phone] Associated attestation - Bakari Wu MD - 03/14/2017 9:51 PM DOG WARDEN Formatting of this note may be different from the original. NEICU Attending Imaging Tech Attestation Naren Mayfield is a 51 y.o. [...] * Sydney Andrade - 03/14/2017 9:05 AM DOG WARDEN EEG signals are clean of artifact and visible. Video was visualized and recording. Audio recording was checked and functioning. The VEEG system is on- line. Central monitoring station is functioning appropriately. The event button is operational and within reach of the patient and/or patient' s family. Electrode impedances below 5 kOhms * Faraz Hernandez MD - 03/14/2017 7:10 AM DOG WARDEN Formatting of this note may be different [...] (HCC) Added automatically from request for surgery [id number] IVH (intraventricular hemorrhage) (HCC) Intraparenchymal hematoma of [...] for need for restraints. Faraz Hernandez MD [id number] Please call [phone] with any questions. Associated attestation - Edgar Bee MD - 04/05/2017 10:36 AM DOG WARDEN I have personally seen and examined the patient and developed the management plan as above. * Tracie Mitchell MD - 03/13/2017 4:54 PM DOG WARDEN Formatting of this note may be different [...] for dialysis needs. Tracie Mitchell MD Pager [phone] Subjective Naren Mayfield is a 51 y.o. [...] 20,000 Units/ sodium bicarbonate 650 mg(#) PRN (Hanger from Rx) Physical Exam Vital Signs: Last Filed In 24 Hours Vital Signs: 24 Hour Range BP: 115/50 (03/13 0200) Temp: 37.7 C (99.9 F) (03/13 1452) Pulse: 87 (03/13 145) Respirations: 28 PER MINUTE (03/13 145) SpO2: [...] Recent Labs 03/10/17204903/11/17 0355 03/12/17 0344 03/13/17 034 NA 133* 135* 135* 136* K 4.1 [...] PO2ART 99 112* Tracie Mitchell MD Pager [phone] * Portia Johnson, RD - 03/13/2017 3:54 PM DOG WARDEN CLINICAL NUTRITION Clinical Nutrition Follow-Up Summary Nutrition [...] combination of renal-dialysis and diabetic consistent carb [id number] (60g CHO/meal). Intervention / Plan: attempted to obtain subjective data Monitor labs, weight trends, EN intake/tolerance, GI health Nutrition Diagnosis: Nutrition Diagnosis: Inadequate protein-energy intake Etiology: SAH, s/p intubation Signs & Symptoms: trophic EN feeds Goals: EN tolerated and meeting >75% of nutritional needs Time Frame: Within 72 Hours Status: Ongoing Portia Johnson RD * Saman Joshi - 03/13/2017 3:07 PM DOG WARDEN EEG electrodes were successfully placed on pt's [...] Carole Sloan, PT - 03/13/2017 11:45 AM DOG WARDEN PHYSICAL THERAPY NOTE Patient's case reviewed and discussed during interdisciplinary rounds. Patient is currently minimally responsive and unable to participate in purposeful physical therapy. Physical therapy will continue to follow and provide intervention as indicated. Therapist: Carole Sloan, PT Date: 03/13/2017 * Marcos Solorzano MD - 03/13/2017 11:14 AM DOG WARDEN Formatting of this note may be different [...] 20,000 Units/ sodium bicarbonate 650 mg(#) PRN (Hanger from Rx) Radiology Pertinent radiology reviewed. Caroline Davila DO Pulmonary/Critical Care Pager # [phone] 03/13/2017 * Marta Soto OT - 03/13/2017 10:05 AM DOG WARDEN OCCUPATIONAL THERAPY NO TREATMENT NOTE The patient was not seen due to: discussed with RN. Pt with worsened exam, pt is not following commands and not able to participate in meaningful therapy at this time. Will continue to follow. Attempted to see patient 1 time(s) Therapist: Marta Soto OT Date: 03/13/2017 * Jeancarlos Menendez MD - 03/13/2017 8:09 AM DOG WARDEN Formatting of this note may be different from the original. 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 Added automatically from request for surgery [id number] Naren Mayfieldis a 51 y.o.malewith PMH of [...] 130-160 to help with vasospasms - Nimodipine [id number] - Phenylephrine - Keppra 1000mg daily after [...] EKG with SR, LVH - 03/11 Restart IMMUNOLOGY SPECIALIST minoxidil and metoprolol BID - 03/11 ECHO [...] Potassium goal >4.0 mEq/L Prophylaxis Review: A) GI:F4Nansxvq B) Lines:Yes; Arterial Line; Indication: Continuous BP [...] kg (239 lb 13.8 oz) (03/12 160) BP: (115)/(50) ABP: (106-155)/(41-131) ART MAP (Calculated) [...] IV drip Stopped (03/13/17 0610 ) phenylephrine (ARILNE-SYNEPHRINE) 10 mg in sodium chloride 0.9% (NS) 250 mL IV drip (std conc) PRN and Respiratory Meds:acetaminophen Q4H PRN, albuterol 0.5% Q4H PRN, fentaNYL citrate PF Q1H PRN, hydrALAZINE Q6H PRN, ipratropium bromide Q4H PRN, labetalol (NORMODYNE; TRANDATE) injection Q15 MIN PRN, ondansetron Q6H PRN, pancrelipase 20,000 Units/ sodium bicarbonate 650 mg(#) PRN (Hanger from Rx) Critical Care Vitals: ICP Monitoring: [...] SpO2 100 %. General appearance: well-developed Neurologic: Douglass coma score: E: 1 M: 4 V: [...] discussed above. Jeancarlos Menendez MD Date: 03/13/[phone] Associated attestation - Bakari Wu MD - 03/13/2017 6:19 PM DOG WARDEN Formatting of this note may be different [...] discussed patient with Dr. Menendez and the [facility] team. I agree with the objective [...] Angel Jaime MD - 03/13/2017 7:03 AM DOG WARDEN Formatting of this note may be different [...] (HCC) Added automatically from request for surgery [id number] IVH (intraventricular hemorrhage) (HCC) Intraparenchymal hematoma of [...] need for restraints. Miguel Angel Jaime MD [id number] Please call [phone] with any questions. 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 Outcome uncertain, but we will continue full ICU and neurosurgical management. * Bakari Wu - 03/12/2017 11:05 PM DOG WARDEN Formatting of this note may be different [...] List Diagnosis Date Noted IVH (intraventricular hemorrhage) ([facility]) 03/09/2017 Intraparenchymal hematoma of brain ([facility]) 03/09/2017 Subarachnoid bleed ([facility]) 03/09/2017 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[facility]) 03/09/2017 Added automatically from request for surgery [id number] Naren Dickens a 51 y.o.malewith PMH of [...] 1000mg daily after dialysis daily - Nimotop [id number] - Consider 1:1 fluid replacement - TCDs Daily - Neuro-ICU monitoring, neurochecks q 1 hrs Sedation/Pain Management: Yes - Precedex drip for sedation - Fentanyl PRN - Assess for delirium daily Cardiac: HTN, HLD - SBP goal: 120-160 - MAP goal > 65 - Cardene drip to meet SBP goal, PRN hydralazine, labetalol - EKG with SR, LVH - 03/11 Restart IMMUNOLOGY SPECIALIST minoxidil and metoprolol BID - 03/11 ECHO [...] Potassium goal >4.0 mEq/L Prophylaxis Review: A) GI:V9Vcgjpjy B) Lines:Yes; Arterial Line; Indication: Continuous BP [...] 20,000 Units/ sodium bicarbonate 650 mg(#) PRN (Hanger from Rx) Critical Care Vitals: ICP Monitoring: [...] appearance: well-developed, cooperative and mild distress Neurologic: Douglass coma score: E: 3 M: 6 V: [...] 0344) POC Glucose (Download): (!) 139 (03/12/17 4154) Radiology and Other Diagnostic Procedures Review: all noted Bakari Wu Date: 03/12/[phone] * Nicolas Mclaughlin MD - 03/12/2017 5:00 PM DOG WARDEN Brief Pulmonary Progress Note Due to required [...] Tracie Mitchell MD - 03/12/2017 4:52 PM DOG WARDEN Formatting of this note may be different [...] for dialysis needs Tracie Mitchell MD Pager [phone] Subjective Naren Mayfield is a 51 y.o. [...] 20,000 Units/ sodium bicarbonate 650 mg(#) PRN (Hanger from Rx), sodium chloride 0.9% (NS) IP [...] PO2ART 132* 72* Tracie Mitchell MD Pager [phone] * Marta Soto, OT - 03/12/2017 9:44 AM DOG WARDEN OCCUPATIONAL THERAPY NO TREATMENT NOTE The patient was not seen due to: pt still with sheaths in place. Will follow up tomorrow as appropriate. Therapist: Marta Soto, OT Date: 03/12/2017 * Faraz Hernandez MD - 03/12/2017 6:49 AM DOG WARDEN Formatting of this note may be different [...] (HCC) Added automatically from request for surgery [id number] IVH (intraventricular hemorrhage) (HCC) Intraparenchymal hematoma of [...] for need for restraints. Faraz Hernandez MD 8201 Please call [phone] with any questions. Associated attestation - Edgar Bee MD - 04/05/2017 10:33 AM DOG WARDEN I have personally seen and examined the patient and developed the management plan as above. * Geoffrey Guerra, ROLO - 03/12/2017 6:44 AM DOG WARDEN Formatting of this note may be different from the original. 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 Added automatically from request for surgery [id number] Naren Mayfieldis a 51 y.o.malewith PMH of [...] 1000mg daily after dialysis daily - Nimotop [id number] - Consider 1:1 fluid replacement - TCDs Daily - Neuro-ICU monitoring, neurochecks q 1 hrs Sedation/Pain Management: Yes - Precedex drip for sedation - Fentanyl PRN - Assess for delirium daily Cardiac: HTN, HLD - SBP goal: 120-160 - MAP goal > 65 - Cardene drip to meet SBP goal, PRN hydralazine, labetalol - EKG with SR, LVH - 03/11 Restart IMMUNOLOGY SPECIALIST minoxidil and metoprolol BID - 03/11 ECHO [...] Potassium goal >4.0 mEq/L Prophylaxis Review: A) GI:[id number] B) Lines:Yes; Arterial Line; Indication: Continuous BP [...] consulted teams Geoffrey Guerra, ROLO Date: 03/12/[phone] * Bakari Wu - 03/11/2017 6:00 PM DOG WARDEN Formatting of this note may be different [...] 03/09/2017 Added automatically from request for surgery [id number] Naren Mayfield is a 51 y.o. male [...] 1000mg daily after dialysis daily - Nimotop [id number] - Consider 1:1 fluid replacement - TCDs [...] EKG with SR, LVH - 03/11 Restart IMMUNOLOGY SPECIALIST minoxidil and metoprolol BID - ECHO this [...] Potassium goal >4.0 mEq/L Prophylaxis Review: A) GI:[id number] B) Lines:Yes; Arterial Line; Indication: Continuous BP [...] Other Diagnostic Procedures Review: all noted Bakari Wintersneeraj Date: 03/11/[phone] * Carole Sloan, PT - 03/11/2017 3:31 PM DOG WARDEN PHYSICAL THERAPY NOTE Discussed case with bedside RN, patient is currently requiring increased oxygen demands and not appropriate for physical therapy intervention. Physical therapy will continue to follow and provide intervention as indicated. Therapist: Carole Sloan, PT Date: 03/11/2017 * Marta Soto, OT - 03/11/2017 3:05 PM DOG WARDEN OCCUPATIONAL THERAPY NO TREATMENT NOTE The patient was not seen due to: getting bedside test. Still on 80% FiO2, but likely to wean later per RN. Will follow up tomorrow. Therapist: Marta Soto, OT Date: 03/11/2017 * Melisa Dailey, RT - 03/11/2017 8:22 AM DOG WARDEN No wean till after dialysis per RN team * Faraz Hernandez MD - 03/11/2017 6:56 AM DOG WARDEN Formatting of this note may be different [...] (HCC) Added automatically from request for surgery [id number] IVH (intraventricular hemorrhage) (HCC) Intraparenchymal hematoma of [...] for need for restraints. Faraz Hernandez MD 7041 Please call [phone] with any questions. * Geoffrey Guerra, PROGRAM SPECIALIST - 03/11/2017 6:11 AM DOG WARDEN Formatting of this note may be different from the original. 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 male [...] 1000mg daily after dialysis daily - Nimotop [id number] - Consider 1:1 fluid replacement - TCDs [...] EKG with SR, LVH - 03/11 Restart IMMUNOLOGY SPECIALIST minoxidil and metoprolol BID - ECHO this [...] Potassium goal >4.0 mEq/L Prophylaxis Review: A) GI:X1Zjkzqkk B) Lines:Yes; Arterial Line; Indication: Continuous BP [...] 23 PER MINUTE (03/110) SpO2: 100 % (03/110) O2 Delivery: Endotracheal Tube (Oral) (03/11 500) [...] of care with consulted teams. Geoffrey Guerra, PROGRAM SPECIALIST Date: 03/11/[phone] * Tonia Lopes MD - 03/10/2017 9:02 PM DOG WARDEN Formatting of this note may be different [...] Moi Sol RN - 03/10/2017 8:58 PM DOG WARDEN Patient came from OR and arrived in [...] RT and resource nurse. * Saeid Thompson, TENZIN - 03/10/2017 8:42 PM DOG WARDEN Patient transported to CT on the monitor, on the vent with RT. Physician with the patient during transport. Transported without incident. After CT scan the patient was transported to OR with anesthesia assuming care. * Courtney Dale MD - 03/10/2017 5:01 PM DOG WARDEN Pulmonary service consulted for L pleural effusion at 8:30 am. Unable to see the patient all day as he has been in the OR since 7 am and has not returned. Pulmonary consult service will see the patient in the AM. Please page [phone] if stat consult required overnight. Courtney Dale MD, M.Sc. PGY4 Pulmonary and Critical Care Fellow Pager: [phone] * Tracie Mitchell MD - 03/10/2017 1:51 PM DOG WARDEN Renal service consulted for ESRD. Unable to see patient as he has been in the OR since morning. Will see patient in AM unless acutely needed. Please obtain a BMP after return from OR * Yesenia Yoon, PT - 03/10/2017 9:31 AM DOG WARDEN PHYSICAL THERAPY NOTE Physical therapy orders received and appreciated. Patient to OR today for right pterional craniotomy for clipping of MCA aneurysm. PT will follow up 03/11 and provide physical therapy intervention as indicated. Therapist: Yesenia Yoon, PT Date: 03/10/2017 * Brandy Posada, OT - 03/10/2017 9:10 AM DOG WARDEN OCCUPATIONAL THERAPY NOTE OT orders received and appreciated. Pt to OR for procedure this date. OT will follow up tomorrow for evaluation/treatment as indicated. Therapist: Brandy Posada OTR/Omar [id number] Date: 03/10/2017 * Moi Sol, RN - 03/10/2017 8:25 AM DOG WARDEN Patient started to be prepared for OR at 0730. Patient left room at 0815. Patient taking via bed with TURNER MACHINE's and RT. No issues during this process. This RN was not able to get a full assessment done before the patient was taken to OR. * Rosie Tanner APRN - 03/10/2017 6:32 AM DOG WARDEN Formatting of this note may be different from the original. Neuro Critical Care Progress Note Naren Mayfield Admission Date: 03/09/2017 LOS: 1 day Full Code ASSESSMENT/PLAN Patient Active Problem List Diagnosis Date Noted IVH (intraventricular hemorrhage) (HCC) 03/09/2017 Intraparenchymal hematoma of brain (HCC) 03/09/2017 Subarachnoid bleed (HCC) 03/09/2017 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HCC) 03/09/2017 Added automatically from request for surgery [id number] Naren Mayfield is a 51 y.o. male [...] EKG with SR, LVH - Will add IMMUNOLOGY SPECIALIST medications when verified - ECHO this AM [...] goal >4.0 mEq/L Prophylaxis Review: A) GI: [id number] B) Lines: Yes; Arterial Line; Indication: Continuous [...] Vital Signs: 24 Hour Range BP: 127/89 (12/02 2030) ABP: 132/67 (03/10 455) ART MAP (Calculated) mm H mm Hg (03/09 1930) Temp: 36.6 C (97.8 F) (03/10 0000) Pulse: 68 (03/10 455) Respirations: 20 PER MINUTE (03/10 442) SpO2: 98 % (03/10 455) O2 Delivery: Endotracheal Tube (Oral) (03/10 200) Height: 172.7 cm (68") (03/09 1525) Weight: [...] procedures reviewed. Rosie Tanner APRN Date: 03/10/[phone] I spent 65 minutes managing the care [...] Tonia Lopes MD - 03/09/2017 6:22 PM DOG WARDEN Formatting of this note may be different from the original. @DATE@ Naren Lopes MD Neuro ICU Progress Note Subjective: [...] Dayan Rollins RN - 03/09/2017 4:43 PM DOG WARDEN Sedation physician present in room. Recent vitals and patient condition reviewed between sedating physician and nurse. Reassessment completed. Determination made to proceed with planned sedation. * Leslye Park RN ([place]) - 03/09/2017 3:30 PM DOG WARDEN Pt arrived to room [id number] via EMS intubated and sedated. VSS, no [...] Faraz Hernandez MD - 03/10/2017 8:00 AM DOG WARDEN Formatting of this note may be different [...] A POS Faraz Hernandez MD Neurosurgery Resident [id number] Please call [phone] with any questions. Associated attestation - Edgar Bee MD - 04/05/2017 10:28 AM DOG WARDEN Complex ruptured aneurysm, not well-amenable to endovascular approach. Patient is not a healthy man at baseline, with multiple comorbidities, on dialysis, however, surgery is preferred to secure the aneurysm to protect from rehemorrhage. Family understands and elects to proceed. * Braden De Leon MD - 03/09/2017 3:30 PM DOG WARDEN Formatting of this note may be different [...] q4 - discussed with staff Please page [phone] with any questions Devon Castro MD [id number] __ Chief Complaint: MCA aneurysm History of [...] Dima Glasgow RN - 03/26/2017 9:00 AM DOG WARDEN Associated Order(s): HEMODIALYSIS INPATIENT; HEMODIALYSIS DATE 847: Consent confirmed, assessment complete and charted. Patient's LFA AV Fistula was accessed with two #15 fistula needles upon the first attempt. Treatment was started at this time. 1247: Blood returned, needles de-cannulated, bleeding stopped in <10min. Treatment completed at this time. * Dharmesh Navarro RN - 03/23/2017 3:22 PM DOG WARDEN Associated Order(s): HEMODIALYSIS INPATIENT; HEMODIALYSIS DATE Arrived at patient room C 5112 and treatment started at 1040 am. Vital signs stable. Patient tolerating treatment well. Treatment complete at 1444 pm. Vital signs stable. Smoaks removed from L AV fistula and site healed. Report given to unit nurse. Left patient in room C 5112 in stable condition. * Hetal Roberts RN - 03/21/2017 8:44 AM DOG WARDEN Associated Order(s): HEMODIALYSIS INPATIENT; HEMODIALYSIS DATE 629 Arrived in Pt's RM [id number] with portable R/O and diaysis machine/supply cart. ICU staff cleaning Pt from BM. [id number] R/O rinsing/cool down cycle in progress. Pt [...] Geoffrey Farias RN - 03/19/2017 11:57 AM DOG WARDEN Associated Order(s): HEMODIALYSIS INPATIENT; HEMODIALYSIS DATE Hemodialysis [...] Mihai Aly RN - 03/18/2017 2:45 PM DOG WARDEN Associated Order(s): HEMODIALYSIS INPATIENT; HEMODIALYSIS DATE Formatting [...] Vernell Corbin MD - 03/18/2017 1:01 PM DOG WARDEN VIDEO EEG REPORT Name: Naren Mayfield Date [...] on the right side. Vernell Corbin MD Ediphone Operator of Neurology [facility] * Bakari Wu - 03/16/2017 9:43 PM DOG WARDEN Procedure(s): THORACENTESIS ED Procedure Note - Attempted [...] Mihai Aly RN - 03/16/2017 2:38 PM DOG WARDEN Associated Order(s): HEMODIALYSIS INPATIENT; HEMODIALYSIS DATE Formatting [...] bed. 1530 B/P in the 200s systolic. animal assistant giving meds. UF increased to 3.[address] Cardona. 1615 BP remains above 200 systolic. ICU nurse addressing B/P. 1745 Dialysis complete. UF total was 4 liters. Phi DAVE given report. * Vernell Corbin MD - 03/15/2017 9:22 AM DOG WARDEN VIDEO EEG REPORT Name: Naren Mayfield Date [...] on the right side. Vernell Corbin MD Ediphone Operator of Neurology [facility] * Marcos Solorzano MD - 03/14/2017 4:26 PM DOG WARDEN Procedure(s): THORACENTESIS ED Pre-Procedure Diagnose(s): Pleural effusion [...] Vernell Corbin MD - 03/14/2017 9:22 AM DOG WARDEN VIDEO EEG REPORT Name: Naren Mayfield Date [...] on the right side. Vernell Corbin MD Ediphone Operator of Neurology [facility] * Germaine Covarrubias, RN - 03/14/2017 7:27 AM DOG WARDEN Associated Order(s): HEMODIALYSIS INPATIENT; HEMODIALYSIS DATE micropaleontologist in patient's room. Patient sedated and on [...] Vernell Corbin MD - 03/13/2017 5:44 PM DOG WARDEN EEG REPORT Date of service: 03/13/2017 Name: [...] of skull defect/craniotomy on the right side. eVrnell Corbin MD Ediphone Operator of Neurology [facility] * Vandana Delaney RN - 03/12/2017 12:33 PM DOG WARDEN Associated Order(s): HEMODIALYSIS INPATIENT; HEMODIALYSIS DATE 1233- [...] expected fluid removed from pt during tx. PrimaryTENZIN updated on pt. Pt remains in room [id number] at this time. * Bailee Gann RN - 03/11/2017 10:09 AM DOG WARDEN Associated Order(s): HEMODIALYSIS INPATIENT 0900 Arrived in [id number] to set up for dialysis. Assessment completed and documented. Care of pt, respirator and all lines remains with his primary DRAFTER MARINETENZIN Jean. Left AVF assessed and found to [...] and paper tape. Report given to primary DRAFTER MARINETENZIN Jean. * Dharmesh Navarro RN - 03/10/2017 9:10 PM DOG WARDEN Associated Order(s): HEMODIALYSIS DATE Arrived on unit and contacted unit nurse for patient at 2014 pm. Patient had cranial bleed and sent to CT and then to OR for second time. Community Action Worker contacted and said patient may be done the next morning. Unit nurse also said patient may still have needles from outpatient dialysis unit in fistula. Patient already in OR. * Maxim Chauhan MD - 03/10/2017 9:45 AM DOG WARDEN Pre-Procedure Diagnose(s): Aneurysm rupture of middle cerebral [...] a secure HIPAA-compliant network. Maxim Chauhan MD Palliative Care Nurse Practitioner [facility] Department of Neurology in this encounter Consult Notes * Aleksandr Young MD - 03/19/2017 10:34 AM DOG WARDEN Associated Order(s): CONSULT REHABILITATION MEDICINE PHYSICIAN Formatting of this note may be different from the original. Physical Medicine & Rehabilitation Consult Note Date of Service: 03/19/2017 Naren Mayfield is a 51 y.o. male. : 1965 Primary Insurance: MEDICARE Secondary Insurance: [facility] [place]ICAID [place] Tertiary Insurance: Financial Class: Medicare Date of [...] a 51 y.o. male admitted to [facility] on 03/09/2017 with the following issues: [...] Cognitive impairment Pt would benefit from formal LANDS RESOURCE MANAGER cognitive evaluation to determine specific domains of cognitive dysfunction at this or next level of care. Aleksandr Young MD Rehab Consult Pager: [phone] History of Present Illness Hospital Course: Mr. Naren Mayfield is a 51 yo M with a hx of DM, HTN, HLD and renal failure on HD transferred to [facility] from OSH on 03/09 with concern [...] CRANIOTOMY performed by Edgar Bee MD at [facility] OR/Periop INTRACRANIAL ANEURYSM REPAIR Right 03/10/2017 Rt pterional craniotomy for clipping of MCA aneurysm performed by Edgar Bee MD at [facility] OR/Periop Family\\Social History Social History Social History [...] 20,000 Units/ sodium bicarbonate 650 mg(#) PRN (Hanger from Rx), sodium chloride 0.9% (NS) IP [...] C (99 F) (03/19 0800) Pulse: 78 (12/12 1000) Respirations: 19 PER MINUTE (03/19 1000) [...] Richard Mackenzie MD - 03/19/2017 10:02 PM [facility] Rehabilitation Medicine Attending Physician Attestation: Agree with [...] complexity and goals with PT, OT, and LANDS RESOURCE MANAGER for acute inpatient rehabilitation. Recommend continued therapies, while the primary team continues to monitor and manage acute concerns for the patient while addressing dysphagia and adequate nutritional access. Discussed with the patient and will discuss with our information coordinator. Will continue to follow for medical stability/ appropriateness for discharge. Thank you for this consultation. Please call with questions/concerns. I personally performed rubin portions of the history and exam. I discussed the case with the resident and concur with the resident's documentation of history, physical assessment and treatment plan unless otherwise noted. Richard Mackenzie MD * Janeen Morse - 03/12/2017 3:10 PM DOG WARDEN Associated Order(s): CONSULT DIETITIAN CLINICAL NUTRITION Clinical Nutrition Assessment Summary Nutrition Assessment of Patient: BMI Categories Adult: Obesity Class II: 35-39.9 Malnutrition Assessment: (pending subjective information) Current Oral Intake: NPO Estimated Calorie Needs: 1850-2220kcal (25-30kcal/kg desired wt 74kg) Estimated Protein Needs: 111-133g (1.5-1.8g/kg desired wt 74kf) Oral Diet Order: NPO Current EN Order: Novasource Renal @ 40ml/hr with 30ml water bolus [id number]. This provides 1920kcal, 87g, and 871ml free [...] Unable to see pt today, RD internal review and audit compliance to follow up tomorrow. Pt received dialysis [...] of renal- dialysis and diabetic consistent carb 4154-6270 (60g CHO/meal). Intervention / Plan: Consult complete for EN recommendations Monitor labs, weight trends, EN intake/tolerance, GI health Will obtain further subjective data on follow up Nutrition Diagnosis: Nutrition Diagnosis: Inadequate protein-energy intake Etiology: SAH, s/p intubation Signs & Symptoms: 2 days w/o EN support Goals: EN tolerated and meeting >75% of nutritional needs Time Frame: Within 72 Hours Janeen Morse, Integrated Logistics Operations Manager *[id number] Associated attestation - Crystal Mayen RD - 03/12/2017 3:21 PM DOG WARDEN Agree with internal review and audit compliance's initial assessment/recommendations as summarized. Malnutrition assessment and updated recommendations to be completed at next visit as feasible. If patient unable to extubate soon, hypocaloric/high protein feeding goals should be initiated. Crystal Mayen RD, LD, CNSC *[id number] * Yuly Meléndez MD - 03/11/2017 5:02 PM DOG WARDEN Associated Order(s): CONSULT PULMONARY/CRITICAL CARE PHYSICIAN Formatting [...] Pertinent radiology reviewed. Nicolas Mclaughlin MD Pager [phone] * Tracie Mitchell MD - 03/10/2017 10:43 AM DOG WARDEN Associated Order(s): CONSULT NEPHROLOGY PHYSICIAN Formatting of [...] - Daily weights Tracie Mitchell MD Pager [phone] History Reason for Consult: ESRD HPI: Naren [...] 1.5 years ago and he dialyses in [place], [place]. He usually dialyses T// but dialysed 4 times last week as he was way above dry weight. Past Medical History: Diagnosis Date DM (diabetes mellitus) (HCC) HLD (hyperlipidemia) HTN (hypertension) Renal failure Past Surgical History: Procedure Laterality Date INTRACRANIAL ANEURYSM REPAIR N/A 03/10/2017 REPAIR ANEURYSM CRANIOTOMY performed by Edgar Bee MD at [facility] OR/Periop INTRACRANIAL ANEURYSM REPAIR Right 03/10/2017 Rt pterional craniotomy for clipping of MCA aneurysm performed by Edgar Bee MD at [facility] OR/Periop Family History Problem Relation Age of [...] PO4 6.0* 6.1* 8.1* 9.1* Recent Labs 03/09/17184203/10/1732403/10/17204903/11/17 0050 03/11/17 0355 03/11/17 [...] Pertinent radiology reviewed. Tracie Mitchell MD Pager [phone] * Rosie Tanner, ROLO - 03/09/2017 4:28 PM DOG WARDEN Associated Order(s): CONSULT NEURO CRITICAL CARE PHYSICIAN Formatting of this note may be different from the original. Neuro Critical Care Consult Note Naren Mayfield Admission Date: 03/09/2017 LOS: 0 days Full Code ASSESSMENT/PLAN Patient Active Problem List Diagnosis Date Noted IVH (intraventricular hemorrhage) (HCC) 03/09/2017 Intraparenchymal hematoma of brain (HCC) 03/09/2017 Subarachnoid bleed ([facility]) 03/09/2017 Naren Mayfield is a 51 y.o. [...] Cognitive impairment suspected? Yes - if yes, LANDS RESOURCE MANAGER cognitive evaluation ordered? Not at this time, will evaluate when extubated Sedation/Pain Management: Yes - Propofol - Assess for delirium daily Cardiac: - SBP goal: < 140 - MAP goal > 65 - Cardene drip to meet SBP goal - EKG with SR - Will add IMMUNOLOGY SPECIALIST medications when verified Respiratory: Date of Intubation: [...] goal >4.0 mEq/L Prophylaxis Review: A) GI: [id number] B) Lines: Yes; Arterial Line; Indication: Continuous BP monitoring; Location: Radial C) Urinary Catheter: Yes; Retain cunningham due to: Need for accurate Intake and Output D) Antibiotic Usage: No E) VTE: SCDs F) Isolation: NA G)Seizures: Keppra I) Restraints: Patient assessed for need for restraints. Disposition/Family: NEICU Primary service: RADHA Consults: GLENNA, Renal SUBJECTIVE Chief Complaint: SAH History of [...] Code Decision Maker: Self and sister Mary [phone] Immunizations (includes history and patient reported): There [...] diagnostic procedures reviewed. Rosie Tanner, ROLO Date: 03/09/[phone] I spent 65 minutes managing the care [...] - Yesenia Stockton - 03/26/2017 11:21 AM DOG WARDEN Case Management Progress Note NAME:Naren Mayfield :[birth year] AGE: 51 y.o. ADMISSION DATE: 03/09/2017 DAYS ADMITTED: LOS: 17 days Todays Date: 03/26/2017 Plan REJI met with the neurosurgery team regarding POC and d/c planning. Pt is ready to d/c today, facility has accepted, since REJI was able to get transportation arranged for dialysis. Pt going to [facility] today at 3:00 via [address] [facility] W/C Van ([phone]), following his dialysis today Interventions ? Support Mary Mayfield, pt's sister is primary source of support. ? Info or Referral REJI called [facility] Medicaid to set up transportation ([phone]; where's my ride is [phone]) at d/c; [facility] denied. [facility] also originally denied dialysis apt transportation, but REJI was eventually able to obtain authorization. Pt's transport to and from Dialysis apts from [facility], are as follows: Pt's Medicaid ID is [id number] 03/28/17 9:00am apt picker/puller @ [address] [facility] Confirmation#[id number] 03/30/17 9:00am picker/puller @8 Confirmation #[id number] 04/02/17 9am apt, picker/puller @ 8:00am from [facility] Confirmatoin #[id number] 04/04/17 9am apt from [facility] (supervisor opening and picking @ 8:00am) Confirmation #[id number] 04/06/17 9am apt from [facility] (supervisor opening and picking @ 8:00am) Confirmation #[id number] 04/09/17 9am apt from [facility] (supervisor opening and picking @ 8:00am) Confirmation #[id number] 04/11/17 9am apt from [facility] (supervisor opening and picking @ 8:00am) Confirmation #[id number] 04/13/17 9am apt from [facility] (supervisor opening and picking @ 8:00am) Confirmation #[id number] ? Discharge Planning Discharge Planning: OP HD or PD Pt planning on going to [facility] today at 3:00 via [address] Transport W/C Van ([phone]) [facility] [address] [place], [place] [address] ? Medication Needs ? Financial ? Legal ? Other Disposition ? Discharge Preparation When ready for discharge, who will be responsible for transporting?: [facility] Type of Residence: Private residence Patient expects to be discharged to: Rehab facility Was the patient receiving home care services?: No ? Expected Discharge Expected Discharge Date: 03/25/17 ? Discharge Disposition Disposition: Inpatient Rehab Facility (IRF) Inpatient Rehab: [facility] ([place], [place]) ([phone]) ? Next Level Care Yesenia Stockton [facility] *[phone] * Case Mgmt DC Plan - Kavitha Pimentel - 03/26/2017 10:04 AM DOG WARDEN Request to Arrange Patient Transportation Received request from Yesenia Stockton [facility] [facility] to arrange transportation for pt to transfer to [facility]; [address] [address] today. Arrival date and time: 03/26 @ 1530 Transport company: [employer] @ [phone] Instructions for production truck driver: Pt needs wheelchair van, has no other special needs. Cost of transport: $325 to be paid by [facility] per [facility]. Kavitha Pimentel Veterinary Medicine Scientist For further assistance please contact [facility] *[phone] * Care Plan - Consuelo Cox RN - 03/26/2017 12:33 AM DOG WARDEN Problem: Neurological Status, Impaired/Altered Goal: Progress toward [...] - Kavitha Pimentel - 03/25/2017 11:32 AM DOG WARDEN Request to Arrange Patient Transportation Received request from Yesenia Stockton [facility] to arrange transportation for pt to transfer to [facility] [place] [facility], [address] [place] [address] today. Transportation cancelled per [facility] @ 1330 Transport company: [employer] [phone] Instructions for production truck driver: Pt needs wheelchair van, has no other special needs. Cost of transport: $325 to be paid by [facility] per [facility] Patient Transportation Quote Request Received request from REJI Rossi to check on quotes for wheelchair van to transfer pt to [facility] [place] [facility], [address] [place] [address] [employer] [phone]: $325 Assisted Transport [phone]- $[phone] Kavitha Pimentel Veterinary Medicine Scientist For further assistance please contact [facility] *[phone] * Case Mgmt DC Plan - Yesenia Stockton - 03/25/2017 11:28 AM DOG WARDEN Case Management Progress Note NAME:Naren Mayfield :[birth year] AGE: 51 y.o. ADMISSION DATE: 03/09/2017 DAYS ADMITTED: LOS: 16 days Todays Date: 03/25/2017 Plan REJI met with the neurosurgery team regarding POC and d/c planning; pt is ready to d/c today. However, [facility] will only accept if pt's dialysis transport has been arranged for pt. ([facility] denied without transportation arrangement for pt's dialysis). Interventions ? Support ? Info or Referral REJI called [facility] Community Plan to set up w/c transport [phone]; member service authorization requested for pt's dialysis transportation. Mihir to call REJI back with confirmation ([phone]); 16:30 12/18/17. SW also called [employer] [facility] in [place] requesting transport assistance. 03/28/17 9:00am apt picker/puller @ 8 [facility] Confirmation# 03/30/17 9:00am picker/puller @8 Confirmation # 04/01/17 9am apt, picker/puller @ 8:00am from [facility] Confirmatoin # 04/03/17 9am apt from [facility] (supervisor opening and picking @ 8:00am) Confirmation # 04/05/17 9am apt from [facility] (supervisor opening and picking @ 8:00am) Confirmation # 04/07/17 9am apt from [facility] (supervisor opening and picking @ 8:00am) Confirmation # 04/09/17 9am apt from [facility] (supervisor opening and picking @ 8:00am) Confirmation # 04/11/17 9am apt from [facility] (supervisor opening and picking @ 8:00am) Confirmation # 04/13/17 9am apt from [facility] (supervisor opening and picking @ 8:00am) Confirmation # [facility] will not transport pt from Hospital to [facility]. REJI discussed this with the @ [facility] ? Discharge Planning Discharge Planning: OP HD or PD Set up transportation for pt's dialysis. Pt going to [facility] as soon as w/c van can be arranged [facility] in [place] - Acute Rehab [address] [place], [place] [address] [place] [address] [facility] [address] [place], [place] [address] ? Medication Needs ? Financial ? Legal ? Other Disposition ? Discharge Preparation When ready for discharge, who will be responsible for transporting?: sister Type of Residence: Private residence Patient expects to be discharged to: Rehab facility Was the patient receiving home care services?: No ? Expected Discharge Expected Discharge Date: 03/25/17 ? Discharge Disposition ? Next Level Care Yesenia Stockton, [facility] *[id number] * Care Plan - Patito Moulton RN - 03/25/2017 12:19 AM DOG WARDEN Problem: Neurological Status, Impaired/Altered Goal: Progress toward [...] Consuelo Cox RN - 03/24/2017 3:07 AM DOG WARDEN Problem: Neurological Status, Impaired/Altered Goal: Progress toward [...] - Yesenia Stockton - 03/22/2017 4:17 PM DOG WARDEN Case Management Progress Note NAME:Naren Mayfield :[birth year] AGE: 51 y.o. ADMISSION DATE: 03/09/2017 DAYS ADMITTED: LOS: 13 days Todays Date: 03/22/2017 Plan SW met with the neurosurgery team regarding POC and d/c planning. Pt may be ready to transition to IPR as early as Saturday. Interventions ? Support Pt's sister, Mary Mayfield ([phone]) is pt's primary support. She is working with HUD housing to try and get him his [...] Calista Maldonado with the housing authority in [place] ( [phone]; [phone]); per pt and pt's sister's request. ? Discharge Planning Discharge Planning: OP HD or PD SW sent a referral to [facility] in [place], but they denied acceptance , stating that pt needs to have a d/c plan from there. SW discussed this with Mary, and she stated that she will not let him be homeless--that she can take him back in to her home, until she can get the housing voucher approved. SW will review this with [facility] clinical liaison. [facility] [place] [facility] - Acute Rehab [address] [place] [address] ? Medication Needs ? Financial ? Legal ? Other Disposition ? Discharge Preparation When ready for discharge, who will be responsible for transporting?: sister Type of Residence: Private residence Patient expects to be discharged to: Rehab facility Was the patient receiving home care services?: No ? Expected Discharge Expected Discharge Date: 03/25/17 ? Discharge Disposition ? Next Level Care Yesenia Stockton, [facility] *[id number] * Procedures (Immed Post or Bedside) - Elaine Nicholson APRN - 03/21/2017 5: 47 PM DOG WARDEN Formatting of this note may be different from the original. Neuro Critical Care Transcranial Doppler Ultrasound Report Naren Mayfield [id number] 51 y.o. male Diagnosis: SAH Indication for [...] Derrell Bowers MD - 03/22/2017 7:55 AM DOG WARDEN I have personally reviewed the study. Bilaterally elevated LRs but mean MCA velocities < 120, do not meet criteria for vasospasm. Follow up study recommended. Derrell Bowers MD 03/22/2017 7:55 AM * Case Mgmt DC Plan - Kavitha Pimentel - 03/20/2017 3:54 PM DOG WARDEN Request to Send Referral Received request from Yesenia Stockton [facility] to send referral to the following facility: [facility] - Acute Rehab [address] [place] [address] Kavitha Pimentel Veterinary Medicine Scientist For additional assistance please contact [facility] *[phone] * Case Mgmt DC Plan - Diana Scott RN - 03/20/2017 3:33 PM DOG WARDEN Case Management Progress Note NAME:Naren Mayfield :[birth year] AGE: 51 y.o. ADMISSION DATE: 03/09/2017 DAYS ADMITTED: LOS: 11 days Todays Date: 03/20/2017 Plan Ongoing DC planning - Dialysis Center update Interventions ? Support ? Info or Referral ? Discharge Planning Discharge Planning: OP HD or PD - NCM updated Danita at [facility] [place], [place], ph [phone] / fax [phone] on patient's discharge planning (likely [facility], hopefully in [place], next week). NCM will contact [facility] again upon discharge so that they [...] Disposition ? Next Level Care THANG Mack, conservation engineer Nurse Executive Creative Director [phone] * Case Mgmt DC Plan - Yesenia Stockton - 03/20/2017 2:58 PM DOG WARDEN Case Management Progress Note NAME:Naren Mayfield :[birth year] [...] pt appropriate, but prefers to go to [facility]. REJI requested that the [facility] please send a referral for their [...] Disposition ? Next Level Care Yesenia Stockton, [facility] *[id number] * Procedures (Immed Post or Bedside) - Rylee Arango APRN - 03/19/2017 12:17 PM DOG WARDEN Formatting of this note may be different from the original. Neuro Critical Care Transcranial Doppler Ultrasound Report Naren Mayfield [id number] 51 y.o. male Diagnosis: SAH Indication for [...] Derrell Bowers MD - 03/19/2017 1:54 PM DOG WARDEN Interval decrease in the MFV of left MCA, with slight increase in MFV of right MCAs. LRL 1.1; RLR 1.2. No sonographic evidence of vasospasm on this study. Derrell Bowers MD 03/19/2017 1:54 PM * Case Mgmt DC Plan - Yesenia Stockton - 03/18/2017 10:44 AM DOG WARDEN Case Management Progress Note NAME:Naren Mayfield :[birth year] [...] pt's positive UDS, SW has contacted [facility] and filed a report; family aware of SW's report. Pt has been accepted for HUD housing in [place] and was getting ready to move into his home just when he experienced the SAH. SW unsure what the status of his home currently is, but has offered support if letters re:pt's medical situation are needed. ? Info or Referral ? Discharge Planning Discharge Planning: OP HD or PD Rehab consult has been placed. Pt likely returning to [facility] ( [place] IPR). SW will watch to consult them [...] Tanner APRN - 03/18/2017 5: 56 AM DOG WARDEN Formatting of this note may be different from the original. Neuro Critical Care Transcranial Doppler Ultrasound Report Naren Mayfield [id number] 51 y.o. male Diagnosis: SAH Indication for [...] Derrell Bowers MD - 03/21/2017 6:12 PM DOG WARDEN Elevated LR on left side 3.3, however mean flow velocity of L MCA is < 130 cm/ s. Could be an early finding of subsequent vasospasm. Right LR 1.6, normal velocities on right side. Follow up study recommended. Derrell Bowers MD 03/19/2017 1:50 PM * Critical Results - Karen Escalante RN - 03/17/2017 6:01 AM DOG WARDEN Critical result or procedure called (document test and value, and read back): PO2 49 Time MD/CHIEF CRNA Notified: [id number] MD/CHIEF CRNA Name: Rosie Tanner APRN MD/CHIEF CRNA Response/Orders Given: Result thought to be in error. Orders given to redraw. * Procedures (Immed Post or Bedside) - Rosie Tanner APRN - 03/17/2017 5: 43 AM DOG WARDEN Formatting of this note may be different from the original. Neuro Critical Care Transcranial Doppler Ultrasound Report Naren Mayfield [id number] 51 y.o. male Diagnosis: SAH Indication for [...] Deborah Lynn MD - 03/26/2017 2:57 PM DOG WARDEN Formatting of this note may be different from the original. ATTESTATION: No evidence of vasospasm on this study. I have interpreted the results. Staff name: Deborah Lynn MD Date: 03/26/2017 * Care Plan - Mary Amezquita RN - 03/14/2017 6:40 PM DOG WARDEN Problem: Infection, Risk of, Central Venous Catheter-Associated Bloodstream Infection Goal: Absence of CVC Associated Bloodstream infection Outcome: Goal Achieved Date Met: 03/14/17 Pt no longer has central line * Case Mgmt DC Plan - Yesenia Stockton - 03/14/2017 10:46 AM DOG WARDEN Case Management Progress Note NAME:Naren Mayfield :[birth year] [...] Disposition ? Next Level Care Yesenia Stockton, [facility] *[phone] * Procedures (Immed Post or Bedside) - Elaine Nicholson APRN - 03/14/2017 6: 46 AM DOG WARDEN Formatting of this note may be different from the original. Neuro Critical Care Transcranial Doppler Ultrasound Report Naren Mayfield [id number] 51 y.o. male Diagnosis: SAH Indication for [...] Deborah Lynn MD - 03/26/2017 2:54 PM DOG WARDEN Formatting of this note may be different from the original. ATTESTATION: Right TCDs not able to be obtained. Left sided study shows no evidence of vasospasm. I have interpreted the results. Staff name: Deborah Lynn MD Date: 03/26/2017 * Care Coordination-Inpatient - Vernell Corbin MD - 03/13/2017 6:56 PM DOG WARDEN BRIEF VEEG NOTE First 30 min of EEG reviewed. Right PLEDs are seen. Will continue to monitor. 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 [...] with the aunt Torito. SW did call [facility] to report the positive drug screen. Incident: [id number] ? Info or Referral ? Discharge Planning [...] Disposition ? Next Level Care Yesenia Stockton, [facility] *6246 * Procedures (Immed Post or Bedside) - Suad Weems APRN - 03/13/2017 6: 16 AM DOG WARDEN Formatting of this note may be different from the original. [facility] Neuroscience ICU Transcranial Doppler Ultrasound Report Naren Mayfield [id number] 51 y.o. male Diagnosis:SAH Indication for TCD: [...] Deborah Lynn MD - 03/14/2017 1:39 PM DOG WARDEN Formatting of this note may be different from the original. ATTESTATION: Increased left LR concerning for vasospasm. No evidence of right-sided vasospasm on this study. I have interpreted the results. Staff name: Deborah Lynn MD Date: 03/14/2017 * Case Mgmt DC Plan - Yesenia Stockton - 03/12/2017 4:33 PM DOG WARDEN Case Management Progress Note NAME:Naren Mayfield :[birth year] [...] children; 6 of whom live in the [facility]. ? Info or Referral none at this time ? Discharge Planning Discharge Planning: OP HD or PD SW was asked to assist with faxing a letter to pt's place of work excusing her absence. REJI also asked to draft a letter excusing [...] Disposition ? Next Level Care Yesenia Stockton, [facility] *6246 * Case Mgmt DC Plan - Diana Scott RN - 03/12/2017 2:08 PM DOG WARDEN Case Management Progress Note NAME:Naren Mayfield :[birth year] AGE: 51 y.o. ADMISSION DATE: 03/09/2017 DAYS ADMITTED: LOS: 3 days Todays Date: 03/12/2017 Plan Ongoing DC planning - Outpatient dialysis Interventions ? Support ? Info or Referral ? Discharge Planning Discharge Planning: OP HD or PD * NCM confirmed with dialysis center that patient obtains his dialysis T-Th-Sat at [place], [place], ph [phone] / fax [phone]. * This center is not part of [facility]; NCM sent [facility] referral, facesheet, H&P, renal consult, and dialysis report as of 03/12/17 to [facility] via [facility] fax function. * NCM will update [facility] as needed as DC planning evolves; patient may require an inpatient setting at discharge. ? Medication Needs ? Financial ? Legal ? Other Disposition ? Discharge Preparation ? Expected Discharge Expected Discharge Date: 03/22/17 ? Discharge Disposition ? Next Level Care THANG Mack, conservation engineer Nurse Executive Creative Director [phone] * Procedures (Immed Post or Bedside) - Shannen Wilson APRN-CHIEF CRNA - 03/12/2017 1: 10 AM DOG WARDEN Formatting of this note may be different from the original. Neuro Critical Care Transcranial Doppler Ultrasound Report Naren Mayfield [id number] 51 y.o. male Diagnosis: SAH Indication for [...] the neurosurgical team Staff name: Shannen Wilson APRN-CHIEF CRNA Date: 03/12/2017 Associated attestation - Deborah Lynn MD - 03/12/2017 11:55 AM DOG WARDEN Formatting of this note may be different from the original. ATTESTATION: No evidence of vasospasm on this study. I have interpreted the results. Staff name: Deborah Lynn MD Date: 03/12/2017 * Case Mgmt DC Plan - Vandana Arce - 03/11/2017 2:38 PM DOG WARDEN Formatting of this note may be different [...] admit, pt reportedly attending T// HD at [facility], and was primarily transporting himself to/from HD appts. Emergency Contact No emergency contact information on file. Primary family support is pt's sister, Laura Mayfield -cell. Pt currently resides with his sister at [address] [place] [address]. DPOA None on file Transportation Does the [...] Laura, at the above listed address in [place], [place]. Per Sim, pt is primarily independent, [...] Medicare (Part B ) Secondary Insurance: Medicaid ([facility] Medicaid) Additional Coverage: RX ? Source of Income Source Of Income: SSDI ? Financial Assistance Needed? None identified at time of assessment Current/Previous Services ? PCP No primary care provider on file. ? DME DME at home: Single [employer] ? Home Health Home Health: No ? HD or PD Undergoing hemodialysis or peritoneal dialysis: Yes Hemodialysis or Peritoneal Dialysis: Hemodialysis Location: [facility] attending: Saturday, , Saturday Does patient [...] and community based services: No ? [place]: No ? Hospice Hospice: No ? Outpatient Therapy PT: No OT: No LANDS RESOURCE MANAGER: No ? SNF/NH SNF: No NH: [...] due to medical status Radha Arce LMSW, [facility] [phone] * Anesthesia Post Op Day 1 - Carmen Novak SRNA - 03/11/2017 9:57 AM DOG WARDEN Formatting of this note may be different from the original. Anesthesia Follow-Up Evaluation: Post-Procedure Day One Name: Naren Mayfield : 1965 Age: 51 y.o. 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 Anesthesia Follow-Up Evaluation: Post-Procedure Day One Name: Naren Mayfield : 1965 Age: 51 y.o. Sex: male Procedure Date: 03/10/2017 Procedure: Procedure(s): REPAIR ANEURYSM CRANIOTOMY Physical Assessment Height: 172.7 cm (68") Weight: 115.1 kg (253 lb 12 oz) Vital Signs (Last Filed in 24 hours) BP: 151/73 (03/100) Temp: 37 C (98.6 F) (03/11 040) Pulse: 77 (03/11 819) Respirations: 27 PER [...] Faraz Hernandez MD - 03/11/2017 12:37 AM DOG WARDEN OPERATIVE REPORT PATIENT NAME: Naren Mayfield PATIENT : 1965 MR#: [id number] DATE OF OPERATION: 03/11/2017 Surgeon(s) and Role: [...] He was placed in the radiolucent [place] hogshead opener and the previous dressing was removed. The [...] Prior to the galeal closure a 10 Citizen [place] CHET drain was placed in the wound [...] fashion. The patient was removed from the [place] hogshead opener and transferred to the [facility]. Patient was transferred to the neuro ICU in stable condition with improvement of his right dilated pupil which was now equal and reactive. ESTIMATED BLOOD LOSS: 200 ml. SPECIMENS REMOVED: * No specimens in log *. COMPLICATIONS: none. IMPLANTS: lyoplant. DRAINS: 10 F CHET drain to bulb suction. DISPOSITION: Taken to Neuro ICU in stable condition. . Faraz Hernandez MD 1013 Please call Neurosurgery Call Pager ([phone]) with any questions. Associated attestation - Edgar Bee MD - 04/05/2017 10:33 AM DOG WARDEN Formatting of this note may be different from the original. ATTESTATION I performed this procedure with a resident. Staff name: Edgar Bee MD Date: 04/05/2017 * Procedures (Immed Post or Bedside) - Faraz Hernandez MD - 03/11/2017 12: 30 AM DOG WARDEN Brief Operative Note Name: Naren Mayfield is [...] ICU - stable Faraz Hernandez MD Pager [phone] Associated attestation - Edgar Bee MD - 04/05/2017 10:32 AM DOG WARDEN Neurologic change prompted reimaging. Post-operative hemorrhage with mass effect , and perfusion imaging suggestive of risk of further neurologic change, therefore emergent reoperation to address these significant issues. * Operative Report (Direct Entry) - Edgar Bee MD - 03/10/2017 7:00 PM DOG WARDEN Formatting of this note may be different from the original. OPERATIVE REPORT PATIENT NAME: Naren Mayfield PATIENT : 1965 MR#: [id number] DATE OF OPERATION: 03/10/2017 Surgeon(s) and Role: [...] is a 51-year-old male who presented to [facility] after being found unresponsive while he is [...] areas for craniotomy were demarcated in the hobbing press operator bur bit was used to fashion bur [...] tightened down at this juncture. A 10 Citizen [place] round CHET drain was placed in the [...] fashion the patient was removed from the [place] hogshead opener. [facility] and transferred to the neuro [...] NeuroICU in stable condition. Faraz Hernandez MD [phone] Please call Neurosurgery Call Pager ([phone]) with any questions. ATTESTATION I performed this procedure with a resident. Staff name: Edgar Bee MD Date: 04/05/2017 * Procedures (Immed Post or Bedside) - Faraz Hernandez MD - 03/10/2017 7: 00 PM DOG WARDEN Brief Operative Note Name: Naren Mayfield is [...] ICU - stable Faraz Hernandez MD Pager [phone] Patient was taken to Neuro ICU in stable condition and sign-off was given, unfortunately he required emergent return to OR for epidural hematoma, midline shift and evidence on vascular imaging of slow filling of one branch distribution. Associated attestation - Edgar Bee MD - 04/05/2017 10:31 AM DOG WARDEN Neurologic change prompted reimaging. Post-operative hemorrhage with mass effect , and perfusion imaging suggestive of risk of further neurologic change, therefore emergent reoperation to address these significant issues. * Procedures (Immed Post or Bedside) - Lyly Rogel MD - 03/09/2017 5:54 PM DOG WARDEN Neuro Interventional Immediate Post Procedure Note Date: 03/09/2017 Attending Physician: Lyly Rogel MD Librarian(s): Ankita Lopez Cerebral Angiogram Time out performed: [...] Exam: Intubated, sedated Lyly Rogel MD Pager: [phone] * Procedures (Immed Post or Bedside) - Rosie Tanner APRN - 03/09/2017 4: 29 PM DOG WARDEN Formatting of this note may be different [...] DO Event [address] [place] [address] [phone] 05/17/2017 Surgery Edgar Bee MD CRANIOPLASTY FOR RIGHT [address] [place] [place]ULL [place], [place] [address] [place] [address] FROM RIGHT ABDOMEN [phone] 05/17/2017 Procedure Pass 05/17/2017 Hospital Edgar Bee MD Brain aneurysm Encounter [address] [place] [address] [phone] Name Priority Associated Diagnoses Date/Time DELIVER & TRANSFUSE RED BLOOD CELLS STAT 03/10/2017 10:29 AM DOG WARDEN (INTRAOP ONLY) TRANSFUSE RBC'S NON-BLEEDING PT Routine 03/13/2017 1:10 PM DOG WARDEN TRANSFUSE RBC'S NON-BLEEDING PT Routine 03/13/2017 1:10 PM DOG WARDEN as of this encounter Procedures Procedure Name Priority Date/Time Associated Diagnosis Comments ECG-SCAN 05/03/2017 Results for this 7:15 AM DOG WARDEN procedure are in the results section. TELEMETRY STRIPS-SCAN 04/03/2017 Results for this 1:24 PM DOG WARDEN procedure are in the results section. ECG-SCAN 04/03/2017 Results for this 1:19 PM DOG WARDEN procedure are in the results section. ECG-SCAN 04/03/2017 Results for this 9:50 AM DOG WARDEN procedure are in the results section. ECG-SCAN 04/03/2017 Results for this 9:50 AM DOG WARDEN procedure are in the results section. CONSULT IV THERAPY TEAM Routine 03/19/2017 9:43 AM DOG WARDEN ECG-SCAN 03/12/2017 Results for this 10:05 AM DOG WARDEN procedure are in the results section. ECG-SCAN 03/12/2017 Results for this 10:05 AM DOG WARDEN procedure are in the results section. ECG-SCAN 03/12/2017 Results for this 10:05 AM DOG WARDEN procedure are in the results section. ECG-SCAN 03/12/2017 Results for this 10:05 AM DOG WARDEN procedure are in the results section. Rt pterional craniotomy 03/10/2017 Ruptured cerebral for clipping of MCA 8:00 AM DOG WARDEN aneurysm (HCC) aneurysm in this encounter Results [...] Specimen Performing Laboratory [facility] [address] [place] [address] * HEMODIALYSIS INPATIENT (03/26/2017 1:10 PM) Narrative [...] K/UL Specimen Performing Laboratory Blood MAIN LAB [address] [place] [address] 81386 * BASIC METABOLIC PANEL (03/26/2017 4:20 AM) [...] Pharmacist for questions. Specimen Performing Laboratory Blood [facility] [address] [place] [address] 0[address]68 * POC GLUCOSE (03/26/2017 3:24 AM) Component Value Ref Range Glucose, POC 114 (H) 70 - 100 MG/DL Specimen Performing Laboratory MAIN LAB [address] [place] [address] 03235 * POC GLUCOSE (03/25/2017 8:52 PM) Component Value Ref Range Glucose, POC 160 (H) 70 - 100 MG/DL Specimen Performing Laboratory MAIN LAB [address] [place] [address] 35765 * POC GLUCOSE (03/25/2017 5:13 PM) Component Value Ref Range Glucose, POC 135 (H) 70 - 100 MG/DL Specimen Performing Laboratory MAIN LAB [address] [place] [address] 63725 * POC GLUCOSE (03/25/2017 11:59 AM) Component Value Ref Range Glucose, POC 103 (H) 70 - 100 MG/DL Specimen Performing Laboratory MAIN LAB [address] [place] [address] 60061 * POC GLUCOSE (03/25/2017 7:30 AM) Component Value Ref Range Glucose, POC 85 70 - 100 MG/DL Specimen Performing Laboratory MAIN LAB [address] [place] [address] 78353 * CBC AND DIFF (03/25/2017 4:27 AM) [...] K/UL Specimen Performing Laboratory Blood MAIN LAB [address] [place] [address] 88163 * BASIC METABOLIC PANEL (03/25/2017 4:27 AM) [...] Pharmacist for questions. Specimen Performing Laboratory Blood [facility] [address] [place], [place] [id number] * POC GLUCOSE (03/25/2017 1:51 AM) Component Value Ref Range Glucose, POC 90 70 - 100 MG/DL Specimen Performing Laboratory [facility] [address] [place], [place] [id number] * POC GLUCOSE (03/24/2017 8:52 PM) Component Value Ref Range Glucose, POC 160 (H) 70 - 100 MG/DL Specimen Performing Laboratory [facility] [address] [place], [place] [id number] * POC GLUCOSE (03/24/2017 4:55 PM) Component Value Ref Range Glucose, POC 105 (H) 70 - 100 MG/DL Specimen Performing Laboratory [facility] [address] [place], [place] [id number] * POC GLUCOSE (03/24/2017 11:42 AM) Component Value Ref Range Glucose, POC 158 (H) 70 - 100 MG/DL Specimen Performing Laboratory [facility] [address] [place], [place] [id number] * POC GLUCOSE (03/24/2017 7:52 AM) Component Value Ref Range Glucose, POC 102 (H) 70 - 100 MG/DL Specimen Performing Laboratory [facility] [address] [place], [place] [id number] * BASIC METABOLIC PANEL (03/24/2017 4:13 AM) [...] questions. Specimen Performing Laboratory Blood MAIN LAB [address] [place] [address] 24555 * PHOSPHORUS (03/24/2017 4:13 AM) Component Value Ref Range Phosphorus 6.5 (H) 2.0 - 4.0 MG/DL Specimen Performing Laboratory Blood MAIN LAB [address] [place] [address] 35751 * CBC AND DIFF (03/24/2017 4:13 AM) [...] K/UL Specimen Performing Laboratory Blood MAIN LAB [address] [place] [address] 83877 * POC GLUCOSE (03/24/2017 3:55 AM) Component Value Ref Range Glucose, POC 97 70 - 100 MG/DL Specimen Performing Laboratory MAIN LAB [address] [place] [address] * POC GLUCOSE (03/23/2017 9:09 PM) Component Value Ref Range Glucose, POC 143 (H) 70 - 100 MG/DL Specimen Performing Laboratory MAIN LAB [address] [place] [address] 33601 * POC GLUCOSE (03/23/2017 5:37 PM) Component Value Ref Range Glucose, POC 134 (H) 70 - 100 MG/DL Specimen Performing Laboratory MAIN LAB [address] [place] [address] 25747 * HEMODIALYSIS INPATIENT (03/23/2017 3:24 PM) Rose Navarro RN 03/23/20173:24 PM Arrived at patient room C 5112 and treatment started at 1040 am. Vital signs stable. Patient tolerating treatment well. Treatment complete at 1444 pm. Vital signs stable. Smoaks removed from L AV fistula and site healed. Report given to unit nurse. Left patient in room C 5112 in stable condition. * HEMODIALYSIS DATE (03/23/2017 3:24 PM) Rose Navarro RN 03/23/20173:24 PM Arrived at patient room C 5112 and treatment started at 1040 am. Vital signs stable. Patient tolerating treatment well. Treatment complete at 1444 pm. Vital signs stable. Smoaks removed from L AV fistula and site healed. Report given to unit nurse. Left patient in room C 5112 in stable condition. * POC GLUCOSE (03/23/2017 1:10 PM) Component Value Ref Range Glucose, POC 146 (H) 70 - 100 MG/DL Specimen Performing Laboratory MAIN LAB [address] [place] [address] 35524 * POC GLUCOSE (03/23/2017 8:13 AM) Component Value Ref Range Glucose, POC 105 (H) 70 - 100 MG/DL Specimen Performing Laboratory MAIN LAB [address] [place] [address] 99984 * CBC AND DIFF (03/23/2017 4:39 AM) [...] K/UL Specimen Performing Laboratory Blood MAIN LAB [address] [place] [address] * BLOOD GASES, ARTERIAL (03/23/2017 4:39 AM) Component Value Ref Range pH-Arterial 7.26 (L) 7.35 - 7.45 pCO2-Arterial 36 35 - 45 MMHG pO2-Arterial 74 (L) 80 - 100 MMHG Base Deficit-Arterial 10.6 MMOL/L O2 Sat-Arterial 92.5 (L) 95 - 99 % Fshdzjmqblz-APO-Lti 16.1 (L) 21 - 28 MMOL/L Specimen Performing Laboratory Blood, arterial - Blood MAIN LAB [address] [place] [address] * IONIZED CALCIUM (03/23/2017 4:39 AM) Component Value Ref Range Ionized Calcium 1.25 1.0 - 1.3 MMOL/L Specimen Performing Laboratory Blood MAIN LAB [address] [place] [address] * PHOSPHORUS (03/23/2017 4:39 AM) Component Value Ref Range Phosphorus 8.6 (H) 2.0 - 4.0 MG/DL Specimen Performing Laboratory Blood MAIN LAB [address] [place], [place] [id number] * MAGNESIUM (03/23/2017 4:39 AM) Component Value Ref Range Magnesium 2.6 1.6 - 2.6 mg/dL Specimen Performing Laboratory Blood MAIN LAB [address] [place] [address] * BASIC METABOLIC PANEL (03/23/2017 4:39 AM) [...] questions. Specimen Performing Laboratory Blood MAIN LAB [address] [place] [address] 75445 * POC GLUCOSE (03/23/2017 4:23 AM) Component Value Ref Range Glucose, POC 90 70 - 100 MG/DL Specimen Performing Laboratory MAIN LAB [address] [place] [address] 40[address] * POC GLUCOSE (03/22/2017 8:40 PM) Component Value Ref Range Glucose, POC 110 (H) 70 - 100 MG/DL Specimen Performing Laboratory MAIN LAB [address] [place] [address] 26904 * POC GLUCOSE (03/22/2017 6:14 PM) Component Value Ref Range Glucose, POC 212 (H) 70 - 100 MG/DL Specimen Performing Laboratory MAIN LAB [address] [place] [address] * CT HEAD WO CONTRAST (03/22/2017 5:59 [...] Interface, Radiant Results - 03/23/2017 2:[address] HEAD HISTORY: Status post craniectomy, subarachnoid [...] MG/DL Specimen Performing Laboratory MAIN LAB [address] [place] [address] * POC GLUCOSE (03/22/2017 8:07 AM) Component Value Ref Range Glucose, POC 128 (H) 70 - 100 MG/DL Specimen Performing Laboratory MAIN LAB [address] [place] [address] * CBC AND DIFF (03/22/2017 3:50 AM) [...] Specimen Performing Laboratory Blood MAIN LAB [address] [place] [address] * BLOOD GASES, ARTERIAL (03/22/2017 3:50 AM) Component Value Ref Range pH-Arterial 7.36 7.35 - 7.45 pCO2-Arterial 36 35 - 45 MMHG pO2-Arterial 83 80 - 100 MMHG Base Deficit-Arterial 4.2 MMOL/L O2 Sat-Arterial 96.1 95 - 99 % Grctjxzvrbd-QLU-Zoq 20.9 (L) 21 - 28 MMOL/L Specimen Performing Laboratory Blood, arterial - Blood MAIN LAB [address] [place] [address] * IONIZED CALCIUM (03/22/2017 3:50 AM) Component Value Ref Range Ionized Calcium 1.21 1.0 - 1.3 MMOL/L Specimen Performing Laboratory Blood MAIN LAB [address] [place] [address] 57911 * PHOSPHORUS (03/22/2017 3:50 AM) Component Value Ref Range Phosphorus 6.3 (H) 2.0 - 4.0 MG/DL Specimen Performing Laboratory Blood MAIN LAB [address] [place] [address] 51787 * MAGNESIUM (03/22/2017 3:50 AM) Component Value Ref Range Magnesium 2.4 1.6 - 2.6 mg/dL Specimen Performing Laboratory Blood MAIN LAB [address] [place] [address] 48873 * BASIC METABOLIC PANEL (03/22/2017 3:50 AM) [...] questions. Specimen Performing Laboratory Blood MAIN LAB [address] [place] [address] 66294 * POC GLUCOSE (03/22/2017 3:38 AM) Component Value Ref Range Glucose, POC 155 (H) 70 - 100 MG/DL Specimen Performing Laboratory MAIN LAB [address] [place] [address] 55124 * POC GLUCOSE (03/21/2017 9:12 PM) Component Value Ref Range Glucose, POC 153 (H) 70 - 100 MG/DL Specimen Performing Laboratory MAIN LAB [address] [place] [address] * POC GLUCOSE (03/21/2017 6:09 PM) Component Value Ref Range Glucose, POC 163 (H) 70 - 100 MG/DL Specimen Performing Laboratory [facility] MAIN [facility] [address] [place] [address] * SWALLOW MOTION SERIES (03/21/2017 3:40 PM) [...] Interface, Radiant Results - 03/21/2017 4:44 PM DOG WARDEN SWALLOW MOTION SERIES CLINICAL INDICATION: Male, 51 [...] HEMODIALYSIS INPATIENT (03/21/2017 1:02 PM) Narrative Hetal Roberst RN 03/21/20171:02 PM 0630 Arrived in Pt's RM [id number] with portable R/O and diaysis machine/supply cart. ICU staff cleaning Pt from BM. [id number] R/O rinsing/cool down cycle in progress. Pt [...] 03/21/20171:02 PM 0630 Arrived in Pt's RM [id number] with portable R/O and diaysis machine/supply cart. ICU staff cleaning Pt from BM. [id number] R/O rinsing/cool down cycle in progress. Pt [...] 100 MG/DL Specimen Performing Laboratory MAIN LAB [address] [place] [address] * POC GLUCOSE (03/21/2017 8:05 AM) Component Value Ref Range Glucose, POC 169 (H) 70 - 100 MG/DL Specimen Performing Laboratory MAIN LAB [address] [place] [address] * POC GLUCOSE (03/21/2017 3:42 AM) Component Value Ref Range Glucose, POC 150 (H) 70 - 100 MG/DL Specimen Performing Laboratory MAIN LAB [address] [place] [address] * CBC AND DIFF (03/21/2017 3:40 AM) [...] K/UL Specimen Performing Laboratory Blood MAIN LAB [address] [place] [address] * BLOOD GASES, ARTERIAL (03/21/2017 3:40 AM) Component Value Ref Range pH-Arterial 7.31 (L) 7.35 - 7.45 pCO2-Arterial 33 (L) 35 - 45 MMHG pO2-Arterial 65 (L) 80 - 100 MMHG Base Deficit-Arterial 9.1 MMOL/L O2 Sat-Arterial 89.9 (L) 95 - 99 % Nengojuwhgp-UNR-Bem 17.0 (L) 21 - 28 MMOL/L Specimen Performing Laboratory Blood, arterial - Blood MAIN LAB [address] [place] [address] * IONIZED CALCIUM (03/21/2017 3:40 AM) Component Value Ref Range Ionized Calcium 1.23 1.0 - 1.3 MMOL/L Specimen Performing Laboratory Blood MAIN LAB [address] [place] [address] * PHOSPHORUS (03/21/2017 3:40 AM) Component Value Ref Range Phosphorus 7.0 (H) 2.0 - 4.0 MG/DL Specimen Performing Laboratory Blood MAIN LAB [address] [place] [address] * MAGNESIUM (03/21/2017 3:40 AM) Component Value Ref Range Magnesium 2.5 1.6 - 2.6 mg/dL Specimen Performing Laboratory Blood MAIN LAB [address] [place] [address] * BASIC METABOLIC PANEL (03/21/2017 3:40 AM) [...] Pharmacist for questions. Specimen Performing Laboratory Blood [facility] [address] [place], [place] [phone] * POC GLUCOSE (03/20/2017 8:54 PM) Component Value Ref Range Glucose, POC 139 (H) 70 - 100 MG/DL Specimen Performing Laboratory [facility] [address] [place] [address] 82671 * POC GLUCOSE (03/20/2017 4:51 PM) Component Value Ref Range Glucose, POC 159 (H) 70 - 100 MG/DL Specimen Performing Laboratory [facility] [address] [place], [place] [id number] * POC GLUCOSE (03/20/2017 11:57 AM) Component Value Ref Range Glucose, POC 143 (H) 70 - 100 MG/DL Specimen Performing Laboratory [facility] [address] [place], [place] [id number] * POC GLUCOSE (03/20/2017 7:44 AM) Component Value Ref Range Glucose, POC 150 (H) 70 - 100 MG/DL Specimen Performing Laboratory [facility] [address] [place] [address] * CBC AND DIFF (03/20/2017 4:28 AM) [...] K/UL Specimen Performing Laboratory Blood MAIN LAB [address] [place] [address] * BLOOD GASES, ARTERIAL (03/20/2017 4:28 AM) Component Value Ref Range pH-Arterial 7.38 7.35 - 7.45 pCO2-Arterial 37 35 - 45 MMHG pO2-Arterial 85 80 - 100 MMHG Base Deficit-Arterial 2.3 MMOL/L O2 Sat-Arterial 96.1 95 - 99 % Vgmbyzprfuf-VEQ-Jie 22.4 21 - 28 MMOL/L Specimen Performing Laboratory Blood, arterial - Blood MAIN LAB [address] [place] [address] * IONIZED CALCIUM (03/20/2017 4:28 AM) Component Value Ref Range Ionized Calcium 1.19 1.0 - 1.3 MMOL/L Specimen Performing Laboratory Blood MAIN LAB [address] [place] [address] * PHOSPHORUS (03/20/2017 4:28 AM) Component Value Ref Range Phosphorus 5.3 (H) 2.0 - 4.0 MG/DL Specimen Performing Laboratory Blood MAIN LAB [address] [place] [address] * MAGNESIUM (03/20/2017 4:28 AM) Component Value Ref Range Magnesium 2.2 1.6 - 2.6 mg/dL Specimen Performing Laboratory Blood MAIN LAB [address] [place] [address] * BASIC METABOLIC PANEL (03/20/2017 4:28 AM) [...] Performing Laboratory Blood [facility] MAIN [facility] [address] [place] [address] * POC GLUCOSE (03/20/2017 3:23 AM) Component Value Ref Range Glucose, POC 150 (H) 70 - 100 MG/DL Specimen Performing Laboratory [facility] MAIN [facility] [address] [place] [address] * POC GLUCOSE (03/19/2017 8:10 PM) Component Value Ref Range Glucose, POC 137 (H) 70 - 100 MG/DL Specimen Performing Laboratory [facility]IN [facility] [address] [place] [address] * ABDOMEN AP ONLY (03/19/2017 7:37 PM) [...] Interface, Radiant Results - 03/20/2017 7:53 AM DOG WARDEN Portable AP abdomen CLINICAL HISTORY: Corpak verification. [...] Specimen Performing Laboratory [facility]IN [facility] [address] [place] [address] * ABDOMEN AP ONLY (03/19/2017 4:23 PM) [...] Interface, Radiant Results - 03/19/2017 4:39 PM DOG WARDEN ABDOMEN AP ONLY Indication: Corpak placement. Comparison: [...] MG/DL Specimen Performing Laboratory MAIN LAB [address] [place] [address] * POC GLUCOSE (03/19/2017 8:26 AM) Component Value Ref Range Glucose, POC 163 (H) 70 - 100 MG/DL Specimen Performing Laboratory MAIN LAB [address] [place] [address] * CBC AND DIFF (03/19/2017 4:18 AM) [...] Specimen Performing Laboratory Blood MAIN LAB [address] [place] [address] * BLOOD GASES, ARTERIAL (03/19/2017 4:18 AM) Component Value Ref Range pH-Arterial 7.34 (L) 7.35 - 7.45 pCO2-Arterial 37 35 - 45 MMHG pO2-Arterial 108 (H) 80 - 100 MMHG Base Deficit-Arterial 5.2 MMOL/L O2 Sat-Arterial 98.4 95 - 99 % Zpguilgiqdt-LVD-Kzw 20.1 (L) 21 - 28 MMOL/L Specimen Performing Laboratory Blood, arterial - Blood [facility] MAIN LAB [address] [place] [address] 73528 * IONIZED CALCIUM (03/19/2017 4:18 AM) Component Value Ref Range Ionized Calcium 1.18 1.0 - 1.3 MMOL/L Specimen Performing Laboratory Blood MAIN LAB [address] [place] [address] 87449 * PHOSPHORUS (03/19/2017 4:18 AM) Component Value Ref Range Phosphorus 6.2 (H) 2.0 - 4.0 MG/DL Specimen Performing Laboratory Blood MAIN LAB [address] [place], [place] [id number] * MAGNESIUM (03/19/2017 4:18 AM) Component Value Ref Range Magnesium 2.3 1.6 - 2.6 mg/dL Specimen Performing Laboratory Blood MAIN LAB [address] [place] [address] 15998 * BASIC METABOLIC PANEL (03/19/2017 4:18 AM) [...] Performing Laboratory Blood [facility] [address] [place] [address] * POC GLUCOSE (03/19/2017 3:02 AM) Component Value Ref Range Glucose, POC 181 (H) 70 - 100 MG/DL Specimen Performing Laboratory MAIN LAB [address] [place] [address] * US DOPPLER VENOUS BILATERAL (03/19/2017 1:15 [...] Interface, Radiant Results - 03/19/2017 6:45 AM DOG WARDEN Bilateral lower extremity venous Doppler History: Immobility, [...] Performing Laboratory [facility]IN [facility] [address] [address] * HEMODIALYSIS INPATIENT (03/18/2017 7:03 PM) Narrative Mihai Aly RN 03/18/20177:03 PM 1225 Status: Active Ordering user: Nir Timmons MD 03/17/175 Ordering provider: Nir Timmons MD Authorized by: Nir Timmons MD Frequency: Once 03/17/17 1800 - 1 Occurrences Released by: Patti Garcia RN 03/17/17 0982 Questions: Date Hemodialysis to be performed: 03/18/2017 [...] Occurrences Released by: Patti Garcia RN 03/17/17 9884 Questions: Date Hemodialysis to be performed: 03/18/2017 [...] 100 MG/DL Specimen Performing Laboratory MAIN LAB [address] [place] [address] * POC GLUCOSE (03/18/2017 11:44 AM) Component Value Ref Range Glucose, POC 157 (H) 70 - 100 MG/DL Specimen Performing Laboratory MAIN LAB [address] [place] [address] * POC GLUCOSE (03/18/2017 10:03 AM) Component Value Ref Range Glucose, POC 194 (H) 70 - 100 MG/DL Specimen Performing Laboratory [facility] [address] [place] [address] * POC GLUCOSE (03/18/2017 3:41 AM) Component Value Ref Range Glucose, POC 162 (H) 70 - 100 MG/DL Specimen Performing Laboratory [facility] [address] [place] [address] * CBC AND DIFF (03/18/2017 3:40 AM) [...] - 0.20 K/UL Specimen Performing Laboratory Blood [facility] [address] [place] [address] 14305 * BLOOD GASES, ARTERIAL (03/18/2017 3:40 AM) Component Value Ref Range pH-Arterial 7.28 (L) 7.35 - 7.45 pCO2-Arterial 33 (L) 35 - 45 MMHG pO2-Arterial 96 80 - 100 MMHG Base Deficit-Arterial 10.4 MMOL/L O2 Sat-Arterial 97.0 95 - 99 % Gjhvetybmmh-JLD-Pbv 16.1 (L) 21 - 28 MMOL/L Specimen Performing Laboratory Blood, arterial - Blood [facility] MAIN [facility] [address] [place] [address] * IONIZED CALCIUM (03/18/2017 3:40 AM) Component Value Ref Range Ionized Calcium 1.22 1.0 - 1.3 MMOL/L Specimen Performing Laboratory Blood [facility]IN [facility] [address] [place] [address] * PHOSPHORUS (03/18/2017 3:40 AM) Component Value Ref Range Phosphorus 9.2 (H) 2.0 - 4.0 MG/DL Specimen Performing Laboratory Blood [facility]IN [facility] [address] [place] [address] * MAGNESIUM (03/18/2017 3:40 AM) Component Value Ref Range Magnesium 2.6 1.6 - 2.6 mg/dL Specimen Performing Laboratory Blood [facility]IN [facility] [address] [place] [address] * BASIC METABOLIC PANEL (03/18/2017 3:40 AM) [...] Performing Laboratory Blood [facility] [address] [place] [address] * ABDOMEN AP ONLY (03/17/2017 9:28 PM) [...] Interface, Radiant Results - 03/18/2017 8:23 AM DOG WARDEN Corpak placement. Technique: Single portable AP supine [...] Specimen Performing Laboratory [facility] [address] [place] [address] * POC GLUCOSE (03/17/2017 4:51 PM) Component Value Ref Range Glucose, POC 153 (H) 70 - 100 MG/DL Specimen Performing Laboratory [facility] [address] [place] [address] * POC GLUCOSE (03/17/2017 12:40 PM) Component Value Ref Range Glucose, POC 185 (H) 70 - 100 MG/DL Specimen Performing Laboratory [facility] [address] [place] [address] * POC GLUCOSE (03/17/2017 9:07 AM) Component Value Ref Range Glucose, POC 147 (H) 70 - 100 MG/DL Specimen Performing Laboratory MAIN LAB [address] [place] [address] * CT CHEST W CONTRAST (03/17/2017 8:33 [...] Interface, Radiant Results - 03/17/2017 12:[address] Chest Clinical Indication: Male, 51 years [...] 1.3 MMOL/L Specimen Performing Laboratory MAIN LAB [address] [place] [address] 18782 * POC SODIUM (03/17/2017 5:29 AM) Component Value Ref Range Sodium-POC 135 (L) 137 - 147 MMOL/L Specimen Performing Laboratory MAIN LAB [address] [place] [address]63 * POC POTASSIUM (03/17/2017 5:29 AM) Component Value Ref Range Potassium-POC 3.8 3.5 - 5.1 MMOL/L Specimen Performing Laboratory MAIN LAB [address] [place] [address] 47325 * POC HEMATOCRIT (03/17/2017 5:29 AM) Component Value Ref Range Hemoglobin POC 9.2 (L) 13.5 - 16.5 GM/DL Hematocrit POC 27.0 (L) 40 - 50 % Specimen Performing Laboratory MAIN LAB [address] [place] [address] 30614 * POC BLOOD GAS ARTERIAL (03/17/2017 5:29 AM) Component Value Ref Range PH-ART-POC 7.35 7.35 - 7.45 NQK1-BET-QAX 40 35 - 45 MMHG PO2-ART-POC 90 80 - 100 MMHG Base Def-ART-POC 4.0 MMOL/L O2 Sat-ART-POC 97.0 95 - 99 % Kxoapmgovks-WRH-LLA 22.0 21 - 28 MMOL/L Specimen Performing Laboratory MAIN LAB [address] [place] [address] 97693 * BLOOD GASES, ARTERIAL (03/17/2017 5:27 AM) Component Value Ref Range pH-Arterial 7.32 (L) 7.35 - 7.45 pCO2-Arterial 41 35 - 45 MMHG pO2-Arterial 108 (H) 80 - 100 MMHG Base Deficit-Arterial 4.7 MMOL/L O2 Sat-Arterial 98.0 95 - 99 % Lbnddtvbrtp-CNC-Qbp 20.5 (L) 21 - 28 MMOL/L Specimen Performing Laboratory Blood, arterial - Blood MAIN LAB [address] [place] [address] * LIPASE (03/17/2017 4:13 AM) Component Value Ref Range Lipase 45 11 - 82 U/L Specimen Performing Laboratory MAIN LAB [address] [place], [place] [address] * AMYLASE (03/17/2017 4:13 AM) Component Value Ref Range Amylase 86 24 - 100 U/L Specimen Performing Laboratory MAIN LAB [address] [place] [address] * CBC AND DIFF (03/17/2017 4:13 AM) [...] K/UL Specimen Performing Laboratory Blood MAIN LAB [address] [place] [address] * IONIZED CALCIUM (03/17/2017 4:13 AM) Component Value Ref Range Ionized Calcium 1.17 1.0 - 1.3 MMOL/L Specimen Performing Laboratory Blood MAIN LAB [address] [place] [address] 75702 * PHOSPHORUS (03/17/2017 4:13 AM) Component Value Ref Range Phosphorus 6.6 (H) 2.0 - 4.0 MG/DL Specimen Performing Laboratory Blood MAIN LAB [address] [place] [address] 35177 * MAGNESIUM (03/17/2017 4:13 AM) Component Value Ref Range Magnesium 2.4Comment: SLT HEMOLYSIS 1.6 - 2.6 mg/dL Specimen Performing Laboratory Blood MAIN LAB [address] [place] [address] 68781 * BASIC METABOLIC PANEL (03/17/2017 4:13 AM) [...] Specimen Performing Laboratory Blood [facility] [address] [place] [address] 59928 * POC GLUCOSE (03/17/2017 4:00 AM) Component Value Ref Range Glucose, POC 142 (H) 70 - 100 MG/DL Specimen Performing Laboratory MAIN LAB [address] [place] [address] * POC GLUCOSE (03/16/2017 10:18 PM) Component Value Ref Range Glucose, POC 147 (H) 70 - 100 MG/DL Specimen Performing Laboratory MAIN LAB [address] [place] [address] * CHEST SINGLE VIEW (03/16/2017 10:10 PM) [...] Interface, Radiant Results - 03/17/2017 11:49 AM DOG WARDEN CHEST SINGLE VIEW Clinical Indication: Male, 51 [...] Interface, Radiant Results - 03/17/2017 11:49 AM DOG WARDEN CHEST SINGLE VIEW Clinical Indication: Male, 51 [...] O2 Sat-Arterial 95.1 95 - 99 % Tbxtxckbebn-NPO-Cli 23.4 21 - 28 MMOL/L Specimen Performing Laboratory Blood, arterial - Blood [facility] [address] [place] [address] * HEMODIALYSIS INPATIENT (03/16/2017 6:13 PM) Narrative [...] bed. 1530 B/P in the 200s systolic. animal assistant giving meds. UF increased to 3.5 liters [...] bed. 1530 B/P in the 200s systolic. animal assistant giving meds. UF increased to 3.[address] Cardona. 1615 BP remains above 200 systolic. ICU nurse addressing B/P. 1745 Dialysis complete. UF total was 4 liters. Phi RN given report. * POC GLUCOSE (03/16/2017 5:18 PM) Component Value Ref Range Glucose, POC 127 (H) 70 - 100 MG/DL Specimen Performing Laboratory [facility] [address] [place] [address] * CBC AND DIFF (03/16/2017 2:10 PM) [...] K/UL Specimen Performing Laboratory Blood MAIN LAB [address] [place] [address] * POC GLUCOSE (03/16/2017 11:56 AM) Component Value Ref Range Glucose, POC 193 (H) 70 - 100 MG/DL Specimen Performing Laboratory MAIN LAB [address] [place] [address] * BETA HYDROXYBUTYRATE (KETONES) (03/16/2017 11:20 AM) Component Value Ref Range Beta Hydroxybutyrate 0.1 <0.3 MMOL/L Comment: Beta hydroxybutyrate (BOHB) is the most abundant ketone (78%), followed by acetoacetate (20%) and acetone (2%). Measurement BOHB is recommended to assess ketones in DKA. Expected BOHB Results for DKA: Initial presentation high/increasing During treatment decreasing Resolved decreasing/normal Specimen Performing Laboratory Blood MAIN LAB [address] [place] [address] * LACTIC ACID(LACTATE) (03/16/2017 11:20 AM) Component Value Ref Range Lactic Acid 0.8 0.5 - 2.0 MMOL/L Specimen Performing Laboratory Blood MAIN LAB [address] [place] [address] 26828 * POC GLUCOSE (03/16/2017 7:59 AM) Component Value Ref Range Glucose, POC 191 (H) 70 - 100 MG/DL Specimen Performing Laboratory MAIN LAB [address] [place], [place] [id number] * CHEST SINGLE VIEW (03/16/2017 6:32 AM) [...] however, the tip is not in the exvzl-xa-godj. The heart size remains enlarged. No pulmonary vascular congestion is identified. There is been interval increased left pleural effusion and left basilar consolidation. The right lung remains clear focal consolidation or pleural effusion. No pneumothorax is identified. Procedure Note Interface, Radiant Results - 03/16/2017 11:22 AM DOG WARDEN Exam: CHEST SINGLE VIEW History: left sided pleural effusion Comparison: Portable chest dated 03/14/2017.. Findings: The endotracheal tube and esophageal temperature probe have been removed. An enteric tube is again seen and can be followed below the diaphragm, however, the tip is not in the opxjy-ks-yhra. The heart size remains enlarged. No pulmonary [...] O2 Sat-Arterial 96.3 95 - 99 % Kmeflkdpqua-QVM-Vrx 16.5 (L) 21 - 28 MMOL/L Specimen Performing Laboratory Blood, arterial - Blood MAIN LAB [address] [place] [address] 14718 * IONIZED CALCIUM (03/16/2017 5:07 AM) Component Value Ref Range Ionized Calcium 1.14 1.0 - 1.3 MMOL/L Specimen Performing Laboratory Blood MAIN LAB [address] [place] [address] 659[address] * PHOSPHORUS (03/16/2017 5:07 AM) Component Value Ref Range Phosphorus 9.4 (H) 2.0 - 4.0 MG/DL Specimen Performing Laboratory Blood MAIN LAB [address] [place] [address] 34540 * MAGNESIUM (03/16/2017 5:07 AM) Component Value Ref Range Magnesium 2.4 1.6 - 2.6 mg/dL Specimen Performing Laboratory Blood MAIN LAB [address] [place], [place] [id number] * BASIC METABOLIC PANEL (03/16/2017 5:07 AM) [...] questions. Specimen Performing Laboratory Blood MAIN LAB [address] [place] [address] 23236 * POC GLUCOSE (03/16/2017 4:57 AM) Component Value Ref Range Glucose, POC 162 (H) 70 - 100 MG/DL Specimen Performing Laboratory MAIN LAB [address] [place] [address] 31563 * POC GLUCOSE (03/15/2017 8:24 PM) Component Value Ref Range Glucose, POC 182 (H) 70 - 100 MG/DL Specimen Performing Laboratory MAIN LAB [address] [place] [address] 21927 * POC GLUCOSE (03/15/2017 5:26 PM) Component Value Ref Range Glucose, POC 163 (H) 70 - 100 MG/DL Specimen Performing Laboratory MAIN LAB [address] [place] [address]22 * POC GLUCOSE (03/15/2017 12:10 PM) Component Value Ref Range Glucose, POC 162 (H) 70 - 100 MG/DL Specimen Performing Laboratory MAIN LAB [address] [place] [address] 30286 * POC GLUCOSE (03/15/2017 8:19 AM) Component Value Ref Range Glucose, POC 163 (H) 70 - 100 MG/DL Specimen Performing Laboratory MAIN LAB [address] [place] [address] 97[address] * BLOOD GASES, ARTERIAL (03/15/2017 3:30 AM) Component Value Ref Range pH-Arterial 7.32 (L) 7.35 - 7.45 pCO2-Arterial 44 35 - 45 MMHG pO2-Arterial 145 (H) 80 - 100 MMHG Base Deficit-Arterial 3.7 MMOL/L O2 Sat-Arterial 99.5 (H) 95 - 99 % Oeynnxlcexr-ONF-Pzf 21.3 21 - 28 MMOL/L Specimen Performing Laboratory Blood, arterial - Blood [facility] [address] [place] [address] 88809 * IONIZED CALCIUM (03/15/2017 3:30 AM) Component Value Ref Range Ionized Calcium 1.16 1.0 - 1.3 MMOL/L Specimen Performing Laboratory Blood MAIN LAB [address] [place] [address] 21736 * PHOSPHORUS (03/15/2017 3:30 AM) Component Value Ref Range Phosphorus 7.5 (H) 2.0 - 4.0 MG/DL Specimen Performing Laboratory Blood MAIN LAB [address] [place] [address] 50376 * MAGNESIUM (03/15/2017 3:30 AM) Component Value Ref Range Magnesium 2.2 1.6 - 2.6 mg/dL Specimen Performing Laboratory Blood MAIN LAB [address] [place] [address] 43509 * BASIC METABOLIC PANEL (03/15/2017 3:30 AM) [...] questions. Specimen Performing Laboratory Blood MAIN LAB [address] [place] [address] * POC GLUCOSE (03/15/2017 2:19 AM) Component Value Ref Range Glucose, POC 193 (H) 70 - 100 MG/DL Specimen Performing Laboratory MAIN LAB [address] [place] [address] 63[address] * POC GLUCOSE (03/14/2017 8:04 PM) Component Value Ref Range Glucose, POC 172 (H) 70 - 100 MG/DL Specimen Performing Laboratory MAIN LAB [address] [place] [address] 79597 * POC GLUCOSE (03/14/2017 5:11 PM) Component Value Ref Range Glucose, POC 206 (H) 70 - 100 MG/DL Specimen Performing Laboratory MAIN LAB [address] [place] [address] 55797 * CHEST SINGLE VIEW (03/14/2017 5:08 PM) [...] the diaphragm and projects out of the sbvxl-eg-rgnt. Metallic wire is noted with tip overlying the tiara which may represent a guidewire. Persistent cardiomegaly without pulmonary venous congestion. Improvement in moderate left pleural effusion with adjacent left lung base consolidation. No pneumothorax. Procedure Note Interface, Radiant Results - 03/16/2017 12:03 AM DOG WARDEN Procedure: CHEST SINGLE VIEW Clinical Indication: Status post thoracentesis. Comparison: Chest radiograph March 12, 2017 FINDINGS: Single portable semiupright AP chest radiograph was obtained. Endotracheal tube remains in similar position. Exchange of gastric tube for enteric tube which courses below the diaphragm and projects out of the zgody-ji-wcyd. Metallic wire is noted with tip overlying [...] % Specimen Performing Laboratory MAIN LAB [address] [place] [address] * CULTURE-TB (AFB) (03/14/2017 4:30 PM) Component Value Ref Range Battery Name AFB CULTURE Specimen Description PLEURAL FLUID L pleural space Special Requests NONE Culture NO GROWTH OF MYCOBACTERIA AT 6 WEEKS Report Status FINAL 04/29/2017 Specimen Performing Laboratory Pleural Fluid MAIN LAB [address] [place] [address] * CULTURE-FUNGAL,OTHER (03/14/2017 4:30 PM) Component Value Ref Range Battery Name FUNGUS CULTURE Specimen Description PLEURAL FLUID L pleural space Special Requests NONE Culture NO GROWTH OF FUNGUS AT 4 WEEKS Report Status FINAL 04/15/2017 Specimen Performing Laboratory Pleural Fluid MAIN LAB [address] [place], [place] [id number] * GRAM STAIN (03/14/2017 4:30 PM) Component Value Ref Range Battery Name GRAM STAIN Specimen Description PLEURAL FLUID L pleural space Special Requests NONE Gram Stain RARE NEUTROPHILS MANY RBC'S NO ORGANISMS SEEN Report Status FINAL 03/15/2017 Specimen Performing Laboratory Pleural Fluid MAIN LAB [address] [place] [address] 90588 * CULTURE-WOUND/TISSUE/FLUID(AEROBIC ONLY)W/SENSITIVITY (03/14/2017 4:30 PM) Component Value Ref Range Battery Name ROUTINE CULTURE Specimen Description PLEURAL FLUID L pleural space Special Requests NONE Direct Gram Stain RARE NEUTROPHILS MANY RBC'S NO ORGANISMS SEEN Culture NO GROWTH 5 DAYS Report Status FINAL 03/19/2017 Specimen Performing Laboratory Pleural Fluid MAIN LAB [address] [place], [place] [id number] * PLEURAL FLUID ALBUMIN (03/14/2017 4:30 PM) Component Value Ref Range Pleural Fluid Albumin 2.3Comment: Pleural fluid albumin gradient >1.2 g/ dL g/dL is suggestive of an exudate Specimen Performing Laboratory Pleural Fluid MAIN LAB [address] [place], [place] [id number] * PLEURAL FLUID TOTAL BILIRUBIN (03/14/2017 4:30 PM) Component Value Ref Range Pleural Fluid Total 2.4 mg/dL Bilirubin Comment: Pleural fluid to serum bilirubin ratio of 0.6 suggests the presence of an exudate Specimen Performing Laboratory Pleural Fluid MAIN LAB [address] [place], [place] [id number] * PLEURAL FLUID GLUCOSE (03/14/2017 4:30 PM) Component Value Ref Range Pleural Fluid Glucose 160 (H) 70 - 100 mg/dL Comment: Glucose <60 mg/dL associated with parapneumonic effusion, tuberculosis, malignancy, empyema, and rheumatoid disease Specimen Performing Laboratory Pleural Fluid MAIN LAB [address] [place], [place] [id number] * PLEURAL FLUID LACTATE DEHYDROGENASE (03/14/2017 4:30 PM) Component Value Ref Range Pleural Fluid Lactate 255 (H)Comment: Higher levels suggestive of 67 - 140 U/L Dehydrogenase exudate Specimen Performing Laboratory Pleural Fluid MAIN LAB [address] [place] [address] 04274 * PLEURAL FLUID PH (03/14/2017 4:30 PM) Component Value Ref Range Pleural Fluid Ph 7.70 (H) 7.60 - 7.66 Specimen Performing Laboratory Pleural Fluid MAIN LAB [address] [place] [address] 47856 * PLEURAL FLUID TRIGLYCERIDES (03/14/2017 4:30 PM) Component Value Ref Range Pleural Fluid 20 mg/dL Triglycerides Comment: Triglycerides >110 mg/dL is suggestive of a chylothorax. Triglycerides <50 mg/dL is suggestive of pseudochylothorax. Specimen Performing Laboratory Pleural Fluid MAIN LAB [address] [place] [address] 06554 * PLEURAL FLUID TOTAL PROTEIN (03/14/2017 4:30 PM) Component Value Ref Range Pleural Fluid Total 3.8 (H)Comment: Serum to pleural fluid protein <1.1 g/ dL Protein gradient >3.1 g/dL is suggestive of an exudate Specimen Performing Laboratory Pleural Fluid MAIN LAB [address] [place], [place] [id number] * CELL COUNT W/DIFF-FLUIDS (03/14/2017 4:30 PM) [...] Laboratory Fluid - Pleural Fluid MAIN LAB [address] [place] [address] 90077 * POC GLUCOSE (03/14/2017 12:25 PM) Component Value Ref Range Glucose, POC 161 (H) 70 - 100 MG/DL Specimen Performing Laboratory MAIN LAB [address] [place] [address] 99907 * HEMODIALYSIS INPATIENT (03/14/2017 10:41 AM) Narrative Germaine Covarrubias RN 03/14/2017 10:41 AM micropaleontologist in patient's room. Patient sedated and on [...] AM) Rose Covarrubias RN 03/14/2017 10:41 AM micropaleontologist in patient's room. Patient sedated and on [...] returned manually to patient. Machine exchanged. * NON-ORNAMENTAL IRONWORKER HELPER CYTOLOGY (BODY FLUIDS/TISSUE) (03/14/2017 8:49 AM) Component Value Ref Range Cytology [facility] [email or web address] Department of Pathology and Laboratory Medicine [address] [place] [address] Surgical Pathology Office: [phone] CYTOLOGY REPORT NAME: NAREN MAYFIELD CYTOLOGY #: [id number] MR #: [id number] ALT ID #: BILLING #: [id number] LOCATION: [facility] DATE OF PROCEDURE: 03/14/2017 AGE: 51 [...] 70 - 100 MG/DL Specimen Performing Laboratory [facility] [address] [place] [address] * BLOOD GASES, ARTERIAL (03/14/2017 5:00 AM) Component Value Ref Range pH-Arterial 7.26 (L) 7.35 - 7.45 pCO2-Arterial 41 35 - 45 MMHG pO2-Arterial 109 (H) 80 - 100 MMHG Base Deficit-Arterial 8.2 MMOL/L O2 Sat-Arterial 98.0 95 - 99 % Buqyuovpnau-APD-Rrm 17.8 (L) 21 - 28 MMOL/L Specimen Performing Laboratory Blood, arterial - Blood [facility] [address] [place] [address] * IONIZED CALCIUM (03/14/2017 5:00 AM) Component Value Ref Range Ionized Calcium 1.11 1.0 - 1.3 MMOL/L Specimen Performing Laboratory Blood [facility] [address] [place] [address] 88673 * LDH-LACTATE DEHYDROGENASE (03/14/2017 3:15 AM) Component Value Ref Range Lactate Dehydrogenase 225 (H) 100 - 210 U/L Specimen Performing Laboratory [facility] [address] [place] [address] * CHEM 7 ADD ON (03/14/2017 3:15 AM) Component Value Ref Range Total Protein 7.2 6.0 - 8.0 G/DL Total Bilirubin 0.5 0.3 - 1.2 MG/DL Albumin 3.6 3.5 - 5.0 G/DL Alk Phosphatase 71 25 - 110 U/L AST (SGOT) 21 7 - 40 U/L ALT (SGPT) 3 (L) 7 - 56 U/L Specimen Performing Laboratory MAIN LAB [address] [place] [address] 37791 * LIPASE (03/14/2017 3:15 AM) Component Value Ref Range Lipase 26 11 - 82 U/L Specimen Performing Laboratory MAIN LAB [address] [place] [address] 70457 * AMYLASE (03/14/2017 3:15 AM) Component Value Ref Range Amylase 115 (H) 24 - 100 U/L Specimen Performing Laboratory [facility] [address] [place] [address] 67550 * LIPID PROFILE (03/14/2017 3:15 AM) Component [...] less than 130 mg/dL. Specimen Performing Laboratory [facility] [address] [place] [address] 59911 * PHOSPHORUS (03/14/2017 3:15 AM) Component Value Ref Range Phosphorus 9.1 (H) 2.0 - 4.0 MG/DL Specimen Performing Laboratory Blood [facility] [address] [place] [address] 67018 * MAGNESIUM (03/14/2017 3:15 AM) Component Value Ref Range Magnesium 2.7 (H) 1.6 - 2.6 mg/dL Specimen Performing Laboratory Blood [facility] [address] [place] [address] 32589 * BASIC METABOLIC PANEL (03/14/2017 3:15 AM) [...] questions. Specimen Performing Laboratory Blood MAIN LAB [address] [place] [address] 64586 * OSMOLALITY (03/14/2017 3:15 AM) Component Value Ref Range Osmolality 312 (H) 280 - 307 MOSMOL/KG Specimen Performing Laboratory Blood MAIN LAB [address] [place] [address] 25420 * FIBRINOGEN (03/14/2017 3:15 AM) Component Value Ref Range Fibrinogen 693 (H) 200 - 400 MG/DL Specimen Performing Laboratory Blood MAIN LAB [address] [place] [address] 99398 * CBC AND DIFF (03/14/2017 3:15 AM) [...] - 0.20 K/UL Specimen Performing Laboratory Blood [facility] [address] [place] [address] 48772 * POC GLUCOSE (03/14/2017 3:11 AM) Component Value Ref Range Glucose, POC 82 70 - 100 MG/DL Specimen Performing Laboratory [facility] [address] [place] [address] 62768 * POC GLUCOSE (03/13/2017 9:40 PM) Component Value Ref Range Glucose, POC 182 (H) 70 - 100 MG/DL Specimen Performing Laboratory [facility] [address] [place] [address] 47644 * POC GLUCOSE (03/13/2017 4:45 PM) Component Value Ref Range Glucose, POC 152 (H) 70 - 100 MG/DL Specimen Performing Laboratory [facility] [address] [place], [place] [id number] * CBC (03/13/2017 4:25 PM) Component Value [...] - 11 FL Specimen Performing Laboratory Blood [facility] [address] [place], [place] [id number] * TEG WITH KAOLIN (03/13/2017 4:25 PM) [...] Laboratory [facility] MAIN LAB [address] [place] [address] * CT ABD/PELV WO CONTRAST (03/13/2017 12:27 [...] Interface, Radiant Results - 03/13/2017 4:[address] ABDOMEN AND PELVIS Clinical Indication: Male, [...] Screen NEG Electronic Crossmatch YES Unit Number [id number] Blood Component Type RBC,ADSOL,LEUKO REDUCED Unit Division 0 Status OF Unit TRANSFUSED Transfusion Status OK TO TRANSFUSE Crossmatch Result COMPATIBLE,ELECTRONIC Specimen Performing Laboratory Blood MAIN LAB [address] [place] [address] * C DIFFICILE BY PCR (03/13/2017 10:30 AM) Component Value Ref Range Battery Name C DIFFICILE PCR Specimen Description FECES Special Requests NONE C. Difficile Toxin B PCR NEGATIVE-wait 7 days to repeat test Report Status FINAL 03/14/2017 Specimen Performing Laboratory Feces MAIN LAB [address] [place] [address] * POC GLUCOSE (03/13/2017 10:24 AM) Component Value Ref Range Glucose, POC 152 (H) 70 - 100 MG/DL Specimen Performing Laboratory [facility] MAIN LAB [address] [place] [address] * CT BRAIN PERF (03/13/2017 9:04 AM) [...] Interface, Radiant Results - 03/13/2017 9:44 AM DOG WARDEN EXAM: CTA HEAD AND CT PERFUSION HISTORY: [...] Interface, Radiant Results - 03/13/2017 9:44 AM DOG WARDEN EXAM: CTA HEAD AND CT PERFUSION HISTORY: [...] O2 Sat-Arterial 98.7 95 - 99 % Cfyaribbkxx-YBF-Pal 21.9 21 - 28 MMOL/L Specimen Performing Laboratory Blood, arterial - Blood MAIN LAB [address] [place] [address] * BLOOD GASES, ARTERIAL (03/13/2017 3:44 AM) Component Value Ref Range pH-Arterial 7.37 7.35 - 7.45 pCO2-Arterial 42 35 - 45 MMHG pO2-Arterial 99 80 - 100 MMHG Base Deficit-Arterial 1.1 MMOL/L O2 Sat-Arterial 97.3 95 - 99 % Wzkywoutfxv-FAC-Wef 23.5 21 - 28 MMOL/L Specimen Performing Laboratory Blood, arterial - Blood MAIN LAB [address] [place] [address] * IONIZED CALCIUM (03/13/2017 3:44 AM) Component Value Ref Range Ionized Calcium 1.11 1.0 - 1.3 MMOL/L Specimen Performing Laboratory Blood MAIN LAB [address] [place] [address] * PHOSPHORUS (03/13/2017 3:44 AM) Component Value Ref Range Phosphorus 6.6 (H) 2.0 - 4.0 MG/DL Specimen Performing Laboratory Blood MAIN LAB [address] [place] [address] * MAGNESIUM (03/13/2017 3:44 AM) Component Value Ref Range Magnesium 2.2 1.6 - 2.6 mg/dL Specimen Performing Laboratory Blood MAIN LAB [address] [place] [address] * CBC AND DIFF (03/13/2017 3:44 AM) [...] Specimen Performing Laboratory Blood MAIN LAB [address] [place] [address] * BASIC METABOLIC PANEL (03/13/2017 3:44 AM) [...] Specimen Performing Laboratory Blood MAIN LAB [address] [place] [address] * POC GLUCOSE (03/13/2017 3:42 AM) Component Value Ref Range Glucose, POC 129 (H) 70 - 100 MG/DL Specimen Performing Laboratory MAIN LAB [address] [place] [address] * POC GLUCOSE (03/12/2017 11:25 PM) Component Value Ref Range Glucose, POC 197 (H) 70 - 100 MG/DL Specimen Performing Laboratory [facility] MAIN [facility] [address] [place] [address] * POC GLUCOSE (03/12/2017 5:14 PM) Component Value Ref Range Glucose, POC 139 (H) 70 - 100 MG/DL Specimen Performing Laboratory MAIN LAB [address] [place] [address] * HEMODIALYSIS INPATIENT (03/12/2017 4:52 PM) Narrative [...] updated on pt. Pt remains in room [id number] at this time. * HEMODIALYSIS DATE (03/12/2017 [...] updated on pt. Pt remains in room [id number] at this time. * TRANSFUSE RBC'S NON-BLEEDING PT (03/12/2017 1:48 PM) Specimen Performing Laboratory Blood * TRANSFUSE RBC'S NON-BLEEDING PT (03/12/2017 1:48 PM) Specimen Performing Laboratory Blood * POC GLUCOSE (03/12/2017 11:49 AM) Component Value Ref Range Glucose, POC 165 (H) 70 - 100 MG/DL Specimen Performing Laboratory [facility] MAIN LAB [address] [place] [address] * ABDOMEN AP ONLY (03/12/2017 11:08 AM) [...] Interface, Radiant Results - 03/12/2017 11:36 AM DOG WARDEN Supine abdomen CLINICAL HISTORY: Post feeding tube [...] Sat-Arterial 92.3 (L) 95 - 99 % Imjibaoktlb-OUW-Pxr 20.9 (L) 21 - 28 MMOL/L Specimen Performing Laboratory Blood, arterial - Blood [facility] MAIN LAB [address] [place] [address] * ECG-SCAN (03/12/2017 10:05 AM) Narrative Ordered [...] level <7%. Specimen Performing Laboratory MAIN LAB [address] [place] [address] * BLOOD GASES, ARTERIAL (03/12/2017 3:44 AM) Component Value Ref Range pH-Arterial 7.35 7.35 - 7.45 pCO2-Arterial 42 35 - 45 MMHG pO2-Arterial 132 (H) 80 - 100 MMHG Base Deficit-Arterial 2.1 MMOL/L O2 Sat-Arterial 98.9 95 - 99 % Tjphjkpipab-KHC-Eua 22.7 21 - 28 MMOL/L Specimen Performing Laboratory Blood, arterial - Blood MAIN LAB [address] [place] [address] * IONIZED CALCIUM (03/12/2017 3:44 AM) Component Value Ref Range Ionized Calcium 1.14 1.0 - 1.3 MMOL/L Specimen Performing Laboratory Blood MAIN LAB [address] [place] [address] * PHOSPHORUS (03/12/2017 3:44 AM) Component Value Ref Range Phosphorus 8.7 (H) 2.0 - 4.0 MG/DL Specimen Performing Laboratory Blood MAIN LAB [address] [place] [address] * MAGNESIUM (03/12/2017 3:44 AM) Component Value Ref Range Magnesium 2.2 1.6 - 2.6 mg/dL Specimen Performing Laboratory Blood MAIN LAB [address] [place] [address] * CBC AND DIFF (03/12/2017 3:44 AM) [...] Performing Laboratory Blood [facility] MAIN LAB [address] [place] [address] * BASIC METABOLIC PANEL (03/12/2017 3:44 AM) [...] Performing Laboratory Blood [facility] MAIN LAB [address] [place] [address] * CHEST SINGLE VIEW (03/12/2017 3:40 AM) [...] the diaphragm and projects out of the vcxlt-jt-hqjl. Persistent cardiomegaly without pulmonary venous congestion. Large left pleural effusion with adjacent consolidation. No pneumothorax. Procedure Note Interface, Radiant Results - 03/12/2017 11:09 AM DOG WARDEN Procedure: CHEST SINGLE VIEW Clinical Indication: Pleural effusion. Comparison: Chest radiograph March 10, 2017 FINDINGS: Single portable supine AP chest radiograph was obtained. Endotracheal tube with tip well above the tiara at the level of the clavicles. Gastric tube courses below the diaphragm and projects out of the bgvcv-jp-gses. Persistent cardiomegaly without pulmonary venous congestion. Large [...] Interface, Radiant Results - 03/11/2017 5:03 PM DOG WARDEN EXAM: CT HEAD HISTORY: , craniectomy last [...] Range BSA 2.35 m2 CV ECHO PV LEARN TO SWIM INSTRUCTOR TENZIN Anand LVIDD 5.9 4.2 - 5.9 [...] Gann RN 03/11/20172:41 PM 0900 Arrived in [facility] to set up for dialysis. Assessment completed and documented. Care of pt, respirator and all lines remains with his primary DRAFTER MARINETENZIN Jean. Left AVF assessed and found to [...] and paper tape. Report given to primary DRAFTER MARINETENZIN eJan. * TROPONIN-I (03/11/2017 8:43 AM) Component Value Ref Range Troponin-I 0.17 (H) 0.0 - 0.05 NG/ML Specimen Performing Laboratory Blood MAIN LAB [address] [place] [address] * TROPONIN-I (03/11/2017 6:07 AM) Component Value Ref Range Troponin-I 0.16 (H) 0.0 - 0.05 NG/ML Specimen Performing Laboratory Blood MAIN LAB [address] [place] [address] * IONIZED CALCIUM (03/11/2017 3:55 AM) Component Value Ref Range Ionized Calcium 1.05 1.0 - 1.3 MMOL/L Specimen Performing Laboratory MAIN LAB [address] [place] [address] * TROPONIN-I (03/11/2017 3:55 AM) Component Value Ref Range Troponin-I 0.15 (H) 0.0 - 0.05 NG/ML Specimen Performing Laboratory MAIN LAB [address] [place] [address] * BLOOD GASES, ARTERIAL (03/11/2017 3:55 AM) Component Value Ref Range pH-Arterial 7.36 7.35 - 7.45 pCO2-Arterial 41 35 - 45 MMHG pO2-Arterial 135 (H) 80 - 100 MMHG Base Deficit-Arterial 2.3 MMOL/L O2 Sat-Arterial 99.2 (H) 95 - 99 % Ssybphqidss-RUF-Kds 22.5 21 - 28 MMOL/L Specimen Performing Laboratory Blood, arterial - Blood MAIN LAB [address] [place], [place] [id number] * PHOSPHORUS (03/11/2017 3:55 AM) Component Value Ref Range Phosphorus 9.1 (H) 2.0 - 4.0 MG/DL Specimen Performing Laboratory Blood MAIN LAB [address] [place], [place] [id number] * MAGNESIUM (03/11/2017 3:55 AM) Component Value Ref Range Magnesium 2.1 1.6 - 2.6 mg/dL Specimen Performing Laboratory Blood MAIN LAB [address] [place] [address] * CBC AND DIFF (03/11/2017 3:55 AM) [...] Specimen Performing Laboratory Blood MAIN LAB [address] [place] [address] * BASIC METABOLIC PANEL (03/11/2017 3:55 AM) [...] Performing Laboratory Blood [facility] MAIN [facility] [address] [place] [address] * TROPONIN-I (03/11/2017 12:50 AM) Component Value Ref Range Troponin-I 0.13 (H) 0.0 - 0.05 NG/ML Specimen Performing Laboratory Blood [facility] MAIN LAB [address] [place] [address] * BLOOD GASES, ARTERIAL (03/11/2017 12:50 AM) Component Value Ref Range pH-Arterial 7.36 7.35 - 7.45 pCO2-Arterial 41 35 - 45 MMHG pO2-Arterial 140 (H) 80 - 100 MMHG Base Deficit-Arterial 2.1 MMOL/L O2 Sat-Arterial 99.3 (H) 95 - 99 % Btwobvzmbtu-HXH-Vip 22.7 21 - 28 MMOL/L Specimen Performing Laboratory Blood, arterial - Blood [facility] MAIN LAB [address] [place] [address] * FLUORO MOBILE IN OR (03/10/2017 10:18 [...] angiography is performed to evaluate the vasculature. GENETIC PHYSICIAN. Rohit RETAIL SPECIAL EVENT ASSOCIATE. David PGY-6 PROCEDURE. 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 Patient required emergent reoperation for neurologic change. CT perfusion demonstrates prolonged mean transit times involving the inferior division of the right MCA. Intraoperative angiography is performed to evaluate the vasculature. GENETIC PHYSICIAN. Rohit RETAIL SPECIAL EVENT ASSOCIATE. David PGY-6 PROCEDURE. Intraoperative angiography right internal [...] CT and then to OR for second time.Community Action Worker contacted and said patient may be done the next morning.Unit nurse also said patient may still have needles from outpatient dialysis unit in fistula. Patient already in OR. * POC IONIZED CALCIUM (03/10/2017 9:03 PM) Component Value Ref Range Ionized Calcium-POC 0.98 (L) 1.0 - 1.3 MMOL/L Specimen Performing Laboratory [facility] [address] [place] [address] * POC SODIUM (03/10/2017 9:03 PM) Component Value Ref Range Sodium-POC 134 (L) 137 - 147 MMOL/L Specimen Performing Laboratory MAIN LAB [address] [place] [address] 19027 * POC POTASSIUM (03/10/2017 9:03 PM) Component Value Ref Range Potassium-POC 4.0 3.5 - 5.1 MMOL/L Specimen Performing Laboratory [facility] [address] [place] [address]5 * POC HEMATOCRIT (03/10/2017 9:03 PM) Component Value Ref Range Hemoglobin POC 9.5 (L) 13.5 - 16.5 GM/DL Hematocrit POC 28.0 (L) 40 - 50 % Specimen Performing Laboratory [facility] [address] [place], [place] [phone] * POC BLOOD GAS ARTERIAL (03/10/2017 9:03 PM) Component Value Ref Range PH-ART-POC 7.34 (L) 7.35 - 7.45 FEX7-HXB-JSO 44 35 - 45 MMHG PO2-ART-POC 69 (L) 80 - 100 MMHG Base Def-ART-POC 2.0 MMOL/L O2 Sat-ART-POC 92.0 (L) 95 - 99 % Jpvpbgcqxrk-VLG-QVB 23.7 21 - 28 MMOL/L Specimen Performing Laboratory MAIN LAB [address] [place], [place] [id number] * TROPONIN-I (03/10/2017 8:50 PM) Component Value Ref Range Troponin-I 0.16 (H) 0.0 - 0.05 NG/ML Specimen Performing Laboratory [facility] [address] [place], [place] [id number] * PHOSPHORUS (03/10/2017 8:50 PM) Component Value Ref Range Phosphorus 8.1 (H) 2.0 - 4.0 MG/DL Specimen Performing Laboratory MAIN LAB [address] [place], [place] [id number] * CBC (03/10/2017 8:50 PM) Component Value [...] 11 FL Specimen Performing Laboratory MAIN LAB [address] [place] [address] * BASIC METABOLIC PANEL (03/10/2017 8:50 PM) [...] for questions. Specimen Performing Laboratory MAIN LAB [address] [place] [address] * PTT (APTT) (03/10/2017 8:50 PM) Component Value Ref Range APTT 29.8Comment: NOTE NEW REFERENCE RANGES 21.0 - 39.0 SEC Specimen Performing Laboratory Blood MAIN LAB [address] [place] [address] * PROTIME INR (PT) (03/10/2017 8:50 PM) Component Value Ref Range INR 1.3 (H) 0.8 - 1.2 Specimen Performing Laboratory Blood MAIN LAB [address] [place] [address] * CT BRAIN PERF (03/10/2017 8:35 PM) [...] Interface, Radiant Results - 03/10/2017 9:56 PM DOG WARDEN EXAM: CTA HEAD AND NECK, CTA BRAIN [...] Interface, Radiant Results - 03/10/2017 9:56 PM DOG WARDEN EXAM: CTA HEAD AND NECK, CTA BRAIN [...] 1.3 MMOL/L Specimen Performing Laboratory MAIN LAB [address] [place] [address] * POC SODIUM (03/10/2017 5:00 PM) Component Value Ref Range Sodium-POC 135 (L) 137 - 147 MMOL/L Specimen Performing Laboratory MAIN LAB [address] [place] [address] * POC POTASSIUM (03/10/2017 5:00 PM) Component Value Ref Range Potassium-POC 4.0 3.5 - 5.1 MMOL/L Specimen Performing Laboratory MAIN LAB [address] [place] [address] * POC HEMATOCRIT (03/10/2017 5:00 PM) Component Value Ref Range Hemoglobin POC 8.5 (L) 13.5 - 16.5 GM/DL Hematocrit POC 25.0 (L) 40 - 50 % Specimen Performing Laboratory MAIN LAB [address] [place] [address] * POC BLOOD GAS ARTERIAL (03/10/2017 5:00 PM) Component Value Ref Range PH-ART-POC 7.40 7.35 - 7.45 [id number] 37 35 - 45 MMHG PO2-ART-POC 76 (L) 80 - 100 MMHG Base Def-ART-POC 2.0 MMOL/L O2 Sat-ART-POC 95.0 95 - 99 % Yqfwbrnbfep-KHT-OVE 23.0 21 - 28 MMOL/L Specimen Performing Laboratory MAIN LAB [address] [place], [place] [id number] * POC IONIZED CALCIUM (03/10/2017 2:30 PM) Component Value Ref Range Ionized Calcium-POC 0.97 (L) 1.0 - 1.3 MMOL/L Specimen Performing Laboratory MAIN LAB [address] [place] [address] * POC SODIUM (03/10/2017 2:30 PM) Component Value Ref Range Sodium-POC 135 (L) 137 - 147 MMOL/L Specimen Performing Laboratory MAIN LAB [address] [place] [address] * POC POTASSIUM (03/10/2017 2:30 PM) Component Value Ref Range Potassium-POC 4.0 3.5 - 5.1 MMOL/L Specimen Performing Laboratory MAIN LAB [address] [place], [place] [id number] * POC HEMATOCRIT (03/10/2017 2:30 PM) Component Value Ref Range Hemoglobin POC 8.8 (L) 13.5 - 16.5 GM/DL Hematocrit POC 26.0 (L) 40 - 50 % Specimen Performing Laboratory MAIN LAB [address] [place] [address] * POC BLOOD GAS ARTERIAL (03/10/2017 2:30 PM) Component Value Ref Range PH-ART-POC 7.42 7.35 - 7.45 [id number]-SGP-IEX 37 35 - 45 MMHG PO2-ART-POC 72 (L) 80 - 100 MMHG Base Ex-ART-POC 0.0 MMOL/L O2 Sat-ART-POC 95.0 95 - 99 % Hwwbgiaahyb-AZE-GFI 24.0 21 - 28 MMOL/L Specimen Performing Laboratory MAIN LAB [address] [place], [place] [id number] * POC GLUCOSE (03/10/2017 12:10 PM) Component Value Ref Range Glucose, POC 90 70 - 100 MG/DL Specimen Performing Laboratory MAIN LAB [address] [place] [address] * POC IONIZED CALCIUM (03/10/2017 11:29 AM) Component Value Ref Range Ionized Calcium-POC 1.01 1.0 - 1.3 MMOL/L Specimen Performing Laboratory MAIN LAB [address] [place] [address] * POC SODIUM (03/10/2017 11:29 AM) Component Value Ref Range Sodium-POC 135 (L) 137 - 147 MMOL/L Specimen Performing Laboratory MAIN LAB [address] [place] [address] * POC POTASSIUM (03/10/2017 11:29 AM) Component Value Ref Range Potassium-POC 3.5 3.5 - 5.1 MMOL/L Specimen Performing Laboratory [facility] [address] [place] [address] * POC HEMATOCRIT (03/10/2017 11:29 AM) Component Value Ref Range Hemoglobin POC 8.5 (L) 13.5 - 16.5 GM/DL Hematocrit POC 25.0 (L) 40 - 50 % Specimen Performing Laboratory [facility] [address] [place] [address] * POC BLOOD GAS ARTERIAL (03/10/2017 11:29 AM) Component Value Ref Range PH-ART-POC 7.45 7.35 - 7.45 YDW4-JYV-NGX 36 35 - 45 MMHG PO2-ART-POC 86 80 - 100 MMHG Base Ex-ART-POC 1.0 MMOL/L O2 Sat-ART-POC 97.0 95 - 99 % Jklrvbwdfcm-RRJ-GYP 24.6 21 - 28 MMOL/L Specimen Performing Laboratory MAIN LAB [address] [place] [address] * POC IONIZED CALCIUM (03/10/2017 10:18 AM) Component Value Ref Range Ionized Calcium-POC 1.02 1.0 - 1.3 MMOL/L Specimen Performing Laboratory [facility] [address] [place] [address] * POC SODIUM (03/10/2017 10:18 AM) Component Value Ref Range Sodium-POC 135 (L) 137 - 147 MMOL/L Specimen Performing Laboratory [facility] [address] [place] [address] * POC POTASSIUM (03/10/2017 10:18 AM) Component Value Ref Range Potassium-POC 3.4 (L) 3.5 - 5.1 MMOL/L Specimen Performing Laboratory MAIN LAB [address] [place] [address] * POC HEMATOCRIT (03/10/2017 10:18 AM) Component Value Ref Range Hemoglobin POC 7.8 (L) 13.5 - 16.5 GM/DL Hematocrit POC 23.0 (L) 40 - 50 % Specimen Performing Laboratory [facility] MAIN LAB [address] [place] [address] * POC BLOOD GAS ARTERIAL (03/10/2017 10:18 AM) Component Value Ref Range PH-ART-POC 7.46 (H) 7.35 - 7.45 [id number]-YZW-SMF 35 35 - 45 MMHG PO2-ART-POC 90 80 - 100 MMHG Base Ex-ART-POC 1.0 MMOL/L O2 Sat-ART-POC 97.0 95 - 99 % Qdzvilazxqb-IXJ-XVT 25.0 21 - 28 MMOL/L Specimen Performing Laboratory [facility] MAIN LAB [address] [place] [address] * IR ARTERIOGRAM NEURO (03/10/2017 9:34 AM) [...] angiography is performed to evaluate the vasculature. GENETIC PHYSICIAN. Rohit RETAIL SPECIAL EVENT ASSOCIATE. David PGY-6 PROCEDURE. 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 Patient required emergent reoperation for neurologic change. CT perfusion demonstrates prolonged mean transit times involving the inferior division of the right MCA. Intraoperative angiography is performed to evaluate the vasculature. GENETIC PHYSICIAN. Rohit RETAIL SPECIAL EVENT ASSOCIATE. David PGY-6 PROCEDURE. Intraoperative angiography right internal [...] Interface, Radiant Results - 03/10/2017 10:16 AM DOG WARDEN ABDOMEN AP ONLY Indication: gastric tube placement [...] POS Specimen Performing Laboratory Blood MAIN LAB [address] [place], [place] [id number] * TRIGLYCERIDE (03/10/2017 3:25 AM) Component Value Ref Range Triglycerides 84 <150 MG/DL Specimen Performing Laboratory MAIN LAB [address] [place] [address] * IONIZED CALCIUM (03/10/2017 3:25 AM) Component Value Ref Range Ionized Calcium 1.01 1.0 - 1.3 MMOL/L Specimen Performing Laboratory Blood MAIN LAB [address] [place] [address] * PHOSPHORUS (03/10/2017 3:25 AM) Component Value Ref Range Phosphorus 6.1 (H) 2.0 - 4.0 MG/DL Specimen Performing Laboratory Blood MAIN LAB [address] [place] [address] * MAGNESIUM (03/10/2017 3:25 AM) Component Value Ref Range Magnesium 2.2 1.6 - 2.6 mg/dL Specimen Performing Laboratory Blood MAIN LAB [address] [place], [place] [id number] * CBC AND DIFF (03/10/2017 3:25 AM) [...] Specimen Performing Laboratory Blood MAIN LAB [address] [place] [address] * BASIC METABOLIC PANEL (03/10/2017 3:25 AM) [...] Specimen Performing Laboratory Blood MAIN LAB [address] [place] [address] * TYPE & CROSSMATCH (03/10/2017 3:25 AM) Component Value Ref Range Units Ordered 4 Crossmatch Expires 03/13/2017 Record Check 2ND TYPE REQUIRED ABO/RH(D) A POS Antibody Screen NEG Electronic Crossmatch YES Unit Number [id number] Blood Component Type RBC,ADSOL,LEUKO REDUCED Unit Division 0 Status OF Unit DISCARDED Transfusion Status OK TO TRANSFUSE Crossmatch Result COMPATIBLE,ELECTRONIC Unit Number [id number] Blood Component Type RBC,ADSOL,LEUKO REDUCED Unit Division 0 Status OF Unit TRANSFUSED Transfusion Status OK TO TRANSFUSE Crossmatch Result COMPATIBLE,ELECTRONIC Unit Number [id number] Blood Component Type RBC,ADSOL,LEUKO REDUCED Unit Division 0 Status OF Unit REL FROM ALLOC Transfusion Status OK TO TRANSFUSE Crossmatch Result COMPATIBLE,ELECTRONIC Unit Number [id number] Blood Component Type RBC,ADSOL,LEUKO REDUCED Unit Division 0 Status OF Unit REL FROM ALLOC Transfusion Status OK TO TRANSFUSE Crossmatch Result COMPATIBLE,ELECTRONIC Unit Number [id number] Blood Component Type RBC,ADSOL,LEUKO REDUCED Unit Division 0 Status OF Unit TRANSFUSED Transfusion Status OK TO TRANSFUSE Crossmatch Result COMPATIBLE,ELECTRONIC Specimen Performing Laboratory Blood [facility] MAIN LAB [address] [place] [address] * CHEST SINGLE VIEW (03/10/2017 1:47 AM) [...] Interface, Radiant Results - 03/10/2017 10:56 AM DOG WARDEN CHEST SINGLE VIEW Indication: Male, 51 years [...] costophrenic angles are not included within the xlovp-dg-nwph. No pneumothorax. Right AC joint arthrosis. Procedure Note Interface, Radiant Results - 03/09/2017 9:32 PM DOG WARDEN CHEST SINGLE VIEW Clinical history: Repositioned endotracheal [...] costophrenic angles are not included within the cojfm-qt-lagq. No pneumothorax. Right AC joint arthrosis. IMPRESSION [...] Specimen Performing Laboratory Urine MAIN LAB [address] [place] [address] * OPIATES-URINE RANDOM (03/09/2017 6:45 PM) Component Value Ref Range Opiates-Urine NEG NEG-NEG Comment: RESULTS WERE OBTAINED BY IMMUNOASSAY AND ARE PRESUMPTIVE ONLY. POSITIVE INDICATES THE PRESENCE OF SUBSTANCE WITH CHARACTERISTICS SIMILAR TO DRUG-DRUG CLASS OR METABOLITE IN CONC. EQUAL TO OR EXCEEDING VALUES LISTED. OPIATES 200 0 NG/ML Specimen Performing Laboratory Urine MAIN LAB [address] [place] [address] * COCAINE-URINE RANDOM (03/09/2017 6:45 PM) Component Value Ref Range Cocaine-Urine NEG NEG-NEG Comment: RESULTS WERE OBTAINED BY IMMUNOASSAY AND ARE PRESUMPTIVE ONLY. POSITIVE INDICATES THE PRESENCE OF SUBSTANCE WITH CHARACTERISTICS SIMILAR TO DRUG-DRUG CLASS OR METABOLITE IN CONC. EQUAL TO OR EXCEEDING VALUES LISTED. COCAINE 300 NG/ML Specimen Performing Laboratory Urine [facility] [address] [place] [address] * CANNABINOIDS-URINE RANDOM (03/09/2017 6:45 PM) Component Value Ref Range THC NEG NEG-NEG Comment: RESULTS WERE OBTAINED BY IMMUNOASSAY AND ARE PRESUMPTIVE ONLY. POSITIVE INDICATES THE PRESENCE OF SUBSTANCE WITH CHARACTERISTICS SIMILAR TO DRUG-DRUG CLASS OR METABOLITE IN CONC. EQUAL TO OR EXCEEDING VALUES LISTED. CANNABINOIDS 50 NG/ML Specimen Performing Laboratory Urine [facility] [address] [place] [address] * BENZODIAZEPINES-URINE RANDOM (03/09/2017 6:45 PM) Component Value Ref Range Benzodiazepines POS (A) NEG-NEG Comment: RESULTS WERE OBTAINED BY IMMUNOASSAY AND ARE PRESUMPTIVE ONLY. POSITIVE INDICATES THE PRESENCE OF SUBSTANCE WITH CHARACTERISTICS SIMILAR TO DRUG-DRUG CLASS OR METABOLITE IN CONC. EQUAL TO OR EXCEEDING VALUES LISTED. BENZODIAZEPINES 200 NG/ML Specimen Performing Laboratory Urine [facility] [address] [place] [address] * BARBITURATES-URINE RANDOM (03/09/2017 6:45 PM) Component Value Ref Range Barbiturates,Urine NEG NEG-NEG Comment: RESULTS WERE OBTAINED BY IMMUNOASSAY AND ARE PRESUMPTIVE ONLY. POSITIVE INDICATES THE PRESENCE OF SUBSTANCE WITH CHARACTERISTICS SIMILAR TO DRUG-DRUG CLASS OR METABOLITE IN CONC. EQUAL TO OR EXCEEDING VALUES LISTED. BARBITURATES 200 NG/ML Specimen Performing Laboratory Urine [facility] [address] [place] [address] * AMPHETAMINES-URINE RANDOM (03/09/2017 6:45 PM) Component Value Ref Range Amphetamines POS (A) NEG-NEG Comment: RESULTS WERE OBTAINED BY IMMUNOASSAY AND ARE PRESUMPTIVE ONLY. POSITIVE INDICATES THE PRESENCE OF SUBSTANCE WITH CHARACTERISTICS SIMILAR TO DRUG-DRUG CLASS OR METABOLITE IN CONC. EQUAL TO OR EXCEEDING VALUES LISTED. AMPHETAMINES 1000 NG/ML Specimen Performing Laboratory Urine [facility] [address] [place] [address] * IONIZED CALCIUM (03/09/2017 6:43 PM) Component Value Ref Range Ionized Calcium 1.10 1.0 - 1.3 MMOL/L Specimen Performing Laboratory Blood [facility] [address] [place] [address] * BLOOD GASES, ARTERIAL (03/09/2017 6:43 PM) Component Value Ref Range pH-Arterial 7.37 7.35 - 7.45 pCO2-Arterial 50 (H) 35 - 45 MMHG pO2-Arterial 118 (H) 80 - 100 MMHG Base Excess-Arterial 3.3 MMOL/L O2 Sat-Arterial 98.6 95 - 99 % Bmfgvvsezfx-BQR-Ddz 27.4 21 - 28 MMOL/L Specimen Performing Laboratory Blood, arterial - Blood [facility] MAIN LAB [address] [place] [address] * PHOSPHORUS (03/09/2017 6:43 PM) Component Value Ref Range Phosphorus 6.0 (H) 2.0 - 4.0 MG/DL Specimen Performing Laboratory Blood [facility] MAIN LAB [address] [place] [id number] * MAGNESIUM (03/09/2017 6:43 PM) Component Value Ref Range Magnesium 2.1 1.6 - 2.6 mg/dL Specimen Performing Laboratory Blood [facility] MAIN LAB [address] [place] [address] * COMPREHENSIVE METABOLIC PANEL (03/09/2017 6:43 PM) [...] Specimen Performing Laboratory Blood MAIN LAB [address] [place] [id number] * PTT (APTT) (03/09/2017 6:43 PM) Component Value Ref Range APTT 31.9Comment: NOTE NEW REFERENCE RANGES 21.0 - 39.0 SEC Specimen Performing Laboratory Blood MAIN LAB [address] [place] [address] * PROTIME INR (PT) (03/09/2017 6:43 PM) Component Value Ref Range INR 1.3 (H) 0.8 - 1.2 Specimen Performing Laboratory Blood MAIN LAB [address] [place] [address] * CBC AND DIFF (03/09/2017 6:43 PM) [...] K/UL Specimen Performing Laboratory Blood MAIN LAB [address] [place], [place] [id number] * IR ARTERIOGRAM NEURO (03/09/2017 6:35 PM) Specimen Performing Laboratory [facility] RAD RESULTS Addenda Addendum by Lyly Rogel MD on 03/11/2017 10:05 AM Finalized by LYLY ROGEL M.D. on 03/11/2017 8:34 AM. Dictated by LYLY ROGEL M.D. on 03/11/2017 8:22 AM.Addendum: Left Common Femoral Vein Central Line Placement Under fluoroscopic guidance a 4 Citizen Of [place] 10 cm central venous line was placed [...] Fentanyl 100 mcg Contrast - 100 cc [id number] Total mGy - 1174 Anesthesia:conscious sedation Consent -The procedure and its risks, benefits, and alternative treatments were explained to the patient's family over the telephone and a witnessed telephone consent was obtained. Clinical History: Mr. Mayfield is a 51 year old male who presented to the [facility] and was found to have subarachnoid [...] establishing arterial access. RCCA Technique A 5 Citizen [place] 100 cm Vert catheter was advanced over a 150 cm 0.035 [place] wire over the aortic arch and into [...] under fluoroscopic and roadmap guidance over the [place] wire and images were obtained in biplane [...] therefore, hemostasis was achieved using a 6 Citizen [place] Angioseal closure device followed by manual pressure for 5 minutes. The patient was transported to the neuro ICU in stable clinical and hemodynamic conditions. Complications - none immediate Procedure Note Interface, Radiant Results - 03/11/2017 10:05 AM DOG WARDEN Cerebral Angiogram Indication - SAH with IPH [...] Fentanyl 100 mcg Contrast - 100 cc [id number] Total mGy - 1174 Anesthesia: conscious sedation Consent - The procedure and its risks, benefits, and alternative treatments were explained to the patient's family over the telephone and a witnessed telephone consent was obtained. Clinical History: Mr. Mayfield is a 51 year old male who presented to the [facility] and was found to have subarachnoid [...] establishing arterial access. RCCA Technique A 5 Citizen [place] 100 cm Vert catheter was advanced over a 150 cm 0.035 [place] wire over the aortic arch and into [...] under fluoroscopic and roadmap guidance over the [place] wire and images were obtained in biplane [...] therefore, hemostasis was achieved using a 6 Citizen [place] Angioseal closure device followed by manual pressure [...] Interface, Radiant Results - 03/09/2017 6:58 PM DOG WARDEN EXAM: CTA HEAD HISTORY: 51-year-old male, subarachnoid [...] opinions expressed in this report Finalized by RLOANDO UGARTE on 03/10/2017 10:53 AM. Dictated by [...] Interface, Radiant Results - 03/10/2017 10:56 AM DOG WARDEN CHEST SINGLE VIEW Indication: Male, 51 years [...] Diagnosis 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HCC) Subarachnoid hemorrhage Admitting Diagnoses Diagnosis subarachnoid hemorrhage Subarachnoid bleed (HCC) 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HCC) Subarachnoid hemorrhage Brain aneurysm Cerebral aneurysm, nonruptured 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HCC) Subarachnoid hemorrhage Acquired skull defect Other specified acquired deformity of head Administered Medications Medication Order MAR Action Action Date Dose Rate Site bacitracin (BACIIM) 50,000 Units in Given 03/10/2017 500 mL Ringer's 500 mL irrigation bottle 09:19 DOG WARDEN INTRA-PROCEDURE MED, Starting 03/10/17 at 0919, Until 03/10/17 at 1832, Intra-op bacitracin topical ointment Given 03/10/2017 1 Dose INTRA-PROCEDURE MED, Starting Sun 09:05 DOG WARDEN 03/10/17 at 0905, Until 03/10/17 at 1832, Intra-op lidocaine 1%/EPINEPHrine 1:100,000 Given 03/10/2017 4 mL Other injection 09:14 DOG WARDEN INTRA-PROCEDURE MED, Starting 03/10/17 at 0914, Until 03/10/17 at 1832, Intra-op in this encounter
--- OUTSIDE RECORDS SUMMARY | 2017-05-07 16:40 | XMS REPORT | Encounter Summary ---
Author Author [facility] Organization [facility] Address Unknown Phone Unavailable Care Team Providers Care Mortgage Field Inspector Name Role Phone No Pcp, Na PCP Unavailable Encounter Details Date Type Department Care Team Description 03/09/2017 Anesthesia [facility] Juan Carlos Bunch MD [facility] Radiology [address] [facility] [address] [place] [address] [place] [address] [phone] Anesthesia Record Procedure Name Responsible Anesthesia Start Time Anesthesia Stop Time Anesthesiologist IR ARTERIOGRAM NEURO Date Time Event Comment 1654 Proc Start 2017 Meds * No agents on file. * No blood administrations on file. Type Details Placement Removal AV 03/09/17; 1530; L; Arm, Lower 03/09/17 1530 by Leslye Shunt/Jasmeet Park (Bertha), TENZIN magalis Wounds 03/10/17; 1822; Right; Head; Surgical 03/10/17 1822 by Lou (NOT for Incision; sutures, xeroform, telfa, Laura, RN Pressure andria Injuries) Wounds 03/10/17; 2309; Abdomen; Surgical 03/10/17 2309 by Lou (NOT for Incision; sutures, telfa, tegaderm Laura, RN Pressure Injuries) Wounds 03/17/17; 0800; Right; [...] DO Event [address] [place] [address] [phone] 05/17/2017 Surgery Edgar Bee MD CRANIOPLASTY FOR RIGHT [address] [place] [address] RET[place] [address] FROM RIGHT ABDOMEN [phone] 05/17/2017 Procedure Pass 05/17/2017 Hospital Edgar Bee MD Brain aneurysm Encounter [address] [place] [address] as of this encounter Visit Diagnoses Not on filein this encounter
--- OUTSIDE RECORDS SUMMARY | 2017-05-07 16:40 | XMS REPORT | Encounter Summary ---
Author Author [facility] Organization [facility] Address Unknown Phone Unavailable Care Team Providers Care Supervisory Examiner Name Role Phone No Pcp, Na PCP Unavailable Encounter Details Date Type Department Care Team Description 03/09/2017 Ancillary Rad Outpatient, Radiologist Diagnosis unknown Orders [address] [place] [address] Social History Tobacco Use Types Packs/Day Years Used Date Never Assessed Sex Assigned at Date Recorded Not on file as of this encounter Plan of Treatment Date Type Specialty Care Team Description 05/03/2017 Anesthesia Hannah Acevedo, Event [address] [place] [address] [phone] 05/17/2017 Surgery Edgar Bee MD CRANIOPLASTY FOR RIGHT [address] [place] [address] [place] [address] FROM RIGHT ABDOMEN [phone] 05/17/2017 Procedure Pass 05/17/2017 Hospital Edgar Bee MD Brain aneurysm Encounter [address] [place] [address] [phone] as of this encounter Results * CT HEAD [...]
--- OUTSIDE RECORDS SUMMARY | 2017-05-07 16:40 | XMS REPORT | Encounter Summary ---
Author Author [facility] Organization [facility] Address Unknown Phone Unavailable Care Team Providers Care Cashier Office Name Role Phone No Pcp, Na PCP Unavailable Encounter Details Date Type Department Care Team Description 03/09/2017 Hospital [facility] Radiology [address] [place] [address] Social History Tobacco Use Types Packs/Day Years Used Date Never Assessed Sex Assigned at Date Recorded Not on file as of this encounter Medications at Time of Discharge Medication Sig. Disp. Refills Start Date End Date acetaminophen (TYLENOL) Take 2 tablets by mouth 0 03/26/2017 325 mg tablet every 4 hours as needed. melatonin 3 mg tab Take 1 tablet [...] Titration tablet towards home dose 200mg BID metoprolol XL (TOPROL XL) Take 200 mg by mouth 03/26/2017 200 mg extended release twice daily. tablet niMODipine (NIMOTOP) 30 Take 2 capsules by mouth 48 capsule 0 201603/30/2017 mg capsule every 4 hours for 4 days. nystatin (MYCOSTATIN) Take 5 mL by mouth four 0 03/26/2017 04/10/2017 100,000 units/mL oral times daily. suspension as of this encounter Plan of Treatment Date Type Specialty Care Team Description 05/03/2017 Anesthesia Hannah Acevedo, DO Event [address] [place] [address] [phone] 05/17/2017 Surgery Edgar Bee MD CRANIOPLASTY FOR RIGHT [address] [place] [address] [place] [address] FROM RIGHT ABDOMEN [phone] 05/17/2017 Procedure Pass 05/17/2017 Hospital Edgar Bee MD Brain aneurysm Encounter [address] [place] [address] as of this encounter Results * CT HEAD EXTERNAL IMAGING (03/09/2017 12:15 AM) Narrative This order has been auto finalized and does not contain a result. in this encounter Visit Diagnoses Diagnosis Diagnosis unknown Other unknown and unspecified cause of morbidity or mortality
--- OUTSIDE RECORDS SUMMARY | 2017-05-07 16:40 | XMS REPORT | Encounter Summary ---
Author Author [facility] Organization [facility] Address Unknown Phone Unavailable Care Team Providers Care Clinical Nursing Intern Name Role Phone No Pcp, Na PCP Unavailable Reason for Visit * Auth/Cert Status Reason Specialty Diagnoses / Referred By Referred To Procedures Contact Contact Diagnoses 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HCC) Brain aneurysm subarachnoid hemorrhage Subarachnoid bleed (HCC) Encounter Details Date Type Department Care Team Description 03/10/2017 Anesthesia CA Operating Room Flor Perez MD [address] [facility] [address] [place] [address] [place] [address] [place], [place] [id number] Anesthesia Record Procedure Name Responsible Anesthesia Start Time Anesthesia Stop Time Anesthesiologist Rt pterional craniotomy Binh Orosco MD 03/10/17 0827 03/10/17 1829 for clipping of MCA aneurysm (Right Head) Date Time Event Comment 745 AN Equip Check 2016 0827 Anes Start 0827 An Start Data 0830 An Induction The patient was reevaluated immediately before moderate or deep sedation use and before anesthesia induction. 0830 Quick Note Pt already intubated 0845 Anesthesia Ready 0859 Quick Note B bite blocks placed 0911 Antibiotic Given 0915 Quick Note Skin temp probe placed in R axilla 0919 Proc Start 1014 Stat Labs Drawn 1041 Quick Note Surgeon requests etco2 about 25 1129 Quick Note Lower body amado hugger plugged in 1130 Stat Labs Drawn 1212 Stat Labs Drawn Glucose finger stick (right toe) 90 1215 Q 30 1413 Quick Note SBP of 140mmHg PSR 1421 Stat Labs Drawn 1435 Temporary Clip On 1440 Temporary Clip Off 1511 Temporary Clip On 1519 Temporary Clip Off 1526 Temporary Clip On 1529 Quick Note Working gtts towards burst suppression 1541 Quick Note Surgeon request sbp 150 1548 Burst suppress 1551 Temporary Clip Surgeon request sbp 140 Off 1552 Quick Note Permanent clip placed 1555 Quick Note Request to come out of burst suppression 1606 An Data Art Decreased sat d/t indocyanine green 1636 Quick Note Surgeon declined third dose of antibiotic 1657 Stat Labs Drawn 181 an stop data 1818 Transport 1828 Handoff to RN I completed my SBAR handoff to the receiving nurse. 1828 An Stop Meds Name Total fentaNYL PF (SUBLIMAZE) injection 100 mcg propofol (DIPRIVAN) 10 mg/mL injection 100 mg rocuronium (ZEMURON) injection 10 mg dexamethasone (DECADRON) 4 mg/mL 4 mg injection remifentanil (ULTIVA) 1 mg/3 mL 1,000 3,142.23 mcg mcg in sodium chloride 0.9% (NS) 20 mL Injection phenylephrine (ARLINE-SYNEPHRINE) 0.1 mg/mL 150 mcg injection (SYRINGE) levETIRAcetam (KEPPRA) 500 mg in sodium 500 mg chloride 0.9% (NS) 100 mL IVPB propofol (DIPRIVAN) infusion 1,000 mg 2,756.65 mg niCARdipine (cardENE) 20 mg/NS 200 mL 2.58 mg infusion (std conc)(premade) ceFAZolin (ANCEF) injection 4 g phenylephrine (ARLINE-SYNEPHRINE) 10 mg in 15.77 mg sodium chloride 0.9% (NS) 250 mL IV drip (std conc) glycopyrrolate (ROBINUL) 0.2mg/mL 0.2 mg injection indocyanine green (ICY-GREEN) injection 57.5 mg sodium chloride 0.9 % infusion (1000 2,000 mL mL bag) albumin 5% infusion (500 mL) 500 mL electrolyte-A (PLASMA-LYTE A PH 7.4) 0 mL infusion * Name O2 N2O Inspired Air Sevoflurane Inspired Sevoflurane * Name Total DELIVER/TRANSFUSE RBCS (INTRAOP) 300 mL Type Details Placement Removal AV 03/09/17; 1530; L; Arm, Lower 03/09/17 1530 by Leslye Shunt/Jasmeet Barboza)TENZIN Wounds 03/10/17; 182; Right; Head; Surgical 03/10/171821 by Lou (NOT for Incision; sutures, xeroform, telfa, Laura, TENZIN Pressure andria Injuries) Indwelling 03/09/17; Present on Admission; 03/09/17 0000 by Dima 03/13 2300 by Anupama Urinary 03/13/17; 2300 TENZIN Hawkins, TENZIN Catheter NG/OG Tube 03/09/17 (placed at OSH); Left Nare; 03/09/17 0000 by Dima 03/12/17 1020 by Sita 03/12/17; 1020 TENZIN Hawkins, TENZIN Endotrache 03/09/17; 1236; Pre-hospital ET Tube; 03/09/17 [...] 0839 by Sandra 03/24/17 0803 by Yesenia IV Forearm; 16 G; 2; Dislodgement; MARIETTA Gann RN 03/24/17; 0803 Peripheral 03/10/17; 0841; R; Posterior; Forearm; 03/10/17 0841 by Sandra 03/11/17 0546 by Brittaney IV 16 G; 03/11/17; 0546 MARIETTA Gann RN [place] 03/10/17; 1751; Head; 10 FR; 03/13/17; 03/10/17 1751 by Lou 03/13/17 0000 by Brittaney Cedeño 0000 TENZIN Sanchez RN Drain in this encounter Social History Tobacco Use Types Packs/Day Years Used Date Never Assessed Sex Assigned at Date Recorded Not on file as of this encounter OR Notes * Anesthesia Postprocedure Evaluation - Binh Orosco MD - 03/10/2017 6:30 PM INSPECTOR CLIP ON SUNGLASSES Post-Anesthesia Evaluation Name: Naren Mayfield : 1965 Age: 51 y.o. 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 - Neuromonitoring, aneurysm clips, microscope, ICG, radiolucent [place] Surgeon: Surgeon(s): MD Edgar Maguire MD Post-Anesthesia Vitals BP: 127/89 (03/09 2030) Temp: 37 C (98.6 F) (03/10 0400) Pulse: 64 (12/03 0815) Respirations: 20 PER MINUTE (03/10 442) SpO2: 97 % (03/10 815) O2 Delivery: Endotracheal Tube (Oral) (03/10 700) SpO2 Pulse: 70 (03/10 800) Post Anesthesia Evaluation Note Evaluation location: ICU Patient participation: patient intubated, unable to assess; expectation of recovery by ICU physician Level of consciousness: intubated & sedated Hydration: normovolemia Temperature: 36.0C - 38.4C Perioperative Events Postoperative Status Cardiovascular status: hemodynamically stable Respiratory status: ETT Follow-up needed: none Additional comments: H/d stable during transport [facility] with monitors and O2. Present for transport MD Ana Luisa, MD David, MARIETTA Gann, Solomon, RT. Gtt's: Porpofol 50 mcg/kg/min Intra-Op: I's--> Zully: 2400 Colloid: Albumin 500ml, PRBC's 1u O's--> EBL 350, UO 30 Perioperative Events Perioperative Event: No Emergency Case Activation: No * Anesthesia Preprocedure Evaluation - Gabriel Jarrett MD - 03/10/2017 1:16 AM INSPECTOR CLIP ON SUNGLASSES Formatting of this note may be different from the original. Anesthesia Pre-Procedure Evaluation Name: Naren Mayfield : 1965 Age: 51 y.o. 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 - Neuromonitoring, aneurysm clips, microscope, ICG, Possible intraoperative angiogram, radiolucent [place] Physical Assessment Vital Signs (last filed in past 24 hours): BP: 127/89 (03/09 2030) ABP: 122/65 (03/10 17) ART MAP (Calculated) mm H mm Hg (03/09 1930) Temp: 36.9 C (98.4 F) (12/02 1845) Pulse: 74 (03/10 17) Respirations: 20 [...] Sandra Gann CRNA - 03/14/2017 11:01 AM INSPECTOR CLIP ON SUNGLASSES Formatting of this note may be different from the original. Addendum created 03/14/17 1101 by Sandra Gann CRNA Anesthesia Intra Meds edited in this encounter Plan of Treatment Date Type Specialty Care Team Description 05/03/2017 Anesthesia Hannah Acevedo DO Event [address] [place] [address] [place] [address] [phone] 05/17/2017 Surgery Edgar Bee MD CRANIOPLASTY FOR RIGHT [address] [place], [place] [address] RETRIEVAL [place] [address] FROM RIGHT ABDOMEN [phone] 05/17/2017 Procedure Pass 05/17/2017 Hospital Edgar Bee MD Brain aneurysm Encounter [address] [place], [place] [id number] as of this encounter Visit Diagnoses Not on filein this encounter Administered Medications Medication Order MAR Action Action Date Dose Rate Site albumin 5% infusion (500 mL) Given - New 03/10/2017 INTRA-PROCEDURE MED(CONT), Starting Sun Bag 12:06 INSPECTOR CLIP ON SUNGLASSES 03/10/17 at 1206, Until Discontinued, Anesthesia Intra-op ceFAZolin (ANCEF) injection Given 03/10/2017 2 g INTRA-PROCEDURE MED, Starting Sun 09:11 INSPECTOR CLIP ON SUNGLASSES 03/10/17 at 0911, Until Discontinued, Anesthesia Intra-op Given 03/10/2017 2 g 12:45 INSPECTOR CLIP ON SUNGLASSES DELIVER & TRANSFUSE RED BLOOD CELLS Given - New 03/10/2017 (INTRAOP ONLY) Bag 10:28 INSPECTOR CLIP ON SUNGLASSES STAT, On 03/10/17 at 1028, Lab Results Component Value Date HGB 9.0 (L) 03/10/2017 dexamethasone (DECADRON) injection Given 03/10/2017 4 mg Intravenous, INTRA-PROCEDURE MED, 12:13 INSPECTOR CLIP ON SUNGLASSES Starting 03/10/17 at 1213, Until Discontinued, Nausea/Vomiting Injectable, Anesthesia Intra-op electrolyte-A (PLASMA-LYTE A PH 7.4) Given - New 03/10/2017 injection Bag 14:25 INSPECTOR CLIP ON SUNGLASSES INTRA-PROCEDURE MED(CONT), Starting 03/10/17 at 1425, Until Discontinued, Anesthesia Intra-op fentaNYL citrate PF (SUBLIMAZE) Given 03/10/2017 100 mcg injection 17:55 INSPECTOR CLIP ON SUNGLASSES INTRA-PROCEDURE MED, Starting 03/10/17 at 1755, Until Discontinued, Pain Injectable, Anesthesia Intra-op glycopyrrolate (ROBINUL) injection Given 03/10/2017 0.2 mg INTRA-PROCEDURE MED, Starting Sun 11:06 INSPECTOR CLIP ON SUNGLASSES 03/10/17 at 1106, Until Discontinued, Secretions, Anesthesia Intra-op indocyanine green (IC GREEN) injection Given 03/10/2017 57.5 mg INTRA-PROCEDURE MED, Starting Sun 16:03 INSPECTOR CLIP ON SUNGLASSES 03/10/17 at 1603, Until Discontinued, Anesthesia Intra-op levETIRAcetam (KEPPRA) 500 mg in sodium Given - New 03/10/2017 500 mg chloride 0.9% (NS) 100 mL IVPB Bag 09:16 INSPECTOR CLIP ON SUNGLASSES 500 mg, Intravenous, 100 mL, Administer over 15 Minutes, INTRA-PROCEDURE MED(CONT), Starting [place] 03/10/17 at 0916, Until Discontinued, Anesthesia Intra-op niCARdipine (cardENE) 20 mg/NS 200 mL Given - New 03/10/2017 2.5 mg/hr 25 mL/hr infusion (std conc)(premade) Bag 08:30 INSPECTOR CLIP ON SUNGLASSES 200 mL, 20 mg, INTRA-PROCEDURE MED(CONT), Starting [place] 03/10/17 at 0830, Until Discontinued, Anesthesia Intra-op Dose/Rate Change 03/10/2017 1.25 mg/hr 12.5 mL/hr 09:30 INSPECTOR CLIP ON SUNGLASSES phenylephrine (ARLINE-SYNEPHRINE) 10 mg in Dose/Rate 03/10/2017 1.1 189.9 mL/hr sodium chloride 0.9% (NS) 250 mL IV drip Change 15:51 INSPECTOR CLIP ON SUNGLASSES mcg/kg/min (std conc) 10 mg 250 mL, INTRA-PROCEDURE MED(CONT), Starting [place] 03/10/17 at 0951, Until Discontinued, Anesthesia Intra-op Dose/Rate Change 03/10/2017 0.8 138.1 mL/hr 15:52 INSPECTOR CLIP ON SUNGLASSES mcg/kg/min Dose/Rate Change 03/10/2017 0.6 103.6 mL/hr 15:55 INSPECTOR CLIP ON SUNGLASSES mcg/kg/min phenylephrine in NS Injection Given 03/10/2017 100 mcg Intravenous, INTRA-PROCEDURE MED, 09:54 INSPECTOR CLIP ON SUNGLASSES Starting [place] 03/10/17 at 0954, Until Discontinued, Symptomatic Hypotension, Anesthesia Intra-op Given 03/10/2017 50 mcg 14:11 INSPECTOR CLIP ON SUNGLASSES propofol (DIPRIVAN) infusion 1,000 mg Dose/Rate 03/10/2017 125 86.3 mL/ hr 1,000 mg Change 15:44 INSPECTOR CLIP ON SUNGLASSES mcg/kg/min 100 mL, INTRA-PROCEDURE MED(CONT), Starting 03/10/17 at 0846, Until Discontinued, Anesthesia Intra-op Dose/Rate Change 03/10/2017 70 48.3 mL/hr 15:50 INSPECTOR CLIP ON SUNGLASSES mcg/kg/min Dose/Rate Change 03/10/2017 50 34.5 mL/hr 16:01 INSPECTOR CLIP ON SUNGLASSES mcg/kg/min propofol (DIPRIVAN) injection Given 03/10/2017 50 mg INTRA-PROCEDURE MED, Starting Sun 08:30 INSPECTOR CLIP ON SUNGLASSES 03/10/17 at 0830, Until Discontinued, Anesthesia Intra-op Given 03/10/2017 50 mg 08:55 INSPECTOR CLIP ON SUNGLASSES remifentanil (ULTIVA) 1 mg/3 mL 1,000 Given - New 03/10/2017 0.05 6.9 mL/hr mcg in sodium chloride 0.9% (NS) 20 mL Bag 09:23 INSPECTOR CLIP ON SUNGLASSES mcg/kg/min Injection Intravenous, INTRA-PROCEDURE MED(CONT), Starting [place] 03/10/17 at 0923, Until Discontinued, Anesthesia Intra-op rocuronium (ZEMURON) injection Given 03/10/2017 10 mg Intravenous, INTRA-PROCEDURE MED, 08:37 INSPECTOR CLIP ON SUNGLASSES Starting [place] 03/10/17 at 0837, Until Discontinued, Anesthesia Intra-op sodium chloride 0.9 % infusion Given - New 03/10/2017 INTRA-PROCEDURE MED(CONT), Starting [place] Bag 08:45 INSPECTOR CLIP ON SUNGLASSES 03/10/17 at 0845, Until Discontinued, Anesthesia Intra-op Given - New Bag 03/10/2017 11:05 INSPECTOR CLIP ON SUNGLASSES in this encounter
--- OUTSIDE RECORDS SUMMARY | 2017-05-07 16:40 | XMS REPORT | Encounter Summary ---
Author Author [facility] Organization [facility] Address Unknown Phone Unavailable Care Team Providers Care Insurance Sales Producer Name Role Phone No Pcp, Na PCP Unavailable Encounter Details Date Type Department Care Team Description 03/09/2017 Hospital [facility] Radiology [address] [place] [address] Social History Tobacco Use Types Packs/Day Years [...] DO Event [address] [place] [address] [phone] 05/17/2017 Surgery Edgar Bee MD CRANIOPLASTY FOR RIGHT [address] [place] [address] [place] [address] FROM RIGHT ABDOMEN [phone] 05/17/2017 Procedure Pass 05/17/2017 Hospital Edgar Bee MD Brain aneurysm Encounter [address] [place] [address] as of this encounter Results * GENERAL RAD CHEST EXTERNAL IMAGING (03/09/2017) Narrative This order has been auto finalized and does not contain a result. in this encounter Visit Diagnoses Diagnosis Diagnosis unknown Other unknown and unspecified cause of morbidity or mortality
--- OUTSIDE RECORDS SUMMARY | 2017-05-07 16:40 | XMS REPORT | Encounter Summary ---
Author Author [facility] Organization [facility] Address Unknown Phone Unavailable Care Team Providers Care Service Worker Helper Name Role Phone No Pcp, Na PCP Unavailable Encounter Details Date Type Department Care Team Description 03/09/2017 Prep for Case ADMITTING Faraz Hernandez MD [address] [place] [address] [address] [place] [address] [phone] Social History Tobacco Use Types Packs/Day Years Used Date Never Assessed Sex Assigned at Date Recorded Not on file as of this encounter Plan of Treatment Date Type Specialty Care Team Description 05/03/2017 Anesthesia Hannah Acevedo, DO Event [address] [place] [address] [phone] 05/17/2017 Surgery Edgar Bee MD CRANIOPLASTY FOR RIGHT [address] [place] [address] [place] [address] FROM RIGHT ABDOMEN [phone] 05/17/2017 Procedure Pass 05/17/2017 Hospital Edgar Bee MD Brain aneurysm Encounter [address] [place] [address] [phone] as of this encounter Visit Diagnoses Not on filein this encounter
--- OUTSIDE RECORDS SUMMARY | 2017-05-07 16:40 | XMS REPORT | Encounter Summary ---
Author Author [facility] Organization [facility] Address Unknown Phone Unavailable Care Team Providers Care Investment Sales Assistant Name Role Phone No Pcp, Na PCP Unavailable Encounter Details Date Type Department Care Team Description 03/09/2017 Procedure Pass CA[address] [place] [address] Social History Tobacco Use Types Packs/Day Years Used Date Never Assessed Sex Assigned at Date Recorded Not on file as of this encounter Plan of Treatment Date Type Specialty Care Team Description 05/03/2017 Anesthesia Hannah Acevedo, DO Event [address] [place] [address] [phone] 05/17/2017 Surgery Edgar Bee MD CRANIOPLASTY FOR RIGHT [address] [place] [address] [place] [address] FROM RIGHT ABDOMEN [phone] 05/17/2017 Procedure Pass 05/17/2017 Hospital Edgar Bee MD Brain aneurysm Encounter [address] [place] [address] [phone] as of this encounter Visit Diagnoses Not on filein this encounter
--- OUTSIDE RECORDS SUMMARY | 2017-05-07 16:43 | XMS REPORT | Continuity of Care Document ---
Author Author [facility] Address Unknown Phone Unavailable Allergies Active Description [...] THE TEETH AND SUPPORTING STRUCTURES 10/09/2007 KEREN BLACK TOP ROLLER, MAURY R 477.9 RHINITIS ALLERGIC 10/09/2007 KEREN BLACK TOP ROLLER, MAURY R 522.5 PERIAPICAL ABSCESS WITHOUT SINUS 10/09/2007 KEREN BLACK TOP ROLLER, MAURY R 525.9 UNSPECIFIED DISORDER OF THE [...] TEETH AND SUPPORTING STRUCTURES 10/09/2007 TSE PA-C, PATRICK M 477.9 RHINITIS ALLERGIC 10/09/2007 TSE PA-C, PATIRCK M 522.5 PERIAPICAL ABSCESS WITHOUT SINUS 10/09/2007 [...] ACKERMAN MD 724.5 BACKACHE UNSPECIFIED 10/21/2007 KEREN BLACK TOP ROLLER, MAURY R 719.46 PAIN IN JOINT INVOLVING [...] 796.2 BLOOD PRESSURE ISOLATED ELEVATED 09/20/2008 KEREN BLACK TOP ROLLER, MAURY R 250.00 DIABETES MELLITUS TYPE 2 09/20/2008 KEREN BLACK TOP ROLLER, MAURY R 796.2 BLOOD PRESSURE ISOLATED ELEVATED 09/20/2008 WEBER DO, NAY K 250.00 DIABETES MELLITUS TYPE 2 09/20/2008 WEBER DO, NAY K 796.2 BLOOD PRESSURE ISOLATED ELEVATED 09/20/2008 WEBER DO, NAY K 250.00 DIABETES MELLITUS TYPE 2 09/20/2008 WEBER DO, NAY K 796.2 BLOOD PRESSURE ISOLATED ELEVATED 09/20/2008 250.00 DIABETES MELLITUS TYPE 2 09/20/2008 796.2 BLOOD PRESSURE ISOLATED ELEVATED 09/20/2008 WEBER [...] 796.2 BLOOD PRESSURE ISOLATED ELEVATED 09/20/2008 PATRICK TES PA-C 250.00 DIABETES MELLITUS TYPE 2 09/20/2008 [...] MAURY VELIZ APRN 372.30 CONJUNCTIVITIS UNSPECIFIED 11/20/2008 WEEBR DO, NAY K 372.30 CONJUNCTIVITIS UNSPECIFIED 11/20/2008 WEBER DO, NAY K 372.30 CONJUNCTIVITIS UNSPECIFIED 11/20/2008 372.30 CONJUNCTIVITIS UNSPECIFIED 11/20/2008 WEBER DO, NAY K 372.30 CONJUNCTIVITIS UNSPECIFIED 11/20/2008 WEBER DO, NAY K 372.30 CONJUNCTIVITIS UNSPECIFIED 11/20/2008 PATRICK TSE PA-C 372.30 CONJUNCTIVITIS UNSPECIFIED 11/20/2008 PATRICK TSE PA-C 372.30 CONJUNCTIVITIS UNSPECIFIED 11/20/2008 WEBER DO, NAY K 372.30 CONJUNCTIVITIS UNSPECIFIED 12/30/2009 [...] APRN R 729.5 PAIN IN LIMB 01/11/2010 WEBER DO, [...] 368.8 OTHER SPECIFIED VISUAL DISTURBANCES 11/29/2011 MAURY VELIZ APRN 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 [...] DYSFUNCTION WITH INHIBITED SEXUAL EXCITEMENT 01/17/2012 KEREN BLACK TOP ROLLER, MAURY R 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 DYSFUNCTION WITH INHIBITED [...] CORONARY ATHEROSCLEROSIS OF UNSPECIFIED TYPE OF VESSEL [place] OR GRAFT 05/06/2014 PATRICK TSE PA-C 583.81 [...] CORONARY ATHEROSCLEROSIS OF UNSPECIFIED TYPE OF VESSEL [place] OR GRAFT 05/06/2014 NAY WEBER DO 583.81 [...] 06/09/2015 JONATHAN MOORE APRN Ot Z79.899 OTHER RETIREMENT (CURRENT) DRUG THERAPY 06/09/2015 JONATHAN MOORE APRN Ot Z99.2 DEPENDENCE ON RENAL DIALYSIS 03/09/2017 JOSE RAUL JONES, [facility] S Ot 585.4 CHRONIC KIDNEY DISEASE, STAGE IV (SEVERE 03/09/2017 KIZZY CHRISTOPHER MD (DDU) Ot V68.01 DISABILITY EXAMINATION 03/09/2017 KIZZY CHRISTOPHER MD (DDU) Ot V82.89 SCREEN FOR OTH SPECIF CONDITIONS 03/09/2017 SWATHI FRANCO MD, V Ot E11.22 TYPE 2 DIABETES MELLITUS W DIABETIC MECHANIC INSULATOR 03/09/2017 SWATHI FRANCO MD, V Ot E11.29 TYPE 2 DIABETES MELLITUS W OTH DIABETIC 03/09/2017 SWATIH FRANCO MD, V Ot 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, 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 03/09/2017 SWATHI FRANCO MD, V Ot E87.5 HYPERKALEMIA 03/09/2017 SWATHI FRANCO MD, V Ot I12.9 HYPERTENSIVE CHRONIC KIDNEY DISEASE W ST 03/09/2017 SWATHI FRANCO MD, V Ot N18.4 CHRONIC KIDNEY DISEASE, STAGE 4 (SEVERE) 03/09/2017 SIMI DODGE MD, Ot E11.9 TYPE 2 DIABETES MELLITUS WITHOUT COMPLIC 03/09/2017 SIMI DODGE MD Ot E78.00 PURE HYPERCHOLESTEROLEMIA, UNSPECIFIED 03/09/2017 SIMI DODGE MD Ot I10 ESSENTIAL (PRIMARY) HYPERTENSION 03/09/2017 SIMI DODGE MD Ot I60.9 NONTRAUMATIC SUBARACHNOID HEMORRHAGE, UN 03/09/2017 SIMI DODGE MD Ot R25.8 OTHER ABNORMAL INVOLUNTARY MOVEMENTS 03/09/2017 SIMI DODGE MD Ot Z99.2 DEPENDENCE ON RENAL DIALYSIS 03/12/2017 SIMI DODGE MD Ot E11.9 TYPE 2 DIABETES MELLITUS WITHOUT COMPLIC 03/12/2017 SIMI DODGE MD Ot E78.00 PURE HYPERCHOLESTEROLEMIA, UNSPECIFIED 03/12/2017 SIMI DODGE MD Ot I10 ESSENTIAL (PRIMARY) HYPERTENSION 03/12/2017 SIMI DODGE MD Ot I60.9 NONTRAUMATIC SUBARACHNOID HEMORRHAGE, UN 03/12/2017 SIMI DODGE MD Ot R25.8 OTHER ABNORMAL INVOLUNTARY MOVEMENTS 03/12/2017 SIMI DODGE MD Ot Z99.2 DEPENDENCE ON RENAL DIALYSIS 03/19/2017 SIMI DODGE MD Ot E11.9 TYPE 2 DIABETES MELLITUS WITHOUT COMPLIC 03/19/2017 SIMI DODGE MD Ot E78.00 PURE HYPERCHOLESTEROLEMIA, UNSPECIFIED 03/19/2017 SIMI DODGE MD Ot I10 ESSENTIAL (PRIMARY) HYPERTENSION 03/19/2017 SIMI DODGE MD Ot I60.9 NONTRAUMATIC SUBARACHNOID HEMORRHAGE, UN 03/19/2017 SIMI DODGE MD Ot R25.8 OTHER ABNORMAL INVOLUNTARY MOVEMENTS 03/19/2017 SIMI DODGE MD Ot Z99.2 DEPENDENCE ON RENAL DIALYSIS 03/29/2017 STACEY SIEGEL MD Ot D64.9 ANEMIA, UNSPECIFIED 03/29/2017 STACEY SIEGEL MD Ot E11.9 TYPE 2 DIABETES MELLITUS WITHOUT COMPLIC 03/29/2017 STACEY SIEGEL MD Ot E83.39 OTHER DISORDERS OF PHOSPHORUS METABOLISM 03/29/2017 STACEY SIEGEL MD E Ot I12.0 HYP CHR KIDNEY DISEASE W STAGE 5 CHR KID 03/29/2017 STACEY SIEGEL MD E Ot I69.391 DYSPHAGIA FOLLOWING CEREBRAL INFARCTION 03/29/2017 STACEY SIEGEL MD E Ot 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 03/29/2017 STACEY SIEGEL MD E Ot N18.6 END STAGE RENAL DISEASE 03/29/2017 STACEY SIEGEL MD Ot Z87.891 PERSONAL HISTORY OF NICOTINE DEPENDENCE 03/29/2017 STACEY SIEGEL MD E Ot Z99.2 DEPENDENCE ON RENAL DIALYSIS 03/29/2017 STACEY SIEGEL MD E Ot D64.9 ANEMIA, UNSPECIFIED 03/29/2017 STACEY SIEGEL MD E Ot E11.9 TYPE 2 DIABETES MELLITUS WITHOUT COMPLIC 03/29/2017 STACEY SIEGEL MD E Ot E83.39 OTHER DISORDERS OF PHOSPHORUS METABOLISM 03/29/2017 STACEY SIEGEL MD E Ot I12.0 HYP CHR KIDNEY DISEASE W STAGE 5 CHR KID 03/29/2017 STACEY SIEGEL MD E Ot I69.391 DYSPHAGIA FOLLOWING CEREBRAL INFARCTION 03/29/2017 STACEY SIEGEL MD E Ot 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 03/29/2017 STACEY SIEGEL MD E Ot N18.6 END STAGE RENAL DISEASE 03/29/2017 STACEY SIEGEL MD E Ot Z87.891 PERSONAL HISTORY OF NICOTINE DEPENDENCE 03/29/2017 STACEY SIEGEL MD E Ot Z99.2 DEPENDENCE ON RENAL DIALYSIS 04/03/2017 STACEY SIEGEL MD E Ot D64.9 ANEMIA, UNSPECIFIED 04/03/2017 STACEY SIEGEL MD E Ot E11.9 TYPE 2 DIABETES MELLITUS WITHOUT COMPLIC 04/03/2017 STACEY SIEGEL MD E Ot E83.39 OTHER DISORDERS OF PHOSPHORUS METABOLISM 04/03/2017 STACEY SIEGEL MD E Ot I12.0 HYP CHR KIDNEY DISEASE W STAGE 5 CHR KID 04/03/2017 STACEY SIEGEL MD E Ot I69.391 DYSPHAGIA FOLLOWING CEREBRAL INFARCTION 04/03/2017 STACEY SIEGEL MD E Ot 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 04/03/2017 STACEY SIEGEL MD E Ot N18.6 END STAGE RENAL DISEASE 04/03/2017 STACEY SIEGEL MD E Ot Z87.891 PERSONAL HISTORY OF NICOTINE DEPENDENCE 04/03/2017 STACEY SIEGEL MD E Ot Z99.2 DEPENDENCE ON RENAL DIALYSIS 04/03/2017 STACEY SIEGEL MD E Ot D64.9 ANEMIA, UNSPECIFIED 04/03/2017 STACEY SIEGEL MD E Ot E11.9 TYPE 2 DIABETES MELLITUS WITHOUT COMPLIC 04/03/2017 STACEY SIEGEL MD E Ot E83.39 OTHER DISORDERS OF PHOSPHORUS METABOLISM 04/03/2017 STACEY SIEGEL MD Ot I12.0 HYP CHR KIDNEY DISEASE W STAGE 5 CHR KID 04/03/2017 STACEY SIEGEL MD E Ot I69.391 DYSPHAGIA FOLLOWING CEREBRAL INFARCTION 04/03/2017 STACEY SIEGEL MD Ot 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 04/03/2017 STACEY SIEGEL MD Ot N18.6 END STAGE RENAL DISEASE 04/03/2017 STACEY SIEGEL MD E Ot Z87.891 PERSONAL HISTORY OF NICOTINE DEPENDENCE 04/03/2017 STACEY SIEGEL MD Ot Z99.2 DEPENDENCE ON RENAL DIALYSIS 04/03/2017 STACEY SIEGEL MD Ot D64.9 ANEMIA, UNSPECIFIED 04/03/2017 STACEY SIEGEL MD E Ot E11.9 TYPE 2 DIABETES MELLITUS WITHOUT COMPLIC 04/03/2017 STACEY SIEGEL MD E Ot E83.39 OTHER DISORDERS OF PHOSPHORUS METABOLISM 04/03/2017 STACEY SIEGEL MD Ot E87.70 FLUID OVERLOAD, UNSPECIFIED 04/03/2017 STACEY SIEGEL MD E Ot I12.0 HYP CHR KIDNEY DISEASE W STAGE 5 CHR KID 04/03/2017 STACEY SIEGEL MD Ot I69.391 DYSPHAGIA FOLLOWING CEREBRAL INFARCTION 04/03/2017 STACEY SIEGEL MD Ot J81.1 CHRONIC PULMONARY EDEMA 04/03/2017 STACEY SIEGEL MD Ot J90 PLEURAL EFFUSION, NOT ELSEWHERE CLASSIFI 04/03/2017 STACEY SIEGEL MD Ot 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 04/03/2017 STACEY SIEGEL MD Ot N18.6 END STAGE RENAL DISEASE 04/03/2017 STACEY SIEGEL MD Ot Z87.891 PERSONAL HISTORY OF NICOTINE DEPENDENCE 04/03/2017 STACEY SIEGEL MD Ot Z99.2 DEPENDENCE ON RENAL DIALYSIS Procedures Code [place] [address] PSYCH DIAGNOSTIC EVALUATION 05/19/2012 58944 PSYCHO TESTING 1 HR W COMP 07/01/2012 64614 PSYTX PT&/FAMILY 45 MINUTES 07/11/20122027F FOOT EXAM PERFORMED 04/09/2013 72447 MICROALBUMIN 04/09/2013 17293 A1C (IN-HOUSE) 04/09/2013 66827 MICRO ALBUMIN-IN HOUSE 04/09/2013 35091 ROUTINE VENIPUNCTURE 07/13/2013 8634168 GFR CALC (RESULT ONLY) 07/13/2013 54247 CMP 07/13/2013 2000F BLOOD PRESSURE CHECK 07/16/2013 64978 UA W/ CULTURE IF INDICATED 12/08/2013 FOOT EXAM PERFORMED 12/28/2013 89789 A1C (IN-HOUSE) 01/25/2014 08231 ROUTINE VENIPUNCTURE 03/09/2014 FOOT EXAM PERFORMED 03/09/2014 NEPHROLOG CAREN NEPHROLOGY, 03/09/2014 72689 CMP 03/09/2014 2826704 GFR CALC (RESULT ONLY) 03/09/2014 95422 ROUTINE VENIPUNCTURE 04/20/2014 26038 LIPID PANEL 04/20/2014 96044 ROUTINE VENIPUNCTURE 06/25/2014 86300 CBC 06/25/2014 89878 RENAL PROFILE 06/25/2014 26321 MAGNESIUM 06/25/2014 27726 URIC ACID 06/25/2014 2409354 GFR CALC (RESULT ONLY) 06/25/2014 11911 VITAMIN D 25-HYDROXY (D2,D3 , TOTAL) 06/25/2014 66584 CPK 06/25/2014 2396600 PTH INTACT ZEUS (RESULT ONLY) 06/25/2014 5597478 CALCIUM (RESULT ONLY) 06/25/2014 44720 URINE PROTEIN 24 HOUR 06/28/2014 [id number] URINE CREATININE CLEARANCE 24 06/28/2014 07738 PTH (intact) (ORDER ONLY) 06/29/2014 Results Test [...] 03/09/17 11:25 Blood monocytes/100 leukocytes 2 % [facility] Manual blood segmented neutrophils/100 leukocytes 93 % [facility] Manual blood lymphocytes/100 leukocytes 4 % [facility] Manual eosinophils/100 leukocytes in nose 1 % [facility] Blood erythrocyte morphology finding identification NORMAL [facility] Blood lactic acid measurement (moles/volume) - 03/09/17 11:28 Blood lactic acid measurement (moles/volume) 5.86 mmol/L 0.50-2.00 Bacterial blood culture - 03/09/17 11:28 QUANTITY OF GROWTH . [facility] Bacterial blood culture SEE COMMEN [facility] Complete urinalysis with reflex to culture - 03/09/17 11:39 Urine color determination YELLOW NR Urine clarity determination CLEAR [facility] Urine pH measurement by test strip 8 [...] PLUS NORMAL EVELIA NRG Bacterial sputum culture [id number] NRG Bacterial urine culture - 03/09/17 11:39 [...] 03/09/17 11:47 Bacterial blood culture NG NRG Capillary blood glucose measurement by glucometer (mass/volume) - 03/26/17 20: 30 Capillary blood glucose measurement by glucometer (mass/volume) 126 mg/dL 70-110 Capillary blood glucose measurement by glucometer (mass/volume) - 03/27/17 06: 42 Capillary blood glucose measurement by glucometer (mass/volume) 86 mg/dL 70-110 Complete blood count (CBC) with automated white blood cell (WBC) differential - 03/27/17 07:06 Blood leukocytes automated count (number/volume) 5.4 10*3/uL 4.3-11.0 Blood erythrocytes automated count (number/volume) 2.97 10*6/uL 4.35-5.85 Venous blood hemoglobin measurement (mass/volume) 9.1 g/dL 13.3-17.7 Blood hematocrit (volume fraction) 28 % 40-54 Automated erythrocyte mean corpuscular volume 95 [foz_us] 80-99 Automated erythrocyte mean corpuscular hemoglobin (mass per erythrocyte) 31 pg 25-34 Automated erythrocyte mean corpuscular hemoglobin concentration measurement ( mass/volume) 32 g/dL 32-36 Automated erythrocyte distribution width ratio 13.6 % 10.0-14.5 Automated blood platelet count (count/volume) 210 10*3/uL 130-400 Automated blood platelet mean volume measurement 9.7 [foz_us] 7.4-10.4 Automated blood neutrophils/100 leukocytes 81 % 42-75 Automated blood lymphocytes/100 leukocytes 7 % 12-44 Blood monocytes/100 leukocytes 9 % 0-12 Automated blood eosinophils/100 leukocytes 3 % 0-10 Automated blood basophils/100 leukocytes 1 % 0-10 Blood neutrophils automated count (number/volume) 4.4 10*3 1.8-7.8 Blood lymphocytes automated count (number/volume) 0.4 10*3 1.0-4.0 Blood monocytes automated count (number/volume) 0.5 10*3 0.0-1.0 Automated eosinophil count 0.2 10*3/uL 0.0-0.3 Automated blood basophil count (count/volume) 0.0 10*3/uL 0.0-0.1 Blood manual differential performed detection - 03/27/17 07:06 Blood monocytes/100 leukocytes 8 % NRG Manual blood segmented neutrophils/100 leukocytes 80 % NRG Manual blood lymphocytes/100 leukocytes 8 % NRG Manual eosinophils/100 leukocytes in nose 4 % NRG Blood rouleaux detection by light microscopy SLIGHT NRG Capillary blood glucose measurement by glucometer (mass/volume) - 03/27/17 12: 09 Capillary blood glucose measurement by glucometer (mass/volume) 99 mg/dL 70-110 Capillary blood glucose measurement by glucometer (mass/volume) - 03/27/17 17: 16 Capillary blood glucose measurement by glucometer (mass/volume) 119 mg/dL 70-110 Capillary blood glucose measurement by glucometer (mass/volume) - 03/27/17 20: 20 Capillary blood glucose measurement by glucometer (mass/volume) 154 mg/dL 70-110 Capillary blood glucose measurement by glucometer (mass/volume) - 03/28/17 06: 40 Capillary blood glucose measurement by glucometer (mass/volume) 104 mg/dL 70-110 Capillary blood glucose measurement by glucometer (mass/volume) - 03/28/17 20: 54 Capillary blood glucose measurement by glucometer (mass/volume) 116 mg/dL 70-110 Capillary blood glucose measurement by glucometer (mass/volume) - 03/29/17 05: 19 Capillary blood glucose measurement by glucometer (mass/volume) 115 mg/dL 70-110 Capillary blood glucose measurement by glucometer (mass/volume) - 03/29/17 11: 05 Capillary blood glucose measurement by glucometer (mass/volume) 105 mg/dL 70-110 Capillary blood glucose measurement by glucometer (mass/volume) - 03/29/17 16: 34 Capillary blood glucose measurement by glucometer (mass/volume) 98 mg/dL 70-110 Capillary blood glucose measurement by glucometer (mass/volume) - 03/29/17 21: 11 Capillary blood glucose measurement by glucometer (mass/volume) 88 mg/dL 70-110 Capillary blood glucose measurement by glucometer (mass/volume) - 03/30/17 05: 59 Capillary blood glucose measurement by glucometer (mass/volume) 83 mg/dL 70-110 Capillary blood glucose measurement by glucometer (mass/volume) - 03/30/17 16: 10 Capillary blood glucose measurement by glucometer (mass/volume) 118 mg/dL 70-110 Capillary blood glucose measurement by glucometer (mass/volume) - 03/30/17 21: 49 Capillary blood glucose measurement by glucometer (mass/volume) 117 mg/dL 70-110 Capillary blood glucose measurement by glucometer (mass/volume) - 03/31/17 05: 38 Capillary blood glucose measurement by glucometer (mass/volume) 116 mg/dL 70-110 Capillary blood glucose measurement by glucometer (mass/volume) - 03/31/17 10: 53 Capillary blood glucose measurement by glucometer (mass/volume) 149 mg/dL 70-110 Capillary blood glucose measurement by glucometer (mass/volume) - 03/31/17 16: 08 Capillary blood glucose measurement by glucometer (mass/volume) 170 mg/dL 70-110 Capillary blood glucose measurement by glucometer (mass/volume) - 03/31/17 21: 11 Capillary blood glucose measurement by glucometer (mass/volume) 117 mg/dL 70-110 Capillary blood glucose measurement by glucometer (mass/volume) - 04/01/17 06: 15 Capillary blood glucose measurement by glucometer (mass/volume) 103 mg/dL 70-110 Capillary blood glucose measurement by glucometer (mass/volume) - 04/01/17 11: 15 Capillary blood glucose measurement by glucometer (mass/volume) 113 mg/dL 70-110 Capillary blood glucose measurement by glucometer (mass/volume) - 04/01/17 17: 50 Capillary blood glucose measurement by glucometer (mass/volume) 114 mg/dL 70-110 Capillary blood glucose measurement by glucometer (mass/volume) - 04/01/17 20: 58 Capillary blood glucose measurement by glucometer (mass/volume) 115 mg/dL 70-110 Capillary blood glucose measurement by glucometer (mass/volume) - 04/02/17 04: 24 Capillary blood glucose measurement by glucometer (mass/volume) 128 mg/dL 70-110 Capillary blood glucose measurement by glucometer (mass/volume) - 04/02/17 15: 32 Capillary blood glucose measurement by glucometer (mass/volume) 128 mg/dL 70-110 Blood CBC with ordered manual differential panel - 04/02/17 15:33 Blood leukocytes automated count (number/volume) 6.2 10*3/uL 4.3-11.0 Blood erythrocytes automated count (number/volume) 2.44 10*6/uL 4.35-5.85 Venous blood hemoglobin measurement (mass/volume) 7.5 g/dL 13.3-17.7 Blood hematocrit (volume fraction) 23 % 40-54 Automated erythrocyte mean corpuscular volume 93 [foz_us] 80-99 Automated erythrocyte mean corpuscular hemoglobin (mass per erythrocyte) 31 pg 25-34 Automated erythrocyte mean corpuscular hemoglobin concentration measurement ( mass/volume) 33 g/dL 32-36 Automated erythrocyte distribution width ratio 13.3 % 10.0-14.5 Automated blood platelet count (count/volume) 113 10*3/uL 130-400 Automated blood platelet mean volume measurement 10.3 [foz_us] 7.4-10.4 Automated blood neutrophils/100 leukocytes 89 % 42-75 Automated blood lymphocytes/100 leukocytes 2 % 12-44 Blood monocytes/100 leukocytes 5 % NRG Automated blood eosinophils/100 leukocytes 0 % 0-10 Automated blood basophils/100 leukocytes 0 % 0-10 Blood neutrophils automated count (number/volume) 5.5 10*3 1.8-7.8 Blood lymphocytes automated count (number/volume) 0.2 10*3 1.0-4.0 Blood monocytes automated count (number/volume) 0.5 10*3 0.0-1.0 Automated eosinophil count 0.0 10*3/uL 0.0-0.3 Automated blood basophil count (count/volume) 0.0 10*3/uL 0.0-0.1 Manual blood segmented neutrophils/100 leukocytes 60 % NRG Blood band neutrophils/100 leukocytes 30 % NRG Manual blood lymphocytes/100 leukocytes 5 % NRG Manual eosinophils/100 leukocytes in nose 0 % NRG Manual blood basophils/100 leukocytes 0 % NRG Blood erythrocyte morphology finding identification NORMAL NRG Bacterial blood culture - 04/02/17 18:10 Bacterial blood culture NG NRG Bacterial blood culture - 04/02/17 18:15 Bacterial blood culture NG NRG Sputum Gram stain - 04/02/17 18:20 Sputum Gram stain Moderate # WBC's; mixed bacterial evelia NRG Bacterial sputum culture - 04/02/17 18:20 Bacterial sputum culture NORMAL NRG Capillary blood glucose measurement by glucometer (mass/volume) - 04/02/17 20: 26 Capillary blood glucose measurement by glucometer (mass/volume) 139 mg/dL 70-110 Capillary blood glucose measurement by glucometer (mass/volume) - 04/03/17 05: 04 Capillary blood glucose measurement by glucometer (mass/volume) 119 mg/dL 70-110 Blood CBC with ordered manual differential panel - 04/03/17 08:53 Blood leukocytes automated count (number/volume) 5.0 10*3/uL 4.3-11.0 Blood erythrocytes automated count (number/volume) 2.16 10*6/uL 4.35-5.85 Venous blood hemoglobin measurement (mass/volume) 6.6 g/dL 13.3-17.7 Blood hematocrit (volume fraction) 20 % 40-54 Automated erythrocyte mean corpuscular volume 94 [foz_us] 80-99 Automated erythrocyte mean corpuscular hemoglobin (mass per erythrocyte) 31 pg 25-34 Automated erythrocyte mean corpuscular hemoglobin concentration measurement ( mass/volume) 33 g/dL 32-36 Automated erythrocyte distribution width ratio 13.3 % 10.0-14.5 Automated blood platelet count (count/volume) 107 10*3/uL 130-400 Automated blood platelet mean volume measurement 10.3 [foz_us] 7.4-10.4 Automated blood neutrophils/100 leukocytes 84 % 42-75 Automated blood lymphocytes/100 leukocytes 5 % 12-44 Blood monocytes/100 leukocytes 5 % NRG Automated blood eosinophils/100 leukocytes 0 % 0-10 Automated blood basophils/100 leukocytes 0 % 0-10 Blood neutrophils automated count (number/volume) 4.2 10*3 1.8-7.8 Blood lymphocytes automated count (number/volume) 0.3 10*3 1.0-4.0 Blood monocytes automated count (number/volume) 0.5 10*3 0.0-1.0 Automated eosinophil count 0.0 10*3/uL 0.0-0.3 Automated blood basophil count (count/volume) 0.0 10*3/uL 0.0-0.1 Manual blood segmented neutrophils/100 leukocytes 80 % NRG Blood band neutrophils/100 leukocytes 9 % NRG Manual blood lymphocytes/100 leukocytes 6 % NRG Manual eosinophils/100 leukocytes in nose 0 % NRG Manual blood basophils/100 leukocytes 0 % NRG Blood anisocytosis detection by light microscopy SLIGHT [facility] Whole blood basic metabolic panel - 04/03/17 08:53 Serum or plasma sodium measurement (moles/volume) 134 mmol/L 135-145 Serum or plasma potassium measurement (moles/volume) 4.3 mmol/L 3.6-5.0 Serum or plasma chloride measurement (moles/volume) 90 mmol/L 98-107 Carbon dioxide 29 mmol/L 21-32 Serum or plasma anion gap determination (moles/volume) 15 mmol/L 5-14 Serum or plasma urea nitrogen measurement (mass/volume) 35 mg/dL 7-18 Serum or plasma creatinine measurement (mass/volume) 6.98 mg/dL 0.60-1.30 Serum or plasma urea nitrogen/creatinine mass ratio 5 NRG Serum or plasma creatinine measurement with calculation of estimated glomerular filtration rate 8 NRG Serum or plasma glucose measurement (mass/volume) 115 mg/dL 70-105 Serum or plasma calcium measurement (mass/volume) 9.3 mg/dL 8.5-10.1 Serum or plasma lithium measurement (moles/volume) - 04/03/17 08:53 BNP level 3496.9 pg/mL <100.0 Influenza virus A and B antigen detection - 04/03/17 10:05 FLU RESULT NEGATIVE FOR INFLUENZA A AND B ANTIGENS BY IA NRG Capillary blood glucose measurement by glucometer (mass/volume) - 04/03/17 11: 06 Capillary blood glucose measurement by glucometer (mass/volume) 122 mg/dL 70-110 Encounters ACCT No. Visit Date/Time Discharge Status Pt. Type Provider Facility Loc./Unit Complaint [id number] 06/25/2014 09:03:00 06/25/2014 23:59:59 CLS Outpatient NAY WEBER DO [id number] 04/29/2014 17:00:00 04/29/2014 23:59:59 CLS Outpatient PATRICK TSE PA-C [id number] 04/20/2014 10:24:00 04/20/2014 23:59:59 CLS Outpatient PATRICK TSE PA-C [id number] 03/09/2014 14:29:00 03/09/2014 23:59:59 CLS Outpatient NAY WEBER DO [id number] 01/25/2014 12:44:00 01/25/2014 23:59:59 CLS Outpatient NAY WEBER DO [id number] 01/14/2014 07:05:00 01/14/2014 23:59:59 CLS Outpatient [id number] 12/28/2013 12:27:00 12/28/2013 23:59:59 CLS Outpatient NAY WEBER DO [id number] 12/28/2013 10:17:00 12/28/2013 23:59:59 CLS Outpatient NAY WEBER DO [id number] 12/04/2013 15:39:00 12/04/2013 23:59:59 CLS Outpatient MAURY VELIZ APRN [id number] 07/16/2013 13:01:00 07/16/2013 23:59:59 CLS Outpatient NABIL ACKERMAN MD [id number] 04/09/2013 11:01:00 04/09/2013 23:59:59 CLS Outpatient NAY WEBER DO [id number] 02/16/2013 15:38:00 02/16/2013 23:59:59 CLS Outpatient MEKA JONES, NABIL [id number] 07/10/2012 09:51:00 07/10/2012 23:59:59 CLS Outpatient RED ROWAN PHD [id number] 07/04/2012 09:39:00 07/04/2012 23:59:59 CLS Outpatient [id number] 06/30/2012 08:50:00 06/30/2012 23:59:59 CLS Outpatient [id number] 05/16/2012 12:36:00 05/16/2012 23:59:59 CLS Outpatient RED ROWAN PHD [id number] 05/13/2012 14:27:00 05/13/2012 23:59:59 CLS Outpatient [id number] 01/17/2012 09:23:00 01/17/2012 23:59:59 CLS Outpatient NAY WEBER DO [id number] 03/26/2017 16:23:00 04/03/2017 12:00:00 DIS Inpatient CHRISTAL JONES, STACEY Silva [facility] IRF DEBILITY [id number] 03/09/2017 11:20:00 03/09/2017 14:08:00 DIS Emergency SIMI DODGE MD [facility] ER SEIZURE ACTIVITY [id number] 06/09/2015 12:07:00 06/09/2015 13:39:00 DIS Emergency JONATHAN MOORE APRN [facility] ER FALL/LEFT ELBOW INJURY [id number] 03/23/2015 08:37:00 03/23/2015 23:59:59 CLS Outpatient SWATHI FRANCO MD, V [facility] RAD CKD 4,HTN,HYPERKALEMIA, HYPERPARATHYROIDISM [id number] 03/15/2015 10:55:00 03/15/2015 23:59:59 CLS Preadmit SWATHI FRANCO MD, V [facility] LABNPT [id number] 02/27/2015 01:44:00 02/27/2015 05:17:00 DIS Emergency JESSICA DIAZ DO [facility] ER DIFFICULTY BREATHING HEARD A"POP" IN CHEST AREA [id number] 10/20/2014 12:47:00 10/20/2014 23:59:59 CLS Outpatient CANDI JONES, KIZZY Fernandez (DDU) [facility] RAD DDU [id number] 05/12/2014 10:34:00 05/12/2014 23:59:59 CLS Outpatient JOSE RAUL JONES, ADELIA Bermudez [facility] RAD CKD 4 [id number] 01/14/2014 19:25:00 01/14/2014 22:25:00 DIS Emergency DONNA SANTIAGO [facility] ER BACK PAIN [id number] 12/04/2013 17:51:00 12/05/2013 11:59:00 DIS Inpatient NAY WEBER DO [facility] ICU CHEST PAIN, HTN [id number] 07/13/2013 20:47:00 07/14/2013 01:40:00 DIS Emergency CARL JONES, PATRICK Melchor [facility] ER R EAR ACHE, UNABLE TO SWALLOW [id number] 02/14/2013 14:52:00 02/14/2013 18:58:00 DIS Emergency JESSICA DIAZ DO [facility] ER NOSE BLEEDING NON STOP [id number] 10/20/2014 12:46:00 Document Registration [id number] 03/14/2011 14:12:00 Document Registration
--- NOTE | 2017-05-07 16:49 | ED Cardiac General ---
History of Present Illness General Chief Complaint: Cardiac/General Problems Stated Complaint: ELEV BP Source: patient, retirement records Exam Limitations: no limitations History of Present Illness Date Seen by Provider: May 07, 2017 Time Seen by Provider: 16:38 Initial Comments Patient presents to ER from dialysis with chief complaint that his blood pressure was elevated after dialysis session. He has a history of stroke and aneurysm and has plans to go back in a couple weeks to have the surgeons at replace the skull in his scalp. Patient states he was at dialysis and she was pulling the needle out and cause a lot of pain and he said out and the regulatory and compliance technician said something which irritated him so he got mad and then his blood pressure went up. As far as he knows his blood pressure was normal at the beginning of the session. He says he is not in pain now. He denies any symptoms such as cough, shortness of breath, chest pain, swelling, nausea, abdominal pain , diarrhea, ear pain, sore throat, fever, chills. Patient says he has a history of COPD but has not been using his albuterol because he hasn't needed it. He is not on any anticholinergic. Allergies and Home Medications Allergies Coded Allergies: Radha Known Allergies (Verified Allergy, Unknown, 06/13/05) Home Medications Acetaminophen 325 Mg Tablet, 650 MG PO Q4H PRN for PAIN-MILD for 30 Days Prescribed by: LARISA STEVENS on 04/03/17 112 Albuterol Sulfate 18 Gm Hfa.aer.ad, 2 PUFF INH Q4H PRN for SHORTNESS OF BREATH, (Reported) Albuterol Sulfate 2.5 Mg/3 Ml Vial.neb, 2.5 MG INH Q4H PRN for SHORTNESS OF BREATH for 7 Days Prescribed by: LARISA STEVENS on 04/03/17 112 Amlodipine Besylate 10 Mg Tablet, 10 MG PO DAILY, (Reported) Atorvastatin Calcium 10 Mg Tablet, 10 MG PO HS, (Reported) Calcium Acetate 667 Mg Capsule, 667 MG PO UD PRN for WITH SNACKS for 30 Days Prescribed by: LARISA STEVENS on 04/03/17 112 Calcium Acetate 667 Mg Capsule, 1,334 MG PO TIDWM for 30 Days Prescribed by: LARISA STEVENS on 04/03/17 1128 Carboxymethylcellulose Sodium 1 Each Droperette, 1 EACH OU NEEDED PRN for DRY EYES for 30 Days Prescribed by: LARISA STEVENS on 04/03/171127 Clonidine HCl 0.1 Mg Tablet, 0.1 MG PO Q6HR PRN for BLOOD PRESSURE for 30 Days Prescribed by: LARISA STEVENS on 04/03/171127 Doxazosin Mesylate 8 Mg Tablet, 8 MG PO HS, (Reported) Ferric Citrate 210 Mg Tablet, 210 MG PO BID, (Reported) LAST FILLED #60 01-24-17 Heparin Sodium,Porcine 5,000 Unit/1 Ml Vial, 5,000 UNITS SC Q8H for 10 Days Prescribed by: LARISA STEVENS on 04/03/171127 Hydrocodone/Acetaminophen 1 Each Tablet, 1 TAB PO Q6H PRN for PAIN-MODERATE, ( Reported) Levetiracetam 1,000 Mg Tablet, 1,500 MG PO HS for 30 Days Prescribed by: LARISA STEVENS on 04/03/171127 Losartan Potassium 100 Mg Tablet, 100 MG PO DAILY for 30 Days Prescribed by: LARISA STEVENS on 04/03/171127 Melatonin 3 Mg Tablet, 3 MG PO HS for 30 Days Prescribed by: LARISA STEVENS on 04/03/171127 Metoprolol Succinate 200 Mg Tab.er.24h, 200 MG PO BID, (Reported) LAST FILLED #60 01-24-17 Nicotine 1 Each Patch.td24, 7 MG TD DAILY@0900 for 7 Days Prescribed by: LARISA STEVENS on 04/03/171127 Nystatin 100,000 Unit/1 Ml Oral.susp, 5 ML PO Q6H for 30 Days Prescribed by: LARSIA STEVENS on 04/03/171127 Quetiapine Fumarate 25 Mg Tablet, 50 MG PO BID for 30 Days Prescribed by: LARISA STEVENS on 04/03/171127 Sennosides/Docusate Sodium 1 Each Tablet, 1 EA PO BID for 30 Days Prescribed by: LARISA STEVENS on 04/03/171127 Review of Systems Constitutional: see HPI EENTM: See HPI Respiratory: See HPI Cardiovascular: Denies Chest Pain, Denies Palpitations, Denies Syncope Gastrointestinal: Denies Abdominal Pain, Denies Constipated, Denies Diarrhea, Denies Nausea Genitourinary: Denies Burning, Denies Discharge Musculoskeletal: No back pain, No joint pain Skin: No pruritus, No rash Psychiatric/Neurological: Denies Headache, Denies Numbness, Denies Paresthesia Past Fqhzprn-Blvmcp-Bbwlsa Hx Patient Social History Alcohol Use: Denies Use Recreational Drug Use: No Smoking Status: Former Smoker Type Used: Cigarettes Former Smoker, Quit: Mar 08, 2017 Recent Foreign Travel: No Contact w/Someone Who Travel: No Recent Hopitalizations: Yes Immunizations Up To Date Tetanus Booster (TDap): Unknown Date of Pneumonia Vaccine: Jan 06, 2017 Date of Influenza Vaccine: Jan 06, 2017 Seasonal Allergies Seasonal Allergies: No Surgeries History of Surgeries: Yes (CRANIOTOMY) Surgeries: Arteriovenous Shunt, Dialysis, Orthopedic Respiratory History of Respiratory Disorde: No Cardiovascular History of Cardiac Disorders: Yes Cardiac Disorders: High Cholesterol, Hypertension Neurological History of Neurological Disord: No Reproductive System Hx Reproductive Disorders: No Sexually Transmitted Disease: No HIV/AIDS: No Genitourinary Genitourinary Disorders: Renal Failure, Dialysis Gastrointestinal History of Gastrointestinal Di: No Musculoskeletal History of Musculoskeletal Dis: Yes (89 BACK INJURY) Musculoskeletal Disorders: Back Injury Endocrine History of Endocrine Disorders: Yes Endocrine Disorders: Diabetes, Non-Insulin dep HEENT History of HEENT Disorders: Yes (BLURRED VISION.) Loss of Vision: Denies Hearing Impairment: Denies Cancer History of Cancer: No Psychosocial History of Psychiatric Problem: No Integumentary History of Skin or Integumenta: No Blood Transfusions History of Blood Disorders: No Adverse Reaction to a Blood Tr: No Family Medical History Family Medial History: Abdominal aortic aneurysm 19 MOTHER Blood clots 19 MOTHER Diabetes mellitus 19 MOTHER FH: colon cancer 19 MOTHER FH: lung cancer 19 MOTHER Hypertension 19 MOTHER Physical Exam Vital Signs Vital Sign - Last 12Hours 05/07/17 16:39 Temp 98.5 Pulse 70 Resp 20 Pulse Ox 95 O2 Delivery Room Air Capillary Refill : General Appearance: No Apparent Distress, WD/WN, Other (happy, smiling, responsive) HEENT: PERRL/EOMI, TMs Normal, Normal ENT Inspection, Pharynx Normal (oral mucosa is moist) Neck: Full Range of Motion, Non Tender, Supple Respiratory: Chest Non Tender, No Accessory Muscle Use, No Respiratory Distress , Decreased Breath Sounds, Expiration, Wheezing (faint scattered diffuse) Cardiovascular: Regular Rate, Rhythm, No Edema, Normal Peripheral Pulses Gastrointestinal: Normal Bowel Sounds, Non Tender, Soft Extremity: Normal Capillary Refill, No Pedal Edema Neurologic/Psychiatric: Alert, Oriented x3, Other (patient reports stable deficits. Uses wheelchair) Skin: Normal Color, Warm/Dry Date of ETT Placement: Mar 09, 2017 Progress/Results/Core Measures Results/Orders Vital Signs/I&O Vital Sign - Last 12Hours 05/07/17 16:39 Temp 98.5 Pulse 70 Resp 20 B/P (MAP) Pulse Ox 95 O2 Delivery Room Air Progress Note #1: Time: 16:47 Progress Note Patient's blood pressure seemed to become a problem after he got irritated and had a little pain with withdrawal of a IV dialysis needle. We are going to let him rest for a minute and see if his blood pressure comes down before we launched into a large workup since he is otherwise review of system mcknight negative. With his recent history of stroke, hemorrhagic it is certainly a priority to keep his blood pressure and a normal range. I have talked to Aysha at [facility] and rehabilitation and requested recent sets of vitals see what he has been running as well as a med list. Progress Note #2: Time: 16:57 Progress Note skilled nursing records indicate the patient's on multiple blood pressure Medicines, beta ronaldo, calcium channel ronaldo, alpha, clonidine, hydralazine , Imdur, Lasix Departure Impression Impression: Primary Impression: Asymptomatic hypertensive urgency Disposition: 01 HOME, SELF-CARE Condition: Stable Departure-Patient Inst. Decision time for Depature: 17:32 Referrals: [facility] [place] (PCP/Family) Primary Care Physician Patient Instructions: Renovascular Hypertension (DC) Add. Discharge Instructions: Please take all of his blood pressure readings by manual cuff. Every day in the morning before he gets up and smokes, drinks or does anything else please check a blood pressure by manual cuff on his right arm and log that information for the next 2 weeks. At the end of that too weak. Please fax that information to his primary care physician, Dr. Ahuja. Return to care if he starts having chest pain or other strokelike symptoms or other worrisome symptoms. All discharge instructions reviewed with patient and/or family. Voiced understanding. Copy Copies To 1: IAIN AHUJA DO SABINE LEUNG May 07, 2017 16:49
[2017-05-07 17:41] VITALS: BP 162/92
== END 2017-05-07 17:41 | disposition home or self-care (01) ==
LOC: EDUNIT# 16:13 → ER 16:15
DX: I16.0 Hypertensive urgency (principal); J44.9 Chronic obstructive pulmonary disease, unspecified; E78.00 Pure hypercholesterolemia, unspecified; E11.22 Type 2 diabetes mellitus with diabetic chronic kidney disease; I12.0 Hypertensive chronic kidney disease with stage 5 chronic kidney disease or end stage renal disease; N18.6 End stage renal disease; Z79.01 Long term (current) use of anticoagulants; Z88.1 Allergy status to other antibiotic agents; Z87.891 Personal history of nicotine dependence; Z80.1 Family history of malignant neoplasm of trachea, bronchus and lung; Z80.0 Family history of malignant neoplasm of digestive organs; Z99.2 Dependence on renal dialysis; Z90.89 Acquired absence of other organs
CPT/HCPCS: 99283